=== PATIENT | female | born 1985 | race Caucasian/White ===

== ENCOUNTER 2021-06-20 06:29 | Observation (INO) ==
[2021-06-20] MEDS ORDERED: THIAMINE HCL 200 MG in SODIUM CHLORIDE 0.9% 50 ML IV STA (07:22)
[2021-06-20] MEDS ORDERED: FOLIC ACID 1 MG in SYRINGE 9.8 ML IV STA (07:22)
--- NOTE | 2021-06-20 07:28 | Emergency Department Note ---
Impression & Plan Abdominal pain, Alcohol abuse, Alcoholic hepatitis, Alcoholic pancreatitis ED Provider Note NAME: CARMEN BOUCHER AGE: 36 SEX: F : 1985 ARRIVES VIA: Walk-In INFORMANT: Patient ED PROVIDER(S): Zachary Wallace DO CHIEF COMPLAINT: coughing and diffuse body aches HPI: Patient is a 36-year-old alcoholic who presents the ER for cough and upper respiratory symptoms. She denies any shortness of breath. She notes when she coughs her whole body hurts including the sides of her chest and sides of her belly. She notes that her belly has gotten a little bit more swollen than it usually is. She denies any focal belly pain. She did have some vomiting this past Thursday and Thursday but that has resolved. No diarrhea. Normal bowel movements. No vaginal bleeding or vaginal discharge. No other exacerbating or remitting factors. ROS: See above HPI for pertinent positives & negatives. A total of 10 systems reviewed and were otherwise negative. PAST MEDICAL HISTORY:See Below PAST SURGICAL HISTORY:See Below FAMILY HISTORY:See Below SOCIAL HISTORY:See Below HOME MEDICATIONS:See Below ALLERGIES:See Below VITALS:See Below PHYSICAL EXAMINATION: GENERAL: Sitting up in bed, alert, well appearing, well nourished, no acute distress, nontoxic EYE EXAM: normal conjunctiva. PERRL and EOM's grossly intact. OROPHARYNX: no exudate, no erythema, lips, buccal mucosa, and tongue normal and mucous membranes are moist NECK: supple, no nuchal rigidity, no adenopathy, non-tender LUNGS: Clear to auscultation. Normal chest wall mechanics HEART: no murmurs, S1 normal and S2 normal ABDOMEN: abdomen soft, non-tender, normo-active bowel sounds, distended abdomen UPPER EXTREMITIES: upper extremities are grossly normal. LOWER EXTREMITIES: No pitting edema. NEURO EXAM: Normal sensorium, cranial nerves II-XII grossly intact, normal speech, no gross weakness of arms, no gross weakness of legs. MEDICAL DECISION MAKING: Patient is a 36-year-old female who presents the ER for abdominal pain. IV was established blood work was obtained. Labs show mild leukocytosis of 10,000. No significant anemia. INR was unremarkable. BMP with a hyponatremia 127 and a mild hypokalemia 2.8. LFTs were elevated at 100. Magnesium was slightly low at 1.6. Bilirubin was significantly elevated at 8. Lipase was elevated at 3000. was negative. Covid was negative. CT abdomen pelvis showed pancreatitis. Patient was given IV fluids IV morphine. She was updated bedside. Discussed with the hospitalist admitted for further work-up. Discussed with Pt concerning signs and symptoms to watch out for. Pt was instructed to follow up with their PCP and discussed with the patient their option to return to the ED at anytime for persistent or worsening symptoms. The appropriate anticipatory guidance and out-patient management, including indications for return to the emergency department, were explained at length to the patient and understood. Triage Nursing notes reviewed. Limited review of prior medical records performed Vital Signs: reviewed and remarkable for tachy Differential diagnosis: Differential diagnoses includes but is not limited to gastritis, peptic ulcer disease, GERD, gallbladder disease, pancreatitis, small bowel obstruction, acute coronary syndrome, pericarditis, ischemic bowel, irritable bowel disease, irritable bowel syndrome, appendicitis, diverticulitis, malignancy, hernia, urinary tract infection, torsion, /ectopic (if female), perforation, trauma, infectious. ER treatment provided: See below Diagnostics interpreted by me: ECG: none Cardiac Monitoring: An order was placed for continuous cardiac monitoring. The monitor shows a rate of 82 with sinus rhythm. Laboratory studies: As stated above and show below. Imaging studies: CT abdomen pelvis as discussed above Consultation(s): Discussed with the hospitalist for further evaluation Procedures: none Critical Care: None Past Med/Surg History Medical History ADD (attention deficit disorder) Alcohol abuse Anxiety Asthma Surgical History No significant past surgical history Family History Grandmother Breast cancer Grandfather Heart disease Social History (Updated 06/20/21 @ 12:20 by TIAN Branch) Smoking Status: Current some day smoker Tobacco Type: Cigarettes Hx Alcohol Use: Yes marital status: Single current occupational status: employed Feels Safe at Home: Yes Allergies Allergies Allergy/AdvReac Type Severity Reaction Status Date / Time Penicillins Allergy Unknown Unknown Verified 06/24/20 13:04 Home Meds Home Medications Medication Instructions Recorded Confirmed albuterol sulfate 90 mcg/actuation 1 inh INHALATION QID PRN 10/04/20 09/30/21 aerosol inhaler (ProAir HFA) bupropion HCl 300 mg 24 hr tablet, 300 mg PO QAM 06/24/20 06/20/21 extended release (Wellbutrin XL) buspirone 5 mg tablet 5 mg PO TID 06/24/20 06/20/21 budesonide-formoterol HFA 160 2 puff INHALATION BID 06/20/21 06/20/21 mcg-4.5 mcg/actuation aerosol inhaler (Symbicort) dextroamphetamine-amphetamine 5 mg 5 mg PO QDL 06/20/21 06/20/21 tablet (Adderall) dextroamphetamine-amphetamine 5 mg 10 mg PO DAILY 06/20/21 06/20/21 tablet (Adderall) ipratropium 0.5 mg-albuterol 3 mg 3 ml INHALATION Q4H PRN 06/20/21 06/20/21 (2.5 mg base)/3 mL nebulization soln ipratropium 20 mcg-albuterol 100 1 puff INHALATION BID 06/20/21 06/20/21 mcg/actuation mist for inhalation (Combivent Respimat) loratadine 10 mg tablet 10 mg PO DAILY 06/20/21 06/20/21 montelukast 10 mg tablet 10 mg PO HS 06/20/21 06/20/21 omeprazole 20 mg capsule,delayed 20 mg PO DAILY 06/20/21 06/20/21 release Results & Data (ED) Vital Signs Vital Signs - 24 hr 06/20/21 06:33 06/20/21 06:58 06/20/21 09:06 Temperature 37 C Temperature Source Temporal Artery Scan Pulse Rate 134 H 99 H Pulse Rate [Right Finger] Pulse Rate from SpO2 Sensor 98 H Respiratory Rate 20 20 Blood Pressure 113/82 133/89 Blood Pressure [Right Arm] Blood Pressure Mean 92 103 Blood Pressure Mean [Right Arm] Pulse Oximetry 99 99 Oxygen Delivery Method Room Air Room Air Sepsis Recent Fever Within 48 Hours No Sepsis New/Unexplained Change in Mental Status N/A Sepsis Action Taken by Nursing No Action Required 06/20/21 12:52 Temperature Temperature Source Pulse Rate Pulse Rate [Right Finger] 102 H Pulse Rate from SpO2 Sensor Respiratory Rate 20 Blood Pressure Blood Pressure [Right Arm] 132/95 Blood Pressure Mean Blood Pressure Mean [Right Arm] 107 Pulse Oximetry 99 Oxygen Delivery Method Room Air Sepsis Recent Fever Within 48 Hours Sepsis New/Unexplained Change in Mental Status Sepsis Action Taken by Nursing Laboratory Data Result diagrams: 06/20/21 07:47 06/20/21 07:47 Lab Results 06/20/21 06/20/21 06/20/21 Range/Units 07:29 07:47 07:47 WBC 10.96 H (4.8-10.8) K/uL RBC 4.30 (4.2-5.4) M/uL Hgb 15.4 (12.0-16.0) g/dL Hct 43.0 (37-47) % MCV 100.0 (80-100) fL MCH 35.8 H (25-34) pg MCHC 35.8 (32-36) g/dL RDW Std Deviation 44.5 (36.4-46.3) fL RDW Coeff of Yasmine 12.3 (11.5-14.5) % Plt Count 116 L (130-400) K/uL MPV 11.5 H (7.4-10.4) fL Immature Gran % (Auto) 0.3 % Neut % (Auto) 77.4 % Lymph % (Auto) 11.4 % [place] % (Auto) 10.2 % Eos % (Auto) 0.5 % Baso % (Auto) 0.2 % Neut # (Auto) 8.49 H (1.4-6.5) K/uL Lymph # (Auto) 1.25 (1.2-3.4) K/uL [place] # (Auto) 1.12 H (0.11-0.59) K/uL Eos # (Auto) 0.05 (0-0.5) K/uL Baso # (Auto) 0.02 (0-0.2) K/uL Immature Gran # (Auto) 0.03 H (0.00-0.02) K/uL PT (9.0-12.0) Seconds INR (0.9-1.1) APTT (21.0-31.0) Seconds PTT Ratio Sodium 127 L (136-145) mmol/L Potassium 2.8 L (3.5-5.1) mmol/L Chloride 88 L (98-107) mmol/L Carbon Dioxide 28 (21-32) mmol/L Anion Gap 12.0 H (3-11) BUN 5 L (7-18) mg/dl Creatinine 0.93 (0.6-1.2) mg/dl Est Cr Clr Drug Dosing 80.9 ml/min Est GFR ( Amer) 92.9 ml/min Est GFR (Non-Af Amer) 80.2 ml/min BUN/Creatinine Ratio 5.0 L (10-20) Glucose 180 H (70-99) mg/dl Calcium 8.7 (8.5-10.1) mg/dl Magnesium (1.8-2.4) mg/dl Total Bilirubin 8.7 H (0.2-1) mg/dl AST 194 H (15-37) U/L ALT 99 H (12-78) U/L Alkaline Phosphatase 192 H (45-117) U/L Total Protein 7.5 (6.4-8.2) gm/dl Albumin 3.0 L (3.4-5.0) gm/dl Globulin 4.5 H (2.5-4.0) gm/dl Albumin/Globulin Ratio 0.7 L (0.9-2) Lipase 3016 H (73-393) U/L Urine Color Urine Appearance (Clear) Urine pH (4.5-7.5) Ur Specific [place] (1.000-1.030) Urine Protein (Negative) Urine Glucose (UA) (Negative) Urine Ketones (Negative) Urine Blood (Negative) Urine Nitrite (Negative) Urine Bilirubin (Negative) Urine Urobilinogen (Negative) Ur Leukocyte Esterase (Negative) Urine RBC (0-4) /hpf Urine WBC (0-5) /hpf Ur Epithelial Cells (0-5) /lpf Urine Bacteria (Negative) POC Ur Test NEG (NEG) COVID-19 Eval Order SARS-CoV-2 (PCR) (Negative) 06/20/21 06/20/21 06/20/21 Range/Units 07:47 07:47 07:47 WBC (4.8-10.8) K/uL RBC (4.2-5.4) M/uL Hgb (12.0-16.0) g/dL Hct (37-47) % MCV (80-100) fL MCH (25-34) pg MCHC (32-36) g/dL RDW Std Deviation (36.4-46.3) fL RDW Coeff of Yasmine (11.5-14.5) % Plt Count (130-400) K/uL MPV (7.4-10.4) fL Immature Gran % (Auto) % Neut % (Auto) % Lymph % (Auto) % [place] % (Auto) % Eos % (Auto) % Baso % (Auto) % Neut # (Auto) (1.4-6.5) K/uL Lymph # (Auto) (1.2-3.4) K/uL [place] # (Auto) (0.11-0.59) K/uL Eos # (Auto) (0-0.5) K/uL Baso # (Auto) (0-0.2) K/uL Immature Gran # (Auto) (0.00-0.02) K/uL PT 11.6 (9.0-12.0) Seconds INR 1.2 H (0.9-1.1) APTT 25.7 (21.0-31.0) Seconds PTT Ratio 1.0 Sodium (136-145) mmol/L Potassium (3.5-5.1) mmol/L Chloride (98-107) mmol/L Carbon Dioxide (21-32) mmol/L Anion Gap (3-11) BUN (7-18) mg/dl Creatinine (0.6-1.2) mg/dl Est Cr Clr Drug Dosing ml/min Est GFR ( Amer) ml/min Est GFR (Non-Af Amer) ml/min BUN/Creatinine Ratio (10-20) Glucose (70-99) mg/dl Calcium (8.5-10.1) mg/dl Magnesium 1.6 L (1.8-2.4) mg/dl Total Bilirubin (0.2-1) mg/dl AST (15-37) U/L ALT (12-78) U/L Alkaline Phosphatase (45-117) U/L Total Protein (6.4-8.2) gm/dl Albumin (3.4-5.0) gm/dl Globulin (2.5-4.0) gm/dl Albumin/Globulin Ratio (0.9-2) Lipase (73-393) U/L Urine Color Urine Appearance (Clear) Urine pH (4.5-7.5) Ur Specific [place] (1.000-1.030) Urine Protein (Negative) Urine Glucose (UA) (Negative) Urine Ketones (Negative) Urine Blood (Negative) Urine Nitrite (Negative) Urine Bilirubin (Negative) Urine Urobilinogen (Negative) Ur Leukocyte Esterase (Negative) Urine RBC (0-4) /hpf Urine WBC (0-5) /hpf Ur Epithelial Cells (0-5) /lpf Urine Bacteria (Negative) POC Ur Test (NEG) COVID-19 Eval Order SARS-CoV-2 (PCR) (Negative) 06/20/21 06/20/21 06/20/21 Range/Units 07:48 11:14 11:14 WBC (4.8-10.8) K/uL RBC (4.2-5.4) M/uL Hgb (12.0-16.0) g/dL Hct (37-47) % MCV (80-100) fL MCH (25-34) pg MCHC (32-36) g/dL RDW Std Deviation (36.4-46.3) fL RDW Coeff of Yasmine (11.5-14.5) % Plt Count (130-400) K/uL MPV (7.4-10.4) fL Immature Gran % (Auto) % Neut % (Auto) % Lymph % (Auto) % [place] % (Auto) % Eos % (Auto) % Baso % (Auto) % Neut # (Auto) (1.4-6.5) K/uL Lymph # (Auto) (1.2-3.4) K/uL [place] # (Auto) (0.11-0.59) K/uL Eos # (Auto) (0-0.5) K/uL Baso # (Auto) (0-0.2) K/uL Immature Gran # (Auto) (0.00-0.02) K/uL PT (9.0-12.0) Seconds INR (0.9-1.1) APTT (21.0-31.0) Seconds PTT Ratio Sodium (136-145) mmol/L Potassium (3.5-5.1) mmol/L Chloride (98-107) mmol/L Carbon Dioxide (21-32) mmol/L Anion Gap (3-11) BUN (7-18) mg/dl Creatinine (0.6-1.2) mg/dl Est Cr Clr Drug Dosing ml/min Est GFR ( Amer) ml/min Est GFR (Non-Af Amer) ml/min BUN/Creatinine Ratio (10-20) Glucose (70-99) mg/dl Calcium (8.5-10.1) mg/dl Magnesium (1.8-2.4) mg/dl Total Bilirubin (0.2-1) mg/dl AST (15-37) U/L ALT (12-78) U/L Alkaline Phosphatase (45-117) U/L Total Protein (6.4-8.2) gm/dl Albumin (3.4-5.0) gm/dl Globulin (2.5-4.0) gm/dl Albumin/Globulin Ratio (0.9-2) Lipase (73-393) U/L Urine Color [place] Urine Appearance Cloudy A (Clear) Urine pH (4.5-7.5) Ur Specific [place] 1.022 (1.000-1.030) Urine Protein (Negative) Urine Glucose (UA) (Negative) Urine Ketones (Negative) Urine Blood (Negative) Urine Nitrite (Negative) Urine Bilirubin (Negative) Urine Urobilinogen (Negative) Ur Leukocyte Esterase (Negative) Urine RBC 0-4 (0-4) /hpf Urine WBC 10-30 H (0-5) /hpf Ur Epithelial Cells 5-10 H (0-5) /lpf Urine Bacteria 3+ H (Negative) POC Ur Test (NEG) COVID-19 Eval Order Covid19 at [facility] SARS-CoV-2 (PCR) NEGATIVE (Negative) Administered Medications Discontinued Medications Thiamine HCl 200 mg/ Sodium (Chloride) 52 mls @ 208 mls/hr IV NOW STA Stop: 06/20/21 07:36 Last Infusion: 06/20/21 09:20 Dose: 0 mls/hr Documented by: [id number] Admin: 06/20/21 08:51 Dose: 208 mls/hr Documented by: [id number] Folic Acid 1 mg/ Syringe 10 mls @ 5 mls/min IV NOW STA Stop: 06/20/21 07:23 Last Admin: 06/20/21 08:51 Dose: 5 mls/min Documented by: [id number] Ioversol (Optiray 320 100ml) 94 ml IV ONCE ONE Stop: 06/20/21 08:51 Last Admin: 06/20/21 08:51 Dose: 94 ml Documented by: [id number] Ketorolac Tromethamine (Ketorolac Tromethamine 15 Mg/Ml Vial) 10 mg IV NOW ONE Stop: 06/20/21 07:55 Last Admin: 06/20/21 08:52 Dose: 10 mg Documented by: [id number] Imaging Data Radiologist's Impression: Abdomen/Pelvis CT 06/20/21 07:22 CT abd pelvis IV con only CLINICAL HISTORY: abd pain COMPARISON STUDY: None. TECHNIQUE: A dose lowering technique was utilized adhering to the principles of ALARA. CT DOSE: 419.34 mGy.cm FINDINGS: Lower chest: Limited evaluation of lung bases shows no evidence of acute abnormalities.. Liver: Liver is mildly enlarged and shows diffuse decrease in attenuation of its parenchyma. No focal liver lesions or intrahepatic biliary dilatation is seen. Gallbladder: Is fluid-filled with mild diffuse mucosal enhancement. No pericholecystic edema is seen. Spleen: Normal in size and attenuation. Pancreas: Pancreatic folia are preserved however there is peripancreatic fat stranding and focal areas of decreased attenuation within pancreatic body is seen concerning for acute pancreatitis and possible development of the pancreatic necrosis. There is 3.7 x 4.7 cm area of possible fluid collection adjacent to distal aspect of the pancreatic tail and abutting nondilated loop of small bowel. There is small amount of fluid/fat stranding is seen extending from the pancreas to the right and left paracolic gutter and pelvic region. Common bile duct is normal in caliber without intraluminal calculi. Adrenal glands: Unremarkable. Kidneys: There is symmetric renal cortical enhancement. The kidneys are normal in size without hydronephrosis. Pelvic viscera: Urinary bladder is partially decompressed which limits evaluation. Uterus and adnexa shows no evidence of acute abnormalities. Small amount of fluid is seen within cul-de-sac which could be normal findings in premenopausal female however associated fat stranding surrounding urinary bladder and rectum could represent fluid extending from the upper abdomen inflammatory process. Bowel: Small fat containing hiatal hernia is seen. Bowel loops are nondilated. Appendix shows normal morphology and gas filled. Few diverticuli of sigmoid colon are seen without definite evidence of diverticulitis at this time. Small bilateral fat-containing inguinal hernias are seen. Peritoneum: There is no intraperitoneal free air or abdominal ascites. Vasculature: The abdominal aorta is normal in course and caliber. Adenopathy: None. Skeletal structures: There is mild thoracolumbar scoliosis with minimal degenerative changes of the spine. No definite aggressive osseous lesions are seen. IMPRESSION: 1. Acute pancreatitis. Peripancreatic edema and focal fluid collection. Possible development of the pancreatic necrosis. Short-term follow-up with contrast-enhanced CT of the abdomen in 5-7 days is suggested. Common bile duct is not significantly dilated. No radiodense calculi are seen within common bile duct. 2. Hepatomegaly. Hepatic steatosis. 3. Small fat containing hiatal hernia. 4. Nondilated loops of bowel. Normal appendix. 5. Mild diverticulosis of sigmoid colon without evidence of diverticulitis. 6. The rest of findings as above. ACT 112: Negative or not required by law. The above report was generated using voice recognition software. It may contain grammatical, syntax or spelling errors. Electronically signed by: Mariela Diaz DO 06/20/2021 9:35 AM Chest X-Ray 06/20/21 07:22 XR chest 1V portable HISTORY: 36 years-old Female cough acute cough COMPARISON: Chest radiograph 04/06/2006 TECHNIQUE: Portable AP view of the chest FINDINGS: Cardiomediastinal and hilar silhouettes are within normal limits. No pneumothorax, pleural effusion, airspace consolidation or overt pulmonary edema. Bones of the chest appear grossly intact. Mild levoscoliosis of the upper thoracic spine. No acute fracture. Healed chronic appearing fracture of the posterolateral left sixth rib. IMPRESSION: No acute process. ACT 112: Negative or not required by law. The above report was generated using voice recognition software. It may contain grammatical, syntax or spelling errors. Electronically signed by: Bud Madera M.D. 06/20/2021 7:43 AM Discharge Plan Visit Data Chief Complaint: Abdominal Pain Stated Complaint: STOMACH PAIN,COUGH,CONGESTION ED Provider: Zachary Wallace Discharge Problem: Abdominal pain, Alcohol abuse, Alcoholic hepatitis, Alcoholic pancreatitis Forms Stand Alone Forms: [facility] [employer] Prescriptions Prescriptions: No Action buspirone [BuSpar] 5 mg Tablet 5 mg PO TID RF: 0 bupropion HCl [Wellbutrin XL] 300 mg Tablet Extended Release 24 Hr 300 mg PO QAM RF: 0 albuterol sulfate [ProAir HFA] 90 mcg/actuation Hfa Aerosol Inhaler 1 inh INHALATION QID PRN (Reason: sob) RF: 0 omeprazole 20 mg Capsule,Delayed Release(Dr/Ec) 20 mg PO DAILY RF: 0 montelukast 10 mg Tablet 10 mg PO HS RF: 0 dextroamphetamine-amphetamine [Adderall] 5 mg Tablet 10 mg PO DAILY RF: 0 dextroamphetamine-amphetamine [Adderall] 5 mg Tablet 5 mg PO QDL RF: 0 loratadine 10 mg Tablet 10 mg PO DAILY RF: 0 budesonide-formoterol [Symbicort] 160-4.5 mcg/actuation Hfa Aerosol Inhaler 2 puff INHALATION BID RF: 0 Combivent Respimat 20-100 mcg/actuation Mist 1 puff INHALATION BID RF: 0 ipratropium-albuterol [DuoNeb] 0.5 mg-3 mg(2.5 mg base)/3 mL Solution For Nebulization 3 ml INHALATION Q4H PRN (Reason: Shortness Of Breath) RF: 0 Referrals Referrals: PCP,NO [Physician] -
--- NOTE | 2021-06-20 07:44 | XRay Report ---
XR chest 1V portable HISTORY: 36 years-old Female cough acute cough COMPARISON: Chest radiograph 04/06/2006 TECHNIQUE: Portable AP view of the chest FINDINGS: Cardiomediastinal and hilar silhouettes are within normal limits. No pneumothorax, pleural effusion, airspace consolidation or overt pulmonary edema. Bones of the chest appear grossly intact. Mild levos coliosis of the upper thoracic spine. No acute fracture. Healed chronic appearing fracture of the pos terolateral left sixth rib. IMPRESSION: No acute process. ACT 112: Negative or not required by law. The above report was generated using voice recognition software. It may contain grammatical, syntax o r spelling errors. Electronically signed by: Bud Madera M.D. 06/20/2021 7:43 AM
[2021-06-20] MEDS ORDERED: KETOROLAC TROMETHAMINE 15 MG/ML VIAL IV ONE (07:54)
[2021-06-20 08:03] LABS: Basophils # (auto) 0.02 K/uL (0-0.2); Basophils % (auto) 0.2 %; Eosinophils # (auto) 0.05 K/uL (0-0.5); Eosinophils % (auto) 0.5 %; Hemoglobin 15.4 g/dL (12.0-16.0); Immature Granulocytes # (auto) 0.03 K/uL (0.00-0.02); Immature Granulocytes % (auto) 0.3 %; Lymphocytes # (auto) 1.25 K/uL (1.2-3.4); Lymphocytes % (auto) 11.4 %; Mean Corpuscular Hemoglobin 35.8 pg (25-34); Mean Corpuscular Hgb Conc 35.8 g/dL (32-36); Mean Platelet Volume 11.5 fL (7.4-10.4); Monocytes # (auto) 1.12 K/uL (0.11-0.59); Monocytes % (auto) 10.2 %; Neutrophils # (auto) 8.49 K/uL (1.4-6.5); Neutrophils % (auto) 77.4 %; Platelet Count 116 K/uL (130-400); RDW Coefficient of Variation 12.3 % (11.5-14.5); RDW Standard Deviation 44.5 fL (36.4-46.3); White Blood Count 10.96 K/uL (4.8-10.8)
[2021-06-20 08:11] LABS: INR 1.2 (0.9-1.1); Prothrombin Time 11.6 Seconds (9.0-12.0)
[2021-06-20 08:39] LABS: Albumin Globulin Ratio 0.7 (0.9-2); Bilirubin,Total 8.7 mg/dl (0.2-1); Calcium 8.7 mg/dl (8.5-10.1); Creatinine Clr Calc Pharmacy 80.9 ml/min; Est GFR (African American) 92.9 ml/min; Est GFR (Non-African American) 80.2 ml/min; Globulin 4.5 gm/dl (2.5-4.0); Potassium 2.8 mmol/L (3.5-5.1); Total Protein 7.5 gm/dl (6.4-8.2)
[2021-06-20 08:48] LABS: Appearance Urine Cloudy (Clear); Color Urine Orange; Specific Gravity Urine 1.022 (1.000-1.030)
[2021-06-20] MEDS ORDERED: OPTIRAY 320 100ml IV ONE (08:50)
[2021-06-20 08:54] LABS: Bacteria Urine 3+ (Negative); RBC Urine 0-4 /hpf (0-4)
--- NOTE | 2021-06-20 09:36 | CT Scan Report ---
CT abd pelvis IV con only CLINICAL HISTORY: abd pain COMPARISON STUDY: None. TECHNIQUE: A dose lowering technique was utilized adhering to the principles of ALARA. CT DOSE: 419.34 mGy.cm FINDINGS: Lower chest: Limited evaluation of lung bases shows no evidence of acute abnormalities.. Liver: Liver is mildly enlarged and shows diffuse decrease in attenuation of its parenchyma. No focal liver lesions or intrahepatic biliary dilatation is seen. Gallbladder: Is fluid-filled with mild diffuse mucosal enhancement. No pericholecystic edema is seen. Spleen: Normal in size and attenuation. Pancreas: Pancreatic folia are preserved however there is peripancreatic fat stranding and focal area s of decreased attenuation within pancreatic body is seen concerning for acute pancreatitis and possi ble development of the pancreatic necrosis. There is 3.7 x 4.7 cm area of possible fluid collection adjacent to distal aspect of the pancreatic t ail and abutting nondilated loop of small bowel. There is small amount of fluid/fat stranding is seen extending from the pancreas to the right and lef t paracolic gutter and pelvic region. Common bile duct is normal in caliber without intraluminal calculi. Adrenal glands: Unremarkable. Kidneys: There is symmetric renal cortical enhancement. The kidneys are normal in size without hydron ephrosis. Pelvic viscera: Urinary bladder is partially decompressed which limits evaluation. Uterus and adnexa shows no evidence of acute abnormalities. Small amount of fluid is seen within cul-de-sac which could be normal findings in premenopausal female however associated fat stranding surrounding urinary blad edith and rectum could represent fluid extending from the upper abdomen inflammatory process. Bowel: Small fat containing hiatal hernia is seen. Bowel loops are nondilated. Appendix shows normal morphology and gas filled. Few diverticuli of sigmoid colon are seen without definite evidence of div erticulitis at this time. Small bilateral fat-containing inguinal hernias are seen. Peritoneum: There is no intraperitoneal free air or abdominal ascites. Vasculature: The abdominal aorta is normal in course and caliber. Adenopathy: None. Skeletal structures: There is mild thoracolumbar scoliosis with minimal degenerative changes of the s pine. No definite aggressive osseous lesions are seen. IMPRESSION: 1. Acute pancreatitis. Peripancreatic edema and focal fluid collection. Possible development of the pancreatic necrosis. Short-term follow-up with contrast-enhanced CT of the abdomen in 5-7 days is sug gested. Common bile duct is not significantly dilated. No radiodense calculi are seen within common b ile duct. 2. Hepatomegaly. Hepatic steatosis. 3. Small fat containing hiatal hernia. 4. Nondilated loops of bowel. Normal appendix. 5. Mild diverticulosis of sigmoid colon without evidence of diverticulitis. 6. The rest of findings as above. ACT 112: Negative or not required by law. The above report was generated using voice recognition software. It may contain grammatical, syntax o r spelling errors. Electronically signed by: Mariela Diaz DO 06/20/2021 9:35 AM
[2021-06-20] MEDS ORDERED: MoRPHine SULFATE 4 MG/ML 1 ML CARP\\VIAL IV STA (10:00)
[2021-06-20] MEDS ORDERED: POTASSIUM CHLORIDE CRTAB 20 MEQ TABCR PO STA ×2 (10:13→19:15)
[2021-06-20 10:27] LABS: Partial Thromboplastin Time 25.7 Seconds (21.0-31.0)
--- NOTE | 2021-06-20 12:06 | History & Physical Report ---
Date of Service June 20, 2021 Assessment & Plan (1) Alcoholic hepatitis: (2) Alcoholic pancreatitis: Plan: -Admit to [facility] with telemetry -Patient presenting from home with reports of abdominal pain, nausea, vomiting x 3 days -In the ED, labs show transaminitis (T bili 8.7, AST 194, ALT 89, alk phos 192), lipase 3000 -CT ABD/pelvis shows acute pancreatitis. Peripancreatic edema and focal fluid collection. Possible development of the pancreatic necrosis. Short-term follow- up with contrast-enhanced CT of the abdomen in 5-7 days is suggested. -Currently hemodynamically stable, afebrile, minimal leukocytosis WBC 10.9K -Discriminant function score <32, no indication for steroids at this time -N.p.o., LR at 200 cc/hour, pain control -GI consult, case discussed with TIAN English (3) Alcohol abuse: Plan: -Patient reports a longstanding history of alcoholism, requiring hospitalization 4 to 5 years ago in [place] for alcohol hepatitis. Patient reports going to inpatient rehab following that hospitalization and had remained sober until last year during the COVID-19 pandemic. Patient reports another inpatient rehab stay in July 2020 and had been sober since. Patient reports celebrating the [employer] football game a couple of weeks ago and has been drinking daily since. She reports drinking a half a bottle of " 99 liquor" a day. -Last drink > 72 hours ago, not exhibiting signs of significant alcohol withdrawal at this time -Thiamine and folic acid -Alcohol withdrawal protocol with as needed Ativan (4) Electrolyte abnormality: Plan: -Na+ 127, K+ 2.8; check Mg+ -Due to alcohol abuse, GI losses with vomiting -Replace, follow electrolytes (5) Abnormal urinalysis: Plan: Suggest possible UTI -Start IV ceftriaxone, follow culture (6) Asthma: Plan: -No signs of acute exacerbation, continue home inhalers (7) ADD (attention deficit disorder): (8) Anxiety: Plan: -Continue home medications including bupropion, Adderall, buspirone -Patient reports difficulty in setting up outpatient psychiatry appointment - mental health liaison consulted (9) DVT prophylaxis: Plan: -SCDs History of Present Illness Chief Complaint: Abdominal pain, nausea, vomiting Primary Care Provider: Zaina Bunch MD 36-year-old female with PMH asthma, ADD, anxiety, alcoholism, and other problems listed below who presents the ED for evaluation abdominal pain, nausea, vomiting. Patient reports a longstanding history of alcoholism, requiring hospitalization 4 to 5 years ago in [place] for alcohol hepatitis. Patient reports going to inpatient rehab following that hospitalization and had remained sober until last year during the COVID-19 pandemic. Patient reports another inpatient rehab stay in July 2020 and had been sober since. Patient reports celebrating the [employer] football game a couple of weeks ago and has been drinking daily since. She reports drinking a half a bottle of " 99 liquor" a day. 3 days ago, she reports she developed generalized abdominal pain, nausea, vomiting. She denies hematemesis and coffee-ground emesis. No diarrhea, bright red bleeding per rectum, dark tarry stools. Patient stopped drinking when she started to get sick. She reports some mild intermittent tremors. No chest pain or shortness of breath. Reports a mild cough productive for clear sputum. No fevers or chills. Denies urinary symptoms. In the ED, labs show Na+ 127, K+ 2.8, transaminitis (T bili 8.7, AST 194, ALT 99, alk phos 192). CT ABD/pelvis shows acute pancreatitis. Peripancreatic edema and focal fluid collection. Possible development of the pancreatic necrosis. UA suggest possible UTI. Patient was given IV folic acid, IV ketorolac, IV morphine, IV thiamine. Allergies Allergy/AdvReac Type Severity Reaction Status Date / Time Penicillins Allergy Unknown Unknown Verified 06/24/20 13:04 Home Medications Medication Instructions Recorded Confirmed Type albuterol sulfate 90 mcg/actuation 1 inh INHALATION QID PRN 06/24/20 06/20/21 History aerosol inhaler (ProAir HFA) bupropion HCl 300 mg 24 hr tablet, 300 mg PO QAM 06/24/20 06/20/21 History extended release (Wellbutrin XL) buspirone 5 mg tablet 5 mg PO TID 06/24/20 06/20/21 History budesonide-formoterol HFA 160 2 puff INHALATION BID 06/20/21 06/20/21 History mcg-4.5 mcg/actuation aerosol inhaler (Symbicort) dextroamphetamine-amphetamine 5 mg 5 mg PO QDL 06/20/21 06/20/21 History tablet (Adderall) dextroamphetamine-amphetamine 5 mg 10 mg PO DAILY 06/20/21 06/20/21 History tablet (Adderall) ipratropium 0.5 mg-albuterol 3 mg 3 ml INHALATION Q4H PRN 06/20/21 06/20/21 History (2.5 mg base)/3 mL nebulization soln ipratropium 20 mcg-albuterol 100 1 puff INHALATION BID 06/20/21 06/20/21 History mcg/actuation mist for inhalation (Combivent Respimat) loratadine 10 mg tablet 10 mg PO DAILY 06/20/21 06/20/21 History montelukast 10 mg tablet 10 mg PO HS 06/20/21 06/20/21 History omeprazole 20 mg capsule,delayed 20 mg PO DAILY 06/20/21 06/20/21 History release Past Med/Surg History Medical History ADD (attention deficit disorder) Alcohol abuse Anxiety Asthma Surgical History No significant past surgical history Family History Grandmother Breast cancer Grandfather Heart disease Social History (Updated 06/20/21 @ 12:20 by TIAN Branch) Smoking Status: Current some day smoker Tobacco Type: Cigarettes Second Hand Exposure: No; Do You Dip or Chew Tobacco: No; Tobacco Cessation Education Requested by Patient: No Hx Alcohol Use: Yes Alcohol type: hard liquor Hx Substance Use: No Preferred Language: Welsh 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 Ability: Effective Inlayer Required: No Beliefs That Will Affect Care: None marital status: Single Current Living Situation: Significant Other current occupational status: employed Other Information That Helps Us Care for You: No Feels Safe at Home: Yes Safety Concerns: Feels Safe At This Time Assistive Devices: Glasses Review of Systems Review of Systems: ROS per HPI, all other systems reviewed and negative Physical Exam Constitutional: WD/WN, vitals as above Eyes: + scleral abnormality (Sclera icteric) and PERRL; no conjunctival abnormality ENMT: external ear and nose normal, oropharynx normal Respiratory: normal respiratory effort, lungs clear to auscultation Cardiovascular: Rate/Rhythm: regular rhythm and + tachycardic Vessels: normal peripheral pulses Extremities: no edema Gastrointestinal (Abdomen): Inspection/Auscultation: normal bowel sounds Percussion/Palpation: + abdomen tender (Epigastric) and abdomen soft; no hepatosplenomegaly Musculoskeletal: no cyanosis or clubbing, extremities motor strength 5/5 Skin: no rashes, warm and dry Neurologic: PERRL, EOMI, accommodation nl, no face palsy, no dysarthria Psychiatric: A+Ox3, euthymic affect Results & Data Results & Data ([facility]) Vital Signs (Past 12 Hours) Vital Signs Temp Pulse Resp BP Pulse Ox 06/20/21 09:06 99 H 20 133/89 99 06/20/21 06:33 37 C 134 H 20 113/82 99 Laboratory Results Short CBC 06/20/21 06/20/21 06/20/21 Range/Units 07:47 07:47 07:47 WBC 10.96 H (4.8-10.8) K/uL Hgb 15.4 (12.0-16.0) g/dL Hct 43.0 (37-47) % Plt Count 116 L (130-400) K/uL PT 11.6 (9.0-12.0) Seconds APTT 25.7 (21.0-31.0) Seconds Urine Nitrite (Negative) 06/20/21 Range/Units 07:48 WBC (4.8-10.8) K/uL Hgb (12.0-16.0) g/dL Hct (37-47) % Plt Count (130-400) K/uL PT (9.0-12.0) Seconds APTT (21.0-31.0) Seconds Urine Nitrite (Negative) [facility] 06/20/21 07:47 Sodium 127 L Potassium 2.8 L Chloride 88 L Carbon Dioxide 28 BUN 5 L Creatinine 0.93 Glucose 180 H Calcium 8.7 Liver Function 06/20/21 Range/Units 07:47 Total Bilirubin 8.7 H (0.2-1) mg/dl AST 194 H (15-37) U/L ALT 99 H (12-78) U/L Alkaline Phosphatase 192 H (45-117) U/L Albumin 3.0 L (3.4-5.0) gm/dl Urine 06/20/21 Range/Units 07:48 Urine Color [place] Urine Appearance Cloudy A (Clear) Urine pH (4.5-7.5) Ur Specific [place] 1.022 (1.000-1.030) Urine Protein (Negative) Urine Glucose (UA) (Negative) Diagnostic Findings Abdomen/Pelvis CT 06/20/21 07:22 CT abd pelvis IV con only CLINICAL HISTORY: abd pain COMPARISON STUDY: None. TECHNIQUE: A dose lowering technique was utilized adhering to the principles of ALARA. CT DOSE: 419.34 mGy.cm FINDINGS: Lower chest: Limited evaluation of lung bases shows no evidence of acute abnormalities.. Liver: Liver is mildly enlarged and shows diffuse decrease in attenuation of its parenchyma. No focal liver lesions or intrahepatic biliary dilatation is seen. Gallbladder: Is fluid-filled with mild diffuse mucosal enhancement. No pericholecystic edema is seen. Spleen: Normal in size and attenuation. Pancreas: Pancreatic folia are preserved however there is peripancreatic fat stranding and focal areas of decreased attenuation within pancreatic body is seen concerning for acute pancreatitis and possible development of the pancreatic necrosis. There is 3.7 x 4.7 cm area of possible fluid collection adjacent to distal aspect of the pancreatic tail and abutting nondilated loop of small bowel. There is small amount of fluid/fat stranding is seen extending from the pancreas to the right and left paracolic gutter and pelvic region. Common bile duct is normal in caliber without intraluminal calculi. Adrenal glands: Unremarkable. Kidneys: There is symmetric renal cortical enhancement. The kidneys are normal in size without hydronephrosis. Pelvic viscera: Urinary bladder is partially decompressed which limits evaluation. Uterus and adnexa shows no evidence of acute abnormalities. Small amount of fluid is seen within cul-de-sac which could be normal findings in premenopausal female however associated fat stranding surrounding urinary bladder and rectum could represent fluid extending from the upper abdomen inflammatory process. Bowel: Small fat containing hiatal hernia is seen. Bowel loops are nondilated. Appendix shows normal morphology and gas filled. Few diverticuli of sigmoid colon are seen without definite evidence of diverticulitis at this time. Small bilateral fat-containing inguinal hernias are seen. Peritoneum: There is no intraperitoneal free air or abdominal ascites. Vasculature: The abdominal aorta is normal in course and caliber. Adenopathy: None. Skeletal structures: There is mild thoracolumbar scoliosis with minimal degenerative changes of the spine. No definite aggressive osseous lesions are seen. IMPRESSION: 1. Acute pancreatitis. Peripancreatic edema and focal fluid collection. Possible development of the pancreatic necrosis. Short-term follow-up with contrast-enhanced CT of the abdomen in 5-7 days is suggested. Common bile duct is not significantly dilated. No radiodense calculi are seen within common bile duct. 2. Hepatomegaly. Hepatic steatosis. 3. Small fat containing hiatal hernia. 4. Nondilated loops of bowel. Normal appendix. 5. Mild diverticulosis of sigmoid colon without evidence of diverticulitis. 6. The rest of findings as above. ACT 112: Negative or not required by law. The above report was generated using voice recognition software. It may contain grammatical, syntax or spelling errors. Electronically signed by: Mariela Diaz DO 06/20/2021 9:35 AM Chest X-Ray 06/20/21 07:22 XR chest 1V portable HISTORY: 36 years-old Female cough acute cough COMPARISON: Chest radiograph 04/06/2006 TECHNIQUE: Portable AP view of the chest FINDINGS: Cardiomediastinal and hilar silhouettes are within normal limits. No pneumothorax, pleural effusion, airspace consolidation or overt pulmonary edema. Bones of the chest appear grossly intact. Mild levoscoliosis of the upper thoracic spine. No acute fracture. Healed chronic appearing fracture of the posterolateral left sixth rib. IMPRESSION: No acute process. ACT 112: Negative or not required by law. The above report was generated using voice recognition software. It may contain grammatical, syntax or spelling errors. Electronically signed by: Bud Madera M.D. 06/20/2021 7:43 AM Code Status & VTE Plan VTE Prophylaxis Plan VTE Prophylaxis will be ordered: Yes Supervising Physician Co-Signing Physician Notes Patient seen and examined by me, care coordinated with TIAN Branch, please refer to her note above for further detail. 36 y/o female with hx of asthma, ADD, anxiety, alcoholism, who presents for evaluation of abdominal pain, nausea, vomiting. Found to have acute alcoholic pancreatitis/hepatitis. Currently laying in bed, in no acute distress. She does report abdominal pain, she is awake alert and answering questions appropriately. She is tachycardic, lungs are clear to auscultation b/l without any wheezing rhonchi or crackles. Abdomen is tender to palpation in upper quadrants bilaterally, otherwise abdomen is soft with positive bowel sounds. There is no lower extremity edema. She moves extremities spontaneously. In the ED, labs show Na+ 127, K+ 2.8, transaminitis (T bili 8.7, AST 194, ALT 99, alk phos 192). CT ABD/pelvis shows acute pancreatitis. Peripancreatic edema and focal fluid collection. Possible development of the pancreatic necrosis. UA suggest possible UTI. Patient was given IV folic acid, IV ketorolac, IV morphine, IV thiamine. Seen by GI, plan for ERCP. Cont. IV LR at 200 cc/hr., NPO for now. Pain control, antiemetics, Ativan for possible alcohol withdrawal. Rosalba Piper MD
[2021-06-20] MEDS ORDERED: POTASSIUM CHLORIDE CRTAB 20 MEQ TABCR PO SCH (13:30)
[2021-06-20] MEDS ORDERED: MoRPHine SULFATE 4 MG/ML 1 ML CARP\\VIAL IV SCH (13:30)
--- NOTE | 2021-06-20 14:32 | Gastrointestinal Consultation ---
Date of Consultation June 20, 2021 Assessment & Plan (1) Alcoholic hepatitis: No steroid tx for ETOH hepatitis as contraindicated with pancreatitis. Alcohol abstention. Watch LFTs, INR daily (2) Alcoholic pancreatitis: NPO, except sips of water/ice chips LR at 200/hr. MRCP to r/o bile duct obstruction. Complete, permanent ETOH abstention. Will continue to follow. Supervising Physician Co-Signing Physician Notes Attg add: I interviewed and examined pt, reviewed chart and labs. Pt with nausea, vomiting, abdominal pain. Labs show mild hemoconcentration, increased lipase, bili 8, AST> ALT, mild increased AP. Imaging shows fatty liver, no navid dil, diffuse peripanc edema with PPFN at tail. On exam, she is tremulous, mucous membranes mildly dry, abd tender. Alc pancreatitis/hepatitis Rec aggressive hydration, MRCP, bowel rest, repeat CT in 1 week. I suspect that she has been drinking for longer than she admits, as she appears to be going into withdrawal -- need for absolute alcohol cessation discussed. History of Present Illness Reason for Consultation: ETOH hepatitis/pancreatitis Requesting Physician: TIAN Branch; Dr. Mal Piper Attending Physician: Dr. Piper History of Present Illness Ms. Kathie Burr is a 36 yr old female pt of Dr. Zaina Bunch with a hx of increased alcohol intake who presented to the ED early today for abdominal pain, nausea, poor appetite. She had been drinking large amts of alcohol recently (most recent drink was this Thursday). On arrival, CT with acute pancreatitis, possible necrosis. Lipase is elevated >3000. Liver enzymes are significantly elevated T bili 8.7, AST 194, ALT 99, Alk Phos 192. She is awake, alert, oriented resting in bed in the ED. She has a very mild tremor of her hands, no asterix, + mild jaundice. Allergies Allergy/AdvReac Type Severity Reaction Status Date / Time Penicillins Allergy Unknown Unknown Verified 06/24/20 13:04 Home Medications Medication Instructions Recorded Confirmed Type albuterol sulfate 90 mcg/actuation 1 inh INHALATION QID PRN 06/24/20 06/20/21 History aerosol inhaler (ProAir HFA) bupropion HCl 300 mg 24 hr tablet, 300 mg PO QAM 06/24/20 06/20/21 History extended release (Wellbutrin XL) buspirone 5 mg tablet 5 mg PO TID 06/24/20 06/20/21 History budesonide-formoterol HFA 160 2 puff INHALATION BID 06/20/21 06/20/21 History mcg-4.5 mcg/actuation aerosol inhaler (Symbicort) dextroamphetamine-amphetamine 5 mg 5 mg PO QDL 06/20/21 06/20/21 History tablet (Adderall) dextroamphetamine-amphetamine 5 mg 10 mg PO DAILY 06/20/21 06/20/21 History tablet (Adderall) ipratropium 0.5 mg-albuterol 3 mg 3 ml INHALATION Q4H PRN 06/20/21 06/20/21 History (2.5 mg base)/3 mL nebulization soln ipratropium 20 mcg-albuterol 100 1 puff INHALATION BID 06/20/21 06/20/21 History mcg/actuation mist for inhalation (Combivent Respimat) loratadine 10 mg tablet 10 mg PO DAILY 06/20/21 06/20/21 History montelukast 10 mg tablet 10 mg PO HS 06/20/21 06/20/21 History omeprazole 20 mg capsule,delayed 20 mg PO DAILY 06/20/21 06/20/21 History release Patient History Medical History ADD (attention deficit disorder) Alcohol abuse Anxiety Asthma Surgical History No significant past surgical history Family History Grandmother Breast cancer Grandfather Heart disease Social History (Updated 06/20/21 @ 12:20 by TIAN Branch) Smoking Status: Current some day smoker Tobacco Type: Cigarettes Hx Alcohol Use: Yes marital status: Single current occupational status: employed Feels Safe at Home: Yes Review of Systems 2 Review of Systems: ROS: Gen: Denies weakness, fevers, weight loss Eyes: No eye redness, or pain, no recent vision changes Resp: No SOB, no cough Cardio: No palpitations/irregular beats, no chest pain GI: As per HPI, otherwise (-) : Denies pain on urination Skin: No jaundice, itching or new rashes Physical Exam Constitutional: well developed, cooperative and + overweight Eyes: PERRL, conjunctivae normal, anicteric sclerae Respiratory: normal respiratory effort, lungs clear to auscultation Cardiovascular: RRR, no murmur, no edema Gastrointestinal (Abdomen): Percussion/Palpation: + abdomen tender (Mild diffuse adbdominal tenderness. No signs of acute abdomen.) and abdomen soft hypoactive BS Skin: no rashes, warm and dry normal turgor and + pallor Neurologic: PERRL, EOMI, accommodation nl, no face palsy, no dysarthria awake; not confused mild tremor of the hands; no asterixes Psychiatric: A+Ox3, euthymic affect Orientation: alert, oriented x 3 and c ooperative Results & Data ([facility]) Vital Signs (Past 12 Hours) Vital Signs Temp Pulse Pulse Resp BP BP Pulse Ox 06/20/21 13:22 106 H 20 125/88 99 06/20/21 12:52 102 H 20 132/95 99 06/20/21 09:06 99 H 20 133/89 99 06/20/21 06:33 37 C 134 H 20 113/82 99 Laboratory Results WBC 10.9, Hb 15.4, Hct 43, Plts 116, INR 1.2, Na 127, K 2.8, BUN 5, Cr 0.93 Diagnostic Findings CTAP with IV contrast on 06/20/21: 1. Acute pancreatitis. Peripancreatic edema and focal fluid collection. Possible development of the pancreatic necrosis. Short-term follow-up with contrast-enhanced CT of the abdomen in 5-7 days is suggested. Common bile duct is not significantly dilated. No radiodense calculi are seen within common bile duct. 2. Hepatomegaly. Hepatic steatosis. 3. Small fat containing hiatal hernia. 4. Nondilated loops of bowel. Normal appendix. 5. Mild diverticulosis of sigmoid colon without evidence of diverticulitis. 6. The rest of findings as above. (1) Alcoholic hepatitis Ascites presence: unspecified Qualified Code(s): K70.10 - Alcoholic hepatitis without ascites (2) Alcoholic pancreatitis Acute pancreatitis complication: unspecified Chronicity: acute Qualified Code(s): K85.20 - Alcohol induced acute pancreatitis without necrosis or infection
[2021-06-20] MEDS ORDERED: ATIVAN IV ALCOHOL WITHDRAWL IV PRN (15:45)
[2021-06-20] MEDS ORDERED: LORazepam 3 MG/6 ML VIAL IV PRN (15:45)
[2021-06-20] MEDS: POTASSIUM CHLORIDE / WTR 10 MEQ/100 ML PLCT IV SCH ×4 (15:46→19:12)
[2021-06-20] MEDS: LACTATED RINGER'S 1,000 ML IV SCH ×3 (15:46→23:35)
[2021-06-20] MEDS ORDERED: FLUARIX QUADRIVALENT 0.5 ML SYR IM ONE (16:52)
[2021-06-20] MEDS: buPROPion XL 300 MG TABCR PO SCH (17:29)
[2021-06-20] MEDS: FOLIC ACID 1 MG TAB PO SCH (17:29)
[2021-06-20] MEDS: THIAMINE HCL 100 MG TAB PO SCH (17:29)
[2021-06-20] MEDS: busPIRone 5 MG TAB PO SCH ×2 (17:30→20:39)
[2021-06-20] MEDS: cefTRIAXone SODIUM 1,000 MG in DEXTROSE 5% 50 ML IV SCH (18:16)
[2021-06-20] MEDS: MAGNESIUM SULFATE / D5W 1 GM/100 ML BAG IV SCH ×2 (18:17→18:58)
[2021-06-20 19:13] LABS: BUN Creatinine Ratio 8.5 (10-20); Calcium 8.1 mg/dl (8.5-10.1); Creatinine Clr Calc Pharmacy 100.3 ml/min; Potassium 3.1 mmol/L (3.5-5.1)
[2021-06-20] MEDS ORDERED: SODIUM PHOSPHATE 3 MMOL/1 ML 5 ML VIAL IV ONE (20:24)
[2021-06-20] MEDS: MoRPHine SULFATE 4 MG/ML 1 ML CARP\\VIAL IV PRN (20:31)
[2021-06-20] MEDS: Albuterol HFA 8 GM Inhaler (Combivent Respimat P&T Subs) INH SCH (20:33)
[2021-06-20] MEDS: MONTELUKAST SODIUM 10 MG TABLET PO SCH (20:39)
[2021-06-20] MEDS ORDERED: SODIUM PHOSPHATE 15 MMOL in SODIUM CHLORIDE 0.9% 250 ML IV ONE (21:00)
[2021-06-20] MEDS ORDERED: IPRATROPIUM BROMIDE/ALBUTEROL respimat INH INH SCH (21:00)
--- NOTE | 2021-06-20 21:05 | Magnetic Resonance Report ---
MR MRCP CLINICAL INDICATION: MN ^npo 1500 ^elevated LFTs, r/o bile duct obstruction COMPARISON: None available at the time of this dictation. TECHNIQUE: Multiplanar multisequence images were obtained of the abdomen with and without the adminis tration of contrast. FINDINGS: Lower chest: No acute abnormality Liver: Unremarkable. No focal lesions are seen. Gallbladder and biliary tree: No calcified gallstones. Normal caliber wall. Common bile duct measures 7 mm in diameter. Pancreas: Pancreatic edema surrounding fluid is seen, compatible with findings on prior CT. Spleen: Unremarkable. Adrenals: Unremarkable. Kidneys and ureters: Unremarkable. Bowel: Unremarkable. Lymph nodes Retroperitoneal: Unremarkable. Mesenteric: Unremarkable. Peritoneum: Peripancreatic fluid collection and surrounding fat stranding is noted, similar to appear ance on prior CT. Vessels: Unremarkable. Abdominal wall: Unremarkable. Bones: Unremarkable. IMPRESSION: 1. Findings of acute pancreatitis, comparable to prior CT. 2. Dilation of the common bile duct to 7 mm without evidence of obstructing stone. ACT 112: Negative or not required by law. Electronically signed by: Carlos Sullivan M.D. 06/20/2021 9:04 PM
[2021-06-20] MEDS: Ipratropium HFA Inhaler (Combivent Respimat P&T Subs) INH SCH (21:57)
[2021-06-20] MEDS: MELATONIN 3 MG TAB PO PRN (22:35)
[2021-06-21] MEDS: MoRPHine SULFATE 4 MG/ML 1 ML CARP\\VIAL IV PRN ×2 (02:40→08:37)
[2021-06-21] MEDS: LACTATED RINGER'S 1,000 ML IV SCH ×4 (03:43→20:31)
--- NOTE | 2021-06-21 07:34 | Hospitalist Progress Note ---
Date of Service June 21, 2021 Assessment & Plan (1) Alcoholic hepatitis: (2) Alcoholic pancreatitis: Plan: -Patient presenting from home with reports of abdominal pain, nausea, vomiting x 3 days -In the ED, labs show transaminitis (T bili 8.7, AST 194, ALT 89, alk phos 192), lipase 3000 CT ABD/pelvis - shows acute pancreatitis. Peripancreatic edema and focal fluid collection. Possible development of the pancreatic necrosis. Short-term follow- up with contrast-enhanced CT of the abdomen in 5-7 days is suggested. MRCP - 1. Findings of acute pancreatitis, comparable to prior CT. 2. Dilation of the common bile duct to 7 mm without evidence of obstructing stone. - On admission, hemodynamically stable, afebrile, minimal leukocytosis WBC 10.9K -Discriminant function score <32, no indication for steroids at this time -N.p.o., LR at 200 cc/hour, will decrease to 100 cc/hr, pain control, antiemetics -GI consulted, appreciate their input (3) Alcohol abuse: Plan: Alcohol withdrawal - On admission , pt reports a longstanding history of alcoholism, requiring hospitalization 4 to 5 years ago in [place] for alcohol hepatitis. Patient reports going to inpatient rehab following that hospitalization and had remained sober until last year during the COVID-19 pandemic. Patient reports another inpatient rehab stay in July 2020 and had been sober since. Patient reports celebrating the [employer] football game a couple of weeks ago and has been drinking daily since. She reports drinking a half a bottle of " 99 liquor" a day. - On admission, not exhibiting signs of significant alcohol withdrawal - However on 06/21 patient tremulous, not answering questions appropriately, tells me that she sees her mother standing behind me, she is trying to leave the hospital, pulling her IVs out - Continue folic acid and thiamine, IV - Continue alcohol withdrawal protocol with Ativan, add Librium - One-on-one - Upgrade to PCU for close hemodynamic monitoring (4) Electrolyte abnormality: Plan: -Na+ 127, K+ 2.8; on admission -Due to alcohol abuse, GI losses with vomiting -Replace, follow electrolytes, monitor also mag and Phos (5) Abnormal urinalysis: Plan: Suggest possible UTI -Started IV ceftriaxone, follow culture (6) Asthma: Plan: -No signs of acute exacerbation, continue home inhalers (7) ADD (attention deficit disorder): (8) Anxiety: Plan: -Continue home medications including bupropion, buspirone, hold Adderall -Patient reports difficulty in setting up outpatient psychiatry appointment - mental health liaison consulted (9) DVT prophylaxis: Plan: -SCDs Admission and Anticipated Discharge Date Admission Date: June 20, 2021 Subjective Patient seen in follow-up of alcoholic pancreatitis/hepatitis, alcohol withdrawal Patient is actively withdrawing from alcohol she is tremulous, does not answer questions appropriately, says her mother is standing behind me Denies chest pain, shortness of breath Abdominal pain seems slightly improved, she was started on clear liquid diet by GI this AM Review of Systems Review of Systems: All systems reviewed & are unremarkable except as noted in Subjective Physical Exam Physical Exam: Constitutional: WD/WN, tremulous, not answering appropriately Eyes: + sclera icteric, EOMI, PERRL ENMT: external ear and nose normal, oropharynx normal Respiratory: normal respiratory effort, lungs clear to auscultation Cardiovascular: + tachycardic Extremities: no edema Gastrointestinal (Abdomen): Inspection/Auscultation: normal bowel sounds Percussion/Palpation: + abdomen tender (Epigastric), soft, + bowel sounds Musculoskeletal: extremities motor strength 5/5 Skin: no rashes, warm and dry Neurologic: PERRL, EOMI, no face palsy, no dysarthria Psychiatric: A+Ox3, euthymic affect Results & Data Results & Data ([facility]) Vital Signs (Past 12 Hours) Vital Signs Temp Pulse Pulse Resp BP Pulse Ox 06/21/21 07:26 97 H 06/21/21 07:08 37.1 C 95 H 16 100/67 94 06/21/21 03:06 37.4 C 61 16 109/72 95 06/20/21 23:56 95 H 06/20/21 23:20 37.4 C 95 H 20 107/72 98 Laboratory Results 06/21/21 06/21/21 06/21/21 Range/Units 07:46 07:46 07:46 WBC 8.64 (4.8-10.8) K/uL RBC 3.61 L (4.2-5.4) M/uL Hgb 12.6 (12.0-16.0) g/dL Hct 36.5 L (37-47) % MCV 101.1 H (80-100) fL MCH 34.9 H (25-34) pg MCHC 34.5 (32-36) g/dL RDW Std Deviation 46.2 (36.4-46.3) fL RDW Coeff of Yasmine 12.5 (11.5-14.5) % Plt Count 126 L (130-400) K/uL MPV 11.2 H (7.4-10.4) fL PT 11.1 (9.0-12.0) Seconds INR 1.1 (0.9-1.1) Sodium 133 L (136-145) mmol/L Potassium 3.9 D (3.5-5.1) mmol/L Chloride 100 (98-107) mmol/L Carbon Dioxide 25 (21-32) mmol/L Anion Gap 8.0 (3-11) BUN 4 L (7-18) mg/dl Creatinine 0.64 (0.6-1.2) mg/dl Est Cr Clr Drug Dosing 109.7 ml/min Est GFR ( Amer) 134.9 ml/min Est GFR (Non-Af Amer) 116.4 ml/min BUN/Creatinine Ratio 6.9 L (10-20) Glucose 83 (70-99) mg/dl Estimat Average Glucose mg/dl Hemoglobin A1c (4.5-5.6) % Lactate (0.4-2.0) mmol/L Calcium 8.2 L (8.5-10.1) mg/dl Phosphorus (2.5-4.9) mg/dl Magnesium 2.1 (1.8-2.4) mg/dl Total Bilirubin 5.6 H (0.2-1) mg/dl AST 92 H (15-37) U/L ALT 61 (12-78) U/L Alkaline Phosphatase 148 H (45-117) U/L Total Protein 6.3 L (6.4-8.2) gm/dl Albumin 2.4 L (3.4-5.0) gm/dl Globulin 3.9 (2.5-4.0) gm/dl Albumin/Globulin Ratio 0.6 L (0.9-2) Lipase 702 H (73-393) U/L SARS-CoV-2 (PCR) (Negative) 06/20/21 06/20/21 06/20/21 Range/Units 17:47 17:47 15:19 WBC (4.8-10.8) K/uL RBC (4.2-5.4) M/uL Hgb (12.0-16.0) g/dL Hct (37-47) % MCV (80-100) fL MCH (25-34) pg MCHC (32-36) g/dL RDW Std Deviation (36.4-46.3) fL RDW Coeff of Yasmine (11.5-14.5) % Plt Count (130-400) K/uL MPV (7.4-10.4) fL PT (9.0-12.0) Seconds INR (0.9-1.1) Sodium 130 L (136-145) mmol/L Potassium 3.1 L (3.5-5.1) mmol/L Chloride 94 L (98-107) mmol/L Carbon Dioxide 29 (21-32) mmol/L Anion Gap 8.0 (3-11) BUN 6 L (7-18) mg/dl Creatinine 0.70 (0.6-1.2) mg/dl Est Cr Clr Drug Dosing 100.3 ml/min Est GFR ( Amer) 131.0 ml/min Est GFR (Non-Af Amer) 113.0 ml/min BUN/Creatinine Ratio 8.5 L (10-20) Glucose 88 (70-99) mg/dl Estimat Average Glucose mg/dl Hemoglobin A1c (4.5-5.6) % Lactate 1.4 (0.4-2.0) mmol/L Calcium 8.1 L (8.5-10.1) mg/dl Phosphorus 1.9 L (2.5-4.9) mg/dl Magnesium (1.8-2.4) mg/dl Total Bilirubin (0.2-1) mg/dl AST (15-37) U/L ALT (12-78) U/L Alkaline Phosphatase (45-117) U/L Total Protein (6.4-8.2) gm/dl Albumin (3.4-5.0) gm/dl Globulin (2.5-4.0) gm/dl Albumin/Globulin Ratio (0.9-2) Lipase (73-393) U/L SARS-CoV-2 (PCR) (Negative) 06/20/21 06/20/21 06/20/21 Range/Units 11:14 07:47 07:47 WBC (4.8-10.8) K/uL RBC (4.2-5.4) M/uL Hgb (12.0-16.0) g/dL Hct (37-47) % MCV (80-100) fL MCH (25-34) pg MCHC (32-36) g/dL RDW Std Deviation (36.4-46.3) fL RDW Coeff of Yasmine (11.5-14.5) % Plt Count (130-400) K/uL MPV (7.4-10.4) fL PT (9.0-12.0) Seconds INR (0.9-1.1) Sodium (136-145) mmol/L Potassium (3.5-5.1) mmol/L Chloride (98-107) mmol/L Carbon Dioxide (21-32) mmol/L Anion Gap (3-11) BUN (7-18) mg/dl Creatinine (0.6-1.2) mg/dl Est Cr Clr Drug Dosing ml/min Est GFR ( Amer) ml/min Est GFR (Non-Af Amer) ml/min BUN/Creatinine Ratio (10-20) Glucose (70-99) mg/dl Estimat Average Glucose 117 mg/dl Hemoglobin A1c 5.7 H (4.5-5.6) % Lactate (0.4-2.0) mmol/L Calcium (8.5-10.1) mg/dl Phosphorus (2.5-4.9) mg/dl Magnesium 1.6 L (1.8-2.4) mg/dl Total Bilirubin (0.2-1) mg/dl AST (15-37) U/L ALT (12-78) U/L Alkaline Phosphatase (45-117) U/L Total Protein (6.4-8.2) gm/dl Albumin (3.4-5.0) gm/dl Globulin (2.5-4.0) gm/dl Albumin/Globulin Ratio (0.9-2) Lipase (73-393) U/L SARS-CoV-2 (PCR) NEGATIVE (Negative) Medications Administered Current Inpatient Medications Albuterol (Albuterol Hfa 8 Gm Inhaler (Combivent Respimat P&T Subs)) 1 puffs INH BIDR [facility] Stop: 07/20/21 18:59 Last Admin: 06/20/21 20:33 Dose: 1 puffs Documented by: Amphetamine/Dextroamphetamine (Amphetamine Asp/Sulf/Dextramph 10 Mg Tab) 10 mg PO DAILY JUAN Stop: 07/05/21 08:59 Amphetamine/Dextroamphetamine (Amphetamine Asp/Sulf/Dextramph 5 Mg Tab) 5 mg PO QDL [facility] Stop: 07/05/21 11:29 Bupropion HCl (Bupropion Xl 300 Mg Tabcr) 300 mg PO QAM [facility] Stop: 07/21/21 08:59 Last Admin: 06/20/21 17:29 Dose: 300 mg Documented by: Buspirone HCl (Buspirone 5 Mg Tab) 5 mg PO TID [facility] Stop: 07/20/21 15:44 Last Admin: 06/20/21 20:39 Dose: 5 mg Documented by: Fluticasone/Vilanterol (Fluticasone/Vilanterol 200/25mcg 14 Puffs/Inhaler) 1 puffs INH DAILY [facility] Stop: 07/21/21 08:59 Folic Acid (Folic Acid 1 Mg Tab) 1 mg PO QAM [facility] Stop: 07/20/21 15:44 Last Admin: 06/20/21 17:29 Dose: 1 mg Documented by: Lactated Ringer's (Lr) 1,000 mls @ 200 mls/hr IV .Q5H [facility] Stop: 07/20/21 11:14 Last Admin: 06/21/21 03:43 Dose: 200 mls/hr Documented by: Lorazepam (Ativan) 1 mg in 2 mls @ 2 mls/min IV UD PRN; Protocol PRN Reason: EtOH Withdrawl AWSS Score 6,7 Stop: 07/20/21 15:44 Lorazepam (Ativan) 2 mg in 4 mls @ 4 mls/min IV UD PRN; Protocol PRN Reason: EtOH Withdrawl AWSS Score 8,9 Stop: 07/20/21 15:44 Lorazepam (Ativan) 3 mg in 6 mls @ 4 mls/min IV ONCE PRN; Protocol PRN Reason: EtOH Withdrawl AWSS Score >=10 Stop: 07/20/21 15:44 Ceftriaxone Sodium 1,000 mg/ (Dextrose) 50 mls @ 100 mls/hr IV Q24H [facility]; Protocol Stop: 06/25/21 15:59 Last Infusion: 06/20/21 19:10 Dose: Infused Documented by: Ipratropium [place] (Ipratropium Hfa Inhaler (Combivent Respimat P&T Subs)) 1 puffs INH BIDR [facility] Stop: 07/20/21 18:59 Last Admin: 06/20/21 21:57 Dose: Not Given Documented by: Loratadine (Loratadine 10 Mg Tab) 10 mg PO DAILY [facility] Stop: 07/21/21 08:59 Melatonin (Melatonin 3 Mg Tab) 3 mg PO HS PRN PRN Reason: Sleep Stop: 07/20/21 22:13 Last Admin: 06/20/21 22:35 Dose: 3 mg Documented by: Montelukast Sodium (Montelukast Sodium 10 Mg Tablet) 10 mg PO HS [facility] Stop: 07/20/21 20:59 Last Admin: 06/20/21 20:39 Dose: 10 mg Documented by: Morphine Sulfate (Morphine Sulfate 4 Mg/Ml 1 Ml Carp\\Vial) 4 mg IV Q6H PRN PRN Reason: severe pain Stop: 07/04/21 19:36 Last Admin: 06/21/21 02:40 Dose: 4 mg Documented by: Pantoprazole Sodium (Pantoprazole 40 Mg Tab) 40 mg PO DAILY [facility] Stop: 07/21/21 08:59 Thiamine HCl (Thiamine Hcl 100 Mg Tab) 100 mg PO QAM [facility] Stop: 07/20/21 15:44 Last Admin: 06/20/21 17:29 Dose: 100 mg Documented by: (1) Alcoholic hepatitis Ascites presence: unspecified Qualified Code(s): K70.10 - Alcoholic hepatitis without ascites (2) Alcoholic pancreatitis Acute pancreatitis complication: unspecified Chronicity: acute Qualified Code(s): K85.20 - Alcohol induced acute pancreatitis without necrosis or infection
[2021-06-21 07:50] LABS: Estimated Average Glucose 117 mg/dl; Hemoglobin A1C 5.7 % (4.5-5.6)
[2021-06-21 08:08] LABS: Hematocrit (blood only) 36.5 % (37-47); Hemoglobin 12.6 g/dL (12.0-16.0); Mean Corpuscular Hemoglobin 34.9 pg (25-34); Mean Corpuscular Hgb Conc 34.5 g/dL (32-36); Mean Corpuscular Volume 101.1 fL (80-100); Mean Platelet Volume 11.2 fL (7.4-10.4); Platelet Count 126 K/uL (130-400); RDW Coefficient of Variation 12.5 % (11.5-14.5); RDW Standard Deviation 46.2 fL (36.4-46.3); Red Blood Count 3.61 M/uL (4.2-5.4); White Blood Count 8.64 K/uL (4.8-10.8)
[2021-06-21 08:19] LABS: INR 1.1 (0.9-1.1); Prothrombin Time 11.1 Seconds (9.0-12.0)
[2021-06-21] MEDS: LORATADINE 10 MG TAB PO SCH (08:36)
[2021-06-21] MEDS: FLUTICASONE/VILANTEROL 200/25MCG 14 PUFFS/INHALER INH SCH (08:36)
[2021-06-21] MEDS: PANTOprazole 40 MG TAB PO SCH (08:36)
[2021-06-21] MEDS: THIAMINE HCL 100 MG TAB PO SCH (08:36)
[2021-06-21] MEDS: FOLIC ACID 1 MG TAB PO SCH (08:36)
[2021-06-21] MEDS: busPIRone 5 MG TAB PO SCH ×3 (08:36→19:33)
[2021-06-21] MEDS: LORazepam 2 MG/4 ML VIAL IV PRN ×3 (08:37→20:31)
[2021-06-21 08:53] LABS: Albumin Globulin Ratio 0.6 (0.9-2); Albumin Level 2.4 gm/dl (3.4-5.0); BUN Creatinine Ratio 6.9 (10-20); Bilirubin,Total 5.6 mg/dl (0.2-1); Calcium 8.2 mg/dl (8.5-10.1); Creatinine Clr Calc Pharmacy 109.7 ml/min; Est GFR (African American) 134.9 ml/min; Est GFR (Non-African American) 116.4 ml/min; Globulin 3.9 gm/dl (2.5-4.0); Magnesium 2.1 mg/dl (1.8-2.4); Potassium 3.9 mmol/L (3.5-5.1); Total Protein 6.3 gm/dl (6.4-8.2)
[2021-06-21] MEDS ORDERED: AMPHETAMINE ASP/SULF/DEXTRAMPH 10 MG TAB PO SCH (09:00)
--- NOTE | 2021-06-21 09:19 | Gastroenterology Progress Note ---
Date of Service June 21, 2021 Assessment & Plan (1) Abdominal pain: Plan: 36 year old female admitted w/ ETOH hepatitis and ETOH induced pancreatitis. No current role for steroids Alcohol abstention. Watch LFTs, INR daily Decrease fluids to maintenance. Clears. Complete, permanent ETOH abstention. Admission and Anticipated Discharge Date Admission Date: June 20, 2021 Supervising Physician Co-Signing Physician Notes Attg add: I interviewed and examined pt, reviewed chart and labs. This am, pt denied pain, reported hunger, passing flatus. VS sig for tachy. Abd was completely non tender. Mild tremor. Labs show nl WBC, fall in hgb, Normal creat, fall in bili. MRCP shows borderline CBD, without obstruction. Alc hep Alcoholic pancreatitis with possible necrotizing pancreatitis. - Clears, maintenance fluids. No CBD obstruction noted on imaging, follow LFT's and bili -- if bili rises, consider re-image CBD. Plan repeat CT in 1 week. Subjective Pt was seen and evaluated, chart reviewed. Sitting upright, in bed. Mild upper abd pain. Denies nausea, vomiting. MRCP: Findings of acute pancreatitis, comparable to prior CT. Dilation of the common bile duct to 7 mm without evidence of obstructing stone. Review of Systems Review of Systems: All systems reviewed & are unremarkable except as noted in HPI & below Physical Exam Constitutional: WD/WN, vitals as above Neck: trachea midline, no thyromegaly Respiratory: normal respiratory effort, lungs clear to auscultation Cardiovascular: RRR, no murmur, no edema Gastrointestinal (Abdomen): normal bowel sounds, soft, nontender, no hepatosplenomegaly Skin: no rashes, warm and dry Results & Data ([facility]) Vital Signs (Past 12 Hours) Vital Signs Temp Pulse Pulse Resp BP Pulse Ox 06/21/21 07:26 97 H 06/21/21 07:08 37.1 C 95 H 16 100/67 94 06/21/21 03:06 37.4 C 61 16 109/72 95 06/20/21 23:56 95 H 06/20/21 23:20 37.4 C 95 H 20 107/72 98 Laboratory Results 06/21/21 06/21/21 06/21/21 Range/Units 07:46 07:46 07:46 WBC 8.64 (4.8-10.8) K/uL RBC 3.61 L (4.2-5.4) M/uL Hgb 12.6 (12.0-16.0) g/dL Hct 36.5 L (37-47) % MCV 101.1 H (80-100) fL MCH 34.9 H (25-34) pg MCHC 34.5 (32-36) g/dL RDW Std Deviation 46.2 (36.4-46.3) fL RDW Coeff of Yasmine 12.5 (11.5-14.5) % Plt Count 126 L (130-400) K/uL MPV 11.2 H (7.4-10.4) fL PT 11.1 (9.0-12.0) Seconds INR 1.1 (0.9-1.1) APTT (21.0-31.0) Seconds PTT Ratio Sodium 133 L (136-145) mmol/L Potassium 3.9 D (3.5-5.1) mmol/L Chloride 100 (98-107) mmol/L Carbon Dioxide 25 (21-32) mmol/L Anion Gap 8.0 (3-11) BUN 4 L (7-18) mg/dl Creatinine 0.64 (0.6-1.2) mg/dl Est Cr Clr Drug Dosing 109.7 ml/min Est GFR ( Amer) 134.9 ml/min Est GFR (Non-Af Amer) 116.4 ml/min BUN/Creatinine Ratio 6.9 L (10-20) Glucose 83 (70-99) mg/dl Estimat Average Glucose mg/dl Hemoglobin A1c (4.5-5.6) % Lactate (0.4-2.0) mmol/L Calcium 8.2 L (8.5-10.1) mg/dl Phosphorus (2.5-4.9) mg/dl Magnesium 2.1 (1.8-2.4) mg/dl Total Bilirubin 5.6 H (0.2-1) mg/dl AST 92 H (15-37) U/L ALT 61 (12-78) U/L Alkaline Phosphatase 148 H (45-117) U/L Total Protein 6.3 L (6.4-8.2) gm/dl Albumin 2.4 L (3.4-5.0) gm/dl Globulin 3.9 (2.5-4.0) gm/dl Albumin/Globulin Ratio 0.6 L (0.9-2) Lipase 702 H (73-393) U/L COVID-19 Eval Order SARS-CoV-2 (PCR) (Negative) 06/20/21 06/20/21 06/20/21 Range/Units 17:47 17:47 15:19 WBC (4.8-10.8) K/uL RBC (4.2-5.4) M/uL Hgb (12.0-16.0) g/dL Hct (37-47) % MCV (80-100) fL MCH (25-34) pg MCHC (32-36) g/dL RDW Std Deviation (36.4-46.3) fL RDW Coeff of Yasmine (11.5-14.5) % Plt Count (130-400) K/uL MPV (7.4-10.4) fL PT (9.0-12.0) Seconds INR (0.9-1.1) APTT (21.0-31.0) Seconds PTT Ratio Sodium 130 L (136-145) mmol/L Potassium 3.1 L (3.5-5.1) mmol/L Chloride 94 L (98-107) mmol/L Carbon Dioxide 29 (21-32) mmol/L Anion Gap 8.0 (3-11) BUN 6 L (7-18) mg/dl Creatinine 0.70 (0.6-1.2) mg/dl Est Cr Clr Drug Dosing 100.3 ml/min Est GFR ( Amer) 131.0 ml/min Est GFR (Non-Af Amer) 113.0 ml/min BUN/Creatinine Ratio 8.5 L (10-20) Glucose 88 (70-99) mg/dl Estimat Average Glucose mg/dl Hemoglobin A1c (4.5-5.6) % Lactate 1.4 (0.4-2.0) mmol/L Calcium 8.1 L (8.5-10.1) mg/dl Phosphorus 1.9 L (2.5-4.9) mg/dl Magnesium (1.8-2.4) mg/dl Total Bilirubin (0.2-1) mg/dl AST (15-37) U/L ALT (12-78) U/L Alkaline Phosphatase (45-117) U/L Total Protein (6.4-8.2) gm/dl Albumin (3.4-5.0) gm/dl Globulin (2.5-4.0) gm/dl Albumin/Globulin Ratio (0.9-2) Lipase (73-393) U/L COVID-19 Eval Order SARS-CoV-2 (PCR) (Negative) 06/20/21 06/20/21 06/20/21 Range/Units 11:14 11:14 07:47 WBC (4.8-10.8) K/uL RBC (4.2-5.4) M/uL Hgb (12.0-16.0) g/dL Hct (37-47) % MCV (80-100) fL MCH (25-34) pg MCHC (32-36) g/dL RDW Std Deviation (36.4-46.3) fL RDW Coeff of Yasmine (11.5-14.5) % Plt Count (130-400) K/uL MPV (7.4-10.4) fL PT (9.0-12.0) Seconds INR (0.9-1.1) APTT (21.0-31.0) Seconds PTT Ratio Sodium (136-145) mmol/L Potassium (3.5-5.1) mmol/L Chloride (98-107) mmol/L Carbon Dioxide (21-32) mmol/L Anion Gap (3-11) BUN (7-18) mg/dl Creatinine (0.6-1.2) mg/dl Est Cr Clr Drug Dosing ml/min Est GFR ( Amer) ml/min Est GFR (Non-Af Amer) ml/min BUN/Creatinine Ratio (10-20) Glucose (70-99) mg/dl Estimat Average Glucose 117 mg/dl Hemoglobin A1c 5.7 H (4.5-5.6) % Lactate (0.4-2.0) mmol/L Calcium (8.5-10.1) mg/dl Phosphorus (2.5-4.9) mg/dl Magnesium (1.8-2.4) mg/dl Total Bilirubin (0.2-1) mg/dl AST (15-37) U/L ALT (12-78) U/L Alkaline Phosphatase (45-117) U/L Total Protein (6.4-8.2) gm/dl Albumin (3.4-5.0) gm/dl Globulin (2.5-4.0) gm/dl Albumin/Globulin Ratio (0.9-2) Lipase (73-393) U/L COVID-19 Eval Order Covid19 at [facility] SARS-CoV-2 (PCR) NEGATIVE (Negative) 06/20/21 06/20/21 Range/Units 07:47 07:47 WBC (4.8-10.8) K/uL RBC (4.2-5.4) M/uL Hgb (12.0-16.0) g/dL Hct (37-47) % MCV (80-100) fL MCH (25-34) pg MCHC (32-36) g/dL RDW Std Deviation (36.4-46.3) fL RDW Coeff of Yasmine (11.5-14.5) % Plt Count (130-400) K/uL MPV (7.4-10.4) fL PT (9.0-12.0) Seconds INR (0.9-1.1) APTT 25.7 (21.0-31.0) Seconds PTT Ratio 1.0 Sodium (136-145) mmol/L Potassium (3.5-5.1) mmol/L Chloride (98-107) mmol/L Carbon Dioxide (21-32) mmol/L Anion Gap (3-11) BUN (7-18) mg/dl Creatinine (0.6-1.2) mg/dl Est Cr Clr Drug Dosing ml/min Est GFR ( Amer) ml/min Est GFR (Non-Af Amer) ml/min BUN/Creatinine Ratio (10-20) Glucose (70-99) mg/dl Estimat Average Glucose mg/dl Hemoglobin A1c (4.5-5.6) % Lactate (0.4-2.0) mmol/L Calcium (8.5-10.1) mg/dl Phosphorus (2.5-4.9) mg/dl Magnesium 1.6 L (1.8-2.4) mg/dl Total Bilirubin (0.2-1) mg/dl AST (15-37) U/L ALT (12-78) U/L Alkaline Phosphatase (45-117) U/L Total Protein (6.4-8.2) gm/dl Albumin (3.4-5.0) gm/dl Globulin (2.5-4.0) gm/dl Albumin/Globulin Ratio (0.9-2) Lipase (73-393) U/L COVID-19 Eval Order SARS-CoV-2 (PCR) (Negative) (1) Abdominal pain Abdominal location: unspecified location Qualified Code(s): R10.9 - Unspecified abdominal pain
[2021-06-21] MEDS: Albuterol HFA 8 GM Inhaler (Combivent Respimat P&T Subs) INH SCH ×2 (11:17→19:41)
[2021-06-21] MEDS: Ipratropium HFA Inhaler (Combivent Respimat P&T Subs) INH SCH ×2 (11:17→19:41)
[2021-06-21] MEDS ORDERED: AMPHETAMINE ASP/SULF/DEXTRAMPH 5 MG TAB PO SCH ×2 (11:30)
[2021-06-21] MEDS ORDERED: GABAPENTIN 600 MG TAB PO ONE (11:56)
[2021-06-21] MEDS ORDERED: LORazepam 2 MG/4 ML VIAL IV ONE (11:58)
[2021-06-21] MEDS ORDERED: chlordiazePOXIDE ALCOHOL WITHDRAWL 25MG PO STA (12:41)
[2021-06-21] MEDS: chlordiazePOXIDE HCl 25 MG CAP PO SCH ×2 (13:07→19:30)
[2021-06-21] MEDS ORDERED: LORazepam 3 MG/6 ML VIAL IV STA (14:03)
[2021-06-21] MEDS: THIAMINE HCL 100 MG in SYRINGE 9 ML IV SCH (14:42)
[2021-06-21] MEDS: FOLIC ACID 1 MG in SYRINGE 9.8 ML IV SCH (14:42)
[2021-06-21] MEDS: cefTRIAXone SODIUM 1,000 MG in DEXTROSE 5% 50 ML IV SCH (17:56)
[2021-06-21] MEDS: MONTELUKAST SODIUM 10 MG TABLET PO SCH (19:33)
[2021-06-21] MEDS ORDERED: LACTATED RINGER'S 1,000 ML IV ONE (22:07)
[2021-06-21] MEDS: MoRPHine SULFATE 2 MG/ML CARP IV PRN (22:30)
[2021-06-21] MEDS: MELATONIN 3 MG TAB PO PRN (22:30)
[2021-06-22] MEDS: LACTATED RINGER'S 1,000 ML IV SCH ×5 (00:14→21:13)
[2021-06-22] MEDS: chlordiazePOXIDE HCl 25 MG CAP PO SCH ×4 (00:18→20:02)
[2021-06-22] MEDS: LORazepam 2 MG/4 ML VIAL IV PRN ×3 (00:54→15:31)
--- NOTE | 2021-06-22 07:28 | Hospitalist Progress Note ---
Date of Service June 22, 2021 Assessment & Plan (1) Alcoholic hepatitis: (2) Alcoholic pancreatitis: Plan: -Patient presenting from home with reports of abdominal pain, nausea, vomiting x 3 days -In the ED, labs show transaminitis (T bili 8.7, AST 194, ALT 89, alk phos 192), lipase 3000 CT ABD/pelvis - shows acute pancreatitis. Peripancreatic edema and focal fluid collection. Possible development of the pancreatic necrosis. Short-term follow- up with contrast-enhanced CT of the abdomen in 5-7 days is suggested. MRCP - 1. Findings of acute pancreatitis, comparable to prior CT. 2. Dilation of the common bile duct to 7 mm without evidence of obstructing stone. - On admission, hemodynamically stable, afebrile, minimal leukocytosis WBC 10.9K -Discriminant function score <32, no indication for steroids at this time -N.p.o., LR at 200 cc/hour, will decrease to 100 cc/hr, pain control, antiemetics -GI consulted, appreciate their input (3) Alcohol abuse: Plan: Alcohol withdrawal - On admission , pt reports a longstanding history of alcoholism, requiring hospitalization 4 to 5 years ago in [place] for alcohol hepatitis. Patient reports going to inpatient rehab following that hospitalization and had remained sober until last year during the COVID-19 pandemic. Patient reports another inpatient rehab stay in July 2020 and had been sober since. Patient reports celebrating the [employer] football game a couple of weeks ago and has been drinking daily since. She reports drinking a half a bottle of " 99 liquor" a day. - On admission, not exhibiting signs of significant alcohol withdrawal - However on 06/21 patient tremulous, not answering questions appropriately, tells me that she sees her mother standing behind me, she is trying to leave the hospital, pulling her IVs out - Continue folic acid and thiamine, IV - Continue alcohol withdrawal protocol with Ativan, add Librium - One-on-one - Upgrade to PCU for close hemodynamic monitoring - canceled overnight as there were no beds in PCU, will reassess throughout the day if PCU transfer necessary again - 06/22 -patient continues to hallucinate when awake, [place] - will try add etoh (beer) to help with withdrawal symptoms Continue to closely monitor (4) Electrolyte abnormality: Plan: -Na+ 127, K+ 2.8; on admission -Due to alcohol abuse, GI losses with vomiting -Replace, follow electrolytes, monitor also Mag and Phos (5) Abnormal urinalysis: Plan: Suggest possible UTI -Started IV ceftriaxone, follow culture (6) Asthma: Plan: -No signs of acute exacerbation, continue home inhalers (7) ADD (attention deficit disorder): (8) Anxiety: Plan: -Continue home medications including bupropion, buspirone, hold Adderall -Patient reports difficulty in setting up outpatient psychiatry appointment - mental health liaison consulted (will discuss when not withdrawing from etoh) Tobacco use Nicotine patch (9) DVT prophylaxis: Plan: -SCDs Admission and Anticipated Discharge Date Admission Date: June 20, 2021 Subjective Patient seen in follow-up of alcoholic pancreatitis/hepatitis, alcohol withdrawal Patient is actively withdrawing from alcohol Yesterday she was noted to be tremulous, did not answer questions appropriately, said her mother was standing behind me Transferred to PCU was ordered however there were no beds, and overnight, PCU transfer was canceled, patient has been somnolent for the most part and responded well to benzodiazepine Currently she is resting, sleeping, in no acute distress Will re-assess throughout the day if she needs to be transferred to PCU Per nursing staff overnight, patient wakes up occasionally, hallucinating Again this AM hallucinating, thinking she is [place] the post office Review of Systems Review of Systems: All systems reviewed & are unremarkable except as noted in Subjective Physical Exam Physical Exam: Constitutional: WD/WN, young F in NAD somnolent Eyes: + sclera icteric, EOMI, PERRL ENMT: external ear and nose normal, oropharynx normal Respiratory: normal respiratory effort, lungs clear to auscultation Cardiovascular: + tachycardic Extremities: no edema Gastrointestinal (Abdomen): Inspection/Auscultation: normal bowel sounds Percussion/Palpation: + abdomen tender (Epigastric), soft, + bowel sounds Musculoskeletal: extremities motor strength 5/5 Skin: no rashes, warm and dry Neurologic: PERRL, EOMI, no face palsy, no dysarthria Psychiatric: A+Ox3, euthymic affect Results & Data Results & Data ([facility]) Vital Signs (Past 12 Hours) Vital Signs Temp Pulse Pulse Pulse Resp BP Pulse Ox 06/22/21 04:29 36.6 C 118 H 18 122/87 95 06/22/21 01:29 124 H 06/22/21 00:50 36.7 C 125 H 20 132/89 95 06/21/21 19:48 36.7 C 127 H 18 127/85 99 Laboratory Results 06/22/21 06/22/21 Range/Units 08:00 08:00 WBC 7.92 (4.8-10.8) K/uL RBC 3.52 L (4.2-5.4) M/uL Hgb 12.4 (12.0-16.0) g/dL Hct 36.8 L (37-47) % MCV 104.5 H (80-100) fL MCH 35.2 H (25-34) pg MCHC 33.7 (32-36) g/dL RDW Std Deviation 47.8 H (36.4-46.3) fL RDW Coeff of Yasmine 12.5 (11.5-14.5) % Plt Count 135 (130-400) K/uL MPV 10.7 H (7.4-10.4) fL Sodium 137 (136-145) mmol/L Potassium 3.5 (3.5-5.1) mmol/L Chloride 105 (98-107) mmol/L Carbon Dioxide 24 (21-32) mmol/L Anion Gap 9.0 (3-11) BUN 4 L (7-18) mg/dl Creatinine 0.50 L (0.6-1.2) mg/dl Est Cr Clr Drug Dosing 140.4 ml/min Est GFR ( Amer) 146.4 ml/min Est GFR (Non-Af Amer) 126.3 ml/min BUN/Creatinine Ratio 7.5 L (10-20) Glucose 65 L (70-99) mg/dl Calcium 8.1 L (8.5-10.1) mg/dl Phosphorus Pending Magnesium 2.1 (1.8-2.4) mg/dl Total Bilirubin Pending AST 83 H (15-37) U/L ALT 50 (12-78) U/L Alkaline Phosphatase Pending Total Protein Pending Albumin 2.1 L (3.4-5.0) gm/dl Globulin Pending Albumin/Globulin Ratio Pending Lipase 579 H (73-393) U/L Medications Administered Current Inpatient Medications Albuterol (Albuterol Hfa 8 Gm Inhaler (Combivent Respimat P&T Subs)) 1 puffs INH BIDR JUAN Stop: 07/20/21 18:59 Last Admin: 06/21/21 19:41 Dose: Not Given Documented by: Amphetamine/Dextroamphetamine (Amphetamine Asp/Sulf/Dextramph 10 Mg Tab) 10 mg PO DAILY JUAN Stop: 07/05/21 08:59 Last Admin: 06/21/21 08:36 Dose: 10 mg Documented by: Amphetamine/Dextroamphetamine (Amphetamine Asp/Sulf/Dextramph 5 Mg Tab) 5 mg PO QDL JUAN Stop: 07/05/21 11:29 Last Admin: 06/21/21 12:33 Dose: Not Given Documented by: Bupropion HCl (Bupropion Xl 300 Mg Tabcr) 300 mg PO QAM JUAN Stop: 07/21/21 08:59 Last Admin: 06/22/21 07:31 Dose: 300 mg Documented by: Buspirone HCl (Buspirone 5 Mg Tab) 5 mg PO TID JUAN Stop: 07/20/21 15:44 Last Admin: 06/22/21 07:31 Dose: 5 mg Documented by: Chlordiazepoxide HCl (Chlordiazepoxide Hcl 25 Mg Cap) 25 mg PO Q6H JUAN; Taper Stop: 06/23/21 12:59 Last Admin: 06/22/21 06:29 Dose: 25 mg Documented by: Chlordiazepoxide HCl (Chlordiazepoxide Hcl 10 Mg Cap) 10 mg PO Q8H JUAN Stop: 06/24/21 05:01 Chlordiazepoxide HCl (Chlordiazepoxide Hcl 5 Mg Cap) 5 mg PO Q12H JUAN Stop: 06/25/21 01:01 Fluticasone/Vilanterol (Fluticasone/Vilanterol 200/25mcg 14 Puffs/Inhaler) 1 pu ffs INH DAILY JUAN Stop: 07/21/21 08:59 Last Admin: 06/22/21 07:31 Dose: 1 puffs Documented by: Folic Acid (Folic Acid 1 Mg Tab) 1 mg PO QAM JUAN Stop: 07/20/21 15:44 Last Admin: 06/21/21 08:36 Dose: 1 mg Documented by: Lorazepam (Ativan) 1 mg in 2 mls @ 2 mls/min IV UD PRN; Protocol PRN Reason: EtOH Withdrawl AWSS Score 6,7 Stop: 07/20/21 15:44 Lorazepam (Ativan) 2 mg in 4 mls @ 4 mls/min IV UD PRN; Protocol PRN Reason: EtOH Withdrawl AWSS Score 8,9 Stop: 07/20/21 15:44 Last Admin: 06/22/21 07:25 Dose: 4 mls/min Documented by: Lorazepam (Ativan) 3 mg in 6 mls @ 4 mls/min IV ONCE PRN; Protocol PRN Reason: EtOH Withdrawl AWSS Score >=10 Stop: 07/20/21 15:44 Ceftriaxone Sodium 1,000 mg/ (Dextrose) 50 mls @ 100 mls/hr IV Q24H JUAN; Protocol Stop: 06/25/21 15:59 Last Infusion: 06/21/21 18:26 Dose: Infused Documented by: Thiamine HCl 100 mg/ Syringe 10 mls @ 2 mls/min IV QAM [facility] Stop: 07/21/21 08:59 Last Admin: 06/22/21 07:31 Dose: 2 mls/min Documented by: Folic Acid 1 mg/ Syringe 10 mls @ 5 mls/min IV QAM [facility] Stop: 07/21/21 12:29 Last Admin: 06/22/21 07:31 Dose: 5 mls/min Documented by: Lorazepam (Ativan) 2 mg in 4 mls @ 4 mls/min IV Q2H PRN PRN Reason: Agitation Stop: 07/21/21 15:34 Lactated Ringer's (Lr) 1,000 mls @ 200 mls/hr IV .Q5H [facility] Stop: 06/22/21 23:59 Last Admin: 06/22/21 06:06 Dose: 200 mls/hr Documented by: Ipratropium [place] (Ipratropium Hfa Inhaler (Combivent Respimat P&T Subs)) 1 puffs INH BIDR [facility] Stop: 07/20/21 18:59 Last Admin: 06/21/21 19:41 Dose: Not Given Documented by: Loratadine (Loratadine 10 Mg Tab) 10 mg PO DAILY [facility] Stop: 07/21/21 08:59 Last Admin: 06/22/21 07:31 Dose: 10 mg Documented by: Melatonin (Melatonin 3 Mg Tab) 3 mg PO HS PRN PRN Reason: Sleep Stop: 07/20/21 22:13 Last Admin: 06/21/21 22:30 Dose: 3 mg Documented by: Miscellaneous (Remove Nicoderm Patch) 1 ea N/A DAILY@0859 [facility] Stop: 07/22/21 08:58 Montelukast Sodium (Montelukast Sodium 10 Mg Tablet) 10 mg PO HS [facility] Stop: 07/20/21 20:59 Last Admin: 06/21/21 19:33 Dose: 10 mg Documented by: Morphine Sulfate (Morphine Sulfate 2 Mg/Ml Carp) 2 mg IV Q4H PRN PRN Reason: pain Stop: 07/04/21 19:36 Last Admin: 06/21/21 22:30 Dose: 2 mg Documented by: Nicotine (Nicotine 14 Mg/24 Hr Patch) 14 mg TD QAM [facility] Stop: 07/22/21 08:59 Pantoprazole Sodium (Pantoprazole 40 Mg Tab) 40 mg PO DAILY [facility] Stop: 07/21/21 08:59 Last Admin: 06/22/21 07:31 Dose: 40 mg Documented by: Thiamine HCl (Thiamine Hcl 100 Mg Tab) 100 mg PO QAM [facility] Stop: 07/20/21 15:44 Last Admin: 06/21/21 08:36 Dose: 100 mg Documented by: (1) Alcoholic hepatitis Ascites presence: unspecified Qualified Code(s): K70.10 - Alcoholic hepatitis without ascites (2) Alcoholic pancreatitis Acute pancreatitis complication: unspecified Chronicity: acute Qualified Code(s): K85.20 - Alcohol induced acute pancreatitis without necrosis or infection
[2021-06-22] MEDS: FLUTICASONE/VILANTEROL 200/25MCG 14 PUFFS/INHALER INH SCH (07:31)
[2021-06-22] MEDS: FOLIC ACID 1 MG in SYRINGE 9.8 ML IV SCH (07:31)
[2021-06-22] MEDS: buPROPion XL 300 MG TABCR PO SCH (07:31)
[2021-06-22] MEDS: busPIRone 5 MG TAB PO SCH ×3 (07:31→20:00)
[2021-06-22] MEDS: LORATADINE 10 MG TAB PO SCH (07:31)
[2021-06-22] MEDS: PANTOprazole 40 MG TAB PO SCH (07:31)
[2021-06-22] MEDS: THIAMINE HCL 100 MG in SYRINGE 9 ML IV SCH (07:31)
[2021-06-22] MEDS: MoRPHine SULFATE 2 MG/ML CARP IV PRN ×4 (07:41→21:25)
[2021-06-22] MEDS: Albuterol HFA 8 GM Inhaler (Combivent Respimat P&T Subs) INH SCH ×2 (07:56→20:04)
[2021-06-22] MEDS: Ipratropium HFA Inhaler (Combivent Respimat P&T Subs) INH SCH ×2 (07:56→20:04)
[2021-06-22] MEDS: NICOTINE 14 MG/24 HR PATCH TD SCH (08:15)
[2021-06-22 08:38] LABS: Hematocrit (blood only) 36.8 % (37-47); Hemoglobin 12.4 g/dL (12.0-16.0); Mean Corpuscular Hemoglobin 35.2 pg (25-34); Mean Corpuscular Hgb Conc 33.7 g/dL (32-36); Mean Corpuscular Volume 104.5 fL (80-100); Mean Platelet Volume 10.7 fL (7.4-10.4); Platelet Count 135 K/uL (130-400); RDW Coefficient of Variation 12.5 % (11.5-14.5); RDW Standard Deviation 47.8 fL (36.4-46.3); Red Blood Count 3.52 M/uL (4.2-5.4); White Blood Count 7.92 K/uL (4.8-10.8)
[2021-06-22 08:56] LABS: Albumin Level 2.1 gm/dl (3.4-5.0); BUN Creatinine Ratio 7.5 (10-20); Calcium 8.1 mg/dl (8.5-10.1); Creatinine Clr Calc Pharmacy 140.4 ml/min; Est GFR (African American) 146.4 ml/min; Est GFR (Non-African American) 126.3 ml/min; Magnesium 2.1 mg/dl (1.8-2.4); Potassium 3.5 mmol/L (3.5-5.1)
[2021-06-22] MEDS ORDERED: BEER 1 CAN PO SCH (09:00)
[2021-06-22] MEDS ORDERED: POTASSIUM CHLORIDE CRTAB 20 MEQ TABCR PO STA (09:10)
[2021-06-22 09:14] LABS: Albumin Globulin Ratio 0.5 (0.9-2); Bilirubin,Total 3.3 mg/dl (0.2-1); Globulin 3.8 gm/dl (2.5-4.0); Phosphorus 2.8 mg/dl (2.5-4.9); Total Protein 5.9 gm/dl (6.4-8.2)
[2021-06-22] MEDS ORDERED: BEER 1 CAN PO PRN (09:24)
[2021-06-22] MEDS: POTASSIUM CHLORIDE / WTR 10 MEQ/100 ML PLCT IV SCH ×2 (09:39→10:31)
[2021-06-22] MEDS: cefTRIAXone SODIUM 1,000 MG in DEXTROSE 5% 50 ML IV SCH (15:26)
[2021-06-22] MEDS: MONTELUKAST SODIUM 10 MG TABLET PO SCH (20:00)
[2021-06-23] MEDS: MoRPHine SULFATE 2 MG/ML CARP IV PRN ×4 (03:25→21:26)
[2021-06-23] MEDS: chlordiazePOXIDE HCl 25 MG CAP PO SCH (05:59)
[2021-06-23] MEDS: Albuterol HFA 8 GM Inhaler (Combivent Respimat P&T Subs) INH SCH ×2 (07:31→20:03)
[2021-06-23] MEDS: Ipratropium HFA Inhaler (Combivent Respimat P&T Subs) INH SCH ×2 (07:31→20:03)
[2021-06-23 08:52] LABS: Albumin Level 2.2 gm/dl (3.4-5.0); BUN Creatinine Ratio 4.3 (10-20); Calcium 8.5 mg/dl (8.5-10.1); Creatinine Clr Calc Pharmacy 120.7 ml/min; Est GFR (African American) 139.4 ml/min; Est GFR (Non-African American) 120.3 ml/min; Magnesium 2.4 mg/dl (1.8-2.4); Potassium 3.4 mmol/L (3.5-5.1)
[2021-06-23] MEDS: PANTOprazole 40 MG TAB PO SCH (08:52)
[2021-06-23] MEDS: LORATADINE 10 MG TAB PO SCH (08:52)
[2021-06-23] MEDS: buPROPion XL 300 MG TABCR PO SCH (08:52)
[2021-06-23] MEDS: busPIRone 5 MG TAB PO SCH ×3 (08:52→21:27)
[2021-06-23] MEDS: NICOTINE 14 MG/24 HR PATCH TD SCH (08:53)
[2021-06-23] MEDS: FOLIC ACID 1 MG in SYRINGE 9.8 ML IV SCH (08:53)
[2021-06-23 08:54] LABS: Hematocrit (blood only) 35.1 % (37-47); Hemoglobin 11.8 g/dL (12.0-16.0); Mean Corpuscular Hemoglobin 34.9 pg (25-34); Mean Corpuscular Hgb Conc 33.6 g/dL (32-36); Mean Corpuscular Volume 103.8 fL (80-100); Platelet Count 217 K/uL (130-400); RDW Coefficient of Variation 12.8 % (11.5-14.5); RDW Standard Deviation 48.3 fL (36.4-46.3); Red Blood Count 3.38 M/uL (4.2-5.4); White Blood Count 7.74 K/uL (4.8-10.8)
[2021-06-23] MEDS: FLUTICASONE/VILANTEROL 200/25MCG 14 PUFFS/INHALER INH SCH (08:54)
[2021-06-23 08:55] LABS: Platelet Estimate Normal (Normal)
[2021-06-23] MEDS: THIAMINE HCL 100 MG in SYRINGE 9 ML IV SCH (08:55)
[2021-06-23 09:15] LABS: Albumin Globulin Ratio 0.5 (0.9-2); Bilirubin,Total 2.2 mg/dl (0.2-1); Phosphorus 3.8 mg/dl (2.5-4.9); Total Protein 6.2 gm/dl (6.4-8.2)
[2021-06-23] MEDS ORDERED: LORazepam 2 MG/4 ML VIAL IV STA (09:23)
--- NOTE | 2021-06-23 09:29 | Hospitalist Progress Note ---
Date of Service June 23, 2021 Assessment & Plan (1) Alcoholic hepatitis: (2) Alcoholic pancreatitis: Plan: -Patient presenting from home with reports of abdominal pain, nausea, vomiting x 3 days -In the ED, labs show transaminitis (T bili 8.7, AST 194, ALT 89, alk phos 192), lipase 3000 CT ABD/pelvis - shows acute pancreatitis. Peripancreatic edema and focal fluid collection. Possible development of the pancreatic necrosis. Short-term follow- up with contrast-enhanced CT of the abdomen in 5-7 days is suggested. MRCP - 1. Findings of acute pancreatitis, comparable to prior CT. 2. Dilation of the common bile duct to 7 mm without evidence of obstructing stone. - On admission, hemodynamically stable, afebrile, minimal leukocytosis WBC 10.9K -Discriminant function score <32, no indication for steroids at this time - LR decrease to 100 cc/hr, pain control, antiemetics - clear liquid diet -GI consulted, appreciate their input (3) Alcohol abuse: Plan: Alcohol withdrawal - On admission , pt reports a longstanding history of alcoholism, requiring hospitalization 4 to 5 years ago in [place] for alcohol hepatitis. Patient reports going to inpatient rehab following that hospitalization and had remained sober until last year during the COVID-19 pandemic. Patient reports another inpatient rehab stay in July 2020 and had been sober since. Patient reports celebrating the [employer] football game a couple of weeks ago and has been drinking daily since. She reports drinking a half a bottle of " 99 liquor" a day. - On admission, not exhibiting signs of significant alcohol withdrawal - However on 06/21 patient tremulous, not answering questions appropriately, tells me that she sees her mother standing behind me, she is trying to leave the hospital, pulling her IVs out - Continue folic acid and thiamine, IV - Continue alcohol withdrawal protocol with Ativan, add Librium - One-on-one - Upgrade to PCU for close hemodynamic monitoring - canceled overnight as there were no beds in PCU, will reassess throughout the day if PCU transfer necessary again - 06/22 -patient continues to hallucinate when awake, [place] - will try add etoh (beer) to help with withdrawal symptoms Continue to closely monitor - 06/23 -patient is able to answer some questions appropriately, however continues to have poor insight Wants to leave the hospital, even though she continues to have abdominal pain Psychiatry liaison at the bedside (4) Electrolyte abnormality: Plan: -Na+ 127, K+ 2.8; on admission -Due to alcohol abuse, GI losses with vomiting -Replace, follow electrolytes, monitor also Mag and Phos (5) Abnormal urinalysis: Plan: Suggest possible UTI Urine culture positive for E. coli, resistant to Bactrim -Started IV ceftriaxone, will cont. (6) Asthma: Plan: -No signs of acute exacerbation, continue home inhalers (7) ADD (attention deficit disorder): (8) Anxiety: Plan: -Continue home medications including bupropion, buspirone, hold Adderall -Patient reports difficulty in setting up outpatient psychiatry appointment - mental health liaison consulted (will discuss when not withdrawing from etoh) Tobacco use Nicotine patch (9) DVT prophylaxis: Plan: -SCDs Admission and Anticipated Discharge Date Admission Date: June 20, 2021 Subjective Patient seen in follow-up of alcoholic pancreatitis/hepatitis, alcohol withdrawal Patient is actively withdrawing from alcohol She was tremulous, did not answer questions appropriately, and hallucinating Currently she is awake, she can tell that she is in the hospital, and she can say the year, she is teary and wants to leave, she wants to get to her car Tells me she talked her family, who wants her to stay in the hospital I discussed with her that she is not safe yet to leave the hospital She also tells me she continues to have abdominal pain, quite significant, however does not understand that she needs to stay in the hospital Psychiatry liaison at the bedside as well Otherwise pt denies fevers chills chest pain, shortness of breath Review of Systems Review of Systems: All systems reviewed & are unremarkable except as noted in Subjective Physical Exam Physical Exam: Constitutional: WD/WN, young F in NAD Eyes: EOMI, PERRL ENMT: external ear and nose normal, oropharynx normal Respiratory: normal respiratory effort, lungs clear to auscultation Cardiovascular: + tachycardic Extremities: no edema Gastrointestinal (Abdomen): Inspection/Auscultation: normal bowel sounds Percussion/Palpation: + abdomen tender (Epigastric), soft, + bowel sounds Musculoskeletal: extremities motor strength 5/5 Skin: no rashes, warm and dry Neurologic: PERRL, EOMI, no face palsy, no dysarthria Psychiatric: She is awake and she is better able to answer questions appropriately today however she has extremely poor insight Results & Data Results & Data ([facility]) Vital Signs (Past 12 Hours) Vital Signs Temp Pulse Pulse Resp BP BP Pulse Ox 06/23/21 07:31 110 H 14 98 06/23/21 07:00 36.5 C 107 H 18 111/79 95 06/23/21 04:00 37.0 C 108 H 18 114/80 95 06/23/21 00:09 108 H 06/22/21 23:00 36.5 C 107 H 18 113/82 99 Laboratory Results 06/23/21 06/23/21 Range/Units 07:36 07:36 WBC 7.74 (4.8-10.8) K/uL RBC 3.38 L (4.2-5.4) M/uL Hgb 11.8 L (12.0-16.0) g/dL Hct 35.1 L (37-47) % MCV 103.8 H (80-100) fL MCH 34.9 H (25-34) pg MCHC 33.6 (32-36) g/dL RDW Std Deviation 48.3 H (36.4-46.3) fL RDW Coeff of Yasmine 12.8 (11.5-14.5) % Plt Count 217 D (130-400) K/uL MPV 11.0 H (7.4-10.4) fL Platelet Estimate Normal (Normal) Sodium 137 (136-145) mmol/L Potassium 3.4 L (3.5-5.1) mmol/L Chloride 103 (98-107) mmol/L Carbon Dioxide 23 (21-32) mmol/L Anion Gap 10.0 (3-11) BUN 3 L (7-18) mg/dl Creatinine 0.58 L (0.6-1.2) mg/dl Est Cr Clr Drug Dosing 120.7 ml/min Est GFR ( Amer) 139.4 ml/min Est GFR (Non-Af Amer) 120.3 ml/min BUN/Creatinine Ratio 4.3 L (10-20) Glucose 80 (70-99) mg/dl Calcium 8.5 (8.5-10.1) mg/dl Phosphorus 3.8 D (2.5-4.9) mg/dl Magnesium 2.4 (1.8-2.4) mg/dl Total Bilirubin 2.2 H (0.2-1) mg/dl AST 70 H (15-37) U/L ALT 50 (12-78) U/L Alkaline Phosphatase 147 H (45-117) U/L Total Protein 6.2 L (6.4-8.2) gm/dl Albumin 2.2 L (3.4-5.0) gm/dl Globulin 4.0 (2.5-4.0) gm/dl Albumin/Globulin Ratio 0.5 L (0.9-2) Medications Administered Current Inpatient Medications Albuterol (Albuterol Hfa 8 Gm Inhaler (Combivent Respimat P&T Subs)) 1 puffs INH BIDR JUAN Stop: 07/20/21 18:59 Last Admin: 06/23/21 07:31 Dose: 1 puffs Documented by: Amphetamine/Dextroamphetamine (Amphetamine Asp/Sulf/Dextramph 10 Mg Tab) 10 mg PO DAILY JUAN Stop: 07/05/21 08:59 Last Admin: 06/21/21 08:36 Dose: 10 mg Documented by: Amphetamine/Dextroamphetamine (Amphetamine Asp/Sulf/Dextramph 5 Mg Tab) 5 mg PO QDL [facility] Stop: 07/05/21 11:29 Last Admin: 06/21/21 12:33 Dose: Not Given Documented by: Bupropion HCl (Bupropion Xl 300 Mg Tabcr) 300 mg PO QAM [facility] Stop: 07/21/21 08:59 Last Admin: 06/23/21 08:52 Dose: 300 mg Documented by: Buspirone HCl (Buspirone 5 Mg Tab) 5 mg PO TID [facility] Stop: 07/20/21 15:44 Last Admin: 06/23/21 08:52 Dose: 5 mg Documented by: Chlordiazepoxide HCl (Chlordiazepoxide Hcl 25 Mg Cap) 25 mg PO Q8H JUAN; Taper Stop: 06/23/21 12:59 Last Admin: 06/23/21 05:59 Dose: 25 mg Documented by: Chlordiazepoxide HCl (Chlordiazepoxide Hcl 10 Mg Cap) 10 mg PO Q8H [facility] Stop: 06/24/21 05:01 Chlordiazepoxide HCl (Chlordiazepoxide Hcl 5 Mg Cap) 5 mg PO Q12H JUAN Stop: 06/25/21 01:01 Fluticasone/Vilanterol (Fluticasone/Vilanterol 200/25mcg 14 Puffs/Inhaler) 1 puffs INH DAILY JUAN Stop: 07/21/21 08:59 Last Admin: 06/23/21 08:54 Dose: 1 puffs Documented by: Folic Acid (Folic Acid 1 Mg Tab) 1 mg PO QAM [facility]UAN Stop: 07/20/21 15:44 Last Admin: 06/21/21 08:36 Dose: 1 mg Documented by: Lorazepam (Ativan) 1 mg in 2 mls @ 2 mls/min IV UD PRN; Protocol PRN Reason: EtOH Withdrawl AWSS Score 6,7 Stop: 07/20/21 15:44 Lorazepam (Ativan) 2 mg in 4 mls @ 4 mls/min IV UD PRN; Protocol PRN Reason: EtOH Withdrawl AWSS Score 8,9 Stop: 07/20/21 15:44 Last Admin: 06/22/21 15:31 Dose: 4 mls/min Documented by: Lorazepam (Ativan) 3 mg in 6 mls @ 4 mls/min IV ONCE PRN; Protocol PRN Reason: EtOH Withdrawl AWSS Score >=10 Stop: 07/20/21 15:44 Ceftriaxone Sodium 1,000 mg/ (Dextrose) 50 mls @ 100 mls/hr IV Q24H JUAN; Protocol Stop: 06/25/21 15:59 Last Infusion: 06/22/21 16:00 Dose: Infused Documented by: Thiamine HCl 100 mg/ Syringe 10 mls @ 2 mls/min IV QAM [facility] Stop: 07/21/21 08:59 Last Admin: 06/23/21 08:55 Dose: 2 mls/min Documented by: Folic Acid 1 mg/ Syringe 10 mls @ 5 mls/min IV QAM [facility] Stop: 07/21/21 12:29 Last Admin: 06/23/21 08:53 Dose: 5 mls/min Documented by: Lorazepam (Ativan) 2 mg in 4 mls @ 4 mls/min IV Q2H PRN PRN Reason: Agitation Stop: 07/21/21 15:34 Lorazepam (Ativan) 2 mg in 4 mls @ 4 mls/min IV NOW STA Stop: 06/23/21 09:24 Ipratropium [place] (Ipratropium Hfa Inhaler (Combivent Respimat P&T Subs)) 1 puffs INH BIDR JUAN Stop: 07/20/21 18:59 Last Admin: 06/23/21 07:31 Dose: 1 puffs Documented by: Loratadine (Loratadine 10 Mg Tab) 10 mg PO DAILY JUAN Stop: 07/21/21 08:59 Last Admin: 06/23/21 08:52 Dose: 10 mg Documented by: Melatonin (Melatonin 3 Mg Tab) 3 mg PO HS PRN PRN Reason: Sleep Stop: 07/20/21 22:13 Last Admin: 06/21/21 22:30 Dose: 3 mg Documented by: Miscellaneous (Remove Nicoderm Patch) 1 ea N/A DAILY@0859 [facility] Stop: 07/22/21 08:58 Last Admin: 06/23/21 08:54 Dose: 1 ea Documented by: Montelukast Sodium (Montelukast Sodium 10 Mg Tablet) 10 mg PO HS JUAN Stop: 07/20/21 20:59 Last Admin: 06/22/21 20:00 Dose: 10 mg Documented by: Morphine Sulfate (Morphine Sulfate 2 Mg/Ml Carp) 2 mg IV Q4H PRN PRN Reason: pain Stop: 07/04/21 19:36 Last Admin: 06/23/21 07:38 Dose: 2 mg Documented by: Nicotine (Nicotine 14 Mg/24 Hr Patch) 14 mg TD QAM [facility] Stop: 07/22/21 08:59 Last Admin: 06/23/21 08:53 Dose: 14 mg Documented by: Non-Formulary Medication (Beer 1 Can) 1 can PO TID PRN PRN Reason: withdrawal, agitation Stop: 07/22/21 08:59 Pantoprazole Sodium (Pantoprazole 40 Mg Tab) 40 mg PO DAILY [facility] Stop: 07/21/21 08:59 Last Admin: 06/23/21 08:52 Dose: 40 mg Documented by: Thiamine HCl (Thiamine Hcl 100 Mg Tab) 100 mg PO QAM [facility] Stop: 07/20/21 15:44 Last Admin: 06/21/21 08:36 Dose: 100 mg Documented by: (1) Alcoholic hepatitis Ascites presence: unspecified Qualified Code(s): K70.10 - Alcoholic hepatitis without ascites (2) Alcoholic pancreatitis Acute pancreatitis complication: unspecified Chronicity: acute Qualified Code(s): K85.20 - Alcohol induced acute pancreatitis without necrosis or infection
[2021-06-23] MEDS: POTASSIUM CHLORIDE / WTR 10 MEQ/100 ML PLCT IV SCH ×2 (11:06→14:05)
[2021-06-23] MEDS ORDERED: Nursing to Pharmacy 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 SCH (12:00)
[2021-06-23] MEDS: LORazepam 1 MG/2 ML VIAL IV PRN (13:16)
[2021-06-23] MEDS: cefTRIAXone SODIUM 1,000 MG in DEXTROSE 5% 50 ML IV SCH (16:37)
[2021-06-23] MEDS: LORazepam 2 MG/4 ML VIAL IV PRN (21:26)
[2021-06-23] MEDS: MELATONIN 3 MG TAB PO PRN (21:27)
[2021-06-23] MEDS: MONTELUKAST SODIUM 10 MG TABLET PO SCH (21:27)
[2021-06-23] MEDS: POTASSIUM CHLORIDE CRTAB 20 MEQ TABCR PO SCH (21:27)
[2021-06-24] MEDS: MoRPHine SULFATE 2 MG/ML CARP IV PRN ×4 (02:43→21:10)
[2021-06-24] MEDS: LORazepam 2 MG/4 ML VIAL IV PRN ×3 (03:39→18:47)
[2021-06-24 06:49] LABS: Hematocrit (blood only) 36.2 % (37-47); Mean Corpuscular Hemoglobin 34.6 pg (25-34); Mean Corpuscular Hgb Conc 33.1 g/dL (32-36); Mean Corpuscular Volume 104.3 fL (80-100); Mean Platelet Volume 10.8 fL (7.4-10.4); Platelet Count 286 K/uL (130-400); RDW Coefficient of Variation 12.9 % (11.5-14.5); RDW Standard Deviation 48.9 fL (36.4-46.3); Red Blood Count 3.47 M/uL (4.2-5.4); White Blood Count 7.57 K/uL (4.8-10.8)
[2021-06-24 07:19] LABS: Albumin Level 2.1 gm/dl (3.4-5.0); BUN Creatinine Ratio 3.8 (10-20); Calcium 8.9 mg/dl (8.5-10.1); Est GFR (African American) 146.4 ml/min; Est GFR (Non-African American) 126.3 ml/min; Magnesium 2.2 mg/dl (1.8-2.4); Potassium 3.7 mmol/L (3.5-5.1)
[2021-06-24 07:27] LABS: Albumin Globulin Ratio 0.5 (0.9-2); Bilirubin,Total 1.6 mg/dl (0.2-1); Globulin 4.1 gm/dl (2.5-4.0); Phosphorus 4.5 mg/dl (2.5-4.9); Total Protein 6.2 gm/dl (6.4-8.2)
[2021-06-24] MEDS: Ipratropium HFA Inhaler (Combivent Respimat P&T Subs) INH SCH ×2 (08:13→19:09)
[2021-06-24] MEDS: Albuterol HFA 8 GM Inhaler (Combivent Respimat P&T Subs) INH SCH ×2 (08:14→19:09)
[2021-06-24] MEDS: LORATADINE 10 MG TAB PO SCH (11:12)
[2021-06-24] MEDS: FLUTICASONE/VILANTEROL 200/25MCG 14 PUFFS/INHALER INH SCH (11:12)
[2021-06-24] MEDS: POTASSIUM CHLORIDE CRTAB 20 MEQ TABCR PO SCH ×2 (11:13→21:11)
[2021-06-24] MEDS: buPROPion XL 300 MG TABCR PO SCH (11:13)
[2021-06-24] MEDS: busPIRone 5 MG TAB PO SCH ×3 (11:13→21:10)
[2021-06-24] MEDS: PANTOprazole 40 MG TAB PO SCH (11:14)
[2021-06-24] MEDS: FOLIC ACID 1 MG in SYRINGE 9.8 ML IV SCH (11:15)
[2021-06-24] MEDS: NICOTINE 14 MG/24 HR PATCH TD SCH (11:15)
[2021-06-24] MEDS: THIAMINE HCL 100 MG in SYRINGE 9 ML IV SCH (11:16)
--- NOTE | 2021-06-24 11:27 | Hospitalist Progress Note ---
Date of Service June 24, 2021 Assessment & Plan (1) Alcoholic hepatitis: (2) Alcoholic pancreatitis: Plan: -Patient presenting from home with reports of abdominal pain, nausea, vomiting x 3 days -In the ED, labs show transaminitis (T bili 8.7, AST 194, ALT 89, alk phos 192), lipase 3000 CT ABD/pelvis - shows acute pancreatitis. Peripancreatic edema and focal fluid collection. Possible development of the pancreatic necrosis. Short-term follow- up with contrast-enhanced CT of the abdomen in 5-7 days is suggested. MRCP - 1. Findings of acute pancreatitis, comparable to prior CT. 2. Dilation of the common bile duct to 7 mm without evidence of obstructing stone. - On admission, hemodynamically stable, afebrile, minimal leukocytosis WBC 10.9K -Discriminant function score <32, no indication for steroids at this time - LR decrease to 100 cc/hr, pain control, antiemetics - clear liquid diet -GI consulted, appreciate their input (3) Alcohol abuse: Plan: Alcohol withdrawal - On admission , pt reports a longstanding history of alcoholism, requiring hospitalization 4 to 5 years ago in [place] for alcohol hepatitis. Patient reports going to inpatient rehab following that hospitalization and had remained sober until last year during the COVID-19 pandemic. Patient reports another inpatient rehab stay in July 2020 and had been sober since. Patient reports celebrating the [employer] football game a couple of weeks ago and has been drinking daily since. She reports drinking a half a bottle of " 99 liquor" a day. - On admission, not exhibiting signs of significant alcohol withdrawal - However on 06/21 patient tremulous, not answering questions appropriately, tells me that she sees her mother standing behind me, she is trying to leave the hospital, pulling her IVs out - Continue folic acid and thiamine, IV - Continue alcohol withdrawal protocol with Ativan, add Librium - One-on-one - Upgrade to PCU for close hemodynamic monitoring - canceled overnight as there were no beds in PCU, will reassess throughout the day if PCU transfer necessary again - 06/22 -patient continues to hallucinate when awake, [place] - will try add etoh (beer) to help with withdrawal symptoms Continue to closely monitor - 06/23 -patient is able to answer some questions appropriately, however continues to have poor insight Wants to leave the hospital, even though she continues to have abdominal pain Psychiatry liaison at the bedside -06/24 -patient awake, and would like to leave the hospital Cannot appropriately assess the patient as she does not wish to talk to me today even on my second attempt Reports she continues to have abdominal pain she cannot remember talking about further evaluation such as CT scan, continues to have poor insight Patient's boyfriend updated over the phone, case discussed in detail with nursing staff and psychiatry liaison Patient is medicated in the hospital, not safe to drive by herself, not safe to leave the hospital at this time (4) Electrolyte abnormality: Plan: -Na+ 127, K+ 2.8; on admission -Due to alcohol abuse, GI losses with vomiting -Replace, follow electrolytes, monitor also Mag and Phos (5) Abnormal urinalysis: Plan: Suggest possible UTI Urine culture positive for E. coli, resistant to Bactrim -Started IV ceftriaxone, will cont. (6) Asthma: Plan: -No signs of acute exacerbation, continue home inhalers (7) ADD (attention deficit disorder): (8) Anxiety: Plan: -Continue home medications including bupropion, buspirone, hold Adderall -Patient reports difficulty in setting up outpatient psychiatry appointment - mental health liaison consulted (will discuss when not withdrawing from etoh) Tobacco use Nicotine patch (9) DVT prophylaxis: Plan: -SCDs Admission and Anticipated Discharge Date Admission Date: June 20, 2021 Subjective Patient seen in follow-up of alcoholic pancreatitis/hepatitis, alcohol withdrawal Initially admitted for pancreatitis / hepatitis, however right next day, patient was very tremulous, answering questions inappropriately and hallucinating Patient is actively withdrawing from alcohol Currently she is awake, and wants to leave go to her car She reports she still has some abdominal pain however she does not want to talk to this provider Attempted to see her again, and patient does not want to talk to this provider again Discussed in detail with nursing staff, and psychiatry liaison Tells me she talked her family, who wants her to stay in the hospital I discussed with her that she is not safe yet to leave the hospital She also tells me she continues to have abdominal pain, quite significant, however does not understand that she needs to stay in the hospital Otherwise pt denies fevers chills chest pain, shortness of breath I updated her boyfriend, Zeb, and explained the plan. He told me that she was trying to look for her car keys and go home. I explained that she is not safe to drive/leave the hospital. We are planning to repeat her CT scan for pancreatitis, possible necrosis. She continues to have abdominal pain however I cannot assess if it is much better or not as she is not willing to talk to me today very much. We will continue to closely monitor her. Zeb understands and is in agreement with the plan. Review of Systems Review of Systems: All systems reviewed & are unremarkable except as noted in Subjective Physical Exam Physical Exam: Constitutional: WD/WN, young F, anxious Eyes: EOMI, PERRL ENMT: external ear and nose normal, oropharynx normal Respiratory: normal respiratory effort, lungs clear to auscultation Cardiovascular: + tachycardic Extremities: no edema Gastrointestinal (Abdomen): Inspection/Auscultation: normal bowel sounds Percussion/Palpation: + abdomen tender (Epigastric), soft, + bowel sounds Musculoskeletal: extremities motor strength 5/5 Skin: no rashes, warm and dry Neurologic: PERRL, EOMI, no face palsy, no dysarthria Psychiatric: She is awake and can answer some questions appropriately however she has extremely poor insight, does not want to have any prolonged conversation with me today Results & Data Results & Data ([facility]) Vital Signs (Past 12 Hours) Vital Signs Temp Pulse Resp BP Pulse Ox 06/24/21 08:22 36.9 C 105 H 18 114/89 95 06/24/21 08:05 87 20 95 06/24/21 03:43 36.7 C 94 H 19 115/81 98 Laboratory Results 06/24/21 06/24/21 Range/Units 06:19 06:19 WBC 7.57 (4.8-10.8) K/uL RBC 3.47 L (4.2-5.4) M/uL Hgb 12.0 (12.0-16.0) g/dL Hct 36.2 L (37-47) % MCV 104.3 H (80-100) fL MCH 34.6 H (25-34) pg MCHC 33.1 (32-36) g/dL RDW Std Deviation 48.9 H (36.4-46.3) fL RDW Coeff of Yasmine 12.9 (11.5-14.5) % Plt Count 286 (130-400) K/uL MPV 10.8 H (7.4-10.4) fL Sodium 136 (136-145) mmol/L Potassium 3.7 (3.5-5.1) mmol/L Chloride 106 (98-107) mmol/L Carbon Dioxide 19 L (21-32) mmol/L Anion Gap 10.0 (3-11) BUN 2 L (7-18) mg/dl Creatinine 0.50 L (0.6-1.2) mg/dl Est Cr Clr Drug Dosing 140.0 ml/min Est GFR ( Amer) 146.4 ml/min Est GFR (Non-Af Amer) 126.3 ml/min BUN/Creatinine Ratio 3.8 L (10-20) Glucose 99 (70-99) mg/dl Calcium 8.9 (8.5-10.1) mg/dl Phosphorus 4.5 (2.5-4.9) mg/dl Magnesium 2.2 (1.8-2.4) mg/dl Total Bilirubin 1.6 H (0.2-1) mg/dl AST 56 H (15-37) U/L ALT 43 (12-78) U/L Alkaline Phosphatase 137 H (45-117) U/L Total Protein 6.2 L (6.4-8.2) gm/dl Albumin 2.1 L (3.4-5.0) gm/dl Globulin 4.1 H (2.5-4.0) gm/dl Albumin/Globulin Ratio 0.5 L (0.9-2) Medications Administered Current Inpatient Medications Albuterol (Albuterol Hfa 8 Gm Inhaler (Combivent Respimat P&T Subs)) 1 puffs INH BIDR JUAN Stop: 07/20/21 18:59 Last Admin: 06/24/21 08:14 Dose: 1 puffs Documented by: Amphetamine/Dextroamphetamine (Amphetamine Asp/Sulf/Dextramph 10 Mg Tab) 10 mg PO DAILY JUAN Stop: 07/05/21 08:59 Last Admin: 06/21/21 08:36 Dose: 10 mg Documented by: Amphetamine/Dextroamphetamine (Amphetamine Asp/Sulf/Dextramph 5 Mg Tab) 5 mg PO QDL JUAN Stop: 07/05/21 11:29 Last Admin: 06/21/21 12:33 Dose: Not Given Documented by: Bupropion HCl (Bupropion Xl 300 Mg Tabcr) 300 mg PO QAM [facility] Stop: 07/21/21 08:59 Last Admin: 06/24/21 11:13 Dose: 300 mg Documented by: Buspirone HCl (Buspirone 5 Mg Tab) 5 mg PO TID [facility] Stop: 07/20/21 15:44 Last Admin: 06/24/21 11:13 Dose: 5 mg Documented by: Chlordiazepoxide HCl (Chlordiazepoxide Hcl 5 Mg Cap) 5 mg PO Q12H [facility] Stop: 06/25/21 01:01 Fluticasone/Vilanterol (Fluticasone/Vilanterol 200/25mcg 14 Puffs/Inhaler) 1 puffs INH DAILY [facility] Stop: 07/21/21 08:59 Last Admin: 06/24/21 11:12 Dose: 1 puffs Documented by: Folic Acid (Folic Acid 1 Mg Tab) 1 mg PO QAM [facility] Stop: 07/20/21 15:44 Last Admin: 06/21/21 08:36 Dose: 1 mg Documented by: Lorazepam (Ativan) 1 mg in 2 mls @ 2 mls/min IV UD PRN; Protocol PRN Reason: EtOH Withdrawl AWSS Score 6,7 Stop: 07/20/21 15:44 Last Admin: 06/23/21 13:16 Dose: 2 mls/min Documented by: Lorazepam (Ativan) 2 mg in 4 mls @ 4 mls/min IV UD PRN; Protocol PRN Reason: EtOH Withdrawl AWSS Score 8,9 Stop: 07/20/21 15:44 Last Admin: 06/22/21 15:31 Dose: 4 mls/min Documented by: Lorazepam (Ativan) 3 mg in 6 mls @ 4 mls/min IV ONCE PRN; Protocol PRN Reason: EtOH Withdrawl AWSS Score >=10 Stop: 07/20/21 15:44 Ceftriaxone Sodium 1,000 mg/ (Dextrose) 50 mls @ 100 mls/hr IV Q24H [facility]; Protocol Stop: 06/25/21 15:59 Last Infusion: 06/23/21 17:25 Dose: Infused Documented by: Thiamine HCl 100 mg/ Syringe 10 mls @ 2 mls/min IV QAM [facility] Stop: 07/21/21 08:59 Last Admin: 06/24/21 11:16 Dose: 2 mls/min Documented by: Folic Acid 1 mg/ Syringe 10 mls @ 5 mls/min IV QAM [facility] Stop: 07/21/21 12:29 Last Admin: 06/24/21 11:15 Dose: 5 mls/min Documented by: Lorazepam (Ativan) 2 mg in 4 mls @ 4 mls/min IV Q2H PRN PRN Reason: Agitation Stop: 07/21/21 15:34 Last Admin: 06/24/21 03:39 Dose: 4 mls/min Documented by: Ipratropium [place] (Ipratropium Hfa Inhaler (Combivent Respimat P&T Subs)) 1 puffs INH BIDR [facility] Stop: 07/20/21 18:59 Last Admin: 06/24/21 08:13 Dose: 1 puffs Documented by: Loratadine (Loratadine 10 Mg Tab) 10 mg PO DAILY [facility] Stop: 07/21/21 08:59 Last Admin: 06/24/21 11:12 Dose: 10 mg Documented by: Melatonin (Melatonin 3 Mg Tab) 3 mg PO HS PRN PRN Reason: Sleep Stop: 07/20/21 22:13 Last Admin: 06/23/21 21:27 Dose: 3 mg Documented by: Miscellaneous (Remove Nicoderm Patch) 1 ea N/A DAILY@0859 [facility] Stop: 07/22/21 08:58 Last Admin: 06/24/21 11:14 Dose: 1 ea Documented by: Montelukast Sodium (Montelukast Sodium 10 Mg Tablet) 10 mg PO HS [facility] Stop: 07/20/21 20:59 Last Admin: 06/23/21 21:27 Dose: 10 mg Documented by: Morphine Sulfate (Morphine Sulfate 2 Mg/Ml Carp) 2 mg IV Q4H PRN PRN Reason: pain Stop: 07/04/21 19:36 Last Admin: 06/24/21 02:43 Dose: 2 mg Documented by: Nicotine (Nicotine 14 Mg/24 Hr Patch) 14 mg TD QAM [facility] Stop: 07/22/21 08:59 Last Admin: 06/24/21 11:15 Dose: 14 mg Documented by: Non-Formulary Medication (Beer 1 Can) 1 can PO TID PRN PRN Reason: withdrawal, agitation Stop: 07/22/21 08:59 Pantoprazole Sodium (Pantoprazole 40 Mg Tab) 40 mg PO DAILY [facility] Stop: 07/21/21 08:59 Last Admin: 06/24/21 11:14 Dose: 40 mg Documented by: Potassium Chloride (Potassium Chloride Crtab 20 Meq Tabcr) 20 meq PO BID [facility] Stop: 07/23/21 20:59 Last Admin: 06/24/21 11:13 Dose: 20 meq Documented by: Thiamine HCl (Thiamine Hcl 100 Mg Tab) 100 mg PO QAM [facility] Stop: 07/20/21 15:44 Last Admin: 06/21/21 08:36 Dose: 100 mg Documented by: (1) Alcoholic hepatitis Ascites presence: unspecified Qualified Code(s): K70.10 - Alcoholic hepatitis without ascites (2) Alcoholic pancreatitis Acute pancreatitis complication: unspecified Chronicity: acute Qualified Code(s): K85.20 - Alcohol induced acute pancreatitis without necrosis or infection
[2021-06-24] MEDS: LORazepam 1 MG/2 ML VIAL IV PRN ×2 (11:30→16:22)
[2021-06-24] MEDS: chlordiazePOXIDE HCl 5 MG CAP PO SCH (16:20)
[2021-06-24] MEDS: cefTRIAXone SODIUM 1,000 MG in DEXTROSE 5% 50 ML IV SCH (16:21)
[2021-06-24] MEDS: MELATONIN 3 MG TAB PO PRN (21:10)
[2021-06-24] MEDS: MONTELUKAST SODIUM 10 MG TABLET PO SCH (21:11)
[2021-06-25] MEDS: chlordiazePOXIDE HCl 5 MG CAP PO SCH (01:12)
[2021-06-25] MEDS: MoRPHine SULFATE 2 MG/ML CARP IV PRN ×2 (01:51→07:13)
[2021-06-25] MEDS: FOLIC ACID 1 MG in SYRINGE 9.8 ML IV SCH (07:14)
[2021-06-25] MEDS: THIAMINE HCL 100 MG in SYRINGE 9 ML IV SCH (07:14)
[2021-06-25] MEDS: PANTOprazole 40 MG TAB PO SCH (07:15)
[2021-06-25] MEDS: NICOTINE 14 MG/24 HR PATCH TD SCH (07:15)
[2021-06-25] MEDS: LORATADINE 10 MG TAB PO SCH (07:15)
[2021-06-25] MEDS: buPROPion XL 300 MG TABCR PO SCH (07:15)
[2021-06-25] MEDS: POTASSIUM CHLORIDE CRTAB 20 MEQ TABCR PO SCH (07:15)
[2021-06-25] MEDS: FLUTICASONE/VILANTEROL 200/25MCG 14 PUFFS/INHALER INH SCH (07:16)
[2021-06-25] MEDS: busPIRone 5 MG TAB PO SCH ×2 (07:16→14:01)
[2021-06-25] MEDS: Albuterol HFA 8 GM Inhaler (Combivent Respimat P&T Subs) INH SCH (07:51)
[2021-06-25] MEDS: Ipratropium HFA Inhaler (Combivent Respimat P&T Subs) INH SCH (07:52)
[2021-06-25] MEDS ORDERED: oxyCODONE/ACETAMINOPHEN 5mg/325mg TAB PO PRN (08:08)
[2021-06-25] MEDS: THIAMINE HCL 100 MG TAB PO SCH (08:40)
[2021-06-25] MEDS: FOLIC ACID 1 MG TAB PO SCH (08:40)
[2021-06-25 09:06] LABS: Albumin Level 2.4 gm/dl (3.4-5.0); BUN Creatinine Ratio 4.5 (10-20); Calcium 8.9 mg/dl (8.5-10.1); Creatinine Clr Calc Pharmacy 105.9 ml/min; Est GFR (African American) 134.3 ml/min; Est GFR (Non-African American) 115.8 ml/min; Magnesium 2.2 mg/dl (1.8-2.4); Potassium 4.2 mmol/L (3.5-5.1)
[2021-06-25 09:09] LABS: Albumin Globulin Ratio 0.5 (0.9-2); Bilirubin,Total 1.6 mg/dl (0.2-1); Globulin 4.5 gm/dl (2.5-4.0); Phosphorus 4.7 mg/dl (2.5-4.9); Total Protein 6.9 gm/dl (6.4-8.2)
--- NOTE | 2021-06-25 12:13 | Hospitalist Progress Note ---
Date of Service June 25, 2021 Assessment & Plan (1) Alcoholic hepatitis: (2) Alcoholic pancreatitis: Plan: -Patient presenting from home with reports of abdominal pain, nausea, vomiting x 3 days -In the ED, labs show transaminitis (T bili 8.7, AST 194, ALT 89, alk phos 192), lipase 3000 CT ABD/pelvis - shows acute pancreatitis. Peripancreatic edema and focal fluid collection. Possible development of the pancreatic necrosis. Short-term follow- up with contrast-enhanced CT of the abdomen in 5-7 days is suggested. MRCP - 1. Findings of acute pancreatitis, comparable to prior CT. 2. Dilation of the common bile duct to 7 mm without evidence of obstructing stone. Managed with n.p.o., IV fluid administration, electrolytes replacement and pain medications as needed Appreciate GI input and recommendation-does not require any intervention and does not require any steroid Has been better and tolerating advanced diet without any symptoms Lipase remains normal as of today She will be discharged home this afternoon provided she passes PT and OT evaluation (3) Alcohol abuse: Plan: Alcohol withdrawal - On admission , pt reports a longstanding history of alcoholism, requiring hospitalization 4 to 5 years ago in [place] for alcohol hepatitis. Patient reports going to inpatient rehab following that hospitalization and had remained sober until last year during the COVID-19 pandemic. Patient reports another inpatient rehab stay in July 2020 and had been sober since. Patient reports celebrating the [employer] football game a couple of weeks ago and has been drinking daily since. She reports drinking a half a bottle of " 99 liquor" a day. - On admission, not exhibiting signs of significant alcohol withdrawal - However on 06/21 patient tremulous, not answering questions appropriately, tells me that she sees her mother standing behind me, she is trying to leave the hospital, pulling her IVs out - Continue folic acid and thiamine, IV - Continue alcohol withdrawal protocol with Ativan, add Librium - One-on-one - Upgrade to PCU for close hemodynamic monitoring - canceled overnight as there were no beds in PCU, will reassess throughout the day if PCU transfer necessary again - 06/22 -patient continues to hallucinate when awake, [place] - will try add etoh (beer) to help with withdrawal symptoms Continue to closely monitor - 06/23 -patient is able to answer some questions appropriately, however continues to have poor insight Wants to leave the hospital, even though she continues to have abdominal pain Psychiatry liaison at the bedside -06/24 -patient awake, and would like to leave the hospital Cannot appropriately assess the patient as she does not wish to talk to me today even on my second attempt Reports she continues to have abdominal pain she cannot remember talking about further evaluation such as CT scan, continues to have poor insight Patient's boyfriend updated over the phone, case discussed in detail with nursing staff and psychiatry liaison Patient is medicated in the hospital, not safe to drive by herself, not safe to leave the hospital at this time 06/25/2021 Denies any symptoms today and has been tolerating advanced diet without abdominal pain, nausea and or vomiting She does not have any tremors on outstretched hands and she has not been requiring any Ativan for the last 24 hours or so She remains mentally clear Her labs did not show any acute pancreatitis She will have repeat CT of the abdomen as an outpatient as recommended by the radiologist She will get PT and OT evaluation prior to discharge She refused to go to inpatient rehab and she will go with outpatient rehab as before as per the immigration case manager (4) Electrolyte abnormality: Plan: -Na+ 127, K+ 2.8; on admission -Due to alcohol abuse, GI losses with vomiting -Replace, follow electrolytes, monitor also Mag and Phos -Electrolytes are unremarkable (5) Abnormal urinalysis: Plan: Suggest possible UTI Urine culture positive for E. coli, resistant to Bactrim -Started IV ceftriaxone, will cont. -We will give 2 more doses of oral antibiotic to finish the course (6) Asthma: Plan: -No signs of acute exacerbation, continue home inhalers (7) ADD (attention deficit disorder): Plan: Continue outpatient medications (8) Anxiety: Plan: -Continue home medications including bupropion, buspirone, hold Adderall -Patient reports difficulty in setting up outpatient psychiatry appointment - mental health liaison consulted (will discuss when not withdrawing from etoh) Tobacco use Nicotine patch (9) DVT prophylaxis: Plan: -SCDs Admission and Anticipated Discharge Date Admission Date: June 20, 2021 Subjective 06/25/2021 The patient was seen and examined in medical telemetry unit She is only 36-year-old female with history of alcohol abuse was admitted on 20 June with abdominal pain, nausea and vomiting for 3 days prior to admission Noted to have alcoholic pancreatitis with alcoholic hepatitis and alcoholism She has been free of any pain, tolerating regular diet without any nausea or vomiting and denies any tremors and no palpitation Review of Systems Review of Systems: All systems reviewed and are unremarkable except as noted below Gastrointestinal: No abdominal pain, nausea and or vomiting Musculoskeletal: No acute arthritis in any joint Neurologic: Alert, awake and oriented x3. No tremors involving the outstretched hands Physical Exam Physical Exam: Lying in bed comfortably Constitutional: well developed, well nourished and average body habitus; not ill appearing Respiratory: no respiratory distress Auscultation: lungs clear to auscultation bilaterally Cardiovascular: Rate/Rhythm: regular rate and regular rhythm; not tachycardic Heart Sounds: normal S1 and normal S2; no murmur Extremities: no edema Gastrointestinal (Abdomen): Inspection/Auscultation: abdomen not distended Percussion/Palpation: abdomen soft; abdomen nontender Musculoskeletal: No acute arthritis in any joint Neurologic: Alert, awake and oriented x3. No focal sensory or motor deficit appreciated Psychiatric: No acute psychosis Results & Data Results & Data ([facility]) Vital Signs (Past 12 Hours) Vital Signs Temp Pulse Pulse Resp BP Pulse Ox 06/25/21 11:40 36.6 C 104 H 18 102/71 97 06/25/21 11:15 36.7 C 110 H 102/71 98 06/25/21 07:52 101 H 14 94 06/25/21 03:11 37.1 C 99 H 18 93/59 L 97 06/25/21 01:09 97 H 06/25/21 01:06 96 H Laboratory Results [facility] 06/25/21 08:14 Sodium 137 Potassium 4.2 Chloride 107 Carbon Dioxide 22 BUN 3 L Creatinine 0.65 Glucose 101 H Calcium 8.9 Liver Function 06/25/21 Range/Units 08:14 Total Bilirubin 1.6 H (0.2-1) mg/dl AST 61 H (15-37) U/L ALT 45 (12-78) U/L Alkaline Phosphatase 145 H (45-117) U/L Albumin 2.4 L (3.4-5.0) gm/dl Medications Administered Current Inpatient Medications Albuterol (Albuterol Hfa 8 Gm Inhaler (Combivent Respimat P&T Subs)) 1 puffs INH BIDR [facility] Stop: 07/20/21 18:59 Last Admin: 06/25/21 07:51 Dose: 1 puffs Documented by: Amphetamine/Dextroamphetamine (Amphetamine Asp/Sulf/Dextramph 10 Mg Tab) 10 mg PO DAILY [facility] Stop: 07/05/21 08:59 Last Admin: 06/21/21 08:36 Dose: 10 mg Documented by: Amphetamine/Dextroamphetamine (Amphetamine Asp/Sulf/Dextramph 5 Mg Tab) 5 mg PO QDL [facility] Stop: 07/05/21 11:29 Last Admin: 06/21/21 12:33 Dose: Not Given Documented by: Bupropion HCl (Bupropion Xl 300 Mg Tabcr) 300 mg PO QAM [facility] Stop: 07/21/21 08:59 Last Admin: 06/25/21 07:15 Dose: 300 mg Documented by: Buspirone HCl (Buspirone 5 Mg Tab) 5 mg PO TID [facility] Stop: 07/20/21 15:44 Last Admin: 06/25/21 14:01 Dose: 5 mg Documented by: Fluticasone/Vilanterol (Fluticasone/Vilanterol 200/25mcg 14 Puffs/Inhaler) 1 puffs INH DAILY [facility] Stop: 07/21/21 08:59 Last Admin: 06/25/21 07:16 Dose: 1 puffs Documented by: Folic Acid (Folic Acid 1 Mg Tab) 1 mg PO QAM [facility] Stop: 07/20/21 15:44 Last Admin: 06/25/21 08:40 Dose: Not Given Documented by: Lorazepam (Ativan) 1 mg in 2 mls @ 2 mls/min IV UD PRN; Protocol PRN Reason: EtOH Withdrawl AWSS Score 6,7 Stop: 07/20/21 15:44 Last Admin: 06/24/21 16:22 Dose: 2 mls/min Documented by: Ceftriaxone Sodium 1,000 mg/ (Dextrose) 50 mls @ 100 mls/hr IV Q24H [facility]; Protocol Stop: 06/25/21 15:59 Last Infusion: 06/24/21 17:28 Dose: Infused Documented by: Ipratropium [employer] (Ipratropium Hfa Inhaler (Combivent Respimat P&T Subs)) 1 puffs INH BIDR [facility] Stop: 07/20/21 18:59 Last Admin: 06/25/21 07:52 Dose: 1 puffs Documented by: Loratadine (Loratadine 10 Mg Tab) 10 mg PO DAILY [facility] Stop: 07/21/21 08:59 Last Admin: 06/25/21 07:15 Dose: 10 mg Documented by: Melatonin (Melatonin 3 Mg Tab) 3 mg PO HS PRN PRN Reason: Sleep Stop: 07/20/21 22:13 Last Admin: 06/24/21 21:10 Dose: 3 mg Documented by: Miscellaneous (Remove Nicoderm Patch) 1 ea N/A DAILY@0859 [facility] Stop: 07/22/21 08:58 Last Admin: 06/25/21 07:15 Dose: 1 ea Documented by: Montelukast Sodium (Montelukast Sodium 10 Mg Tablet) 10 mg PO HS [facility] Stop: 07/20/21 20:59 Last Admin: 06/24/21 21:11 Dose: 10 mg Documented by: Morphine Sulfate (Morphine Sulfate 2 Mg/Ml Carp) 2 mg IV Q4H PRN PRN Reason: pain Stop: 07/04/21 19:36 Last Admin: 06/25/21 07:13 Dose: 2 mg Documented by: Nicotine (Nicotine 14 Mg/24 Hr Patch) 14 mg TD QAM [facility] Stop: 07/22/21 08:59 Last Admin: 06/25/21 07:15 Dose: 14 mg Documented by: Non-Formulary Medication (Beer 1 Can) 1 can PO TID PRN PRN Reason: withdrawal, agitation Stop: 07/22/21 08:59 Oxycodone/Acetaminophen (Oxycodone/Acetaminophen 5mg/325mg Tab) 1 tab PO Q6H PRN PRN Reason: Pain Stop: 07/09/21 08:07 Pantoprazole Sodium (Pantoprazole 40 Mg Tab) 40 mg PO DAILY [facility] Stop: 07/21/21 08:59 Last Admin: 06/25/21 07:15 Dose: 40 mg Documented by: Potassium Chloride (Potassium Chloride Crtab 20 Meq Tabcr) 20 meq PO BID [facility] Stop: 07/23/21 20:59 Last Admin: 06/25/21 07:15 Dose: 20 meq Documented by: Thiamine HCl (Thiamine Hcl 100 Mg Tab) 100 mg PO QAM [facility] Stop: 07/20/21 15:44 Last Admin: 06/25/21 08:40 Dose: Not Given Documented by: (1) Alcoholic hepatitis Ascites presence: unspecified Qualified Code(s): K70.10 - Alcoholic hepatitis without ascites (2) Alcoholic pancreatitis Acute pancreatitis complication: unspecified Chronicity: acute Qualified Code(s): K85.20 - Alcohol induced acute pancreatitis without necrosis or infection
[2021-06-25] MEDS ORDERED: LORazepam 0.5 MG TAB PO STA (15:19)
[2021-06-26 07:30] LABS: Methyl Alcohol Comment WHOLE BLOOD; Methyl Alcohol Level NONE DETECTED (NONE DETECTED)
--- NOTE | 2021-06-28 07:25 | Discharge Summary ---
Date of Service June 28, 2021 Admission HPI Per Admitting Provider 36-year-old female with PMH asthma, ADD, anxiety, alcoholism, and other problems listed below who presents the ED for evaluation abdominal pain, nausea, vomiting. Patient reports a longstanding history of alcoholism, requiring hospitalization 4 to 5 years ago in [place] for alcohol hepatitis. Patient reports going to inpatient rehab following that hospitalization and had remained sober until last year during the COVID-19 pandemic. Patient reports another inpatient rehab stay in July 2020 and had been sober since. Patient reports celebrating the [employer] game a couple of weeks ago and has been drinking daily since. She reports drinking a half a bottle of " 99 liquor" a day. 3 days ago, she reports she developed generalized abdominal pain, nausea, vomiting. She denies hematemesis and coffee-ground emesis. No diarrhea, bright red bleeding per rectum, dark tarry stools. Patient stopped drinking when she started to get sick. She reports some mild intermittent tremors. No chest pain or shortness of breath. Reports a mild cough productive for clear sputum. No fevers or chills. Denies urinary symptoms. In the ED, labs show Na+ 127, K+ 2.8, transaminitis (T bili 8.7, AST 194, ALT 99, alk phos 192). CT ABD/pelvis shows acute pancreatitis. Peripancreatic edema and focal fluid collection. Possible development of the pancreatic necrosis. UA suggest possible UTI. Patient was given IV folic acid, IV ketorolac, IV morphine, IV thiamine. Admission Exam Per Admitting Provider Constitutional: WD/WN, vitals as above Eyes: + scleral abnormality (Sclera icteric) and PERRL; no conjunctival abnormality ENMT: external ear and nose normal, oropharynx normal Respiratory: normal respiratory effort, lungs clear to auscultation Cardiovascular: Rate/Rhythm: regular rhythm and + tachycardic Vessels: normal peripheral pulses Extremities: no edema Gastrointestinal (Abdomen): Inspection/Auscultation: normal bowel sounds Percussion/Palpation: + abdomen tender (Epigastric) and abdomen soft; no hepatosplenomegaly Musculoskeletal: no cyanosis or clubbing, extremities motor strength 5/5 Skin: no rashes, warm and dry Neurologic: PERRL, EOMI, accommodation nl, no face palsy, no dysarthria Psychiatric: A+Ox3, euthymic affect Principal Diagnosis Alcoholic pancreatitis, alcoholic hepatitis with alcohol abuse, ADD, asthma, anxiety Discharge Exam Constitutional well developed, well nourished and average body habitus; not ill appearing Respiratory no respiratory distress Auscultation: lungs clear to auscultation bilaterally Cardiovascular Rate/Rhythm: regular rate and regular rhythm; not tachycardic Heart Sounds: normal S1 and normal S2; no murmur Extremities: no edema Gastrointestinal (Abdomen) Inspection/Auscultation: abdomen not distended Percussion/Palpation: abdomen soft; abdomen nontender Discharge Data Allergies Allergy/AdvReac Type Severity Reaction Status Date / Time banana Allergy Unknown Unknown Verified 06/25/21 16:14 Penicillins Allergy Unknown Unknown Verified 06/24/20 13:04 Consultations 06/20/21 09:40 ED Decision to Admit Stat 06/20/21 11:04 Consult Gastroenterology Routine 06/20/21 11:08 Consult Behavioral Health Liaison Routine Ordered Studies 06/20/21 07:22 CT abd pelvis IV con only Stat 06/20/21 14:20 MR MRCP Stat Hospital Course (1) Alcoholic hepatitis: (2) Alcoholic pancreatitis: -Patient presenting from home with reports of abdominal pain, nausea, vomiting x 3 days -In the ED, labs show transaminitis (T bili 8.7, AST 194, ALT 89, alk phos 192), lipase 3000 CT ABD/pelvis - shows acute pancreatitis. Peripancreatic edema and focal fluid collection. Possible development of the pancreatic necrosis. Short-term follow- up with contrast-enhanced CT of the abdomen in 5-7 days is suggested. MRCP - 1. Findings of acute pancreatitis, comparable to prior CT. 2. Dilation of the common bile duct to 7 mm without evidence of obstructing stone. Managed with n.p.o., IV fluid administration, electrolytes replacement and pain medications as needed Appreciate GI input and recommendation-does not require any intervention and does not require any steroid Has been better and tolerating advanced diet without any symptoms Lipase remains normal as of today She will be discharged home this afternoon provided she passes PT and OT evaluation (3) Alcohol abuse: Alcohol withdrawal - On admission , pt reports a longstanding history of alcoholism, requiring hospitalization 4 to 5 years ago in [place] for alcohol hepatitis. Patient reports going to inpatient rehab following that hospitalization and had remained sober until last year during the COVID-19 pandemic. Patient reports another inpatient rehab stay in July 2020 and had been sober since. Patient reports celebrating the [employer] football game a couple of weeks ago and has been drinking daily since. She reports drinking a half a bottle of " 99 liquor" a day. - On admission, not exhibiting signs of significant alcohol withdrawal - However on 06/21 patient tremulous, not answering questions appropriately, tells me that she sees her mother standing behind me, she is trying to leave the hospital, pulling her IVs out - Continue folic acid and thiamine, IV - Continue alcohol withdrawal protocol with Ativan, add Librium - One-on-one - Upgrade to PCU for close hemodynamic monitoring - canceled overnight as there were no beds in PCU, will reassess throughout the day if PCU transfer necessary again - 06/22 -patient continues to hallucinate when awake, [place] - will try add etoh (beer) to help with withdrawal symptoms Continue to closely monitor - 06/23 -patient is able to answer some questions appropriately, however continues to have poor insight Wants to leave the hospital, even though she continues to have abdominal pain Psychiatry liaison at the bedside -06/24 -patient awake, and would like to leave the hospital Cannot appropriately assess the patient as she does not wish to talk to me today even on my second attempt Reports she continues to have abdominal pain she cannot remember talking about further evaluation such as CT scan, continues to have poor insight Patient's boyfriend updated over the phone, case discussed in detail with nursing staff and psychiatry liaison Patient is medicated in the hospital, not safe to drive by herself, not safe to leave the hospital at this time 06/25/2021 Denies any symptoms today and has been tolerating advanced diet without abdominal pain, nausea and or vomiting She does not have any tremors on outstretched hands and she has not been requiring any Ativan for the last 24 hours or so She remains mentally clear Her labs did not show any acute pancreatitis She will have repeat CT of the abdomen as an outpatient as recommended by the radiologist She will get PT and OT evaluation prior to discharge She refused to go to inpatient rehab and she will go with outpatient rehab as before as per the machine adjuster leader case trim (4) Electrolyte abnormality: -Na+ 127, K+ 2.8; on admission -Due to alcohol abuse, GI losses with vomiting -Replace, follow electrolytes, monitor also Mag and Phos -Electrolytes are unremarkable (5) Abnormal urinalysis: Suggest possible UTI Urine culture positive for E. coli, resistant to Bactrim -Started IV ceftriaxone, will cont. -We will give 2 more doses of oral antibiotic to finish the course (6) Asthma: -No signs of acute exacerbation, continue home inhalers (7) ADD (attention deficit disorder): Continue outpatient medications (8) Anxiety: -Continue home medications including bupropion, buspirone, hold Adderall -Patient reports difficulty in setting up outpatient psychiatry appointment - mental health liaison consulted (will discuss when not withdrawing from etoh) Tobacco use Nicotine patch (9) DVT prophylaxis: -SCDs Total Time Total Time Spent Total Time Spent (In Minutes): 35 minutes Discharge Plan Discharge Items Patient Disposition: Home - Self-Care Reason For Visit: ETOH HEPATITIS,PANCREATITIS Discharge Diagnosis: Alcoholic pancreatitis, alcoholic hepatitis with alcohol abuse, ADD, asthma, anxiety Condition on Discharge: Good Activity: Resume your previous activity Non-emergency contact: Primary Care Provider Call non-emergency contact if: you have any medication questions and your symp toms worsen Follow-up/Referrals: Zaina Bunch MD [Primary Care Provider] - ( Date & Time 06/28/2021 11:00 AM Provider Zaina Bunch MD Department General Internal [facility] ) Diet: Regular Addtl Attending Provider Instructions: Please take precautions to avoid fall Strongly advised to quit drinking of alcohol Please have follow-up appointment with alcohol Anonymous group as an outpatient as advised by the machine adjuster leader case trim Keep appointment with your primary care provider and also her other specialist Pending Studies at Discharge: No Stand-Alone Forms: My [employer], Work/School Release, Smoking Cessation Medications and DC Order Prescriptions: New thiamine HCl (vitamin B1) [Vitamin B-1] 100 mg Tablet 100 mg PO QAM Qty: 30 RF: 0 folic acid 1 mg Tablet 1 mg PO QAM 30 Days Qty: 30 RF: 0 nicotine 14 mg/24 hr patch 24 hour 1 patch transdermal DAILY Qty: 28 RF: 0 Continued buspirone 5 mg Tablet 5 mg PO TID RF: 0 bupropion HCl [Wellbutrin XL] 300 mg Tablet Extended Release 24 Hr 300 mg PO QAM RF: 0 albuterol sulfate [ProAir HFA] 90 mcg/actuation Hfa Aerosol Inhaler 1 inh INHALATION QID PRN (Reason: sob) RF: 0 omeprazole 20 mg Capsule,Delayed Release(Dr/Ec) 20 mg PO DAILY RF: 0 montelukast 10 mg Tablet 10 mg PO HS RF: 0 dextroamphetamine-amphetamine [Adderall] 5 mg Tablet 10 mg PO DAILY RF: 0 dextroamphetamine-amphetamine [Adderall] 5 mg Tablet 5 mg PO QDL RF: 0 loratadine 10 mg Tablet 10 mg PO DAILY RF: 0 budesonide-formoterol [Symbicort] 160-4.5 mcg/actuation Hfa Aerosol Inhaler 2 puff INHALATION BID RF: 0 Combivent Respimat 20-100 mcg/actuation Mist 1 puff INHALATION BID RF: 0 ipratropium-albuterol 0.5 mg-3 mg(2.5 mg base)/3 mL Solution For Nebulization 3 ml INHALATION Q4H PRN (Reason: Shortness Of Breath) RF: 0 Discharge Orders: Discharge Order (Routine); Ordered 06/25/21 Ordered By: Hellen Mayfield Admission Data Admit Date/Time: 06/20/21 10:03 Attending Provider: Hellen Mayfield Admit Provider: Mal Piper Primary Care Provider: Zaina Bunch Other Providers: Lavon Salcido ; Mal Piper Other Interventions: Discharge Summary Assessment (RN) Last Done: 06/25/21 15:37
== END 2021-06-25 16:23 | disposition home or self-care (01) ==
LOC: ED 06:29 → 2N 10:03 → INTOOBSV 10:03 → SUATTDRO 10:03 → 2N 14:17

== ENCOUNTER 2021-10-03 06:34 | Inpatient (IN) ==
[2021-10-03] MEDS ORDERED: LORazepam 1 MG/2 ML VIAL IV STA ×3 (07:08→09:06)
[2021-10-03] MEDS ORDERED: MULTI-VITAMIN INFUSION 10 ML, THIAMINE HCL 100 MG, FOLIC ACID 1 MG in SODIUM CHLORIDE 0... IV ONE (07:08)
--- NOTE | 2021-10-03 07:32 | Emergency Department Note ---
History of Present Illness General Chief complaint: Abdominal Pain Stated complaint: YELLOW SKIN/EYES,ABD PAIN,COUGH Time Seen by Provider: 10/03/21 06:59 Source: patient Mode of arrival: ambulatory Limitations: no limitations History of Present Illness Maximum Pain Intensity: 8 This patient is a 36 old female who has history of alcoholism and pancreatitis, comes in after an abdominal pain for the last several days is in her epigastric area. She is also had a cough for few days. She had the COVID-vaccine x2 but not the booster. 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 She feels shaky and nauseated she vomited once this morning without blood or coffee grounds. She has had normal bowel movements without blood or melena. She says her abdomen does not hurt to push but just feels like it is distended like her previous pancreatitis denies . No dysuria hematuria no trauma or injury. No fever or chills no chest pain. The last time she drank was last evening. She does get shaky and nauseated when she does not get shaky and nauseated when she does not drink. Home Medications Medication Instructions Recorded Confirmed Type albuterol sulfate 90 mcg/actuation 1 inh INHALATION QID PRN 06/24/20 10/03/21 History aerosol inhaler (ProAir HFA) bupropion HCl 300 mg 24 hr tablet, 300 mg PO QAM 06/24/20 10/03/21 History extended release (Wellbutrin XL) buspirone 5 mg tablet 10 mg PO TID 06/24/20 10/03/21 History budesonide-formoterol HFA 160 2 puff INHALATION BID 06/20/21 10/03/21 History mcg-4.5 mcg/actuation aerosol inhaler (Symbicort) dextroamphetamine-amphetamine 5 mg 5 mg PO QDL 06/20/21 10/03/21 History tablet (Adderall) dextroamphetamine-amphetamine 5 mg 10 mg PO DAILY 06/20/21 10/03/21 History tablet (Adderall) ipratropium 20 mcg-albuterol 100 1 puff INHALATION BID 06/20/21 10/03/21 History mcg/actuation mist for inhalation (Combivent Respimat) loratadine 10 mg tablet 10 mg PO DAILY 06/20/21 10/03/21 History montelukast 10 mg tablet 10 mg PO HS 06/20/21 10/03/21 History omeprazole 20 mg capsule,delayed 20 mg PO DAILY 06/20/21 10/03/21 History release nicotine 14 mg/24 hr daily 1 patch TRANSDERMAL DAILY #28 ea 06/25/21 10/03/21 Rx transdermal patch azelastine 137 mcg (0.1 %) nasal 1 spray INTRANASAL BID 10/03/21 10/03/21 History spray aerosol fluticasone propionate 50 2 spray INTRANASAL DAILY 10/03/21 10/03/21 History mcg/actuation nasal spray,suspension multivitamin 1 tab PO DAILY 10/03/21 10/03/21 History Allergies Allergy/AdvReac Type Severity Reaction Status Date / Time banana Allergy Intermediate RASH, Verified 08/13/21 15:11 THROAT SLIGHTLY SWOLLEN Penicillins Allergy Unknown HAPPENED Verified 08/13/21 15:11 A CHILD Past Med/Surg History Medical History ADD (attention deficit disorder) Alcohol abuse Alcoholic hepatitis Alcoholic pancreatitis Allergic sinusitis Anxiety Asthma Depression Fatty liver Surgical History No significant past surgical history Family History Grandmother Breast cancer Grandfather Heart disease Social History Smoking Status: Current every day smoker Tobacco Type: Cigarettes Second Hand Exposure: No; Hx Alcohol Use: Yes Alcohol type: hard liquor Hx Substance Use: No Preferred Language: Citizen Of [place] 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 Ability: Effective Display Artist Required: No Beliefs That Will Affect Care: None marital status: Single Current Living Situation: Significant Other current occupational status: employed Feels Safe at Home: Yes Assistive Devices: None Review of Systems A total of 10 systems reviewed and were otherwise negative Physical Exam Vital Signs Vital Signs - 24 hr 10/03/21 06:37 10/03/21 08:35 Temperature 36.5 C Temperature Source Temporal Artery Scan Pulse Rate 129 H Pulse Rate [Apical] 112 H Pulse Rhythm [Apical] Regular Pulse Strength [Apical] Normal Respiratory Rate 20 18 Respiratory Effort / Characteristics Non-Labored Spontaneous Respiratory Depth Normal Normal Blood Pressure 118/76 Blood Pressure [Right Arm] 116/87 Blood Pressure Mean 90 Blood Pressure Mean [Right Arm] 96 Pulse Oximetry 98 95 Oxygen Delivery Method Room Air Room Air Sepsis New/Unexplained Change in Mental Status N/A Sepsis Action Taken by Nursing No Action Required General: Well developed well nourished mildly shaky young female who otherwise appears in no acute distress, breathing comfortably on room air. Normal speech HEENT: Normal cephalic atraumatic. Pupils are equal round and reactive to light. Sclera are icteric. extraocular movements are intact. Oropharynx is pink with moist mucous membranes. No swelling of the mouth lips or tongue. Neck: Supple with a midline trachea. No meningeal signs or stiffness, no JVD or bruits. No Stridor. Chest: Clear to auscultation bilaterally. No wheezes or rhonchi. No increased work of breathing. Heart: Regular rate and rhythm without murmurs or gallops. Abdomen: Soft nontender. She does appear to be distended but nontender without rebound guarding or rigidity. Extremities: No cyanosis clubbing or edema. No calf tenderness or assymetry Spine/Back. Non tender to palpation. No CVA tenderness Skin: Good turgor without rashes. Jaundiced Neurologic exam: Cranial nerves two through 12 are intact. Motor and sensation are intact and symmetrical throughout. Course Administered Medications Discontinued Medications Gabapentin (Gabapentin 1200mg Alcohol Withdrawal Load) 1 ea PO NOW STA; Protocol Stop: 10/03/21 09:57 Last Admin: 10/03/21 11:29 Dose: Not Given Documented by: [id number] Gabapentin (Gabapentin 600 Mg Tab) 1,200 mg PO NOW ONE Stop: 10/03/21 10:16 Last Admin: 10/03/21 11:29 Dose: 1,200 mg Documented by: [id number] Lorazepam (Ativan) 1 mg in 2 mls @ 2 mls/min IV NOW STA Stop: 10/03/21 07:09 Last Admin: 10/03/21 07:44 Dose: 2 mls/min Documented by: [id number] Multivitamins 10 ml/ Thiamine HCl 100 mg/ Folic Acid 1 mg/Sodium Chloride 1,011 .2 mls @ 1,011.2 mls/hr IV .Q1H ONE Stop: 10/03/21 08:07 Last Infusion: 10/03/21 08:49 Dose: 0 mls/hr Documented by: [id number] Admin: 10/03/21 07:45 Dose: 1,011.2 mls/hr Documented by: [id number] Lorazepam (Ativan) 1 mg in 2 mls @ 2 mls/min IV NOW STA Stop: 10/03/21 08:14 Last Admin: 10/03/21 08:31 Dose: 2 mls/min Documented by: [id number] Magnesium Sulfate/Dextrose (Magnesium Sulfate / D5w) 1 gm in 100 mls @ 100 mls/hr IV NOW STA Stop: 10/03/21 09:50 Last Infusion: 10/03/21 10:16 Dose: 0 mls/hr Documented by: [id number] Admin: 10/03/21 09:15 Dose: 100 mls/hr Documented by: [id number] Lorazepam (Ativan) 1 mg in 2 mls @ 2 mls/min IV NOW STA Stop: 10/03/21 09:07 Last Admin: 10/03/21 09:38 Dose: 2 mls/min Documented by: [id number] Ioversol (Optiray 320 100ml) 95 ml IV ONCE ONE Stop: 10/03/21 10:18 Last Admin: 10/03/21 10:19 Dose: 95 ml Documented by: [id number] Ondansetron HCl (Ondansetron Inj 2 Mg/Ml 2 Ml Vial) 4 mg IV NOW STA Stop: 10/03/21 08:15 Last Admin: 10/03/21 08:31 Dose: 4 mg Documented by: [id number] Critical Care Time Critical Care Time: Yes Total Critical Care Time: 30 Due to the patient's alcohol withdrawal, need for multiple IV benzodiazepines IV banana bag as well as frequent reassessment and evaluation and further evaluation in the ED with specialists, I have personally spent greater than 30 minutes of critical care time in the direct management of this patient. This includes bedside care, interpretation of diagnostic studies, and testing, discussion with consultants, patient, and family members, and other required patient management activities. This 30 minutes is in excess of all separately billable procedures. Medical Decision Making Differential Diagnosis Alcoholism, alcohol withdrawal, pancreatitis, liver disease, liver failure, electrolyte or metabolic abnormality, gallbladder disease, malignancy, COVID, pneumonia Medical Records Attestation: I reviewed the patient's medical records. Home Medications Current Medication List: was personally reviewed by me Laboratory Data Attestation: I reviewed the patient's lab results. Result diagrams: 10/03/21 07:28 10/03/21 09:08 Lab Results 10/03/21 10/03/21 10/03/21 Range/Units 07:28 07:28 07:28 WBC 11.39 H (4.8-10.8) K/uL RBC 3.26 L (4.2-5.4) M/uL Hgb 11.1 L (12.0-16.0) g/dL Hct 33.4 L (37-47) % MCV 102.5 H (80-100) fL MCH 34.0 (25-34) pg MCHC 33.2 (32-36) g/dL RDW Std Deviation 63.4 H (36.4-46.3) fL RDW Coeff of Yasmine 17.1 H (11.5-14.5) % Plt Count 174 (130-400) K/uL MPV 11.2 H (7.4-10.4) fL Immature Gran % (Auto) 0.5 % Neut % (Auto) 80.8 % Lymph % (Auto) 9.9 % [place] % (Auto) 8.2 % Eos % (Auto) 0.2 % Baso % (Auto) 0.4 % Neut # (Auto) 9.21 H (1.4-6.5) K/uL Lymph # (Auto) 1.13 L (1.2-3.4) K/uL [place] # (Auto) 0.93 H (0.11-0.59) K/uL Eos # (Auto) 0.02 (0-0.5) K/uL Baso # (Auto) 0.04 (0-0.2) K/uL Immature Gran # (Auto) 0.06 H (0.00-0.02) K/uL Sodium 133 L (136-145) mmol/L Potassium (3.5-5.1) mmol/L Chloride 96 L (98-107) mmol/L Carbon Dioxide 19 L (21-32) mmol/L Anion Gap 18 H (3-11) BUN 2 L (6-23) mg/dl Creatinine 0.56 L (0.6-1.2) mg/dl Est Cr Clr Drug Dosing 128.7 ml/min Est GFR ( Amer) 141.0 ml/min Est GFR (Non-Af Amer) 121.7 ml/min BUN/Creatinine Ratio 3.6 L (10-20) Glucose 152 H (70-99) mg/dl Calcium 7.6 L (8.5-10.1) mg/dl Magnesium 1.6 L (1.7-2.4) mg/dl Total Bilirubin 11.3 H (0.2-1.0) mg/dl Direct Bilirubin (0-0.2) mg/dl AST (13-39) U/L ALT 59 H (7-52) U/L Alkaline Phosphatase 325 H (34-104) U/L Total Protein 6.1 (6.0-8.3) gm/dl Albumin 2.9 L (3.4-5.0) gm/dl Globulin 3.2 (2.5-4.0) gm/dl Albumin/Globulin Ratio 0.9 (0.9-2) Lipase 10 L (11-82) U/L Ethyl Alcohol mg/dL < 10.0 H (0-9.9) mg/dl SARS-CoV-2 (PCR) (Negative) Influenza Type A (PCR) (Neg) Influenza Type B (PCR) (Neg) RSV (RT-PCR) (Neg) 10/03/21 10/03/21 10/03/21 Range/Units 07:35 09:08 09:08 WBC (4.8-10.8) K/uL RBC (4.2-5.4) M/uL Hgb (12.0-16.0) g/dL Hct (37-47) % MCV (80-100) fL MCH (25-34) pg MCHC (32-36) g/dL RDW Std Deviation (36.4-46.3) fL RDW Coeff of Yasmine (11.5-14.5) % Plt Count (130-400) K/uL MPV (7.4-10.4) fL Immature Gran % (Auto) % Neut % (Auto) % Lymph % (Auto) % [place] % (Auto) % Eos % (Auto) % Baso % (Auto) % Neut # (Auto) (1.4-6.5) K/uL Lymph # (Auto) (1.2-3.4) K/uL [place] # (Auto) (0.11-0.59) K/uL Eos # (Auto) (0-0.5) K/uL Baso # (Auto) (0-0.2) K/uL Immature Gran # (Auto) (0.00-0.02) K/uL Sodium (136-145) mmol/L Potassium 3.5 (3.5-5.1) mmol/L Chloride (98-107) mmol/L Carbon Dioxide (21-32) mmol/L Anion Gap (3-11) BUN (6-23) mg/dl Creatinine (0.6-1.2) mg/dl Est Cr Clr Drug Dosing ml/min Est GFR ( Amer) ml/min Est GFR (Non-Af Amer) ml/min BUN/Creatinine Ratio (10-20) Glucose (70-99) mg/dl Calcium (8.5-10.1) mg/dl Magnesium (1.7-2.4) mg/dl Total Bilirubin (0.2-1.0) mg/dl Direct Bilirubin 6.7 H (0-0.2) mg/dl AST 196 H (13-39) U/L ALT (7-52) U/L Alkaline Phosphatase (34-104) U/L Total Protein (6.0-8.3) gm/dl Albumin (3.4-5.0) gm/dl Globulin (2.5-4.0) gm/dl Albumin/Globulin Ratio (0.9-2) Lipase (11-82) U/L Ethyl Alcohol mg/dL (0-9.9) mg/dl SARS-CoV-2 (PCR) NEGATIVE (Negative) Influenza Type A (PCR) Negative (Neg) Influenza Type B (PCR) Negative (Neg) RSV (RT-PCR) Negative (Neg) Imaging Data Attestation: I personally reviewed and interpreted this imaging study as fol lows: My Impression: Chest x-rayno free air. No acute infiltrates, failure, pneumothorax Radiologist's Impression: Chest X-Ray 10/03/21 07:32 XR chest 1V portable CLINICAL HISTORY: cough. COMPARISON STUDY: 06/20/2021 TECHNIQUE: 1 view of the chest FINDINGS: Single frontal view of the chest demonstrates the cardiomediastinal silhouette to be within normal limits. The lungs are clear of alveolar opacities. There is no evidence for pleural effusion. There is no evidence for vascular congestion. There is no acute osseous pathology. IMPRESSION: No acute cardiopulmonary disease. ACT 112: Negative or not required by law. Electronically signed by: Rashel Vann M.D. 10/03/2021 7:49 AM ECG Data Attestation: I personally reviewed and interpreted this ECG as follows: Indication: + SOB/dyspnea and + toxicologic Rate (beats per minute): 110 Rhythm: + sinus tachycardia ECG Intervals/blocks: + Normal QRS, + Normal QT and + Normal [place] ECG [place]: + Normal ECG ST segments: + Normal ST segments ECG Findings: + Poor R wave progression; no PACs or no PVCs Comparison ECG Date: no prior available MDM Narrative This patient comes in as described above. She was placed on a security monitor room A10. She has a history of alcoholism started drinking again she is jaundiced and has abdominal pain she does appear slightly shaky and I think is starting to withdrawal. She was placed on a security monitor. IV access was was established and I did order Ativan 1 mg IV and a IV banana bag. Multiple blood testing was obtained she also has a Hacche cough and I have COVID tested her as well as did a chest x-ray. She was reassessed frequently. Her abdomen is distended but nontender. Her white count is mildly elevated but her liver functions are also significantly elevated with her bilirubin being 11. I think this is an alcoholic hepatitis. Her lipase was normal. COVID testing was negative. Chest x-ray was clear. EKG does not suggest ischemia or ectopy. Her QT interval is not significantly prolonged. Magnesium level was mildly low and she was repleted with magnesium IV 1 g. I have consulted the hospitalist to see her. They did see her in the ER and ordered a CT of the abdomen which the radiologist thought she had appendicitis and they did consult surgery. She will be admitted for further treatment and evaluation. She did receive additional Ativan 1 mg x 2 IV Continuous cardiac monitoring: Orders placed in EMR for continuous security monitor. Upon my evaluation she was noted to be in sinus tachycardia with a rate of 110. Impression & Plan Alcohol abuse with withdrawal, Alcoholic hepatitis, Acute appendicitis, Lab test negative for COVID-19 virus Discharge Plan Visit Data Chief Complaint: Abdominal Pain Stated Complaint: YELLOW SKIN/EYES,ABD PAIN,COUGH ED Provider: Phillip Mosquera Discharge Problem: Alcohol abuse with withdrawal, Alcoholic hepatitis, Acute appendicitis, Lab test negative for COVID-19 virus Discharge Instructions Interventions: ED Discharge Assessment Last Done: 10/03/21 13:45 Discharge Problem: Alcoholic hepatitis Qualifiers: Ascites presence: unspecified Qualified Code(s): K70.10 - Alcoholic hepatitis without ascites Acute appendicitis Qualifiers: Acute appendicitis type: unspecified acute appendicitis type Qualified Code(s): K35.80 - Unspecified acute appendicitis
[2021-10-03 07:44] LABS: Basophils # (auto) 0.04 K/uL (0-0.2); Basophils % (auto) 0.4 %; Eosinophils # (auto) 0.02 K/uL (0-0.5); Eosinophils % (auto) 0.2 %; Hematocrit (blood only) 33.4 % (37-47); Hemoglobin 11.1 g/dL (12.0-16.0); Immature Granulocytes # (auto) 0.06 K/uL (0.00-0.02); Immature Granulocytes % (auto) 0.5 %; Lymphocytes # (auto) 1.13 K/uL (1.2-3.4); Lymphocytes % (auto) 9.9 %; Mean Corpuscular Hgb Conc 33.2 g/dL (32-36); Mean Corpuscular Volume 102.5 fL (80-100); Mean Platelet Volume 11.2 fL (7.4-10.4); Monocytes # (auto) 0.93 K/uL (0.11-0.59); Monocytes % (auto) 8.2 %; Neutrophils # (auto) 9.21 K/uL (1.4-6.5); Neutrophils % (auto) 80.8 %; Platelet Count 174 K/uL (130-400); RDW Coefficient of Variation 17.1 % (11.5-14.5); RDW Standard Deviation 63.4 fL (36.4-46.3); Red Blood Count 3.26 M/uL (4.2-5.4); White Blood Count 11.39 K/uL (4.8-10.8)
--- NOTE | 2021-10-03 07:50 | XRay Report ---
XR chest 1V portable CLINICAL HISTORY: cough. COMPARISON STUDY: 06/20/2021 TECHNIQUE: 1 view of the chest FINDINGS: Single frontal view of the chest demonstrates the cardiomediastinal silhouette to be within normal li mits. The lungs are clear of alveolar opacities. There is no evidence for pleural effusion. There is no evidence for vascular congestion. There is no acute osseous pathology. IMPRESSION: No acute cardiopulmonary disease. ACT 112: Negative or not required by law. Electronically signed by: Rashel Vann M.D. 10/03/2021 7:49 AM
[2021-10-03] MEDS ORDERED: ONDANSETRON INJ 2 MG/ML 2 ML VIAL IV STA (08:14)
[2021-10-03 08:39] LABS: Influenza A virus by PCR Negative (Neg); Influenza B virus by PCR Negative (Neg); RSV by PCR Negative (Neg); SARS CoV2 RNA(COVID-19) InHosp NEGATIVE (Negative)
[2021-10-03 08:47] LABS: Albumin Globulin Ratio 0.9 (0.9-2); Albumin Level 2.9 gm/dl (3.4-5.0); BUN Creatinine Ratio 3.6 (10-20); Bilirubin,Total 11.3 mg/dl (0.2-1.0); Calcium 7.6 mg/dl (8.5-10.1); Creatinine Clr Calc Pharmacy 128.7 ml/min; Est GFR (Non-African American) 121.7 ml/min; Globulin 3.2 gm/dl (2.5-4.0); Magnesium 1.6 mg/dl (1.7-2.4); Total Protein 6.1 gm/dl (6.0-8.3)
[2021-10-03] MEDS ORDERED: MAGNESIUM SULFATE / D5W 1 GM/100 ML BAG IV STA (08:51)
--- NOTE | 2021-10-03 09:48 | History & Physical Report ---
Date of Service October 03, 2021 Assessment & Plan (1) Alcoholic hepatitis: Plan: History of EtOH hepatitis and EtOH pancreatitis previously. Currently no significant abdominal tenderness and normal lipase so pancreatitis seems less likely. - Admit to PCU - Check CT Abd/Pel to evaluate pancreas, for ascites - Daily labs - Consult GI - spoke with TIAN Wilkes about case - Added INR on to labs in ED - Continue IVF (2) Alcohol abuse: Plan: History of withdrawal symptoms previously - last drink was last night. Noticed symptoms of withdrawal this morning with nausea, shakiness. - Gabapentin alcohol withdrawal protocol - Ativan for withdrawal symptoms per protocol - Monitor on PCU - Daily thiamine and folate (3) ADD (attention deficit disorder): (4) Anxiety: (5) Asthma: Plan: Continue home medications for chronic conditions as appropriate. Pt seen and reviewed with attending physician, Dr. Rabago. Plan of care d iscussed and as outlined above. DVT Prophylaxis: SCDs for now Code Status: full code Jessie Mane PA-C Addendum: CT Abd/Pel shows findings c/w acute appendicitis. Stat Surgery Consult placed by GI. Will keep pt NPO and await their input. Jessie Mane PA-C History of Present Illness Chief Complaint: "I don't feel well" x 1 week Primary Care Provider: Zaina Bunch MD This is a 36 y/o female with a hx of EtOH abuse, pancreatitis, prior alcoholic hepatitis, asthma, depression, anxiety, ADHA and allergies who presents to the ED today with one week of flu-like symptoms that are gradually worsening. Patient reports a longstanding history of alcoholism, requiring hospitalization x 2 weeks in December 2018 in [place] for alcohol hepatitis. Patient reports going to inpatient rehab following that hospitalization and had remained sober until 2019 during the COVID-19 pandemic. Patient reports another inpatient rehab stay in July 2020, after which she was apparently sober until last fall. Most recently admitted in Jun 2021 for alcoholic hepatitis and pancreatitis. She reports abstaining from EtOH until last month when she started drinking again around the holidays. About a week ago, she developed flu-like symptoms with dry cough, mild sore throat, runny nose, abdominal discomfort, nausea with vomiting in the mornings. She denies hematemesis. She also noted yellowing of her eyes around the same time but denies dark urine. She has had chills and sweats but no documented fevers. Abdomen has been bloated with associated discomfort but describes pain in abdomen only with coughing. Denies melena, hematochezia, or diarrhea. Allergies Allergy/AdvReac Type Severity Reaction Status Date / Time banana Allergy Intermediate RASH, Verified 08/13/21 15:11 THROAT SLIGHTLY SWOLLEN Penicillins Allergy Unknown HAPPENED Verified 08/13/21 15:11 A CHILD Home Medications Medication Instructions Recorded Confirmed Type albuterol sulfate 90 mcg/actuation 1 inh INHALATION QID PRN 06/24/20 10/03/21 History aerosol inhaler (ProAir HFA) bupropion HCl 300 mg 24 hr tablet, 300 mg PO QAM 06/24/20 10/03/21 History extended release (Wellbutrin XL) buspirone 5 mg tablet 10 mg PO TID 06/24/20 10/03/21 History budesonide-formoterol HFA 160 2 puff INHALATION BID 06/20/21 10/03/21 History mcg-4.5 mcg/actuation aerosol inhaler (Symbicort) dextroamphetamine-amphetamine 5 mg 5 mg PO QDL 06/20/21 10/03/21 History tablet (Adderall) dextroamphetamine-amphetamine 5 mg 10 mg PO DAILY 06/20/21 10/03/21 History tablet (Adderall) ipratropium 20 mcg-albuterol 100 1 puff INHALATION BID 06/20/21 10/03/21 History mcg/actuation mist for inhalation (Combivent Respimat) loratadine 10 mg tablet 10 mg PO DAILY 06/20/21 10/03/21 History montelukast 10 mg tablet 10 mg PO HS 06/20/21 10/03/21 History omeprazole 20 mg capsule,delayed 20 mg PO DAILY 06/20/21 10/03/21 History release nicotine 14 mg/24 hr daily 1 patch TRANSDERMAL DAILY #28 ea 06/25/21 10/03/21 Rx transdermal patch azelastine 137 mcg (0.1 %) nasal 1 spray INTRANASAL BID 10/03/21 10/03/21 History spray aerosol fluticasone propionate 50 2 spray INTRANASAL DAILY 10/03/21 10/03/21 History mcg/actuation nasal spray,suspension multivitamin 1 tab PO DAILY 10/03/21 10/03/21 History Past Med/Surg History Medical History ADD (attention deficit disorder) Alcohol abuse Alcoholic hepatitis Alcoholic pancreatitis Allergic sinusitis Anxiety Asthma Depression Fatty liver Surgical History No significant past surgical history Family History Grandmother Breast cancer Grandfather Heart disease Social History Smoking Status: Current every day smoker Tobacco Type: Cigarettes Second Hand Exposure: No; Hx Alcohol Use: Yes Alcohol type: hard liquor Hx Substance Use: No Preferred Language: Tongan 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 Ability: Effective 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 Beliefs That Will Affect Care: None marital status: Single Current Living Situation: Significant Other current occupational status: employed Feels Safe at Home: Yes Assistive Devices: None Review of Systems Review of Systems: All systems reviewed & are unremarkable except as noted in HPI & below Constitutional: + chills, + sweats, + fatigue, + malaise and + anorexia; no fever Eyes: no diplopia Ear, Nose, Mouth, Throat: + nasal discharge and + sore throat Respiratory: + cough, + dyspnea on exertion and + pain on inspiration; no dyspnea Cardiovascular: no chest pain, no palpitations, no syncope and no edema Gastrointestinal: as per Subjective / HPI Genitourinary: no dysuria and no hematuria Musculoskeletal: + joint pain, + myalgia and + body aches Integumentary: + yellowing of the skin Neurologic: + generalized weakness and + headache(s) Psychiatric: + depression and + anxiety Physical Exam Constitutional: well developed and well nourished; no acute distress Eyes: + scleral abnormality (icteric) Neck: trachea midline Respiratory: no respiratory distress and no labored breathing Auscultation: lungs clear to auscultation bilaterally; no rales, no rhonchi and no wheezes Cardiovascular: Rate/Rhythm: regular rhythm and + tachycardic Heart Sounds: no gallop, no murmur and no cardiac rub Vessels: dorsalis pedis pulses present and radial pulses present Gastrointestinal (Abdomen): Inspection/Auscultation: + abdomen distended and normal bowel sounds Percussion/Palpation: abdomen nontender Musculoskeletal: Head/Neck/Chest: normocephalic, head atraumatic and neck supple Skin: + jaundice Neurologic: moves all extremities; no focal motor deficits and not confused Psychiatric: Orientation: alert and oriented x 3 Affect: + flat affect Results & Data Results & Data ([facility]) Vital Signs (Past 12 Hours) Vital Signs Temp Pulse Pulse Resp BP BP Pulse Ox 10/03/21 08:35 112 H 18 116/87 95 10/03/21 06:37 36.5 C 129 H 20 118/76 98 Laboratory Results Laboratory Results - last 24 hr 10/03/21 10/03/21 10/03/21 07:28 07:28 07:28 WBC 11.39 H RBC 3.26 L Hgb 11.1 L Hct 33.4 L MCV 102.5 H MCH 34.0 MCHC 33.2 RDW Std Deviation 63.4 H RDW Coeff of Yasmine 17.1 H Plt Count 174 MPV 11.2 H Immature Gran % (Auto) 0.5 Neut % (Auto) 80.8 Lymph % (Auto) 9.9 [place] % (Auto) 8.2 Eos % (Auto) 0.2 Baso % (Auto) 0.4 Neut # (Auto) 9.21 H Lymph # (Auto) 1.13 L [place] # (Auto) 0.93 H Eos # (Auto) 0.02 Baso # (Auto) 0.04 Immature Gran # (Auto) 0.06 H PT INR Sodium 133 L Potassium Chloride 96 L Carbon Dioxide 19 L Anion Gap 18 H BUN 2 L Creatinine 0.56 L Est Cr Clr Drug Dosing 128.7 Est GFR ( Amer) 141.0 Est GFR (Non-Af Amer) 121.7 BUN/Creatinine Ratio 3.6 L Glucose 152 H Calcium 7.6 L Magnesium 1.6 L Total Bilirubin 11.3 H Direct Bilirubin AST ALT 59 H Alkaline Phosphatase 325 H Total Protein 6.1 Albumin 2.9 L Globulin 3.2 Albumin/Globulin Ratio 0.9 Lipase 10 L Ethyl Alcohol mg/dL < 10.0 H SARS-CoV-2 (PCR) Influenza Type A (PCR) Influenza Type B (PCR) RSV (RT-PCR) 10/03/21 10/03/21 10/03/21 07:35 09:08 09:08 WBC RBC Hgb Hct MCV MCH MCHC RDW Std Deviation RDW Coeff of Yasmine Plt Count MPV Immature Gran % (Auto) Neut % (Auto) Lymph % (Auto) [place] % (Auto) Eos % (Auto) Baso % (Auto) Neut # (Auto) Lymph # (Auto) [place] # (Auto) Eos # (Auto) Baso # (Auto) Immature Gran # (Auto) PT INR Sodium Potassium Pending Chloride Carbon Dioxide Anion Gap BUN Creatinine Est Cr Clr Drug Dosing Est GFR ( Amer) Est GFR (Non-Af Amer) BUN/Creatinine Ratio Glucose Calcium Magnesium Total Bilirubin Direct Bilirubin Pending AST 196 H ALT Alkaline Phosphatase Total Protein Albumin Globulin Albumin/Globulin Ratio Lipase Ethyl Alcohol mg/dL SARS-CoV-2 (PCR) NEGATIVE Influenza Type A (PCR) Negative Influenza Type B (PCR) Negative RSV (RT-PCR) Negative 10/03/21 10:02 WBC RBC Hgb Hct MCV MCH MCHC RDW Std Deviation RDW Coeff of Yasmien Plt Count MPV Immature Gran % (Auto) Neut % (Auto) Lymph % (Auto) [place] % (Auto) Eos % (Auto) Baso % (Auto) Neut # (Auto) Lymph # (Auto) [place] # (Auto) Eos # (Auto) Baso # (Auto) Immature Gran # (Auto) PT Pending INR Pending Sodium Potassium Chloride Carbon Dioxide Anion Gap BUN Creatinine Est Cr Clr Drug Dosing Est GFR ( Amer) Est GFR (Non-Af Amer) BUN/Creatinine Ratio Glucose Calcium Magnesium Total Bilirubin Direct Bilirubin AST ALT Alkaline Phosphatase Total Protein Albumin Globulin Albumin/Globulin Ratio Lipase Ethyl Alcohol mg/dL SARS-CoV-2 (PCR) Influenza Type A (PCR) Influenza Type B (PCR) RSV (RT-PCR) Diagnostic Findings Chest X-ray 10/03/21 - IMPRESSION: No acute cardiopulmonary disease. Medications Administered Discontinued Medications Lorazepam (Ativan) 1 mg in 2 mls @ 2 mls/min IV NOW STA Stop: 10/03/21 07:09 Last Admin: 10/03/21 07:44 Dose: 2 mls/min Documented by: [id number] Multivitamins 10 ml/ Thiamine HCl 100 mg/ Folic Acid 1 mg/Sodium Chloride 1,011.2 mls @ 1,011.2 mls/hr IV .Q1H ONE Stop: 10/03/21 08:07 Last Infusion: 10/03/21 08:49 Dose: 0 mls/hr Documented by: [id number] Admin: 10/03/21 07:45 Dose: 1,011.2 mls/hr Documented by: [id number] Lorazepam (Ativan) 1 mg in 2 mls @ 2 mls/min IV NOW STA Stop: 10/03/21 08:14 Last Admin: 10/03/21 08:31 Dose: 2 mls/min Documented by: [id number] Magnesium Sulfate/Dextrose (Magnesium Sulfate / D5w) 1 gm in 100 mls @ 100 mls/ hr IV NOW STA Stop: 10/03/21 09:50 Last Infusion: 10/03/21 10:16 Dose: 0 mls/hr Documented by: [id number] Admin: 10/03/21 09:15 Dose: 100 mls/hr Documented by: [id number] Lorazepam (Ativan) 1 mg in 2 mls @ 2 mls/min IV NOW STA Stop: 10/03/21 09:07 Last Admin: 10/03/21 09:38 Dose: 2 mls/min Documented by: [id number] Ioversol (Optiray 320 100ml) 95 ml IV ONCE ONE Stop: 10/03/21 10:18 Last Admin: 10/03/21 10:19 Dose: 95 ml Documented by: [id number] Ondansetron HCl (Ondansetron Inj 2 Mg/Ml 2 Ml Vial) 4 mg IV NOW STA Stop: 10/03/21 08:15 Last Admin: 10/03/21 08:31 Dose: 4 mg Documented by: [id number] Supervising Physician Co-Signing Physician Notes 36 y/o female with a hx of EtOH abuse (drinks 6 small cans of 99% alcohol daily since last 10 years), pancreatitis, prior alcoholic hepatitis, asthma, depression, anxiety, ADHA and allergies presented to ED 10/03/21 with one week of flu-like symptoms that are gradually worsening associated with yellowing of her skin. Patient also reports abdominal bloating and pain. Patient has been in and out of inpatient rehab and now wants to quit drinking. She is found to have alcoholic hepatitis, and appendicitis. GI and surgery aware. Appreciate recommendations. Patient will be kept on AWSS protocol, as needed Zofran, monitor QTC, resume home meds as appropriate. Currently n.p.o. per surgery. Upon Exam : GENERAL: Alert and oriented x3. NAD, on RA. yellowing of skin all over noted. HEENT: No pallor, +++ icterus. Pupils equal, round and reactive to light. Oral mucosa moist. NECK: No JVD, no neck masses. HEART: S1 and S2 heard. Regular rate and rhythm. No murmur, no gallop. RESPIRATORY SYSTEM: Normal AP diameter. No accessory muscle use. No wheezing, no crackles. ABDOMEN: Soft, bowel sounds present, tender Rt hypochondriac and RLQ, no rebound tender, no distention. CENTRAL NERVOUS SYSTEM: No facial droop. Speech is clear. Obeys simple commands. Moves extremities. EXTREMITIES: No edema, no erythema seen. I have seen and examined the patient and have discussed the case with the provider above. I agree with the assessment and plan as stated. (1) Alcoholic hepatitis Ascites presence: unspecified Qualified Code(s): K70.10 - Alcoholic hepatitis without ascites
[2021-10-03] MEDS ORDERED: GABAPENTIN 1200MG ALCOHOL WITHDRAWAL LOAD PO STA (09:56)
[2021-10-03] MEDS ORDERED: GABAPENTIN 600 MG TAB PO ONE ×2 (10:15→13:29)
[2021-10-03] MEDS ORDERED: OPTIRAY 320 100ml IV ONE (10:17)
[2021-10-03 10:34] LABS: INR 1.4 (0.9-1.1)
--- NOTE | 2021-10-03 10:39 | CT Scan Report ---
CT abd pelvis IV con only CLINICAL HISTORY: Abd discomfort/distention, elevated bili COMPARISON STUDY: 07/13/2021 CT DOSE: 583.14 mGy.cm TECHNIQUE: Standard CT of the Abdomen and Pelvis was performed with IV contrast. A dose lowering dewey hnique was utilized adhering to the principles of ALARA. Contrast Volume: Optiray 320, 95 ml. The patient did not receive oral contrast. FINDINGS: Lung base: The lung bases are clear. Abdominal cavity: There is no evidence for abdominal mass, adenopathy or ascites. Liver: The liver is again enlarged with diffuse increased attenuation representing the presence of fa tty infiltration. There is no evidence for enhancing mass lesion. Spleen: There is homogeneous attenuation of the splenic parenchyma. There is no enhancing mass lesion . Pancreas: There is homogeneous attenuation of the pancreatic parenchyma. There is no evidence for mas s lesion or peripancreatic fluid collection. Gall Bladder: There is partial contraction of the gallbladder with thickening and enhancement of the gallbladder wall. There is also suspicion of pericholecystic edema. Gallbladder ultrasound is recomme nded for further evaluation. Adrenal glands: The adrenal glands are normal in size and attenuation. There is no evidence for enhan cing mass lesion. Kidneys: There is homogeneous attenuation of the renal parenchyma bilaterally. There is no evidence f or renal calculus or hydronephrosis. There is no evidence for enhancing mass. Bowel: There is dilatation of the proximal body of the appendix measuring 10 mm. The distal body the appendix is within normal limits. There is periappendiceal inflammatory change and fluid seen within the right paracolic gutter. The findings are characteristic of acute appendicitis. There is no eviden ce for perforation or abscess. There is no evidence for free air. The remaining bowel loops are normally placed within the abdomen and pelvis without evidence for dil atation or obstruction. There is no evidence for mass lesion. There is sigmoid diverticulosis without evidence for diverticulitis . Bladder: The bladder is within normal limits with no evidence for focal mass, calculus or diverticulu m. : There is no evidence for pelvic mass or adenopathy. There is no evidence for pelvic ascites. Vasculature: There is no evidence for aneurysmal dilatation of the abdominal aorta. Osseous structures: There is no acute osseous pathology. IMPRESSION: 1. CT findings demonstrating acute appendicitis of the proximal body of the appendix as described abo ve. No perforation or abscess. 2. Thick walled, partially contracted and enhanced gallbladder with suspicion of pericholecystic zuri a. Follow-up gallbladder ultrasound is recommended as well. 3. Hepatomegaly with diffuse fatty infiltration of the liver. ACT 112: Negative or not required by law. Electronically signed by: Rashel Vann M.D. 10/03/2021 10:37 AM
[2021-10-03 10:45] LABS: Potassium 3.5 mmol/L (3.5-5.1)
--- NOTE | 2021-10-03 11:14 | Gastrointestinal Consultation ---
Date of Consultation October 03, 2021 Assessment & Plan (1) Abnormal CT of the abdomen: CT suggests acute appendicitis. Stat consult placed for Dr. Preciado (vocational adviser for gen surgery) Keep NPO. (2) Alcoholic hepatitis: 1. Alcohol abstention 2. IV fluids 3. Will follow LFTs, INR daily . 4. Appreciate: Alcohol withdrawal protocol by primary hospitalists. Supervising Physician Co-Signing Physician Notes Attg add: I interviewed and examined pt. Pt presents with h/o alcohol abuse, jaundice, upp abd pain. CT unremarkable. Labs show worsening AP and bili. Will repeat MRCP look for stone disease; if neg, likely alc hep -- no need steroids, rec follow LFT's, INR, creat. We will f/u on MRCP; if negative, will sign off. History of Present Illness Reason for Consultation: ETOH Hepatitis Requesting Physician: Dr. Rabago Attending Physician: Dr. Rabago History of Present Illness Ms. Kathie Burr is a 36 yr old female pt of Dr. Zaina Bunch with a hx of increased ETOH intake, ETOH hepatitis and pancreatitis presented to the ED this morning for yellow skin, abd pain, nausea. She had been drinking 6 shots/day since the holidays, most recent intake last night. She "would like to get better," is welling to go to rehab, have intense counselling etc. Pain is diffuse, mostly upper abd, some periumbilical, currently rated 5 of 10 but severe when coughs. No GI bleeding. No constipation or diarrhea, most recent BM this morning was brown. One episode of nausea/vomiting this morning. Denies anxiety or tremor. She is a bit tachycardic but denies palpitations or CP. No SOB. Allergies Allergy/AdvReac Type Severity Reaction Status Date / Time banana Allergy Intermediate RASH, Verified 08/13/21 15:11 THROAT SLIGHTLY SWOLLEN Penicillins Allergy Unknown HAPPENED Verified 08/13/21 15:11 A CHILD Home Medications Medication Instructions Recorded Confirmed Type albuterol sulfate 90 mcg/actuation 1 inh INHALATION QID PRN 06/24/20 10/03/21 History aerosol inhaler (ProAir HFA) bupropion HCl 300 mg 24 hr tablet, 300 mg PO QAM 06/24/20 10/03/21 History extended release (Wellbutrin XL) buspirone 5 mg tablet 10 mg PO TID 06/24/20 10/03/21 History budesonide-formoterol HFA 160 2 puff INHALATION BID 06/20/21 10/03/21 History mcg-4.5 mcg/actuation aerosol inhaler (Symbicort) dextroamphetamine-amphetamine 5 mg 5 mg PO QDL 06/20/21 10/03/21 History tablet (Adderall) dextroamphetamine-amphetamine 5 mg 10 mg PO DAILY 06/20/21 10/03/21 History tablet (Adderall) ipratropium 20 mcg-albuterol 100 1 puff INHALATION BID 06/20/21 10/03/21 History mcg/actuation mist for inhalation (Combivent Respimat) loratadine 10 mg tablet 10 mg PO DAILY 06/20/21 10/03/21 History montelukast 10 mg tablet 10 mg PO HS 06/20/21 10/03/21 History omeprazole 20 mg capsule,delayed 20 mg PO DAILY 06/20/21 10/03/21 History release nicotine 14 mg/24 hr daily 1 patch TRANSDERMAL DAILY #28 ea 06/25/21 10/03/21 Rx transdermal patch azelastine 137 mcg (0.1 %) nasal 1 spray INTRANASAL BID 10/03/21 10/03/21 History spray aerosol fluticasone propionate 50 2 spray INTRANASAL DAILY 10/03/21 10/03/21 History mcg/actuation nasal spray,suspension multivitamin 1 tab PO DAILY 10/03/21 10/03/21 History Patient History Medical History ADD (attention deficit disorder) Alcohol abuse Alcoholic hepatitis Alcoholic pancreatitis Allergic sinusitis Anxiety Asthma Depression Fatty liver Surgical History No significant past surgical history Family History Grandmother Breast cancer Grandfather Heart disease Social History Smoking Status: Current every day smoker Tobacco Type: Cigarettes Second Hand Exposure: No; Hx Alcohol Use: Yes Alcohol type: hard liquor Hx Substance Use: No Preferred Language: Thai 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 Ability: Effective 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 Beliefs That Will Affect Care: None marital status: Single Current Living Situation: Significant Other current occupational status: employed Feels Safe at Home: Yes Assistive Devices: None Review of Systems Review of Systems: ROS: Gen: + weakness, No fevers, No weight loss Eyes: No eye redness, or pain, no recent vision changes Resp: No SOB, + cough x a few wks Cardio: No palpitations/irregular beats, no chest pain GI: As per HPI, otherwise (-) : Denies pain on urination Skin: + jaundice, No itching or new rashes Psych: denies thoughts of self harm Physical Exam Constitutional: well developed, + ill appearing, + thin and cooperative Eyes: PERRL, conjunctivae normal, anicteric sclerae Respiratory: normal respiratory effort, lungs clear to auscultation Cardiovascular: RRR, no murmur, no edema Gastrointestinal (Abdomen): Inspection/Auscultation: + abdomen distended (mild, diffuse appears gaseous vs ascites) and normal bowel sounds; no abdominal edema Percussion/Palpation: + abdomen tender (Mild diffuse adbdominal msk tenderness. No signs of acute abdomen.) and abdomen soft; no guarding and abdomen not rigid Neurologic: PERRL, EOMI, accommodation nl, no face palsy, no dysarthria awake; not confused Psychiatric: A+Ox3, euthymic affect Results & Data ([facility]) Vital Signs (Past 12 Hours) Vital Signs Temp Pulse Pulse Resp BP BP Pulse Ox 10/03/21 08:35 112 H 18 116/87 95 10/03/21 06:37 36.5 C 129 H 20 118/76 98 Laboratory Results WBC 11.3, Hb 11.1, Hct 33.4, Plts 174, Na 133, K 3.2, Cl 96, CO2 19, BUN 2, Cr 0.6, glucose 152. ETOH (-) on arrival. INR 1.4 T Bili 11.3, AST 196, ALT57, Alk Phos 325 Diagnostic Findings CTAP w IV contrast: Acute appendicitis, thick walled gallbladder, hepatomegaly. (1) Alcoholic hepatitis Ascites presence: unspecified Qualified Code(s): K70.10 - Alcoholic hepatitis without ascites
[2021-10-03 11:53] LABS: Appearance Urine Clear (Clear); Blood Urine Negative (Negative); Color Urine Dark Yellow; Glucose Urine UA Negative (Negative); Ketones Urine Negative (Negative); Leukocyte Esterase Urine Negative (Negative); Nitrite Urine Negative (Negative); Protein Urine Negative (Negative); Specific Gravity Urine > 1.045 (1.000-1.030); Urobilinogen Urine Negative (Negative)
[2021-10-03 11:58] LABS: Bilirubin Urine 3+ (Negative)
--- NOTE | 2021-10-03 12:35 | Surgery Consultation ---
Date of Consultation October 03, 2021 Assessment & Plan (1) Acute appendicitis with localized peritonitis: pt is a ETOH abuse,abnormal LFT, who presents to Er with not feels well, CT scan diagnosis- appendicitis, Plan, order gallbladder U/S study, base on abnormal LFT, no significant abdo rex pain, I recommend to do conservative treatment appendicitis, try to avoid emergent surgery, IV antibiotic, cipro + flagyl, repeat labs in morning, if pt's symptoms worse I would recommend to do laparoscopic appendectomy, possible open, D/W benefits, risks and alternatives of the surgery, the risks - infection, bleeding, abscess. bowel obstruction, possible developing perforation of appendicitis, during conservative treatment period, worse liver function, coma, , pt understood, she agrees with the treatment plan, , I answered all questions, D/W GI DR. Salcido who recommend try conservative treatment first, MRCP to R/O gallstone, or CBD stone, History of Present Illness Reason for Consultation: appendicitis, Requesting Physician: Julio C Mahajan MD History of Present Illness Chief Complaint: "I don't feel well" x 1 week Primary Care Provider: Zaina Bunch MD This is a 36 y/o female with a hx of EtOH abuse, pancreatitis, prior alcoholic hepatitis, asthma, depression, anxiety, ADHA and allergies who presents to the ED today with one week of flu-like symptoms that are gradually worsening. Patient reports a longstanding history of alcoholism, requiring hospitalization x 2 weeks in December 2018 in [place] for alcohol hepatitis. Patient reports going to inpatient rehab following that hospitalization and had remained sober until 2019 during the COVID-19 pandemic. Patient reports another inpatient rehab stay in July 2020, after which she was apparently sober until last fall. Most recently admitted in Jun 2021 for alcoholic hepatitis and pancreatitis. She reports abstaining from EtOH until last month when she started drinking again around the holidays. About a week ago, she developed flu-like symptoms with dry cough, mild sore throat, runny nose, abdominal discomfort, nausea with vomiting in the mornings. She denies hematemesis. She also noted yellowing of her eyes around the same time but denies dark urine. She has had chills and sweats but no documented fevers. Abdomen has been bloated with associated discomfort but describes pain in abdomen only with coughing. Denies melena, hematochezia, or diarrhea. I ( Tomy Preciado MD ) got a call for consult acute appendicitis, I reviewed pt's H/P, labs CT scan with pt, pt is alcohol abuse( one bottle/day) for 5 years, pt is still have abdominal distend, CT scan finding- acute appendicitis, reviewed GI consult, thanks, Allergies Allergy/AdvReac Type Severity Reaction Status Date / Time banana Allergy Intermediate RASH, Verified 08/13/21 15:11 THROAT SLIGHTLY SWOLLEN Penicillins Allergy Unknown HAPPENED Verified 08/13/21 15:11 A CHILD Home Medications Medication Instructions Recorded Confirmed Type albuterol sulfate 90 mcg/actuation 1 inh INHALATION QID PRN 06/24/20 10/03/21 History aerosol inhaler (ProAir HFA) bupropion HCl 300 mg 24 hr tablet, 300 mg PO QAM 06/24/2010/03 History extended release (Wellbutrin XL) buspirone 5 mg tablet 10 mg PO TID 06/24/20 10/03/21 History budesonide-formoterol HFA 160 2 puff INHALATION BID 06/20/21 10/03/21 History mcg-4.5 mcg/actuation aerosol inhaler (Symbicort) dextroamphetamine-amphetamine 5 mg 5 mg PO QDL 06/20/2110/03 History tablet (Adderall) dextroamphetamine-amphetamine 5 mg 10 mg PO DAILY 06/20/2110/03 History tablet (Adderall) ipratropium 20 mcg-albuterol 100 1 puff INHALATION BID 06/20/2110/03 History mcg/actuation mist for inhalation (Combivent Respimat) loratadine 10 mg tablet 10 mg PO DAILY 06/20/21 10/03/21 History montelukast 10 mg tablet 10 mg PO HS 06/20/21 10/03/21 Histor y omeprazole 20 mg capsule,delayed 20 mg PO DAILY 06/20/21 2 History release nicotine 14 mg/24 hr daily 1 patch TRANSDERMAL DAILY #28 ea 06/25/21 10/03/21 Rx transdermal patch azelastine 137 mcg (0.1 %) nasal 1 spray INTRANASAL BID 10/03/2109/21 History spray aerosol fluticasone propionate 50 2 spray INTRANASAL DAILY 10/03/21 10/03/21 History mcg/actuation nasal spray,suspension multivitamin 1 tab PO DAILY 10/03/21 10/03/21 History Past Med/Surg History Medical History ADD (attention deficit disorder) Alcohol abuse Alcoholic hepatitis Alcoholic pancreatitis Allergic sinusitis Anxiety Asthma Depression Fatty liver Surgical History No significant past surgical history Family History Grandmother Breast cancerGrandfather Heart disease Social History Smoking Status: Current every day smoker Tobacco Type: Cigarettes Second Hand Exposure: No; Hx Alcohol Use: Yes Alcohol type: hard liquor Hx Substance Use: No Preferred Language: Tamazight 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 Ability: Effective International Trade Analyst Required: No Beliefs That Will Affect Care: None marital status: Single Current Living Situation: Significant Other current occupational status: employed Feels Safe at Home: Yes Assistive Devices: None Review of Systems Review of Systems: All systems reviewed & are unremarkable except as noted in HPI & below Constitutional: + chills, + sweats, + fatigue, + malaise and + anorexia; no fever Eyes: no diplopia Ear, Nose, Mouth, Throat: + nasal discharge and + sore throat Respiratory: + cough, + dyspnea on exertion and + javad n on inspiration; no dyspnea Cardiovascular: no chest pain, no palpitations, no syncope and no edema Gastrointestinal: as per Subjective / HPI Genitourinary: no dysuria and no hematuria Musculoskeletal: + joint pain, + myalgia and + body aches Integumentary: + yellowing of the skin Neurologic: + generalized weakness and + headache(s) Psychiatric: + depression and + anxiety Allergies Allergy/AdvReac Type Severity Reaction Status Date / Time banana Allergy Intermediate RASH, Verified 08/13/21 15:11 THROAT SLIGHTLY SWOLLEN Penicillins Allergy Unknown HAPPENED Verified 08/13/21 15:11 A CHILD Home Medications Medication Instructions Recorded Confirmed Type albuterol sulfate 90 mcg/actuation 1 inh INHALATION QID PRN 06/24/20 10/03/21 History aerosol inhaler (ProAir HFA) bupropion HCl 300 mg 24 hr tablet, 300 mg PO QAM 06/24/20 10/03/21 History extended release (Wellbutrin XL) buspirone 5 mg tablet 10 mg PO TID 06/24/20 10/03/21 History budesonide-formoterol HFA 160 2 puff INHALATION BID 06/20/21 10/03/21 History mcg-4.5 mcg/actuation aerosol inhaler (Symbicort) dextroamphetamine-amphetamine 5 mg 5 mg PO QDL 06/20/21 10/03/21 History tablet (Adderall) dextroamphetamine-amphetamine 5 mg 10 mg PO DAILY 06/20/21 10/03/21 History tablet (Adderall) ipratropium 20 mcg-albuterol 100 1 puff INHALATION BID 06/20/21 10/03/21 History mcg/actuation mist for inhalation (Combivent Respimat) loratadine 10 mg tablet 10 mg PO DAILY 06/20/21 10/03/21 History montelukast 10 mg tablet 10 mg PO HS 06/20/21 10/03/21 History omeprazole 20 mg capsule,delayed 20 mg PO DAILY 06/20/21 10/03/21 History release nicotine 14 mg/24 hr daily 1 patch TRANSDERMAL DAILY #28 ea 06/25/21 10/03/21 Rx transdermal patch azelastine 137 mcg (0.1 %) nasal 1 spray INTRANASAL BID 10/03/21 10/03/21 History spray aerosol fluticasone propionate 50 2 spray INTRANASAL DAILY 10/03/21 10/03/21 History mcg/actuation nasal spray,suspension multivitamin 1 tab PO DAILY 10/03/21 10/03/21 History Patient History Medical History ADD (attention deficit disorder) Alcohol abuse Alcoholic hepatitis Alcoholic pancreatitis Allergic sinusitis Anxiety Asthma Depression Fatty liver Surgical History No significant past surgical history Family History Grandmother Breast cancer Grandfather Heart disease Social History Smoking Status: Current every day smoker Tobacco Type: Cigarettes Second Hand Exposure: No; Hx Alcohol Use: Yes Alcohol type: hard liquor Hx Substance Use: No Preferred Language: Tam[place] 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 Ability: Effective International Trade Analyst Required: No Beliefs That Will Affect Care: None marital status: Single Current Living Situation: Significant Other current occupational status: employed Feels Safe at Home: Yes Assistive Devices: None Physical Exam Constitutional: WD/WN, vitals as above Eyes: PERRL, conjunctivae normal, anicteric sclerae Neck: trachea midline, no thyromegaly Respiratory: normal respiratory effort, lungs clear to auscultation Cardiovascular: RRR, no murmur, no edema Gastrointestinal (Abdomen): soft, no tenderness at RLQ and RUQ, no distend, no rebound pain, BS + Musculoskeletal: no cyanosis or clubbing, extremities motor strength 5/5 Neurologic: patellar DTR's 2+ bilat, sensation intact Psychiatric: A+Ox3, euthymic affect Results & Data ([facility]) Vital Signs (Past 12 Hours) Vital Signs Temp Pulse Pulse Resp BP BP Pulse Ox 10/03/21 10:30 113 H 20 131/105 H 97 10/03/21 08:35 112 H 18 116/87 95 10/03/21 06:37 36.5 C 129 H 20 118/76 98 Laboratory Results Abnormal lab results 10/03/21 10/03/21 10/03/21 Range/Units 07:28 07:28 07:28 WBC 11.39 H (4.8-10.8) K/uL RBC 3.26 L (4.2-5.4) M/uL Hgb 11.1 L (12.0-16.0) g/dL Hct 33.4 L (37-47) % MCV 102.5 H (80-100) fL RDW Std Deviation 63.4 H (36.4-46.3) fL RDW Coeff of Yasmine 17.1 H (11.5-14.5) % MPV 11.2 H (7.4-10.4) fL Neut # (Auto) 9.21 H (1.4-6.5) K/uL Lymph # (Auto) 1.13 L (1.2-3.4) K/uL Bell # (Auto) 0.93 H (0.11-0.59) K/uL Immature Gran # (Auto) 0.06 H (0.00-0.02) K/uL PT (9.0-12.0) Seconds INR (0.9-1.1) Sodium 133 L (136-145) mmol/L Chloride 96 L (98-107) mmol/L Carbon Dioxide 19 L (21-32) mmol/L Anion Gap 18 H (3-11) BUN 2 L (6-23) mg/dl Creatinine 0.56 L (0.6-1.2) mg/dl BUN/Creatinine Ratio 3.6 L (10-20) Glucose 152 H (70-99) mg/dl Calcium 7.6 L (8.5-10.1) mg/dl Magnesium 1.6 L (1.7-2.4) mg/dl Total Bilirubin 11.3 H (0.2-1.0) mg/dl Direct Bilirubin (0-0.2) mg/dl AST (13-39) U/L ALT 59 H (7-52) U/L Alkaline Phosphatase 325 H (34-104) U/L Albumin 2.9 L (3.4-5.0) gm/dl Lipase 10 L (11-82) U/L Urine pH (4.5-7.5) Ur Specific [place] (1.000-1.030) Urine Bilirubin (Negative) Ethyl Alcohol mg/dL < 10.0 H (0-9.9) mg/dl 10/03/21 10/03/21 10/03/21 Range/Units 09:08 09:08 10:02 WBC (4.8-10.8) K/uL RBC (4.2-5.4) M/uL Hgb (12.0-16.0) g/dL Hct (37-47) % MCV (80-100) fL RDW Std Deviation (36.4-46.3) fL RDW Coeff of Yasmine (11.5-14.5) % MPV (7.4-10.4) fL Neut # (Auto) (1.4-6.5) K/uL Lymph # (Auto) (1.2-3.4) K/uL Bell # (Auto) (0.11-0.59) K/uL Immature Gran # (Auto) (0.00-0.02) K/uL PT 14.0 H (9.0-12.0) Seconds INR 1.4 H (0.9-1.1) Sodium (136-145) mmol/L Chloride (98-107) mmol/L Carbon Dioxide (21-32) mmol/L Anion Gap (3-11) BUN (6-23) mg/dl Creatinine (0.6-1.2) mg/dl BUN/Creatinine Ratio (10-20) Glucose (70-99) mg/dl Calcium (8.5-10.1) mg/dl Magnesium (1.7-2.4) mg/dl Total Bilirubin (0.2-1.0) mg/dl Direct Bilirubin 6.7 H (0-0.2) mg/dl AST 196 H (13-39) U/L ALT (7-52) U/L Alkaline Phosphatase (34-104) U/L Albumin (3.4-5.0) gm/dl Lipase (11-82) U/L Urine pH (4.5-7.5) Ur Specific [place] (1.000-1.030) Urine Bilirubin (Negative) Ethyl Alcohol mg/dL (0-9.9) mg/dl 10/03/21 Range/Units 11:45 WBC (4.8-10.8) K/uL RBC (4.2-5.4) M/uL Hgb (12.0-16.0) g/dL Hct (37-47) % MCV (80-100) fL RDW Std Deviation (36.4-46.3) fL RDW Coeff of Yasmine (11.5-14.5) % MPV (7.4-10.4) fL Neut # (Auto) (1.4-6.5) K/uL Lymph # (Auto) (1.2-3.4) K/uL Bell # (Auto) (0.11-0.59) K/uL Immature Gran # (Auto) (0.00-0.02) K/uL PT (9.0-12.0) Seconds INR (0.9-1.1) Sodium (136-145) mmol/L Chloride (98-107) mmol/L Carbon Dioxide (21-32) mmol/L Anion Gap (3-11) BUN (6-23) mg/dl Creatinine (0.6-1.2) mg/dl BUN/Creatinine Ratio (10-20) Glucose (70-99) mg/dl Calcium (8.5-10.1) mg/dl Magnesium (1.7-2.4) mg/dl Total Bilirubin (0.2-1.0) mg/dl Direct Bilirubin (0-0.2) mg/dl AST (13-39) U/L ALT (7-52) U/L Alkaline Phosphatase (34-104) U/L Albumin (3.4-5.0) gm/dl Lipase (11-82) U/L Urine pH 8.0 H (4.5-7.5) Ur Specific [place] > 1.045 H (1.000-1.030) Urine Bilirubin 3+ H (Negative) Ethyl Alcohol mg/dL (0-9.9) mg/dl Diagnostic Findings CT abd pelvis IV con only CLINICAL HISTORY: Abd discomfort/distention, elevated bili COMPARISON STUDY: 07/13/2021 CT DOSE: 583.14 mGy.cm TECHNIQUE: Standard CT of the Abdomen and Pelvis was performed with IV contrast. A dose lowering technique was utilized adhering to the principles of ALARA. Contrast Volume: Optiray 320, 95 ml. The patient did not receive oral contrast. FINDINGS: Lung base: The lung bases are clear. Abdominal cavity: There is no evidence for abdominal mass, adenopathy or ascites. Liver: The liver is again enlarged with diffuse increased attenuation representing the presence of fatty infiltration. There is no evidence for enhancing mass lesion. Spleen: There is homogeneous attenuation of the splenic parenchyma. There is no enhancing mass lesion. Pancreas: There is homogeneous attenuation of the pancreatic parenchyma. There is no evidence for mass lesion or peripancreatic fluid collection. Gall Bladder: There is partial contraction of the gallbladder with thickening and enhancement of the gallbladder wall. There is also suspicion of pericholecystic edema. Gallbladder ultrasound is recommended for further evaluation. Adrenal glands: The adrenal glands are normal in size and attenuation. There is no evidence for enhancing mass lesion. Kidneys: There is homogeneous attenuation of the renal parenchyma bilaterally. There is no evidence for renal calculus or hydronephrosis. There is no evidence for enhancing mass. Bowel: There is dilatation of the proximal body of the appendix measuring 10 mm. The distal body the appendix is within normal limits. There is periappendiceal inflammatory change and fluid seen within the right paracolic gutter. The findings are characteristic of acute appendicitis. There is no evidence for perforation or abscess. There is no evidence for free air. The remaining bowel loops are normally placed within the abdomen and pelvis without evidence for dilatation or obstruction. There is no evidence for mass lesion. There is sigmoid diverticulosis without evidence for diverticulitis . Bladder: The bladder is within normal limits with no evidence for focal mass, calculus or diverticulum. : There is no evidence for pelvic mass or adenopathy. There is no evidence for pelvic ascites. Vasculature: There is no evidence for aneurysmal dilatation of the abdominal aorta. Osseous structures: There is no acute osseous pathology. IMPRESSION: 1. CT findings demonstrating acute appendicitis of the proximal body of the appendix as described above. No perforation or abscess. 2. Thick walled, partially contracted and enhanced gallbladder with suspicion of pericholecystic edema. Follow-up gallbladder ultrasound is recommended as well. 3. Hepatomegaly with diffuse fatty infiltration of the liver.
--- NOTE | 2021-10-03 13:26 | Ultrasound Report ---
US liver CLINICAL HISTORY: elevated bilirubin, r/o cholecystitis, choledocholithiasis COMPARISON STUDY: MRCP June 20, 2021. CT of the abdomen and pelvis October 03, 2021. FINDINGS: The liver is echogenic and enlarged. Liver measures 23 cm in maximal sagittal dimension. Th ere is also heterogeneity of the liver parenchyma. No hepatic lesions are present. There is no biliar y ductal dilatation. The common bile duct measures 3 mm in caliber. The gallbladder is contracted. Th is likely accounts for gallbladder wall thickening. No sonographic Owens sign was elicited. Pancreat ic body is normal. Head and tail are obscured. There is no right hydronephrosis. IMPRESSION: 1. Contracted gallbladder. This likely accounts for gallbladder wall thickening. No evidence for acut e cholecystitis. 2. No biliary ductal dilatation. 3. Hepatic steatosis and hepatomegaly. ACT 112: Negative or not required by law. Electronically signed by: Luis Zarate M.D. 10/03/2021 1:25 PM
[2021-10-03] MEDS ORDERED: ALBUTEROL HFA 8 GM INHALER INH PRN (13:41)
[2021-10-03] MEDS ORDERED: AMPHETAMINE ASP/SULF/DEXTRAMPH 5 MG TAB PO SCH (14:00)
--- NOTE | 2021-10-03 14:21 | Magnetic Resonance Report ---
MR MRCP CLINICAL HISTORY: elevated LFTs, prior pancreatitis, evaluate for biliary obstruction TECHNIQUE: Multiplanar multisequence MR images were obtained of the abdomen, followed by reconstruct ion of MRCP imaging. COMPARISON: MRCP from 06/20/2021, right upper quadrant ultrasound from 10/03/[address] of the abdomen and pelvis from 10/03/2021 FINDINGS: Liver: The liver is again enlarged with diffuse fatty infiltration. No mass lesions are seen. There i s no evidence for intrahepatic or duct dilatation. Gallbladder: The gallbladder is contracted with diffuse wall thickening as seen on CT and ultrasound . There is no pericholecystic edema seen. Spleen: There is homogeneous signal throughout the splenic parenchyma. No mass lesions are seen. Pancreas: The pancreas is homogeneous in signal There is no evidence for a mass lesion. Kidneys: There is homogeneous signal throughout the renal parenchyma bilaterally. Adrenal glands: There is homogeneous signal demonstrated with no gross mass seen. Abdominal cavity: There is no gross bowel dilatation. There is no evidence for ascites or adenopathy. The aorta is normal in caliber. The visualized osseous structures, demonstrate no evidence of abnormal signal intensity. MRCP: The common bile duct is normal in course and caliber. It measures 5 mm on MRCP. There is no kendall dence for dilatation. There is no intraluminal filling defects or evidence for choledocholithiasis. There is no intrahepatic or duct dilatation. The pancreatic duct is normal in course and caliber. IMPRESSION: 1. No evidence of biliary obstruction. 2. Contracted gallbladder with thickening of the gallbladder wall. 3. No acute abnormality identified. ACT 112: Negative or not required by law. Electronically signed by: Rashel Vann M.D. 10/03/2021 2:20 PM
[2021-10-03] MEDS: CIPROFLOXACIN / D5W 400 MG/200 ML BAG IV SCH (15:10)
[2021-10-03] MEDS: busPIRone 5 MG TAB PO SCH ×2 (15:10→20:29)
[2021-10-03] MEDS: buPROPion XL 300 MG TABCR PO SCH (15:10)
[2021-10-03] MEDS: THIAMINE HCL 100 MG TAB PO SCH (15:11)
[2021-10-03] MEDS: FOLIC ACID 1 MG TAB PO SCH (15:11)
[2021-10-03] MEDS: AMPHETAMINE ASP/SULF/DEXTRAMPH 5 MG TAB PO SCH (15:25)
[2021-10-03] MEDS: GABAPENTIN 600 MG TAB PO SCH ×2 (17:36→23:25)
[2021-10-03] MEDS ORDERED: ondansetron HCL 6 MG in DEXTROSE 5% 50 ML IV PRN (17:56)
--- NOTE | 2021-10-03 18:30 | Electrocardiogram Report ---
Test Reason : Blood Pressure : / mmHG Vent. Rate : 110 BPM Atrial Rate : 110 BPM P-R Int : 154 ms QRS Dur : 062 ms QT Int : 354 ms P-R-T Axes : 027 -19 034 degrees QTc Int : 479 ms Sinus tachycardia Low voltage QRS Cannot rule out Old Anteroseptal infarct Abnormal ECG No previous ECGs available Confirmed by Pavel Archibald ([id number]) on 10/03/2021 6:30:19 PM Referred By: REFERRED SELF Confirmed By:Pavel Archibald
[2021-10-03] MEDS: LORazepam 1 MG TAB PO PRN ×2 (19:00→23:24)
[2021-10-03] MEDS ORDERED: GABAPENTIN 600 MG TAB PO SCH (20:00)
[2021-10-03] MEDS: AZELASTINE HCL 0.1% NASAL 200 SPRAYS/27,400 MCG BTL SCH (20:28)
[2021-10-03] MEDS: MONTELUKAST SODIUM 10 MG TABLET PO SCH (20:28)
[2021-10-03] MEDS ORDERED: ACETAMINOPHEN 325 MG TAB PO PRN (23:48)
[2021-10-03] MEDS ORDERED: KETOROLAC TROMETHAMINE 15 MG/ML VIAL IV ONE (23:48)
[2021-10-03] MEDS ORDERED: SODIUM CHLORIDE 0.9% 500 ML IV ONE (23:49)
[2021-10-03] MEDS ORDERED: POTASSIUM CHLORIDE CRTAB 20 MEQ TABCR PO STA (23:50)
[2021-10-04] MEDS ORDERED: MAGNESIUM SULFATE / D5W 1 GM/100 ML BAG IV ONE
[2021-10-04] MEDS: CIPROFLOXACIN / D5W 400 MG/200 ML BAG IV SCH (02:28)
[2021-10-04] MEDS ORDERED: Nursing to Pharmacy 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 SCH (06:45)
--- NOTE | 2021-10-04 06:50 | Surgery Progress Note ---
Date of Service October 04, 2021 Assessment & Plan (1) Acute appendicitis with localized peritonitis: Plan: pt is a ETOH abuse,abnormal LFT, who presents to Er with not feels well, CT scan diagnosis- ADDENDUM Addendum: Upon further review, the caliber of the appendix is within normal limits and there is no periappendiceal infiltration. There is no evidence for acute appendicitis. Discussed with Dr. Salcido at time of addendum. Plan, order gallbladder U/S study, base on abnormal LFT, no significant abdominal pain, I recommend to do conservative treatment appendicitis, try to avoid emergent surgery, IV antibiotic, cipro + flagyl, repeat labs in morning, if pt's symptoms worse I would recommend to do laparoscopic appendectomy, possible open, D/W benefits, risks and alternatives of the surgery, the risks - infection, bleeding, abscess. bowel obstruction, possible developing perforation of appendicitis, during conservative treatment period, worse liver function, coma, , pt understood, she agrees with the treatment plan, , I answered all questions, D/W GI DR. Salcido who recommend try conservative treatment first, MRCP to R/O gallstone, or CBD stone, 10/04/2021 6:55AM MRCP- no gallstone or CBD stone, base on clinic exam and CT scan ADDENDUM Addendum: Upon further review, the caliber of the appendix is within normal limits and there is no periappendiceal infiltration. There is no evidence for acute appendicitis. Discussed with Dr. Salcido at time of addendum. no surgery indication for appendix and gallbladder, continue conservative treatment abnormal LFT, stop cipro, regular diet, [employer] ax consultant surgeon will cover this weekend, thanks, Admission and Anticipated Discharge Date Admission Date: October 03, 2021 Supervising Physician Co-Signing Physician Notes 36 y/o female with a hx of EtOH abuse (drinks 6 small cans of 99% alcohol daily since last 10 years), pancreatitis, prior alcoholic hepatitis, asthma, depression, anxiety, ADHA and allergies presented to ED 10/03/21 with one week of flu-like symptoms that are gradually worsening associated with yellowing of her skin. Patient also reports abdominal bloating and pain. Patient has been in and out of inpatient rehab and now wants to quit drinking. She is found to have alcoholic hepatitis, and appendicitis. GI and surgery aware. Appreciate recommendations. Patient will be kept on AWSS protocol, as needed Zofran, monitor QTC, resume home meds as appropriate. Currently n.p.o. per surgery. Upon Exam : GENERAL: Alert and oriented x3. NAD, on RA. yellowing of skin all over noted. HEENT: No pallor, +++ icterus. Pupils equal, round and reactive to light. Oral mucosa moist. NECK: No JVD, no neck masses. HEART: S1 and S2 heard. Regular rate and rhythm. No murmur, no gallop. RESPIRATORY SYSTEM: Normal AP diameter. No accessory muscle use. No wheezing, no crackles. ABDOMEN: Soft, bowel sounds present, tender Rt hypochondriac and RLQ, no rebound tender, no distention. CENTRAL NERVOUS SYSTEM: No facial droop. Speech is clear. Obeys simple commands. Moves extremities. EXTREMITIES: No edema, no erythema seen. I have seen and examined the patient and have discussed the case with the provider above. I agree with the assessment and plan as stated. Subjective F/U possible appendicitis, pt feels some abdominal pain on epigastric area, no pain at RLQ, no nausea, no vomiting, no fever, pt tolerated diet last night, reviewed radiology- ADDENDUM, CT scan Addendum: Upon further review, the caliber of the appendix is within normal limits and there is no periappendiceal infiltration. There is no evidence for acute appendicitis. Discussed with Dr. Salcido at time of addendum. Physical Exam Constitutional: WD/WN, vitals as above Eyes: PERRL, conjunctivae normal, anicteric sclerae jaundice Neck: trachea midline, no thyromegaly Respiratory: normal respiratory effort, lungs clear to auscultation Cardiovascular: RRR, no murmur, no edema Gastrointestinal (Abdomen): soft, mild tenderness at epigastric area, no tenderness at RLQ, no rebound pain, no distend, BS + Musculoskeletal: no cyanosis or clubbing, extremities motor strength 5/5 Neurologic: patellar DTR's 2+ bilat, sensation intact Psychiatric: A+Ox3, euthymic affect Results & Data ([facility]) Vital Signs (Past 12 Hours) Vital Signs Temp Pulse Pulse Resp BP BP Pulse Ox 10/04/21 04:46 36.8 C 94 H 18 95/66 L 96 10/03/21 22:56 36.8 C 112 H 20 107/65 95 10/03/21 22:00 105 H 29 H 116/78 10/03/21 21:00 111 H 29 H 101/61 10/03/21 20:00 121 H 31 H 104/62 95 10/03/21 19:57 37.6 C H 94 H 20 104/62 95 10/03/21 19:00 114 H 22 127/99
[2021-10-04 08:01] LABS: Basophils # (auto) 0.03 K/uL (0-0.2); Basophils % (auto) 0.3 %; Eosinophils # (auto) 0.13 K/uL (0-0.5); Eosinophils % (auto) 1.3 %; Hematocrit (blood only) 31.7 % (37-47); Immature Granulocytes # (auto) 0.06 K/uL (0.00-0.02); Immature Granulocytes % (auto) 0.6 %; Lymphocytes # (auto) 1.52 K/uL (1.2-3.4); Lymphocytes % (auto) 15.5 %; Mean Corpuscular Hemoglobin 33.8 pg (25-34); Mean Corpuscular Hgb Conc 31.5 g/dL (32-36); Mean Corpuscular Volume 107.1 fL (80-100); Mean Platelet Volume 11.2 fL (7.4-10.4); Monocytes # (auto) 0.88 K/uL (0.11-0.59); Neutrophils # (auto) 7.17 K/uL (1.4-6.5); Neutrophils % (auto) 73.3 %; Nucleated RBC # (auto) 0.04 K/uL (0-0); Nucleated RBC % (auto) 0.4 %; Platelet Count 132 K/uL (130-400); RDW Coefficient of Variation 17.4 % (11.5-14.5); RDW Standard Deviation 68.3 fL (36.4-46.3); Red Blood Count 2.96 M/uL (4.2-5.4); White Blood Count 9.79 K/uL (4.8-10.8)
[2021-10-04 08:07] LABS: INR 1.2 (0.9-1.1); Prothrombin Time 11.8 Seconds (9.0-12.0)
[2021-10-04] MEDS: THIAMINE HCL 100 MG TAB PO SCH (08:10)
[2021-10-04] MEDS: buPROPion XL 300 MG TABCR PO SCH (08:10)
[2021-10-04] MEDS: FOLIC ACID 1 MG TAB PO SCH (08:10)
[2021-10-04] MEDS: LORATADINE 10 MG TAB PO SCH (08:10)
[2021-10-04] MEDS: busPIRone 5 MG TAB PO SCH ×3 (08:10→20:16)
[2021-10-04] MEDS: GABAPENTIN 600 MG TAB PO SCH ×2 (08:10→16:31)
[2021-10-04] MEDS: FLUTICASONE/VILANTEROL 200/25MCG 14 PUFFS/INHALER INH SCH (08:11)
[2021-10-04] MEDS: AZELASTINE HCL 0.1% NASAL 200 SPRAYS/27,400 MCG BTL SCH ×2 (08:11→20:16)
[2021-10-04] MEDS: FLUTICASONE PROPIONATE NA SPR 16 GM BTL SCH (08:11)
[2021-10-04] MEDS: oxyCODONE HCL IR 5 MG TAB (IMMEDIATE RELEASE) PO PRN ×3 (08:15→20:15)
[2021-10-04] MEDS: AMPHETAMINE ASP/SULF/DEXTRAMPH 5 MG TAB PO SCH ×2 (08:16→11:50)
[2021-10-04] MEDS ORDERED: AMPHETAMINE ASP/SULF/DEXTRAMPH 10 MG TAB PO SCH (09:00)
[2021-10-04] MEDS ORDERED: PANTOprazole 40 MG TAB PO SCH (09:00)
[2021-10-04 11:10] LABS: Alanine Aminotransferase 40 U/L (7-52); Albumin Level 2.6 gm/dl (3.4-5.0); Alkaline Phosphatase 264 U/L (34-104); Aspartate Aminotransferase 150 U/L (13-39); Bilirubin,Total 15.3 mg/dl (0.2-1.0); Blood Urea Nitrogen < 2 mg/dl (6-23); Calcium 7.3 mg/dl (8.5-10.1); Chloride 100 mmol/L (98-107); Glucose 74 mg/dl (70-99); Potassium 3.4 mmol/L (3.5-5.1); Sodium 133 mmol/L (136-145); Total Protein 5.1 gm/dl (6.0-8.3)
[2021-10-04 11:11] LABS: Creatinine Clr Calc Pharmacy 116.7 ml/min; Est GFR (African American) 135.6 ml/min
[2021-10-04 11:12] LABS: Anion Gap 8.5 (3-11)
[2021-10-04 11:15] LABS: Bilirubin Direct 11.6 mg/dl (0-0.2); Carbon Dioxide 25 mmol/L (21-32)
[2021-10-04] MEDS ORDERED: CALCIUM CARBONATE 500 MG CHEWABLE TAB PO PRN (11:25)
--- NOTE | 2021-10-04 11:51 | Gastroenterology Progress Note ---
Date of Service October 04, 2021 Assessment & Plan (1) Alcoholic hepatitis: Plan: Low DF at 14, no indication for steroids or Trental. There is no evidence for ascites on imaging, thus suspicion for SBP and no indication for paracentesis. No CBD dilation, no indication for EUS or ERCP at this time. Renal function is normal. 1. Alcohol abstention 2. IV fluids 3. Will follow LFTs, INR daily . 4. 2 g sodium diet 5. Appreciate: Alcohol withdrawal protocol by primary hospitalists. 6. Would expect mild discomfort with alcoholic hepatitis, though no clear etiology of patient's complaints of diffuse moderate abdominal pain, thus would minimize/avoid narcotics as much as possible. 7. GI watch peripherally. Admission and Anticipated Discharge Date Admission Date: October 03, 2021 Supervising Physician Co-Signing Physician Notes Attg add: I interviewed and examined pt, reviewed chart and labs. Pt with normal MRCP, uls. Presentation c/w alc hep. No indication for trental or steroids. Please call us if questions. Subjective 36-year-old female presented yesterday to the ED for abdominal pain, jaundice, and asking for help with alcohol cessation. History of prior alcoholic pancreatitis in June 2021.. Had abstained but relapsed over the holidays. Has jaundice, moderate ascites. On ultrasound CT and MRCP there is fatty liver but no evidence of cirrhosis. DF today equals 14 ( T Bili 11 yesterday ->15 today; PT 11.8). Transaminases are elevated but improving today: AST 196->150, ALT 59->40. Initially CT scan read as appendicitis. Surgery involved evaluated and after radiology 2nd opinion being without appendicitis - no plans for sugery. Patient continues with diffuse abdominal pain, was able to eat small amount of regular consistency food this morning. No confusion. No tremor or asterixis today. Review of Systems Review of Systems: ROS: Gen: + weakness, No fevers, No weight loss Eyes: No eye redness, or pain, no recent vision changes Resp: No SOB, + cough x a few wks Cardio: No palpitations/irregular beats, no chest pain GI: As per HPI, otherwise (-) : Denies pain on urination Skin: + jaundice, No itching or new rashes Psych: denies thoughts of self harm Physical Exam Constitutional: well developed, + ill appearing and cooperative fatigued, very restful, sleeping but easily arroused. Eyes: PERRL, conjunctivae normal, anicteric sclerae Respiratory: normal respiratory effort, lungs clear to auscultation Cardiovascular: Rate/Rhythm: regular rate (mildly tachy in 100 - 110s) and regular rhythm Heart Sounds: no murmur Gastrointestinal (Abdomen): Inspection/Auscultation: + abdomen distended (mild, diffuse) and normal bowel sounds; no abdominal edema Percussion/Palpation: + abdomen tender (Mild diffuse adbdominal msk tenderness. No signs of acute abdomen.) and abdomen soft; no guarding and abdomen not rigid Skin: + jaundice (++); no lesions and no ulcers Neurologic: PERRL, EOMI, accommodation nl, no face palsy, no dysarthria awake; not confused Psychiatric: A+Ox3, euthymic affect Lymphatic: no cervical or axillary lymphadenopathy Results & Data ([facility]) Vital Signs (Past 12 Hours) Vital Signs Temp Pulse Pulse Resp BP Pulse Ox 10/04/21 11:05 36.8 C 104 H 20 96/65 L 93 10/04/21 07:36 97 H 10/04/21 07:33 37.0 C 106 H 22 86/48 L 97 10/04/21 04:46 36.8 C 94 H 18 95/66 L 96 Laboratory Results WBC 9.7, Hb 10, Hct 31, Plts 132, Na 133, K3.4, CL 100, CO2 28, BUN 2, creatinine 0.6, glucose 79, PT 11.8, INR 1.2, T bili 15, AST 150, ALT 40, alk phos 264 Diagnostic Findings Liver US 10/03/2021: 1. Contracted gallbladder. This likely accounts for gallbladder wall thickening. No evidence for acute cholecystitis. 2. No biliary ductal dilatation. 3. Hepatic steatosis and hepatomegaly. CTAP with IV 10/03/2021: Addendum: Upon further review, the caliber of the appendix is within normal limits and there is no periappendiceal infiltration. There is no evidence for acute appendicitis. Discussed with Dr. Salcido at time of addendum. 1. CT findings demonstrating acute appendicitis of the proximal body of the appendix as described above. No perforation or abscess. 2. Thick walled, partially contracted and enhanced gallbladder with suspicion of pericholecystic edema. Follow-up gallbladder ultrasound is recommended as well. 3. Hepatomegaly with diffuse fatty infiltration of the liver. MRCP 10/03/2021: 1. No evidence of biliary obstruction. 2. Contracted gallbladder with thickening of the gallbladder wall. 3. No acute abnormality identified. (1) Alcoholic hepatitis Ascites presence: unspecified Qualified Code(s): K70.10 - Alcoholic hepatitis without ascites
[2021-10-04] MEDS: LORazepam 1 MG TAB PO PRN (11:54)
[2021-10-04] MEDS ORDERED: GABAPENTIN 600 MG TAB PO SCH (14:00)
--- NOTE | 2021-10-04 14:56 | Hospitalist Progress Note ---
Date of Service October 04, 2021 Assessment & Plan (1) Alcohol abuse with withdrawal: (2) Alcoholic hepatitis: Plan: 36 y/o female with a hx of EtOH abuse (drinks 6 small cans of 99% alcohol daily x last 2 years; drinking since last 10 years), pancreatitis, prior alcoholic hepatitis, asthma, depression, anxiety, ADHA and allergies presented to ED 10/03/21 with one week of flu-like symptoms that gradually worsened associated with yellowing of her skin. Patient also reports abdominal bloating and pain. Patient has been in and out of inpatient rehab and now wants to quit drinking. Pt denies setting up with AA. She is being managed for the following: #. Alcohol abuse #. Impending alcohol withdrawal Patient reports drinking since last 10 years, in and out of rehab with multiple relapses, has been drinking 6 small cans of 99% alcohol daily since last 2 years History of withdrawal symptoms previously - last drink was the night prior to arrival.Her last drink was 1 can of liquor as opposed to usual 6 cans. Noticed symptoms of withdrawal on the morning of arrival with nausea, shakiness. Patient advised on complete abstinence, is willing to quit alcohol Continue with folic acid and thiamine, continue with FRANCI protocol #. Alcoholic hepatitis Alcohol abuse as above Admitting imaging: ~ CXR: No acute findings ~ CTAP:No concerns for acute appendicitis upon second review, concerning for thick walled/partially contracted and enhanced gallbladder with suspicion of pericholecystic edema. Hepatomegaly with diffuse fatty infiltration. ~ Liver ultrasound:No evidence of acute cholecystitis but gallbladder wall thickening appreciated. Hepatic steatosis and hepatomegaly. ~ MRCP: No evidence of biliary obstruction. Contracted GB with GB wall thickening. No other acute findings. INR 1.4 at presentation with albumin 2.9 and elevation of ALT and AST and ALP and direct bilirubin of 6.7 DF score 14, Daily labs including INR, no ascites in imaging Alcohol abstinence, counselled multiple times. GI evaluated: low sod diet (2g), expect mild discomfort with alcoholic hepatitis. #. Likely APD #. Low Hb Patient complaining of bloating/pain sensation Admitting lipase normal, neg for appendicitis. Patient started on pantoprazole, added Tums today Could be contributed by ongoing alcoholic hepatitis versus APD on the background of chronic alcohol abuse Continue to monitor Patient's hemoglobin baseline around 12, hemoglobin dropped to 10 today, will send FOBT, not sure if the current drop is actual drop or due to hemodilution. Continue to monitor. #. Other Chronic medical conditions: ADD, anxiety, asthma Continue home medications for chronic conditions as appropriate. DVT Prophylaxis: SCDs for now, trend INR, consider heparin when able. Code Status: full code Admission and Anticipated Discharge Date Admission Date: October 03, 2021 Subjective Patient was lying in bed, on room air, NAD, reports being bothered by belly pain overnight. Patient has been asking pain medication frequently. Upon examination, I could not elicit any focal tenderness or diffuse tenderness. Patient reports bloated sensation. Will order Tums, patient is already on pantoprazole, continue to monitor, possibly rescan daily if worsening. Due to bloating, patient reports not able to sleep. Patient reports eating a little bit in the morning. Patient denies headache/dizziness/chest p ain/palpitation/other review of symptoms. Physical Exam Physical Exam: GENERAL: Alert and oriented x3. NAD, on RA. yellowing of skin all over noted. HEENT: No pallor, +++ icterus. Pupils equal, round and reactive to light. Oral mucosa moist. NECK: No JVD, no neck masses. HEART: S1 and S2 heard. Regular rate and rhythm. No murmur, no gallop. RESPIRATORY SYSTEM: Normal AP diameter. No accessory muscle use. No wheezing, no crackles. ABDOMEN: Soft, bowel sounds present, no rebound tender, distension +; no tenderness could be elicited (pt reports pain/bloating) CENTRAL NERVOUS SYSTEM: No facial droop. Speech is clear. Obeys simple commands. Moves extremities. EXTREMITIES: No edema, no erythema seen. Results & Data Results & Data ([facility]) Vital Signs (Past 12 Hours) Vital Signs Temp Pulse Pulse Resp BP Pulse Ox 10/04/21 11:05 36.8 C 104 H 20 96/65 L 93 10/04/21 07:36 97 H 10/04/21 07:33 37.0 C 106 H 22 86/48 L 97 10/04/21 04:46 36.8 C 94 H 18 95/66 L 96 (1) Alcoholic hepatitis Ascites presence: unspecified Qualified Code(s): K70.10 - Alcoholic hepatitis without ascites
--- NOTE | 2021-10-04 19:15 | Electrocardiogram Report ---
Test Reason : Blood Pressure : / mmHG Vent. Rate : 102 BPM Atrial Rate : 102 BPM P-R Int : 154 ms QRS Dur : 064 ms QT Int : 382 ms P-R-T Axes : 036 -05 025 degrees QTc Int : 497 ms Sinus tachycardia Low voltage QRS Borderline ECG When compared with ECG of 03-OCT-2021 07:28, Minimal criteria for Anteroseptal infarct are no longer Present Confirmed by Ba Kumar ([id number] on 10/04/2021 7:15:11 PM Referred By: REFERRED SELF Confirmed By:Ba Kumar
[2021-10-04] MEDS: PANTOprazole 40 MG TAB PO SCH (20:16)
[2021-10-04] MEDS: MONTELUKAST SODIUM 10 MG TABLET PO SCH (20:16)
[2021-10-05] MEDS: GABAPENTIN 600 MG TAB PO SCH ×3 (00:28→22:57)
[2021-10-05] MEDS: oxyCODONE HCL IR 5 MG TAB (IMMEDIATE RELEASE) PO PRN ×3 (01:30→19:47)
--- NOTE | 2021-10-05 05:21 | Surgery Progress Note ---
Date of Service October 05, 2021 Assessment & Plan (1) Abdominal pain: Plan: Patient has been admitted on the hospitalist service. Initial concern was that patient may have had cholecystitis or acute appendicitis Imaging has been reviewed and there is no evidence of cholecystitis on biliary ultrasound and there is no evidence of appendicitis on CT scan of the abdomen Patient has been evaluated by GI and is felt that her symptoms may be related to alcoholic hepatitis No need for surgical intervention at this time Admission and Anticipated Discharge Date Admission Date: October 03, 2021 Supervising Physician Co-Signing Physician Notes Dr. Hanks-patient says she feels somewhat better than yesterday No plan at the present time for surgical intervention Subjective Patient is resting comfortably in bed.She notes that she ate solid food for dinner last evening and did not note any worsening abdominal pain. She also denies any nausea vomiting with consuming solid food. She denies any fevers, shakes, chills. Physical Exam Gastrointestinal (Abdomen): Abdomen is soft and minimally distended. Bowel sounds are present but hypoactive. Patient has some slight tenderness with palpation in a generalized fashion but does not have any rebound tenderness or guarding. There is no pinpoint pain in the right lower quadrant over McBurney's point. Results & Data ([facility]) Vital Signs (Past 12 Hours) Vital Signs Temp Pulse Resp BP Pulse Ox 10/05/21 04:10 37 C 116 H 20 111/71 93 10/05/21 00:05 37.9 C H 119 H 20 99/67 L 96 10/04/21 19:30 37.3 C 114 H 20 109/69 94 PG Care Time/CCT Total # of Minutes Spent Total Time Spent with Patient: Total time spent is greater than 50% in coordination of care (as documented) at patient's floor/unit and/or counseling patient: Coding Level of Care Code 93021 Subseq Hosp Care Lvl 1 Diagnoses Abdominal pain R10.9
[2021-10-05] MEDS: PANTOprazole 40 MG TAB PO SCH ×2 (07:25→19:44)
[2021-10-05] MEDS: LORATADINE 10 MG TAB PO SCH (07:26)
[2021-10-05] MEDS: FOLIC ACID 1 MG TAB PO SCH (07:27)
[2021-10-05] MEDS: THIAMINE HCL 100 MG TAB PO SCH (07:27)
[2021-10-05] MEDS: buPROPion XL 300 MG TABCR PO SCH (07:27)
[2021-10-05] MEDS: busPIRone 5 MG TAB PO SCH ×3 (07:28→19:43)
[2021-10-05] MEDS: AZELASTINE HCL 0.1% NASAL 200 SPRAYS/27,400 MCG BTL SCH ×2 (07:29→19:42)
[2021-10-05] MEDS: FLUTICASONE/VILANTEROL 200/25MCG 14 PUFFS/INHALER INH SCH (07:30)
[2021-10-05] MEDS: FLUTICASONE PROPIONATE NA SPR 16 GM BTL SCH (07:30)
[2021-10-05] MEDS: AMPHETAMINE ASP/SULF/DEXTRAMPH 5 MG TAB PO SCH ×2 (07:34→12:22)
[2021-10-05] MEDS ORDERED: POTASSIUM CHLORIDE CRTAB 20 MEQ TABCR PO STA (08:45)
[2021-10-05 08:52] LABS: Basophils # (auto) 0.05 K/uL (0-0.2); Basophils % (auto) 0.3 %; Eosinophils # (auto) 0.11 K/uL (0-0.5); Eosinophils % (auto) 0.7 %; Hematocrit (blood only) 33.9 % (37-47); Hemoglobin 10.9 g/dL (12.0-16.0); Immature Granulocytes # (auto) 0.18 K/uL (0.00-0.02); Immature Granulocytes % (auto) 1.1 %; Lymphocytes # (auto) 2.41 K/uL (1.2-3.4); Lymphocytes % (auto) 14.3 %; Mean Corpuscular Hemoglobin 34.7 pg (25-34); Mean Corpuscular Hgb Conc 32.2 g/dL (32-36); Mean Platelet Volume 10.9 fL (7.4-10.4); Monocytes % (auto) 8.9 %; Neutrophils # (auto) 12.62 K/uL (1.4-6.5); Neutrophils % (auto) 74.7 %; Nucleated RBC # (auto) 0.08 K/uL (0-0); Nucleated RBC % (auto) 0.5 %; Platelet Count 164 K/uL (130-400); RDW Coefficient of Variation 17.5 % (11.5-14.5); RDW Standard Deviation 67.8 fL (36.4-46.3); Red Blood Count 3.14 M/uL (4.2-5.4); White Blood Count 16.87 K/uL (4.8-10.8)
[2021-10-05 09:06] LABS: INR 1.3 (0.9-1.1); Prothrombin Time 12.7 Seconds (9.0-12.0)
[2021-10-05 09:20] LABS: Albumin Level 2.9 gm/dl (3.4-5.0); Bilirubin,Total 20.9 mg/dl (0.2-1.0); Total Protein 5.8 gm/dl (6.0-8.3)
[2021-10-05 10:00] LABS: Bilirubin Direct 15.4 mg/dl (0-0.2)
--- NOTE | 2021-10-05 16:33 | Hospitalist Progress Note ---
Date of Service October 05, 2021 Assessment & Plan (1) Alcohol abuse with withdrawal: (2) Alcoholic hepatitis: Plan: 36 y/o female with a hx of EtOH abuse (drinks 6 small cans of 99% alcohol daily x last 2 years; drinking since last 10 years), pancreatitis, prior alcoholic hepatitis, asthma, depression, anxiety, ADHA and allergies presented to ED 10/03/21 with one week of flu-like symptoms that gradually worsened associated with yellowing of her skin. Patient also reports abdominal bloating and pain. Patient has been in and out of inpatient rehab and now wants to quit drinking. Pt denies setting up with AA. She is being managed for the following: #. Alcohol abuse #. Impending alcohol withdrawal Patient reports drinking since last 10 years, in and out of rehab with multiple relapses, has been drinking 6 small cans of 99% alcohol daily since last 2 years History of withdrawal symptoms previously - last drink was the night prior to arrival.Her last drink was 1 can of liquor as opposed to usual 6 cans. Noticed symptoms of withdrawal on the morning of arrival with nausea, shakiness. Patient advised on complete abstinence, is willing to quit alcohol. CM consulted. Continue with folic acid and thiamine, continue with FRANCI protocol #. Alcoholic hepatitis Alcohol abuse as above Admitting imaging: ~ CXR: No acute findings ~ CTAP:No concerns for acute appendicitis upon second review, concerning for thick walled/partially contracted and enhanced gallbladder with suspicion of pericholecystic edema. Hepatomegaly with diffuse fatty infiltration. ~ Liver ultrasound:No evidence of acute cholecystitis but gallbladder wall thickening appreciated. Hepatic steatosis and hepatomegaly. ~ MRCP: No evidence of biliary obstruction. Contracted GB with GB wall thickening. No other acute findings. INR 1.4 at presentation with albumin 2.9 and elevation of ALT and AST and ALP and direct bilirubin of 6.7 DF score 14, Daily labs including INR, no ascites in imaging Alcohol abstinence, counselled multiple times. GI evaluated: low sod diet (2g), expect mild discomfort with alcoholic hepatitis. Liver enzymes incl. bilirubin uptrending, c/t monitor, will d/w GI if continues to uptrend tomorrow. #. Likely APD #. Low Hb Patient complaining of bloating/pain sensation Admitting lipase normal, neg for appendicitis. Patient started on pantoprazole, Tums prn Could be contributed by ongoing alcoholic hepatitis versus APD on the background of chronic alcohol abuse Continue to monitor Patient's hemoglobin baseline around 12, hemoglobin dropped to 10, FOBT sent, not sure if the current drop is actual drop or due to hemodilution. Hemoglobin is stable around 10. Continue to monitor. #. Other Chronic medical conditions: ADD, anxiety, asthma Continue home medications for chronic conditions as appropriate. DVT Prophylaxis: SCDs for now, trend INR, consider heparin when able. Code Status: full code 10/04: Had conversation with patient's mother at bedside, updated about patient's current status and the risks of her going into withdrawal or possibly withdrawal seizure between day 2 and 4 of her last drink of alcohol. Reiterated that she needs to completely quit drinking going forward. Patient's mother asked if there is any services/support system for helping her quitting drinking she would like to explore with telephonic case manager. Admission and Anticipated Discharge Date Admission Date: October 03, 2021 Subjective Patient lying in bed, on room air, NAD, no new acute events overnight. Patient reports bloated belly, but she has been able to tolerate food well and has been eating and moving bowels okay. Patient denies any fever/chills/chest pain/palpitations/other review of symptoms. Physical Exam Physical Exam: GENERAL: Alert and oriented x3. NAD, on RA. yellowing of skin all over noted. HEENT: No pallor, +++ icterus. Pupils equal, round and reactive to light. Oral mucosa moist. NECK: No JVD, no neck masses. HEART: S1 and S2 heard. Regular rate and rhythm. No murmur, no gallop. RESPIRATORY SYSTEM: Normal AP diameter. No accessory muscle use. No wheezing, no crackles. ABDOMEN: Soft, bowel sounds present, no rebound tender, distension +; no tenderness could be elicited (pt reports pain/bloating) CENTRAL NERVOUS SYSTEM: No facial droop. Speech is clear. Obeys simple commands. Moves extremities. EXTREMITIES: No edema, no erythema seen. Results & Data Results & Data ([facility]) Vital Signs (Past 12 Hours) Vital Signs Temp Pulse Pulse Resp BP Pulse Ox Pulse Ox 10/05/21 15:18 36.6 C 106 H 113/75 90 10/05/21 11:04 36.8 C 110 H 20 99/65 L 95 10/05/21 09:30 113 H 10/05/21 09:29 94 10/05/21 07:13 37.0 C 121 H 20 101/67 94 (1) Alcoholic hepatitis Ascites presence: unspecified Qualified Code(s): K70.10 - Alcoholic hepatitis without ascites
[2021-10-05] MEDS ORDERED: GABAPENTIN 600 MG TAB PO SCH (18:00)
[2021-10-05] MEDS: MONTELUKAST SODIUM 10 MG TABLET PO SCH (19:45)
--- NOTE | 2021-10-06 05:35 | Surgery Progress Note ---
Date of Service October 06, 2021 Assessment & Plan (1) Abdominal pain: Plan: Patient has been admitted on the hospitalist service. Surgery was consulted secondary to abdominal pain and concern for cholecystitis or acute appendicitis Imaging that has been performed showed no evidence of cholecystitis on biliary ultrasound and there is no evidence of appendicitis on CT scan of the abdomen No need for surgical intervention Admission and Anticipated Discharge Date Admission Date: October 03, 2021 Subjective Patient is resting comfortably in bed. She is notes that she continues to tolerate diet without any nausea vomiting. She does note some minor abdominal pain but is overall improved since admission. Physical Exam Gastrointestinal (Abdomen): Abdomen noted to have slight distention but bowel sounds are present. There is no rebound tenderness or guarding. Minimal pain noted with palpation this morning. Results & Data ([facility]) Vital Signs (Past 12 Hours) Vital Signs Temp Pulse Resp BP Pulse Ox 10/06/21 03:00 37.1 C 103 H 18 102/62 95 10/05/21 22:57 37.3 C 106 H 18 97/65 L 94 10/05/21 19:18 36.8 C 107 H 18 108/72 95 PG Care Time/CCT Total # of Minutes Spent Total Time Spent with Patient: Total time spent is greater than 50% in coordination of care (as documented) at patient's floor/unit and/or counseling patient: Coding Level of Care Code 81944 Subseq Hosp Care Lvl 1 Diagnoses Abdominal pain R10.9
[2021-10-06 06:53] LABS: Basophils # (auto) 0.06 K/uL (0-0.2); Basophils % (auto) 0.4 %; Eosinophils # (auto) 0.07 K/uL (0-0.5); Eosinophils % (auto) 0.5 %; Hematocrit (blood only) 32.8 % (37-47); Hemoglobin 10.3 g/dL (12.0-16.0); Immature Granulocytes # (auto) 0.18 K/uL (0.00-0.02); Immature Granulocytes % (auto) 1.3 %; Lymphocytes # (auto) 1.68 K/uL (1.2-3.4); Lymphocytes % (auto) 12.1 %; Mean Corpuscular Hemoglobin 34.9 pg (25-34); Mean Corpuscular Hgb Conc 31.4 g/dL (32-36); Mean Corpuscular Volume 111.2 fL (80-100); Monocytes # (auto) 1.73 K/uL (0.11-0.59); Monocytes % (auto) 12.4 %; Neutrophils % (auto) 73.3 %; Nucleated RBC # (auto) 0.05 K/uL (0-0); Nucleated RBC % (auto) 0.4 %; Platelet Count 152 K/uL (130-400); RDW Coefficient of Variation 18.1 % (11.5-14.5); RDW Standard Deviation 71.4 fL (36.4-46.3); Red Blood Count 2.95 M/uL (4.2-5.4); White Blood Count 13.92 K/uL (4.8-10.8)
[2021-10-06 07:08] LABS: INR 1.3 (0.9-1.1)
[2021-10-06 07:16] LABS: Macrocytosis Present; Polychromasia 1+
[2021-10-06 08:07] LABS: iSTAT Carbon Dioxide 23 mmol/L (24-31); iSTAT Chloride 103 mmol/L (101-112); iSTAT Ionized Calcium 1.07 mmol/l (1.12-1.32); iSTAT Potassium 4.4 mmol/L (3.3-5.0); iSTAT Sodium 136 mmol/L (135-144)
[2021-10-06 08:08] LABS: iSTAT Blood Urea Nitrogen < 3 mg/dl (7-18); iSTAT Creatinine 0.6 mg/dl (0.6-1.3); iSTAT Hematocrit 36 % (37-47); iSTAT Hemoglobin 12.2 g/dl (12.0-16.0)
[2021-10-06 08:12] LABS: iSTAT Glucose 66 mg/dl (70-99)
[2021-10-06] MEDS: busPIRone 5 MG TAB PO SCH ×2 (08:14→14:00)
[2021-10-06] MEDS: PANTOprazole 40 MG TAB PO SCH ×2 (08:14→20:33)
[2021-10-06] MEDS: FOLIC ACID 1 MG TAB PO SCH (08:14)
[2021-10-06] MEDS: LORATADINE 10 MG TAB PO SCH (08:14)
[2021-10-06] MEDS: THIAMINE HCL 100 MG TAB PO SCH (08:14)
[2021-10-06] MEDS: FLUTICASONE PROPIONATE NA SPR 16 GM BTL SCH (08:14)
[2021-10-06] MEDS: AZELASTINE HCL 0.1% NASAL 200 SPRAYS/27,400 MCG BTL SCH ×2 (08:15→20:32)
[2021-10-06] MEDS: FLUTICASONE/VILANTEROL 200/25MCG 14 PUFFS/INHALER INH SCH (08:15)
[2021-10-06 08:17] LABS: Albumin Level 2.7 gm/dl (3.4-5.0); Bilirubin,Total 21.8 mg/dl (0.2-1.0); Total Protein 5.4 gm/dl (6.0-8.3)
[2021-10-06] MEDS: AMPHETAMINE ASP/SULF/DEXTRAMPH 5 MG TAB PO SCH ×2 (08:18→11:51)
[2021-10-06] MEDS: oxyCODONE HCL IR 5 MG TAB (IMMEDIATE RELEASE) PO PRN ×3 (08:20→23:54)
[2021-10-06] MEDS: buPROPion XL 300 MG TABCR PO SCH (08:39)
[2021-10-06 09:53] LABS: Bilirubin Direct 14.2 mg/dl (0-0.2)
[2021-10-06] MEDS ORDERED: CALCIUM CARBONATE 500 MG CHEWABLE TAB PO PRN (14:28)
--- NOTE | 2021-10-06 14:28 | Hospitalist Progress Note ---
Date of Service October 06, 2021 Assessment & Plan (1) Alcohol abuse with withdrawal: (2) Alcoholic hepatitis: Plan: 36 y/o female with a hx of EtOH abuse (drinks 6 small cans of 99% alcohol daily x last 2 years; drinking since last 10 years), pancreatitis, prior alcoholic hepatitis, asthma, depression, anxiety, ADHA and allergies presented to ED 10/03/21 with one week of flu-like symptoms that gradually worsened associated with yellowing of her skin. Patient also reports abdominal bloating and pain. Patient has been in and out of inpatient rehab and now wants to quit drinking. Pt denies setting up with AA. She is being managed for the following: #. Alcohol abuse #. Impending alcohol withdrawal Patient reports drinking since last 10 years, in and out of rehab with multiple relapses, has been drinking 6 small cans of 99% alcohol daily since last 2 years History of withdrawal symptoms previously - last drink was the night prior to arrival.Her last drink was 1 can of liquor as opposed to usual 6 cans. Noticed symptoms of withdrawal on the morning of arrival with nausea, shakiness. Patient advised on complete abstinence, is willing to quit alcohol. CM consulted. Patient is interested in [facility], CM working with it. Continue with folic acid and thiamine, continue with AWSS protocol. Decreasing prn ativan requirement. 10/06 d/w with psychiatry, no formal consult placed---> [facility] would be better given she is on Adderall, recommends follow-up with her outpatient prescriber, patient is to be opiate free for 7 to 10 days to restart naltrexone. It can be started as an outpatient at [facility] as Patient is getting opiate while in the hospital #. Alcoholic hepatitis Alcohol abuse as above Admitting imaging: ~ CXR: No acute findings ~ CTAP:No concerns for acute appendicitis upon second review, concerning for thick walled/partially contracted and enhanced gallbladder with suspicion of pericholecystic edema. Hepatomegaly with diffuse fatty infiltration. ~ Liver ultrasound:No evidence of acute cholecystitis but gallbladder wall thickening appreciated. Hepatic steatosis and hepatomegaly. ~ MRCP: No evidence of biliary obstruction. Contracted GB with GB wall thickening. No other acute findings. INR 1.4 at presentation with albumin 2.9 and elevation of ALT and AST and ALP and direct bilirubin of 6.7 DF score 14, Daily labs including INR, no ascites in imaging Alcohol abstinence, counselled multiple times. GI evaluated: low sod diet (2g), expect mild discomfort with alcoholic hepatitis. Bilirubin has peaked and is stable today, hopefully it goes down, other liver enzymes trending down. Continue to follow labs daily. #. Likely APD #. Low Hb Patient complaining of bloating/pain sensation Admitting lipase normal, neg for appendicitis. Patient started on pantoprazole, Tums scheduled for 3 days and then twice a day and then evaluate. Pt is being given oxycodone when she states tums helps her with her belly pain. Decreased freq on oxycodone, advise to use it sparingly. Could be contributed by ongoing alcoholic hepatitis versus APD on the background of chronic alcohol abuse Continue to monitor Patient's hemoglobin baseline around 12, hemoglobin dropped to 10, FOBT sent --> not collected yet, patient reports moving bowels though. Not sure if the current drop is actual drop or due to hemodilution. Hemoglobin is stable around 10. Continue to monitor. #. Other Chronic medical conditions: ADD, anxiety, asthma Continue home medications for chronic conditions as appropriate. DVT Prophylaxis: SCDs for now, trend INR, Heparin s.q., monitor Hb daily. Code Status: full code 10/04: Had conversation with patient's mother at bedside, updated about patient's current status and the risks of her going into withdrawal or possibly withdrawal seizure between day 2 and 4 of her last drink of alcohol. Reiterated that she needs to completely quit drinking going forward. Patient's mother asked if there is any services/support system for helping her quitting drinking she would like to explore with casey saw operator. 10/05: Patient's mother Sayra was called and given an update over the phone. She had questions about her bilirubin level and her rehab and her abstinence from alcohol. I explained a little bit on pathophysiology of bilirubin as she asked about it. We discussed about options on alc rehab and f/u with [facility], Sayra would like pt to go to rehab but Pt is refusing rehab. She is really worried about her going back to drinking which I agree as she has h/o of relapsing in the past. All of her questions were answered, Sayra voiced understanding and was agreeable to the plan of care. Admission and Anticipated Discharge Date Admission Date: October 03, 2021 Subjective Patient lying in bed, on room air, NAD, no new acute events overnight. Patient reports eating and moving bowels okay. Patient reports ongoing bloating sensation in her belly not actually relieved with oxycodone but she has been taking oxycodone more frequently than expected, discussed with the patient that the dose will be decreased from today. We will increase her frequency of Tums. Patient states relief of bloating sensation with Tums. Patient denies fever/chills/chest pain/palpitations/increased belly pain/other review of symptoms. Physical Exam Physical Exam: GENERAL: Alert and oriented x3. NAD, on RA. yellowing of skin all over noted. HEENT: No pallor, +++ icterus. Pupils equal, round and reactive to light. Oral mucosa moist. NECK: No JVD, no neck masses. HEART: S1 and S2 heard. Regular rate and rhythm. No murmur, no gallop. RESPIRATORY SYSTEM: Normal AP diameter. No accessory muscle use. No wheezing, no crackles. ABDOMEN: Soft, bowel sounds present, no rebound tender, distension +; no tenderness could be elicited (pt reports pain/bloating) CENTRAL NERVOUS SYSTEM: No facial droop. Speech is clear. Obeys simple commands. Moves extremities. EXTREMITIES: No edema, no erythema seen. Results & Data Results & Data ([facility]) Vital Signs (Past 12 Hours) Vital Signs Temp Pulse Pulse Resp BP Pulse Ox Pulse Ox 10/06/21 11:25 36.4 C L 97 H 18 112/73 97 10/06/21 09:00 94 10/06/21 07:49 108 H 15 97 10/06/21 07:48 102 H 10/06/21 07:16 36.7 C 99 H 19 97/64 L 94 10/06/21 03:00 37.1 C 103 H 18 102/62 95 (1) Alcoholic hepatitis Ascites presence: unspecified Qualified Code(s): K70.10 - Alcoholic hepatitis without ascites
[2021-10-06] MEDS: CALCIUM CARBONATE 500 MG CHEWABLE TAB PO SCH ×2 (16:03→20:35)
[2021-10-06] MEDS: LORazepam 1 MG TAB PO PRN ×2 (17:01→23:54)
[2021-10-06] MEDS: HEPARIN SOD 5,000 UNIT/0.5 ML VIAL SQ SCH (20:32)
[2021-10-06] MEDS: busPIRone 15 MG TAB PO SCH (20:33)
[2021-10-06] MEDS: MONTELUKAST SODIUM 10 MG TABLET PO SCH (20:34)
[2021-10-06] MEDS ORDERED: busPIRone 5 MG TAB PO SCH (21:00)
[2021-10-07] MEDS: CALCIUM CARBONATE 500 MG CHEWABLE TAB PO SCH ×3 (05:59→21:14)
[2021-10-07] MEDS ORDERED: GABAPENTIN 600 MG TAB PO SCH ×2 (06:00)
[2021-10-07] MEDS: LORazepam 1 MG TAB PO PRN ×4 (06:06→18:21)
[2021-10-07] MEDS ORDERED: LORazepam 2 MG/4 ML VIAL ONE (07:53)
--- NOTE | 2021-10-07 08:19 | 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 Note ---
Date of Service: October 07, 2021 Pt was trying to leave AMA in the morning and I was paged by the RN Xin. Upon Exam pt seemed anxious, wanted to smoke cigarettes, and her hands were s haking/tremors present. Other exams were WNL at the bedside exam. She was already dressed. Counselled that she needs further evaluation and it is crtical time for withdrawing, patient agreed at the moment. Given a po dose of ativan. Pt requested that her mother not be given any updates going forward. RN also aware of it.
[2021-10-07] MEDS: buPROPion XL 300 MG TABCR PO SCH (08:32)
[2021-10-07] MEDS: AZELASTINE HCL 0.1% NASAL 200 SPRAYS/27,400 MCG BTL SCH ×2 (08:33→21:08)
[2021-10-07] MEDS: FOLIC ACID 1 MG TAB PO SCH (08:33)
[2021-10-07] MEDS: PANTOprazole 40 MG TAB PO SCH ×2 (08:33→21:10)
[2021-10-07] MEDS: HEPARIN SOD 5,000 UNIT/0.5 ML VIAL SQ SCH ×2 (08:33→21:09)
[2021-10-07] MEDS: LORATADINE 10 MG TAB PO SCH (08:33)
[2021-10-07] MEDS: busPIRone 15 MG TAB PO SCH ×3 (08:33→21:08)
[2021-10-07] MEDS: FLUTICASONE PROPIONATE NA SPR 16 GM BTL SCH (08:33)
[2021-10-07] MEDS: THIAMINE HCL 100 MG TAB PO SCH (08:33)
[2021-10-07] MEDS: FLUTICASONE/VILANTEROL 200/25MCG 14 PUFFS/INHALER INH SCH (08:34)
[2021-10-07] MEDS: AMPHETAMINE ASP/SULF/DEXTRAMPH 5 MG TAB PO SCH ×2 (08:37→11:48)
[2021-10-07 09:02] LABS: Hematocrit (blood only) 32.5 % (37-47); Hemoglobin 10.3 g/dL (12.0-16.0); Mean Corpuscular Hemoglobin 35.6 pg (25-34); Mean Corpuscular Hgb Conc 31.7 g/dL (32-36); Mean Corpuscular Volume 112.5 fL (80-100); Mean Platelet Volume 10.4 fL (7.4-10.4); Nucleated RBC # (auto) 0.05 K/uL (0-0); Nucleated RBC % (auto) 0.4 %; Platelet Count 164 K/uL (130-400); RDW Coefficient of Variation 19.3 % (11.5-14.5); RDW Standard Deviation 74.9 fL (36.4-46.3); Red Blood Count 2.89 M/uL (4.2-5.4); White Blood Count 13.69 K/uL (4.8-10.8)
[2021-10-07 09:10] LABS: INR 1.4 (0.9-1.1); Prothrombin Time 13.6 Seconds (9.0-12.0)
[2021-10-07 09:54] LABS: Alanine Aminotransferase 28 U/L (7-52); Albumin Globulin Ratio 1.1 (0.9-2); Albumin Level 2.8 gm/dl (3.4-5.0); Alkaline Phosphatase 198 U/L (34-104); Aspartate Aminotransferase 111 U/L (13-39); Bilirubin,Total 25.8 mg/dl (0.2-1.0); Globulin 2.6 gm/dl (2.5-4.0); Total Protein 5.4 gm/dl (6.0-8.3)
[2021-10-07 10:24] LABS: iSTAT Blood Urea Nitrogen < 3 mg/dl (7-18); iSTAT Chloride 103 mmol/L (101-112); iSTAT Glucose 83 mg/dl (70-99); iSTAT Potassium 3.6 mmol/L (3.3-5.0); iSTAT Sodium 135 mmol/L (135-144)
[2021-10-07 10:25] LABS: iSTAT Carbon Dioxide 22 mmol/L (24-31); iSTAT Creatinine 0.6 mg/dl (0.6-1.3); iSTAT Ionized Calcium 1.04 mmol/l (1.12-1.32)
[2021-10-07 10:26] LABS: iSTAT Hematocrit 37 % (37-47); iSTAT Hemoglobin 12.6 g/dl (12.0-16.0)
[2021-10-07] MEDS: oxyCODONE HCL IR 5 MG TAB (IMMEDIATE RELEASE) PO PRN (11:50)
[2021-10-07 14:49] LABS: Amphetamines+Metham, Urine Neg (Neg); Barbiturates, Urine Neg (Neg); Benzodiazepine, Urine Neg (Neg); Cocaine, Urine Neg (Neg); MDMA (Ecstacy), Urine Pos (Neg); Methadone, Urine Neg (Neg); Opiate, Urine Neg (Neg); Phencyclidine, Urine Neg (Neg)
--- NOTE | 2021-10-07 16:46 | Hospitalist Progress Note ---
Date of Service October 07, 2021 Assessment & Plan (1) Alcohol abuse with withdrawal: (2) Alcoholic hepatitis: Plan: 36 y/o female with a hx of EtOH abuse (drinks 6 small cans of 99% alcohol daily x last 2 years; drinking since last 10 years), pancreatitis, prior alcoholic hepatitis, asthma, depression, anxiety, ADHA and allergies presented to ED 10/03/21 with one week of flu-like symptoms that gradually worsened associated with yellowing of her skin. Patient also reports abdominal bloating and pain. Patient has been in and out of inpatient rehab and now wants to quit drinking. Pt denies setting up with AA. She is being managed for the following: #. Alcohol abuse #. Impending alcohol withdrawal Patient reports drinking since last 10 years, in and out of rehab with multiple relapses, has been drinking 6 small cans of 99% alcohol daily since last 2 years History of withdrawal symptoms previously - last drink was the night prior to arrival.Her last drink was 1 can of liquor as opposed to usual 6 cans. Noticed symptoms of withdrawal on the morning of arrival with nausea, shakiness. Patient advised on complete abstinence, is willing to quit alcohol. CM consulted. Patient is interested in [facility], CM working with it. Continue with folic acid and thiamine, continue with AWSS protocol. 10/06 d/w with psychiatry, no formal consult placed---> [facility] given she is on Adderall, recommends follow-up with her outpatient prescriber, patient is to be opiate free for 7 to 10 days to restart naltrexone. It can be started as an outpatient at [facility] as Patient is getting opiate while in the hospital Clinically patient developing fine tremors of both hands (new), likely impending withdrawal, patient tried to go AMA and upon counseling agreed to stay 1 more day. #. Alcoholic hepatitis Alcohol abuse as above Admitting imaging: ~ CXR: No acute findings ~ CTAP:No concerns for acute appendicitis upon second review, concerning for thick walled/partially contracted and enhanced gallbladder with suspicion of pericholecystic edema. Hepatomegaly with diffuse fatty infiltration. ~ Liver ultrasound:No evidence of acute cholecystitis but gallbladder wall thickening appreciated. Hepatic steatosis and hepatomegaly. ~ MRCP: No evidence of biliary obstruction. Contracted GB with GB wall thickening. No other acute findings. INR 1.4 at presentation with albumin 2.9 and elevation of ALT and AST and ALP and direct bilirubin of 6.7 Daily labs including INR, no ascites in imaging Alcohol abstinence, counselled multiple times. GI evaluated: low sod diet (2g), expect mild discomfort with alcoholic hepatitis. Follow-up with GI as an outpatient. Okay to discharge from GI POV. Bilirubin is uptrending, other liver enzymes trending down. Continue to follow labs daily. #. Likely APD #. Low Hb Patient complaining of bloating/pain sensation Admitting lipase normal, neg for appendicitis. Patient started on pantoprazole, Tums scheduled for 3 days and then twice a day and then evaluate. Pt is being given oxycodone when she states tums helps her with her belly pain. Decreased freq on oxycodone, advise to use it sparingly. Could be contributed by ongoing alcoholic hepatitis versus APD on the background of chronic alcohol abuse Continue to monitor Patient's hemoglobin baseline around 12, hemoglobin dropped to 10, FOBT sent --> not collected yet, patient reports moving bowels though. Not sure if the current drop is actual drop or due to hemodilution. Hemoglobin is stable around 10. Continue to monitor. #. Other Chronic medical conditions: ADD, anxiety, asthma Continue home medications for chronic conditions as appropriate. DVT Prophylaxis: SCDs for now, trend INR, Heparin s.q., monitor Hb daily or as needed. Code Status: full code 10/04: Had conversation with patient's mother at bedside, updated about patient's current status and the risks of her going into withdrawal or possibly withdrawal seizure between day 2 and 4 of her last drink of alcohol. Reiterated that she needs to completely quit drinking going forward. Patient's mother asked if there is any services/support system for helping her quitting drinking she would like to explore with director of casework. 10/05: Patient's mother Sayra was called and given an update over the phone. She had questions about her bilirubin level and her rehab and her abstinence from alcohol. I explained a little bit on pathophysiology of bilirubin as she asked about it. We discussed about options on alc rehab and f/u with [facility], Sayra would like pt to go to rehab but Pt is refusing rehab. She is really worried about her going back to drinking which I agree as she has h/o of relapsing in the past. All of her questions were answered, Sayra voiced understanding and was agreeable to the plan of care. 10/06 --> Pt asked not to update her mother, MARYANNE Lauren also aware. Disposition: Patient denying inpatient rehab, I strongly believe that she will benefit from inpatient EtOH rehab. Patient agreed to call and set up with [facility] as an outpatient. CM assisting with DC planning. DC uncertain at this point. Admission and Anticipated Discharge Date Admission Date: October 03, 2021 Subjective Patient was dressed up ready to go [facility], RN paged me and I saw the patient at bedside, patient having fine tremors of the hands, likely developing withdrawal, it is day 4 of her last drink. Patient stated that she wants to go, counseled her that she might develop and go into withdrawal and might be back into the emergency, she initially agreed to stay and then again snuck out 2 times per RN without letting anybody know. Patient agreed to stay finally today and stated that she will go tomorrow anyhow. Patient reports improvement in her belly pain, denies any fever/chills/chest pain/palpitations/other review of symptoms. Her bilirubin seems to be trending up. Patient was made aware that she cannot use naltrexone without consulting [facility] as she was using opiates while in the hospital. Physical Exam Physical Exam: GENERAL: Alert and oriented x3. NAD, on RA. yellowing of skin all over noted. HEENT: No pallor, +++ icterus. Pupils equal, round and reactive to light. Or al mucosa moist. NECK: No JVD, no neck masses. HEART: S1 and S2 heard. Regular rate and rhythm. No murmur, no gallop. RESPIRATORY SYSTEM: Normal AP diameter. No accessory muscle use. No wheezing, no crackles. ABDOMEN: Soft, bowel sounds present, no rebound tender, distension -; no tenderness could be elicited CENTRAL NERVOUS SYSTEM: No facial droop. Speech is clear. Obeys simple comman ds. Moves extremities. EXTREMITIES: No edema, no erythema seen. Fine tremors of the hand noted. Results & Data Results & Data ([facility]) Vital Signs (Past 12 Hours) Vital Signs Temp Pulse Pulse Resp BP Pulse Ox 10/07/21 15:54 36.6 C 101 H 20 129/72 95 10/07/21 12:07 37.1 C 102 H 20 113/69 89 L 10/07/21 08:00 37 C 115 H 20 124/82 94 10/07/21 07:15 104 H 10/07/21 05:57 36.8 C 102 H 18 97/66 L 95 (1) Alcoholic hepatitis Ascites presence: unspecified Qualified Code(s): K70.10 - Alcoholic hepatitis without ascites
[2021-10-07] MEDS ORDERED: LORazepam 2 MG/4 ML VIAL IV PRN (20:01)
[2021-10-07] MEDS ORDERED: LORazepam 3 MG/6 ML VIAL IV PRN (20:01)
[2021-10-07] MEDS ORDERED: ATIVAN IV ALCOHOL WITHDRAWL IV PRN (20:01)
[2021-10-07] MEDS ORDERED: ACETAMINOPHEN 10MG/ML PEDIATRIC DOSING IV STA (20:08)
[2021-10-07] MEDS ORDERED: ACETAMINOPHEN 65 ML IV ONE (20:45)
[2021-10-07] MEDS: LORazepam 1 MG/2 ML VIAL IV PRN (21:07)
[2021-10-07] MEDS: MONTELUKAST SODIUM 10 MG TABLET PO SCH (21:09)
[2021-10-08] MEDS: LORazepam 1 MG/2 ML VIAL IV PRN ×5 (01:00→15:40)
[2021-10-08] MEDS ORDERED: MULTI-VITAMIN INFUSION 10 ML, THIAMINE HCL 100 MG, FOLIC ACID 1 MG in SODIUM CHLORIDE 0... IV ONE (04:00)
[2021-10-08] MEDS: CALCIUM CARBONATE 500 MG CHEWABLE TAB PO SCH ×3 (06:40→21:28)
[2021-10-08 07:46] LABS: INR 1.3 (0.9-1.1); Prothrombin Time 13.2 Seconds (9.0-12.0)
[2021-10-08 08:16] LABS: Alanine Aminotransferase 25 U/L (7-52); Albumin Level 2.6 gm/dl (3.4-5.0); Alkaline Phosphatase 180 U/L (34-104); Aspartate Aminotransferase 107 U/L (13-39); Bilirubin,Total 25.2 mg/dl (0.2-1.0); Blood Urea Nitrogen 4 mg/dl (6-23); Calcium 7.7 mg/dl (8.5-10.1); Chloride 104 mmol/L (98-107); Globulin 2.5 gm/dl (2.5-4.0); Glucose 68 mg/dl (70-99(Fasting)); Potassium 3.5 mmol/L (3.5-5.1); Sodium 133 mmol/L (136-145); Total Protein 5.1 gm/dl (6.0-8.3)
[2021-10-08] MEDS: AZELASTINE HCL 0.1% NASAL 200 SPRAYS/27,400 MCG BTL SCH ×2 (08:43→21:29)
[2021-10-08] MEDS: buPROPion XL 300 MG TABCR PO SCH (08:43)
[2021-10-08] MEDS: THIAMINE HCL 100 MG TAB PO SCH (08:43)
[2021-10-08] MEDS: busPIRone 15 MG TAB PO SCH ×2 (08:43→14:38)
[2021-10-08] MEDS: FLUTICASONE PROPIONATE NA SPR 16 GM BTL SCH (08:43)
[2021-10-08] MEDS: PANTOprazole 40 MG TAB PO SCH ×2 (08:43→21:28)
[2021-10-08] MEDS: LORATADINE 10 MG TAB PO SCH (08:43)
[2021-10-08] MEDS: FOLIC ACID 1 MG TAB PO SCH (08:43)
[2021-10-08] MEDS: FLUTICASONE/VILANTEROL 200/25MCG 14 PUFFS/INHALER INH SCH (08:44)
[2021-10-08] MEDS: HEPARIN SOD 5,000 UNIT/0.5 ML VIAL SQ SCH ×2 (08:44→21:28)
[2021-10-08] MEDS: AMPHETAMINE ASP/SULF/DEXTRAMPH 5 MG TAB PO SCH ×2 (08:46→11:21)
[2021-10-08 09:02] LABS: Allen Test Pos (Pos); Base Excess ABG -2.7 mEq/L (-9-1.8); HCO3 ABG 20 mmol/L (19-24); PCO2 ABG 27 mmHg (35-46); PO2 ABG 80 mmHg (80-95); pH ABG 7.49 (7.35-7.45)
[2021-10-08 10:07] LABS: iSTAT Blood Urea Nitrogen < 3 mg/dl (7-18); iSTAT Carbon Dioxide 23 mmol/L (24-31); iSTAT Chloride 102 mmol/L (101-112); iSTAT Creatinine 0.5 mg/dl (0.6-1.3); iSTAT Glucose 77 mg/dl (70-99); iSTAT Hematocrit 29 % (37-47); iSTAT Hemoglobin 9.9 g/dl (12.0-16.0); iSTAT Ionized Calcium 1.06 mmol/l (1.12-1.32); iSTAT Potassium 3.2 mmol/L (3.3-5.0); iSTAT Sodium 138 mmol/L (135-144)
[2021-10-08] MEDS ORDERED: POTASSIUM CHLORIDE CRTAB 20 MEQ TABCR PO STA (11:41)
[2021-10-08] MEDS: oxyCODONE HCL IR 5 MG TAB (IMMEDIATE RELEASE) PO PRN (12:13)
--- NOTE | 2021-10-08 17:08 | Hospitalist Progress Note ---
Date of Service October 08, 2021 Assessment & Plan (1) Alcohol abuse with withdrawal: (2) Alcoholic hepatitis: Plan: 36 y/o female with a hx of EtOH abuse (drinks 6 small cans of 99% alcohol daily x last 2 years; drinking since last 10 years), pancreatitis, prior alcoholic hepatitis, asthma, depression, anxiety, ADHA and allergies presented to ED 10/03/21 with one week of flu-like symptoms that gradually worsened associated with yellowing of her skin. Patient also reports abdominal bloating and pain. Patient has been in and out of inpatient rehab and now wants to quit drinking. Pt denies setting up with AA. She is being managed for the following: #. Alcohol abuse #. Impending alcohol withdrawal Patient reports drinking since last 10 years, in and out of rehab with multiple relapses, has been drinking 6 small cans of 99% alcohol daily since last 2 years History of withdrawal symptoms previously - last drink was the night prior to arrival.Her last drink was 1 can of liquor as opposed to usual 6 cans. Noticed symptoms of withdrawal on the morning of arrival with nausea, shakiness. Patient advised on complete abstinence, is willing to quit alcohol. CM consulted. Patient is interested in [facility], CM working with it. Continue with folic acid and thiamine, continue with AWSS protocol. 10/06 d/w with psychiatry, no formal consult placed---> [facility] would be better given she is on Adderall, recommends follow-up with her outpatient prescriber, patient is to be opiate free for 7 to 10 days to restart naltrexone. It can be started as an outpatient at [facility] as Patient is getting opiate while in the hospital Clinically patient has fine tremors of both hands, needing IV Ativan, hemodynamically stable, no SI/HI ideation, patient counseled multiple times during multiple visits today about the plan of care and has not expressed the intent of leaving AMA today to me. I #. Alcoholic hepatitis Alcohol abuse as above Admitting imaging: ~ CXR: No acute findings ~ CTAP:No concerns for acute appendicitis upon second review, concerning for thick walled/partially contracted and enhanced gallbladder with suspicion of pericholecystic edema. Hepatomegaly with diffuse fatty infiltration. ~ Liver ultrasound:No evidence of acute cholecystitis but gallbladder wall thickening appreciated. Hepatic steatosis and hepatomegaly. ~ MRCP: No evidence of biliary obstruction. Contracted GB with GB wall thickening. No other acute findings. INR 1.4 at presentation with albumin 2.9 and elevation of ALT and AST and ALP and direct bilirubin of 6.7 Daily labs including INR, no ascites in imaging Alcohol abstinence, counselled multiple times. GI evaluated: low sod diet (2g), expect mild discomfort with alcoholic hepatitis. Follow-up with GI as an outpatient. Okay to discharge from GI POV. Bilirubin is stable around 25, other liver enzymes trending down. Continue to follow labs daily. #. Likely APD #. Low Hb Patient complaining of bloating/pain sensation Admitting lipase normal, neg for appendicitis. Patient started on pantoprazole, Tums scheduled for 3 days and then twice a day and then evaluate. Decreased freq on oxycodone, advise to use it sparingly. Could be contributed by ongoing alcoholic hepatitis versus APD on the background of chronic alcohol abuse Continue to monitor Patient's hemoglobin baseline around 12, hemoglobin dropped to 10, FOBT sent --> not collected yet, patient reports moving bowels though. Not sure if the current drop is actual drop or due to hemodilution. Hemoglobin is stable around 10. Continue to monitor. #. Other Chronic medical conditions: ADD, anxiety, asthma Continue home medications for chronic conditions as appropriate. DVT Prophylaxis: SCDs for now, trend INR, Heparin s.q., monitor Hb daily or as needed. Code Status: full code 10/04: Had conversation with patient's mother at bedside, updated about patient's current status and the risks of her going into withdrawal or possibly withdrawal seizure between day 2 and 4 of her last drink of alcohol. Reiterated that she needs to completely quit drinking going forward. Patient's mother asked if there is any services/support system for helping her quitting drinking she would like to explore with pillowcase maker. 10/05: Patient's mother Sayra was called and given an update over the phone. She had questions about her bilirubin level and her rehab and her abstinence from alcohol. I explained a little bit on pathophysiology of bilirubin as she asked about it. We discussed about options on alc rehab and f/u with [facility], Sayra would like pt to go to rehab but Pt is refusing rehab. She is really worried about her going back to drinking which I agree as she has h/o of relapsing in the past. All of her questions were answered, Sayra voiced understanding and was agreeable to the plan of care. 10/06 --> Pt asked not to update her mother, MARYANNE Lauren also aware. Disposition: Patient denying inpatient rehab, I strongly believe that she will benefit from inpatient EtOH rehab. Patient agreed to call and set up with [facility] as an outpatient. CM assisting with DC planning. DC uncertain at this point. Admission and Anticipated Discharge Date Admission Date: October 03, 2021 Subjective Patient was lying in bed, on room air, NAD, looking more lethargic today. Patient is still AOx3 and is not SI/HI. Patient denies any acute events overnight. Patient reports ongoing right side of the belly pain which has improved quite a bit by now. Patient denies any discomfort or pain elsewhere/fever chills/chest pain or palpitations/nausea or vomiting. Physical Exam Physical Exam: GENERAL: Alert and oriented x3. Looks lethargic, NAD, on RA. yellowing of skin all over noted. HEENT: No pallor, +++ icterus. Pupils equal, round and reactive to light. Oral mucosa moist. NECK: No JVD, no neck masses. HEART: S1 and S2 heard. Regular rate and rhythm. No murmur, no gallop. RESPIRATORY SYSTEM: Normal AP diameter. No accessory muscle use. No wheezing, no crackles. ABDOMEN: Soft, bowel sounds present, no rebound tender, distension -; no tenderness could be elicited CENTRAL NERVOUS SYSTEM: No facial droop. Speech is clear. Obeys simple commands. Moves extremities. EXTREMITIES: No edema, no erythema seen. Fine tremors of the hand noted. Results & Data Results & Data ([facility]) Vital Signs (Past 12 Hours) Vital Signs Temp Pulse Resp BP Pulse Ox 10/08/21 15:00 37.0 C 100 H 20 110/76 92 10/08/21 11:13 37.0 C 99 H 16 98/63 L 92 10/08/21 07:43 36.8 C 98 H 48 H 103/68 98 10/08/21 06:35 36.6 C 97 H 17 102/67 93 (1) Alcoholic hepatitis Ascites presence: unspecified Qualified Code(s): K70.10 - Alcoholic hepatitis without ascites
[2021-10-08] MEDS ORDERED: oxyCODONE HCL IR 5 MG TAB (IMMEDIATE RELEASE) PO STA (17:33)
[2021-10-08] MEDS: busPIRone 5 MG TAB PO SCH (21:28)
[2021-10-08] MEDS: MONTELUKAST SODIUM 10 MG TABLET PO SCH (21:28)
[2021-10-09] MEDS: CALCIUM CARBONATE 500 MG CHEWABLE TAB PO SCH ×2 (05:53→16:00)
[2021-10-09 07:17] LABS: Mean Corpuscular Hemoglobin 35.7 pg (25-34); Mean Corpuscular Hgb Conc 31.3 g/dL (32-36); Mean Corpuscular Volume 114.3 fL (80-100); Nucleated RBC # (auto) 0.07 K/uL (0-0); Nucleated RBC % (auto) 0.5 %; Platelet Count 212 K/uL (130-400); RDW Coefficient of Variation 20.7 % (11.5-14.5); RDW Standard Deviation 84.4 fL (36.4-46.3); White Blood Count 13.71 K/uL (4.8-10.8)
[2021-10-09 07:28] LABS: INR 1.3 (0.9-1.1); Prothrombin Time 12.7 Seconds (9.0-12.0)
[2021-10-09 07:43] LABS: Alanine Aminotransferase 28 U/L (7-52); Albumin Level 2.6 gm/dl (3.4-5.0); Alkaline Phosphatase 171 U/L (34-104); Aspartate Aminotransferase 114 U/L (13-39); Bilirubin,Total 27.6 mg/dl (0.2-1.0); Globulin 2.5 gm/dl (2.5-4.0); Magnesium 2.2 mg/dl (1.7-2.4); Total Protein 5.1 gm/dl (6.0-8.3)
[2021-10-09] MEDS: FLUTICASONE PROPIONATE NA SPR 16 GM BTL SCH (08:00)
[2021-10-09] MEDS: AZELASTINE HCL 0.1% NASAL 200 SPRAYS/27,400 MCG BTL SCH (08:00)
[2021-10-09] MEDS: busPIRone 5 MG TAB PO SCH ×2 (08:01→16:00)
[2021-10-09] MEDS: PANTOprazole 40 MG TAB PO SCH (08:02)
[2021-10-09] MEDS: FLUTICASONE/VILANTEROL 200/25MCG 14 PUFFS/INHALER INH SCH (08:02)
[2021-10-09] MEDS: THIAMINE HCL 100 MG TAB PO SCH (08:04)
[2021-10-09] MEDS: FOLIC ACID 1 MG TAB PO SCH (08:04)
[2021-10-09] MEDS: HEPARIN SOD 5,000 UNIT/0.5 ML VIAL SQ SCH (08:04)
[2021-10-09] MEDS: buPROPion XL 300 MG TABCR PO SCH (08:05)
[2021-10-09] MEDS: LORATADINE 10 MG TAB PO SCH (08:06)
[2021-10-09] MEDS: AMPHETAMINE ASP/SULF/DEXTRAMPH 5 MG TAB PO SCH ×2 (08:11→12:12)
[2021-10-09] MEDS: oxyCODONE HCL IR 5 MG TAB (IMMEDIATE RELEASE) PO PRN (08:22)
[2021-10-09] MEDS ORDERED: oxyCODONE HCL IR 5 MG TAB (IMMEDIATE RELEASE) PO PRN (10:23)
--- NOTE | 2021-10-09 12:25 | Discharge Summary ---
Date of Service October 09, 2021 Admission HPI Per Admitting Provider This is a 36 y/o female with a hx of EtOH abuse, pancreatitis, prior alcoholic hepatitis, asthma, depression, anxiety, ADHA and allergies who presents to the ED today with one week of flu-like symptoms that are gradually worsening. Patient reports a longstanding history of alcoholism, requiring hospitalization x 2 weeks in December 2018 in [place] for alcohol hepatitis. Patient reports going to inpatient rehab following that hospitalization and had remained sober until 2019 during the COVID-19 pandemic. Patient reports another inpatient rehab stay in July 2020, after which she was apparently sober until last fall. Most recently admitted in Jun 2021 for alcoholic hepatitis and pancreatitis. She reports abstaining from EtOH until last month when she started drinking again around the holidays. About a week ago, she developed flu-like symptoms with dry cough, mild sore throat, runny nose, abdominal discomfort, nausea with vomiting in the mornings. She denies hematemesis. She also noted yellowing of her eyes around the same time but denies dark urine. She has had chills and sweats but no documented fevers. Abdomen has been bloated with associated discomfort but describes pain in abdomen only with coughing. Denies melena, hematochezia, or diarrhea. Admission Exam Per Admitting Provider Constitutional: well developed and well nourished; no acute distress Eyes: + scleral abnormality (icteric) Neck: trachea midline Respiratory: no respiratory distress and no labored breathing Auscultation: lungs clear to auscultation bilaterally; no rales, no rhonchi and no wheezes Cardiovascular: Rate/Rhythm: regular rhythm and + tachycardic Heart Sounds: no gallop, no murmur and no cardiac rub Vessels: dorsalis pedis pulses present and radial pulses present Gastrointestinal (Abdomen): Inspection/Auscultation: + abdomen distended and normal bowel sounds Percussion/Palpation: abdomen nontender Musculoskeletal: Head/Neck/Chest: normocephalic, head atraumatic and neck supple Skin: + jaundice Neurologic: moves all extremities; no focal motor deficits and not confused Psychiatric: Orientation: alert and oriented x 3 Affect: + flat affect Principal Diagnosis Alcohol abuse Alcoholic hepatitis Alcohol withdrawal Discharge Exam Constitutional + well hydrated and + obese; no acute distress Icteric Eyes sclerae not anicteric ENMT external ear and nose normal, oropharynx normal Respiratory normal respiratory effort, lungs clear to auscultation Cardiovascular RRR S1 S2 Gastrointestinal (Abdomen) normal bowel sounds, soft, nontender, no hepatosplenomegaly Musculoskeletal no cyanosis or clubbing, extremities motor strength 5/5 Neurologic PERRL, EOMI, accommodation nl, no face palsy, no dysarthria Psychiatric A+Ox3, euthymic affect Discharge Data Allergies Allergy/AdvReac Type Severity Reaction Status Date / Time banana Allergy Intermediate RASH, Verified 08/13/21 15:11 THROAT SLIGHTLY SWOLLEN Penicillins Allergy Unknown HAPPENED Verified 08/13/21 15:11 A CHILD Consultations 10/03/21 09:06 ED Decision to Admit Stat 10/03/21 09:58 Consult Gastroenterology Routine 10/03/21 11:17 Consult General Surgery Stat Ordered Studies 10/03/21 09:56 CT abd pelvis IV con only Stat 10/03/21 11:51 US liver Stat 10/03/21 12:49 MR MRCP Stat Hospital Course (1) Alcohol abuse with withdrawal: (2) Alcoholic hepatitis: 36 y/o female with a hx of EtOH abuse (drinks 6 small cans of 99% alcohol daily x last 2 years; drinking since last 10 years), pancreatitis, prior alcoholic hepatitis, asthma, depression, anxiety, ADHA and allergies presented to ED 10/03/21 with one week of flu-like symptoms that gradually worsened associated with yellowing of her skin. Patient also reports abdominal bloating and pain. Patient has been in and out of inpatient rehab and now wants to quit drinking. Pt denies setting up with AA. She is being managed for the following: #. Alcohol abuse #. Impending alcohol withdrawal Patient reports drinking since last 10 years, in and out of rehab with multiple relapses, has been drinking 6 small cans of 99% alcohol daily since last 2 years History of withdrawal symptoms previously - last drink was the night prior to arrival.Her last drink was 1 can of liquor as opposed to usual 6 cans. Noticed symptoms of withdrawal on the morning of arrival with nausea, lucio iness. Patient advised on complete abstinence, is willing to quit alcohol. CM consulted. Patient is interested in [facility], CM working with it. Continue with folic acid and thiamine, continue with AWSS protocol. Dr Rabago had discussed with psychiatry---> [facility] would be better given she is on Adderall, recommends follow-up with her outpatient prescriber, patient is to be opiate free for 7 to 10 days to restart naltrexone. It can be started as an outpatient at [facility] as Patient is getting opiate while in the hospital Counselled patient extensively about inpatient rehab She is not interested in inpatient rehab at this time had provided resources for outpatient rehab Patient needs to follow up with psychiatry outpatient #. Alcoholic hepatitis # Hyperbilirubinemia Alcohol abuse as above Admitting imaging: ~ CXR: No acute findings ~ CTAP:No concerns for acute appendicitis upon second review, concerning for thick walled/partially contracted and enhanced gallbladder with suspicion of pericholecystic edema. Hepatomegaly with diffuse fatty infiltration. ~ Liver ultrasound:No evidence of acute cholecystitis but gallbladder wall thickening appreciated. Hepatic steatosis and hepatomegaly. ~ MRCP: No evidence of biliary obstruction. Contracted GB with GB wall thickening. No other acute findings. INR 1.4 at presentation with albumin 2.9 and elevation of ALT and AST and ALP and direct bilirubin of 6.7 GI evaluated: low sod diet (2g), expect mild discomfort with alcoholic hepatitis. Follow-up with GI as an outpatient. Did not require steroid therapy #. Likely Acid Peptic disease #. Acute on chronic anemia Patient complains of bloating/pain sensation. Was started on pantoprazole and tums. Symptoms improved. Continue home omeprazole Admitting lipase normal, neg for appendicitis. Could be contributed by ongoing alcoholic hepatitis versus APD on the background of chronic alcohol abuse Patient's hemoglobin baseline around 12, hemoglobin dropped to 10, ?Dilutional Anemia is macrocytic, hence likely due to alcohol abuse #. Other Chronic medical conditions: ADD, anxiety, asthma Continue home medications for chronic conditions as appropriate. Patient's mother called and was concerned about discharge and wanted patient to go to inpatient rehab. I explained that patient currently declined inpatient rehab. She has capacity and understands risks of further alcohol use and liver dysfunction. Total Time Total Time Spent Total Time Spent (In Minutes): 50 Total Time Includes: Examination of the Patient, Discharge Planning, Medication Reconciliation and Other Discharge Plan Discharge Items Patient Disposition: Home - Self-Care Reason For Visit: ETOH WITHDRAWAL, ALCOHOLIC HEPATITIS Discharge Diagnosis: Alcohol abuse Alcoholic hepatitis Alcohol withdrawal Activity: Resume your previous activity Non-emergency contact: Primary Care Provider, Crew Supervisor and Psychiatrist Call non-emergency contact if: you have any medication questions and your symptoms worsen Follow-up/Referrals: Deanne Vazquez CRNP [Nurse Practitioner] - 10/29/21 10:00 am (Date & Time 10/29/2021 10:00 AM Provider TIAN Jarrett Department Gastroenterology, [facility] ) Zaina Bunch MD [Primary Care Provider] - 10/14/21 11:00 am (Date & Time 10/14/2021 11:00 AM Provider Zaina Bunch MD Department General Internal Medicine [facility] ) Diet: Heart Healthy and Low Sodium (2gm) Addtl Attending Provider Instructions: Ms Burr You came to the hospital complaining of not feeling well. You were evaluated and found to have alcoholic hepatitis. You were managed for alcohol abuse and alcohol withdrawal. You also had jaundice. You were evaluated by public health doctor and manage medically. You were offered inpatient rehab but you preferred outpatient rehab. Resources were provided. You are being discharged home. Please ensure follow-up with your primary care doctor and the public health doctor. It is very important that you follow-up with rehab resources provided Please do not start naltrexone until 7 days as discussed. You can use tylenol as needed for pain but do not use more than 2g or 2000mg in 24hours It was a pleasure taking care of you. Pending Studies at Discharge: No Stand-Alone Forms: My [facility], Smoking Cessation Medications and DC Order Prescriptions: New thiamine HCl (vitamin B1) 100 mg Tablet 100 mg PO QAM Qty: 30 RF: 0 folic acid 1 mg Tablet 1 mg PO QAM Qty: 30 RF: 0 Continued buspirone 5 mg Tablet 10 mg PO TID RF: 0 bupropion HCl [Wellbutrin XL] 300 mg Tablet Extended Release 24 Hr 300 mg PO QAM RF: 0 albuterol sulfate [ProAir HFA] 90 mcg/actuation Hfa Aerosol Inhaler 1 inh INHALATION QID PRN (Reason: Shortness Of Breath) RF: 0 omeprazole 20 mg Capsule,Delayed Release(Dr/Ec) 20 mg PO DAILY RF: 0 montelukast 10 mg Tablet 10 mg PO HS RF: 0 dextroamphetamine-amphetamine [Adderall] 5 mg Tablet 10 mg PO DAILY RF: 0 dextroamphetamine-amphetamine [Adderall] 5 mg Tablet 5 mg PO QDL RF: 0 loratadine 10 mg Tablet 10 mg PO DAILY RF: 0 budesonide-formoterol [Symbicort] 160-4.5 mcg/actuation Hfa Aerosol Inhaler 2 puff INHALATION BID RF: 0 Combivent Respimat 20-100 mcg/actuation Mist 1 puff INHALATION BID RF: 0 nicotine 14 mg/24 hr patch 24 hour 1 patch transdermal DAILY Qty: 28 RF: 0 multivitamin Tablet 1 tab PO DAILY RF: 0 azelastine 137 mcg (0.1 %) Aerosol,Doran 1 spray INTRANASAL BID RF: 0 fluticasone propionate 50 mcg/actuation Doran,Suspension 2 spray INTRANASAL DAILY RF: 0 Discharge Orders: Discharge Order (Routine); Ordered 10/09/21 Ordered By: Yin Palumbo Admission Data Admit Date/Time: 10/03/21 09:50 Attending Provider: Yin Palumbo I. Admit Provider: Barry Rabago Primary Care Provider: Zaina Bunch Other Providers: Lavon Salcido ; Barry Rabago ; Tomy Preciado Other Interventions: Discharge Summary Assessment (RN) Last Done: 10/09/21 14:27
[2021-10-11 06:25] LABS: MDA negative; MDEA negative; MDMA (Ecstasy) Urine, Confirm negative
== END 2021-10-09 16:14 | disposition home or self-care (01) | DRG 433 ==
LOC: ED 06:34 → SUATTDRO 09:50 → EDINP 09:50 → 2S 13:45

== ENCOUNTER 2021-10-10 07:52 | Inpatient (IN) ==
[2021-10-10] MEDS ORDERED: MULTI-VITAMIN INFUSION 10 ML, THIAMINE HCL 100 MG, FOLIC ACID 1 MG in SODIUM CHLORIDE 0... IV ONE (08:13)
--- NOTE | 2021-10-10 08:36 | XRay Report ---
XR chest 1V portable CLINICAL HISTORY: cough. COMPARISON STUDY: 10/03/2021 TECHNIQUE: 1 view of the chest FINDINGS: Single frontal view of the chest demonstrates the cardiomediastinal silhouette to be within normal li mits. There is a decreased inspiratory effort with elevation of the hemidiaphragms and crowding of th e bronchovascular markings at the lung bases and centrally. The lungs are clear of alveolar opacities . There is no evidence for pleural effusion. There is no evidence for vascular congestion. There is n o acute osseous pathology. IMPRESSION: Compared to the previous study, there is now a decreased inspiratory effort with otherwis e no acute chest disease. ACT 112: Negative or not required by law. Electronically signed by: Rashel Vann M.D. 10/10/2021 8:35 AM
--- NOTE | 2021-10-10 09:04 | Emergency Department Note ---
History of Present Illness General Chief complaint: Rectal Bleed Stated complaint: returning, stomach pain & rectal bleeding Time Seen by Provider: 10/10/21 08:00 Source: patient Mode of arrival: ambulatory Limitations: no limitations History of Present Illness Maximum Pain Intensity: 9 This patient is a 36-year-old female who presents to the emergency department accompanied by her mother for evaluation of rectal bleeding. Patient reports that she was admitted here in the past few days due to alcoholic hepatitis. She was discharged last night and states that today, she noticed some bright red blood on the toilet paper when she wiped after having a bowel movement. She has had some generalized abdominal pain which has been ongoing. She does report a cough which started after she was hospitalized. She states that she is not feeling any better. She denies drinking any alcohol since being discharged. S he rates her overall discomfort a 10. Home Medications Medication Instructions Recorded Confirmed Type albuterol sulfate 90 mcg/actuation 1 inh INHALATION QID PRN 06/24/20 10/10/21 History aerosol inhaler (ProAir HFA) bupropion HCl 300 mg 24 hr tablet, 300 mg PO QAM 06/24/20 10/10/21 History extended release (Wellbutrin XL) buspirone 5 mg tablet 10 mg PO TID 06/24/20 10/10/21 History budesonide-formoterol HFA 160 2 puff INHALATION BID 06/20/21 10/10/21 History mcg-4.5 mcg/actuation aerosol inhaler (Symbicort) dextroamphetamine-amphetamine 5 mg 5 mg PO QDL 06/20/21 10/10/21 History tablet (Adderall) dextroamphetamine-amphetamine 5 mg 10 mg PO DAILY 06/20/21 10/10/21 History tablet (Adderall) ipratropium 20 mcg-albuterol 100 1 puff INHALATION BID 06/20/21 10/10/21 History mcg/actuation mist for inhalation (Combivent Respimat) loratadine 10 mg tablet 10 mg PO DAILY 06/20/21 10/10/21 History montelukast 10 mg tablet 10 mg PO HS 06/20/21 10/10/21 History omeprazole 20 mg capsule,delayed 20 mg PO DAILY 06/20/21 10/10/21 History release nicotine 14 mg/24 hr daily 1 patch TRANSDERMAL DAILY #28 ea 06/25/21 10/10/21 Rx transdermal patch azelastine 137 mcg (0.1 %) nasal 1 spray INTRANASAL BID 10/03/21 10/10/21 History spray aerosol fluticasone propionate 50 2 spray INTRANASAL DAILY 10/03/21 10/10/21 History mcg/actuation nasal spray,suspension multivitamin 1 tab PO DAILY 10/03/21 10/10/21 History folic acid 1 mg tablet 1 mg PO QAM #30 tab 10/09/21 10/10/21 Rx thiamine HCl (vitamin B1) 100 mg 100 mg PO QAM #30 tab 10/09/21 10/10/21 Rx tablet Allergies Allergy/AdvReac Type Severity Reaction Status Date / Time banana Allergy Intermediate RASH, Verified 08/13/21 15:11 THROAT SLIGHTLY SWOLLEN Penicillins Allergy Unknown HAPPENED Verified 08/13/21 15:11 A CHILD Past Med/Surg History Medical History ADD (attention deficit disorder) Alcohol abuse Alcoholic hepatitis Alcoholic pancreatitis Allergic sinusitis Anxiety Asthma Depression Fatty liver Surgical History No significant past surgical history Family History Grandmother Breast cancer Grandfather Heart disease Social History Smoking Status: Current every day smoker Tobacco Type: Cigarettes Cigarettes Per Day: 4; Second Hand Exposure: Yes; Hx Alcohol Use: Yes Alcohol type: hard liquor Hx Substance Use: No Preferred Language: Angolan 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 Ability: Effective Band Splitter Required: No Beliefs That Will Affect Care: None marital status: Single Current Living Situation: Significant Other Current Living Situation Comment: Apartment current occupational status: employed How many Children do You have: 0 Feels Safe at Home: Yes Assistive Devices: None Review of Systems A total of 10 systems reviewed and were otherwise negative Physical Exam Vital Signs Vital Signs - 24 hr 10/10/21 07:57 Temperature 37 C Temperature Source Oral Pulse Rate 104 H Respiratory Rate 18 Blood Pressure 98/61 L Blood Pressure Mean 73 Pulse Oximetry 97 Oxygen Delivery Method Room Air Sepsis Recent Fever Within 48 Hours No Sepsis New/Unexplained Change in Mental Status No Sepsis Action Taken by Nursing No Action Required VITALS: Vitals are noted on the nurse's note and reviewed by myself. GENERAL: This is a 36-year-old female, in no acute distress, sitting in bed with mother at bedside. SKIN: Jaundice noted. HEAD: Normocephalic atraumatic. EARS: External auditory canals clear, tympanic membranes pearly lobo without erythema or effusion bilaterally. EYES: Pupils equal round and reactive to light and accommodation. Scleral icterus noted. MOUTH: Mucous membranes somewhat dry. NECK: Supple without nuchal rigidity. No lymphadenopathy. HEART: Regular rate and rhythm without murmurs gallops or rubs. LUNGS: Clear to auscultation bilaterally without wheezes, rales or rhonchi. ABDOMEN: Positive bowel sounds x 4. Soft, mild periumbilical tenderness to palpation. RECTAL: No external hemorrhoids noted. Hemoccult negative. NEURO: Patient was alert and oriented to person place and time. Course Administered Medications Acetaminophen (Acetaminophen 325 Mg Tab) 650 mg PO TID PRN PRN Reason: Pain Stop: 11/13/21 15:29 Last Admin: 10/14/21 15:58 Dose: 650 mg Documented by: [id number] Albuterol (Albuterol Hfa 8 Gm Inhaler) 2 puffs INH Q6H PRN PRN Reason: shortness of breath Stop: 11/11/21 12:59 Last Admin: 10/14/21 11:09 Dose: 2 puffs Documented by: [id number] Admin: 10/13/21 17:50 Dose: 2 puffs Documented by: [id number] Admin: 10/13/21 10:45 Dose: 2 puffs Documented by: [id number] Admin: 10/12/21 19:59 Dose: 2 puffs Documented by: [id number] Admin: 10/12/21 13:30 Dose: 2 puffs Documented by: [id number] Amphetamine/Dextroamphetamine (Amphetamine Asp/Sulf/Dextramph 5 Mg Tab) 5 mg PO QDL JUAN Stop: 10/25/21 11:29 Last Admin: 10/16/21 12:40 Dose: 5 mg Documented by: [id number] Admin: 10/15/21 12:48 Dose: 5 mg Documented by: [id number] Admin: 10/14/21 12:03 Dose: 5 mg Documented by: [id number] Admin: 10/13/21 12:33 Dose: 5 mg Documented by: [id number] Admin: 10/12/21 11:42 Dose: 5 mg Documented by: [id number] Admin: 10/11/21 13:00 Dose: 5 mg Documented by: [id number] Amphetamine/Dextroamphetamine (Amphetamine Asp/Sulf/Dextramph 5 Mg Tab) 10 mg PO Q24H JUAN Stop: 10/29/21 07:29 Last Admin: 10/16/21 08:36 Dose: 10 mg Documented by: [id number] Admin: 10/15/21 08:24 Dose: 10 mg Documented by: [id number] Azelastine HCl (Azelastine Hcl 0.1% Nasal 200 Sprays/27,400 Mcg Btl) 1 sprays NA BID JUAN Stop: 11/09/21 20:59 Last Admin: 10/16/21 08:38 Dose: 1 sprays Documented by: [id number] Admin: 10/15/21 20:11 Dose: 1 sprays Documented by: [id number] Admin: 10/15/21 08:15 Dose: 1 sprays Documented by: [id number] Admin: 10/14/21 20:05 Dose: 1 sprays Documented by: [id number] Admin: 10/14/21 08:58 Dose: 1 sprays Documented by: [id number] Admin: 10/13/21 20:38 Dose: 1 sprays Documented by: [id number] Admin: 10/13/21 08:07 Dose: Not Given Documented by: [id number] Admin: 10/12/21 20:14 Dose: 1 sprays Documented by: [id number] Admin: 10/12/21 08:37 Dose: Not Given Documented by: [id number] Admin: 10/11/21 20:49 Dose: Not Given Documented by: [id number] Admin: 10/11/21 09:26 Dose: 1 sprays Documented by: [id number] Admin: 10/10/21 20:15 Dose: 1 sprays Documented by: [id number] Dextromethorphan Polymer Complex (Dextromethorphan Polymr Complx 30 Mg/5 Ml Udp) 30 mg PO Q6H PRN PRN Reason: Cough Stop: 11/09/21 15:17 Last Admin: 10/16/21 08:40 Dose: 30 mg Documented by: [id number] Admin: 10/14/21 20:06 Dose: 30 mg Documented by: [id number] Admin: 10/13/21 23:06 Dose: 30 mg Documented by: [id number] Admin: 10/12/21 21:53 Dose: 30 mg Documented by: [id number] Admin: 10/12/21 01:21 Dose: 30 mg Documented by: [id number] Admin: 10/11/21 19:41 Dose: 30 mg Documented by: [id number] Admin: 10/11/21 16:32 Dose: 30 mg Documented by: [id number] Admin: 10/11/21 04:38 Dose: 30 mg Documented by: [id number] Fluticasone Propionate (Fluticasone Propionate Na Spr 16 Gm Btl) 2 sprays NA DAILY JUAN Stop: 11/10/21 08:59 Last Admin: 10/16/21 08:38 Dose: 2 sprays Documented by: [id number] Admin: 10/15/21 08:15 Dose: 2 sprays Documented by: [id number] Admin: 10/14/21 08:58 Dose: 2 sprays Documented by: [id number] Admin: 10/13/21 08:06 Dose: Not Given Documented by: [id number] Admin: 10/12/21 07:55 Dose: 2 sprays Documented by: [id number] Admin: 10/11/21 09:27 Dose: 2 sprays Documented by: [id number] Fluticasone/Vilanterol (Fluticasone/Vilanterol 200/25mcg 14 Puffs/Inhaler) 1 puffs INH HS JUAN Stop: 11/09/21 20:59 Last Admin: 10/15/21 20:11 Dose: 1 puffs Documented by: [id number] Admin: 10/14/21 20:06 Dose: 1 puffs Documented by: [id number] Admin: 10/13/21 20:38 Dose: 1 puffs Documented by: [id number] Admin: 10/12/21 19:24 Dose: 1 puffs Documented by: [id number] Admin: 10/11/21 19:50 Dose: 1 puffs Documented by: [id number] Admin: 10/10/21 20:14 Dose: 1 puffs Documented by: [id number] Guaifenesin (Guaifenesin 600 Mg Tabcr) 1,200 mg PO BID JUAN Stop: 11/12/21 10:59 Last Admin: 10/16/21 08:37 Dose: 1,200 mg Documented by: [id number] Admin: 10/15/21 20:11 Dose: 1,200 mg Documented by: [id number] Admin: 10/15/21 08:16 Dose: 1,200 mg Documented by: [id number] Admin: 10/14/21 20:06 Dose: 1,200 mg Documented by: [id number] Admin: 10/14/21 08:59 Dose: 1,200 mg Documented by: [id number] Admin: 10/13/21 20:40 Dose: 1,200 mg Documented by: [id number] Admin: 10/13/21 12:32 Dose: 1,200 mg Documented by: [id number] Thiamine HCl 100 mg/ Syringe 10 mls @ 2 mls/min IV QAM JUAN Stop: 11/09/21 15:17 Last Admin: 10/16/21 08:37 Dose: 2 mls/min Documented by: [id number] Admin: 10/15/21 08:18 Dose: 2 mls/min Documented by: [id number] Admin: 10/14/21 08:58 Dose: 2 mls/min Documented by: [id number] Admin: 10/13/21 08:03 Dose: 2 mls/min Documented by: [id number] Admin: 10/12/21 07:56 Dose: 2 mls/min Documented by: [id number] Admin: 10/11/21 08:55 Dose: 2 mls/min Documented by: [id number] Admin: 10/10/21 17:38 Dose: 2 mls/min Documented by: [id number] Folic Acid 1 mg/ Syringe 10 mls @ 5 mls/min IV QAM JUAN Stop: 11/09/21 15:17 Last Admin: 10/16/21 08:37 Dose: 5 mls/min Documented by: [id number] Admin: 10/15/21 08:16 Dose: 5 mls/min Documented by: [id number] Admin: 10/14/21 08:59 Dose: 5 mls/min Documented by: [id number] Admin: 10/13/21 08:03 Dose: 5 mls/min Documented by: [id number] Admin: 10/12/21 07:54 Dose: 5 mls/min Documented by: [id number] Admin: 10/11/21 08:55 Dose: 5 mls/min Documented by: [id number] Admin: 10/10/21 17:38 Dose: 5 mls/min Documented by: [id number] Pantoprazole Sodium 40 mg/ (Syringe) 10 mls @ 5 mls/min IV BID JUAN Stop: 11/09/21 20:59 Last Admin: 10/16/21 08:37 Dose: 5 mls/min Documented by: [id number] Admin: 10/15/21 20:12 Dose: 5 mls/min Documented by: [id number] Admin: 10/15/21 08:18 Dose: 5 mls/min Documented by: [id number] Admin: 10/14/21 20:06 Dose: 5 mls/min Documented by: [id number] Admin: 10/14/21 08:58 Dose: 5 mls/min Documented by: [id number] Admin: 10/13/21 20:40 Dose: 5 mls/min Documented by: [id number] Admin: 10/13/21 08:02 Dose: 5 mls/min Documented by: [id number] Admin: 10/12/21 19:23 Dose: 5 mls/min Documented by: [id number] Admin: 10/12/21 07:54 Dose: 5 mls/min Documented by: [id number] Admin: 10/11/21 19:51 Dose: 5 mls/min Documented by: [id number] Admin: 10/11/21 08:55 Dose: 5 mls/min Documented by: [id number] Admin: 10/10/21 20:28 Dose: 5 mls/min Documented by: [id number] Lidocaine (Lidocaine 5% 1 Patch) 1 patch TD QAM [facility] Stop: 11/13/21 10:44 Last Admin: 10/16/21 08:39 Dose: 1 patch Documented by: [id number] Admin: 10/15/21 08:17 Dose: 1 patch Documented by: [id number] Admin: 10/14/21 11:58 Dose: 1 patch Documented by: [id number] Loperamide HCl (Loperamide Hcl 2 Mg Cap) 2 mg PO TID PRN PRN Reason: Diarrhea Stop: 11/12/21 17:04 Last Admin: 10/14/21 20:06 Dose: 2 mg Documented by: [id number] Admin: 10/14/21 10:26 Dose: 2 mg Documented by: [id number] Admin: 10/13/21 21:37 Dose: 2 mg Documented by: [id number] Admin: 10/13/21 17:20 Dose: 2 mg Documented by: [id number] Loratadine (Loratadine 10 Mg Tab) 10 mg PO DAILY [facility] Stop: 11/10/21 08:59 Last Admin: 10/16/21 08:39 Dose: 10 mg Documented by: [id number] Admin: 10/15/21 08:17 Dose: 10 mg Documented by: [id number] Admin: 10/14/21 08:59 Dose: 10 mg Documented by: [id number] Admin: 10/13/21 08:04 Dose: 10 mg Documented by: [id number] Admin: 10/12/21 07:53 Dose: 10 mg Documented by: [id number] Admin: 10/11/21 09:26 Dose: 10 mg Documented by: [id number] Melatonin (Melatonin 3 Mg Tab) 3 mg PO HS PRN PRN Reason: Sleep Stop: 11/11/21 19:48 Last Admin: 10/15/21 20:31 Dose: 3 mg Documented by: [id number] Admin: 10/14/21 20:06 Dose: 3 mg Documented by: [id number] Admin: 10/13/21 20:40 Dose: 3 mg Documented by: [id number] Admin: 10/12/21 20:14 Dose: 3 mg Documented by: [id number] Menthol (Cough Drop (Sugar Free) Barbara 24 Barbara/1 Box) 1 barbara BUCCAL NOW PRN PRN Reason: Cough Stop: 11/11/21 08:05 Last Admin: 10/13/21 04:24 Dose: 1 barbara Documented by: [id number] Admin: 10/12/21 08:26 Dose: 1 barbara Documented by: [id number] Miscellaneous (Remove Lidoderm Patch) 1 ea N/A DAILY@2100 [facility] Stop: 11/13/21 20:59 Last Admin: 10/15/21 20:12 Dose: 1 ea Documented by: [id number] Admin: 10/14/21 20:07 Dose: 1 ea Documented by: [id number] Montelukast Sodium (Montelukast Sodium 10 Mg Tablet) 10 mg PO HS [facility] Stop: 11/09/21 20:59 Last Admin: 10/15/21 20:12 Dose: 10 mg Documented by: [id number] Admin: 10/14/21 20:06 Dose: 10 mg Documented by: [id number] Admin: 10/13/21 20:40 Dose: 10 mg Documented by: [id number] Admin: 10/12/21 19:24 Dose: 10 mg Documented by: [id number] Admin: 10/11/21 19:53 Dose: 10 mg Documented by: [id number] Admin: 10/10/21 20:31 Dose: 10 mg Documented by: [id number] Nicotine (Nicotine 14 Mg/24 Hr Patch) 14 mg TD DAILY [facility] Stop: 11/10/21 08:59 Last Admin: 10/16/21 08:39 Dose: 14 mg Documented by: [id number] Admin: 10/15/21 08:18 Dose: 14 mg Documented by: [id number] Admin: 10/14/21 08:59 Dose: 14 mg Documented by: [id number] Admin: 10/13/21 08:05 Dose: 14 mg Documented by: [id number] Admin: 10/12/21 07:54 Dose: 14 mg Documented by: [id number] Admin: 10/11/21 09:27 Dose: 14 mg Documented by: [id number] Simethicone (Simethicone 80 Mg Chew) 40 mg PO QID PRN PRN Reason: Bloating/Gas retention Stop: 11/12/21 14:35 Last Admin: 10/16/21 14:43 Dose: 40 mg Documented by: [id number] Discontinued Medications Amphetamine/Dextroamphetamine (Amphetamine Asp/Sulf/Dextramph 10 Mg Tab) 10 mg PO DAILY [facility] Stop: 10/25/21 08:59 Last Admin: 10/14/21 09:13 Dose: 10 mg Documented by: [id number] Admin: 10/13/21 10:20 Dose: 10 mg Documented by: [id number] Admin: 10/12/21 08:37 Dose: 10 mg Documented by: [id number] Admin: 10/11/21 10:00 Dose: 10 mg Documented by: [id number] Bupropion HCl (Bupropion Xl 300 Mg Tabcr) 300 mg PO QAM [facility] Stop: 11/10/21 08:59 Last Admin: 10/11/21 09:25 Dose: 300 mg Documented by: [id number] Bupropion HCl (Bupropion Xl 150 Mg Tabcr) 150 mg PO QAM [facility] Stop: 10/14/21 09:01 Last Admin: 10/14/21 08:59 Dose: 150 mg Documented by: [id number] Admin: 10/13/21 08:04 Dose: 150 mg Documented by: [id number] Admin: 10/12/21 07:53 Dose: 150 mg Documented by: [id number] Buspirone HCl (Buspirone 5 Mg Tab) 10 mg PO TID [facility] Stop: 11/09/21 15:17 Last Admin: 10/11/21 09:24 Dose: 10 mg Documented by: [id number] Admin: 10/10/21 20:15 Dose: 10 mg Documented by: [id number] Admin: 10/10/21 17:24 Dose: 10 mg Documented by: [id number] Buspirone HCl (Buspirone 5 Mg Tab) 5 mg PO TID [facility] Stop: 10/12/21 21:01 Last Admin: 10/12/21 19:23 Dose: 5 mg Documented by: [id number] Admin: 10/12/21 15:04 Dose: 5 mg Documented by: [id number] Admin: 10/12/21 07:52 Dose: 5 mg Documented by: [id number] Admin: 10/11/21 19:51 Dose: 5 mg Documented by: [id number] Admin: 10/11/21 15:18 Dose: 5 mg Documented by: [id number] Gabapentin (Gabapentin 1200mg Loading Dose) 1,200 mg PO TODAY@1315 ONE Stop: 10/10/21 13:16 Last Admin: 10/10/21 13:24 Dose: 1,200 mg Documented by: [id number] Gabapentin (Gabapentin 600mg Q6h Dose) 600 mg PO Q6H [facility] Stop: 10/11/21 01:01 Last Admin: 10/11/21 00:32 Dose: 600 mg Documented by: [id number] Admin: 10/10/21 20:15 Dose: 600 mg Documented by: [id number] Gabapentin (Gabapentin 600mg Q8h Dose) 600 mg PO Q8H [facility] Stop: 10/12/21 01:01 Last Admin: 10/11/21 09:24 Dose: 600 mg Documented by: [id number] Gabapentin (Gabapentin 600 Mg Tab) 600 mg PO TODAY@0600,2200 [facility] Stop: 10/11/21 06:01 Last Admin: 10/11/21 05:14 Dose: 600 mg Documented by: [id number] Admin: 10/10/21 22:35 Dose: 600 mg Documented by: [id number] Gabapentin (Gabapentin 600 Mg Tab) 600 mg PO Q8H [facility] Stop: 10/12/21 06:01 Last Admin: 10/12/21 05:41 Dose: 600 mg Documented by: [id number] Admin: 10/11/21 19:53 Dose: 600 mg Documented by: [id number] Admin: 10/11/21 15:18 Dose: 600 mg Documented by: [id number] Gabapentin (Gabapentin 600 Mg Tab) 600 mg PO Q12H JUAN Stop: 10/13/21 06:01 Last Admin: 10/13/21 06:22 Dose: 600 mg Documented by: [id number] Admin: 10/12/21 18:25 Dose: 600 mg Documented by: [id number] Gabapentin (Gabapentin 600 Mg Tab) 600 mg PO Q24H JUAN Stop: 10/14/21 06:01 Last Admin: 10/14/21 05:55 Dose: 600 mg Documented by: [id number] Guaifenesin (Guaifenesin Sugar Free 100 Mg/5 Ml Udc) 100 mg PO Q6H PRN PRN Reason: Cough Stop: 11/11/21 07:53 Last Admin: 10/13/21 04:25 Dose: 100 mg Documented by: [id number] Admin: 10/12/21 15:04 Dose: 100 mg Documented by: [id number] Admin: 10/12/21 08:26 Dose: 100 mg Documented by: [id number] Hydromorphone HCl (Hydromorphone Inj 0.5 Mg/0.5 Ml Syr) 0.5 mg IV NOW STA Stop: 10/10/21 20:37 Last Admin: 10/10/21 21:50 Dose: 0.5 mg Documented by: [id number] Multivitamins 10 ml/ Thiamine HCl 100 mg/ Folic Acid 1 mg/Sodium Chloride 1,011.2 mls @ 1,011.2 mls/hr IV .Q1H ONE Stop: 10/10/21 09:12 Last Infusion: 10/10/21 10:28 Dose: 0 mls/hr Documented by: [id number] Admin: 10/10/21 08:51 Dose: 1,011.2 mls/hr Documented by: [id number] Lorazepam (Ativan) 1 mg in 2 mls @ 2 mls/min IV NOW STA Stop: 10/10/21 09:55 Last Admin: 10/10/21 10:30 Dose: 2 mls/min Documented by: [id number] Dextrose/Sodium Chloride (D5w And Nss) 1,000 mls @ 125 mls/hr IV .Q8H JUAN Stop: 11/09/21 10:44 Last Infusion: 10/12/21 11:42 Dose: 0 mls/hr Documented by: [id number] Admin: 10/12/21 03:51 Dose: 125 mls/hr Documented by: [id number] Infusion: 10/12/21 03:40 Dose: 125 mls/hr Documented by: [id number] Admin: 10/11/21 19:49 Dose: Not Given Documented by: [id number] Admin: 10/11/21 19:40 Dose: 125 mls/hr Documented by: [id number] Infusion: 10/11/21 16:57 Dose: 0 mls/hr Documented by: [id number] Admin: 10/11/21 08:54 Dose: 125 mls/hr Documented by: [id number] Infusion: 10/11/21 08:53 Dose: 0 mls/hr Documented by: [id number] Admin: 10/10/21 21:50 Dose: 125 mls/hr Documented by: [id number] Infusion: 10/10/21 20:29 Dose: 0 mls/hr Documented by: [id number] Admin: 10/10/21 11:34 Dose: 125 mls/hr Documented by: [id number] Thiamine HCl 200 mg/ Sodium (Chloride) 52 mls @ 208 mls/hr IV NOW STA Stop: 10/10/21 10:45 Last Infusion: 10/10/21 12:15 Dose: 0 mls/hr Documented by: [id number] Admin: 10/10/21 11:33 Dose: 208 mls/hr Documented by: [id number] Lorazepam (Ativan) 1 mg in 2 mls @ 2 mls/min IV UD PRN; Protocol PRN Reason: EtOH Withdrawl AWSS Score 6,7 Stop: 11/09/21 15:17 Last Admin: 10/11/21 10:48 Dose: 2 mls/min Documented by: [id number] Admin: 10/10/21 20:13 Dose: 2 mls/min Documented by: [id number] Ceftriaxone Sodium 1,000 mg/ (Dextrose) 50 mls @ 100 mls/hr IV DAILY@1600 JUAN; Protocol Stop: 10/12/21 15:17 Last Infusion: 10/10/21 19:59 Dose: 0 mls/hr Documented by: [id number] Admin: 10/10/21 17:40 Dose: 100 mls/hr Documented by: [id number] Potassium Phosphate 21 mmol/ (Sodium Chloride) 507 mls @ 145 mls/hr IV ONE ONE Stop: 10/12/21 11:59 Last Infusion: 10/12/21 13:17 Dose: 0 mls/hr Documented by: [id number] Admin: 10/12/21 08:37 Dose: 145 mls/hr Documented by: [id number] Calcium Gluconate 1,000 mg/ (Dextrose) 60 mls @ 240 mls/hr IV NOW ONE Stop: 10/13/21 09:29 Last Infusion: 10/13/21 20:20 Dose: 0 mls/hr Documented by: [id number] Admin: 10/13/21 10:20 Dose: 240 mls/hr Documented by: [id number] Potassium Chloride (Potassium Chloride Crtab 20 Meq Tabcr) 40 meq PO TODAY@1032 JUAN Stop: 10/11/21 14:00 Last Admin: 10/11/21 13:00 Dose: 40 meq Documented by: [id number] Potassium Chloride (Potassium Chloride Crtab 20 Meq Tabcr) 40 meq PO NOW STA Stop: 10/12/21 07:55 Last Admin: 10/12/21 08:26 Dose: 40 meq Documented by: [id number] Potassium Chloride (Potassium Chloride Crtab 20 Meq Tabcr) 40 meq PO NOW STA Stop: 10/14/21 14:43 Last Admin: 10/14/21 15:18 Dose: 40 meq Documented by: [id number] Potassium Chloride (Potassium Chloride Crtab 20 Meq Tabcr) 60 meq PO NOW STA Stop: 10/15/21 11:13 Last Admin: 10/15/21 12:48 Dose: 60 meq Documented by: [id number] Potassium Chloride (Potassium Chloride Crtab 20 Meq Tabcr) 40 meq PO NOW ONE Stop: 10/16/21 12:18 Last Admin: 10/16/21 12:41 Dose: 40 meq Documented by: [id number] Potassium Phosphate (Pot Phosphate Monobasic W/ Sod Tab) 2 tab PO QID JUAN Stop: 10/11/21 21:01 Last Admin: 10/11/21 20:50 Dose: 2 tab Documented by: [id number] Admin: 10/11/21 16:33 Dose: 2 tab Documented by: [id number] Simethicone (Simethicone 80 Mg Chew) 40 mg PO TID PRN PRN Reason: Bloating/Gas retention Stop: 11/12/21 14:35 Last Admin: 10/16/21 08:37 Dose: 40 mg Documented by: [id number] Admin: 10/15/21 17:00 Dose: 40 mg Documented by: [id number] Admin: 10/15/21 08:27 Dose: 40 mg Documented by: [id number] Admin: 10/14/21 10:22 Dose: 40 mg Documented by: [id number] Admin: 10/13/21 23:07 Dose: 40 mg Documented by: [id number] Admin: 10/13/21 15:00 Dose: 40 mg Documented by: [id number] Medical Decision Making Differential Diagnosis Diverticulosis, AVM, coagulopathy, colitis, inflammatory bowel disease, malignancy, Ligia-Sandra tear, esophagitis, peptic ulcer disease, variceal bleed, gastritis, epistaxis, fissure, hemorrhoids, as well as other pathologies. Home Medications Current Medication List: was personally reviewed by me Laboratory Data Attestation: I reviewed the patient's lab results. Result diagrams: 10/16/21 09:41 10/16/21 09:41 Lab Results 10/10/21 10/10/21 10/10/21 Range/Units 08:50 08:50 08:50 WBC 14.92 H (4.8-10.8) K/uL RBC 2.94 L (4.2-5.4) M/uL Hgb 10.7 L (12.0-16.0) g/dL POC Hgb Hct 33.5 L (37-47) % POC Hct MCV 113.9 H (80-100) fL MCH 36.4 H (25-34) pg MCHC 31.9 L (32-36) g/dL RDW Std Deviation 85.9 H (36.4-46.3) fL RDW Coeff of Yasmine 20.6 H (11.5-14.5) % Plt Count 254 (130-400) K/uL MPV 11.0 H (7.4-10.4) fL Immature Gran % (Auto) 1.5 % Neut % (Auto) 75.9 % Lymph % (Auto) 10.9 % Hart[place] % (Auto) 10.9 % Eos % (Auto) 0.5 % Baso % (Auto) 0.3 % Neut # (Auto) 11.32 H (1.4-6.5) K/uL Lymph # (Auto) 1.62 (1.2-3.4) K/uL Hartley # (Auto) 1.63 H (0.11-0.59) K/uL Eos # (Auto) 0.07 (0-0.5) K/uL Baso # (Auto) 0.05 (0-0.2) K/uL Immature Gran # (Auto) 0.23 H (0.00-0.02) K/uL Absolute Nucleated RBC 0.03 H (0-0) K/uL Nucleated RBC % (auto) 0.2 % Polychromasia 1+ Anisocytosis Present [place] Bodies Occasional PT 12.7 H (9.0-12.0) Seconds INR 1.3 H (0.9-1.1) APTT 26.8 (21.0-31.0) Seconds PTT Ratio 1.0 POC Sodium (135-144) mmol/L Sodium Cancelled POC Potassium (3.3-5.0) mmol/L Potassium Cancelled POC Chloride (101-112) mmol/L Chloride Cancelled Carbon Dioxide Cancelled POC Total CO2 (24-31) mmol/L Anion Gap Cancelled POC Anion Gap (16-25) mmol/L POC BUN (7-18) mg/dl BUN Cancelled Creatinine Cancelled POC Creatinine (0.6-1.3) mg/dl Est Cr Clr Drug Dosing Cancelled Est GFR ( Amer) Cancelled Est GFR (Non-Af Amer) Cancelled BUN/Creatinine Ratio Cancelled Glucose Cancelled POC Glucose (other) (70-99) mg/dl Calcium Cancelled POC Ioniz Calcium Liz (1.12-1.32) mmol/l Total Bilirubin 35.7 H (0.2-1.0) mg/dl Direct Bilirubin Cancelled AST Cancelled ALT Cancelled Alkaline Phosphatase Cancelled Total Protein Cancelled Albumin Cancelled Lipase Cancelled Urine Color Urine Appearance (Clear) Urine pH (4.5-7.5) Ur Specific Richardson (1.000-1.030) Urine Protein (Negative) Urine Glucose (UA) (Negative) Urine Ketones (Negative) Urine Blood (Negative) Urine Nitrite (Negative) Urine Bilirubin (Negative) Urine Urobilinogen (Negative) Ur Leukocyte Esterase (Negative) Urine RBC (0-4) /hpf Urine WBC (0-5) /hpf Ur Epithelial Cells (0-5) /lpf Urine Bacteria (Negative) Ethyl Alcohol mg/dL (<10.0) mg/dl SARS-CoV-2, RNA, NAAT (NEGATIVE) 10/10/21 10/10/21 10/10/21 Range/Units 08:50 09:11 10:45 WBC (4.8-10.8) K/uL RBC (4.2-5.4) M/uL Hgb (12.0-16.0) g/dL POC Hgb TNP Hct (37-47) % POC Hct TNP MCV (80-100) fL MCH (25-34) pg MCHC (32-36) g/dL RDW Std Deviation (36.4-46.3) fL RDW Coeff of Yasmine (11.5-14.5) % Plt Count (130-400) K/uL MPV (7.4-10.4) fL Immature Gran % (Auto) % Neut % (Auto) % Lymph % (Auto) % [place] % (Auto) % Eos % (Auto) % Baso % (Auto) % Neut # (Auto) (1.4-6.5) K/uL Lymph # (Auto) (1.2-3.4) K/uL Hartley # (Auto) (0.11-0.59) K/uL Eos # (Auto) (0-0.5) K/uL Baso # (Auto) (0-0.2) K/uL Immature Gran # (Auto) (0.00-0.02) K/uL Absolute Nucleated RBC (0-0) K/uL Nucleated RBC % (auto) % Polychromasia Anisocytosis [place] Bodies PT (9.0-12.0) Seconds INR (0.9-1.1) APTT (21.0-31.0) Seconds PTT Ratio POC Sodium 137 (135-144) mmol/L Sodium POC Potassium 4.1 (3.3-5.0) mmol/L Potassium POC Chloride 107 (101-112) mmol/L Chloride Carbon Dioxide POC Total CO2 21 L (24-31) mmol/L Anion Gap POC Anion Gap 14.0 L (16-25) mmol/L POC BUN < 3 L (7-18) mg/dl BUN Creatinine POC Creatinine 0.6 (0.6-1.3) mg/dl Est Cr Clr Drug Dosing Est GFR ( Amer) Est GFR (Non-Af Amer) BUN/Creatinine Ratio Glucose POC Glucose (other) 58 L* (70-99) mg/dl Calcium POC Ioniz Calcium Liz 1.02 L (1.12-1.32) mmol/l Total Bilirubin (0.2-1.0) mg/dl Direct Bilirubin AST ALT Alkaline Phosphatase Total Protein Albumin Lipase Urine Color [place] Urine Appearance Clear (Clear) Urine pH (4.5-7.5) Ur Specific [place] 1.007 (1.000-1.030) Urine Protein (Negative) Urine Glucose (UA) (Negative) Urine Ketones (Negative) Urine Blood (Negative) Urine Nitrite (Negative) Urine Bilirubin (Negative) Urine Urobilinogen (Negative) Ur Leukocyte Esterase (Negative) Urine RBC 5-10 H (0-4) /hpf Urine WBC 0-5 (0-5) /hpf Ur Epithelial Cells >30 H (0-5) /lpf Urine Bacteria 1+ H (Negative) Ethyl Alcohol mg/dL (<10.0) mg/dl SARS-CoV-2, RNA, NAAT NEGATIVE (NEGATIVE) 10/10/21 Range/Units 12:22 WBC (4.8-10.8) K/uL RBC (4.2-5.4) M/uL Hgb (12.0-16.0) g/dL POC Hgb Hct (37-47) % POC Hct MCV (80-100) fL MCH (25-34) pg MCHC (32-36) g/dL RDW Std Deviation (36.4-46.3) fL RDW Coeff of Yasmine (11.5-14.5) % Plt Count (130-400) K/uL MPV (7.4-10.4) fL Immature Gran % (Auto) % Neut % (Auto) % Lymph % (Auto) % [place] % (Auto) % Eos % (Auto) % Baso % (Auto) % Neut # (Auto) (1.4-6.5) K/uL Lymph # (Auto) (1.2-3.4) K/uL [place] # (Auto) (0.11-0.59) K/uL Eos # (Auto) (0-0.5) K/uL Baso # (Auto) (0-0.2) K/uL Immature Gran # (Auto) (0.00-0.02) K/uL Absolute Nucleated RBC (0-0) K/uL Nucleated RBC % (auto) % Polychromasia Anisocytosis [place] Bodies PT (9.0-12.0) Seconds INR (0.9-1.1) APTT (21.0-31.0) Seconds PTT Ratio POC Sodium (135-144) mmol/L Sodium POC Potassium (3.3-5.0) mmol/L Potassium POC Chloride (101-112) mmol/L Chloride Carbon Dioxide POC Total CO2 (24-31) mmol/L Anion Gap POC Anion Gap (16-25) mmol/L POC BUN (7-18) mg/dl BUN Creatinine POC Creatinine (0.6-1.3) mg/dl Est Cr Clr Drug Dosing Est GFR ( Amer) Est GFR (Non-Af Amer) BUN/Creatinine Ratio Glucose POC Glucose (other) (70-99) mg/dl Calcium POC Ioniz Calcium Liz (1.12-1.32) mmol/l Total Bilirubin (0.2-1.0) mg/dl Direct Bilirubin AST ALT Alkaline Phosphatase Total Protein Albumin Lipase Urine Color Urine Appearance (Clear) Urine pH (4.5-7.5) Ur Specific [place] (1.000-1.030) Urine Protein (Negative) Urine Glucose (UA) (Negative) Urine Ketones (Negative) Urine Blood (Negative) Urine Nitrite (Negative) Urine Bilirubin (Negative) Urine Urobilinogen (Negative) Ur Leukocyte Esterase (Negative) Urine RBC (0-4) /hpf Urine WBC (0-5) /hpf Ur Epithelial Cells (0-5) /lpf Urine Bacteria (Negative) Ethyl Alcohol mg/dL < 10.0 (<10.0) mg/dl SARS-CoV-2, RNA, NAAT (NEGATIVE) Imaging Data Attestation: I personally reviewed and interpreted this imaging study as foll ows: Radiologist's Impression: Chest X-Ray 10/10/21 08:13 XR chest 1V portable CLINICAL HISTORY: cough. COMPARISON STUDY: 10/03/2021 TECHNIQUE: 1 view of the chest FINDINGS: Single frontal view of the chest demonstrates the cardiomediastinal silhouette to be within normal limits. There is a decreased inspiratory effort with elevation of the hemidiaphragms and crowding of the bronchovascular markings at the lung bases and centrally. The lungs are clear of alveolar opacities. There is no evidence for pleural effusion. There is no evidence for vascular congestion. There is no acute osseous pathology. IMPRESSION: Compared to the previous study, there is now a decreased inspiratory effort with otherwise no acute chest disease. ACT 112: Negative or not required by law. Electronically signed by: Rashel Vann M.D. 10/10/2021 8:35 AM MDM Narrative Continuous fbi field agent: Order was placed for continuous fbi field agent. Patient was placed on the fbi field agent. Patient was noted to be in sinus tachycardia at an initial rate of 100 bpm. The patient is a 36-year-old female who presents today complaining of rectal bleeding. No significant bleeding noted on exam, hemoglobin is stable and wi thin normal limits. Patient's bilirubin has increased from 27 on her most recent hospitalization to 35 today. I discussed with the patient and she is open to considering inpatient rehabilitation. I do feel patient would benefit from a further stay in the hospital. [facility] the patient for further care. Impression & Plan Alcoholic hepatitis, Hyperbilirubinemia Discharge Plan Visit Data Chief Complaint: Rectal Bleed Stated Complaint: returning, stomach pain & rectal bleeding ED Provider: Nii Ariza ED Midlevel Provider: Ananya Springer Discharge Problem: Alcoholic hepatitis, Hyperbilirubinemia Patient Disposition: Admitted As Inpatient Discharge Instructions Interventions: ED Discharge Assessment Last Done: 10/10/21 19:00
[2021-10-10 09:10] LABS: Basophils # (auto) 0.05 K/uL (0-0.2); Basophils % (auto) 0.3 %; Eosinophils # (auto) 0.07 K/uL (0-0.5); Eosinophils % (auto) 0.5 %; Hematocrit (blood only) 33.5 % (37-47); Hemoglobin 10.7 g/dL (12.0-16.0); Immature Granulocytes # (auto) 0.23 K/uL (0.00-0.02); Immature Granulocytes % (auto) 1.5 %; Lymphocytes # (auto) 1.62 K/uL (1.2-3.4); Lymphocytes % (auto) 10.9 %; Mean Corpuscular Hemoglobin 36.4 pg (25-34); Mean Corpuscular Hgb Conc 31.9 g/dL (32-36); Mean Corpuscular Volume 113.9 fL (80-100); Monocytes # (auto) 1.63 K/uL (0.11-0.59); Monocytes % (auto) 10.9 %; Neutrophils # (auto) 11.32 K/uL (1.4-6.5); Neutrophils % (auto) 75.9 %; Nucleated RBC # (auto) 0.03 K/uL (0-0); Nucleated RBC % (auto) 0.2 %; Platelet Count 254 K/uL (130-400); RDW Coefficient of Variation 20.6 % (11.5-14.5); RDW Standard Deviation 85.9 fL (36.4-46.3); Red Blood Count 2.94 M/uL (4.2-5.4); White Blood Count 14.92 K/uL (4.8-10.8)
[2021-10-10 09:25] LABS: INR 1.3 (0.9-1.1); Partial Thromboplastin Time 26.8 Seconds (21.0-31.0); Prothrombin Time 12.7 Seconds (9.0-12.0)
[2021-10-10 09:36] LABS: Anisocytosis Present; Howell-Jolly Bodies Occasional; Polychromasia 1+
[2021-10-10] MEDS ORDERED: LORazepam 1 MG/2 ML VIAL IV STA (09:54)
[2021-10-10 10:29] LABS: iSTAT Chloride 107 mmol/L (101-112); iSTAT Potassium 4.1 mmol/L (3.3-5.0); iSTAT Sodium 137 mmol/L (135-144)
[2021-10-10 10:30] LABS: iSTAT Blood Urea Nitrogen < 3 mg/dl (7-18); iSTAT Carbon Dioxide 21 mmol/L (24-31); iSTAT Creatinine 0.6 mg/dl (0.6-1.3); iSTAT Ionized Calcium 1.02 mmol/l (1.12-1.32)
[2021-10-10 10:32] LABS: iSTAT Glucose 58 mg/dl (70-99)
[2021-10-10] MEDS ORDERED: THIAMINE HCL 200 MG in SODIUM CHLORIDE 0.9% 50 ML IV STA (10:44)
[2021-10-10 11:31] LABS: Appearance Urine Clear (Clear); Color Urine Orange; Specific Gravity Urine 1.007 (1.000-1.030)
[2021-10-10 11:33] LABS: Bacteria Urine 1+ (Negative); Epithelial Cell Urine >30 /lpf (0-5); WBC Urine 0-5 /hpf (0-5)
[2021-10-10] MEDS: D5W AND NSS 1,000 ML IV SCH ×2 (11:34→21:50)
--- NOTE | 2021-10-10 12:17 | History & Physical Report ---
Date of Service October 10, 2021 Assessment & Plan (1) Rectal bleeding: Plan: Admit to PCU - H&H Q8H x 3 - IV PPI BID - Consult GI - spoke with [employer], will make pt NPO after midnight (2) Alcoholic hepatitis: Plan: Increasing bilirubin and worsening DF today - Consult GI for additional recommendations - initially not a candidate for steroids/Trental since DF <30 but now worsening. However, some concern for active GI bleed so will defer to specialist. - Starting empiric ceftriaxone due to recent fevers - await cultures (3) Alcohol abuse with withdrawal: Plan: - Daily labs - Consult GI as above - Gabapentin/Ativan withdrawal protocol - Continue IVF - Thiamine/Folic Acid daily (4) Asthma: (5) Anxiety: (6) ADD (attention deficit disorder): Plan: Continue home medications for chronic conditions as appropriate. Pt seen and reviewed with collaborating physician, Dr. Beaulieu. Plan of care discussed and as outlined above. DVT Prophylaxis: SCDs for now Code Status: full code Jessie Mane PA-C History of Present Illness Chief Complaint: Rectal Bleeding Primary Care Provider: Zaina Bunch MD This is a 36 y/o female with a hx of EtOH abuse, pancreatitis, prior alcoholic hepatitis, asthma, depression, anxiety, ADHD and allergies who presents to the ED today with small amount of rectal bleeding noted earlier today. Pt was admitted to this facility 10/03-10/09/21 with alcoholic hepatitis. Seen by GI but DF at the time <30 so not a candidate for steroids or Trental. Also seen by general surgery due to CT concerning for appendicitis with associated abdominal pain. However, pain improved and surgery reviewed CT and did not think findings were consistent with appendicitis so no surgical intervention required. Patient has a longstanding history of alcoholism, requiring hospitalization x 2 weeks in December 2018 in [place] for alcohol hepatitis. Patient reports going to inpatient rehab following that hospitalization and had remained sober until 2019 during the COVID-19 pandemic. Patient reports another inpatient rehab stay in July 2020, after which she was apparently sober until last fall. Most recently admitted in Jun 2021 for alcoholic hepatitis and pancreatitis. She reports abstaining from EtOH until last month when she started drinking again around the holidays. She stopped drinking the night prior to her hospitalization last week, and she denies drinking since she was discharged. She did have evidence of withdrawal during her recent admission. Inpatient rehab was discussed but pt declined. Pt was discharged yesterday but reports she has not felt well at home since discharge. Last night and this morning, she had a formed BM with bright red blood afterwards. Unable to quantify amount. No bleeding noted between bowel movements. Reports ongoing diffuse abdominal pain but worse on the right side. No significant nausea or vomiting. Noted a fever two days ago with associated chills. Cough x 2 days that is non-productive but comes in fits. Abdominal muscles also sore related to cough. She remains shaky and tremulous related to alcohol withdrawal. Allergies Allergy/AdvReac Type Severity Reaction Status Date / Time banana Allergy Intermediate RASH, Verified 08/13/21 15:11 THROAT SLIGHTLY SWOLLEN Penicillins Allergy Unknown HAPPENED Verified 08/13/21 15:11 A CHILD Home Medications Medication Instructions Recorded Confirmed Type albuterol sulfate 90 mcg/actuation 1 inh INHALATION QID PRN 06/24/20 10/10/21 History aerosol inhaler (ProAir HFA) bupropion HCl 300 mg 24 hr tablet, 300 mg PO QAM 06/24/20 10/10/21 History extended release (Wellbutrin XL) buspirone 5 mg tablet 10 mg PO TID 06/24/20 10/10/21 History budesonide-formoterol HFA 160 2 puff INHALATION BID 06/20/21 10/10/21 History mcg-4.5 mcg/actuation aerosol inhaler (Symbicort) dextroamphetamine-amphetamine 5 mg 5 mg PO QDL 06/20/21 10/10/21 History tablet (Adderall) dextroamphetamine-amphetamine 5 mg 10 mg PO DAILY 06/20/21 10/10/21 History tablet (Adderall) ipratropium 20 mcg-albuterol 100 1 puff INHALATION BID 06/20/21 10/10/21 History mcg/actuation mist for inhalation (Combivent Respimat) loratadine 10 mg tablet 10 mg PO DAILY 06/20/21 10/10/21 History montelukast 10 mg tablet 10 mg PO HS 06/20/21 10/10/21 History omeprazole 20 mg capsule,delayed 20 mg PO DAILY 06/20/21 10/10/21 History release nicotine 14 mg/24 hr daily 1 patch TRANSDERMAL DAILY #28 ea 06/25/21 10/10/21 Rx transdermal patch azelastine 137 mcg (0.1 %) nasal 1 spray INTRANASAL BID 10/03/21 10/10/21 History spray aerosol fluticasone propionate 50 2 spray INTRANASAL DAILY 10/03/21 10/10/21 History mcg/actuation nasal spray,suspension multivitamin 1 tab PO DAILY 10/03/21 10/10/21 History folic acid 1 mg tablet 1 mg PO QAM #30 tab 10/09/21 10/10/21 Rx thiamine HCl (vitamin B1) 100 mg 100 mg PO QAM #30 tab 10/09/21 10/10/21 Rx tablet Past Med/Surg History Medical History ADD (attention deficit disorder) Alcohol abuse Alcoholic hepatitis Alcoholic pancreatitis Allergic sinusitis Anxiety Asthma Depression Fatty liver Surgical History No significant past surgical history Family History Grandmother Breast cancer Grandfather Heart disease Social History Smoking Status: Current every day smoker Tobacco Type: Cigarettes Cigarettes Per Day: 4; Second Hand Exposure: Yes; Hx Alcohol Use: Yes Alcohol type: hard liquor Hx Substance Use: Yes Preferred Language: [place]serratian 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 Ability: Effective Skip Tender Required: No Beliefs That Will Affect Care: None marital status: Single Current Living Situation: Significant Other Current Living Situation Comment: Apartment current occupational status: employed How many Children do You have: 0 Feels Safe at Home: Yes Assistive Devices: None Review of Systems Review of Systems: All systems reviewed & are unremarkable except as noted in HPI & below Constitutional: + fever (last two days ago), + chills, + fatigue and + anorexia Ear, Nose, Mouth, Throat: + sore throat (related to coughin); no nasal discharge and no nasal obstruction Respiratory: + cough (non-produtive); no dyspnea, no hemoptysis and no wheezing Cardiovascular: no chest pain, no palpitations, no syncope and no edema Gastrointestinal: + abdominal pain, + bloating and + blood in stools; no nausea, no vomiting and no diarrhea/loose stools Genitourinary: + problem reported (dark urine); no dysuria, no urinary freque ncy and no hematuria Musculoskeletal: Muscle soreness related to coughing Integumentary: + yellowing of the skin Neurologic: + tremor(s) and + headache(s) Psychiatric: + anxiety Physical Exam Constitutional: well developed and well nourished; no acute distress Eyes: PERRL and EOM intact bilaterally scleral icterus Neck: trachea midline Respiratory: no respiratory distress and no labored breathing Auscultation: lungs clear to auscultation bilaterally; no rales, no rhonchi and no wheezes Cardiovascular: Rate/Rhythm: regular rhythm and + tachycardic Heart Sounds: no gallop, no murmur and no cardiac rub Vessels: dorsalis pedis pulses present and radial pulses present Extremities: no pedal edema Gastrointestinal (Abdomen): Inspection/Auscultation: + abdomen distended and normal bowel sounds Percussion/Palpation: + abdomen tender (diffuse), abdomen soft and + tympanic to percussion; no guarding Musculoskeletal: Head/Neck/Chest: normocephalic, head atraumatic and neck supple Skin: + jaundice Neurologic: moves all extremities; no focal motor deficits Motor/Sensory: + tremor (in bilateral hands) Psychiatric: A+Ox3, euthymic affect Results & Data Results & Data ([facility]) Vital Signs (Past 12 Hours) Vital Signs Temp Pulse Pulse Resp BP BP Pulse Ox 10/10/21 10:54 100 H 18 107/68 94 10/10/21 08:53 95 H 16 117/71 98 10/10/21 07:57 37 C 104 H 18 98/61 L 97 Laboratory Results Laboratory Results - last 24 hr 10/10/21 10/10/21 10/10/21 08:50 08:50 08:50 WBC 14.92 H RBC 2.94 L Hgb 10.7 L POC Hgb Hct 33.5 L POC Hct MCV 113.9 H MCH 36.4 H MCHC 31.9 L RDW Std Deviation 85.9 H RDW Coeff of Yasmine 20.6 H Plt Count 254 MPV 11.0 H Immature Gran % (Auto) 1.5 Neut % (Auto) 75.9 Lymph % (Auto) 10.9 [place] % (Auto) 10.9 Eos % (Auto) 0.5 Baso % (Auto) 0.3 Neut # (Auto) 11.32 H Lymph # (Auto) 1.62 [place] # (Auto) 1.63 H Eos # (Auto) 0.07 Baso # (Auto) 0.05 Immature Gran # (Auto) 0.23 H Absolute Nucleated RBC 0.03 H Nucleated RBC % (auto) 0.2 Polychromasia 1+ Anisocytosis Present [place] Bodies Occasional PT 12.7 H INR 1.3 H APTT 26.8 PTT Ratio 1.0 POC Sodium Sodium Cancelled POC Potassium Potassium Cancelled POC Chloride Chloride Cancelled Carbon Dioxide Cancelled POC Total CO2 Anion Gap Cancelled POC Anion Gap POC BUN BUN Cancelled Creatinine Cancelled POC Creatinine Est Cr Clr Drug Dosing Cancelled Est GFR ( Amer) Cancelled Est GFR (Non-Af Amer) Cancelled BUN/Creatinine Ratio Cancelled Glucose Cancelled POC Glucose (other) Calcium Cancelled POC Ioniz Calcium Liz Total Bilirubin 35.7 H Direct Bilirubin Cancelled AST Cancelled ALT Cancelled Alkaline Phosphatase Cancelled Total Protein Cancelled Albumin Cancelled Lipase Cancelled Urine Color Urine Appearance Urine pH Ur Specific [place] Urine Protein Urine Glucose (UA) Urine Ketones Urine Blood Urine Nitrite Urine Bilirubin Urine Urobilinogen Ur Leukocyte Esterase Urine RBC Urine WBC Ur Epithelial Cells Urine Bacteria SARS-CoV-2, RNA, NAAT 10/10/21 10/10/21 10/10/21 08:50 09:11 10:45 WBC RBC Hgb POC Hgb TNP Hct POC Hct TNP MCV MCH MCHC RDW Std Deviation RDW Coeff of Yasmine Plt Count MPV Immature Gran % (Auto) Neut % (Auto) Lymph % (Auto) [place] % (Auto) Eos % (Auto) Baso % (Auto) Neut # (Auto) Lymph # (Auto) [place] # (Auto) Eos # (Auto) Baso # (Auto) Immature Gran # (Auto) Absolute Nucleated RBC Nucleated RBC % (auto) Polychromasia Anisocytosis [place] Bodies PT INR APTT PTT Ratio POC Sodium 137 Sodium POC Potassium 4.1 Potassium POC Chloride 107 Chloride Carbon Dioxide POC Total CO2 21 L Anion Gap POC Anion Gap 14.0 L POC BUN < 3 L BUN Creatinine POC Creatinine 0.6 Est Cr Clr Drug Dosing Est GFR ( Amer) Est GFR (Non-Af Amer) BUN/Creatinine Ratio Glucose POC Glucose (other) 58 L* Calcium POC Ioniz Calcium Liz 1.02 L Total Bilirubin Direct Bilirubin AST ALT Alkaline Phosphatase Total Protein Albumin Lipase Urine Color [place] Urine Appearance Clear Urine pH Ur Specific [place] 1.007 Urine Protein Urine Glucose (UA) Urine Ketones Urine Blood Urine Nitrite Urine Bilirubin Urine Urobilinogen Ur Leukocyte Esterase Urine RBC 5-10 H Urine WBC 0-5 Ur Epithelial Cells >30 H Urine Bacteria 1+ H SARS-CoV-2, RNA, NAAT NEGATIVE Diagnostic Findings Chest X-ray 10/10/21 - IMPRESSION: Compared to the previous study, there is now a decreased inspiratory effort with otherwise no acute chest disease. Medications Administered Dextrose/Sodium Chloride (D5w And Nss) 1,000 mls @ 125 mls/hr IV .Q8H JUAN Stop: 11/09/21 10:44 Last Admin: 10/10/21 11:34 Dose: 125 mls/hr Documented by: [id number] Discontinued Medications Multivitamins 10 ml/ Thiamine HCl 100 mg/ Folic Acid 1 mg/Sodium Chloride 1,011.2 mls @ 1,011.2 mls/hr IV .Q1H ONE Stop: 10/10/21 09:12 Last Infusion: 10/10/21 10:28 Dose: 0 mls/hr Documented by: [id number] Admin: 10/10/21 08:51 Dose: 1,011.2 mls/hr Documented by: [id number] Lorazepam (Ativan) 1 mg in 2 mls @ 2 mls/min IV NOW STA Stop: 10/10/21 09:55 Last Admin: 10/10/21 10:30 Dose: 2 mls/min Documented by: [id number] Thiamine HCl 200 mg/ Sodium (Chloride) 52 mls @ 208 mls/hr IV NOW STA Stop: 10/10/21 10:45 Last Admin: 10/10/21 11:33 Dose: 208 mls/hr Documented by: [id number] Supervising Physician Co-Signing Physician Notes Patient is a 36-year-old female with history of alcohol use disorder, alcoholic hepatitis, pancreatitis, asthma and other medical problems presents with history of rectal bleed since 1 day duration. Patient was discharged from [facility] yesterday after being treated for alcoholic hepatitis. Patient denies any aspirin, NSAIDs use. She states having generalized abdominal discomfort, predominantly on right side denies any nausea, vomiting, diarrhea. She also states having nonproductive cough since 2 days duration and noted to have fever about 100.8 yesterday. She denies any chest pain, shortness of breath, dizziness, dysuria, hematuria. Patient states her last alcohol drink was about 1 week ago. Please review HPI for complete details of presentation. Blood work suggestive of leukocytosis 14.9 2K, hemoglobin 10.7 at baseline, INR elevated at 1.3, hyperglycemia 58, mild anion gap metabolic acidosis with bicarbonate 21. Elevated LFTs with total bilirubin 35.7, AST 114, ALT 28, alkaline phosphatase 171. Urine analysis suggestive of possible urinary tract infection. Chest x- ray showed no acute process. Patient is well-built and nourished, no apparent distress, normocephalic atraumatic, + EOMI, icteric, normal breath sounds, clear to auscultation, S1-S2, no murmur, no pedal edema, abdomen soft,+ mild generalized tenderness, normal bowel sounds, alert, awake, oriented, grossly no focal deficits,+ tremor,+ jaundice. Patient is admitted for management of alcoholic hepatitis, rectal bleeding, anion gap acidosis, hyperglycemia, possible urinary tract infection. We will avoid steroids for alcoholic hepatitis given rectal bleeding. May need pentoxifylline if okay with GI. Started on gabapentin protocol, thiamine, folic acid. Consulted GI. Started on PPI, IV fluids clear liquid diet, n.p.o. after midnight. Monitor H&H transfuse PRBCs as needed. Start on hypoglycemia protocol. Monitor LFTs, INR. Agree with starting Rocephin for possible UTI. Follow-up cultures. I personally reviewed the record. Patient is interviewed and examined at bedside. Patient's care is coordinated with Rena Mane PA-C. Please refer to the documentation above for details of patient's presentation and for discussion of other issues. (1) Alcoholic hepatitis Ascites presence: unspecified Qualified Code(s): K70.10 - Alcoholic hepatitis without ascites
[2021-10-10] MEDS ORDERED: GABAPENTIN 1200MG ALCOHOL WITHDRAWAL LOAD PO STA (12:49)
[2021-10-10] MEDS ORDERED: GABAPENTIN 1200MG LOADING DOSE PO ONE (13:15)
[2021-10-10] MEDS ORDERED: GABAPENTIN 600 MG TAB PO ONE (15:18)
[2021-10-10] MEDS ORDERED: GLUCOSE 40% GEL 15 GM TUBE PO PRN (15:18)
[2021-10-10] MEDS ORDERED: GLUCOSE 10 TABS/TUBE PO PRN (15:18)
[2021-10-10] MEDS ORDERED: LORazepam 2 MG/4 ML VIAL IV PRN (15:18)
[2021-10-10] MEDS ORDERED: ATIVAN IV ALCOHOL WITHDRAWL IV PRN (15:18)
[2021-10-10] MEDS ORDERED: cefTRIAXone SODIUM 1,000 MG in DEXTROSE 5% 50 ML IV SCH (15:18)
[2021-10-10] MEDS ORDERED: DEXTROSE 50% 50 ML SYRINGE IV PRN (15:18)
[2021-10-10] MEDS ORDERED: LORazepam 3 MG/6 ML VIAL IV PRN (15:18)
[2021-10-10] MEDS ORDERED: GLUCAGON FOR INJ 1 MG VIAL SQ PRN (15:18)
[2021-10-10] MEDS ORDERED: CARBOHYDRATES FOR HYPOGLYCEMIA PO PRN (15:18)
[2021-10-10 16:37] LABS: Influenza A virus by PCR Negative (Neg); Influenza B virus by PCR Negative (Neg); RSV by PCR Negative (Neg); SARS CoV2 RNA(COVID-19) InHosp NEGATIVE (Negative)
[2021-10-10] MEDS: busPIRone 5 MG TAB PO SCH ×2 (17:24→20:15)
[2021-10-10] MEDS: FOLIC ACID 1 MG in SYRINGE 9.8 ML IV SCH (17:38)
[2021-10-10] MEDS: THIAMINE HCL 100 MG in SYRINGE 9 ML IV SCH (17:38)
[2021-10-10 18:46] LABS: Hematocrit (blood only) 29.4 % (37-47); Hemoglobin 9.3 g/dL (12.0-16.0)
[2021-10-10] MEDS: LORazepam 1 MG/2 ML VIAL IV PRN (20:13)
[2021-10-10] MEDS: FLUTICASONE/VILANTEROL 200/25MCG 14 PUFFS/INHALER INH SCH (20:14)
[2021-10-10] MEDS: AZELASTINE HCL 0.1% NASAL 200 SPRAYS/27,400 MCG BTL SCH (20:15)
[2021-10-10] MEDS: GABAPENTIN 600MG Q6H DOSE PO SCH (20:15)
[2021-10-10] MEDS: PANTOprazole 40 MG in SYRINGE 0 ML IV SCH (20:28)
[2021-10-10] MEDS: MONTELUKAST SODIUM 10 MG TABLET PO SCH (20:31)
[2021-10-10] MEDS ORDERED: HYDROmorphone INJ 0.5 MG/0.5 ML SYR IV STA (20:36)
[2021-10-10] MEDS: GABAPENTIN 600 MG TAB PO SCH (22:35)
[2021-10-11] MEDS: GABAPENTIN 600MG Q6H DOSE PO SCH (00:32)
[2021-10-11 03:00] LABS: Hematocrit (blood only) 29.7 % (37-47); Hemoglobin 9.5 g/dL (12.0-16.0); Mean Corpuscular Hemoglobin 36.3 pg (25-34); Mean Corpuscular Volume 113.4 fL (80-100); Mean Platelet Volume 10.4 fL (7.4-10.4); Nucleated RBC # (auto) 0.02 K/uL (0-0); Nucleated RBC % (auto) 0.2 %; Platelet Count 233 K/uL (130-400); RDW Coefficient of Variation 20.5 % (11.5-14.5); RDW Standard Deviation 83.8 fL (36.4-46.3); Red Blood Count 2.62 M/uL (4.2-5.4); White Blood Count 12.93 K/uL (4.8-10.8)
[2021-10-11 03:16] LABS: INR 1.3 (0.9-1.1)
[2021-10-11 03:22] LABS: Anisocytosis Present; Basophils # (auto) 0.06 K/uL (0-0.2); Basophils % (auto) 0.5 %; Eosinophils # (auto) 0.07 K/uL (0-0.5); Eosinophils % (auto) 0.5 %; Immature Granulocytes # (auto) 0.25 K/uL (0.00-0.02); Immature Granulocytes % (auto) 1.9 %; Lymphocytes # (auto) 1.54 K/uL (1.2-3.4); Lymphocytes % (auto) 11.9 %; Macrocytosis Present; Monocytes # (auto) 1.33 K/uL (0.11-0.59); Monocytes % (auto) 10.3 %; Neutrophils # (auto) 9.68 K/uL (1.4-6.5); Neutrophils % (auto) 74.9 %; Polychromasia 1+
[2021-10-11 03:45] LABS: Alanine Aminotransferase 29 U/L (7-52); Albumin Level 2.4 gm/dl (3.4-5.0); Alkaline Phosphatase 144 U/L (34-104); Aspartate Aminotransferase 106 U/L (13-39); Bilirubin,Total 28.5 mg/dl (0.2-1.0); Blood Urea Nitrogen 3 mg/dl (6-23); Calcium 7.1 mg/dl (8.5-10.1); Chloride 110 mmol/L (98-107); Glucose 103 mg/dl (70-99(Fasting)); Magnesium 2.2 mg/dl (1.7-2.4); Potassium 2.8 mmol/L (3.5-5.1); Sodium 136 mmol/L (136-145); Total Protein 4.8 gm/dl (6.0-8.3)
[2021-10-11 03:46] LABS: Bilirubin Direct 18.3 mg/dl (0-0.2)
[2021-10-11] MEDS: DEXTROMETHORPHAN POLYMR COMPLX 30 MG/5 ML UDP PO PRN ×3 (04:38→19:41)
[2021-10-11] MEDS: GABAPENTIN 600 MG TAB PO SCH ×3 (05:14→19:53)
[2021-10-11] MEDS: D5W AND NSS 1,000 ML IV SCH ×3 (08:54→19:49)
[2021-10-11] MEDS: FOLIC ACID 1 MG in SYRINGE 9.8 ML IV SCH (08:55)
[2021-10-11] MEDS: PANTOprazole 40 MG in SYRINGE 0 ML IV SCH ×2 (08:55→19:51)
[2021-10-11] MEDS: THIAMINE HCL 100 MG in SYRINGE 9 ML IV SCH (08:55)
--- NOTE | 2021-10-11 08:59 | Gastrointestinal Consultation ---
Date of Consultation October 11, 2021 Assessment & Plan (1) Rectal bleedin36 year old female with ETOH hepatitis, admitted w/ hematochezia, small volume pink blood yesterday on toilet tissue, which appears to have resolved w/ normal BMs this AM. No acute indication for endoscopic evaluation Can have liquids and advance as tolerated today Trend H&H Monitor and document output Not a candidate for steroids at this time due to low DF after repeat calcuation with updated labs today and recent history of rectal bleeding PO PPI BID Recall GI as needed. Thank you for allowing us to participate in the care of this patient. Please call with any acute changes, questions or concerns. Please see addendum below with additional recommendation from my supervising physician. Supervising Physician Co-Signing Physician Notes I performed a history and physical examination of the patient today, including specifically on physical exam - soft abdomen. I have discussed the patient's management with the advanced practitioner. Please refer to the nurse practitioner's note for the documented findings and plan of care. BRBPR likely hemorrhoidal, plan for EGD/colonoscopy as OP. Alcohol cessation. Recall GI if needed. History of Present Illness Reason for Consultation: rectal bleeding Requesting Physician: Dave Attending Physician: Yin Palumbo MD History of Present Illness 36 year old female with history ofEtOH abuse, pancreatitis, prior alcoholic hepatitis, asthma, depression, anxiety, ADHD and allergies who presents to the ED w/ rectal bleeding. Recent admission for ETOH hep, not treated w/ steroids due to low DF. Was at home, and noted hematocheza. occured 2/3 episodes. Was passing formed stools with light pink/bright red blood to follow on toilet tissue on in bowl. Denies black stools. Denies nausea/vomiting or hematemesis/coffee ground emesis. Did not have lightheadedness, dizziness or SOB. In the ED, vitals stable, BUN nonelevated, persistent high TBili and elevated INR. Her HGB was stable, actually improved from labs at time of discharge. She remained stable overnight, HGB 9.5 this AM without BUN elevation. She moved her bowels this normal and reports brown stool only, no further episodes of bleeding. Has never had EGD/Colon Allergies Allergy/AdvReac Type Severity Reaction Status Date / Time banana Allergy Intermediate RASH, Verified 08/13/21 15:11 THROAT SLIGHTLY SWOLLEN Penicillins Allergy Unknown HAPPENED Verified 08/13/21 15:11 A CHILD Home Medications Medication Instructions Recorded Confirmed Type albuterol sulfate 90 mcg/actuation 1 inh INHALATION QID PRN 06/24/20 10/10/21 History aerosol inhaler (ProAir HFA) bupropion HCl 300 mg 24 hr tablet, 300 mg PO QAM 06/24/20 10/10/21 History extended release (Wellbutrin XL) buspirone 5 mg tablet 10 mg PO TID 06/24/20 10/10/21 History budesonide-formoterol HFA 160 2 puff INHALATION BID 06/20/21 10/10/21 History mcg-4.5 mcg/actuation aerosol inhaler (Symbicort) dextroamphetamine-amphetamine 5 mg 5 mg PO QDL 06/20/21 10/10/21 History tablet (Adderall) dextroamphetamine-amphetamine 5 mg 10 mg PO DAILY 06/20/21 10/10/21 History tablet (Adderall) ipratropium 20 mcg-albuterol 100 1 puff INHALATION BID 06/20/21 10/10/21 History mcg/actuation mist for inhalation (Combivent Respimat) loratadine 10 mg tablet 10 mg PO DAILY 06/20/21 10/10/21 History montelukast 10 mg tablet 10 mg PO HS 06/20/21 10/10/21 History omeprazole 20 mg capsule,delayed 20 mg PO DAILY 06/20/21 10/10/21 History release nicotine 14 mg/24 hr daily 1 patch TRANSDERMAL DAILY #28 ea 06/25/21 10/10/21 Rx transdermal patch azelastine 137 mcg (0.1 %) nasal 1 spray INTRANASAL BID 10/03/21 10/10/21 History spray aerosol fluticasone propionate 50 2 spray INTRANASAL DAILY 10/03/21 10/10/21 History mcg/actuation nasal spray,suspension multivitamin 1 tab PO DAILY 10/03/21 10/10/21 History folic acid 1 mg tablet 1 mg PO QAM #30 tab 10/09/21 10/10/21 Rx thiamine HCl (vitamin B1) 100 mg 100 mg PO QAM #30 tab 10/09/21 10/10/21 Rx tablet Patient History Medical History ADD (attention deficit disorder) Alcohol abuse Alcoholic hepatitis Alcoholic pancreatitis Allergic sinusitis Anxiety Asthma Depression Fatty liver Surgical History No significant past surgical history Family History Grandmother Breast cancer Grandfather Heart disease Social History Smoking Status: Current every day smoker Tobacco Type: Cigarettes Cigarettes Per Day: 4; Second Hand Exposure: Yes; Hx Alcohol Use: Yes Alcohol type: hard liquor Hx Substance Use: No Preferred Language: Scottish 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 Ability: Effective 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 Beliefs That Will Affect Care: None marital status: Single Current Living Situation: Significant Other Current Living Situation Comment: Apartment current occupational status: employed How many Children do You have: 0 Other Information That Helps Us Care for You: No Feels Safe at Home: Yes Assistive Devices: None Review of Systems Review of Systems: All systems reviewed & are unremarkable except as noted in HPI & below Physical Exam Constitutional: WD/WN, vitals as above Neck: trachea midline, no thyromegaly Respiratory: normal respiratory effort, lungs clear to auscultation Gastrointestinal (Abdomen): normal bowel sounds, soft, nontender, no hepatosplenomegaly Skin: no rashes, warm and dry Results & Data ([facility]) Vital Signs (Past 12 Hours) Vital Signs Temp Pulse Resp BP Pulse Ox 10/11/21 05:17 36.9 C 98 H 17 104/59 L 94 10/11/21 02:54 99 H 16 100/59 L 94 10/11/21 00:34 37.4 C 97 H 20 92/61 L 96 10/10/21 22:24 101 H 16 92/65 L 95 Laboratory Results 10/11/21 10/11/21 10/11/21 Range/Units 02:41 02:41 02:41 WBC 12.93 H (4.8-10.8) K/uL RBC 2.62 L (4.2-5.4) M/uL Hgb 9.5 L (12.0-16.0) g/dL POC Hgb Hct 29.7 L (37-47) % POC Hct MCV 113.4 H (80-100) fL MCH 36.3 H (25-34) pg MCHC 32.0 (32-36) g/dL RDW Std Deviation 83.8 H (36.4-46.3) fL RDW Coeff of Yasmine 20.5 H (11.5-14.5) % Plt Count 233 (130-400) K/uL MPV 10.4 (7.4-10.4) fL Immature Gran % (Auto) 1.9 % Neut % (Auto) 74.9 % Lymph % (Auto) 11.9 % [place] % (Auto) 10.3 % Eos % (Auto) 0.5 % Baso % (Auto) 0.5 % Neut # (Auto) 9.68 H (1.4-6.5) K/uL Lymph # (Auto) 1.54 (1.2-3.4) K/uL [place] # (Auto) 1.33 H (0.11-0.59) K/uL Eos # (Auto) 0.07 (0-0.5) K/uL Baso # (Auto) 0.06 (0-0.2) K/uL Immature Gran # (Auto) 0.25 H (0.00-0.02) K/uL Absolute Nucleated RBC 0.02 H (0-0) K/uL Nucleated RBC % (auto) 0.2 % Polychromasia 1+ Anisocytosis Present Macrocytosis Present [place] Bodies PT 13.0 H (9.0-12.0) Seconds INR 1.3 H (0.9-1.1) APTT (21.0-31.0) Seconds PTT Ratio POC Sodium (135-144) mmol/L Sodium 136 POC Potassium (3.3-5.0) mmol/L Potassium 2.8 L POC Chloride (101-112) mmol/L Chloride 110 H Carbon Dioxide POC Total CO2 (24-31) mmol/L Anion Gap TNP POC Anion Gap (16-25) mmol/L POC BUN (7-18) mg/dl BUN 3 L Creatinine POC Creatinine (0.6-1.3) mg/dl Est Cr Clr Drug Dosing TNP Est GFR ( Amer) TNP Est GFR (Non-Af Amer) TNP BUN/Creatinine Ratio TNP Glucose 103 H POC Glucose (70-99) mg/dl POC Glucose (other) (70-99) mg/dl Calcium 7.1 L POC Ioniz Calcium Liz (1.12-1.32) mmol/l Magnesium 2.2 (1.7-2.4) mg/dl Total Bilirubin 28.5 H (0.2-1.0) mg/dl Direct Bilirubin 18.3 H AST 106 H ALT 29 Alkaline Phosphatase 144 H Total Protein 4.8 L Albumin 2.4 L Lipase Urine Color Urine Appearance (Clear) Urine pH (4.5-7.5) Ur Specific [place] (1.000-1.030) Urine Protein (Negative) Urine Glucose (UA) (Negative) Urine Ketones (Negative) Urine Blood (Negative) Urine Nitrite (Negative) Urine Bilirubin (Negative) Urine Urobilinogen (Negative) Ur Leukocyte Esterase (Negative) Urine RBC (0-4) /hpf Urine WBC (0-5) /hpf Ur Epithelial Cells (0-5) /lpf Urine Bacteria (Negative) Ethyl Alcohol mg/dL (<10.0) mg/dl SARS-CoV-2 (PCR) (Negative) Influenza Type A (PCR) (Neg) Influenza Type B (PCR) (Neg) RSV (RT-PCR) (Neg) SARS-CoV-2, RNA, NAAT (NEGATIVE) 10/10/21 10/10/21 10/10/21 Range/Units 20:20 18:40 15:50 WBC (4.8-10.8) K/uL RBC (4.2-5.4) M/uL Hgb 9.3 L (12.0-16.0) g/dL POC Hgb Hct 29.4 L (37-47) % POC Hct MCV (80-100) fL MCH (25-34) pg MCHC (32-36) g/dL RDW Std Deviation (36.4-46.3) fL RDW Coeff of Yasmine (11.5-14.5) % Plt Count (130-400) K/uL MPV (7.4-10.4) fL Immature Gran % (Auto) % Neut % (Auto) % Lymph % (Auto) % [place] % (Auto) % Eos % (Auto) % Baso % (Auto) % Neut # (Auto) (1.4-6.5) K/uL Lymph # (Auto) (1.2-3.4) K/uL [place] # (Auto) (0.11-0.59) K/uL Eos # (Auto) (0-0.5) K/uL Baso # (Auto) (0-0.2) K/uL Immature Gran # (Auto) (0.00-0.02) K/uL Absolute Nucleated RBC (0-0) K/uL Nucleated RBC % (auto) % Polychromasia Anisocytosis Macrocytosis [place] Bodies PT (9.0-12.0) Seconds INR (0.9-1.1) APTT (21.0-31.0) Seconds PTT Ratio POC Sodium (135-144) mmol/L Sodium POC Potassium (3.3-5.0) mmol/L Potassium POC Chloride (101-112) mmol/L Chloride Carbon Dioxide POC Total CO2 (24-31) mmol/L Anion Gap POC Anion Gap (16-25) mmol/L POC BUN (7-18) mg/dl BUN Creatinine POC Creatinine (0.6-1.3) mg/dl Est Cr Clr Drug Dosing Est GFR ( Amer) Est GFR (Non-Af Amer) BUN/Creatinine Ratio Glucose POC Glucose 121 H (70-99) mg/dl POC Glucose (other) (70-99) mg/dl Calcium POC Ioniz Calcium Liz (1.12-1.32) mmol/l Magnesium (1.7-2.4) mg/dl Total Bilirubin (0.2-1.0) mg/dl Direct Bilirubin AST ALT Alkaline Phosphatase Total Protein Albumin Lipase Urine Color Urine Appearance (Clear) Urine pH (4.5-7.5) Ur Specific [place] (1.000-1.030) Urine Protein (Negative) Urine Glucose (UA) (Negative) Urine Ketones (Negative) Urine Blood (Negative) Urine Nitrite (Negative) Urine Bilirubin (Negative) Urine Urobilinogen (Negative) Ur Leukocyte Esterase (Negative) Urine RBC (0-4) /hpf Urine WBC (0-5) /hpf Ur Epithelial Cells (0-5) /lpf Urine Bacteria (Negative) Ethyl Alcohol mg/dL (<10.0) mg/dl SARS-CoV-2 (PCR) NEGATIVE (Negative) Influenza Type A (PCR) Negative (Neg) Influenza Type B (PCR) Negative (Neg) RSV (RT-PCR) Negative (Neg) SARS-CoV-2, RNA, NAAT (NEGATIVE) 10/10/21 10/10/21 10/10/21 Range/Units 12:22 10:45 09:11 WBC (4.8-10.8) K/uL RBC (4.2-5.4) M/uL Hgb (12.0-16.0) g/dL POC Hgb Hct (37-47) % POC Hct MCV (80-100) fL MCH (25-34) pg MCHC (32-36) g/dL RDW Std Deviation (36.4-46.3) fL RDW Coeff of Yasmine (11.5-14.5) % Plt Count (130-400) K/uL MPV (7.4-10.4) fL Immature Gran % (Auto) % Neut % (Auto) % Lymph % (Auto) % [place] % (Auto) % Eos % (Auto) % Baso % (Auto) % Neut # (Auto) (1.4-6.5) K/uL Lymph # (Auto) (1.2-3.4) K/uL [place] # (Auto) (0.11-0.59) K/uL Eos # (Auto) (0-0.5) K/uL Baso # (Auto) (0-0.2) K/uL Immature Gran # (Auto) (0.00-0.02) K/uL Absolute Nucleated RBC (0-0) K/uL Nucleated RBC % (auto) % Polychromasia Anisocytosis Macrocytosis [place] Bodies PT (9.0-12.0) Seconds INR (0.9-1.1) APTT (21.0-31.0) Seconds PTT Ratio POC Sodium (135-144) mmol/L Sodium POC Potassium (3.3-5.0) mmol/L Potassium POC Chloride (101-112) mmol/L Chloride Carbon Dioxide POC Total CO2 (24-31) mmol/L Anion Gap POC Anion Gap (16-25) mmol/L POC BUN (7-18) mg/dl BUN Creatinine POC Creatinine (0.6-1.3) mg/dl Est Cr Clr Drug Dosing Est GFR ( Amer) Est GFR (Non-Af Amer) BUN/Creatinine Ratio Glucose POC Glucose (70-99) mg/dl POC Glucose (other) (70-99) mg/dl Calcium POC Ioniz Calcium Liz (1.12-1.32) mmol/l Magnesium (1.7-2.4) mg/dl Total Bilirubin (0.2-1.0) mg/dl Direct Bilirubin AST ALT Alkaline Phosphatase Total Protein Albumin Lipase Urine Color [place] Urine Appearance Clear (Clear) Urine pH (4.5-7.5) Ur Specific [place] 1.007 (1.000-1.030) Urine Protein (Negative) Urine Glucose (UA) (Negative) Urine Ketones (Negative) Urine Blood (Negative) Urine Nitrite (Negative) Urine Bilirubin (Negative) Urine Urobilinogen (Negative) Ur Leukocyte Esterase (Negative) Urine RBC 5-10 H (0-4) /hpf Urine WBC 0-5 (0-5) /hpf Ur Epithelial Cells >30 H (0-5) /lpf Urine Bacteria 1+ H (Negative) Ethyl Alcohol mg/dL < 10.0 (<10.0) mg/dl SARS-CoV-2 (PCR) (Negative) Influenza Type A (PCR) (Neg) Influenza Type B (PCR) (Neg) RSV (RT-PCR) (Neg) SARS-CoV-2, RNA, NAAT NEGATIVE (NEGATIVE) 10/10/21 10/10/21 10/10/21 Range/Units 08:50 08:50 08:50 WBC (4.8-10.8) K/uL RBC (4.2-5.4) M/uL Hgb (12.0-16.0) g/dL POC Hgb TNP Hct (37-47) % POC Hct TNP MCV (80-100) fL MCH (25-34) pg MCHC (32-36) g/dL RDW Std Deviation (36.4-46.3) fL RDW Coeff of Yasmine (11.5-14.5) % Plt Count (130-400) K/uL MPV (7.4-10.4) fL Immature Gran % (Auto) % Neut % (Auto) % Lymph % (Auto) % [place] % (Auto) % Eos % (Auto) % Baso % (Auto) % Neut # (Auto) (1.4-6.5) K/uL Lymph # (Auto) (1.2-3.4) K/uL [place] # (Auto) (0.11-0.59) K/uL Eos # (Auto) (0-0.5) K/uL Baso # (Auto) (0-0.2) K/uL Immature Gran # (Auto) (0.00-0.02) K/uL Absolute Nucleated RBC (0-0) K/uL Nucleated RBC % (auto) % Polychromasia Anisocytosis Macrocytosis [place] Bodies PT 12.7 H (9.0-12.0) Seconds INR 1.3 H (0.9-1.1) APTT 26.8 (21.0-31.0) Seconds PTT Ratio 1.0 POC Sodium 137 (135-144) mmol/L Sodium Cancelled POC Potassium 4.1 (3.3-5.0) mmol/L Potassium Cancelled POC Chloride 107 (101-112) mmol/L Chloride Cancelled Carbon Dioxide Cancelled POC Total CO2 21 L (24-31) mmol/L Anion Gap Cancelled POC Anion Gap 14.0 L (16-25) mmol/L POC BUN < 3 L (7-18) mg/dl BUN Cancelled Creatinine Cancelled POC Creatinine 0.6 (0.6-1.3) mg/dl Est Cr Clr Drug Dosing Cancelled Est GFR ( Amer) Cancelled Est GFR (Non-Af Amer) Cancelled BUN/Creatinine Ratio Cancelled Glucose Cancelled POC Glucose (70-99) mg/dl POC Glucose (other) 58 L* (70-99) mg/dl Calcium Cancelled POC Ioniz Calcium Liz 1.02 L (1.12-1.32) mmol/l Magnesium (1.7-2.4) mg/dl Total Bilirubin 35.7 H (0.2-1.0) mg/dl Direct Bilirubin Cancelled AST Cancelled ALT Cancelled Alkaline Phosphatase Cancelled Total Protein Cancelled Albumin Cancelled Lipase Cancelled Urine Color Urine Appearance (Clear) Urine pH (4.5-7.5) Ur Specific [place] (1.000-1.030) Urine Protein (Negative) Urine Glucose (UA) (Negative) Urine Ketones (Negative) Urine Blood (Negative) Urine Nitrite (Negative) Urine Bilirubin (Negative) Urine Urobilinogen (Negative) Ur Leukocyte Esterase (Negative) Urine RBC (0-4) /hpf Urine WBC (0-5) /hpf Ur Epithelial Cells (0-5) /lpf Urine Bacteria (Negative) Ethyl Alcohol mg/dL (<10.0) mg/dl SARS-CoV-2 (PCR) (Negative) Influenza Type A (PCR) (Neg) Influenza Type B (PCR) (Neg) RSV (RT-PCR) (Neg) SARS-CoV-2, RNA, NAAT (NEGATIVE) 10/10/21 Range/Units 08:50 WBC 14.92 H (4.8-10.8) K/uL RBC 2.94 L (4.2-5.4) M/uL Hgb 10.7 L (12.0-16.0) g/dL POC Hgb Hct 33.5 L (37-47) % POC Hct MCV 113.9 H (80-100) fL MCH 36.4 H (25-34) pg MCHC 31.9 L (32-36) g/dL RDW Std Deviation 85.9 H (36.4-46.3) fL RDW Coeff of Yasmine 20.6 H (11.5-14.5) % Plt Count 254 (130-400) K/uL MPV 11.0 H (7.4-10.4) fL Immature Gran % (Auto) 1.5 % Neut % (Auto) 75.9 % Lymph % (Auto) 10.9 % [place] % (Auto) 10.9 % Eos % (Auto) 0.5 % Baso % (Auto) 0.3 % Neut # (Auto) 11.32 H (1.4-6.5) K/uL Lymph # (Auto) 1.62 (1.2-3.4) K/uL [place] # (Auto) 1.63 H (0.11-0.59) K/uL Eos # (Auto) 0.07 (0-0.5) K/uL Baso # (Auto) 0.05 (0-0.2) K/uL Immature Gran # (Auto) 0.23 H (0.00-0.02) K/uL Absolute Nucleated RBC 0.03 H (0-0) K/uL Nucleated RBC % (auto) 0.2 % Polychromasia 1+ Anisocytosis Present Macrocytosis [place] Bodies Occasional PT (9.0-12.0) Seconds INR (0.9-1.1) APTT (21.0-31.0) Seconds PTT Ratio POC Sodium (135-144) mmol/L Sodium POC Potassium (3.3-5.0) mmol/L Potassium POC Chloride (101-112) mmol/L Chloride Carbon Dioxide POC Total CO2 (24-31) mmol/L Anion Gap POC Anion Gap (16-25) mmol/L POC BUN (7-18) mg/dl BUN Creatinine POC Creatinine (0.6-1.3) mg/dl Est Cr Clr Drug Dosing Est GFR ( Amer) Est GFR (Non-Af Amer) BUN/Creatinine Ratio Glucose POC Glucose (70-99) mg/dl POC Glucose (other) (70-99) mg/dl Calcium POC Ioniz Calcium Liz (1.12-1.32) mmol/l Magnesium (1.7-2.4) mg/dl Total Bilirubin (0.2-1.0) mg/dl Direct Bilirubin AST ALT Alkaline Phosphatase Total Protein Albumin Lipase Urine Color Urine Appearance (Clear) Urine pH (4.5-7.5) Ur Specific [place] (1.000-1.030) Urine Protein (Negative) Urine Glucose (UA) (Negative) Urine Ketones (Negative) Urine Blood (Negative) Urine Nitrite (Negative) Urine Bilirubin (Negative) Urine Urobilinogen (Negative) Ur Leukocyte Esterase (Negative) Urine RBC (0-4) /hpf Urine WBC (0-5) /hpf Ur Epithelial Cells (0-5) /lpf Urine Bacteria (Negative) Ethyl Alcohol mg/dL (<10.0) mg/dl SARS-CoV-2 (PCR) (Negative) Influenza Type A (PCR) (Neg) Influenza Type B (PCR) (Neg) RSV (RT-PCR) (Neg) SARS-CoV-2, RNA, NAAT (NEGATIVE)
[2021-10-11] MEDS ORDERED: buPROPion XL 300 MG TABCR PO SCH (09:00)
[2021-10-11] MEDS ORDERED: GABAPENTIN 600MG Q8H DOSE PO SCH (09:00)
[2021-10-11] MEDS: busPIRone 5 MG TAB PO SCH ×3 (09:24→19:51)
[2021-10-11] MEDS: AZELASTINE HCL 0.1% NASAL 200 SPRAYS/27,400 MCG BTL SCH ×2 (09:26→20:49)
[2021-10-11] MEDS: LORATADINE 10 MG TAB PO SCH (09:26)
[2021-10-11] MEDS: FLUTICASONE PROPIONATE NA SPR 16 GM BTL SCH (09:27)
[2021-10-11] MEDS: NICOTINE 14 MG/24 HR PATCH TD SCH (09:27)
[2021-10-11] MEDS: AMPHETAMINE ASP/SULF/DEXTRAMPH 10 MG TAB PO SCH (10:00)
[2021-10-11] MEDS ORDERED: POTASSIUM CHLORIDE CRTAB 20 MEQ TABCR PO SCH (10:32)
[2021-10-11] MEDS ORDERED: POTASSIUM CHLORIDE CRTAB 20 MEQ TABCR PO STA (10:32)
[2021-10-11] MEDS: LORazepam 1 MG/2 ML VIAL IV PRN (10:48)
[2021-10-11] MEDS ORDERED: AMPHETAMINE ASP/SULF/DEXTRAMPH 5 MG TAB PO SCH (11:30)
--- NOTE | 2021-10-11 12:00 | Hospitalist Progress Note ---
Date of Service October 11, 2021 Assessment & Plan (1) Rectal bleeding: Plan: Hb is stable GI evaluation noted. Endoscopy not recommended Follow up GI outpatient Advance diet (2) Alcoholic hepatitis: Plan: GI evaluation noted Patient counselled again regarding alcohol use No indication for steroid therapy at this time Avoid opioid use as much as possible (3) Alcohol abuse with withdrawal: Plan: Patient not actively withdrawing at this time Thiamine/Folic Acid daily (4) Asthma: (5) Anxiety: (6) ADD (attention deficit disorder): Plan: Continue home med Psych c/s per pt's request Plan: On ceftriaxone for possible UTI per Admitting D/roseanna antibiotics. UCx- mixed skin lizz and patient denies urinary symptoms Patient reports she is considering inpt rehab but has not decided Possible DC tomorrow if patient does not want inpatient rehab Admission and Anticipated Discharge Date Admission Date: October 10, 2021 Subjective Patient seen and examined Reports abd discomfort especially on right side Reported some fever at home Denied any dizziness, chest pain, shortness of breath Reports no BM today Last BM at home and yesterday were brown followed by BRBPR Denied dysuria, freq, urgency Still has yellow skin Denied drinking when he was at home briefly after recent discharge She acknowledged depression and will like to talk to a psychiatrist. Denied suicidal/homicidal ideation Physical Exam Constitutional: + obese; no acute distress Eyes: sclerae not anicteric ENMT: external ear and nose normal, oropharynx normal Respiratory: normal respiratory effort, lungs clear to auscultation Cardiovascular: Rate/Rhythm: regular rate and regular rhythm S1 S2 Gastrointestinal (Abdomen): normal bowel sounds, soft, nontender, no hepatosplenomegaly Musculoskeletal: no cyanosis or clubbing, extremities motor strength 5/5 Skin: Generalized jaundice Neurologic: PERRL, EOMI, accommodation nl, no face palsy, no dysarthria No tremors Psychiatric: Aox3, flat affect Results & Data Results & Data ([facility]) Vital Signs (Past 12 Hours) Vital Signs Temp Pulse Resp BP Pulse Ox Pulse Ox 10/11/21 11:11 97 H 20 102/65 96 10/11/21 11:08 94 10/11/21 05:17 36.9 C 98 H 17 104/59 L 94 10/11/21 02:54 99 H 16 100/59 L 94 10/11/21 00:34 37.4 C 97 H 20 92/61 L 96 Laboratory Results Abnormal lab results 10/10/21 10/10/21 10/11/21 Range/Units 18:40 20:20 02:41 WBC 12.93 H (4.8-10.8) K/uL RBC 2.62 L (4.2-5.4) M/uL Hgb 9.3 L 9.5 L (12.0-16.0) g/dL Hct 29.4 L 29.7 L (37-47) % MCV 113.4 H (80-100) fL MCH 36.3 H (25-34) pg RDW Std Deviation 83.8 H (36.4-46.3) fL RDW Coeff of Yasmine 20.5 H (11.5-14.5) % Neut # (Auto) 9.68 H (1.4-6.5) K/uL [place] # (Auto) 1.33 H (0.11-0.59) K/uL Immature Gran # (Auto) 0.25 H (0.00-0.02) K/uL Absolute Nucleated RBC 0.02 H (0-0) K/uL PT (9.0-12.0) Seconds INR (0.9-1.1) Potassium (3.5-5.1) mmol/L Chloride (98-107) mmol/L BUN (6-23) mg/dl Glucose (70-99(Fasting)) mg/dl POC Glucose 121 H (70-99) mg/dl Calcium (8.5-10.1) mg/dl Phosphorus (2.5-4.9) mg/dl Total Bilirubin (0.2-1.0) mg/dl Direct Bilirubin (0-0.2) mg/dl AST (13-39) U/L Alkaline Phosphatase (34-104) U/L Total Protein (6.0-8.3) gm/dl Albumin (3.4-5.0) gm/dl 10/11/21 10/11/21 10/11/21 Range/Units 02:41 02:41 02:41 WBC (4.8-10.8) K/uL RBC (4.2-5.4) M/uL Hgb (12.0-16.0) g/dL Hct (37-47) % MCV (80-100) fL MCH (25-34) pg RDW Std Deviation (36.4-46.3) fL RDW Coeff of Yasmine (11.5-14.5) % Neut # (Auto) (1.4-6.5) K/uL [place] # (Auto) (0.11-0.59) K/uL Immature Gran # (Auto) (0.00-0.02) K/uL Absolute Nucleated RBC (0-0) K/uL PT 13.0 H (9.0-12.0) Seconds INR 1.3 H (0.9-1.1) Potassium 2.8 L (3.5-5.1) mmol/L Chloride 110 H (98-107) mmol/L BUN 3 L (6-23) mg/dl Glucose 103 H (70-99(Fasting)) mg/dl POC Glucose (70-99) mg/dl Calcium 7.1 L (8.5-10.1) mg/dl Phosphorus 2.1 L (2.5-4.9) mg/dl Total Bilirubin 28.5 H (0.2-1.0) mg/dl Direct Bilirubin 18.3 H (0-0.2) mg/dl AST 106 H (13-39) U/L Alkaline Phosphatase 144 H (34-104) U/L Total Protein 4.8 L (6.0-8.3) gm/dl Albumin 2.4 L (3.4-5.0) gm/dl 10/11/21 Range/Units 13:24 WBC (4.8-10.8) K/uL RBC (4.2-5.4) M/uL Hgb (12.0-16.0) g/dL Hct (37-47) % MCV (80-100) fL MCH (25-34) pg RDW Std Deviation (36.4-46.3) fL RDW Coeff of Yasmine (11.5-14.5) % Neut # (Auto) (1.4-6.5) K/uL [place] # (Auto) (0.11-0.59) K/uL Immature Gran # (Auto) (0.00-0.02) K/uL Absolute Nucleated RBC (0-0) K/uL PT (9.0-12.0) Seconds INR (0.9-1.1) Potassium (3.5-5.1) mmol/L Chloride (98-107) mmol/L BUN (6-23) mg/dl Glucose (70-99(Fasting)) mg/dl POC Glucose 129 H (70-99) mg/dl Calcium (8.5-10.1) mg/dl Phosphorus (2.5-4.9) mg/dl Total Bilirubin (0.2-1.0) mg/dl Direct Bilirubin (0-0.2) mg/dl AST (13-39) U/L Alkaline Phosphatase (34-104) U/L Total Protein (6.0-8.3) gm/dl Albumin (3.4-5.0) gm/dl (1) Alcoholic hepatitis Ascites presence: unspecified Qualified Code(s): K70.10 - Alcoholic hepatitis without ascites
[2021-10-11] MEDS: AMPHETAMINE ASP/SULF/DEXTRAMPH 5 MG TAB PO SCH (13:00)
--- NOTE | 2021-10-11 13:11 | Psychiatric Consultation ---
Date of Consultation October 11, 2021 Impression / Recommendations Impression 36 yo female with generalized anxiety and self-medication with ETOH, anxiety likely primary with subsequent decline in mood due to medical complications of ETOH use. She remains resistant to rehab despite discussion. Reports hx of ADHD by testing on Adderall (unable to confirm dx in the setting of acute illness). (1) Generalized anxiety disorder: (2) Alcohol use disorder: there is no indication for inpatient psychiatric hospitalization she is aware that inpatient rehab is recommended and declines, there is no evidence of delirium or intoxication interfering with her medical decision making Naltrexone was discussed with her hospitalist last admission and couldn't restart at that point as had received opiates for pancreatic pain. Could restart naltrexone 50 mg daily to decrease ETOH cravings if 7-10 days out from opiates at discretion of hospitalist/GI. particularly since she is agreeable to IOP referral to [facility] and they could manage and/or convert to monthly IM Vivitrol. with regards to her current medication, I would start tapering Wellbutrin as could be activating, and buspar as reportedly ineffective. Anxiety will be covered by the Neurontin protocol while hospitalized. would not start SSRI in context of possible bleeding. Wellbutrin XL 150 mg for 3 days then d/c. Buspar 5 mg TID through tomorrow then d/c. liaison to have patient sign [facility] for [facility] and call for intake appt. Risk Factors Assessment Do You Have Access To A Gun?: No Psych History Identifying Data Kathie is a 36 yo female with a history of ETOH use disorder who was recently admitted medically for ETOH induced pancreatitis. Consult is by hospitalist service for depression and anxiety. Chief Complaint "They want me to go to rehab but I'm not.". History of Present Illness Kathie states she last went to rehab in 2019 and had a few months sobriety before starting to drinking again due to isolation of COVID. Her use pattern is well documented on the chart. Increasing amount was not the only concern, she started drinking at work ([employer]) and co-workers commented on smell or slurring words. She reports drinking due to generalized anxiety about mother's health, something bad happening to her boyfriend, "you name it". She has taken naltrexone in the past with some benefit. She endorses "I've probably been depressed for a long time.", unclear how much change in energy, appetite, and sleep is truly depression vs. substance induced. She denies ever having suicidal thoughts. She doesn't feel that Wellbutrin or Buspar are effective for her symptoms. She does not feel her anxiety coincides with dosing of Adderall as she has taken it for 5 years. She states that she was diagnosed with ADHD at that time by testing, though doesn't specifically recall what was involved. Past Psychiatric History Outpatient Services: meds per PCP Previous Psych Admissions: none Do You Have Access To A Gun?: No History of Previous Suicide Attempt: No Past Medication Trials: current meds + Rev[facility] Allergies Allergy/AdvReac Type Severity Reaction Status Date / Time banana Allergy Intermediate RASH, Verified 08/13/21 15:11 THROAT SLIGHTLY SWOLLEN Penicillins Allergy Unknown HAPPENED Verified 08/13/21 15:11 A CHILD Home Medications Medication Instructions Recorded Confirmed Type albuterol sulfate 90 mcg/actuation 1 inh INHALATION QID PRN 06/24/20 10/10/21 History aerosol inhaler (ProAir HFA) bupropion HCl 300 mg 24 hr tablet, 300 mg PO QAM 06/24/20 10/10/21 History extended release (Wellbutrin XL) buspirone 5 mg tablet 10 mg PO TID 06/24/20 10/10/21 History budesonide-formoterol HFA 160 2 puff INHALATION BID 06/20/21 10/10/21 History mcg-4.5 mcg/actuation aerosol inhaler (Symbicort) dextroamphetamine-amphetamine 5 mg 5 mg PO QDL 06/20/21 10/10/21 History tablet (Adderall) dextroamphetamine-amphetamine 5 mg 10 mg PO DAILY 06/20/21 10/10/21 History tablet (Adderall) ipratropium 20 mcg-albuterol 100 1 puff INHALATION BID 06/20/21 10/10/21 History mcg/actuation mist for inhalation (Combivent Respimat) loratadine 10 mg tablet 10 mg PO DAILY 06/20/21 10/10/21 History montelukast 10 mg tablet 10 mg PO HS 06/20/21 10/10/21 History omeprazole 20 mg capsule,delayed 20 mg PO DAILY 06/20/21 10/10/21 History release nicotine 14 mg/24 hr daily 1 patch TRANSDERMAL DAILY #28 ea 06/25/21 10/10/21 Rx transdermal patch azelastine 137 mcg (0.1 %) nasal 1 spray INTRANASAL BID 10/03/21 10/10/21 History spray aerosol fluticasone propionate 50 2 spray INTRANASAL DAILY 10/03/21 10/10/21 History mcg/actuation nasal spray,suspension multivitamin 1 tab PO DAILY 10/03/21 10/10/21 History folic acid 1 mg tablet 1 mg PO QAM #30 tab 10/09/21 10/10/21 Rx thiamine HCl (vitamin B1) 100 mg 100 mg PO QAM #30 tab 10/09/21 10/10/21 Rx tablet Family History non specific, 1 brother with similar issues Substance Abuse History denies substance other than ETOH, denies use since prior to last hospitalization Personal History Living Arrangements: Home (with boyfriend in [place]) Childhood: 4 sibs (3 brothers) 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 Other Number Of Children: 0 Beliefs That Will Affect Care: None History of Legal Problems: denies current legal problems Patient History Medical History ADD (attention deficit disorder) Alcohol abuse Alcoholic hepatitis Alcoholic pancreatitis Allergic sinusitis Anxiety Asthma Depression Fatty liver Surgical History No significant past surgical history Family History Grandmother Breast cancer Grandfather Heart disease Social History Smoking Status: Current every day smoker Tobacco Type: Cigarettes Cigarettes Per Day: 4; Second Hand Exposure: Yes; Hx Alcohol Use: Yes Alcohol type: hard liquor Hx Substance Use: No Preferred Language: Telugu 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 Ability: Effective Entry Level Manager Required: No Beliefs That Will Affect Care: None marital status: Single Current Living Situation: Significant Other Current Living Situation Comment: Apartment current occupational status: employed How many Children do You have: 0 Other Information That Helps Us Care for You: No Feels Safe at Home: Yes Assistive Devices: None Physical Exam Psychiatric: Orientation: alert and oriented x 3 Apperance: appropriately dressed and + disheveled Eye Contact: good eye contact Motor Behavior: no abnormal motor movements Speech: normal rate/rhythm/volume of speech Affect: + depressed affect Mood: + anxious mood Thought Process: goal directed thought process Thought Content: reality based without delusions Suicidal Thoughts: denies suicidal thoughts Homicidal Thoughts: denies homicidal thoughts Hallucinations: no auditory hallucinations and no visual hallucinations Cognition: attention grossly intact and language grossly intact Estimated Intelligence: consistent with education level Vital Signs (Past 24 Hours): Last Vital Signs Temp 36.9 C 10/11/21 05:17 Pulse 97 H 10/11/21 11:11 Resp 20 10/11/21 11:11 BP 102/65 10/11/21 11:11 Pulse Ox 96 10/11/21 11:11 Review of Systems All systems reviewed & are unremarkable except as noted in HPI & below Results & Data ([facility]) Laboratory Results 10/11/21 10/11/21 10/11/21 Range/Units 02:41 02:41 02:41 WBC (4.8-10.8) K/uL RBC (4.2-5.4) M/uL Hgb (12.0-16.0) g/dL Hct (37-47) % MCV (80-100) fL MCH (25-34) pg MCHC (32-36) g/dL RDW Std Deviation (36.4-46.3) fL RDW Coeff of Yasmine (11.5-14.5) % Plt Count (130-400) K/uL MPV (7.4-10.4) fL Immature Gran % (Auto) % Neut % (Auto) % Lymph % (Auto) % [place] % (Auto) % Eos % (Auto) % Baso % (Auto) % Neut # (Auto) (1.4-6.5) K/uL Lymph # (Auto) (1.2-3.4) K/uL [place] # (Auto) (0.11-0.59) K/uL Eos # (Auto) (0-0.5) K/uL Baso # (Auto) (0-0.2) K/uL Immature Gran # (Auto) (0.00-0.02) K/uL Absolute Nucleated RBC (0-0) K/uL Nucleated RBC % (auto) % Polychromasia Anisocytosis Macrocytosis PT 13.0 H (9.0-12.0) Seconds INR 1.3 H (0.9-1.1) Sodium 136 (136-145) mmol/L Potassium 2.8 L (3.5-5.1) mmol/L Chloride 110 H (98-107) mmol/L Carbon Dioxide (21-32) mmol/L Anion Gap TNP BUN 3 L (6-23) mg/dl Creatinine (0.6-1.2) mg/dl Est Cr Clr Drug Dosing TNP Est GFR ( Amer) TNP Est GFR (Non-Af Amer) TNP BUN/Creatinine Ratio TNP Glucose 103 H (70-99(Fasting)) mg/dl POC Glucose (70-99) mg/dl Calcium 7.1 L (8.5-10.1) mg/dl Phosphorus 2.1 L (2.5-4.9) mg/dl Magnesium 2.2 (1.7-2.4) mg/dl Total Bilirubin 28.5 H (0.2-1.0) mg/dl Direct Bilirubin 18.3 H (0-0.2) mg/dl AST 106 H (13-39) U/L ALT 29 (7-52) U/L Alkaline Phosphatase 144 H (34-104) U/L Total Protein 4.8 L (6.0-8.3) gm/dl Albumin 2.4 L (3.4-5.0) gm/dl Ethyl Alcohol mg/dL (<10.0) mg/dl SARS-CoV-2 (PCR) (Negative) Influenza Type A (PCR) (Neg) Influenza Type B (PCR) (Neg) RSV (RT-PCR) (Neg) 10/11/21 10/10/21 10/10/21 Range/Units 02:41 20:20 18:40 WBC 12.93 H (4.8-10.8) K/uL RBC 2.62 L (4.2-5.4) M/uL Hgb 9.5 L 9.3 L (12.0-16.0) g/dL Hct 29.7 L 29.4 L (37-47) % MCV 113.4 H (80-100) fL MCH 36.3 H (25-34) pg MCHC 32.0 (32-36) g/dL RDW Std Deviation 83.8 H (36.4-46.3) fL RDW Coeff of Yasmine 20.5 H (11.5-14.5) % Plt Count 233 (130-400) K/uL MPV 10.4 (7.4-10.4) fL Immature Gran % (Auto) 1.9 % Neut % (Auto) 74.9 % Lymph % (Auto) 11.9 % [place] % (Auto) 10.3 % Eos % (Auto) 0.5 % Baso % (Auto) 0.5 % Neut # (Auto) 9.68 H (1.4-6.5) K/uL Lymph # (Auto) 1.54 (1.2-3.4) K/uL [place] # (Auto) 1.33 H (0.11-0.59) K/uL Eos # (Auto) 0.07 (0-0.5) K/uL Baso # (Auto) 0.06 (0-0.2) K/uL Immature Gran # (Auto) 0.25 H (0.00-0.02) K/uL Absolute Nucleated RBC 0.02 H (0-0) K/uL Nucleated RBC % (auto) 0.2 % Polychromasia 1+ Anisocytosis Present Macrocytosis Present PT (9.0-12.0) Seconds INR (0.9-1.1) Sodium (136-145) mmol/L Potassium (3.5-5.1) mmol/L Chloride (98-107) mmol/L Carbon Dioxide (21-32) mmol/L Anion Gap BUN (6-23) mg/dl Creatinine (0.6-1.2) mg/dl Est Cr Clr Drug Dosing Est GFR ( Amer) Est GFR (Non-Af Amer) BUN/Creatinine Ratio Glucose (70-99(Fasting)) mg/dl POC Glucose 121 H (70-99) mg/dl Calcium (8.5-10.1) mg/dl Phosphorus (2.5-4.9) mg/dl Magnesium (1.7-2.4) mg/dl Total Bilirubin (0.2-1.0) mg/dl Direct Bilirubin (0-0.2) mg/dl AST (13-39) U/L ALT (7-52) U/L Alkaline Phosphatase (34-104) U/L Total Protein (6.0-8.3) gm/dl Albumin (3.4-5.0) gm/dl Ethyl Alcohol mg/dL (<10.0) mg/dl SARS-CoV-2 (PCR) (Negative) Influenza Type A (PCR) (Neg) Influenza Type B (PCR) (Neg) RSV (RT-PCR) (Neg) 10/10/21 10/10/21 Range/Units 15:50 12:22 WBC (4.8-10.8) K/uL RBC (4.2-5.4) M/uL Hgb (12.0-16.0) g/dL Hct (37-47) % MCV (80-100) fL MCH (25-34) pg MCHC (32-36) g/dL RDW Std Deviation (36.4-46.3) fL RDW Coeff of Yasmine (11.5-14.5) % Plt Count (130-400) K/uL MPV (7.4-10.4) fL Immature Gran % (Auto) % Neut % (Auto) % Lymph % (Auto) % [place] % (Auto) % Eos % (Auto) % Baso % (Auto) % Neut # (Auto) (1.4-6.5) K/uL Lymph # (Auto) (1.2-3.4) K/uL [place] # (Auto) (0.11-0.59) K/uL Eos # (Auto) (0-0.5) K/uL Baso # (Auto) (0-0.2) K/uL Immature Gran # (Auto) (0.00-0.02) K/uL Absolute Nucleated RBC (0-0) K/uL Nucleated RBC % (auto) % Polychromasia Anisocytosis Macrocytosis PT (9.0-12.0) Seconds INR (0.9-1.1) Sodium (136-145) mmol/L Potassium (3.5-5.1) mmol/L Chloride (98-107) mmol/L Carbon Dioxide (21-32) mmol/L Anion Gap BUN (6-23) mg/dl Creatinine (0.6-1.2) mg/dl Est Cr Clr Drug Dosing Est GFR ( Amer) Est GFR (Non-Af Amer) BUN/Creatinine Ratio Glucose (70-99(Fasting)) mg/dl POC Glucose (70-99) mg/dl Calcium (8.5-10.1) mg/dl Phosphorus (2.5-4.9) mg/dl Magnesium (1.7-2.4) mg/dl Total Bilirubin (0.2-1.0) mg/dl Direct Bilirubin (0-0.2) mg/dl AST (13-39) U/L ALT (7-52) U/L Alkaline Phosphatase (34-104) U/L Total Protein (6.0-8.3) gm/dl Albumin (3.4-5.0) gm/dl Ethyl Alcohol mg/dL < 10.0 (<10.0) mg/dl SARS-CoV-2 (PCR) NEGATIVE (Negative) Influenza Type A (PCR) Negative (Neg) Influenza Type B (PCR) Negative (Neg) RSV (RT-PCR) Negative (Neg) Medications Administered Amphetamine/Dextroamphetamine (Amphetamine Asp/Sulf/Dextramph 10 Mg Tab) 10 mg PO DAILY [facility] Stop: 10/25/21 08:59 Last Admin: 10/11/21 10:00 Dose: 10 mg Documented by: [id number] Amphetamine/Dextroamphetamine (Amphetamine Asp/Sulf/Dextramph 5 Mg Tab) 5 mg PO QDL [facility] Stop: 10/25/21 11:29 Last Admin: 10/11/21 13:00 Dose: 5 mg Documented by: [id number] Azelastine HCl (Azelastine Hcl 0.1% Nasal 200 Sprays/27,400 Mcg Btl) 1 sprays NA BID [facility] Stop: 11/09/21 20:59 Last Admin: 10/11/21 09:26 Dose: 1 sprays Documented by: [id number] Admin: 10/10/21 20:15 Dose: 1 sprays Documented by: [id number] Bupropion HCl (Bupropion Xl 300 Mg Tabcr) 300 mg PO QAM [facility] Stop: 11/10/21 08:59 Last Admin: 10/11/21 09:25 Dose: 300 mg Documented by: [id number] Buspirone HCl (Buspirone 5 Mg Tab) 10 mg PO TID [facility] Stop: 11/09/21 15:17 Last Admin: 10/11/21 09:24 Dose: 10 mg Documented by: [id number] Admin: 10/10/21 20:15 Dose: 10 mg Documented by: [id number] Admin: 10/10/21 17:24 Dose: 10 mg Documented by: [id number] Dextromethorphan Polymer Complex (Dextromethorphan Polymr Complx 30 Mg/5 Ml Udp) 30 mg PO Q6H PRN PRN Reason: Cough Stop: 11/09/21 15:17 Last Admin: 10/11/21 04:38 Dose: 30 mg Documented by: [id number] Fluticasone Propionate (Fluticasone Propionate Na Spr 16 Gm Btl) 2 sprays NA DAILY [facility] Stop: 11/10/21 08:59 Last Admin: 10/11/21 09:27 Dose: 2 sprays Documented by: [id number] Fluticasone/Vilanterol (Fluticasone/Vilanterol 200/25mcg 14 Puffs/Inhaler) 1 puffs INH HS [facility] Stop: 11/09/21 20:59 Last Admin: 10/10/21 20:14 Dose: 1 puffs Documented by: [id number] Gabapentin (Gabapentin 600mg Q8h Dose) 600 mg PO Q8H [facility] Stop: 10/12/21 01:01 Last Admin: 10/11/21 09:24 Dose: 600 mg Documented by: [id number] Dextrose/Sodium Chloride (D5w And Nss) 1,000 mls @ 125 mls/hr IV .Q8H [facility] Stop: 11/09/21 10:44 Last Admin: 10/11/21 08:54 Dose: 125 mls/hr Documented by: [id number] Infusion: 10/11/21 08:53 Dose: 0 mls/hr Documented by: [id number] Admin: 10/10/21 21:50 Dose: 125 mls/hr Documented by: [id number] Infusion: 10/10/21 20:29 Dose: 0 mls/hr Documented by: [id number] Admin: 10/10/21 11:34 Dose: 125 mls/hr Documented by: [id number] Thiamine HCl 100 mg/ Syringe 10 mls @ 2 mls/min IV QAM [facility] Stop: 11/09/21 15:17 Last Admin: 10/11/21 08:55 Dose: 2 mls/min Documented by: [id number] Admin: 10/10/21 17:38 Dose: 2 mls/min Documented by: [id number] Folic Acid 1 mg/ Syringe 10 mls @ 5 mls/min IV QAM [facility] Stop: 11/09/21 15:17 Last Admin: 10/11/21 08:55 Dose: 5 mls/min Documented by: [id number] Admin: 10/10/21 17:38 Dose: 5 mls/min Documented by: [id number] Lorazepam (Ativan) 1 mg in 2 mls @ 2 mls/min IV UD PRN; Protocol PRN Reason: EtOH Withdrawl AWSS Score 6,7 Stop: 11/09/21 15:17 Last Admin: 10/11/21 10:48 Dose: 2 mls/min Documented by: [id number] Admin: 10/10/21 20:13 Dose: 2 mls/min Documented by: [id number] Ceftriaxone Sodium 1,000 mg/ (Dextrose) 50 mls @ 100 mls/hr IV DAILY@1600 [facility]; Protocol Stop: 10/12/21 15:17 Last Infusion: 10/10/21 19:59 Dose: 0 mls/hr Documented by: [id number] Admin: 10/10/21 17:40 Dose: 100 mls/hr Documented by: [id number] Pantoprazole Sodium 40 mg/ (Syringe) 10 mls @ 5 mls/min IV BID [facility] Stop: 11/09/21 20:59 Last Admin: 10/11/21 08:55 Dose: 5 mls/min Documented by: [id number] Admin: 10/10/21 20:28 Dose: 5 mls/min Documented by: [id number] Loratadine (Loratadine 10 Mg Tab) 10 mg PO DAILY [facility] Stop: 11/10/21 08:59 Last Admin: 10/11/21 09:26 Dose: 10 mg Documented by: [id number] Montelukast Sodium (Montelukast Sodium 10 Mg Tablet) 10 mg PO HS [facility] Stop: 11/09/21 20:59 Last Admin: 10/10/21 20:31 Dose: 10 mg Documented by: [id number] Nicotine (Nicotine 14 Mg/24 Hr Patch) 14 mg TD DAILY [facility] Stop: 11/10/21 08:59 Last Admin: 10/11/21 09:27 Dose: 14 mg Documented by: [id number] Potassium Chloride (Potassium Chloride Crtab 20 Meq Tabcr) 40 meq PO TODAY@1032 [facility] Stop: 10/11/21 14:00 Last Admin: 10/11/21 13:00 Dose: 40 meq Documented by: [id number] Coding Level of Care Code 48563 Inpt Consult Level 3 Diagnoses Generalized anxiety disorder F41.1 Alcohol use disorder
[2021-10-11] MEDS ORDERED: traMADol HCL 50 MG TABLET PO PRN (15:00)
[2021-10-11] MEDS: POT PHOSPHATE MONOBASIC W/ SOD TAB PO SCH ×2 (16:33→20:50)
[2021-10-11] MEDS: FLUTICASONE/VILANTEROL 200/25MCG 14 PUFFS/INHALER INH SCH (19:50)
[2021-10-11] MEDS: MONTELUKAST SODIUM 10 MG TABLET PO SCH (19:53)
[2021-10-12] MEDS: DEXTROMETHORPHAN POLYMR COMPLX 30 MG/5 ML UDP PO PRN ×2 (01:21→21:53)
[2021-10-12] MEDS: D5W AND NSS 1,000 ML IV SCH (03:51)
[2021-10-12] MEDS: GABAPENTIN 600 MG TAB PO SCH ×2 (05:41→18:25)
[2021-10-12 06:24] LABS: Hematocrit (blood only) 30.5 % (37-47); Hemoglobin 9.7 g/dL (12.0-16.0); Mean Corpuscular Hemoglobin 35.9 pg (25-34); Mean Corpuscular Hgb Conc 31.8 g/dL (32-36); Mean Platelet Volume 10.2 fL (7.4-10.4); Nucleated RBC # (auto) 0.04 K/uL (0-0); Nucleated RBC % (auto) 0.3 %; Platelet Count 238 K/uL (130-400); RDW Coefficient of Variation 19.8 % (11.5-14.5); RDW Standard Deviation 81.3 fL (36.4-46.3); White Blood Count 13.49 K/uL (4.8-10.8)
[2021-10-12 07:08] LABS: Alanine Aminotransferase 25 U/L (7-52); Albumin Level 2.3 gm/dl (3.4-5.0); Alkaline Phosphatase 134 U/L (34-104); Aspartate Aminotransferase 86 U/L (13-39); Bilirubin,Total 27.7 mg/dl (0.2-1.0); Blood Urea Nitrogen 2 mg/dl (6-23); Calcium 6.8 mg/dl (8.5-10.1); Chloride 110 mmol/L (98-107); Glucose 104 mg/dl (70-99(Fasting)); Potassium 2.7 mmol/L (3.5-5.1); Sodium 136 mmol/L (136-145); Total Protein 4.7 gm/dl (6.0-8.3)
[2021-10-12 07:12] LABS: Bilirubin Direct 17.5 mg/dl (0-0.2)
[2021-10-12] MEDS: busPIRone 5 MG TAB PO SCH ×3 (07:52→19:23)
[2021-10-12] MEDS: buPROPion XL 150 MG TABCR PO SCH (07:53)
[2021-10-12] MEDS: LORATADINE 10 MG TAB PO SCH (07:53)
[2021-10-12] MEDS ORDERED: POTASSIUM CHLORIDE CRTAB 20 MEQ TABCR PO STA (07:54)
[2021-10-12] MEDS: PANTOprazole 40 MG in SYRINGE 0 ML IV SCH ×2 (07:54→19:23)
[2021-10-12] MEDS ORDERED: POTASSIUM PHOS 3 MMOL/1 ML INFUSION IV STA (07:54)
[2021-10-12] MEDS: NICOTINE 14 MG/24 HR PATCH TD SCH (07:54)
[2021-10-12] MEDS: FOLIC ACID 1 MG in SYRINGE 9.8 ML IV SCH (07:54)
[2021-10-12] MEDS: FLUTICASONE PROPIONATE NA SPR 16 GM BTL SCH (07:55)
[2021-10-12] MEDS: THIAMINE HCL 100 MG in SYRINGE 9 ML IV SCH (07:56)
[2021-10-12] MEDS: COUGH DROP (SUGAR FREE) LOZ 24 LOZ/1 BOX BUCCAL PRN (08:26)
[2021-10-12] MEDS: guaiFENesin SUGAR FREE 100 MG/5 ML UDC PO PRN ×2 (08:26→15:04)
[2021-10-12] MEDS ORDERED: POTASSIUM PHOSPHATE 21 MMOL in SODIUM CHLORIDE 0.9% 500 ML IV ONE (08:30)
[2021-10-12] MEDS: AMPHETAMINE ASP/SULF/DEXTRAMPH 10 MG TAB PO SCH (08:37)
[2021-10-12] MEDS: AZELASTINE HCL 0.1% NASAL 200 SPRAYS/27,400 MCG BTL SCH ×2 (08:37→20:14)
[2021-10-12 09:12] LABS: Phosphorus 1.6 mg/dl (2.5-4.9)
--- NOTE | 2021-10-12 10:46 | Hospitalist Progress Note ---
Date of Service October 12, 2021 Assessment & Plan (1) Rectal bleeding: Plan: Hb is stable GI evaluation noted. Endoscopy not recommended Follow up GI outpatient (2) Alcoholic hepatitis: Plan: GI evaluation noted Patient counselled again regarding alcohol use No indication for steroid therapy at this time Avoid opioid use as much as possible (3) Alcohol abuse with withdrawal: Plan: Patient not actively withdrawing at this time Thiamine/Folic Acid daily (4) Asthma: Plan: Stable Continue inhaler Albuterol prn XR on admission did not show acute process. (5) Anxiety: (6) ADD (attention deficit disorder): Plan: Continue home med Psych recs appreciated Needs to be atleast 7days since last opioid to resume naltrexone. Got opioid on admission On welbutrin taper per psych (7) Electrolyte abnormality: Plan: Hypokalemia Hypophosphatemia Due to alcohol use Replete and monitor Admission and Anticipated Discharge Date Admission Date: October 10, 2021 Subjective Patient seen and examined Reports some dry cough Denied any dizziness, chest pain, shortness of breath Reported normal brown BM today. No BRBPR. Stated slight blood on wiping only Denied dysuria, freq, urgency Still has yellow skin Patient stated she will like to go to inpatient rehab on discharge Physical Exam Constitutional: + obese; no acute distress Eyes: sclerae not anicteric ENMT: external ear and nose normal, oropharynx normal Respiratory: normal respiratory effort, lungs clear to auscultation Cardiovascular: Rate/Rhythm: regular rate and regular rhythm S1 S2 Gastrointestinal (Abdomen): normal bowel sounds, soft, nontender, no hepatosplenomegaly Musculoskeletal: no cyanosis or clubbing, extremities motor strength 5/5 Neurologic: PERRL, EOMI, accommodation nl, no face palsy, no dysarthria Results & Data Results & Data ([facility]) Vital Signs (Past 12 Hours) Vital Signs Temp Pulse Pulse Resp BP Pulse Ox 10/12/21 07:42 36.9 C 103 H 18 113/69 94 10/12/21 07:26 100 H 10/12/21 03:04 37.1 C 88 17 115/74 92 10/12/21 00:51 101 H 10/11/21 23:09 37.5 C 98 H 20 104/69 96 Laboratory Results Abnormal lab results 01/22/22 01/22/22 01/22/22 Range/Units 05:59 05:59 05:59 WBC 13.49 H (4.8-10.8) K/uL RBC 2.70 L (4.2-5.4) M/uL Hgb 9.7 L (12.0-16.0) g/dL Hct 30.5 L (37-47) % MCV 113.0 H (80-100) fL MCH 35.9 H (25-34) pg MCHC 31.8 L (32-36) g/dL RDW Std Deviation 81.3 H (36.4-46.3) fL RDW Coeff of Yasmine 19.8 H (11.5-14.5) % Absolute Nucleated RBC 0.04 H (0-0) K/uL Potassium 2.7 L (3.5-5.1) mmol/L Chloride 110 H (98-107) mmol/L BUN 2 L (6-23) mg/dl Glucose 104 H (70-99(Fasting)) mg/dl Calcium 6.8 L (8.5-10.1) mg/dl Phosphorus 1.6 L (2.5-4.9) mg/dl Total Bilirubin 27.7 H (0.2-1.0) mg/dl Direct Bilirubin 17.5 H (0-0.2) mg/dl AST 86 H (13-39) U/L Alkaline Phosphatase 134 H (34-104) U/L Total Protein 4.7 L (6.0-8.3) gm/dl Albumin 2.3 L (3.4-5.0) gm/dl (1) Alcoholic hepatitis Ascites presence: unspecified Qualified Code(s): K70.10 - Alcoholic hepatitis without ascites
[2021-10-12] MEDS: AMPHETAMINE ASP/SULF/DEXTRAMPH 5 MG TAB PO SCH (11:42)
[2021-10-12] MEDS ORDERED: GABAPENTIN 600MG Q12H DOSE PO SCH (13:00)
[2021-10-12] MEDS: ALBUTEROL HFA 8 GM INHALER INH PRN ×2 (13:30→19:59)
[2021-10-12] MEDS ORDERED: SIMETHICONE 40 MG/0.6 ML 30ML PO PRN (15:15)
[2021-10-12 16:50] LABS: iSTAT Blood Urea Nitrogen < 3 mg/dl (7-18); iSTAT Carbon Dioxide 21 mmol/L (24-31); iSTAT Chloride 111 mmol/L (101-112); iSTAT Creatinine 0.4 mg/dl (0.6-1.3); iSTAT Glucose 93 mg/dl (70-99); iSTAT Ionized Calcium 0.99 mmol/l (1.12-1.32); iSTAT Potassium 3.2 mmol/L (3.3-5.0); iSTAT Sodium 141 mmol/L (135-144)
[2021-10-12] MEDS: FLUTICASONE/VILANTEROL 200/25MCG 14 PUFFS/INHALER INH SCH (19:24)
[2021-10-12] MEDS: MONTELUKAST SODIUM 10 MG TABLET PO SCH (19:24)
[2021-10-12] MEDS: MELATONIN 3 MG TAB PO PRN (20:14)
[2021-10-13] MEDS: COUGH DROP (SUGAR FREE) LOZ 24 LOZ/1 BOX BUCCAL PRN (04:24)
[2021-10-13] MEDS: guaiFENesin SUGAR FREE 100 MG/5 ML UDC PO PRN (04:25)
[2021-10-13 06:12] LABS: Hematocrit (blood only) 31.2 % (37-47); Hemoglobin 9.7 g/dL (12.0-16.0); Mean Corpuscular Hemoglobin 36.1 pg (25-34); Mean Corpuscular Hgb Conc 31.1 g/dL (32-36); Mean Platelet Volume 10.4 fL (7.4-10.4); Nucleated RBC # (auto) 0.06 K/uL (0-0); Nucleated RBC % (auto) 0.4 %; Platelet Count 259 K/uL (130-400); RDW Coefficient of Variation 19.6 % (11.5-14.5); RDW Standard Deviation 83.2 fL (36.4-46.3); Red Blood Count 2.69 M/uL (4.2-5.4); White Blood Count 14.51 K/uL (4.8-10.8)
[2021-10-13] MEDS: GABAPENTIN 600 MG TAB PO SCH (06:22)
[2021-10-13 07:12] LABS: Bilirubin,Total 27.9 mg/dl (0.2-1.0)
[2021-10-13 07:13] LABS: Bilirubin Direct 18.8 mg/dl (0-0.2)
[2021-10-13 07:23] LABS: iSTAT Chloride 110 mmol/L (101-112); iSTAT Potassium 3.9 mmol/L (3.3-5.0); iSTAT Sodium 137 mmol/L (135-144)
[2021-10-13 07:24] LABS: iSTAT Blood Urea Nitrogen < 3 mg/dl (7-18); iSTAT Carbon Dioxide 17 mmol/L (24-31); iSTAT Creatinine 0.5 mg/dl (0.6-1.3); iSTAT Ionized Calcium 1.01 mmol/l (1.12-1.32)
[2021-10-13 07:25] LABS: iSTAT Hematocrit 29 % (37-47); iSTAT Hemoglobin 9.9 g/dl (12.0-16.0)
[2021-10-13 07:27] LABS: iSTAT Glucose 67 mg/dl (70-99)
[2021-10-13] MEDS: PANTOprazole 40 MG in SYRINGE 0 ML IV SCH ×2 (08:02→20:40)
[2021-10-13] MEDS: THIAMINE HCL 100 MG in SYRINGE 9 ML IV SCH (08:03)
[2021-10-13] MEDS: FOLIC ACID 1 MG in SYRINGE 9.8 ML IV SCH (08:03)
[2021-10-13] MEDS: buPROPion XL 150 MG TABCR PO SCH (08:04)
[2021-10-13] MEDS: LORATADINE 10 MG TAB PO SCH (08:04)
[2021-10-13] MEDS: NICOTINE 14 MG/24 HR PATCH TD SCH (08:05)
[2021-10-13] MEDS: FLUTICASONE PROPIONATE NA SPR 16 GM BTL SCH (08:06)
[2021-10-13] MEDS: AZELASTINE HCL 0.1% NASAL 200 SPRAYS/27,400 MCG BTL SCH ×2 (08:07→20:38)
[2021-10-13] MEDS ORDERED: STAT IV STA (08:53)
[2021-10-13] MEDS ORDERED: CALCIUM GLUCONATE 10% 1,000 MG in DEXTROSE 5% 50 ML IV ONE (09:15)
[2021-10-13] MEDS: AMPHETAMINE ASP/SULF/DEXTRAMPH 10 MG TAB PO SCH (10:20)
[2021-10-13] MEDS: ALBUTEROL HFA 8 GM INHALER INH PRN ×2 (10:45→17:50)
--- NOTE | 2021-10-13 10:55 | XRay Report ---
XR chest 1V portable CLINICAL HISTORY: Cough. Reassess TECHNIQUE: Single frontal radiograph of the chest was obtained. Comparison: Comparison is made to chest one view 10/10/2021 FINDINGS: No lines and tubes are seen. The cardiomediastinal silhouette is normal. Lungs are underinflated but clear. No evidence of pleural effusion or pneumothorax. IMPRESSION: No acute chest disease. ACT 112: Negative or not required by law. Electronically signed by: Carlos Sullivan M.D. 10/13/2021 10:54 AM
--- NOTE | 2021-10-13 11:23 | Hospitalist Progress Note ---
Date of Service October 13, 2021 Assessment & Plan (1) Rectal bleeding: Plan: Hb is stable GI evaluation noted. Endoscopy not recommended Rectal bleeding resolved Watery diarrhea. 2 episodes per RN. If has another, get C diff (2) Alcoholic hepatitis: Plan: GI evaluation noted Patient counselled again regarding alcohol use No indication for steroid therapy at this time Avoid opioid use as much as possible (3) Alcohol abuse with withdrawal: Plan: Patient not in withdrawal Thiamine/Folic Acid daily Patient wants to go to inpatient alcohol rehab. CM notified (4) Asthma: Plan: Stable Continue inhaler Albuterol prn XR on admission did not show acute process. Repeat XR today did not show acute process. Dry cough, chronic, worsened inpatient likely due to smoking vs URI Provided smoking cessation counselling (5) Anxiety: (6) ADD (attention deficit disorder): Plan: Continue home med Psych recs appreciated Needs to be atleast 7days since last opioid to resume naltrexone. Got opioid on admission On wellbutrin taper per psych (7) Electrolyte abnormality: Plan: Hypokalemia Hypophosphatemia Due to alcohol use Hypokalemia resolved Hypocalcemia. Replete Monitor Admission and Anticipated Discharge Date Admission Date: October 10, 2021 Subjective Patient seen and examined Reports persistent dry cough Denied any dizziness, chest pain, shortness of breath Denied dysuria, freq, urgency Reports abd discomfort mostly with dry cough Still has yellow skin Reports diarrhea overnight, watery, nonbloody Physical Exam Constitutional: + obese; no acute distress Eyes: sclerae not anicteric ENMT: external ear and nose normal, oropharynx normal Respiratory: normal respiratory effort, lungs clear to auscultation Cardiovascular: Rate/Rhythm: regular rate and regular rhythm S1 S2 Gastrointestinal (Abdomen): normal bowel sounds, soft, nontender, no hepatosplenomegaly Musculoskeletal: no cyanosis or clubbing, extremities motor strength 5/5 Pedal edema Neurologic: PERRL, EOMI, accommodation nl, no face palsy, no dysarthria Results & Data Results & Data ([facility]) Vital Signs (Past 12 Hours) Vital Signs Temp Pulse Pulse Pulse Resp BP Pulse Ox 10/13/21 10:46 100 H 18 95 10/13/21 08:00 107 H 10/13/21 07:44 37.1 C 104 H 24 115/73 94 10/13/21 03:45 37.3 C 18 101/64 94 10/12/21 23:26 102 H Pulse Ox 10/13/21 10:46 10/13/21 08:00 94 10/13/21 07:44 10/13/21 03:45 10/12/21 23:26 (1) Alcoholic hepatitis Ascites presence: unspecified Qualified Code(s): K70.10 - Alcoholic hepatitis without ascites
[2021-10-13] MEDS: guaiFENesin 600 MG TABCR PO SCH ×2 (12:32→20:40)
[2021-10-13] MEDS: AMPHETAMINE ASP/SULF/DEXTRAMPH 5 MG TAB PO SCH (12:33)
[2021-10-13] MEDS: SIMETHICONE 80 MG CHEW PO PRN ×2 (15:00→23:07)
[2021-10-13] MEDS: LOPERAMIDE HCL 2 MG CAP PO PRN ×2 (17:20→21:37)
[2021-10-13] MEDS: FLUTICASONE/VILANTEROL 200/25MCG 14 PUFFS/INHALER INH SCH (20:38)
[2021-10-13] MEDS: MELATONIN 3 MG TAB PO PRN (20:40)
[2021-10-13] MEDS: MONTELUKAST SODIUM 10 MG TABLET PO SCH (20:40)
[2021-10-13] MEDS: DEXTROMETHORPHAN POLYMR COMPLX 30 MG/5 ML UDP PO PRN (23:06)
[2021-10-14] MEDS ORDERED: GABAPENTIN 600MG X1 DOSE PO SCH (01:00)
[2021-10-14] MEDS ORDERED: GABAPENTIN 600 MG TAB PO SCH (06:00)
[2021-10-14 06:45] LABS: Alanine Aminotransferase 27 U/L (7-52); Albumin Level 2.4 gm/dl (3.4-5.0); Alkaline Phosphatase 143 U/L (34-104); Aspartate Aminotransferase 84 U/L (13-39); Bilirubin,Total 28.6 mg/dl (0.2-1.0); Blood Urea Nitrogen 3 mg/dl (6-23); Calcium 7.6 mg/dl (8.5-10.1); Chloride 107 mmol/L (98-107); Globulin 2.5 gm/dl (2.5-4.0); Glucose 77 mg/dl (70-99(Fasting)); Magnesium 2.1 mg/dl (1.7-2.4); Phosphorus 2.9 mg/dl (2.5-4.9); Potassium 2.9 mmol/L (3.5-5.1); Sodium 134 mmol/L (136-145); Total Protein 4.9 gm/dl (6.0-8.3)
[2021-10-14 06:58] LABS: INR 1.5 (0.9-1.1); Prothrombin Time 14.4 Seconds (9.0-12.0)
[2021-10-14 07:01] LABS: iSTAT Blood Urea Nitrogen < 3 mg/dl (7-18); iSTAT Chloride 108 mmol/L (101-112); iSTAT Glucose 72 mg/dl (70-99); iSTAT Sodium 135 mmol/L (135-144)
[2021-10-14 07:02] LABS: iSTAT Carbon Dioxide 19 mmol/L (24-31); iSTAT Creatinine 0.5 mg/dl (0.6-1.3); iSTAT Hematocrit 32 % (37-47); iSTAT Hemoglobin 10.9 g/dl (12.0-16.0); iSTAT Ionized Calcium 1.04 mmol/l (1.12-1.32)
[2021-10-14] MEDS: AZELASTINE HCL 0.1% NASAL 200 SPRAYS/27,400 MCG BTL SCH ×2 (08:58→20:05)
[2021-10-14] MEDS: FLUTICASONE PROPIONATE NA SPR 16 GM BTL SCH (08:58)
[2021-10-14] MEDS: THIAMINE HCL 100 MG in SYRINGE 9 ML IV SCH (08:58)
[2021-10-14] MEDS: PANTOprazole 40 MG in SYRINGE 0 ML IV SCH ×2 (08:58→20:06)
[2021-10-14] MEDS: guaiFENesin 600 MG TABCR PO SCH ×2 (08:59→20:06)
[2021-10-14] MEDS: LORATADINE 10 MG TAB PO SCH (08:59)
[2021-10-14] MEDS: NICOTINE 14 MG/24 HR PATCH TD SCH (08:59)
[2021-10-14] MEDS: FOLIC ACID 1 MG in SYRINGE 9.8 ML IV SCH (08:59)
[2021-10-14] MEDS: buPROPion XL 150 MG TABCR PO SCH (08:59)
[2021-10-14] MEDS: AMPHETAMINE ASP/SULF/DEXTRAMPH 10 MG TAB PO SCH (09:13)
[2021-10-14] MEDS: SIMETHICONE 80 MG CHEW PO PRN (10:22)
[2021-10-14] MEDS: LOPERAMIDE HCL 2 MG CAP PO PRN ×2 (10:26→20:06)
--- NOTE | 2021-10-14 10:49 | Hospitalist Progress Note ---
Date of Service October 14, 2021 Assessment & Plan (1) Rectal bleeding: Plan: Hb is stable GI evaluation noted. Endoscopy not recommended Rectal bleeding resolved Watery diarrhea. 2 episodes per RN. If has another, get C diff (2) Alcoholic hepatitis: Plan: GI evaluation noted No indication for steroid therapy at this time Avoid opioid use as much as possible AST improving over time Hyperbilirubinemia. Bilirubin still elevated. Has been in high 20s (3) Alcohol abuse with withdrawal: Plan: Patient not in withdrawal Thiamine/Folic Acid daily Patient wants to go to inpatient alcohol rehab. CM working on placement (4) Asthma: Plan: Stable Continue inhaler Albuterol prn XR on admission did not show acute process. Repeat XR did not show acute process. Dry cough, chronic, worsened inpatient likely due to smoking vs URI Provided smoking cessation counselling Continue supportive care (5) Anxiety: (6) ADD (attention deficit disorder): Plan: Continue home med Psych recs appreciated Needs to be atleast 7days since last opioid to resume naltrexone. Got opioid on admission On wellbutrin taper per psych (7) Electrolyte abnormality: Plan: Hypokalemia Hypophosphatemia Due to alcohol use Hypokalemia Replete and monitor C diff is negative. Loperamide prn diarrhea Admission and Anticipated Discharge Date Admission Date: October 10, 2021 Subjective Patient seen and examined Reports dry cough Denied any dizziness, chest pain, shortness of breath Denied dysuria, freq, urgency Reports abd discomfort associated with dry cough Still has yellow skin Reports loose stools Physical Exam Constitutional: + obese; no acute distress Eyes: sclerae not anicteric ENMT: external ear and nose normal, oropharynx normal Respiratory: normal respiratory effort, lungs clear to auscultation Cardiovascular: Rate/Rhythm: regular rate and regular rhythm S1 S2 Gastrointestinal (Abdomen): normal bowel sounds, soft, nontender, no hepatosplenomegaly Musculoskeletal: no cyanosis or clubbing, extremities motor strength 5/5 Trace pedal edema Neurologic: PERRL, EOMI, accommodation nl, no face palsy, no dysarthria Results & Data Results & Data ([facility]) Vital Signs (Past 12 Hours) Vital Signs Temp Pulse Pulse Resp BP Pulse Ox 10/14/21 08:00 97 H 10/14/21 07:02 36.9 C 94 H 16 105/69 96 10/14/21 03:13 37.4 C 101 H 15 96/60 L 97 10/14/21 01:01 103 H 10/13/21 23:55 37.4 C 102 H 15 115/70 97 Laboratory Results Abnormal lab results 10/14/21 10/14/21 10/14/21 Range/Units 05:51 05:51 05:51 POC Hgb 10.9 L (12.0-16.0) g/dl POC Hct 32 L (37-47) % PT 14.4 H (9.0-12.0) Seconds INR 1.5 H (0.9-1.1) Sodium 134 L (136-145) mmol/L POC Potassium (3.3-5.0) mmol/L Potassium 2.9 L (3.5-5.1) mmol/L POC Total CO2 19 L (24-31) mmol/L POC Anion Gap 14.0 L (16-25) mmol/L POC BUN < 3 L (7-18) mg/dl BUN 3 L (6-23) mg/dl POC Creatinine 0.5 L (0.6-1.3) mg/dl Calcium 7.6 L (8.5-10.1) mg/dl POC Ioniz Calcium Liz 1.04 L (1.12-1.32) mmol/l Total Bilirubin 28.6 H (0.2-1.0) mg/dl AST 84 H (13-39) U/L Alkaline Phosphatase 143 H (34-104) U/L Total Protein 4.9 L (6.0-8.3) gm/dl Albumin 2.4 L (3.4-5.0) gm/dl 10/14/21 Range/Units 11:20 POC Hgb 10.9 L (12.0-16.0) g/dl POC Hct 32 L (37-47) % PT (9.0-12.0) Seconds INR (0.9-1.1) Sodium (136-145) mmol/L POC Potassium 3.0 L (3.3-5.0) mmol/L Potassium (3.5-5.1) mmol/L POC Total CO2 20 L (24-31) mmol/L POC Anion Gap (16-25) mmol/L POC BUN < 3 L (7-18) mg/dl BUN (6-23) mg/dl POC Creatinine 0.5 L (0.6-1.3) mg/dl Calcium (8.5-10.1) mg/dl POC Ioniz Calcium Liz 1.10 L (1.12-1.32) mmol/l Total Bilirubin (0.2-1.0) mg/dl AST (13-39) U/L Alkaline Phosphatase (34-104) U/L Total Protein (6.0-8.3) gm/dl Albumin (3.4-5.0) gm/dl (1) Alcoholic hepatitis Ascites presence: unspecified Qualified Code(s): K70.10 - Alcoholic hepatitis without ascites
[2021-10-14] MEDS: ALBUTEROL HFA 8 GM INHALER INH PRN (11:09)
[2021-10-14 11:34] LABS: iSTAT Chloride 105 mmol/L (101-112); iSTAT Glucose 89 mg/dl (70-99); iSTAT Sodium 136 mmol/L (135-144)
[2021-10-14 11:35] LABS: iSTAT Blood Urea Nitrogen < 3 mg/dl (7-18); iSTAT Carbon Dioxide 20 mmol/L (24-31); iSTAT Creatinine 0.5 mg/dl (0.6-1.3); iSTAT Hematocrit 32 % (37-47); iSTAT Hemoglobin 10.9 g/dl (12.0-16.0)
[2021-10-14] MEDS: LIDOCAINE 5% 1 PATCH TD SCH (11:58)
[2021-10-14] MEDS: AMPHETAMINE ASP/SULF/DEXTRAMPH 5 MG TAB PO SCH (12:03)
[2021-10-14] MEDS ORDERED: POTASSIUM CHLORIDE CRTAB 20 MEQ TABCR PO STA (14:42)
[2021-10-14] MEDS: ACETAMINOPHEN 325 MG TAB PO PRN (15:58)
[2021-10-14] MEDS: FLUTICASONE/VILANTEROL 200/25MCG 14 PUFFS/INHALER INH SCH (20:06)
[2021-10-14] MEDS: MONTELUKAST SODIUM 10 MG TABLET PO SCH (20:06)
[2021-10-14] MEDS: MELATONIN 3 MG TAB PO PRN (20:06)
[2021-10-14] MEDS: DEXTROMETHORPHAN POLYMR COMPLX 30 MG/5 ML UDP PO PRN (20:06)
--- NOTE | 2021-10-14 20:36 | XRay Report ---
XR KUB/Abdomen 1 view CLINICAL HISTORY: Assess abd pain TECHNIQUE: 1 view of the abdomen was obtained. Comparison: None available at the time of this dictation. FINDINGS: Lung bases are unremarkable. The osseous structures are grossly unremarkable. The bowel gas pattern i s nonobstructive. Small stool burden is seen. IMPRESSION: Nonobstructive bowel gas pattern. ACT 112: Negative or not required by law. Electronically signed by: Carlos Sullivan M.D. 10/14/2021 8:35 PM
[2021-10-15 06:50] LABS: Hematocrit (blood only) 31.8 % (37-47); Hemoglobin 10.3 g/dL (12.0-16.0); Mean Corpuscular Hemoglobin 36.7 pg (25-34); Mean Corpuscular Hgb Conc 32.4 g/dL (32-36); Mean Corpuscular Volume 113.2 fL (80-100); Platelet Count 261 K/uL (130-400); RDW Coefficient of Variation 18.5 % (11.5-14.5); RDW Standard Deviation 76.1 fL (36.4-46.3); Red Blood Count 2.81 M/uL (4.2-5.4); White Blood Count 18.18 K/uL (4.8-10.8)
[2021-10-15 06:59] LABS: INR 1.5 (0.9-1.1); Prothrombin Time 14.8 Seconds (9.0-12.0)
[2021-10-15 07:20] LABS: Alanine Aminotransferase 26 U/L (7-52); Albumin Level 2.4 gm/dl (3.4-5.0); Alkaline Phosphatase 143 U/L (34-104); Aspartate Aminotransferase 89 U/L (13-39); Bilirubin,Total 27.9 mg/dl (0.2-1.0); Globulin 2.3 gm/dl (2.5-4.0); Magnesium 2.2 mg/dl (1.7-2.4); Total Protein 4.7 gm/dl (6.0-8.3)
[2021-10-15] MEDS: FLUTICASONE PROPIONATE NA SPR 16 GM BTL SCH (08:15)
[2021-10-15] MEDS: AZELASTINE HCL 0.1% NASAL 200 SPRAYS/27,400 MCG BTL SCH ×2 (08:15→20:11)
[2021-10-15] MEDS: FOLIC ACID 1 MG in SYRINGE 9.8 ML IV SCH (08:16)
[2021-10-15] MEDS: guaiFENesin 600 MG TABCR PO SCH ×2 (08:16→20:11)
[2021-10-15] MEDS: LORATADINE 10 MG TAB PO SCH (08:17)
[2021-10-15] MEDS: LIDOCAINE 5% 1 PATCH TD SCH (08:17)
[2021-10-15] MEDS: THIAMINE HCL 100 MG in SYRINGE 9 ML IV SCH (08:18)
[2021-10-15] MEDS: NICOTINE 14 MG/24 HR PATCH TD SCH (08:18)
[2021-10-15] MEDS: PANTOprazole 40 MG in SYRINGE 0 ML IV SCH ×2 (08:18→20:12)
[2021-10-15] MEDS: AMPHETAMINE ASP/SULF/DEXTRAMPH 5 MG TAB PO SCH ×2 (08:24→12:48)
[2021-10-15] MEDS: SIMETHICONE 80 MG CHEW PO PRN ×2 (08:27→17:00)
--- NOTE | 2021-10-15 09:56 | Ultrasound Report ---
BILATERAL LOWER EXTREMITY VENOUS DOPPLER CLINICAL HISTORY: Leg swelling. Rule out DVT COMPARISON STUDY: No previous studies for comparison. TECHNIQUE: Sonography of the deep venous system of the bilateral lower extremities was performed. Co mpression and augmentation were evaluated. FINDINGS: The bilateral common femoral, superficial femoral and popliteal veins were compressible. A ugmentation was normal. Flow was shown within the deep calf vessels. IMPRESSION: No evidence of deep venous thrombus within the bilateral lower extremities. ACT 112: Negative or not required by law. Electronically signed by: Luis Zarate M.D. 10/15/2021 9:55 AM
[2021-10-15 10:29] LABS: iSTAT Blood Urea Nitrogen < 3 mg/dl (7-18); iSTAT Carbon Dioxide 21 mmol/L (24-31); iSTAT Chloride 103 mmol/L (101-112); iSTAT Creatinine 0.6 mg/dl (0.6-1.3); iSTAT Glucose 100 mg/dl (70-99); iSTAT Potassium 3.1 mmol/L (3.3-5.0); iSTAT Sodium 136 mmol/L (135-144)
[2021-10-15 10:30] LABS: iSTAT Hematocrit 33 % (37-47); iSTAT Hemoglobin 11.2 g/dl (12.0-16.0); iSTAT Ionized Calcium 1.11 mmol/l (1.12-1.32)
[2021-10-15] MEDS ORDERED: POTASSIUM CHLORIDE CRTAB 20 MEQ TABCR PO STA (11:12)
--- NOTE | 2021-10-15 11:12 | Hospitalist Progress Note ---
Date of Service October 15, 2021 Assessment & Plan (1) Rectal bleeding: Plan: Hb is stable GI evaluation noted. Endoscopy not recommended Rectal bleeding resolved Diarrhea now resolved. C diff negative (2) Alcoholic hepatitis: Plan: GI evaluation noted No indication for steroid therapy at this time Avoid opioid use as much as possible AST improved over time Hyperbilirubinemia. Bilirubin still elevated. Has been in high 20s (3) Alcohol abuse with withdrawal: Plan: Patient not in withdrawal Thiamine/Folic Acid daily Patient wants to go to inpatient alcohol rehab. CM working on placement (4) Asthma: Plan: Stable Continue inhaler Albuterol prn XR on admission did not show acute process. Repeat XR did not show acute process. Dry cough improved Provided smoking cessation counselling Continue supportive care (5) Anxiety: (6) ADD (attention deficit disorder): Plan: Continue home med Psych recs appreciated Needs to be atleast 7days since last opioid to resume naltrexone. Got opioid on admission Tapered off welbutrin and buspirone per psych (7) Electrolyte abnormality: Plan: Hypokalemia Due to alcohol use / diarrhea Hypokalemia Replete and monitor May need po potassium replacement on dc May need some low dose diuretic over time. Holding off for now due to hypokalemia Leukocytosis - unclear etiology at this time. Could be reactive DVT - SCD/ambulate Dispo - Alcohol rehab once available. CM working on this. Has outpt appt with [facility] Admission and Anticipated Discharge Date Admission Date: October 10, 2021 Subjective Patient reports cough and abd discomfort significantly improved today Has not had any more diarrhea since overnight No chest pain Still has jaundice Denies dysuria, frequency, urgency Has leg edema Physical Exam Constitutional: + obese; no acute distress Eyes: sclerae not anicteric ENMT: external ear and nose normal, oropharynx normal Respiratory: normal respiratory effort, lungs clear to auscultation Cardiovascular: Rate/Rhythm: regular rate and regular rhythm S1 S2 Gastrointestinal (Abdomen): normal bowel sounds, soft, nontender, no hepatosplenomegaly Musculoskeletal: no cyanosis or clubbing, extremities motor strength 5/5 Leg edema Neurologic: PERRL, EOMI, accommodation nl, no face palsy, no dysarthria Results & Data Results & Data ([facility]) Vital Signs (Past 12 Hours) Vital Signs Temp Pulse Pulse Resp BP Pulse Ox 10/15/21 03:22 37.1 C 96 H 15 110/70 95 10/14/21 23:16 97 H Laboratory Results Abnormal lab results 10/15/21 10/15/21 10/15/21 Range/Units 06:34 06:34 06:34 WBC 18.18 H (4.8-10.8) K/uL RBC 2.81 L (4.2-5.4) M/uL Hgb 10.3 L (12.0-16.0) g/dL POC Hgb (12.0-16.0) g/dl Hct 31.8 L (37-47) % POC Hct (37-47) % MCV 113.2 H (80-100) fL MCH 36.7 H (25-34) pg RDW Std Deviation 76.1 H (36.4-46.3) fL RDW Coeff of Yasmine 18.5 H (11.5-14.5) % PT 14.8 H (9.0-12.0) Seconds INR 1.5 H (0.9-1.1) POC Potassium (3.3-5.0) mmol/L POC Total CO2 (24-31) mmol/L POC BUN (7-18) mg/dl POC Glucose (other) (70-99) mg/dl POC Ioniz Calcium Liz (1.12-1.32) mmol/l Total Bilirubin 27.9 H (0.2-1.0) mg/dl AST 89 H (13-39) U/L Alkaline Phosphatase 143 H (34-104) U/L Total Protein 4.7 L (6.0-8.3) gm/dl Albumin 2.4 L (3.4-5.0) gm/dl Globulin 2.3 L (2.5-4.0) gm/dl 10/15/21 Range/Units 10:03 WBC (4.8-10.8) K/uL RBC (4.2-5.4) M/uL Hgb (12.0-16.0) g/dL POC Hgb 11.2 L (12.0-16.0) g/dl Hct (37-47) % POC Hct 33 L (37-47) % MCV (80-100) fL MCH (25-34) pg RDW Std Deviation (36.4-46.3) fL RDW Coeff of Yasmine (11.5-14.5) % PT (9.0-12.0) Seconds INR (0.9-1.1) POC Potassium 3.1 L (3.3-5.0) mmol/L POC Total CO2 21 L (24-31) mmol/L POC BUN < 3 L (7-18) mg/dl POC Glucose (other) 100 H (70-99) mg/dl POC Ioniz Calcium Liz 1.11 L (1.12-1.32) mmol/l Total Bilirubin (0.2-1.0) mg/dl AST (13-39) U/L Alkaline Phosphatase (34-104) U/L Total Protein (6.0-8.3) gm/dl Albumin (3.4-5.0) gm/dl Globulin (2.5-4.0) gm/dl (1) Alcoholic hepatitis Ascites presence: unspecified Qualified Code(s): K70.10 - Alcoholic hepatitis without ascites
[2021-10-15] MEDS: FLUTICASONE/VILANTEROL 200/25MCG 14 PUFFS/INHALER INH SCH (20:11)
[2021-10-15] MEDS: MONTELUKAST SODIUM 10 MG TABLET PO SCH (20:12)
[2021-10-15] MEDS: MELATONIN 3 MG TAB PO PRN (20:31)
[2021-10-16] MEDS: AMPHETAMINE ASP/SULF/DEXTRAMPH 5 MG TAB PO SCH ×2 (08:36→12:40)
[2021-10-16] MEDS: THIAMINE HCL 100 MG in SYRINGE 9 ML IV SCH (08:37)
[2021-10-16] MEDS: PANTOprazole 40 MG in SYRINGE 0 ML IV SCH ×2 (08:37→20:39)
[2021-10-16] MEDS: SIMETHICONE 80 MG CHEW PO PRN ×2 (08:37→14:43)
[2021-10-16] MEDS: FOLIC ACID 1 MG in SYRINGE 9.8 ML IV SCH (08:37)
[2021-10-16] MEDS: guaiFENesin 600 MG TABCR PO SCH ×2 (08:37→20:39)
[2021-10-16] MEDS: AZELASTINE HCL 0.1% NASAL 200 SPRAYS/27,400 MCG BTL SCH ×2 (08:38→20:41)
[2021-10-16] MEDS: FLUTICASONE PROPIONATE NA SPR 16 GM BTL SCH (08:38)
[2021-10-16] MEDS: LIDOCAINE 5% 1 PATCH TD SCH (08:39)
[2021-10-16] MEDS: NICOTINE 14 MG/24 HR PATCH TD SCH (08:39)
[2021-10-16] MEDS: LORATADINE 10 MG TAB PO SCH (08:39)
[2021-10-16] MEDS: DEXTROMETHORPHAN POLYMR COMPLX 30 MG/5 ML UDP PO PRN (08:40)
[2021-10-16 10:05] LABS: iSTAT Chloride 104 mmol/L (101-112); iSTAT Potassium 3.2 mmol/L (3.3-5.0); iSTAT Sodium 136 mmol/L (135-144)
[2021-10-16 10:06] LABS: Hematocrit (blood only) 32.3 % (37-47); Hemoglobin 10.4 g/dL (12.0-16.0); Mean Corpuscular Hemoglobin 36.9 pg (25-34); Mean Corpuscular Hgb Conc 32.2 g/dL (32-36); Mean Corpuscular Volume 114.5 fL (80-100); Mean Platelet Volume 9.9 fL (7.4-10.4); Nucleated RBC # (auto) 0.03 K/uL (0-0); Nucleated RBC % (auto) 0.1 %; Platelet Count 258 K/uL (130-400); RDW Coefficient of Variation 18.1 % (11.5-14.5); RDW Standard Deviation 75.8 fL (36.4-46.3); Red Blood Count 2.82 M/uL (4.2-5.4); White Blood Count 21.32 K/uL (4.8-10.8)
[2021-10-16 10:06] LABS: iSTAT Blood Urea Nitrogen < 3 mg/dl (7-18); iSTAT Carbon Dioxide 20 mmol/L (24-31); iSTAT Creatinine 0.6 mg/dl (0.6-1.3); iSTAT Glucose 101 mg/dl (70-99); iSTAT Hematocrit 34 % (37-47); iSTAT Hemoglobin 11.6 g/dl (12.0-16.0)
[2021-10-16 10:47] LABS: Alanine Aminotransferase 28 U/L (7-52); Albumin Globulin Ratio 1.2 (0.9-2); Albumin Level 2.4 gm/dl (3.4-5.0); Aspartate Aminotransferase 99 U/L (13-39); Bilirubin,Total 28.9 mg/dl (0.2-1.0); Phosphorus 2.8 mg/dl (2.5-4.9); Total Protein 4.4 gm/dl (6.0-8.3)
[2021-10-16] MEDS ORDERED: POTASSIUM CHLORIDE CRTAB 20 MEQ TABCR PO ONE (12:17)
--- NOTE | 2021-10-16 13:46 | XRay Report ---
XR chest 2V PA/lateral CLINICAL HISTORY: Cough COMPARISON STUDY: Chest radiograph October 13, 2021. FINDINGS: Lung volumes are diminished, unchanged. Lungs are clear. There is no pneumothorax or pleura l effusion. Cardiac size is normal. Mediastinal contours are normal. There is no evidence for pulmona ry edema. Old left sixth rib fracture is incidentally noted. IMPRESSION: No acute cardiopulmonary findings. ACT 112: Negative or not required by law. Electronically signed by: Luis Zarate M.D. 10/16/2021 1:44 PM
--- NOTE | 2021-10-16 15:48 | CT Scan Report ---
CT OF THE ABDOMEN AND PELVIS WITHOUT CONTRAST CLINICAL HISTORY: Abdominal pain. COMPARISON STUDY: CT of the abdomen and pelvis and MRCP October 03, 2021. KUB October 14, 2021. TECHNIQUE: Axial images of the abdomen and pelvis were obtained without IV contrast. Images were revi ewed in the axial, sagittal, and coronal planes. Automated exposure control was utilized for the loan dy. A dose lowering technique was utilized adhering to the principles of ALARA. FINDINGS: Subpleural opacities within the lower lungs represent atelectasis. No pneumatosis, free air or portal venous gas is present. Evaluation of the abdomen and pelvis is suboptimal on this unenhanced exam. Body wall edema has devel oped. Hepatomegaly is noted. Liver measures 25 cm in craniocaudal dimension. There is hepatic steatos is. Slight nodularity of the liver surface is present. Mild splenomegaly is noted. Gallbladder wall t hickening is a nonspecific finding. Gallbladder is contracted. There is no evidence for acute cholecy stitis. Prominent upper abdominal lymph nodes are present. There is no hydronephrosis. No peripancrea tic fluid collections are present. Unenhanced images of the adrenal glands, kidneys and pancreas are normal with the exception of a calcification within the pancreatic head. There are no urinary calculi . The appendix is normal. There is no evidence for a bowel obstruction. Mild rectal wall thickening i s present. Sigmoid diverticulosis is noted without evidence for acute diverticulitis. There is no flu id collection to suggest an abscess. No retroperitoneal hematoma is present. No acute fracture or adrian picious osseous lesion is identified within visualized skeletal structures. A small amount of abdomin al ascites is noted. There is moderate pelvic ascites. IMPRESSION: 1. Hepatic steatosis and hepatomegaly. Slight nodularity of the liver surface may reflect developing cirrhosis. Splenomegaly. 2. Small abdominal and moderate pelvic ascites. 3. Nonspecific mild rectal wall thickening. No bowel obstruction. 4. Body wall edema which has developed since prior exam. ACT 112: Negative or not required by law. Electronically signed by: Luis Zarate M.D. 10/16/2021 3:47 PM
--- NOTE | 2021-10-16 16:18 | Hospitalist Progress Note ---
Date of Service October 16, 2021 Assessment & Plan (1) Rectal bleeding: Plan: Likely secondary to hemorrhoids Appreciate GI input Recommended EGD, colonoscopy as outpatient Stool for C. difficile negative Hb Stable Resolved currently (2) Alcoholic hepatitis: Plan: No indication for steroid therapy currently as per GI Avoid opioid use as much as possible Hyperbilirubinemia. Bilirubin remains elevated Monitor LFTs Appreciate GI Input Alcohol cessation recommended Pelvic Ascites -CT ABD:Small abdominal and moderate pelvic ascites. Nonspecific mild rectal wall thickening. No bowel obstruction. Body wall edema which has developed since prior exam Requested GI to re eval Monitor Volume status Will give a dose of lasix today (3) Alcohol abuse with withdrawal: Plan: Patient not in withdrawal Thiamine/Folic Acid daily Patient refused inpatient alcohol rehab but prefers outpatient rehab (4) Asthma: Plan: Stable Continue inhaler Albuterol prn CXR Showed no acute process Provided smoking cessation counselling Continue supportive care (5) Anxiety: (6) ADD (attention deficit disorder): Plan: Continue home meds Psych recs appreciated Needs to be atleast 7 days since last opioid to resume naltrexone. Got opioid on admission Tapered off welbutrin and buspirone per psych (7) Electrolyte abnormality: Plan: Hypokalemia Replace electrolytes as needed May need potassium supplement on discharge Leukocytosis unclear etiology Monitor DVT Px: SCD/ambulate Admission and Anticipated Discharge Date Admission Date: October 10, 2021 Subjective Patient is seen and examined at bedside States having mild cough Reported abdominal discomfort as well Denies any shortness of breath, dizziness, nausea Eager to get discharged Offers no other complaints Review of Systems Review of Systems: All systems reviewed & are unremarkable except as noted in Subjective Physical Exam Physical Exam: Physical Exam: Vitals signs as noted above General Appearance:Obese, apparent distress Head: normocephalic, Atraumatic Eyes: normal inspection, EOMI, +Icteric Neck: supple, Trachea midline Respiratory/Chest: Normal breath sounds, CTA Cardiovascular: S1, S2, No murmur Abdomen/GI:Soft, Non tender, Bowel sounds present Extremities/Musculoskeletal:normal inspection, LE edema Neurologic/Psych:AAOX3, grossly no focal neurological deficits Skin: normal color, warm Results & Data Results & Data ([facility]) Vital Signs (Past 12 Hours) Vital Signs Temp Pulse Pulse Resp BP Pulse Ox 10/16/21 15:34 36.8 C 101 H 18 110/71 98 10/16/21 10:53 36.9 C 95 H 17 104/67 95 10/16/21 08:00 96 H 10/16/21 07:27 36.9 C 96 H 17 111/70 95 Laboratory Results Short CBC 10/16/21 Range/Units 09:41 WBC 21.32 H (4.8-10.8) K/uL Hgb 10.4 L (12.0-16.0) g/dL Hct 32.3 L (37-47) % Plt Count 258 (130-400) K/uL BMP 10/16/21 09:41 Sodium Not Reportable Potassium Not Reportable Chloride Not Reportable Carbon Dioxide Not Reportable BUN Not Reportable Creatinine Not Reportable Glucose Not Reportable Calcium Not Reportable Liver Function 10/16/21 Range/Units 09:41 Total Bilirubin 28.9 H (0.2-1.0) mg/dl AST 99 H (13-39) U/L ALT 28 (7-52) U/L Alkaline Phosphatase (34-104) U/L Albumin 2.4 L (3.4-5.0) gm/dl (1) Alcoholic hepatitis Ascites presence: unspecified Qualified Code(s): K70.10 - Alcoholic hepatitis without ascites
[2021-10-16] MEDS ORDERED: KETOROLAC TROMETHAMINE 15 MG/ML VIAL IV ONE (16:29)
[2021-10-16] MEDS ORDERED: FUROSEMIDE INJ 20 MG/2 ML VIAL IV ONE (16:46)
[2021-10-16] MEDS: MELATONIN 3 MG TAB PO PRN (20:38)
[2021-10-16] MEDS: COUGH DROP (SUGAR FREE) LOZ 24 LOZ/1 BOX BUCCAL PRN (20:38)
[2021-10-16] MEDS: ACETAMINOPHEN 325 MG TAB PO PRN (20:38)
[2021-10-16] MEDS: MONTELUKAST SODIUM 10 MG TABLET PO SCH (20:39)
[2021-10-16] MEDS: FLUTICASONE/VILANTEROL 200/25MCG 14 PUFFS/INHALER INH SCH (20:40)
[2021-10-16] MEDS: oxyCODONE HCL IR 5 MG TAB (IMMEDIATE RELEASE) PO PRN (23:28)
[2021-10-17] MEDS: oxyCODONE HCL IR 5 MG TAB (IMMEDIATE RELEASE) PO PRN ×4 (04:28→21:09)
[2021-10-17 06:33] LABS: Basophils # (auto) 0.08 K/uL (0-0.2); Basophils % (auto) 0.4 %; Eosinophils # (auto) 0.24 K/uL (0-0.5); Eosinophils % (auto) 1.1 %; Hematocrit (blood only) 32.9 % (37-47); Hemoglobin 10.5 g/dL (12.0-16.0); Immature Granulocytes # (auto) 0.39 K/uL (0.00-0.02); Immature Granulocytes % (auto) 1.7 %; Lymphocytes # (auto) 1.69 K/uL (1.2-3.4); Lymphocytes % (auto) 7.5 %; Mean Corpuscular Hemoglobin 36.7 pg (25-34); Mean Corpuscular Hgb Conc 31.9 g/dL (32-36); Monocytes # (auto) 1.64 K/uL (0.11-0.59); Monocytes % (auto) 7.3 %; Neutrophils # (auto) 18.52 K/uL (1.4-6.5); Nucleated RBC # (auto) 0.03 K/uL (0-0); Nucleated RBC % (auto) 0.1 %; Platelet Count 250 K/uL (130-400); RDW Coefficient of Variation 17.9 % (11.5-14.5); RDW Standard Deviation 74.9 fL (36.4-46.3); Red Blood Count 2.86 M/uL (4.2-5.4); White Blood Count 22.56 K/uL (4.8-10.8)
[2021-10-17 06:58] LABS: Alanine Aminotransferase 30 U/L (7-52); Albumin Level 2.4 gm/dl (3.4-5.0); Aspartate Aminotransferase 106 U/L (13-39); Bilirubin,Total 27.1 mg/dl (0.2-1.0); Globulin 2.5 gm/dl (2.5-4.0); Total Protein 4.9 gm/dl (6.0-8.3)
[2021-10-17 07:00] LABS: Macrocytosis Present; Polychromasia 1+
[2021-10-17] MEDS: SIMETHICONE 80 MG CHEW PO PRN ×2 (08:30→17:03)
[2021-10-17] MEDS: FOLIC ACID 1 MG in SYRINGE 9.8 ML IV SCH (08:31)
[2021-10-17] MEDS: PANTOprazole 40 MG in SYRINGE 0 ML IV SCH ×2 (08:31→21:10)
[2021-10-17] MEDS: NICOTINE 14 MG/24 HR PATCH TD SCH (08:31)
[2021-10-17] MEDS: guaiFENesin 600 MG TABCR PO SCH ×2 (08:31→21:09)
[2021-10-17] MEDS: THIAMINE HCL 100 MG in SYRINGE 9 ML IV SCH (08:31)
[2021-10-17] MEDS: LORATADINE 10 MG TAB PO SCH (08:31)
[2021-10-17] MEDS: FLUTICASONE PROPIONATE NA SPR 16 GM BTL SCH (08:32)
[2021-10-17] MEDS: LIDOCAINE 5% 1 PATCH TD SCH (08:32)
[2021-10-17] MEDS: AZELASTINE HCL 0.1% NASAL 200 SPRAYS/27,400 MCG BTL SCH ×2 (08:32→21:11)
[2021-10-17] MEDS: AMPHETAMINE ASP/SULF/DEXTRAMPH 5 MG TAB PO SCH ×2 (08:36→12:02)
[2021-10-17] MEDS ORDERED: POTASSIUM CHLORIDE CRTAB 20 MEQ TABCR PO ONE ×2 (09:16→16:00)
[2021-10-17 10:16] LABS: iSTAT Potassium 3.2 mmol/L (3.3-5.0)
[2021-10-17 10:17] LABS: iSTAT Creatinine 0.8 mg/dl (0.6-1.3); iSTAT Hemoglobin 10.5 g/dl (12.0-16.0); iSTAT Ionized Calcium 1.07 mmol/l (1.12-1.32)
[2021-10-17] MEDS: DOXYCYCLINE HYCLATE 100 MG CAP PO SCH ×2 (10:27→21:09)
--- NOTE | 2021-10-17 10:27 | Gastroenterology Progress Note ---
Date of Service October 17, 2021 Assessment & Plan (1) Alcoholic hepatitis: (2) Abdominal pain: Plan: Pt is a 36 yo female admitted with ETOH hepatitis, re-evaluated for c/o abd pain. Noted development of body wall edema and small amt of ascites on CT abd/pelvis. She felt better w administration of Lasix yesterday. No signs of bowel obstruction. No longer having diarrhea per pt's report. - Rising WBC ? inflammatory vs infectious: would recommend repeating cultures (blood, urine) - Will repeat INR today. When [place]'s Discriminant Function score was recalculated using INR from 10/15 (1.5), the score was 40. Thus would give her a trial of Pentoxyfylline 400mg TID. Avoid using steroids given possible infectious processes since she's having leukocytosis - Monitor renal function, mental status daily - May repeat diuretics to help w body wall edema - Strict ETOh abstinence. She is open to inpt vs outpt rehab - Outpt GI f/u on 10/29 as scheduled Admission and Anticipated Discharge Date Admission Date: October 10, 2021 Supervising Physician Co-Signing Physician Notes Abd soft to palpation - slightly jaundiced appearing. Agree with pentoxyfylline tid for alcoholic hepatitis. Repeat blood cultures and agree with further plan of care as per Janki's assessment and plan. Subjective GI asked to re-evaluated pt for diffuse abd pain symptoms. Recall that she is a 36 yo female admitted with ETOH hepatitis. Initial evaluation by our GI team was done on 10/10/2021. At that time [place]'s Discriminant function score was <32 thus no indication to start glucocorticoids or pentoxyfylline. She is c/o increased abd pressure and discomfort. No n/v. She is tolerating solid meals. Was having loose stools previously but none now. No signs of any GI bleeding Noted WBC is increasing. Tbili peaked at 35 few days ago not trending back down. CT abd/pelvis showed developed of body wall edema and small amt of ascites on abdomen and pelvis areas. No bowel obstruction noted. She was given a dose of Lasix and states it helps w the abd pressure Review of Systems Review of Systems: All systems reviewed & are unremarkable except as noted in HPI & below Physical Exam Constitutional: WD/WN, vitals as above well groomed, cooperative and comfortable Eyes: PERRLA, EOMs intact, icteric sclera noted ENMT: external ear and nose normal, oropharynx normal Respiratory: normal respiratory effort, lungs clear to auscultation Cardiovascular: RRR, no murmur, no edema Gastrointestinal (Abdomen): Distended, BS present, mildly tender on palpation Skin: no rashes, warm and dry + jaundice Neurologic: Motor/Sensory: no asterixis Psychiatric: A+Ox3, euthymic affect Lymphatic: no lymphedema Results & Data ([facility]) Vital Signs (Past 12 Hours) Vital Signs Temp Pulse Pulse Resp BP BP Pulse Ox 10/17/21 08:19 83 10/17/21 07:40 37.0 C 94 H 16 110/69 95 10/17/21 04:06 37.0 C 93 H 18 102/67 96 10/17/21 00:26 96 H 10/16/21 22:48 36.8 C 71 17 99/59 L 95
[2021-10-17] MEDS: cefTRIAXone SODIUM 1,000 MG in DEXTROSE 5% 50 ML IV SCH (10:28)
[2021-10-17] MEDS ORDERED: FUROSEMIDE INJ 20 MG/2 ML VIAL IV ONE (11:38)
[2021-10-17 11:42] LABS: INR 1.6 (0.9-1.1); Prothrombin Time 15.9 Seconds (9.0-12.0)
[2021-10-17] MEDS: PENTOXIFYLLINE 400MG EXT REL TAB PO SCH ×2 (12:02→17:04)
[2021-10-17] MEDS: ALBUTEROL HFA 8 GM INHALER INH PRN (12:32)
[2021-10-17 12:40] LABS: Appearance Urine Cloudy (Clear); Bacteria Urine Automated Negative (Negative); Blood Urine Negative (Negative); Color Urine Dark Yellow; Epithelial Cell Urine Auto >30 /lpf (0-5); Glucose Urine UA Negative (Negative); Ketones Urine Negative (Negative); Leukocyte Esterase Urine Trace (Negative); Nitrite Urine Positive (Negative); Protein Urine Trace (Negative); Urobilinogen Urine Negative (Negative); WBC Urine Automated 0 /hpf (0-5); pH Urine 5.5 (4.5-7.5)
[2021-10-17 12:49] LABS: Bilirubin Urine 3+ (Negative)
[2021-10-17 13:09] LABS: Mucus Urine Present (None Prsent)
--- NOTE | 2021-10-17 17:51 | Hospitalist Progress Note ---
Date of Service October 17, 2021 Assessment & Plan (1) Rectal bleeding: Plan: Likely secondary to hemorrhoids Appreciate GI input Recommended EGD, colonoscopy as outpatient Stool for C. difficile negative Hb Stable Resolved currently (2) Alcoholic hepatitis: Plan: Avoid opioid use as much as possible Hyperbilirubinemia. Bilirubin remains elevated Monitor LFTs Appreciate GI Input Alcohol cessation recommended Started on pentoxifylline Avoid steroids given leukocytosis, possible infectious source. Needs follow-up with GI upon discharge Pelvic Ascites -CT ABD:Small abdominal and moderate pelvic ascites. Nonspecific mild rectal wall thickening. No bowel obstruction. Body wall edema which has developed since prior exam Requested GI to re eval Monitor Volume status Given Lasix X 2 Leukocytosis Unclear source Possible Bronchitis Repeat blood, urine culture Empirically started on Rocephin, doxycycline Monitor (3) Alcohol abuse with withdrawal: Plan: Patient not in withdrawal Thiamine/Folic Acid daily Patient refused inpatient alcohol rehab but prefers outpatient rehab (4) Asthma: Plan: Stable Continue inhaler Albuterol prn CXR Showed no acute process Provided smoking cessation counselling Continue supportive care (5) Anxiety: (6) ADD (attention deficit disorder): Plan: Continue home meds Psych recs appreciated Needs to be atleast 7 days since last opioid to resume naltrexone. Got opioid on admission Tapered off welbutrin and buspirone per psych (7) Electrolyte abnormality: Plan: Hypokalemia Replace electrolytes as needed May need potassium supplement on discharge DVT Px: SCD/ambulate Admission and Anticipated Discharge Date Admission Date: October 10, 2021 Subjective Patient is seen and examined at bedside Reports having transient nausea earlier today Decreased abdominal pain today Still has cough Discussed with GI today Denies any shortness of breath, dizziness Review of Systems Review of Systems: All systems reviewed & are unremarkable except as noted in Subjective Physical Exam Physical Exam: Physical Exam: Vitals signs as noted above General Appearance:Obese, apparent distress Head: normocephalic, Atraumatic Eyes: normal inspection, EOMI, +Icteric Neck: supple, Trachea midline Respiratory/Chest: Normal breath sounds, CTA Cardiovascular: S1, S2, No murmur Abdomen/GI:Soft, Non tender, Bowel sounds present Extremities/Musculoskeletal:normal inspection, LE edema Neurologic/Psych:AAOX3, grossly no focal neurological deficits Skin: normal color, warm Results & Data Results & Data ([facility]) Vital Signs (Past 12 Hours) Vital Signs Temp Pulse Pulse Resp BP BP Pulse Ox 10/17/21 15:40 37.1 C 100 H 17 99/65 L 99 10/17/21 14:50 100 H 10/17/21 12:32 104 H 19 99 10/17/21 12:11 36.7 C 96 H 18 116/76 98 10/17/21 08:19 83 10/17/21 07:40 37.0 C 94 H 16 110/69 95 Laboratory Results Short CBC 10/17/21 Range/Units 05:32 WBC 22.56 H (4.8-10.8) K/uL Hgb 10.5 L (12.0-16.0) g/dL Hct 32.9 L (37-47) % Plt Count 250 (130-400) K/uL BMP 10/17/21 05:32 Sodium Not Reportable Potassium Not Reportable Chloride Not Reportable Carbon Dioxide Not Reportable BUN Not Reportable Creatinine Not Reportable Glucose Not Reportable Calcium Not Reportable Liver Function 10/17/21 Range/Units 05:32 Total Bilirubin 27.1 H (0.2-1.0) mg/dl AST 106 H (13-39) U/L ALT 30 (7-52) U/L Alkaline Phosphatase (34-104) U/L Albumin 2.4 L (3.4-5.0) gm/dl Urine 10/17/21 Range/Units 12:00 Urine Color Dark Yellow Urine Appearance Cloudy A (Clear) Urine pH 5.5 (4.5-7.5) Ur Specific [place] 1.020 (1.000-1.030) Urine Protein Trace H (Negative) Urine Glucose (UA) Negative (Negative)
[2021-10-17] MEDS: MELATONIN 3 MG TAB PO PRN (21:10)
[2021-10-17] MEDS: MONTELUKAST SODIUM 10 MG TABLET PO SCH (21:10)
[2021-10-17] MEDS: FLUTICASONE/VILANTEROL 200/25MCG 14 PUFFS/INHALER INH SCH (21:10)
[2021-10-17] MEDS: ONDANSETRON INJ 2 MG/ML 2 ML VIAL IV PRN (22:06)
[2021-10-18] MEDS: oxyCODONE HCL IR 5 MG TAB (IMMEDIATE RELEASE) PO PRN ×5 (02:14→21:07)
[2021-10-18] MEDS: ONDANSETRON INJ 2 MG/ML 2 ML VIAL IV PRN ×4 (02:14→21:06)
[2021-10-18] MEDS: PANTOprazole 40 MG in SYRINGE 0 ML IV SCH ×2 (07:58→21:06)
[2021-10-18] MEDS: LORATADINE 10 MG TAB PO SCH (07:59)
[2021-10-18] MEDS: PENTOXIFYLLINE 400MG EXT REL TAB PO SCH ×3 (07:59→16:43)
[2021-10-18] MEDS: guaiFENesin 600 MG TABCR PO SCH ×2 (07:59→21:08)
[2021-10-18] MEDS: THIAMINE HCL 100 MG in SYRINGE 9 ML IV SCH (07:59)
[2021-10-18] MEDS: AZELASTINE HCL 0.1% NASAL 200 SPRAYS/27,400 MCG BTL SCH ×2 (08:00→21:08)
[2021-10-18] MEDS: SIMETHICONE 80 MG CHEW PO PRN ×3 (08:00→17:11)
[2021-10-18] MEDS: FLUTICASONE PROPIONATE NA SPR 16 GM BTL SCH (08:00)
[2021-10-18] MEDS: NICOTINE 14 MG/24 HR PATCH TD SCH (08:01)
[2021-10-18] MEDS: FOLIC ACID 1 MG in SYRINGE 9.8 ML IV SCH (08:01)
[2021-10-18] MEDS: LIDOCAINE 5% 1 PATCH TD SCH (08:01)
[2021-10-18] MEDS: AMPHETAMINE ASP/SULF/DEXTRAMPH 5 MG TAB PO SCH ×2 (08:12→12:14)
[2021-10-18] MEDS: DOXYCYCLINE HYCLATE 100 MG CAP PO SCH ×2 (08:28→21:07)
[2021-10-18] MEDS: cefTRIAXone SODIUM 1,000 MG in DEXTROSE 5% 50 ML IV SCH (08:28)
--- NOTE | 2021-10-18 09:31 | Gastroenterology Progress Note ---
Date of Service October 18, 2021 Assessment & Plan (1) Alcoholic hepatitis: (2) Abdominal pain: Plan: Pt is a 36 yo female admitted with ETOH hepatitis, re-evaluated for c/o abd pain. Noted development of body wall edema and small amt of ascites on CT abd/pelvis. She felt better w administration of Lasix yesterday. No signs of bowel obstruction. No longer having diarrhea per pt's report. Abd distension and discomfort improved per pt. She continues to tolerate solid meals. Had BM today - Rising WBC ? inflammatory vs infectious: F/U infectious workup - Re-calculated Maddrey Discriminant Function score is >32. Continue Pentoxyfylline 400mg TID. Avoid using steroids given possible infectious processes since she's having leukocytosis. - Monitor renal function, mental status daily - May repeat diuretics to help w body wall edema - Strict ETOh abstinence. She is open to inpt vs outpt rehab - Outpt GI f/u on 10/29 as scheduled - AM labs not available during rounds. Will follow up on this. If no acute changes, no infections, and no worsening of LFTs, then no new plans from GI today. Pls recall prn Admission and Anticipated Discharge Date Admission Date: October 10, 2021 Supervising Physician Co-Signing Physician Notes I saw and evaluated the patient. Patient does have a history of alcohol abuse and has been in the hospital for approximately 1 week. Pentoxifylline was started recently given her underlying alcoholic liver disease and suspicion for alcoholic hepatitis. The patient can likely be discharged from our perspective if the cultures are clear. The patient will follow up with one of our nurse practitioners in the office in 2 to 4 weeks as an outpatient. She will need to continue the pentoxifylline for a total of 4 to 6 weeks. The patient should be counseled to abstain from all alcohol consumption as this could result in an untimely in her case. The patient should be encouraged to attend some sort of rehabilitative program such as AA or inpatient treatment. Please call with any questions or concerns. Subjective Pt had BM this AM. Abd distension and discomfort is improved per her report. She managed to eat solid breakfast as well w/o n/v. Review of Systems 2 Review of Systems: All systems reviewed & are unremarkable except as noted in HPI & below Physical Exam Constitutional: WD/WN, vitals as above well groomed, cooperative and comfortable Eyes: PERRLA, EOMs intact, icteric sclera ENMT: external ear and nose normal, oropharynx normal Respiratory: normal respiratory effort, lungs clear to auscultation Cardiovascular: RRR, no murmur, no edema Gastrointestinal (Abdomen): Mild distension, hypoactive bowel sounds, non tender on palpation Skin: no rashes, warm and dry + jaundice Psychiatric: A+Ox3, euthymic affect Lymphatic: no lymphedema Results & Data ([facility]) Vital Signs (Past 12 Hours) Vital Signs Temp Pulse Pulse Resp BP Pulse Ox 10/18/21 08:28 36.6 C 93 H 18 110/74 97 10/18/21 07:19 91 H 10/18/21 03:18 36.7 C 95 H 20 109/68 97 10/17/21 23:01 99 H 10/17/21 22:46 36.8 C 101 H 17 117/72 95
[2021-10-18 09:49] LABS: Hematocrit (blood only) 32.6 % (37-47); Hemoglobin 10.6 g/dL (12.0-16.0); Mean Corpuscular Hemoglobin 36.9 pg (25-34); Mean Corpuscular Hgb Conc 32.5 g/dL (32-36); Mean Corpuscular Volume 113.6 fL (80-100); Mean Platelet Volume 9.9 fL (7.4-10.4); Platelet Count 236 K/uL (130-400); RDW Coefficient of Variation 17.7 % (11.5-14.5); Red Blood Count 2.87 M/uL (4.2-5.4); White Blood Count 25.79 K/uL (4.8-10.8)
[2021-10-18 10:08] LABS: iSTAT Creatinine 0.7 mg/dl (0.6-1.3); iSTAT Potassium 3.2 mmol/L (3.3-5.0)
[2021-10-18 10:09] LABS: iSTAT Hemoglobin 11.2 g/dl (12.0-16.0); iSTAT Ionized Calcium 1.02 mmol/l (1.12-1.32)
[2021-10-18 10:21] LABS: Alanine Aminotransferase 34 U/L (7-52); Albumin Level 2.4 gm/dl (3.4-5.0); Aspartate Aminotransferase 103 U/L (13-39); Globulin 2.4 gm/dl (2.5-4.0); Total Protein 4.8 gm/dl (6.0-8.3)
[2021-10-18] MEDS ORDERED: POTASSIUM CHLORIDE CRTAB 20 MEQ TABCR PO ONE (10:31)
[2021-10-18] MEDS ORDERED: FUROSEMIDE INJ 20 MG/2 ML VIAL IV ONE (12:50)
--- NOTE | 2021-10-18 17:04 | Hospitalist Progress Note ---
Date of Service October 18, 2021 Assessment & Plan (1) Rectal bleeding: Plan: Likely secondary to hemorrhoids Appreciate GI input Recommended EGD, colonoscopy as outpatient Stool for C. difficile negative Hb Stable Resolved currently (2) Alcoholic hepatitis: Plan: Avoid opioid use as much as possible Hyperbilirubinemia. Bilirubin remains elevated Monitor LFTs Appreciate GI Input Alcohol cessation recommended Avoid steroids given leukocytosis, possible infectious source. Needs follow-up with GI upon discharge Continue Pentoxifylline Pelvic Ascites -CT ABD:Small abdominal and moderate pelvic ascites. Nonspecific mild rectal wall thickening. No bowel obstruction. Body wall edema which has developed since prior exam Requested GI to re eval Monitor Volume status Lasix as needed Leukocytosis Unclear source of infection Likely Inflammation Acute Bronchitis Repeat blood Cx: No growth to date urine culture Negative Continue empiric Rocephin, doxycycline for now Monitor (3) Alcohol abuse with withdrawal: Plan: Patient not in withdrawal Thiamine/Folic Acid daily Patient refused inpatient alcohol rehab but prefers outpatient rehab (4) Asthma: Plan: Stable Continue inhaler Albuterol prn CXR Showed no acute process Provided smoking cessation counselling Continue supportive care (5) Anxiety: (6) ADD (attention deficit disorder): Plan: Continue home meds Psych recs appreciated Needs to be atleast 7 days since last opioid to resume naltrexone. Got opioid on admission Tapered off welbutrin and buspirone per psych (7) Electrolyte abnormality: Plan: Hypokalemia Replace electrolytes as needed May need potassium supplement on discharge DVT Px: SCD/ambulate Admission and Anticipated Discharge Date Admission Date: October 10, 2021 Subjective Patient is seen and examined at bedside States feeling better today Less abdominal discomfort, leg edema, abdominal distention today Minimal cough but improving Offers no other complaints Discussed with GI today Review of Systems Review of Systems: All systems reviewed & are unremarkable except as noted in Subjective Physical Exam Physical Exam: Physical Exam: Vitals signs as noted above General Appearance:Obese, apparent distress Head: normocephalic, Atraumatic Eyes: normal inspection, EOMI, +Icteric Neck: supple, Trachea midline Respiratory/Chest: Normal breath sounds, CTA Cardiovascular: S1, S2, No murmur Abdomen/GI:Soft, Non tender, Bowel sounds present Extremities/Musculoskeletal:normal inspection, LE edema Neurologic/Psych:AAOX3, grossly no focal neurological deficits Skin: normal color, warm Results & Data Results & Data ([facility]) Vital Signs (Past 12 Hours) Vital Signs Temp Pulse Pulse Resp BP Pulse Ox 10/18/21 15:58 36.3 C L 100 H 16 110/70 97 10/18/21 15:09 97 H 10/18/21 12:00 36.2 C L 96 H 16 116/78 97 10/18/21 08:28 36.6 C 93 H 18 110/74 97 10/18/21 07:19 91 H Laboratory Results Short CBC 10/18/21 Range/Units 09:30 WBC 25.79 H (4.8-10.8) K/uL Hgb 10.6 L (12.0-16.0) g/dL Hct 32.6 L (37-47) % Plt Count 236 (130-400) K/uL BMP 10/18/21 09:30 Sodium Not Reportable Potassium Not Reportable Chloride Not Reportable Carbon Dioxide Not Reportable BUN Not Reportable Creatinine Not Reportable Glucose Not Reportable Calcium Not Reportable Liver Function 10/18/21 Range/Units 09:30 Total Bilirubin 25.0 H (0.2-1.0) mg/dl AST 103 H (13-39) U/L ALT 34 (7-52) U/L Alkaline Phosphatase (34-104) U/L Albumin 2.4 L (3.4-5.0) gm/dl
[2021-10-18] MEDS: MONTELUKAST SODIUM 10 MG TABLET PO SCH (21:06)
[2021-10-18] MEDS: MELATONIN 3 MG TAB PO PRN (21:07)
[2021-10-18] MEDS: FLUTICASONE/VILANTEROL 200/25MCG 14 PUFFS/INHALER INH SCH (21:08)
[2021-10-19] MEDS: ONDANSETRON INJ 2 MG/ML 2 ML VIAL IV PRN ×4 (03:28→21:05)
[2021-10-19] MEDS: oxyCODONE HCL IR 5 MG TAB (IMMEDIATE RELEASE) PO PRN ×4 (03:28→21:05)
[2021-10-19 07:39] LABS: Hematocrit (blood only) 32.5 % (37-47); Hemoglobin 10.6 g/dL (12.0-16.0); Mean Corpuscular Hemoglobin 36.6 pg (25-34); Mean Corpuscular Hgb Conc 32.6 g/dL (32-36); Mean Corpuscular Volume 112.1 fL (80-100); Mean Platelet Volume 9.8 fL (7.4-10.4); Nucleated RBC # (auto) 0.03 K/uL (0-0); Nucleated RBC % (auto) 0.1 %; Platelet Count 237 K/uL (130-400); RDW Coefficient of Variation 17.2 % (11.5-14.5); RDW Standard Deviation 70.4 fL (36.4-46.3); White Blood Count 31.79 K/uL (4.8-10.8)
[2021-10-19 07:44] LABS: iSTAT Potassium 3.3 mmol/L (3.3-5.0)
[2021-10-19 07:45] LABS: iSTAT Creatinine 0.5 mg/dl (0.6-1.3); iSTAT Hemoglobin 11.2 g/dl (12.0-16.0); iSTAT Ionized Calcium 1.04 mmol/l (1.12-1.32)
[2021-10-19] MEDS ORDERED: CONSULT PHARMACY STA (07:46)
[2021-10-19 07:47] LABS: INR 1.6 (0.9-1.1); Prothrombin Time 16.1 Seconds (9.0-12.0)
[2021-10-19] MEDS ORDERED: PIPERACILL/TAZOBAC CONSULT ACTIVE PRN ×2 (07:53→08:17)
[2021-10-19 08:12] LABS: Alanine Aminotransferase 37 U/L (7-52); Albumin Level 2.4 gm/dl (3.4-5.0); Aspartate Aminotransferase 103 U/L (13-39); Bilirubin,Total 24.7 mg/dl (0.2-1.0); Globulin 2.5 gm/dl (2.5-4.0); Total Protein 4.9 gm/dl (6.0-8.3)
[2021-10-19] MEDS ORDERED: PIPERACILLIN/TAZOBACTAM 3.375 GM in DEXTROSE 5% 100 ML IV ONE (08:15)
[2021-10-19] MEDS: THIAMINE HCL 100 MG in SYRINGE 9 ML IV SCH (08:46)
[2021-10-19] MEDS: PANTOprazole 40 MG in SYRINGE 0 ML IV SCH ×2 (08:47→21:07)
[2021-10-19] MEDS: guaiFENesin 600 MG TABCR PO SCH ×2 (08:48→21:05)
[2021-10-19] MEDS: POTASSIUM CHLORIDE CRTAB 20 MEQ TABCR PO SCH (08:51)
[2021-10-19] MEDS: LORATADINE 10 MG TAB PO SCH (08:52)
[2021-10-19] MEDS: DOXYCYCLINE HYCLATE 100 MG CAP PO SCH ×2 (08:53→21:05)
[2021-10-19] MEDS: NICOTINE 14 MG/24 HR PATCH TD SCH (08:54)
[2021-10-19] MEDS: AMPHETAMINE ASP/SULF/DEXTRAMPH 5 MG TAB PO SCH ×2 (08:55→12:02)
[2021-10-19] MEDS: PENTOXIFYLLINE 400MG EXT REL TAB PO SCH ×4 (08:56→17:40)
[2021-10-19] MEDS: FLUTICASONE PROPIONATE NA SPR 16 GM BTL SCH (08:58)
[2021-10-19] MEDS: AZELASTINE HCL 0.1% NASAL 200 SPRAYS/27,400 MCG BTL SCH ×2 (08:58→21:08)
[2021-10-19] MEDS: FOLIC ACID 1 MG in SYRINGE 9.8 ML IV SCH (09:00)
[2021-10-19] MEDS: LIDOCAINE 5% 1 PATCH TD SCH (09:02)
--- NOTE | 2021-10-19 09:58 | XRay Report ---
XR chest 2V PA/lateral HISTORY: 36 years-old Female cough acute cough and patient with history of smoking COMPARISON: Chest radiograph 10/16/2021 TECHNIQUE: PA and lateral views of the chest FINDINGS: The cardiomediastinal and hilar silhouettes are within normal limits. No pneumothorax, pleural effusi on or overt pulmonary edema. Mild subsegmental bibasilar atelectasis. Bones of the chest appear gross ly intact. Healed chronic left-sided rib fractures. IMPRESSION: No acute process. ACT 112: Negative or not required by law. The above report was generated using voice recognition software. It may contain grammatical, syntax o r spelling errors. Electronically signed by: Bud Madera M.D. 10/19/2021 9:56 AM
[2021-10-19] MEDS: PIPERACILLIN/TAZOBACTAM 3.375 GM in DEXTROSE 5% 100 ML IV SCH ×2 (14:34→21:06)
--- NOTE | 2021-10-19 16:00 | Hospitalist Progress Note ---
Date of Service October 19, 2021 Assessment & Plan (1) Rectal bleeding: Plan: Likely secondary to hemorrhoids Appreciate GI input Recommended EGD, colonoscopy as outpatient Stool for C. difficile negative Hb Stable Resolved currently (2) Alcoholic hepatitis: Plan: Avoid opioid use as much as possible Hyperbilirubinemia. Bilirubin remains elevated Monitor LFTs Appreciate GI Input Alcohol cessation recommended Avoid steroids given leukocytosis, possible infectious source. Needs follow-up with GI upon discharge Continue Pentoxifylline Pelvic Ascites -CT ABD:Small abdominal and moderate pelvic ascites. Nonspecific mild rectal wall thickening. No bowel obstruction. Body wall edema which has developed since prior exam Requested GI to re eval Monitor Volume status Lasix as needed Leukocytosis Unclear source of infection Likely Inflammation Acute Bronchitis Repeat blood Cx: No growth to date urine culture Lactobacillus Continue Rocephin, doxycycline>>>Zosyn, Doxy CXR showed no acute process Check Peripheral smear Consider repeat Abd USD Consulted ID (3) Alcohol abuse with withdrawal: Plan: Patient not in withdrawal Thiamine/Folic Acid daily Patient refused inpatient alcohol rehab but prefers outpatient rehab (4) Asthma: Plan: Stable Continue inhaler Albuterol prn CXR Showed no acute process Provided smoking cessation counselling Continue supportive care (5) Anxiety: (6) ADD (attention deficit disorder): Plan: Continue home meds Psych recs appreciated Needs to be atleast 7 days since last opioid to resume naltrexone. Got opioid on admission Tapered off welbutrin and buspirone per psych (7) Electrolyte abnormality: Plan: Hypokalemia Replace electrolytes as needed May need potassium supplement on discharge DVT Px: SCD/ambulate Admission and Anticipated Discharge Date Admission Date: October 10, 2021 Subjective Patient is seen and examined at bedside States feeling abdomen is tight Less cough today Denies chest pain, dyspnea, dizziness Reports nausea but no vomiting Offers no other complaints Review of Systems Review of Systems: All systems reviewed & are unremarkable except as noted in Subjective Physical Exam Physical Exam: Physical Exam: Vitals signs as noted above General Appearance:Obese, apparent distress Head: normocephalic, Atraumatic Eyes: normal inspection, EOMI, +Icteric Neck: supple, Trachea midline Respiratory/Chest: Normal breath sounds, CTA Cardiovascular: S1, S2, No murmur Abdomen/GI:Soft, Non tender, distended, Bowel sounds present Extremities/Musculoskeletal:normal inspection, LE edema Neurologic/Psych:AAOX3, grossly no focal neurological deficits Skin: normal color, warm Results & Data Results & Data ([facility]) Vital Signs (Past 12 Hours) Vital Signs Temp Pulse Pulse Resp BP Pulse Ox Pulse Ox 10/19/21 15:19 36.8 C 100 H 17 118/74 99 10/19/21 15:17 102 H 10/19/21 12:35 95 H 10/19/21 11:15 37.2 C 96 H 18 103/67 97 10/19/21 08:00 94 10/19/21 07:34 37.0 C 97 H 18 119/79 94 Laboratory Results Short CBC 10/19/21 Range/Units 07:18 WBC 31.79 H* (4.8-10.8) K/uL Hgb 10.6 L (12.0-16.0) g/dL Hct 32.5 L (37-47) % Plt Count 237 (130-400) K/uL BMP 10/19/21 07:18 Sodium Not Reportable Potassium Not Reportable Chloride Not Reportable Carbon Dioxide Not Reportable BUN Not Reportable Creatinine Not Reportable Glucose Not Reportable Calcium Not Reportable Liver Function 10/19/21 Range/Units 07:18 Total Bilirubin 24.7 H (0.2-1.0) mg/dl AST 103 H (13-39) U/L ALT 37 (7-52) U/L Alkaline Phosphatase (34-104) U/L Albumin 2.4 L (3.4-5.0) gm/dl
[2021-10-19] MEDS: MELATONIN 3 MG TAB PO PRN (21:05)
[2021-10-19] MEDS: MONTELUKAST SODIUM 10 MG TABLET PO SCH (21:05)
[2021-10-19] MEDS: FLUTICASONE/VILANTEROL 200/25MCG 14 PUFFS/INHALER INH SCH (21:08)
[2021-10-20] MEDS: ONDANSETRON INJ 2 MG/ML 2 ML VIAL IV PRN ×4 (01:20→22:13)
[2021-10-20] MEDS: oxyCODONE HCL IR 5 MG TAB (IMMEDIATE RELEASE) PO PRN ×4 (01:20→20:51)
[2021-10-20] MEDS: PIPERACILLIN/TAZOBACTAM 3.375 GM in DEXTROSE 5% 100 ML IV SCH ×3 (05:45→22:13)
[2021-10-20 07:37] LABS: Hematocrit (blood only) 30.6 % (37-47); Hemoglobin 9.8 g/dL (12.0-16.0); Mean Corpuscular Hemoglobin 35.9 pg (25-34); Mean Corpuscular Volume 112.1 fL (80-100); Mean Platelet Volume 9.9 fL (7.4-10.4); Platelet Count 236 K/uL (130-400); RDW Coefficient of Variation 17.1 % (11.5-14.5); RDW Standard Deviation 69.4 fL (36.4-46.3); Red Blood Count 2.73 M/uL (4.2-5.4); White Blood Count 34.03 K/uL (4.8-10.8)
[2021-10-20 07:44] LABS: Albumin Level 2.3 gm/dl (3.4-5.0); BUN Creatinine Ratio 8.4 (10-20); Bilirubin,Total 22.4 mg/dl (0.2-1.0); Calcium 7.1 mg/dl (8.5-10.1); Creatinine Clr Calc Pharmacy 91.2 ml/min; Est GFR (African American) 106.6 ml/min; Globulin 2.2 gm/dl (2.5-4.0); Potassium 3.2 mmol/L (3.5-5.1); Total Protein 4.5 gm/dl (6.0-8.3)
[2021-10-20 07:46] LABS: Basophils # (auto) 0.05 K/uL (0-0.2); Basophils % (auto) 0.1 %; Eosinophils # (auto) 0.31 K/uL (0-0.5); Eosinophils % (auto) 0.9 %; Immature Granulocytes # (auto) 0.75 K/uL (0.00-0.02); Immature Granulocytes % (auto) 2.2 %; Lymphocytes # (auto) 2.08 K/uL (1.2-3.4); Lymphocytes % (auto) 6.1 %; Macrocytosis Present; Monocytes # (auto) 1.57 K/uL (0.11-0.59); Monocytes % (auto) 4.6 %; Neutrophils # (auto) 29.27 K/uL (1.4-6.5); Neutrophils % (auto) 86.1 %; Polychromasia 1+
[2021-10-20] MEDS: AMPHETAMINE ASP/SULF/DEXTRAMPH 5 MG TAB PO SCH ×2 (07:47→12:09)
[2021-10-20] MEDS: PANTOprazole 40 MG in SYRINGE 0 ML IV SCH ×2 (07:48→20:51)
[2021-10-20] MEDS: THIAMINE HCL 100 MG in SYRINGE 9 ML IV SCH (07:48)
[2021-10-20] MEDS: FOLIC ACID 1 MG in SYRINGE 9.8 ML IV SCH (07:49)
[2021-10-20] MEDS: POTASSIUM CHLORIDE CRTAB 20 MEQ TABCR PO SCH (07:50)
[2021-10-20] MEDS: LORATADINE 10 MG TAB PO SCH (07:50)
[2021-10-20] MEDS: PENTOXIFYLLINE 400MG EXT REL TAB PO SCH ×3 (07:51→16:55)
[2021-10-20] MEDS: DOXYCYCLINE HYCLATE 100 MG CAP PO SCH ×2 (07:52→22:13)
[2021-10-20] MEDS: NICOTINE 14 MG/24 HR PATCH TD SCH (07:53)
[2021-10-20] MEDS: guaiFENesin 600 MG TABCR PO SCH ×2 (07:53→20:51)
[2021-10-20] MEDS: LIDOCAINE 5% 1 PATCH TD SCH (07:55)
[2021-10-20] MEDS: AZELASTINE HCL 0.1% NASAL 200 SPRAYS/27,400 MCG BTL SCH ×2 (07:56→20:50)
[2021-10-20] MEDS: FLUTICASONE PROPIONATE NA SPR 16 GM BTL SCH (07:57)
[2021-10-20] MEDS ORDERED: POTASSIUM CHLORIDE CRTAB 20 MEQ TABCR PO ONE (09:06)
[2021-10-20 11:37] LABS: Influenza A virus by PCR Negative (Neg); Influenza B virus by PCR Negative (Neg); RSV by PCR Negative (Neg); SARS CoV2 RNA(COVID-19) InHosp NEGATIVE (Negative)
[2021-10-20] MEDS: ALBUTEROL HFA 8 GM INHALER INH PRN ×2 (12:27→19:29)
--- NOTE | 2021-10-20 15:01 | Ultrasound Report ---
US liver CLINICAL HISTORY: Abdominal pain. COMPARISON STUDY: Right upper quadrant ultrasound and MRCP October 03, 2021. CT of the abdomen and p dede October 16, 2021. FINDINGS: Hepatic echogenicity is increased. The liver is enlarged, measuring 24 cm in craniocaudal d imension. The main portal vein is patent. A small amount of abdominal ascites is present. There is no biliary ductal dilatation. Common bile duct measures 6 mm in caliber. The gallbladder is contracted. No gallstones are identified. Mild gallbladder wall thickening is present, accentuated by contractio n. There is no right hydronephrosis. Pancreas is largely obscured. IMPRESSION: 1. Hepatic steatosis and hepatomegaly. 2. Small amount of perihepatic ascites. 3. No gallstones or biliary ductal dilatation. Contracted gallbladder. ACT 112: Negative or not required by law. Electronically signed by: Luis Zarate M.D. 10/20/2021 2:59 PM
--- NOTE | 2021-10-20 16:52 | Hospitalist Progress Note ---
Date of Service October 20, 2021 Assessment & Plan (1) Rectal bleeding: Plan: Likely secondary to hemorrhoids Appreciate GI input Recommended EGD, colonoscopy as outpatient Stool for C. difficile negative Hb Stable Resolved currently (2) Alcoholic hepatitis: Plan: Avoid opioid use as much as possible Hyperbilirubinemia. Bilirubin remains elevated Monitor LFTs Appreciate GI Input Alcohol cessation recommended Avoid steroids given leukocytosis, possible infectious source. Needs follow-up with GI upon discharge Continue Pentoxifylline Liver USD:Hepatic steatosis and hepatomegaly. Small amount of perihepatic ascites. No gallstones or biliary ductal dilatation. Contracted gallbladder. Consider changing pentoxifylline to Prednisolone tomorrow if GI agrees Pelvic Ascites -CT ABD:Small abdominal and moderate pelvic ascites. Nonspecific mild rectal wall thickening. No bowel obstruction. Body wall edema which has developed since prior exam Requested GI to re eval Monitor Volume status Lasix as needed Leukocytosis Unclear source of infection Likely Inflammation Acute Bronchitis Repeat blood Cx: No growth to date urine culture Lactobacillus Continue Rocephin, doxycycline>>>Zosyn, Doxy CXR showed no acute process Peripheral smear--pending Consulted ID-pending Input (3) Alcohol abuse with withdrawal: Plan: Patient not in withdrawal Thiamine/Folic Acid daily Patient refused inpatient alcohol rehab but prefers outpatient rehab (4) Asthma: Plan: Stable Continue inhaler Albuterol prn CXR Showed no acute process Provided smoking cessation counselling Continue supportive care (5) Anxiety: (6) ADD (attention deficit disorder): Plan: Continue home meds Psych recs appreciated Needs to be atleast 7 days since last opioid to resume naltrexone. Got opioid on admission Tapered off welbutrin and buspirone per psych (7) Electrolyte abnormality: Plan: Hypokalemia Replace electrolytes as needed May need potassium supplement on discharge DVT Px: SCD/ambulate Admission and Anticipated Discharge Date Admission Date: October 10, 2021 Subjective Patient is seen and examined at bedside Cough about the same as yesterday Also states having generalized abdominal discomfort Discussed with GI today Denies chest pain, dyspnea, dizziness Leukocytosis trending up Review of Systems Review of Systems: All systems reviewed & are unremarkable except as noted in Subjective Physical Exam Physical Exam: Physical Exam: Vitals signs as noted above General Appearance:Obese, apparent distress Head: normocephalic, Atraumatic Eyes: normal inspection, EOMI, +Icteric Neck: supple, Trachea midline Respiratory/Chest: Normal breath sounds, CTA Cardiovascular: S1, S2, No murmur Abdomen/GI:Soft, Non tender, distended, Bowel sounds present Extremities/Musculoskeletal:normal inspection, LE edema Neurologic/Psych:AAOX3, grossly no focal neurological deficits Skin: normal color, warm Results & Data Results & Data ([facility]) Vital Signs (Past 12 Hours) Vital Signs Temp Pulse Pulse Resp BP Pulse Ox 10/20/21 15:54 99 H 10/20/21 15:42 36.5 C 102 H 18 111/73 97 10/20/21 12:28 96 H 18 96 10/20/21 11:23 36.8 C 97 H 17 116/75 96 10/20/21 09:18 90 10/20/21 08:25 37.4 C 89 20 105/67 98 Laboratory Results Short CBC 10/20/21 Range/Units 07:04 WBC 34.03 H* (4.8-10.8) K/uL Hgb 9.8 L (12.0-16.0) g/dL Hct 30.6 L (37-47) % Plt Count 236 (130-400) K/uL BMP 10/20/21 07:04 Sodium 131 L Potassium 3.2 L Chloride 102 Carbon Dioxide 21 BUN 7 Creatinine 0.83 Glucose 91 Calcium 7.1 L Liver Function 10/20/21 Range/Units 07:04 Total Bilirubin 22.4 H (0.2-1.0) mg/dl AST 94 H (13-39) U/L ALT 36 (7-52) U/L Alkaline Phosphatase 177 H (34-104) U/L Albumin 2.3 L (3.4-5.0) gm/dl
[2021-10-20] MEDS: SIMETHICONE 80 MG CHEW PO PRN (17:16)
[2021-10-20] MEDS: DEXTROMETHORPHAN POLYMR COMPLX 30 MG/5 ML UDP PO PRN (19:36)
[2021-10-20] MEDS: FLUTICASONE/VILANTEROL 200/25MCG 14 PUFFS/INHALER INH SCH (20:51)
[2021-10-20] MEDS: MONTELUKAST SODIUM 10 MG TABLET PO SCH (20:51)
[2021-10-21] MEDS: oxyCODONE HCL IR 5 MG TAB (IMMEDIATE RELEASE) PO PRN ×5 (01:23→21:03)
[2021-10-21] MEDS: PIPERACILLIN/TAZOBACTAM 3.375 GM in DEXTROSE 5% 100 ML IV SCH ×3 (05:19→21:04)
[2021-10-21] MEDS: guaiFENesin 600 MG TABCR PO SCH ×2 (08:22→21:03)
[2021-10-21] MEDS: DOXYCYCLINE HYCLATE 100 MG CAP PO SCH ×2 (08:22→21:03)
[2021-10-21] MEDS: NICOTINE 14 MG/24 HR PATCH TD SCH (08:23)
[2021-10-21] MEDS: PENTOXIFYLLINE 400MG EXT REL TAB PO SCH (08:23)
[2021-10-21] MEDS: LORATADINE 10 MG TAB PO SCH (08:23)
[2021-10-21] MEDS: POTASSIUM CHLORIDE CRTAB 20 MEQ TABCR PO SCH (08:23)
[2021-10-21] MEDS: DEXTROMETHORPHAN POLYMR COMPLX 30 MG/5 ML UDP PO PRN (08:23)
[2021-10-21] MEDS: SIMETHICONE 80 MG CHEW PO PRN ×2 (08:29→12:16)
[2021-10-21] MEDS: PANTOprazole 40 MG in SYRINGE 0 ML IV SCH ×2 (08:29→21:04)
[2021-10-21] MEDS: AMPHETAMINE ASP/SULF/DEXTRAMPH 5 MG TAB PO SCH ×2 (08:29→12:14)
[2021-10-21] MEDS: FOLIC ACID 1 MG in SYRINGE 9.8 ML IV SCH (08:30)
[2021-10-21] MEDS: THIAMINE HCL 100 MG in SYRINGE 9 ML IV SCH (08:30)
[2021-10-21] MEDS: ONDANSETRON INJ 2 MG/ML 2 ML VIAL IV PRN ×3 (08:33→21:04)
[2021-10-21] MEDS: FLUTICASONE PROPIONATE NA SPR 16 GM BTL SCH (09:27)
[2021-10-21] MEDS: AZELASTINE HCL 0.1% NASAL 200 SPRAYS/27,400 MCG BTL SCH ×2 (09:27→21:06)
[2021-10-21] MEDS: LIDOCAINE 5% 1 PATCH TD SCH (09:28)
[2021-10-21 09:44] LABS: Hemoglobin 9.7 g/dL (12.0-16.0); Mean Corpuscular Hemoglobin 36.3 pg (25-34); Mean Corpuscular Hgb Conc 32.3 g/dL (32-36); Mean Corpuscular Volume 112.4 fL (80-100); Mean Platelet Volume 9.9 fL (7.4-10.4); Nucleated RBC # (auto) 0.02 K/uL (0-0); Nucleated RBC % (auto) 0.1 %; Platelet Count 227 K/uL (130-400); RDW Coefficient of Variation 16.9 % (11.5-14.5); Red Blood Count 2.67 M/uL (4.2-5.4); White Blood Count 36.76 K/uL (4.8-10.8)
[2021-10-21 09:46] LABS: INR 1.7 (0.9-1.1); Prothrombin Time 16.7 Seconds (9.0-12.0)
[2021-10-21 10:17] LABS: iSTAT Creatinine 0.7 mg/dl (0.6-1.3); iSTAT Potassium 3.6 mmol/L (3.3-5.0)
[2021-10-21 10:18] LABS: iSTAT Hemoglobin 11.2 g/dl (12.0-16.0); iSTAT Ionized Calcium 1.01 mmol/l (1.12-1.32)
[2021-10-21 10:24] LABS: Basophils # (auto) 0.05 K/uL (0-0.2); Basophils % (auto) 0.1 %; Eosinophils # (auto) 0.28 K/uL (0-0.5); Eosinophils % (auto) 0.8 %; Immature Granulocytes # (auto) 1.14 K/uL (0.00-0.02); Immature Granulocytes % (auto) 3.1 %; Lymphocytes # (auto) 1.71 K/uL (1.2-3.4); Lymphocytes % (auto) 4.7 %; Monocytes # (auto) 1.82 K/uL (0.11-0.59); Neutrophils # (auto) 31.76 K/uL (1.4-6.5); Neutrophils % (auto) 86.3 %; Polychromasia 1+; Toxic Vacuolation 1+
[2021-10-21 10:48] LABS: Albumin Level 2.3 gm/dl (3.4-5.0); Bilirubin,Total 21.7 mg/dl (0.2-1.0); Calcium 7.1 mg/dl (8.5-10.1); Creatinine Clr Calc Pharmacy 87.5 ml/min; Est GFR (African American) 100.7 ml/min; Est GFR (Non-African American) 86.9 ml/min; Globulin 2.3 gm/dl (2.5-4.0); Total Protein 4.6 gm/dl (6.0-8.3)
[2021-10-21] MEDS: prednisoLONE sod phosphate 15 MG/5 ML PO SCH (13:16)
--- NOTE | 2021-10-21 13:58 | Ultrasound Report ---
US abdomen ltd ascites CLINICAL HISTORY: Abdominal distention. Evaluate ascites. COMPARISON STUDY: Abdominal ultrasound 10/20/2021. FINDINGS: Real-time sonographic imaging of the abdomen was performed with senior sales representative images submi tted. There is a small amount of scattered ascites seen within all 4 quadrants of the abdomen/pelvis. IMPRESSION: Small amount of scattered ascites. ACT 112: Negative or not required by law. Electronically signed by: Weston Cisneros M.D. 10/21/2021 1:57 PM
[2021-10-21] MEDS ORDERED: FUROSEMIDE INJ 20 MG/2 ML VIAL IV ONE (14:54)
--- NOTE | 2021-10-21 17:49 | Hospitalist Progress Note ---
Date of Service October 21, 2021 Assessment & Plan (1) Rectal bleeding: Plan: Likely secondary to hemorrhoids Appreciate GI input Recommended EGD, colonoscopy as outpatient Stool for C. difficile negative Hb Stable Has intermittent bleeding (2) Alcoholic hepatitis: Plan: Avoid opioid use as much as possible Hyperbilirubinemia. Bilirubin remains elevated Appreciate GI Input Alcohol cessation recommended Avoid steroids given leukocytosis, possible infectious source. Needs follow-up with GI upon discharge Continue Pentoxifylline Liver USD:Hepatic steatosis and hepatomegaly. Small amount of perihepatic ascites. No gallstones or biliary ductal dilatation. Contracted gallbladder. Pentoxifylline changed to Prednisolone as recommended by GI Monitor LFTs Pelvic Ascites -CT ABD:Small abdominal and moderate pelvic ascites. Nonspecific mild rectal wall thickening. No bowel obstruction. Body wall edema which has developed since prior exam Requested GI to re eval Monitor Volume status Lasix as needed Leukocytosis Unclear source of infection Likely Inflammation Acute Bronchitis Repeat blood Cx: No growth to date urine culture Lactobacillus Continue Rocephin, doxycycline>>>Zosyn, Doxy CXR showed no acute process Peripheral smear--Non specific leukocytosis Appreciate ID Input (3) Alcohol abuse with withdrawal: Plan: Patient not in withdrawal Thiamine/Folic Acid daily Patient refused inpatient alcohol rehab but prefers outpatient rehab (4) Asthma: Plan: Stable Continue inhaler Albuterol prn CXR Showed no acute process Provided smoking cessation counselling Continue supportive care (5) Anxiety: (6) ADD (attention deficit disorder): Plan: Continue home meds Psych recs appreciated Needs to be atleast 7 days since last opioid to resume naltrexone. Got opioid on admission Tapered off welbutrin and buspirone per psych (7) Electrolyte abnormality: Plan: Hypokalemia Replace electrolytes as needed May need potassium supplement on discharge DVT Px: SCD/ambulate Admission and Anticipated Discharge Date Admission Date: October 10, 2021 Subjective Patient is seen and examined at bedside States having abdominal pain Less cough today Discussed with GI today Denies chest pain, dyspnea, dizziness Leukocytosis continues to trend up Review of Systems Review of Systems: All systems reviewed & are unremarkable except as noted in Subjective Physical Exam Physical Exam: Physical Exam: Vitals signs as noted above General Appearance:Obese, apparent distress Head: normocephalic, Atraumatic Eyes: normal inspection, EOMI, +Icteric Neck: supple, Trachea midline Respiratory/Chest: Normal breath sounds, CTA Cardiovascular: S1, S2, No murmur Abdomen/GI:Soft, mild tender, distended, Bowel sounds present Extremities/Musculoskeletal:normal inspection, LE edema Neurologic/Psych:AAOX3, grossly no focal neurological deficits Skin: normal color, warm Results & Data Results & Data ([facility]) Vital Signs (Past 12 Hours) Vital Signs Temp Pulse Pulse Pulse Resp BP Pulse Ox 10/21/21 15:30 36.9 C 93 H 16 124/84 97 10/21/21 14:48 100 H 10/21/21 08:00 101 H 10/21/21 07:58 36.8 C 101 H 16 104/62 97 Laboratory Results Short CBC 10/21/21 Range/Units 09:20 WBC 36.76 H* (4.8-10.8) K/uL Hgb 9.7 L (12.0-16.0) g/dL Hct 30.0 L (37-47) % Plt Count 227 (130-400) K/uL BMP 10/21/21 09:20 Sodium 128 L Potassium Chloride 101 Carbon Dioxide 19 L BUN 7 Creatinine 0.87 Glucose 101 H Calcium 7.1 L Liver Function 10/21/21 Range/Units 09:20 Total Bilirubin 21.7 H (0.2-1.0) mg/dl AST (13-39) U/L ALT (7-52) U/L Alkaline Phosphatase 197 H (34-104) U/L Albumin 2.3 L (3.4-5.0) gm/dl
[2021-10-21] MEDS: MELATONIN 3 MG TAB PO PRN (21:03)
[2021-10-21] MEDS: FLUTICASONE/VILANTEROL 200/25MCG 14 PUFFS/INHALER INH SCH (21:04)
[2021-10-21] MEDS: MONTELUKAST SODIUM 10 MG TABLET PO SCH (21:06)
[2021-10-22] MEDS: oxyCODONE HCL IR 5 MG TAB (IMMEDIATE RELEASE) PO PRN ×6 (01:17→23:45)
[2021-10-22] MEDS: PIPERACILLIN/TAZOBACTAM 3.375 GM in DEXTROSE 5% 100 ML IV SCH ×3 (05:48→21:06)
[2021-10-22] MEDS: ONDANSETRON INJ 2 MG/ML 2 ML VIAL IV PRN ×3 (05:53→21:07)
[2021-10-22] MEDS: AMPHETAMINE ASP/SULF/DEXTRAMPH 5 MG TAB PO SCH ×2 (07:45→12:43)
[2021-10-22] MEDS: POTASSIUM CHLORIDE CRTAB 20 MEQ TABCR PO SCH (07:46)
[2021-10-22] MEDS: THIAMINE HCL 100 MG in SYRINGE 9 ML IV SCH (07:46)
[2021-10-22] MEDS: FOLIC ACID 1 MG in SYRINGE 9.8 ML IV SCH (07:46)
[2021-10-22] MEDS: PANTOprazole 40 MG in SYRINGE 0 ML IV SCH ×2 (07:46→21:07)
[2021-10-22] MEDS: LORATADINE 10 MG TAB PO SCH (07:47)
[2021-10-22] MEDS: guaiFENesin 600 MG TABCR PO SCH ×2 (07:47→21:07)
[2021-10-22] MEDS: NICOTINE 14 MG/24 HR PATCH TD SCH (07:48)
[2021-10-22] MEDS: DOXYCYCLINE HYCLATE 100 MG CAP PO SCH (07:48)
[2021-10-22] MEDS: LIDOCAINE 5% 1 PATCH TD SCH (07:48)
[2021-10-22] MEDS: FLUTICASONE PROPIONATE NA SPR 16 GM BTL SCH (07:51)
[2021-10-22] MEDS: AZELASTINE HCL 0.1% NASAL 200 SPRAYS/27,400 MCG BTL SCH ×2 (07:51→21:08)
[2021-10-22] MEDS: SIMETHICONE 80 MG CHEW PO PRN ×2 (07:57→18:21)
[2021-10-22 09:45] LABS: iSTAT Creatinine 0.7 mg/dl (0.6-1.3); iSTAT Hemoglobin 10.5 g/dl (12.0-16.0); iSTAT Potassium 3.3 mmol/L (3.3-5.0)
[2021-10-22 09:58] LABS: Hematocrit (blood only) 30.5 % (37-47); Hemoglobin 9.8 g/dL (12.0-16.0); Mean Corpuscular Hgb Conc 32.1 g/dL (32-36); Mean Corpuscular Volume 112.1 fL (80-100); Platelet Count 247 K/uL (130-400); RDW Coefficient of Variation 16.5 % (11.5-14.5); RDW Standard Deviation 67.3 fL (36.4-46.3); Red Blood Count 2.72 M/uL (4.2-5.4); White Blood Count 41.82 K/uL (4.8-10.8)
[2021-10-22 10:00] LABS: Basophils # (auto) 0.04 K/uL (0-0.2); Basophils % (auto) 0.1 %; Eosinophils # (auto) 0.15 K/uL (0-0.5); Eosinophils % (auto) 0.4 %; Immature Granulocytes # (auto) 1.07 K/uL (0.00-0.02); Immature Granulocytes % (auto) 2.6 %; Lymphocytes % (auto) 4.8 %; Macrocytosis Present; Monocytes # (auto) 1.71 K/uL (0.11-0.59); Monocytes % (auto) 4.1 %; Neutrophils # (auto) 36.85 K/uL (1.4-6.5); Polychromasia 1+; Toxic Vacuolation 1+
--- NOTE | 2021-10-22 10:05 | Gastroenterology Progress Note ---
Date of Service October 22, 2021 Assessment & Plan (1) Alcoholic hepatitis: (2) Abdominal distention: Plan: Continue prednisolone 40mg daily. Continue <2Gm Na diet. Continue to watch for s/s of infection. Will get Abd x-rays. Increase ambulation, decrease use of narcotics. Recheck CBC, LFTs, PT/INR tomorrow. Admission and Anticipated Discharge Date Admission Date: October 10, 2021 Supervising Physician Co-Signing Physician Notes I saw and evaluated the patient. She has a history of alcoholic hepatitis and her bilirubin does seem to be improving as it is now 21. We had started the patient on pentoxifylline last week however she seems to have problems with nausea as a result. Thus we are transitioning the patient to prednisolone. Please continue to monitor the patient's labs and advance her diet as tolerated. Would recommend low-sodium diet. She does have abdominal discomfort and we would suggest further evaluation with an abdominal x-ray to screen for evidence of an ileus as her ultrasound showed no evidence of large volume ascites. Subjective 36 yr female ETOH hepatitis. Most recent ETOH intake about a month ago. Eating/drinking OK. Awake, alert. walking about 2x/day. On [place] 10/17->10/21. Changed to Prednisolone yesterday (had improved on [place]; pt c/o nausea on [place]al). bili 21. WBC 36. Urine culture with only lactobacillus and Blood Cx and CXR normal. Abdominal distention past few days, though is passing BMs a few times/day. Not on lactulose. US w/o significant amt of ascites. Hypoactive BS on exam. Review of Systems Review of Systems: ROS: Gen: + some generalized weakness but is improving; no fevers, weight loss Eyes: No eye redness, or pain, no recent vision changes Resp: No SOB, no cough Cardio: No palpitations/irregular beats, no chest pain GI: per HPI, otherwise (-) : Denies pain on urination Skin: + jaundice Physical Exam Constitutional: well developed, + ill appearing and cooperative Eyes: PERRL icteric ENMT: external ear and nose normal, oropharynx normal Respiratory: normal respiratory effort, lungs clear to auscultation Cardiovascular: RRR, no murmur, no edema Gastrointestinal (Abdomen): Inspection/Auscultation: + abdomen distended and + hypoactive bowel sounds Percussion/Palpation: + abdomen tender (diffusely); no guarding, abdomen not rigid and no ascites Skin: + jaundice; no rashes, no ulcers and no pallor Neurologic: PERRL, EOMI, accommodation nl, no face palsy, no dysarthria awake; not confused Psychiatric: A+Ox3, euthymic affect Results & Data ([facility]) Vital Signs (Past 12 Hours) Vital Signs Temp Pulse Pulse Resp BP BP Pulse Ox 10/22/21 07:40 37 C 87 18 103/62 96 10/22/21 04:07 37.0 C 91 H 16 113/73 95 10/21/21 23:34 97 H 10/21/21 23:30 36.5 C 93 H 20 119/70 97 Laboratory Results WBC 36, Hb 11.2, Hct 30, Plts 227, PT16, INR 1.7, Na 131, K 128, Cl 101, CO2 19 BUN 7, Cr 0.87, glucose 101. Diagnostic Findings Ab US 10/21/21: US abdomen ltd ascites RUQ US 10/20/21: . Hepatic steatosis and hepatomegaly. 2. Small amount of perihepatic ascites. 3. No gallstones or biliary ductal dilatation. Contracted gallbladder.
[2021-10-22] MEDS: prednisoLONE sod phosphate 15 MG/5 ML PO SCH (10:07)
[2021-10-22 11:19] LABS: Alanine Aminotransferase 39 U/L (7-52); Albumin Level 2.3 gm/dl (3.4-5.0); Alkaline Phosphatase 192 U/L (34-104); Anion Gap 9 (3-11); BUN Creatinine Ratio 10.5 (10-20); Bilirubin,Total 20.3 mg/dl (0.2-1.0); Blood Urea Nitrogen 9 mg/dl (6-23); Calcium 7.1 mg/dl (8.5-10.1); Carbon Dioxide 20 mmol/L (21-32); Chloride 100 mmol/L (98-107); Creatinine Clr Calc Pharmacy 87.8 ml/min; Est GFR (African American) 102.2 ml/min; Est GFR (Non-African American) 88.1 ml/min; Globulin 2.4 gm/dl (2.5-4.0); Glucose 131 mg/dl (70-99(Fasting)); Sodium 129 mmol/L (136-145); Total Protein 4.7 gm/dl (6.0-8.3)
--- NOTE | 2021-10-22 11:50 | XRay Report ---
XR abdomen 2V w PA chest CLINICAL HISTORY: abdominal distention. COMPARISON STUDY: Chest radiograph from 10/19/2021 TECHNIQUE: Single view of the chest. Supine and upright views of the abdomen. FINDINGS: Single frontal view of the chest demonstrates the cardiomediastinal silhouette to be within normal li mits. The lungs are clear of acute alveolar opacities. There is no evidence for pleural effusion. The re is no evidence for vascular congestion. There is no acute osseous pathology. Abdomen: There is no free air or significant air-fluid levels present. There is diffuse haziness of t he abdomen suspicious for ascites. The bowel loops are centrally placed which would correlate with th e presence of ascites. There is no evidence for bowel loop dilatation or obstruction. There is no kendall dence for organomegaly or gross intra-abdominal mass. No abnormal calcifications are seen along the c ourse of the urinary tracts bilaterally. No acute osseous pathology. IMPRESSION: 1. No acute chest disease. 2. Diffuse haziness of the abdomen with centrally placed bowel loops suspicious for the presence of a scites. ACT 112: Negative or not required by law. Electronically signed by: Rashel Vann M.D. 10/22/2021 11:49 AM
--- NOTE | 2021-10-22 16:07 | CT Scan Report ---
CT SCAN OF THE ABDOMEN AND PELVIS WITHOUT IV CONTRAST CLINICAL HISTORY: Generalized abdominal pain. Distention. COMPARISON STUDY: Abdominal CT dated 10/16/2021. TECHNIQUE: CT scan of the abdomen and pelvis is performed from the lung bases to the proximal femora. Images are reviewed in the axial, sagittal, and coronal planes. IV contrast was not administered for this examination as per the referring clinician. Note that the examination was performed in suboptim al fashion without oral and IV contrast. A dose lowering technique was utilized adhering to the [facility] [place]. CT DOSE: 661.01 mGy.cm FINDINGS: Lung bases: The heart is normal in size and without pericardial effusion. There are trace pleural eff usions with bibasilar atelectasis. Liver: The unenhanced liver is enlarged, measuring 24 cm in length. The liver demonstrates heterogene ously diminished attenuation consistent with steatosis. Nodularity of the surface contour indicates m orphologic change of cirrhosis. There is no intrahepatic biliary ductal dilatation. Gallbladder: Gallbladder is contracted. Mild wall thickening is nonspecific and likely related to cir rhosis and ascites. Spleen: The spleen is enlarged measuring 15 cm in length.. Pancreas: The unenhanced pancreas is mildly atrophic and grossly unremarkable. Adrenal glands: Unremarkable. Kidneys: The unenhanced kidneys are normal in size and without hydronephrosis. There are no renal juani culi identified. There is no evidence of contour deforming renal mass lesion. Abdominal vasculature: The abdominal aorta is normal in course and caliber. Bowel: There is mild colonic diverticulosis without CT evidence of acute diverticulitis. No bowel obs truction is identified. Submucosal fat deposition throughout the colon is nonspecific but has been de scribed in the setting of chronic inflammation. The appendix is well-visualized and normal. Peritoneum: There is a small volume of abdominopelvic ascites. This has increased from 10/16/2021. No intraperitoneal free air is identified. There is a fat-containing umbilical hernia. Lymphadenopathy: Mildly enlarged upper abdominal lymph nodes are likely related to chronic liver dise ase. Pelvic viscera: The bladder, uterus, and adnexa are normal as visualized. There are small fat-contain ing inguinal hernias, right larger than left. Skeletal structures: No lytic or blastic lesions are seen. There is a right-sided pars defect at L5. An osteochondroma arises from the right posterior 11th rib. Soft tissues: There is mild body wall edema. IMPRESSION: 1. The liver is enlarged, steatotic, and cirrhotic in morphology. 2. Splenomegaly. 3. There is a small volume of abdominopelvic ascites, which has modestly increased from 10/16/2021. 4. Colonic diverticulosis without CT evidence of acute diverticulitis. 5. Additional findings as above. ACT 112: Negative or not required by law. Electronically signed by: Brodie Gillis M.D. 10/22/2021 4:05 PM
--- NOTE | 2021-10-22 17:30 | Hospitalist Progress Note ---
Date of Service October 22, 2021 Assessment & Plan (1) Rectal bleeding: Plan: Likely secondary to hemorrhoids Appreciate GI input Recommended EGD, colonoscopy as outpatient Stool for C. difficile negative Hb Stable Has intermittent bleeding Monitor CBC (2) Alcoholic hepatitis: Plan: Avoid opioid use as much as possible Hyperbilirubinemia. Bilirubin remains elevated Appreciate GI Input Alcohol cessation recommended Avoid steroids given leukocytosis, possible infectious source. Needs follow-up with GI upon discharge Continue Pentoxifylline Liver USD:Hepatic steatosis and hepatomegaly. Small amount of perihepatic ascites. No gallstones or biliary ductal dilatation. Contracted gallbladder. Pentoxifylline changed to Prednisolone as recommended by GI due to Intolerance to pentoxifylline Monitor LFTs Repeat CT showed enlarged liver,, sclerotic, cirrhotic morphology. Also noted splenomegaly and small volume abdominal ascites. Total bilirubin decreased to 20.3 today Pelvic Ascites -CT ABD:Small abdominal and moderate pelvic ascites. Nonspecific mild rectal wall thickening. No bowel obstruction. Body wall edema which has developed since prior exam Requested GI to re eval Monitor Volume status Lasix as needed Leukocytosis Unclear source of infection Likely Inflammation Acute Bronchitis Repeat blood Cx: No growth to date urine culture Lactobacillus Completed doxycycline course Continue Rocephin>>>Zosyn CXR showed no acute process Peripheral smear--Non specific leukocytosis Appreciate ID Input (3) Alcohol abuse with withdrawal: Plan: Patient not in withdrawal Thiamine/Folic Acid daily Patient refused inpatient alcohol rehab but prefers outpatient rehab (4) Asthma: Plan: Stable Continue inhaler Albuterol prn CXR Showed no acute process Provided smoking cessation counselling Continue supportive care (5) Anxiety: (6) ADD (attention deficit disorder): Plan: Continue home meds Psych recs appreciated Needs to be atleast 7 days since last opioid to resume naltrexone. Got opioid on admission Tapered off welbutrin and buspirone per psych (7) Electrolyte abnormality: Plan: Hypokalemia Replace electrolytes as needed May need potassium supplement on discharge DVT Px: SCD/ambulate Admission and Anticipated Discharge Date Admission Date: October 10, 2021 Subjective Patient is seen and examined at bedside Updated patient's family at bedside Discussed with GI today Patient continues to have abdominal discomfort Cough slowly improving No other complaints Review of Systems Review of Systems: All systems reviewed & are unremarkable except as noted in Subjective Physical Exam Physical Exam: Physical Exam: Vitals signs as noted above General Appearance:Obese, apparent distress Head: normocephalic, Atraumatic Eyes: normal inspection, EOMI, +Icteric Neck: supple, Trachea midline Respiratory/Chest: Normal breath sounds, CTA Cardiovascular: S1, S2, No murmur Abdomen/GI:Soft, mild tender, distended, Bowel sounds present Extremities/Musculoskeletal:normal inspection, LE edema Neurologic/Psych:AAOX3, grossly no focal neurological deficits Skin: normal color, warm Results & Data Results & Data ([facility]) Vital Signs (Past 12 Hours) Vital Signs Temp Pulse Pulse Resp BP BP Pulse Ox 10/22/21 15:23 36.9 C 90 19 128/78 97 10/22/21 15:00 104 H 10/22/21 10:47 36.8 C 69 16 153/68 H 96 10/22/21 07:40 37 C 87 18 103/62 96 10/22/21 06:30 91 H Laboratory Results Short CBC 10/22/21 Range/Units 09:12 WBC 41.82 H* (4.8-10.8) K/uL Hgb 9.8 L (12.0-16.0) g/dL Hct 30.5 L (37-47) % Plt Count 247 (130-400) K/uL BMP 10/22/21 09:12 Sodium 129 L Potassium TNP Chloride 100 Carbon Dioxide 20 L BUN 9 Creatinine 0.86 Glucose 131 H Calcium 7.1 L Liver Function 10/22/21 Range/Units 09:12 Total Bilirubin 20.3 H (0.2-1.0) mg/dl AST TNP ALT 39 (7-52) U/L Alkaline Phosphatase 192 H (34-104) U/L Albumin 2.3 L (3.4-5.0) gm/dl
[2021-10-22] MEDS: MELATONIN 3 MG TAB PO PRN (21:07)
[2021-10-22] MEDS: FLUTICASONE/VILANTEROL 200/25MCG 14 PUFFS/INHALER INH SCH (21:07)
[2021-10-22] MEDS: MONTELUKAST SODIUM 10 MG TABLET PO SCH (21:07)
[2021-10-23] MEDS: ONDANSETRON INJ 2 MG/ML 2 ML VIAL IV PRN ×2 (05:44→21:56)
[2021-10-23] MEDS: oxyCODONE HCL IR 5 MG TAB (IMMEDIATE RELEASE) PO PRN ×4 (05:44→21:57)
[2021-10-23] MEDS: PIPERACILLIN/TAZOBACTAM 3.375 GM in DEXTROSE 5% 100 ML IV SCH ×3 (06:02→21:56)
[2021-10-23] MEDS: AMPHETAMINE ASP/SULF/DEXTRAMPH 5 MG TAB PO SCH ×2 (08:23→12:02)
[2021-10-23] MEDS: prednisoLONE sod phosphate 15 MG/5 ML PO SCH (08:26)
[2021-10-23] MEDS: LORATADINE 10 MG TAB PO SCH (08:26)
[2021-10-23] MEDS: NICOTINE 14 MG/24 HR PATCH TD SCH (08:26)
[2021-10-23] MEDS: POTASSIUM CHLORIDE CRTAB 20 MEQ TABCR PO SCH (08:27)
[2021-10-23] MEDS: FOLIC ACID 1 MG in SYRINGE 9.8 ML IV SCH (08:27)
[2021-10-23] MEDS: THIAMINE HCL 100 MG in SYRINGE 9 ML IV SCH (08:28)
[2021-10-23] MEDS: guaiFENesin 600 MG TABCR PO SCH ×2 (08:28→21:58)
[2021-10-23] MEDS: LIDOCAINE 5% 1 PATCH TD SCH (08:28)
[2021-10-23] MEDS: PANTOprazole 40 MG in SYRINGE 0 ML IV SCH ×2 (08:28→21:59)
[2021-10-23] MEDS: FLUTICASONE PROPIONATE NA SPR 16 GM BTL SCH (08:29)
[2021-10-23] MEDS: AZELASTINE HCL 0.1% NASAL 200 SPRAYS/27,400 MCG BTL SCH ×2 (08:29→21:52)
[2021-10-23 09:45] LABS: Hematocrit (blood only) 30.4 % (37-47); Hemoglobin 9.9 g/dL (12.0-16.0); Mean Corpuscular Hemoglobin 36.7 pg (25-34); Mean Corpuscular Hgb Conc 32.6 g/dL (32-36); Mean Corpuscular Volume 112.6 fL (80-100); Mean Platelet Volume 9.8 fL (7.4-10.4); Platelet Count 241 K/uL (130-400); RDW Coefficient of Variation 16.5 % (11.5-14.5)
[2021-10-23 09:46] LABS: INR 1.5 (0.9-1.1); Prothrombin Time 15.2 Seconds (9.0-12.0)
[2021-10-23 10:05] LABS: Albumin Level 2.2 gm/dl (3.4-5.0); Bilirubin,Total 18.1 mg/dl (0.2-1.0); Globulin 2.3 gm/dl (2.5-4.0); Total Protein 4.5 gm/dl (6.0-8.3)
[2021-10-23 10:06] LABS: BUN Creatinine Ratio 12.1 (10-20); Creatinine Clr Calc Pharmacy 83.5 ml/min; Est GFR (African American) 95.4 ml/min; Est GFR (Non-African American) 82.3 ml/min
[2021-10-23 10:07] LABS: Potassium 3.2 mmol/L (3.5-5.1)
--- NOTE | 2021-10-23 10:16 | Gastroenterology Progress Note ---
Date of Service October 23, 2021 Assessment & Plan (1) Alcoholic hepatitis: (2) Abdominal distention: Plan: Continue prednisolone 40mg daily. Continue <2Gm Na diet. Continue to watch for s/s of infection. Will order US for paracentesis but doubt that there is a large enough fluid pocket. Will order cell count, cx. Consider repeating blood/urine cx and CXR. Increase ambulation, decrease use of narcotics. Recheck CBC, LFTs, PT/INR tomorrow. Admission and Anticipated Discharge Date Admission Date: October 10, 2021 Supervising Physician Co-Signing Physician Notes I saw and evaluated the patient. She has a history of alcoholic hepatitis and is now having a slow but steady improvement of her bilirubin. We would recommend continued use of the prednisolone as this does seem to be really valuable in her case. The patient did have a noncontrast CT of the abdomen performed yesterday which showed minimal ascites and evidence of colonic wall thickening or perhaps stranding. We will make arrangements for an outpatient colonoscopy once the patient's alcoholic hepatitis has improved. Subjective 36 yr female ETOH hepatitis, most recent alcohol about a month ago. Eating/drinking OK. Awake, alert. walking about 2x/day. On [place] 10/17->10/21. Changed to Prednisolone Thursday (had improved on ; pt c/o nausea on ). bili slowly improving, today 18.1, but WBC decreasing, 41 now 34. Seen by ID: recommend paracentesis if possible. Urine culture with only lactobacillus and Blood Cx and CXR normal. Abdominal distention past few days, though is passing BMs a few times/day. Not on lactulose. US w/o significant amt of ascites. Hypoactive BS on exam. Pt frustrated by edema, abdominal distention. Asks questions such as: was the "liver function study checked?" Requests IP colonoscopy stating that ID told her that her elevated WBC is from a bowel problem. Asks for a paracentesis. Pt is cooperative and interactive, but verbalizes frustration. Review of Systems 2 Review of Systems: ROS: Gen: + some generalized weakness but is improving; no fevers, weight loss Eyes: No eye redness, or pain, no recent vision changes Resp: No SOB, no cough Cardio: No palpitations/irregular beats, no chest pain; + edema GI: per HPI, otherwise (-) : Denies pain on urination Skin: + jaundice Physical Exam Constitutional: well developed, + ill appearing and cooperative Eyes: PERRL ENMT: external ear and nose normal, oropharynx normal Respiratory: normal respiratory effort, lungs clear to auscultation Cardiovascular: RRR, no murmur, no edema Gastrointestinal (Abdomen): Inspection/Auscultation: + abdomen distended and + hypoactive bowel sounds Percussion/Palpation: + abdomen tender (diffusely); no guarding, abdomen not rigid and no ascites Skin: + jaundice; no rashes, no ulcers and no pallor Neurologic: PERRL, EOMI, accommodation nl, no face palsy, no dysarthria awake; not confused Psychiatric: A+Ox3, euthymic affect Lymphatic: no cervical or axillary lymphadenopathy Results & [facility] ([facility]) Vital Signs (Past 12 Hours) Vital Signs Temp Pulse Pulse Resp BP BP Pulse Ox 10/23/21 06:25 36.8 C 94 H 18 114/76 97 10/23/21 03:46 36.9 C 86 17 111/73 94 10/22/21 23:09 94 H 10/22/21 22:47 36.8 C 94 H 19 106/70 94 Laboratory Results WBC 41, Hb 10, Hct 30, Plts 47, T Bili 20.3, AP 192 PT 15 INR 1.5 Na 131, K 3.2, Cl 101, CO2 18, BUN 11, Cr 0.91, glucose 131. Diagnostic Findings CTAP non contrast 10/22/21: 1. The liver is enlarged, steatotic, and cirrhotic in morphology. 2. Splenomegaly. 3. There is a small volume of abdominopelvic ascites, which has modestly increased from 10/16/2021. 4. Colonic diverticulosis without CT evidence of acute diverticulitis.
[2021-10-23 10:31] LABS: iSTAT Ionized Calcium 1.04 mmol/l (1.12-1.32); iSTAT Potassium 3.2 mmol/L (3.3-5.0)
[2021-10-23 10:32] LABS: iSTAT Creatinine 0.8 mg/dl (0.6-1.3); iSTAT Hemoglobin 10.9 g/dl (12.0-16.0)
[2021-10-23 10:59] LABS: Basophils # (auto) 0.03 K/uL (0-0.2); Basophils % (auto) 0.1 %; Eosinophils # (auto) 0.24 K/uL (0-0.5); Eosinophils % (auto) 0.7 %; Lymphocytes # (auto) 1.89 K/uL (1.2-3.4); Lymphocytes % (auto) 5.5 %; Monocytes # (auto) 1.34 K/uL (0.11-0.59); Monocytes % (auto) 3.9 %; Neutrophils % (auto) 87.8 %
[2021-10-23 11:00] LABS: Macrocytosis Present; Polychromasia 1+
--- NOTE | 2021-10-23 13:56 | Ultrasound Report ---
ULTRASOUND-GUIDED DIAGNOSTIC AND THERAPEUTIC PARACENTESIS: HISTORY: Ascites. Procedure: The procedure and its risks, benefits and alternatives were discussed with the patient and written informed consent was obtained. Preliminary ultrasound of the abdomen was performed to determ ine a safe needle entry site. The left lower quadrant was prepped and draped in the usual sterile fashion. 1% Lidocaine was used fo r local anesthesia. A paracentesis needle-sheath was inserted into the peritoneal space using ultraso und guidance. The needle was removed and the sheath was connected to tubing and a vacuum suction ed ce. A total of 1.5 liters of yellow/brown ascites was aspirated. The sheath was removed and a sterile dressing applied. The patient tolerated the procedure well and there were no immediate complications. IMPRESSION: Ultrasound-guided therapeutic paracentesis with aspiration of 1.5 liters of ascites. 1 L was sent to the laboratory for further analysis at the request of the referring physician. ACT 112: Negative or not required by law. Electronically signed by: Weston Cisneros M.D. 10/23/2021 1:54 PM
[2021-10-23 14:39] LABS: Appearance Peritoneal Fluid CLEAR; Color Peritoneal Fluid YELLOW; RBC Peritoneal Fluid (A) < 3000 /uL; WBC Peritoneal Fluid (A) 98 /ul (0-300)
[2021-10-23 14:40] LABS: Lymphocytes, Fluid 6 %; Neutrophils, Fluid 50 %
[2021-10-23 14:41] LABS: Basophils, Fluid 0 %; Eosinophils, Fluid 1 %; Mono,Macrophage,Mesothelial 43 %
[2021-10-23 14:45] LABS: Albumin Peritoneal Fluid < 0.6 g/dl; Total Protein Peritoneal Fluid 1.5 g/dl
--- NOTE | 2021-10-23 15:19 | Hospitalist Progress Note ---
Date of Service October 23, 2021 Assessment & Plan (1) Rectal bleeding: Plan: Likely secondary to hemorrhoids Appreciate GI input Recommended EGD, colonoscopy as outpatient Stool for C. difficile negative Hb Stable Has intermittent bleeding Monitor CBC-hemoglobin remains stable (2) Alcoholic hepatitis: Plan: Avoid opioid use as much as possible Hyperbilirubinemia. Bilirubin remains elevated Appreciate GI Input and recommendation Alcohol cessation recommended Started on pentoxifylline and later on discontinued Liver USD:Hepatic steatosis and hepatomegaly. Small amount of perihepatic ascites. No gallstones or biliary ductal dilatation. Contracted gallbladder. Pentoxifylline changed to Prednisolone as recommended by GI due to Intolerance to pentoxifylline Monitor LFTs-minimal improvement especially with bilirubin Repeat CT showed enlarged liver,, sclerotic, cirrhotic morphology. Also noted splenomegaly and small volume abdominal ascites. Bilirubin level has decreased to 18.1 as of 10/23/21 Pelvic Ascites -CT ABD:Small abdominal and moderate pelvic ascites. Nonspecific mild rectal wall thickening. No bowel obstruction. Body wall edema which has developed since prior exam Requested GI to re eval Monitor Volume status Lasix as needed Will have paracentesis and study of the fluid to rule out any infection Leukocytosis Unclear source of infection and likely contributed by use of prednisone Likely Inflammation Acute Bronchitis Repeat blood Cx: No growth to date urine culture Lactobacillus Completed doxycycline course Continue Rocephin>>>Zosyn CXR showed no acute process Peripheral smear--Non specific leukocytosis Appreciate ID Input and recommendation White cell count has been improving (3) Alcohol abuse with withdrawal: Plan: Patient not in withdrawal Thiamine/Folic Acid daily Patient refused inpatient alcohol rehab but prefers outpatient rehab (4) Asthma: Plan: Stable Continue inhaler Albuterol prn CXR Showed no acute process Provided smoking cessation counselling Continue supportive care (5) Anxiety: (6) ADD (attention deficit disorder): Plan: Continue home meds Psych recs appreciated Needs to be atleast 7 days since last opioid to resume naltrexone. Got opioid on admission Tapered off welbutrin and buspirone per psych (7) Electrolyte abnormality: Plan: Hypokalemia Replace electrolytes as needed May need potassium supplement on discharge DVT Px: SCD/ambulate Admission and Anticipated Discharge Date Admission Date: October 10, 2021 Subjective 10/23/2021 The patient was seen and examined in telemetry unit She complains to abdominal distention and discomfort and feels bloated Denies any fever and/or chills, no nausea and or vomiting Denies any problem with urine and or bowel habit Review of Systems Review of Systems: All systems reviewed and are unremarkable except as noted below Gastrointestinal: Abdominal distention with bloating Physical Exam Physical Exam: Lying in bed with discomfort secondary to abdominal distention and discomfort Constitutional: well developed, well nourished, + ill appearing and + obese Eyes: Severe jaundiced ENMT: external ear and nose normal, oropharynx normal Neck: trachea midline, no thyromegaly Respiratory: no respiratory distress Auscultation: lungs clear to auscultation bilaterally Cardiovascular: Rate/Rhythm: regular rate, regular rhythm and + tachycardic Heart Sounds: normal S1 and normal S2; no murmur Extremities: + edema (1+ edema bilaterally. More confined to ankles) Gastrointestinal (Abdomen): Inspection/Auscultation: + abdomen distended, + abdominal edema and + hypoactive bowel sounds Percussion/Palpation: + abdomen tender and + ascites (Moderate to severe ascites) Musculoskeletal: No acute arthritis in any joint Neurologic: Alert, awake and oriented x3 Results & Data Results & Data ([facility]) Vital Signs (Past 12 Hours) Vital Signs Temp Pulse Pulse Resp BP BP Pulse Ox 10/23/21 10:31 37.1 C 104 H 16 113/78 96 10/23/21 07:00 92 H 10/23/21 06:25 36.8 C 94 H 18 114/76 97 10/23/21 03:46 36.9 C 86 17 111/73 94 Laboratory Results Short CBC 10/23/21 Range/Units 09:03 WBC 34.20 H* (4.8-10.8) K/uL Hgb 9.9 L (12.0-16.0) g/dL Hct 30.4 L (37-47) % Plt Count 241 (130-400) K/uL BMP 10/23/21 09:03 Sodium 128 L Potassium 3.2 L Chloride 101 Carbon Dioxide 19 L BUN 11 Creatinine 0.91 Glucose 146 H Calcium 7.0 L Liver Function 10/23/21 Range/Units 09:03 Total Bilirubin 18.1 H (0.2-1.0) mg/dl AST 100 H (13-39) U/L ALT 45 (7-52) U/L Alkaline Phosphatase 237 H (34-104) U/L Albumin 2.2 L (3.4-5.0) gm/dl Medications Administered Current Inpatient Medications Acetaminophen (Acetaminophen 325 Mg Tab) 650 mg PO TID PRN PRN Reason: Pain Stop: 11/13/21 15:29 Last Admin: 10/16/21 20:38 Dose: 650 mg Documented by: Albuterol (Albuterol Hfa 8 Gm Inhaler) 2 puffs INH Q6H PRN PRN Reason: shortness of breath Stop: 11/11/21 12:59 Last Admin: 10/20/21 19:29 Dose: 2 puffs Documented by: Amphetamine/Dextroamphetamine (Amphetamine Asp/Sulf/Dextramph 5 Mg Tab) 5 mg PO QDL JUAN Stop: 10/25/21 11:29 Last Admin: 10/23/21 12:02 Dose: 5 mg Documented by: Amphetamine/Dextroamphetamine (Amphetamine Asp/Sulf/Dextramph 5 Mg Tab) 10 mg PO Q24H JUAN Stop: 10/29/21 07:29 Last Admin: 10/23/21 08:23 Dose: 10 mg Documented by: Azelastine HCl (Azelastine Hcl 0.1% Nasal 200 Sprays/27,400 Mcg Btl) 1 sprays NA BID JUAN Stop: 11/09/21 20:59 Last Admin: 10/23/21 08:29 Dose: 1 sprays Documented by: Dextromethorphan Polymer Complex (Dextromethorphan Polymr Complx 30 Mg/5 Ml Udp) 30 mg PO Q6H PRN PRN Reason: Cough Stop: 11/09/21 15:17 Last Admin: 10/21/21 08:23 Dose: 30 mg Documented by: Dextrose (Dextrose 50% 50 Ml Syringe) 25 - 50 ml IV UD PRN; Protocol PRN Reason: Hypoglycemia Protocol Stop: 11/09/21 15:17 Fluticasone Propionate (Fluticasone Propionate Na Spr 16 Gm Btl) 2 sprays NA DAILY JUAN Stop: 11/10/21 08:59 Last Admin: 10/23/21 08:29 Dose: 2 sprays Documented by: Fluticasone/Vilanterol (Fluticasone/Vilanterol 200/25mcg 14 Puffs/Inhaler) 1 puffs INH HS JUAN Stop: 11/09/21 20:59 Last Admin: 10/22/21 21:07 Dose: 1 puffs Documented by: Glucagon (Glucagon For Inj 1 Mg Vial) 1 mg SQ UD PRN; Protocol PRN Reason: Hypoglycemia Protocol Stop: 11/09/21 15:17 Glucose (Glucose 10 Tabs/Tube) 4 - 8 tabs PO UD PRN; Protocol PRN Reason: Hypoglycemia Protocol Stop: 11/09/21 15:17 Glucose (Glucose 40% Gel 15 Gm Tube) 15 - 30 gm PO UD PRN; Protocol PRN Reason: Hypoglycemia Protocol Stop: 11/09/21 15:17 Guaifenesin (Guaifenesin 600 Mg Tabcr) 1,200 mg PO BID [facility] Stop: 11/12/21 10:59 Last Admin: 10/23/21 08:28 Dose: 1,200 mg Documented by: Thiamine HCl 100 mg/ Syringe 10 mls @ 2 mls/min IV QAM [facility] Stop: 11/09/21 15:17 Last Admin: 10/23/21 08:28 Dose: 2 mls/min Documented by: Folic Acid 1 mg/ Syringe 10 mls @ 5 mls/min IV QAM [facility] Stop: 11/09/21 15:17 Last Admin: 10/23/21 08:27 Dose: 5 mls/min Documented by: Pantoprazole Sodium 40 mg/ (Syringe) 10 mls @ 5 mls/min IV BID [facility] Stop: 11/09/21 20:59 Last Admin: 10/23/21 08:28 Dose: 5 mls/min Documented by: Piperacillin Sod/Tazobactam (Sod 3.375 gm/ Dextrose) 115 mls @ 28.75 mls/hr IV Q8H [facility]; Protocol Stop: 10/29/21 13:59 Last Admin: 10/23/21 14:59 Dose: 28.8 mls/hr Documented by: Lidocaine (Lidocaine 5% 1 Patch) 1 patch TD QAM [facility] Stop: 11/13/21 10:44 Last Admin: 10/23/21 08:28 Dose: Not Given Documented by: Loperamide HCl (Loperamide Hcl 2 Mg Cap) 2 mg PO TID PRN PRN Reason: Diarrhea Stop: 11/12/21 17:04 Last Admin: 10/14/21 20:06 Dose: 2 mg Documented by: Loratadine (Loratadine 10 Mg Tab) 10 mg PO DAILY [facility] Stop: 11/10/21 08:59 Last Admin: 10/23/21 08:26 Dose: 10 mg Documented by: Melatonin (Melatonin 3 Mg Tab) 3 mg PO HS PRN PRN Reason: Sleep Stop: 11/11/21 19:48 Last Admin: 10/22/21 21:07 Dose: 3 mg Documented by: Menthol (Cough Drop (Sugar Free) Barbara 24 Barbara/1 Box) 1 barbara BUCCAL NOW PRN PRN Reason: Cough Stop: 11/11/21 08:05 Last Admin: 10/16/21 20:38 Dose: 1 barbara Documented by: Miscellaneous (Carbohydrates For Hypoglycemia ) 15 - 30 gm PO UD PRN PRN Reason: Hypoglycemia Protocol Stop: 11/09/21 15:17 Miscellaneous (Remove Lidoderm Patch) 1 ea N/A DAILY@2100 [facility] Stop: 11/13/21 20:59 Last Admin: 10/22/21 21:08 Dose: Not Given Documented by: Miscellaneous Information (Piperacill/Tazobac Consult Active) 1 ea N/A UD PRN PRN Reason: Consult Stop: 11/18/21 08:16 Montelukast Sodium (Montelukast Sodium 10 Mg Tablet) 10 mg PO HS [facility] Stop: 11/09/21 20:59 Last Admin: 10/22/21 21:07 Dose: 10 mg Documented by: Nicotine (Nicotine 14 Mg/24 Hr Patch) 14 mg TD DAILY [facility] Stop: 11/10/21 08:59 Last Admin: 10/23/21 08:26 Dose: 14 mg Documented by: Ondansetron HCl (Ondansetron Inj 2 Mg/Ml 2 Ml Vial) 4 mg IV Q6H PRN PRN Reason: NAUSEA/VOMITING Stop: 11/16/21 21:29 Last Admin: 10/23/21 05:44 Dose: 4 mg Documented by: Oxycodone HCl (Oxycodone Hcl Ir 5 Mg Tab (Immediate Release)) 5 mg PO Q4H PRN PRN Reason: Pain Stop: 10/30/21 20:29 Last Admin: 10/23/21 10:37 Dose: 5 mg Documented by: Potassium Chloride (Potassium Chloride Crtab 20 Meq Tabcr) 20 meq PO QAM [facility] Stop: 11/18/21 08:59 Last Admin: 10/23/21 08:27 Dose: 20 meq Documented by: Prednisolone Sodium Phosphate (Prednisolone Sod Phosphate 15 Mg/5 Ml) 40 mg PO DAILY JUAN Stop: 11/20/21 12:29 Last Admin: 10/23/21 08:26 Dose: 40 mg Documented by: Simethicone (Simethicone 80 Mg Chew) 40 mg PO QID PRN PRN Reason: Bloating/Gas retention Stop: 11/12/21 14:35 Last Admin: 10/22/21 18:21 Dose: 40 mg Documented by:
[2021-10-23] MEDS: FLUTICASONE/VILANTEROL 200/25MCG 14 PUFFS/INHALER INH SCH (21:56)
[2021-10-23] MEDS: MELATONIN 3 MG TAB PO PRN (21:57)
[2021-10-23] MEDS: MONTELUKAST SODIUM 10 MG TABLET PO SCH (22:00)
[2021-10-24] MEDS: oxyCODONE HCL IR 5 MG TAB (IMMEDIATE RELEASE) PO PRN ×5 (03:32→22:17)
[2021-10-24] MEDS: PIPERACILLIN/TAZOBACTAM 3.375 GM in DEXTROSE 5% 100 ML IV SCH ×3 (05:31→22:18)
[2021-10-24] MEDS: AMPHETAMINE ASP/SULF/DEXTRAMPH 5 MG TAB PO SCH ×2 (08:04→12:29)
[2021-10-24] MEDS: FOLIC ACID 1 MG in SYRINGE 9.8 ML IV SCH (08:08)
[2021-10-24] MEDS: guaiFENesin 600 MG TABCR PO SCH ×2 (08:08→20:03)
[2021-10-24] MEDS: LIDOCAINE 5% 1 PATCH TD SCH (08:09)
[2021-10-24] MEDS: LORATADINE 10 MG TAB PO SCH (08:11)
[2021-10-24] MEDS: NICOTINE 14 MG/24 HR PATCH TD SCH (08:11)
[2021-10-24] MEDS: PANTOprazole 40 MG in SYRINGE 0 ML IV SCH ×2 (08:12→20:03)
[2021-10-24] MEDS: AZELASTINE HCL 0.1% NASAL 200 SPRAYS/27,400 MCG BTL SCH ×2 (08:13→20:02)
[2021-10-24] MEDS: FLUTICASONE PROPIONATE NA SPR 16 GM BTL SCH (08:13)
[2021-10-24] MEDS: prednisoLONE sod phosphate 15 MG/5 ML PO SCH (08:14)
[2021-10-24] MEDS: POTASSIUM CHLORIDE CRTAB 20 MEQ TABCR PO SCH (08:14)
[2021-10-24] MEDS: THIAMINE HCL 100 MG in SYRINGE 9 ML IV SCH (08:15)
[2021-10-24] MEDS: ONDANSETRON INJ 2 MG/ML 2 ML VIAL IV PRN (08:22)
--- NOTE | 2021-10-24 10:38 | Gastroenterology Progress Note ---
Date of Service October 24, 2021 Assessment & Plan (1) Abdominal distention: (2) Alcoholic hepatitis: Plan: Ordered repeat US paracentesis per pt request (pt states that radiologist told her yesterday that other pockets could be drained). Low salt diet. No alcohol - complete, permanent abstention. Reviewed with patient. Encouraged structured counseling/rehab. Encouraged to ambulate. Planning for OP EGD, Colonoscopy next week as previously arranged. Would recheck labs tomorrow and if WBC and bili still decreasing (or not significantly increased) then would suggest that pt has likely reached maximum hospital benefit and could be discharged to self care. Admission and Anticipated Discharge Date Admission Date: October 10, 2021 Supervising Physician Co-Signing Physician Notes I saw and evaluated the patient. She does appear to be slightly improved today although we have no labs for comparison. Would recommend continued monitoring and perhaps discharge tomorrow if the patient's bilirubin continues to fall. Her abdominal discomfort could be related to the fact that she is not moving much and perhaps the patient would benefit from a physical therapy evaluation. Subjective 36 yr old female with ETOH hepatitis. Tx with prednisolone. Paracentesis yesterday with removal of 1.7L. No evidence of SBP (90 WBCs, 50% neutrophils, cx pending) Labs not drawn this morning, but yesterday both WBC and T Bili were elevated but were both improving. CT on 10/22 w/o significant abnormalities. Pt is very uncomfortable - avoids moving around in bed, prefers to roll vs sit up (when provider listens to lungs). ON exam, abd is distended but not rigid and pt is diffusely uncomfortable. Review of Systems Review of Systems: ROS: Gen: + weakness, fevers, weight loss Eyes: No eye redness, or pain, no recent vision changes Resp: No SOB, no cough Cardio: No palpitations/irregular beats, no chest pain GI: As per HPI, otherwise (-). : Denies pain on urination Skin: + jaundice. No itching or new rashes Physical Exam Constitutional: well developed, + ill appearing and cooperative Eyes: PERRL, conjunctivae normal, anicteric sclerae Neck: trachea midline, no thyromegaly Respiratory: normal respiratory effort, lungs clear to auscultation Cardiovascular: Rate/Rhythm: regular rate and regular rhythm Heart Sounds: no murmur Extremities: + edema (1+ bilat lower leg edema) Gastrointestinal (Abdomen): Percussion/Palpation: + abdomen tender (Mild diffuse adbdominal msk tenderness. No signs of acute abdomen.) and abdomen soft; no guarding and abdomen not rigid Neurologic: PERRL, EOMI, accommodation nl, no face palsy, no dysarthria awake; not confused Psychiatric: A+Ox3, euthymic affect Orientation: alert, oriented x 3 and cooperative Lymphatic: no cervical or axillary lymphadenopathy Results & Data ([facility]) Vital Signs (Past 12 Hours) Vital Signs Temp Pulse Pulse Resp BP BP Pulse Ox 10/24/21 09:56 96 H 10/24/21 07:59 36.9 C 80 18 121/73 95 10/24/21 03:51 36.6 C 101 H 18 122/73 95 10/24/21 00:00 98 H 10/23/21 22:49 36.5 C 98 H 16 101/68 95 Diagnostic Findings Liver US w paracentesis 10/23/21: Ultrasound-guided therapeutic paracentesis with aspiration of 1.5 liters of ascites. Non contrast CTAP 10/22/21: 1. The liver is enlarged, steatotic, and cirrhotic in morphology. 2. Splenomegaly. 3. There is a small volume of abdominopelvic ascites, which has modestly increased from 10/16/2021. 4. Colonic diverticulosis without CT evidence of acute diverticulitis. 5. Additional findings as above.
[2021-10-24 10:48] LABS: INR 1.5 (0.9-1.1); Prothrombin Time 14.4 Seconds (9.0-12.0)
[2021-10-24 10:56] LABS: Basophils # (auto) 0.02 K/uL (0-0.2); Basophils % (auto) 0.1 %; Eosinophils # (auto) 0.23 K/uL (0-0.5); Eosinophils % (auto) 0.7 %; Hematocrit (blood only) 30.5 % (37-47); Hemoglobin 9.8 g/dL (12.0-16.0); Immature Granulocytes % (auto) 1.2 %; Lymphocytes # (auto) 1.84 K/uL (1.2-3.4); Lymphocytes % (auto) 5.4 %; Macrocytosis Present; Mean Corpuscular Hemoglobin 36.3 pg (25-34); Mean Corpuscular Hgb Conc 32.1 g/dL (32-36); Mean Platelet Volume 9.8 fL (7.4-10.4); Monocytes # (auto) 1.53 K/uL (0.11-0.59); Monocytes % (auto) 4.5 %; Neutrophils # (auto) 30.07 K/uL (1.4-6.5); Neutrophils % (auto) 88.1 %; Platelet Count 216 K/uL (130-400); RDW Coefficient of Variation 16.6 % (11.5-14.5); RDW Standard Deviation 68.2 fL (36.4-46.3); White Blood Count 34.09 K/uL (4.8-10.8)
[2021-10-24 11:01] LABS: Albumin Level 2.3 gm/dl (3.4-5.0); BUN Creatinine Ratio 12.2 (10-20); Bilirubin,Total 16.3 mg/dl (0.2-1.0); Calcium 7.2 mg/dl (8.5-10.1); Creatinine Clr Calc Pharmacy 92.7 ml/min; Est GFR (African American) 108.2 ml/min; Est GFR (Non-African American) 93.4 ml/min; Globulin 2.3 gm/dl (2.5-4.0); Potassium 3.3 mmol/L (3.5-5.1); Total Protein 4.6 gm/dl (6.0-8.3)
[2021-10-24] MEDS ORDERED: POTASSIUM PHOS 3 MMOL/1 ML INFUSION IV STA (11:04)
[2021-10-24] MEDS ORDERED: POTASSIUM PHOSPHATE 24 MMOL in DEXTROSE 5% 500 ML IV ONE (11:30)
[2021-10-24] MEDS: ALBUTEROL HFA 8 GM INHALER INH PRN (11:57)
[2021-10-24] MEDS: SIMETHICONE 80 MG CHEW PO PRN ×2 (12:29→18:19)
--- NOTE | 2021-10-24 15:19 | Hospitalist Progress Note ---
Date of Service October 24, 2021 Assessment & Plan (1) Rectal bleeding: Plan: Likely secondary to hemorrhoids Appreciate GI input Recommended EGD, colonoscopy as outpatient Stool for C. difficile negative Hb Stable Has intermittent bleeding Monitor CBC-hemoglobin remains stable Will have outpatient colonoscopy as advised before (2) Alcoholic hepatitis: Plan: Avoid opioid use as much as possible Hyperbilirubinemia. Bilirubin remains elevated Appreciate GI Input and recommendation Alcohol cessation recommended Started on pentoxifylline and later on discontinued Liver USD:Hepatic steatosis and hepatomegaly. Small amount of perihepatic ascites. No gallstones or biliary ductal dilatation. Contracted gallbladder. Pentoxifylline changed to Prednisolone as recommended by GI due to Intolerance to pentoxifylline Monitor LFTs-minimal improvement especially with bilirubin Repeat CT showed enlarged liver,, sclerotic, cirrhotic morphology. Also noted splenomegaly and small volume abdominal ascites. Bilirubin level has decreased to 16.3 as of 10/24/2021 Pelvic Ascites -CT ABD:Small abdominal and moderate pelvic ascites. Nonspecific mild rectal wall thickening. No bowel obstruction. Body wall edema which has developed since prior exam Requested GI to re eval Monitor Volume status Lasix as needed Will have paracentesis and study of the fluid to rule out any infection Ascites fluid was negative for any Gram stain and/or culture No indication of doing any more paracentesis as per radiologist Leukocytosis Unclear source of infection and likely contributed by use of prednisone Likely Inflammation Acute Bronchitis Repeat blood Cx: No growth to date urine culture Lactobacillus Completed doxycycline course Continue Rocephin>>>Zosyn CXR showed no acute process Peripheral smear--Non specific leukocytosis Appreciate ID Input and recommendation White cell count has been improving -stable and is contributed by use of prednisone (3) Alcohol abuse with withdrawal: Plan: Patient not in withdrawal Thiamine/Folic Acid daily Patient refused inpatient alcohol rehab but prefers outpatient rehab (4) Asthma: Plan: Stable Continue inhaler Albuterol prn CXR Showed no acute process Provided smoking cessation counselling Continue supportive care (5) Anxiety: (6) ADD (attention deficit disorder): Plan: Continue home meds Psych recs appreciated Needs to be atleast 7 days since last opioid to resume naltrexone. Got opioid on admission Tapered off welbutrin and buspirone per psych (7) Electrolyte abnormality: Plan: Hypokalemia Replace electrolytes as needed May need potassium supplement on discharge DVT Px: SCD/ambulate We will get PT and OT evaluation and possible discharge tomorrow Admission and Anticipated Discharge Date Admission Date: October 10, 2021 Subjective 10/23/2021 The patient was seen and examined in telemetry unit She complains to abdominal distention and discomfort and feels bloated Denies any fever and/or chills, no nausea and or vomiting Denies any problem with urine and or bowel habit 10/24/2021 The patient was seen and examined in telemetry unit She still has abdominal distention and discomfort and was hoping to have another paracentesis today Denies any significant pain Remains generally weak Review of Systems Review of Systems: All systems reviewed and are unremarkable except as noted below Physical Exam Physical Exam: Lying in bed with discomfort secondary to abdominal distention and discomfort Constitutional: well developed, well nourished, + ill appearing and + obese Eyes: Yellowish discoloration of the sclera ENMT: external ear and nose normal, oropharynx normal Neck: trachea midline, no thyromegaly Respiratory: no respiratory distress Auscultation: lungs clear to auscultation bilaterally Cardiovascular: Rate/Rhythm: regular rate, regular rhythm and + tachycardic Heart Sounds: normal S1 and normal S2; no murmur Extremities: + edema (1+ edema bilaterally. More confined to ankles) Gastrointestinal (Abdomen): Inspection/Auscultation: + abdomen distended, + abdominal edema and + hypoactive bowel sounds Percussion/Palpation: + abdomen tender and + ascites (Moderate to severe ascites) Musculoskeletal: No acute arthritis in any joint Neurologic: Alert, awake and oriented x3 Results & Data Results & Data ([facility]) Vital Signs (Past 12 Hours) Vital Signs Temp Pulse Pulse Resp BP BP Pulse Ox 10/24/21 12:14 36.8 C 104 H 20 105/67 93 10/24/21 11:58 112 H 19 95 10/24/21 09:56 96 H 10/24/21 07:59 36.9 C 80 18 121/73 95 10/24/21 03:51 36.6 C 101 H 18 122/73 95 Laboratory Results Short CBC 10/24/21 Range/Units 09:14 WBC 34.09 H* (4.8-10.8) K/uL Hgb 9.8 L (12.0-16.0) g/dL Hct 30.5 L (37-47) % Plt Count 216 (130-400) K/uL BMP 10/24/21 09:14 Sodium 131 L Potassium 3.3 L Chloride 101 Carbon Dioxide 20 L BUN 10 Creatinine 0.82 Glucose 115 H Calcium 7.2 L Liver Function 10/24/21 Range/Units 09:14 Total Bilirubin 16.3 H (0.2-1.0) mg/dl AST 105 H (13-39) U/L ALT 52 (7-52) U/L Alkaline Phosphatase 246 H (34-104) U/L Albumin 2.3 L (3.4-5.0) gm/dl Medications Administered Current Inpatient Medications Acetaminophen (Acetaminophen 325 Mg Tab) 650 mg PO TID PRN PRN Reason: Pain Stop: 11/13/21 15:29 Last Admin: 10/16/21 20:38 Dose: 650 mg Documented by: Albuterol (Albuterol Hfa 8 Gm Inhaler) 2 puffs INH Q6H PRN PRN Reason: shortness of breath Stop: 11/11/21 12:59 Last Admin: 10/24/21 11:57 Dose: 2 puffs Documented by: Amphetamine/Dextroamphetamine (Amphetamine Asp/Sulf/Dextramph 5 Mg Tab) 5 mg PO QDL [facility] Stop: 10/25/21 11:29 Last Admin: 10/24/21 12:29 Dose: 5 mg Documented by: Amphetamine/Dextroamphetamine (Amphetamine Asp/Sulf/Dextramph 5 Mg Tab) 10 mg PO Q24H [facility] Stop: 10/29/21 07:29 Last Admin: 10/24/21 08:04 Dose: 10 mg Documented by: Azelastine HCl (Azelastine Hcl 0.1% Nasal 200 Sprays/27,400 Mcg Btl) 1 sprays NA BID [facility] Stop: 11/09/21 20:59 Last Admin: 10/24/21 08:13 Dose: Not Given Documented by: Dextromethorphan Polymer Complex (Dextromethorphan Polymr Complx 30 Mg/5 Ml Udp) 30 mg PO Q6H PRN PRN Reason: Cough Stop: 11/09/21 15:17 Last Admin: 10/21/21 08:23 Dose: 30 mg Documented by: Dextrose (Dextrose 50% 50 Ml Syringe) 25 - 50 ml IV UD PRN; Protocol PRN Reason: Hypoglycemia Protocol Stop: 11/09/21 15:17 Fluticasone Propionate (Fluticasone Propionate Na Spr 16 Gm Btl) 2 sprays NA DAILY [facility] Stop: 11/10/21 08:59 Last Admin: 10/24/21 08:13 Dose: Not Given Documented by: Fluticasone/Vilanterol (Fluticasone/Vilanterol 200/25mcg 14 Puffs/Inhaler) 1 puffs INH HS [facility] Stop: 11/09/21 20:59 Last Admin: 10/23/21 21:56 Dose: 1 puffs Documented by: Glucagon (Glucagon For Inj 1 Mg Vial) 1 mg SQ UD PRN; Protocol PRN Reason: Hypoglycemia Protocol Stop: 11/09/21 15:17 Glucose (Glucose 10 Tabs/Tube) 4 - 8 tabs PO UD PRN; Protocol PRN Reason: Hypoglycemia Protocol Stop: 11/09/21 15:17 Glucose (Glucose 40% Gel 15 Gm Tube) 15 - 30 gm PO UD PRN; Protocol PRN Reason: Hypoglycemia Protocol Stop: 11/09/21 15:17 Guaifenesin (Guaifenesin 600 Mg Tabcr) 1,200 mg PO BID [facility] Stop: 11/12/21 10:59 Last Admin: 10/24/21 08:08 Dose: 1,200 mg Documented by: Thiamine HCl 100 mg/ Syringe 10 mls @ 2 mls/min IV QAM [facility] Stop: 11/09/21 15:17 Last Admin: 10/24/21 08:15 Dose: 2 mls/min Documented by: Folic Acid 1 mg/ Syringe 10 mls @ 5 mls/min IV QAM [facility] Stop: 11/09/21 15:17 Last Admin: 10/24/21 08:08 Dose: 5 mls/min Documented by: Pantoprazole Sodium 40 mg/ (Syringe) 10 mls @ 5 mls/min IV BID [facility] Stop: 11/09/21 20:59 Last Admin: 10/24/21 08:12 Dose: 5 mls/min Documented by: Piperacillin Sod/Tazobactam (Sod 3.375 gm/ Dextrose) 115 mls @ 28.75 mls/hr IV Q8H [facility]; Protocol Stop: 10/29/21 13:59 Last Admin: 10/24/21 13:47 Dose: 28.8 mls/hr Documented by: Potassium Phosphate 24 mmol/ (Dextrose) 508 mls @ 88 mls/hr IV ONE ONE Stop: 10/24/21 17:16 Last Admin: 10/24/21 13:48 Dose: 88 mls/hr Documented by: Lidocaine (Lidocaine 5% 1 Patch) 1 patch TD QAM [facility] Stop: 11/13/21 10:44 Last Admin: 10/24/21 08:09 Dose: 1 patch Documented by: Loperamide HCl (Loperamide Hcl 2 Mg Cap) 2 mg PO TID PRN PRN Reason: Diarrhea Stop: 11/12/21 17:04 Last Admin: 10/14/21 20:06 Dose: 2 mg Documented by: Loratadine (Loratadine 10 Mg Tab) 10 mg PO DAILY [facility] Stop: 11/10/21 08:59 Last Admin: 10/24/21 08:11 Dose: 10 mg Documented by: Melatonin (Melatonin 3 Mg Tab) 3 mg PO HS PRN PRN Reason: Sleep Stop: 11/11/21 19:48 Last Admin: 10/23/21 21:57 Dose: 3 mg Documented by: Menthol (Cough Drop (Sugar Free) Barbara 24 Barbara/1 Box) 1 barbara BUCCAL NOW PRN PRN Reason: Cough Stop: 11/11/21 08:05 Last Admin: 10/16/21 20:38 Dose: 1 barbara Documented by: Miscellaneous (Carbohydrates For Hypoglycemia ) 15 - 30 gm PO UD PRN PRN Reason: Hypoglycemia Protocol Stop: 11/09/21 15:17 Miscellaneous (Remove Lidoderm Patch) 1 ea N/A DAILY@2100 [facility] Stop: 11/13/21 20:59 Last Admin: 10/23/21 21:56 Dose: 1 ea Documented by: Miscellaneous Information (Piperacill/Tazobac Consult Active) 1 ea N/A UD PRN PRN Reason: Consult Stop: 11/18/21 08:16 Montelukast Sodium (Montelukast Sodium 10 Mg Tablet) 10 mg PO HS [facility] Stop: 11/09/21 20:59 Last Admin: 10/23/21 22:00 Dose: 10 mg Documented by: Nicotine (Nicotine 14 Mg/24 Hr Patch) 14 mg TD DAILY [facility] Stop: 11/10/21 08:59 Last Admin: 10/24/21 08:11 Dose: 14 mg Documented by: Ondansetron HCl (Ondansetron Inj 2 Mg/Ml 2 Ml Vial) 4 mg IV Q6H PRN PRN Reason: NAUSEA/VOMITING Stop: 11/16/21 21:29 Last Admin: 10/24/21 08:22 Dose: 4 mg Documented by: Oxycodone HCl (Oxycodone Hcl Ir 5 Mg Tab (Immediate Release)) 5 mg PO Q4H PRN PRN Reason: Pain Stop: 10/30/21 20:29 Last Admin: 10/24/21 13:08 Dose: 5 mg Documented by: Potassium Chloride (Potassium Chloride Crtab 20 Meq Tabcr) 20 meq PO QAM [facility] Stop: 11/18/21 08:59 Last Admin: 10/24/21 08:14 Dose: 20 meq Documented by: Prednisolone Sodium Phosphate (Prednisolone Sod Phosphate 15 Mg/5 Ml) 40 mg PO DAILY [facility] Stop: 11/20/21 12:29 Last Admin: 10/24/21 08:14 Dose: 40 mg Documented by: Simethicone (Simethicone 80 Mg Chew) 40 mg PO QID PRN PRN Reason: Bloating/Gas retention Stop: 11/12/21 14:35 Last Admin: 10/24/21 12:29 Dose: 40 mg Documented by:
[2021-10-24] MEDS: FLUTICASONE/VILANTEROL 200/25MCG 14 PUFFS/INHALER INH SCH (20:02)
[2021-10-24] MEDS: MONTELUKAST SODIUM 10 MG TABLET PO SCH (20:02)
[2021-10-24] MEDS ORDERED: MELATONIN 3 MG TAB PO PRN (22:18)
[2021-10-25] MEDS: oxyCODONE HCL IR 5 MG TAB (IMMEDIATE RELEASE) PO PRN ×4 (02:20→14:32)
[2021-10-25] MEDS: PIPERACILLIN/TAZOBACTAM 3.375 GM in DEXTROSE 5% 100 ML IV SCH (05:49)
[2021-10-25] MEDS: SIMETHICONE 80 MG CHEW PO PRN (08:28)
[2021-10-25] MEDS: POTASSIUM CHLORIDE CRTAB 20 MEQ TABCR PO SCH (08:28)
[2021-10-25] MEDS: ONDANSETRON INJ 2 MG/ML 2 ML VIAL IV PRN (08:28)
[2021-10-25] MEDS: guaiFENesin 600 MG TABCR PO SCH (08:29)
[2021-10-25] MEDS: LORATADINE 10 MG TAB PO SCH (08:29)
[2021-10-25] MEDS: FLUTICASONE PROPIONATE NA SPR 16 GM BTL SCH (08:30)
[2021-10-25] MEDS: prednisoLONE sod phosphate 15 MG/5 ML PO SCH (08:31)
[2021-10-25] MEDS: PANTOprazole 40 MG in SYRINGE 0 ML IV SCH (08:31)
[2021-10-25] MEDS: LIDOCAINE 5% 1 PATCH TD SCH (08:32)
[2021-10-25] MEDS: NICOTINE 14 MG/24 HR PATCH TD SCH (08:32)
[2021-10-25] MEDS: THIAMINE HCL 100 MG in SYRINGE 9 ML IV SCH (08:33)
[2021-10-25] MEDS: FOLIC ACID 1 MG in SYRINGE 9.8 ML IV SCH (08:33)
[2021-10-25] MEDS: AZELASTINE HCL 0.1% NASAL 200 SPRAYS/27,400 MCG BTL SCH (08:34)
[2021-10-25] MEDS: AMPHETAMINE ASP/SULF/DEXTRAMPH 5 MG TAB PO SCH (08:35)
[2021-10-25 09:29] LABS: Hematocrit (blood only) 29.9 % (37-47); Hemoglobin 9.7 g/dL (12.0-16.0); Mean Corpuscular Hemoglobin 36.2 pg (25-34); Mean Corpuscular Hgb Conc 32.4 g/dL (32-36); Mean Corpuscular Volume 111.6 fL (80-100); Mean Platelet Volume 9.6 fL (7.4-10.4); Platelet Count 207 K/uL (130-400); RDW Coefficient of Variation 16.4 % (11.5-14.5); RDW Standard Deviation 66.1 fL (36.4-46.3); Red Blood Count 2.68 M/uL (4.2-5.4); White Blood Count 36.54 K/uL (4.8-10.8)
[2021-10-25 09:50] LABS: Basophils # (auto) 0.02 K/uL (0-0.2); Basophils % (auto) 0.1 %; Eosinophils # (auto) 0.25 K/uL (0-0.5); Eosinophils % (auto) 0.7 %; Immature Granulocytes # (auto) 0.99 K/uL (0.00-0.02); Immature Granulocytes % (auto) 2.7 %; Lymphocytes # (auto) 1.89 K/uL (1.2-3.4); Lymphocytes % (auto) 5.2 %; Macrocytosis Present; Monocytes # (auto) 1.48 K/uL (0.11-0.59); Monocytes % (auto) 4.1 %; Neutrophils # (auto) 31.91 K/uL (1.4-6.5); Neutrophils % (auto) 87.2 %; Polychromasia 1+
[2021-10-25 11:47] LABS: Albumin Level 2.3 gm/dl (3.4-5.0); BUN Creatinine Ratio 11.4 (10-20); Bilirubin,Total 14.4 mg/dl (0.2-1.0); Calcium 7.2 mg/dl (8.5-10.1); Creatinine Clr Calc Pharmacy 95.6 ml/min; Est GFR (African American) 113.2 ml/min; Est GFR (Non-African American) 97.7 ml/min; Globulin 2.4 gm/dl (2.5-4.0); Potassium 3.9 mmol/L (3.5-5.1); Total Protein 4.7 gm/dl (6.0-8.3)
[2021-10-25] MEDS ORDERED: traMADol HCL 50 MG TABLET PO PRN (12:12)
[2021-10-25] MEDS ORDERED: POTASSIUM CHLORIDE CRTAB 20 MEQ TABCR PO SCH (12:30)
[2021-10-25] MEDS ORDERED: FUROSEMIDE 20 MG TAB PO SCH (12:30)
--- NOTE | 2021-10-25 13:51 | Hospitalist Progress Note ---
Date of Service October 25, 2021 Assessment & Plan (1) Rectal bleeding: Plan: Likely secondary to hemorrhoids Appreciate GI input Recommended EGD, colonoscopy as outpatient Stool for C. difficile negative Hb Stable Has intermittent bleeding Monitor CBC-hemoglobin remains stable Will have outpatient colonoscopy as advised before (2) Alcoholic hepatitis: Plan: Avoid opioid use as much as possible Hyperbilirubinemia. Bilirubin remains elevated Appreciate GI Input and recommendation Alcohol cessation recommended Started on pentoxifylline and later on discontinued Liver USD:Hepatic steatosis and hepatomegaly. Small amount of perihepatic ascites. No gallstones or biliary ductal dilatation. Contracted gallbladder. Pentoxifylline changed to Prednisolone as recommended by GI due to Intolerance to pentoxifylline Monitor LFTs-minimal improvement especially with bilirubin Repeat CT showed enlarged liver,, sclerotic, cirrhotic morphology. Also noted splenomegaly and small volume abdominal ascites. Bilirubin level has decreased to 14 as of 10/25/2021 LFTs otherwise elevated and stable We will continue prednisolone 40 mg a day as per GI instruction Will have EGD as an outpatient as a scheduled Pelvic Ascites -CT ABD:Small abdominal and moderate pelvic ascites. Nonspecific mild rectal wall thickening. No bowel obstruction. Body wall edema which has developed since prior exam Requested GI to re eval Monitor Volume status Lasix as needed Will have paracentesis and study of the fluid to rule out any infection Ascites fluid was negative for any Gram stain and/or culture No indication of doing any more paracentesis as per radiologist Clinically no increasing ascites Leukocytosis Unclear source of infection and likely contributed by use of prednisone Likely Inflammation Acute Bronchitis Repeat blood Cx: No growth to date urine culture Lactobacillus Completed doxycycline course Continue Rocephin>>>Zosyn CXR showed no acute process Peripheral smear--Non specific leukocytosis Appreciate ID Input and recommendation White cell count has been improving -stable and is contributed by use of prednisone Discussed in detail with ID specialist in [place]-no clear source of any infection and the white count was elevated at presentation which could be due to hepatitis itself and complicated by use of prednisolone (3) Alcohol abuse with withdrawal: Plan: Patient not in withdrawal Thiamine/Folic Acid daily Patient refused inpatient alcohol rehab but prefers outpatient rehab Strongly advised to quit drinking altogether and have follow-up with outpatient rehab (4) Asthma: Plan: Stable Continue inhaler Albuterol prn CXR Showed no acute process Provided smoking cessation counselling Continue supportive care (5) Anxiety: (6) ADD (attention deficit disorder): Plan: Continue home meds Psych recs appreciated Needs to be atleast 7 days since last opioid to resume naltrexone. Got opioid on admission Tapered off welbutrin and buspirone per psych Will continue with Adderall (7) Electrolyte abnormality: Plan: Hypokalemia Replace electrolytes as needed May need potassium supplement on discharge Advised to have PRP checked at doctor's office to make sure sodium is not going down DVT Px: SCD/ambulate We will get PT and OT evaluation and possible discharge tomorrow Will be discharged home this afternoon Discussed with the sister in detail and answered all of her questions Admission and Anticipated Discharge Date Admission Date: October 10, 2021 Subjective 10/23/2021 The patient was seen and examined in telemetry unit She complains to abdominal distention and discomfort and feels bloated Denies any fever and/or chills, no nausea and or vomiting Denies any problem with urine and or bowel habit 10/24/2021 The patient was seen and examined in telemetry unit She still has abdominal distention and discomfort and was hoping to have another paracentesis today Denies any significant pain Remains generally weak 10/25/2021 The patient was seen and examined in telemetry unit She has been feeling much better with minimal discomfort in the abdomen She has had physical therapy and recommended home Denies any fever and/or chills, any nausea and or vomiting and no more bleeding per rectum Review of Systems Review of Systems: All systems reviewed and are unremarkable except as noted below Gastrointestinal: Abdominal distention and discomfort Neurologic: Alert, awake and oriented x3. Generally weak but no focal sensory and motor deficit appreciated Physical Exam Physical Exam: Lying in bed with discomfort secondary to abdominal distention and discomfort Constitutional: well developed, well nourished, + ill appearing and + obese ENMT: external ear and nose normal, oropharynx normal Neck: trachea midline, no thyromegaly Respiratory: no respiratory distress Auscultation: lungs clear to auscultation bilaterally Cardiovascular: Rate/Rhythm: regular rate, regular rhythm and + tachycardic Heart Sounds: normal S1 and normal S2; no murmur Extremities: + edema (1+ edema bilaterally. More confined to ankles) Gastrointestinal (Abdomen): Inspection/Auscultation: + abdomen distended, + abdominal edema and + hypoactive bowel sounds Percussion/Palpation: + abdomen tender and + ascites (Moderate to severe ascites) Musculoskeletal: No acute arthritis in any joint Neurologic: Speech / Cognition: + abnormal speech Motor/Sensory: no tremor No focal sensory or no motor deficit appreciated but remains generally weak Results & Data Results & Data ([facility]) Vital Signs (Past 12 Hours) Vital Signs Temp Pulse Pulse Resp BP Pulse Ox Pulse Ox 10/25/21 12:00 36.5 C 93 H 20 93/57 L 98 10/25/21 08:00 92 H 95 10/25/21 07:44 36.8 C 107 H 18 119/74 95 10/25/21 04:06 36.9 C 95 H 18 115/72 96 Laboratory Results Short CBC 10/25/21 Range/Units 09:06 WBC 36.54 H* (4.8-10.8) K/uL Hgb 9.7 L (12.0-16.0) g/dL Hct 29.9 L (37-47) % Plt Count 207 (130-400) K/uL BMP 10/25/21 11:13 Sodium 129 L Potassium 3.9 Chloride 100 Carbon Dioxide 21 BUN 9 Creatinine 0.79 Glucose 151 H Calcium 7.2 L Liver Function 10/25/21 Range/Units 11:13 Total Bilirubin 14.4 H (0.2-1.0) mg/dl AST 102 H (13-39) U/L ALT 60 H (7-52) U/L Alkaline Phosphatase 278 H (34-104) U/L Albumin 2.3 L (3.4-5.0) gm/dl Medications Administered Current Inpatient Medications Acetaminophen (Acetaminophen 325 Mg Tab) 650 mg PO TID PRN PRN Reason: Pain Stop: 11/13/21 15:29 Last Admin: 10/16/21 20:38 Dose: 650 mg Documented by: Albuterol (Albuterol Hfa 8 Gm Inhaler) 2 puffs INH Q6H PRN PRN Reason: shortness of breath Stop: 11/11/21 12:59 Last Admin: 10/24/21 11:57 Dose: 2 puffs Documented by: Amphetamine/Dextroamphetamine (Amphetamine Asp/Sulf/Dextramph 5 Mg Tab) 10 mg PO Q24H JUAN Stop: 10/29/21 07:29 Last Admin: 10/25/21 08:35 Dose: 10 mg Documented by: Azelastine HCl (Azelastine Hcl 0.1% Nasal 200 Sprays/27,400 Mcg Btl) 1 sprays NA BID JUAN Stop: 11/09/21 20:59 Last Admin: 10/25/21 08:34 Dose: Not Given Documented by: Dextromethorphan Polymer Complex (Dextromethorphan Polymr Complx 30 Mg/5 Ml Udp) 30 mg PO Q6H PRN PRN Reason: Cough Stop: 11/09/21 15:17 Last Admin: 10/21/21 08:23 Dose: 30 mg Documented by: Dextrose (Dextrose 50% 50 Ml Syringe) 25 - 50 ml IV UD PRN; Protocol PRN Reason: Hypoglycemia Protocol Stop: 11/09/21 15:17 Fluticasone Propionate (Fluticasone Propionate Na Spr 16 Gm Btl) 2 sprays NA DAILY [facility] Stop: 11/10/21 08:59 Last Admin: 10/25/21 08:30 Dose: 2 sprays Documented by: Fluticasone/Vilanterol (Fluticasone/Vilanterol 200/25mcg 14 Puffs/Inhaler) 1 puffs INH HS JUAN Stop: 11/09/21 20:59 Last Admin: 10/24/21 20:02 Dose: 1 puffs Documented by: Furosemide (Furosemide 20 Mg Tab) 20 mg PO QAM [facility] Stop: 11/24/21 12:29 Last Admin: 10/25/21 12:39 Dose: 20 mg Documented by: Glucagon (Glucagon For Inj 1 Mg Vial) 1 mg SQ UD PRN; Protocol PRN Reason: Hypoglycemia Protocol Stop: 11/09/21 15:17 Glucose (Glucose 10 Tabs/Tube) 4 - 8 tabs PO UD PRN; Protocol PRN Reason: Hypoglycemia Protocol Stop: 11/09/21 15:17 Glucose (Glucose 40% Gel 15 Gm Tube) 15 - 30 gm PO UD PRN; Protocol PRN Reason: Hypoglycemia Protocol Stop: 11/09/21 15:17 Guaifenesin (Guaifenesin 600 Mg Tabcr) 1,200 mg PO BID [facility] Stop: 11/12/21 10:59 Last Admin: 10/25/21 08:29 Dose: 1,200 mg Documented by: Thiamine HCl 100 mg/ Syringe 10 mls @ 2 mls/min IV QAM JUAN Stop: 11/09/21 15:17 Last Admin: 10/25/21 08:33 Dose: 2 mls/min Documented by: Folic Acid 1 mg/ Syringe 10 mls @ 5 mls/min IV QAM [facility] Stop: 11/09/21 15:17 Last Admin: 10/25/21 08:33 Dose: 5 mls/min Documented by: Pantoprazole Sodium 40 mg/ (Syringe) 10 mls @ 5 mls/min IV BID [facility] Stop: 11/09/21 20:59 Last Admin: 10/25/21 08:31 Dose: 5 mls/min Documented by: Piperacillin Sod/Tazobactam (Sod 3.375 gm/ Dextrose) 115 mls @ 28.75 mls/hr IV Q8H [facility]; Protocol Stop: 10/29/21 13:59 Last Infusion: 10/25/21 10:08 Dose: Infused Documented by: Lidocaine (Lidocaine 5% 1 Patch) 1 patch TD QAM [facility] Stop: 11/13/21 10:44 Last Admin: 10/25/21 08:32 Dose: 1 patch Documented by: Loperamide HCl (Loperamide Hcl 2 Mg Cap) 2 mg PO TID PRN PRN Reason: Diarrhea Stop: 11/12/21 17:04 Last Admin: 10/14/21 20:06 Dose: 2 mg Documented by: Loratadine (Loratadine 10 Mg Tab) 10 mg PO DAILY [facility] Stop: 11/10/21 08:59 Last Admin: 10/25/21 08:29 Dose: 10 mg Documented by: Melatonin (Melatonin 3 Mg Tab) 6 mg PO HS PRN PRN Reason: Sleep Stop: 11/11/21 19:48 Last Admin: 10/24/21 22:29 Dose: 6 mg Documented by: Menthol (Cough Drop (Sugar Free) Barbara 24 Barbara/1 Box) 1 barbara BUCCAL NOW PRN PRN Reason: Cough Stop: 11/11/21 08:05 Last Admin: 10/16/21 20:38 Dose: 1 barbara Documented by: Miscellaneous (Carbohydrates For Hypoglycemia ) 15 - 30 gm PO UD PRN PRN Reason: Hypoglycemia Protocol Stop: 11/09/21 15:17 Miscellaneous (Remove Lidoderm Patch) 1 ea N/A DAILY@2100 [facility] Stop: 11/13/21 20:59 Last Admin: 10/24/21 20:05 Dose: 1 ea Documented by: Miscellaneous Information (Piperacill/Tazobac Consult Active) 1 ea N/A UD PRN PRN Reason: Consult Stop: 11/18/21 08:16 Montelukast Sodium (Montelukast Sodium 10 Mg Tablet) 10 mg PO HS [facility] Stop: 11/09/21 20:59 Last Admin: 10/24/21 20:02 Dose: 10 mg Documented by: Nicotine (Nicotine 14 Mg/24 Hr Patch) 14 mg TD DAILY JUAN Stop: 11/10/21 08:59 Last Admin: 10/25/21 08:32 Dose: 14 mg Documented by: Ondansetron HCl (Ondansetron Inj 2 Mg/Ml 2 Ml Vial) 4 mg IV Q6H PRN PRN Reason: NAUSEA/VOMITING Stop: 11/16/21 21:29 Last Admin: 10/25/21 08:28 Dose: 4 mg Documented by: Oxycodone HCl (Oxycodone Hcl Ir 5 Mg Tab (Immediate Release)) 5 mg PO Q4H PRN PRN Reason: Pain Stop: 10/30/21 20:29 Last Admin: 10/25/21 10:31 Dose: 5 mg Documented by: Potassium Chloride (Potassium Chloride Crtab 20 Meq Tabcr) 20 meq PO QAM [facility] Stop: 11/24/21 12:29 Last Admin: 10/25/21 12:40 Dose: 20 meq Documented by: Prednisolone Sodium Phosphate (Prednisolone Sod Phosphate 15 Mg/5 Ml) 40 mg PO DAILY [facility] Stop: 11/20/21 12:29 Last Admin: 10/25/21 08:31 Dose: 40 mg Documented by: Simethicone (Simethicone 80 Mg Chew) 40 mg PO QID PRN PRN Reason: Bloating/Gas retention Stop: 11/12/21 14:35 Last Admin: 10/25/21 08:28 Dose: 40 mg Documented by: Tramadol HCl (Tramadol Hcl 50 Mg Tablet) 25 mg PO BID PRN PRN Reason: Pain Stop: 11/24/21 12:11 Last Admin: 10/25/21 12:35 Dose: 25 mg Documented by:
--- NOTE | 2021-10-26 08:19 | Discharge Summary ---
Date of Service October 26, 2021 Admission HPI Per Admitting Provider This is a 36 y/o female with a hx of EtOH abuse, pancreatitis, prior alcoholic hepatitis, asthma, depression, anxiety, ADHD and allergies who presents to the ED today with small amount of rectal bleeding noted earlier today. Pt was admitted to this facility 10/03-10/09/21 with alcoholic hepatitis. Seen by GI but DF at the time <30 so not a candidate for steroids or [place]al. Also seen by general surgery due to CT concerning for appendicitis with associated abdominal pain. However, pain improved and surgery reviewed CT and did not think findings were consistent with appendicitis so no surgical intervention required. Patient has a longstanding history of alcoholism, requiring hospitalization x 2 weeks in December 2018 in [place] for alcohol hepatitis. Patient reports going to inpatient rehab following that hospitalization and had remained sober until 2019 during the COVID-19 pandemic. Patient reports another inpatient rehab stay in July 2020, after which she was apparently sober until last fall. Most recently admitted in Jun 2021 for alcoholic hepatitis and pancreatitis. She reports abstaining from EtOH until last month when she started drinking again around the holidays. She stopped drinking the night prior to her hospitalization last week, and she denies drinking since she was discharged. She did have evidence of withdrawal during her recent admission. Inpatient rehab was discussed but pt declined. Pt was discharged yesterday but reports she has not felt well at home since discharge. Last night and this morning, she had a formed BM with bright red blood afterwards. Unable to quantify amount. No bleeding noted between bowel movements. Reports ongoing diffuse abdominal pain but worse on the right side. No significant nausea or vomiting. Noted a fever two days ago with asso ciated chills. Cough x 2 days that is non-productive but comes in fits. Abdominal muscles also sore related to cough. She remains shaky and tremulous related to alcohol withdrawal. Admission Exam Per Admitting Provider Constitutional: well developed and well nourished; no acute distress Eyes: PERRL and EOM intact bilaterally scleral icterus Neck: trachea midline Respiratory: no respiratory distress and no labored breathing Auscultation: lungs clear to auscultation bilaterally; no rales, no rhonchi and no wheezes Cardiovascular: Rate/Rhythm: regular rhythm and + tachycardic Heart Sounds: no gallop, no murmur and no cardiac rub Vessels: dorsalis pedis pulses present and radial pulses present Extremities: no pedal edema Gastrointestinal (Abdomen): Inspection/Auscultation: + abdomen distended and normal bowel sounds Percussion/Palpation: + abdomen tender (diffuse), abdomen soft and + tympanic to percussion; no guarding Musculoskeletal: Head/Neck/Chest: normocephalic, head atraumatic and neck supple Skin: + jaundice Neurologic: moves all extremities; no focal motor deficits Motor/Sensory: + tremor (in bilateral hands) Psychiatric: A+Ox3, euthymic affect Principal Diagnosis Alcoholic hepatitis, ascites likely secondary to possible cirrhosis, rectal bleeding, leukocytosis without any obvious infection, electrolyte abnormality, anxiety/ADD Discharge Exam Lying in bed with discomfort secondary to abdominal distention and discomfort Constitutional well developed, well nourished, + ill appearing and + obese ENMT external ear and nose normal, oropharynx normal Neck trachea midline, no thyromegaly Respiratory no respiratory distress Auscultation: lungs clear to auscultation bilaterally Cardiovascular Rate/Rhythm: regular rate, regular rhythm and + tachycardic Heart Sounds: normal S1 and normal S2; no murmur Extremities: + edema (1+ edema bilaterally. More confined to ankles) Gastrointestinal (Abdomen) Inspection/Auscultation: + abdomen distended, + abdominal edema and + hypoactive bowel sounds Percussion/Palpation: + abdomen tender and + ascites (Moderate to severe ascites) Neurologic Speech / Cognition: + abnormal speech Motor/Sensory: no tremor Discharge Data Allergies Allergy/AdvReac Type Severity Reaction Status Date / Time banana Allergy Intermediate RASH, Verified 08/13/21 15:11 THROAT SLIGHTLY SWOLLEN Penicillins Allergy Unknown HAPPENED Verified 08/13/21 15:11 A CHILD Consultations 10/10/21 12:08 ED Decision to Admit Stat 10/10/21 15:18 Consult Gastroenterology Routine 10/11/21 12:00 Consult Psychiatry Routine 10/19/21 07:43 Consult Infectious Diseases Routine Ordered Studies 10/15/21 08:41 US venous doppler LE BI Urgent 10/16/21 14:31 CT abd pelvis wo con Urgent 10/20/21 09:06 US liver Routine 10/21/21 11:58 US abdomen ltd ascites Routine 10/22/21 12:43 CT abd pelvis wo con Routine 10/23/21 10:25 US paracentesis abd w/image Routine Hospital Course (1) Rectal bleeding: Likely secondary to hemorrhoids Appreciate GI input Recommended EGD, colonoscopy as outpatient Stool for C. difficile negative Hb Stable Has intermittent bleeding Monitor CBC-hemoglobin remains stable Will have outpatient colonoscopy as advised before (2) Alcoholic hepatitis: Avoid opioid use as much as possible Hyperbilirubinemia. Bilirubin remains elevated Appreciate GI Input and recommendation Alcohol cessation recommended Started on pentoxifylline and later on discontinued Liver USD:Hepatic steatosis and hepatomegaly. Small amount of perihepatic ascites. No gallstones or biliary ductal dilatation. Contracted gallbladder. Pentoxifylline changed to Prednisolone as recommended by GI due to Intolerance to pentoxifylline Monitor LFTs-minimal improvement especially with bilirubin Repeat CT showed enlarged liver,, sclerotic, cirrhotic morphology. Also noted splenomegaly and small volume abdominal ascites. Bilirubin level has decreased to 14 as of 10/25/2021 LFTs otherwise elevated and stable We will continue prednisolone 40 mg a day as per GI instruction Will have EGD as an outpatient as a scheduled Pelvic Ascites -CT ABD:Small abdominal and moderate pelvic ascites. Nonspecific mild rectal wall thickening. No bowel obstruction. Body wall edema which has developed since prior exam Requested GI to re eval Monitor Volume status Lasix as needed Will have paracentesis and study of the fluid to rule out any infection Ascites fluid was negative for any Gram stain and/or culture No indication of doing any more paracentesis as per radiologist Clinically no increasing ascites Leukocytosis Unclear source of infection and likely contributed by use of prednisone Likely Inflammation Acute Bronchitis Repeat blood Cx: No growth to date urine culture Lactobacillus Completed doxycycline course Continue Rocephin>>>Zosyn CXR showed no acute process Peripheral smear--Non specific leukocytosis Appreciate ID Input and recommendation White cell count has been improving -stable and is contributed by use of prednisone Discussed in detail with ID specialist in [place]-no clear source of any infection and the white count was elevated at presentation which could be due to hepatitis itself and complicated by use of prednisolone (3) Alcohol abuse with withdrawal: Patient not in withdrawal Thiamine/Folic Acid daily Patient refused inpatient alcohol rehab but prefers outpatient rehab Strongly advised to quit drinking altogether and have follow-up with outpatient rehab (4) Asthma: Stable Continue inhaler Albuterol prn CXR Showed no acute process Provided smoking cessation counselling Continue supportive care (5) Anxiety: (6) ADD (attention deficit disorder): Continue home meds Psych recs appreciated Needs to be atleast 7 days since last opioid to resume naltrexone. Got opioid on admission Tapered off welbutrin and buspirone per psych Will continue with Adderall (7) Electrolyte abnormality: Hypokalemia Replace electrolytes as needed May need potassium supplement on discharge Advised to have PRP checked at doctor's office to make sure sodium is not going down DVT Px: SCD/ambulate We will get PT and OT evaluation and possible discharge tomorrow Will be discharged home this afternoon Discussed with the sister in detail and answered all of her questions Total Time Total Time Spent Total Time Spent (In Minutes): 45 minutes Discharge Plan Discharge Items Patient Disposition: Home - Self-Care Reason For Visit: RECTAL BLEEDING, ALCOHOLIC HEPATITIS Discharge Diagnosis: Alcoholic hepatitis, ascites likely secondary to possible cirrhosis, rectal bleeding, leukocytosis without any obvious infection, electrolyte abnormality, anxiety/ADD Condition on Discharge: Fair Activity: As commented below Activity Comment: Take it easy for the next few days Non-emergency contact: Primary Care Provider Call non-emergency contact if: you have any medication questions and your symptoms worsen Follow-up/Referrals: Deanne Vazquez CRNP [Nurse Practitioner] - (Date & Time 10/29/2021 10:00 AM Provider TIAN Jarrett Department Gastroenterology, [facility] ) Zaina Bunch MD [Primary Care Provider] - (Date & Time 10/30/2021 10:00 AM Provider Zaina Bunch MD Department General Internal Medicine [facility] ) Diet: Regular Fluids: 1800ml (7 cups) Addtl Attending Provider Instructions: Please take precautions to avoid falls Strongly advised to quit drinking of alcohol altogether Have follow-up with outpatient alcohol Anonymous group 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 Have your kidney function and electrolytes checked during your visit to PCP Pending Studies at Discharge: No Stand-Alone Forms: [employer], Work/School Release, Smoking Cessation Medications and DC Order Prescriptions: New tramadol 50 mg Tablet 25 mg PO BID PRN (Reason: pain) 5 Days Qty: 5 RF: 0 potassium chloride 20 mEq Tablet,Er Particles/Crystals 20 meq PO QAM 30 Days Qty: 30 RF: 0 furosemide 20 mg Tablet 20 mg PO QAM 30 Days Qty: 30 RF: 0 prednisone 20 mg tablet 40 mg PO DAILY Qty: 60 RF: 0 Continued albuterol sulfate [ProAir HFA] 90 mcg/actuation Hfa Aerosol Inhaler 1 inh INHALATION QID PRN (Reason: Shortness Of Breath) RF: 0 omeprazole 20 mg Capsule,Delayed Release(Dr/Ec) 20 mg PO DAILY RF: 0 montelukast 10 mg Tablet 10 mg PO HS RF: 0 dextroamphetamine-amphetamine [Adderall] 5 mg Tablet 10 mg PO DAILY RF: 0 dextroamphetamine-amphetamine [Adderall] 5 mg Tablet 5 mg PO QDL RF: 0 loratadine 10 mg Tablet 10 mg PO DAILY RF: 0 budesonide-formoterol [Symbicort] 160-4.5 mcg/actuation Hfa Aerosol Inhaler 2 puff INHALATION BID RF: 0 Combivent Respimat 20-100 mcg/actuation Mist 1 puff INHALATION BID RF: 0 nicotine 14 mg/24 hr patch 24 hour 1 patch transdermal DAILY Qty: 28 RF: 0 multivitamin Tablet 1 tab PO DAILY RF: 0 azelastine 137 mcg (0.1 %) Aerosol,[place] 1 spray INTRANASAL BID RF: 0 fluticasone propionate 50 mcg/actuation [place],Suspension 2 spray INTRANASAL DAILY RF: 0 thiamine HCl (vitamin B1) 100 mg Tablet 100 mg PO QAM Qty: 30 RF: 0 folic acid 1 mg Tablet 1 mg PO QAM Qty: 30 RF: 0 Discontinued buspirone 5 mg Tablet 10 mg PO TID RF: 0 bupropion HCl [Wellbutrin XL] 300 mg Tablet Extended Release 24 Hr 300 mg PO QAM RF: 0 Discharge Orders: Discharge Order (Routine); Ordered 10/25/21 Ordered By: Hellen Mayfield Admission Data Admit Date/Time: 10/10/21 12:47 Attending Provider: Hellen Mayfield Admit Provider: Sheldon Beaulieu Primary Care Provider: Zaina Bunch Other Providers: Mari Sharpe ; Sheldon Beaulieu ; Briseida Brody ; Ольга Granado ; Meghan Cannon ; Armando Chase ; Rolo Lopez ; Melo Mena ; Aniket Mercado I. ; Manjit Cooper II ; Della Reagan ; Chaitanya Crockett ; Chintan Wilcox Other Interventions: Discharge Summary Assessment (RN) Last Done: 10/25/21 14:38
== END 2021-10-25 16:02 | disposition home or self-care (01) | DRG 433 ==
LOC: ED 07:52 → SUATTDRO 12:47 → EDINP 12:47 → 2S 19:00

== ENCOUNTER 2022-01-31 13:13 | Observation (INO) ==
[2022-01-31] MEDS ORDERED: MULTI-VITAMIN INFUSION 10 ML, THIAMINE HCL 100 MG, FOLIC ACID 1 MG in SODIUM CHLORIDE 0... IV ONE (14:11)
[2022-01-31 14:42] LABS: Hematocrit (blood only) 33.7 % (37-47); Hemoglobin 11.4 g/dL (12.0-16.0); Mean Corpuscular Hemoglobin 31.3 pg (25-34); Mean Corpuscular Hgb Conc 33.8 g/dL (32-36); Mean Corpuscular Volume 92.6 fL (80-100); RDW Standard Deviation 53.6 fL (36.4-46.3); Red Blood Count 3.64 M/uL (4.2-5.4); White Blood Count 8.63 K/uL (4.8-10.8)
[2022-01-31 15:13] LABS: Alanine Aminotransferase 23 U/L (7-52); Albumin Globulin Ratio 1.1 (0.9-2); Albumin Level 3.6 gm/dl (3.4-5.0); Alkaline Phosphatase 366 U/L (34-104); Anion Gap 17 (3-11); Bilirubin,Total 20.4 mg/dl (0.2-1.0); Blood Urea Nitrogen 3 mg/dl (6-23); Calcium 7.7 mg/dl (8.5-10.1); Carbon Dioxide 24 mmol/L (21-32); Chloride 83 mmol/L (98-107); Creatinine Clr Calc Pharmacy 69.5 ml/min; Est GFR (African American) 85.1 ml/min; Est GFR (Non-African American) 73.5 ml/min; Globulin 3.4 gm/dl (2.5-4.0); Glucose 148 mg/dl (70-99(Fasting)); Sodium 124 mmol/L (136-145)
[2022-01-31 15:23] LABS: Basophils # (auto) 0.01 K/uL (0-0.2); Basophils % (auto) 0.1 %; Eosinophils # (auto) 0.03 K/uL (0-0.5); Eosinophils % (auto) 0.3 %; Immature Granulocytes # (auto) 0.03 K/uL (0.00-0.02); Immature Granulocytes % (auto) 0.3 %; Lymphocytes % (auto) 9.3 %; Mean Platelet Volume 11.8 fL (7.4-10.4); Monocytes # (auto) 0.73 K/uL (0.11-0.59); Monocytes % (auto) 8.5 %; Neutrophils # (auto) 7.03 K/uL (1.4-6.5); Neutrophils % (auto) 81.5 %; Platelet Count 75 K/uL (130-400); Platelet Estimate Decreased (Normal); Toxic Vacuolation 1+
[2022-01-31 15:50] LABS: Potassium 2.7 mmol/L (3.5-5.1)
[2022-01-31 16:17] LABS: Bilirubin Direct 13.5 mg/dl (0-0.2)
[2022-01-31] MEDS ORDERED: OPTIRAY 320 100ml IV ONE (16:25)
--- NOTE | 2022-01-31 16:36 | CT Scan Report ---
ABDOMEN AND PELVIS CT WITH IV CONTRAST CT DOSE: 498.42 mGy.cm HISTORY: jaundice, etoh cirrhosis TECHNIQUE: Multiaxial CT images of the abdomen and pelvis were performed following the use of intrave nous contrast. A dose lowering technique was utilized adhering to the principles of ALARA. COMPARISON STUDY: Abdomen and pelvis CT 10/22/2021. FINDINGS: Mild dependent changes noted at the lung bases. No pneumoperitoneum. No pneumatosis. No acu te fractures within the visualized osseous structures. Small fat-containing right inguinal hernia. Th is remains unchanged. Nodular contour to the liver consistent with cirrhosis. The liver remains mildl y enlarged. There is heterogeneous enhancement within the liver with evidence for steatosis. This rem ains unchanged. The spleen remains enlarged measuring 16 cm in length. The adrenal glands, pancreas, and kidneys are unremarkable. No hydronephrosis. Normal bladder. The uterus and ovaries are unremarka ble. Trace pelvic free fluid. There is also trace perihepatic ascites. This has significantly improve d in the interval. The main portal vein is patent. Diffuse gallbladder wall thickening/edema remains unchanged. This is likely due to the patient's cirrhosis. No retroperitoneal lymphadenopathy. Normal caliber abdominal aorta. No bowel wall thickening or obstruction. Mild thickening at the sigmoid colo n is likely due to underdistention and muscular hypertrophy from the diverticulosis. No evidence for acute diverticulitis. Normal appendix. IMPRESSION: 1. No bowel wall thickening or obstruction. 2. Normal appendix. 3. Colonic diverticulosis. No evidence for acute diverticulitis. 4. Cirrhotic liver with splenomegaly, unchanged. 5. Diffuse gallbladder wall thickening/edema. This is also unchanged and is likely due to the patient 's cirrhosis. 6. Trace ascites. This has significantly improved in the interval. ACT 112: Negative or not required by law. Electronically signed by: Weston Cisneros M.D. 01/31/2022 4:34 PM
--- NOTE | 2022-01-31 17:31 | History & Physical Report ---
Date of Service January 31, 2022 Assessment & Plan (1) Alcoholic hepatitis: (2) Hyperbilirubinemia: Plan: Patient is 36y/o F with PMH EtOH abuse, pancreatitis, prior alcoholic hepatitis, cirrhosis, ascites, asthma, depression, anxiety, ADHD presented to the ER with complaint of yellow coloration of skin. Started drinking alcohol again 2 weeks ago. Reports was drinking 6 airplane bottles of 99 proof alcohol daily. Reports last drink was 4 days ago. 4 days ago had upper abdominal discomfort which has since resolved In ER afebrile, Vitals stable. No leukocytosis, Hgb: 11, Plt: 75, T bili: 20, direct bili: 13.5, AST: 90, ALT: 23, alk phos: 366, INR: 1.9. Lipase: 10 CT ABD/PELVIS: No bowel wall thickening or obstruction. 2. Normal appendix. 3. Colonic diverticulosis. No evidence for acute diverticulitis. 4. Cirrhotic liver with splenomegaly, unchanged. 5. Diffuse gallbladder wall thickening/edema. This is also unchanged and is likely due to the patient's cirrhosis. 6. Trace ascites. This has significantly improved in the interval. Patient alert and oriented x3 with no change in mentation No current abdominal pain. Trace ascites noted on CT abdomen pelvis. No leukocytosis, no fever, chills. SBP less likely at this time Maddrey score >32. Will start prednisone 40mg daily Patient needs to avoid alcohol Continue Lasix, spironolactone GI consult CBC, CMP in a.m. (3) Alcohol abuse: Plan: Currently following outpatient alcohol rehab Started drinking again 2 weeks ago. Last drink reported 4 days ago. Alcohol level undetectable Was given banana bag in ER Abstain from alcohol Folic acid, thiamine, multivitamin daily (4) Hypokalemia: (5) Hypomagnesemia: (6) Hyponatremia: Plan: K: 2.7. Magnesium: 1.3. Na:125 corrected Given 2K riders in ER Replace potassium, magnesium Monitor electrolytes (7) Asthma: Plan: Signs of exacerbation Continue home inhalers (8) ADD (attention deficit disorder): (9) Anxiety: Plan: Continue Adderall, hydroxyzine as needed (10) Tobacco use: Plan: Smoking cessation encouraged Nicotine patch DVT Prophylaxis SCDs Full Code as per discussion with pt Follows with Dr Bunch for routine care Pt was seen and care coordinated with Dr Crawford. See addendum History of Present Illness Primary Care Provider: Zaina Bunch MD Patient is 36y/o F with PMH EtOH abuse, pancreatitis, prior alcoholic hepatitis, asthma, depression, anxiety, ADHD presented to the ER with complaint of yellow coloration of skin. Patient reports started drinking alcohol again 2 weeks ago. Reports was drinking 6 airplane bottles of 99 proof alcohol daily. Reports last drink was 4 days ago. Patient states had 1 episode of vomiting and sweats. Denies other withdrawal symptoms. Patient states 1 week ago noticed that her skin and eyes were appearing yellow and her urine was dark color. She reports 4 days ago had bilateral upper abdominal discomfort. Patient states no further abdominal discomfort and currently denies any abdominal pain. She denies noting any increased abdominal distention. Patient reports is following with outpatient alcoholic rehab. Denies fever, chills, melena, hematochezia, hematemesis, diarrhea, constipation, LLOYD, dizziness, syncope, vision changes, neck pain, CP, SOB, orthopnea, palpitations, cough, sore throat, choking, otalgia, rhinorrhea, paresthesias, weakness, extremity weakness, extremity edema, rashes, urinary symptoms. Allergies Allergy/AdvReac Type Severity Reaction Status Date / Time banana Allergy Intermediate RASH, Verified 01/31/22 16:21 THROAT SLIGHTLY SWOLLEN Penicillins Allergy Unknown HAPPENED Verified 01/31/22 16:21 A CHILD Home Medications Medication Instructions Recorded Confirmed Type albuterol sulfate 90 mcg/actuation 1 inh INHALATION QID PRN 06/24/20 01/31/22 History aerosol inhaler (ProAir HFA) budesonide-formoterol HFA 160 2 puff INHALATION BID 06/20/21 01/31/22 History mcg-4.5 mcg/actuation aerosol inhaler (Symbicort) dextroamphetamine-amphetamine 5 mg 5 mg PO BID 06/20/21 01/31/22 History tablet (Adderall) ipratropium 20 mcg-albuterol 100 1 puff INHALATION BID 06/20/21 01/31/22 History mcg/actuation mist for inhalation (Combivent Respimat) loratadine 10 mg tablet 10 mg PO QAM 06/20/21 01/31/22 History montelukast 10 mg tablet 10 mg PO HS 06/20/21 01/31/22 History omeprazole 20 mg capsule,delayed 20 mg PO QAM 06/20/21 01/31/22 History release azelastine 137 mcg (0.1 %) nasal 1 spray INTRANASAL BID 10/03/21 01/31/22 History spray aerosol fluticasone propionate 50 2 spray INTRANASAL DAILY 10/03/21 01/31/22 History mcg/actuation nasal spray,suspension multivitamin 1 tab PO QAM 10/03/21 01/31/22 History thiamine HCl (vitamin B1) 100 mg 100 mg PO QAM #30 tab 10/09/21 01/31/22 Rx tablet ondansetron HCl 4 mg tablet 4 mg PO Q8H PRN 10/31/21 01/31/22 History tramadol 50 mg tablet 50 mg PO Q6H PRN 10/31/21 01/31/22 History furosemide 20 mg tablet 20 mg PO PM 11/20/21 01/31/22 History furosemide 40 mg tablet (Lasix) 40 mg PO QAM 11/20/21 01/31/22 History spironolactone 50 mg tablet 50 mg PO PM 11/20/21 01/31/22 History ascorbic acid (vitamin C) 500 mg 500 mg PO QAM 01/31/22 01/31/22 History tablet (Vitamin C) cholecalciferol (vitamin D3) 50 2,000 mcg PO QAM 01/31/22 01/31/22 History mcg (2,000 unit) capsule (Vitamin D3) hydroxyzine HCl 25 mg tablet 1 mg PO TID PRN 01/31/22 01/31/22 History milk thistle 500 mg capsule 0 mg PO QAM 01/31/22 01/31/22 History spironolactone 100 mg tablet 100 mg PO DAILY 01/31/22 01/31/22 History tiotropium bromide 2.5 2 puff INHALATION DAILY 01/31/22 01/31/22 History mcg/actuation mist for inhalation (Spiriva Respimat) prbtmpo-fuat-rihsa-oreg-capryl 0 mg PO QAM 01/31/22 01/31/22 History Past Med/Surg History Medical History ADD (attention deficit disorder) Alcohol abuse Alcoholic hepatitis Alcoholic pancreatitis Allergic sinusitis Anxiety Asthma Depression Fatty liver History of abdominal paracentesis Tobacco use Surgical History History of esophagogastroduodenoscopy (EGD) Family History Grandmother Breast cancer Grandfather Heart disease Social History Smoking Status: Current every day smoker Tobacco Type: Cigarettes Cigarettes Per Day: 4; Second Hand Exposure: Yes; Hx Alcohol Use: Yes Alcohol type: hard liquor Hx Substance Use: No Preferred Language: Tunisian 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 Ability: Effective Project Admin Required: No Beliefs That Will Affect Care: None marital status: Single Current Living Situation: Significant Other Current Living Situation Comment: Apartment current occupational status: employed How many Children do You have: 0 Feels Safe at Home: Yes Assistive Devices: None Review of Systems Review of Systems: All systems reviewed & are unremarkable except as noted in HPI & below Physical Exam Physical Exam: General: no distress, WDWN Head: normocephalic, atraumatic Eyes: PERRL, EOM's intact, conjunctiva non-injected, +icteric ENT: normal inspection external ears, nose, mucous membranes moist Neck: supple, trachea midline, non-tender Lungs: clear, no respiratory distress, no wheezing/rhonchi/rales CV: RRR, no murmur, no JVD, no pretibial edema Abd: normal BS, soft, non-tender to palpation Ext: no cyanosis, no calf tenderness Neuro: A&O x 3, no focal deficits noted, normal affect Skin: +jaundice, warm, dry Results & Data Results & Data ([facility]) Vital Signs (Past 12 Hours) Vital Signs Temp Pulse Pulse Resp BP BP Pulse Ox 01/31/22 16:50 94 H 20 119/72 98 01/31/22 15:00 72 20 132/76 98 01/31/22 13:29 36.7 C 120 H 18 109/75 99 Laboratory Results Short CBC 01/31/22 Range/Units 14:21 WBC 8.63 (4.8-10.8) K/uL Hgb 11.4 L (12.0-16.0) g/dL Hct 33.7 L (37-47) % Plt Count 75 L (130-400) K/uL BMP 01/31/22 01/31/22 14:21 14:21 Sodium 124 L Potassium TNP 2.7 L Chloride 83 L Carbon Dioxide 24 BUN 3 L Creatinine 1.00 Glucose 148 H Calcium 7.7 L Liver Function 01/31/22 01/31/22 01/31/22 Range/Units 14:21 14:21 14:21 Total Bilirubin 20.4 H (0.2-1.0) mg/dl Direct Bilirubin TNP Cancelled 13.5 H AST TNP 90 H ALT 23 (7-52) U/L Alkaline Phosphatase 366 H (34-104) U/L Albumin 3.6 (3.4-5.0) gm/dl Urine 01/31/22 Range/Units 14:22 Urine Color Yellow Urine Appearance Clear (Clear) Urine pH 8.0 H (4.5-7.5) Ur Specific [place] 1.012 (1.000-1.030) Urine Protein Negative (Negative) Urine Glucose (UA) Negative (Negative) Diagnostic Findings Abdomen/Pelvis CT 01/31/22 15:[address] WITH IV CONTRAST CT DOSE: 498.42 mGy.cm HISTORY: jaundice, etoh cirrhosis TECHNIQUE: Multiaxial CT images of the abdomen and pelvis were performed following the use of intravenous contrast. A dose lowering technique was utilized adhering to the principles of ALARA. COMPARISON STUDY: Abdomen and pelvis CT 10/22/2021. FINDINGS: Mild dependent changes noted at the lung bases. No pneumoperitoneum. No pneumatosis. No acute fractures within the visualized osseous structures. Small fat-containing right inguinal hernia. This remains unchanged. Nodular contour to the liver consistent with cirrhosis. The liver remains mildly enlarged. There is heterogeneous enhancement within the liver with evidence for steatosis. This remains unchanged. The spleen remains enlarged measuring 16 cm in length. The adrenal glands, pancreas, and kidneys are unremarkable. No hydronephrosis. Normal bladder. The uterus and ovaries are unremarkable. Trace pelvic free fluid. There is also trace perihepatic ascites. This has significantly improved in the interval. The main portal vein is patent. Diffuse gallbladder wall thickening/edema remains unchanged. This is likely due to the patient's cirrhosis. No retroperitoneal lymphadenopathy. Normal caliber abdominal aorta. No bowel wall thickening or obstruction. Mild thickening at the sigmoid colon is likely due to underdistention and muscular hypertrophy from the diverticulosis. No evidence for acute diverticulitis. Normal appendix. IMPRESSION: 1. No bowel wall thickening or obstruction. 2. Normal appendix. 3. Colonic diverticulosis. No evidence for acute diverticulitis. 4. Cirrhotic liver with splenomegaly, unchanged. 5. Diffuse gallbladder wall thickening/edema. This is also unchanged and is likely due to the patient's cirrhosis. 6. Trace ascites. This has significantly improved in the interval. ACT 112: Negative or not required by law. Electronically signed by: Weston Cisneros M.D. 01/31/2022 4:34 PM Supervising Physician Co-Signing Physician Notes Patient was seen and examined at bedside independently. Reviewed chart, discussed case with Sonya MEYERS and agree with her documentation. In summary, this is a 36 year old female with alcohol abuse, alcoholic hepatitis, cirrhosis, ascites with presented to the ED for evaluation for jaundice. She was admitted 09/23-10/09 for alcoholic hepatitis but did not require pharmacologic therapy as DG <32. She was again admitted 10/10- 10/26 for rectal bleeding and during this admission treated with pentoxyfylline for alcoholic hepatitis, also had paracentesis negative for SBP. She had abstained alcohol since that time until 2 weeks ago when she relapsed and was drinking 6 airplane bottles of 99 proof alcohol daily. However over the weekend, she noticed jaundice and stopped drinking 4 days back. Also had RUQ abdominal pain. She called her GI doctor 2 days back for her jaundice and pain and was instructed to come to ED for evaluation but did not come until today. She currently feels good. No more pain. no fever, chills, cough, cold, dysuria, diarrhea, abd pain or any other infective source. She is severely icteric, but AAO, hemodynamically stable, afebrile. Chest clear, heart sounds normal, abdomen benign, no edema. Reviewed labs and imaging. Her DF score is >32 (54), hence will start on prednisolone 40 mg daily and will repeat labs for responsiveness to steroids, no infection concern at this point. Consult GI. Also has hyponatremia, hypokalemia, hypomagnesemia which will be repleted and recheck in am. Low concern for withdrawal as she is four days since last drinking and feels fine. Recommended strongly to abstain alcohol completely from this point forward. Rest as per note above.
[2022-01-31] MEDS: POTASSIUM CHLORIDE / WTR 10 MEQ/100 ML PLCT IV SCH ×2 (17:40→19:26)
[2022-01-31 18:25] LABS: Appearance Urine Clear (Clear); Bilirubin Urine Negative (Negative); Blood Urine Negative (Negative); Color Urine Yellow; Glucose Urine UA Negative (Negative); Ketones Urine Negative (Negative); Leukocyte Esterase Urine Negative (Negative); Nitrite Urine Negative (Negative); Protein Urine Negative (Negative); Specific Gravity Urine 1.012 (1.000-1.030); Urobilinogen Urine Negative (Negative)
[2022-01-31 18:40] LABS: INR 1.9 (0.9-1.1); Prothrombin Time 19.3 Seconds (9.0-12.0)
[2022-01-31] MEDS ORDERED: POTASSIUM CHLORIDE CRTAB 20 MEQ TABCR PO STA (18:47)
[2022-01-31] MEDS ORDERED: POTASSIUM CHLORIDE CRTAB 20 MEQ TABCR PO ONE (20:00)
[2022-01-31] MEDS ORDERED: POLYETHYLENE (MIRALAX) 17 GM PACK PO PRN (20:44)
[2022-01-31] MEDS ORDERED: hydrOXYzine HCl 25 MG TAB PO PRN (20:44)
[2022-01-31] MEDS ORDERED: ACETAMINOPHEN 325 MG TAB PO PRN (20:44)
[2022-01-31] MEDS ORDERED: ONDANSETRON INJ 2 MG/ML 2 ML VIAL IV PRN (20:44)
[2022-01-31] MEDS ORDERED: IPRATROPIUM BROMIDE/ALBUTEROL respimat INH INH SCH (21:00)
[2022-01-31] MEDS ORDERED: ALBUTEROL HFA 8 GM INHALER INH PRN (21:18)
[2022-01-31] MEDS: MAGNESIUM SULFATE / D5W 1 GM/100 ML BAG IV SCH (22:26)
[2022-01-31] MEDS: FUROSEMIDE 20 MG TAB PO SCH (22:27)
[2022-01-31] MEDS: NICOTINE 14 MG/24 HR PATCH TD SCH (22:27)
[2022-01-31] MEDS: AMPHETAMINE ASP/SULF/DEXTRAMPH 5 MG TAB PO SCH (22:27)
[2022-01-31] MEDS: predniSONE 20 MG TAB PO SCH (22:28)
[2022-01-31] MEDS: SPIRONOLACTONE 25 MG TAB PO SCH (22:28)
[2022-01-31] MEDS: MONTELUKAST SODIUM 10 MG TABLET PO SCH (22:28)
[2022-01-31] MEDS: AZELASTINE HCL 0.1% NASAL 200 SPRAYS/27,400 MCG BTL NAE SCH (22:28)
[2022-01-31] MEDS: MELATONIN 3 MG TAB PO PRN (22:58)
--- NOTE | 2022-01-31 23:11 | Emergency Department Note ---
Impression & Plan Alcoholic hepatitis, Alcohol abuse, Hyperbilirubinemia, Hypomagnesemia, Acute hyponatremia, Hypokalemia ED Provider Note NAME: CARMEN BOUCHER AGE: 36 SEX: F ARRIVES VIA: Walk-In INFORMANT: Patient ED PROVIDER(S): Nii Ariza MD CHIEF COMPLAINT: Cirrhosis PLAN: Disposition: Admit MEDICAL DECISION MAKING: The patient is a pleasant 36-year-old woman with a past medical history of alcohol abuse and alcoholic cirrhosis who presents to the emergency department with worsening jaundice over the past week in the setting of her report of recently relapsing and drinking alcohol several weeks ago for a couple of weeks before stopping. She denies abdominal pain but admits she has become more edematous. She denies any fevers, chills, cough, congestion, vomiting or diarrhea. She was referred to the emergency department by her [facility] GI office. On arrival, the patient is chronically ill-appearing but no distress, afebrile with heart in the 120s and vital signs otherwise stable. She has overt jaundice and scleral icterus. She has 1+ edema of her bilateral lower extremities. WBC normal limits.H11.4/33.7 similar to prior range values. Platelets 75K decreased from prior in the setting of the patient cirrhosis. INR 1.9 which is similar to prior values in September but worsened from recent in the setting of a relapse. Chemistry without metabolic acidosis. Magnesium 1.3, phosphorus 2.4. LFTs with worsening compared to recent total bilirubin 20.4 with direct bilirubin 13.5, AST 90 and alk phos 366. Lipase is not elevated. UA without evidence of infection. Medical alcohol was undetectable. Covid-19 RNA, NAAT negative. CT of the abdomen pelvis was performed and demonstrates patient's known liver cirrhosis with unchanged splenomegaly. Diffuse gallbladder wall thickening edema are seen however unchanged and patient has no abdominal tenderness. Trace ascites is seen and this is improved from previous. Given the patient's decompensated cirrhosis reasonable to admit the patient for further management. MELD 31. Case was discussed with Beatrice Suazo, [facility] PAC, with Dr. Crawford, [facility] hospitalist who will evaluate the patient for admission. Triage Nursing notes reviewed and agree them. Prior medical records reviewed Vital Signs: reviewed and remarkable for no significant abnormalities Differential diagnosis: Appendicitis, ovarian cyst, ovarian torsion, ectopic , TOA, PID, infections, diverticulitis, UTI, obstruction, mesenteric ischemia, aortic pathology, inflammatory bowel disease, renal colic, PUD, pancreatitis, biliary pathology, hernia, volvulus, constipation, as well as other pathologies. ER treatment provided: See below. Diagnostics interpreted by me: Cardiac Monitoring: An order for continuous cardiac monitoring was placed and demonstrated Sinus tachycardia, 120 bpm, no ectopy. Laboratory studies: See below Imaging studies: See below Consultation(s): Case was discussed with Beatrice Suazo, [facility] PAC, with Dr. Crawford, [facility] hospitalist who will evaluate the patient for admission. HPI: The patient is a pleasant 36-year-old woman with a past medical history of alcohol abuse and alcoholic cirrhosis who presents to the emergency department with worsening jaundice over the past week in the setting of her report of recently relapsing and drinking alcohol several weeks ago for a couple of weeks before stopping. She denies abdominal pain but admits she has become more edematous. She denies any fevers, chills, cough, congestion, vomiting or diarrhea. She was referred to the emergency department by her [facility] GI office. ROS: See above HPI for pertinent positives & negatives. A total of 10 systems reviewed and were otherwise negative. VITALS:See Below PHYSICAL EXAMINATION: GENERAL: Awake, alert, chronically ill-appearing, in no distress HENT: Normocephalic, atraumatic. Oropharynx unremarkable. EYES: Normal conjunctiva. Sclera icteric. NECK: Supple. No nuchal rigidity. FROM. No JVD. RESPIRATORY: Clear to auscultation. CARDIAC: Tachycardic rate, normal rhythm. Extremities warm and well perfused. Pulses equal. ABDOMEN: Soft, non-distended. No tenderness to palpation. No rebound or guarding. No masses. RECTAL: Deferred. MUSCULOSKELETAL: Chest examination reveals no tenderness. The back is symmetrical on inspection without obvious abnormality. There is no CVA tenderness to palpation. No joint edema. LOWER EXTREMITIES: Calves are equal size bilaterally and non-tender. No edema. No discoloration. NEURO: Normal sensorium. No sensory or motor deficits noted. SKIN: No rash. Severe jaundice noted. Nii Ariza MD Past Med/Surg History Medical History ADD (attention deficit disorder) Alcohol abuse Alcoholic hepatitis Alcoholic pancreatitis Allergic sinusitis Anxiety Asthma Depression Fatty liver History of abdominal paracentesis Tobacco use Surgical History History of esophagogastroduodenoscopy (EGD) Family History Grandmother Breast cancer Grandfather Heart disease Social History Smoking Status: Former smoker Tobacco Type: Cigarettes Cigarettes Per Day: 4; Second Hand Exposure: No; Do You Dip or Chew Tobacco: No; Hx Alcohol Use: Yes Alcohol type: hard liquor Hx Substance Use: No Preferred Language: [place] 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 Ability: Effective 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 Required: No Beliefs That Will Affect Care: None marital status: Single Current Living Situation: Spouse Current Living Situation Comment: Apartment current occupational status: employed How many Children do You have: 0 Other Information That Helps Us Care for You: No Feels Safe at Home: Yes Safety Concerns: Feels Safe At This Time Assistive Devices: Glasses Allergies Allergies Allergy/AdvReac Type Severity Reaction Status Date / Time banana Allergy Intermediate RASH, Verified 01/31/22 16:21 THROAT SLIGHTLY SWOLLEN Penicillins Allergy Unknown HAPPENED Verified 01/31/22 16:21 A CHILD Home Meds Home Medications Medication Instructions Recorded Confirmed albuterol sulfate 90 mcg/actuation 1 inh INHALATION QID PRN 06/24/20 01/31/22 aerosol inhaler (ProAir HFA) budesonide-formoterol HFA 160 2 puff INHALATION BID 06/20/21 01/31/22 mcg-4.5 mcg/actuation aerosol inhaler (Symbicort) dextroamphetamine-amphetamine 5 mg 5 mg PO BID 06/20/21 01/31/22 tablet (Adderall) ipratropium 20 mcg-albuterol 100 1 puff INHALATION BID 06/20/21 01/31/22 mcg/actuation mist for inhalation (Combivent Respimat) loratadine 10 mg tablet 10 mg PO QAM 06/20/21 01/31/22 montelukast 10 mg tablet 10 mg PO HS 06/20/21 01/31/22 omeprazole 20 mg capsule,delayed 20 mg PO QAM 06/20/21 01/31/22 release azelastine 137 mcg (0.1 %) nasal 1 spray INTRANASAL BID 10/03/21 01/31/22 spray aerosol fluticasone propionate 50 2 spray INTRANASAL DAILY 10/03/21 01/31/22 mcg/actuation nasal spray,suspension multivitamin 1 tab PO QAM 10/03/21 01/31/22 ondansetron HCl 4 mg tablet 4 mg PO Q8H PRN 10/31/21 01/31/22 tramadol 50 mg tablet 50 mg PO Q6H PRN 10/31/21 01/31/22 furosemide 20 mg tablet 20 mg PO PM 11/20/21 01/31/22 furosemide 40 mg tablet (Lasix) 40 mg PO QAM 11/20/21 01/31/22 spironolactone 50 mg tablet 50 mg PO PM 11/20/21 01/31/22 ascorbic acid (vitamin C) 500 mg 500 mg PO QAM 01/31/22 01/31/22 tablet (Vitamin C) cholecalciferol (vitamin D3) 50 2,000 mcg PO QAM 01/31/22 01/31/22 mcg (2,000 unit) capsule (Vitamin D3) hydroxyzine HCl 25 mg tablet 1 mg PO TID PRN 01/31/22 01/31/22 milk thistle 500 mg capsule 0 mg PO QAM 01/31/22 01/31/22 spironolactone 100 mg tablet 100 mg PO DAILY 01/31/22 01/31/22 tiotropium bromide 2.5 2 puff INHALATION DAILY 01/31/22 01/31/22 mcg/actuation mist for inhalation (Spiriva Respimat) [id number]-capryl 0 mg PO QAM 01/31/22 01/31/22 Previous Rx's Medication Instructions Recorded thiamine HCl (vitamin B1) 100 mg 100 mg PO QAM #30 tab 10/09/21 tablet Results & Data (ED) Vital Signs Vital Signs - 24 hr 01/31/22 13:29 01/31/22 14:28 01/31/22 14:30 Temperature 36.7 C Temperature Source Temporal Artery Scan Pulse Rate 120 H 104 H 100 H Pulse Rate [Left Finger] Pulse Rhythm [Left Finger] Pulse Strength [Left Finger] Respiratory Rate 18 26 H 23 Respiratory Effort / Characteristics Respiratory Depth Respiratory Pattern Blood Pressure 109/75 Blood Pressure [Left Arm] Blood Pressure Mean 86 Blood Pressure Mean [Left Arm] Blood Pressure Position [Left Arm] Pulse Oximetry 99 Oxygen Delivery Method Room Air Sepsis Recent Fever Within 48 Hours No Sepsis New/Unexplained Change in Mental Status No Sepsis Action Taken by Nursing No Action Required 01/31/22 14:40 01/31/22 14:50 01/31/22 15:00 Temperature Temperature Source Pulse Rate 95 H 103 H 99 H Pulse Rate [Left Finger] 72 Pulse Rhythm [Left Finger] Pulse Strength [Left Finger] Respiratory Rate 19 20 27 H Respiratory Effort / Characteristics Respiratory Depth Respiratory Pattern Blood Pressure Blood Pressure [Left Arm] 132/76 Blood Pressure Mean Blood Pressure Mean [Left Arm] 94 Blood Pressure Position [Left Arm] Sitting Pulse Oximetry 98 Oxygen Delivery Method Sepsis Recent Fever Within 48 Hours Sepsis New/Unexplained Change in Mental Status Sepsis Action Taken by Nursing 01/31/22 15:10 01/31/22 16:50 01/31/22 17:08 Temperature Temperature Source Pulse Rate 100 H 94 H Pulse Rate [Left Finger] 94 H Pulse Rhythm [Left Finger] Regular Pulse Strength [Left Finger] Normal Respiratory Rate 24 20 20 Respiratory Effort / Characteristics Non-Labored Spontaneous Respiratory Depth Normal Respiratory Pattern Regular Blood Pressure 119/72 Blood Pressure [Left Arm] 119/72 Blood Pressure Mean 87 Blood Pressure Mean [Left Arm] 87 Blood Pressure Position [Left Arm] Sitting Pulse Oximetry 98 98 Oxygen Delivery Method Room Air Sepsis Recent Fever Within 48 Hours Sepsis New/Unexplained Change in Mental Status Sepsis Action Taken by Nursing 01/31/22 17:10 01/31/22 17:20 01/31/22 17:30 Temperature Temperature Source Pulse Rate 98 H 93 H 99 H Pulse Rate [Left Finger] Pulse Rhythm [Left Finger] Pulse Strength [Left Finger] Respiratory Rate 24 13 15 Respiratory Effort / Characteristics Respiratory Depth Respiratory Pattern Blood Pressure Blood Pressure [Left Arm] Blood Pressure Mean Blood Pressure Mean [Left Arm] Blood Pressure Position [Left Arm] Pulse Oximetry 97 98 Oxygen Delivery Method Sepsis Recent Fever Within 48 Hours Sepsis New/Unexplained Change in Mental Status Sepsis Action Taken by Nursing 01/31/22 17:40 01/31/22 17:50 01/31/22 18:00 Temperature Temperature Source Pulse Rate 105 H 104 H 100 H Pulse Rate [Left Finger] Pulse Rhythm [Left Finger] Pulse Strength [Left Finger] Respiratory Rate 31 H 21 21 Respiratory Effort / Characteristics Respiratory Depth Respiratory Pattern Blood Pressure Blood Pressure [Left Arm] Blood Pressure Mean Blood Pressure Mean [Left Arm] Blood Pressure Position [Left Arm] Pulse Oximetry Oxygen Delivery Method Sepsis Recent Fever Within 48 Hours Sepsis New/Unexplained Change in Mental Status Sepsis Action Taken by Nursing 01/31/22 18:10 Temperature Temperature Source Pulse Rate 96 H Pulse Rate [Left Finger] Pulse Rhythm [Left Finger] Pulse Strength [Left Finger] Respiratory Rate 19 Respiratory Effort / Characteristics Respiratory Depth Respiratory Pattern Blood Pressure Blood Pressure [Left Arm] Blood Pressure Mean Blood Pressure Mean [Left Arm] Blood Pressure Position [Left Arm] Pulse Oximetry Oxygen Delivery Method Sepsis Recent Fever Within 48 Hours Sepsis New/Unexplained Change in Mental Status Sepsis Action Taken by Nursing Laboratory Data Result diagrams: 01/31/22 14:21 01/31/22 14:21 Lab Results 01/31/22 01/31/22 01/31/22 Range/Units 14:21 14:21 14:21 WBC 8.63 (4.8-10.8) K/uL RBC 3.64 L (4.2-5.4) M/uL Hgb 11.4 L (12.0-16.0) g/dL Hct 33.7 L (37-47) % MCV 92.6 (80-100) fL MCH 31.3 (25-34) pg MCHC 33.8 (32-36) g/dL RDW Std Deviation 53.6 H (36.4-46.3) fL RDW Coeff of Yasmine 16.0 H (11.5-14.5) % Plt Count 75 L (130-400) K/uL MPV 11.8 H (7.4-10.4) fL Immature Gran % (Auto) 0.3 % Neut % (Auto) 81.5 % Lymph % (Auto) 9.3 % [place] % (Auto) 8.5 % Eos % (Auto) 0.3 % Baso % (Auto) 0.1 % Neut # (Auto) 7.03 H (1.4-6.5) K/uL Lymph # (Auto) 0.80 L (1.2-3.4) K/uL [place] # (Auto) 0.73 H (0.11-0.59) K/uL Eos # (Auto) 0.03 (0-0.5) K/uL Baso # (Auto) 0.01 (0-0.2) K/uL Immature Gran # (Auto) 0.03 H (0.00-0.02) K/uL Toxic Vacuolation 1+ Platelet Estimate Decreased L (Normal) PT (9.0-12.0) Seconds INR (0.9-1.1) Sodium 124 L (136-145) mmol/L Potassium TNP Chloride 83 L (98-107) mmol/L Carbon Dioxide 24 (21-32) mmol/L Anion Gap 17 H (3-11) BUN 3 L (6-23) mg/dl Creatinine 1.00 (0.6-1.2) mg/dl Est Cr Clr Drug Dosing 69.5 ml/min Est GFR ( Amer) 85.1 ml/min Est GFR (Non-Af Amer) 73.5 ml/min BUN/Creatinine Ratio 3.0 L (10-20) Glucose 148 H (70-99(Fasting)) mg/dl Calcium 7.7 L (8.5-10.1) mg/dl Phosphorus (2.5-4.9) mg/dl Magnesium (1.7-2.4) mg/dl Total Bilirubin 20.4 H (0.2-1.0) mg/dl Direct Bilirubin TNP Cancelled AST TNP ALT 23 (7-52) U/L Alkaline Phosphatase 366 H (34-104) U/L Total Protein 7.0 (6.0-8.3) gm/dl Albumin 3.6 (3.4-5.0) gm/dl Globulin 3.4 (2.5-4.0) gm/dl Albumin/Globulin Ratio 1.1 (0.9-2) Lipase TNP Urine Color Urine Appearance (Clear) Urine pH (4.5-7.5) Ur Specific Crawford (1.000-1.030) Urine Protein (Negative) Urine Glucose (UA) (Negative) Urine Ketones (Negative) Urine Blood (Negative) Urine Nitrite (Negative) Urine Bilirubin (Negative) Urine Urobilinogen (Negative) Ur Leukocyte Esterase (Negative) POC Ur Test (NEG) Ethyl Alcohol mg/dL (<10.0) mg/dl SARS-CoV-2, RNA, NAAT (NEGATIVE) 01/31/22 01/31/22 01/31/22 Range/Units 14:21 14:21 14:21 WBC (4.8-10.8) K/uL RBC (4.2-5.4) M/uL Hgb (12.0-16.0) g/dL Hct (37-47) % MCV (80-100) fL MCH (25-34) pg MCHC (32-36) g/dL RDW Std Deviation (36.4-46.3) fL RDW Coeff of Yasmine (11.5-14.5) % Plt Count (130-400) K/uL MPV (7.4-10.4) fL Immature Gran % (Auto) % Neut % (Auto) % Lymph % (Auto) % [place] % (Auto) % Eos % (Auto) % Baso % (Auto) % Neut # (Auto) (1.4-6.5) K/uL Lymph # (Auto) (1.2-3.4) K/uL [place] # (Auto) (0.11-0.59) K/uL Eos # (Auto) (0-0.5) K/uL Baso # (Auto) (0-0.2) K/uL Immature Gran # (Auto) (0.00-0.02) K/uL Toxic Vacuolation Platelet Estimate (Normal) PT (9.0-12.0) Seconds INR (0.9-1.1) Sodium (136-145) mmol/L Potassium 2.7 L Chloride (98-107) mmol/L Carbon Dioxide (21-32) mmol/L Anion Gap (3-11) BUN (6-23) mg/dl Creatinine (0.6-1.2) mg/dl Est Cr Clr Drug Dosing ml/min Est GFR ( Amer) ml/min Est GFR (Non-Af Amer) ml/min BUN/Creatinine Ratio (10-20) Glucose (70-99(Fasting)) mg/dl Calcium (8.5-10.1) mg/dl Phosphorus (2.5-4.9) mg/dl Magnesium 1.3 L (1.7-2.4) mg/dl Total Bilirubin (0.2-1.0) mg/dl Direct Bilirubin 13.5 H AST 90 H ALT (7-52) U/L Alkaline Phosphatase (34-104) U/L Total Protein (6.0-8.3) gm/dl Albumin (3.4-5.0) gm/dl Globulin (2.5-4.0) gm/dl Albumin/Globulin Ratio (0.9-2) Lipase 10 L Urine Color Urine Appearance (Clear) Urine pH (4.5-7.5) Ur Specific Crawford (1.000-1.030) Urine Protein (Negative) Urine Glucose (UA) (Negative) Urine Ketones (Negative) Urine Blood (Negative) Urine Nitrite (Negative) Urine Bilirubin (Negative) Urine Urobilinogen (Negative) Ur Leukocyte Esterase (Negative) POC Ur Test (NEG) Ethyl Alcohol mg/dL < 10.0 (<10.0) mg/dl SARS-CoV-2, RNA, NAAT (NEGATIVE) 01/31/22 01/31/22 01/31/22 Range/Units 14:22 14:22 14:22 WBC (4.8-10.8) K/uL RBC (4.2-5.4) M/uL Hgb (12.0-16.0) g/dL Hct (37-47) % MCV (80-100) fL MCH (25-34) pg MCHC (32-36) g/dL RDW Std Deviation (36.4-46.3) fL RDW Coeff of Yasmine (11.5-14.5) % Plt Count (130-400) K/uL MPV (7.4-10.4) fL Immature Gran % (Auto) % Neut % (Auto) % Lymph % (Auto) % [place] % (Auto) % Eos % (Auto) % Baso % (Auto) % Neut # (Auto) (1.4-6.5) K/uL Lymph # (Auto) (1.2-3.4) K/uL [place] # (Auto) (0.11-0.59) K/uL Eos # (Auto) (0-0.5) K/uL Baso # (Auto) (0-0.2) K/uL Immature Gran # (Auto) (0.00-0.02) K/uL Toxic Vacuolation Platelet Estimate (Normal) PT (9.0-12.0) Seconds INR (0.9-1.1) Sodium (136-145) mmol/L Potassium Chloride (98-107) mmol/L Carbon Dioxide (21-32) mmol/L Anion Gap (3-11) BUN (6-23) mg/dl Creatinine (0.6-1.2) mg/dl Est Cr Clr Drug Dosing ml/min Est GFR ( Amer) ml/min Est GFR (Non-Af Amer) ml/min BUN/Creatinine Ratio (10-20) Glucose (70-99(Fasting)) mg/dl Calcium (8.5-10.1) mg/dl Phosphorus (2.5-4.9) mg/dl Magnesium (1.7-2.4) mg/dl Total Bilirubin (0.2-1.0) mg/dl Direct Bilirubin AST ALT (7-52) U/L Alkaline Phosphatase (34-104) U/L Total Protein (6.0-8.3) gm/dl Albumin (3.4-5.0) gm/dl Globulin (2.5-4.0) gm/dl Albumin/Globulin Ratio (0.9-2) Lipase Urine Color Yellow Urine Appearance Clear (Clear) Urine pH 8.0 H (4.5-7.5) Ur Specific Crawford 1.012 (1.000-1.030) Urine Protein Negative (Negative) Urine Glucose (UA) Negative (Negative) Urine Ketones Negative (Negative) Urine Blood Negative (Negative) Urine Nitrite Negative (Negative) Urine Bilirubin Negative (Negative) Urine Urobilinogen Negative (Negative) Ur Leukocyte Esterase Negative (Negative) POC Ur Test NEG (NEG) Ethyl Alcohol mg/dL (<10.0) mg/dl SARS-CoV-2, RNA, NAAT NEGATIVE (NEGATIVE) 01/31/22 01/31/22 Range/Units 18:11 18:11 WBC (4.8-10.8) K/uL RBC (4.2-5.4) M/uL Hgb (12.0-16.0) g/dL Hct (37-47) % MCV (80-100) fL MCH (25-34) pg MCHC (32-36) g/dL RDW Std Deviation (36.4-46.3) fL RDW Coeff of Yasmine (11.5-14.5) % Plt Count (130-400) K/uL MPV (7.4-10.4) fL Immature Gran % (Auto) % Neut % (Auto) % Lymph % (Auto) % [place] % (Auto) % Eos % (Auto) % Baso % (Auto) % Neut # (Auto) (1.4-6.5) K/uL Lymph # (Auto) (1.2-3.4) K/uL [place] # (Auto) (0.11-0.59) K/uL Eos # (Auto) (0-0.5) K/uL Baso # (Auto) (0-0.2) K/uL Immature Gran # (Auto) (0.00-0.02) K/uL Toxic Vacuolation Platelet Estimate (Normal) PT 19.3 H (9.0-12.0) Seconds INR 1.9 H (0.9-1.1) Sodium (136-145) mmol/L Potassium Chloride (98-107) mmol/L Carbon Dioxide (21-32) mmol/L Anion Gap (3-11) BUN (6-23) mg/dl Creatinine (0.6-1.2) mg/dl Est Cr Clr Drug Dosing ml/min Est GFR ( Amer) ml/min Est GFR (Non-Af Amer) ml/min BUN/Creatinine Ratio (10-20) Glucose (70-99(Fasting)) mg/dl Calcium (8.5-10.1) mg/dl Phosphorus 2.4 L (2.5-4.9) mg/dl Magnesium (1.7-2.4) mg/dl Total Bilirubin (0.2-1.0) mg/dl Direct Bilirubin AST ALT (7-52) U/L Alkaline Phosphatase (34-104) U/L Total Protein (6.0-8.3) gm/dl Albumin (3.4-5.0) gm/dl Globulin (2.5-4.0) gm/dl Albumin/Globulin Ratio (0.9-2) Lipase Urine Color Urine Appearance (Clear) Urine pH (4.5-7.5) Ur Specific [place] (1.000-1.030) Urine Protein (Negative) Urine Glucose (UA) (Negative) Urine Ketones (Negative) Urine Blood (Negative) Urine Nitrite (Negative) Urine Bilirubin (Negative) Urine Urobilinogen (Negative) Ur Leukocyte Esterase (Negative) POC Ur Test (NEG) Ethyl Alcohol mg/dL (<10.0) mg/dl SARS-CoV-2, RNA, NAAT (NEGATIVE) Administered Medications Amphetamine/Dextroamphetamine (Amphetamine Asp/Sulf/Dextramph 5 Mg Tab) 5 mg PO BID JUAN Stop: 03/02/22 20:59 Last Admin: 01/31/22 22:27 Dose: 5 mg Documented by: [id number] Azelastine HCl (Azelastine Hcl 0.1% Nasal 200 Sprays/27,400 Mcg Btl) 1 sprays LINETTE BID JUAN Stop: 03/02/22 20:59 Last Admin: 01/31/22 22:28 Dose: 1 sprays Documented by: [id number] Furosemide (Furosemide 20 Mg Tab) 20 mg PO PM JUAN Stop: 03/02/22 20:59 Last Admin: 01/31/22 22:27 Dose: 20 mg Documented by: [id number] Magnesium Sulfate/Dextrose (Magnesium Sulfate / D5w) 1 gm in 100 mls @ 50 mls/hr IV Q2H JUAN Stop: 02/01/22 00:43 Last Admin: 01/31/22 22:26 Dose: 50 mls/hr Documented by: [id number] Montelukast Sodium (Montelukast Sodium 10 Mg Tablet) 10 mg PO HS JUAN Stop: 03/02/22 20:59 Last Admin: 01/31/22 22:28 Dose: 10 mg Documented by: [id number] Nicotine (Nicotine 14 Mg/24 Hr Patch) 14 mg TD QAM JUAN Stop: 03/02/22 20:43 Last Admin: 01/31/22 22:27 Dose: 14 mg Documented by: [id number] Prednisone (Prednisone 20 Mg Tab) 40 mg PO DAILY JUAN Stop: 03/02/22 21:04 Last Admin: 01/31/22 22:28 Dose: 40 mg Documented by: [id number] Spironolactone (Spironolactone 25 Mg Tab) 50 mg PO PM JUAN Stop: 03/02/22 20:59 Last Admin: 01/31/22 22:28 Dose: 50 mg Documented by: [id number] Discontinued Medications Multivitamins 10 ml/ Thiamine HCl 100 mg/ Folic Acid 1 mg/Sodium Chloride 1,011.2 mls @ 1,011.2 mls/hr IV .Q1H ONE Stop: 01/31/22 15:10 Last Infusion: 01/31/22 15:41 Dose: 0 mls/hr Documented by: [id number] Admin: 01/31/22 14:41 Dose: 1,011.2 mls/hr Documented by: [id number] Potassium Chloride (K Rivera / Wtr) 10 meq in 100 mls @ 100 mls/hr IV Q1H JUAN; Protocol Stop: 01/31/22 19:29 Last Infusion: 01/31/22 20:40 Dose: 0 mls/hr Documented by: [id number] Admin: 01/31/22 19:26 Dose: 100 mls/hr Documented by: [id number] Infusion: 01/31/22 19:25 Dose: 0 mls/hr Documented by: [id number] Admin: 01/31/22 17:40 Dose: 100 mls/hr Documented by: [id number] Ioversol (Optiray 320 100ml) 94 ml IV ONCE ONE Stop: 01/31/22 16:26 Last Admin: 01/31/22 16:25 Dose: 94 ml Documented by: [id number] Potassium Chloride (Potassium Chloride Crtab 20 Meq Tabcr) 20 meq PO ONE ONE Stop: 01/31/22 20:01 Last Admin: 01/31/22 20:02 Dose: 20 meq Documented by: [id number] Potassium Chloride (Potassium Chloride Crtab 20 Meq Tabcr) 40 meq PO NOW STA Stop: 01/31/22 18:48 Last Admin: 01/31/22 19:00 Dose: 40 meq Documented by: [id number] Imaging Data Radiologist's Impression: Abdomen/Pelvis CT 01/31/22 15:[address] WITH IV CONTRAST CT DOSE: 498.42 mGy.cm HISTORY: jaundice, etoh cirrhosis TECHNIQUE: Multiaxial CT images of the abdomen and pelvis were performed following the use of intravenous contrast. A dose lowering technique was utilized adhering to the principles of ALARA. COMPARISON STUDY: Abdomen and pelvis CT 10/22/2021. FINDINGS: Mild dependent changes noted at the lung bases. No pneumoperitoneum. No pneumatosis. No acute fractures within the visualized osseous structures. Small fat-containing right inguinal hernia. This remains unchanged. Nodular contour to the liver consistent with cirrhosis. The liver remains mildly enlarged. There is heterogeneous enhancement within the liver with evidence for steatosis. This remains unchanged. The spleen remains enlarged measuring 16 cm in length. The adrenal glands, pancreas, and kidneys are unremarkable. No hydronephrosis. Normal bladder. The uterus and ovaries are unremarkable. Trace pelvic free fluid. There is also trace perihepatic ascites. This has significantly improved in the interval. The main portal vein is patent. Diffuse gallbladder wall thickening/edema remains unchanged. This is likely due to the patient's cirrhosis. No retroperitoneal lymphadenopathy. Normal caliber abdominal aorta. No bowel wall thickening or obstruction. Mild thickening at the sigmoid colon is likely due to underdistention and muscular hypertrophy from the diverticulosis. No evidence for acute diverticulitis. Normal appendix. IMPRESSION: 1. No bowel wall thickening or obstruction. 2. Normal appendix. 3. Colonic diverticulosis. No evidence for acute diverticulitis. 4. Cirrhotic liver with splenomegaly, unchanged. 5. Diffuse gallbladder wall thickening/edema. This is also unchanged and is likely due to the patient's cirrhosis. 6. Trace ascites. This has significantly improved in the interval. ACT 112: Negative or not required by law. Electronically signed by: Weston Cisneros M.D. 01/31/2022 4:34 PM Discharge Plan Visit Data Chief Complaint: GI Assessment Stated Complaint: REFERRED BY . ABNORMAL LABS ED Provider: Nii Ariza Discharge Problem: Alcoholic hepatitis, Alcohol abuse, Hyperbilirubinemia, Hypomagnesemia, Acute hyponatremia, Hypokalemia Patient Disposition: Admitted As Inpatient Discharge Instructions Interventions: ED Discharge Assessment Last Done: 01/31/22 20:07 Discharge Problem: Alcoholic hepatitis Qualifiers: Ascites presence: with ascites Qualified Code(s): K70.11 - Alcoholic hepatitis with ascites
[2022-02-01] MEDS: MAGNESIUM SULFATE / D5W 1 GM/100 ML BAG IV SCH (00:27)
[2022-02-01 06:42] LABS: Hematocrit (blood only) 32.4 % (37-47); Hemoglobin 11.2 g/dL (12.0-16.0); Mean Corpuscular Hemoglobin 32.3 pg (25-34); Mean Corpuscular Hgb Conc 34.6 g/dL (32-36); Mean Corpuscular Volume 93.4 fL (80-100); RDW Coefficient of Variation 16.8 % (11.5-14.5); RDW Standard Deviation 56.2 fL (36.4-46.3); Red Blood Count 3.47 M/uL (4.2-5.4); White Blood Count 5.74 K/uL (4.8-10.8)
[2022-02-01 07:35] LABS: Mean Platelet Volume 11.4 fL (7.4-10.4); Platelet Count 67 K/uL (130-400)
[2022-02-01 07:38] LABS: Albumin Level 3.2 gm/dl (3.4-5.0); BUN Creatinine Ratio 3.8 (10-20); Bilirubin,Total 17.6 mg/dl (0.2-1.0); Calcium 7.4 mg/dl (8.5-10.1); Creatinine Clr Calc Pharmacy 88.1 ml/min; Est GFR (African American) 113.2 ml/min; Est GFR (Non-African American) 97.7 ml/min; Globulin 3.1 gm/dl (2.5-4.0); Magnesium 2.1 mg/dl (1.7-2.4); Phosphorus 1.2 mg/dl (2.5-4.9); Potassium 3.2 mmol/L (3.5-5.1); Total Protein 6.3 gm/dl (6.0-8.3)
[2022-02-01 07:43] LABS: Bilirubin Direct 11.8 mg/dl (0-0.2)
[2022-02-01 08:01] LABS: INR 1.6 (0.9-1.1); Prothrombin Time 16.3 Seconds (9.0-12.0)
[2022-02-01] MEDS ORDERED: POTASSIUM CHLORIDE CRTAB 20 MEQ TABCR PO STA (08:03)
[2022-02-01] MEDS: MULTIVITAMIN TAB PO SCH (08:10)
[2022-02-01] MEDS: predniSONE 20 MG TAB PO SCH (08:10)
[2022-02-01] MEDS: PANTOprazole 40 MG TAB PO SCH (08:10)
[2022-02-01] MEDS: LORATADINE 10 MG TAB PO SCH (08:10)
[2022-02-01] MEDS: SPIRONOLACTONE 100 MG TAB PO SCH (08:10)
[2022-02-01] MEDS: NICOTINE 14 MG/24 HR PATCH TD SCH (08:11)
[2022-02-01] MEDS: THIAMINE HCL 100 MG TAB PO SCH (08:11)
[2022-02-01] MEDS: FLUTICASONE/VILANTEROL 200/25MCG 14 PUFFS/INHALER INH SCH (08:11)
[2022-02-01] MEDS: FLUTICASONE PROPIONATE NA SPR 16 GM BTL NAE SCH (08:11)
[2022-02-01] MEDS: FOLIC ACID 1 MG TAB PO SCH (08:11)
[2022-02-01] MEDS: FUROSEMIDE 40 MG TAB PO SCH (08:11)
[2022-02-01] MEDS: AZELASTINE HCL 0.1% NASAL 200 SPRAYS/27,400 MCG BTL NAE SCH ×2 (08:11→20:56)
[2022-02-01] MEDS: UMECLIDINIUM/VILANTEROL 62.5/25MCG 7 PUFFS/INHALER INH SCH (08:12)
[2022-02-01] MEDS: AMPHETAMINE ASP/SULF/DEXTRAMPH 5 MG TAB PO SCH ×2 (10:49→16:42)
[2022-02-01] MEDS: Albuterol HFA 8 GM Inhaler (Combivent Respimat P&T Subs) INH SCH ×2 (10:57→19:39)
[2022-02-01] MEDS: Ipratropium HFA Inhaler (Combivent Respimat P&T Subs) INH SCH ×2 (10:57→19:40)
[2022-02-01] MEDS: POT PHOSPHATE MONOBASIC W/ SOD TAB PO SCH ×6 (11:54→20:57)
--- NOTE | 2022-02-01 13:10 | Gastrointestinal Consultation ---
Date of Consultation February 01, 2022 Assessment & Plan (1) Alcoholic hepatitis: (2) Alcohol abuse: ETOH abuse leading to alcoholic hepatitis, DF > 32, on steroids currently. feels well and is tolerating it, no obvious signs of withdrawal at this time. recs: change prednisone to prednisolone 40 mg daily start protonix 40 mg daily for GI ppx while on steroids supportive care, IVFs, diet as tolerated monitor for signs of withdrawal strict alcohol cessation/alcohol rehab is needed check Lille score on day 7 of steroids to ensure they are effective, and if they are then continue steroids for total of 28 days. Thank you for allowing me to participate in the care of this patient. History of Present Illness Attending Physician: Tyrel Chahal MD History of Present Illness 36y/o female with hx ETOH abuse, pancreatitis, ETOH hepatitis, asthma, anxiety, depressions here with alcoholic hepatitis. She relapsed and started drinking alcohol again 2 weeks ago, reportedly was drinking 6 airplane bottles of 99 proof alcohol daily. Says she has not had a drink in 1 week now. Currently on steroids for alcoholic hepatitis as DF was >32. Has had ascites in the past, denies any abdominal swelling at this time, denies hematochezia, confusion, hematemesis. She follows with varsha krishnna as an outpatient. labs reviewed. Allergies Allergy/AdvReac Type Severity Reaction Status Date / Time banana Allergy Intermediate RASH, Verified 01/31/22 16:21 THROAT SLIGHTLY SWOLLEN Penicillins Allergy Unknown HAPPENED Verified 01/31/22 16:21 A CHILD Home Medications Medication Instructions Recorded Confirmed Type albuterol sulfate 90 mcg/actuation 1 inh INHALATION QID PRN 06/24/20 01/31/22 History aerosol inhaler (ProAir HFA) budesonide-formoterol HFA 160 2 puff INHALATION BID 06/20/21 01/31/22 History mcg-4.5 mcg/actuation aerosol inhaler (Symbicort) dextroamphetamine-amphetamine 5 mg 5 mg PO BID 06/20/21 01/31/22 History tablet (Adderall) ipratropium 20 mcg-albuterol 100 1 puff INHALATION BID 06/20/21 01/31/22 History mcg/actuation mist for inhalation (Combivent Respimat) loratadine 10 mg tablet 10 mg PO QAM 06/20/21 01/31/22 History montelukast 10 mg tablet 10 mg PO HS 06/20/21 01/31/22 History omeprazole 20 mg capsule,delayed 20 mg PO QAM 06/20/21 01/31/22 History release azelastine 137 mcg (0.1 %) nasal 1 spray INTRANASAL BID 10/03/21 01/31/22 History spray aerosol fluticasone propionate 50 2 spray INTRANASAL DAILY 10/03/21 01/31/22 History mcg/actuation nasal spray,suspension multivitamin 1 tab PO QAM 10/03/21 01/31/22 History thiamine HCl (vitamin B1) 100 mg 100 mg PO QAM #30 tab 10/09/21 01/31/22 Rx tablet ondansetron HCl 4 mg tablet 4 mg PO Q8H PRN 10/31/21 01/31/22 History tramadol 50 mg tablet 50 mg PO Q6H PRN 10/31/21 01/31/22 History furosemide 20 mg tablet 20 mg PO PM 11/20/21 01/31/22 History furosemide 40 mg tablet (Lasix) 40 mg PO QAM 11/20/21 01/31/22 History spironolactone 50 mg tablet 50 mg PO PM 11/20/21 01/31/22 History ascorbic acid (vitamin C) 500 mg 500 mg PO QAM 01/31/22 01/31/22 History tablet (Vitamin C) cholecalciferol (vitamin D3) 50 2,000 mcg PO QAM 01/31/22 01/31/22 History mcg (2,000 unit) capsule (Vitamin D3) hydroxyzine HCl 25 mg tablet 1 mg PO TID PRN 01/31/22 01/31/22 History milk thistle 500 mg capsule 0 mg PO QAM 01/31/22 01/31/22 History spironolactone 100 mg tablet 100 mg PO DAILY 01/31/22 01/31/22 History tiotropium bromide 2.5 2 puff INHALATION DAILY 01/31/22 01/31/22 History mcg/actuation mist for inhalation (Spiriva Respimat) hciblfm-tqgu-mwtbc-oreg-capryl 0 mg PO QAM 01/31/22 01/31/22 History Patient History Medical History ADD (attention deficit disorder) Alcohol abuse Alcoholic hepatitis Alcoholic pancreatitis Allergic sinusitis Anxiety Asthma Depression Fatty liver History of abdominal paracentesis Tobacco use Surgical History History of esophagogastroduodenoscopy (EGD) Family History Grandmother Breast cancer Grandfather Heart disease Social History Smoking Status: Former smoker Tobacco Type: Cigarettes Cigarettes Per Day: 4; Second Hand Exposure: No; Do You Dip or Chew Tobacco: No; Hx Alcohol Use: Yes Alcohol type: hard liquor Hx Substance Use: No Preferred Language: Somali 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 Ability: Effective Binder Operator Required: No Beliefs That Will Affect Care: None marital status: Single Current Living Situation: Spouse Current Living Situation Comment: Apartment current occupational status: employed How many Children do You have: 0 Other Information That Helps Us Care for You: No Feels Safe at Home: Yes Safety Concerns: Feels Safe At This Time Assistive Devices: Glasses Review of Systems Constitutional: no fever, no chills and no weight loss Eyes: as per Subjective / HPI Ear, Nose, Mouth, Throat: as per Subjective / HPI Respiratory: no dyspnea and no dyspnea on exertion Cardiovascular: no chest pain and no palpitations Gastrointestinal: as per Subjective / HPI Musculoskeletal: no joint pain and no swelling Integumentary: no rash and no lesions Neurologic: no numbness and no paresthesia Psychiatric: no depression and no anxiety Endocrine: no fatigue Hematologic / Lymphatic: no easy bleeding and no easy bruising Physical Exam Constitutional: WD/WN, vitals as above Eyes: EOM intact bilaterally Neck: normal visual inspection Respiratory: normal respiratory effort, lungs clear to auscultation Cardiovascular: RRR, no murmur, no edema Gastrointestinal (Abdomen): Inspection/Auscultation: abdomen normal to inspection; abdomen not distended Percussion/Palpation: abdomen soft; abdomen nontender and no hepatosplenomegaly Musculoskeletal: Extremities: no cyanosis Gait: normal gait Skin: no rashes, warm and dry Neurologic: moves all extremities Psychiatric: A+Ox3, euthymic affect Results & Data ([facility]) Vital Signs (Past 12 Hours) Vital Signs Temp Pulse Pulse Resp BP Pulse Ox 02/01/22 11:31 36.7 C 94 H 18 104/68 97 05/14/22 11:01 101 H 17 97 02/01/22 09:47 91 H 02/01/22 07:24 36.8 C 91 H 18 102/67 98 02/01/22 04:21 36.9 C 91 H 20 97/62 L 97 02/01/22 01:27 99 H PG Care Time/CCT Total # of Minutes Spent Total Time Spent with Patient: Total time spent is greater than 50% in coordination of care (as documented) at patient's floor/unit and/or counseling patient: Coding Level of Care Code 53136 Inpt Consult Level 4 Diagnoses Alcoholic hepatitis K70.11 Ascites presence: with ascites Alcohol abuse F10.10 (1) Alcoholic hepatitis Ascites presence: with ascites Qualified Code(s): K70.11 - Alcoholic hepatitis with ascites
[2022-02-01 15:42] LABS: Magnesium 1.9 mg/dl (1.7-2.4); Phosphorus < 1.0 mg/dl (2.5-4.9)
[2022-02-01] MEDS ORDERED: POTASSIUM PHOS 3 MMOL/1 ML INFUSION IV STA (15:46)
[2022-02-01] MEDS ORDERED: POTASSIUM PHOSPHATE 30 MMOL in SODIUM CHLORIDE 0.9% 500 ML IV STA (15:52)
--- NOTE | 2022-02-01 16:26 | Hospitalist Progress Note ---
Date of Service February 01, 2022 Assessment & Plan (1) Alcoholic hepatitis: (2) Hyperbilirubinemia: Plan: Per admitting service notes with addendum Patient is 36y/o F with PMH EtOH abuse, pancreatitis, prior alcoholic hepatitis, cirrhosis, ascites, asthma, depression, anxiety, ADHD presented to the ER with complaint of yellow coloration of skin. Started drinking alcohol again 2 weeks ago. Reports was drinking 6 airplane bottles of 99 proof alcohol daily. Reports last drink was 4 days ago. 4 days ago had upper abdominal discomfort which has since resolved In ER afebrile, Vitals stable. No leukocytosis, Hgb: 11, Plt: 75, T bili: 20, direct bili: 13.5, AST: 90, ALT: 23, alk phos: 366, INR: 1.9. Lipase: 10 CT ABD/PELVIS: No bowel wall thickening or obstruction. 2. Normal appendix. 3. Colonic diverticulosis. No evidence for acute diverticulitis. 4. Cirrhotic liver with splenomegaly, unchanged. 5. Diffuse gallbladder wall thickening/edema. This is also unchanged and is likely due to the patient's cirrhosis. 6. Trace ascites. This has significantly improved in the interval. Patient alert and oriented x3 with no change in mentation No current abdominal pain. Trace ascites noted on CT abdomen pelvis. No leukocytosis, no fever, chills. SBP less likely at this time Maddrey score >32. Will start prednisone 40mg daily Patient needs to avoid alcohol Continue Lasix, spironolactone GI consult CBC, CMP in a.m. 02/01 Denies GI symptoms today Bilirubin slightly improving as well as LFTs GI recommendations reviewed Change prednisone to prednisolone 40 mg daily x30 days then taper Repeat Lille score in 7 days after starting prednisolone to check for response Hypophosphatemia, severe IV potassium ordered, repeat at 10 PM Will consult nephrology Monitor in telemetry unit Hypomagnesemia Improved with oral magnesium (3) Alcohol abuse: Plan: Currently following outpatient alcohol rehab Started drinking again 2 weeks ago. Last drink reported 4 days ago. Alcohol level undetectable Was given banana bag in ER Abstain from alcohol Folic acid, thiamine, multivitamin daily 02/01 no signs of acute alcohol withdrawal at this time (4) Hypokalemia: (5) Hypomagnesemia: (6) Hyponatremia: Plan: K: 2.7. Magnesium: 1.3. Na:125 corrected Given 2K riders in ER Replace potassium, magnesium Monitor electrolytes Sodium improved to 131 Potassium improved to 3.2, continue repletion Check PRP at 10 PM (7) Asthma: Plan: no Signs of exacerbation Continue home inhalers (8) ADD (attention deficit disorder): (9) Anxiety: Plan: Continue Adderall, hydroxyzine as needed (10) Tobacco use: Plan: Smoking cessation encouraged Nicotine patch DVT Prophylaxis SCDs Full Code as per discussion with pt Follows with Dr Bunch for routine care plan of care discussed with patient in detail and at length all questions answered she is understanding, agreeable, comfortable with the plan of care Admission and Anticipated Discharge Date Admission Date: January 31, 2022 Subjective Follow-up for alcoholic hepatitis, etc. Seen resting in bed, comfortable, not in distress States she feels improved today compared to yesterday No abdominal pain, nausea or vomiting, fevers or chills no chest pain, dyspnea, palpitations, dizziness No weakness or numbness no chest pain, dyspnea, palpitations, dizziness Review of Systems Review of Systems: all noted and negative except for above Physical Exam Physical Exam: General- oriented x 3, not in distress, speaks in sentences with no effort or accessory muscle use Head- atraumatic Eyes- PERRL, EOMI, positive mild icterus ENT- oropharynx clear Neck- supple, no JVD, no adenopathy, no thyromegaly; carotids +2/2, no bruits appreciated Lungs- clear to auscultation bilaterally, no rales/wheezes Heart- normal rate, regular rhythm; no murmur, no gallop, no rub appreciated Abdomen- normal bowel sounds, nondistended, soft, nontender, no masses or hepatosplenomegaly Extremities- no pretibial edema, no calf tenderness; peripheral pulses intact Neuro- alert, oriented x 3; CN 2-12 grossly intact; motor 5/5 bilaterally;sensation 100% on all extremities; no other gross focal neurologic deficits Skin-positive jaundice, warm & dry Results & Data Results & Data ([facility]) Vital Signs (Past 12 Hours) Vital Signs Temp Pulse Pulse Resp BP Pulse Ox 02/01/22 15:15 103 H 02/01/22 15:06 36.7 C 96 H 18 100/69 98 02/01/22 11:31 36.7 C 94 H 18 104/68 97 02/01/22 11:01 101 H 17 97 02/01/22 09:47 91 H 02/01/22 07:24 36.8 C 91 H 18 102/67 98 all noted and reviewed including below (1) Alcoholic hepatitis Ascites presence: with ascites Qualified Code(s): K70.11 - Alcoholic hepatitis with ascites
[2022-02-01] MEDS: SPIRONOLACTONE 25 MG TAB PO SCH (16:43)
[2022-02-01] MEDS: FUROSEMIDE 20 MG TAB PO SCH (16:43)
[2022-02-01] MEDS: MAGNESIUM OXIDE 400 MG TAB PO SCH (20:56)
[2022-02-01] MEDS: MELATONIN 3 MG TAB PO PRN (20:56)
[2022-02-01] MEDS: MONTELUKAST SODIUM 10 MG TABLET PO SCH (20:57)
[2022-02-01 23:08] LABS: BUN Creatinine Ratio 5.9 (10-20); Calcium 7.4 mg/dl (8.5-10.1); Creatinine Clr Calc Pharmacy 81.9 ml/min; Est GFR (African American) 103.6 ml/min; Est GFR (Non-African American) 89.4 ml/min; Magnesium 1.8 mg/dl (1.7-2.4); Phosphorus 3.3 mg/dl (2.5-4.9); Potassium 2.9 mmol/L (3.5-5.1)
[2022-02-02 04:44] LABS: Hematocrit (blood only) 30.9 % (37-47); Hemoglobin 10.9 g/dL (12.0-16.0); Immature Granulocytes # (auto) 0.01 K/uL (0.00-0.02); Immature Granulocytes % (auto) 0.1 %; Lymphocytes % (auto) 7.9 %; Mean Corpuscular Hgb Conc 35.3 g/dL (32-36); Mean Corpuscular Volume 93.6 fL (80-100); Mean Platelet Volume 11.1 fL (7.4-10.4); Monocytes # (auto) 1.05 K/uL (0.11-0.59); Monocytes % (auto) 13.8 %; Neutrophils # (auto) 5.94 K/uL (1.4-6.5); Neutrophils % (auto) 78.2 %; Platelet Count 111 K/uL (130-400); RDW Coefficient of Variation 17.3 % (11.5-14.5); RDW Standard Deviation 58.3 fL (36.4-46.3)
[2022-02-02 04:58] LABS: Albumin Level 3.1 gm/dl (3.4-5.0); BUN Creatinine Ratio 6.1 (10-20); Bilirubin Direct 8.5 mg/dl (0-0.2); Bilirubin,Total 15.1 mg/dl (0.2-1.0); Calcium 7.8 mg/dl (8.5-10.1); Creatinine Clr Calc Pharmacy 84.8 ml/min; Est GFR (African American) 108.2 ml/min; Est GFR (Non-African American) 93.4 ml/min; Magnesium 1.9 mg/dl (1.7-2.4); Phosphorus 3.6 mg/dl (2.5-4.9); Potassium 3.2 mmol/L (3.5-5.1); Total Protein 6.1 gm/dl (6.0-8.3)
[2022-02-02] MEDS: Ipratropium HFA Inhaler (Combivent Respimat P&T Subs) INH SCH (07:21)
[2022-02-02] MEDS: Albuterol HFA 8 GM Inhaler (Combivent Respimat P&T Subs) INH SCH (07:21)
[2022-02-02] MEDS: AMPHETAMINE ASP/SULF/DEXTRAMPH 5 MG TAB PO SCH (08:44)
[2022-02-02] MEDS: POT PHOSPHATE MONOBASIC W/ SOD TAB PO SCH ×2 (08:45→12:12)
[2022-02-02] MEDS: MAGNESIUM OXIDE 400 MG TAB PO SCH (08:45)
[2022-02-02] MEDS: PANTOprazole 40 MG TAB PO SCH (08:46)
[2022-02-02] MEDS: FLUTICASONE/VILANTEROL 200/25MCG 14 PUFFS/INHALER INH SCH (08:46)
[2022-02-02] MEDS: FOLIC ACID 1 MG TAB PO SCH (08:46)
[2022-02-02] MEDS: MULTIVITAMIN TAB PO SCH (08:46)
[2022-02-02] MEDS: SPIRONOLACTONE 100 MG TAB PO SCH (08:46)
[2022-02-02] MEDS: FUROSEMIDE 40 MG TAB PO SCH (08:46)
[2022-02-02] MEDS: THIAMINE HCL 100 MG TAB PO SCH (08:46)
[2022-02-02] MEDS: AZELASTINE HCL 0.1% NASAL 200 SPRAYS/27,400 MCG BTL NAE SCH (08:47)
[2022-02-02] MEDS: FLUTICASONE PROPIONATE NA SPR 16 GM BTL NAE SCH (08:47)
[2022-02-02] MEDS: UMECLIDINIUM/VILANTEROL 62.5/25MCG 7 PUFFS/INHALER INH SCH (08:47)
[2022-02-02] MEDS: LORATADINE 10 MG TAB PO SCH (08:50)
[2022-02-02] MEDS ORDERED: prednisoLONE sod phosphate 15 MG/5 ML PO SCH (09:00)
[2022-02-02] MEDS ORDERED: POTASSIUM CHLORIDE CRTAB 20 MEQ TABCR PO SCH (09:00)
[2022-02-02 09:34] LABS: INR 1.4 (0.9-1.1); Prothrombin Time 15.1 Seconds (9.0-12.0)
[2022-02-02] MEDS: NICOTINE 14 MG/24 HR PATCH TD SCH (09:40)
[2022-02-02 10:18] LABS: Anion Gap 13 (3-11); Blood Urea Nitrogen 6 mg/dl (6-23); Calcium 7.8 mg/dl (8.5-10.1); Carbon Dioxide 23 mmol/L (21-32); Chloride 99 mmol/L (98-107); Creatinine Clr Calc Pharmacy 82.7 ml/min; Est GFR (African American) 102.2 ml/min; Est GFR (Non-African American) 88.1 ml/min; Glucose 157 mg/dl (70-99(Fasting)); Magnesium 1.8 mg/dl (1.7-2.4); Phosphorus 3.4 mg/dl (2.5-4.9); Sodium 135 mmol/L (136-145)
--- NOTE | 2022-02-02 11:41 | Nephrology Consultation ---
Date of Consultation February 02, 2022 Assessment & Plan (1) Electrolyte abnormality: Multiple electrolyte problem 2/ alcoholic problems and poor oral intake - Unlikley tubular defect causing multiple problems, more so the levels have remained steady after supplementation. - At the moment, would not investigate this further with fractional excretion of electrolytes. - Continue to replete until the levels in normal range, She will nned to be d/c on potassium , magnesium and phosphate supplement with f/u within1 week of discharge. - Electric Power Line Repairer consult while inpatient. History of Present Illness Reason for Consultation: Multiple electrolyte abnormality Attending Physician: Tyrel Chahal MD History of Present Illness Patient is 36y/o F with PMH EtOH abuse, pancreatitis, prior alcoholic hepatitis, cirrhosis, ascites, asthma, depression, anxiety, ADHD who presented to the ER with complaint of yellow coloration of skin. Started drinking alcohol again 2 weeks ago. Reports last drink was 4 days ago.In ER afebrile, Vitals were stable.Multiple electrolyte abnormality , Crtitical hypophosphatemia, hypomagne semia,hypokalemia and hyponatremia with hypocalcemia. Nephrology consulted for further management. Alert , oriented on exam,Abdomen distended but not tender, Passing urine, Admitted to poor oral intake for several days.NO dysuric symptoms. Allergies Allergy/AdvReac Type Severity Reaction Status Date / Time banana Allergy Intermediate RASH, Verified 01/31/22 16:21 THROAT SLIGHTLY SWOLLEN Penicillins Allergy Unknown HAPPENED Verified 01/31/22 16:21 A CHILD Home Medications Medication Instructions Recorded Confirmed Type albuterol sulfate 90 mcg/actuation 1 inh INHALATION QID PRN 06/24/20 01/31/22 History aerosol inhaler (ProAir HFA) budesonide-formoterol HFA 160 2 puff INHALATION BID 06/20/21 01/31/22 History mcg-4.5 mcg/actuation aerosol inhaler (Symbicort) dextroamphetamine-amphetamine 5 mg 5 mg PO BID 06/20/21 01/31/22 History tablet (Adderall) ipratropium 20 mcg-albuterol 100 1 puff INHALATION BID 06/20/21 01/31/22 History mcg/actuation mist for inhalation (Combivent Respimat) loratadine 10 mg tablet 10 mg PO QAM 06/20/21 01/31/22 History montelukast 10 mg tablet 10 mg PO HS 06/20/21 01/31/22 History omeprazole 20 mg capsule,delayed 20 mg PO QAM 06/20/21 01/31/22 History release azelastine 137 mcg (0.1 %) nasal 1 spray INTRANASAL BID 10/03/21 01/31/22 History spray aerosol fluticasone propionate 50 2 spray INTRANASAL DAILY 10/03/21 01/31/22 History mcg/actuation nasal spray,suspension multivitamin 1 tab PO QAM 10/03/21 01/31/22 History thiamine HCl (vitamin B1) 100 mg 100 mg PO QAM #30 tab 10/09/21 01/31/22 Rx tablet ondansetron HCl 4 mg tablet 4 mg PO Q8H PRN 10/31/21 01/31/22 History tramadol 50 mg tablet 50 mg PO Q6H PRN 10/31/21 01/31/22 History furosemide 20 mg tablet 20 mg PO PM 11/20/21 01/31/22 History furosemide 40 mg tablet (Lasix) 40 mg PO QAM 11/20/21 01/31/22 History spironolactone 50 mg tablet 50 mg PO PM 11/20/21 01/31/22 History ascorbic acid (vitamin C) 500 mg 500 mg PO QAM 01/31/22 01/31/22 History tablet (Vitamin C) cholecalciferol (vitamin D3) 50 2,000 mcg PO QAM 01/31/22 01/31/22 History mcg (2,000 unit) capsule (Vitamin D3) hydroxyzine HCl 25 mg tablet 1 mg PO TID PRN 01/31/22 01/31/22 History milk thistle 500 mg capsule 0 mg PO QAM 01/31/22 01/31/22 History spironolactone 100 mg tablet 100 mg PO DAILY 01/31/22 01/31/22 History tiotropium bromide 2.5 2 puff INHALATION DAILY 01/31/22 01/31/22 History mcg/actuation mist for inhalation (Spiriva Respimat) ealtccv-dtmt-qmfwa-oreg-capryl 0 mg PO QAM 01/31/22 01/31/22 History Patient History Medical History ADD (attention deficit disorder) Alcohol abuse Alcoholic hepatitis Alcoholic pancreatitis Allergic sinusitis Anxiety Asthma Depression Fatty liver History of abdominal paracentesis Tobacco use Surgical History History of esophagogastroduodenoscopy (EGD) Family History Grandmother Breast cancer Grandfather Heart disease Social History Smoking Status: Former smoker Tobacco Type: Cigarettes Cigarettes Per Day: 4; Second Hand Exposure: No; Do You Dip or Chew Tobacco: No; Hx Alcohol Use: Yes Alcohol type: hard liquor Hx Substance Use: No Preferred Language: Spanish 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 Ability: Effective Admissions Rn Required: No Beliefs That Will Affect Care: None marital status: Single Current Living Situation: Spouse Current Living Situation Comment: Apartment current occupational status: employed How many Children do You have: 0 Other Information That Helps Us Care for You: No Feels Safe at Home: Yes Safety Concerns: Feels Safe At This Time Assistive Devices: Glasses Review of Systems Review of Systems: All systems reviewed & are unremarkable except as noted in Subjective Physical Exam Physical Exam: General: awake, alert, no apparent distress Head: Normocephalic, atraumatic ENT: PERRL, EOMI, no pharyngeal exudate, mucous membranes moist Chest: on room air, normal breath sounds Cardiac: no murmur, no JVD, normal peripheral pulses, good capillary refill Abdominal: NABS x 4 quadrants, soft, distended, nontender to palpation, no rebound or guarding Extremities:No peripheral edema Psych: Normal mood and affect Neuro: AAO x 3, strength intact bilaterally and rated 5/5, no motor deficits, speech is clear, no peripheral sensory deficits Results & Data ([facility]) Vital Signs (Past 12 Hours) Vital Signs Temp Pulse Resp BP Pulse Ox 02/02/22 11:05 36.9 C 87 18 106/71 96 02/02/22 07:22 105 H 16 98 02/02/22 07:08 36.9 C 89 20 113/77 98 02/02/22 03:24 36.8 C 90 20 97/62 L 96 02/01/22 23:54 36.9 C 92 H 20 98/61 L 95 Laboratory Results 02/02/22 04:15 02/02/22 10:29
[2022-02-02] MEDS ORDERED: POTASSIUM CHLORIDE CRTAB 20 MEQ TABCR PO STA (11:44)
[2022-02-02] MEDS: POTASSIUM CHLORIDE / WTR 10 MEQ/100 ML PLCT IV SCH ×2 (12:12→14:43)
--- NOTE | 2022-02-02 14:42 | Hospitalist Progress Note ---
Date of Service February 02, 2022 Assessment & Plan (1) Alcoholic hepatitis: (2) Hyperbilirubinemia: Plan: Per admitting service notes with addendum Patient is 36y/o F with PMH EtOH abuse, pancreatitis, prior alcoholic hepatitis, cirrhosis, ascites, asthma, depression, anxiety, ADHD presented to the ER with complaint of yellow coloration of skin. Started drinking alcohol again 2 weeks ago. Reports was drinking 6 airplane bottles of 99 proof alcohol daily. Reports last drink was 4 days ago. 4 days ago had upper abdominal discomfort which has since resolved In ER afebrile, Vitals stable. No leukocytosis, Hgb: 11, Plt: 75, T bili: 20, direct bili: 13.5, AST: 90, ALT: 23, alk phos: 366, INR: 1.9. Lipase: 10 CT ABD/PELVIS: No bowel wall thickening or obstruction. 2. Normal appendix. 3. Colonic diverticulosis. No evidence for acute diverticulitis. 4. Cirrhotic liver with splenomegaly, unchanged. 5. Diffuse gallbladder wall thickening/edema. This is also unchanged and is likely due to the patient's cirrhosis. 6. Trace ascites. This has significantly improved in the interval. Patient alert and oriented x3 with no change in mentation No current abdominal pain. Trace ascites noted on CT abdomen pelvis. No leukocytosis, no fever, chills. SBP less likely at this time Maddrey score >32. Will start prednisone 40mg daily Patient needs to avoid alcohol Continue Lasix, spironolactone GI consult CBC, CMP in a.m. 5/15 Denies GI symptoms today Bilirubin and LFTs improving GI recommendations reviewed prednisolone 40 mg daily x30 days then taper Repeat Lille score in 7 days after starting prednisolone to check for response (will arrange ff up with GI this week) Low Ph, Mh, K, Ns likely from Diuretics, Alcoholism, Poor oral intake Hypophosphatemia < 1.0 IV and PO Ph, Mg, K given; NSS given Ph normalized consulted nephrology Dr. Rojas- - Unlikley tubular defect causing multiple problems, more so the levels have remained steady after supplementation. - At the moment, would not investigate this further with fractional excretion of electrolytes. discharge on: K 40meqs daily Neutro phos 2 tabs TID Mg oxide 400mg BID repeat labs on Thu02/05/22 PCP ff up on 02/06/22 Improved with oral magnesium (3) Alcohol abuse: Plan: Currently following outpatient alcohol rehab Started drinking again 2 weeks ago. Last drink reported 4 days ago. Alcohol level undetectable Was given banana bag in ER Abstain from alcohol Folic acid, thiamine, multivitamin daily 02/02 no signs of acute alcohol withdrawal at this time Strongly advised to abstain from alcohol (4) Hypokalemia: (5) Hypomagnesemia: (6) Hyponatremia: Plan: Management per above (7) Asthma: Plan: no Signs of exacerbation Continue home inhalers (8) ADD (attention deficit disorder): (9) Anxiety: Plan: Continue Adderall, hydroxyzine as needed (10) Tobacco use: Plan: Smoking cessation encouraged Nicotine patch DVT Prophylaxis SCDs Follow-up with PCP this coming Thursday GI clinic follow-up scheduled for Thursday plan of care discussed with patient in detail and at length all questions answered she is understanding, agreeable, comfortable with the plan of care Admission and Anticipated Discharge Date Admission Date: January 31, 2022 Subjective ff up for alcoholic hepatitis, etc seen resting in bed, sitting up comfortable states she feels better overall no abdominal pain ,nausea/vomiting, fever/chills no chest pain, dyspnea, palpitations, dizziness no weakness, or numbness no other symptoms states she is ready and states she really would like to be discharged today Review of Systems Review of Systems: all noted and negative except for above Physical Exam Physical Exam: General- oriented x 3, not in distress, speaks in sentences with no effort or accessory muscle use Eyes- mild icterus Neck- no JVD Lungs- clear BS bilaterally, no rales/wheezes Heart- normal rate, regular rhythm; no murmurs Abdomen- normal bowel sounds, nondistended, soft, nontender Extremities- no pretibial edema, no calf tenderness Neuro- alert, oriented x 3; no gross focal neurologic deficits Skin- warm & dry Results & Data Results & Data ([facility]) Vital Signs (Past 12 Hours) Vital Signs Temp Pulse Resp BP Pulse Ox 02/02/22 11:05 36.9 C 87 18 106/71 96 02/02/22 07:22 105 H 16 98 02/02/22 07:08 36.9 C 89 20 113/77 98 02/02/22 03:24 36.8 C 90 20 97/62 L 96 all noted and reviewed including below (1) Alcoholic hepatitis Ascites presence: with ascites Qualified Code(s): K70.11 - Alcoholic hepatitis with ascites
--- NOTE | 2022-02-02 14:45 | Discharge Summary ---
Date of Service February 02, 2022 Admission HPI Per Admitting Provider Patient is 36y/o F with PMH EtOH abuse, pancreatitis, prior alcoholic hepatitis, asthma, depression, anxiety, ADHD presented to the ER with complaint of yellow coloration of skin. Patient reports started drinking alcohol again 2 weeks ago. Reports was drinking 6 airplane bottles of 99 proof alcohol daily. Reports last drink was 4 days ago. Patient states had 1 episode of vomiting and sweats. Denies other withdrawal symptoms. Patient states 1 week ago noticed that her skin and eyes were appearing yellow and her urine was dark color. She reports 4 days ago had bilateral upper abdominal discomfort. Patient states no further abdominal discomfort and currently denies any abdominal pain. She denies noting any increased abdominal distention. Patient reports is following with outpatient alcoholic rehab. Denies fever, chills, melena, hematochezia, hematemesis, diarrhea, constipation, LLOYD, dizziness, syncope, vision changes, neck pain, CP, SOB, orthopnea, palpitations, cough, sore throat, choking, otalgia, rhinorrhea, paresthesias, weakness, extremity weakness, extremity edema, rashes, urinary symptoms. Admission Exam Per Admitting Provider General: no distress, WDWN Head: normocephalic, atraumatic Eyes: PERRL, EOM's intact, conjunctiva non-injected, +icteric ENT: normal inspection external ears, nose, mucous membranes moist Neck: supple, trachea midline, non-tender Lungs: clear, no respiratory distress, no wheezing/rhonchi/rales CV: RRR, no murmur, no JVD, no pretibial edema Abd: normal BS, soft, non-tender to palpation Ext: no cyanosis, no calf tenderness Neuro: A&O x 3, no focal deficits noted, normal affect Skin: +jaundice, warm, dry Principal Diagnosis Alcoholic hepatitis Low phosphorus, potassium, magnesium Discharge Exam General- oriented x 3, not in distress, speaks in sentences with no effort or accessory muscle use Eyes- mild icterus Neck- no JVD Lungs- clear BS bilaterally, no rales/wheezes Heart- normal rate, regular rhythm; no murmurs Abdomen- normal bowel sounds, nondistended, soft, nontender Extremities- no pretibial edema, no calf tenderness Neuro- alert, oriented x 3; no gross focal neurologic deficits Skin- warm & dry Discharge Data Allergies Allergy/AdvReac Type Severity Reaction Status Date / Time banana Allergy Intermediate RASH, Verified 01/31/22 16:21 THROAT SLIGHTLY SWOLLEN Penicillins Allergy Unknown HAPPENED Verified 01/31/22 16:21 A CHILD Consultations 01/31/22 17:22 ED Decision to Admit Stat 02/01/22 07:00 Consult Gastroenterology Routine 02/02/22 07:47 Consult Nephrology Routine Ordered Studies 01/31/22 15:39 CT abd pelvis IV con only Stat FINDINGS: Mild dependent changes noted at the lung bases. No pneumoperitoneum. No pneumatosis. No acute fractures within the visualized osseous structures. Small fat-containing right inguinal hernia. This remains unchanged. Nodular contour to the liver consistent with cirrhosis. The liver remains mildly enlarged. There is heterogeneous enhancement within the liver with evidence for steatosis. This remains unchanged. The spleen remains enlarged measuring 16 cm in length. The adrenal glands, pancreas, and kidneys are unremarkable. No hydronephrosis. Normal bladder. The uterus and ovaries are unremarkable. Trace pelvic free fluid. There is also trace perihepatic ascites. This has significantly improved in the interval. The main portal vein is patent. Diffuse gallbladder wall thickening/edema remains unchanged. This is likely due to the patient's cirrhosis. No retroperitoneal lymphadenopathy. Normal caliber abdominal aorta. No bowel wall thickening or obstruction. Mild thickening at the sigmoid colon is likely due to underdistention and muscular hypertrophy from the diverticulosis. No evidence for acute diverticulitis. Normal appendix. IMPRESSION: 1. No bowel wall thickening or obstruction. 2. Normal appendix. 3. Colonic diverticulosis. No evidence for acute diverticulitis. 4. Cirrhotic liver with splenomegaly, unchanged. 5. Diffuse gallbladder wall thickening/edema. This is also unchanged and is likely due to the patient's cirrhosis. 6. Trace ascites. This has significantly improved in the interval. Hospital Course (1) Alcoholic hepatitis: (2) Hyperbilirubinemia: Per admitting service notes with addendum Patient is 36y/o F with PMH EtOH abuse, pancreatitis, prior alcoholic hepatitis, cirrhosis, ascites, asthma, depression, anxiety, ADHD presented to the ER with complaint of yellow coloration of skin. Started drinking alcohol again 2 weeks ago. Reports was drinking 6 airplane bottles of 99 proof alcohol daily. Reports last drink was 4 days ago. 4 days ago had upper abdominal discomfort which has since resolved In ER afebrile, Vitals stable. No leukocytosis, Hgb: 11, Plt: 75, T bili: 20, direct bili: 13.5, AST: 90, ALT: 23, alk phos: 366, INR: 1.9. Lipase: 10 CT ABD/PELVIS: No bowel wall thickening or obstruction. 2. Normal appendix. 3. Colonic diverticulosis. No evidence for acute diverticulitis. 4. Cirrhotic liver with splenomegaly, unchanged. 5. Diffuse gallbladder wall thickening/edema. This is also unchanged and is likely due to the patient's cirrhosis. 6. Trace ascites. This has significantly improved in the interval. Patient alert and oriented x3 with no change in mentation No current abdominal pain. Trace ascites noted on CT abdomen pelvis. No leukocytosis, no fever, chills. SBP less likely at this time Maddrey score >32. Will start prednisone 40mg daily Patient needs to avoid alcohol Continue Lasix, spironolactone GI consult CBC, CMP in a.m. 02/02 Evaluated by GI service Given prednisolone 40 mg daily x30 days then taper Denies GI symptoms today Bilirubin and LFTs trending down Repeat Lille score in 7 days after starting prednisolone to check for response (will arrange ff up with GI this week) Low Ph, Mh, K, Ns likely from Diuretics, Alcoholism, Poor oral intake Hypophosphatemia < 1.0 IV and PO Ph, Mg, K given; NSS given Ph normalized consulted nephrology Dr. Rojas- - Unlikley tubular defect causing multiple problems, more so the levels have remained steady after supplementation. - At the moment, would not investigate this further with fractional excretion of electrolytes. discharge on: K 40meqs daily Neutro phos 2 tabs TID Mg oxide 400mg BID repeat labs on Thu02/05/22 PCP ff up on 02/06/22 Improved with oral magnesium (3) Alcohol abuse: Currently following outpatient alcohol rehab Started drinking again 2 weeks ago. Last drink reported 4 days ago. Alcohol level undetectable Was given banana bag in ER Abstain from alcohol Folic acid, thiamine, multivitamin daily 02/02 no signs of acute alcohol withdrawal at this time Strongly advised to abstain from alcohol (4) Hypokalemia: (5) Hypomagnesemia: (6) Hyponatremia: Management per above (7) Asthma: no Signs of exacerbation Continue home inhalers (8) ADD (attention deficit disorder): (9) Anxiety: Continue Adderall, hydroxyzine as needed (10) Tobacco use: Smoking cessation encouraged Nicotine patch DVT Prophylaxis SCDs Follow-up with PCP this coming Thursday GI clinic follow-up scheduled for Thursday plan of care discussed with patient in detail and at length all questions answered she is understanding, agreeable, comfortable with the plan of care Total Time Total Time Spent Total Time Spent (In Minutes): >30 minutes Discharge Plan Discharge Items Patient Disposition: Home - Self-Care Reason For Visit: REFERRED BY . ABNORMAL LABS Discharge Diagnosis: Alcoholic hepatitis Low magnesium, phosphorus, potassium levels Activity: Resume your previous activity Activity Comment: Increase activity gradually as tolerated, no heavy exertion Lifting: Wait until after follow-up appointment Exercise/Sports: Wait until after follow-up appointment Driving/Machine Use: No driving until reevaluated and allowed by med peds Non-emergency contact: Primary Care Provider Call non-emergency contact if: you have any medication questions, your symptoms worsen, your pain is not controlled, your pain is worsening, your pain is unusual for you, your pain is concerning for you and you have a fever Follow-up/Referrals: Zaina Bunch MD [Primary Care Provider] - Diet: Heart Healthy and Low Sodium (2gm) Addtl Attending Provider Instructions: PLEASE REFER TO YOUR NEW MEDICATION LIST AND FOLLOW INSTRUCTIONS CAREFULLY. YOUR NEW MEDICATIONS INCLUDE: Prednisolone-steroid for treatment of alcoholic hepatitis Do not stop abruptly. This medication needs to be tapered off as directed by her physician before stopping. Potassium supplement Nlljun-Tcwy-iswctzkikb supplement Magnesium supplement NO ALCOHOL. PLEASE CALL YOUR PRIMARY CARE PHYSICIAN OR RETURN TO THE ER IF WITH WORSENING OF SYMPTOMS, INCLUDING Abdominal pain, nausea or vomiting, fevers or chills, confusion, worsening of yellowing of the skin or eyes FOLLOW UP WITH PRIMARY CARE PHYSICIAN this week as scheduled. 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 Pending Studies at Discharge: Yes Studies:: Repeat blood work on Thursday including basic metabolic profile, phosphorus, magnesium level. Repeat blood work care of gastroenterology clinic this week. Stand-Alone Forms: [facility], Smoking Cessation Medications and DC Order Prescriptions: New prednisolone sodium phosphate 15 mg/5 mL (3 mg/mL) Solution 40 mg PO DAILY 30 Days Qty: 399.999 RF: 0 potassium chloride 20 mEq Tablet,Er Particles/Crystals 40 meq PO DAILY 14 Days Qty: 28 RF: 0 magnesium oxide 400 mg (241.3 mg magnesium) Tablet 400 mg PO BID 14 Days Qty: 28 RF: 0 Phospha 250 Neutral 250 mg Tablet 2 tab PO TID 14 Days Qty: 84 RF: 0 thiamine HCl (vitamin B1) 100 mg Tablet 100 mg PO QAM 7 Days Qty: 7 RF: 0 folic acid 1 mg Tablet 1 mg PO QAM 7 Days Qty: 7 RF: 0 Continued albuterol sulfate [ProAir HFA] 90 mcg/actuation Hfa Aerosol Inhaler 1 inh INHALATION QID PRN (Reason: Shortness Of Breath) RF: 0 omeprazole 20 mg Capsule,Delayed Release(Dr/Ec) 20 mg PO QAM RF: 0 montelukast 10 mg Tablet 10 mg PO HS RF: 0 dextroamphetamine-amphetamine [Adderall] 5 mg Tablet 5 mg PO BID RF: 0 loratadine 10 mg Tablet 10 mg PO QAM RF: 0 budesonide-formoterol [Symbicort] 160-4.5 mcg/actuation Hfa Aerosol Inhaler 2 puff INHALATION BID RF: 0 Combivent Respimat 20-100 mcg/actuation Mist 1 puff INHALATION BID RF: 0 multivitamin Tablet 1 tab PO QAM RF: 0 azelastine 137 mcg (0.1 %) Aerosol,Jay 1 spray INTRANASAL BID RF: 0 fluticasone propionate 50 mcg/actuation Jay,Suspension 2 spray INTRANASAL DAILY RF: 0 thiamine HCl (vitamin B1) 100 mg Tablet 100 mg PO QAM Qty: 30 RF: 0 milk thistle 500 mg Capsule 0 mg PO QAM RF: 0 ascorbic acid (vitamin C) [Vitamin C] 500 mg Tablet 500 mg PO QAM RF: 0 cholecalciferol (vitamin D3) [Vitamin D3] 50 mcg (2,000 unit) Capsule 2,000 mcg PO QAM RF: 0 dyyqzfw-qztu-qiton-oreg-capryl 0 MG 0 mg PO QAM RF: 0 spironolactone 100 mg tablet 100 mg PO DAILY RF: 0 hydroxyzine HCl 25 mg tablet 1 mg PO TID PRN (Reason: Anxiety) RF: 0 Spiriva Respimat 2.5 mcg/actuation mist 2 puff INHALATION DAILY RF: 0 ondansetron HCl 4 mg Tablet 4 mg PO Q8H PRN (Reason: Nausea) RF: 0 tramadol 50 mg Tablet 50 mg PO Q6H PRN (Reason: Pain) RF: 0 furosemide [Lasix] 40 mg Tablet 40 mg PO QAM RF: 0 spironolactone 50 mg Tablet 50 mg PO PM RF: 0 furosemide 20 mg tablet 20 mg PO PM RF: 0 Discharge Orders: Discharge Order (Routine); Ordered 02/02/22 Ordered By: Tyrel Chahal Admission Data Admit Date/Time: 01/31/22 18:16 Attending Provider: Tyrel Chahal Admit Provider: Aditya Crawford Primary Care Provider: Zaina Bunch Other Providers: Aditya Crawford ; Huber Zamorano ; Leslie Rojas
[2022-02-03 07:35] LABS: Estimated Average Glucose 126 mg/dl
== END 2022-02-02 15:08 | disposition home or self-care (01) | DRG 433 ==
LOC: ED 13:13 → SUATTDRO 18:16 → 2N 18:16 → INTOOBSV 18:16 → 2N 20:07

== ENCOUNTER 2022-03-12 00:16 | Inpatient (IN) ==
[2022-03-12] MEDS ORDERED: LORazepam 1 MG in SYRINGE 0.5 ML IV STA (00:53)
[2022-03-12 00:59] LABS: Hematocrit (blood only) 30.7 % (37-47); Hemoglobin 10.9 g/dL (12.0-16.0); Mean Corpuscular Hemoglobin 34.8 pg (25-34); Mean Corpuscular Hgb Conc 35.5 g/dL (32-36); Mean Corpuscular Volume 98.1 fL (80-100); RDW Coefficient of Variation 16.6 % (11.5-14.5); RDW Standard Deviation 59.2 fL (36.4-46.3); Red Blood Count 3.13 M/uL (4.2-5.4); White Blood Count 18.95 K/uL (4.8-10.8)
[2022-03-12 01:17] LABS: Mean Platelet Volume 10.5 fL (7.4-10.4); Platelet Count 52 K/uL (130-400)
[2022-03-12 01:18] LABS: Alanine Aminotransferase 29 U/L (7-52); Albumin Globulin Ratio 0.8 (0.9-2); Albumin Level 3.2 gm/dl (3.4-5.0); Alkaline Phosphatase 490 U/L (34-104); Anion Gap 14 (3-11); Aspartate Aminotransferase 94 U/L (13-39); BUN Creatinine Ratio 4.3 (10-20); Basophils # (auto) 0.02 K/uL (0-0.2); Basophils % (auto) 0.1 %; Bilirubin,Total 21.2 mg/dl (0.2-1.0); Blood Urea Nitrogen 3 mg/dl (6-23); Calcium 7.6 mg/dl (8.5-10.1); Carbon Dioxide 29 mmol/L (21-32); Chloride 81 mmol/L (98-107); Creatinine Clr Calc Pharmacy 102.9 ml/min; Eosinophils # (auto) 0.09 K/uL (0-0.5); Eosinophils % (auto) 0.5 %; Est GFR (African American) 130.1 ml/min; Est GFR (Non-African American) 112.3 ml/min; Globulin 3.8 gm/dl (2.5-4.0); Glucose 135 mg/dl (70-99(Fasting)); Immature Granulocytes # (auto) 0.08 K/uL (0.00-0.02); Immature Granulocytes % (auto) 0.4 %; Lymphocytes # (auto) 0.95 K/uL (1.2-3.4); Magnesium 2.1 mg/dl (1.7-2.4); Monocytes % (auto) 5.8 %; Neutrophils # (auto) 16.71 K/uL (1.4-6.5); Neutrophils % (auto) 88.2 %; Platelet Estimate Decreased (Normal); Potassium 2.9 mmol/L (3.5-5.1); Sodium 124 mmol/L (136-145)
[2022-03-12 01:28] LABS: Pregnancy Test, Serum Negative (Negative)
[2022-03-12 01:30] LABS: INR 1.3 (0.9-1.1); Partial Thromboplastin Ratio 1.2; Partial Thromboplastin Time 34.2 Seconds (21.0-31.0); Prothrombin Time 14.1 Seconds (9.0-12.0)
[2022-03-12 01:36] LABS: Phosphorus 3.1 mg/dl (2.5-4.9)
[2022-03-12] MEDS ORDERED: LORazepam 2 MG/1 ML VIAL ONE (02:15)
[2022-03-12] MEDS ORDERED: THIAMINE HCL 100 MG in SYRINGE 9 ML IV STA (02:56)
[2022-03-12] MEDS ORDERED: SODIUM CHLORIDE 0.9% 500 ML IV ONE (02:58)
[2022-03-12] MEDS ORDERED: POTASSIUM CHLORIDE CRTAB 20 MEQ TABCR PO STA (02:58)
[2022-03-12 03:29] LABS: Troponin I High Sensitivity 12.7 pg/ml (0-14)
[2022-03-12] MEDS ORDERED: ALBUMIN 25% 100 mL 25 GM/100 ML VIAL IV ONE (03:49)
[2022-03-12] MEDS ORDERED: cefTRIAXone SODIUM 1,000 MG/50 ML BAG IV STA (03:49)
--- NOTE | 2022-03-12 04:13 | History & Physical Report ---
Date of Service March 12, 2022 Assessment & Plan (1) Decompensated hepatic cirrhosis: Plan: History of alcoholic cirrhosis Sepsis secondary to possible SBP Alcoholic hepatitis, cirrhosis with Madrey's DF score of 37.8 Hyponatremia secondary to illness ADD, at baseline chronic anemia, hemoglobin at baseline Hypokalemia secondary to emesis, diuretic Rx Hyperglycemia likely prediabetes hemoglobin A1c of 6 from January 2022 past tobacco abuse Medical telemetry CS, ceftriaxone, albumin for possible SBP Diagnostic/therapeutic paracentesis in a.m. GI consult Re: Decompensated cirrhosis, alcoholic hepatitis Careful correction of sodium, may need nephrology consultation Replace potassium DVT prophylaxis. SCDs Re: Thrombocytopenia Full code Text document was generated using [employer] voice recognition software. It may contain grammatical or spelling errors. Kindly contact undersigned for clarification of any documentation item in question. History of Present Illness Chief Complaint: Abdominal pain/distention Primary Care Provider: Zaina Bunch MD History obtained from patient and records. Medical history significant for alcoholic cirrhosis, portal hypertension, ADD, asthma, chronic anemia (baseline hemoglobin of 12 ), past tobacco abuse. Last confinement January 2022 for alcoholic hepatitis. Patient discharged on prednisone course. 2 weeks ago, patient noted achy epigastric pain with worsening abdominal distention followed by nausea, emesis. Patient denies black or bloody stools. No fever, no chills. No chest pain, no SOB. Patient consulted ER for worsening symptoms along with jaundice. Medical History as above Surgical History : none Family History : Lung cancer, breast cancer, melanoma, lung cancer, heart disease Personal/Social history : Non-smoker, alcohol abuse, [employer] employee Allergies Allergy/AdvReac Type Severity Reaction Status Date / Time banana Allergy Intermediate RASH, Verified 03/12/22 01:11 THROAT SLIGHTLY SWOLLEN Penicillins Allergy Unknown HAPPENED Verified 03/12/22 01:11 A CHILD Home Medications Medication Instructions Recorded Confirmed Type albuterol sulfate 90 mcg/actuation 1 inh INHALATION QID PRN 06/24/20 03/12/22 History aerosol inhaler (ProAir HFA) budesonide-formoterol HFA 160 2 puff INHALATION BID 06/20/21 03/12/22 History mcg-4.5 mcg/actuation aerosol inhaler (Symbicort) dextroamphetamine-amphetamine 5 mg 5 mg PO BID 06/20/21 03/12/22 History tablet (Adderall) ipratropium 20 mcg-albuterol 100 1 puff INHALATION BID 06/20/21 03/12/22 History mcg/actuation mist for inhalation (Combivent Respimat) loratadine 10 mg tablet 10 mg PO QAM 06/20/21 03/12/22 History montelukast 10 mg tablet 10 mg PO HS 06/20/21 03/12/22 History omeprazole 20 mg capsule,delayed 20 mg PO QAM 06/20/21 03/12/22 History release azelastine 137 mcg (0.1 %) nasal 1 spray INTRANASAL BID 10/03/21 03/12/22 Hist ory spray aerosol fluticasone propionate 50 2 spray INTRANASAL DAILY 10/03/21 03/12/22 History mcg/actuation nasal spray,suspension multivitamin 1 tab PO QAM 10/03/21 03/12/22 History thiamine HCl (vitamin B1) 100 mg 100 mg PO QAM #30 tab 10/09/21 03/12/22 Rx tablet ondansetron HCl 4 mg tablet 4 mg PO Q8H PRN 10/31/21 03/12/22 History tramadol 50 mg tablet 50 mg PO Q6H PRN 10/31/21 03/12/22 History furosemide 20 mg tablet 20 mg PO PM 11/20/21 03/12/22 History furosemide 40 mg tablet (Lasix) 40 mg PO QAM 11/20/21 03/12/22 History spironolactone 50 mg tablet 50 mg PO PM 11/20/21 03/12/22 History ascorbic acid (vitamin C) 500 mg 500 mg PO QAM 01/31/22 03/12/22 History tablet (Vitamin C) cholecalciferol (vitamin D3) 50 2,000 mcg PO QAM 01/31/22 03/12/22 History mcg (2,000 unit) capsule (Vitamin D3) hydroxyzine HCl 25 mg tablet 1 mg PO TID PRN 01/31/22 03/12/22 History milk thistle 500 mg capsule 0 mg PO QAM 01/31/22 03/12/22 History spironolactone 100 mg tablet 100 mg PO DAILY 01/31/22 03/12/22 History tiotropium bromide 2.5 2 puff INHALATION DAILY 01/31/22 03/12/22 History mcg/actuation mist for inhalation (Spiriva Respimat) gvpgfwq-lxjn-dqqbq-oreg-capryl 0 mg PO QAM 01/31/22 03/12/22 History Past Med/Surg History Medical History ADD (attention deficit disorder) Alcohol abuse Alcoholic hepatitis Alcoholic pancreatitis Allergic sinusitis Anxiety Asthma Depression Fatty liver History of abdominal paracentesis Tobacco use Surgical History History of esophagogastroduodenoscopy (EGD) Family History Grandmother Breast cancer Grandfather Heart disease Social History Smoking Status: Former smoker Tobacco Type: Cigarettes Cigarettes Per Day: 1-2 cigarettes/day; Smoking End Date: 03/08/2022; Second Hand Exposure: No; Do You Dip or Chew Tobacco: No; Tobacco Cessation Education Requested by Patient: No Hx Alcohol Use: Yes Alcohol type: beer Hx Substance Use: No Preferred Language: Serbian 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 Ability: Effective 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 Machine 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 Required: No Beliefs That Will Affect Care: None marital status: Single Current Living Situation: Significant Other Current Living Situation Comment: Apartment current occupational status: employed How many Children do You have: 0 Other Information That Helps Us Care for You: No Feels Safe at Home: Yes Safety Concerns: Feels Safe At This Time Assistive Devices: None Review of Systems Review of Systems: As per HPI, all other systems reviewed and negative Physical Exam Physical Exam: GENERAL: intoxicated, no respiratory distress SKIN: Jaundiced, warm HEENT:pale palpebral conjunctivae, icteric sclerae, no ptosis, dry buccal mucosa NECK : Supple, short neck, no tenderness CHEST : CTA, no tenderness HEART : Tachycardic, no obvious murmurs ABDOMEN: distention, minimal epigastric tenderness EXTREMITIES : No LE swelling/tenderness, no other conspicuous deformities noted NEUROLOGIC : Coherent, no facial asymmetry, no other gross focality Results & Data Results & Data ([facility]) Vital Signs (Past 12 Hours) Vital Signs Temp Pulse Pulse Resp BP BP Pulse Ox 03/12/22 03:48 124 H 18 94 03/12/22 03:38 127 H 18 103/82 98 03/12/22 02:07 115 H 18 136/80 93 03/12/22 00:42 116 H 18 123/62 97 03/12/22 00:20 36.6 C 125 H 18 123/74 98 Laboratory Results Laboratory Results WBC 18.95 K/uL (4.8-10.8) H 03/12/22 00:44 RBC 3.13 M/uL (4.2-5.4) L 03/12/22 00:44 Hgb 10.9 g/dL (12.0-16.0) L 03/12/22 00:44 Hct 30.7 % (37-47) L 03/12/22 00:44 MCV 98.1 fL (80-100) 03/12/22 00:44 MCH 34.8 pg (25-34) H 03/12/22 00:44 MCHC 35.5 g/dL (32-36) 03/12/22 00:44 RDW Std Deviation 59.2 fL (36.4-46.3) H 03/12/22 00:44 RDW Coeff of Yasmine 16.6 % (11.5-14.5) H 03/12/22 00:44 Plt Count 52 K/uL (130-400) L 03/12/22 00:44 MPV 10.5 fL (7.4-10.4) H 03/12/22 00:44 Immature Gran % (Auto) 0.4 % 03/12/22 00:44 Neut % (Auto) 88.2 % 03/12/22 00:44 Lymph % (Auto) 5.0 % 03/12/22 00:44 [place] % (Auto) 5.8 % 03/12/22 00:44 Eos % (Auto) 0.5 % 03/12/22 00:44 Baso % (Auto) 0.1 % 03/12/22 00:44 Neut # (Auto) 16.71 K/uL (1.4-6.5) H 03/12/22 00:44 Lymph # (Auto) 0.95 K/uL (1.2-3.4) L 03/12/22 00:44 Pinal # (Auto) 1.10 K/uL (0.11-0.59) H 03/12/22 00:44 Eos # (Auto) 0.09 K/uL (0-0.5) 03/12/22 00:44 Baso # (Auto) 0.02 K/uL (0-0.2) 03/12/22 00:44 Immature Gran # (Auto) 0.08 K/uL (0.00-0.02) H 03/12/22 00:44 Platelet Estimate Decreased (Normal) L 03/12/22 00:44 PT 14.1 Seconds (9.0-12.0) H 03/12/22 00:44 INR 1.3 (0.9-1.1) H 03/12/22 00:44 APTT 34.2 Seconds (21.0-31.0) H 03/12/22 00:44 PTT Ratio 1.2 03/12/22 00:44 Sodium 124 mmol/L (136-145) L 03/12/22 00:44 Potassium 2.9 mmol/L (3.5-5.1) L 03/12/22 00:44 Chloride 81 mmol/L (98-107) L 03/12/22 00:44 Carbon Dioxide 29 mmol/L (21-32) 03/12/22 00:44 Anion Gap 14 (3-11) H 03/12/22 00:44 BUN 3 mg/dl (6-23) L 03/12/22 00:44 Creatinine 0.70 mg/dl (0.6-1.2) 03/12/22 00:44 Est Cr Clr Drug Dosing 102.9 ml/min 03/12/22 00:44 Est GFR ( Amer) 130.1 ml/min 03/12/22 00:44 Est GFR (Non-Af Amer) 112.3 ml/min 03/12/22 00:44 BUN/Creatinine Ratio 4.3 (10-20) L 03/12/22 00:44 Glucose 135 mg/dl (70-99(Fasting)) H 03/12/22 00:44 Osmolality 362 mOsm/kg (280-300) H* 03/12/22 00:44 Calcium 7.6 mg/dl (8.5-10.1) L 03/12/22 00:44 Phosphorus 3.1 mg/dl (2.5-4.9) 03/12/22 00:44 Magnesium 2.1 mg/dl (1.7-2.4) 03/12/22 00:44 Total Bilirubin 21.2 mg/dl (0.2-1.0) H 03/12/22 00:44 AST 94 U/L (13-39) H 03/12/22 00:44 ALT 29 U/L (7-52) 03/12/22 00:44 Alkaline Phosphatase 490 U/L (34-104) H 03/12/22 00:44 Ammonia TNP 03/12/22 02:10 Troponin I High Sens 12.7 pg/ml (0-14) 03/12/22 00:44 Total Protein 7.0 gm/dl (6.0-8.3) 03/12/22 00:44 Albumin 3.2 gm/dl (3.4-5.0) L 03/12/22 00:44 Globulin 3.8 gm/dl (2.5-4.0) 03/12/22 00:44 Albumin/Globulin Ratio 0.8 (0.9-2) L 03/12/22 00:44 Amylase TNP 03/12/22 00:44 Lipase TNP 03/12/22 00:44 Procalcitonin 0.40 ng/ml (0-0.5) 03/12/22 00:44 TSH 4.070 uIu/ml (0.300-4.500) 03/12/22 00:44 HCG, Qual Negative (Negative) 03/12/22 00:44 Ethyl Alcohol mg/dL 411.7 mg/dl (<10.0) H 03/12/22 02:10 SARS-CoV-2, RNA, NAAT NEGATIVE (NEGATIVE) 03/12/22 00:57 Diagnostic Findings Chest x-ray as per my interpretation atelectasis, possible right effusion right EKG as per my interpretation : Rate 120, sinus tachycardia, normal axis, T wave abnormality septal leads, septal infarct, low voltage
[2022-03-12] MEDS ORDERED: PROMETHAZINE HCL 12.5 MG in SODIUM CHLORIDE 0.9% 50 ML IV STA (04:29)
[2022-03-12] MEDS ORDERED: LORazepam 3 MG in SYRINGE 1.5 ML IV PRN (06:39)
[2022-03-12] MEDS ORDERED: PROMETHAZINE HCL 12.5 MG in SODIUM CHLORIDE 0.9% 50 ML IV PRN (06:39)
[2022-03-12] MEDS ORDERED: ATIVAN IV ALCOHOL WITHDRAWL IV PRN (06:39)
[2022-03-12] MEDS ORDERED: POTASSIUM CHLORIDE CRTAB 20 MEQ TABCR PO ONE (06:39)
[2022-03-12] MEDS ORDERED: METOCLOPRAMIDE HCL INJ 5 MG/ML 2 ML VIAL IV ONE (06:52)
--- NOTE | 2022-03-12 07:11 | XRay Report ---
XR chest 1V portable HISTORY: 37 years-old Female hyponatremia COMPARISON: CT abdomen and pelvis 01/31/2022, chest radiograph 10/22/2021 TECHNIQUE: Portable AP view of the chest FINDINGS: The cardiomediastinal and hilar silhouettes are within normal limits. Mild blunting of the lateral ri ght costophrenic angle with minimal right basilar densities. No pneumothorax or overt pulmonary edema . Healed chronic left-sided rib fractures. IMPRESSION: Questioned trace right pleural effusion with right basilar atelectasis. ACT 112: Negative or not required by law. The above report was generated using voice recognition software. It may contain grammatical, syntax o r spelling errors. Electronically signed by: Bud Madera M.D. 03/12/2022 7:09 AM
[2022-03-12] MEDS ORDERED: OPTIRAY 320 100ml IV ONE (08:24)
[2022-03-12 08:39] LABS: Hematocrit (blood only) 23.9 % (37-47); Hemoglobin 8.5 g/dL (12.0-16.0); Mean Corpuscular Hemoglobin 35.4 pg (25-34); Mean Corpuscular Volume 99.6 fL (80-100); RDW Coefficient of Variation 16.7 % (11.5-14.5); RDW Standard Deviation 60.2 fL (36.4-46.3); White Blood Count 13.51 K/uL (4.8-10.8)
[2022-03-12 08:40] LABS: Mean Corpuscular Hgb Conc 35.6 g/dL (32-36); Mean Platelet Volume 11.1 fL (7.4-10.4); Platelet Count 41 K/uL (130-400)
[2022-03-12] MEDS ORDERED: POTASSIUM CHLORIDE 10 MEQ TABCR PO ONE (08:56)
[2022-03-12] MEDS: FLUTICASONE/VILANTEROL 200/25MCG 14 PUFFS/INHALER INH SCH (08:59)
[2022-03-12] MEDS: FLUTICASONE PROPIONATE NA SPR 16 GM BTL SCH (09:00)
[2022-03-12] MEDS: UMECLIDINIUM BROMIDE 62.5MCG/BLISTER 7 PUFFS/INHALER INH SCH (09:00)
[2022-03-12] MEDS ORDERED: IPRATROPIUM BROMIDE/ALBUTEROL respimat INH INH SCH (09:00)
[2022-03-12] MEDS: AZELASTINE HCL 0.1% NASAL 200 SPRAYS/27,400 MCG BTL SCH ×2 (09:01→20:46)
[2022-03-12 09:07] LABS: Basophils # (auto) 0.01 K/uL (0-0.2); Basophils % (auto) 0.1 %; Eosinophils # (auto) 0.02 K/uL (0-0.5); Eosinophils % (auto) 0.1 %; Immature Granulocytes # (auto) 0.06 K/uL (0.00-0.02); Immature Granulocytes % (auto) 0.4 %; Lymphocytes # (auto) 1.07 K/uL (1.2-3.4); Lymphocytes % (auto) 7.9 %; Monocytes % (auto) 1.5 %; Neutrophils # (auto) 12.15 K/uL (1.4-6.5); Target Cells 1+
[2022-03-12 09:08] LABS: BUN Creatinine Ratio 5.8 (10-20); Calcium 6.7 mg/dl (8.5-10.1); Creatinine Clr Calc Pharmacy 104.3 ml/min; Est GFR (African American) 130.7 ml/min; Est GFR (Non-African American) 112.8 ml/min; Magnesium 1.7 mg/dl (1.7-2.4); Phosphorus 2.5 mg/dl (2.5-4.9); Potassium 3.2 mmol/L (3.5-5.1)
--- NOTE | 2022-03-12 09:11 | CT Scan Report ---
ABDOMEN AND PELVIS CT WITH IV CONTRAST CT DOSE: 619.05 mGy.cm HISTORY: Acute generalized abdominal pain with nausea and vomiting abd pain nv TECHNIQUE: Multiaxial CT images of the abdomen and pelvis were performed following the IV administrat ion of 95 cc of Optiray, A dose lowering technique was utilized adhering to the principles of ALARA. COMPARISON STUDY: 01/31/2022 FINDINGS: Cardiomegaly. Study is limited secondary to respiratory motion artifact. Bibasilar opacitie s are suggestive of atelectasis. There is no pneumatosis or pneumoperitoneum. The spleen is moderatel y enlarged, 16.6 cm. Unremarkable pancreas and adrenal glands. Decompressed gallbladder with wall thi ckening is similar to the prior study. Hepatic steatosis with hepatomegaly and cirrhosis redemonstrat ed. Patent portal vein. No hepatic mass identified. Recanalization of the umbilical vein. Increased a mount of small to moderate abdominal pelvic ascites. Periesophageal varicosities. Unremarkable kidneys. There is no hydronephrosis. Urinary bladder wall thickening with partial disten tion. Unremarkable uterus and adnexa. Small fat filled right inguinal hernia. The aorta and IVC are u nremarkable. There is no lymphadenopathy identified. Diffuse gastric wall thickening may be secondary to partial distention. There is no bowel obstruction . Colonic diverticulosis. Multifocal wall thickening is noted throughout the large bowel. Normal appe ndix. Unremarkable soft tissues. Mild thoracolumbar scoliosis. No acute fracture. IMPRESSION: 1. Hepatic steatosis with hepatomegaly, cirrhosis and stigmata of portal venous hypertension includin g splenomegaly with progressive abdominal pelvic ascites. 2. Wall thickening of the colon may be secondary to portal colopathy versus a nonspecific colitis. 3. No bowel obstruction. 4. Normal appendix. 5. Additional findings as above. ACT 112: Negative or not required by law. The above report was generated using voice recognition software. It may contain grammatical, syntax o r spelling errors. Electronically signed by: Bud Madera M.D. 03/12/2022 9:09 AM
[2022-03-12] MEDS: Albuterol HFA 8 GM Inhaler (Combivent Respimat P&T Subs) INH SCH ×2 (09:21→19:25)
[2022-03-12] MEDS: Ipratropium HFA Inhaler (Combivent Respimat P&T Subs) INH SCH ×2 (09:21→20:41)
[2022-03-12] MEDS: FOLIC ACID 1 MG TAB PO SCH (11:19)
[2022-03-12] MEDS: AMPHETAMINE ASP/SULF/DEXTRAMPH 5 MG TAB PO SCH ×2 (11:19→20:46)
[2022-03-12] MEDS: LORATADINE 10 MG TAB PO SCH (11:19)
[2022-03-12] MEDS: MULTIVITAMIN TAB PO SCH (11:20)
[2022-03-12] MEDS: PANTOprazole 40 MG TAB PO SCH (11:20)
[2022-03-12] MEDS: ALBUMIN 25% 100 mL 25 GM/100 ML VIAL IV SCH ×2 (11:45→17:39)
--- NOTE | 2022-03-12 11:56 | Nephrology Consultation ---
Date of Consultation March 12, 2022 Assessment & Plan (1) Acute hyponatremia: Patient with acute hyponatremia in setting of alcohol intoxication. She had high alcohol levels of 411 mg/dL. Sodium was 124 on admission but now down to 122. Serum osmolality 362. No need for IV fluids. We will continue to monitor with sodium check twice daily. I expect sodium to improve with the reduction in alcohol levels (2) Hypokalemia: Patient with hyponatremia and hypokalemia due to alcohol abuse. Potassium was improved to 3.2. We will give an additional 40 mEq of KCl IV. Patient is having trouble taking p.o. potassium (3) Decompensated hepatic cirrhosis: Patient with decompensated cirrhosis and ascites on physical exam. She will likely need paracentesis in the next few days. Continue to hold diuretics in setting of multiple electrolyte problems History of Present Illness Reason for Consultation: Hyponatremia Requesting Physician: Tyrel Chahal MD Attending Physician: Tyrel Chahal MD History of Present Illness This is a 37-year-old female with a history of Decompensated alcoholic cirrhosis, portal hypertension, ADD, asthma, chronic anemia (baseline hemoglobin of 12 ), past tobacco abuse. She gets frequent paracentesis. She was recently hospitalized in January 2022 for alcoholic hepatitis and discharged on prednisone. She has however continued to drink heavily. She reports not feeling well since discharge and has been having intermittent abdominal pain. Today she developed vomiting which prompted ER visit. She was found to have hyponatremia with sodiu m of 124. Serum osmolality 362. She also had Ethyl alcohol level 411. She received some IV potassium. Mother was at the bedside and provided some additional history. She lives in [place] and works at a [employer]. Lives with boyfriend Allergies Allergy/AdvReac Type Severity Reaction Status Date / Time banana Allergy Intermediate RASH, Verified 03/12/22 01:11 THROAT SLIGHTLY SWOLLEN Penicillins Allergy Unknown HAPPENED Verified 03/12/22 01:11 A CHILD Home Medications Medication Instructions Recorded Confirmed Type albuterol sulfate 90 mcg/actuation 1 inh INHALATION QID PRN 06/24/20 03/12/22 History aerosol inhaler (ProAir HFA) budesonide-formoterol HFA 160 2 puff INHALATION BID 06/20/21 03/12/22 History mcg-4.5 mcg/actuation aerosol inhaler (Symbicort) dextroamphetamine-amphetamine 5 mg 5 mg PO BID 06/20/21 03/12/22 History tablet (Adderall) ipratropium 20 mcg-albuterol 100 1 puff INHALATION BID 06/20/21 03/12/22 History mcg/actuation mist for inhalation (Combivent Respimat) loratadine 10 mg tablet 10 mg PO QAM 06/20/21 03/12/22 History montelukast 10 mg tablet 10 mg PO HS 06/20/21 03/12/22 History omeprazole 20 mg capsule,delayed 20 mg PO QAM 06/20/21 03/12/22 History release azelastine 137 mcg (0.1 %) nasal 1 spray INTRANASAL BID 10/03/21 03/12/22 History spray aerosol fluticasone propionate 50 2 spray INTRANASAL DAILY 10/03/21 03/12/22 History mcg/actuation nasal spray,suspension multivitamin 1 tab PO QAM 10/03/21 03/12/22 History thiamine HCl (vitamin B1) 100 mg 100 mg PO QAM #30 tab 10/09/21 03/12/22 Rx tablet ondansetron HCl 4 mg tablet 4 mg PO Q8H PRN 10/31/21 03/12/22 History tramadol 50 mg tablet 50 mg PO Q6H PRN 10/31/21 03/12/22 History furosemide 20 mg tablet 20 mg PO PM 11/20/21 03/12/22 History furosemide 40 mg tablet (Lasix) 40 mg PO QAM 11/20/21 03/12/22 History spironolactone 50 mg tablet 50 mg PO PM 11/20/21 03/12/22 History ascorbic acid (vitamin C) 500 mg 500 mg PO QAM 01/31/22 03/12/22 History tablet (Vitamin C) cholecalciferol (vitamin D3) 50 2,000 mcg PO QAM 01/31/22 03/12/22 History mcg (2,000 unit) capsule (Vitamin D3) hydroxyzine HCl 25 mg tablet 1 mg PO TID PRN 01/31/22 03/12/22 History milk thistle 500 mg capsule 0 mg PO QAM 01/31/22 03/12/22 History spironolactone 100 mg tablet 100 mg PO DAILY 01/31/22 03/12/22 History tiotropium bromide 2.5 2 puff INHALATION DAILY 01/31/22 03/12/22 History mcg/actuation mist for inhalation (Spiriva Respimat) votmtfo-ydux-alkam-oreg-capryl 0 mg PO QAM 01/31/22 03/12/22 History Patient History Medical History ADD (attention deficit disorder) Alcohol abuse Alcoholic hepatitis Alcoholic pancreatitis Allergic sinusitis Anxiety Asthma Depression Fatty liver History of abdominal paracentesis Tobacco use Surgical History History of esophagogastroduodenoscopy (EGD) Family History Grandmother Breast cancer Grandfather Heart disease Social History Smoking Status: Former smoker Tobacco Type: Cigarettes Cigarettes Per Day: 4; Second Hand Exposure: No; Hx Alcohol Use: Yes Alcohol type: hard liquor Hx Substance Use: No Preferred Language: Setswana 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 Ability: Effective Hand Candle Dipper Required: No Beliefs That Will Affect Care: None marital status: Single Current Living Situation: Spouse Current Living Situation Comment: Apartment current occupational status: employed How many Children do You have: 0 Feels Safe at Home: Yes Assistive Devices: Glasses Review of Systems Review of Systems: All other systems were reviewed and negative except as noted in HPI Physical Exam Physical Exam: General exam: Appears comfortable, no acute distress HEENT: Pupils are equal and reactive to light Neck: No JVD, neck is supple trachea is midline Respiratory system: Clear breath sounds bilaterally. Gastrointestinal: Abdomen is soft, mod distended, non tender, bowel sounds are present CVS: Regular rate and rhythm. No murmurs, rubs or gallops Musculoskeletal: No joint or muscle tenderness Extremities: Non tender, no edema, peripheral pulses are present Neuro: Oriented, no tremors, no focal neurological deficits Skin: No rashes Results & Data ([facility]) Vital Signs (Past 12 Hours) Vital Signs Temp Pulse Pulse Resp BP BP Pulse Ox 03/12/22 10:52 126 H 22 110/83 98 03/12/22 09:30 127 H 22 03/12/22 09:03 127 H 22 110/66 95 03/12/22 09:00 130 H 23 86/73 L 97 03/12/22 08:30 120 H 20 116/78 97 03/12/22 08:00 121 H 22 123/72 03/12/22 07:30 132 H 12 115/69 100 03/12/22 07:00 127 H 20 106/76 97 03/12/22 06:43 03/12/22 06:41 130 H 20 116/77 98 03/12/22 06:00 124 H 16 113/74 90 03/12/22 05:32 124 H 18 128/81 94 03/12/22 03:48 124 H 18 94 03/12/22 03:38 127 H 18 103/82 98 03/12/22 02:07 115 H 18 136/80 93 03/12/22 02:05 115 H 20 94 03/12/22 00:42 116 H 18 123/62 97 03/12/22 00:20 36.6 C 125 H 18 123/74 98 Pulse Ox 03/12/22 10:52 03/12/22 09:30 03/12/22 09:03 03/12/22 09:00 03/12/22 08:30 03/12/22 08:00 03/12/22 07:30 03/12/22 07:00 03/12/22 06:43 98 03/12/22 06:41 03/12/22 06:00 03/12/22 05:32 03/12/22 03:48 03/12/22 03:38 03/12/22 02:07 03/12/22 02:05 03/12/22 00:42 03/12/22 00:20 Laboratory Results 03/12/22 08:23 03/12/22 03/12/22 03/12/22 00:44 00:44 08:23 WBC 18.95 H 13.51 H RBC 3.13 L 2.40 L MCV 98.1 99.6 MCH 34.8 H 35.4 H MCHC 35.5 35.6 RDW Std Deviation 59.2 H 60.2 H RDW Coeff of Yasmine 16.6 H 16.7 H Plt Count 52 L 41 L MPV 10.5 H 11.1 H Phosphorus 3.1 Albumin 3.2 L 03/12/22 08:23 WBC RBC MCV MCH MCHC RDW Std Deviation RDW Coeff of Yasmine Plt Count MPV Phosphorus 2.5 Albumin
--- NOTE | 2022-03-12 12:05 | Electrocardiogram Report ---
Test Reason : Blood Pressure : / mmHG Vent. Rate : 120 BPM Atrial Rate : 120 BPM P-R Int : 166 ms QRS Dur : 068 ms QT Int : 314 ms P-R-T Axes : 059 -14 061 degrees QTc Int : 443 ms Sinus tachycardia Low voltage QRS Anteroseptal infarct , age undetermined Abnormal ECG When compared with ECG of 04-OCT-2021 05:45, Anteroseptal infarct is now Present Confirmed by Trevor Prasad ([id number]) on 03/12/2022 12:05:39 PM Referred By: REFERRED SELF Confirmed By:Trevor Prasad
[2022-03-12 12:27] LABS: Appearance Peritoneal Fluid CLOUDY; Color Peritoneal Fluid RED; RBC Peritoneal Fluid (A) 103000 /uL; WBC Peritoneal Fluid (A) 381 /ul (0-300)
[2022-03-12] MEDS: POTASSIUM CHLORIDE / WTR 10 MEQ/100 ML PLCT IV SCH ×4 (12:42→18:15)
--- NOTE | 2022-03-12 12:59 | Ultrasound Report ---
PROCEDURE: Ultrasound-Guided Diagnostic/Therapeutic Paracentesis CLINICAL HISTORY: abd pain/ascites MEDICATIONS: Subcutaneous Lidocaine 2%. PROCEDURE: The procedure itself was explained to the patient carefully. The patient was brought into the IR suite and a time-out was performed. The patient was positioned supine on the table. Preliminar y ultrasound of the abdomen was performed to determine a safe needle entry site. The most appropriat e approach for safe needle entry site was planned and the site for puncture was marked. The right low er quadrant was prepped and draped in the usual sterile fashion. Subcutaneous 2% lidocaine was used f or local anesthesia along the expected needle tract. Under ultrasound-guidance, an 5 Malay Yueh needle-sheath was inserted carefully into the peritoneal space towards the abdominal ascites fluid collection. The needle was removed and the sheath was conn ected to tubing and a vacuum suction device. A total of 2200 cc of serous ascites was aspirated. The sheath was removed and a sterile dressing applied. The patient tolerated the procedure well without i mmediate complications. Sample of ascites was sent for analysis. IMPRESSION: Ultrasound-guided diagnostic/therapeutic paracentesis. Electronically signed by: Carlos Sullivan M.D. 03/12/2022 12:57 PM
[2022-03-12] MEDS ORDERED: GABAPENTIN 600 MG TAB PO ONE (13:30)
[2022-03-12] MEDS ORDERED: GABAPENTIN 1200MG ALCOHOL WITHDRAWAL LOAD PO STA (13:30)
--- NOTE | 2022-03-12 13:37 | Gastrointestinal Consultation ---
Date of Consultation March 12, 2022 Assessment & Plan (1) Alcohol abuse: (2) Decompensated hepatic cirrhosis: (3) Alcoholic hepatitis: Needs permanent alcohol cessation. Appreciate primary hospitalists service managing electrolyte derangement and ETOH withdrawal. Cover with antibiotics for SBP (currently on ceftriaxone which will cover; Cipro 50mg BID is suffient) Will watch for fluid analysis from today's paracentesis. Albumin 25gm TID NAC. Would hold steroids as does not seem to be effective as was on as an OP. Would consider starting Trental after infection is ruled out. Would hold furosemide/spironolactone until infection ruled out. Urine/blood cx and CXR. Liver US. Supervising Physician Co-Signing Physician Notes 37 yo fm with chronic alcoholic hepatitis superimposed on cirrhosis, admitted now with ascites and concerns for persistent alcoholic hepatitis. She has continued to drink despite multiple admission since 10/12 for alcoholic hepatitis treated with steroids. Her bilirubin remains elevated. She is alert and oriented to person/place/time, abd significant for mild ascites. S/p diagnostic paracentesis this am - results pending. Started on albumin and ceftriaxone. Overall she seems to have insight into the importance of not drinking- her na is low this admission in addition to an ast>alt ratio of 2/1 and a high bilirubin. Agree with further plan of care as written. History of Present Illness Reason for Consultation: decompensated cirrhosis Requesting Physician: Dr. Russo Attending Physician: Tyrel Chahal MD History of Present Illness Ms. Kathie Burr Is a 37-year-old female patient of Dr. Edna rivera hx of ETOH pancreatitis, ETOH hepatitis and cirrhosis, asthma, anxiety, depression. She was initially diagnosed with alcoholic hepatitis and cirrhosis in September 2021 and has been on prednisolone nearly continuously since that time. Unfortunately, she had only brief periods of abstention and has been drinking again up to about 6 or 7 90% proof beers per day for the past month. In the meanwhile, she is also been on furosemide 40 2 AM, 20 every afternoon and spironolactone 100 every morning, 50 every evening. A few days ago, she began to feel poorly, weak, dizzy with some mild abdominal pain and some worsening ascites and decided that she needed help with her alcohol problem. For that reason she presented to the emergency department with the intention of asking for inpatient rehab.Today she has had nausea and vomiting. She denies any blood in her stools, black tarry bowel movements, hematemesis and no confusion. Her mother is at the bedside and is very supportive. On arrival,T bili 21. Leukocytosis of 13.5.A paracentesis was completed draining 2.2 L of fluid. Portal vein is patent. Liver with cirrhosis no focal l esions. She is awake alert and oriented w/o tremor or asterix. Most recent EGD was in November 2021, portal hypertensive gastropathy, no varices. Has not undergone colonoscopy. Has liver transplant appt pending (was made this spring when she was in a 2m period of sobriety). Allergies Allergy/AdvReac Type Severity Reaction Status Date / Time banana Allergy Intermediate RASH, Verified 03/12/22 01:11 THROAT SLIGHTLY SWOLLEN Penicillins Allergy Unknown HAPPENED Verified 03/12/22 01:11 A CHILD Home Medications Medication Instructions Recorded Confirmed Type albuterol sulfate 90 mcg/actuation 1 inh INHALATION QID PRN 06/24/20 03/12/22 History aerosol inhaler (ProAir HFA) budesonide-formoterol HFA 160 2 puff INHALATION BID 06/20/21 03/12/22 History mcg-4.5 mcg/actuation aerosol inhaler (Symbicort) dextroamphetamine-amphetamine 5 mg 5 mg PO BID 06/20/21 03/12/22 History tablet (Adderall) ipratropium 20 mcg-albuterol 100 1 puff INHALATION BID 06/20/21 03/12/22 History mcg/actuation mist for inhalation (Combivent Respimat) loratadine 10 mg tablet 10 mg PO QAM 06/20/21 03/12/22 History montelukast 10 mg tablet 10 mg PO HS 06/20/21 03/12/22 History omeprazole 20 mg capsule,delayed 20 mg PO QAM 06/20/21 03/12/22 History release azelastine 137 mcg (0.1 %) nasal 1 spray INTRANASAL BID 10/03/21 03/12/22 History spray aerosol fluticasone propionate 50 2 spray INTRANASAL DAILY 10/03/21 03/12/22 History mcg/actuation nasal spray,suspension multivitamin 1 tab PO QAM 10/03/21 03/12/22 History thiamine HCl (vitamin B1) 100 mg 100 mg PO QAM #30 tab 10/09/21 03/12/22 Rx tablet ondansetron HCl 4 mg tablet 4 mg PO Q8H PRN 10/31/21 03/12/22 History tramadol 50 mg tablet 50 mg PO Q6H PRN 10/31/21 03/12/22 History furosemide 20 mg tablet 20 mg PO PM 11/20/21 03/12/22 History furosemide 40 mg tablet (Lasix) 40 mg PO QAM 11/20/21 03/12/22 History spironolactone 50 mg tablet 50 mg PO PM 11/20/21 03/12/22 History ascorbic acid (vitamin C) 500 mg 500 mg PO QAM 01/31/22 03/12/22 History tablet (Vitamin C) cholecalciferol (vitamin D3) 50 2,000 mcg PO QAM 01/31/22 03/12/22 History mcg (2,000 unit) capsule (Vitamin D3) hydroxyzine HCl 25 mg tablet 1 mg PO TID PRN 01/31/22 03/12/22 History milk thistle 500 mg capsule 0 mg PO QAM 01/31/22 03/12/22 History spironolactone 100 mg tablet 100 mg PO DAILY 01/31/22 03/12/22 History tiotropium bromide 2.5 2 puff INHALATION DAILY 01/31/22 03/12/22 History mcg/actuation mist for inhalation (Spiriva Respimat) hpwqidc-citw-nfrct-oreg-capryl 0 mg PO QAM 01/31/22 03/12/22 History Patient History Medical History ADD (attention deficit disorder) Alcohol abuse Alcoholic hepatitis Alcoholic pancreatitis Allergic sinusitis Anxiety Asthma Depression Fatty liver History of abdominal paracentesis Tobacco use Surgical History History of esophagogastroduodenoscopy (EGD) Family History Grandmother Breast cancer Grandfather Heart disease Social History Smoking Status: Former smoker Tobacco Type: Cigarettes Cigarettes Per Day: 1-2 cigarettes/day; Smoking End Date: 03/08/2022; Second Hand Exposure: No; Do You Dip or Chew Tobacco: No; Tobacco Cessation Education Requested by Patient: No Hx Alcohol Use: Yes Alcohol type: beer Hx Substance Use: No Preferred Language: Scottish 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 Ability: Effective Education Program Manager Required: No Beliefs That Will Affect Care: None marital status: Single Current Living Situation: Significant Other Current Living Situation Comment: Apartment current occupational status: employed How many Children do You have: 0 Other Information That Helps Us Care for You: No Feels Safe at Home: Yes Safety Concerns: Feels Safe At This Time Assistive Devices: None Review of Systems Review of Systems: ROS: Gen: +weakness, No fevers, No weight loss Eyes: + icterus No eye redness, or pain, no recent vision changes Resp: No SOB, no cough Cardio: No palpitations/irregular beats, no chest pain GI: Per HPI otherwise negative : + dark urine, no dysuria Skin: + jaundice Physical Exam Constitutional: well developed, + ill appearing and cooperative Eyes: ++icterus PEARLA, EOMs intact ENMT: external ear and nose normal, oropharynx normal Neck: trachea midline, no thyromegaly Respiratory: normal respiratory effort, lungs clear to auscultation Cardiovascular: RRR, no murmur, no edema Gastrointestinal (Abdomen): Inspection/Auscultation: + abdomen distended and + hypoactive bowel sounds Percussion/Palpation: + ascites (not taunt); abdomen nontender and no guarding Skin: ++ Jaundice Neurologic: PERRL, EOMI, accommodation nl, no face palsy, no dysarthria awake; not confused Psychiatric: A+Ox3, euthymic affect Lymphatic: no cervical or axillary lymphadenopathy Results & Data ([facility]) Vital Signs (Past 12 Hours) Vital Signs Temp Pulse Pulse Resp BP BP Pulse Ox 03/12/22 11:00 37.3 C 128 H 18 109/67 97 03/12/22 10:52 126 H 22 110/83 98 03/12/22 09:30 127 H 22 03/12/22 09:03 127 H 22 110/66 95 03/12/22 09:00 130 H 23 86/73 L 97 03/12/22 08:30 120 H 20 116/78 97 03/12/22 08:00 121 H 22 123/72 03/12/22 07:30 132 H 12 115/69 100 03/12/22 07:00 127 H 20 106/76 97 03/12/22 06:43 03/12/22 06:41 130 H 20 116/77 98 03/12/22 06:00 124 H 16 113/74 90 03/12/22 05:32 124 H 18 128/81 94 03/12/22 03:48 124 H 18 94 03/12/22 03:38 127 H 18 103/82 98 03/12/22 02:07 115 H 18 136/80 93 03/12/22 02:05 115 H 20 94 Pulse Ox 03/12/22 11:00 03/12/22 10:52 03/12/22 09:30 03/12/22 09:03 03/12/22 09:00 03/12/22 08:30 03/12/22 08:00 03/12/22 07:30 03/12/22 07:00 03/12/22 06:43 98 03/12/22 06:41 03/12/22 06:00 03/12/22 05:32 03/12/22 03:48 03/12/22 03:38 03/12/22 02:07 03/12/22 02:05 Laboratory Results WBC 13.5, Hb 8.5, HCT 23.9, platelets 41, sodium was 122 on arrival now 125, K3.2, CL 27, CO2 11, BUN 4, CR 0.69, glucose 116. Diagnostic Findings CTAP 03/12/22: 1. Hepatic steatosis with hepatomegaly, cirrhosis and stigmata of portal venous hypertension including splenomegaly with progressive abdominal pelvic ascites. 2. Wall thickening of the colon may be secondary to portal colopathy versus a nonspecific colitis. 3. No bowel obstruction. 4. Normal appendix. 5. Additional findings as above. Paracentesis 03/12/22: Ultrasound-guided diagnostic/therapeutic paracentesis. (1) Alcoholic hepatitis Ascites presence: with ascites Qualified Code(s): K70.11 - Alcoholic hepatitis with ascites
[2022-03-12 13:57] LABS: Basophils, Fluid 0 %; Eosinophils, Fluid 0 %; Lymphocytes, Fluid 7 %; Mono,Macrophage,Mesothelial 0 %; Neutrophils, Fluid 69 %
[2022-03-12] MEDS ORDERED: DEXTROSE 5% IV ONE ×3 (14:15→22:30)
[2022-03-12] MEDS ORDERED: ACETYLCYSTEINE IV ONE ×3 (14:15→22:30)
--- NOTE | 2022-03-12 14:41 | XRay Report ---
XR chest 1V portable CLINICAL HISTORY: cirrhosis decompensation; r/o pulmonary infection COMPARISON STUDY: Chest radiograph performed earlier today. FINDINGS: No pneumothorax or pleural effusion is noted. Lung volumes are mildly diminished. This is u nchanged. Slight interstitial prominence is unchanged. There is no consolidation to suggest pneumonia . Several old left rib fractures are incidentally noted. Cardiomediastinal silhouette is stable. IMPRESSION: No consolidation to suggest pneumonia. ACT 112: Negative or not required by law. Electronically signed by: Luis Zarate M.D. 03/12/2022 2:40 PM
--- NOTE | 2022-03-12 15:31 | Hospitalist Progress Note ---
Date of Service March 12, 2022 Assessment & Plan (1) Decompensated hepatic cirrhosis: Plan: per Dr. 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 SCDs Re: Thrombocytopenia Full code plan of care discussed with patient in detail and at length all questions answered she is understanding, agreeable, comfortable with the plan of care Admission and Anticipated Discharge Date Admission Date: March 12, 2022 Subjective ff up for alcoholic cirrhosis, hyponatremia, etc seen resting in bed, comfortable sleeping but easily awakened s/p paracentesis states abdominal pain is improving no nausea/vomiting, fever/chills requesting for food no chest pain, dyspnea, palpitations, dizziness no other symptoms Review of Systems Review of Systems: all noted and negative except for above Physical Exam Physical Exam: General- oriented x 3, not in distress, speaks in sentences with no effort or accessory muscle use Head- atraumatic Eyes- PERRL, EOMI, (+) icterus ENT- oropharynx clear Neck- supple, no JVD, no adenopathy, no thyromegaly; carotids +2/2, no bruits appreciated Lungs- clear to auscultation bilaterally, no rales/wheezes Heart- normal rate, regular rhythm; no murmur, no gallop, no rub appreciated Abdomen- normal bowel sounds,mildly distended, soft, mild tenderness, no masses or hepatosplenomegaly Extremities- no pretibial edema, no calf tenderness; peripheral pulses intact Neuro- alert, oriented x 3; CN 2-12 grossly intact; motor 5/5 bilaterally;sensation 100% on all extremities; no other gross focal neurologic deficits Skin- warm & dry Results & Data Results & Data ([facility]) Vital Signs (Past 12 Hours) Vital Signs Temp Pulse Pulse Resp BP BP Pulse Ox 03/12/22 11:15 127 H 03/12/22 11:00 37.3 C 128 H 18 109/67 97 03/12/22 10:52 126 H 22 110/83 98 03/12/22 09:30 127 H 22 03/12/22 09:03 127 H 22 110/66 95 03/12/22 09:00 130 H 23 86/73 L 97 03/12/22 08:30 120 H 20 116/78 97 03/12/22 08:00 121 H 22 123/72 03/12/22 07:30 132 H 12 115/69 100 03/12/22 07:00 127 H 20 106/76 97 03/12/22 06:43 03/12/22 06:41 130 H 20 116/77 98 03/12/22 06:00 124 H 16 113/74 90 03/12/22 05:32 124 H 18 128/81 94 03/12/22 03:48 124 H 18 94 03/12/22 03:38 127 H 18 103/82 98 Pulse Ox 03/12/22 11:15 03/12/22 11:00 03/12/22 10:52 03/12/22 09:30 03/12/22 09:03 03/12/22 09:00 03/12/22 08:30 03/12/22 08:00 03/12/22 07:30 03/12/22 07:00 03/12/22 06:43 98 03/12/22 06:41 03/12/22 06:00 03/12/22 05:32 03/12/22 03:48 03/12/22 03:38 Laboratory Results all noted and reviewed including below
[2022-03-12] MEDS: ondansetron HCL 6 MG in DEXTROSE 5% 50 ML IV PRN (16:11)
[2022-03-12] MEDS: LORazepam 1 MG in SYRINGE 0.5 ML IV PRN (20:45)
[2022-03-12] MEDS: MONTELUKAST SODIUM 10 MG TABLET PO SCH (20:45)
[2022-03-12] MEDS: GABAPENTIN 600 MG TAB PO SCH (20:46)
[2022-03-12] MEDS: guaiFENesin SUGAR FREE 200 MG/10 ML UDC PO PRN (21:27)
[2022-03-12] MEDS: MAGNESIUM SULFATE / D5W 1 GM/100 ML BAG IV SCH ×2 (21:55→23:51)
--- NOTE | 2022-03-12 23:26 | Emergency Department Note ---
History of Present Illness General Chief complaint: Illness Stated complaint: DON'T FEEL WELL,LIVER PROBLEMS Time Seen by Provider: 03/12/22 00:44 History of Present Illness This is a 37-year-old female presenting to the emergency department reporting "I don't feel well". Patient is an alcoholic who drinks heavily on a regular basis. She states that she is worried about her health and would like to talk about rehab services. She states that her last drink was earlier today where she states that she had 3 beers that were 9% alcohol each. The patient is significantly jaundiced on arrival and also complains of abdominal bloating, which has happened in the past. She does not report distinct fever or chills. She has decreased appetite but is drinking alcohol without difficulty. She denies chance of . Home Medications Medication Instructions Recorded Confirmed Type albuterol sulfate 90 mcg/actuation 1 inh INHALATION QID PRN 06/24/20 03/12/22 History aerosol inhaler (ProAir HFA) budesonide-formoterol HFA 160 2 puff INHALATION BID 06/20/21 03/12/22 History mcg-4.5 mcg/actuation aerosol inhaler (Symbicort) dextroamphetamine-amphetamine 5 mg 5 mg PO BID 06/20/21 03/12/22 History tablet (Adderall) ipratropium 20 mcg-albuterol 100 1 puff INHALATION BID 06/20/21 03/12/22 History mcg/actuation mist for inhalation (Combivent Respimat) loratadine 10 mg tablet 10 mg PO QAM 06/20/21 03/12/22 History montelukast 10 mg tablet 10 mg PO HS 06/20/21 03/12/22 History omeprazole 20 mg capsule,delayed 20 mg PO QAM 06/20/21 03/12/22 History release azelastine 137 mcg (0.1 %) nasal 1 spray INTRANASAL BID 10/03/21 03/12/22 History spray aerosol fluticasone propionate 50 2 spray INTRANASAL DAILY 10/03/21 03/12/22 History mcg/actuation nasal spray,suspension multivitamin 1 tab PO QAM 10/03/21 03/12/22 History thiamine HCl (vitamin B1) 100 mg 100 mg PO QAM #30 tab 10/09/21 03/12/22 Rx tablet ondansetron HCl 4 mg tablet 4 mg PO Q8H PRN 10/31/21 03/12/22 History tramadol 50 mg tablet 50 mg PO Q6H PRN 10/31/21 03/12/22 History furosemide 20 mg tablet 20 mg PO PM 11/20/21 03/12/22 History furosemide 40 mg tablet (Lasix) 40 mg PO QAM 11/20/21 03/12/22 History spironolactone 50 mg tablet 50 mg PO PM 11/20/21 03/12/22 History ascorbic acid (vitamin C) 500 mg 500 mg PO QAM 01/31/22 03/12/22 History tablet (Vitamin C) cholecalciferol (vitamin D3) 50 2,000 mcg PO QAM 01/31/22 03/12/22 History mcg (2,000 unit) capsule (Vitamin D3) hydroxyzine HCl 25 mg tablet 1 mg PO TID PRN 01/31/22 03/12/22 History milk thistle 500 mg capsule 0 mg PO QAM 01/31/22 03/12/22 History spironolactone 100 mg tablet 100 mg PO DAILY 01/31/22 03/12/22 History tiotropium bromide 2.5 2 puff INHALATION DAILY 01/31/22 03/12/22 History mcg/actuation mist for inhalation (Spiriva Respimat) fahpuze-bcax-kgiwf-oreg-capryl 0 mg PO QAM 01/31/22 03/12/22 History Allergies Allergy/AdvReac Type Severity Reaction Status Date / Time banana Allergy Intermediate RASH, Verified 03/12/22 01:11 THROAT SLIGHTLY SWOLLEN Penicillins Allergy Unknown HAPPENED Verified 03/12/22 01:11 A CHILD Past Med/Surg History Medical History ADD (attention deficit disorder) Alcohol abuse Alcoholic hepatitis Alcoholic pancreatitis Allergic sinusitis Anxiety Asthma Depression Fatty liver History of abdominal paracentesis Tobacco use Surgical History History of esophagogastroduodenoscopy (EGD) Family History Grandmother Breast cancer Grandfather Heart disease Social History Smoking Status: Former smoker Tobacco Type: Cigarettes Cigarettes Per Day: 1-2 cigarettes/day; Smoking End Date: 03/08/2022; Second Hand Exposure: No; Do You Dip or Chew Tobacco: No; Tobacco Cessation Education Requested by Patient: No Hx Alcohol Use: Yes Alcohol type: beer Hx Substance Use: No Preferred Language: Iranian 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 Ability: Effective 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 Beliefs That Will Affect Care: None marital status: Single Current Living Situation: Significant Other Current Living Situation Comment: Apartment current occupational status: employed How many Children do You have: 0 Other Information That Helps Us Care for You: No Feels Safe at Home: Yes Safety Concerns: Feels Safe At This Time Assistive Devices: None Review of Systems A total of 10 systems reviewed and were otherwise negative Physical Exam Vital Signs Vital Signs - 24 hr 03/12/22 00:20 03/12/22 00:42 03/12/22 02:05 Temperature 36.6 C Temperature Source Temporal Artery Scan Pulse Rate 125 H 115 H Pulse Rate [Finger] 116 H Pulse Rate from SpO2 Sensor 112 H Respiratory Rate 18 18 20 Respiratory Effort / Characteristics Respiratory Depth Normal Respiratory Pattern Blood Pressure 123/74 Blood Pressure [Left Arm] 123/62 Blood Pressure Mean 90 Blood Pressure Mean [Left Arm] 82 Blood Pressure Position [Left Arm] Lying Pulse Oximetry 98 97 94 Oxygen Delivery Method Room Air Room Air Sepsis Recent Fever Within 48 Hours No Sepsis New/Unexplained Change in Mental Status N/A Sepsis Action Taken by Nursing No Action Required 03/12/22 02:07 03/12/22 03:38 03/12/22 03:48 Temperature Temperature Source Pulse Rate 124 H Pulse Rate [Finger] 115 H 127 H Pulse Rate from SpO2 Sensor Respiratory Rate 18 18 18 Respiratory Effort / Characteristics Non-Labored Spontaneous Respiratory Depth Normal Respiratory Pattern Regular Blood Pressure Blood Pressure [Left Arm] 136/80 103/82 Blood Pressure Mean Blood Pressure Mean [Left Arm] 98 89 Blood Pressure Position [Left Arm] Pulse Oximetry 93 98 94 Oxygen Delivery Method Room Air Room Air Room Air Sepsis Recent Fever Within 48 Hours Sepsis New/Unexplained Change in Mental Status Sepsis Action Taken by Nursing VITALS: Vitals are noted on the nurse's note and reviewed by myself. Vital signs with tachycardia GENERAL: Jaundiced appearing white female who is intoxicated and ill-appearing HEAD: Normocephalic atraumatic. EYES: Pupils equal round and reactive to light and accommodation. Conjunctivae with notable icterus NOSE: Patent, turbinates without inflammation or discharge. MOUTH: Mucous membranes moist. Tonsils are not enlarged. Pharynx without erythema, blood, or exudate. Uvula midline. Airway patent. NECK: Supple without nuchal rigidity. No lymphadenopathy. No thyromegaly. Cervical spine is nontender. HEART: Regular rate and rhythm without murmurs gallops or rubs. LUNGS: Clear to auscultation bilaterally without wheezes, rales or rhonchi. No retractions or accessory muscle use. ABDOMEN: Positive normal bowel sounds x 4. Soft with significant distention c onsistent with ascitic swelling MUSCULOSKELETAL: No muscle atrophy, erythema, or edema noted. Full range of motion in all extremities. NEURO: Patient was alert and oriented to person place and time. CN II through XII grossly intact. Course Administered Medications Amphetamine/Dextroamphetamine (Amphetamine Asp/Sulf/Dextramph 5 Mg Tab) 5 mg PO BID JUAN Stop: 03/26/22 08:59 Last Admin: 03/12/22 20:46 Dose: Not Given Documented by: [id number] Admin: 03/12/22 11:19 Dose: Not Given Documented by: [id number] Azelastine HCl (Azelastine Hcl 0.1% Nasal 200 Sprays/27,400 Mcg Btl) 1 sprays NA BID JUAN Stop: 04/11/22 08:59 Last Admin: 03/12/22 20:46 Dose: 1 sprays Documented by: [id number] Admin: 03/12/22 09:01 Dose: 1 sprays Documented by: [id number] Fluticasone Propionate (Fluticasone Propionate Na Spr 16 Gm Btl) 2 sprays NA DAILY JUAN Stop: 04/11/22 08:59 Last Admin: 03/12/22 09:00 Dose: 2 sprays Documented by: [id number] Fluticasone/Vilanterol (Fluticasone/Vilanterol 200/25mcg 14 Puffs/Inhaler) 1 puffs INH DAILY JUAN; Protocol Stop: 04/11/22 08:59 Last Admin: 03/12/22 08:59 Dose: 1 puffs Documented by: [id number] Folic Acid (Folic Acid 1 Mg Tab) 1 mg PO QAM JUAN Stop: 04/11/22 08:59 Last Admin: 03/12/22 11:19 Dose: Not Given Documented by: [id number] Gabapentin (Gabapentin 600 Mg Tab) 600 mg PO Q6H JUAN Stop: 03/13/22 02:01 Last Admin: 03/12/22 20:46 Dose: 600 mg Documented by: [id number] Guaifenesin (Guaifenesin Sugar Free 200 Mg/10 Ml Udc) 200 mg PO Q6H PRN PRN Reason: Cough Stop: 04/11/22 20:07 Last Admin: 03/12/22 21:27 Dose: 200 mg Documented by: [id number] Albumin Human (Albumin 25% 100 Ml) 25 gm in 100 mls @ 50 mls/hr IV Q8H [facility] Stop: 03/15/22 09:59 Last Infusion: 03/12/22 19:32 Dose: 0 mls/hr Documented by: [id number] Admin: 03/12/22 17:39 Dose: 50 mls/hr Documented by: [id number] Infusion: 03/12/22 13:45 Dose: 0 mls/hr Documented by: [id number] Admin: 03/12/22 11:45 Dose: 50 mls/hr Documented by: [id number] Lorazepam 1 mg/ Syringe 1 mls @ 2 mls/min IV UD PRN; Protocol PRN Reason: EtOH Withdrawal AWSS Score 6,7 Stop: 04/11/22 06:38 Last Admin: 03/12/22 20:45 Dose: 2 mls/min Documented by: [id number] Lorazepam 3 mg/ Syringe 3 mls @ 2 mls/min IV ONCE PRN; Protocol PRN Reason: EtOH Withdrawal AWSS Score >=1 Stop: 04/11/22 06:38 Last Admin: 03/12/22 23:12 Dose: 2 mls/min Documented by: [id number] Ondansetron HCl 6 mg/ Dextrose 53 mls @ 212 mls/hr IV Q6H PRN PRN Reason: Nausea And Vomiting Stop: 04/11/22 15:32 Last Infusion: 03/12/22 16:26 Dose: 0 mls/hr Documented by: [id number] Admin: 03/12/22 16:11 Dose: 212 mls/hr Documented by: [id number] Magnesium Sulfate/Dextrose (Magnesium Sulfate / D5w) 1 gm in 100 mls @ 50 mls/hr IV Q2H JUAN Stop: 03/13/22 00:59 Last Admin: 03/12/22 21:55 Dose: 50 mls/hr Documented by: [id number] Ipratropium [place] (Ipratropium Hfa Inhaler (Combivent Respimat P&T Subs)) 1 puffs INH BIDR [facility] Stop: 04/11/22 07:04 Last Admin: 03/12/22 20:41 Dose: 1 puffs Documented by: [id number] Admin: 03/12/22 09:21 Dose: Not Given Documented by: [id number] Loratadine (Loratadine 10 Mg Tab) 10 mg PO QAM [facility] Stop: 04/11/22 08:59 Last Admin: 03/12/22 11:19 Dose: Not Given Documented by: [id number] Montelukast Sodium (Montelukast Sodium 10 Mg Tablet) 10 mg PO [facility] Stop: 04/11/22 20:59 Last Admin: 03/12/22 20:45 Dose: 10 mg Documented by: [id number] Multivitamins (Multivitamin Tab) 1 tab PO [facility] Stop: 04/11/22 08:59 Last Admin: 03/12/22 11:20 Dose: Not Given Documented by: [id number] Pantoprazole Sodium (Pantoprazole 40 Mg Tab) 40 mg PO [facility]; Protocol Stop: 04/11/22 08:59 Last Admin: 03/12/22 11:20 Dose: Not Given Documented by: [id number] Umeclidinium [place] (Umeclidinium [place] 62.5mcg/Blister 7 Puffs/Inhaler) 1 puffs INH DAILY [facility]; Protocol Stop: 04/11/22 08:59 Last Admin: 03/12/22 09:00 Dose: 1 puffs Documented by: [id number] Discontinued Medications Albuterol (Albuterol Hfa 8 Gm Inhaler (Combivent Respimat P&T Subs)) 1 puffs INH BIDR [facility] Stop: 04/11/22 07:04 Last Admin: 03/12/22 19:25 Dose: Not Given Documented by: [id number] Admin: 03/12/22 09:21 Dose: Not Given Documented by: [id number] Gabapentin (Gabapentin 600 Mg Tab) 1,200 mg PO NOW ONE Stop: 03/12/22 13:31 Last Admin: 03/12/22 14:20 Dose: 1,200 mg Documented by: [id number] Lorazepam 1 mg/ Syringe 1 mls @ 2 mls/min IV NOW STA Stop: 03/12/22 00:54 Last Admin: 03/12/22 02:16 Dose: 2 mls/min Documented by: [id number] Thiamine HCl 100 mg/ Syringe 10 mls @ 2 mls/min IV NOW STA Stop: 03/12/22 03:00 Last Admin: 03/12/22 03:27 Dose: 2 mls/min Documented by: [id number] Sodium Chloride (Nss) 500 mls @ 250 mls/hr IV .Q2H ONE Stop: 03/12/22 04:57 Last Infusion: 03/12/22 05:37 Dose: 0 mls/hr Documented by: [id number] Admin: 03/12/22 03:27 Dose: 250 mls/hr Documented by: [id number] Albumin Human (Albumin 25% 100 Ml) 25 gm in 100 mls @ 50 mls/hr IV ONE ONE Stop: 03/12/22 05:48 Last Infusion: 03/12/22 07:32 Dose: 0 mls/hr Documented by: [id number] Admin: 03/12/22 05:34 Dose: 50 mls/hr Documented by: [id number] Ceftriaxone Sodium (Rocephin) 1,000 mg in 50 mls @ 100 mls/hr IV NOW STA Stop: 03/12/22 04:18 Last Infusion: 03/12/22 06:26 Dose: 0 mls/hr Documented by: [id number] Admin: 03/12/22 05:49 Dose: 100 mls/hr Documented by: [id number] Promethazine HCl 12.5 mg/ (Sodium Chloride) 50.5 mls @ 202 mls/hr IV NOW STA Stop: 03/12/22 04:43 Last Infusion: 03/12/22 04:58 Dose: 0 mls/hr Documented by: [id number] Admin: 03/12/22 04:42 Dose: 202 mls/hr Documented by: [id number] Potassium Chloride ([place] / Wtr) 10 meq in 100 mls @ 100 mls/hr IV Q1H JUAN; Protocol Stop: 03/12/22 15:59 Last Infusion: 03/12/22 20:21 Dose: 0 mls/hr Documented by: [id number] Admin: 03/12/22 18:15 Dose: 50 mls/hr Documented by: [id number] Infusion: 03/12/22 18:12 Dose: 50 mls/hr Documented by: [id number] Admin: 03/12/22 16:12 Dose: 50 mls/hr Documented by: [id number] Infusion: 03/12/22 16:12 Dose: 50 mls/hr Documented by: [id number] Admin: 03/12/22 14:18 Dose: 50 mls/hr Documented by: [id number] Infusion: 03/12/22 14:09 Dose: 50 mls/hr Documented by: [id number] Infusion: 03/12/22 13:15 Dose: 50 mls/hr Documented by: [id number] Admin: 03/12/22 12:42 Dose: 100 mls/hr Documented by: [id number] Acetylcysteine 10,470 mg/ (Dextrose) 252.35 mls @ 252.35 mls/hr IV NOW ONE; Protocol Stop: 03/12/22 15:14 Last Infusion: 03/12/22 16:14 Dose: 0 mls/hr Documented by: [id number] Admin: 03/12/22 15:13 Dose: 252 mls/hr Documented by: [id number] Acetylcysteine 3,490 mg/ (Dextrose) 517.45 mls @ 129.363 mls/hr IV ONE ONE; Protocol Stop: 03/12/22 22:29 Last Admin: 03/12/22 19:25 Dose: 129.4 mls/hr Documented by: [id number] Ioversol (Optiray 320 100ml) 95 ml IV ONCE ONE Stop: 03/12/22 08:25 Last Admin: 03/12/22 08:17 Dose: 95 ml Documented by: [id number] Lorazepam (Lorazepam 2 Mg/1 Ml Vial) Confirm Administered Dose 1 mg .ROUTE .STK- MED ONE Stop: 03/12/22 02:16 Last Admin: 03/12/22 02:17 Dose: Not Given Documented by: [id number] Metoclopramide HCl (Metoclopramide Hcl Inj 5 Mg/Ml 2 Ml Vial) 5 mg IV ONE ONE Stop: 03/12/22 06:53 Last Admin: 03/12/22 07:34 Dose: 5 mg Documented by: [id number] Potassium Chloride (Potassium Chloride Crtab 20 Meq Tabcr) 40 meq PO NOW STA Stop: 03/12/22 02:59 Last Admin: 03/12/22 03:27 Dose: 40 meq Documented by: [id number] Potassium Chloride (Potassium Chloride Crtab 20 Meq Tabcr) 40 meq PO ONE ONE Stop: 03/12/22 06:40 Last Admin: 03/12/22 09:03 Dose: Not Given Documented by: [id number] Potassium Chloride (Potassium Chloride 10 Meq Tabcr) Confirm Administered Dose 40 meq PO .STK-MED ONE Stop: 03/12/22 08:57 Last Admin: 03/12/22 11:19 Dose: Not Given Documented by: [id number] Medical Decision Making Differential Diagnosis Differential diagnosis: Etiologies such as acute on chronic liver failure, alcohol abuse,sepsis, UTI, pneumonia, bacteremia, metabolic process, electrolyte abnormalities, cardiac sources, intracerebral event, intra-abdominal process, toxicological process, neurologic process, as well as others were entertained. Laboratory Data Result diagrams: 03/12/22 08:23 03/12/22 18:04 Lab Results 03/12/22 03/12/22 03/12/22 Range/Units 00:44 00:44 00:44 WBC 18.95 H (4.8-10.8) K/uL RBC 3.13 L (4.2-5.4) M/uL Hgb 10.9 L (12.0-16.0) g/dL Hct 30.7 L (37-47) % MCV 98.1 (80-100) fL MCH 34.8 H (25-34) pg MCHC 35.5 (32-36) g/dL RDW Std Deviation 59.2 H (36.4-46.3) fL RDW Coeff of Yasmine 16.6 H (11.5-14.5) % Plt Count 52 L (130-400) K/uL MPV 10.5 H (7.4-10.4) fL Immature Gran % (Auto) 0.4 % Neut % (Auto) 88.2 % Lymph % (Auto) 5.0 % [place] % (Auto) 5.8 % Eos % (Auto) 0.5 % Baso % (Auto) 0.1 % Neut # (Auto) 16.71 H (1.4-6.5) K/uL Lymph # (Auto) 0.95 L (1.2-3.4) K/uL [place] # (Auto) 1.10 H (0.11-0.59) K/uL Eos # (Auto) 0.09 (0-0.5) K/uL Baso # (Auto) 0.02 (0-0.2) K/uL Immature Gran # (Auto) 0.08 H (0.00-0.02) K/uL Platelet Estimate Decreased L (Normal) PT (9.0-12.0) Seconds INR (0.9-1.1) APTT (21.0-31.0) Seconds PTT Ratio Sodium 124 L (136-145) mmol/L Potassium 2.9 L (3.5-5.1) mmol/L Chloride 81 L (98-107) mmol/L Carbon Dioxide 29 (21-32) mmol/L Anion Gap 14 H (3-11) BUN 3 L (6-23) mg/dl Creatinine 0.70 (0.6-1.2) mg/dl Est Cr Clr Drug Dosing 102.9 ml/min Est GFR ( Amer) 130.1 ml/min Est GFR (Non-Af Amer) 112.3 ml/min BUN/Creatinine Ratio 4.3 L (10-20) Glucose 135 H (70-99(Fasting)) mg/dl Osmolality (280-300) mOsm/kg Calcium 7.6 L (8.5-10.1) mg/dl Phosphorus 3.1 (2.5-4.9) mg/dl Magnesium 2.1 (1.7-2.4) mg/dl Total Bilirubin 21.2 H (0.2-1.0) mg/dl AST 94 H (13-39) U/L ALT 29 (7-52) U/L Alkaline Phosphatase 490 H (34-104) U/L Ammonia Troponin I High Sens 12.7 (0-14) pg/ml Total Protein 7.0 (6.0-8.3) gm/dl Albumin 3.2 L (3.4-5.0) gm/dl Globulin 3.8 (2.5-4.0) gm/dl Albumin/Globulin Ratio 0.8 L (0.9-2) Amylase TNP Lipase TNP Procalcitonin (0-0.5) ng/ml TSH 4.070 (0.300-4.500) uIu/ml HCG, Qual (Negative) Ethyl Alcohol mg/dL (<10.0) mg/dl SARS-CoV-2, RNA, NAAT (NEGATIVE) 03/12/22 03/12/22 03/12/22 Range/Units 00:44 00:44 00:44 WBC (4.8-10.8) K/uL RBC (4.2-5.4) M/uL Hgb (12.0-16.0) g/dL Hct (37-47) % MCV (80-100) fL MCH (25-34) pg MCHC (32-36) g/dL RDW Std Deviation (36.4-46.3) fL RDW Coeff of Yasmine (11.5-14.5) % Plt Count (130-400) K/uL MPV (7.4-10.4) fL Immature Gran % (Auto) % Neut % (Auto) % Lymph % (Auto) % [place] % (Auto) % Eos % (Auto) % Baso % (Auto) % Neut # (Auto) (1.4-6.5) K/uL Lymph # (Auto) (1.2-3.4) K/uL [place] # (Auto) (0.11-0.59) K/uL Eos # (Auto) (0-0.5) K/uL Baso # (Auto) (0-0.2) K/uL Immature Gran # (Auto) (0.00-0.02) K/uL Platelet Estimate (Normal) PT 14.1 H (9.0-12.0) Seconds INR 1.3 H (0.9-1.1) APTT 34.2 H (21.0-31.0) Seconds PTT Ratio 1.2 Sodium (136-145) mmol/L Potassium (3.5-5.1) mmol/L Chloride (98-107) mmol/L Carbon Dioxide (21-32) mmol/L Anion Gap (3-11) BUN (6-23) mg/dl Creatinine (0.6-1.2) mg/dl Est Cr Clr Drug Dosing ml/min Est GFR ( Amer) ml/min Est GFR (Non-Af Amer) ml/min BUN/Creatinine Ratio (10-20) Glucose (70-99(Fasting)) mg/dl Osmolality (280-300) mOsm/kg Calcium (8.5-10.1) mg/dl Phosphorus (2.5-4.9) mg/dl Magnesium (1.7-2.4) mg/dl Total Bilirubin (0.2-1.0) mg/dl AST (13-39) U/L ALT (7-52) U/L Alkaline Phosphatase (34-104) U/L Ammonia Troponin I High Sens (0-14) pg/ml Total Protein (6.0-8.3) gm/dl Albumin (3.4-5.0) gm/dl Globulin (2.5-4.0) gm/dl Albumin/Globulin Ratio (0.9-2) Amylase Lipase Procalcitonin 0.40 (0-0.5) ng/ml TSH (0.300-4.500) uIu/ml HCG, Qual Negative (Negative) Ethyl Alcohol mg/dL (<10.0) mg/dl SARS-CoV-2, RNA, NAAT (NEGATIVE) 03/12/22 03/12/22 03/12/22 Range/Units 00:44 00:57 02:10 WBC (4.8-10.8) K/uL RBC (4.2-5.4) M/uL Hgb (12.0-16.0) g/dL Hct (37-47) % MCV (80-100) fL MCH (25-34) pg MCHC (32-36) g/dL RDW Std Deviation (36.4-46.3) fL RDW Coeff of Yasmine (11.5-14.5) % Plt Count (130-400) K/uL MPV (7.4-10.4) fL Immature Gran % (Auto) % Neut % (Auto) % Lymph % (Auto) % [place] % (Auto) % Eos % (Auto) % Baso % (Auto) % Neut # (Auto) (1.4-6.5) K/uL Lymph # (Auto) (1.2-3.4) K/uL [place] # (Auto) (0.11-0.59) K/uL Eos # (Auto) (0-0.5) K/uL Baso # (Auto) (0-0.2) K/uL Immature Gran # (Auto) (0.00-0.02) K/uL Platelet Estimate (Normal) PT (9.0-12.0) Seconds INR (0.9-1.1) APTT (21.0-31.0) Seconds PTT Ratio Sodium (136-145) mmol/L Potassium (3.5-5.1) mmol/L Chloride (98-107) mmol/L Carbon Dioxide (21-32) mmol/L Anion Gap (3-11) BUN (6-23) mg/dl Creatinine (0.6-1.2) mg/dl Est Cr Clr Drug Dosing ml/min Est GFR ( Amer) ml/min Est GFR (Non-Af Amer) ml/min BUN/Creatinine Ratio (10-20) Glucose (70-99(Fasting)) mg/dl Osmolality 362 H* (280-300) mOsm/kg Calcium (8.5-10.1) mg/dl Phosphorus (2.5-4.9) mg/dl Magnesium (1.7-2.4) mg/dl Total Bilirubin (0.2-1.0) mg/dl AST (13-39) U/L ALT (7-52) U/L Alkaline Phosphatase (34-104) U/L Ammonia TNP Troponin I High Sens (0-14) pg/ml Total Protein (6.0-8.3) gm/dl Albumin (3.4-5.0) gm/dl Globulin (2.5-4.0) gm/dl Albumin/Globulin Ratio (0.9-2) Amylase Lipase Procalcitonin (0-0.5) ng/ml TSH (0.300-4.500) uIu/ml HCG, Qual (Negative) Ethyl Alcohol mg/dL (<10.0) mg/dl SARS-CoV-2, RNA, NAAT NEGATIVE (NEGATIVE) 03/12/22 Range/Units 02:10 WBC (4.8-10.8) K/uL RBC (4.2-5.4) M/uL Hgb (12.0-16.0) g/dL Hct (37-47) % MCV (80-100) fL MCH (25-34) pg MCHC (32-36) g/dL RDW Std Deviation (36.4-46.3) fL RDW Coeff of Yasmine (11.5-14.5) % Plt Count (130-400) K/uL MPV (7.4-10.4) fL Immature Gran % (Auto) % Neut % (Auto) % Lymph % (Auto) % [place] % (Auto) % Eos % (Auto) % Baso % (Auto) % Neut # (Auto) (1.4-6.5) K/uL Lymph # (Auto) (1.2-3.4) K/uL [place] # (Auto) (0.11-0.59) K/uL Eos # (Auto) (0-0.5) K/uL Baso # (Auto) (0-0.2) K/uL Immature Gran # (Auto) (0.00-0.02) K/uL Platelet Estimate (Normal) PT (9.0-12.0) Seconds INR (0.9-1.1) APTT (21.0-31.0) Seconds PTT Ratio Sodium (136-145) mmol/L Potassium (3.5-5.1) mmol/L Chloride (98-107) mmol/L Carbon Dioxide (21-32) mmol/L Anion Gap (3-11) BUN (6-23) mg/dl Creatinine (0.6-1.2) mg/dl Est Cr Clr Drug Dosing ml/min Est GFR ( Amer) ml/min Est GFR (Non-Af Amer) ml/min BUN/Creatinine Ratio (10-20) Glucose (70-99(Fasting)) mg/dl Osmolality (280-300) mOsm/kg Calcium (8.5-10.1) mg/dl Phosphorus (2.5-4.9) mg/dl Magnesium (1.7-2.4) mg/dl Total Bilirubin (0.2-1.0) mg/dl AST (13-39) U/L ALT (7-52) U/L Alkaline Phosphatase (34-104) U/L Ammonia Troponin I High Sens (0-14) pg/ml Total Protein (6.0-8.3) gm/dl Albumin (3.4-5.0) gm/dl Globulin (2.5-4.0) gm/dl Albumin/Globulin Ratio (0.9-2) Amylase Lipase Procalcitonin (0-0.5) ng/ml TSH (0.300-4.500) uIu/ml HCG, Qual (Negative) Ethyl Alcohol mg/dL 411.7 H (<10.0) mg/dl SARS-CoV-2, RNA, NAAT (NEGATIVE) MDM Narrative Physical exam and history were performed. Nursing notes, EMR, and Medication List were personally reviewed. Patient appears to have significant medical issues related to her liver. I did review her medical chart at length, and her status has worsened significantly over the past 18 months. She is very jaundiced on exam, tachycardic, and ap pears intoxicated. IV access was established and labs were obtained. She was given a banana bag and Ativan. Her abdomen is consistent with ascites. The patient's blood work is as above and was reviewed. She does have a slightly elevated white count of 13,000. Hemoglobin is 10.9. She is BUN and creatinine are preserved. INR is 1.3. AST is 94, ALT normal at 29, alk phos is 490. Troponin x1 is negative. Because of her bilirubin of 21, several labs are not being able to be resulted including ammonia, lipase, and amylase. She is not . Alcohol is over 400. Overall the patient does not appear well for discharge home. She appears quite ill. Her calculated meld score is 29 which places her at nearly a 20% 3-month mortality. I did reach out to the [employer] [facility] team who agreed to evaluate the patient here in the ER. Please see their dictation for further patient course, plan, disposition. The chart was completed utilizing [employer] Voice Recognition Software. Grammatical errors, random word insertions, pronoun errors, and incomplete sentences are an occasional consequence of this system due to software limitations, ambient noise, and hardware issues. Any formal questions or concerns about the content, text, or information contained within the body of this dictation should be directly addressed to the provider for clarification. . Impression & Plan Acute on chronic alcoholic liver disease, Alcoholic hepatitis, Jaundice, Abnormal blood electrolyte level, Alcohol intoxication Discharge Plan Visit Data Chief Complaint: Illness Stated Complaint: DON'T FEEL WELL,LIVER PROBLEMS ED Provider: Alf Tovar ED Midlevel Provider: Leonel Swanson Discharge Problem: Acute on chronic alcoholic liver disease, Alcoholic hepatitis, Jaundice, Abnormal blood electrolyte level, Alcohol intoxication Patient Disposition: Admitted As Inpatient Discharge Instructions Interventions: ED Discharge Assessment Last Done: 03/12/22 12:21
[2022-03-13] MEDS ORDERED: ACETAMINOPHEN 65 ML IV SCH
[2022-03-13] MEDS: ALBUMIN 25% 100 mL 25 GM/100 ML VIAL IV SCH ×5 (00:32→23:25)
[2022-03-13 02:02] LABS: Alanine Aminotransferase 20 U/L (7-52); Albumin Globulin Ratio 1.4 (0.9-2); Albumin Level 3.3 gm/dl (3.4-5.0); Anion Gap 13 (3-11); Aspartate Aminotransferase 76 U/L (13-39); Bilirubin,Total 23.7 mg/dl (0.2-1.0); Calcium 6.8 mg/dl (8.5-10.1); Carbon Dioxide 24 mmol/L (21-32); Chloride 84 mmol/L (98-107); Globulin 2.4 gm/dl (2.5-4.0); Glucose 200 mg/dl (70-99(Fasting)); Potassium 2.7 mmol/L (3.5-5.1); Sodium 121 mmol/L (136-145); Total Protein 5.7 gm/dl (6.0-8.3)
[2022-03-13] MEDS: GABAPENTIN 600 MG TAB PO SCH ×2 (02:24→05:03)
[2022-03-13] MEDS: LORazepam 2 MG in SYRINGE 1 ML IV PRN ×3 (05:01→19:22)
[2022-03-13] MEDS: cefTRIAXone SODIUM 1,000 MG in DEXTROSE 5% 50 ML IV SCH (05:04)
[2022-03-13 05:49] LABS: Appearance Urine Clear (Clear); Blood Urine Negative (Negative); Color Urine Dark Yellow; Epithelial Cell Urine Auto >30 /lpf (0-5); Glucose Urine UA Negative (Negative); Ketones Urine Trace (Negative); Leukocyte Esterase Urine Trace (Negative); Nitrite Urine Positive (Negative); Protein Urine Negative (Negative); Specific Gravity Urine 1.018 (1.000-1.030); Urobilinogen Urine Negative (Negative)
[2022-03-13 06:10] LABS: Amphetamines+Metham, Urine Neg (Neg); Barbiturates, Urine Neg (Neg); Cocaine, Urine Neg (Neg); MDMA (Ecstacy), Urine Neg (Neg); Methadone, Urine Neg (Neg); Opiate, Urine Neg (Neg); Phencyclidine, Urine Neg (Neg)
[2022-03-13 06:28] LABS: Bilirubin Urine 3+ (Negative)
[2022-03-13 06:29] LABS: RBC Urine Automated 0-4 /hpf (0-4)
[2022-03-13 06:30] LABS: Bacteria Urine Automated 1+ (Negative); Mucus Urine Present (None Prsent)
[2022-03-13 06:31] LABS: Benzodiazepine, Urine Neg (Neg)
[2022-03-13] MEDS: LORazepam 1 MG in SYRINGE 0.5 ML IV PRN ×2 (06:50→16:32)
[2022-03-13] MEDS: Ipratropium HFA Inhaler (Combivent Respimat P&T Subs) INH SCH ×2 (06:57→19:22)
[2022-03-13] MEDS: LEVALBUTEROL TARTRATE 15 GM HFA.AER.AD INH SCH ×2 (07:00→19:21)
[2022-03-13 07:16] LABS: Hematocrit (blood only) 22.8 % (37-47); Mean Corpuscular Hemoglobin 35.6 pg (25-34); Mean Corpuscular Hgb Conc 35.1 g/dL (32-36); Mean Corpuscular Volume 101.3 fL (80-100); RDW Coefficient of Variation 16.8 % (11.5-14.5); RDW Standard Deviation 61.8 fL (36.4-46.3); Red Blood Count 2.25 M/uL (4.2-5.4); White Blood Count 12.73 K/uL (4.8-10.8)
[2022-03-13 07:26] LABS: Basophils # (auto) 0.01 K/uL (0-0.2); Basophils % (auto) 0.1 %; Eosinophils # (auto) 0.08 K/uL (0-0.5); Eosinophils % (auto) 0.6 %; Immature Granulocytes % (auto) 0.8 %; Lymphocytes % (auto) 5.5 %; Mean Platelet Volume 10.9 fL (7.4-10.4); Monocytes % (auto) 7.1 %; Neutrophils # (auto) 10.94 K/uL (1.4-6.5); Neutrophils % (auto) 85.9 %; Platelet Count 31 K/uL (130-400)
[2022-03-13 08:29] LABS: Alanine Aminotransferase 17 U/L (7-52); Albumin Globulin Ratio 1.5 (0.9-2); Albumin Level 3.5 gm/dl (3.4-5.0); Anion Gap 12 (3-11); Aspartate Aminotransferase 63 U/L (13-39); Bilirubin,Total 24.4 mg/dl (0.2-1.0); Calcium 6.9 mg/dl (8.5-10.1); Carbon Dioxide 27 mmol/L (21-32); Chloride 85 mmol/L (98-107); Globulin 2.3 gm/dl (2.5-4.0); Glucose 192 mg/dl (70-99(Fasting)); Potassium 2.3 mmol/L (3.5-5.1); Sodium 124 mmol/L (136-145); Total Protein 5.8 gm/dl (6.0-8.3)
[2022-03-13] MEDS ORDERED: POTASSIUM CHLORIDE CRTAB 20 MEQ TABCR PO STA ×3 (08:34→18:34)
[2022-03-13] MEDS ORDERED: CALCIUM GLUCONATE 10% 2,000 MG in DEXTROSE 5% 50 ML IV ONE (08:54)
[2022-03-13] MEDS ORDERED: STAT IV STA (08:54)
[2022-03-13] MEDS: POTASSIUM CHLORIDE / WTR 10 MEQ/100 ML PLCT IV SCH ×8 (08:57→20:56)
[2022-03-13] MEDS: PANTOprazole 40 MG TAB PO SCH (08:58)
[2022-03-13] MEDS: THIAMINE HCL 100 MG TAB PO SCH (08:58)
[2022-03-13] MEDS: FOLIC ACID 1 MG TAB PO SCH (08:58)
[2022-03-13] MEDS: LORATADINE 10 MG TAB PO SCH (08:58)
[2022-03-13] MEDS: AMPHETAMINE ASP/SULF/DEXTRAMPH 5 MG TAB PO SCH ×2 (08:58→20:54)
[2022-03-13] MEDS: MULTIVITAMIN TAB PO SCH (08:58)
[2022-03-13] MEDS: AZELASTINE HCL 0.1% NASAL 200 SPRAYS/27,400 MCG BTL SCH ×2 (09:00→20:53)
[2022-03-13] MEDS: FLUTICASONE PROPIONATE NA SPR 16 GM BTL SCH (09:00)
[2022-03-13] MEDS: FLUTICASONE/VILANTEROL 200/25MCG 14 PUFFS/INHALER INH SCH (09:13)
[2022-03-13] MEDS: UMECLIDINIUM BROMIDE 62.5MCG/BLISTER 7 PUFFS/INHALER INH SCH (09:13)
[2022-03-13 10:10] LABS: Prothrombin Time 20.8 Seconds (9.0-12.0)
--- NOTE | 2022-03-13 10:46 | Nephrology Progress Note ---
Date of Service March 13, 2022 Assessment & Plan (1) Acute hyponatremia: Plan: Patient with acute hyponatremia in setting of alcohol intoxication. She had high alcohol levels of 411 mg/dL on admission. Sodium was 124 on admission and remains stable. Serum osmolality 362. We will continue to monitor with sodium check twice daily. I expect sodium to improve with the reduction in alcohol levels (2) Hypokalemia: Plan: Patient with hyponatremia and hypokalemia due to alcohol abuse. Potassium was 2.3 today. Patient is receiving 60 mEq of KCl IV. She will need 40 mEq twice daily standing. Patient unable to take oral potassium this morning due to altered mental status. (3) Decompensated hepatic cirrhosis: Plan: Patient with decompensated cirrhosis and ascites on physical exam. She he is status post diagnostic paracentesis and albumin. Continue to hold diuretics in setting of multiple electrolyte problems Admission and Anticipated Discharge Date Admission Date: March 12, 2022 Subjective Seen for hyponatremia and hypokalemia. She feels fine but sleepy after receiving Ativan this morning Review of Systems Review of Systems: All other systems were reviewed and negative except as noted in HPI Physical Exam Physical Exam: General exam: Appears comfortable, no acute distress HEENT: Pupils are equal and reactive to light Neck: No JVD, neck is supple trachea is midline Respiratory system: Clear breath sounds bilaterally. Gastrointestinal: Abdomen is soft, mod distended, non tender, bowel sounds are present CVS: Regular rate and rhythm. No murmurs, rubs or gallops Musculoskeletal: No joint or muscle tenderness Extremities: Non tender, no edema, peripheral pulses are present Neuro: Oriented, no tremors, no focal neurological deficits Skin: No rashes Results & Data ([facility]) Vital Signs (Past 12 Hours) Vital Signs Temp Pulse Pulse Resp BP Pulse Ox 03/13/22 10:00 37.3 C 126 H 36 H 110/70 95 03/13/22 07:22 37.1 C 151 H 20 108/70 98 03/13/22 07:01 114 H 18 93 03/13/22 07:00 118 H 03/13/22 03:27 37.1 C 125 H 26 H 99/68 L 94 03/13/22 02:02 37 C 123 H 26 H 03/13/22 00:40 38.5 C H 138 H 34 H 103/70 93 03/12/22 23:30 38.9 C H 145 H 41 H 109/68 99 03/12/22 23:00 149 H 03/12/22 22:50 39.0 C H 147 H 24 108/70 94 Laboratory Results 03/13/22 06:52 03/13/22 03/13/22 03/13/22 00:59 04:44 06:52 WBC Cancelled RBC Cancelled MCV Cancelled MCH Cancelled MCHC Cancelled RDW Std Deviation Cancelled RDW Coeff of Yasmine Cancelled Plt Count Cancelled MPV Cancelled Nucleated RBC % Cancelled Albumin 3.3 L 3.5 03/13/22 06:52 WBC 12.73 H RBC 2.25 L MCV 101.3 H MCH 35.6 H MCHC 35.1 RDW Std Deviation 61.8 H RDW Coeff of Yasmine 16.8 H Plt Count 31 L MPV 10.9 H Nucleated RBC % Albumin
--- NOTE | 2022-03-13 10:54 | Gastroenterology Progress Note ---
Date of Service March 13, 2022 Assessment & Plan (1) Alcohol abuse: (2) Decompensated hepatic cirrhosis: (3) Alcoholic hepatitis: Plan: Needs permanent alcohol cessation. Appreciate primary hospitalists service managing electrolyte derangement and ETOH withdrawal. Regarding possible SBP, adjusted cell count from fluid = 238, so would cover with antibiotics for SBP until fluid culture is back (currently on ceftriaxone which will cover; Cipro 50mg BID is sufficient) Albumin 25gm QID. NAC x 24 more hrs. Would hold steroids as does not seem to be effective as was on as an OP, but plan to eventually start Trental after infection is ruled out. Would hold furosemide/spironolactone until infection ruled out and electrolytes corrected. Case management to assist w rehab as pt is interested in IP rehab. May have regular consistency diet, 2gm sodium, but aspiration precautions. Will continue to follow. Admission and Anticipated Discharge Date Admission Date: March 12, 2022 Supervising Physician Co-Signing Physician Notes Sleepy but arousable, oriented to person, no asterixis, mild ascites on exam with jaundiced appearing skin Etoh cirrhosis d/w ascites and with recurent bouts of alcoholic hepatitis since 10/12, now with concerns for sbp. overall she is sick at the current time with hyponatremia, hypokalemia, rising inr, no signs of active gi bleeding. It is in her best interest to go to an inpatient rehab if she recovers during this hospitalization given her recurrent episodes of alcoholic hepatitis and continued behavior of drinking. Agree with NAC for 24 more hours given rising INR along with albumin and abx for sbp. Agree with further plan of care, monitor for signs of acute liver failure superimposed on cirrhosis such as altered mental status. Consider keeping INR less than 2.5-3 to prevent spontaneous bleeding. Subjective 37 yr old female admitted 03/12 for alcohol detox, hyponatremia, electrolyte derangement and pt request for IP rehab. Hx of ETOH cirrhosis w ascites and Alc hep since Sep 2021. With some sobriety initially but relapsed within 2 m and drinking heavily in the past month. Bili increasing, currently 24. DF today 32. WBC decreasing w stopping the OP steroids: 12 today. Is very somulent but is oriented when wakened and denies any pain, N or V. Taking small amts of clear liquids po. Bile ducts clear and no focal liver lesions on CT. Yesterday's kidney function normal today's pending) Paracentesis fluid cx, urine and blood cx pending. Afebrile. Ascitic fluid w 385 Neut, after adjustment for 10k WBCs and .69% neutrophils, Cell count = 238. Review of Systems Review of Systems: ROS: Gen: +weakness, No fevers, No weight loss Eyes: + icterus No eye redness, or pain, no recent vision changes Resp: No SOB, no cough Cardio: No palpitations/irregular beats, no chest pain GI: Per HPI otherwise negative : + dark urine, no dysuria Skin: + jaundice Physical Exam Constitutional: well developed, + ill appearing and cooperative Eyes: PEARLA, ++ icterus ENMT: external ear and nose normal, oropharynx normal Neck: trachea midline, no thyromegaly Respiratory: normal respiratory effort, lungs clear to auscultation Cardiovascular: RRR, no murmur, no edema Gastrointestinal (Abdomen): Inspection/Auscultation: + abdomen distended and + hypoactive bowel sounds Percussion/Palpation: + ascites (not taunt); abdomen nontender and no guarding Skin: ++jaundice Neurologic: PERRL, EOMI, accommodation nl, no face palsy, no dysarthria awake; not confused Psychiatric: A+Ox3, euthymic affect Lymphatic: no cervical or axillary lymphadenopathy Results & Data ([facility]) Vital Signs (Past 12 Hours) Vital Signs Temp Pulse Pulse Resp BP Pulse Ox 03/13/22 10:00 37.3 C 126 H 36 H 110/70 95 03/13/22 07:22 37.1 C 151 H 20 108/70 98 03/13/22 07:01 114 H 18 93 03/13/22 07:00 118 H 03/13/22 03:27 37.1 C 125 H 26 H 99/68 L 94 03/13/22 02:02 37 C 123 H 26 H 03/13/22 00:40 38.5 C H 138 H 34 H 103/70 93 03/12/22 23:30 38.9 C H 145 H 41 H 109/68 99 03/12/22 23:00 149 H 03/12/22 22:50 39.0 C H 147 H 24 108/70 94 Laboratory Results WBC 12, Hb 8, Hct 22.8, Plts 31, PT 14, INR 1.3, Na 124, K 2.3, Cl 85, OC2 27, BUN/Cr were sent to [email or web address] - unable to run here due to icterus. Diagnostic Findings CTAP 03/12/22: 1. Hepatic steatosis with hepatomegaly, cirrhosis and stigmata of portal venous hypertension including splenomegaly with progressive abdominal pelvic ascites. 2. Wall thickening of the colon may be secondary to portal colopathy versus a nonspecific colitis. 3. No bowel obstruction. 4. Normal appendix. 5. Additional findings as above.
[2022-03-13] MEDS ORDERED: GABAPENTIN 600 MG TAB PO SCH (14:00)
[2022-03-13] MEDS ORDERED: chlordiazePOXIDE ALCOHOL WITHDRAWL 25MG PO STA (14:30)
[2022-03-13] MEDS: chlordiazePOXIDE HCl 25 MG CAP PO SCH ×2 (15:29→21:00)
[2022-03-13 15:40] LABS: Anion Gap 11 (3-11); Calcium 7.6 mg/dl (8.5-10.1); Carbon Dioxide 25 mmol/L (21-32); Chloride 86 mmol/L (98-107); Glucose 215 mg/dl (70-99(Fasting)); Potassium 3.1 mmol/L (3.5-5.1); Sodium 122 mmol/L (136-145)
[2022-03-13] MEDS: guaiFENesin SUGAR FREE 200 MG/10 ML UDC PO PRN (15:50)
--- NOTE | 2022-03-13 18:15 | Hospitalist Progress Note ---
Date of Service March 13, 2022 Assessment & Plan (1) Decompensated hepatic cirrhosis: Plan: per Dr. Gomez's notes with addendum: History of alcoholic cirrhosis Sepsis secondary to possible SBP -- s/p Paracentesis 2 L (03/12/2022) Paracentesis fluid culture: Pending on Ceftriaxone Day 2 GI consulted -- Acetylcysteine continued Bilirubin trending up, platelets trending down INR going up to 2.0 Discussed with GI service monitor LFTs, INR closely Alcoholic hepatitis, cirrhosis with Madrey's DF score of 37.8 -- Management per above Hyponatremia secondary to illness --Likely secondary to alcoholism Sodium level improving from 122, now 124 --[employer] Business Representative consulted Discussed with Dr. Benton Hypokalemia --IV and p.o. replacement ADD, at baseline --Continue Adderall chronic anemia, hemoglobin at baseline Hypokalemia secondary to emesis, diuretic Rx --Monitor and replace Hyperglycemia likely prediabetes hemoglobin A1c of 6 from January 2022 past tobacco abuse DVT prophylaxis. SCDs Re: Thrombocytopenia Full code plan of care discussed with patient in detail and at length all questions answered she is understanding, agreeable, comfortable with the plan of care Admission and Anticipated Discharge Date Admission Date: March 12, 2022 Subjective ff up for alcoholic hepatitis, hyponatremia, etc Seen resting in bed, sleeping but easily awakened Not in distress Appears somewhat weak States she feels better today compared to yesterday Minimal abdominal discomfort Minimal hand tremors, anxiety, no confusion, hallucinations No headache, chest pain, shortness of breath, palpitations, dizziness No other symptoms Requesting to advance diet Review of Systems Review of Systems: all noted and negative except for above Physical Exam Physical Exam: General- oriented x 3, not in distress, speaks in sentences with no effort or accessory muscle use Eyes-positive icterus Neck- no JVD Lungs- clear breath sounds bilaterally, no rales/wheezes Heart- normal rate, regular rhythm; no murmurs Abdomen- normal bowel sounds, mildly distended, soft, nontender Extremities- no pretibial edema, no calf tenderness Neuro- alert, oriented x 3; no gross focal neurologic deficits Mild hand tremors Skin- warm & dry Results & Data Results & Data ([facility]) Vital Signs (Past 12 Hours) Vital Signs Temp Pulse Pulse Resp BP Pulse Ox 03/13/22 17:00 37.8 C H 128 H 44 H 100/65 91 03/13/22 15:53 36.7 C 129 H 36 H 101/68 92 03/13/22 14:55 37.8 C H 130 H 42 H 96/58 L 92 03/13/22 14:18 129 H 03/13/22 14:16 37.8 C H 130 H 52 H 98/61 L 92 03/13/22 13:00 38.1 C H 126 H 18 101/55 L 94 03/13/22 12:08 37.6 C H 127 H 18 94/62 L 93 03/13/22 10:00 37.3 C 126 H 36 H 110/70 95 03/13/22 07:22 37.1 C 151 H 20 108/70 98 03/13/22 07:01 114 H 18 93 03/13/22 07:00 118 H all noted and reviewed including below
[2022-03-13] MEDS: ACETAMINOPHEN 325 MG TAB PO PRN (18:25)
[2022-03-13] MEDS: oxyCODONE HCL IR 5 MG TAB (IMMEDIATE RELEASE) PO PRN (19:30)
[2022-03-13] MEDS: MONTELUKAST SODIUM 10 MG TABLET PO SCH (20:53)
[2022-03-14] MEDS: guaiFENesin SUGAR FREE 200 MG/10 ML UDC PO PRN ×2 (01:01→10:52)
[2022-03-14] MEDS: ACETAMINOPHEN 325 MG TAB PO PRN ×2 (01:05→17:31)
[2022-03-14] MEDS: LORazepam 2 MG in SYRINGE 1 ML IV PRN ×4 (02:06→12:02)
[2022-03-14] MEDS: chlordiazePOXIDE HCl 25 MG CAP PO SCH ×3 (04:36→16:47)
[2022-03-14] MEDS: cefTRIAXone SODIUM 1,000 MG in DEXTROSE 5% 50 ML IV SCH (05:03)
[2022-03-14] MEDS: ALBUMIN 25% 100 mL 25 GM/100 ML VIAL IV SCH ×4 (05:03→23:50)
[2022-03-14] MEDS: Ipratropium HFA Inhaler (Combivent Respimat P&T Subs) INH SCH ×2 (07:05→18:11)
[2022-03-14] MEDS: LEVALBUTEROL TARTRATE 15 GM HFA.AER.AD INH SCH ×2 (07:05→21:00)
[2022-03-14 07:24] LABS: Hematocrit (blood only) 20.8 % (37-47); Hemoglobin 7.2 g/dL (12.0-16.0); Mean Corpuscular Hemoglobin 36.2 pg (25-34); Mean Corpuscular Hgb Conc 34.6 g/dL (32-36); Mean Corpuscular Volume 104.5 fL (80-100); Mean Platelet Volume 11.6 fL (7.4-10.4); Nucleated RBC # (auto) 0.04 K/uL (0-0); Nucleated RBC % (auto) 0.3 %; Platelet Count 31 K/uL (130-400); RDW Coefficient of Variation 17.3 % (11.5-14.5); RDW Standard Deviation 65.7 fL (36.4-46.3); Red Blood Count 1.99 M/uL (4.2-5.4); White Blood Count 11.99 K/uL (4.8-10.8)
[2022-03-14 07:47] LABS: INR 2.2 (0.9-1.1); Prothrombin Time 22.2 Seconds (9.0-12.0)
[2022-03-14 07:52] LABS: Alanine Aminotransferase 14 U/L (7-52); Albumin Level 4.2 gm/dl (3.4-5.0); Anion Gap 10 (3-11); Aspartate Aminotransferase 48 U/L (13-39); Bilirubin,Total 27.8 mg/dl (0.2-1.0); Calcium 7.8 mg/dl (8.5-10.1); Carbon Dioxide 25 mmol/L (21-32); Chloride 91 mmol/L (98-107); Glucose 127 mg/dl (70-99(Fasting)); Potassium 3.9 mmol/L (3.5-5.1); Sodium 126 mmol/L (136-145); Total Protein 6.2 gm/dl (6.0-8.3)
[2022-03-14 07:53] LABS: Blood Urea Nitrogen 6 mg/dl (6-23)
[2022-03-14 07:54] LABS: Alkaline Phosphatase 211 U/L (34-104); Magnesium 2.1 mg/dl (1.7-2.4)
[2022-03-14 08:08] LABS: Basophils # (auto) 0.02 K/uL (0-0.2); Basophils % (auto) 0.2 %; Eosinophils # (auto) 0.17 K/uL (0-0.5); Eosinophils % (auto) 1.4 %; Hypochromasia Present; Immature Granulocytes # (auto) 0.07 K/uL (0.00-0.02); Immature Granulocytes % (auto) 0.6 %; Lymphocytes # (auto) 0.79 K/uL (1.2-3.4); Lymphocytes % (auto) 6.6 %; Monocytes # (auto) 0.72 K/uL (0.11-0.59); Neutrophils # (auto) 10.22 K/uL (1.4-6.5); Neutrophils % (auto) 85.2 %; Stomatocytes 1+
[2022-03-14] MEDS: AMPHETAMINE ASP/SULF/DEXTRAMPH 5 MG TAB PO SCH (08:46)
[2022-03-14] MEDS: FLUTICASONE PROPIONATE NA SPR 16 GM BTL SCH (08:47)
[2022-03-14] MEDS: FLUTICASONE/VILANTEROL 200/25MCG 14 PUFFS/INHALER INH SCH (08:47)
[2022-03-14] MEDS: AZELASTINE HCL 0.1% NASAL 200 SPRAYS/27,400 MCG BTL SCH ×2 (08:47→23:51)
[2022-03-14] MEDS: UMECLIDINIUM BROMIDE 62.5MCG/BLISTER 7 PUFFS/INHALER INH SCH (08:48)
[2022-03-14] MEDS: LORATADINE 10 MG TAB PO SCH (08:48)
[2022-03-14] MEDS: FOLIC ACID 1 MG TAB PO SCH (08:48)
[2022-03-14] MEDS: MULTIVITAMIN TAB PO SCH (08:49)
[2022-03-14] MEDS: THIAMINE HCL 100 MG TAB PO SCH (08:49)
[2022-03-14] MEDS: PANTOprazole 40 MG TAB PO SCH (08:50)
[2022-03-14 10:44] LABS: Bilirubin Direct 18.5 mg/dl (0-0.2)
[2022-03-14] MEDS: oxyCODONE HCL IR 5 MG TAB (IMMEDIATE RELEASE) PO PRN (10:52)
--- NOTE | 2022-03-14 11:08 | 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 Note ---
Date of Service: March 14, 2022 37 yr old w ETOH hepatitis and cirrhosis. Labs reviewed, anemia likely multifactorial including bone marrow suppression from the alcohol and effect of cirrhosis as well as IV hydrational dilution. No gross GI bleeding and no hx of EV. Meds: - NAC Dc'ed - Would continue SBP coverage until paracentesis fluid cx complete. If negative, would DC. - Would continue to hold diuretics until bili stabilizes and manage ascites w periodic paracentesis until DC. When ready for DC would restart. - Would not restart steroids (has been on for months and not recently effective). - If blood/urine/fluid cultures all (-) then would start Trental. At this time, no indication for endoscopy. Needs complete, permanent ETOH cessation. IP rehab would be ideal. Continue OP GI f/u. GI w sign off. Please notify us if new/worsening GI issues but expect Bili to rise a bit further prior to starting to decrease.
[2022-03-14] MEDS ORDERED: SODIUM CHLORIDE 0.9% 1000ML 500 ML IV ONE (12:18)
[2022-03-14] MEDS: LORazepam 3 MG in SYRINGE 1.5 ML IV PRN ×2 (12:59→13:41)
--- NOTE | 2022-03-14 12:59 | XRay Report ---
XR chest 1V portable CLINICAL HISTORY: cough, r/o pneumonia COMPARISON STUDY: Chest radiograph March 12, 2022. FINDINGS: Mild enlargement of the cardiac silhouette is unchanged. No pneumothorax is present. No ple ural effusion is identified. Bilateral lower lung opacities have developed. There is pulmonary vascul ar congestion. Old left sixth rib fracture is noted. IMPRESSION: 1. Interval development of bilateral lower lung airspace opacities which could reflect pneumonia or a spiration pneumonitis. Atelectasis could appear similar on this hypoventilatory study. 2. Mild enlargement of the cardiac silhouette. Pulmonary vascular congestion. ACT 112: Negative or not required by law. Electronically signed by: Luis Zarate M.D. 03/14/2022 12:57 PM
--- NOTE | 2022-03-14 13:02 | Nephrology Progress Note ---
Date of Service March 14, 2022 Assessment & Plan (1) Acute hyponatremia: Plan: Patient with acute hyponatremia in setting of alcohol intoxication. She had high alcohol levels of 411 mg/dL on admission. Sodium was 124 on admission and up to 126 today. Serum osmolality 362. We will continue to monitor with sodium check daily. (2) Hypokalemia: Plan: Patient with hyponatremia and hypokalemia due to alcohol abuse. Potassium was 3.9today. She will need 40 mEq twice daily standing. (3) Decompensated hepatic cirrhosis: Plan: Patient with decompensated cirrhosis and ascites on physical exam. Patient with abdominal distention and tachypnea. Chest x-ray showing cardiomegaly and pulmonary vascular congestion. We will try Lasix 20 mg IV one-time. If patient responds, we might be able to give additional Lasix. continue to hold diuretics in setting of multiple electrolyte problems Admission and Anticipated Discharge Date Admission Date: March 12, 2022 Subjective Seen for hyponatremia. She complains of not feeling well. She has abdominal pain. Blood pressure remains low and tachycardia Review of Systems Review of Systems: All other systems were reviewed and negative except as noted in HPI Physical Exam Physical Exam: General exam: Appears comfortable, no acute distress HEENT: Pupils are equal and reactive to light Neck: No JVD, neck is supple trachea is midline Respiratory system: Clear breath sounds bilaterally. Gastrointestinal: Abdomen is soft, mod distended, non tender, bowel sounds are present CVS: tachycardia. No murmurs, rubs or gallops Musculoskeletal: No joint or muscle tenderness Extremities: Non tender, no edema, peripheral pulses are present Neuro: Oriented, no tremors, no focal neurological deficits Skin: No rashes Results & Data ([facility]) Vital Signs (Past 12 Hours) Vital Signs Temp Pulse Pulse Resp BP BP Pulse Ox 03/14/22 12:38 37.3 C 234 H 30 H 92/59 L 90 03/14/22 10:55 37.4 C 121 H 24 82/46 L 91 03/14/22 08:35 37.1 C 125 H 20 84/48 L 91 03/14/22 08:00 124 H 03/14/22 07:05 123 H 14 95 03/14/22 07:01 37.2 C 122 H 22 98/62 L 95 03/14/22 03:12 37.0 C 133 H 30 H 104/56 L 93 Laboratory Results 03/14/22 06:32 03/14/22 03/14/22 06:32 06:32 WBC 11.99 H RBC 1.99 L MCV 104.5 H MCH 36.2 H MCHC 34.6 RDW Std Deviation 65.7 H RDW Coeff of Yasmine 17.3 H Plt Count 31 L MPV 11.6 H Albumin 4.2
[2022-03-14] MEDS ORDERED: FUROSEMIDE INJ 20 MG/2 ML VIAL IV ONE (13:04)
[2022-03-14] MEDS: SODIUM CHLORIDE 0.9% 1000ML 1,000 ML IV SCH (13:46)
[2022-03-14] MEDS ORDERED: GABAPENTIN 600 MG TAB PO SCH (14:00)
[2022-03-14 14:39] LABS: Hematocrit (blood only) 19.3 % (37-47); Hemoglobin 6.6 g/dL (12.0-16.0)
[2022-03-14] MEDS ORDERED: STAT IV STA (15:02)
[2022-03-14] MEDS ORDERED: SODIUM CHLORIDE 0.9% 250 ML IV PRN ×3 (15:02→23:02)
[2022-03-14] MEDS ORDERED: PANTOPRAZOLE BOLUS/DRIP 1 EA IV STA (15:02)
[2022-03-14] MEDS ORDERED: OCTREOTIDE ACETATE 100 MCG in SYRINGE 9 ML IV ONE (15:30)
[2022-03-14] MEDS ORDERED: PANTOprazole 80 MG in DEXTROSE 5% 100 ML IV ONE (15:30)
--- NOTE | 2022-03-14 15:34 | Gastroenterology Progress Note ---
Date of Service March 14, 2022 Assessment & Plan (1) Decompensated hepatic cirrhosis: (2) Alcoholic hepatitis: Plan: 1. PPI drip 2. Octreotide drip 3. Cont Cefriaxone 4. Cont albumin infusions. 5. Discussed w Dr. Taylor who is consumer loan officer. If further drop in Hb/Hct or melena then EGD this weekend. Admission and Anticipated Discharge Date Admission Date: March 12, 2022 Supervising Physician Co-Signing Physician Notes I performed a history and physical examination of the patient today, including specifically on physical exam - soft abdomen. I have discussed the patient's management with the advanced practitioner. Please refer to the nurse practitioner's note for the documented findings and plan of care. Slight drop in H/H, no melena, monitor H/H and transfuse one PRBC. If evidence of overt bleeding then plan for EGD tomorrow, will inform who is oncall. Subjective Called by primary hospitalist. Pt had vomiting 3tsp of bloody liquid mid day. Hb now 6.6, (10.9 on arrival, 8 yesterday). Reviewed labs, VS, visited patient in room. Pt had just ambulated back from and dizzy/weak. Physical Exam Constitutional: + ill appearing, cooperative, + lethargic (but oriented when awake) and + overweight Eyes: ++ icterus Neck: trachea midline, no thyromegaly Cardiovascular: Rate/Rhythm: + tachycardic Gastrointestinal (Abdomen): diffusely tender Skin: ++ jaundice Results & Data ([facility]) Vital Signs (Past 12 Hours) Vital Signs Temp Pulse Pulse Resp BP BP Pulse Ox 03/14/22 15:16 37 C 120 H 24 86/52 L 95 03/14/22 13:55 37 C 115 H 30 H 87/49 L 96 03/14/22 12:38 37.3 C 234 H 30 H 92/59 L 90 03/14/22 10:55 37.4 C 121 H 24 82/46 L 91 03/14/22 08:35 37.1 C 125 H 20 84/48 L 91 03/14/22 08:00 124 H 03/14/22 07:05 123 H 14 95 03/14/22 07:01 37.2 C 122 H 22 98/62 L 95 Laboratory Results WBC 11, Hb 6.6, Hct 19.3, Plts 31. Na 126, K 3.6, BUN 6, Cr not measurable due to icterus. Diagnostic Findings CXR 03/14/22 12: 1. Interval development of bilateral lower lung airspace opacities which could reflect pneumonia or aspiration pneumonitis. Atelectasis could appear similar on this hypoventilatory study. 2. Mild enlargement of the cardiac silhouette. Pulmonary vascular congestion.
[2022-03-14] MEDS: OCTREOTIDE ACETATE 500 MCG in DEXTROSE 5% 100 ML IV SCH ×2 (15:55→23:51)
[2022-03-14] MEDS: PANTOprazole 40 MG in DEXTROSE 5% 100 ML IV SCH ×2 (16:46→21:17)
--- NOTE | 2022-03-14 17:28 | Hospitalist Progress Note ---
Date of Service March 14, 2022 Assessment & Plan (1) Decompensated hepatic cirrhosis: Plan: per Dr. Gomez's notes with addendum: Decompensated liver cirrhosis History of alcoholic cirrhosis -- s/p Paracentesis 2 L (03/12/2022) Paracentesis fluid culture: Negative so far on Ceftriaxone, changed to cefepime plus clindamycin in light of pneumonia GI consulted, does not recommend repeat paracentesis today -- Acetylcysteine given x2 days Bilirubin trending up, platelets still 30 1K, INR going up to 2.2 Discussed with GI service monitor LFTs, INR closely Alcoholic hepatitis, cirrhosis with Madrey's DF score of 37.8 -- Management per above Bibasilar pneumonia, possible aspiration -- Change ceftriaxone to cefepime plus clindamycin Nebs every 6 hours Anemia, likely secondary to acute blood loss, possible upper GI bleed, secondary to gastritis/peptic ulcer disease/variceal bleeding -- Hemoglobin 6.6 1 unit packed RBC ordered -- Platelet 31 K 1 unit of platelet pheresis ordered -- INR 2.2, likely coagulopathy secondary to liver cirrhosis Vitamin K 10 mg IV ordered --Repeat H&H 8 PM -- Protonix drip, octreotide, cefepime -- Discussed with GI today -- N.p.o. for now Hyponatremia secondary to illness --Likely secondary to alcoholism Sodium level improving from 122, now 126 --Retail Wireless Associate consulted Discussed with Dr. Benton Hypokalemia -- Resolved ADD, at baseline --Continue Adderall Hyperglycemia likely prediabetes hemoglobin A1c of 6 from January 2022 past tobacco abuse DVT prophylaxis. SCDs Re: Thrombocytopenia Full code plan of care discussed with patient in detail and at length all questions answered she is understanding, agreeable, comfortable with the plan of care Admission and Anticipated Discharge Date Admission Date: March 12, 2022 Subjective Follow-up for alcoholic hepatitis, decompensated liver cirrhosis, alcohol withdrawal, etc. Seen with patient's mother Sayra at bedside and nurse throughout all encounter Patient is drowsy, weak but able to answer some questions States her abdominal pain is better today, no nausea or vomiting Reports mild cough, but no shortness of breath Denies chest pain, palpitations, dizziness Reports some mild tremors but no anxiety, hallucinations No other symptoms Review of Systems Review of Systems: all noted and negative except for above Physical Exam Physical Exam: General- oriented x 3, not in distress, speaks in sentences with no effort or accessory muscle use Weak, drowsy Eyes-anicteric Neck- no JVD Lungs-mild rhonchi in the bases, no wheezing Good air entry bilaterally Heart-tachycardic, regular rhythm; no murmurs Abdomen- normal bowel sounds, mildly distended but, soft, nontender Extremities- no pretibial edema, no calf tenderness Neuro- alert, oriented x 3; no gross focal neurologic deficits Skin- warm & dry Results & Data Results & Data ([facility]) Vital Signs (Past 12 Hours) Vital Signs Temp Pulse Pulse Resp BP BP BP 03/14/22 17:12 38 C H 113 H 18 87/53 L 03/14/22 15:16 37 C 120 H 24 86/52 L 03/14/22 13:55 37 C 115 H 30 H 87/49 L 03/14/22 12:38 37.3 C 234 H 30 H 92/59 L 03/14/22 10:55 37.4 C 121 H 24 82/46 L 03/14/22 08:35 37.1 C 125 H 20 84/48 L 03/14/22 08:00 124 H 03/14/22 07:05 123 H 14 03/14/22 07:01 37.2 C 122 H 22 98/62 L Pulse Ox 03/14/22 17:12 92 03/14/22 15:16 95 03/14/22 13:55 96 03/14/22 12:38 90 03/14/22 10:55 91 03/14/22 08:35 91 03/14/22 08:00 03/14/22 07:05 95 03/14/22 07:01 95 all noted and reviewed including below
[2022-03-14] MEDS ORDERED: PHYTONADIONE 10 MG in DEXTROSE 5% 50 ML IV STA (17:39)
[2022-03-14] MEDS ORDERED: LEVALBUTEROL HCL 1.25 MG/3 ML NEB ONE (18:08)
[2022-03-14] MEDS: IPRATROPIUM BROMIDE NEB SOLN 0.02% 2.5 ML VIAL INH SCH (18:11)
[2022-03-14] MEDS: LEVALBUTEROL 1.25MG/0.5ML NEB INH SCH (18:12)
[2022-03-14] MEDS: CEFEPIME 2,000 MG in SYRINGE 0 ML IV SCH (18:33)
[2022-03-14] MEDS: CLINDAMYCIN/D5W 600 MG/50 ML BAG IV SCH (18:36)
[2022-03-14] MEDS ORDERED: MIDODRINE HCL 2.5 MG TAB PO SCH (18:40)
[2022-03-14] MEDS ORDERED: XOPENEX/ATROVENT 1.25mg/0.5MG NEB COMBO NEB SCH (19:00)
[2022-03-14] MEDS ORDERED: ICU PROTOCOL FOR HYPERGLYCEMIA PRN (20:52)
--- NOTE | 2022-03-14 20:54 | Critical Care Consultation ---
Date of Consultation March 14, 2022 Assessment & Plan (1) Admitted to intensive care unit: Reason Critically Ill: 37-year-old female with acute decompensated alcoholic cirrhosis with new upper GI bleeding and concerns for sepsis. NEURO - * CAM ICU: NEGATIVE * Somnolent: * Likely related to acuity of illness. Question of hyperammonemia, however, unable to assess this secondary to patient's blood being too icteric. * Alert and oriented otherwise. CARDIAC/VASCULAR - * Soft blood pressures: * Likely patient's baseline in the setting of liver disease. * Receiving PRBCs and Platelets now as well as ongoing albumin. * Will hold her PO Midodrine 2/2 UGIB. * Pressors if needed. Consider vasopressin early. * Monitor on telemetry. RESPIRATORY - * Hypoxia: * Concerns for developing pneumonia. * Currently covered w/ Cefepime and Clindamycin. * Patient takes shallow breaths and is likely causing atelectasis as well. * Will attempt to encourage better pulmonary toilet. * Will had HFNC to help provide some degree of inspiratory pressure. * NIPPV --> intubation if needed. GI/NUTRITION - * Acute on Chronic Decompensated Hepatic Cirrhosis: * Concerning in the patient who has continued to actively drink. * Did not do well w/ outpatient steroid treatment. Would avoid steroids currently as she is fevering. * SBP coverage w/ Cefepime - Paracentesis w/o overt infectious findings, however. * Albumin scheduled dosing. * Despite aggressive treatment, patient's MELD has actually worsened during s shannan. 29 --> 32. * Concerned for patient's progression. She had previously been evaluated at [facility], but had not abstained long enough to be formally placed on transplant list. * Continue treatment per GI's ongoing guidance. * UGIB: * Patient w/ small amount of hematemesis and drop in H&H. * Currently receiving PRBCs. * Octreotide/Protonix gtts. * Previous scopes had not indicated varices. * Patient will likely benefit from UGI series at some point during stay. * Will continue to resuscitate. RENAL/LYTES - * Hyponatremia/Hypokalemia: * In the setting of liver failure. * Appreciate nephro's input. - * Talbot in place - Strict I&Os. ENDO - * No h/o DM or Thyroid Dz * BSGs per unit protocol. ISS --> gtt per unit policy. HEME - * Acute blood loss anemia: * Likely 2/2 UGIB. * Concerning in the patient w/ elevated INR from hepatic failure. * Received 10 mg vitamin K * Receiving 1 U PRBCs now. * To receive platelets as well. * Thrombocytopenia: * Likely 2/2 EtOH. * Platelet transfusion in the setting of UGIB. ID - * Sepsis: * Concerns for possible urinary/pulmonary/GI sources. * Receiving Cefepime with Clindamycin for aspiration coverage as well. * Lactate will likely be of little help in the liver failure patient. * Check AM PCT. LINES/IV ACCESS - * PIVs x3 * LUE Endurance Catheter * Talbot DVT PROPHYLAXIS - * Hold on chemoprophylaxis in the setting of UGIB w/ thrombocytopenia and an e levated INR. * SCDs I have personally spent 65 minutes of critical care time in the direct management of this patient. This is a life/limb threatening event. This includes time spent evaluating patient, direct bedside care, chart review, placing orders, interpretation of diagnostic studies, discussion with consultants, patient, and family members, as well as other required patient management activ ities. This time is exclusive of all separately billable procedures, and teaching time and separate from and in addition to any other critical care service time. Thank you for allowing us to participate in the care of this patient. Please refer to my attending physician's documentation for any further recommendations. (2) Acute on chronic alcoholic liver disease: (3) Jaundice: (4) Decompensated hepatic cirrhosis: (5) Alcohol abuse: (6) Hyperbilirubinemia: (7) Hypomagnesemia: History of Present Illness Attending Physician: Tyrel Chahal MD History of Present Illness Patient is a 37-year-old female with a significant past medical history of alcoholic cirrhosis, ADD, and anxiety who was initially admitted to this institution on 03/12 with request for rehabilitation as well as generalized feelings of malaise. Apparently, over the last 2 weeks, the patient has had increasing jaundice. The patient had initially been admitted for acute alcoholic hepatitis approximately 4 to 5 years ago when she was living in [place]. Since that time, she has moved home to the [facility] and is followed with Marly VILLAFUERTE. She was actually scheduled to see the transplant team at [place] next month, however it was unknown that she had continued to drink. Unfortunately, during this hospitalization ago the patient is began to spike fevers. Additionally, she is thrombocytopenic. Over the last 24 hours, her condition has declined and she had some hematemesis. She has been started on octreotide and Protonix drips. She has been covered broadly with antibiotics with concern for aspiration pneumonitis. She is currently receiving cefepime and clindamycin. Upon evaluation in the ICU, the patient is awake, alert, and oriented. She is somewhat somnolent, but does answer questions appropriately. Patient is jaundiced and ill-appearing. Majority of history obtained from patient's mother who is present at bedside. Allergies Allergy/AdvReac Type Severity Reaction Status Date / Time banana Allergy Intermediate RASH, Verified 03/12/22 01:11 THROAT SLIGHTLY SWOLLEN Penicillins Allergy Unknown HAPPENED Verified 03/12/22 01:11 A CHILD Home Medications Medication Instructions Recorded Confirmed Type albuterol sulfate 90 mcg/actuation 1 inh INHALATION QID PRN 06/24/20 03/12/22 History aerosol inhaler (ProAir HFA) budesonide-formoterol HFA 160 2 puff INHALATION BID 06/20/21 03/12/22 History mcg-4.5 mcg/actuation aerosol inhaler (Symbicort) dextroamphetamine-amphetamine 5 mg 5 mg PO BID 06/20/21 03/12/22 History tablet (Adderall) ipratropium 20 mcg-albuterol 100 1 puff INHALATION BID 06/20/21 03/12/22 History mcg/actuation mist for inhalation (Combivent Respimat) loratadine 10 mg tablet 10 mg PO QAM 06/20/21 03/12/22 History montelukast 10 mg tablet 10 mg PO HS 06/20/21 03/12/22 History omeprazole 20 mg capsule,delayed 20 mg PO QAM 06/20/21 03/12/22 History release azelastine 137 mcg (0.1 %) nasal 1 spray INTRANASAL BID 10/03/21 03/12/22 History spray aerosol fluticasone propionate 50 2 spray INTRANASAL DAILY 10/03/21 03/12/22 History mcg/actuation nasal spray,suspension multivitamin 1 tab PO QAM 10/03/21 03/12/22 History thiamine HCl (vitamin B1) 100 mg 100 mg PO QAM #30 tab 10/09/21 03/12/22 Rx tablet ondansetron HCl 4 mg tablet 4 mg PO Q8H PRN 10/31/21 03/12/22 History tramadol 50 mg tablet 50 mg PO Q6H PRN 10/31/21 03/12/22 History furosemide 20 mg tablet 20 mg PO PM 11/20/21 03/12/22 History furosemide 40 mg tablet (Lasix) 40 mg PO QAM 11/20/21 03/12/22 History spironolactone 50 mg tablet 50 mg PO PM 11/20/21 03/12/22 History ascorbic acid (vitamin C) 500 mg 500 mg PO QAM 01/31/22 03/12/22 History tablet (Vitamin C) cholecalciferol (vitamin D3) 50 2,000 mcg PO QAM 01/31/22 03/12/22 History mcg (2,000 unit) capsule (Vitamin D3) hydroxyzine HCl 25 mg tablet 1 mg PO TID PRN 01/31/22 03/12/22 History milk thistle 500 mg capsule 0 mg PO QAM 01/31/22 03/12/22 History spironolactone 100 mg tablet 100 mg PO DAILY 01/31/22 03/12/22 History tiotropium bromide 2.5 2 puff INHALATION DAILY 01/31/22 03/12/22 History mcg/actuation mist for inhalation (Spiriva Respimat) hahkrco-psyq-pjixp-oreg-capryl 0 mg PO QAM 01/31/22 03/12/22 History Patient History Medical History ADD (attention deficit disorder) Alcohol abuse Alcoholic hepatitis Alcoholic pancreatitis Allergic sinusitis Anxiety Asthma Depression Fatty liver History of abdominal paracentesis Tobacco use Surgical History History of esophagogastroduodenoscopy (EGD) Family History Grandmother Breast cancer Grandfather Heart disease Social History Smoking Status: Former smoker Tobacco Type: Cigarettes Cigarettes Per Day: 1-2 cigarettes/day; Smoking End Date: 03/08/2022; Second Hand Exposure: No; Do You Dip or Chew Tobacco: No; Tobacco Cessation Education Requested by Patient: No Hx Alcohol Use: Yes Alcohol type: beer Hx Substance Use: No Preferred Language: Taiwanese 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 Ability: Effective Supervisor [employer] Required: No Beliefs That Will Affect Care: None marital status: Single Current Living Situation: Significant Other Current Living Situation Comment: Apartment current occupational status: employed How many Children do You have: 0 Other Information That Helps Us Care for You: No Feels Safe at Home: Yes Safety Concerns: Feels Safe At This Time Assistive Devices: None Review of Systems Review of Systems: A complete 10 point review of systems was reviewed with the patient with pertinent positives and negatives as per history of present illness. All else were negative. Physical Exam Physical Exam: VITAL SIGNS - Vital signs and nursing notes were reviewed. GENERAL - 37-year-old female appearing her stated age who is in mild distress. Communicates well with provider and answers questions appropriately. SKIN - Profoundly jaundiced. HEAD - NC/AT. EYES - PERRL with EOMI bilaterally. Sclera icterus noted. EARS - No deformities of external structures noted on gross examination bilaterally. NOSE - Midline and without cyanosis. No epistaxis or purulent drainage noted. MOUTH/OROPHARYNX - Without perioral cyanosis. NECK - Neck with FROM. Supple to palpation. No nuchal rigidity. LUNGS -Slightly tachypneic. Chest wall symmetric without accessory muscle use, intercostals retractions, or central cyanosis. Normal vesicular breath sounds CTA B/L. No wheezes, rales, or rhonchi appreciated. CARDIAC - RRR with S1/S2. No murmur, rubs, or gallops appreciated. ABDOMEN - Abdominal contour protuberant. without pulsations or visible masses. BS normoactive all four quadrants. Mild subjective TTP. Ascites noted. EXTREMITIES - No clubbing or peripheral cyanosis. Anasarca. +3/5 radial and dorsalis pedis pulses palpated throughout. +4/5 strength noted in UE/LE bilaterally. NEUROLOGIC - Cranial nerves II through XII grossly intact. Sensory intact to light touch throughout. PSYCH - A&Ox3 and cooperates fully with examiner. Somnolent, but does answer questions appropriately. Results & Data Results & Data ([facility]) Vital Signs (Past 12 Hours) Vital Signs Temp Pulse Pulse Resp BP BP BP 03/14/22 20:15 38.1 C H 106 H 46 H 98/64 L 03/14/22 19:15 36.4 C L 107 H 24 104/69 03/14/22 19:00 38.2 C H 108 H 48 H 102/60 03/14/22 18:15 37.1 C 112 H 24 80/43 L 03/14/22 18:13 109 H 18 03/14/22 17:45 37.1 C 110 H 20 102/59 L 03/14/22 17:30 37.1 C 122 H 22 91/56 L 03/14/22 17:12 38 C H 113 H 18 87/53 L 03/14/22 15:16 37 C 120 H 24 86/52 L 03/14/22 13:55 37 C 115 H 30 H 87/49 L 03/14/22 12:38 37.3 C 234 H 30 H 92/59 L 03/14/22 10:55 37.4 C 121 H 24 82/46 L Pulse Ox 03/14/22 20:15 96 03/14/22 19:15 95 03/14/22 19:00 95 03/14/22 18:15 95 03/14/22 18:13 93 03/14/22 17:45 93 03/14/22 17:30 94 03/14/22 17:12 92 03/14/22 15:16 95 03/14/22 13:55 96 03/14/22 12:38 90 03/14/22 10:55 91 Coding Level of Care Code Critical Care 1st 30-74 mins Diagnoses Admitted to intensive care unit Z78.9 Acute on chronic alcoholic liver disease K70.9 Jaundice R17 Decompensated hepatic cirrhosis K72.90; K74.60 Alcohol abuse F10.10 Hyperbilirubinemia E80.6 Hypomagnesemia E83.42 Time Spent (min) 65
--- NOTE | 2022-03-14 21:34 | XRay Report ---
XR chest 1V portable CLINICAL HISTORY: r/o pleural effusion, pulmonary edema TECHNIQUE: Single frontal radiograph of the chest was obtained. Comparison: Comparison is made to chest radiograph 03/14/2022 FINDINGS: No lines and tubes are seen. The cardiomediastinal silhouette is stable. Lungs are underinflated but clear. Mild prominence of the pulmonary vasculature is seen. Airspace opacity is seen in the right lo wer lobe. No evidence of pleural effusion or pneumothorax. IMPRESSION: Mild pulmonary edema. Right lower lobe airspace opacity which may represent atelectasis, pneumonia, a nd/or aspiration. Stable cardiomegaly. ACT 112: Negative or not required by law. Electronically signed by: Carlos Sullivan M.D. 03/14/2022 9:32 PM
--- NOTE | 2022-03-14 22:04 | Procedure Note ---
Procedure Note Date of Service March 14, 2022 Note Procedure: Ice Cream Scooper Indwelling Peripherally Inserted IV Catheter Placement Attending: Dr. Osorio APC: Hao Hartman PA-C Indication: Need for IV Access, Poor Vascular Access Anesthesia: None Verbal consent was obtained from patient prior to performing the procedure. A time-out was completed verifying correct patient, procedure, site, positioning, and implant(s) or special equipment if applicable. Utilizing bedside ultrasound, vascularity of the LEFT upper extremity was assessed. Vessel size was noted for appropriate catheter selection and skin was marked with gentle pressure. Patients LEFT upper extremity was prepped and draped in the usual sterile fashion utilizing chlorhexidine. Ultrasound guidance was used to aid needle placement. A 20 g Endurance Catheter was introduced into the cephalic vein under direct ultrasound guidance. Guide wire was easily deployed without resistance. Catheter was threaded over the guide wire without resistance and the entire apparatus was removed intact. Good venous blood return was noted in the catheter. The IV catheter was easily flushed with sterile saline flush. Sterile clave was attached to the end of the catheter and good blood return was again noted. Tourniquet was released. StatLock device and sterile dressing were applied. The patient tolerated the procedure well. Blood Loss: Minimal Complications: None Procedural Ultrasound Guidance: Procedure Date: 03/14/2022 Indication: Poor Vascular Access Attending: Dr. Osorio APC: Hao Hartman PA-C Artery/Veins Identified: YES Access confirmed in Vein with ultrasound: YES Complications: NONE Patient tolerated procedure: WELL Coding CPT Codes Tubes, Drains, and Vasc Access - Tubes, Drains, and Vasc Access: [id number] Venipuncture, Age 5/>Req phys skill, (sep proc), Dx/Tx (not rtn) ([id number]) [facility] Procedure Codes (Charges) Tubes, Drains, and Vasc Access Procedure 1: Tubes, Drains, and Vasc Access: [id number] Venipuncture, Age 5/>Req phys skill, (sep proc), Dx/Tx (not rtn)
[2022-03-14 22:58] LABS: Hematocrit (blood only) 22.8 % (37-47); Hemoglobin 7.9 g/dL (12.0-16.0)
[2022-03-15] MEDS: IPRATROPIUM BROMIDE NEB SOLN 0.02% 2.5 ML VIAL INH SCH ×4 (00:02→19:39)
[2022-03-15] MEDS: LEVALBUTEROL 1.25MG/0.5ML NEB INH SCH ×4 (00:02→19:39)
[2022-03-15] MEDS ORDERED: FUROSEMIDE INJ 20 MG/2 ML VIAL IV ONE (00:17)
[2022-03-15] MEDS: SODIUM CHLORIDE 0.9% 1000ML 1,000 ML IV SCH ×2 (00:39→13:03)
[2022-03-15] MEDS: PANTOprazole 40 MG in DEXTROSE 5% 100 ML IV SCH ×5 (01:55→22:45)
[2022-03-15] MEDS: CLINDAMYCIN/D5W 600 MG/50 ML BAG IV SCH (01:59)
[2022-03-15] MEDS: CEFEPIME 2,000 MG in SYRINGE 0 ML IV SCH ×3 (01:59→18:02)
[2022-03-15] MEDS ORDERED: LORazepam 0.5 mg IV INJ IV ONE ×2 (02:40→02:45)
[2022-03-15] MEDS ORDERED: Nursing to Pharmacy 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 SCH (02:45)
[2022-03-15 05:54] LABS: Nucleated RBC # (auto) 0.04 K/uL (0-0); Nucleated RBC % (auto) 0.4 %
[2022-03-15] MEDS: ALBUMIN 25% 100 mL 25 GM/100 ML VIAL IV SCH ×3 (06:00→18:02)
[2022-03-15 06:23] LABS: INR 1.8 (0.9-1.1); Prothrombin Time 18.5 Seconds (9.0-12.0)
[2022-03-15 06:24] LABS: Anisocytosis Present; Basophils # (auto) 0.02 K/uL (0-0.2); Basophils % (auto) 0.2 %; Eosinophils # (auto) 0.17 K/uL (0-0.5); Eosinophils % (auto) 1.6 %; Hematocrit (blood only) 26.6 % (37-47); Hemoglobin 9.2 g/dL (12.0-16.0); Immature Granulocytes # (auto) 0.07 K/uL (0.00-0.02); Immature Granulocytes % (auto) 0.6 %; Lymphocytes # (auto) 0.54 K/uL (1.2-3.4); Mean Corpuscular Hgb Conc 34.6 g/dL (32-36); Mean Corpuscular Volume 101.1 fL (80-100); Mean Platelet Volume 11.4 fL (7.4-10.4); Monocytes # (auto) 0.61 K/uL (0.11-0.59); Monocytes % (auto) 5.7 %; Neutrophils # (auto) 9.38 K/uL (1.4-6.5); Neutrophils % (auto) 86.9 %; Platelet Count 52 K/uL (130-400); Platelet Estimate Decreased (Normal); Polychromasia 1+; RDW Standard Deviation 73.3 fL (36.4-46.3); Red Blood Count 2.63 M/uL (4.2-5.4); White Blood Count 10.79 K/uL (4.8-10.8)
[2022-03-15 06:39] LABS: Alanine Aminotransferase 12 U/L (7-52); Albumin Level 4.2 gm/dl (3.4-5.0); Anion Gap 11 (3-11); Aspartate Aminotransferase 45 U/L (13-39); Bilirubin,Total 35.5 mg/dl (0.2-1.0); Calcium 7.6 mg/dl (8.5-10.1); Carbon Dioxide 22 mmol/L (21-32); Chloride 99 mmol/L (98-107); Glucose 156 mg/dl (70-99(Fasting)); Sodium 132 mmol/L (136-145)
[2022-03-15 06:48] LABS: Blood Urea Nitrogen 7 mg/dl (6-23); Magnesium 1.9 mg/dl (1.7-2.4)
--- NOTE | 2022-03-15 06:48 | XRay Report ---
XR chest 1V portable HISTORY: 37 years-old Female sob acute shortness of breath COMPARISON: Chest radiograph 03/14/2022 TECHNIQUE: Portable AP view of the chest FINDINGS: The cardiac silhouette is enlarged. Mild right hemidiaphragmatic elevation. Lungs are hypoinflated. P ulmonary vascular congestion with interstitial coarsening and bilateral airspace opacities, stable fr om prior. No pneumothorax. Probable small pleural effusions. Bones appear grossly intact. Mild levosc oliosis of the upper thoracic spine. IMPRESSION: 1. Pulmonary vascular congestion with mixed interstitial and alveolar opacities redemonstrated sugges tive of multifocal pneumonia. 2. Hypoinflation. 3. Possible small pleural effusions. ACT 112: Negative or not required by law. The above report was generated using voice recognition software. It may contain grammatical, syntax o r spelling errors. Electronically signed by: Bud Madera M.D. 03/15/2022 6:47 AM
[2022-03-15 06:51] LABS: Bilirubin Direct 22.1 mg/dl (0-0.2)
[2022-03-15] MEDS ORDERED: POTASSIUM PHOS 3 MMOL/1 ML INFUSION IV STA ×2 (07:59→17:49)
[2022-03-15] MEDS ORDERED: POTASSIUM CHLORIDE CRTAB 20 MEQ TABCR PO STA (08:11)
[2022-03-15] MEDS ORDERED: POTASSIUM PHOSPHATE 21 MMOL in SODIUM CHLORIDE 0.9% 500 ML IV ONE (08:15)
[2022-03-15] MEDS: OCTREOTIDE ACETATE 500 MCG in DEXTROSE 5% 100 ML IV SCH ×2 (08:42→19:20)
[2022-03-15] MEDS: THIAMINE HCL 100 MG in SYRINGE 9 ML IV SCH (08:42)
[2022-03-15] MEDS: FOLIC ACID 1 MG in SYRINGE 9.8 ML IV SCH (08:42)
[2022-03-15] MEDS: UMECLIDINIUM BROMIDE 62.5MCG/BLISTER 7 PUFFS/INHALER INH SCH (08:43)
[2022-03-15] MEDS: FLUTICASONE/VILANTEROL 200/25MCG 14 PUFFS/INHALER INH SCH (08:43)
[2022-03-15] MEDS: AZELASTINE HCL 0.1% NASAL 200 SPRAYS/27,400 MCG BTL SCH ×2 (08:43→20:57)
[2022-03-15] MEDS: FLUTICASONE PROPIONATE NA SPR 16 GM BTL SCH ×2 (08:44→12:16)
[2022-03-15] MEDS ORDERED: SODIUM PHOSPHATE 3 MMOL/1 ML 5 ML VIAL IV SCH (09:00)
--- NOTE | 2022-03-15 09:13 | Critical Care Progress Note ---
Date of Service March 15, 2022 Assessment & Plan (1) Admitted to intensive care unit: Plan: Reason Critically Ill: 37-year-old female with acute decompensated alcoholic cirrhosis with new upper GI bleeding and concerns for sepsis. NEURO - * CAM ICU: NEGATIVE * Somnolent: * Likely related to acuity of illness. Question of hyperammonemia, however, unable to assess this secondary to patient's blood being too icteric. * Alert and oriented otherwise. CARDIAC/VASCULAR - * Hypotension * Likely patient's baseline in the setting of liver disease. * Status post packed RBCs and platelets. Hemoglobin improved. * Pressors if needed. * Monitor on telemetry. RESPIRATORY - * Hypoxia: * Concerns for developing pneumonia. * Currently covered w/ Cefepime * Patient takes shallow breaths and is likely causing atelectasis as well. * Will attempt to encourage better pulmonary toilet. * Will had HFNC to help provide some degree of inspiratory pressure. GI/NUTRITION - * Acute on Chronic Decompensated Hepatic Cirrhosis: * Concerning in the patient who has continued to actively drink. * Did not do well w/ outpatient steroid treatment. Would avoid steroids currently as she is fevering. * SBP coverage w/ Cefepime - Paracentesis w/o overt infectious findings, however. * Albumin scheduled dosing. * Despite aggressive treatment, patient's MELD has actually worsened during stay. 29 --> 32. * Concerned for patient's progression. She had previously been evaluated at [facility], but had not abstained long enough to be formally placed on transplant list. * Continue treatment per GI's ongoing guidance. * UGIB: * Patient w/ small amount of hematemesis and drop in H&H. * Currently receiving PRBCs. * Octreotide/Protonix gtts. * Previous scopes had not indicated varices. * Patient will likely benefit from UGI series at some point during stay. * Will continue to resuscitate. RENAL/LYTES - * Hyponatremia/Hypokalemia: * In the setting of liver failure. Replace per protocol. * Appreciate nephro's input. - * Talbot in place - Strict I&Os. ENDO - * No h/o DM or Thyroid Dz * BSGs per unit protocol. ISS --> gtt per unit policy. HEME - * Acute blood loss anemia: * Likely 2/2 UGIB. * Concerning in the patient w/ elevated INR from hepatic failure. * Received 10 mg vitamin K * Thrombocytopenia: * Likely 2/2 EtOH. * Platelet transfusion in the setting of UGIB. ID - * Sepsis: * Concerns for possible urinary/pulmonary/GI sources. * Receiving Cefepime. Clindamycin discontinued. * Lactate will likely be of little help in the liver failure patient. * Check AM PCT. * Blood cultures pending. LINES/IV ACCESS - * PIVs x3 * LUE Endurance Catheter * Talbot DVT PROPHYLAXIS - * Hold on chemoprophylaxis in the setting of UGIB w/ thrombocytopenia and an elevated INR. * SCDs I have personally spent 54 minutes of critical care time in the direct management of this patient. This is a life/limb threatening event. This includes time spent evaluating patient, direct bedside care, chart review, placing orders, interpretation of diagnostic studies, discussion with consultants, patient, and family members, as well as other required patient management activities. This time is exclusive of all separately billable procedures, and teaching time and separate from and in addition to any other critical care service time. (2) Acute on chronic alcoholic liver disease: (3) Jaundice: (4) Decompensated hepatic cirrhosis: (5) Alcohol abuse: (6) Hyperbilirubinemia: (7) Hypomagnesemia: Admission and Anticipated Discharge Date Admission Date: March 12, 2022 Subjective Patient seen and examined. She is arousable to commands and responds appropriately. Hemodynamically stable at this time. Heart rate elevated to 115. Temperature elevated 38.2 C. Review of Systems Review of Systems: All systems reviewed & are unremarkable except as noted in HPI & below Physical Exam Physical Exam: VITAL SIGNS - Vital signs and nursing notes were reviewed. GENERAL - 37-year-old female appearing her stated age who is in mild distress. Communicates well with provider and answers questions appropriately. SKIN - Profoundly jaundiced. HEAD - NC/AT. EYES - PERRL with EOMI bilaterally. Sclera icterus noted. EARS - No deformities of external structures noted on gross examination bilaterally. NOSE - Midline and without cyanosis. No epistaxis or purulent drainage noted. MOUTH/OROPHARYNX - Without perioral cyanosis. NECK - Neck with FROM. Supple to palpation. No nuchal rigidity. LUNGS -Slightly tachypneic. Chest wall symmetric without accessory muscle use, intercostals retractions, or central cyanosis. Normal vesicular breath sounds CTA B/L. No wheezes, rales, or rhonchi appreciated. CARDIAC - RRR with S1/S2. No murmur, rubs, or gallops appreciated. ABDOMEN - Abdominal contour protuberant. without pulsations or visible masses. BS normoactive all four quadrants. Mild subjective TTP. Ascites noted. EXTREMITIES - No clubbing or peripheral cyanosis. Anasarca. +3/5 radial and dorsalis pedis pulses palpated throughout. +4/5 strength noted in UE/LE bilaterally. NEUROLOGIC - Cranial nerves II through XII grossly intact. Sensory intact to light touch throughout. PSYCH - A&Ox3 and cooperates fully with examiner. Somnolent, but does answer questions appropriately. Results & Data Results & Data ([facility]) Vital Signs (Past 12 Hours) Vital Signs Temp Pulse Pulse Resp BP BP Pulse Ox 03/15/22 07:27 113 H 28 H 95 03/15/22 06:00 38.2 C H 112 H 30 H 97/70 L 93 03/15/22 05:00 38.6 C H 110 H 40 H 118/63 95 03/15/22 04:00 39.1 C H 111 H 110 H 53 H 128/59 L 128/59 L 95 03/15/22 03:50 113 H 35 H 94 03/15/22 03:00 39 C H 112 H 42 H 127/77 94 03/15/22 02:27 38.9 C H 113 H 36 H 134/72 96 03/15/22 01:27 38.7 C H 109 H 50 H 126/67 97 03/15/22 00:57 38.4 C H 109 H 50 H 124/68 93 03/15/22 00:42 38.3 C H 106 H 46 H 107/64 99 03/15/22 00:21 38.2 C H 105 H 44 H 104/58 L 96 03/15/22 00:04 105 H 34 H 96 03/14/22 23:23 38.2 C H 106 H 40 H 100/58 L 94 03/14/22 22:35 38.1 C H 105 H 36 H 105/48 L 93 03/14/22 22:07 38.1 C H 105 H 40 H 102/53 L 93 03/14/22 22:05 38.1 C H 105 H 40 H 102/53 L 94 03/14/22 21:50 38.1 C H 107 H 40 H 98/54 L 95 03/14/22 21:33 38.1 C H 106 H 17 98/60 L 95 03/14/22 21:07 38.2 C H 106 H 37 H 98/60 L 94 Pulse Ox 03/15/22 07:27 03/15/22 06:00 96 03/15/22 05:00 03/15/22 04:00 03/15/22 03:50 03/15/22 03:00 03/15/22 02:27 03/15/22 01:27 03/15/22 00:57 03/15/22 00:42 03/15/22 00:21 03/15/22 00:04 03/14/22 23:23 03/14/22 22:35 03/14/22 22:07 03/14/22 22:05 03/14/22 21:50 03/14/22 21:33 03/14/22 21:07 Coding Level of Care Code Critical Care 1st 30-74 mins Diagnoses Admitted to intensive care unit Z78.9 Acute on chronic alcoholic liver disease K70.9 Jaundice R17 Decompensated hepatic cirrhosis K72.90; K74.60 Alcohol abuse F10.10 Hyperbilirubinemia E80.6 Hypomagnesemia E83.42 Time Spent (min) 54
[2022-03-15] MEDS: POTASSIUM CHLORIDE / WTR 10 MEQ/100 ML PLCT IV SCH ×2 (09:59→10:00)
--- NOTE | 2022-03-15 11:24 | Gastroenterology Progress Note ---
Date of Service March 15, 2022 Assessment & Plan (1) Acute on chronic alcoholic liver disease: (2) Jaundice: (3) Alcohol abuse: Plan: Patient being treated for Pneumonia at present with IV abx, though she remains febrile No overt GI bleeding Good response to Transfusion of PRBC Continue Protonix and Octreotide gtts at present No plans for invasive testing at this time Obviously long-term she will need to abstain from all alcohol as it is a known liver toxin, and will preclude her from being placed on Liver Transplant list Would avoid steroids at this time due to active infection Will follow clinical course and make further recommendations as needed. Admission and Anticipated Discharge Date Admission Date: March 12, 2022 Subjective Cross Coverage for [facility] GI: No overnight overt GI bleeding noted. Patient has had a persistent fever overnight. She did have a witnessed light brown soft stool this AM, without any evidence of fresh or old blood. She denies any abdominal pain, nausea, vomiting, or diarrhea at this time. Nursing reports no other issues from GI standpoint. Physical Exam Constitutional: + ill appearing; no acute distress Respiratory: no respiratory distress and no labored breathing Auscultation: + diminished lung sounds (bilateral bases) Cardiovascular: Rate/Rhythm: + tachycardic Gastrointestinal (Abdomen): Percussion/Palpation: abdomen soft and + hepatomegaly; abdomen nontender, no guarding and abdomen not rigid Skin: + jaundice Results & Data Results & Data ([facility]) Vital Signs (Past 12 Hours) Vital Signs Temp Pulse Pulse Resp BP BP Pulse Ox 03/15/22 07:27 113 H 28 H 95 03/15/22 06:00 38.2 C H 112 H 30 H 97/70 L 93 03/15/22 05:00 38.6 C H 110 H 40 H 118/63 95 03/15/22 04:00 39.1 C H 111 H 110 H 53 H 128/59 L 128/59 L 95 03/15/22 03:50 113 H 35 H 94 03/15/22 03:00 39 C H 112 H 42 H 127/77 94 03/15/22 02:27 38.9 C H 113 H 36 H 134/72 96 03/15/22 01:27 38.7 C H 109 H 50 H 126/67 97 03/15/22 00:57 38.4 C H 109 H 50 H 124/68 93 03/15/22 00:42 38.3 C H 106 H 46 H 107/64 99 03/15/22 00:21 38.2 C H 105 H 44 H 104/58 L 96 03/15/22 00:04 105 H 34 H 96 03/14/22 23:23 38.2 C H 106 H 40 H 100/58 L 94 Pulse Ox 03/15/22 07:27 03/15/22 06:00 96 03/15/22 05:00 03/15/22 04:00 03/15/22 03:50 03/15/22 03:00 03/15/22 02:27 03/15/22 01:27 03/15/22 00:57 03/15/22 00:42 03/15/22 00:21 03/15/22 00:04 03/14/22 23:23 PG Care Time/CCT Total # of Minutes Spent Total Time Spent with Patient: Total time spent is greater than 50% in coordination of care (as documented) at patient's floor/unit and/or counseling patient: Coding Level of Care Code 25242 Subseq Hosp Care Lvl 3 Diagnoses Acute on chronic alcoholic liver disease K70.9 Jaundice R17 Alcohol abuse F10.10
[2022-03-15] MEDS ORDERED: POTASSIUM CHLORIDE / WTR 10 MEQ/100 ML PLCT IV SCH (12:00)
[2022-03-15] MEDS ORDERED: LEVALBUTEROL HCL 1.25 MG/3 ML NEB ONE (12:03)
[2022-03-15] MEDS: oxyCODONE HCL IR 5 MG TAB (IMMEDIATE RELEASE) PO PRN ×2 (14:36→22:44)
--- NOTE | 2022-03-15 15:40 | Nephrology Progress Note ---
Date of Service March 15, 2022 Assessment & Plan (1) Acute hyponatremia: Plan: Patient with acute hyponatremia in setting of alcohol intoxication. She had high alcohol levels of 411 mg/dL on admission. Sodium was 124 on admission and up to 132 today. Serum osmolality was 362. We will continue to monitor with sodium check daily. (2) Hypokalemia: Plan: Patient with hypophosphatemia and hypokalemia due to alcohol abuse. Potassium was 3 and phos of 1 today. She is getting kcl and phos supplements. Repeat phos this afternoon (3) Decompensated hepatic cirrhosis: Plan: Patient with decompensated cirrhosis and ascites on physical exam. Patient with abdominal distention and tachypnea. Chest x-ray showing cardiomegaly and pulmonary vascular congestion. Unable to optimize volume status due to hypotension and electrolyte issues Admission and Anticipated Discharge Date Admission Date: March 12, 2022 Subjective Seen for hyponatremia. She was hypotensive and now in ICU. She has SOB on high flow oxygen. Mother at bedside in AM Review of Systems Review of Systems: All other systems were reviewed and negative except as noted in HPI Physical Exam Physical Exam: General exam: Appears comfortable, no acute distress HEENT: Pupils are equal and reactive to light Neck: No JVD, neck is supple trachea is midline Respiratory system: Clear breath sounds bilaterally. Gastrointestinal: Abdomen is soft, mod distended, non tender, bowel sounds are present CVS: tachycardia. No murmurs, rubs or gallops Musculoskeletal: No joint or muscle tenderness Extremities: Non tender, no edema, peripheral pulses are present Neuro: Oriented, no tremors, no focal neurological deficits Skin: No rashes Results & Data ([facility]) Vital Signs (Past 12 Hours) Vital Signs Temp Pulse Pulse Resp BP BP Pulse Ox 03/15/22 14:00 36.8 C 03/15/22 13:00 112 H 28 H 135/77 98 03/15/22 12:49 113 H 24 141/70 H 03/15/22 12:11 113 H 24 97 03/15/22 12:00 38.3 C H 115 H 11 L 162/89 H 99 03/15/22 11:30 38.2 C H 112 H 21 153/94 H 97 03/15/22 11:00 38.2 C H 114 H 34 H 141/75 H 97 03/15/22 10:31 38.2 C H 114 H 38 H 136/83 93 03/15/22 10:00 38.0 C H 112 H 50 H 114/63 96 03/15/22 09:30 38.1 C H 114 H 27 H 143/70 H 93 03/15/22 09:00 38.2 C H 117 H 21 130/74 91 03/15/22 08:30 38.1 C H 113 H 137/66 89 L 03/15/22 08:00 38.1 C H 112 H 45 H 131/71 89 L 03/15/22 07:59 38.1 C H 112 H 45 H 129/69 91 03/15/22 07:27 113 H 28 H 95 03/15/22 07:01 38.3 C H 116 H 13 97/70 L 84 L 03/15/22 07:00 38.3 C H 110 H 14 90 03/15/22 06:01 38.4 C H 106 H 16 132/67 99 03/15/22 06:00 38.4 C H 106 H 112 H 26 H 97/70 L 99 03/15/22 05:00 38.6 C H 110 H 110 H 20 118/63 118/63 95 03/15/22 04:00 39.1 C H 111 H 110 H 53 H 128/59 L 128/59 L 95 03/15/22 03:50 113 H 35 H 94 Pulse Ox 03/15/22 14:00 03/15/22 13:00 03/15/22 12:49 03/15/22 12:11 03/15/22 12:00 03/15/22 11:30 03/15/22 11:00 03/15/22 10:31 03/15/22 10:00 03/15/22 09:30 03/15/22 09:00 03/15/22 08:30 03/15/22 08:00 03/15/22 07:59 03/15/22 07:27 03/15/22 07:01 03/15/22 07:00 03/15/22 06:01 03/15/22 06:00 96 03/15/22 05:00 03/15/22 04:00 03/15/22 03:50 Laboratory Results 03/15/22 05:23 03/15/22 03/15/22 05:23 05:23 WBC 10.79 RBC 2.63 L MCV 101.1 H MCH 35.0 H MCHC 34.6 RDW Std Deviation 73.3 H RDW Coeff of Yasmine 20.0 H Plt Count 52 L D MPV 11.4 H Phosphorus 1.0 L* Albumin 4.2
[2022-03-15 17:18] LABS: Hematocrit (blood only) 25.5 % (37-47); Hemoglobin 8.8 g/dL (12.0-16.0); Mean Corpuscular Hemoglobin 35.2 pg (25-34); Mean Corpuscular Hgb Conc 34.5 g/dL (32-36); Nucleated RBC # (auto) 0.02 K/uL (0-0); Nucleated RBC % (auto) 0.2 %; RDW Coefficient of Variation 21.1 % (11.5-14.5); RDW Standard Deviation 77.1 fL (36.4-46.3)
[2022-03-15 17:25] LABS: Mean Platelet Volume 10.5 fL (7.4-10.4); Platelet Count 52 K/uL (130-400)
[2022-03-15 17:35] LABS: Anisocytosis Present; Basophils # (auto) 0.02 K/uL (0-0.2); Basophils % (auto) 0.2 %; Eosinophils # (auto) 0.14 K/uL (0-0.5); Eosinophils % (auto) 1.5 %; Immature Granulocytes # (auto) 0.07 K/uL (0.00-0.02); Immature Granulocytes % (auto) 0.7 %; Lymphocytes # (auto) 0.68 K/uL (1.2-3.4); Lymphocytes % (auto) 7.1 %; Monocytes # (auto) 0.61 K/uL (0.11-0.59); Monocytes % (auto) 6.4 %; Neutrophils # (auto) 8.08 K/uL (1.4-6.5); Neutrophils % (auto) 84.1 %
[2022-03-15 17:44] LABS: Anion Gap 9 (3-11); Calcium 7.5 mg/dl (8.5-10.1); Carbon Dioxide 22 mmol/L (21-32); Chloride 106 mmol/L (98-107); Glucose 147 mg/dl (70-99(Fasting)); Potassium 3.5 mmol/L (3.5-5.1); Sodium 137 mmol/L (136-145)
[2022-03-15] MEDS ORDERED: STAT IV STA (17:50)
[2022-03-15] MEDS ORDERED: CALCIUM GLUCONATE 10% 1,000 MG in DEXTROSE 5% 50 ML IV ONE (17:50)
[2022-03-15] MEDS ORDERED: POTASSIUM PHOSPHATE 30 MMOL in DEXTROSE 5% 500 ML IV ONE (18:00)
--- NOTE | 2022-03-15 19:34 | Hospitalist Progress Note ---
Date of Service March 15, 2022 Assessment & Plan (1) Decompensated hepatic cirrhosis: Plan: per Dr. Gomez's notes with addendum: Decompensated liver cirrhosis History of alcoholic cirrhosis -- s/p Paracentesis 2 L (03/12/2022) Paracentesis fluid culture: Negative on Ceftriaxone, changed to cefepime day #2 in light of pneumonia GI consulted, does not recommend repeat paracentesis -- Acetylcysteine given x2 days Bilirubin trending up, platelet improving to 50 2K, INR 1.8 after vitamin K given yesterday Discussed with GI service monitor LFTs, INR closely Alcoholic hepatitis, cirrhosis with Madrey's DF score of 37.8 -- Management per above Bibasilar pneumonia, possible aspiration -- Changed ceftriaxone to cefepime day #2 Nebs every 6 hours -- Still having some febrile episodes Monitor closely Anemia, likely secondary to acute blood loss, possible upper GI bleed, secondary to gastritis/peptic ulcer disease/variceal bleeding -- Hemoglobin 6.6 2 units packed RBC ordered Hemoglobin improved to 8 -- Platelet 31 K 1 unit of platelet pheresis ordered Platelet improved to 52 -- INR 2.2, likely coagulopathy secondary to liver cirrhosis Vitamin K 10 mg IV ordered INR improved to 1.8 --GI bleed seems to have resolved Patient requesting diet today Discussed with GI, okay for clear liquids -- Protonix drip, octreotide, cefepime -- Discussed with GI today Hyponatremia secondary to illness --Likely secondary to alcoholism Sodium level improving from 122, 137 --[employer] consulted Discussed with Dr. Benton Hypokalemia, hypophosphatemia -- Replacement ongoing ADD, at baseline --Continue Adderall Hyperglycemia likely prediabetes hemoglobin A1c of 6 from January 2022 past tobacco abuse DVT prophylaxis. SCDs Re: Thrombocytopenia Full code plan of care discussed with patient and her mother Sayra at bedside in detail and at length all questions answered They are understanding, agreeable, comfortable with the plan of care Admission and Anticipated Discharge Date Admission Date: March 12, 2022 Subjective Follow-up for decompensated liver cirrhosis, alcoholic hepatitis, alcohol withdrawal, possible GI bleed, etc. Seen resting in bed with patient's mother Sayra at the bedside visiting Patient alert, conversant, occasionally confused but answers most questions appropriate States she feels okay, minimal generalized abdominal discomfort, but no nausea or vomiting States cough is better, denies shortness of breath, chest pain, palpitations, dizziness No other symptoms Review of Systems Review of Systems: all noted and negative except for above Physical Exam Physical Exam: General- oriented x 2, not in distress, speaks in sentences with no effort or accessory muscle use Appears drowsy, weak Eyes-positive icterus Neck- no JVD Lungs-mild rhonchi bilateral bases, good air entry bilaterally Heart- normal rate, regular rhythm; no murmurs Abdomen- normal bowel sounds, minimally distended, soft, nontender Extremities- no pretibial edema, no calf tenderness Neuro- alert, oriented x 2; no gross focal neurologic deficits Skin- warm & dry Results & Data Results & Data ([facility]) Vital Signs (Past 12 Hours) Vital Signs Temp Pulse Pulse Resp BP Pulse Ox 03/15/22 18:00 37.4 C 115 H 51 H 116/63 94 03/15/22 17:30 112 H 30 H 116/64 91 03/15/22 17:00 141/71 H 03/15/22 16:30 114 H 30 H 117/56 L 91 03/15/22 16:00 116 H 30 H 133/67 89 L 03/15/22 15:30 116 H 30 H 143/67 H 95 03/15/22 15:00 114 H 32 H 148/76 H 95 03/15/22 14:40 110 H 35 H 144/78 H 03/15/22 14:30 113 H 34 H 03/15/22 14:00 36.8 C 113 H 30 H 140/78 93 03/15/22 13:53 112 H 32 H 128/74 03/15/22 13:30 112 H 30 H 97 03/15/22 13:00 112 H 28 H 135/77 98 03/15/22 12:49 113 H 24 141/70 H 03/15/22 12:11 113 H 24 97 03/15/22 12:00 38.3 C H 115 H 11 L 162/89 H 99 03/15/22 11:30 38.2 C H 112 H 21 153/94 H 97 03/15/22 11:00 38.2 C H 114 H 34 H 141/75 H 97 03/15/22 10:31 38.2 C H 114 H 38 H 136/83 93 03/15/22 10:00 38.0 C H 112 H 50 H 114/63 96 03/15/22 09:30 38.1 C H 114 H 27 H 143/70 H 93 03/15/22 09:00 38.2 C H 117 H 21 130/74 91 03/15/22 08:30 38.1 C H 113 H 137/66 89 L 03/15/22 08:00 38.1 C H 109 H 45 H 131/71 89 L 03/15/22 07:59 38.1 C H 112 H 45 H 129/69 91 all noted and reviewed including below
[2022-03-15] MEDS: LORazepam 1 MG in SYRINGE 0.5 ML IV PRN (20:56)
[2022-03-16] MEDS: ALBUMIN 25% 100 mL 25 GM/100 ML VIAL IV SCH (00:18)
[2022-03-16] MEDS: SODIUM CHLORIDE 0.9% 1000ML 1,000 ML IV SCH (00:18)
[2022-03-16] MEDS: IPRATROPIUM BROMIDE NEB SOLN 0.02% 2.5 ML VIAL INH SCH ×4 (00:56→19:25)
[2022-03-16] MEDS: LEVALBUTEROL 1.25MG/0.5ML NEB INH SCH ×4 (00:56→19:25)
[2022-03-16] MEDS: CEFEPIME 2,000 MG in SYRINGE 0 ML IV SCH ×3 (02:11→18:37)
[2022-03-16] MEDS: guaiFENesin SUGAR FREE 200 MG/10 ML UDC PO PRN ×3 (03:02→20:19)
[2022-03-16] MEDS: LORazepam 1 MG in SYRINGE 0.5 ML IV PRN ×2 (03:35→11:25)
[2022-03-16] MEDS: PANTOprazole 40 MG in DEXTROSE 5% 100 ML IV SCH ×5 (03:45→23:04)
[2022-03-16] MEDS: OCTREOTIDE ACETATE 500 MCG in DEXTROSE 5% 100 ML IV SCH ×2 (05:14→15:13)
[2022-03-16] MEDS ORDERED: GABAPENTIN 600 MG TAB PO SCH (06:00)
[2022-03-16] MEDS: oxyCODONE HCL IR 5 MG TAB (IMMEDIATE RELEASE) PO PRN ×3 (07:07→20:48)
[2022-03-16 07:59] LABS: Hematocrit (blood only) 24.3 % (37-47); Hemoglobin 8.2 g/dL (12.0-16.0); Mean Corpuscular Hemoglobin 34.9 pg (25-34); Mean Corpuscular Hgb Conc 33.7 g/dL (32-36); Mean Corpuscular Volume 103.4 fL (80-100); RDW Coefficient of Variation 21.6 % (11.5-14.5); RDW Standard Deviation 79.5 fL (36.4-46.3); Red Blood Count 2.35 M/uL (4.2-5.4)
[2022-03-16 08:03] LABS: Mean Platelet Volume 10.7 fL (7.4-10.4); Platelet Count 49 K/uL (130-400)
[2022-03-16 08:14] LABS: INR 1.7 (0.9-1.1); Prothrombin Time 17.8 Seconds (9.0-12.0)
[2022-03-16 08:26] LABS: Anisocytosis Present; Basophils # (auto) 0.03 K/uL (0-0.2); Basophils % (auto) 0.4 %; Eosinophils # (auto) 0.16 K/uL (0-0.5); Eosinophils % (auto) 1.9 %; Immature Granulocytes # (auto) 0.05 K/uL (0.00-0.02); Immature Granulocytes % (auto) 0.6 %; Lymphocytes # (auto) 0.69 K/uL (1.2-3.4); Lymphocytes % (auto) 8.3 %; Monocytes # (auto) 0.94 K/uL (0.11-0.59); Monocytes % (auto) 11.3 %; Neutrophils # (auto) 6.43 K/uL (1.4-6.5); Neutrophils % (auto) 77.5 %; Polychromasia 1+
[2022-03-16] MEDS: FLUTICASONE/VILANTEROL 200/25MCG 14 PUFFS/INHALER INH SCH (08:59)
[2022-03-16] MEDS: UMECLIDINIUM BROMIDE 62.5MCG/BLISTER 7 PUFFS/INHALER INH SCH (08:59)
[2022-03-16] MEDS: AZELASTINE HCL 0.1% NASAL 200 SPRAYS/27,400 MCG BTL SCH ×3 (08:59→20:20)
[2022-03-16] MEDS: FLUTICASONE PROPIONATE NA SPR 16 GM BTL SCH (08:59)
[2022-03-16] MEDS: FOLIC ACID 1 MG in SYRINGE 9.8 ML IV SCH (09:01)
[2022-03-16] MEDS: THIAMINE HCL 100 MG in SYRINGE 9 ML IV SCH (09:02)
[2022-03-16 09:17] LABS: Blood Urea Nitrogen 6 mg/dl (6-23); Magnesium 1.6 mg/dl (1.7-2.4)
[2022-03-16 09:18] LABS: Alanine Aminotransferase 8 U/L (7-52); Albumin Level 3.9 gm/dl (3.4-5.0); Anion Gap 9 (3-11); Aspartate Aminotransferase 29 U/L (13-39); Calcium 7.7 mg/dl (8.5-10.1); Carbon Dioxide 19 mmol/L (21-32); Chloride 107 mmol/L (98-107); Glucose 147 mg/dl (70-99(Fasting)); Potassium 3.5 mmol/L (3.5-5.1); Sodium 135 mmol/L (136-145); Total Protein 5.4 gm/dl (6.0-8.3)
[2022-03-16] MEDS ORDERED: POTASSIUM PHOS 3 MMOL/1 ML INFUSION IV STA (10:14)
[2022-03-16] MEDS: POT PHOSPHATE MONOBASIC W/ SOD TAB PO SCH ×4 (10:48→20:19)
[2022-03-16] MEDS: MAGNESIUM SULFATE / D5W 1 GM/100 ML BAG IV SCH ×2 (10:51→12:37)
[2022-03-16] MEDS ORDERED: POTASSIUM PHOSPHATE 30 MMOL in SODIUM CHLORIDE 0.9% 500 ML IV ONE (11:00)
[2022-03-16] MEDS ORDERED: XOPENEX/ATROVENT 1.25mg/0.5MG NEB COMBO NEB STA (11:06)
[2022-03-16] MEDS ORDERED: FUROSEMIDE INJ 20 MG/2 ML VIAL IV STA (11:06)
[2022-03-16] MEDS ORDERED: IPRATROPIUM BROMIDE NEB SOLN 0.02% 2.5 ML VIAL INH ONE (11:15)
[2022-03-16] MEDS ORDERED: LEVALBUTEROL 1.25MG/0.5ML NEB INH ONE (11:15)
[2022-03-16] MEDS ORDERED: methylPREDNISolone 60 MG in SYRINGE 0 ML IV ONE (11:15)
--- NOTE | 2022-03-16 11:42 | XRay Report ---
XR chest 1V portable CLINICAL HISTORY: ff up pneumonia, r/o pleural effusion TECHNIQUE: Single frontal radiograph of the chest was obtained. Comparison: Comparison is made to chest radiograph 03/15/2022 FINDINGS: No lines and tubes are seen. The cardiomediastinal silhouette is normal. Lungs are underinflated. Pre viously noted small airspace opacities are again seen. No evidence of pleural effusion or pneumothora x. Old healed rib fractures are seen on the left. IMPRESSION: Lungs are underinflated. Redemonstration of multifocal airspace opacities which may represent pneumon ia. ACT 112: Negative or not required by law. Electronically signed by: Carlos Sullivan M.D. 03/16/2022 11:40 AM
--- NOTE | 2022-03-16 11:42 | Nephrology Progress Note ---
Date of Service March 16, 2022 Assessment & Plan (1) Acute hyponatremia: Plan: Patient with acute hyponatremia in setting of alcohol intoxication. She had high alcohol levels of 411 mg/dL on admission. Sodium was 124 on admission and up to 135 today. Serum osmolality was 362. We will continue to monitor with sodium check daily. -Stop normal saline infusion and recommend getting a chest x-ray. If patient has significant pulmonary congestion, we can again try Lasix 20 mg IV one-time (2) Hypokalemia: Plan: Patient with hypophosphatemia and hypokalemia due to alcohol abuse. Potassium was 3.5 and phos of 1 today. She is getting kcl and phos supplements. Repeat phos this afternoon at 2 PM. If phosphorus is less than to give another 30 mmol of K-Phos (3) Decompensated hepatic cirrhosis: Plan: Patient with decompensated cirrhosis and ascites on physical exam. Patient with abdominal distention and tachypnea. Chest x-ray showing cardiomegaly and pulmonary vascular congestion. Unable to optimize volume status due to hypotension and electrolyte issues Admission and Anticipated Discharge Date Admission Date: March 12, 2022 Subjective Seen for electrolyte problems. He is complaining of shortness of breath and is visibly in respiratory distress. Phosphorus is very low Review of Systems Review of Systems: All other systems were reviewed and negative except as noted in HPI Physical Exam Physical Exam: General exam: Appears comfortable, no acute distress HEENT: Pupils are equal and reactive to light Neck: No JVD, neck is supple trachea is midline Respiratory system: Crackles bilaterally. Gastrointestinal: Abdomen is soft, mod distended, non tender, bowel sounds are present CVS: tachycardia. No murmurs, rubs or gallops Musculoskeletal: No joint or muscle tenderness Extremities: Non tender, no edema, peripheral pulses are present Neuro: Oriented, no tremors, no focal neurological deficits Skin: No rashes Results & Data ([facility]) Vital Signs (Past 12 Hours) Vital Signs Temp Pulse Pulse Pulse Resp BP BP 03/16/22 11:15 112 H 22 03/16/22 10:43 109 H 105/65 03/16/22 08:00 37.6 C H 113 H 24 103/69 03/16/22 07:41 123 H 03/16/22 07:27 118 H 22 03/16/22 03:07 38.1 C H 125 H 18 145/83 H 06/26/22 00:43 115 H Pulse Ox 03/16/22 11:15 95 03/16/22 10:43 97 03/16/22 08:00 95 03/16/22 07:41 03/16/22 07:27 93 03/16/22 03:07 94 03/16/22 00:43 Laboratory Results 03/16/22 07:04 03/15/22 03/15/22 03/16/22 16:25 17:00 07:04 WBC 9.60 8.30 RBC 2.50 L 2.35 L MCV 102.0 H 103.4 H MCH 35.2 H 34.9 H MCHC 34.5 33.7 RDW Std Deviation 77.1 H 79.5 H RDW Coeff of Yasmine 21.1 H 21.6 H Plt Count 52 L 49 L MPV 10.5 H 10.7 H Phosphorus 1.4 L* Albumin 03/16/22 03/16/22 07:04 07:04 WBC RBC MCV MCH MCHC RDW Std Deviation RDW Coeff of Yasmine Plt Count MPV Phosphorus < 1.0 L* Albumin 3.9
[2022-03-16] MEDS ORDERED: LEVALBUTEROL HCL 1.25 MG/3 ML NEB ONE (13:09)
[2022-03-16] MEDS: PENTOXIFYLLINE 400MG EXT REL TAB PO SCH ×2 (14:24→20:19)
[2022-03-16 14:39] LABS: Bilirubin Direct 23.2 mg/dl (0-0.2)
--- NOTE | 2022-03-16 18:56 | Hospitalist Progress Note ---
Date of Service March 16, 2022 Assessment & Plan (1) Decompensated hepatic cirrhosis: Plan: per Dr. Gomez's notes with addendum: Decompensated liver cirrhosis History of alcoholic cirrhosis -- s/p Paracentesis 2 L (03/12/2022) Paracentesis fluid culture: Negative on Ceftriaxone, changed to cefepime day #3 in light of pneumonia GI consulted, does not recommend repeat paracentesis -- Acetylcysteine given x2 days Bilirubin trending up, platelet improving to 50s, INR 1.7 after vitamin K given 2 days ago Discussed with GI service Will start Trental 400 mg 3 times daily monitor LFTs, INR closely Alcoholic hepatitis, cirrhosis with Madrey's DF score of 37.8 -- Management per above Bibasilar pneumonia, possible aspiration -- Changed ceftriaxone to cefepime day #3 Nebs every 6 hours -- Remains on 2 L of oxygen Possible acute exacerbation of asthma secondary to pneumonia Start Solu-Medrol 40 mg every 8 hours Nebs every 6 hours Continue cefepime Anemia, likely secondary to acute blood loss, possible upper GI bleed, secondary to gastritis/peptic ulcer disease/variceal bleeding -- Hemoglobin 6.6 2 units packed RBC ordered Hemoglobin improved to 8 -- Platelet 31 K 1 unit of platelet pheresis ordered Platelet improved to 52 -- INR 2.2, likely coagulopathy secondary to liver cirrhosis Vitamin K 10 mg IV ordered INR improved to 1.7 --GI bleed seems to have resolved Continue clear liquids for now -- Protonix drip, octreotide, cefepime -- Discussed with GI today Hyponatremia secondary to illness --Likely secondary to alcoholism Sodium level improving from 122, 135 --Environmental Scientists consulted Discussed with Dr. Benton Hypokalemia, hypophosphatemia -- Replacement ongoing ADD, at baseline --Continue Adderall Hyperglycemia likely prediabetes hemoglobin A1c of 6 from January 2022 past tobacco abuse DVT prophylaxis. SCDs Re: Thrombocytopenia Full code plan of care discussed with patient and her significant other at bedside in detail and at length all questions answered They are understanding, agreeable, comfortable with the plan of care Admission and Anticipated Discharge Date Admission Date: March 12, 2022 Subjective Follow-up for decompensated liver cirrhosis, alcoholic hepatitis, pneumonia with hypoxia, possible GI bleed, etc. Seen resting in bed, reports some shortness of breath but not in distress Still has some dry cough No abdominal pain, nausea vomiting, fevers or chills No chest pain No other symptoms Review of Systems Review of Systems: all noted and negative except for above Physical Exam Physical Exam: General- oriented x 3, not in distress, speaks in sentences with no effort or accessory muscle use Eyes- icteric Neck- no JVD Lungs-positive wheezing bilaterally Heart- normal rate, regular rhythm; no murmurs Abdomen- normal bowel sounds, nondistended, soft, nontender Extremities- no pretibial edema, no calf tenderness Neuro- alert, oriented x 3; no gross focal neurologic deficits Skin- warm & dry Results & Data Results & Data ([facility]) Vital Signs (Past 12 Hours) Vital Signs Temp Pulse Pulse Pulse Resp BP Pulse Ox 03/16/22 15:49 36.7 C 108 H 24 114/72 93 03/16/22 14:03 108 H 03/16/22 13:25 108 H 24 88 L 03/16/22 11:15 112 H 22 95 03/16/22 10:43 109 H 105/65 97 03/16/22 08:00 37.6 C H 113 H 24 103/69 95 03/16/22 07:41 123 H 03/16/22 07:27 118 H 22 93 all noted and reviewed including below
[2022-03-16] MEDS: methylPREDNISolone 40 MG in SYRINGE 0 ML IV SCH (20:49)
[2022-03-16] MEDS: hydrOXYzine HCl 10 MG TAB PO PRN (23:04)
[2022-03-17] MEDS ORDERED: chlordiazePOXIDE HCl 5 MG CAP PO SCH
[2022-03-17] MEDS: IPRATROPIUM BROMIDE NEB SOLN 0.02% 2.5 ML VIAL INH SCH ×4 (00:21→19:14)
[2022-03-17] MEDS: LEVALBUTEROL 1.25MG/0.5ML NEB INH SCH ×4 (00:21→19:14)
[2022-03-17] MEDS: CEFEPIME 2,000 MG in SYRINGE 0 ML IV SCH ×3 (01:22→17:21)
[2022-03-17] MEDS: OCTREOTIDE ACETATE 500 MCG in DEXTROSE 5% 100 ML IV SCH ×3 (02:09→21:06)
[2022-03-17] MEDS: PANTOprazole 40 MG in DEXTROSE 5% 100 ML IV SCH ×4 (03:55→21:06)
[2022-03-17] MEDS: methylPREDNISolone 40 MG in SYRINGE 0 ML IV SCH ×3 (03:56→18:21)
[2022-03-17 06:58] LABS: INR 1.8 (0.9-1.1); Prothrombin Time 18.8 Seconds (9.0-12.0)
[2022-03-17 07:02] LABS: Hematocrit (blood only) 26.2 % (37-47); Hemoglobin 8.9 g/dL (12.0-16.0); Mean Corpuscular Hemoglobin 34.8 pg (25-34); Mean Corpuscular Volume 102.3 fL (80-100); RDW Coefficient of Variation 20.9 % (11.5-14.5); RDW Standard Deviation 74.8 fL (36.4-46.3); Red Blood Count 2.56 M/uL (4.2-5.4); White Blood Count 7.42 K/uL (4.8-10.8)
[2022-03-17 07:19] LABS: Basophils # (auto) 0.02 K/uL (0-0.2); Basophils % (auto) 0.3 %; Eosinophils # (auto) 0.01 K/uL (0-0.5); Eosinophils % (auto) 0.1 %; Immature Granulocytes # (auto) 0.05 K/uL (0.00-0.02); Immature Granulocytes % (auto) 0.7 %; Lymphocytes # (auto) 0.72 K/uL (1.2-3.4); Lymphocytes % (auto) 9.7 %; Mean Platelet Volume 10.7 fL (7.4-10.4); Monocytes # (auto) 0.35 K/uL (0.11-0.59); Monocytes % (auto) 4.7 %; Neutrophils # (auto) 6.27 K/uL (1.4-6.5); Neutrophils % (auto) 84.5 %; Platelet Count 52 K/uL (130-400)
[2022-03-17 07:34] LABS: Anisocytosis Present; Echinocytes 1+; Polychromasia 1+; Spherocytes Occasional
[2022-03-17 07:57] LABS: Alanine Aminotransferase 10 U/L (7-52); Albumin Level 3.9 gm/dl (3.4-5.0); Anion Gap 11 (3-11); Aspartate Aminotransferase 24 U/L (13-39); Bilirubin,Total 41.3 mg/dl (0.2-1.0); Carbon Dioxide 19 mmol/L (21-32); Chloride 106 mmol/L (98-107); Glucose 217 mg/dl (70-99(Fasting)); Phosphorus 1.6 mg/dl (2.5-4.9); Potassium 3.3 mmol/L (3.5-5.1); Sodium 136 mmol/L (136-145); Total Protein 5.5 gm/dl (6.0-8.3)
[2022-03-17] MEDS ORDERED: POTASSIUM CHLORIDE CRTAB 20 MEQ TABCR PO STA (08:10)
[2022-03-17] MEDS ORDERED: POTASSIUM PHOS 3 MMOL/1 ML INFUSION IV STA (08:10)
[2022-03-17] MEDS: THIAMINE HCL 100 MG in SYRINGE 9 ML IV SCH (08:15)
[2022-03-17] MEDS: FLUTICASONE/VILANTEROL 200/25MCG 14 PUFFS/INHALER INH SCH (08:15)
[2022-03-17] MEDS: FOLIC ACID 1 MG in SYRINGE 9.8 ML IV SCH (08:15)
[2022-03-17] MEDS: UMECLIDINIUM BROMIDE 62.5MCG/BLISTER 7 PUFFS/INHALER INH SCH (08:21)
[2022-03-17] MEDS: AZELASTINE HCL 0.1% NASAL 200 SPRAYS/27,400 MCG BTL SCH ×2 (08:22→20:11)
[2022-03-17] MEDS: FLUTICASONE PROPIONATE NA SPR 16 GM BTL SCH (08:23)
[2022-03-17] MEDS: PENTOXIFYLLINE 400MG EXT REL TAB PO SCH ×3 (08:24→20:13)
[2022-03-17] MEDS: POT PHOSPHATE MONOBASIC W/ SOD TAB PO SCH ×4 (08:24→20:14)
[2022-03-17] MEDS: hydrOXYzine HCl 10 MG TAB PO PRN ×3 (08:28→22:40)
[2022-03-17 08:38] LABS: Bilirubin Direct 24.1 mg/dl (0-0.2)
[2022-03-17] MEDS ORDERED: POTASSIUM PHOSPHATE 30 MMOL in SODIUM CHLORIDE 0.9% 500 ML IV ONE (09:00)
--- NOTE | 2022-03-17 10:19 | Nephrology Progress Note ---
Date of Service March 17, 2022 Assessment & Plan (1) Acute hyponatremia: Plan: Patient with acute hyponatremia in setting of alcohol intoxication. She had high alcohol levels of 411 mg/dL on admission. Sodium was 124 on admission and up to 136 today. Serum osmolality was 362. We will continue to monitor with sodium check daily. Renal will sign off. Please call if additional questions or concerns. (2) Hypokalemia: Plan: Patient with hypophosphatemia and hypokalemia due to alcohol abuse. Potassium was 3.3 and phos of 1.6 today. She is getting kcl and phos supplements. (3) Decompensated hepatic cirrhosis: Plan: Patient with decompensated cirrhosis and ascites on physical exam. Patient with abdominal distention and tachypnea. Chest x-ray showing cardiomegaly and pulmonary vascular congestion. Unable to optimize volume status due to hypotension and electrolyte issues Admission and Anticipated Discharge Date Admission Date: March 12, 2022 Subjective Seen for electrolyte imbalance. She complains of weakness. No shortness of breath Review of Systems Review of Systems: All other systems were reviewed and negative except as noted in HPI Physical Exam Physical Exam: General exam: Appears comfortable, no acute distress HEENT: Pupils are equal and reactive to light Neck: No JVD, neck is supple trachea is midline Respiratory system: Crackles bilaterally. Gastrointestinal: Abdomen is soft, mod distended, non tender, bowel sounds are present CVS: tachycardia. No murmurs, rubs or gallops Musculoskeletal: No joint or muscle tenderness Extremities: Non tender, no edema, peripheral pulses are present Neuro: Oriented, no tremors, no focal neurological deficits Skin: No rashes, deep jaundice Results & Data ([facility]) Vital Signs (Past 12 Hours) Vital Signs Temp Pulse Pulse Resp BP BP Pulse Ox 03/17/22 07:10 92 H 20 95 03/17/22 07:00 37.0 C 93 H 30 H 114/73 91 03/17/22 04:16 36.8 C 98 H 18 105/66 94 03/17/22 00:39 103 H 03/17/22 00:21 82 20 98 03/16/22 22:18 36.7 C 102 H 20 127/76 97 Laboratory Results 03/17/22 06:18 03/16/22 03/17/22 03/17/22 14:00 06:18 06:18 WBC 7.42 RBC 2.56 L MCV 102.3 H MCH 34.8 H MCHC 34.0 RDW Std Deviation 74.8 H RDW Coeff of Yasmine 20.9 H Plt Count 52 L MPV 10.7 H Phosphorus 2.4 L D 1.6 L Albumin 3.9
[2022-03-17] MEDS: oxyCODONE HCL IR 5 MG TAB (IMMEDIATE RELEASE) PO PRN (11:24)
--- NOTE | 2022-03-17 13:43 | XRay Report ---
XR KUB/Abdomen 1 view CLINICAL HISTORY: Abdominal pain TECHNIQUE: 1 view of the abdomen was obtained. Comparison: Comparison is made to chest and abdomen radiographs 03/17/2022 FINDINGS: Lung bases are unremarkable. The osseous structures are grossly unremarkable. Multiple gas-distended loops of small bowel are seen in the abdomen up to 36 mm. Small stool burden is seen. IMPRESSION: Multiple gas-distended loops of small bowel compatible with small bowel obstruction or ileus. ACT 112: Negative or not required by law. Electronically signed by: Carlos Sullivan M.D. 03/17/2022 1:42 PM
[2022-03-17] MEDS ORDERED: ALBUMIN 25% 100 mL 25 GM/100 ML VIAL IV PRN (15:00)
--- NOTE | 2022-03-17 16:21 | Gastroenterology Progress Note ---
Date of Service March 17, 2022 Assessment & Plan (1) Decompensated hepatic cirrhosis: (2) Alcohol abuse: Plan: 37 y/o female with decompensated ETOH cirrhosis, alc hep. HGB remained stable over the weekend, elevated bilirubin and jaundice persists. She is not encep halopathic today; INR improved slightly with Vit K. Seems to have re- accumulated to some ascites today. KUB suggests ileus. - Tap today - Albumin 25 gm after tap if 5 L removed - Continue PPI - can switch to PO BID - Can stop octreotide - CTAP w/ PO contrast to evaluate ileus - Consider stopping narcs - Monitor and document GI output - Continue ABX - Shes on Trental per PCP for alc hep; had completed NAC - She's on Steroids for asthma exac as well - Trend daily MELD labs, CBC, INR - BUN/cr when able Thank you for allowing us to participate in the care of this patient. Please call with any acute changes, questions or concerns. Please see addendum below with additional recommendation from my supervising physician. Admission and Anticipated Discharge Date Admission Date: March 12, 2022 Supervising Physician Co-Signing Physician Notes I performed a history and physical examination of the patient today, including specifically on physical exam - soft abdomen. I have discussed the patient's management with the advanced practitioner. Please refer to the nurse practitioner's note for the documented findings and plan of care. Feeling fine, reports abdominal pain and constipation. KUB with possible ileus. Obtain CT scan abdomen. Subjective Patient seen and examined, chart reviewed. Pt resting in bed - complaining of some abd discomfort and swelling; feels she needs another tap. Last BM was several days ago. Is tolerating a clear liquid diet. No n/v, hematemesis, melena, hematochezia. Over the weekend had no GIB; HGB stable at 8.9. BUn/Cr not able to be done d/t icterus. Review of Systems Review of Systems: All systems reviewed & are unremarkable except as noted in HPI & below Physical Exam Constitutional: ill appearing, jaundiced, icterus, in no acute distress ENMT: external ear and nose normal, oropharynx normal Respiratory: normal respiratory effort, lungs clear to auscultation Cardiovascular: +tachycardic Gastrointestinal (Abdomen): moderate ascites, + BS, diffusely tender, soft, mildly distended Neurologic: mild tremor, no significant asterixis Psychiatric: A+Ox3, euthymic affect Results & Data ([facility]) Vital Signs (Past 12 Hours) Vital Signs Temp Pulse Pulse Resp BP BP Pulse Ox 03/17/22 12:35 95 H 19 94 03/17/22 11:12 36.9 C 94 H 21 156/76 H 94 03/17/22 08:00 98 H 03/17/22 07:10 92 H 20 95 03/17/22 07:00 37.0 C 93 H 30 H 114/73 91 Laboratory Results 03/17/22 03/17/22 03/17/22 Range/Units 06:22 06:18 06:18 WBC 7.42 (4.8-10.8) K/uL RBC 2.56 L (4.2-5.4) M/uL Hgb 8.9 L (12.0-16.0) g/dL Hct 26.2 L (37-47) % MCV 102.3 H (80-100) fL MCH 34.8 H (25-34) pg MCHC 34.0 (32-36) g/dL RDW Std Deviation 74.8 H (36.4-46.3) fL RDW Coeff of Yasmine 20.9 H (11.5-14.5) % Plt Count 52 L (130-400) K/uL MPV 10.7 H (7.4-10.4) fL Immature Gran % (Auto) 0.7 % Neut % (Auto) 84.5 % Lymph % (Auto) 9.7 % [place] % (Auto) 4.7 % Eos % (Auto) 0.1 % Baso % (Auto) 0.3 % Neut # (Auto) 6.27 (1.4-6.5) K/uL Lymph # (Auto) 0.72 L (1.2-3.4) K/uL [place] # (Auto) 0.35 (0.11-0.59) K/uL Eos # (Auto) 0.01 (0-0.5) K/uL Baso # (Auto) 0.02 (0-0.2) K/uL Immature Gran # (Auto) 0.05 H (0.00-0.02) K/uL Polychromasia 1+ Anisocytosis Present Spherocytes Occasional Echinocytes 1+ PT (9.0-12.0) Seconds INR (0.9-1.1) Sodium 136 (136-145) mmol/L Potassium 3.3 L (3.5-5.1) mmol/L Chloride 106 (98-107) mmol/L Carbon Dioxide 19 L (21-32) mmol/L Anion Gap 11 (3-11) BUN TNP Creatinine TNP Est Cr Clr Drug Dosing TNP Est GFR ( Amer) TNP Est GFR (Non-Af Amer) TNP BUN/Creatinine Ratio TNP Glucose 217 H (70-99(Fasting)) mg/dl Calcium 8.0 L (8.5-10.1) mg/dl Phosphorus 1.6 L (2.5-4.9) mg/dl Magnesium TNP Total Bilirubin 41.3 H (0.2-1.0) mg/dl Direct Bilirubin 24.1 H (0-0.2) mg/dl AST 24 (13-39) U/L ALT 10 (7-52) U/L Alkaline Phosphatase TNP Total Protein 5.5 L (6.0-8.3) gm/dl Albumin 3.9 (3.4-5.0) gm/dl Miscellaneous Test Pending Miscellaneous Test 2 Pending Miscellaneous Test 3 Pending Crossmatch 03/17/22 03/14/22 Range/Units 06:18 15:17 WBC (4.8-10.8) K/uL RBC (4.2-5.4) M/uL Hgb (12.0-16.0) g/dL Hct (37-47) % MCV (80-100) fL MCH (25-34) pg MCHC (32-36) g/dL RDW Std Deviation (36.4-46.3) fL RDW Coeff of Yasmine (11.5-14.5) % Plt Count (130-400) K/uL MPV (7.4-10.4) fL Immature Gran % (Auto) % Neut % (Auto) % Lymph % (Auto) % [place] % (Auto) % Eos % (Auto) % Baso % (Auto) % Neut # (Auto) (1.4-6.5) K/uL Lymph # (Auto) (1.2-3.4) K/uL [place] # (Auto) (0.11-0.59) K/uL Eos # (Auto) (0-0.5) K/uL Baso # (Auto) (0-0.2) K/uL Immature Gran # (Auto) (0.00-0.02) K/uL Polychromasia Anisocytosis Spherocytes Echinocytes PT 18.8 H (9.0-12.0) Seconds INR 1.8 H (0.9-1.1) Sodium (136-145) mmol/L Potassium (3.5-5.1) mmol/L Chloride (98-107) mmol/L Carbon Dioxide (21-32) mmol/L Anion Gap (3-11) BUN Creatinine Est Cr Clr Drug Dosing Est GFR ( Amer) Est GFR (Non-Af Amer) BUN/Creatinine Ratio Glucose (70-99(Fasting)) mg/dl Calcium (8.5-10.1) mg/dl Phosphorus (2.5-4.9) mg/dl Magnesium Total Bilirubin (0.2-1.0) mg/dl Direct Bilirubin (0-0.2) mg/dl AST (13-39) U/L ALT (7-52) U/L Alkaline Phosphatase Total Protein (6.0-8.3) gm/dl Albumin (3.4-5.0) gm/dl Miscellaneous Test Miscellaneous Test 2 Miscellaneous Test 3 Crossmatch See Detail Diagnostic Findings KUB: Multiple gas-distended loops of small bowel compatible with small bowel obstruction or ileus.
--- NOTE | 2022-03-17 16:27 | Ultrasound Report ---
PROCEDURE: Ultrasound-Guided Diagnostic/Therapeutic Paracentesis CLINICAL HISTORY: ascites MEDICATIONS: Subcutaneous Lidocaine 2%. PROCEDURE: The procedure itself was explained to the patient carefully. The patient was brought into the IR suite and a time-out was performed. The patient was positioned supine on the table. Preliminar y ultrasound of the abdomen was performed to determine a safe needle entry site. The most appropriat e approach for safe needle entry site was planned and the site for puncture was marked. The right low er quadrant was prepped and draped in the usual sterile fashion. Subcutaneous 2% lidocaine was used f or local anesthesia along the expected needle tract. Under ultrasound-guidance, an 5 [place] Yueh needle-sheath was inserted carefully into the peritoneal space towards the abdominal ascites fluid collection. The needle was removed and the sheath was conn ected to tubing and a vacuum suction device. A total of 2400 cc of serous ascites was aspirated. The sheath was removed and a sterile dressing applied. The patient tolerated the procedure well without i mmediate complications. Sample of ascites was sent for analysis. IMPRESSION: Ultrasound-guided diagnostic/therapeutic paracentesis. Electronically signed by: Carlos Sullivan M.D. 03/17/2022 4:26 PM
--- NOTE | 2022-03-17 18:09 | Hospitalist Progress Note ---
Date of Service March 17, 2022 Assessment & Plan (1) Decompensated hepatic cirrhosis: Plan: per Dr. Gomez's notes with addendum: Decompensated liver cirrhosis History of alcoholic cirrhosis -- s/p Paracentesis 2 L (03/12/2022) Paracentesis fluid culture: Negative on Ceftriaxone, changed to cefepime day #4 in light of pneumonia GI consulted s/p Paracentesis 2 L (03/17/22) -- Acetylcysteine given x2 days Bilirubin trending up, platelet improving to 50s, INR 1.7 after vitamin K given 2 days ago Discussed with GI service started Trental 400 mg 3 times daily (03/16) also on Solumedrol for Asthma exacerbation (03/16) monitor LFTs, INR closely Alcoholic hepatitis, cirrhosis with Madrey's DF score of 37.8 -- Management per above Ileus -- based on KUB -- CT abdomen ordered -- NPO for now minimize Oxy Bibasilar pneumonia, possible aspiration -- Changed ceftriaxone to cefepime day #4 Nebs every 6 hours -- Remains on 2 L of oxygen Possible acute exacerbation of asthma secondary to pneumonia - wheezing improving continue Solu-Medrol 40 mg every 8 hours Nebs every 6 hours Continue cefepime Anemia, likely secondary to acute blood loss, possible upper GI bleed, secondary to gastritis/peptic ulcer disease/variceal bleeding -- Hemoglobin 6.6 2 units packed RBC ordered Hemoglobin improved to 8 -- Platelet 31 K 1 unit of platelet pheresis ordered Platelet improved to 52 -- INR 2.2, likely coagulopathy secondary to liver cirrhosis Vitamin K 10 mg IV ordered INR improved to 1.7 --GI bleed seems to have resolved -- Protonix drip, octreotide, cefepime -- Discussed with GI today Hyponatremia secondary to illness --Likely secondary to alcoholism Sodium level improving from 122, 135 --Plastic Mixer consulted Discussed with Dr. Benton Hypokalemia, hypophosphatemia -- Replacement ongoing ADD, at baseline --Continue Adderall Hyperglycemia likely prediabetes hemoglobin A1c of 6 from January 2022 past tobacco abuse DVT prophylaxis. SCDs Re: Thrombocytopenia Full code plan of care discussed with patient and her significant other at bedside in detail and at length all questions answered They are understanding, agreeable, comfortable with the plan of care Admission and Anticipated Discharge Date Admission Date: March 12, 2022 Subjective ff up for alcoholic hepatitis, etc seen resting in bed, eyes mostly closed but answering questions appropriately states breathing has improved less cough states abdominal pain is also improving no nausea no other symptoms Review of Systems Review of Systems: all noted and negative except for above Physical Exam Physical Exam: General- oriented x 3, not in distress, speaks in sentences with no effort or accessory muscle use Eyes- no icterus Neck- no JVD Lungs- mild rales at the bases no wheezing Heart- normal rate, regular rhythm; no murmurs Abdomen- normal bowel sounds, mildly distended, soft, nontender Extremities- no pretibial edema, no calf tenderness Neuro- alert, oriented x 3; no gross focal neurologic deficits Skin- warm & dry Results & Data Results & Data ([facility]) Vital Signs (Past 12 Hours) Vital Signs Temp Pulse Pulse Resp BP BP Pulse Ox 03/17/22 16:00 101 H 03/17/22 12:35 95 H 19 94 03/17/22 11:12 36.9 C 94 H 21 156/76 H 94 03/17/22 08:00 98 H 03/17/22 07:10 92 H 20 95 03/17/22 07:00 37.0 C 93 H 30 H 114/73 91 all noted and reviewed including below
--- NOTE | 2022-03-17 19:06 | CT Scan Report ---
CT SCAN OF THE ABDOMEN AND PELVIS WITHOUT IV CONTRAST CLINICAL HISTORY: Generalized abdominal pain. Nausea. Bloating. COMPARISON STUDY: Abdominal CT dated 03/12/2022. TECHNIQUE: CT scan of the abdomen and pelvis is performed from the lung bases to the proximal femora. Images are reviewed in the axial, sagittal, and coronal planes. IV contrast was not administered for this examination. Note that the examination is suboptimal without IV contrast. Oral contrast was uti lized. A dose lowering technique was utilized adhering to the principles of ALARA. CT DOSE: 661.98 mGy.cm FINDINGS: Lung bases: The heart is top normal in size noting trace pericardial effusion. There are small pleura l effusions with dependent consolidation. Liver: The unenhanced liver is enlarged, measuring 25.1 cm in length. The liver demonstrates diffusel y diminished attenuation indicating steatosis. There is no intrahepatic biliary ductal dilatation. Gallbladder: The gallbladder is contracted. Gallbladder wall thickening is nonspecific and likely rel ated to adjacent hepatocellular disease. Spleen: The spleen is enlarged measuring 18.1 cm in length. Pancreas: Unremarkable. Adrenal glands: Unremarkable. Kidneys: The unenhanced kidneys are normal in size and without hydronephrosis. There are no renal juani culi identified. There is no evidence of contour deforming renal mass lesion. Abdominal vasculature: The abdominal aorta is normal in course and caliber. Bowel: There is no bowel obstruction. Enteric contrast reaches the distal small bowel. There is mild colonic diverticulosis without CT evidence of acute diverticulitis. The appendix is normal as visual ized. Peritoneum: There is a small volume of abdominopelvic ascites. No intraperitoneal free air is identif ied. There is a fat-containing umbilical hernia. Lymphadenopathy: None. Pelvic viscera: The bladder is decompressed and a Talbot catheter and not well evaluated. The uterus a nd adnexa are normal as visualized. Skeletal structures: No lytic or blastic lesions are seen. IMPRESSION: 1. Hepatomegaly and hepatic steatosis. 2. Splenomegaly and abdominopelvic ascites indicate portal hypertension. 3. Small pleural effusions with dependent consolidation. This could represent atelectasis versus an i nfectious/inflammatory pneumonitis and clinical correlation will be required. 4. No bowel obstruction. 5. Additional findings as above. ACT 112: Negative or not required by law. Electronically signed by: Brodie Gillis M.D. 03/17/2022 7:04 PM
[2022-03-18] MEDS: IPRATROPIUM BROMIDE NEB SOLN 0.02% 2.5 ML VIAL INH SCH ×4 (00:48→19:37)
[2022-03-18] MEDS: LEVALBUTEROL 1.25MG/0.5ML NEB INH SCH ×4 (00:48→19:37)
[2022-03-18] MEDS: CEFEPIME 2,000 MG in SYRINGE 0 ML IV SCH ×3 (01:42→16:37)
[2022-03-18] MEDS: MELATONIN 3 MG TAB PO PRN ×2 (02:03→20:22)
[2022-03-18] MEDS: oxyCODONE HCL IR 5 MG TAB (IMMEDIATE RELEASE) PO PRN ×3 (02:03→21:16)
[2022-03-18] MEDS: PANTOprazole 40 MG in DEXTROSE 5% 100 ML IV SCH ×4 (02:49→15:53)
[2022-03-18] MEDS: methylPREDNISolone 40 MG in SYRINGE 0 ML IV SCH ×3 (03:26→21:15)
[2022-03-18] MEDS: OCTREOTIDE ACETATE 500 MCG in DEXTROSE 5% 100 ML IV SCH (06:31)
[2022-03-18 07:11] LABS: Hematocrit (blood only) 28.1 % (37-47); Hemoglobin 9.5 g/dL (12.0-16.0); Mean Corpuscular Hemoglobin 35.1 pg (25-34); Mean Corpuscular Hgb Conc 33.8 g/dL (32-36); Mean Corpuscular Volume 103.7 fL (80-100); Nucleated RBC # (auto) 0.02 K/uL (0-0); Nucleated RBC % (auto) 0.3 %; RDW Standard Deviation 77.6 fL (36.4-46.3); Red Blood Count 2.71 M/uL (4.2-5.4); White Blood Count 7.02 K/uL (4.8-10.8)
[2022-03-18 07:22] LABS: Mean Platelet Volume 11.1 fL (7.4-10.4); Platelet Count 62 K/uL (130-400)
[2022-03-18 07:30] LABS: INR 1.6 (0.9-1.1); Prothrombin Time 16.4 Seconds (9.0-12.0)
[2022-03-18 08:01] LABS: Alanine Aminotransferase 15 U/L (7-52); Albumin Level 3.9 gm/dl (3.4-5.0); Anion Gap 12 (3-11); Aspartate Aminotransferase 37 U/L (13-39); Bilirubin,Total 41.9 mg/dl (0.2-1.0); Calcium 8.4 mg/dl (8.5-10.1); Carbon Dioxide 20 mmol/L (21-32); Chloride 105 mmol/L (98-107); Glucose 203 mg/dl (70-99(Fasting)); Phosphorus 2.6 mg/dl (2.5-4.9); Potassium 3.4 mmol/L (3.5-5.1); Sodium 137 mmol/L (136-145); Total Protein 5.5 gm/dl (6.0-8.3)
[2022-03-18] MEDS: THIAMINE HCL 100 MG in SYRINGE 9 ML IV SCH (08:02)
[2022-03-18] MEDS: FOLIC ACID 1 MG in SYRINGE 9.8 ML IV SCH (08:02)
[2022-03-18] MEDS: UMECLIDINIUM BROMIDE 62.5MCG/BLISTER 7 PUFFS/INHALER INH SCH (08:02)
[2022-03-18] MEDS: FLUTICASONE/VILANTEROL 200/25MCG 14 PUFFS/INHALER INH SCH (08:03)
[2022-03-18] MEDS: FLUTICASONE PROPIONATE NA SPR 16 GM BTL SCH (08:03)
[2022-03-18] MEDS: POT PHOSPHATE MONOBASIC W/ SOD TAB PO SCH ×4 (08:04→20:22)
[2022-03-18] MEDS: PENTOXIFYLLINE 400MG EXT REL TAB PO SCH ×3 (08:04→20:21)
[2022-03-18] MEDS: AZELASTINE HCL 0.1% NASAL 200 SPRAYS/27,400 MCG BTL SCH ×2 (08:04→20:02)
[2022-03-18] MEDS: hydrOXYzine HCl 10 MG TAB PO PRN ×2 (08:05→20:22)
[2022-03-18 08:35] LABS: Anisocytosis Present; Basophils # (auto) 0.01 K/uL (0-0.2); Basophils % (auto) 0.1 %; Immature Granulocytes # (auto) 0.09 K/uL (0.00-0.02); Immature Granulocytes % (auto) 1.3 %; Lymphocytes # (auto) 0.61 K/uL (1.2-3.4); Lymphocytes % (auto) 8.7 %; Monocytes # (auto) 0.56 K/uL (0.11-0.59); Neutrophils # (auto) 5.75 K/uL (1.4-6.5); Neutrophils % (auto) 81.9 %; Polychromasia 1+
[2022-03-18 09:13] LABS: Bilirubin Direct 23.6 mg/dl (0-0.2)
[2022-03-18] MEDS ORDERED: POTASSIUM CHLORIDE CRTAB 20 MEQ TABCR PO STA (09:22)
--- NOTE | 2022-03-18 14:53 | Gastroenterology Progress Note ---
Date of Service March 18, 2022 Assessment & Plan (1) Decompensated hepatic cirrhosis: (2) Alcohol abuse: Plan: 37 y/o female with decompensated ETOH cirrhosis, alc hep. HGB remained stable over the weekend, elevated bilirubin and jaundice persists. She is not encep halopathic today; INR continues to improve. KUB suggested ileus but CTAP w/ no obstruction. Pt had good BM; feeling better today. 2 L tap yesterday. HGB improved; no s/s GIB. Bili seems to have plateaued. Abd soft. - Continue PPI - can switch to PO BID - Can stop octreotide - Consider avoiding narcs - Monitor and document GI output - Continue ABX - Shes on Trental per PCP for alc hep; had completed NAC - She's on Steroids for asthma exac as well - Trend daily MELD labs, CBC, INR - BUN/cr when able - Paracentesis PRN - Low Na diet < 2 gm daily - Avoid Tylenol > 2 gm daily if using - Strict ETOH avoidance, consider formal help with rehab - Should have OP GI f/u after discharge - GI will sign off, please call with questions Thank you for allowing us to participate in the care of this patient. Please call with any acute changes, questions or concerns. Please see addendum below with additional recommendation from my supervising physician. Admission and Anticipated Discharge Date Admission Date: March 12, 2022 Supervising Physician Co-Signing Physician Notes I performed a history and physical examination of the patient today, including specifically on physical exam - soft abdomen. I have discussed the patient's management with the advanced practitioner. Please refer to the nurse practitioner's note for the documented findings and plan of care. Subjective No acute events overnight. Pt seen resting in bed, eating ice chips. States abd pain is improved; had BM today. She had a 2 L tap yesterday. No melena, hematochezia, hematemesis, CP, SOB. Though Xray suggested ileus, CT w/ no obstruction. Review of Systems Review of Systems: All systems reviewed & are unremarkable except as noted in HPI & below Physical Exam Constitutional: WD/WN, vitals as above chronically ill, jaundice Respiratory: normal respiratory effort, lungs clear to auscultation Cardiovascular: RRR, no murmur, no edema Gastrointestinal (Abdomen): + mildly distended, soft, + BS, nontender Psychiatric: A+Ox3, euthymic affect Results & Data ([facility]) Vital Signs (Past 12 Hours) Vital Signs Temp Pulse Pulse Resp BP BP Pulse Ox 03/18/22 12:29 79 19 96 03/18/22 12:10 36.6 C 89 18 128/84 96 03/18/22 08:00 90 03/18/22 02:55 36.6 C 101 H 16 106/66 93 Laboratory Results 03/18/22 03/18/22 03/18/22 Range/Units 06:15 06:15 06:15 WBC 7.02 (4.8-10.8) K/uL RBC 2.71 L (4.2-5.4) M/uL Hgb 9.5 L (12.0-16.0) g/dL Hct 28.1 L (37-47) % MCV 103.7 H (80-100) fL MCH 35.1 H (25-34) pg MCHC 33.8 (32-36) g/dL RDW Std Deviation 77.6 H (36.4-46.3) fL RDW Coeff of Yasmine 22.0 H (11.5-14.5) % Plt Count 62 L (130-400) K/uL MPV 11.1 H (7.4-10.4) fL Immature Gran % (Auto) 1.3 % Neut % (Auto) 81.9 % Lymph % (Auto) 8.7 % [place] % (Auto) 8.0 % Eos % (Auto) 0.0 % Baso % (Auto) 0.1 % Neut # (Auto) 5.75 (1.4-6.5) K/uL Lymph # (Auto) 0.61 L (1.2-3.4) K/uL [place] # (Auto) 0.56 (0.11-0.59) K/uL Eos # (Auto) 0.00 (0-0.5) K/uL Baso # (Auto) 0.01 (0-0.2) K/uL Immature Gran # (Auto) 0.09 H (0.00-0.02) K/uL Absolute Nucleated RBC 0.02 H (0-0) K/uL Nucleated RBC % (auto) 0.3 % Polychromasia 1+ Anisocytosis Present PT (9.0-12.0) Seconds INR (0.9-1.1) Sodium 137 (136-145) mmol/L Potassium 3.4 L (3.5-5.1) mmol/L Chloride 105 (98-107) mmol/L Carbon Dioxide 20 L (21-32) mmol/L Anion Gap 12 H (3-11) BUN TNP Creatinine TNP Est Cr Clr Drug Dosing TNP Est GFR ( Amer) TNP Est GFR (Non-Af Amer) TNP BUN/Creatinine Ratio TNP Glucose 203 H (70-99(Fasting)) mg/dl Calcium 8.4 L (8.5-10.1) mg/dl Phosphorus 2.6 D (2.5-4.9) mg/dl Magnesium TNP Total Bilirubin 41.9 H (0.2-1.0) mg/dl Direct Bilirubin 23.6 H (0-0.2) mg/dl AST 37 (13-39) U/L ALT 15 (7-52) U/L Alkaline Phosphatase TNP Total Protein 5.5 L (6.0-8.3) gm/dl Albumin 3.9 (3.4-5.0) gm/dl Miscellaneous Test Pending Miscellaneous Test 2 Pending Miscellaneous Test 3 Pending 03/18/22 03/17/22 Range/Units 06:15 06:22 WBC (4.8-10.8) K/uL RBC (4.2-5.4) M/uL Hgb (12.0-16.0) g/dL Hct (37-47) % MCV (80-100) fL MCH (25-34) pg MCHC (32-36) g/dL RDW Std Deviation (36.4-46.3) fL RDW Coeff of Yasmine (11.5-14.5) % Plt Count (130-400) K/uL MPV (7.4-10.4) fL Immature Gran % (Auto) % Neut % (Auto) % Lymph % (Auto) % [place] % (Auto) % Eos % (Auto) % Baso % (Auto) % Neut # (Auto) (1.4-6.5) K/uL Lymph # (Auto) (1.2-3.4) K/uL [place] # (Auto) (0.11-0.59) K/uL Eos # (Auto) (0-0.5) K/uL Baso # (Auto) (0-0.2) K/uL Immature Gran # (Auto) (0.00-0.02) K/uL Absolute Nucleated RBC (0-0) K/uL Nucleated RBC % (auto) % Polychromasia Anisocytosis PT 16.4 H (9.0-12.0) Seconds INR 1.6 H (0.9-1.1) Sodium (136-145) mmol/L Potassium (3.5-5.1) mmol/L Chloride (98-107) mmol/L Carbon Dioxide (21-32) mmol/L Anion Gap (3-11) BUN Creatinine Est Cr Clr Drug Dosing Est GFR ( Amer) Est GFR (Non-Af Amer) BUN/Creatinine Ratio Glucose (70-99(Fasting)) mg/dl Calcium (8.5-10.1) mg/dl Phosphorus (2.5-4.9) mg/dl Magnesium Total Bilirubin (0.2-1.0) mg/dl Direct Bilirubin (0-0.2) mg/dl AST (13-39) U/L ALT (7-52) U/L Alkaline Phosphatase Total Protein (6.0-8.3) gm/dl Albumin (3.4-5.0) gm/dl Miscellaneous Test REPORT Miscellaneous Test 2 REPORT Miscellaneous Test 3 REPORT Diagnostic Findings CTAP: FINDINGS: Lung bases: The heart is top normal in size noting trace pericardial effusion. There are small pleural effusions with dependent consolidation. Liver: The unenhanced liver is enlarged, measuring 25.1 cm in length. The liver demonstrates diffusely diminished attenuation indicating steatosis. There is no intrahepatic biliary ductal dilatation. Gallbladder: The gallbladder is contracted. Gallbladder wall thickening is non specific and likely related to adjacent hepatocellular disease. Spleen: The spleen is enlarged measuring 18.1 cm in length. Pancreas: Unremarkable. Adrenal glands: Unremarkable. Kidneys: The unenhanced kidneys are normal in size and without hydronephrosis. There are no renal calculi identified. There is no evidence of contour deforming renal mass lesion. Abdominal vasculature: The abdominal aorta is normal in course and caliber. Bowel: There is no bowel obstruction. Enteric contrast reaches the distal small bowel. There is mild colonic diverticulosis without CT evidence of acute diverticulitis. The appendix is normal as visualized. Peritoneum: There is a small volume of abdominopelvic ascites. No intraperitoneal free air is identified. There is a fat-containing umbilical hernia. Lymphadenopathy: None. Pelvic viscera: The bladder is decompressed and a Talbot catheter and not well evaluated. The uterus and adnexa are normal as visualized. Skeletal structures: No lytic or blastic lesions are seen. IMPRESSION: 1. Hepatomegaly and hepatic steatosis. 2. Splenomegaly and abdominopelvic ascites indicate portal hypertension. 3. Small pleural effusions with dependent consolidation. This could represent atelectasis versus an infectious/inflammatory pneumonitis and clinical correlation will be required. 4. No bowel obstruction.
--- NOTE | 2022-03-18 15:37 | Hospitalist Progress Note ---
Date of Service March 18, 2022 Assessment & Plan (1) Decompensated hepatic cirrhosis: Plan: per Dr. Gomez's notes with addendum: Decompensated liver cirrhosis History of alcoholic cirrhosis -- s/p Paracentesis 2 L (03/12/2022) Paracentesis fluid culture: Negative on Ceftriaxone, changed to cefepime day #5 in light of pneumonia GI consulted s/p Paracentesis 2 L (03/17/22) -- Acetylcysteine given x2 days Bilirubin trending up--> now staying at 40s, platelet improving to 60s, INR 1.6 Discussed with GI service started Trental 400 mg 3 times daily (03/16) also on Solumedrol for Asthma exacerbation (03/16) -- clinically seems to be improving today monitor LFTs, INR closely Alcoholic hepatitis, cirrhosis -- Management per above Ileus ruled out -- based on KUB -- CT abdomen : no obsrtuction, ileus -- soft diet minimize Oxy Bibasilar pneumonia, possible aspiration -- Changed ceftriaxone to cefepime day #5 Nebs every 6 hours -- Remains on 2 L of oxygen Possible acute exacerbation of asthma secondary to pneumonia - wheezing resolved overall improving taper Solu-Medrol 40 mg to q12h Nebs every 6 hours Continue cefepime Anemia, likely secondary to acute blood loss, possible upper GI bleed, secondary to gastritis/peptic ulcer disease/variceal bleeding -- Hemoglobin 6.6 2 units packed RBC ordered Hemoglobin improved to 9.5 -- Platelet 31 K 1 unit of platelet pheresis ordered Platelet improved to 60k -- INR 2.2, likely coagulopathy secondary to liver cirrhosis Vitamin K 10 mg IV ordered INR improved to 1.6 --GI bleed resolved -- Protonix drip, octreotide--> change to Protonix IV BID continue cefepime -- Discussed with GI today Hyponatremia secondary to illness --Likely secondary to alcoholism Sodium level improving from 122, 135 --Trim Die Maker consulted Discussed with Dr. Benton Hypokalemia, hypophosphatemia -- Replacement ongoing ADD, at baseline --Continue Adderall Hyperglycemia likely prediabetes hemoglobin A1c of 6 from January 2022 past tobacco abuse DVT prophylaxis. SCDs Re: Thrombocytopenia Full code plan of care discussed with patient and her mother Sayra at bedside in detail and at length all questions answered They are understanding, agreeable, comfortable with the plan of care Admission and Anticipated Discharge Date Admission Date: March 12, 2022 Subjective ff up for alcoholic hepatitis, decompensated liver cirrhosis, pneumonia, GI bleed, etc seen resting in bed, comfortable more awake, alert, answers questions appropriately states she feels improved today tolerating soft diet no abdominal pain, nausea, fever no cough, dyspnea no other symptoms Review of Systems Review of Systems: all noted and negative except for above Physical Exam Physical Exam: General- oriented x 3, not in distress, speaks in sentences with no effort or accessory muscle use Eyes- (+) icteric Neck- no JVD Lungs- mild rales at the bases Heart- normal rate, regular rhythm; no murmurs Abdomen- normal bowel sounds, nondistended, soft, no tenderness Extremities- no pretibial edema, no calf tenderness Neuro- alert, oriented x 3; no gross focal neurologic deficits Skin- warm & dry Results & Data Results & Data ([facility]) Vital Signs (Past 12 Hours) Vital Signs Temp Pulse Pulse Resp BP Pulse Ox 03/18/22 12:29 79 19 96 03/18/22 12:10 36.6 C 89 18 128/84 96 03/18/22 08:00 90 all noted and reviewed including below
[2022-03-18] MEDS: PANTOprazole 40 MG in SYRINGE 0 ML IV SCH (20:21)
[2022-03-19] MEDS: IPRATROPIUM BROMIDE NEB SOLN 0.02% 2.5 ML VIAL INH SCH ×4 (00:17→19:29)
[2022-03-19] MEDS: LEVALBUTEROL 1.25MG/0.5ML NEB INH SCH ×4 (00:17→19:29)
[2022-03-19] MEDS: CEFEPIME 2,000 MG in SYRINGE 0 ML IV SCH ×3 (02:52→17:40)
[2022-03-19 06:46] LABS: Anion Gap 8 (3-11); Calcium 8.2 mg/dl (8.5-10.1); Carbon Dioxide 22 mmol/L (21-32); Chloride 107 mmol/L (98-107); Glucose 205 mg/dl (70-99(Fasting)); Phosphorus 2.9 mg/dl (2.5-4.9); Potassium 3.6 mmol/L (3.5-5.1); Sodium 137 mmol/L (136-145)
[2022-03-19] MEDS: oxyCODONE HCL IR 5 MG TAB (IMMEDIATE RELEASE) PO PRN (09:06)
[2022-03-19] MEDS: THIAMINE HCL 100 MG in SYRINGE 9 ML IV SCH (09:07)
[2022-03-19] MEDS: PANTOprazole 40 MG in SYRINGE 0 ML IV SCH (09:07)
[2022-03-19] MEDS: FOLIC ACID 1 MG in SYRINGE 9.8 ML IV SCH (09:07)
[2022-03-19] MEDS: PENTOXIFYLLINE 400MG EXT REL TAB PO SCH ×3 (09:08→20:49)
[2022-03-19] MEDS: UMECLIDINIUM BROMIDE 62.5MCG/BLISTER 7 PUFFS/INHALER INH SCH (09:09)
[2022-03-19] MEDS: POT PHOSPHATE MONOBASIC W/ SOD TAB PO SCH ×4 (09:09→20:48)
[2022-03-19] MEDS: methylPREDNISolone 40 MG in SYRINGE 0 ML IV SCH ×2 (09:09→21:10)
[2022-03-19] MEDS: FLUTICASONE/VILANTEROL 200/25MCG 14 PUFFS/INHALER INH SCH (09:10)
[2022-03-19] MEDS: FLUTICASONE PROPIONATE NA SPR 16 GM BTL SCH (09:11)
[2022-03-19] MEDS: AZELASTINE HCL 0.1% NASAL 200 SPRAYS/27,400 MCG BTL SCH ×2 (09:11→20:17)
[2022-03-19] MEDS ORDERED: ONDANSETRON INJ 2 MG/ML 2 ML VIAL ONE (18:27)
[2022-03-19] MEDS: LORazepam 0.5 MG TAB PO PRN (18:29)
[2022-03-19] MEDS: PANTOprazole 40 MG TAB PO SCH (20:45)
[2022-03-19] MEDS: MELATONIN 3 MG TAB PO PRN (20:47)
[2022-03-19] MEDS: hydrOXYzine HCl 10 MG TAB PO PRN (20:50)
--- NOTE | 2022-03-19 22:51 | Hospitalist Progress Note ---
Date of Service March 19, 2022 Assessment & Plan (1) Decompensated hepatic cirrhosis: Plan: Decompensated liver cirrhosis History of alcoholic cirrhosis -- s/p Paracentesis 2 L (03/12/2022) Paracentesis fluid culture: Negative on Ceftriaxone, changed to cefepime day #5 in light of pneumonia GI consulted s/p Paracentesis 2 L (03/17/22) -- Acetylcysteine given x2 days Bilirubin trending up--> now staying at 40s, platelet improving to 60s, INR 1.6 Discussed with GI service started Trental 400 mg 3 times daily (03/16) also on Solumedrol for Asthma exacerbation (03/16) -- Will consider for therapeutic paracentesis possible in am Alcoholic hepatitis, cirrhosis -- Management per above Ileus ruled out -- based on KUB -- CT abdomen : no obsrtuction, ileus -- soft diet minimize Oxy Bibasilar pneumonia, possible aspiration -- Changed ceftriaxone to cefepime day #5 Nebs every 6 hours -- Remains on 2 L of oxygen Possible acute exacerbation of asthma secondary to pneumonia - wheezing resolved overall improving Currently on IV Solu-Medrol 40 mg to q12h, will transition to PO prednisone Nebs every 6 hours Continue cefepime Anemia, likely secondary to acute blood loss, possible upper GI bleed, secondary to gastritis/peptic ulcer disease/variceal bleeding -- Hemoglobin 6.6 Received 2 units packed RBC given Hemoglobin improved to 9.5 -- Platelet 31 K received 1 unit of platelet pheresis given Platelet improved to 62k -- INR 2.2, likely coagulopathy secondary to liver cirrhosis Vitamin K 10 mg IV ordered INR improved to 1.6 --GI bleed resolved -- Protonix drip, octreotide--> change to Protonix IV BID continue cefepime -- Discussed with GI today Hyponatremia secondary to illness --Likely secondary to alcoholism Sodium level improving from 122, 135 --Visor Installer consulted Discussed with Dr. Benton Hypokalemia, hypophosphatemia -- Replacement ongoing ADD, at baseline --Continue Adderall Hyperglycemia likely prediabetes hemoglobin A1c of 6 from January 2022 past tobacco abuse DVT prophylaxis. SCDs Re: Thrombocytopenia Full code Admission and Anticipated Discharge Date Admission Date: March 12, 2022 Subjective Pt was seen and examined for follow up of alcoholic hepatitis, decompensated liver cirrhosis, pneumonia, GI bleed Lying in bed with no acute distress Pt said that she feels her abdomen started to full again Denies any chest pain, palpitation, dizziness and SOB Review of Systems Review of Systems: All systems reviewed & are unremarkable except as noted in Subjective Physical Exam Physical Exam: General- +icteric Head- atraumatic Eyes- PERRL, EOMI, ENT- oropharynx clear Neck- supple, no JVD Lungs- clear to auscultation Heart- regular rhythm; no murmur Abdomen- normal bowel sounds, soft, +ascetis Extremities- no calf tenderness Neuro- alert, oriented x 3; PERRL, EOMI; no facial palsy; no dysarthria Skin- warm & dry Results & Data Results & [facility] ([facility]) Vital Signs (Past 12 Hours) Vital Signs Temp Pulse Resp BP Pulse Ox 03/19/22 19:30 94 H 18 92 03/19/22 19:19 36.9 C 89 18 109/71 91 03/19/22 13:41 97 H 20 94 03/19/22 11:04 37.1 C 88 17 118/75 94
[2022-03-20] MEDS: LEVALBUTEROL 1.25MG/0.5ML NEB INH SCH ×4 (00:14→19:33)
[2022-03-20] MEDS: IPRATROPIUM BROMIDE NEB SOLN 0.02% 2.5 ML VIAL INH SCH ×4 (00:14→19:33)
[2022-03-20] MEDS: oxyCODONE HCL IR 5 MG TAB (IMMEDIATE RELEASE) PO PRN ×3 (01:15→21:38)
[2022-03-20] MEDS: CEFEPIME 2,000 MG in SYRINGE 0 ML IV SCH ×3 (01:15→17:32)
[2022-03-20] MEDS: LORazepam 0.5 MG TAB PO PRN ×3 (03:28→20:07)
[2022-03-20] MEDS: PENTOXIFYLLINE 400MG EXT REL TAB PO SCH ×3 (08:06→20:08)
[2022-03-20] MEDS: PANTOprazole 40 MG TAB PO SCH ×2 (08:06→20:08)
[2022-03-20] MEDS: POT PHOSPHATE MONOBASIC W/ SOD TAB PO SCH ×4 (08:06→20:08)
[2022-03-20] MEDS: FOLIC ACID 1 MG in SYRINGE 9.8 ML IV SCH (08:07)
[2022-03-20] MEDS: THIAMINE HCL 100 MG in SYRINGE 9 ML IV SCH (08:07)
[2022-03-20] MEDS: FLUTICASONE/VILANTEROL 200/25MCG 14 PUFFS/INHALER INH SCH (08:07)
[2022-03-20] MEDS: FLUTICASONE PROPIONATE NA SPR 16 GM BTL SCH (08:21)
[2022-03-20] MEDS: AZELASTINE HCL 0.1% NASAL 200 SPRAYS/27,400 MCG BTL SCH ×2 (08:21→20:09)
[2022-03-20] MEDS: UMECLIDINIUM BROMIDE 62.5MCG/BLISTER 7 PUFFS/INHALER INH SCH (10:21)
[2022-03-20] MEDS: predniSONE 20 MG TAB PO SCH (10:22)
[2022-03-20 11:09] LABS: Alanine Aminotransferase 26 U/L (7-52); Albumin Globulin Ratio 2.3 (0.9-2); Albumin Level 3.4 gm/dl (3.4-5.0); Aspartate Aminotransferase 41 U/L (13-39); Bilirubin,Total 32.1 mg/dl (0.2-1.0); Calcium 8.5 mg/dl (8.5-10.1); Carbon Dioxide 20 mmol/L (21-32); Chloride 108 mmol/L (98-107); Globulin 1.5 gm/dl (2.5-4.0); Glucose 183 mg/dl (70-99(Fasting)); Sodium 138 mmol/L (136-145); Total Protein 4.9 gm/dl (6.0-8.3)
[2022-03-20 11:13] LABS: Anion Gap 10 (3-11)
--- NOTE | 2022-03-20 12:19 | Ultrasound Report ---
PARACENTESIS UNDER ULTRASOUND GUIDANCE CLINICAL HISTORY: Cirrhosis and ascites. COMPARISON STUDY: Abdominal CT dated 03/17/2022. PROCEDURE: The risks, benefits, and alternatives to the procedure were discussed with the patient who voiced understanding. Written informed consent was obtained. Following real-time ultrasound localiza tion of a suitable pocket of fluid in the left lower quadrant, the abdomen was prepped and draped in the usual sterile fashion. The skin and soft tissues were anesthetized with 1% lidocaine. The sheathe d paracentesis needle was inserted and approximately 2.7 liters of dark ascitic fluid was removed by vacuum suction. The procedure was well tolerated and without immediate complication. The patient left the department in satisfactory condition. IMPRESSION: Successful ultrasound-guided paracentesis with removal of approximately 2.7 liters of asc itic fluid. ACT 112: Negative or not required by law. Electronically signed by: Brodie Gillis M.D. 03/20/2022 12:18 PM
[2022-03-20] MEDS ORDERED: ALBUMIN 25% 100 mL 25 GM/100 ML VIAL IV ONE (12:30)
[2022-03-20] MEDS: hydrOXYzine HCl 10 MG TAB PO PRN (17:32)
--- NOTE | 2022-03-20 19:23 | Hospitalist Progress Note ---
Date of Service March 20, 2022 Assessment & Plan (1) Decompensated hepatic cirrhosis: Plan: Decompensated liver cirrhosis History of alcoholic Hepatitis/ cirrhosis S/P Paracentesis 2 L (03/12/2022), 2 L (03/17/22)and 2.5 on( 03/20/22) ascites fluid removed Albumin administered Paracentesis fluid culture: Negative She was on Ceftriaxone, changed to cefepime in light of pneumonia GI consulted Acetylcysteine given x2 days Bilirubin trending down from 41.9 to 32.1 Continue Trental 400 mg 3 times daily (03/16) Counseling on alcohol cessation Discussed about inpatient alcohol rehab, but pt wants to go home first then she would arrange for alcohol rehab Advised pt that it is easy to transition to alcohol rehab after discharge from the hospital, but pt is not interested about the transition Ileus ruled out -- based on KUB -- CT abdomen : no obsrtuction, ileus -- soft diet minimize Oxy Bibasilar pneumonia, possible aspiration -- Changed ceftriaxone to cefepime, will complete Nebs every 6 hours -- Remains on 2 L of oxygen Possible acute exacerbation of asthma secondary to pneumonia - wheezing resolved overall improving Currently on IV Solu-Medrol 40 mg to q12h, will transition to PO prednisone Nebs every 6 hours Continue cefepime Anemia, likely secondary to acute blood loss, possible upper GI bleed, secondary to gastritis/peptic ulcer disease/variceal bleeding -- Hemoglobin 6.6 Received 2 units packed RBC given Hemoglobin improved to 9.5 -- Platelet 31 K received 1 unit of platelet pheresis given Platelet improved to 62k -- INR 2.2, likely coagulopathy secondary to liver cirrhosis Vitamin K 10 mg IV ordered INR improved to 1.6 --GI bleed resolved -- Protonix drip, octreotide--> change to Protonix IV BID continue cefepime -- Discussed with GI today Hyponatremia secondary to illness --Likely secondary to alcoholism Sodium level improving from 122, 135 --Plant Equipment Engineer consulted Discussed with Dr. Benton Hypokalemia, hypophosphatemia -- Replacement ongoing ADD, at baseline --Continue Adderall Hyperglycemia likely prediabetes hemoglobin A1c of 6 from January 2022 past tobacco abuse DVT prophylaxis. SCDs Re: Thrombocytopenia Full code Admission and Anticipated Discharge Date Admission Date: March 12, 2022 Subjective Pt was seen and examined for follow up of alcoholic hepatitis, decompensated liver cirrhosis, pneumonia, GI bleed Lying in bed with no acute distress complaint on abdominal pain s/p paracentesis this morning where 2.5L ascites fluid removed She said that her abdomen feels less distended after the paracentesis She does not want to go straight to rehab upon discharge from the hospital. She wants to go home first Denies any chest pain, palpitation, dizziness and SOB Review of Systems Review of Systems: All systems reviewed & are unremarkable except as noted in Subjective Physical Exam Physical Exam: General- +icteric Head- atraumatic Eyes- PERRL, EOMI, ENT- oropharynx clear Neck- supple, no JVD Lungs- clear to auscultation Heart- regular rhythm; no murmur Abdomen- normal bowel sounds, soft, +ascites Extremities- no calf tenderness Neuro- alert, oriented x 3; PERRL, EOMI; no facial palsy; no dysarthria Skin- warm & dry, jaundice Results & Data Results & Data ([facility]) Vital Signs (Past 12 Hours) Vital Signs Temp Pulse Pulse Resp BP Pulse Ox 03/20/22 15:55 37.0 C 100 H 19 95/59 L 91 03/20/22 14:53 102 H 03/20/22 13:39 105 H 108/65 03/20/22 13:13 95/63 L 03/20/22 12:55 36.7 C 101 H 18 83/55 L 93 03/20/22 12:32 89 19 98 03/20/22 08:13 36.8 C 98 H 19 112/75 94
[2022-03-20] MEDS: MELATONIN 3 MG TAB PO PRN (21:38)
[2022-03-21] MEDS: IPRATROPIUM BROMIDE NEB SOLN 0.02% 2.5 ML VIAL INH SCH (00:48)
[2022-03-21] MEDS: LEVALBUTEROL 1.25MG/0.5ML NEB INH SCH (00:48)
[2022-03-21] MEDS: CEFEPIME 2,000 MG in SYRINGE 0 ML IV SCH ×2 (02:44→09:04)
[2022-03-21] MEDS ORDERED: XOPENEX/ATROVENT 1.25mg/0.5MG NEB COMBO NEB PRN (04:43)
[2022-03-21] MEDS ORDERED: LEVALBUTEROL 1.25MG/0.5ML NEB INH PRN (04:45)
[2022-03-21] MEDS ORDERED: IPRATROPIUM BROMIDE NEB SOLN 0.02% 2.5 ML VIAL INH PRN (04:45)
[2022-03-21] MEDS: LORazepam 0.5 MG TAB PO PRN ×3 (04:53→21:09)
[2022-03-21 06:54] LABS: Hematocrit (blood only) 26.8 % (37-47); Hemoglobin 9.2 g/dL (12.0-16.0); Mean Corpuscular Hemoglobin 35.7 pg (25-34); Mean Corpuscular Hgb Conc 34.3 g/dL (32-36); Mean Corpuscular Volume 103.9 fL (80-100); Nucleated RBC # (auto) 0.04 K/uL (0-0); Nucleated RBC % (auto) 0.4 %; RDW Coefficient of Variation 22.9 % (11.5-14.5); RDW Standard Deviation 86.1 fL (36.4-46.3); Red Blood Count 2.58 M/uL (4.2-5.4); White Blood Count 10.63 K/uL (4.8-10.8)
[2022-03-21 07:20] LABS: Platelet Count 61 K/uL (130-400)
[2022-03-21 07:36] LABS: Alkaline Phosphatase 124 U/L (34-104); Aspartate Aminotransferase 42 U/L (13-39); Blood Urea Nitrogen 9 mg/dl (6-23); Potassium 2.8 mmol/L (3.5-5.1)
[2022-03-21 07:37] LABS: Creatinine Clr Calc Pharmacy 93.1 ml/min; Est GFR (African American) 114.2 ml/min; Est GFR (Non-African American) 98.5 ml/min
[2022-03-21 07:38] LABS: Alanine Aminotransferase 26 U/L (7-52); Albumin Globulin Ratio 2.1 (0.9-2); Albumin Level 3.3 gm/dl (3.4-5.0); Anion Gap 11 (3-11); Bilirubin,Total 26.5 mg/dl (0.2-1.0); Calcium 7.8 mg/dl (8.5-10.1); Carbon Dioxide 19 mmol/L (21-32); Chloride 106 mmol/L (98-107); Globulin 1.6 gm/dl (2.5-4.0); Glucose 123 mg/dl (70-99(Fasting)); Sodium 136 mmol/L (136-145); Total Protein 4.9 gm/dl (6.0-8.3)
[2022-03-21] MEDS: oxyCODONE HCL IR 5 MG TAB (IMMEDIATE RELEASE) PO PRN ×3 (07:38→22:01)
[2022-03-21] MEDS: FLUTICASONE PROPIONATE NA SPR 16 GM BTL SCH (08:03)
[2022-03-21] MEDS: AZELASTINE HCL 0.1% NASAL 200 SPRAYS/27,400 MCG BTL SCH ×2 (08:03→21:06)
[2022-03-21] MEDS: UMECLIDINIUM BROMIDE 62.5MCG/BLISTER 7 PUFFS/INHALER INH SCH (08:04)
[2022-03-21] MEDS: PANTOprazole 40 MG TAB PO SCH ×2 (08:04→21:07)
[2022-03-21] MEDS: THIAMINE HCL 100 MG in SYRINGE 9 ML IV SCH (08:04)
[2022-03-21] MEDS: FLUTICASONE/VILANTEROL 200/25MCG 14 PUFFS/INHALER INH SCH (08:04)
[2022-03-21] MEDS: PENTOXIFYLLINE 400MG EXT REL TAB PO SCH ×3 (08:05→21:08)
[2022-03-21] MEDS: POT PHOSPHATE MONOBASIC W/ SOD TAB PO SCH ×4 (08:05→21:08)
[2022-03-21] MEDS: predniSONE 20 MG TAB PO SCH (08:06)
[2022-03-21] MEDS: ondansetron HCL 6 MG in DEXTROSE 5% 50 ML IV PRN ×2 (08:08→18:47)
[2022-03-21] MEDS: hydrOXYzine HCl 10 MG TAB PO PRN (08:33)
[2022-03-21] MEDS ORDERED: POTASSIUM CHLORIDE CRTAB 20 MEQ TABCR PO STA (08:42)
[2022-03-21] MEDS: FOLIC ACID 1 MG in SYRINGE 9.8 ML IV SCH (09:05)
[2022-03-21] MEDS: POTASSIUM CHLORIDE / WTR 10 MEQ/100 ML PLCT IV SCH ×3 (09:05→12:10)
[2022-03-21] MEDS: MELATONIN 3 MG TAB PO PRN (21:07)
[2022-03-21 21:55] LABS: Hematocrit (blood only) 26.7 % (37-47); Hemoglobin 9.2 g/dL (12.0-16.0); Mean Corpuscular Hemoglobin 35.8 pg (25-34); Mean Corpuscular Hgb Conc 34.5 g/dL (32-36); Mean Corpuscular Volume 103.9 fL (80-100); RDW Coefficient of Variation 23.4 % (11.5-14.5); Red Blood Count 2.57 M/uL (4.2-5.4); White Blood Count 14.88 K/uL (4.8-10.8)
[2022-03-21 22:27] LABS: Anisocytosis Present; Basophils # (auto) 0.01 K/uL (0-0.2); Basophils % (auto) 0.1 %; Eosinophils # (auto) 0.02 K/uL (0-0.5); Eosinophils % (auto) 0.1 %; Immature Granulocytes # (auto) 0.11 K/uL (0.00-0.02); Immature Granulocytes % (auto) 0.7 %; Lymphocytes # (auto) 0.47 K/uL (1.2-3.4); Lymphocytes % (auto) 3.2 %; Mean Platelet Volume 11.3 fL (7.4-10.4); Monocytes # (auto) 0.57 K/uL (0.11-0.59); Monocytes % (auto) 3.8 %; Neutrophils % (auto) 92.1 %; Platelet Count 62 K/uL (130-400); Platelet Estimate Decreased (Normal); Polychromasia 1+
--- NOTE | 2022-03-21 22:50 | Hospitalist Progress Note ---
Date of Service March 21, 2022 Assessment & Plan (1) Decompensated hepatic cirrhosis: Plan: Decompensated liver cirrhosis History of alcoholic Hepatitis/ cirrhosis S/P Paracentesis 2 L (03/12/2022), 2 L (03/17/22)and 2.5 on( 03/20/22) ascites fluid removed Albumin administered Paracentesis fluid culture: Negative She was on Ceftriaxone, changed to cefepime in light of pneumonia GI consulted Acetylcysteine given x2 days Bilirubin trending down from 41.9 to 32.1 Continue Trental 400 mg 3 times daily (03/16) Counseling on alcohol cessation Discussed about inpatient alcohol rehab, but pt wants to go home first then she would arrange for alcohol rehab Advised pt that it is easy to transition to alcohol rehab after discharge from the hospital, but pt is not interested about the transition Ileus ruled out -- based on KUB -- CT abdomen : no obsrtuction, ileus -- soft diet minimize Oxy Bibasilar pneumonia, possible aspiration -- Changed ceftriaxone to cefepime, will complete Nebs every 6 hours -- Remains on 2 L of oxygen Possible acute exacerbation of asthma secondary to pneumonia - wheezing resolved overall improving Currently on IV Solu-Medrol 40 mg to q12h, will transition to PO prednisone Nebs every 6 hours Continue cefepime Anemia, likely secondary to acute blood loss, possible upper GI bleed, secondary to gastritis/peptic ulcer disease/variceal bleeding -- Hemoglobin 6.6 Received 2 units packed RBC given Hemoglobin improved to 9.5 -- Platelet 31 K received 1 unit of platelet pheresis given Platelet improved to 62k -- INR 2.2, likely coagulopathy secondary to liver cirrhosis Vitamin K 10 mg IV ordered INR improved to 1.6 --GI bleed resolved -- Protonix drip, octreotide--> change to Protonix IV BID continue cefepime -- Discussed with GI today Hyponatremia secondary to illness --Likely secondary to alcoholism Sodium level improving from 122, 135 --Blasting Machine Operator consulted Discussed with Dr. Benton Hypokalemia Hypophosphatemia K 2.8 today K replaced ADD, at baseline --Continue Adderall Hyperglycemia likely prediabetes hemoglobin A1c of 6 from January 2022 past tobacco abuse DVT prophylaxis. SCDs Re: Thrombocytopenia Full code Admission and Anticipated Discharge Date Admission Date: March 12, 2022 Subjective Pt was seen and examined for follow up of alcoholic hepatitis, decompensated liver cirrhosis, pneumonia, GI bleed Lying in bed with no acute distress with partner at bedside She said that her abdomen feels less distended after the paracentesis she is more awake today Denies any chest pain, palpitation, dizziness and SOB Review of Systems Review of Systems: All systems reviewed & are unremarkable except as noted in Subjective Physical Exam Physical Exam: General- +icteric Head- atraumatic Eyes- PERRL, EOMI, ENT- oropharynx clear Neck- supple, no JVD Lungs- clear to auscultation Heart- regular rhythm; no murmur Abdomen- normal bowel sounds, soft, +ascites Extremities- no calf tenderness Neuro- alert, oriented x 3; PERRL, EOMI; no facial palsy; no dysarthria Skin- warm & dry, jaundice Results & Data Results & Data ([facility]) Vital Signs (Past 12 Hours) Vital Signs Temp Pulse Pulse Resp BP BP Pulse Ox 03/21/22 19:30 36.8 C 88 18 104/68 94 03/21/22 15:38 36.7 C 93 H 18 97/57 L 95 03/21/22 11:22 37.1 C 102 H 20 98/62 L 93 03/21/22 11:13 96 H
[2022-03-22] MEDS: hydrOXYzine HCl 10 MG TAB PO PRN ×3 (02:56→22:19)
[2022-03-22 07:49] LABS: Hematocrit (blood only) 26.4 % (37-47); Mean Corpuscular Hemoglobin 35.7 pg (25-34); Mean Corpuscular Hgb Conc 34.1 g/dL (32-36); Mean Corpuscular Volume 104.8 fL (80-100); Nucleated RBC # (auto) 0.02 K/uL (0-0); Nucleated RBC % (auto) 0.1 %; RDW Coefficient of Variation 23.4 % (11.5-14.5); RDW Standard Deviation 88.7 fL (36.4-46.3); Red Blood Count 2.52 M/uL (4.2-5.4); White Blood Count 13.45 K/uL (4.8-10.8)
[2022-03-22 08:00] LABS: Platelet Count 68 K/uL (130-400)
[2022-03-22 08:12] LABS: Alanine Aminotransferase 25 U/L (7-52); Albumin Globulin Ratio 1.9 (0.9-2); Albumin Level 3.1 gm/dl (3.4-5.0); Anion Gap 9 (3-11); Aspartate Aminotransferase 37 U/L (13-39); Bilirubin,Total 27.1 mg/dl (0.2-1.0); Calcium 7.7 mg/dl (8.5-10.1); Carbon Dioxide 21 mmol/L (21-32); Chloride 107 mmol/L (98-107); Globulin 1.6 gm/dl (2.5-4.0); Glucose 79 mg/dl (70-99(Fasting)); Phosphorus 2.4 mg/dl (2.5-4.9); Potassium 2.7 mmol/L (3.5-5.1); Sodium 137 mmol/L (136-145); Total Protein 4.7 gm/dl (6.0-8.3)
[2022-03-22] MEDS: ondansetron HCL 6 MG in DEXTROSE 5% 50 ML IV PRN (08:20)
[2022-03-22] MEDS: AZELASTINE HCL 0.1% NASAL 200 SPRAYS/27,400 MCG BTL SCH ×2 (08:54→22:21)
[2022-03-22] MEDS: FLUTICASONE/VILANTEROL 200/25MCG 14 PUFFS/INHALER INH SCH (08:54)
[2022-03-22] MEDS: FLUTICASONE PROPIONATE NA SPR 16 GM BTL SCH (08:54)
[2022-03-22] MEDS: FOLIC ACID 1 MG in SYRINGE 9.8 ML IV SCH (08:54)
[2022-03-22] MEDS: LORazepam 0.5 MG TAB PO PRN ×2 (08:54→17:38)
[2022-03-22] MEDS: THIAMINE HCL 100 MG in SYRINGE 9 ML IV SCH (08:55)
[2022-03-22] MEDS: PENTOXIFYLLINE 400MG EXT REL TAB PO SCH ×3 (08:55→22:20)
[2022-03-22] MEDS: predniSONE 20 MG TAB PO SCH (08:55)
[2022-03-22] MEDS: POT PHOSPHATE MONOBASIC W/ SOD TAB PO SCH ×4 (08:55→22:19)
[2022-03-22] MEDS: PANTOprazole 40 MG TAB PO SCH ×2 (08:56→22:20)
[2022-03-22] MEDS: UMECLIDINIUM BROMIDE 62.5MCG/BLISTER 7 PUFFS/INHALER INH SCH (08:56)
[2022-03-22] MEDS: oxyCODONE HCL IR 5 MG TAB (IMMEDIATE RELEASE) PO PRN ×2 (10:35→19:24)
[2022-03-22] MEDS ORDERED: POTASSIUM CHLORIDE CRTAB 20 MEQ TABCR PO STA (11:39)
[2022-03-22] MEDS: POTASSIUM CHLORIDE / WTR 10 MEQ/100 ML PLCT IV SCH ×4 (11:59→15:38)
[2022-03-22 20:34] LABS: Phosphorus 1.6 mg/dl (2.5-4.9); Potassium 3.7 mmol/L (3.5-5.1)
[2022-03-22] MEDS ORDERED: POTASSIUM PHOS 3 MMOL/1 ML INFUSION IV STA (21:07)
[2022-03-22] MEDS ORDERED: POTASSIUM PHOSPHATE 21 MMOL in SODIUM CHLORIDE 0.9% 500 ML IV ONE (21:45)
[2022-03-22] MEDS: MELATONIN 3 MG TAB PO PRN (22:19)
--- NOTE | 2022-03-22 23:54 | Hospitalist Progress Note ---
Date of Service March 22, 2022 Assessment & Plan (1) Decompensated hepatic cirrhosis: Plan: Decompensated liver cirrhosis History of alcoholic Hepatitis/ cirrhosis S/P Paracentesis 2 L (03/12/2022), 2 L (03/17/22)and 2.5 on( 03/20/22) ascites fluid removed Albumin administered Paracentesis fluid culture: Negative She was on Ceftriaxone, changed to cefepime in light of pneumonia GI consulted Acetylcysteine given x2 days Bilirubin trending down from 41.9 to 32.1 Continue Trental 400 mg 3 times daily (03/16) Counseling on alcohol cessation Discussed about inpatient alcohol rehab, but pt wants to go home first then she would arrange for alcohol rehab Advised pt that it is easy to transition to alcohol rehab after discharge from the hospital, but pt is not interested about the transition Might consider to get a paracentesis done tomorrow if possible before discharge home Ileus ruled out -- based on KUB -- CT abdomen : no obsrtuction, ileus -- soft diet minimize Oxy Bibasilar pneumonia, possible aspiration -- Changed ceftriaxone to cefepime, will complete Nebs every 6 hours -- Remains on 2 L of oxygen Possible acute exacerbation of asthma secondary to pneumonia - wheezing resolved overall improving Currently on IV Solu-Medrol 40 mg to q12h, will transition to PO prednisone Nebs every 6 hours Continue cefepime Anemia, likely secondary to acute blood loss, possible upper GI bleed, secondary to gastritis/peptic ulcer disease/variceal bleeding -- Hemoglobin 6.6 Received 2 units packed RBC given Hemoglobin improved to 9.5 -- Platelet 31 K received 1 unit of platelet pheresis given Platelet improved to 62k -- INR 2.2, likely coagulopathy secondary to liver cirrhosis Vitamin K 10 mg IV ordered INR improved to 1.6 --GI bleed resolved -- Protonix drip, octreotide--> change to Protonix IV BID continue cefepime -- Discussed with GI today Hyponatremia secondary to illness --Likely secondary to alcoholism Sodium level improving from 122, 135 --Staff Submarine Warfare Officer consulted Discussed with Dr. Benton Electrolyte abnormality Potassium 2.7 and phosphate 2.4 Potassium and phosphate replaced We will check later Continue potassium supplement ADD, at baseline --Continue Adderall Hyperglycemia likely prediabetes hemoglobin A1c of 6 from January 2022 past tobacco abuse DVT prophylaxis. SCDs Re: Thrombocytopenia Full code Admission and Anticipated Discharge Date Admission Date: March 12, 2022 Subjective Pt was seen and examined for follow up of alcoholic hepatitis, decompensated liver cirrhosis, pneumonia, GI bleed Lying in bed with no acute distress Patient would like to go home today but her mother called would like her to go to alcohol inpatient rehab She said that she plans to go to alcohol rehab, but would like to go home first than to rehab She removed her mother from her HiPAA and she does not want us to give her mother any info about her care She feels her abdomen start to feel full again with fluid She would like to get another paracentesis done tomorrow before discharge home Denies any chest pain, palpitation, dizziness and SOB Review of Systems Review of Systems: All systems reviewed & are unremarkable except as noted in Subjective Physical Exam Physical Exam: General- +icteric Head- atraumatic Eyes- PERRL, EOMI, ENT- oropharynx clear Neck- supple, no JVD Lungs- clear to auscultation Heart- regular rhythm; no murmur Abdomen- normal bowel sounds, soft, +ascites Extremities- no calf tenderness Neuro- alert, oriented x 3; PERRL, EOMI; no facial palsy; no dysarthria Skin- warm & dry, jaundice Results & Data Results & Data ([facility]) Vital Signs (Past 12 Hours) Vital Signs Temp Pulse Pulse Pulse Resp BP BP 03/22/22 22:38 37.2 C 90 20 107/67 03/22/22 19:12 36.9 C 94 H 18 105/63 03/22/22 16:18 37.0 C 94 H 18 102/65 03/22/22 15:42 93 H 03/22/22 12:12 37.6 C H 106 H 19 109/68 Pulse Ox 03/22/22 22:38 95 03/22/22 19:12 94 03/22/22 16:18 94 03/22/22 15:42 03/22/22 12:12 95
[2022-03-23] MEDS: LORazepam 0.5 MG TAB PO PRN ×3 (02:28→17:01)
[2022-03-23 07:20] LABS: Hematocrit (blood only) 25.5 % (37-47); Hemoglobin 8.9 g/dL (12.0-16.0); Mean Corpuscular Hemoglobin 36.6 pg (25-34); Mean Corpuscular Hgb Conc 34.9 g/dL (32-36); Mean Corpuscular Volume 104.9 fL (80-100); RDW Coefficient of Variation 23.2 % (11.5-14.5); RDW Standard Deviation 87.7 fL (36.4-46.3); Red Blood Count 2.43 M/uL (4.2-5.4); White Blood Count 16.85 K/uL (4.8-10.8)
[2022-03-23 07:27] LABS: Alkaline Phosphatase 135 U/L (34-104); Blood Urea Nitrogen 7 mg/dl (6-23)
[2022-03-23 07:28] LABS: Alanine Aminotransferase 25 U/L (7-52); Albumin Globulin Ratio 1.8 (0.9-2); Anion Gap 9 (3-11); Aspartate Aminotransferase 31 U/L (13-39); Bilirubin,Total 26.5 mg/dl (0.2-1.0); Calcium 7.8 mg/dl (8.5-10.1); Carbon Dioxide 18 mmol/L (21-32); Chloride 112 mmol/L (98-107); Globulin 1.7 gm/dl (2.5-4.0); Glucose 91 mg/dl (70-99(Fasting)); Potassium 3.1 mmol/L (3.5-5.1); Sodium 139 mmol/L (136-145); Total Protein 4.7 gm/dl (6.0-8.3)
[2022-03-23 07:35] LABS: Mean Platelet Volume 10.9 fL (7.4-10.4); Platelet Count 77 K/uL (130-400)
[2022-03-23] MEDS: ondansetron HCL 6 MG in DEXTROSE 5% 50 ML IV PRN (07:46)
[2022-03-23] MEDS: FOLIC ACID 1 MG in SYRINGE 9.8 ML IV SCH (08:10)
[2022-03-23] MEDS: FLUTICASONE PROPIONATE NA SPR 16 GM BTL SCH (08:10)
[2022-03-23] MEDS: THIAMINE HCL 100 MG in SYRINGE 9 ML IV SCH (08:10)
[2022-03-23] MEDS: AZELASTINE HCL 0.1% NASAL 200 SPRAYS/27,400 MCG BTL SCH (08:10)
[2022-03-23] MEDS: FLUTICASONE/VILANTEROL 200/25MCG 14 PUFFS/INHALER INH SCH (08:10)
[2022-03-23] MEDS: UMECLIDINIUM BROMIDE 62.5MCG/BLISTER 7 PUFFS/INHALER INH SCH (08:11)
[2022-03-23] MEDS: PANTOprazole 40 MG TAB PO SCH (08:11)
[2022-03-23] MEDS: POT PHOSPHATE MONOBASIC W/ SOD TAB PO SCH ×3 (08:12→16:52)
[2022-03-23] MEDS: PENTOXIFYLLINE 400MG EXT REL TAB PO SCH ×2 (08:12→13:54)
[2022-03-23] MEDS ORDERED: predniSONE 20 MG TAB PO SCH (09:00)
[2022-03-23] MEDS: oxyCODONE HCL IR 5 MG TAB (IMMEDIATE RELEASE) PO PRN ×2 (09:20→15:24)
[2022-03-23] MEDS ORDERED: POTASSIUM CHLORIDE CRTAB 20 MEQ TABCR PO STA (12:09)
[2022-03-23] MEDS ORDERED: POTASSIUM PHOS 3 MMOL/1 ML INFUSION IV STA (12:09)
[2022-03-23] MEDS ORDERED: POTASSIUM PHOSPHATE 15 MMOL in DEXTROSE 5% 250 ML IV ONE (13:00)
[2022-03-23] MEDS: hydrOXYzine HCl 10 MG TAB PO PRN (15:24)
[2022-03-23 18:18] LABS: Phosphorus 2.9 mg/dl (2.5-4.9); Potassium 3.7 mmol/L (3.5-5.1)
--- NOTE | 2022-03-23 19:18 | Discharge Summary ---
Date of Service March 23, 2022 Admission HPI Per Admitting Provider History obtained from patient and records. Medical history significant for alcoholic cirrhosis, portal hypertension, ADD, asthma, chronic anemia (baseline hemoglobin of 12 ), past tobacco abuse. Last confinement January 2022 for alcoholic hepatitis. Patient discharged on prednisone course. 2 weeks ago, patient noted achy epigastric pain with worsening abdominal distention followed by nausea, emesis. Patient denies black or bloody stools. No fever, no chills. No chest pain, no SOB. Patient consulted ER for worsening symptoms along with jaundice. Medical History as above Surgical History : none Family History : Lung cancer, breast cancer, melanoma, lung cancer, heart disease Personal/Social history : Non-smoker, alcohol abuse, [employer] employee Admission Exam Per Admitting Provider GENERAL: intoxicated, no respiratory distress SKIN: Jaundiced, warm HEENT:pale palpebral conjunctivae, icteric sclerae, no ptosis, dry buccal mucosa NECK : Supple, short neck, no tenderness CHEST : CTA, no tenderness HEART : Tachycardic, no obvious murmurs ABDOMEN: distention, minimal epigastric tenderness EXTREMITIES : No LE swelling/tenderness, no other conspicuous deformities noted NEUROLOGIC : Coherent, no facial asymmetry, no other gross focality Principal Diagnosis Decompensated liver cirrhosis History of alcoholic Hepatitis/ cirrhosis Bibasilar pneumonia, possible aspiration Anemia Hyponatremia Hypokalemia Hypophosphatemia Discharge Exam General- +icteric Head- atraumatic Eyes- PERRL, EOMI, ENT- oropharynx clear Neck- supple, no JVD Lungs- clear to auscultation Heart- regular rhythm; no murmur Abdomen- normal bowel sounds, soft, +ascites Extremities- no calf tenderness Neuro- alert, oriented x 3; PERRL, EOMI; no facial palsy; no dysarthria Skin- warm & dry, jaundice Discharge Data Allergies Allergy/AdvReac Type Severity Reaction Status Date / Time banana Allergy Intermediate RASH, Verified 03/12/22 01:11 THROAT SLIGHTLY SWOLLEN Penicillins Allergy Unknown HAPPENED Verified 03/12/22 01:11 A CHILD Consultations 03/12/22 02:50 ED Decision to Admit Stat 03/12/22 04:20 Consult Gastroenterology Routine 03/12/22 08:35 Consult Nephrology Routine 03/14/22 20:29 Consult Telephone Lineworker Routine PARACENTESIS UNDER ULTRASOUND GUIDANCE CLINICAL HISTORY: Cirrhosis and ascites. COMPARISON STUDY: Abdominal CT dated 03/17/2022. PROCEDURE: The risks, benefits, and alternatives to the procedure were discussed with the patient who voiced understanding. Written informed consent was obtained. Following real-time ultrasound localization of a suitable pocket of fluid in the left lower quadrant, the abdomen was prepped and draped in the usual sterile fashion. The skin and soft tissues were anesthetized with 1% lidocaine. The sheathed paracentesis needle was inserted and approximately 2.7 liters of dark ascitic fluid was removed by vacuum suction. The procedure was well tolerated and without immediate complication. The patient left the department in satisfactory condition. IMPRESSION: Successful ultrasound-guided paracentesis with removal of approximately 2.7 liters of ascitic fluid. ACT 112: Negative or not required by law. Electronically signed by: Brodie Gillis M.D. 03/20/2022 12:18 PM Dictated:03/20/22 1216 Transcribed: 03/20/[address] SCAN OF THE ABDOMEN AND PELVIS WITHOUT IV CONTRAST CLINICAL HISTORY: Generalized abdominal pain. Nausea. Bloating. COMPARISON STUDY: Abdominal CT dated 03/12/2022. TECHNIQUE: CT scan of the abdomen and pelvis is performed from the lung bases to the proximal femora. Images are reviewed in the axial, sagittal, and coronal planes. IV contrast was not administered for this examination. Note that the examination is suboptimal without IV contrast. Oral contrast was utilized. A dose lowering technique was utilized adhering to the principles of ALARA. CT DOSE: 661.98 mGy.cm FINDINGS: Lung bases: The heart is top normal in size noting trace pericardial effusion. There are small pleural effusions with dependent consolidation. Liver: The unenhanced liver is enlarged, measuring 25.1 cm in length. The liver demonstrates diffusely diminished attenuation indicating steatosis. There is no intrahepatic biliary ductal dilatation. Gallbladder: The gallbladder is contracted. Gallbladder wall thickening is nonspecific and likely related to adjacent hepatocellular disease. Spleen: The spleen is enlarged measuring 18.1 cm in length. Pancreas: Unremarkable. Adrenal glands: Unremarkable. Kidneys: The unenhanced kidneys are normal in size and without hydronephrosis. There are no renal calculi identified. There is no evidence of contour deforming renal mass lesion. Abdominal vasculature: The abdominal aorta is normal in course and caliber. Bowel: There is no bowel obstruction. Enteric contrast reaches the distal small bowel. There is mild colonic diverticulosis without CT evidence of acute diverticulitis. The appendix is normal as visualized. Peritoneum: There is a small volume of abdominopelvic ascites. No intraperitoneal free air is identified. There is a fat-containing umbilical hernia. Lymphadenopathy: None. Pelvic viscera: The bladder is decompressed and a Talbot catheter and not well evaluated. The uterus and adnexa are normal as visualized. Skeletal structures: No lytic or blastic lesions are seen. IMPRESSION: 1. Hepatomegaly and hepatic steatosis. 2. Splenomegaly and abdominopelvic ascites indicate portal hypertension. 3. Small pleural effusions with dependent consolidation. This could represent atelectasis versus an infectious/inflammatory pneumonitis and clinical correlation will be required. 4. No bowel obstruction. 5. Additional findings as above. ACT 112: Negative or not required by law. Electronically signed by: Brodie Gillis M.D. 03/17/2022 7:04 PM Dictated:03/17/221856 Transcribed: 03/17/221856 XR KUB/Abdomen 1 view CLINICAL HISTORY: Abdominal pain TECHNIQUE: 1 view of the abdomen was obtained. Comparison: Comparison is made to chest and abdomen radiographs 03/17/2022 FINDINGS: Lung bases are unremarkable. The osseous structures are grossly unremarkable. Multiple gas-distended loops of small bowel are seen in the abdomen up to 36 mm. Small stool burden is seen. IMPRESSION: Multiple gas-distended loops of small bowel compatible with small bowel obstruction or ileus. ACT 112: Negative or not required by law. Electronically signed by: Carlos Sullivan M.D. 03/17/2022 1:42 PM Dictated:03/17/22 1341 Transcribed: 03/17/22 1341 PROCEDURE: Ultrasound-Guided Diagnostic/Therapeutic Paracentesis CLINICAL HISTORY: ascites MEDICATIONS: Subcutaneous Lidocaine 2%. PROCEDURE: The procedure itself was explained to the patient carefully. The patient was brought into the IR suite and a time-out was performed. The patient was positioned supine on the table. Preliminary ultrasound of the abdomen was performed to determine a safe needle entry site. The most appropriate approach for safe needle entry site was planned and the site for puncture was marked. The right lower quadrant was prepped and draped in the usual sterile fashion. Subcutaneous 2% lidocaine was used for local anesthesia along the expected needle tract. Under ultrasound-guidance, an 5 [place] Yueh needle-sheath was inserted carefully into the peritoneal space towards the abdominal ascites fluid collection. The needle was removed and the sheath was connected to tubing and a vacuum suction d evice. A total of 2400 cc of serous ascites was aspirated. The sheath was removed and a sterile dressing applied. The patient tolerated the procedure well without immediate complications. Sample of ascites was sent for analysis. IMPRESSION: Ultrasound-guided diagnostic/therapeutic paracentesis. Electronically signed by: Carlos Sullivan M.D. 03/17/2022 4:26 PM Dictated:03/17/22 1625 Transcribed: 03/17/22 1625 XR chest 1V portable CLINICAL HISTORY: ff up pneumonia, r/o pleural effusion TECHNIQUE: Single frontal radiograph of the chest was obtained. Comparison: Comparison is made to chest radiograph 03/15/2022 FINDINGS: No lines and tubes are seen. The cardiomediastinal silhouette is normal. Lungs are underinflated. Previously noted small airspace opacities are again seen. No evidence of pleural effusion or pneumothorax. Old healed rib fractures are seen on the left. IMPRESSION: Lungs are underinflated. Redemonstration of multifocal airspace opacities which may represent pneumonia. ACT 112: Negative or not required by law. Electronically signed by: Carlos Sullivan M.D. 03/16/2022 11:40 AM Dictated:03/16/22 1134 Transcribed: 03/16/22 1134 XR chest 1V portable HISTORY: 37 years-old Female sob acute shortness of breath COMPARISON: Chest radiograph 03/14/2022 TECHNIQUE: Portable AP view of the chest FINDINGS: The cardiac silhouette is enlarged. Mild right hemidiaphragmatic elevation. Lungs are hypoinflated. Pulmonary vascular congestion with interstitial coarsening and bilateral airspace opacities, stable from prior. No pneumothorax. Probable small pleural effusions. Bones appear grossly intact. Mild levoscoliosis of the upper thoracic spine. IMPRESSION: 1. Pulmonary vascular congestion with mixed interstitial and alveolar opacities redemonstrated suggestive of multifocal pneumonia. 2. Hypoinflation. 3. Possible small pleural effusions. ACT 112: Negative or not required by law. The above report was generated using voice recognition software. It may contain grammatical, syntax or spelling errors. Electronically signed by: Bud Madera M.D. 03/15/2022 6:47 AM Dictated:03/15/2245 Transcribed: 03/15/[address] WITH IV CONTRAST CT DOSE: 619.05 mGy.cm HISTORY: Acute generalized abdominal pain with nausea and vomiting abd pain nv TECHNIQUE: Multiaxial CT images of the abdomen and pelvis were performed following the IV administration of 95 cc of Optiray, A dose lowering technique was utilized adhering to the principles of ALARA. COMPARISON STUDY: 01/31/2022 FINDINGS: Cardiomegaly. Study is limited secondary to respiratory motion artifact. Bibasilar opacities are suggestive of atelectasis. There is no pneumatosis or pneumoperitoneum. The spleen is moderately enlarged, 16.6 cm. Unremarkable pancreas and adrenal glands. Decompressed gallbladder with wall thickening is similar to the prior study. Hepatic steatosis with hepatomegaly and cirrhosis redemonstrated. Patent portal vein. No hepatic mass identified. Recanalization of the umbilical vein. Increased amount of small to moderate abdominal pelvic ascites. Periesophageal varicosities. Unremarkable kidneys. There is no hydronephrosis. Urinary bladder wall thickeni ng with partial distention. Unremarkable uterus and adnexa. Small fat filled right inguinal hernia. The aorta and IVC are unremarkable. There is no lymphadenopathy identified. Diffuse gastric wall thickening may be secondary to partial distention. There is no bowel obstruction. Colonic diverticulosis. Multifocal wall thickening is noted throughout the large bowel. Normal appendix. Unremarkable soft tissues. Mild thoracolumbar scoliosis. No acute fracture. IMPRESSION: 1. Hepatic steatosis with hepatomegaly, cirrhosis and stigmata of portal venous hypertension including splenomegaly with progressive abdominal pelvic ascites. 2. Wall thickening of the colon may be secondary to portal colopathy versus a nonspecific colitis. 3. No bowel obstruction. 4. Normal appendix. 5. Additional findings as above. ACT 112: Negative or not required by law. The above report was generated using voice recognition software. It may contain grammatical, syntax or spelling errors. Electronically signed by: Bud Madera M.D. 03/12/2022 9:09 AM Dictated:03/12/2259 Transcribed: 03/12/2259 Ordered Studies 03/12/22 06:51 CT abd pelvis IV con only Urgent 03/12/22 08:00 US paracentesis abd w/image Routine 03/17/22 12:39 US paracentesis abd w/image Routine 03/17/22 14:47 CT abd pelvis oral con only Routine 03/20/22 09:33 US paracentesis abd w/image Routine Hospital Course (1) Decompensated hepatic cirrhosis: Decompensated liver cirrhosis History of alcoholic Hepatitis/ cirrhosis S/P Paracentesis 2 L (03/12/2022), 2 L (03/17/22)and 2.5 on( 03/20/22) ascites fluid removed Albumin administered Paracentesis fluid culture: Negative She was on Ceftriaxone, changed to cefepime in light of pneumonia GI consulted Acetylcysteine given x2 days Bilirubin trending down from 41.9 to 32.1 Continue Trental 400 mg 3 times daily (03/16) Counseling on alcohol cessation Discussed about inpatient alcohol rehab, but pt wants to go home first then she would arrange for alcohol rehab Advised pt that it is easy to transition to alcohol rehab after discharge from the hospital, but pt is not interested about the transition Might consider to get a paracentesis done tomorrow if possible before discharge home Pt does not want to stay in the hospital for another day advised her to stay that we can do a paracentesis done on Thursday, she refused to stay She said that if she has to come back that she will come back but she is not staying She understands that she will be readmitting in the next day and she is ok with that by asking to be discharged today She will need to follow closely with GI to arrange for outpatient paracentesis Ileus ruled out -- based on KUB -- CT abdomen : no obsrtuction, ileus -- soft diet minimize Oxy Bibasilar pneumonia, possible aspiration -- Changed ceftriaxone to cefepime, will complete Nebs every 6 hours -- Remains on 2 L of oxygen Possible acute exacerbation of asthma secondary to pneumonia - wheezing resolved overall improving Currently on IV Solu-Medrol 40 mg to q12h, will transition to PO prednisone Nebs every 6 hours Continue cefepime Anemia, likely secondary to acute blood loss, possible upper GI bleed, secondary to gastritis/peptic ulcer disease/variceal bleeding -- Hemoglobin 6.6 Received 2 units packed RBC given Hemoglobin improved to 9.5 -- Platelet 31 K received 1 unit of platelet pheresis given Platelet improved to 62k -- INR 2.2, likely coagulopathy secondary to liver cirrhosis Vitamin K 10 mg IV ordered INR improved to 1.6 --GI bleed resolved -- Protonix drip, octreotide--> change to Protonix IV BID continue cefepime -- Discussed with GI today Hyponatremia secondary to illness --Likely secondary to alcoholism Sodium level improving from 122, 135 --Store Stocker consulted Discussed with Dr. Benton Electrolyte abnormality Potassium 2.7 and phosphate 2.4 Potassium and phosphate replaced Repeat K later stable Continue potassium supplement on discharge ADD, at baseline --Continue Adderall Hyperglycemia likely prediabetes hemoglobin A1c of 6 from January 2022 past tobacco abuse DVT prophylaxis. SCDs Re: Thrombocytopenia Full code Disposition Refused to stay for Thursday to get paracentesis done Pt understands the risk by asking to be discharge today such as readmission, worsening pain, sob and even Total Time Total Time Spent Total Time Spent (In Minutes): 45 minutes Discharge Plan Discharge Items Patient Disposition: Home - Self-Care Reason For Visit: HYPONAT, SEPSIS Discharge Diagnosis: Decompensated liver cirrhosis History of alcoholic Hepatitis/ cirrhosis Bibasilar pneumonia, possible aspiration Anemia Hyponatremia Hypokalemia Hypophosphatemia Activity: Resume your previous activity Non-emergency contact: Primary Care Provider and Viscose Cellar Charge Hand Call non-emergency contact if: you have any medication questions, your symptoms worsen and your temperature is above 101 Follow-up/Referrals: Zaina Bunch MD [Primary Care Provider] - Diet: Low Sodium (2gm) Addtl Attending Provider Instructions: Follow up with your primary care provider within 7 days Follow up with your gastroenterology as soon as possible to arrange for outpatient paracentesis Advised to say in the hospital to arrange for paracentesis on Thursday, unfortunately you want to go home Check Phosphorus and BMP 3 to 5 days to monitor your electrolytes ( your provider will have to order it with your) Counseling on alcohol cessation Advised to discharge to inpatient alcohol rehab (Unfortunately you prefer to go home then transition to alcohol rehab from home) Fall precaution Follow a low salt diet and limited fluid intake to 1.8 Liter daily. Continue monitor your blood pressure. ( Will hold the night dose spironolactone and Lasix for the next days until blood pressure improves) Please hold tramadol for drowsiness and lethargy Do not drive or operate any machine after taking tramadol Seek urgent medical attention if you develop any shortness of breath or sign of volume overload Pending Studies at Discharge: No Stand-Alone Forms: My [facility] [place], Smoking Cessation Medications and DC Order Prescriptions: New pentoxifylline 400 mg Tablet Extended Release 400 mg PO TID 30 Days Qty: 90 RF: 0 Phospha 250 Neutral 250 mg Tablet 2 tab PO QID 30 Days Qty: 240 RF: 0 Continued albuterol sulfate [ProAir HFA] 90 mcg/actuation Hfa Aerosol Inhaler 1 inh INHALATION QID PRN (Reason: Shortness Of Breath) RF: 0 omeprazole 20 mg Capsule,Delayed Release(Dr/Ec) 20 mg PO QAM RF: 0 montelukast 10 mg Tablet 10 mg PO HS RF: 0 dextroamphetamine-amphetamine [Adderall] 5 mg Tablet 5 mg PO BID RF: 0 loratadine 10 mg Tablet 10 mg PO QAM RF: 0 budesonide-formoterol [Symbicort] 160-4.5 mcg/actuation Hfa Aerosol Inhaler 2 puff INHALATION BID RF: 0 Combivent Respimat 20-100 mcg/actuation Mist 1 puff INHALATION BID RF: 0 multivitamin Tablet 1 tab PO QAM RF: 0 azelastine 137 mcg (0.1 %) Aerosol,[place] 1 spray INTRANASAL BID RF: 0 fluticasone propionate 50 mcg/actuation [place],Suspension 2 spray INTRANASAL DAILY RF: 0 milk thistle 500 mg Capsule 0 mg PO QAM RF: 0 ascorbic acid (vitamin C) [Vitamin C] 500 mg Tablet 500 mg PO QAM RF: 0 cholecalciferol (vitamin D3) [Vitamin D3] 50 mcg (2,000 unit) Capsule 2,000 mcg PO QAM RF: 0 aspksvd-fuqt-ttcxj-oreg-capryl 0 MG 0 mg PO QAM RF: 0 spironolactone 100 mg tablet 100 mg PO DAILY RF: 0 hydroxyzine HCl 25 mg tablet 1 mg PO TID PRN (Reason: Anxiety) RF: 0 Spiriva Respimat 2.5 mcg/actuation mist 2 puff INHALATION DAILY RF: 0 ondansetron HCl 4 mg Tablet 4 mg PO Q8H PRN (Reason: Nausea) RF: 0 furosemide [Lasix] 40 mg Tablet 40 mg PO QAM RF: 0 spironolactone 50 mg Tablet 50 mg PO PM RF: 0 furosemide 20 mg tablet 20 mg PO PM RF: 0 thiamine HCl (vitamin B1) 100 mg Tablet 100 mg PO QAM Qty: 30 RF: 0 Changed tramadol 50 mg Tablet 50 mg PO Q12H PRN (Reason: Pain) Qty: 10 RF: 0 Discharge Orders: Discharge Order (Routine); Ordered 03/23/22 Ordered By: Rodriguez Madera/Other Patient Handouts: Treating Cirrhosis, Low Salt Diet Dc Admission Data Admit Date/Time: 03/12/22 04:16 Attending Provider: Rodriguez Hinton Admit Provider: Gerald Gomez Primary Care Provider: Zaina Bunch Other Providers: Gerald Gomez ; Deanne Vazquez ; Isabelle Riddle ; Sukumar Ac ; Anyi Hutchins ; Junior Holder ; Sharon Hamilton ; Lavon Guo ; Arik Byrne ; Rajni Navarro ; Mari Sharpe ; Janki Tomlinson ; Anabela Galarza ; wSeetie Acosta ; Antoine Osorio ; Tyrel Chahal Other Interventions: Discharge Summary Assessment (RN) Last Done: 03/23/22 19:05
== END 2022-03-23 19:15 | disposition home or self-care (01) | DRG 432 ==
LOC: ED 00:16 → SUATTDRO 04:16 → EDINP 04:16 → 2S 10:32 → 1E 03-14 19:39 → 2S 03-15 22:10

== ENCOUNTER 2022-03-25 08:57 | Observation (INO) ==
--- NOTE | 2022-03-25 09:08 | Emergency Department Note ---
Impression & Plan Cirrhosis, Hyperbilirubinemia, Hypomagnesemia, Hypocalcemia ED Provider Note NAME: CARMEN BOUCHER AGE: 37 SEX: F : 1985 ARRIVES VIA: Walk-In INFORMANT: Patient, ED PROVIDER(S): Jacob Johnson MD Chief Complaint: Abdominal and back pain HPI: Patient presents due to concern for abdominal discomfort and back pain. Patient denies any fevers chills. Patient states that she has had vomiting and worsening abdominal discomfort with difficulty with breathing as the patient has become more full of fluid in the abdomen. The patient was supposed to have a paracentesis completed today but was referred here as they could not get her scheduled. The patient does admit to drinking quite heavily in the past last drink was a week ago. Patient states that she had been drinking 10 or so airplane bottles of 99 proof alcohol. She had done this for many years. Patient does complain of midline lumbar and paraspinal discomfort no recent falls or trauma. The patient does feel more swollen. Patient most recently was admitted and did have 3 paracenteses completed last week. Patient did have a CT completed on March 12 which showed hepatic steatosis with hepatomegaly cirrhosis and stigmata of portal venous hypertension including splenomegaly and progressive abdominal pelvic ascites. The patient did have paracentesis completed on the and 20 March. Patient was also concerned that she did have some leakage from her prior paracentesis site. ROS: See HPI for pertinent positives and negatives. A total of 10 systems were reviewed and otherwise negative. Past medical history: See below Surgical history: See below Social history: See below Physical Exam: GENERAL: Mildly ill in appearance,NAD, wearing a mask, non-toxic. EYE EXAM: Scleral icterus bilaterally PERRL, no anisocoria and EOM's grossly intact w/o pain. OROPHARYNX: Moist mucus membranes. Grossly normal dentition. NECK: Supple, no nuchal rigidity, no adenopathy, non-tender. No signs of meningismus. LUNGS: Clear to auscultation. Normal chest wall mechanics. HEART: NSR, no MRG. ABDOMEN: Abdomen soft, 2 bandages left abdomen, scant bruising but no obvious erythema fluctuance or drainage. Positive fluid wave, normo-active bowel sounds, no masses, no rebound or guarding. BACK: No CVA TTP. SKIN: Jaundiced. UPPER EXTREMITIES: Upper extremities are grossly normal. LOWER EXTREMITIES: Grossly normal, no edema. NEURO EXAM: A&O x3, cranial nerves II-XII grossly intact, normal speech, moves all 4 extremities on command w/o issue. Differential diagnoses: Appendicitis, ovarian cyst, ovarian torsion, ectopic , TOA, PID, infections, diverticulitis, UTI, obstruction, mesenteric ischemia, aortic pathology, inflammatory bowel disease, renal colic, PUD, pancreatitis, biliary pathology, hernia, volvulus, constipation, as well as other pathologies. Course: Patient was seen and evaluated the bedside. Full history physical exam was performed. Imaging Studies: See Below Cardiac monitoring: An order was placed for continuous cardiac monitoring. The monitor shows a rate of 98 with sinus rhythm. Procedures: Limited Point of Care Abdominal US performed by Dr. Johnson Indication: Ascites Findings: Limited ylivc-ss-ymon abdominal ultrasound did show a pocket of fluid in the left abdomen, no large pocket in the right abdomen or midline, depth of abdominal wall was approximate 4 cm with only about 2 cm of fluid. Impression: Likely ascites MDM: Patient presented due to concern for worsening abdominal discomfort. Blood work is obtained. Patient was also ordered a CT abdomen pelvis. The patient is a white count of 17. The patient did finish steroids on Thursday. The patient has some chronic but stable anemia. Platelet count is improved compared to prior 110. Patient's kidney function is did require a point of care creatinine. The patient did get a CAT scan. Patient does have stigmata consistent with her history of cirrhosis and portal hypertension. I did perform a bedside ultrasound of the abdomen which did show a pocket of fluid but I was concerned the patient may have adhesions in the midline and did not have a very deep pocket where I felt it was safe at this time to perform a paracentesis. I did speak the on-call hospitalist: MIRA Yung and the patient was admitted by Dr. Diaz. Past Med/Surg History Medical History ADD (attention deficit disorder) Alcohol abuse Alcoholic hepatitis Alcoholic pancreatitis Allergic sinusitis Anxiety Asthma Depression Fatty liver History of abdominal paracentesis Tobacco use Surgical History History of esophagogastroduodenoscopy (EGD) Family History Grandmother Breast cancer Grandfather Heart disease Social History Smoking Status: Former smoker Tobacco Type: Cigarettes Cigarettes Per Day: 1-2; Second Hand Exposure: No; Do You Dip or Chew Tobacco: No; Tobacco Cessation Education Requested by Patient: No Hx Alcohol Use: Yes Alcohol type: beer Hx Substance Use: No Preferred Language: Singaporean 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 Ability: Effective Retail Assistant Required: No Beliefs That Will Affect Care: None marital status: Single Current Living Situation: Significant Other Current Living Situation Comment: Apartment current occupational status: employed How many Children do You have: 0 Other Information That Helps Us Care for You: No Feels Safe at Home: Yes Safety Concerns: Feels Safe At This Time Assistive Devices: None Allergies Allergies Allergy/AdvReac Type Severity Reaction Status Date / Time banana Allergy Intermediate RASH, Verified 03/12/22 01:11 THROAT SLIGHTLY SWOLLEN Penicillins Allergy Unknown HAPPENED Verified 03/12/22 01:11 A CHILD Home Meds Home Medications Medication Instructions Recorded Confirmed albuterol sulfate 90 mcg/actuation 2 inh INHALATION BID PRN 06/24/20 03/25/22 aerosol inhaler (ProAir HFA) budesonide-formoterol HFA 160 2 puff INHALATION BID 06/20/21 03/25/22 mcg-4.5 mcg/actuation aerosol inhaler (Symbicort) dextroamphetamine-amphetamine 5 mg 5 mg PO BID 06/20/21 03/25/22 tablet (Adderall) ipratropium 20 mcg-albuterol 100 1 puff INHALATION BID 06/20/21 03/25/22 mcg/actuation mist for inhalation (Combivent Respimat) loratadine 10 mg tablet 10 mg PO QAM 06/20/21 03/25/22 montelukast 10 mg tablet 10 mg PO HS 06/20/21 03/25/22 omeprazole 20 mg capsule,delayed 20 mg PO QAM 06/20/21 03/25/22 release azelastine 137 mcg (0.1 %) nasal 1 spray INTRANASAL BID 10/03/21 03/25/22 spray aerosol fluticasone propionate 50 2 spray INTRANASAL DAILY 10/03/21 03/25/22 mcg/actuation nasal spray,suspension multivitamin 1 tab PO QAM 10/03/21 03/25/22 ondansetron HCl 4 mg tablet 4 mg PO Q8H PRN 10/31/21 03/25/22 furosemide 20 mg tablet 20 mg PO PM 11/20/21 03/25/22 furosemide 40 mg tablet (Lasix) 40 mg PO QAM 11/20/21 03/25/22 spironolactone 50 mg tablet 50 mg PO PM 11/20/21 03/25/22 ascorbic acid (vitamin C) 500 mg 500 mg PO QAM 01/31/22 03/25/22 tablet (Vitamin C) cholecalciferol (vitamin D3) 50 2,000 mcg PO QAM 01/31/22 03/25/22 mcg (2,000 unit) capsule (Vitamin D3) hydroxyzine HCl 25 mg tablet 1 mg PO TID PRN 01/31/22 03/25/22 milk thistle 500 mg capsule 0 mg PO QAM 01/31/22 03/25/22 spironolactone 100 mg tablet 100 mg PO DAILY 01/31/22 03/25/22 tiotropium bromide 2.5 2 puff INHALATION DAILY 01/31/22 03/25/22 mcg/actuation mist for inhalation (Spiriva Respimat) spwegxu-dutd-fjpbq-oreg-capryl 0 mg PO QAM 01/31/22 03/25/22 magnesium oxide 400 mg (241.3 mg 400 mg PO DAILY 03/25/22 03/25/22 magnesium) tablet potassium chloride 20 mEq 20 meq PO DAILY 03/25/22 03/25/22 tablet,extended release sodium di- and 2 tab PO TID 03/25/22 03/25/22 monophosphate-potassium phos monobasic 250 mg tablet (Phospha 250 Neutral) Previous Rx's Medication Instructions Recorded pentoxifylline 400 mg 400 mg PO TID 30 Days #90 tab 03/23/22 tablet,extended release thiamine HCl (vitamin B1) 100 mg 100 mg PO QAM #30 tab 03/23/22 tablet tramadol 50 mg tablet 50 mg PO Q12H PRN #10 tab 03/23/22 Results & Data (ED) Vital Signs Vital Signs - 24 hr 03/25/22 09:01 03/25/22 10:27 03/25/22 12:00 Temperature 36.5 C Temperature Source Temporal Artery Scan Pulse Rate 118 H Pulse Rate [Apical] 108 H 105 H Pulse Rhythm [Apical] Regular Respiratory Rate 20 19 20 Respiratory Effort / Characteristics Non-Labored Non-Labored Spontaneous Respiratory Depth Normal Normal Blood Pressure 116/64 Blood Pressure [Left Arm] 126/70 125/72 Blood Pressure Mean 81 Blood Pressure Mean [Left Arm] 88 89 Blood Pressure Position Sitting Blood Pressure Position [Left Arm] Sitting Sitting Pulse Oximetry 95 95 Oxygen Delivery Method Room Air Room Air Sepsis Recent Fever Within 48 Hours No Sepsis New/Unexplained Change in Mental Status No Sepsis Action Taken by Nursing No Action Required Home Medications Current Medication List: was personally reviewed by me Laboratory Data Attestation: I reviewed the patient's lab results. Result diagrams: 03/25/22 10:09 03/25/22 10:09 Lab Results 03/25/22 03/25/22 03/25/22 Range/Units 09:54 10:09 10:09 WBC 17.48 H (4.8-10.8) K/uL RBC 2.37 L (4.2-5.4) M/uL Hgb 8.4 L (12.0-16.0) g/dL Hct 24.6 L (37-47) % MCV 103.8 H (80-100) fL MCH 35.4 H (25-34) pg MCHC 34.1 (32-36) g/dL RDW Std Deviation 90.2 H (36.4-46.3) fL RDW Coeff of Yasmine 23.8 H (11.5-14.5) % Plt Count 110 L (130-400) K/uL MPV 11.2 H (7.4-10.4) fL Immature Gran % (Auto) 1.2 % Neut % (Auto) 86.1 % Lymph % (Auto) 5.4 % Meagher % (Auto) 6.3 % Eos % (Auto) 0.9 % Baso % (Auto) 0.1 % Neut # (Auto) 15.06 H (1.4-6.5) K/uL Lymph # (Auto) 0.95 L (1.2-3.4) K/uL Meagher # (Auto) 1.10 H (0.11-0.59) K/uL Eos # (Auto) 0.15 (0-0.5) K/uL Baso # (Auto) 0.01 (0-0.2) K/uL Immature Gran # (Auto) 0.21 H (0.00-0.02) K/uL Anisocytosis Present Echinocytes 1+ PT (9.0-12.0) Seconds INR (0.9-1.1) APTT (21.0-31.0) Seconds PTT Ratio Sodium 136 (136-145) mmol/L Potassium 3.6 (3.5-5.1) mmol/L Chloride 109 H (98-107) mmol/L Carbon Dioxide 18 L (21-32) mmol/L Anion Gap 9 (3-11) BUN 4 L (6-23) mg/dl Creatinine TNP Est Cr Clr Drug Dosing TNP Est GFR ( Amer) TNP Est GFR (Non-Af Amer) TNP BUN/Creatinine Ratio TNP Glucose 122 H (70-99(Fasting)) mg/dl Calcium 7.9 L (8.5-10.1) mg/dl Magnesium 1.1 L (1.7-2.4) mg/dl Total Bilirubin 33.4 H (0.2-1.0) mg/dl AST 65 H (13-39) U/L ALT 32 (7-52) U/L Alkaline Phosphatase TNP Ammonia (18-72) umol/L Total Protein 4.9 L (6.0-8.3) gm/dl Albumin 3.1 L (3.4-5.0) gm/dl Globulin 1.8 L (2.5-4.0) gm/dl Albumin/Globulin Ratio 1.7 (0.9-2) Lipase TNP SARS-CoV-2, RNA, NAAT NEGATIVE (NEGATIVE) 03/25/22 03/25/22 Range/Units 10:09 10:09 WBC (4.8-10.8) K/uL RBC (4.2-5.4) M/uL Hgb (12.0-16.0) g/dL Hct (37-47) % MCV (80-100) fL MCH (25-34) pg MCHC (32-36) g/dL RDW Std Deviation (36.4-46.3) fL RDW Coeff of Yasmine (11.5-14.5) % Plt Count (130-400) K/uL MPV (7.4-10.4) fL Immature Gran % (Auto) % Neut % (Auto) % Lymph % (Auto) % Meagher % (Auto) % Eos % (Auto) % Baso % (Auto) % Neut # (Auto) (1.4-6.5) K/uL Lymph # (Auto) (1.2-3.4) K/uL Meagher # (Auto) (0.11-0.59) K/uL Eos # (Auto) (0-0.5) K/uL Baso # (Auto) (0-0.2) K/uL Immature Gran # (Auto) (0.00-0.02) K/uL Anisocytosis Echinocytes PT 19.6 H (9.0-12.0) Seconds INR 1.9 H (0.9-1.1) APTT 34.1 H (21.0-31.0) Seconds PTT Ratio 1.2 Sodium (136-145) mmol/L Potassium (3.5-5.1) mmol/L Chloride (98-107) mmol/L Carbon Dioxide (21-32) mmol/L Anion Gap (3-11) BUN (6-23) mg/dl Creatinine Est Cr Clr Drug Dosing Est GFR ( Amer) Est GFR (Non-Af Amer) BUN/Creatinine Ratio Glucose (70-99(Fasting)) mg/dl Calcium (8.5-10.1) mg/dl Magnesium (1.7-2.4) mg/dl Total Bilirubin (0.2-1.0) mg/dl AST (13-39) U/L ALT (7-52) U/L Alkaline Phosphatase Ammonia (18-72) umol/L Total Protein (6.0-8.3) gm/dl Albumin (3.4-5.0) gm/dl Globulin (2.5-4.0) gm/dl Albumin/Globulin Ratio (0.9-2) Lipase SARS-CoV-2, RNA, NAAT (NEGATIVE) Administered Medications Discontinued Medications Cefepime HCl (Maxipime) 2,000 mg in 20 mls @ 5 mls/min IV NOW STA; Protocol Stop: 03/25/22 12:23 Last Admin: 03/25/22 12:48 Dose: 5 mls/min Documented by: [id number] Magnesium Sulfate/Dextrose (Magnesium Sulfate / D5w) 1 gm in 100 mls @ 100 ml s/hr IV NOW STA Stop: 03/25/22 13:28 Last Infusion: 03/25/22 14:27 Dose: 0 mls/hr Documented by: [id number] Admin: 03/25/22 12:49 Dose: 100 mls/hr Documented by: [id number] Calcium Gluconate () 1,000 mg in 60 mls @ 240 mls/hr IV NOW STA Stop: 03/25/22 12:42 Last Infusion: 03/25/22 13:20 Dose: 0 mls/hr Documented by: [id number] Admin: 03/25/22 12:49 Dose: 240 mls/hr Documented by: [id number] Ioversol (Optiray 320 100ml) 95 ml IV ONCE ONE Stop: 03/25/22 12:00 Last Admin: 03/25/22 11:50 Dose: 95 ml Documented by: [id number] Morphine Sulfate (Morphine Sulfate 2 Mg/Ml Carp) 2 mg IV NOW STA Stop: 03/25/22 09:35 Last Admin: 03/25/22 10:18 Dose: 2 mg Documented by: [id number] Morphine Sulfate (Morphine Sulfate 2 Mg/Ml Carp) 2 mg IV NOW STA Stop: 03/25/22 12:54 Last Admin: 03/25/22 13:04 Dose: 2 mg Documented by: [id number] Ondansetron HCl (Ondansetron Inj 2 Mg/Ml 2 Ml Vial) 4 mg IV NOW STA Stop: 03/25/22 09:30 Last Admin: 03/25/22 10:19 Dose: 4 mg Documented by: [id number] Imaging Data Radiologist's Impression: Abdomen/Pelvis CT 03/25/22 09:29 CT SCAN OF THE ABDOMEN AND PELVIS WITH IV CONTRAST CLINICAL HISTORY: Generalized abdominal pain. Ascites. COMPARISON STUDY: Recent prior abdominal CT scans, most recently dated 03/17/2022. TECHNIQUE: Following the IV administration of 95 cc of Optiray 320, CT scan of the abdomen and pelvis is performed from the lung bases to the proximal femora. Images are reviewed in the axial, sagittal, and coronal planes. IV contrast was administered without complication. A dose lowering technique was utilized adhering to the principles of ALARA. CT DOSE: 747.71 mGy.cm FINDINGS: Lung bases: The heart is top normal in size noting trace pericardial effusion. There are trace pleural effusions and dependent atelectasis. There is a small hiatal hernia. Esophageal varices are noted. Liver: The contrast-enhanced liver is enlarged, measuring 25.4 cm in length. The liver demonstrates diffusely diminished attenuation indicating steatosis as well as nodularity of the surface contour. There is no intrahepatic biliary ductal dilatation. Hepatic veins and portal veins are patent. There is recanalization of the periumbilical vein. Gallbladder: The gallbladder is contracted and appears thick walled. This is likely related to adjacent hepatocellular disease. Spleen: The spleen is enlarged measuring 19.1 cm in length. Pancreas: Unremarkable. Adrenal glands: Unremarkable. Kidneys: The contrast-enhanced kidneys are normal in size and without hydronephrosis. The kidneys enhance symmetrically. Abdominal vasculature: The abdominal aorta is normal in course and caliber. Bowel: There is diffuse thickening and hyperemia of the gastric mucosa suggesting gastritis. There is wall thickening and edema of the right colon, possibly representing portal colopathy. No bowel obstruction is identified. There is mild colonic diverticulosis without CT evidence of acute diverticulitis. The appendix is normal as visualized. Peritoneum: There is a small volume of abdominopelvic ascites. No intraperitoneal free air is seen. There is a fat and fluid containing umbilical hernia. Lymphadenopathy: None. Pelvic viscera: The bladder, uterus, and adnexa are normal as visualized. There are fat-containing groin hernia is seen bilaterally. Skeletal structures: No lytic or blastic lesions are seen. Soft tissues: There is body wall edema. IMPRESSION: 1. The liver is enlarged, steatotic, and with morphological changes of cirrhosis. 2. There is nonspecific wall thickening and edema of the right colon, likely representing portal colopathy. Clinical correlation will be required. 3. Findings suggest gastritis. Clinical correlation will be required. 4. Splenomegaly, esophageal varices, and abdominopelvic ascites indicate portal hypertension. 5. There are trace pleural effusions with dependent atelectasis. These have decreased from previous. 6.Additional findings as above. ACT 112: Negative or not required by law. Electronically signed by: Brodie Gillis M.D. 03/25/2022 12:05 PM Discharge Plan Visit Data Chief Complaint: Abdominal Pain Stated Complaint: BACK PAIN ED Provider: Jacob Johnson Discharge Problem: Cirrhosis, Hyperbilirubinemia, Hypomagnesemia, Hypocalcemia Patient Disposition: Admitted As Inpatient Discharge Instructions Interventions: ED Discharge Assessment Last Done: 03/25/22 15:29
[2022-03-25] MEDS ORDERED: ONDANSETRON INJ 2 MG/ML 2 ML VIAL IV STA (09:29)
[2022-03-25] MEDS ORDERED: MoRPHine SULFATE 4 MG/ML 1 ML CARP\\VIAL IV STA (09:29)
[2022-03-25] MEDS ORDERED: MoRPHine SULFATE 2 MG/ML CARP IV STA ×2 (09:34→12:53)
[2022-03-25 10:22] LABS: Basophils # (auto) 0.01 K/uL (0-0.2); Basophils % (auto) 0.1 %; Eosinophils # (auto) 0.15 K/uL (0-0.5); Eosinophils % (auto) 0.9 %; Hematocrit (blood only) 24.6 % (37-47); Hemoglobin 8.4 g/dL (12.0-16.0); Immature Granulocytes # (auto) 0.21 K/uL (0.00-0.02); Immature Granulocytes % (auto) 1.2 %; Lymphocytes # (auto) 0.95 K/uL (1.2-3.4); Lymphocytes % (auto) 5.4 %; Mean Corpuscular Hemoglobin 35.4 pg (25-34); Mean Corpuscular Hgb Conc 34.1 g/dL (32-36); Mean Corpuscular Volume 103.8 fL (80-100); Mean Platelet Volume 11.2 fL (7.4-10.4); Monocytes % (auto) 6.3 %; Neutrophils # (auto) 15.06 K/uL (1.4-6.5); Neutrophils % (auto) 86.1 %; Platelet Count 110 K/uL (130-400); RDW Coefficient of Variation 23.8 % (11.5-14.5); RDW Standard Deviation 90.2 fL (36.4-46.3); Red Blood Count 2.37 M/uL (4.2-5.4); White Blood Count 17.48 K/uL (4.8-10.8)
[2022-03-25 10:40] LABS: INR 1.9 (0.9-1.1); Partial Thromboplastin Ratio 1.2; Partial Thromboplastin Time 34.1 Seconds (21.0-31.0); Prothrombin Time 19.6 Seconds (9.0-12.0)
[2022-03-25 10:58] LABS: Anisocytosis Present; Echinocytes 1+
[2022-03-25 11:10] LABS: Bilirubin,Total 33.4 mg/dl (0.2-1.0)
[2022-03-25 11:15] LABS: Alanine Aminotransferase 32 U/L (7-52); Albumin Globulin Ratio 1.7 (0.9-2); Albumin Level 3.1 gm/dl (3.4-5.0); Anion Gap 9 (3-11); Calcium 7.9 mg/dl (8.5-10.1); Carbon Dioxide 18 mmol/L (21-32); Chloride 109 mmol/L (98-107); Globulin 1.8 gm/dl (2.5-4.0); Glucose 122 mg/dl (70-99(Fasting)); Sodium 136 mmol/L (136-145); Total Protein 4.9 gm/dl (6.0-8.3)
[2022-03-25 11:16] LABS: Aspartate Aminotransferase 65 U/L (13-39); Blood Urea Nitrogen 4 mg/dl (6-23); Magnesium 1.1 mg/dl (1.7-2.4); Potassium 3.6 mmol/L (3.5-5.1)
[2022-03-25] MEDS ORDERED: OPTIRAY 320 100ml IV ONE (11:59)
--- NOTE | 2022-03-25 12:06 | CT Scan Report ---
CT SCAN OF THE ABDOMEN AND PELVIS WITH IV CONTRAST CLINICAL HISTORY: Generalized abdominal pain. Ascites. COMPARISON STUDY: Recent prior abdominal CT scans, most recently dated 03/17/2022. TECHNIQUE: Following the IV administration of 95 cc of Optiray 320, CT scan of the abdomen and pelvis is performed from the lung bases to the proximal femora. Images are reviewed in the axial, sagittal, and coronal planes. IV contrast was administered without complication. A dose lowering technique was utilized adhering to the principles of ALARA. CT DOSE: 747.71 mGy.cm FINDINGS: Lung bases: The heart is top normal in size noting trace pericardial effusion. There are trace pleura l effusions and dependent atelectasis. There is a small hiatal hernia. Esophageal varices are noted. Liver: The contrast-enhanced liver is enlarged, measuring 25.4 cm in length. The liver demonstrates d iffusely diminished attenuation indicating steatosis as well as nodularity of the surface contour. Th ere is no intrahepatic biliary ductal dilatation. Hepatic veins and portal veins are patent. There is recanalization of the periumbilical vein. Gallbladder: The gallbladder is contracted and appears thick walled. This is likely related to adjace nt hepatocellular disease. Spleen: The spleen is enlarged measuring 19.1 cm in length. Pancreas: Unremarkable. Adrenal glands: Unremarkable. Kidneys: The contrast-enhanced kidneys are normal in size and without hydronephrosis. The kidneys enh ance symmetrically. Abdominal vasculature: The abdominal aorta is normal in course and caliber. Bowel: There is diffuse thickening and hyperemia of the gastric mucosa suggesting gastritis. There is wall thickening and edema of the right colon, possibly representing portal colopathy. No bowel obstr uction is identified. There is mild colonic diverticulosis without CT evidence of acute diverticuliti s. The appendix is normal as visualized. Peritoneum: There is a small volume of abdominopelvic ascites. No intraperitoneal free air is seen. T here is a fat and fluid containing umbilical hernia. Lymphadenopathy: None. Pelvic viscera: The bladder, uterus, and adnexa are normal as visualized. There are fat-containing gr oin hernia is seen bilaterally. Skeletal structures: No lytic or blastic lesions are seen. Soft tissues: There is body wall edema. IMPRESSION: 1. The liver is enlarged, steatotic, and with morphological changes of cirrhosis. 2. There is nonspecific wall thickening and edema of the right colon, likely representing portal colo flaquito. Clinical correlation will be required. 3. Findings suggest gastritis. Clinical correlation will be required. 4. Splenomegaly, esophageal varices, and abdominopelvic ascites indicate portal hypertension. 5. There are trace pleural effusions with dependent atelectasis. These have decreased from previous. 6.Additional findings as above. ACT 112: Negative or not required by law. Electronically signed by: Brodie Gillis M.D. 03/25/2022 12:05 PM
[2022-03-25] MEDS ORDERED: CEFEPIME 2,000 MG/20 ML VIAL IV STA (12:20)
[2022-03-25] MEDS ORDERED: CALCIUM GLUCONATE 1,000 MG/60 ML BAG IV STA (12:28)
[2022-03-25] MEDS ORDERED: MAGNESIUM SULFATE / D5W 1 GM/100 ML BAG IV STA (12:29)
--- NOTE | 2022-03-25 13:03 | History & Physical Report ---
Date of Service March 25, 2022 Assessment & Plan (1) Decompensated hepatic cirrhosis: (2) Jaundice: (3) Acute on chronic alcoholic liver disease: (4) Hyperbilirubinemia: Plan: - Admit to med surg for readmission - Previously pt refused to stay yesterday for paracentesis on 03/23, unable to be done as outpatient on the 24 of March, and was supposed to try and get one outpatient on 03/25 but was unable to be done. - Paracentesis being done in the ER - Bili is elevated today at 34 where previously was around 26-27 at its best, was as high as 41.9. - MELD score today is 27 based on last normal creatinine. Her labs are icteric today and therefore some labs were unable to be run here, requiring send out to lab facility. 19.6 % Estimated 3 month mortality. - Consulted GI - during last admission recieved NAC protocol, Trental 400 mg TID, within past week and now returns with similar presentation - their team recommending possible transfer for hepatology consult due to severity of her disease, persistent elevated bilirubin, and repeat paracentesis. She was unable to get paracentesis due scheduling and the holiday weekend. - Consider checking AFP for hepatocellular carcinoma with elevated MELD - Last drink was 1 week ago - cessation strongly encouraged as she must stop drinking to be eligible for a liver transplant - Trend labs including cbc, cmp, lfts, mag and phos daily - Most recent admission she was also treated for pneumonia with cefepime and p rednisone, was off those antibiotics and had completed the prednisone taper. (5) Hypomagnesemia: Plan: - Mag 1.1 on admission, being replaced with IV - Hx of hypokalemia but currently K is 3.6, will replace with IV DVT ppx: teds, scds, trend inr daily CODE: FULL Disposition: From home, readmitted, will discharge pending recommendations of GI and transfer to tertiary care pending bed availability/acceptance. UPDATE: 14:44: called and spoke with Dr. Marquez with [facility] [place] transfer center who has accepted the patient - pt has been placed on transfer list however due to bed availability will take 24-48 hours. History of Present Illness Chief Complaint: Abdominal Pain Primary Care Provider: Zaina Bunch MD This is a 37 yo F with PMHx of alcoholic liver cirrhosis, portal HTN, jaundice, ADD, asthma, Chronic anemia who was just recently admitted here for decompensated liver cirrhosis where she underwent three paracentesis procedures for removal of ascitic fluid measuring at least 2 Liters each time. She admits to having worsening abdominal pain, nausea, and back pain. She has been taking lasix and spironolactone as directed with full doses in the morning and smaller doses in the afternoon. She reports low potassium routinely. Pt is not on lactulose. She reports having routinely 3-4 BM daily. Pt report having pus come out of the paracentesis insertion sites starting last night. Denies, fever, chills or sweats. Bili is elevated today at 34 where previously was around 26-27. MELD score today is 27 based on last normal creatinine. Her labs are icteric today and therefore some labs were unable to be run here, requiring send out to lab facility. Allergies Allergy/AdvReac Type Severity Reaction Status Date / Time banana Allergy Intermediate RASH, Verified 03/12/22 01:11 THROAT SLIGHTLY SWOLLEN Penicillins Allergy Unknown HAPPENED Verified 03/12/22 01:11 A CHILD Home Medications Medication Instructions Recorded Confirmed Type albuterol sulfate 90 mcg/actuation 2 inh INHALATION BID PRN 06/24/20 03/25/22 History aerosol inhaler (ProAir HFA) budesonide-formoterol HFA 160 2 puff INHALATION BID 06/20/21 03/25/22 History mcg-4.5 mcg/actuation aerosol inhaler (Symbicort) dextroamphetamine-amphetamine 5 mg 5 mg PO BID 06/20/21 03/25/22 History tablet (Adderall) ipratropium 20 mcg-albuterol 100 1 puff INHALATION BID 06/20/21 03/25/22 History mcg/actuation mist for inhalation (Combivent Respimat) loratadine 10 mg tablet 10 mg PO QAM 06/20/21 03/25/22 History montelukast 10 mg tablet 10 mg PO HS 06/20/21 03/25/22 History omeprazole 20 mg capsule,delayed 20 mg PO QAM 06/20/21 03/25/22 History release azelastine 137 mcg (0.1 %) nasal 1 spray INTRANASAL BID 10/03/21 03/25/22 History spray aerosol fluticasone propionate 50 2 spray INTRANASAL DAILY 10/03/21 03/25/22 History mcg/actuation nasal spray,suspension multivitamin 1 tab PO QAM 10/03/21 03/25/22 History ondansetron HCl 4 mg tablet 4 mg PO Q8H PRN 10/31/21 03/25/22 History furosemide 20 mg tablet 20 mg PO PM 11/20/21 03/25/22 History furosemide 40 mg tablet (Lasix) 40 mg PO QAM 11/20/21 03/25/22 History spironolactone 50 mg tablet 50 mg PO PM 11/20/21 03/25/22 History ascorbic acid (vitamin C) 500 mg 500 mg PO QAM 01/31/22 03/25/22 History tablet (Vitamin C) cholecalciferol (vitamin D3) 50 2,000 mcg PO QAM 01/31/22 03/25/22 History mcg (2,000 unit) capsule (Vitamin D3) hydroxyzine HCl 25 mg tablet 25 mg PO TID PRN 01/31/22 03/25/22 History milk thistle 500 mg capsule 0 mg PO QAM 01/31/22 03/25/22 History spironolactone 100 mg tablet 100 mg PO DAILY 01/31/22 03/25/22 History tiotropium bromide 2.5 2 puff INHALATION DAILY 01/31/22 03/25/22 History mcg/actuation mist for inhalation (Spiriva Respimat) zguqtja-uaqt-usfpj-oreg-capryl 0 mg PO QAM 01/31/22 03/25/22 History pentoxifylline 400 mg 400 mg PO TID 30 Days #90 tab 03/23/22 03/25/22 Rx tablet,extended release thiamine HCl (vitamin B1) 100 mg 100 mg PO QAM #30 tab 03/23/22 03/25/22 Rx tablet tramadol 50 mg tablet 50 mg PO Q12H PRN #10 tab 03/23/22 03/25/22 Rx magnesium oxide 400 mg (241.3 mg 400 mg PO DAILY 03/25/22 03/25/22 History magnesium) tablet potassium chloride 20 mEq 20 meq PO DAILY 03/25/22 03/25/22 History tablet,extended release sodium di- and 2 tab PO TID 03/25/22 03/25/22 History monophosphate-potassium phos monobasic 250 mg tablet (Phospha 250 Neutral) Past Med/Surg History Medical History ADD (attention deficit disorder) Alcohol abuse Alcoholic hepatitis Alcoholic pancreatitis Allergic sinusitis Anxiety Asthma Depression Fatty liver History of abdominal paracentesis Tobacco use Surgical History History of esophagogastroduodenoscopy (EGD) Family History Grandmother Breast cancer Grandfather Heart disease Social History Smoking Status: Former smoker Tobacco Type: Cigarettes Cigarettes Per Day: 1-2; Second Hand Exposure: No; Do You Dip or Chew Tobacco: No; Tobacco Cessation Education Requested by Patient: No Hx Alcohol Use: Yes Alcohol type: beer Hx Substance Use: No Preferred Language: Bhutanese 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 Ability: Effective Novelty Candy Maker Required: No Beliefs That Will Affect Care: None marital status: Single Current Living Situation: Significant Other Current Living Situation Comment: Apartment current occupational status: employed How many Children do You have: 0 Other Information That Helps Us Care for You: No Feels Safe at Home: Yes Safety Concerns: Feels Safe At This Time Assistive Devices: None Review of Systems Review of Systems: Constitutional: No fever, sweats or chills Eyes: No diplopia, no worsening or blurred vision ENT: normal hearing, no trouble swallowing Respiratory: No cough, sputum, dyspnea at rest or on exertion Cardiovascular: No chest pain, tightness or palpitations Abdomen: + pain, no nausea, vomiting, diarrhea or constipation. last bm this morning Musculoskeletal: No joint pain, calf pain, swelling Neurologic: No weakness, numbness/tingling, or balance problems Psychiatric: No anxiety or depression Skin: No rash or itch Physical Exam Physical Exam: General: awake, alert, no apparent distress, + jaundice, + obese BMI 32 Head: Normocephalic, atraumatic ENT: PERRL, EOMI, + icteric sclera, no pharyngeal exudate, mucous membranes moist Chest: Clear to auscultation, on room air, no adventitious breath sounds Cardiac: Regular rate and rhythm, no murmur, no JVD, normal peripheral pulses, good capillary refill Abdominal: NABS x 4 quadrants, +distended, + enlarged liver to palpation, , previous LLQ paracentesis sites are clear, no surrounding erythema or edema, no purulent drainage from sites, nontender to palpation, no rebound or guarding Extremities: Normal inspection, no peripheral edema or erythema, calfs nontender to palpation, Psych: Normal mood and affect Skin: very jaundiced, few areas of bruising on the R ankles Neuro: AAO x 3, strength intact bilaterally and rated 5/5, no motor deficits, no asterixis, speech is clear, no peripheral sensory deficits Results & Data Results & Data ([facility]) Vital Signs (Past 12 Hours) Vital Signs Temp Pulse Pulse Resp BP BP Pulse Ox 03/25/22 12:00 105 H 20 125/72 95 03/25/22 10:27 108 H 19 126/70 95 03/25/22 09:01 36.5 C 118 H 20 116/64 Laboratory Results 03/25/22 12:49 Aerobic Blood Culture - Pending Blood Anaerobic Blood Culture - Pending 03/25/22 12:51 Aerobic Blood Culture - Pending Blood Anaerobic Blood Culture - Pending 03/25/22 03/25/22 03/25/22 10:09 10:09 10:09 WBC RBC Hgb Hct MCV MCH MCHC RDW Std Deviation RDW Coeff of Yasmine Plt Count MPV Immature Gran % (Auto) Neut % (Auto) Lymph % (Auto) [place] % (Auto) Eos % (Auto) Baso % (Auto) Neut # (Auto) Lymph # (Auto) [place] # (Auto) Eos # (Auto) Baso # (Auto) Immature Gran # (Auto) Anisocytosis Echinocytes PT 19.6 H INR 1.9 H APTT 34.1 H PTT Ratio 1.2 Sodium 136 Potassium 3.6 Chloride 109 H Carbon Dioxide 18 L Anion Gap 9 BUN 4 L Creatinine TNP Est Cr Clr Drug Dosing TNP Est GFR ( Amer) TNP Est GFR (Non-Af Amer) TNP BUN/Creatinine Ratio TNP Glucose 122 H Calcium 7.9 L Magnesium 1.1 L Total Bilirubin 33.4 H AST 65 H ALT 32 Alkaline Phosphatase TNP Ammonia Total Protein 4.9 L Albumin 3.1 L Globulin 1.8 L Albumin/Globulin Ratio 1.7 Lipase TNP SARS-CoV-2, RNA, NAAT 03/25/22 03/25/22 10:09 09:54 WBC 17.48 H RBC 2.37 L Hgb 8.4 L Hct 24.6 L MCV 103.8 H MCH 35.4 H MCHC 34.1 RDW Std Deviation 90.2 H RDW Coeff of Yasmine 23.8 H Plt Count 110 L MPV 11.2 H Immature Gran % (Auto) 1.2 Neut % (Auto) 86.1 Lymph % (Auto) 5.4 [place] % (Auto) 6.3 Eos % (Auto) 0.9 Baso % (Auto) 0.1 Neut # (Auto) 15.06 H Lymph # (Auto) 0.95 L [place] # (Auto) 1.10 H Eos # (Auto) 0.15 Baso # (Auto) 0.01 Immature Gran # (Auto) 0.21 H Anisocytosis Present Echinocytes 1+ PT INR APTT PTT Ratio Sodium Potassium Chloride Carbon Dioxide Anion Gap BUN Creatinine Est Cr Clr Drug Dosing Est GFR ( Amer) Est GFR (Non-Af Amer) BUN/Creatinine Ratio Glucose Calcium Magnesium Total Bilirubin AST ALT Alkaline Phosphatase Ammonia Total Protein Albumin Globulin Albumin/Globulin Ratio Lipase SARS-CoV-2, RNA, NAAT NEGATIVE Diagnostic Findings Abdomen/Pelvis CT 03/25/22 09:29 CT SCAN OF THE ABDOMEN AND PELVIS WITH IV CONTRAST CLINICAL HISTORY: Generalized abdominal pain. Ascites. COMPARISON STUDY: Recent prior abdominal CT scans, most recently dated 03/17/2022. TECHNIQUE: Following the IV administration of 95 cc of Optiray 320, CT scan of the abdomen and pelvis is performed from the lung bases to the proximal femora. Images are reviewed in the axial, sagittal, and coronal planes. IV contrast was administered without complication. A dose lowering technique was utilized adhering to the principles of ALARA. CT DOSE: 747.71 mGy.cm FINDINGS: Lung bases: The heart is top normal in size noting trace pericardial effusion. There are trace pleural effusions and dependent atelectasis. There is a small hiatal hernia. Esophageal varices are noted. Liver: The contrast-enhanced liver is enlarged, measuring 25.4 cm in length. The liver demonstrates diffusely diminished attenuation indicating steatosis as well as nodularity of the surface contour. There is no intrahepatic biliary ductal dilatation. Hepatic veins and portal veins are patent. There is recanalization of the periumbilical vein. Gallbladder: The gallbladder is contracted and appears thick walled. This is likely related to adjacent hepatocellular disease. Spleen: The spleen is enlarged measuring 19.1 cm in length. Pancreas: Unremarkable. Adrenal glands: Unremarkable. Kidneys: The contrast-enhanced kidneys are normal in size and without hydronephrosis. The kidneys enhance symmetrically. Abdominal vasculature: The abdominal aorta is normal in course and caliber. Bowel: There is diffuse thickening and hyperemia of the gastric mucosa suggesting gastritis. There is wall thickening and edema of the right colon, possibly representing portal colopathy. No bowel obstruction is identified. There is mild colonic diverticulosis without CT evidence of acute diverticulitis. The appendix is normal as visualized. Peritoneum: There is a small volume of abdominopelvic ascites. No intraperitoneal free air is seen. There is a fat and fluid containing umbilical hernia. Lymphadenopathy: None. Pelvic viscera: The bladder, uterus, and adnexa are normal as visualized. There are fat-containing groin hernia is seen bilaterally. Skeletal structures: No lytic or blastic lesions are seen. Soft tissues: There is body wall edema. IMPRESSION: 1. The liver is enlarged, steatotic, and with morphological changes of cirrhosis. 2. There is nonspecific wall thickening and edema of the right colon, likely representing portal colopathy. Clinical correlation will be required. 3. Findings suggest gastritis. Clinical correlation will be required. 4. Splenomegaly, esophageal varices, and abdominopelvic ascites indicate portal hypertension. 5. There are trace pleural effusions with dependent atelectasis. These have decreased from previous. 6.Additional findings as above. ACT 112: Negative or not required by law. Electronically signed by: Brodie Gillis M.D. 03/25/2022 12:05 PM Code Status & VTE Plan Code Status Full code - discussed with patient at bedside Supervising Physician Co-Signing Physician Notes Pt is a 37 y/o F with hx of alcoholic cirrhosis with ascites and portal HTN, ETOH hepatitis, GERSON, asthma, depression admitted for worsening abd distention and nausea. Pt was recently admitted to the hospital for decompensated hepatic cirrhosis and Pneumonia with acute anemia. Needed 2 units of PRBC for anemia Was on Cefepime for pneumonia Needed Paracentesis multiple time: 2 L (03/12/2022), 2 L (03/17/22)and 2.5 on( 03/20/22) ---Cultures have been neg Did receive NAC x2 PE: NAD, jaundice Card: Normal S1/S2, no murmur Lungs: CTA, no crackles Abd: distended, + fluid wave, mild diffuse TTP MSK: b/l mild LE pitting edema Psych: AAOx3, normal affect A/P: Decompensated hepatic cirrhosis: -elevated INR with T bili of 33.4 --- pending Cr -VSS and pt is afebrile and AAOX3 -will continue home Lasix and aldactone dose - GI consulted: recommended transfer for hepatology eval -MELD score of 27 -will continue Cefepime -last ETOH intake was 1 week ago ---- no need for ETOH withdrawal protocol -will continue to trend CBC, CMP and INR - pt is accepted by [facility] [place] ---- if pt remains here tomorrow then repeat Abd US to monitor the ascites Other Chronic conditions: Plan as above Agree with A/P by Kathy Yung PA-C
[2022-03-25] MEDS ORDERED: hydrOXYzine HCl 25 MG TAB PO PRN (16:12)
[2022-03-25] MEDS ORDERED: ACETAMINOPHEN 325 MG TAB PO PRN (16:12)
[2022-03-25] MEDS ORDERED: ONDANSETRON 4 MG OD TAB PO PRN (16:22)
[2022-03-25] MEDS: PENTOXIFYLLINE 400MG EXT REL TAB PO SCH ×2 (16:46→20:46)
[2022-03-25] MEDS: traMADol HCL 50 MG TABLET PO PRN (16:46)
[2022-03-25] MEDS: hydrOXYzine HCl 25 MG TAB PO PRN (17:43)
[2022-03-25] MEDS: POT PHOSPHATE MONOBASIC W/ SOD TAB PO SCH ×2 (17:44→20:46)
[2022-03-25] MEDS ORDERED: Albuterol HFA 8 GM Inhaler (Combivent Respimat P&T Subs) INH SCH (19:00)
[2022-03-25] MEDS ORDERED: Ipratropium HFA Inhaler (Combivent Respimat P&T Subs) INH SCH (19:00)
[2022-03-25] MEDS: oxyCODONE HCL IR 5 MG TAB (IMMEDIATE RELEASE) PO PRN (20:42)
[2022-03-25] MEDS: FUROSEMIDE 20 MG TAB PO SCH (20:44)
[2022-03-25] MEDS: AZELASTINE HCL 0.1% NASAL 200 SPRAYS/27,400 MCG BTL SCH (20:44)
[2022-03-25] MEDS: MONTELUKAST SODIUM 10 MG TABLET PO SCH (20:45)
[2022-03-25] MEDS: SPIRONOLACTONE 25 MG TAB PO SCH (20:47)
[2022-03-25] MEDS ORDERED: IPRATROPIUM BROMIDE/ALBUTEROL respimat INH INH SCH (21:00)
[2022-03-25] MEDS ORDERED: AMPHETAMINE ASP/SULF/DEXTRAMPH 5 MG TAB PO SCH (21:00)
[2022-03-25] MEDS ORDERED: ALBUTEROL HFA 8 GM INHALER INH PRN (21:40)
[2022-03-26 00:02] LABS: Color Urine Orange
[2022-03-26 00:03] LABS: Appearance Urine Slightly Cloudy (Clear)
[2022-03-26 00:22] LABS: Specific Gravity Urine > 1.060 (1.000-1.030)
[2022-03-26 00:25] LABS: Epithelial Cell Urine >30 /lpf (0-5); RBC Urine 0-4 /hpf (0-4)
[2022-03-26 00:26] LABS: Bacteria Urine 1+ (Negative); Mucus Urine Present (None Prsent)
[2022-03-26] MEDS ORDERED: MELATONIN 3 MG TAB PO PRN (01:12)
[2022-03-26] MEDS: ALBUTEROL HFA 8 GM INHALER INH PRN (01:24)
[2022-03-26] MEDS ORDERED: MELATONIN 3 MG TAB PO ONE (01:35)
[2022-03-26] MEDS: oxyCODONE HCL IR 5 MG TAB (IMMEDIATE RELEASE) PO PRN ×2 (04:50→12:56)
[2022-03-26 06:22] LABS: Hematocrit (blood only) 26.1 % (37-47); Hemoglobin 8.9 g/dL (12.0-16.0); Mean Corpuscular Hemoglobin 35.7 pg (25-34); Mean Corpuscular Hgb Conc 34.1 g/dL (32-36); Mean Corpuscular Volume 104.8 fL (80-100); Mean Platelet Volume 10.8 fL (7.4-10.4); Platelet Count 101 K/uL (130-400); RDW Coefficient of Variation 23.3 % (11.5-14.5); Red Blood Count 2.49 M/uL (4.2-5.4)
[2022-03-26] MEDS: hydrOXYzine HCl 25 MG TAB PO PRN ×2 (07:59→16:09)
[2022-03-26] MEDS: ONDANSETRON INJ 2 MG/ML 2 ML VIAL IV PRN ×3 (08:02→22:13)
[2022-03-26 08:06] LABS: Magnesium 1.9 mg/dl (1.7-2.4)
[2022-03-26] MEDS: AMPHETAMINE ASP/SULF/DEXTRAMPH 5 MG TAB PO SCH ×2 (08:07→16:09)
[2022-03-26 08:09] LABS: Alanine Aminotransferase 27 U/L (7-52); Albumin Globulin Ratio 2.1 (0.9-2); Albumin Level 2.9 gm/dl (3.4-5.0); Anion Gap 11 (3-11); Aspartate Aminotransferase 34 U/L (13-39); Bilirubin,Total 34.2 mg/dl (0.2-1.0); Calcium 7.5 mg/dl (8.5-10.1); Carbon Dioxide 19 mmol/L (21-32); Chloride 106 mmol/L (98-107); Globulin 1.4 gm/dl (2.5-4.0); Glucose 94 mg/dl (70-99(Fasting)); Phosphorus 3.2 mg/dl (2.5-4.9); Sodium 136 mmol/L (136-145); Total Protein 4.3 gm/dl (6.0-8.3)
[2022-03-26] MEDS: AZELASTINE HCL 0.1% NASAL 200 SPRAYS/27,400 MCG BTL SCH ×2 (08:09→22:16)
[2022-03-26] MEDS: FLUTICASONE PROPIONATE NA SPR 16 GM BTL SCH (08:09)
[2022-03-26 08:10] LABS: Bilirubin Direct 18.7 mg/dl (0-0.2)
[2022-03-26] MEDS: FLUTICASONE/VILANTEROL 200/25MCG 14 PUFFS/INHALER INH SCH (08:11)
[2022-03-26] MEDS: PENTOXIFYLLINE 400MG EXT REL TAB PO SCH ×3 (08:11→22:16)
[2022-03-26] MEDS: UMECLIDINIUM BROMIDE 62.5MCG/BLISTER 7 PUFFS/INHALER INH SCH (08:11)
[2022-03-26] MEDS ORDERED: THIAMINE HCL 100 MG TAB PO SCH (09:00)
[2022-03-26] MEDS ORDERED: POTASSIUM CHLORIDE CRTAB 20 MEQ TABCR PO SCH (09:00)
[2022-03-26] MEDS ORDERED: MULTIVITAMIN TAB PO SCH (09:00)
[2022-03-26] MEDS ORDERED: PANTOprazole 40 MG TAB PO SCH (09:00)
[2022-03-26] MEDS ORDERED: CHOLECALCIFEROL 1,000 UNITS 25 MCG TAB PO SCH (09:00)
[2022-03-26] MEDS ORDERED: FUROSEMIDE 40 MG TAB PO SCH (09:00)
[2022-03-26] MEDS ORDERED: SPIRONOLACTONE 100 MG TAB PO SCH (09:00)
[2022-03-26] MEDS ORDERED: LORATADINE 10 MG TAB PO SCH (09:00)
[2022-03-26] MEDS ORDERED: MAGNESIUM OXIDE 400 MG TAB PO SCH (09:00)
[2022-03-26] MEDS ORDERED: ASCORBIC ACID 500 MG TAB PO SCH (09:00)
[2022-03-26] MEDS ORDERED: AMPHETAMINE ASP/SULF/DEXTRAMPH 5 MG TAB PO SCH (09:00)
[2022-03-26] MEDS: POT PHOSPHATE MONOBASIC W/ SOD TAB PO SCH ×3 (09:25→22:15)
--- NOTE | 2022-03-26 11:09 | Gastrointestinal Consultation ---
Date of Consultation March 26, 2022 Assessment & Plan (1) Cirrhosis: (2) Hyperbilirubinemia: (3) Hypomagnesemia: (4) Acute on chronic alcoholic liver disease: (5) Jaundice: (6) Alcohol abuse: 37 y/o female with decompensated ETOH cirrhosis, alc hep with recent admission for the same, also had PNA, now re-admitted w/ nausea, abd distention. Elevated bilirubin and jaundice persists. She is not encephalopathic today. CTAP w/ small ascites. Pt eating and having regular BMs. No obvious GIB, HE today. Given her complexity, persistently abnormal labs, elevated MELD, lack of significant improvement despite our efforts here, along with her increased short-term risk for mortality, we are recommending she be evaluated at a tertiary facility with transplant capabilities to decide whether she is a transplant candidate, and if not, for further recommendations/opinion. This was discussed with her hospital team, her and her mother. It was also strongly encouraged for her to avoid ETOH completely. It appears she has been accepted for transfer but is awaiting a bed. - Continue daily PPI - Continue ABX as per primary team - Monitor and document GI output - Continue Trental - Trend daily MELD labs, CBC, INR - Monitor mental status closely - Paracentesis PRN - Low Na diet < 2 gm daily - Avoid Tylenol > 2 gm daily if using - GI will sign off, please call with questions Thank you for allowing us to participate in the care of this patient. Please call with any acute changes, questions or concerns. Please see addendum below with additional recommendation from my supervising physician. Supervising Physician Co-Signing Physician Notes I saw and evaluated the patient. The patient has a history of alcohol abuse and is presently still drinking alcohol. She was recently admitted to the hospital and started on pentoxifylline for suspected alcoholic hepatitis. The patient presented to the hospital with recurrent discomfort thought to be related to intra-abdominal ascites. Physical examination Scleral icterus noted Asterixis noted Meld score 27 Impression: Patient with a history of alcoholic liver disease on therapy for suspected acute alcoholic hepatitis with pentoxifylline. Her present meld score is 27 which translates to a 19.6% 3-month mortality. Given this and her lack of improvement with pentoxifylline I would recommend referral to a tertiary care center with transplantation capabilities to determine if this patient is a liver transplant candidate. This was explained to both the patient and her mother at great length today. Would recommend that the patient continue with port of care, paracentesis as needed for comfort, and toxic filing. The patient should be transferred to a tertiary care center with transplant capabilities at next available. Please call with any additional questions or concerns, GI to sign off History of Present Illness Attending Physician: Yin Palumbo MD History of Present Illness This is a 37 y/o F with hx of alcoholic cirrhosis with ascites and portal HTN, pancreatitis, ETOH hepatitis, GERSON, asthma, depression. She was very recently admitted to the hospital for decompensated hepatic cirrhosis and Pneumonia with acute anemia; had small volume paracentesis multiple time: 2 L (03/12/2022), 2 L (03/17/22)and 2.5 on( 03/20/22). Was tx w/ NAC for concern for alc hep, and also placed on Trental. Now re-admitted for worsening abd distention and nausea. On arrival CT w/ small ascites, labs w/ hypomagnesemia, elevated bili (34, previously was 26-27), INR 1.9, plt 101, HGB 8.9, WBC 17, creatinine unable to be calculated d/t icterus, has elevated MELD of 27 based on last creatinine, with an estimated 20% 3-month mortality.. Bowels move 3-4 x a day. No BM today. She is taking her diuretic and Trental as directed as OP. No melena, hematochezia, ever, chills, hematemesis. She's on ABX for previous PNA. No ETOH since before last admission. Today she had some yogurt and berries for breakfast. Mom at bedside. Most recent EGD was in November 2021, portal hypertensive gastropathy, no varices. Has not undergone colonoscopy. Allergies Allergy/AdvReac Type Severity Reaction Status Date / Time banana Allergy Intermediate RASH, Verified 03/12/22 01:11 THROAT SLIGHTLY SWOLLEN Penicillins Allergy Unknown HAPPENED Verified 03/12/22 01:11 A CHILD Home Medications Medication Instructions Recorded Confirmed Type albuterol sulfate 90 mcg/actuation 2 inh INHALATION BID PRN 06/24/20 03/25/22 History aerosol inhaler (ProAir HFA) budesonide-formoterol HFA 160 2 puff INHALATION BID 06/20/21 03/25/22 History mcg-4.5 mcg/actuation aerosol inhaler (Symbicort) dextroamphetamine-amphetamine 5 mg 5 mg PO BID 06/20/21 03/25/22 History tablet (Adderall) ipratropium 20 mcg-albuterol 100 1 puff INHALATION BID 06/20/21 03/25/22 History mcg/actuation mist for inhalation (Combivent Respimat) loratadine 10 mg tablet 10 mg PO QAM 06/20/21 03/25/22 History montelukast 10 mg tablet 10 mg PO HS 06/20/21 03/25/22 History omeprazole 20 mg capsule,delayed 20 mg PO QAM 06/20/21 03/25/22 History release azelastine 137 mcg (0.1 %) nasal 1 spray INTRANASAL BID 10/03/21 03/25/22 History spray aerosol fluticasone propionate 50 2 spray INTRANASAL DAILY 10/03/21 03/25/22 History mcg/actuation nasal spray,suspension multivitamin 1 tab PO QAM 10/03/21 03/25/22 History ondansetron HCl 4 mg tablet 4 mg PO Q8H PRN 10/31/21 03/25/22 History furosemide 20 mg tablet 20 mg PO PM 11/20/21 03/25/22 History furosemide 40 mg tablet (Lasix) 40 mg PO QAM 11/20/21 03/25/22 History spironolactone 50 mg tablet 50 mg PO PM 11/20/21 03/25/22 History ascorbic acid (vitamin C) 500 mg 500 mg PO QAM 01/31/22 03/25/22 History tablet (Vitamin C) cholecalciferol (vitamin D3) 50 2,000 mcg PO QAM 01/31/22 03/25/22 History mcg (2,000 unit) capsule (Vitamin D3) hydroxyzine HCl 25 mg tablet 25 mg PO TID PRN 01/31/22 03/25/22 History milk thistle 500 mg capsule 0 mg PO QAM 01/31/22 03/25/22 History spironolactone 100 mg tablet 100 mg PO DAILY 01/31/22 03/25/22 History tiotropium bromide 2.5 2 puff INHALATION DAILY 01/31/22 03/25/22 History mcg/actuation mist for inhalation (Spiriva Respimat) iwmvbix-ztnd-vaalp-oreg-capryl 0 mg PO QAM 01/31/22 03/25/22 History pentoxifylline 400 mg 400 mg PO TID 30 Days #90 tab 03/23/22 03/25/22 Rx tablet,extended release thiamine HCl (vitamin B1) 100 mg 100 mg PO QAM #30 tab 03/23/22 03/25/22 Rx tablet tramadol 50 mg tablet 50 mg PO Q12H PRN #10 tab 03/23/22 03/25/22 Rx magnesium oxide 400 mg (241.3 mg 400 mg PO DAILY 03/25/22 03/25/22 History magnesium) tablet potassium chloride 20 mEq 20 meq PO DAILY 03/25/22 03/25/22 History tablet,extended release sodium di- and 2 tab PO TID 03/25/22 03/25/22 History monophosphate-potassium phos monobasic 250 mg tablet (Phospha 250 Neutral) Patient History Medical History ADD (attention deficit disorder) Alcohol abuse Alcoholic hepatitis Alcoholic pancreatitis Allergic sinusitis Anxiety Asthma Depression Fatty liver History of abdominal paracentesis Tobacco use Surgical History History of esophagogastroduodenoscopy (EGD) Family History Grandmother Breast cancer Grandfather Heart disease Social History Smoking Status: Former smoker Tobacco Type: Cigarettes Cigarettes Per Day: 1-2; Smoking End Date: October 2021; Second Hand Exposure: No; Do You Dip or Chew Tobacco: No; Tobacco Cessation Education Requested by Patient: No Hx Alcohol Use: Yes Alcohol type: beer Hx Substance Use: No Preferred Language: Micronesian 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 Ability: Effective Fish Peddler Required: No Beliefs That Will Affect Care: None marital status: Single Current Living Situation: Significant Other Current Living Situation Comment: Apartment current occupational status: employed How many Children do You have: 0 Other Information That Helps Us Care for You: No Feels Safe at Home: Yes Safety Concerns: Feels Safe At This Time Assistive Devices: None Review of Systems Review of Systems: All systems reviewed & are unremarkable except as noted in HPI & below Physical Exam Constitutional: NAD, chronically ill Eyes: + icterus Neck: trachea midline, no thyromegaly Respiratory: normal respiratory effort, lungs clear to auscultation Cardiovascular: RRR, no murmur, no edema Gastrointestinal (Abdomen): BS x 4 quadrants, + distended, nontender Skin: jaundice Psychiatric: A+Ox3, euthymic affect no asterixis Results & Data ([facility]) Vital Signs (Past 12 Hours) Vital Signs Temp Pulse Resp BP Pulse Ox Pulse Ox 03/26/22 09:24 106/65 03/26/22 08:00 96 03/26/22 06:27 36.7 C 96 H 16 97/61 L 95 03/26/22 01:24 101 H 18 97 03/25/22 23:34 37.1 C 101 H 18 118/70 97 Laboratory Results 03/26/22 03/26/22 03/26/22 Range/Units 05:49 05:49 05:49 WBC 17.70 H (4.8-10.8) K/uL RBC 2.49 L (4.2-5.4) M/uL Hgb 8.9 L (12.0-16.0) g/dL Hct 26.1 L (37-47) % MCV 104.8 H (80-100) fL MCH 35.7 H (25-34) pg MCHC 34.1 (32-36) g/dL RDW Std Deviation 89.0 H (36.4-46.3) fL RDW Coeff of Yasmine 23.3 H (11.5-14.5) % Plt Count 101 L (130-400) K/uL MPV 10.8 H (7.4-10.4) fL Anisocytosis Echinocytes Sodium 136 (136-145) mmol/L Potassium 3.0 L (3.5-5.1) mmol/L Chloride 106 (98-107) mmol/L Carbon Dioxide 19 L (21-32) mmol/L Anion Gap 11 (3-11) BUN TNP (6-23) mg/dl Creatinine TNP Est Cr Clr Drug Dosing TNP Est GFR ( Amer) TNP Est GFR (Non-Af Amer) TNP BUN/Creatinine Ratio TNP Glucose 94 (70-99(Fasting)) mg/dl Calcium 7.5 L (8.5-10.1) mg/dl Phosphorus 3.2 (2.5-4.9) mg/dl Magnesium 1.9 (1.7-2.4) mg/dl Total Bilirubin 34.2 H (0.2-1.0) mg/dl Direct Bilirubin 18.7 H (0-0.2) mg/dl AST 34 (13-39) U/L ALT 27 (7-52) U/L Alkaline Phosphatase TNP Ammonia (18-72) umol/L Total Protein 4.3 L (6.0-8.3) gm/dl Albumin 2.9 L (3.4-5.0) gm/dl Globulin 1.4 L (2.5-4.0) gm/dl Albumin/Globulin Ratio 2.1 H (0.9-2) Lipase Urine Color Urine Appearance (Clear) Urine pH (4.5-7.5) Ur Specific [place] (1.000-1.030) Urine Protein (Negative) Urine Glucose (UA) (Negative) Urine Ketones (Negative) Urine Blood (Negative) Urine Nitrite (Negative) Urine Bilirubin (Negative) Urine Urobilinogen (Negative) Ur Leukocyte Esterase (Negative) Urine RBC (0-4) /hpf Urine WBC (0-5) /hpf Ur Epithelial Cells (0-5) /lpf Urine Bacteria (Negative) Urine Mucus (None Prsent) Urine Yeast (None Prsent) Miscellaneous Test Pending Miscellaneous Test 2 Pending Miscellaneous Test 3 Miscellaneous Test 4 03/25/22 03/25/22 03/25/22 Range/Units 23:36 14:03 10:11 WBC (4.8-10.8) K/uL RBC (4.2-5.4) M/uL Hgb (12.0-16.0) g/dL Hct (37-47) % MCV (80-100) fL MCH (25-34) pg MCHC (32-36) g/dL RDW Std Deviation (36.4-46.3) fL RDW Coeff of Yasmine (11.5-14.5) % Plt Count (130-400) K/uL MPV (7.4-10.4) fL Anisocytosis Echinocytes Sodium (136-145) mmol/L Potassium (3.5-5.1) mmol/L Chloride (98-107) mmol/L Carbon Dioxide (21-32) mmol/L Anion Gap (3-11) BUN (6-23) mg/dl Creatinine Est Cr Clr Drug Dosing Est GFR ( Amer) Est GFR (Non-Af Amer) BUN/Creatinine Ratio Glucose (70-99(Fasting)) mg/dl Calcium (8.5-10.1) mg/dl Phosphorus (2.5-4.9) mg/dl Magnesium (1.7-2.4) mg/dl Total Bilirubin (0.2-1.0) mg/dl Direct Bilirubin (0-0.2) mg/dl AST (13-39) U/L ALT (7-52) U/L Alkaline Phosphatase Ammonia (18-72) umol/L Total Protein (6.0-8.3) gm/dl Albumin (3.4-5.0) gm/dl Globulin (2.5-4.0) gm/dl Albumin/Globulin Ratio (0.9-2) Lipase Urine Color [place] Urine Appearance Slightly Cloudy (Clear) Urine pH (4.5-7.5) Ur Specific [place] > 1.060 H (1.000-1.030) Urine Protein (Negative) Urine Glucose (UA) (Negative) Urine Ketones (Negative) Urine Blood (Negative) Urine Nitrite (Negative) Urine Bilirubin (Negative) Urine Urobilinogen (Negative) Ur Leukocyte Esterase (Negative) Urine RBC 0-4 (0-4) /hpf Urine WBC 5-10 H (0-5) /hpf Ur Epithelial Cells >30 H (0-5) /lpf Urine Bacteria 1+ H (Negative) Urine Mucus Present A (None Prsent) Urine Yeast Budding A (None Prsent) Miscellaneous Test Pending Miscellaneous Test 2 REPORT Miscellaneous Test 3 REPORT Miscellaneous Test 4 REPORT 03/25/22 03/25/22 03/25/22 Range/Units 10:09 10:09 10:09 WBC (4.8-10.8) K/uL RBC (4.2-5.4) M/uL Hgb (12.0-16.0) g/dL Hct (37-47) % MCV (80-100) fL MCH (25-34) pg MCHC (32-36) g/dL RDW Std Deviation (36.4-46.3) fL RDW Coeff of Yasmine (11.5-14.5) % Plt Count (130-400) K/uL MPV (7.4-10.4) fL Anisocytosis Present Echinocytes 1+ Sodium 136 (136-145) mmol/L Potassium 3.6 (3.5-5.1) mmol/L Chloride 109 H (98-107) mmol/L Carbon Dioxide 18 L (21-32) mmol/L Anion Gap 9 (3-11) BUN 4 L (6-23) mg/dl Creatinine TNP Est Cr Clr Drug Dosing TNP Est GFR ( Amer) TNP Est GFR (Non-Af Amer) TNP BUN/Creatinine Ratio TNP Glucose 122 H (70-99(Fasting)) mg/dl Calcium 7.9 L (8.5-10.1) mg/dl Phosphorus (2.5-4.9) mg/dl Magnesium 1.1 L (1.7-2.4) mg/dl Total Bilirubin 33.4 H (0.2-1.0) mg/dl Direct Bilirubin (0-0.2) mg/dl AST 65 H (13-39) U/L ALT 32 (7-52) U/L Alkaline Phosphatase TNP Ammonia (18-72) umol/L Total Protein 4.9 L (6.0-8.3) gm/dl Albumin 3.1 L (3.4-5.0) gm/dl Globulin 1.8 L (2.5-4.0) gm/dl Albumin/Globulin Ratio 1.7 (0.9-2) Lipase TNP Urine Color Urine Appearance (Clear) Urine pH (4.5-7.5) Ur Specific [place] (1.000-1.030) Urine Protein (Negative) Urine Glucose (UA) (Negative) Urine Ketones (Negative) Urine Blood (Negative) Urine Nitrite (Negative) Urine Bilirubin (Negative) Urine Urobilinogen (Negative) Ur Leukocyte Esterase (Negative) Urine RBC (0-4) /hpf Urine WBC (0-5) /hpf Ur Epithelial Cells (0-5) /lpf Urine Bacteria (Negative) Urine Mucus (None Prsent) Urine Yeast (None Prsent) Miscellaneous Test Miscellaneous Test 2 Miscellaneous Test 3 Miscellaneous Test 4 Diagnostic Findings CTAP Lung bases: The heart is top normal in size noting trace pericardial effusion. There are trace pleural effusions and dependent atelectasis. There is a small hiatal hernia. Esophageal varices are noted. Liver: The contrast-enhanced liver is enlarged, measuring 25.4 cm in length. The liver demonstrates diffusely diminished attenuation indicating steatosis as well as nodularity of the surface contour. There is no intrahepatic biliary ductal dilatation. Hepatic veins and portal veins are patent. There is recanalization of the periumbilical vein. Gallbladder: The gallbladder is contracted and appears thick walled. This is likely related to adjacent hepatocellular disease. Spleen: The spleen is enlarged measuring 19.1 cm in length. Pancreas: Unremarkable. Adrenal glands: Unremarkable. Kidneys: The contrast-enhanced kidneys are normal in size and without hydronep hrosis. The kidneys enhance symmetrically. Abdominal vasculature: The abdominal aorta is normal in course and caliber. Bowel: There is diffuse thickening and hyperemia of the gastric mucosa suggesti ng gastritis. There is wall thickening and edema of the right colon, possibly representing portal colopathy. No bowel obstruction is identified. There is mild colonic diverticulosis without CT evidence of acute diverticulitis. The appendix is normal as visualized. Peritoneum: There is a small volume of abdominopelvic ascites. No intraperitoneal free air is seen. There is a fat and fluid containing umbilical hernia. Lymphadenopathy: None. Pelvic viscera: The bladder, uterus, and adnexa are normal as visualized. There are fat-containing groin hernia is seen bilaterally. Skeletal structures: No lytic or blastic lesions are seen. Soft tissues: There is body wall edema. IMPRESSION: 1. The liver is enlarged, steatotic, and with morphological changes of cirrhosis. 2. There is nonspecific wall thickening and edema of the right colon, likely representing portal colopathy. Clinical correlation will be required. 3. Findings suggest gastritis. Clinical correlation will be required. 4. Splenomegaly, esophageal varices, and abdominopelvic ascites indicate portal hypertension. 5. There are trace pleural effusions with dependent atelectasis. These have decreased from previous. 6.Additional findings as above. (1) Cirrhosis Ascites presence: with ascites Hepatic cirrhosis type: alcoholic cirrhosis Qualified Code(s): K70.31 - Alcoholic cirrhosis of liver with ascites
[2022-03-26] MEDS: traMADol HCL 50 MG TABLET PO PRN ×2 (11:10→22:19)
--- NOTE | 2022-03-26 14:33 | Hospitalist Progress Note ---
Date of Service March 26, 2022 Assessment & Plan (1) Decompensated hepatic cirrhosis: (2) Jaundice: (3) Acute on chronic alcoholic liver disease: (4) Hyperbilirubinemia: Plan: Previously pt refused to stay yesterday for paracentesis on 03/23, unable to be done as outpatient on the 24 of March, and was supposed to try and get one outpatient on 03/25 but was unable to be done. Bili is elevated on presentation at 34 where previously was around 26-27 at its best, was as high as 41.9. MELD score of 27 based on last normal creatinine. Icteric labs. GI consulted. Recommend transfer to tertiary center for continued eval and management. Needs liver transplant workup Last drink was 1 week ago Counseled extensively on need for alcohol cessation Trend labs including cbc, cmp, lfts, mag and phos daily Most recent admission she was also treated for pneumonia with cefepime and prednisone, was off those antibiotics and had completed the prednisone taper. Leukocytosis. May be related to recent steroid. Monitor off antibiotics for now USS paracentesis ordered [place] [facility] [place] and they confirmed patient is accepted to Dr Simpson and hopeful bed availability within 24h (5) Hypomagnesemia: Plan: - Mag 1.1 on admission Repleted Mag is 1.9 today Hypokalemia today at 3 Continue po potassium chloride and potassium phosp Monitor electrolytes DVT ppx: teds, scds, trend inr daily CODE: FULL Disposition:Awaiting transfer Admission and Anticipated Discharge Date Admission Date: March 25, 2022 Subjective 37 yo F with PMHx of alcoholic liver cirrhosis, portal HTN, jaundice, ADD, asthma, Chronic anemia who was just recently admitted here for decompensated liver cirrhosis where she underwent three paracentesis procedures for removal of ascitic fluid who presented with worsening abd distention/pain and back pain. Patient seen and examined Reports abd distention and pain. States that pain is due to distention Reports dry cough. Denied chest pain Reports shortness of breath occasionally with activity Denied fever, nausea, vomiting today Denied constipation Denied dysuria, freq, urgency Has jaundice Review of Systems Review of Systems: All systems reviewed & are unremarkable except as noted in Subjective Physical Exam Constitutional: + well hydrated and + obese; no acute distress Eyes: PERRL and EOM intact bilaterally +icterus ENMT: external ear and nose normal, oropharynx normal Respiratory: normal respiratory effort, lungs clear to auscultation Cardiovascular: Rate/Rhythm: regular rate and regular rhythm S1 S2 Gastrointestinal (Abdomen): Abdomen is distended, soft, no tenderness or guarding, normal bowel sounds Musculoskeletal: No pedal edema Skin: +jaundiced skin Neurologic: PERRL, EOMI, accommodation nl, no face palsy, no dysarthria Psychiatric: A+Ox3, euthymic affect Results & Data Results & Data ([facility]) Vital Signs (Past 12 Hours) Vital Signs Temp Pulse Resp BP Pulse Ox Pulse Ox 03/26/22 09:24 106/65 03/26/22 08:00 96 03/26/22 06:27 36.7 C 96 H 16 97/61 L 95 Laboratory Results Abnormal lab results 03/25/22 03/26/22 03/26/22 Range/Units 23:36 05:49 05:49 WBC 17.70 H (4.8-10.8) K/uL RBC 2.49 L (4.2-5.4) M/uL Hgb 8.9 L (12.0-16.0) g/dL Hct 26.1 L (37-47) % MCV 104.8 H (80-100) fL MCH 35.7 H (25-34) pg RDW Std Deviation 89.0 H (36.4-46.3) fL RDW Coeff of Yasmine 23.3 H (11.5-14.5) % Plt Count 101 L (130-400) K/uL MPV 10.8 H (7.4-10.4) fL Potassium 3.0 L (3.5-5.1) mmol/L Carbon Dioxide 19 L (21-32) mmol/L Calcium 7.5 L (8.5-10.1) mg/dl Total Bilirubin 34.2 H (0.2-1.0) mg/dl Direct Bilirubin 18.7 H (0-0.2) mg/dl Total Protein 4.3 L (6.0-8.3) gm/dl Albumin 2.9 L (3.4-5.0) gm/dl Globulin 1.4 L (2.5-4.0) gm/dl Albumin/Globulin Ratio 2.1 H (0.9-2) Ur Specific [place] > 1.060 H (1.000-1.030) Urine WBC 5-10 H (0-5) /hpf Ur Epithelial Cells >30 H (0-5) /lpf Urine Bacteria 1+ H (Negative) Urine Mucus Present A (None Prsent) Urine Yeast Budding A (None Prsent)
--- NOTE | 2022-03-26 15:25 | Ultrasound Report ---
ULTRASOUND GUIDED DIAGNOSTIC PARACENTESIS CLINICAL HISTORY: Decompensated cirrhosis with ascites. COMPARISON STUDY: CT of the abdomen and pelvis March 25, 2022. PROCEDURE: Sonography of the abdomen and pelvis demonstrate a small amount of ascites insufficient fo r therapeutic paracentesis. However, sufficient fluid was noted for diagnostic paracentesis. The risk s, benefits, and alternatives to the procedure were discussed with the patient including the risk of bleeding, infection and injury to adjacent structures. The patient agreed to the procedure and [facility] written consent was obtained. Following real-time ultrasound localization, the skin of the left l ower quadrant was prepped and draped. Following local anesthesia with Xylocaine, the sheath paracente sis needle was inserted and 50 cc of straw-colored fluid was removed by vacuum suction. The patient tolerated the procedure well and no immediate complications were evident. IMPRESSION: Ultrasound-guided paracentesis with removal of 50 cc of ascites which was sent to the [facility] for analysis as ordered. ACT 112: Negative or not required by law. Electronically signed by: Luis Zarate M.D. 03/26/2022 3:23 PM
[2022-03-26 16:35] LABS: Albumin Peritoneal Fluid < 1.5 gm/dl; Glucose Peritoneal Fluid 122 mg/dl; LDH Peritoneal Fluid 38 U/L; Total Protein Peritoneal Fluid < 3.0 gm/dl
[2022-03-26] MEDS: IPRATROPIUM BROMIDE HFA INHALER INH PRN (17:34)
--- NOTE | 2022-03-26 19:00 | Discharge Summary ---
Date of Service March 27, 2022 Admission HPI Per Admitting Provider This is a 37 yo F with PMHx of alcoholic liver cirrhosis, portal HTN, jaundice, ADD, asthma, Chronic anemia who was just recently admitted here for decompensated liver cirrhosis where she underwent three paracentesis procedures for removal of ascitic fluid measuring at least 2 Liters each time. She admits to having worsening abdominal pain, nausea, and back pain. She has been taking lasix and spironolactone as directed with full doses in the morning and smaller doses in the afternoon. She reports low potassium routinely. Pt is not on lactulose. She reports having routinely 3-4 BM daily. Pt report having pus come out of the paracentesis insertion sites starting last night. Denies, fever, chills or sweats. Bili is elevated today at 34 where previously was around 26-27. MELD score today is 27 based on last normal creatinine. Her labs are icteric today and therefore some labs were unable to be run here, requiring send out to lab facility. Admission Exam Per Admitting Provider General: awake, alert, no apparent distress, + jaundice, + obese BMI 32 Head: Normocephalic, atraumatic ENT: PERRL, EOMI, + icteric sclera, no pharyngeal exudate, mucous membranes moist Chest: Clear to auscultation, on room air, no adventitious breath sounds Cardiac: Regular rate and rhythm, no murmur, no JVD, normal peripheral pulses, good capillary refill Abdominal: NABS x 4 quadrants, +distended, + enlarged liver to palpation, , previous LLQ paracentesis sites are clear, no surrounding erythema or edema, no purulent drainage from sites, nontender to palpation, no rebound or guarding Extremities: Normal inspection, no peripheral edema or erythema, calfs nontender to palpation, Psych: Normal mood and affect Skin: very jaundiced, few areas of bruising on the R ankles Neuro: AAO x 3, strength intact bilaterally and rated 5/5, no motor deficits, no asterixis, speech is clear, no peripheral sensory deficits Principal Diagnosis Decompensated liver cirrhosis Hyperbilirubinemia Discharge Data Allergies Allergy/AdvReac Type Severity Reaction Status Date / Time banana Allergy Intermediate RASH, Verified 03/12/22 01:11 THROAT SLIGHTLY SWOLLEN Penicillins Allergy Unknown HAPPENED Verified 03/12/22 01:11 A CHILD Consultations 03/25/22 12:52 ED Decision to Admit Stat 03/25/22 13:22 Consult Gastroenterology Routine Ordered Studies 03/25/22 09:29 CT abd pelvis IV con only Stat Lung bases: The heart is top normal in size noting trace pericardial effusion. There are trace pleural effusions and dependent atelectasis. There is a small hiatal hernia. Esophageal varices are noted. Liver: The contrast-enhanced liver is enlarged, measuring 25.4 cm in length. The liver demonstrates diffusely diminished attenuation indicating steatosis as well as nodularity of the surface contour. There is no intrahepatic biliary ductal dilatation. Hepatic veins and portal veins are patent. There is recanalization of the periumbilical vein. Gallbladder: The gallbladder is contracted and appears thick walled. This is likely related to adjacent hepatocellular disease. Spleen: The spleen is enlarged measuring 19.1 cm in length. Pancreas: Unremarkable. Adrenal glands: Unremarkable. Kidneys: The contrast-enhanced kidneys are normal in size and without hydronephrosis. The kidneys enhance symmetrically. Abdominal vasculature: The abdominal aorta is normal in course and caliber. Bowel: There is diffuse thickening and hyperemia of the gastric mucosa suggesting gastritis. There is wall thickening and edema of the right colon, possibly representing portal colopathy. No bowel obstruction is identified. There is mild colonic diverticulosis without CT evidence of acute diverticulitis. The appendix is normal as visualized. Peritoneum: There is a small volume of abdominopelvic ascites. No intraperitoneal free air is seen. There is a fat and fluid containing umbilical hernia. Lymphadenopathy: None. Pelvic viscera: The bladder, uterus, and adnexa are normal as visualized. There are fat-containing groin hernia is seen bilaterally. Skeletal structures: No lytic or blastic lesions are seen. Soft tissues: There is body wall edema. IMPRESSION: 1. The liver is enlarged, steatotic, and with morphological changes of cirrhosis. 2. There is nonspecific wall thickening and edema of the right colon, likely representing portal colopathy. Clinical correlation will be required. 3. Findings suggest gastritis. Clinical correlation will be required. 4. Splenomegaly, esophageal varices, and abdominopelvic ascites indicate portal hypertension. 5. There are trace pleural effusions with dependent atelectasis. These have decreased from previous. 6.Additional findings as above. 03/25/22 13:06 US point of care ultrasound Urgent 03/26/22 13:41 US paracentesis abd w/image Urgent Hospital Course (1) Decompensated hepatic cirrhosis: (2) Jaundice: (3) Acute on chronic alcoholic liver disease: (4) Hyperbilirubinemia: Previously pt refused to stay yesterday for paracentesis on 03/23, unable to be done as outpatient on the 24 of March, and was supposed to try and get one outpatient on 03/25 but was unable to be done. Bili is elevated on presentation at 34 where previously was around 26-27 at its best, was as high as 41.9. MELD score of 27 based on last normal creatinine. Icteric labs. GI consulted. Recommend transfer to tertiary center for continued eval and management. Needs liver transplant workup Last drink was 1 week ago Counseled extensively on need for alcohol cessation Most recent admission she was also treated for pneumonia with cefepime and prednisone, was off those antibiotics and had completed the prednisone taper. Leukocytosis. May be related to recent steroid. Monitor off antibiotics for now Follow up peritoneal fluid analysis from paracentesis today. Patient is accepted to Dr Simpson at [facility] (5) Hypomagnesemia: Hypokalemia Mag 1.1 on admission Got IV mag yesterday Hypokalemia Got po repletion Continue po potassium chloride and potassium phosp Monitor electrolytes at [facility] and replete as needed Total Time Total Time Spent Total Time Spent (In Minutes): 25 Total Time Includes: Examination of the Patient, Discharge Planning, Medication Reconciliation and 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 With Other Providers Discharge Plan Discharge Items Patient Disposition: Transfer Acute Care Hospital Reason For Visit: DECOMPENSATED LIVER FAILURE, HYPERBILIRUBINEMIA Discharge Diagnosis: Decompensated cirrhosis Hyperbilirubinemia Activity: Resume your previous activity Non-emergency contact: Primary Care Provider and Mailroom Supervisor Call non-emergency contact if: you have any medication questions Follow-up/Referrals: Zaina Bunch MD [Primary Care Provider] - Diet: Low Sodium (2gm) Fluids: 1800ml (7 cups) Addtl Attending Provider Instructions: You are being transferred to [facility] for further evaluation and management Pending Studies at Discharge: No Stand-Alone Forms: My [facility] Skilled Items Patient informed of condition?: Yes DNR: No Discharge Level of Care: Other Communicable Disease: No Discharge Prognosis: Stable Lines: Peripheral IV Urinary Catheter: No Medications and DC Order Prescriptions: Continued albuterol sulfate [ProAir HFA] 90 mcg/actuation Hfa Aerosol Inhaler 2 inh INHALATION BID PRN (Reason: Shortness Of Breath) RF: 0 omeprazole 20 mg Capsule,Delayed Release(Dr/Ec) 20 mg PO QAM RF: 0 montelukast 10 mg Tablet 10 mg PO HS RF: 0 dextroamphetamine-amphetamine [Adderall] 5 mg Tablet 5 mg PO BID RF: 0 loratadine 10 mg Tablet 10 mg PO QAM RF: 0 budesonide-formoterol [Symbicort] 160-4.5 mcg/actuation Hfa Aerosol Inhaler 2 puff INHALATION BID RF: 0 Combivent Respimat 20-100 mcg/actuation Mist 1 puff INHALATION BID RF: 0 multivitamin Tablet 1 tab PO QAM RF: 0 azelastine 137 mcg (0.1 %) Aerosol,Clarita 1 spray INTRANASAL BID RF: 0 fluticasone propionate 50 mcg/actuation Clarita,Suspension 2 spray INTRANASAL DAILY RF: 0 milk thistle 500 mg Capsule 0 mg PO QAM RF: 0 ascorbic acid (vitamin C) [Vitamin C] 500 mg Tablet 500 mg PO QAM RF: 0 cholecalciferol (vitamin D3) [Vitamin D3] 50 mcg (2,000 unit) Capsule 2,000 mcg PO QAM RF: 0 zfqweqf-nbsr-abvjy-oreg-capryl 0 MG 0 mg PO QAM RF: 0 spironolactone 100 mg tablet 100 mg PO DAILY RF: 0 hydroxyzine HCl 25 mg tablet 25 mg PO TID PRN (Reason: Anxiety) RF: 0 Spiriva Respimat 2.5 mcg/actuation mist 2 puff INHALATION DAILY RF: 0 magnesium oxide 400 mg (241.3 mg magnesium) tablet 400 mg PO DAILY RF: 0 potassium chloride 20 mEq tablet extended release 20 meq PO DAILY RF: 0 Phospha 250 Neutral 250 mg tablet 2 tab PO TID RF: 0 ondansetron HCl 4 mg Tablet 4 mg PO Q8H PRN (Reason: Nausea) RF: 0 furosemide [Lasix] 40 mg Tablet 40 mg PO QAM RF: 0 spironolactone 50 mg Tablet 50 mg PO PM RF: 0 furosemide 20 mg tablet 20 mg PO PM RF: 0 pentoxifylline 400 mg Tablet Extended Release 400 mg PO TID 30 Days Qty: 90 RF: 0 thiamine HCl (vitamin B1) 100 mg Tablet 100 mg PO QAM Qty: 30 RF: 0 tramadol 50 mg Tablet 50 mg PO Q12H PRN (Reason: Pain) Qty: 10 RF: 0 Discharge Orders: Discharge Order (Routine); Ordered 03/26/22 Ordered By: Yin Palumbo Admission Data Admit Date/Time: 03/25/22 13:22 Attending Provider: Yin Palumbo I. Admit Provider: Gayatri Tsang Primary Care Provider: Zaina Bunch Other Providers: Gayatri Tsang ; Sharon Hamilton Other Interventions: Discharge Summary Assessment (RN) Last Done: 03/27/22 00:53
[2022-03-26] MEDS ORDERED: oxyCODONE HCL IR 5 MG TAB (IMMEDIATE RELEASE) PO STA (19:30)
[2022-03-26 19:49] LABS: Appearance Peritoneal Fluid Clear; Color Peritoneal Fluid Yellow; Lymphocytes, Fluid 24 %; Mono,Macrophage,Mesothelial 3 %; Neutrophils, Fluid 73 %; RBC Peritoneal Fluid (A) 2000 /uL; WBC Peritoneal Fluid (A) 46 /ul (0-300)
[2022-03-26] MEDS ORDERED: hydrOXYzine HCl 10 MG TAB PO STA (21:01)
[2022-03-26] MEDS: SPIRONOLACTONE 25 MG TAB PO SCH (22:15)
[2022-03-26] MEDS: MONTELUKAST SODIUM 10 MG TABLET PO SCH (22:15)
[2022-03-26] MEDS: FUROSEMIDE 20 MG TAB PO SCH (22:16)
[2022-03-27] MEDS: oxyCODONE HCL IR 5 MG TAB (IMMEDIATE RELEASE) PO PRN ×2 (00:42→05:29)
[2022-03-27] MEDS: hydrOXYzine HCl 25 MG TAB PO PRN ×2 (00:44→07:36)
[2022-03-27] MEDS: IPRATROPIUM BROMIDE HFA INHALER INH PRN ×2 (00:51→07:49)
[2022-03-27] MEDS: ALBUTEROL HFA 8 GM INHALER INH PRN ×2 (00:51→07:49)
[2022-03-27] MEDS: ONDANSETRON INJ 2 MG/ML 2 ML VIAL IV PRN ×2 (02:10→07:36)
[2022-03-27] MEDS: FLUTICASONE PROPIONATE NA SPR 16 GM BTL SCH (07:14)
[2022-03-27] MEDS: AZELASTINE HCL 0.1% NASAL 200 SPRAYS/27,400 MCG BTL SCH (07:14)
[2022-03-27 07:33] LABS: INR 1.9 (0.9-1.1); Prothrombin Time 19.7 Seconds (9.0-12.0)
[2022-03-27] MEDS: FLUTICASONE/VILANTEROL 200/25MCG 14 PUFFS/INHALER INH SCH (07:40)
[2022-03-27] MEDS: UMECLIDINIUM BROMIDE 62.5MCG/BLISTER 7 PUFFS/INHALER INH SCH (07:40)
[2022-03-27] MEDS: AMPHETAMINE ASP/SULF/DEXTRAMPH 5 MG TAB PO SCH (07:43)
[2022-03-27 07:45] LABS: Bilirubin,Total 35.9 mg/dl (0.2-1.0); Blood Urea Nitrogen 5 mg/dl (6-23); Magnesium 1.3 mg/dl (1.7-2.4)
[2022-03-27 07:46] LABS: Calcium 7.5 mg/dl (8.5-10.1); Carbon Dioxide 22 mmol/L (21-32); Chloride 103 mmol/L (98-107); Glucose 84 mg/dl (70-99(Fasting)); Potassium 2.7 mmol/L (3.5-5.1); Sodium 134 mmol/L (136-145)
[2022-03-27 07:47] LABS: Alanine Aminotransferase 24 U/L (7-52); Albumin Globulin Ratio 1.8 (0.9-2); Anion Gap 9 (3-11); Aspartate Aminotransferase 35 U/L (13-39); Bilirubin Direct 18.3 mg/dl (0-0.2); Globulin 1.7 gm/dl (2.5-4.0); Hematocrit (blood only) 24.4 % (34.1-44.9); Hemoglobin 8.5 g/dl (12.0-16.0); Mean Corpuscular Hemoglobin 35.7 pg (25.0-34.0); Mean Corpuscular Hgb Conc 34.8 g/dL (32.0-36.0); Mean Corpuscular Volume 102.5 fL (80.0-100.0); Mean Platelet Volume 11.7 fL (9.4-12.3); Nucleated RBC # (auto) 0.03 K/uL (0-0); Nucleated RBC % (auto) 0.2 %; Phosphorus 3.1 mg/dl (2.5-4.9); Platelet Count 93 K/uL (130-400); Platelet Estimate Decreased (Normal); RDW Coefficient of Variation 24.1 % (11.5-14.5); Red Blood Count 2.38 M/uL (3.93-5.22); Total Protein 4.7 gm/dl (6.0-8.3); White Blood Count 15.28 K/ul (4.8-10.8)
[2022-03-27] MEDS ORDERED: POTASSIUM CHLORIDE CRTAB 20 MEQ TABCR PO STA (07:48)
[2022-03-27] MEDS: traMADol HCL 50 MG TABLET PO PRN (07:52)
== END 2022-03-27 08:26 | disposition short-term general hospital (02) ==
LOC: ED 08:57 → INTOOBSV 13:22 → SUATTDRO 13:22 → 3E 13:22

== ENCOUNTER 2022-06-30 11:53 | Inpatient (IN) ==
[2022-06-30 12:41] LABS: Basophils # (auto) 0.07 K/uL (0-0.2); Basophils % (auto) 0.8 %; Eosinophils % (auto) 1.1 %; Hematocrit (blood only) 32.5 % (34.1-44.9); Hemoglobin 11.6 g/dl (12.0-16.0); Immature Granulocytes # (auto) 0.02 K/uL (0.00-0.02); Immature Granulocytes % (auto) 0.2 %; Lymphocytes # (auto) 1.97 K/uL (1.2-3.4); Lymphocytes % (auto) 21.8 %; Mean Corpuscular Hemoglobin 29.4 pg (25.0-34.0); Mean Corpuscular Hgb Conc 35.7 g/dL (32.0-36.0); Mean Corpuscular Volume 82.5 fL (80.0-100.0); Mean Platelet Volume 10.2 fL (9.4-12.3); Monocytes # (auto) 0.65 K/uL (0.24-0.82); Monocytes % (auto) 7.2 %; Neutrophils # (auto) 6.24 K/uL (1.4-6.5); Neutrophils % (auto) 68.9 %; Platelet Count 187 K/uL (130-400); RDW Coefficient of Variation 13.1 % (11.5-14.5); RDW Standard Deviation 39.1 fL (36.4-46.3); Red Blood Count 3.94 M/uL (3.93-5.22); White Blood Count 9.05 K/ul (4.8-10.8)
[2022-06-30 12:55] LABS: INR 1.2 (0.9-1.1); Partial Thromboplastin Ratio 1.2; Prothrombin Time 12.5 Seconds (9.0-12.0)
[2022-06-30 13:01] LABS: Albumin Globulin Ratio 1.3 (0.9-2); Albumin Level 4.5 gm/dl (3.4-5.0); BUN Creatinine Ratio 5.8 (10-20); Bilirubin,Total 2.3 mg/dl (0.2-1.0); Calcium 9.5 mg/dl (8.5-10.1); Creatinine Clr Calc Pharmacy 23.1 ml/min; Est GFR (Non-African American) 23.3 ml/min; Globulin 3.4 gm/dl (2.5-4.0); Potassium 3.9 mmol/L (3.5-5.1); Total Protein 7.9 gm/dl (6.0-8.3)
--- NOTE | 2022-06-30 13:01 | CT Scan Report ---
HEAD CT NONCONTRAST CT DOSE: 537.48 mGy.cm HISTORY: Fall: Head Injury TECHNIQUE: Multiaxial CT images of the head were performed without the use of intravenous contrast. A utomated exposure control was utilized for this study. A dose lowering technique was utilized adheri ng to the principles of ALARA. Comparison: Head CT 07/22/2021. Findings: The paranasal sinuses and mastoid air cells are clear. The calvarium and skull base are int act. The ventricles and sulci are within normal limits. There is no mass, hematoma, midline shift, or acute infarct. Impression: No acute intracranial abnormality. ACT 112: Negative or not required by law. Electronically signed by: Weston Cisneros M.D. 06/30/2022 1:00 PM
--- NOTE | 2022-06-30 13:27 | Emergency Department Note ---
Impression & Plan VAN (acute kidney injury), Alcohol abuse, Fall, Closed rib fracture, Alcohol intoxication ED Provider Note NAME: CARMEN BOUCHER AGE: 37 SEX: F : 1985 ARRIVES VIA: Walk-In INFORMANT: Patient ED PROVIDER(S): Zachary Wallace DO CHIEF COMPLAINT: back pain HPI: Patient is a 37-year-old female with a past medical history of alcohol withdrawal, anxiety disorder, cirrhosis, has been in ADD that presents the ER who was recently discharged from treatment facility 2 days ago. She notes that she started drinking this morning around 9:00. She had 2 beers which were 9%. When she was in the bathtub she slipped and lost her balance and hit the back of her head. She believes that she passed out after doing this. She has a headache and frontal head pain. The majority of her pain is in the mid thoracic spine which wraps around onto the right chest. That is an 8 out of 10. Worse with breathing twisting turning or bending. Denies any weakness or numbness. No dysuria urgency or frequency. No other exacerbating or remitting factors. ROS: See above HPI for pertinent positives & negatives. A total of 10 systems reviewed and were otherwise negative. PAST MEDICAL HISTORY:See Below PAST SURGICAL HISTORY:See Below FAMILY HISTORY:See Below SOCIAL HISTORY:See Below HOME MEDICATIONS:See Below ALLERGIES:See Below VITALS:See Below PHYSICAL EXAMINATION: GENERAL: alert, chronically ill-appearing, disheveled HEAD: normal cephalic, atraumatic EYE EXAM: Conjunctive injected OROPHARYNX: mucous membranes are dry CHEST: Tenderness over the right mid axillary ribs tracking anteriorly LUNGS: clear to auscultation. Normal chest wall mechanics HEART: no murmurs, S1 normal and S2 normal ABDOMEN: abdomen soft, non-tender, normo-active bowel sounds, no masses, no rebound or guarding. PELVIS: stable to compression anteriorly and posteriorly BACK: Back is symmetrical on inspection and there is no deformity, midline tenderness in the midthoracic region UPPER EXTREMITIES: full active and passive range of motion of all joints without tenderness to palpation LOWER EXTREMITIES: full active and passive range of motion of all joints without tenderness to palpation NEURO EXAM: Normal sensorium, cranial nerves II-XII grossly intact, normal speech, no gross weakness of arms, no gross weakness of legs. GCS: 15. MEDICAL DECISION MAKING: Patient is a 37-year-old female who presents ER for the above-stated complaint. IV was established blood work was obtained. Labs showed no significant leukocytosis and mild anemia at 11.6 Which is significant improved from previous. BMP with mild hyponatremia 132. Creatinine significantly elevated at 2.5 up from baseline 5.8. T bili up to 2.3 consistent with previous. Alcohol elevated to 60. COVID-negative. CT of the head, cervical spine chest abdomen pelvis shows 2 rib fractures. Patient was given IV morphine but very judiciously his alcohol was elevated. Significant other was present at bedside. They were updated. Discussed with the hospitalist and patient was seen and evaluated admitted to the [facility] service. Patient was given 2 L of IV fluids while in the ER. Triage Nursing notes reviewed. Limited review of prior medical records performed Vital Signs: reviewed and remarkable for tachy Differential diagnosis: Differential diagnoses include major intracranial, cervical, spinal, thoracic, abdominal, pelvic and neurologic injury. Fracture, contusion, sprain, strain, laceration, abrasions included as well. ER treatment provided: See below Diagnostics interpreted by me: ECG: Sinus rhythm rate 88 Normal axis No PVCs T wave inversion in the septal leads Cardiac Monitoring: An order was placed for continuous cardiac monitoring. The monitor shows a rate of 90 with sinus rhythm. Laboratory studies: As stated above and show below. Imaging studies: CT mullen scan as described above. Performed without IV contrast due to elevated creatinine. Did show 2 rib fractures. Consultation(s): Discussed with [facility] for further evaluation Procedures: none Critical Care: None Past Med/Surg History Medical History (Updated 06/30/22 @ 16:36 by Zachary Wallace DO) Acute hyponatremia Acute on chronic alcoholic liver disease ADD (attention deficit disorder) Alcohol abuse Alcohol abuse Alcohol intoxication Alcoholic cirrhosis with abn coags Alcoholic hepatitis Anemia pre-op H&H 04/15/22: 05/15 Anxiety Asthma well controlled with inhalers Decompensated hepatic cirrhosis Depression Fatty liver GERD (gastroesophageal reflux disease) History of abdominal paracentesis History of pancreatitis alcoholic 05/2021 per records Hyperbilirubinemia Hypokalemia Hypomagnesemia Jaundice Pneumonia February 2022 treated at [facility]. denies sob currently Portal hypertension Thrombocytopenia Surgical History H/O wisdom tooth extraction History of esophagogastroduodenoscopy (EGD) Family History Grandmother Breast cancer Grandfather Heart disease Other No family history of adverse response to anesthesia Social History Smoking Status: Former smoker Tobacco Type: Cigarettes Cigarettes Per Day: 1-2; Second Hand Exposure: Yes; Hx Alcohol Use: Yes Alcohol type: beer Hx Substance Use: No Preferred Language: Japanese 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 Ability: Effective Phy Therapist Required: No Beliefs That Will Affect Care: None marital status: Single Current Living Situation: Spouse and Significant Other Current Living Situation Comment: Apartment current occupational status: employed How many Children do You have: 0 Feels Safe at Home: Yes Assistive Devices: None Allergies Allergies Allergy/AdvReac Type Severity Reaction Status Date / Time banana Allergy Intermediate RASH, Verified 04/22/22 07:49 THROAT SLIGHTLY SWOLLEN Penicillins Allergy Unknown HAPPENED Verified 04/22/22 07:49 A CHILD Home Meds Home Medications Medication Instructions Recorded Confirmed albuterol sulfate 90 mcg/actuation 2 inh inhalation BID PRN Shortness 06/24/20 06/30/22 aerosol inhaler (ProAir HFA) Of Breath budesonide-formoterol HFA 160 2 puff inhalation BID 06/20/21 06/30/22 mcg-4.5 mcg/actuation aerosol inhaler (Symbicort) dextroamphetamine-amphetamine 5 mg 5 mg PO BID 06/20/21 06/30/22 tablet (Adderall) ipratropium 20 mcg-albuterol 100 1 puff inhalation BID 06/20/21 06/30/22 mcg/actuation mist for inhalation (Combivent Respimat) loratadine 10 mg tablet 10 mg PO QAM 06/20/21 06/30/22 montelukast 10 mg tablet 10 mg PO HS 06/20/21 06/30/22 omeprazole 20 mg capsule,delayed 20 mg PO QAM 06/20/21 06/30/22 release azelastine 137 mcg (0.1 %) nasal 1 spray intranasal BID 10/03/21 06/30/22 spray aerosol fluticasone propionate 50 2 spray intranasal BID 10/03/21 06/30/22 mcg/actuation nasal spray,suspension multivitamin 1 tab PO QAM 10/03/21 06/30/22 ondansetron HCl 4 mg tablet 4 mg PO Q8H PRN Nausea 10/31/21 06/30/22 furosemide 40 mg tablet (Lasix) 80 mg PO QAM 11/20/21 06/30/22 ascorbic acid (vitamin C) 500 mg 500 mg PO QAM 01/31/22 06/30/22 tablet (Vitamin C) cholecalciferol (vitamin D3) 50 2,000 mcg PO QAM 01/31/22 06/30/22 mcg (2,000 unit) capsule (Vitamin D3) hydroxyzine HCl 25 mg tablet 25 mg PO TID PRN Anxiety 01/31/22 06/30/22 spironolactone 100 mg tablet 200 mg PO QAM 01/31/22 06/30/22 tiotropium bromide 2.5 2 puff inhalation BID 01/31/22 06/30/22 mcg/actuation mist for inhalation (Spiriva Respimat) magnesium oxide 400 mg (241.3 mg 400 mg PO BID 03/25/22 06/30/22 magnesium) tablet potassium chloride 20 mEq 20 meq PO QAM 03/25/22 06/30/22 tablet,extended release sodium di- and 2 tab PO QID 03/25/22 06/30/22 monophosphate-potassium phos monobasic 250 mg tablet (Phospha 250 Neutral) lactulose 10 gram/15 mL oral 30 ml PO QAM 04/17/22 06/30/22 solution nicotine 14 mg/24 hr daily 1 patch transdermal DAILY 04/17/22 06/30/22 transdermal patch Previous Rx's Medication Instructions Recorded thiamine HCl (vitamin B1) 100 mg 100 mg PO QAM #30 tabs 03/23/22 tablet tramadol 50 mg tablet 50 mg PO Q12H PRN Pain #10 tabs 03/23/22 oxycodone 5 mg tablet 5 mg PO Q6 PRN pain #7 tabs 04/15/22 oxycodone-acetaminophen 5 mg-325 1 tab PO Q6H PRN pain #8 tabs 04/22/22 mg tablet (Percocet) Results & Data (ED) Vital Signs Vital Signs - 24 hr 06/30/22 12:11 06/30/22 14:23 Temperature 36.3 C L Temperature Source Temporal Artery Scan Pulse Rate 102 H Pulse Rate [Finger] 90 Pulse Rhythm Regular Pulse Rhythm [Finger] Regular Pulse Strength Normal Pulse Strength [Finger] Normal Respiratory Rate 20 16 Respiratory Effort / Characteristics Non-Labored Spontaneous Non-Labored Spontaneous Respiratory Depth Normal Normal Respiratory Pattern Regular Regular Blood Pressure 109/73 Blood Pressure [Left Arm] 119/73 Blood Pressure Mean 85 Blood Pressure Mean [Left Arm] 88 Blood Pressure Position Sitting Blood Pressure Position [Left Arm] Lying Pulse Oximetry 97 97 Oxygen Delivery Method Room Air Room Air Sepsis Recent Fever Within 48 Hours No Sepsis New/Unexplained Change in Mental Status No Sepsis Action Taken by Nursing No Action Required Laboratory Data Result diagrams: 06/30/22 12:06/30/22 12: Lab Results 06/30/22 06/30/22 06/30/22 Range/Units 12:26 12: 12: WBC 9.05 (4.8-10.8) K/ul RBC 3.94 (3.93-5.22) M/uL Hgb 11.6 L (12.0-16.0) g/dl Hct 32.5 L (34.1-44.9) % MCV 82.5 (80.0-100.0) fL MCH 29.4 (25.0-34.0) pg MCHC 35.7 (32.0-36.0) g/dL RDW Std Deviation 39.1 (36.4-46.3) fL RDW Coeff of Yasmine 13.1 (11.5-14.5) % Plt Count 187 (130-400) K/uL MPV 10.2 (9.4-12.3) fL Immature Gran % (Auto) 0.2 % Neut % (Auto) 68.9 % Lymph % (Auto) 21.8 % Miner % (Auto) 7.2 % Eos % (Auto) 1.1 % Baso % (Auto) 0.8 % Neut # (Auto) 6.24 (1.4-6.5) K/uL Lymph # (Auto) 1.97 (1.2-3.4) K/uL Miner # (Auto) 0.65 (0.24-0.82) K/uL Eos # (Auto) 0.10 (0-0.50) K/uL Baso # (Auto) 0.07 (0-0.2) K/uL Immature Gran # (Auto) 0.02 (0.00-0.02) K/uL PT 12.5 H (9.0-12.0) Seconds INR 1.2 H (0.9-1.1) APTT 32.0 H (21.0-31.0) Seconds PTT Ratio 1.2 Sodium 132 L (136-145) mmol/L Potassium 3.9 (3.5-5.1) mmol/L Chloride 96 L (98-107) mmol/L Carbon Dioxide 23 (21-32) mmol/L Anion Gap 13 H (3-11) BUN 15 (6-23) mg/dl Creatinine 2.57 H (0.6-1.2) mg/dl Est Cr Clr Drug Dosing 23.1 ml/min Est GFR ( Amer) 27.0 ml/min Est GFR (Non-Af Amer) 23.3 ml/min BUN/Creatinine Ratio 5.8 L (10-20) Glucose 111 H (70-99(Fasting)) mg/dl Calcium 9.5 (8.5-10.1) mg/dl Total Bilirubin 2.3 H (0.2-1.0) mg/dl AST 62 H (13-39) U/L ALT 32 (7-52) U/L Alkaline Phosphatase 119 H (34-104) U/L Ammonia (18-72) umol/L Troponin I High Sens (0-14) pg/ml Total Protein 7.9 (6.0-8.3) gm/dl Albumin 4.5 (3.4-5.0) gm/dl Globulin 3.4 (2.5-4.0) gm/dl Albumin/Globulin Ratio 1.3 (0.9-2) Lipase 16 (11-82) U/L Ethyl Alcohol mg/dL (<10.0) mg/dl SARS-CoV-2, RNA, NAAT (NEGATIVE) 06/30/22 06/30/22 06/30/22 Range/Units 12:26 12:26 14:43 WBC (4.8-10.8) K/ul RBC (3.93-5.22) M/uL Hgb (12.0-16.0) g/dl Hct (34.1-44.9) % MCV (80.0-100.0) fL MCH (25.0-34.0) pg MCHC (32.0-36.0) g/dL RDW Std Deviation (36.4-46.3) fL RDW Coeff of Yasmine (11.5-14.5) % Plt Count (130-400) K/uL MPV (9.4-12.3) fL Immature Gran % (Auto) % Neut % (Auto) % Lymph % (Auto) % Miner % (Auto) % Eos % (Auto) % Baso % (Auto) % Neut # (Auto) (1.4-6.5) K/uL Lymph # (Auto) (1.2-3.4) K/uL Miner # (Auto) (0.24-0.82) K/uL Eos # (Auto) (0-0.50) K/uL Baso # (Auto) (0-0.2) K/uL Immature Gran # (Auto) (0.00-0.02) K/uL PT (9.0-12.0) Seconds INR (0.9-1.1) APTT (21.0-31.0) Seconds PTT Ratio Sodium (136-145) mmol/L Potassium (3.5-5.1) mmol/L Chloride (98-107) mmol/L Carbon Dioxide (21-32) mmol/L Anion Gap (3-11) BUN (6-23) mg/dl Creatinine (0.6-1.2) mg/dl Est Cr Clr Drug Dosing ml/min Est GFR ( Amer) ml/min Est GFR (Non-Af Amer) ml/min BUN/Creatinine Ratio (10-20) Glucose (70-99(Fasting)) mg/dl Calcium (8.5-10.1) mg/dl Total Bilirubin (0.2-1.0) mg/dl AST (13-39) U/L ALT (7-52) U/L Alkaline Phosphatase (34-104) U/L Ammonia 39.0 (18-72) umol/L Troponin I High Sens 5.1 D (0-14) pg/ml Total Protein (6.0-8.3) gm/dl Albumin (3.4-5.0) gm/dl Globulin (2.5-4.0) gm/dl Albumin/Globulin Ratio (0.9-2) Lipase (11-82) U/L Ethyl Alcohol mg/dL 252.9 H (<10.0) mg/dl SARS-CoV-2, RNA, NAAT (NEGATIVE) 06/30/22 Range/Units 15:30 WBC (4.8-10.8) K/ul RBC (3.93-5.22) M/uL Hgb (12.0-16.0) g/dl Hct (34.1-44.9) % MCV (80.0-100.0) fL MCH (25.0-34.0) pg MCHC (32.0-36.0) g/dL RDW Std Deviation (36.4-46.3) fL RDW Coeff of Yasmine (11.5-14.5) % Plt Count (130-400) K/uL MPV (9.4-12.3) fL Immature Gran % (Auto) % Neut % (Auto) % Lymph % (Auto) % Miner % (Auto) % Eos % (Auto) % Baso % (Auto) % Neut # (Auto) (1.4-6.5) K/uL Lymph # (Auto) (1.2-3.4) K/uL Miner # (Auto) (0.24-0.82) K/uL Eos # (Auto) (0-0.50) K/uL Baso # (Auto) (0-0.2) K/uL Immature Gran # (Auto) (0.00-0.02) K/uL PT (9.0-12.0) Seconds INR (0.9-1.1) APTT (21.0-31.0) Seconds PTT Ratio Sodium (136-145) mmol/L Potassium (3.5-5.1) mmol/L Chloride (98-107) mmol/L Carbon Dioxide (21-32) mmol/L Anion Gap (3-11) BUN (6-23) mg/dl Creatinine (0.6-1.2) mg/dl Est Cr Clr Drug Dosing ml/min Est GFR ( Amer) ml/min Est GFR (Non-Af Amer) ml/min BUN/Creatinine Ratio (10-20) Glucose (70-99(Fasting)) mg/dl Calcium (8.5-10.1) mg/dl Total Bilirubin (0.2-1.0) mg/dl AST (13-39) U/L ALT (7-52) U/L Alkaline Phosphatase (34-104) U/L Ammonia (18-72) umol/L Troponin I High Sens (0-14) pg/ml Total Protein (6.0-8.3) gm/dl Albumin (3.4-5.0) gm/dl Globulin (2.5-4.0) gm/dl Albumin/Globulin Ratio (0.9-2) Lipase (11-82) U/L Ethyl Alcohol mg/dL (<10.0) mg/dl SARS-CoV-2, RNA, NAAT NEGATIVE (NEGATIVE) Administered Medications Sodium Chloride (Nss 1000ml) 2,000 mls @ 999 mls/hr IV .Q2H1M ONE Stop: 06/30/22 17:13 Last Admin: 06/30/22 15:39 Dose: 999 mls/hr Documented By: NMS Discontinued Medications Ketorolac Tromethamine (Ketorolac Tromethamine 15 Mg/Ml Vial) 15 mg IV NOW ONE Stop: 06/30/22 15:14 Last Admin: 06/30/22 15:39 Dose: 15 mg Documented By: VIVIAN Morphine Sulfate (Morphine Sulfate 4 Mg/Ml 1 Ml Carp\Vial) 4 mg IV NOW STA Stop: 06/30/22 14:14 Last Admin: 06/30/22 14:21 Dose: 4 mg Documented By: [facility] Imaging Data Radiologist's Impression: Head CT 06/30/22 12:[address] DOSE: 537.48 mGy.cm HISTORY: Fall: Head Injury TECHNIQUE: Multiaxial CT images of the head were performed without the use of intravenous contrast. Automated exposure control was utilized for this study. A dose lowering technique was utilized adhering to the principles of ALARA. Comparison: Head CT 07/22/2021. Findings: The paranasal sinuses and mastoid air cells are clear. The calvarium and skull base are intact. The ventricles and sulci are within normal limits. There is no mass, hematoma, midline shift, or acute infarct. Impression: No acute intracranial abnormality. ACT 112: Negative or not required by law. Electronically signed by: Weston Cisneros M.D. 06/30/2022 1:00 PM Ribs w/Chest X-Ray 06/30/22 12:18 XR ribs RT min 2V w [id number] HISTORY: 37 years-old Female Fall: right rib injury acute right-sided chest pain status post fall COMPARISON: Chest radiograph 04/22/2022 TECHNIQUE: AP view of the chest with 4 views of the right ribs FINDINGS: Cardiomediastinal and hilar silhouettes are within normal limits. Right IJ Xxjhxh-e-Tjjc catheter distal tip is noted with expected location of the upper SVC. No pneumothorax, pleural effusion, airspace consolidation or overt pulmonary edema. Healed chronic fracture of the posterolateral left sixth rib. No acute rib fracture identified. IMPRESSION: 1. No acute process of the chest. 2. No acute rib fracture or pneumothorax. ACT 112: Negative or not required by law. The above report was generated using voice recognition software. It may contain grammatical, syntax or spelling errors. Electronically signed by: Bud Madera M.D. 06/30/2022 2:01 PM Abdomen/Pelvis CT 06/30/22 13:14 CT chest diagnostic wo con, CT thoracic spine wo con, CT lumbar spine wo con, CT abd pelvis wo con CLINICAL HISTORY: 37 years-old Female with trauma. Acute chest and abdominal trauma status post fall TECHNIQUE: Multiaxial CT images of the chest, abdomen and pelvis, CT and thoracic spine were performed without contrast. A dose lowering technique was utilized adhering to the principles of ALARA. COMPARISON: Chest CT 07/13/21, CT abdomen 04/15/22. FINDINGS: CT CHEST: The lungs are clear. The mediastinal vascular structures are within normal limits. Right IJ Efjuev-d-Wjnc catheter distal tip terminates within the mid SVC. No mediastinal or hilar lymphadenopathy. No pleural effusion or pneumothorax. Mild sigmoidal scoliosis of the thoracic spine. No acute fracture identified. CT ABDOMEN/PELVIS: No pneumatosis or pneumoperitoneum. Spleen is enlarged measuring 13.4 cm in length. Unremarkable pancreas with a few punctate calcifications noted within the uncinate process. The adrenal glands are within normal limits. Punctate calcification within the jessica hepatis may represent an adherent gallstone. Mild marginal nodularity of the liver suggestive of cirrhosis. No hepatic mass identified. Unremarkable kidneys, urinary bladder, uterus and adnexa. Aorta and IVC are unremarkable. Abdominal varicosities. There is no lymphadenopathy identified. No bowel obstruction or bowel wall thickening. Moderate fecal retention. Noninflamed appendix. No ascites or mesenteric inflammation. Tiny fat filled umbilical hernia. No acute fracture identified. CT THORACIC SPINE: Upper thoracic levoscoliosis. Mild multilevel spondylitic spurring and facet arthrosis. The intervertebral disc spaces are generally well maintained. Equivocal acute nondisplaced fracture involves the posterior medial aspect of the right ninth and 10th ribs. (Please see image 186 of series 10 and image 21 of the sagittal series. No acute vertebral body fracture identified. CT LUMBAR SPINE: Mild lumbar levoscoliosis. Mild to moderate multilevel facet arthrosis. No acute fracture, subluxation or endplate erosion. The imaged sacrum and iliac bones appear intact. Healed chronic fracture of the right inferior L5 articular facet. IMPRESSION: 1. Suggestion of subtle acute nondisplaced fractures involving the posterior medial aspects of the right ninth and 10th ribs. Correlate with point tenderness. 2. No pneumothorax. 3. No acute posttraumatic intrathoracic, intra-abdominal or intrapelvic abnormality 4. Cirrhosis with splenomegaly and abdominal varicosities compatible with portal venous hypertension. ACT 112: Negative or not required by law. Electronically signed by: Bud Madera M.D. 06/30/2022 3:[address] 06/30/22 13:14 CT chest diagnostic wo con, CT thoracic spine wo con, CT lumbar spine wo con, CT abd pelvis wo con CLINICAL HISTORY: 37 years-old Female with trauma. Acute chest and abdominal trauma status post fall TECHNIQUE: Multiaxial CT images of the chest, abdomen and pelvis, CT and th oracic spine were performed without contrast. A dose lowering technique was utilized adhering to the principles of ALARA. COMPARISON: Chest CT 07/13/21, CT abdomen 04/15/22. FINDINGS: CT CHEST: The lungs are clear. The mediastinal vascular structures are within normal limits. Right IJ Lxrkpz-r-Bihi catheter distal tip terminates within the mid SVC. No mediastinal or hilar lymphadenopathy. No pleural effusion or pneumoth orax. Mild sigmoidal scoliosis of the thoracic spine. No acute fracture identified. CT ABDOMEN/PELVIS: No pneumatosis or pneumoperitoneum. Spleen is enlarged measuring 13.4 cm in length. Unremarkable pancreas with a few punctate calcifications noted within the uncinate process. The adrenal glands are within normal limits. Punctate calcification within the jessica hepatis may represent an adherent gallstone. Mild marginal nodularity of the liver suggestive of cirrhosis. No hepatic mass identified. Unremarkable kidneys, urinary bladder, uterus and adnexa. Aorta and IVC are unremarkable. Abdominal varicosities. There is no lymphadenopathy identified. No bowel obstruction or bowel wall thickening. Moderate fecal retention. Noninflam ed appendix. No ascites or mesenteric inflammation. Tiny fat filled umbilical hernia. No acute fracture identified. CT THORACIC SPINE: Upper thoracic levoscoliosis. Mild multilevel spondylitic spurring and facet arthrosis. The intervertebral disc spaces are generally well maintained. Equivocal acute nondisplaced fracture involves the posterior medial aspect of the right ninth and 10th ribs. (Please see image 186 of series 10 and image 21 of the sagittal series. No acute vertebral body fracture identified. CT LUMBAR SPINE: Mild lumbar levoscoliosis. Mild to moderate multilevel facet arthrosis. No acute fracture, subluxation or endplate erosion. The imaged sacrum and iliac bones appear intact. Healed chronic fracture of the right inferior L5 articular facet. IMPRESSION: 1. Suggestion of subtle acute nondisplaced fractures involving the posterior medial aspects of the right ninth and 10th ribs. Correlate with point tenderness. 2. No pneumothorax. 3. No acute posttraumatic intrathoracic, intra-abdominal or intrapelvic abnormality 4. Cirrhosis with splenomegaly and abdominal varicosities compatible with portal venous hypertension. ACT 112: Negative or not required by law. Electronically signed by: Bud Madera M.D. 06/30/2022 3:[address] 06/30/22 13:22 CT chest diagnostic wo con, CT thoracic spine wo con, CT lumbar spine wo con, CT abd pelvis wo con CLINICAL HISTORY: 37 years-old Female with trauma. Acute chest and abdominal trauma status post fall TECHNIQUE: Multiaxial CT images of the chest, abdomen and pelvis, CT and thoracic spine were performed without contrast. A dose lowering technique was utilized adhering to the principles of ALARA. COMPARISON: Chest CT 07/13/21, CT abdomen 04/15/22. FINDINGS: CT CHEST: The lungs are clear. The mediastinal vascular structures are within normal limits. Right IJ Nclsjv-n-Ttlw catheter distal tip terminates within the mid SVC. No mediastinal or hilar lymphadenopathy. No pleural effusion or pneumothorax. Mild sigmoidal scoliosis of the thoracic spine. No acute fracture identified. CT ABDOMEN/PELVIS: No pneumatosis or pneumoperitoneum. Spleen is enlarged measuring 13.4 cm in length. Unremarkable pancreas with a few punctate calcifications noted within the uncinate process. The adrenal glands are within normal limits. Punctate calcification within the jessica hepatis may represent an adherent gallstone. Mild marginal nodularity of the liver suggestive of cirrhosis. No hepatic mass identified. Unremarkable kidneys, urinary bladder, uterus and adnexa. Aorta and IVC are unremarkable. Abdominal varicosities. There is no lymphadenopathy identified. No bowel obstruction or bowel wall thickening. Moderate fecal retention. Noninflamed appendix. No ascites or mesenteric inflammation. Tiny fat filled umbilical hernia. No acute fracture identified. CT THORACIC SPINE: Upper thoracic levoscoliosis. Mild multilevel spondylitic spurring and facet arthrosis. The intervertebral disc spaces are generally well maintained. Equivocal acute nondisplaced fracture involves the posterior medial aspect of the right ninth and 10th ribs. (Please see image 186 of series 10 and image 21 of the sagittal series. No acute vertebral body fracture identified. CT LUMBAR SPINE: Mild lumbar levoscoliosis. Mild to moderate multilevel facet arthrosis. No acute fracture, subluxation or endplate erosion. The imaged sacrum and iliac bones appear intact. Healed chronic fracture of the right inferior L5 articular facet. IMPRESSION: 1. Suggestion of subtle acute nondisplaced fractures involving the posterior medial aspects of the right ninth and 10th ribs. Correlate with point tenderness. 2. No pneumothorax. 3. No acute posttraumatic intrathoracic, intra-abdominal or intrapelvic abnorm ality 4. Cirrhosis with splenomegaly and abdominal varicosities compatible with portal venous hypertension. ACT 112: Negative or not required by law. Electronically signed by: Bud Madera M.D. 06/30/2022 3:[address] 06/30/22 13:22 CT chest diagnostic wo con, CT thoracic spine wo con, CT lumbar spine wo con, CT abd pelvis wo con CLINICAL HISTORY: 37 years-old Female with trauma. Acute chest and abdominal trauma status post fall TECHNIQUE: Multiaxial CT images of the chest, abdomen and pelvis, CT and thoracic spine were performed without contrast. A dose lowering technique was utilized adhering to the principles of ALARA. COMPARISON: Chest CT 07/13/21, CT abdomen 04/15/22. FINDINGS: CT CHEST: The lungs are clear. The mediastinal vascular structures are within normal limits. Right IJ Ohmwmi-e-Ncoc catheter distal tip terminates within the mid SVC. No mediastinal or hilar lymphadenopathy. No pleural effusion or pneumothorax. Mild sigmoidal scoliosis of the thoracic spine. No acute fracture identified. CT ABDOMEN/PELVIS: No pneumatosis or pneumoperitoneum. Spleen is enlarged measuring 13.4 cm in length. Unremarkable pancreas with a few punctate calcifications noted within the uncinate process. The adrenal glands are within normal limits. Punctate calcification within the jessica hepatis may represent an adherent gallstone. Mild marginal nodularity of the liver suggestive of cirrhosis. No hepatic mass identi fied. Unremarkable kidneys, urinary bladder, uterus and adnexa. Aorta and IVC are unremarkable. Abdominal varicosities. There is no lymphadenopathy identified. No bowel obstruction or bowel wall thickening. Moderate fecal retention. Noninflamed appendix. No ascites or mesenteric inflammation. Tiny fat filled umbilical hernia. No acute fracture identified. CT THORACIC SPINE: Upper thoracic levoscoliosis. Mild multilevel spondylitic spurring and facet arthrosis. The intervertebral disc spaces are generally well maintained. Equivocal acute nondisplaced fracture involves the posterior medial aspect of the right ninth and 10th ribs. (Please see image 186 of series 10 and image 21 of the sagittal series. No acute vertebral body fracture identified. CT LUMBAR SPINE: Mild lumbar levoscoliosis. Mild to moderate multilevel facet arthrosis. No acute fracture, subluxation or endplate erosion. The imaged sacrum and iliac bones appear intact. Healed chronic fracture of the right inferior L5 articular facet. IMPRESSION: 1. Suggestion of subtle acute nondisplaced fractures involving the posterior medial aspects of the right ninth and 10th ribs. Correlate with point tenderness. 2. No pneumothorax. 3. No acute posttraumatic intrathoracic, intra-abdominal or intrapelvic abnormality 4. Cirrhosis with splenomegaly and abdominal varicosities compatible with portal venous hypertension. ACT 112: Negative or not required by law. Electronically signed by: Bud Madera M.D. 06/30/2022 3:[address] 06/30/22 13:[address] DOSE: 959.53 mGy.cm HISTORY: fall TECHNIQUE: Multiaxial CT images of the cervical spine were performed and reformatted in the sagittal and coronal plane without the use of contrast. A dose lowering technique was utilized adhering to the principles of ALARA. COMPARISON: Cervical spine CT 07/22/2021. FINDINGS: No fractures. No subluxation. Prevertebral soft tissues and the C1-C2 interval are intact. No pneumothorax. There is a partially visualized right jugular central venous catheter. IMPRESSION: No fractures within the cervical spine. ACT 112: Negative or not required by law. Electronically signed by: Weston Cisneros M.D. 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 omeprazole 20 mg Capsule,Delayed Release(Dr/Ec) 20 mg PO QAM montelukast 10 mg Tablet 10 mg PO HS dextroamphetamine-amphetamine [Adderall] 5 mg Tablet 5 mg PO BID loratadine 10 mg Tablet 10 mg PO QAM budesonide-formoterol [Symbicort] 160-4.5 mcg/actuation Hfa Aerosol Inhaler 2 puff INHALATION BID Combivent Respimat 20-100 mcg/actuation Mist 1 puff INHALATION BID multivitamin Tablet 1 tab PO QAM azelastine 137 mcg (0.1 %) Aerosol,[place] 1 spray INTRANASAL BID fluticasone propionate 50 mcg/actuation [place],Suspension 2 spray INTRANASAL BID ascorbic acid (vitamin C) [Vitamin C] 500 mg Tablet 500 mg PO QAM cholecalciferol (vitamin D3) [Vitamin D3] 50 mcg (2,000 unit) Capsule 2,000 mcg PO QAM spironolactone 100 mg tablet 200 mg PO QAM hydroxyzine HCl 25 mg tablet 25 mg PO TID PRN (Reason: Anxiety) Spiriva Respimat 2.5 mcg/actuation mist 2 puff INHALATION BID magnesium oxide 400 mg (241.3 mg magnesium) tablet 400 mg PO BID Rx Instructions: take 2 hours before or after Phospha 250 neutral. potassium chloride 20 mEq tablet extended release 20 meq PO QAM Phospha 250 Neutral 250 mg tablet 2 tab PO QID oxycodone 5 mg tablet 5 mg PO Q6 PRN (Reason: pain) Qty: 7 0RF ondansetron HCl 4 mg Tablet 4 mg PO Q8H PRN (Reason: Nausea) furosemide [Lasix] 40 mg Tablet 80 mg PO QAM thiamine HCl (vitamin B1) 100 mg Tablet 100 mg PO QAM Qty: 30 0RF tramadol 50 mg Tablet 50 mg PO Q12H PRN (Reason: Pain) Qty: 10 0RF Rx Instructions: please hold for drowsiness and lethargy lactulose 10 gram/15 mL Solution 30 ml PO QAM nicotine 14 mg/24 hr Patch 24 Hour 1 patch TRANSDERMAL DAILY oxycodone-acetaminophen [Percocet] 5-325 mg tablet 1 tab PO Q6H PRN (Reason: pain) Qty: 8 0RF Referrals Referrals: Zaina Bunch MD [Primary Care Provider] -
--- NOTE | 2022-06-30 14:02 | XRay Report ---
XR ribs RT min 2V w CXR1V HISTORY: 37 years-old Female Fall: right rib injury acute right-sided chest pain status post fall COMPARISON: Chest radiograph 04/22/2022 TECHNIQUE: AP view of the chest with 4 views of the right ribs FINDINGS: Cardiomediastinal and hilar silhouettes are within normal limits. Right IJ Lsvhpm-u-Xmkv catheter dis octaviano tip is noted with expected location of the upper SVC. No pneumothorax, pleural effusion, airspace consolidation or overt pulmonary edema. Healed chronic fracture of the posterolateral left sixth rib . No acute rib fracture identified. IMPRESSION: 1. No acute process of the chest. 2. No acute rib fracture or pneumothorax. ACT 112: Negative or not required by law. The above report was generated using voice recognition software. It may contain grammatical, syntax o r spelling errors. Electronically signed by: Bud Madera M.D. 06/30/2022 2:01 PM
[2022-06-30] MEDS ORDERED: MoRPHine SULFATE 4 MG/ML 1 ML CARP\\VIAL IV STA (14:13)
--- NOTE | 2022-06-30 14:35 | CT Scan Report ---
CERVICAL SPINE CT CT DOSE: 959.53 mGy.cm HISTORY: fall TECHNIQUE: Multiaxial CT images of the cervical spine were performed and reformatted in the sagittal and coronal plane without the use of contrast. A dose lowering technique was utilized adhering to th e principles of ALARA. COMPARISON: Cervical spine CT 07/22/2021. FINDINGS: No fractures. No subluxation. Prevertebral soft tissues and the C1-C2 interval are intact. No pneumothorax. There is a partially visualized right jugular central venous catheter. IMPRESSION: No fractures within the cervical spine. ACT 112: Negative or not required by law. Electronically signed by: Weston Cisneros M.D. 06/30/2022 2:33 PM
--- NOTE | 2022-06-30 15:06 | CT Scan Report ---
CT chest diagnostic wo con, CT thoracic spine wo con, CT lumbar spine wo con, CT abd pelvis wo con CLINICAL HISTORY: 37 years-old Female with trauma. Acute chest and abdominal trauma status post fall TECHNIQUE: Multiaxial CT images of the chest, abdomen and pelvis, CT and thoracic spine were performe d without contrast. A dose lowering technique was utilized adhering to the principles of ALARA. COMPARISON: Chest CT 07/13/21, CT abdomen 04/15/22. FINDINGS: CT CHEST: The lungs are clear. The mediastinal vascular structures are within normal limits. Right IJ Infuse-a- Port catheter distal tip terminates within the mid SVC. No mediastinal or hilar lymphadenopathy. No p leural effusion or pneumothorax. Mild sigmoidal scoliosis of the thoracic spine. No acute fracture id entified. CT ABDOMEN/PELVIS: No pneumatosis or pneumoperitoneum. Spleen is enlarged measuring 13.4 cm in length. Unremarkable panc reas with a few punctate calcifications noted within the uncinate process. The adrenal glands are wit hin normal limits. Punctate calcification within the jessica hepatis may represent an adherent gallston e. Mild marginal nodularity of the liver suggestive of cirrhosis. No hepatic mass identified. Unremarkable kidneys, urinary bladder, uterus and adnexa. Aorta and IVC are unremarkable. Abdominal v aricosities. There is no lymphadenopathy identified. No bowel obstruction or bowel wall thickening. M oderate fecal retention. Noninflamed appendix. No ascites or mesenteric inflammation. Tiny fat filled umbilical hernia. No acute fracture identified. CT THORACIC SPINE: Upper thoracic levoscoliosis. Mild multilevel spondylitic spurring and facet arthrosis. The intervert ebral disc spaces are generally well maintained. Equivocal acute nondisplaced fracture involves the p osterior medial aspect of the right ninth and 10th ribs. (Please see image 186 of series 10 and image 21 of the sagittal series. No acute vertebral body fracture identified. CT LUMBAR SPINE: Mild lumbar levoscoliosis. Mild to moderate multilevel facet arthrosis. No acute fracture, subluxatio n or endplate erosion. The imaged sacrum and iliac bones appear intact. Healed chronic fracture of th e right inferior L5 articular facet. IMPRESSION: 1. Suggestion of subtle acute nondisplaced fractures involving the posterior medial aspects of the ri ght ninth and 10th ribs. Correlate with point tenderness. 2. No pneumothorax. 3. No acute posttraumatic intrathoracic, intra-abdominal or intrapelvic abnormality 4. Cirrhosis with splenomegaly and abdominal varicosities compatible with portal venous hypertension. ACT 112: Negative or not required by law. Electronically signed by: Bud Madera M.D. 06/30/2022 3:05 PM
[2022-06-30] MEDS ORDERED: SODIUM CHLORIDE 0.9% 1000ML 2,000 ML IV ONE (15:13)
[2022-06-30] MEDS ORDERED: KETOROLAC TROMETHAMINE 15 MG/ML VIAL IV ONE (15:13)
--- NOTE | 2022-06-30 15:23 | History & Physical Report ---
Date of Service June 30, 2022 Assessment & Plan (1) Fall: (2) Closed rib fracture: (3) VAN (acute kidney injury): (4) Alcohol intoxication: (5) Alcohol use disorder: (6) Generalized anxiety disorder: (7) Cirrhosis: (8) Depression: (9) ADD (attention deficit disorder): (10) Asthma: Plan This is a 37yo F with a PMH of alcoholic cirrhosis with ascites, continued severe alcohol dependence, ADD, depression, anxiety and other medical problems listed below who presents after fall at home this morning. Fall Rib fractures Head CT, cervical spine, thoracic, lumbar, abd/pelvis, chest CTs performed - evidence of acute nondisplaced fractures involving the posterior medial aspects of the right ninth and 10th ribs. Otherwise no traumatic injuries noted Lidocaine patch, ice, Tylenol for rib fractures Acute renal failure Creatinine elevated at 2.57 (baseline ~0.8) Poor oral intake given prolonged N/V and still taking Lasix and spironolactone for cirrhosis Holding diuretics for now, IV fluids Repeat BMP in AM Avoid nephrotoxic agents Alcoholic cirrhosis Intractable nausea/vomiting Patient with history of cirrhosis, following with [facility] Left 2-month inpatient alcohol treatment facility 4 days ago and resumed drinking yesterday Worsened nausea and vomiting with poor appetite while at treatment center, reports some hematemesis but none for the past week Consult GI for recommendations, n.p.o. for possible EGD Continued severe alcoholic dependence Endorsing last drinks this morning before 0900. Ethyl alcohol level 253. Placed on alcohol withdrawal protoco l ADD Continue Adderall History of tobacco use Continue nicotine patch Asthma Stable; continue home inhalers DVT Ppx: SCDs Code status: FULL PCP: Ritu Dispo: Admitted to PCU Patient seen in collaboration with Dr. Magdaleno. Please see addendum. History of Present Illness Chief Complaint: fall Primary Care Provider: Zaina Bunch MD This is a 37yo F with a PMH of alcoholic cirrhosis with ascites, continued severe alcohol dependence, ADD, depression, anxiety and other medical problems listed below who presents after fall at home this morning. Patient recently completed 2 months in an inpatient rehab facility and returned home 4 days ago. Began drinking again yesterday and is endorsing two to 16 oz 9% ABV beers this morning before attempting to shower. Patient fell onto right side and hit left frontal and back aspects of head trying to stand back up. eports that she was unconscious for unclear duration but was unwitnessed. Boyfriend came home from work and took to PCP, who sent to ED for further evaluation. Has had worsened nausea and recurrent emesis since admission to alcohol rehab that has persisted. Limited PO intake despite using zofran. Has been taking lasix and spironolactone. Endorsing 2 episodes of vomiting this morning [employer] but no hematemesis. No fever, chills, lightheadedness, CP, SOB, abdominal pain, dysuria or constipation. Follows with [facility] for cirrhosis. During last admission in March 2022, patient was transferred to tertiary care center for liver transplant workup. Allergies Allergy/AdvReac Type Severity Reaction Status Date / Time banana Allergy Intermediate RASH, Verified 04/22/22 07:49 THROAT SLIGHTLY SWOLLEN Penicillins Allergy Unknown HAPPENED Verified 04/22/22 07:49 A CHILD Home Medications Medication Instructions Recorded Confirmed Type albuterol sulfate 90 mcg/actuation 2 inh inhalation BID PRN Shortness 06/24/20 06/30/22 History aerosol inhaler (ProAir HFA) Of Breath budesonide-formoterol HFA 160 2 puff inhalation BID 06/20/21 06/30/22 History mcg-4.5 mcg/actuation aerosol inhaler (Symbicort) dextroamphetamine-amphetamine 5 mg 5 mg PO BID 06/20/21 06/30/22 History tablet (Adderall) ipratropium 20 mcg-albuterol 100 1 puff inhalation BID 06/20/21 06/30/22 History mcg/actuation mist for inhalation (Combivent Respimat) loratadine 10 mg tablet 10 mg PO QAM 06/20/21 06/30/22 History montelukast 10 mg tablet 10 mg PO HS 06/20/21 06/30/22 History omeprazole 20 mg capsule,delayed 20 mg PO QAM 06/20/21 06/30/22 History release azelastine 137 mcg (0.1 %) nasal 1 spray intranasal BID 10/03/21 06/30/22 History spray aerosol fluticasone propionate 50 2 spray intranasal BID 10/03/21 06/30/22 History mcg/actuation nasal spray,suspension multivitamin 1 tab PO QAM 10/03/21 06/30/22 History ondansetron HCl 4 mg tablet 4 mg PO Q8H PRN Nausea 10/31/21 06/30/22 History furosemide 40 mg tablet (Lasix) 80 mg PO QAM 11/20/21 06/30/22 History ascorbic acid (vitamin C) 500 mg 500 mg PO QAM 01/31/22 06/30/22 History tablet (Vitamin C) cholecalciferol (vitamin D3) 50 2,000 mcg PO QAM 01/31/22 06/30/22 History mcg (2,000 unit) capsule (Vitamin D3) hydroxyzine HCl 25 mg tablet 25 mg PO TID PRN Anxiety 01/31/22 06/30/22 History spironolactone 100 mg tablet 200 mg PO QAM 01/31/22 06/30/22 History tiotropium bromide 2.5 2 puff inhalation BID 01/31/22 06/30/22 History mcg/actuation mist for inhalation (Spiriva Respimat) thiamine HCl (vitamin B1) 100 mg 100 mg PO QAM #30 tabs 03/23/22 06/30/22 Rx tablet magnesium oxide 400 mg (241.3 mg 400 mg PO BID 03/25/22 06/30/22 History magnesium) tablet potassium chloride 20 mEq 20 meq PO QAM 03/25/22 06/30/22 History tablet,extended release sodium di- and 2 tab PO QID 03/25/22 06/30/22 History monophosphate-potassium phos monobasic 250 mg tablet (Phospha 250 Neutral) lactulose 10 gram/15 mL oral 30 ml PO QAM 04/17/22 06/30/22 History solution nicotine 14 mg/24 hr daily 1 patch transdermal DAILY 04/17/22 06/30/22 History transdermal patch Past Med/Surg History Medical History Acute hyponatremia Acute on chronic alcoholic liver disease ADD (attention deficit disorder) Alcohol abuse Alcohol abuse Alcohol intoxication Alcoholic cirrhosis with abn coags Alcoholic hepatitis Anemia pre-op H&H 04/15/22: 05/15 Anxiety Asthma well controlled with inhalers Decompensated hepatic cirrhosis Depression Fatty liver GERD (gastroesophageal reflux disease) History of abdominal paracentesis History of pancreatitis alcoholic 05/2021 per records Hyperbilirubinemia Hypokalemia Hypomagnesemia Jaundice Pneumonia February [address] [facility]. denies sob currently Portal hypertension Thrombocytopenia Surgical History H/O wisdom tooth extraction History of esophagogastroduodenoscopy (EGD) Family History Grandmother Breast cancer Grandfather Heart disease Other No family history of adverse response to anesthesia Social History Smoking Status: Never smoker Tobacco Type: Cigarettes Cigarettes Per Day: 1-2; Second Hand Exposure: Yes; Hx Alcohol Use: Yes Alcohol type: beer Hx Substance Use: No Preferred Language: Latvian 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 Ability: Effective Cst Required: No Beliefs That Will Affect Care: None marital status: Single Current Living Situation: Family Current Living Situation Comment: Apartment current occupational status: employed How many Children do You have: 0 Other Information That Helps Us Care for You: No Feels Safe at Home: Yes Safety Concerns: Feels Safe At This Time Assistive Devices: None Review of Systems Review of Systems: At least ten systems reviewed and negative except as noted in the HPI. Physical Exam Physical Exam: Please see Dr. Magdaleno's addendum for physical exam. Results & Data Results & Data ([facility]) Vital Signs (Past 12 Hours) Vital Signs Temp Pulse Pulse Resp BP BP Pulse Ox 06/30/22 14:23 90 16 119/73 97 06/30/22 12:11 36.3 C L 102 H 20 109/73 97 O2 Del Method 06/30/22 14:23 Room Air 06/30/22 12:11 Room Air Laboratory Results Short CBC 06/30/22 Range/Units 12:26 WBC 9.05 (4.8-10.8) K/ul Hgb 11.6 L (12.0-16.0) g/dl Hct 32.5 L (34.1-44.9) % Plt Count 187 (130-400) K/uL BMP 06/30/22 12:26 Sodium 132 L Potassium 3.9 Chloride 96 L Carbon Dioxide 23 BUN 15 Creatinine 2.57 H Glucose 111 H Calcium 9.5 Liver Function 06/30/22 Range/Units 12:26 Total Bilirubin 2.3 H (0.2-1.0) mg/dl AST 62 H (13-39) U/L ALT 32 (7-52) U/L Alkaline Phosphatase 119 H (34-104) U/L Albumin 4.5 (3.4-5.0) gm/dl Diagnostic Findings Head CT 06/30/22 12:[address] DOSE: 537.48 mGy.cm HISTORY: Fall: Head Injury TECHNIQUE: Multiaxial CT images of the head were performed without the use of intravenous contrast. Automated exposure control was utilized for this study. A dose lowering technique was utilized adhering to the principles of ALARA. Comparison: Head CT 07/22/2021. Findings: The paranasal sinuses and mastoid air cells are clear. The calvarium and skull base are intact. The ventricles and sulci are within normal limits. There is no mass, hematoma, midline shift, or acute infarct. Impression: No acute intracranial abnormality. ACT 112: Negative or not required by law. Electronically signed by: Weston Cisneros M.D. 06/30/2022 1:00 PM Ribs w/Chest X-Ray 06/30/22 12:18 XR ribs RT min 2V w [id number] HISTORY: 37 years-old Female Fall: right rib injury acute right-sided chest pain status post fall COMPARISON: Chest radiograph 04/22/2022 TECHNIQUE: AP view of the chest with 4 views of the right ribs FINDINGS: Cardiomediastinal and hilar silhouettes are within normal limits. Right IJ Sfzien-e-Fsfc catheter distal tip is noted with expected location of the upper SVC. No pneumothorax, pleural effusion, airspace consolidation or overt pulmonary edema. Healed chronic fracture of the posterolateral left sixth rib. No acute rib fracture identified. IMPRESSION: 1. No acute process of the chest. 2. No acute rib fracture or pneumothorax. ACT 112: Negative or not required by law. The above report was generated using voice recognition software. It may contain grammatical, syntax or spelling errors. Electronically signed by: Bud Madera M.D. 06/30/2022 2:01 PM Abdomen/Pelvis CT 06/30/22 13:14 CT chest diagnostic wo con, CT thoracic spine wo con, CT lumbar spine wo con, CT abd pelvis wo con CLINICAL HISTORY: 37 years-old Female with trauma. Acute chest and abdominal trauma status post fall TECHNIQUE: Multiaxial CT images of the chest, abdomen and pelvis, CT and thoracic spine were performed without contrast. A dose lowering technique was utilized adhering to the principles of ALARA. COMPARISON: Chest CT 07/13/21, CT abdomen 04/15/22. FINDINGS: CT CHEST: The lungs are clear. The mediastinal vascular structures are within normal limits. Right IJ Jiwaeu-b-Xgzh catheter distal tip terminates within the mid SVC. No mediastinal or hilar lymphadenopathy. No pleural effusion or pneumothorax. Mild sigmoidal scoliosis of the thoracic spine. No acute fracture identified. CT ABDOMEN/PELVIS: No pneumatosis or pneumoperitoneum. Spleen is enlarged measuring 13.4 cm in length. Unremarkable pancreas with a few punctate calcifications noted within the uncinate process. The adrenal glands are within normal limits. Punctate calcification within the jessica hepatis may represent an adherent gallstone. Mild marginal nodularity of the liver suggestive of cirrhosis. No hepatic mass identified. Unremarkable kidneys, urinary bladder, uterus and adnexa. Aorta and IVC are unremarkable. Abdominal varicosities. There is no lymphadenopathy identified. No bowel obstruction or bowel wall thickening. Moderate fecal retention. Noninflamed appendix. No ascites or mesenteric inflammation. Tiny fat filled umbilical hernia. No acute fracture identified. CT THORACIC SPINE: Upper thoracic levoscoliosis. Mild multilevel spondylitic spurring and facet arthrosis. The intervertebral disc spaces are generally well maintained. Equivocal acute nondisplaced fracture involves the posterior medial aspect of the right ninth and 10th ribs. (Please see image 186 of series 10 and image 21 of the sagittal series. No acute vertebral body fracture identified. CT LUMBAR SPINE: Mild lumbar levoscoliosis. Mild to moderate multilevel facet arthrosis. No acute fracture, subluxation or endplate erosion. The imaged sacrum and iliac bones appear intact. Healed chronic fracture of the right inferior L5 articular facet. IMPRESSION: 1. Suggestion of subtle acute nondisplaced fractures involving the posterior medial aspects of the right ninth and 10th ribs. Correlate with point tenderness. 2. No pneumothorax. 3. No acute posttraumatic intrathoracic, intra-abdominal or intrapelvic abnormality 4. Cirrhosis with splenomegaly and abdominal varicosities compatible with portal venous hypertension. ACT 112: Negative or not required by law. Electronically signed by: Bud Madera M.D. 06/30/2022 3:[address] 06/30/22 13:14 CT chest diagnostic wo con, CT thoracic spine wo con, CT lumbar spine wo con, CT abd pelvis wo con CLINICAL HISTORY: 37 years-old Female with trauma. Acute chest and abdominal trauma status post fall TECHNIQUE: Multiaxial CT images of the chest, abdomen and pelvis, CT and thoracic spine were performed without contrast. A dose lowering technique was utilized adhering to the principles of ALARA. COMPARISON: Chest CT 07/13/21, CT abdomen 04/15/22. FINDINGS: CT CHEST: The lungs are clear. The mediastinal vascular structures are within normal limits. Right IJ Gnbjqd-g-Nnps catheter distal tip terminates within the mid SVC. No mediastinal or hilar lymphadenopathy. No pleural effusion or pneumothorax. Mild sigmoidal scoliosis of the thoracic spine. No acute fracture identified. CT ABDOMEN/PELVIS: No pneumatosis or pneumoperitoneum. Spleen is enlarged measuring 13.4 cm in le ngth. Unremarkable pancreas with a few punctate calcifications noted within the uncinate process. The adrenal glands are within normal limits. Punctate calcification within the jessica hepatis may represent an adherent gallstone. Mild marginal nodularity of the liver suggestive of cirrhosis. No hepatic mass identified. Unremarkable kidneys, urinary bladder, uterus and adnexa. Aorta and IVC are unr emarkable. Abdominal varicosities. There is no lymphadenopathy identified. No bowel obstruction or bowel wall thickening. Moderate fecal retention. Noninflamed appendix. No ascites or mesenteric inflammation. Tiny fat filled umbilical hernia. No acute fracture identified. CT THORACIC SPINE: Upper thoracic levoscoliosis. Mild multilevel spondylitic spurring and facet arthrosis. The intervertebral disc spaces are generally well maintained. Equivocal acute nondisplaced fracture involves the posterior medial aspect of the right ninth and 10th ribs. (Please see image 186 of series 10 and image 21 of the sagittal series. No acute vertebral body fracture identified. CT LUMBAR SPINE: Mild lumbar levoscoliosis. Mild to moderate multilevel facet arthrosis. No acute fracture, subluxation or endplate erosion. The imaged sacrum and iliac bones appear intact. Healed chronic fracture of the right inferior L5 articular facet. IMPRESSION: 1. Suggestion of subtle acute nondisplaced fractures involving the posterior medial aspects of the right ninth and 10th ribs. Correlate with point tenderness. 2. No pneumothorax. 3. No acute posttraumatic intrathoracic, intra-abdominal or intrapelvic abnormality 4. Cirrhosis with splenomegaly and abdominal varicosities compatible with portal venous hypertension. ACT 112: Negative or not required by law. Electronically signed by: Bud Madera M.D. 06/30/2022 3:[address] 06/30/22 13:22 CT chest diagnostic wo con, CT thoracic spine wo con, CT lumbar spine wo con, CT abd pelvis wo con CLINICAL HISTORY: 37 years-old Female with trauma. Acute chest and abdominal trauma status post fall TECHNIQUE: Multiaxial CT images of the chest, abdomen and pelvis, CT and thoracic spine were performed without contrast. A dose lowering technique was utilized adhering to the principles of ALARA. COMPARISON: Chest CT 07/13/21, CT abdomen 04/15/22. FINDINGS: CT CHEST: The lungs are clear. The mediastinal vascular structures are within normal limits. Right IJ Sofujj-c-Wgvr catheter distal tip terminates within the mid SVC. No mediastinal or hilar lymphadenopathy. No pleural effusion or pneumothorax. Mild sigmoidal scoliosis of the thoracic spine. No acute fracture identified. CT ABDOMEN/PELVIS: No pneumatosis or pneumoperitoneum. Spleen is enlarged measuring 13.4 cm in length. Unremarkable pancreas with a few punctate calcifications noted within the uncinate process. The adrenal glands are within normal limits. Punctate calcification within the jessica hepatis may represent an adherent gallstone. Mild marginal nodularity of the liver suggestive of cirrhosis. No hepatic mass identified. Unremarkable kidneys, urinary bladder, uterus and adnexa. Aorta and IVC are unremarkable. Abdominal varicosities. There is no lymphadenopathy identified. No bowel obstruction or bowel wall thickening. Moderate fecal retention. Noninflamed appendix. No ascites or mesenteric inflammation. Tiny fat filled umbilical hernia. No acute fracture identified. CT THORACIC SPINE: Upper thoracic levoscoliosis. Mild multilevel spondylitic spurring and facet arthrosis. The intervertebral disc spaces are generally well maintained. Equivocal acute nondisplaced fracture involves the posterior medial aspect of the right ninth and 10th ribs. (Please see image 186 of series 10 and image 21 of the sagittal series. No acute vertebral body fracture identified. CT LUMBAR SPINE: Mild lumbar levoscoliosis. Mild to moderate multilevel facet arthrosis. No acute fracture, subluxation or endplate erosion. The imaged sacrum and iliac bones appear intact. Healed chronic fracture of the right inferior L5 articular facet. IMPRESSION: 1. Suggestion of subtle acute nondisplaced fractures involving the posterior medial aspects of the right ninth and 10th ribs. Correlate with point tenderness. 2. No pneumothorax. 3. No acute posttraumatic intrathoracic, intra-abdominal or intrapelvic abnormal ity 4. Cirrhosis with splenomegaly and abdominal varicosities compatible with portal venous hypertension. ACT 112: Negative or not required by law. Electronically signed by: Bud Madera M.D. 06/30/2022 3:[address] 06/30/22 13:22 CT chest diagnostic wo con, CT thoracic spine wo con, CT lumbar spine wo con, CT abd pelvis wo con CLINICAL HISTORY: 37 years-old Female with trauma. Acute chest and abdominal trauma status post fall TECHNIQUE: Multiaxial CT images of the chest, abdomen and pelvis, CT and thoracic spine were performed without contrast. A dose lowering technique was utilized adhering to the principles of ALARA. COMPARISON: Chest CT 07/13/21, CT abdomen 04/15/22. FINDINGS: CT CHEST: The lungs are clear. The mediastinal vascular structures are within normal limits. Right IJ Vhtcsb-p-Cuij catheter distal tip terminates within the mid SVC. No mediastinal or hilar lymphadenopathy. No pleural effusion or pneum othorax. Mild sigmoidal scoliosis of the thoracic spine. No acute fracture identified. CT ABDOMEN/PELVIS: No pneumatosis or pneumoperitoneum. Spleen is enlarged measuring 13.4 cm in length. Unremarkable pancreas with a few punctate calcifications noted within the uncinate process. The adrenal glands are within normal limits. Punctate calcification within the jessica hepatis may represent an adherent gallstone. Mild marginal nodularity of the liver suggestive of cirrhosis. No hepatic mass identified. Unremarkable kidneys, urinary bladder, uterus and adnexa. Aorta and IVC are unremarkable. Abdominal varicosities. There is no lymphadenopathy identified. No bowel obstruction or bowel wall thickening. Moderate fecal retention. Noninflamed appendix. No ascites or mesenteric inflammation. Tiny fat filled umbilical hernia. No acute fracture identified. CT THORACIC SPINE: Upper thoracic levoscoliosis. Mild multilevel spondylitic spurring and facet arthrosis. The intervertebral disc spaces are generally well maintained. Equivocal acute nondisplaced fracture involves the posterior medial aspect of the right ninth and 10th ribs. (Please see image 186 of series 10 and image 21 of the sagittal series. No acute vertebral body fracture identified. CT LUMBAR SPINE: Mild lumbar levoscoliosis. Mild to moderate multilevel facet arthrosis. No acute fracture, subluxation or endplate erosion. The imaged sacrum and iliac bones appear intact. Healed chronic fracture of the right inferior L5 articular facet. IMPRESSION: 1. Suggestion of subtle acute nondisplaced fractures involving the posterior medial aspects of the right ninth and 10th ribs. Correlate with point tenderness. 2. No pneumothorax. 3. No acute posttraumatic intrathoracic, intra-abdominal or intrapelvic abnormality 4. Cirrhosis with splenomegaly and abdominal varicosities compatible with portal venous hypertension. ACT 112: Negative or not required by law. Electronically signed by: Bud Madera M.D. 06/30/2022 3:[address] 06/30/22 13:[address] DOSE: 959.53 mGy.cm HISTORY: fall TECHNIQUE: Multiaxial CT images of the cervical spine were performed and reformatted in the sagittal and coronal plane without the use of contrast. A dose lowering technique was utilized adhering to the principles of ALARA. COMPARISON: Cervical spine CT 07/22/2021. FINDINGS: No fractures. No subluxation. Prevertebral soft tissues and the C1-C2 interval are intact. No pneumothorax. There is a partially visualized right jugular central venous catheter. IMPRESSION: No fractures within the cervical spine. ACT 112: Negative or not required by law. Electronically signed by: Weston Cisneros M.D. 06/30/2022 2:33 PM Supervising Physician Co-Signing Physician Notes Patient is a 37-year-old female with past medical history of alcoholic cirrhosis, chronic alcohol dependency, GERD, portal hypertension with varices who was just discharged from alcohol rehab few days ago presented to the hospital today with a fall in the shower. According to the patient and her boyfriend, she started back drinking and had too strong beer today. She had some nausea and vomiting today. During the fall, she hit her head and the forehead and the back and right side of her body. Her mother brought her to the hospital. She was found to have elevated alcohol level, elevated creatinine of 2.57, and right ninth and 10th rib nondisplaced fracture. On examination, patient is agitated and anxious. Complains of headache and right-sided rib cage pain Lungs are clear to auscultation bilaterally, normal cardiac exam with tachycardia Right rib cage is tender, right upper quadrant tenderness, minimal distention of the abdomen which could be due to ascites. Extremity and skin examination is normal Neurological examination is unremarkable Admit to telemetry for monitoring Start CIWA protocol Hold diuretics including Lasix and Aldactone. Start IV fluid and check kidney function and electrolytes closely Consult gastroenterology service for possible need for evaluation including EGD for persistent nausea and vomiting Counseled the patient regarding alcohol cessation (1) Cirrhosis Ascites presence: with ascites Hepatic cirrhosis type: alcoholic cirrhosis Qualified Code(s): K70.31 - Alcoholic cirrhosis of liver with ascites
--- NOTE | 2022-06-30 15:56 | Electrocardiogram Report ---
Test Reason : Blood Pressure : / mmHG Vent. Rate : 091 BPM Atrial Rate : 091 BPM P-R Int : 166 ms QRS Dur : 088 ms QT Int : 390 ms P-R-T Axes : 048 -21 027 degrees QTc Int : 479 ms Poor data quality, interpretation may be adversely affected Normal sinus rhythm RSR' or QR pattern in V1 suggests right ventricular conduction delay Poor R wave progression, consider anterior OR vs. lead placement vs. LVH Abnormal ECG When compared with ECG of 12-MAR-2022 02:24, Questionable change in initial forces of Septal leads Confirmed by Trevor Prasad ([id number]) on 06/30/2022 3:56:20 PM Referred By: ED Confirmed By:Trevor Prasad
--- NOTE | 2022-06-30 16:03 | Electrocardiogram Report ---
Test Reason : Blood Pressure : / mmHG Vent. Rate : 088 BPM Atrial Rate : 088 BPM P-R Int : 168 ms QRS Dur : 090 ms QT Int : 416 ms P-R-T Axes : 053 -21 037 degrees QTc Int : 503 ms Normal sinus rhythm Poor R wave progression, consider anterior MT vs. lead placement vs. LVH Prolonged QT Abnormal ECG When compared with ECG of 30-JUN-2022 12:18, (unconfirmed) Questionable change in initial forces of Anterior leads Confirmed by Trevor Prasad ([id number]) on 06/30/2022 4:03:00 PM Referred By: Confirmed By:Trevor Prasad
[2022-06-30] MEDS ORDERED: LORazepam 1 MG TAB PO PRN ×3 (16:55)
[2022-06-30] MEDS ORDERED: Ativan PO Alcohol Withdrawal--Active Protocol PO PRN (16:55)
[2022-06-30] MEDS ORDERED: FLUARIX QUADRIVALENT 0.5 ML SYR IM ONE (17:13)
[2022-06-30] MEDS ORDERED: PNEUMOCOCCAL POLYSACCHARIDES 25 MCG/0.5 ML VIAL/SYR IM ONE (17:13)
[2022-06-30 17:43] LABS: Appearance Urine Clear (Clear); Bilirubin Urine Negative (Negative); Blood Urine Negative (Negative); Color Urine Yellow; Glucose Urine UA Negative (Negative); Ketones Urine Negative (Negative); Leukocyte Esterase Urine Negative (Negative); Nitrite Urine Negative (Negative); Protein Urine Negative (Negative); Urobilinogen Urine Negative (Negative)
[2022-06-30 18:30] LABS: Amphetamines+Metham, Urine Neg (Neg); Barbiturates, Urine Neg (Neg); Benzodiazepine, Urine Neg (Neg); Cocaine, Urine Neg (Neg); MDMA (Ecstacy), Urine Pos (Neg); Methadone, Urine Neg (Neg); Opiate, Urine Pos (Neg); Phencyclidine, Urine Neg (Neg)
[2022-06-30] MEDS ORDERED: GABAPENTIN 600MG ALCOHOL WITHDRAWAL LOAD PO STA (18:37)
[2022-06-30] MEDS ORDERED: GABAPENTIN 600 MG TAB PO ONE (18:37)
[2022-06-30] MEDS: LIDOCAINE 5% 1 PATCH TD SCH (18:50)
[2022-06-30] MEDS: hydrOXYzine HCl 25 MG TAB PO PRN (18:52)
[2022-06-30] MEDS ORDERED: ACETAMINOPHEN 325 MG TAB PO PRN (19:52)
[2022-06-30] MEDS ORDERED: POLYETHYLENE (MIRALAX) 17 GM PACK PO PRN (19:52)
[2022-06-30] MEDS ORDERED: SODIUM CHLORIDE 0.9% 500 ML IV SCH (20:00)
[2022-06-30] MEDS: Ipratropium HFA Inhaler (Combivent Respimat P&T Subs) INH SCH (20:09)
[2022-06-30] MEDS: Albuterol HFA 8 GM Inhaler (Combivent Respimat P&T Subs) INH SCH (20:09)
[2022-06-30] MEDS: FLUTICASONE PROPIONATE NA SPR 16 GM BTL NAE SCH (20:15)
[2022-06-30] MEDS: POT PHOSPHATE MONOBASIC W/ SOD TAB PO SCH (20:16)
[2022-06-30] MEDS: MONTELUKAST SODIUM 10 MG TABLET PO SCH (20:17)
[2022-06-30] MEDS: MAGNESIUM OXIDE 400 MG TAB PO SCH (20:17)
[2022-06-30] MEDS: AMPHETAMINE ASP/SULF/DEXTRAMPH 5 MG TAB PO SCH (20:37)
[2022-06-30] MEDS ORDERED: IPRATROPIUM BROMIDE/ALBUTEROL respimat INH INH SCH (21:00)
[2022-06-30] MEDS: HYDROmorphone INJ 0.5 MG/0.5 ML SYR IV PRN (21:04)
[2022-07-01] MEDS: GABAPENTIN 100 MG CAP PO SCH ×3 (03:23→06:28)
[2022-07-01] MEDS: HYDROmorphone INJ 0.5 MG/0.5 ML SYR IV PRN ×3 (05:07→21:28)
[2022-07-01 06:03] LABS: Hematocrit (blood only) 26.6 % (34.1-44.9); Hemoglobin 9.2 g/dl (12.0-16.0); Mean Corpuscular Hemoglobin 29.4 pg (25.0-34.0); Mean Corpuscular Hgb Conc 34.6 g/dL (32.0-36.0); Mean Platelet Volume 9.7 fL (9.4-12.3); Platelet Count 97 K/uL (130-400); RDW Coefficient of Variation 13.1 % (11.5-14.5); RDW Standard Deviation 40.1 fL (36.4-46.3); Red Blood Count 3.13 M/uL (3.93-5.22); White Blood Count 5.63 K/ul (4.8-10.8)
[2022-07-01 06:27] LABS: Albumin Globulin Ratio 1.3 (0.9-2); Albumin Level 3.4 gm/dl (3.4-5.0); BUN Creatinine Ratio 6.3 (10-20); Bilirubin,Total 2.5 mg/dl (0.2-1.0); Calcium 8.1 mg/dl (8.5-10.1); Creatinine Clr Calc Pharmacy 34.8 ml/min; Est GFR (African American) 38.4 ml/min; Est GFR (Non-African American) 33.1 ml/min; Globulin 2.6 gm/dl (2.5-4.0); Potassium 3.3 mmol/L (3.5-5.1)
[2022-07-01] MEDS: Albuterol HFA 8 GM Inhaler (Combivent Respimat P&T Subs) INH SCH ×2 (07:00→19:28)
[2022-07-01] MEDS: Ipratropium HFA Inhaler (Combivent Respimat P&T Subs) INH SCH ×2 (07:00→19:29)
[2022-07-01] MEDS ORDERED: NON-FORMULARY MEDICATION (Nicotine 14 mg/24 hr Patch 24 Hour) TD SCH (09:00)
[2022-07-01] MEDS ORDERED: PANTOprazole 40 MG TAB PO SCH (09:00)
[2022-07-01] MEDS: LIDOCAINE 5% 1 PATCH TD SCH (09:24)
[2022-07-01] MEDS: POTASSIUM CHLORIDE / WTR 10 MEQ/100 ML PLCT IV SCH ×3 (09:26→12:03)
[2022-07-01] MEDS: THIAMINE HCL 100 MG TAB PO SCH (09:27)
[2022-07-01] MEDS: LORATADINE 10 MG TAB PO SCH (09:28)
[2022-07-01] MEDS: POT PHOSPHATE MONOBASIC W/ SOD TAB PO SCH ×4 (09:28→21:27)
[2022-07-01] MEDS: MULTIVITAMIN TAB PO SCH (09:28)
[2022-07-01] MEDS: ASCORBIC ACID 500 MG TAB PO SCH (09:28)
[2022-07-01] MEDS: CHOLECALCIFEROL 1,000 UNITS 25 MCG TAB PO SCH (09:28)
[2022-07-01] MEDS: MAGNESIUM OXIDE 400 MG TAB PO SCH ×2 (09:29→21:26)
[2022-07-01] MEDS: LACTULOSE SYRUP 20 GM/30 ML UDC PO SCH (09:29)
[2022-07-01] MEDS: NICOTINE 14 MG/24 HR PATCH TD SCH (09:29)
[2022-07-01] MEDS: oxyCODONE HCL IR 5 MG TAB (IMMEDIATE RELEASE) PO PRN ×3 (09:37→23:07)
[2022-07-01] MEDS: AMPHETAMINE ASP/SULF/DEXTRAMPH 5 MG TAB PO SCH ×2 (09:38→21:25)
[2022-07-01] MEDS: FLUTICASONE PROPIONATE NA SPR 16 GM BTL NAE SCH ×2 (09:39→21:25)
[2022-07-01] MEDS: FLUTICASONE/VILANTEROL 200/25MCG 14 PUFFS/INHALER INH SCH (09:39)
[2022-07-01] MEDS: UMECLIDINIUM BROMIDE 62.5MCG/BLISTER 7 PUFFS/INHALER INH SCH (09:40)
--- NOTE | 2022-07-01 09:51 | Gastrointestinal Consultation ---
Date of Consultation July 01, 2022 Assessment & Plan (1) Alcohol abuse with withdrawal: (2) Cirrhosis: (3) Nausea & vomiting: Plan Appreciate primary hospitalists management of ETOH withdrawal. No significant alcoholic hepatitis (DF is very low at 2.8), thus no need for steroids or Trental. No significant current GI bleeding. No plans to repeat EGD at this time. Not currently vomiting. Will advance diet to low Na regular consistency. Continue antiemetics prn. Most important for this pt's health going forward is complete abstention from ETOH and drugs of abuse. Supervising Physician Co-Signing Physician Notes I performed a history and physical examination of the patient today, including specifically on physical exam - soft abdomen. I have discussed the patient's management with the advanced practitioner. Please refer to the nurse practitioner's note for the documented findings and plan of care. No overt GI bleeding, H/H stable. Recent EGD with no varices. Treat with PPI. Alcohol cessation. Recall GI if needed. History of Present Illness Reason for Consultation: etoh cirrhosis, intractable N/V Requesting Physician: Evelyn Mercado PA-C Attending Physician: Barry Rabago MD History of Present Illness Ms. Kathie Burr a 37-year-old female with a history of alcoholic hepatitis and cirrhosis. She completed a 53-day inpatient rehab 5 days ago, then yesterday presented to the emergency department for fall. Tox screen on arrival was positive for alcohol ecstasy and opiates. She tells me that she has had problems with nausea and vomiting for several mo nths. She believes she was using ondansetron and Zofran at rehab but still continued to have a lot of vomiting. Regarding the mention of hematemesis on her admission paperwork, the patient reports that about 2 weeks ago at rehab, she woke up tasting and feeling something in her mouth. She coughed out a blood clot. She was taken to the hospital where an NG tube was inserted and she tells me that the fluid that was brought up through the NG was blood-tinged. It does not sound like it was a significant bleeding episode. She has not had any gross GI bleeding since that time. Is most recent bowel movement was yesterday, brown and formed. On arrival, hemoglobin 9.2, her baseline is approximately 10. Her platelets are 97 white count is 5.6 INR is 1.2 BUN is 12 and creatinine 1.92 sodium is 135. Total bilirubin is 2.5 AST 51 ALT 27 and alk phos 92. She is resting quietly in bed when awakened, she complained of right rib pain and reporting having had a lot of nausea and vomiting. She is currently NPO. Most recent EGD was in March 2022 with jose, no esophageal varices. No PHG was noted, though PHG was noted on EGD in November 2021. Allergies Allergy/AdvReac Type Severity Reaction Status Date / Time banana Allergy Intermediate RASH, Verified 04/22/22 07:49 THROAT SLIGHTLY SWOLLEN Penicillins Allergy Unknown HAPPENED Verified 04/22/22 07:49 A CHILD Home Medications Medication Instructions Recorded Confirmed Type albuterol sulfate 90 mcg/actuation 2 inh inhalation BID PRN Shortness 06/24/20 06/30/22 History aerosol inhaler (ProAir HFA) Of Breath budesonide-formoterol HFA 160 2 puff inhalation BID 06/20/21 06/30/22 History mcg-4.5 mcg/actuation aerosol inhaler (Symbicort) dextroamphetamine-amphetamine 5 mg 5 mg PO BID 06/20/21 06/30/22 History tablet (Adderall) ipratropium 20 mcg-albuterol 100 1 puff inhalation BID 06/20/21 06/30/22 History mcg/actuation mist for inhalation (Combivent Respimat) loratadine 10 mg tablet 10 mg PO QAM 06/20/21 06/30/22 History montelukast 10 mg tablet 10 mg PO HS 06/20/21 06/30/22 History omeprazole 20 mg capsule,delayed 20 mg PO QAM 06/20/21 06/30/22 History release azelastine 137 mcg (0.1 %) nasal 1 spray intranasal BID 10/03/21 06/30/22 History spray aerosol fluticasone propionate 50 2 spray intranasal BID 10/03/21 06/30/22 History mcg/actuation nasal spray,suspension multivitamin 1 tab PO QAM 10/03/21 06/30/22 History ondansetron HCl 4 mg tablet 4 mg PO Q8H PRN Nausea 10/31/21 06/30/22 History furosemide 40 mg tablet (Lasix) 80 mg PO QAM 11/20/21 06/30/22 History ascorbic acid (vitamin C) 500 mg 500 mg PO QAM 01/31/22 06/30/22 History tablet (Vitamin C) cholecalciferol (vitamin D3) 50 2,000 mcg PO QAM 01/31/22 06/30/22 History mcg (2,000 unit) capsule (Vitamin D3) hydroxyzine HCl 25 mg tablet 25 mg PO TID PRN Anxiety 01/31/22 06/30/22 History spironolactone 100 mg tablet 200 mg PO QAM 01/31/22 06/30/22 History tiotropium bromide 2.5 2 puff inhalation BID 01/31/22 06/30/22 History mcg/actuation mist for inhalation (Spiriva Respimat) thiamine HCl (vitamin B1) 100 mg 100 mg PO QAM #30 tabs 03/23/22 06/30/22 Rx tablet magnesium oxide 400 mg (241.3 mg 400 mg PO BID 03/25/22 06/30/22 History magnesium) tablet potassium chloride 20 mEq 20 meq PO QAM 03/25/22 06/30/22 History tablet,extended release sodium di- and 2 tab PO QID 03/25/22 06/30/22 History monophosphate-potassium phos monobasic 250 mg tablet (Phospha 250 Neutral) lactulose 10 gram/15 mL oral 30 ml PO QAM 04/17/22 06/30/22 History solution nicotine 14 mg/24 hr daily 1 patch transdermal DAILY 04/17/22 06/30/22 History transdermal patch Patient History Medical History Acute hyponatremia Acute on chronic alcoholic liver disease ADD (attention deficit disorder) Alcohol abuse Alcohol abuse Alcohol intoxication Alcoholic cirrhosis with abn coags Alcoholic hepatitis Anemia pre-op H&H 04/15/22: 05/15 Anxiety Asthma well controlled with inhalers Decompensated hepatic cirrhosis Depression Fatty liver GERD (gastroesophageal reflux disease) History of abdominal paracentesis History of pancreatitis alcoholic 05/2021 per records Hyperbilirubinemia Hypokalemia Hypomagnesemia Jaundice Pneumonia February 2022 treated at [facility]. 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 No SOB, no cough Cardio: No palpitations/irregular beats, no chest pain GI: Ad per HPI, otherwise (-) : Denies pain on urination Skin: No jaundice, itching or new rashes Physical Exam Constitutional: well developed, well nourished and cooperative; no acute distress Eyes: PERRL, conjunctivae normal, anicteric sclerae ENMT: external ear and nose normal, oropharynx normal Neck: trachea midline, no thyromegaly Respiratory: normal respiratory effort, lungs clear to auscultation Cardiovascular: RRR, no murmur, no edema Gastrointestinal (Abdomen): normal bowel sounds, soft, nontender, no hepatosplenomegaly Musculoskeletal: Tenderness on the right lower ribs anteriorly, no red/swollen joints Skin: no rashes, warm and dry NO jaundice Neurologic: PERRL, EOMI, accommodation nl, no face palsy, no dysarthria Psychiatric: A+Ox3, euthymic affect Lymphatic: no cervical or axillary lymphadenopathy Results & Data ([facility]) Vital Signs (Past 12 Hours) Vital Signs Temp Pulse Pulse Resp BP Pulse Ox O2 Del Method 07/01/22 07:29 36.7 C 94 H 18 112/74 97 Room Air 07/01/22 07:00 91 H 16 97 Room Air 06/30/22 22:09 104 H 07/01/22 03:45 36.8 C 94 H 14 120/76 95 Room Air 06/30/22 23:15 36.9 C 101 H 16 111/71 94 Room Air Laboratory Results See HPI. Also, INR 1.2 DF score = 2.[address] chest/abd/pelvis/spine 06/30/22: CT CHEST: The lungs are clear. The mediastinal vascular structures are within normal limits. Right IJ Orwhay-a-Amet catheter distal tip terminates within the mid SVC. No mediastinal or hilar lymphadenopathy. No pleural effusion or pneumothorax. Mild sigmoidal scoliosis of the thoracic spine. No acute fracture identified. CT ABDOMEN/PELVIS: No pneumatosis or pneumoperitoneum. Spleen is enlarged measuring 13.4 cm in length. Unremarkable pancreas with a few punctate calcifications noted within the uncinate process. The adrenal glands are within normal limits. Punctate calcification within the jessica hepatis may represent an adherent gallstone. Mild marginal nodularity of the liver suggestive of cirrhosis. No hepatic mass identified. Unremarkable kidneys, urinary bladder, uterus and adnexa. Aorta and IVC are unremarkable. Abdominal varicosities. There is no lymphadenopathy identified. No bowel obstruction or bowel wall thickening. Moderate fecal retention. Noninflamed appendix. No ascites or mesenteric inflammation. Tiny fat filled umbilical hernia. No acute fracture identified. CT THORACIC SPINE: Upper thoracic levoscoliosis. Mild multilevel spondylitic spurring and facet arthrosis. The intervertebral disc spaces are generally well maintained. Equivocal acute nondisplaced fracture involves the posterior medial aspect of the right ninth and 10th ribs. (Please see image 186 of series 10 and image 21 of the sagittal series. No acute vertebral body fracture identified. CT LUMBAR SPINE: Mild lumbar levoscoliosis. Mild to moderate multilevel facet arthrosis. No acute fracture, subluxation or endplate erosion. The imaged sacrum and iliac bones appear intact. Healed chronic fracture of the right inferior L5 articular facet. IMPRESSION: 1. Suggestion of subtle acute nondisplaced fractures involving the posterior medial aspects of the right ninth and 10th ribs. Correlate with point tenderness. 2. No pneumothorax. 3. No acute posttraumatic intrathoracic, intra-abdominal or intrapelvic abnormality 4. Cirrhosis with splenomegaly and abdominal varicosities compatible with portal venous hypertension. (1) Cirrhosis Ascites presence: with ascites Hepatic cirrhosis type: alcoholic cirrhosis Qualified Code(s): K70.31 - Alcoholic cirrhosis of liver with ascites
[2022-07-01] MEDS: ONDANSETRON INJ 2 MG/ML 2 ML VIAL IV PRN ×2 (13:04→18:53)
--- NOTE | 2022-07-01 14:15 | Hospitalist Progress Note ---
Date of Service July 01, 2022 Assessment & Plan (1) Fall: (2) Closed rib fracture: (3) VAN (acute kidney injury): (4) Alcohol intoxication: (5) Alcohol use disorder: (6) Generalized anxiety disorder: (7) Cirrhosis: (8) Depression: (9) ADD (attention deficit disorder): (10) Asthma: Plan 37yo F with a PMH of alcoholic cirrhosis with ascites, continued severe alcohol dependence, ADD, depression, anxiety and other medical problems listed below who presents after fall at home on the morning of the day of arrival. She is being managed for the following: Fall Rib fractures Patient came in with complaint of fall in the shower, patient relapsed on drinking, patient hit her head/forehead/back/right side of her body. Head CT, cervical spine, thoracic, lumbar, abd/pelvis, chest CTs performed - evidence of acute nondisplaced fractures involving the posterior medial aspects of the right ninth and 10th ribs. Otherwise no traumatic injuries noted Lidocaine patch, ice, Tylenol for rib fractures. Can use Voltaren gel. Acute renal failure Creatinine elevated at 2.57 (baseline ~0.8) Poor oral intake given prolonged N/V and still taking Lasix and spironolactone for cirrhosis Holding diuretics for now, IV fluids, creatinine trending down. Repeat BMP in AM Avoid nephrotoxic agents, lasix and aldactone held. Alcoholic cirrhosis Intractable nausea/vomiting Patient with history of cirrhosis, following with [facility] Left 2-month inpatient alcohol treatment facility 4 days ago [employer] and resumed drinking the day before arrival Worsened nausea and vomiting with poor appetite while at treatment center, reports some hematemesis but none for the past week GI evaluated, no indication for scope for now, advance diet as tolerated. Patient reports improving nausea and vomiting, and is tolerating diet. Continue with PPI, antiemetics as needed Continued severe alcoholic dependence Endorsing last drinks on the morning of arrival before 0900. Ethyl alcohol level 253 at admission. Placed on alcohol withdrawal protocol. Patient advised against any use of alcoholic drinks in future. CM to assist w/ outpatient resources regarding alcoholic cessation help. ADD Continue Adderall History of tobacco use Continue nicotine patch Asthma Stable; continue home inhalers DVT Ppx: SCDs Code status: FULL PCP: Ritu Dispo: Admitted to PCU Admission and Anticipated Discharge Date Admission Date: June 30, 2022 Subjective Patient seen and examined at bedside as a follow-up of intractable nausea/vomiting, fall, rib fracture, acute renal failure, alcohol dependence. Patient was lying in bed, on room air, NAD, reports right lower chest/back pain ongoing, not controlled despite lidocaine patch and oxycodone, does not appear in any acute distress, denied any new acute event overnight, patient has been evaluated by GI, patient's nausea and vomiting improved and has been advanced on diet, tolerating diet, patient reports moving bowels okay, patient denies any headache or dizziness or sore throat or cough emergency room palpitation or chest pain or other review of symptoms. Physical Exam Physical Exam: GENERAL: Alert and oriented x3. NAD, on RA. HEENT: No pallor, no icterus. Pupils equal, round and reactive to light. Oral mucosa moist. NECK: No JVD, no neck masses. HEART: S1 and S2 heard. Regular rate and rhythm. No murmur, no gallop. Rt lower rib cage tenderness, no erythema or open wound RESPIRATORY SYSTEM: Normal AP diameter. No accessory muscle use. No wheezing, no crackles. ABDOMEN: Soft, bowel sounds present, nontender, no distention. CENTRAL NERVOUS SYSTEM: No facial droop. Speech is clear. Obeys simple commands. Moves extremities. EXTREMITIES: No edema, no erythema seen. Results & Data Results & Data ([facility]) Vital Signs (Past 12 Hours) Vital Signs Temp Pulse Resp BP Pulse Ox O2 Del Method 07/01/22 11:41 36.8 C 89 18 111/76 96 Room Air 07/01/22 07:29 36.7 C 94 H 18 112/74 97 Room Air 07/01/22 07:00 91 H 16 97 Room Air 07/01/22 03:45 36.8 C 94 H 14 120/76 95 Room Air (1) Cirrhosis Ascites presence: with ascites Hepatic cirrhosis type: alcoholic cirrhosis Qualified Code(s): K70.31 - Alcoholic cirrhosis of liver with ascites
[2022-07-01] MEDS: SODIUM CHLORIDE 0.9% 1000ML 1,000 ML IV SCH (14:49)
[2022-07-01] MEDS ORDERED: GABAPENTIN 600 MG TAB PO SCH (18:45)
[2022-07-01] MEDS ORDERED: HYDROmorphone INJ 0.5 MG/0.5 ML SYR IV STA (19:41)
[2022-07-01] MEDS: DICLOFENAC SOD 1% GEL 100 GM TUBE EXT SCH (21:25)
[2022-07-01] MEDS: MONTELUKAST SODIUM 10 MG TABLET PO SCH (21:26)
[2022-07-01] MEDS: PANTOprazole 40 MG TAB PO SCH (21:28)
[2022-07-01] MEDS: hydrOXYzine HCl 25 MG TAB PO PRN (23:32)
[2022-07-01] MEDS: MELATONIN 3 MG TAB PO PRN (23:32)
[2022-07-02] MEDS ORDERED: oxyCODONE HCL IR 5 MG TAB (IMMEDIATE RELEASE) PO STA (02:09)
[2022-07-02] MEDS: SODIUM CHLORIDE 0.9% 1000ML 1,000 ML IV SCH (02:24)
[2022-07-02] MEDS: oxyCODONE HCL IR 5 MG TAB (IMMEDIATE RELEASE) PO PRN ×4 (05:54→22:04)
[2022-07-02 05:58] LABS: Hematocrit (blood only) 25.3 % (34.1-44.9); Hemoglobin 8.7 g/dl (12.0-16.0); Mean Platelet Volume 10.5 fL (9.4-12.3); Platelet Count 84 K/uL (130-400); White Blood Count 4.62 K/ul (4.8-10.8)
[2022-07-02 06:22] LABS: BUN Creatinine Ratio 6.4 (10-20); Creatinine Clr Calc Pharmacy 39.5 ml/min; Est GFR (African American) 43.6 ml/min; Est GFR (Non-African American) 37.6 ml/min; Magnesium 1.8 mg/dl (1.7-2.4); Phosphorus 3.5 mg/dl (2.5-4.9); Potassium 3.3 mmol/L (3.5-5.1)
[2022-07-02 06:26] LABS: Mean Corpuscular Hemoglobin 29.3 pg (25.0-34.0); Mean Corpuscular Hgb Conc 34.4 g/dL (32.0-36.0); Mean Corpuscular Volume 85.2 fL (80.0-100.0); RDW Standard Deviation 40.1 fL (36.4-46.3); Red Blood Count 2.97 M/uL (3.93-5.22)
[2022-07-02] MEDS: Albuterol HFA 8 GM Inhaler (Combivent Respimat P&T Subs) INH SCH ×2 (07:02→19:08)
[2022-07-02] MEDS: Ipratropium HFA Inhaler (Combivent Respimat P&T Subs) INH SCH ×2 (07:02→19:09)
[2022-07-02] MEDS: THIAMINE HCL 100 MG TAB PO SCH (09:04)
[2022-07-02] MEDS: ONDANSETRON INJ 2 MG/ML 2 ML VIAL IV PRN (09:10)
[2022-07-02] MEDS: PANTOprazole 40 MG TAB PO SCH ×2 (09:10→20:21)
[2022-07-02] MEDS: LORATADINE 10 MG TAB PO SCH (09:10)
[2022-07-02] MEDS: UMECLIDINIUM BROMIDE 62.5MCG/BLISTER 7 PUFFS/INHALER INH SCH (09:11)
[2022-07-02] MEDS: MAGNESIUM OXIDE 400 MG TAB PO SCH ×2 (09:11→20:21)
[2022-07-02] MEDS: CHOLECALCIFEROL 1,000 UNITS 25 MCG TAB PO SCH (09:11)
[2022-07-02] MEDS: NICOTINE 14 MG/24 HR PATCH TD SCH (09:11)
[2022-07-02] MEDS: FLUTICASONE PROPIONATE NA SPR 16 GM BTL NAE SCH ×2 (09:12→20:22)
[2022-07-02] MEDS: DICLOFENAC SOD 1% GEL 100 GM TUBE EXT SCH ×3 (09:12→20:19)
[2022-07-02] MEDS: ASCORBIC ACID 500 MG TAB PO SCH (09:12)
[2022-07-02] MEDS: LACTULOSE SYRUP 20 GM/30 ML UDC PO SCH (09:13)
[2022-07-02] MEDS: FLUTICASONE/VILANTEROL 200/25MCG 14 PUFFS/INHALER INH SCH (09:13)
[2022-07-02] MEDS: LIDOCAINE 5% 1 PATCH TD SCH (09:13)
[2022-07-02] MEDS: POT PHOSPHATE MONOBASIC W/ SOD TAB PO SCH ×4 (09:14→20:21)
[2022-07-02] MEDS: MULTIVITAMIN TAB PO SCH (09:14)
[2022-07-02] MEDS: AMPHETAMINE ASP/SULF/DEXTRAMPH 5 MG TAB PO SCH ×2 (09:15→16:40)
[2022-07-02] MEDS: HYDROmorphone INJ 0.5 MG/0.5 ML SYR IV PRN ×3 (11:49→20:16)
[2022-07-02] MEDS ORDERED: POTASSIUM CHLORIDE CRTAB 20 MEQ TABCR PO STA (12:12)
--- NOTE | 2022-07-02 15:48 | Hospitalist Progress Note ---
Date of Service July 02, 2022 Assessment & Plan (1) Fall: (2) Closed rib fracture: (3) VAN (acute kidney injury): (4) Alcohol intoxication: (5) Alcohol use disorder: (6) Generalized anxiety disorder: (7) Cirrhosis: (8) Depression: (9) ADD (attention deficit disorder): (10) Asthma: Plan 37yo F with a PMH of alcoholic cirrhosis with ascites, continued severe alcohol dependence, ADD, depression, anxiety and other medical problems listed below who presents after fall at home on the morning of the day of arrival. She is being managed for the following: Fall Rib fractures-posterior right ninth and 10th ribs without any pneumothorax and or hematoma Patient came in with complaint of fall in the shower, patient relapsed on drinking, patient hit her head/forehead/back/right side of her body. Head CT, cervical spine, thoracic, lumbar, abd/pelvis, chest CTs performed - evidence of acute nondisplaced fractures involving the posterior medial aspects of the right ninth and 10th ribs. Otherwise no traumatic injuries noted Lidocaine patch, ice, Tylenol for rib fractures. Can use Voltaren gel. Has been getting intravenous Dilaudid and also oral oxycodone on top of above medications Pain is not yet reasonably controlled-Dilaudid frequency has been increased Acute renal failure Creatinine elevated at 2.57 (baseline ~0.8) Poor oral intake given prolonged N/V and still taking Lasix and spironolactone for cirrhosis Holding diuretics for now, IV fluids, creatinine trending down. Avoid nephrotoxic agents, lasix and aldactone held. Creatinine has been improving and as of this morning is 1.73 Alcoholic cirrhosis Intractable nausea/vomiting Patient with history of cirrhosis, following with Marly VILLAFUERTE Left 2-month inpatient alcohol treatment facility 4 days ago [employer] and resumed dri nking the day before arrival Worsened nausea and vomiting with poor appetite while at treatment center, reports some hematemesis but none for the past week GI evaluated, no indication for scope for now, advance diet as tolerated. Patient reports improving nausea and vomiting, and is tolerating diet. Continue with PPI, antiemetics as needed Still has nausea likely secondary to gastritis Continued severe alcoholic dependence Endorsing last drinks on the morning of arrival before 0900. Ethyl alcohol level 253 at admission. Placed on alcohol withdrawal protocol. Patient advised against any use of alcoholic drinks in future. CM to assist w/ outpatient resources regarding alcoholic cessation help. ADD Continue Adderall History of tobacco use Continue nicotine patch Asthma Stable; continue home inhalers DVT Ppx: SCDs Low platelet with risk of bleeding Increase ambulation Code status: FULL PCP: Ritu Dispo: Admitted to PCU Admission and Anticipated Discharge Date Admission Date: June 30, 2022 Subjective 07/02/2022 The patient was seen and examined in telemetry unit She has been complaining of chest pain with inspiration and nausea Denies any other symptoms of palpitation, shortness of breath, vomiting and or diarrhea She does not have any tremors Review of Systems Review of Systems: All systems reviewed and are unremarkable except as noted below Physical Exam Physical Exam: Lying in bed comfortably Constitutional: well developed, well nourished and + ill appearing Eyes: PERRL, conjunctivae normal, anicteric sclerae ENMT: external ear and nose normal, oropharynx normal Neck: trachea midline, no thyromegaly Respiratory: no respiratory distress Auscultation: lungs clear to auscultation bilaterally Cardiovascular: Rate/Rhythm: regular rate and regular rhythm; not tachycardic Heart Sounds: normal S1 and normal S2; no murmur Extremities: no edema Gastrointestinal (Abdomen): Inspection/Auscultation: abdomen normal to inspection and normal bowel sounds Percussion/Palpation: + abdomen tender (Mildly tender in the epigastrium) and abdomen soft Musculoskeletal: No acute arthritis involving any joint. Pain in the chest wall/ribs with respiration Neurologic: Alert, awake and oriented x3. Generally anxious Results & Data Results & Data ([facility]) Vital Signs (Past 12 Hours) Vital Signs Temp Pulse Pulse Resp BP Pulse Ox O2 Del Method 07/02/22 15:31 36.7 C 89 18 123/77 96 Room Air 07/02/22 11:52 36.8 C 76 18 110/71 98 Room Air 07/02/22 08:09 36.4 C L 88 20 106/68 97 Room Air 07/02/22 07:48 87 07/02/22 07:02 89 16 98 Room Air 07/02/22 04:49 37.1 C 94 H 15 114/74 96 Room Air Laboratory Results Short CBC 07/02/22 Range/Units 05:48 WBC 4.62 L (4.8-10.8) K/ul Hgb 8.7 L (12.0-16.0) g/dl Hct 25.3 L (34.1-44.9) % Plt Count 84 L (130-400) K/uL BMP 07/02/22 05:48 Sodium 135 L Potassium 3.3 L Chloride 107 Carbon Dioxide 20 L BUN 11 Creatinine 1.73 H Glucose 112 H Calcium 8.0 L Medications Administered Current Inpatient Medications Acetaminophen (Acetaminophen 500 Mg Tab) 500 mg PO Q6H PRN PRN Reason: pain/fever Stop: 07/31/22 19:39 Albuterol (Albuterol Hfa 8 Gm Inhaler) 2 puffs INH BID PRN PRN Reason: Shortness Of Breath Stop: 07/30/22 17:53 Albuterol (Albuterol Hfa 8 Gm Inhaler (Combivent Respimat P&T Subs)) 1 puffs INH BIDR [facility] Stop: 07/30/22 18:59 Last Admin: 07/02/22 07:02 Dose: 1 puffs Amphetamine/Dextroamphetamine (Amphetamine Asp/Sulf/Dextramph 5 Mg Tab) 5 mg PO BID [facility] Stop: 07/14/22 20:59 Last Admin: 07/02/22 09:15 Dose: 5 mg Ascorbic Acid (Ascorbic Acid 500 Mg Tab) 500 mg PO QAM [facility] Stop: 07/31/22 08:59 Last Admin: 07/02/22 09:12 Dose: 500 mg Diclofenac Sodium (Diclofenac Sod 1% Gel 100 Gm Tube) 4 gm EXT TID [facility]; Protocol Stop: 07/31/22 20:59 Last Admin: 07/02/22 14:05 Dose: 4 gm Fluticasone Propionate (Fluticasone Propionate Na Spr 16 Gm Btl) 2 sprays LINETTE BID [facility] Stop: 07/30/22 20:59 Last Admin: 07/02/22 09:12 Dose: Not Given Fluticasone/Vilanterol (Fluticasone/Vilanterol 200/25mcg 14 Puffs/Inhaler) 1 puffs INH DAILY [facility] Stop: 07/31/22 08:59 Last Admin: 07/02/22 09:13 Dose: 1 puffs Gabapentin (Gabapentin 400 Mg Cap) 400 mg PO Q24H [facility] Stop: 07/02/22 18:46 Gabapentin (Gabapentin 100 Mg Cap) 200 mg PO Q24H [facility] Stop: 07/03/22 18:46 Heparin Sodium (Porcine) (Heparin 100 Unit/Ml 5ml Flush) 5 ml FLUSH PRN PRN PRN Reason: Flush Stop: 08/01/22 00:52 Hydromorphone HCl (Hydromorphone Inj 0.5 Mg/0.5 Ml Syr) 0.25 mg IV Q4H PRN PRN Reason: Pain not relieved by oral meds Stop: 07/15/22 21:09 Last Admin: 07/02/22 15:16 Dose: 0.25 mg Hydroxyzine HCl (Hydroxyzine Hcl 25 Mg Tab) 25 mg PO TID PRN PRN Reason: Anxiety Stop: 07/30/22 17:53 Last Admin: 07/01/22 23:32 Dose: 25 mg Ipratropium [place] (Ipratropium Hfa Inhaler (Combivent Respimat P&T Subs)) 1 puffs INH BIDR [facility] Stop: 07/30/22 18:59 Last Admin: 07/02/22 07:02 Dose: 1 puffs Lactulose (Lactulose Syrup 20 Gm/30 Ml Udc) 20 gm PO QAM [facility] Stop: 07/31/22 08:59 Last Admin: 07/02/22 09:13 Dose: 20 gm Lidocaine (Lidocaine 5% 1 Patch) 1 patch [facility] [place] [place] Stop: 07/30/22 16:29 Last Admin: 07/02/22 09:13 Dose: 1 patch Loratadine (Loratadine 10 Mg Tab) 10 mg PO QAM [facility] Stop: 07/31/22 08:59 Last Admin: 07/02/22 09:10 Dose: 10 mg Lorazepam (Lorazepam 1 Mg Tab) 1 mg PO UD PRN; Protocol PRN Reason: EtOH Withdrawal AWSS Score 6,7 Stop: 07/30/22 16:54 Lorazepam (Lorazepam 1 Mg Tab) 2 mg PO UD PRN; Protocol PRN Reason: EtOH Withdrawal AWSS Score 8,9 Stop: 07/30/22 16:54 Magnesium Oxide (Magnesium Oxide 400 Mg Tab) 400 mg PO BID [facility] Stop: 07/30/22 20:59 Last Admin: 07/02/22 09:11 Dose: 400 mg Melatonin (Melatonin 3 Mg Tab) 3 mg PO HS PRN PRN Reason: Sleep Stop: 07/31/22 23:04 Last Admin: 07/01/22 23:32 Dose: 3 mg Miscellaneous (Remove Lidoderm Patch) 1 each N/A DAILY@2100 [facility] Stop: 07/30/22 20:59 Last Admin: 07/01/22 21:27 Dose: Not Given Miscellaneous (Remove Nicoderm Patch) 1 each N/A QAM [facility] Stop: 07/31/22 08:59 Last Admin: 07/02/22 09:14 Dose: 1 each Montelukast Sodium (Montelukast Sodium 10 Mg Tablet) 10 mg PO HS [facility] Stop: 07/30/22 20:59 Last Admin: 07/01/22 21:26 Dose: 10 mg Multivitamins (Multivitamin Tab) 1 tab PO QAM [facility] Stop: 07/31/22 08:59 Last Admin: 07/02/22 09:14 Dose: 1 tab Nicotine (Nicotine 14 Mg/24 Hr Patch) 14 mg TD [facility] [place] [place] Stop: 07/31/22 08:59 Last Admin: 07/02/22 09:11 Dose: 14 mg Ondansetron HCl (Ondansetron Inj 2 Mg/Ml 2 Ml Vial) 4 mg IV Q6H PRN PRN Reason: Nausea Stop: 07/30/22 19:51 Last Admin: 07/02/22 09:10 Dose: 4 mg Oxycodone HCl (Oxycodone Hcl Ir 5 Mg Tab (Immediate Release)) 5 mg PO QID PRN PRN Reason: Pain Stop: 07/14/22 20:41 Last Admin: 07/02/22 09:10 Dose: 5 mg Pantoprazole Sodium (Pantoprazole 40 Mg Tab) 40 mg PO BID [facility] Stop: 07/31/22 20:59 Last Admin: 07/02/22 09:10 Dose: 40 mg Polyethylene Glycol (Polyethylene (Miralax) 17 Gm Pack) 17 gm PO DAILY PRN PRN Reason: Constipation Stop: 07/30/22 19:51 Potassium Phosphate (Pot Phosphate Monobasic W/ Sod Tab) 2 tab PO QID [facility] Stop: 07/30/22 20:59 Last Admin: 07/02/22 11:50 Dose: 2 tab Thiamine HCl (Thiamine Hcl 100 Mg Tab) 100 mg PO QAM [facility] Stop: 07/31/22 08:59 Last Admin: 07/02/22 09:04 Dose: 100 mg Umeclidinium [place] (Umeclidinium [place] 62.5mcg/Blister 7 Puffs/Inhaler) 1 puffs INH QAM [facility] Stop: 07/31/22 08:59 Last Admin: 07/02/22 09:11 Dose: 1 puffs Vitamin D (Cholecalciferol 1,000 Units 25 Mcg Tab) 2,000 units PO QAM [facility] Stop: 07/31/22 08:59 Last Admin: 07/02/22 09:11 Dose: 2,000 units (1) Cirrhosis Ascites presence: with ascites Hepatic cirrhosis type: alcoholic cirrhosis Qualified Code(s): K70.31 - Alcoholic cirrhosis of liver with ascites
[2022-07-02] MEDS ORDERED: GABAPENTIN 400 MG CAP PO SCH (18:45)
[2022-07-02] MEDS: MONTELUKAST SODIUM 10 MG TABLET PO SCH (20:21)
[2022-07-03] MEDS: HYDROmorphone INJ 0.5 MG/0.5 ML SYR IV PRN ×5 (00:21→23:06)
[2022-07-03] MEDS ORDERED: HYDROmorphone INJ 0.5 MG/0.5 ML SYR IV STA ×2 (00:40→20:09)
[2022-07-03] MEDS: hydrOXYzine HCl 25 MG TAB PO PRN ×3 (03:59→23:10)
[2022-07-03] MEDS: oxyCODONE HCL IR 5 MG TAB (IMMEDIATE RELEASE) PO PRN ×4 (03:59→21:03)
[2022-07-03] MEDS: MELATONIN 3 MG TAB PO PRN ×2 (03:59→20:43)
[2022-07-03 06:01] LABS: Basophils # (auto) 0.02 K/uL (0-0.2); Basophils % (auto) 0.5 %; Eosinophils # (auto) 0.11 K/uL (0-0.50); Eosinophils % (auto) 2.7 %; Hematocrit (blood only) 24.7 % (34.1-44.9); Hemoglobin 8.4 g/dl (12.0-16.0); Immature Granulocytes # (auto) 0.02 K/uL (0.00-0.02); Immature Granulocytes % (auto) 0.5 %; Lymphocytes # (auto) 1.01 K/uL (1.2-3.4); Lymphocytes % (auto) 25.1 %; Mean Platelet Volume 11.2 fL (9.4-12.3); Monocytes # (auto) 0.42 K/uL (0.24-0.82); Monocytes % (auto) 10.4 %; Neutrophils # (auto) 2.45 K/uL (1.4-6.5); Neutrophils % (auto) 60.8 %; Platelet Count 86 K/uL (130-400); White Blood Count 4.03 K/ul (4.8-10.8)
[2022-07-03 06:40] LABS: Mean Corpuscular Hemoglobin 28.7 pg (25.0-34.0); Mean Corpuscular Volume 84.3 fL (80.0-100.0); RDW Coefficient of Variation 13.5 % (11.5-14.5); RDW Standard Deviation 41.8 fL (36.4-46.3); Red Blood Count 2.93 M/uL (3.93-5.22)
[2022-07-03] MEDS: Ipratropium HFA Inhaler (Combivent Respimat P&T Subs) INH SCH ×2 (07:18→20:17)
[2022-07-03] MEDS: Albuterol HFA 8 GM Inhaler (Combivent Respimat P&T Subs) INH SCH ×2 (07:19→20:17)
[2022-07-03 07:34] LABS: BUN Creatinine Ratio 5.8 (10-20); Calcium 8.4 mg/dl (8.5-10.1); Creatinine Clr Calc Pharmacy 43.6 ml/min; Est GFR (African American) 49.8 ml/min; Est GFR (Non-African American) 42.9 ml/min; Potassium 3.8 mmol/L (3.5-5.1)
[2022-07-03 07:42] LABS: Phosphorus 4.4 mg/dl (2.5-4.9)
[2022-07-03] MEDS: POT PHOSPHATE MONOBASIC W/ SOD TAB PO SCH ×4 (08:55→20:40)
[2022-07-03] MEDS: LACTULOSE SYRUP 20 GM/30 ML UDC PO SCH (08:55)
[2022-07-03] MEDS: DICLOFENAC SOD 1% GEL 100 GM TUBE EXT SCH ×3 (08:55→20:39)
[2022-07-03] MEDS: FLUTICASONE PROPIONATE NA SPR 16 GM BTL NAE SCH ×2 (08:55→20:41)
[2022-07-03] MEDS: ASCORBIC ACID 500 MG TAB PO SCH (08:56)
[2022-07-03] MEDS: CHOLECALCIFEROL 1,000 UNITS 25 MCG TAB PO SCH (08:56)
[2022-07-03] MEDS: MAGNESIUM OXIDE 400 MG TAB PO SCH ×2 (08:56→20:40)
[2022-07-03] MEDS: THIAMINE HCL 100 MG TAB PO SCH (08:56)
[2022-07-03] MEDS: PANTOprazole 40 MG TAB PO SCH ×2 (08:56→20:39)
[2022-07-03] MEDS: LORATADINE 10 MG TAB PO SCH (08:56)
[2022-07-03] MEDS: MULTIVITAMIN TAB PO SCH (08:56)
[2022-07-03] MEDS: UMECLIDINIUM BROMIDE 62.5MCG/BLISTER 7 PUFFS/INHALER INH SCH (08:57)
[2022-07-03] MEDS: LIDOCAINE 5% 1 PATCH TD SCH (08:58)
[2022-07-03] MEDS: NICOTINE 14 MG/24 HR PATCH TD SCH (08:58)
[2022-07-03] MEDS: FLUTICASONE/VILANTEROL 200/25MCG 14 PUFFS/INHALER INH SCH (08:58)
[2022-07-03 09:00] LABS: Magnesium 1.8 mg/dl (1.7-2.4)
[2022-07-03] MEDS: AMPHETAMINE ASP/SULF/DEXTRAMPH 5 MG TAB PO SCH ×2 (09:11→16:54)
[2022-07-03] MEDS ORDERED: IOVERSOL 350 MG 100mL Prefilled Syringe IV ONE (15:22)
--- NOTE | 2022-07-03 16:13 | CT Scan Report ---
ABDOMEN AND PELVIS CT WITH IV CONTRAST CT DOSE: 345.53 mGy.cm HISTORY: Acute right lower quadrant abdominal pain R/O Appendicitis TECHNIQUE: Multiaxial CT images of the abdomen and pelvis were performed following the IV administrat ion of 93 cc of Optiray, A dose lowering technique was utilized adhering to the principles of ALARA. COMPARISON STUDY: CT abdomen and pelvis 06/30/2022 FINDINGS: Trace pleural effusions with dependent bibasilar atelectasis. No pneumatosis or pneumoperitoneum. Spleen is enlarged measuring 13.4 cm in length. Unremarkable panc reas with a few punctate calcifications noted within the uncinate process. The adrenal glands are wit hin normal limits. Contracted gallbladder. Mild marginal nodularity of the liver suggestive of cirrho sis. . Liver is diffusely heterogeneous. No hepatic mass identified. Unremarkable kidneys, uterus and adnexa. Mild nonspecific urinary bladder wall thickening. Aorta and IVC are unremarkable. Abdominal varicosities. There is no lymphadenopathy identified. Distended debri s-filled stomach suggestive of recent meal. Small volume of abdominal pelvic ascites with diffuse mes enteric edema is new from prior. Moderate to extensive colonic fecal retention as progressed. Noninfl nory appendix. Mild colonic diverticulosis. Mild wall thickening of the cecum and ascending colon is new from the prior study. Tiny fat filled umbilical hernia. The previously questioned subtle fracture s of the posterior right ninth and 10th ribs are not appreciated. IMPRESSION: 1. Cirrhosis with splenomegaly and abdominal varicosities compatible with portal venous hypertension redemonstrated. There is new small volume of abdominal pelvic ascites with mesenteric edema. 2. Noninflamed appendix. 3. Wall thickening of the cecum and proximal ascending colon is new from the prior exam and may be se condary to portal colopathy. An infectious or inflammatory colitis could appear similarly. 4. Moderate to extensive fecal retention. 5. Trace pleural effusions. ACT 112: Negative or not required by law. The above report was generated using voice recognition software. It may contain grammatical, syntax o r spelling errors. Electronically signed by: Bud Madera M.D. 07/03/2022 4:12 PM
--- NOTE | 2022-07-03 16:17 | Hospitalist Progress Note ---
Date of Service July 03, 2022 Assessment & Plan (1) Fall: (2) Closed rib fracture: (3) VAN (acute kidney injury): (4) Alcohol intoxication: (5) Alcohol use disorder: (6) Generalized anxiety disorder: (7) Cirrhosis: (8) Depression: (9) ADD (attention deficit disorder): (10) Asthma: Plan 37yo F with a PMH of alcoholic cirrhosis with ascites, continued severe alcohol dependence, ADD, depression, anxiety and other medical problems listed below who presents after fall at home on the morning of the day of arrival. She is being managed for the following: Fall Rib fractures-posterior right ninth and 10th ribs without any pneumothorax and or hematoma Patient came in with complaint of fall in the shower, patient relapsed on drinking, patient hit her head/forehead/back/right side of her body. Head CT, cervical spine, thoracic, lumbar, abd/pelvis, chest CTs performed - evidence of acute nondisplaced fractures involving the posterior medial aspects of the right ninth and 10th ribs. Otherwise no traumatic injuries noted Lidocaine patch, ice, Tylenol for rib fractures. Can use Voltaren gel. Has been getting intravenous Dilaudid and also oral oxycodone on top of above medications Pain is not yet reasonably controlled-Dilaudid frequency has been increased Pain seems to be reasonably controlled with current medication regimen Right lower quadrant pain Associated nausea and feverish Locally tender Will have CT of the abdomen with contrast to rule out appendicitis-Ruled out Acute renal failure Creatinine elevated at 2.57 (baseline ~0.8) Poor oral intake given prolonged N/V and still taking Lasix and spironolactone for cirrhosis Holding diuretics for now, IV fluids, creatinine trending down. Avoid nephrotoxic agents, lasix and aldactone held. Creatinine has been improving and as of this morning is 1.73 Kidney function is improved further We will need to have cautious amount of intravenous fluid due to use of contrast media Alcoholic cirrhosis Intractable nausea/vomiting Patient with history of cirrhosis, following with aMrly VILLAFUERTE Left 2-month inpatient alcohol treatment facility 4 days ago [employer] and resumed drinking the day before arrival Worsened nausea and vomiting with poor appetite while at treatment center, reports some hematemesis but none for the past week GI evaluated, no indication for scope for now, advance diet as tolerated. Patient reports improving nausea and vomiting, and is tolerating diet. Continue with PPI, antiemetics as needed Still has nausea likely secondary to gastritis Continued severe alcoholic dependence Endorsing last drinks on the morning of arrival before 0900. Ethyl alcohol level 253 at admission. Placed on alcohol withdrawal protocol. Patient advised against any use of alcoholic drinks in future. CM to assist w/ outpatient resources regarding alcoholic cessation help. ADD Continue Adderall History of tobacco use Continue nicotine patch Asthma Stable; continue home inhalers DVT Ppx: SCDs Low platelet with risk of bleeding Increase ambulation Code status: FULL PCP: Ritu Dispo: Admitted to PCU Admission and Anticipated Discharge Date Admission Date: June 30, 2022 Subjective 07/02/2022 The patient was seen and examined in telemetry unit She has been complaining of chest pain with inspiration and nausea Denies any other symptoms of palpitation, shortness of breath, vomiting and or diarrhea She does not have any tremors 07/03/2022 The patient was seen and examined in telemetry unit She has been complaining of abdominal pain right lower quadrant with feverish since last night with nausea but no vomiting Remains generally weak but does not have any palpitation or tremors Rib pain seems to be controlled Review of Systems Review of Systems: All systems reviewed and are unremarkable except as noted below Physical Exam Physical Exam: Lying in bed with moderate distress due to right lower quadrant pain Constitutional: well developed, well nourished and + ill appearing Eyes: PERRL, conjunctivae normal, anicteric sclerae ENMT: external ear and nose normal, oropharynx normal Neck: trachea midline, no thyromegaly Respiratory: no respiratory distress Auscultation: lungs clear to auscultation bilaterally Cardiovascular: Rate/Rhythm: regular rate and regular rhythm; not tachycardic Heart Sounds: normal S1 and normal S2; no murmur Extremities: no edema Gastrointestinal (Abdomen): Inspection/Auscultation: abdomen normal to inspection and normal bowel sounds Percussion/Palpation: + abdomen tender (Right lower quadrant) and abdomen soft; no guarding Results & Data Results & Data ([facility]) Vital Signs (Past 12 Hours) Vital Signs Temp Pulse Resp BP Pulse Ox O2 Del Method 07/03/22 11:50 36.8 C 89 20 106/74 96 Room Air 07/03/22 08:08 36.6 C 95 H 20 115/75 95 Room Air 07/03/22 07:19 88 14 96 Room Air Laboratory Results Short CBC 07/03/22 Range/Units 05:14 WBC 4.03 L (4.8-10.8) K/ul Hgb 8.4 L (12.0-16.0) g/dl Hct 24.7 L (34.1-44.9) % Plt Count 86 L (130-400) K/uL BMP 07/03/22 05:14 Sodium 137 Potassium 3.8 Chloride 110 H Carbon Dioxide 20 L BUN 9 Creatinine 1.55 H Glucose 125 H Calcium 8.4 L Medications Administered Current Inpatient Medications Acetaminophen (Acetaminophen 500 Mg Tab) 500 mg PO Q6H PRN PRN Reason: pain/fever Stop: 07/31/22 19:39 Albuterol (Albuterol Hfa 8 Gm Inhaler) 2 puffs INH BID PRN PRN Reason: Shortness Of Breath Stop: 07/30/22 17:53 Albuterol (Albuterol Hfa 8 Gm Inhaler (Combivent Respimat P&T Subs)) 1 puffs INH BIDR [facility] Stop: 07/30/22 18:59 Last Admin: 07/03/22 07:19 Dose: 1 puffs Amphetamine/Dextroamphetamine (Amphetamine Asp/Sulf/Dextramph 5 Mg Tab) 5 mg PO BID [facility] Stop: 07/14/22 20:59 Last Admin: 07/03/22 09:11 Dose: 5 mg Ascorbic Acid (Ascorbic Acid 500 Mg Tab) 500 mg PO QAM [facility] Stop: 07/31/22 08:59 Last Admin: 07/03/22 08:56 Dose: 500 mg Diclofenac Sodium (Diclofenac Sod 1% Gel 100 Gm Tube) 4 gm EXT TID [facility]; Protocol Stop: 07/31/22 20:59 Last Admin: 07/03/22 14:04 Dose: 4 gm Fluticasone Propionate (Fluticasone Propionate Na Spr 16 Gm Btl) 2 sprays LINETTE BID [facility] Stop: 07/30/22 20:59 Last Admin: 07/03/22 08:55 Dose: Not Given Fluticasone/Vilanterol (Fluticasone/Vilanterol 200/25mcg 14 Puffs/Inhaler) 1 puffs INH DAILY [facility] Stop: 07/31/22 08:59 Last Admin: 07/03/22 08:58 Dose: 1 puffs Gabapentin (Gabapentin 100 Mg Cap) 200 mg PO Q24H [facility] Stop: 07/03/22 18:46 Heparin Sodium (Porcine) (Heparin 100 Unit/Ml 5ml Flush) 5 ml FLUSH PRN PRN PRN Reason: Flush Stop: 08/01/22 00:52 Hydromorphone HCl (Hydromorphone Inj 0.5 Mg/0.5 Ml Syr) 0.25 mg IV Q4H PRN PRN Reason: Pain not relieved by oral meds Stop: 07/15/22 21:09 Last Admin: 07/03/22 13:04 Dose: 0.25 mg Hydroxyzine HCl (Hydroxyzine Hcl 25 Mg Tab) 25 mg PO TID PRN PRN Reason: Anxiety Stop: 07/30/22 17:53 Last Admin: 07/03/22 14:37 Dose: 25 mg Ipratropium [place] (Ipratropium Hfa Inhaler (Combivent Respimat P&T Subs)) 1 puffs INH BIDR [facility] Stop: 07/30/22 18:59 Last Admin: 07/03/22 07:18 Dose: 1 puffs Lactulose (Lactulose Syrup 20 Gm/30 Ml Udc) 20 gm PO QAM [facility] Stop: 07/31/22 08:59 Last Admin: 07/03/22 08:55 Dose: 20 gm Lidocaine (Lidocaine 5% 1 Patch) 1 patch TD QAM [facility] Stop: 07/30/22 16:29 Last Admin: 07/03/22 08:58 Dose: 1 patch Loratadine (Loratadine 10 Mg Tab) 10 mg PO QAM [facility] Stop: 07/31/22 08:59 Last Admin: 07/03/22 08:56 Dose: 10 mg Lorazepam (Lorazepam 1 Mg Tab) 1 mg PO UD PRN; Protocol PRN Reason: EtOH Withdrawal AWSS Score 6,7 Stop: 07/30/22 16:54 Lorazepam (Lorazepam 1 Mg Tab) 2 mg PO UD PRN; Protocol PRN Reason: EtOH Withdrawal AWSS Score 8,9 Stop: 07/30/22 16:54 Magnesium Oxide (Magnesium Oxide 400 Mg Tab) 400 mg PO BID [facility] Stop: 07/30/22 20:59 Last Admin: 07/03/22 08:56 Dose: 400 mg Melatonin (Melatonin 3 Mg Tab) 3 mg PO HS PRN PRN Reason: Sleep Stop: 07/31/22 23:04 Last Admin: 07/03/22 03:59 Dose: 3 mg Miscellaneous (Remove Lidoderm Patch) 1 each N/A DAILY@2100 [facility] Stop: 07/30/22 20:59 Last Admin: 07/02/22 20:22 Dose: 1 each Miscellaneous (Remove Nicoderm Patch) 1 each N/A QAM [facility] Stop: 07/31/22 08:59 Last Admin: 07/03/22 09:04 Dose: 1 each Montelukast Sodium (Montelukast Sodium 10 Mg Tablet) 10 mg PO HS [facility] Stop: 07/30/22 20:59 Last Admin: 07/02/22 20:21 Dose: 10 mg Multivitamins (Multivitamin Tab) 1 tab PO QAM [facility] Stop: 07/31/22 08:59 Last Admin: 07/03/22 08:56 Dose: 1 tab Nicotine (Nicotine 14 Mg/24 Hr Patch) 14 mg TD QAM [facility] Stop: 07/31/22 08:59 Last Admin: 07/03/22 08:58 Dose: 14 mg Ondansetron HCl (Ondansetron Inj 2 Mg/Ml 2 Ml Vial) 4 mg IV Q6H PRN PRN Reason: Nausea Stop: 07/30/22 19:51 Last Admin: 07/02/22 09:10 Dose: 4 mg Oxycodone HCl (Oxycodone Hcl Ir 5 Mg Tab (Immediate Release)) 5 mg PO QID PRN PRN Reason: Pain Stop: 07/14/22 20:41 Last Admin: 07/03/22 14:37 Dose: 5 mg Pantoprazole Sodium (Pantoprazole 40 Mg Tab) 40 mg PO BID [facility] Stop: 07/31/22 20:59 Last Admin: 07/03/22 08:56 Dose: 40 mg Polyethylene Glycol (Polyethylene (Miralax) 17 Gm Pack) 17 gm PO DAILY PRN PRN Reason: Constipation Stop: 07/30/22 19:51 Potassium Phosphate (Pot Phosphate Monobasic W/ Sod Tab) 2 tab PO QID [facility] Stop: 07/30/22 20:59 Last Admin: 07/03/22 13:05 Dose: 2 tab Thiamine HCl (Thiamine Hcl 100 Mg Tab) 100 mg PO QAM [facility] Stop: 07/31/22 08:59 Last Admin: 07/03/22 08:56 Dose: 100 mg Umeclidinium [place] (Umeclidinium [place] 62.5mcg/Blister 7 Puffs/Inhaler) 1 puffs INH QAM [facility] Stop: 07/31/22 08:59 Last Admin: 07/03/22 08:57 Dose: 1 puffs Vitamin D (Cholecalciferol 1,000 Units 25 Mcg Tab) 2,000 units PO QAM [facility] Stop: 07/31/22 08:59 Last Admin: 07/03/22 08:56 Dose: 2,000 units (1) Cirrhosis Ascites presence: with ascites Hepatic cirrhosis type: alcoholic cirrhosis Qualified Code(s): K70.31 - Alcoholic cirrhosis of liver with ascites
[2022-07-03] MEDS ORDERED: NSS + 20MEQ KCL 20 MEQ/1,000 ML BAG IV SCH (17:00)
[2022-07-03] MEDS ORDERED: GABAPENTIN 100 MG CAP PO SCH (18:45)
[2022-07-03 18:58] LABS: Hematocrit (blood only) 24.1 % (34.1-44.9); Hemoglobin 8.3 g/dl (12.0-16.0)
[2022-07-03] MEDS: MONTELUKAST SODIUM 10 MG TABLET PO SCH (20:39)
[2022-07-04 01:00] LABS: Hematocrit (blood only) 23.7 % (34.1-44.9); Hemoglobin 8.1 g/dl (12.0-16.0)
[2022-07-04] MEDS ORDERED: HYDROmorphone INJ 0.5 MG/0.5 ML SYR IV STA (01:15)
[2022-07-04] MEDS: oxyCODONE HCL IR 5 MG TAB (IMMEDIATE RELEASE) PO PRN ×4 (03:05→23:09)
[2022-07-04] MEDS: HYDROmorphone INJ 0.5 MG/0.5 ML SYR IV PRN ×5 (03:42→19:55)
[2022-07-04 06:17] LABS: Basophils # (auto) 0.02 K/uL (0-0.2); Basophils % (auto) 0.5 %; Eosinophils # (auto) 0.12 K/uL (0-0.50); Eosinophils % (auto) 3.2 %; Hematocrit (blood only) 23.4 % (34.1-44.9); Immature Granulocytes # (auto) 0.01 K/uL (0.00-0.02); Immature Granulocytes % (auto) 0.3 %; Lymphocytes # (auto) 0.86 K/uL (1.2-3.4); Mean Platelet Volume 10.3 fL (9.4-12.3); Monocytes # (auto) 0.36 K/uL (0.24-0.82); Monocytes % (auto) 9.6 %; Neutrophils # (auto) 2.37 K/uL (1.4-6.5); Neutrophils % (auto) 63.4 %; Platelet Count 82 K/uL (130-400); White Blood Count 3.74 K/ul (4.8-10.8)
[2022-07-04 06:42] LABS: Mean Corpuscular Hemoglobin 29.4 pg (25.0-34.0); Mean Corpuscular Hgb Conc 34.2 g/dL (32.0-36.0); RDW Coefficient of Variation 13.4 % (11.5-14.5); Red Blood Count 2.72 M/uL (3.93-5.22)
[2022-07-04 06:50] LABS: BUN Creatinine Ratio 5.3 (10-20); Calcium 8.2 mg/dl (8.5-10.1); Creatinine Clr Calc Pharmacy 51.9 ml/min; Est GFR (Non-African American) 52.6 ml/min; Magnesium 1.5 mg/dl (1.7-2.4); Phosphorus 4.2 mg/dl (2.5-4.9); Potassium 4.2 mmol/L (3.5-5.1)
[2022-07-04] MEDS: hydrOXYzine HCl 25 MG TAB PO PRN ×3 (07:09→23:09)
[2022-07-04] MEDS: Ipratropium HFA Inhaler (Combivent Respimat P&T Subs) INH SCH ×2 (07:24→19:41)
[2022-07-04] MEDS: Albuterol HFA 8 GM Inhaler (Combivent Respimat P&T Subs) INH SCH ×2 (07:24→19:42)
[2022-07-04] MEDS: PANTOprazole 40 MG TAB PO SCH ×2 (08:09→19:53)
[2022-07-04] MEDS: LACTULOSE SYRUP 20 GM/30 ML UDC PO SCH (08:17)
[2022-07-04] MEDS: NICOTINE 14 MG/24 HR PATCH TD SCH (08:17)
[2022-07-04] MEDS: POT PHOSPHATE MONOBASIC W/ SOD TAB PO SCH ×4 (08:17→19:53)
[2022-07-04] MEDS: FLUTICASONE PROPIONATE NA SPR 16 GM BTL NAE SCH ×2 (08:17→19:52)
[2022-07-04] MEDS: ASCORBIC ACID 500 MG TAB PO SCH (08:17)
[2022-07-04] MEDS: MAGNESIUM OXIDE 400 MG TAB PO SCH ×2 (08:17→19:52)
[2022-07-04] MEDS: THIAMINE HCL 100 MG TAB PO SCH (08:17)
[2022-07-04] MEDS: LORATADINE 10 MG TAB PO SCH (08:17)
[2022-07-04] MEDS: MULTIVITAMIN TAB PO SCH (08:17)
[2022-07-04] MEDS: CHOLECALCIFEROL 1,000 UNITS 25 MCG TAB PO SCH (08:17)
[2022-07-04] MEDS: DICLOFENAC SOD 1% GEL 100 GM TUBE EXT SCH ×3 (08:18→19:52)
[2022-07-04] MEDS: LIDOCAINE 5% 1 PATCH TD SCH (08:19)
[2022-07-04] MEDS: AMPHETAMINE ASP/SULF/DEXTRAMPH 5 MG TAB PO SCH ×2 (08:22→19:52)
[2022-07-04] MEDS: FLUTICASONE/VILANTEROL 200/25MCG 14 PUFFS/INHALER INH SCH (08:24)
[2022-07-04] MEDS: UMECLIDINIUM BROMIDE 62.5MCG/BLISTER 7 PUFFS/INHALER INH SCH (08:25)
[2022-07-04] MEDS: ONDANSETRON INJ 2 MG/ML 2 ML VIAL IV PRN (13:43)
--- NOTE | 2022-07-04 15:27 | Hospitalist Progress Note ---
Date of Service July 04, 2022 Assessment & Plan (1) Fall: (2) Closed rib fracture: (3) VAN (acute kidney injury): (4) Alcohol intoxication: (5) Alcohol use disorder: (6) Generalized anxiety disorder: (7) Cirrhosis: (8) Depression: (9) ADD (attention deficit disorder): (10) Asthma: Plan 37yo F with a PMH of alcoholic cirrhosis with ascites, continued severe alcohol dependence, ADD, depression, anxiety and other medical problems listed below who presents after fall at home on the morning of the day of arrival. She is being managed for the following: Fall Rib fractures-posterior right ninth and 10th ribs without any pneumothorax and or hematoma Patient came in with complaint of fall in the shower, patient relapsed on drinking, patient hit her head/forehead/back/right side of her body. Head CT, cervical spine, thoracic, lumbar, abd/pelvis, chest CTs performed - evidence of acute nondisplaced fractures involving the posterior medial aspects of the right ninth and 10th ribs. Otherwise no traumatic injuries noted Lidocaine patch, ice, Tylenol for rib fractures. Can use Voltaren gel. Has been getting intravenous Dilaudid and also oral oxycodone on top of above medications Pain is not yet reasonably controlled-Dilaudid frequency has been increased Pain is worse and Dilaudid doses have been increased We will get PT and OT evaluation Right lower quadrant pain Associated nausea and feverish Locally tender Will have CT of the abdomen with contrast to rule out appendicitis-Ruled out Minimal abdominal pain and no more hematochezia Acute renal failure Creatinine elevated at 2.57 (baseline ~0.8) Poor oral intake given prolonged N/V and still taking Lasix and spironolactone for cirrhosis Holding diuretics for now, IV fluids, creatinine trending down. Avoid nephrotoxic agents, lasix and aldactone held. Creatinine has been improving and as of this morning is 1.73 Kidney function is improved further We will need to have cautious amount of intravenous fluid due to use of contrast media Kidney function is improved Alcoholic cirrhosis Intractable nausea/vomiting Patient with history of cirrhosis, following with [facility] Left 2-month inpatient alcohol treatment facility 4 days ago [employer] and resumed drinking the day before arrival Worsened nausea and vomiting with poor appetite while at treatment center, reports some hematemesis but none for the past week GI evaluated, no indication for scope for now, advance diet as tolerated. Patient reports improving nausea and vomiting, and is tolerating diet. Continue with PPI, antiemetics as needed Still has nausea likely secondary to gastritis Continued severe alcoholic dependence Endorsing last drinks on the morning of arrival before 0900. Ethyl alcohol level 253 at admission. Placed on alcohol withdrawal protocol. Patient advised against any use of alcoholic drinks in future. CM to assist w/ outpatient resources regarding alcoholic cessation help. ADD Continue Adderall History of tobacco use Continue nicotine patch Asthma Stable; continue home inhalers DVT Ppx: SCDs Low platelet with risk of bleeding Increase ambulation Code status: FULL PCP: Riut Dispo: Admitted to PCU Admission and Anticipated Discharge Date Admission Date: June 30, 2022 Subjective 07/02/2022 The patient was seen and examined in telemetry unit She has been complaining of chest pain with inspiration and nausea Denies any other symptoms of palpitation, shortness of breath, vomiting and or diarrhea She does not have any tremors 07/03/2022 The patient was seen and examined in telemetry unit She has been complaining of abdominal pain right lower quadrant with feverish since last night with nausea but no vomiting Remains generally weak but does not have any palpitation or tremors Rib pain seems to be controlled 07/04/2022 The patient was seen and examined in telemetry unit She complains to have more pain in the ribs No more blood in the stool Advised to have more physical therapy Review of Systems Review of Systems: All systems reviewed and are unremarkable except as noted below Physical Exam Physical Exam: Lying in bed with moderate distress due to right lower quadrant pain Constitutional: well developed, well nourished and + ill appearing Eyes: PERRL, conjunctivae normal, anicteric sclerae ENMT: external ear and nose normal, oropharynx normal Neck: trachea midline, no thyromegaly Respiratory: no respiratory distress Auscultation: lungs clear to auscultation bilaterally Cardiovascular: Rate/Rhythm: regular rate and regular rhythm; not tachycardic Heart Sounds: normal S1 and normal S2; no murmur Extremities: no edema Gastrointestinal (Abdomen): Inspection/Auscultation: abdomen normal to inspection and normal bowel sounds Percussion/Palpation: + abdomen tender (Right lower quadrant) and abdomen soft; no guarding Musculoskeletal: No acute arthritis in any joint Neurologic: Alert, awake and oriented x3. No focal sensory or no motor deficit appreciated Results & Data Results & Data ([facility]) Vital Signs (Past 12 Hours) Vital Signs Temp Pulse Pulse Resp BP Pulse Ox O2 Del Method 07/04/22 12:05 36.9 C 85 16 109/71 95 Room Air 07/04/22 08:00 90 07/04/22 07:36 36.8 C 83 16 120/75 96 Room Air 07/04/22 07:24 86 16 97 Room Air Laboratory Results Short CBC 07/03/22 07/04/22 07/04/22 Range/Units 18:50 00:28 05:33 WBC 3.74 L (4.8-10.8) K/ul Hgb 8.3 L 8.1 L 8.0 L (12.0-16.0) g/dl Hct 24.1 L 23.7 L 23.4 L (34.1-44.9) % Plt Count 82 L (130-400) K/uL BMP 07/04/22 05:33 Sodium 137 Potassium 4.2 Chloride 111 H Carbon Dioxide 20 L BUN 7 Creatinine 1.31 H Glucose 73 Calcium 8.2 L Medications Administered Current Inpatient Medications Acetaminophen (Acetaminophen 500 Mg Tab) 500 mg PO Q6H PRN PRN Reason: pain/fever Stop: 07/31/22 19:39 Albuterol (Albuterol Hfa 8 Gm Inhaler) 2 puffs INH BID PRN PRN Reason: Shortness Of Breath Stop: 07/30/22 17:53 Albuterol (Albuterol Hfa 8 Gm Inhaler (Combivent Respimat P&T Subs)) 1 puffs INH BIDR [facility] Stop: 07/30/22 18:59 Last Admin: 07/04/22 07:24 Dose: 1 puffs Amphetamine/Dextroamphetamine (Amphetamine Asp/Sulf/Dextramph 5 Mg Tab) 5 mg PO BID [facility] Stop: 07/14/22 20:59 Last Admin: 07/04/22 08:22 Dose: 5 mg Ascorbic Acid (Ascorbic Acid 500 Mg Tab) 500 mg PO QAM [facility] Stop: 07/31/22 08:59 Last Admin: 07/04/22 08:17 Dose: 500 mg Diclofenac Sodium (Diclofenac Sod 1% Gel 100 Gm Tube) 4 gm EXT TID [facility]; Protocol Stop: 07/31/22 20:59 Last Admin: 07/04/22 08:18 Dose: 4 gm Fluticasone Propionate (Fluticasone Propionate Na Spr 16 Gm Btl) 2 sprays LINETTE BID [facility] Stop: 07/30/22 20:59 Last Admin: 07/04/22 08:17 Dose: 2 sprays Fluticasone/Vilanterol (Fluticasone/Vilanterol 200/25mcg 14 Puffs/Inhaler) 1 pu ffs INH DAILY [facility] Stop: 07/31/22 08:59 Last Admin: 07/04/22 08:24 Dose: 1 puffs Heparin Sodium (Porcine) (Heparin 100 Unit/Ml 5ml Flush) 5 ml FLUSH PRN PRN PRN Reason: Flush Stop: 08/01/22 00:52 Hydromorphone HCl (Hydromorphone Inj 0.5 Mg/0.5 Ml Syr) 0.5 mg IV Q4H PRN PRN Reason: Pain not relieved by oral meds Stop: 07/15/22 21:09 Last Admin: 07/04/22 12:03 Dose: 0.5 mg Hydroxyzine HCl (Hydroxyzine Hcl 25 Mg Tab) 25 mg PO TID PRN PRN Reason: Anxiety Stop: 07/30/22 17:53 Last Admin: 07/04/22 13:19 Dose: 25 mg Ipratropium [place] (Ipratropium Hfa Inhaler (Combivent Respimat P&T Subs)) 1 puffs INH BIDR [facility] Stop: 07/30/22 18:59 Last Admin: 07/04/22 07:24 Dose: 1 puffs Lactulose (Lactulose Syrup 20 Gm/30 Ml Udc) 20 gm PO QAM [facility] Stop: 07/31/22 08:59 Last Admin: 07/04/22 08:17 Dose: 20 gm Lidocaine (Lidocaine 5% 1 Patch) 1 patch TD QAM [facility] Stop: 07/30/22 16:29 Last Admin: 07/04/22 08:19 Dose: 1 patch Loratadine (Loratadine 10 Mg Tab) 10 mg PO QAM [facility] Stop: 07/31/22 08:59 Last Admin: 07/04/22 08:17 Dose: 10 mg Lorazepam (Lorazepam 1 Mg Tab) 1 mg PO UD PRN; Protocol PRN Reason: EtOH Withdrawal AWSS Score 6,7 Stop: 07/30/22 16:54 Lorazepam (Lorazepam 1 Mg Tab) 2 mg PO UD PRN; Protocol PRN Reason: EtOH Withdrawal AWSS Score 8,9 Stop: 07/30/22 16:54 Magnesium Oxide (Magnesium Oxide 400 Mg Tab) 400 mg PO BID [facility] Stop: 07/30/22 20:59 Last Admin: 07/04/22 08:17 Dose: 400 mg Melatonin (Melatonin 3 Mg Tab) 3 mg PO HS PRN PRN Reason: Sleep Stop: 07/31/22 23:04 Last Admin: 07/03/22 20:43 Dose: 3 mg Miscellaneous (Remove Lidoderm Patch) 1 each N/A DAILY@2100 [facility] Stop: 07/30/22 20:59 Last Admin: 07/03/22 20:41 Dose: 1 each Miscellaneous (Remove Nicoderm Patch) 1 each N/A QAM [facility] Stop: 07/31/22 08:59 Last Admin: 07/04/22 10:23 Dose: 1 each Montelukast Sodium (Montelukast Sodium 10 Mg Tablet) 10 mg PO HS [facility] Stop: 07/30/22 20:59 Last Admin: 07/03/22 20:39 Dose: 10 mg Multivitamins (Multivitamin Tab) 1 tab PO QAM [facility] Stop: 07/31/22 08:59 Last Admin: 07/04/22 08:17 Dose: 1 tab Nicotine (Nicotine 14 Mg/24 Hr Patch) 14 mg TD QAM [facility] Stop: 07/31/22 08:59 Last Admin: 07/04/22 08:17 Dose: 14 mg Ondansetron HCl (Ondansetron Inj 2 Mg/Ml 2 Ml Vial) 4 mg IV Q6H PRN PRN Reason: Nausea Stop: 07/30/22 19:51 Last Admin: 07/04/22 13:43 Dose: 4 mg Oxycodone HCl (Oxycodone Hcl Ir 5 Mg Tab (Immediate Release)) 5 mg PO QID PRN PRN Reason: Pain Stop: 07/14/22 20:41 Last Admin: 07/04/22 11:13 Dose: 5 mg Pantoprazole Sodium (Pantoprazole 40 Mg Tab) 40 mg PO BID [facility] Stop: 07/31/22 20:59 Last Admin: 07/04/22 08:09 Dose: 40 mg Polyethylene Glycol (Polyethylene (Miralax) 17 Gm Pack) 17 gm PO DAILY PRN PRN Reason: Constipation Stop: 07/30/22 19:51 Potassium Phosphate (Pot Phosphate Monobasic W/ Sod Tab) 2 tab PO QID [facility] Stop: 07/30/22 20:59 Last Admin: 07/04/22 12:04 Dose: 2 tab Thiamine HCl (Thiamine Hcl 100 Mg Tab) 100 mg PO QAM [facility] Stop: 07/31/22 08:59 Last Admin: 07/04/22 08:17 Dose: 100 mg Umeclidinium [place] (Umeclidinium [place] 62.5mcg/Blister 7 Puffs/Inhaler) 1 puffs [facility]H [facility] [place] Stop: 07/31/22 08:59 Last Admin: 07/04/22 08:25 Dose: 1 puffs Vitamin D (Cholecalciferol 1,000 Units 25 Mcg Tab) 2,000 units PO QAM [facility] Stop: 07/31/22 08:59 Last Admin: 07/04/22 08:17 Dose: 2,000 units (1) Cirrhosis Ascites presence: with ascites Hepatic cirrhosis type: alcoholic cirrhosis Qualified Code(s): K70.31 - Alcoholic cirrhosis of liver with ascites
[2022-07-04] MEDS: MONTELUKAST SODIUM 10 MG TABLET PO SCH (19:53)
[2022-07-04] MEDS ORDERED: LORazepam 0.5 MG TAB PO STA (20:59)
[2022-07-04] MEDS: MELATONIN 3 MG TAB PO PRN (23:09)
[2022-07-05] MEDS: HYDROmorphone INJ 0.5 MG/0.5 ML SYR IV PRN ×6 (00:48→22:05)
[2022-07-05] MEDS: oxyCODONE HCL IR 5 MG TAB (IMMEDIATE RELEASE) PO PRN ×3 (05:12→21:09)
[2022-07-05] MEDS: Ipratropium HFA Inhaler (Combivent Respimat P&T Subs) INH SCH ×2 (07:47→19:42)
[2022-07-05] MEDS: Albuterol HFA 8 GM Inhaler (Combivent Respimat P&T Subs) INH SCH ×2 (07:48→19:42)
[2022-07-05] MEDS: hydrOXYzine HCl 25 MG TAB PO PRN ×2 (08:01→21:09)
[2022-07-05] MEDS: LORATADINE 10 MG TAB PO SCH (09:05)
[2022-07-05] MEDS: POT PHOSPHATE MONOBASIC W/ SOD TAB PO SCH ×4 (09:05→20:15)
[2022-07-05] MEDS: NICOTINE 14 MG/24 HR PATCH TD SCH (09:05)
[2022-07-05] MEDS: MAGNESIUM OXIDE 400 MG TAB PO SCH ×2 (09:05→20:16)
[2022-07-05] MEDS: ASCORBIC ACID 500 MG TAB PO SCH (09:05)
[2022-07-05] MEDS: LIDOCAINE 5% 1 PATCH TD SCH (09:05)
[2022-07-05] MEDS: CHOLECALCIFEROL 1,000 UNITS 25 MCG TAB PO SCH (09:05)
[2022-07-05] MEDS: PANTOprazole 40 MG TAB PO SCH ×2 (09:05→20:17)
[2022-07-05] MEDS: MULTIVITAMIN TAB PO SCH (09:05)
[2022-07-05] MEDS: THIAMINE HCL 100 MG TAB PO SCH (09:05)
[2022-07-05] MEDS: LACTULOSE SYRUP 20 GM/30 ML UDC PO SCH (09:06)
[2022-07-05] MEDS: FLUTICASONE/VILANTEROL 200/25MCG 14 PUFFS/INHALER INH SCH (09:06)
[2022-07-05] MEDS: FLUTICASONE PROPIONATE NA SPR 16 GM BTL NAE SCH ×2 (09:06→20:15)
[2022-07-05] MEDS: UMECLIDINIUM BROMIDE 62.5MCG/BLISTER 7 PUFFS/INHALER INH SCH (09:06)
[2022-07-05] MEDS: DICLOFENAC SOD 1% GEL 100 GM TUBE EXT SCH ×3 (09:07→20:15)
[2022-07-05] MEDS: AMPHETAMINE ASP/SULF/DEXTRAMPH 5 MG TAB PO SCH ×2 (09:08→20:15)
--- NOTE | 2022-07-05 13:32 | Hospitalist Progress Note ---
Date of Service July 05, 2022 Assessment & Plan (1) Fall: (2) Closed rib fracture: (3) VAN (acute kidney injury): (4) Alcohol intoxication: (5) Alcohol use disorder: (6) Generalized anxiety disorder: (7) Cirrhosis: (8) Depression: (9) ADD (attention deficit disorder): (10) Asthma: Plan 37yo F with a PMH of alcoholic cirrhosis with ascites, continued severe alcohol dependence, ADD, depression, anxiety and other medical problems listed below who presents after fall at home on the morning of the day of arrival. She is being managed for the following: Fall Rib fractures-posterior right ninth and 10th ribs without any pneumothorax and or hematoma Patient came in with complaint of fall in the shower, patient relapsed on drinking, patient hit her head/forehead/back/right side of her body. Head CT, cervical spine, thoracic, lumbar, abd/pelvis, chest CTs performed - evidence of acute nondisplaced fractures involving the posterior medial aspects of the right ninth and 10th ribs. Otherwise no traumatic injuries noted Lidocaine patch, ice, Tylenol for rib fractures. Can use Voltaren gel. Has been getting intravenous Dilaudid and also oral oxycodone on top of above medications Pain is not yet reasonably controlled-Dilaudid frequency has been increased Pain is worse and Dilaudid doses have been increased We will get PT and OT evaluation Rib pain seems to be controlled Right lower quadrant pain Associated nausea and feverish Locally tender Will have CT of the abdomen with contrast to rule out appendicitis-Ruled out Minimal abdominal pain and no more hematochezia Still has right-sided abdominal pain Will get ultrasound of the abdomen on Thursday Acute renal failure Creatinine elevated at 2.57 (baseline ~0.8) Poor oral intake given prolonged N/V and still taking Lasix and spironolactone for cirrhosis Holding diuretics for now, IV fluids, creatinine trending down. Avoid nephrotoxic agents, lasix and aldactone held. Creatinine has been improving and as of this morning is 1.73 Kidney function is improved further We will need to have cautious amount of intravenous fluid due to use of contrast media Kidney function is improved Alcoholic cirrhosis Intractable nausea/vomiting Patient with history of cirrhosis, [facility] 2-[facility] inpatient alcohol treatment facility 4 days ago [employer] and resumed drinking the day before arrival Worsened nausea and vomiting with poor appetite while at treatment center, reports some hematemesis but none for the past week GI evaluated, no indication for scope for now, advance diet as tolerated. Patient reports improving nausea and vomiting, and is tolerating diet. Continue with PPI, antiemetics as needed Still has nausea likely secondary to gastritis Has has had hematochezia-stopped No coffee-ground vomiting Will monitor CBC Continued severe alcoholic dependence Endorsing last drinks on the morning of arrival before 0900. Ethyl alcohol level 253 at admission. Placed on alcohol withdrawal protocol. Patient advised against any use of alcoholic drinks in future. CM to assist w/ outpatient resources regarding alcoholic cessation help. ADD Continue Adderall History of tobacco use Continue nicotine patch Asthma Stable; continue home inhalers DVT Ppx: SCDs Low platelet with risk of bleeding Increase ambulation Code status: FULL PCP: Ritu Dispo: Admitted to PCU Admission and Anticipated Discharge Date Admission Date: June 30, 2022 Subjective 07/02/2022 The patient was seen and examined in telemetry unit She has been complaining of chest pain with inspiration and nausea Denies any other symptoms of palpitation, shortness of breath, vomiting and or diarrhea She does not have any tremors 07/03/2022 The patient was seen and examined in telemetry unit She has been complaining of abdominal pain right lower quadrant with feverish since last night with nausea but no vomiting Remains generally weak but does not have any palpitation or tremors Rib pain seems to be controlled 07/04/2022 The patient was seen and examined in telemetry unit She complains to have more pain in the ribs No more blood in the stool Advised to have more physical therapy 07/05/2022 The patient was seen and examined in telemetry unit Her pain seems to be controlled but he still has right-sided abdominal pain Minimal nausea but no vomiting No more blood in the stool Review of Systems Review of Systems: All systems reviewed and are unremarkable except as noted below Physical Exam Physical Exam: Lying in bed with moderate distress due to right lower quadrant pain Constitutional: well developed, well nourished and + ill appearing Eyes: PERRL, conjunctivae normal, anicteric sclerae ENMT: external ear and nose normal, oropharynx normal Neck: trachea midline, no thyromegaly Respiratory: no respiratory distress Auscultation: lungs clear to auscultation bilaterally Cardiovascular: Rate/Rhythm: regular rate and regular rhythm; not tachycardic Heart Sounds: normal S1 and normal S2; no murmur Extremities: no edema Gastrointestinal (Abdomen): Inspection/Auscultation: abdomen normal to inspection and normal bowel sounds Percussion/Palpation: + abdomen tender (Right lower quadrant) and abdomen soft; no guarding Musculoskeletal: No acute arthritis in any of the joints Neurologic: normal touch/pain/proprioception and moves all extremities; no focal motor deficits and not confused Lymphatic: no cervical or axillary lymphadenopathy Results & Data Results & Data ([facility]) Vital Signs (Past 12 Hours) Vital Signs Temp Pulse Pulse Resp BP Pulse Ox O2 Del Method 07/05/22 11:52 36.7 C 89 18 121/77 98 Room Air 07/05/22 08:00 88 07/05/22 08:00 Room Air 07/05/22 07:48 96 H 18 96 Room Air 07/05/22 04:00 37.3 C 85 18 114/73 96 Room Air Medications Administered Current Inpatient Medications Acetaminophen (Acetaminophen 500 Mg Tab) 500 mg PO Q6H PRN PRN Reason: pain/fever Stop: 07/31/22 19:39 Albuterol (Albuterol Hfa 8 Gm Inhaler) 2 puffs INH BID PRN PRN Reason: Shortness Of Breath Stop: 07/30/22 17:53 Albuterol (Albuterol Hfa 8 Gm Inhaler (Combivent Respimat P&T Subs)) 1 puffs INH BIDR [facility] Stop: 07/30/22 18:59 Last Admin: 07/05/22 07:48 Dose: 1 puffs Amphetamine/Dextroamphetamine (Amphetamine Asp/Sulf/Dextramph 5 Mg Tab) 5 mg PO BID [facility] Stop: 07/14/22 20:59 Last Admin: 07/05/22 09:08 Dose: 5 mg Ascorbic Acid (Ascorbic Acid 500 Mg Tab) 500 mg PO QAM [facility] Stop: 07/31/22 08:59 Last Admin: 07/05/22 09:05 Dose: 500 mg Diclofenac Sodium (Diclofenac Sod 1% Gel 100 Gm Tube) 4 gm EXT TID [facility]; Protocol Stop: 07/31/22 20:59 Last Admin: 07/05/22 09:07 Dose: 4 gm Fluticasone Propionate (Fluticasone Propionate Na Spr 16 Gm Btl) 2 sprays LINETTE BID [facility] Stop: 07/30/22 20:59 Last Admin: 07/05/22 09:06 Dose: 2 sprays Fluticasone/Vilanterol (Fluticasone/Vilanterol 200/25mcg 14 Puffs/Inhaler) 1 puffs INH DAILY [facility] Stop: 07/31/22 08:59 Last Admin: 07/05/22 09:06 Dose: 1 puffs Heparin Sodium (Porcine) (Heparin 100 Unit/Ml 5ml Flush) 5 ml FLUSH PRN PRN PRN Reason: Flush Stop: 08/01/22 00:52 Hydromorphone HCl (Hydromorphone Inj 0.5 Mg/0.5 Ml Syr) 0.5 mg IV Q4H PRN PRN Reason: Pain not relieved by oral meds Stop: 07/15/22 21:09 Last Admin: 07/05/22 10:14 Dose: 0.5 mg Hydroxyzine HCl (Hydroxyzine Hcl 25 Mg Tab) 25 mg PO TID PRN PRN Reason: Anxiety Stop: 07/30/22 17:53 Last Admin: 07/05/22 08:01 Dose: 25 mg Ipratropium [place] (Ipratropium Hfa Inhaler (Combivent Respimat P&T Subs)) 1 puffs INH BIDR [facility] Stop: 07/30/22 18:59 Last Admin: 07/05/22 07:47 Dose: 1 puffs Lactulose (Lactulose Syrup 20 Gm/30 Ml Udc) 20 gm PO QAM [facility] Stop: 07/31/22 08:59 Last Admin: 07/05/22 09:06 Dose: 20 gm Lidocaine (Lidocaine 5% 1 Patch) [facility] Stop: 07/30/22 16:29 Last Admin: 07/05/22 09:05 Dose: 1 patch Loratadine (Loratadine 10 Mg Tab) 10 mg PO QAM [facility] Stop: 07/31/22 08:59 Last Admin: 07/05/22 09:05 Dose: 10 mg Lorazepam (Lorazepam 1 Mg Tab) 1 mg PO UD PRN; Protocol PRN Reason: EtOH Withdrawal AWSS Score 6,7 Stop: 07/30/22 16:54 Lorazepam (Lorazepam 1 Mg Tab) 2 mg PO UD PRN; Protocol PRN Reason: EtOH Withdrawal AWSS Score 8,9 Stop: 07/30/22 16:54 Magnesium Oxide (Magnesium Oxide 400 Mg Tab) 400 mg PO BID [facility] Stop: 07/30/22 20:59 Last Admin: 07/05/22 09:05 Dose: 400 mg Melatonin (Melatonin 3 Mg Tab) 3 mg PO HS PRN PRN Reason: Sleep Stop: 07/31/22 23:04 Last Admin: 07/04/22 23:09 Dose: 3 mg Miscellaneous (Remove Lidoderm Patch) 1 each N/A DAILY@2100 [facility] Stop: 07/30/22 20:59 Last Admin: 07/04/22 19:53 Dose: 1 each Miscellaneous (Remove Nicoderm Patch) 1 each N/A QAM [facility] Stop: 07/31/22 08:59 Last Admin: 07/05/22 09:06 Dose: 1 each Montelukast Sodium (Montelukast Sodium 10 Mg Tablet) 10 mg PO HS [facility] Stop: 07/30/22 20:59 Last Admin: 07/04/22 19:53 Dose: 10 mg Multivitamins (Multivitamin Tab) 1 tab PO QAM [facility] Stop: 07/31/22 08:59 Last Admin: 07/05/22 09:05 Dose: 1 tab Nicotine (Nicotine 14 Mg/24 Hr Patch) 14 mg TD QAM [facility] Stop: 07/31/22 08:59 Last Admin: 07/05/22 09:05 Dose: 14 mg Ondansetron HCl (Ondansetron Inj 2 Mg/Ml 2 Ml Vial) 4 mg IV Q6H PRN PRN Reason: Nausea Stop: 07/30/22 19:51 Last Admin: 07/04/22 13:43 Dose: 4 mg Oxycodone HCl (Oxycodone Hcl Ir 5 Mg Tab (Immediate Release)) 5 mg PO QID PRN PRN Reason: Pain Stop: 07/14/22 20:41 Last Admin: 07/05/22 05:12 Dose: 5 mg Pantoprazole Sodium (Pantoprazole 40 Mg Tab) 40 mg PO BID [facility] Stop: 07/31/22 20:59 Last Admin: 07/05/22 09:05 Dose: 40 mg Polyethylene Glycol (Polyethylene (Miralax) 17 Gm Pack) 17 gm PO DAILY PRN PRN Reason: Constipation Stop: 07/30/22 19:51 Potassium Phosphate (Pot Phosphate Monobasic W/ Sod Tab) 2 tab PO QID [facility] Stop: 07/30/22 20:59 Last Admin: 07/05/22 09:05 Dose: 2 tab Thiamine HCl (Thiamine Hcl 100 Mg Tab) 100 mg PO QAM [facility] Stop: 07/31/22 08:59 Last Admin: 07/05/22 09:05 Dose: 100 mg Umeclidinium [place] (Umeclidinium [place] 62.5mcg/Blister 7 Puffs/Inhaler) 1 puffs INH [facility] Stop: 07/31/22 08:59 Last Admin: 07/05/22 09:06 Dose: 1 puffs Vitamin D (Cholecalciferol 1,000 Units 25 Mcg Tab) 2,000 units PO [facility] Stop: 07/31/22 08:59 Last Admin: 07/05/22 09:05 Dose: 2,000 units (1) Cirrhosis Ascites presence: with ascites Hepatic cirrhosis type: alcoholic cirrhosis Qualified Code(s): K70.31 - Alcoholic cirrhosis of liver with ascites
[2022-07-05] MEDS: HEPARIN 100 UNIT/ML 5ML FLUSH FLUSH PRN (14:14)
[2022-07-05] MEDS: ONDANSETRON INJ 2 MG/ML 2 ML VIAL IV PRN ×2 (15:16→21:09)
[2022-07-05] MEDS ORDERED: LORazepam 0.5 MG TAB PO STA (19:42)
[2022-07-05] MEDS: MONTELUKAST SODIUM 10 MG TABLET PO SCH (20:16)
[2022-07-05] MEDS: MELATONIN 3 MG TAB PO PRN (22:05)
[2022-07-06] MEDS: HYDROmorphone INJ 0.5 MG/0.5 ML SYR IV PRN ×5 (02:05→20:33)
[2022-07-06] MEDS: oxyCODONE HCL IR 5 MG TAB (IMMEDIATE RELEASE) PO PRN ×4 (04:04→23:18)
[2022-07-06 05:27] LABS: Basophils # (auto) 0.02 K/uL (0-0.2); Basophils % (auto) 0.6 %; Eosinophils # (auto) 0.08 K/uL (0-0.50); Eosinophils % (auto) 2.4 %; Hematocrit (blood only) 23.3 % (34.1-44.9); Hemoglobin 7.8 g/dl (12.0-16.0); Immature Granulocytes # (auto) 0.01 K/uL (0.00-0.02); Immature Granulocytes % (auto) 0.3 %; Lymphocytes % (auto) 21.1 %; Mean Platelet Volume 9.6 fL (9.4-12.3); Monocytes # (auto) 0.31 K/uL (0.24-0.82); Monocytes % (auto) 9.4 %; Neutrophils # (auto) 2.19 K/uL (1.4-6.5); Neutrophils % (auto) 66.2 %; Platelet Count 84 K/uL (130-400); White Blood Count 3.31 K/ul (4.8-10.8)
[2022-07-06 05:58] LABS: Albumin Globulin Ratio 1.2 (0.9-2); Albumin Level 2.9 gm/dl (3.4-5.0); BUN Creatinine Ratio 4.3 (10-20); Bilirubin,Total 2.3 mg/dl (0.2-1.0); Calcium 8.6 mg/dl (8.5-10.1); Creatinine Clr Calc Pharmacy 59.7 ml/min; Est GFR (African American) 69.9 ml/min; Est GFR (Non-African American) 60.3 ml/min; Globulin 2.4 gm/dl (2.5-4.0); Magnesium 1.5 mg/dl (1.7-2.4); Phosphorus 3.7 mg/dl (2.5-4.9); Potassium 3.9 mmol/L (3.5-5.1); Total Protein 5.3 gm/dl (6.0-8.3)
[2022-07-06 06:02] LABS: Mean Corpuscular Hemoglobin 28.9 pg (25.0-34.0); Mean Corpuscular Hgb Conc 33.5 g/dL (32.0-36.0); Mean Corpuscular Volume 86.3 fL (80.0-100.0); RBC Morphology Unremarkable; RDW Coefficient of Variation 13.6 % (11.5-14.5); RDW Standard Deviation 42.4 fL (36.4-46.3)
[2022-07-06] MEDS: Albuterol HFA 8 GM Inhaler (Combivent Respimat P&T Subs) INH SCH ×2 (07:14→19:38)
[2022-07-06] MEDS: Ipratropium HFA Inhaler (Combivent Respimat P&T Subs) INH SCH ×2 (07:15→19:38)
[2022-07-06] MEDS: ASCORBIC ACID 500 MG TAB PO SCH (08:32)
[2022-07-06] MEDS: PANTOprazole 40 MG TAB PO SCH ×2 (08:32→20:36)
[2022-07-06] MEDS: MULTIVITAMIN TAB PO SCH (08:32)
[2022-07-06] MEDS: FLUTICASONE/VILANTEROL 200/25MCG 14 PUFFS/INHALER INH SCH (08:32)
[2022-07-06] MEDS: LACTULOSE SYRUP 20 GM/30 ML UDC PO SCH (08:32)
[2022-07-06] MEDS: MAGNESIUM OXIDE 400 MG TAB PO SCH ×2 (08:32→20:35)
[2022-07-06] MEDS: LIDOCAINE 5% 1 PATCH TD SCH (08:32)
[2022-07-06] MEDS: POT PHOSPHATE MONOBASIC W/ SOD TAB PO SCH ×4 (08:32→20:35)
[2022-07-06] MEDS: CHOLECALCIFEROL 1,000 UNITS 25 MCG TAB PO SCH (08:32)
[2022-07-06] MEDS: THIAMINE HCL 100 MG TAB PO SCH (08:32)
[2022-07-06] MEDS: LORATADINE 10 MG TAB PO SCH (08:32)
[2022-07-06] MEDS: NICOTINE 14 MG/24 HR PATCH TD SCH (08:32)
[2022-07-06] MEDS: UMECLIDINIUM BROMIDE 62.5MCG/BLISTER 7 PUFFS/INHALER INH SCH (08:33)
[2022-07-06] MEDS: FLUTICASONE PROPIONATE NA SPR 16 GM BTL NAE SCH ×2 (08:33→20:34)
[2022-07-06] MEDS: DICLOFENAC SOD 1% GEL 100 GM TUBE EXT SCH ×3 (08:33→20:34)
[2022-07-06] MEDS: AMPHETAMINE ASP/SULF/DEXTRAMPH 5 MG TAB PO SCH ×2 (08:35→20:34)
[2022-07-06 11:49] LABS: Codeine Urine NEGATIVE ng/mL (<50); Hydrocodone Urine NEGATIVE ng/mL (<50); Hydromor Urine NEGATIVE ng/mL (<50); MDA negative; MDEA negative; MDMA (Ecstasy) Urine, Confirm negative; Morphine Urine 465 ng/mL (<50); Norhydrocodone Conf Ur NEGATIVE ng/mL (<50); Noroxycodone Urine NEGATIVE ng/mL (<50); Oxycodone Urine NEGATIVE ng/mL (<50); Oxymorph Urine NEGATIVE ng/mL (<50)
[2022-07-06] MEDS: hydrOXYzine HCl 25 MG TAB PO PRN ×2 (12:19→20:33)
[2022-07-06] MEDS: ONDANSETRON INJ 2 MG/ML 2 ML VIAL IV PRN ×2 (12:19→20:33)
--- NOTE | 2022-07-06 13:41 | Hospitalist Progress Note ---
Date of Service July 06, 2022 Assessment & Plan (1) Fall: (2) Closed rib fracture: (3) VAN (acute kidney injury): (4) Alcohol intoxication: (5) Alcohol use disorder: (6) Generalized anxiety disorder: (7) Cirrhosis: (8) Depression: (9) ADD (attention deficit disorder): (10) Asthma: Plan 37yo F with a PMH of alcoholic cirrhosis with ascites, continued severe alcohol dependence, ADD, depression, anxiety and other medical problems listed below who presents after fall at home on the morning of the day of arrival. She is being managed for the following: Fall Rib fractures-posterior right ninth and 10th ribs without any pneumothorax and or hematoma Patient came in with complaint of fall in the shower, patient relapsed on drinking, patient hit her head/forehead/back/right side of her body. Head CT, cervical spine, thoracic, lumbar, abd/pelvis, chest CTs performed - evidence of acute nondisplaced fractures involving the posterior medial aspects of the right ninth and 10th ribs. Otherwise no traumatic injuries noted Lidocaine patch, ice, Tylenol for rib fractures. Can use Voltaren gel. Has been getting intravenous Dilaudid and also oral oxycodone on top of above medications Pain is not yet reasonably controlled-Dilaudid frequency has been increased Pain is worse and Dilaudid doses have been increased We will get PT and OT evaluation Rib pain seems to be controlled Right lower quadrant pain Associated nausea and feverish Locally tender Will have CT of the abdomen with contrast to rule out appendicitis-Ruled out Minimal abdominal pain and no more hematochezia Still has right-sided abdominal pain Will get ultrasound of the abdomen on Thursday Ultrasound of the abdomen in the morning to rule out any significant ascites Acute renal failure Creatinine elevated at 2.57 (baseline ~0.8) Poor oral intake given prolonged N/V and still taking Lasix and spironolactone for cirrhosis Holding diuretics for now, IV fluids, creatinine trending down. Avoid nephrotoxic agents, lasix and aldactone held. Creatinine has been improving and as of this morning is 1.73 Kidney function is improved further We will need to have cautious amount of intravenous fluid due to use of contrast media Kidney function is improved-renal function has been normalized Alcoholic cirrhosis Intractable nausea/vomiting Patient with history of cirrhosis, following with [facility] Left 2-month inpatient alcohol treatment facility 4 days ago [employer] and resumed drinking the day before arrival Worsened nausea and vomiting with poor appetite while at treatment center, reports some hematemesis but none for the past week GI evaluated, no indication for scope for now, advance diet as tolerated. Patient reports improving nausea and vomiting, and is tolerating diet. Continue with PPI, antiemetics as needed Still has nausea likely secondary to gastritis Has has had hematochezia-stopped No coffee-ground vomiting Will monitor CBC-hemoglobin is dropped to 7.8 We will recheck tomorrow will restart Lasix and Spironolactone Continued severe alcoholic dependence Endorsing last drinks on the morning of arrival before 0900. Ethyl alcohol level 253 at admission. Placed on alcohol withdrawal protocol. Patient advised against any use of alcoholic drinks in future. CM to assist w/ outpatient resources regarding alcoholic cessation help. ADD Continue Adderall History of tobacco use Continue nicotine patch Asthma Stable; continue home inhalers DVT Ppx: SCDs Low platelet with risk of bleeding Increase ambulation Code status: FULL PCP: Ritu Dispo: Admitted to PCU Admission and Anticipated Discharge Date Admission Date: June 30, 2022 Subjective 07/02/2022 The patient was seen and examined in telemetry unit She has been complaining of chest pain with inspiration and nausea Denies any other symptoms of palpitation, shortness of breath, vomiting and or diarrhea She does not have any tremors 07/03/2022 The patient was seen and examined in telemetry unit She has been complaining of abdominal pain right lower quadrant with feverish since last night with nausea but no vomiting Remains generally weak but does not have any palpitation or tremors Rib pain seems to be controlled 07/04/2022 The patient was seen and examined in telemetry unit She complains to have more pain in the ribs No more blood in the stool Advised to have more physical therapy 07/05/2022 The patient was seen and examined in telemetry unit Her pain seems to be controlled but he still has right-sided abdominal pain Minimal nausea but no vomiting No more blood in the stool 07/06/2022 Patient was seen and examined in telemetry unit She still complains abdominal distention and pain involving the right-sided abdomen Has had nausea but no vomiting Her bowel is moving Rib pain is much better Review of Systems Review of Systems: All systems reviewed and are unremarkable except as noted below Physical Exam Physical Exam: Lying in bed with moderate distress due to right lower quadrant pain Constitutional: well developed, well nourished and + ill appearing Eyes: PERRL, conjunctivae normal, anicteric sclerae ENMT: external ear and nose normal, oropharynx normal Neck: trachea midline, no thyromegaly Respiratory: no respiratory distress Auscultation: lungs clear to auscultation bilaterally Cardiovascular: Rate/Rhythm: regular rate and regular rhythm; not tachycardic Heart Sounds: normal S1 and normal S2; no murmur Extremities: no edema Gastrointestinal (Abdomen): Inspection/Auscultation: abdomen normal to inspection and normal bowel sounds Percussion/Palpation: + abdomen tender (Right lower quadrant) and abdomen soft; no guarding Neurologic: normal touch/pain/proprioception and moves all extremities; no focal motor deficits and not confused Lymphatic: no cervical or axillary lymphadenopathy Results & Data Results & Data ([facility]) Vital Signs (Past 12 Hours) Vital Signs Temp Pulse Pulse Resp BP Pulse Ox O2 Del Method 07/06/22 12:21 36.7 C 84 16 117/74 97 Room Air 07/06/22 08:00 85 07/06/22 08:00 Room Air 07/06/22 07:16 80 16 95 Room Air 07/06/22 07:13 36.8 C 76 18 110/75 95 Room Air 07/06/22 04:04 36.9 C 89 18 115/76 95 Room Air Laboratory Results Short CBC 07/06/22 Range/Units 04:46 WBC 3.31 L (4.8-10.8) K/ul Hgb 7.8 L (12.0-16.0) g/dl Hct 23.3 L (34.1-44.9) % Plt Count 84 L (130-400) K/uL BMP 07/06/22 04:46 Sodium 137 Potassium 3.9 Chloride 110 H Carbon Dioxide 20 L BUN 5 L Creatinine 1.17 Glucose 77 Calcium 8.6 Liver Function 07/06/22 Range/Units 04:46 Total Bilirubin 2.3 H (0.2-1.0) mg/dl AST 26 (13-39) U/L ALT 19 (7-52) U/L Alkaline Phosphatase 107 H (34-104) U/L Albumin 2.9 L (3.4-5.0) gm/dl Medications Administered Current Inpatient Medications Acetaminophen (Acetaminophen 500 Mg Tab) 500 mg PO Q6H PRN PRN Reason: pain/fever Stop: 07/31/22 19:39 Albuterol (Albuterol Hfa 8 Gm Inhaler) 2 puffs INH BID PRN PRN Reason: Shortness Of Breath Stop: 07/30/22 17:53 Albuterol (Albuterol Hfa 8 Gm Inhaler (Combivent Respimat P&T Subs)) 1 puffs INH BIDR JUAN Stop: 07/30/22 18:59 Last Admin: 07/06/22 07:14 Dose: 1 puffs Amphetamine/Dextroamphetamine (Amphetamine Asp/Sulf/Dextramph 5 Mg Tab) 5 mg PO BID [facility] Stop: 07/14/22 20:59 Last Admin: 07/06/22 08:35 Dose: 5 mg Ascorbic Acid (Ascorbic Acid 500 Mg Tab) 500 mg PO QAM [facility] Stop: 07/31/22 08:59 Last Admin: 07/06/22 08:32 Dose: 500 mg Diclofenac Sodium (Diclofenac Sod 1% Gel 100 Gm Tube) 4 gm EXT TID [facility]; Protocol Stop: 07/31/22 20:59 Last Admin: 07/06/22 12:19 Dose: 4 gm Fluticasone Propionate (Fluticasone Propionate Na Spr 16 Gm Btl) 2 sprays LINETTE BID [facility] Stop: 07/30/22 20:59 Last Admin: 07/06/22 08:33 Dose: 2 sprays Fluticasone/Vilanterol (Fluticasone/Vilanterol 200/25mcg 14 Puffs/Inhaler) 1 puffs INH DAILY [facility] Stop: 07/31/22 08:59 Last Admin: 07/06/22 08:32 Dose: 1 puffs Heparin Sodium (Porcine) (Heparin 100 Unit/Ml 5ml Flush) 5 ml FLUSH PRN PRN PRN Reason: Flush Stop: 08/01/22 00:52 Last Admin: 07/05/22 14:14 Dose: 5 ml Hydromorphone HCl (Hydromorphone Inj 0.5 Mg/0.5 Ml Syr) 0.5 mg IV Q4H PRN PRN Reason: Pain not relieved by oral meds Stop: 07/15/22 21:09 Last Admin: 07/06/22 12:16 Dose: 0.5 mg Hydroxyzine HCl (Hydroxyzine Hcl 25 Mg Tab) 25 mg PO TID PRN PRN Reason: Anxiety Stop: 07/30/22 17:53 Last Admin: 07/06/22 12:19 Dose: 25 mg Ipratropium Nebo (Ipratropium Hfa Inhaler (Combivent Respimat P&T Subs)) 1 puffs INH BIDR [facility] Stop: 07/30/22 18:59 Last Admin: 07/06/22 07:15 Dose: 1 puffs Lactulose (Lactulose Syrup 20 Gm/30 Ml Udc) 20 gm PO QAM [facility] Stop: 07/31/22 08:59 Last Admin: 07/06/22 08:32 Dose: 20 gm Lidocaine (Lidocaine 5% 1 Patch) 1 patch TD [facility] Stop: 07/30/22 16:29 Last Admin: 07/06/22 08:32 Dose: 1 patch [facility]atadine ([facility] 10 Mg Tab) [facility] Stop: 07/31/22 08:59 Last Admin: 07/06/22 08:32 Dose: 10 mg Lorazepam (Lorazepam 1 Mg Tab) 1 mg PO UD PRN; Protocol PRN Reason: EtOH Withdrawal AWSS Score 6,7 Stop: 07/30/22 16:54 Lorazepam (Lorazepam 1 Mg Tab) 2 mg PO UD PRN; Protocol PRN Reason: EtOH Withdrawal AWSS Score 8,9 Stop: 07/30/22 16:54 Magnesium Oxide (Magnesium Oxide 400 Mg Tab) 400 mg PO BID [facility] Stop: 07/30/22 20:59 Last Admin: 07/06/22 08:32 Dose: 400 mg Melatonin (Melatonin 3 Mg Tab) 3 mg PO HS PRN PRN Reason: Sleep Stop: 07/31/22 23:04 Last Admin: 07/05/22 22:05 Dose: 3 mg Miscellaneous (Remove Lidoderm Patch) 1 each N/A DAILY@2100 [facility] Stop: 07/30/22 20:59 Last Admin: 07/05/22 20:32 Dose: 1 each Miscellaneous (Remove Nicoderm Patch) 1 each N/A QAM [facility] Stop: 07/31/22 08:59 Last Admin: 07/06/22 08:36 Dose: 1 each Montelukast Sodium (Montelukast Sodium 10 Mg Tablet) 10 mg PO HS [facility] Stop: 07/30/22 20:59 Last Admin: 07/05/22 20:16 Dose: 10 mg Multivitamins (Multivitamin Tab) 1 tab PO QAM [facility] Stop: 07/31/22 08:59 Last Admin: 07/06/22 08:32 Dose: 1 tab Nicotine (Nicotine 14 Mg/24 Hr Patch) 14 [facility] Stop: 07/31/22 08:59 Last Admin: 07/06/22 08:32 Dose: 14 mg Ondansetron HCl (Ondansetron Inj 2 Mg/Ml 2 Ml Vial) 4 mg IV Q6H PRN PRN Reason: Nausea Stop: 07/30/22 19:51 Last Admin: 07/06/22 12:19 Dose: 4 mg Oxycodone HCl (Oxycodone Hcl Ir 5 Mg Tab (Immediate Release)) 5 mg PO QID PRN PRN Reason: Pain Stop: 07/14/22 20:41 Last Admin: 07/06/22 10:24 Dose: 5 mg Pantoprazole Sodium (Pantoprazole 40 Mg Tab) 40 mg PO BID [facility] Stop: 07/31/22 20:59 Last Admin: 07/06/22 08:32 Dose: 40 mg Polyethylene Glycol (Polyethylene (Miralax) 17 Gm Pack) 17 gm PO DAILY PRN PRN Reason: Constipation Stop: 07/30/22 19:51 Potassium Phosphate (Pot Phosphate Monobasic W/ Sod Tab) 2 tab PO QID [facility] Stop: 07/30/22 20:59 Last Admin: 07/06/22 12:19 Dose: 2 tab Thiamine HCl (Thiamine Hcl 100 Mg Tab) [facility] Stop: 07/31/22 08:59 Last Admin: 07/06/22 08:32 Dose: 100 mg Umeclidinium Nebo (Umeclidinium Nebo 62.5mcg/Blister 7 Puffs/Inhaler) 1 puffs INH [facility] Stop: 07/31/22 08:59 Last Admin: 07/06/22 08:33 Dose: 1 puffs Vitamin D (Cholecalciferol 1,000 Units 25 Mcg Tab) 2,000 units PO QAM [facility] Stop: 07/31/22 08:59 Last Admin: 07/06/22 08:32 Dose: 2,000 units (1) Cirrhosis Ascites presence: with ascites Hepatic cirrhosis type: alcoholic cirrhosis Qualified Code(s): K70.31 - Alcoholic cirrhosis of liver with ascites
[2022-07-06] MEDS ORDERED: SPIRONOLACTONE 100 MG TAB PO STA (13:48)
[2022-07-06] MEDS ORDERED: FUROSEMIDE 40 MG TAB PO ONE (14:00)
[2022-07-06] MEDS: MONTELUKAST SODIUM 10 MG TABLET PO SCH (20:36)
[2022-07-06] MEDS: MELATONIN 3 MG TAB PO PRN (23:18)
[2022-07-07] MEDS: HYDROmorphone INJ 0.5 MG/0.5 ML SYR IV PRN ×6 (00:35→21:17)
[2022-07-07] MEDS: oxyCODONE HCL IR 5 MG TAB (IMMEDIATE RELEASE) PO PRN ×3 (06:32→20:05)
[2022-07-07] MEDS: hydrOXYzine HCl 25 MG TAB PO PRN ×3 (06:43→23:26)
[2022-07-07 06:53] LABS: Basophils # (auto) 0.02 K/uL (0-0.2); Basophils % (auto) 0.6 %; Eosinophils # (auto) 0.07 K/uL (0-0.50); Eosinophils % (auto) 1.9 %; Hematocrit (blood only) 23.2 % (34.1-44.9); Hemoglobin 7.9 g/dl (12.0-16.0); Immature Granulocytes # (auto) 0.02 K/uL (0.00-0.02); Immature Granulocytes % (auto) 0.6 %; Lymphocytes # (auto) 0.81 K/uL (1.2-3.4); Lymphocytes % (auto) 22.6 %; Mean Platelet Volume 9.5 fL (9.4-12.3); Monocytes # (auto) 0.42 K/uL (0.24-0.82); Monocytes % (auto) 11.7 %; Neutrophils # (auto) 2.25 K/uL (1.4-6.5); Neutrophils % (auto) 62.6 %; Platelet Count 89 K/uL (130-400); White Blood Count 3.59 K/ul (4.8-10.8)
[2022-07-07] MEDS: Albuterol HFA 8 GM Inhaler (Combivent Respimat P&T Subs) INH SCH ×2 (07:11→20:02)
[2022-07-07] MEDS: Ipratropium HFA Inhaler (Combivent Respimat P&T Subs) INH SCH ×2 (07:11→20:02)
[2022-07-07 07:17] LABS: Mean Corpuscular Hemoglobin 29.4 pg (25.0-34.0); Mean Corpuscular Hgb Conc 34.1 g/dL (32.0-36.0); Mean Corpuscular Volume 86.2 fL (80.0-100.0); Polychromasia 1+; RDW Coefficient of Variation 13.8 % (11.5-14.5); RDW Standard Deviation 42.5 fL (36.4-46.3); Red Blood Count 2.69 M/uL (3.93-5.22); Target Cells 1+
[2022-07-07 07:25] LABS: BUN Creatinine Ratio 4.9 (10-20); Calcium 8.8 mg/dl (8.5-10.1); Creatinine Clr Calc Pharmacy 54.8 ml/min; Est GFR (African American) 66.5 ml/min; Est GFR (Non-African American) 57.3 ml/min; Magnesium 1.5 mg/dl (1.7-2.4); Phosphorus 4.2 mg/dl (2.5-4.9); Potassium 3.5 mmol/L (3.5-5.1)
[2022-07-07] MEDS: HEPARIN 100 UNIT/ML 5ML FLUSH FLUSH PRN (08:27)
[2022-07-07] MEDS: FUROSEMIDE 80 MG TAB PO SCH (08:57)
[2022-07-07] MEDS: SPIRONOLACTONE 100 MG TAB PO SCH (08:57)
[2022-07-07] MEDS: LIDOCAINE 5% 1 PATCH TD SCH (08:57)
[2022-07-07] MEDS: NICOTINE 14 MG/24 HR PATCH TD SCH (08:57)
[2022-07-07] MEDS: PANTOprazole 40 MG TAB PO SCH ×2 (08:57→20:05)
[2022-07-07] MEDS: POT PHOSPHATE MONOBASIC W/ SOD TAB PO SCH ×4 (08:58→20:06)
[2022-07-07] MEDS: FLUTICASONE/VILANTEROL 200/25MCG 14 PUFFS/INHALER INH SCH (08:58)
[2022-07-07] MEDS: LACTULOSE SYRUP 20 GM/30 ML UDC PO SCH (08:58)
[2022-07-07] MEDS: CHOLECALCIFEROL 1,000 UNITS 25 MCG TAB PO SCH (08:58)
[2022-07-07] MEDS: POTASSIUM CHLORIDE CRTAB 20 MEQ TABCR PO SCH (08:58)
[2022-07-07] MEDS: ASCORBIC ACID 500 MG TAB PO SCH (08:58)
[2022-07-07] MEDS: DICLOFENAC SOD 1% GEL 100 GM TUBE EXT SCH ×3 (08:58→20:06)
[2022-07-07] MEDS: MAGNESIUM OXIDE 400 MG TAB PO SCH ×2 (08:58→20:05)
[2022-07-07] MEDS: LORATADINE 10 MG TAB PO SCH (08:58)
[2022-07-07] MEDS: AMPHETAMINE ASP/SULF/DEXTRAMPH 5 MG TAB PO SCH ×2 (08:58→14:23)
[2022-07-07] MEDS: MULTIVITAMIN TAB PO SCH (08:58)
[2022-07-07] MEDS: THIAMINE HCL 100 MG TAB PO SCH (08:58)
[2022-07-07] MEDS: UMECLIDINIUM BROMIDE 62.5MCG/BLISTER 7 PUFFS/INHALER INH SCH (08:58)
[2022-07-07] MEDS: FLUTICASONE PROPIONATE NA SPR 16 GM BTL NAE SCH ×2 (08:58→20:06)
--- NOTE | 2022-07-07 09:42 | Ultrasound Report ---
US abdomen ltd ascites HISTORY: 37 years-old Female Evaluate ascietes follow-up study in a patient with history of abdomina l ascites COMPARISON: CT 07/03/2022 TECHNIQUE: Multiple real-time sonographic images of the abdomen were obtained assessing grayscale ephraim earance FINDINGS: Small abdominopelvic ascites redemonstrated. Cirrhotic morphology of the liver. The spleen is enlarge d, 16.8 cm. IMPRESSION: Small volume ascites. ACT 112: Negative or not required by law. The above report was generated using voice recognition software. It may contain grammatical, syntax o r spelling errors. Electronically signed by: Bud Madera M.D. 07/07/2022 9:41 AM
[2022-07-07] MEDS: CYCLOBENZAPRINE HCL 5 MG TAB PO PRN ×2 (12:34→21:17)
--- NOTE | 2022-07-07 17:24 | Hospitalist Progress Note ---
Date of Service July 07, 2022 Assessment & Plan (1) Fall: (2) Closed rib fracture: (3) VAN (acute kidney injury): (4) Alcohol intoxication: (5) Alcohol use disorder: (6) Generalized anxiety disorder: (7) Cirrhosis: (8) Depression: (9) ADD (attention deficit disorder): (10) Asthma: Plan 37yo F with a PMH of alcoholic cirrhosis with ascites, continued severe alcohol dependence, ADD, depression, anxiety and other medical problems listed below who presents after fall at home on the morning of the day of arrival. She is being managed for the following: Fall Rib fractures-posterior right ninth and 10th ribs without any pneumothorax and or hematoma Patient came in with complaint of fall in the shower, patient relapsed on drinking, patient hit her head/forehead/back/right side of her body. Head CT, cervical spine, thoracic, lumbar, abd/pelvis, chest CTs performed - evidence of acute nondisplaced fractures involving the posterior medial aspects of the right ninth and 10th ribs. Otherwise no traumatic injuries noted Lidocaine patch, ice, Tylenol for rib fractures. Can use Voltaren gel. Has been getting intravenous Dilaudid and also oral oxycodone on top of above medications Pain is not yet reasonably controlled-Dilaudid frequency has been increased Pain is worse and Dilaudid doses have been increased We will get PT and OT evaluation Rib pain seems to be controlled Pain is reasonably controlled We will get PT and OT evaluation prior to discharge tomorrow Right lower quadrant pain Associated nausea and feverish Locally tender Will have CT of the abdomen with contrast to rule out appendicitis-Ruled out Minimal abdominal pain and no more hematochezia Still has right-sided abdominal pain Will get ultrasound of the abdomen on Thursday Ultrasound of the abdomen in the morning to rule out any significant ascites Ultrasound did not show enough fluid in the abdomen to be drained Acute renal failure Creatinine elevated at 2.57 (baseline ~0.8) Poor oral intake given prolonged N/V and still taking Lasix and spironolactone for cirrhosis Holding diuretics for now, IV fluids, creatinine trending down. Avoid nephrotoxic agents, lasix and aldactone held. Creatinine has been improving and as of this morning is 1.73 Kidney function is improved further We will need to have cautious amount of intravenous fluid due to use of contrast media Kidney function is improved-renal function has been normalized We will check PRP tomorrow and electrolytes Alcoholic cirrhosis Intractable nausea/vomiting Patient with history of cirrhosis, following with [facility] Left 2-month inpatient alcohol treatment facility 4 days ago [employer] and resumed drinking the day before arrival Worsened nausea and vomiting with poor appetite while at treatment center, reports some hematemesis but none for the past week GI evaluated, no indication for scope for now, advance diet as tolerated. Patient reports improving nausea and vomiting, and is tolerating diet. Continue with PPI, antiemetics as needed Still has nausea likely secondary to gastritis Has has had hematochezia-stopped No coffee-ground vomiting Will monitor CBC-hemoglobin is dropped to 7.8 We will recheck tomorrow will restart Lasix and Spironolactone Continue with current medications Continued severe alcoholic dependence Endorsing last drinks on the morning of arrival before 0900. Ethyl alcohol level 253 at admission. Placed on alcohol withdrawal protocol. Patient advised against any use of alcoholic drinks in future. CM to assist w/ outpatient resources regarding alcoholic cessation help. ADD Continue Adderall History of tobacco use Continue nicotine patch Asthma Stable; continue home inhalers DVT Ppx: SCDs Low platelet with risk of bleeding Increase ambulation Code status: FULL PCP: Ritu Dispo: Admitted to PCU Admission and Anticipated Discharge Date Admission Date: June 30, 2022 Subjective 07/02/2022 The patient was seen and examined in telemetry unit She has been complaining of chest pain with inspiration and nausea Denies any other symptoms of palpitation, shortness of breath, vomiting and or diarrhea She does not have any tremors 07/03/2022 The patient was seen and examined in telemetry unit She has been complaining of abdominal pain right lower quadrant with feverish since last night with nausea but no vomiting Remains generally weak but does not have any palpitation or tremors Rib pain seems to be controlled 07/04/2022 The patient was seen and examined in telemetry unit She complains to have more pain in the ribs No more blood in the stool Advised to have more physical therapy 07/05/2022 The patient was seen and examined in telemetry unit Her pain seems to be controlled but he still has right-sided abdominal pain Minimal nausea but no vomiting No more blood in the stool 07/06/2022 Patient was seen and examined in telemetry unit She still complains abdominal distention and pain involving the right-sided abdomen Has had nausea but no vomiting Her bowel is moving Rib pain is much better 07/07/2022 The patient was seen and examined in telemetry unit She has been feeling better but he still complains to have pain Ultrasound of the abdomen did not show much fluid in the abdomen She has been started with diuretics and making out enough urine We will get PT and OT evaluation prior to discharge tomorrow Review of Systems Review of Systems: All systems reviewed and are unremarkable except as noted below Physical Exam Physical Exam: Lying in bed with moderate distress due to right lower quadrant pain Constitutional: well developed, well nourished and + ill appearing Eyes: PERRL, conjunctivae normal, anicteric sclerae ENMT: external ear and nose normal, oropharynx normal Neck: trachea midline, no thyromegaly Respiratory: no respiratory distress Auscultation: lungs clear to auscultation bilaterally Cardiovascular: Rate/Rhythm: regular rate and regular rhythm; not tachycardic Heart Sounds: normal S1 and normal S2; no murmur Extremities: no edema Gastrointestinal (Abdomen): Inspection/Auscultation: abdomen normal to inspection and normal bowel sounds Percussion/Palpation: + abdomen tender (Right lower quadrant) and abdomen soft; no guarding Musculoskeletal: No acute arthritis involving any joint Neurologic: normal touch/pain/proprioception and moves all extremities; no focal motor deficits and not confused Lymphatic: no cervical or axillary lymphadenopathy Results & Data Results & Data ([facility]) Vital Signs (Past 12 Hours) Vital Signs Temp Pulse Pulse Resp BP Pulse Ox O2 Del Method 07/07/22 15:43 37.1 C 78 16 104/63 93 Room Air 07/07/22 11:53 37.3 C 77 16 108/67 94 Room Air 07/07/22 08:00 83 07/07/22 07:34 37.1 C 82 16 124/80 94 Room Air 07/07/22 07:12 85 18 96 Room Air Laboratory Results Short CBC 07/07/22 Range/Units 06:34 WBC 3.59 L (4.8-10.8) K/ul Hgb 7.9 L (12.0-16.0) g/dl Hct 23.2 L (34.1-44.9) % Plt Count 89 L (130-400) K/uL BMP 07/07/22 06:34 Sodium 138 Potassium 3.5 Chloride 108 H Carbon Dioxide 23 BUN 6 Creatinine 1.22 H Glucose 86 Calcium 8.8 Medications Administered Current Inpatient Medications Acetaminophen (Acetaminophen 500 Mg Tab) 500 mg PO Q6H PRN PRN Reason: pain/fever Stop: 07/31/22 19:39 Albuterol (Albuterol Hfa 8 Gm Inhaler) 2 puffs INH BID PRN PRN Reason: Shortness Of Breath Stop: 07/30/22 17:53 Albuterol (Albuterol Hfa 8 Gm Inhaler (Combivent Respimat P&T Subs)) 1 puffs INH BIDR [facility] Stop: 07/30/22 18:59 Last Admin: 07/07/22 07:11 Dose: 1 puffs Amphetamine/Dextroamphetamine (Amphetamine Asp/Sulf/Dextramph 5 Mg Tab) 5 mg PO BID [facility] Stop: 07/14/22 20:59 Last Admin: 07/07/22 14:23 Dose: 5 mg Ascorbic Acid (Ascorbic Acid 500 Mg Tab) 500 mg PO QAM [facility] Stop: 07/31/22 08:59 Last Admin: 07/07/22 08:58 Dose: 500 mg Cyclobenzaprine HCl (Cyclobenzaprine Hcl 5 Mg Tab) 5 mg PO BID PRN PRN Reason: Muscle Spasm Stop: 08/06/22 20:59 Last Admin: 07/07/22 12:34 Dose: 5 mg Diclofenac Sodium (Diclofenac Sod 1% Gel 100 Gm Tube) 4 gm EXT TID [facility]; Protocol Stop: 07/31/22 20:59 Last Admin: 07/07/22 13:53 Dose: 4 gm Fluticasone Propionate (Fluticasone Propionate Na Spr 16 Gm Btl) 2 sprays [place]ETTE BID [facility] Stop: 07/30/22 20:59 Last Admin: 07/07/22 08:58 Dose: 2 sprays Fluticasone/Vilanterol (Fluticasone/Vilanterol 200/25mcg 14 Puffs/Inhaler) 1 puffs INH DAILY [facility] Stop: 07/31/22 08:59 Last Admin: 07/07/22 08:58 Dose: 1 puffs Furosemide (Furosemide 80 Mg Tab) 80 mg PO QAM [facility] Stop: 08/06/22 08:59 Last Admin: 07/07/22 08:57 Dose: 80 mg Heparin Sodium (Porcine) (Heparin 100 Unit/Ml 5ml Flush) 5 ml FLUSH PRN PRN PRN Reason: Flush Stop: 08/01/22 00:52 Last Admin: 07/07/22 08:27 Dose: 5 ml Hydromorphone HCl (Hydromorphone Inj 0.5 Mg/0.5 Ml Syr) 0.5 mg IV Q4H PRN PRN Reason: Pain not relieved by oral meds Stop: 07/15/22 21:09 Last Admin: 07/07/22 17:09 Dose: 0.5 mg Hydroxyzine HCl (Hydroxyzine Hcl 25 Mg Tab) 25 mg PO TID PRN PRN Reason: Anxiety Stop: 07/30/22 17:53 Last Admin: 07/07/22 14:23 Dose: 25 mg Ipratropium [place] (Ipratropium Hfa Inhaler (Combivent Respimat P&T Subs)) 1 puffs INH BIDR [facility] Stop: 07/30/22 18:59 Last Admin: 07/07/22 07:11 Dose: 1 puffs Lactulose (Lactulose Syrup 20 Gm/30 Ml Udc) 20 gm PO QAM [facility] Stop: 07/31/22 08:59 Last Admin: 07/07/22 08:58 Dose: 20 gm Lidocaine (Lidocaine 5% 1 Patch) 1 patch TD QAM [facility] Stop: 07/30/22 16:29 Last Admin: 07/07/22 08:57 Dose: 1 patch Loratadine (Loratadine 10 Mg Tab) 10 mg PO QAM [facility] Stop: 07/31/22 08:59 Last Admin: 07/07/22 08:58 Dose: 10 mg Lorazepam (Lorazepam 1 Mg Tab) 1 mg PO UD PRN; Protocol PRN Reason: EtOH Withdrawal AWSS Score 6,7 Stop: 07/30/22 16:54 Lorazepam (Lorazepam 1 Mg Tab) 2 mg PO UD PRN; Protocol PRN Reason: EtOH Withdrawal AWSS Score 8,9 Stop: 07/30/22 16:54 Magnesium Oxide (Magnesium Oxide 400 Mg Tab) 400 mg PO BID [facility] Stop: 07/30/22 20:59 Last Admin: 07/07/22 08:58 Dose: 400 mg Melatonin (Melatonin 3 Mg Tab) 3 mg PO HS PRN PRN Reason: Sleep Stop: 07/31/22 23:04 Last Admin: 07/06/22 23:18 Dose: 3 mg Miscellaneous (Remove Lidoderm Patch) 1 each N/A DAILY@2100 [facility] Stop: 07/30/22 20:59 Last Admin: 07/06/22 20:36 Dose: 1 each Miscellaneous (Remove Nicoderm Patch) 1 each N/A QAM [facility] Stop: 07/31/22 08:59 Last Admin: 07/07/22 09:45 Dose: 1 each Montelukast Sodium (Montelukast Sodium 10 Mg Tablet) 10 mg PO HS [facility] Stop: 07/30/22 20:59 Last Admin: 07/06/22 20:36 Dose: 10 mg Multivitamins (Multivitamin Tab) 1 tab PO QAM [facility] Stop: 07/31/22 08:59 Last Admin: 07/07/22 08:58 Dose: 1 tab Nicotine (Nicotine 14 Mg/24 Hr Patch) 14 mg TD QAM [facility] Stop: 07/31/22 08:59 Last Admin: 07/07/22 08:57 Dose: 14 mg Ondansetron HCl (Ondansetron Inj 2 Mg/Ml 2 Ml Vial) 4 mg IV Q6H PRN PRN Reason: Nausea Stop: 07/30/22 19:51 Last Admin: 07/06/22 20:33 Dose: 4 mg Oxycodone HCl (Oxycodone Hcl Ir 5 Mg Tab (Immediate Release)) 5 mg PO QID PRN PRN Reason: Pain Stop: 07/14/22 20:41 Last Admin: 07/07/22 14:20 Dose: 5 mg Pantoprazole Sodium (Pantoprazole 40 Mg Tab) 40 mg PO BID [facility] Stop: 07/31/22 20:59 Last Admin: 07/07/22 08:57 Dose: 40 mg Polyethylene Glycol (Polyethylene (Miralax) 17 Gm Pack) 17 gm PO DAILY PRN PRN Reason: Constipation Stop: 07/30/22 19:51 Potassium Chloride (Potassium Chloride Crtab 20 Meq Tabcr) 20 meq PO QAM [facility] Stop: 08/06/22 08:59 Last Admin: 07/07/22 08:58 Dose: 20 meq Potassium Phosphate (Pot Phosphate Monobasic W/ Sod Tab) 2 tab PO QID [facility] Stop: 07/30/22 20:59 Last Admin: 07/07/22 17:09 Dose: 2 tab Spironolactone (Spironolactone 100 Mg Tab) 200 mg PO [facility] Stop: 08/06/22 08:59 Last Admin: 07/07/22 08:57 Dose: 200 mg Thiamine HCl (Thiamine Hcl 100 Mg Tab) 100 mg PO [facility] Stop: 07/31/22 08:59 Last Admin: 07/07/22 08:58 Dose: 100 mg Umeclidinium [place] (Umeclidinium [place] 62.5mcg/Blister 7 Puffs/Inhaler) 1 puffs INH [facility] Stop: 07/31/22 08:59 Last Admin: 07/07/22 08:58 Dose: 1 puffs Vitamin D (Cholecalciferol 1,000 Units 25 Mcg Tab) 2,000 units PO [facility] Stop: 07/31/22 08:59 Last Admin: 07/07/22 08:58 Dose: 2,000 units (1) Cirrhosis Ascites presence: with ascites Hepatic cirrhosis type: alcoholic cirrhosis Qualified Code(s): K70.31 - Alcoholic cirrhosis of liver with ascites
[2022-07-07] MEDS: MONTELUKAST SODIUM 10 MG TABLET PO SCH (20:05)
[2022-07-08] MEDS: MELATONIN 3 MG TAB PO PRN ×2 (00:25→20:29)
[2022-07-08] MEDS: HYDROmorphone INJ 0.5 MG/0.5 ML SYR IV PRN ×6 (01:35→21:50)
[2022-07-08] MEDS ORDERED: FAMOTIDINE 20 MG in SYRINGE 3 ML IV ONE (01:45)
[2022-07-08] MEDS: oxyCODONE HCL IR 5 MG TAB (IMMEDIATE RELEASE) PO PRN ×4 (04:07→20:28)
[2022-07-08 06:46] LABS: BUN Creatinine Ratio 4.6 (10-20); Calcium 8.9 mg/dl (8.5-10.1); Creatinine Clr Calc Pharmacy 52.1 ml/min; Est GFR (Non-African American) 52.6 ml/min; Magnesium 1.3 mg/dl (1.7-2.4); Phosphorus 5.1 mg/dl (2.5-4.9); Potassium 3.5 mmol/L (3.5-5.1)
[2022-07-08] MEDS: Albuterol HFA 8 GM Inhaler (Combivent Respimat P&T Subs) INH SCH ×2 (07:40→20:01)
[2022-07-08] MEDS: Ipratropium HFA Inhaler (Combivent Respimat P&T Subs) INH SCH ×2 (07:40→20:00)
[2022-07-08] MEDS: POT PHOSPHATE MONOBASIC W/ SOD TAB PO SCH ×4 (08:51→21:52)
[2022-07-08] MEDS: MAGNESIUM OXIDE 400 MG TAB PO SCH ×2 (08:52→21:51)
[2022-07-08] MEDS: POTASSIUM CHLORIDE CRTAB 20 MEQ TABCR PO SCH (08:52)
[2022-07-08] MEDS: LACTULOSE SYRUP 20 GM/30 ML UDC PO SCH (08:53)
[2022-07-08] MEDS: SPIRONOLACTONE 100 MG TAB PO SCH (08:54)
[2022-07-08] MEDS: ASCORBIC ACID 500 MG TAB PO SCH (08:54)
[2022-07-08] MEDS: CHOLECALCIFEROL 1,000 UNITS 25 MCG TAB PO SCH (08:54)
[2022-07-08] MEDS: PANTOprazole 40 MG TAB PO SCH ×2 (08:54→21:52)
[2022-07-08] MEDS: LORATADINE 10 MG TAB PO SCH (08:56)
[2022-07-08] MEDS: LIDOCAINE 5% 1 PATCH TD SCH (08:56)
[2022-07-08] MEDS: FUROSEMIDE 80 MG TAB PO SCH (08:57)
[2022-07-08] MEDS: MULTIVITAMIN TAB PO SCH (08:57)
[2022-07-08] MEDS: FLUTICASONE/VILANTEROL 200/25MCG 14 PUFFS/INHALER INH SCH (08:57)
[2022-07-08] MEDS: THIAMINE HCL 100 MG TAB PO SCH (08:58)
[2022-07-08] MEDS: NICOTINE 14 MG/24 HR PATCH TD SCH (08:58)
[2022-07-08] MEDS: DICLOFENAC SOD 1% GEL 100 GM TUBE EXT SCH ×3 (08:59→20:29)
[2022-07-08] MEDS: FLUTICASONE PROPIONATE NA SPR 16 GM BTL NAE SCH ×2 (09:00→20:27)
[2022-07-08] MEDS: AMPHETAMINE ASP/SULF/DEXTRAMPH 5 MG TAB PO SCH ×2 (09:05→18:04)
[2022-07-08] MEDS: MAGNESIUM SULFATE / D5W 1 GM/100 ML BAG IV SCH ×2 (09:09→12:14)
[2022-07-08] MEDS: hydrOXYzine HCl 25 MG TAB PO PRN ×2 (10:14→20:29)
[2022-07-08] MEDS: UMECLIDINIUM BROMIDE 62.5MCG/BLISTER 7 PUFFS/INHALER INH SCH (12:14)
--- NOTE | 2022-07-08 16:41 | Hospitalist Progress Note ---
Date of Service July 08, 2022 Assessment & Plan (1) Fall: (2) Closed rib fracture: (3) VAN (acute kidney injury): (4) Alcohol intoxication: (5) Alcohol use disorder: (6) Generalized anxiety disorder: (7) Cirrhosis: (8) Depression: (9) ADD (attention deficit disorder): (10) Asthma: Plan 37yo F with a PMH of alcoholic cirrhosis with ascites, continued severe alcohol dependence, ADD, depression, anxiety and other medical problems listed below who presents after fall at home on the morning of the day of arrival. She is being managed for the following: Fall Rib fractures-posterior right ninth and 10th ribs without any pneumothorax and or hematoma Patient came in with complaint of fall in the shower, patient relapsed on drinking, patient hit her head/forehead/back/right side of her body. Head CT, cervical spine, thoracic, lumbar, abd/pelvis, chest CTs performed - evidence of acute nondisplaced fractures involving the posterior medial aspects of the right ninth and 10th ribs. Otherwise no traumatic injuries noted Lidocaine patch, ice, Tylenol for rib fractures. Can use Voltaren gel. Has been getting intravenous Dilaudid and also oral oxycodone on top of above medications Pain is not yet reasonably controlled-Dilaudid frequency has been increased Pain is worse and Dilaudid doses have been increased We will get PT and OT evaluation Rib pain seems to be controlled Pain is reasonably controlled Not yet ready to be discharged Continue with PT and likely discharge tomorrow Family advised that she will not be given any extra pain medications on discharge besides the oral narcotics that she is getting Right lower quadrant pain Associated nausea and feverish Locally tender Will have CT of the abdomen with contrast to rule out appendicitis-Ruled out Minimal abdominal pain and no more hematochezia Still has right-sided abdominal pain Will get ultrasound of the abdomen on Thursday Ultrasound of the abdomen in the morning to rule out any significant ascites Ultrasound did not show enough fluid in the abdomen to be drained Abdomen remains soft and tenderness is improved Acute renal failure Creatinine elevated at 2.57 (baseline ~0.8) Poor oral intake given prolonged N/V and still taking Lasix and spironolactone for cirrhosis Holding diuretics for now, IV fluids, creatinine trending down. Avoid nephrotoxic agents, lasix and aldactone held. Creatinine has been improving and as of this morning is 1.73 Kidney function is improved further We will need to have cautious amount of intravenous fluid due to use of contrast media Kidney function is improved-renal function has been normalized We will check PRP tomorrow and electrolytes Alcoholic cirrhosis Intractable nausea/vomiting Patient with history of cirrhosis, following with Marly VILLAFUERTE Left 2-month inpatient alcohol treatment facility 4 days ago [employer] and resumed drinking the day before arrival Worsened nausea and vomiting with poor appetite while at treatment center, reports some hematemesis but none for the past week GI evaluated, no indication for scope for now, advance diet as tolerated. Patient reports improving nausea and vomiting, and is tolerating diet. Continue with PPI, antiemetics as needed Still has nausea likely secondary to gastritis Has has had hematochezia-stopped No coffee-ground vomiting Will monitor CBC-hemoglobin is dropped to 7.8 We will recheck tomorrow will restart Lasix and Spironolactone Continue with current medications Strongly advised to quit alcohol Continued severe alcoholic dependence Endorsing last drinks on the morning of arrival before 0900. Ethyl alcohol level 253 at admission. Placed on alcohol withdrawal protocol. Patient advised against any use of alcoholic drinks in future. CM to assist w/ outpatient resources regarding alcoholic cessation help. ADD Continue Adderall History of tobacco use Continue nicotine patch Asthma Stable; continue home inhalers DVT Ppx: SCDs Low platelet with risk of bleeding Increase ambulation Code status: FULL PCP: Ritu Dispo: Admitted to PCU Admission and Anticipated Discharge Date Admission Date: June 30, 2022 Subjective 07/02/2022 The patient was seen and examined in telemetry unit She has been complaining of chest pain with inspiration and nausea Denies any other symptoms of palpitation, shortness of breath, vomiting and or diarrhea She does not have any tremors 07/03/2022 The patient was seen and examined in telemetry unit She has been complaining of abdominal pain right lower quadrant with feverish since last night with nausea but no vomiting Remains generally weak but does not have any palpitation or tremors Rib pain seems to be controlled 07/04/2022 The patient was seen and examined in telemetry unit She complains to have more pain in the ribs No more blood in the stool Advised to have more physical therapy 07/05/2022 The patient was seen and examined in telemetry unit Her pain seems to be controlled but he still has right-sided abdominal pain Minimal nausea but no vomiting No more blood in the stool 07/06/2022 Patient was seen and examined in telemetry unit She still complains abdominal distention and pain involving the right-sided abdomen Has had nausea but no vomiting Her bowel is moving Rib pain is much better 07/07/2022 The patient was seen and examined in telemetry unit She has been feeling better but he still complains to have pain Ultrasound of the abdomen did not show much fluid in the abdomen She has been started with diuretics and making out enough urine We will get PT and OT evaluation prior to discharge tomorrow 07/08/2022 The patient was seen and examined in telemetry unit She remains weak and still in pain Has had physical therapy yesterday and recommended home Would like to have more physical therapy today and possible discharge tomorrow Review of Systems Review of Systems: All systems reviewed and are unremarkable except as noted below Physical Exam Physical Exam: Lying in bed with moderate distress due to right lower quadrant pain Constitutional: well developed, well nourished and + ill appearing Eyes: PERRL, conjunctivae normal, anicteric sclerae ENMT: external ear and nose normal, oropharynx normal Neck: trachea midline, no thyromegaly Respiratory: no respiratory distress Auscultation: lungs clear to auscultation bilaterally Cardiovascular: Rate/Rhythm: regular rate and regular rhythm; not tachycardic Heart Sounds: normal S1 and normal S2; no murmur Extremities: no edema Gastrointestinal (Abdomen): Inspection/Auscultation: abdomen normal to inspection and normal bowel sounds Percussion/Palpation: + abdomen tender (Right lower quadrant) and abdomen soft; no guarding Musculoskeletal: No acute arthritis in any joint Neurologic: normal touch/pain/proprioception and moves all extremities; no focal motor deficits and not confused Lymphatic: no cervical or axillary lymphadenopathy Results & Data Results & Data ([facility]) Vital Signs (Past 12 Hours) Vital Signs Temp Pulse Resp BP Pulse Ox O2 Del Method 07/08/22 11:40 37.0 C 82 18 116/71 96 Room Air 07/08/22 08:33 37.0 C 82 20 109/69 95 Room Air 07/08/22 07:41 84 16 94 Room Air Laboratory Results [facility] 07/08/22 05:53 Sodium 138 Potassium 3.5 Chloride 102 Carbon Dioxide 27 BUN 6 Creatinine 1.31 H Glucose 88 Calcium 8.9 Medications Administered Current Inpatient Medications Acetaminophen (Acetaminophen 500 Mg Tab) 500 mg PO Q6H PRN PRN Reason: pain/fever Stop: 07/31/22 19:39 Albuterol (Albuterol Hfa 8 Gm Inhaler) 2 puffs INH BID PRN PRN Reason: Shortness Of Breath Stop: 07/30/22 17:53 Albuterol (Albuterol Hfa 8 Gm Inhaler (Combivent Respimat P&T Subs)) 1 puffs INH BIDR JUAN Stop: 07/30/22 18:59 Last Admin: 07/08/22 07:40 Dose: 1 puffs Amphetamine/Dextroamphetamine (Amphetamine Asp/Sulf/Dextramph 5 Mg Tab) 5 mg PO BID JUAN Stop: 07/14/22 20:59 Last Admin: 07/08/22 09:05 Dose: 5 mg Ascorbic Acid (Ascorbic Acid 500 Mg Tab) 500 mg PO QAM JUAN Stop: 07/31/22 08:59 Last Admin: 07/08/22 08:54 Dose: 500 mg Cyclobenzaprine HCl (Cyclobenzaprine Hcl 5 Mg Tab) 5 mg PO BID PRN PRN Reason: Muscle Spasm Stop: 08/06/22 20:59 Last Admin: 07/07/22 21:17 Dose: 5 mg Diclofenac Sodium (Diclofenac Sod 1% Gel 100 Gm Tube) 4 gm EXT TID [facility]; Protocol Stop: 07/31/22 20:59 Last Admin: 07/08/22 14:16 Dose: 4 gm Fluticasone Propionate (Fluticasone Propionate Na Spr 16 Gm Btl) 2 sprays LINETTE BID JUAN Stop: 07/30/22 20:59 Last Admin: 07/08/22 09:00 Dose: Not Given Fluticasone/Vilanterol (Fluticasone/Vilanterol 200/25mcg 14 Puffs/Inhaler) 1 puffs INH DAILY JUAN Stop: 07/31/22 08:59 Last Admin: 07/08/22 08:57 Dose: 1 puffs Furosemide (Furosemide 80 Mg Tab) 80 mg PO QAM JUAN Stop: 08/06/22 08:59 Last Admin: 07/08/22 08:57 Dose: 80 mg Heparin Sodium (Porcine) (Heparin 100 Unit/Ml 5ml Flush) 5 ml FLUSH PRN PRN PRN Reason: Flush Stop: 08/01/22 00:52 Last Admin: 07/07/22 08:27 Dose: 5 ml Hydromorphone HCl (Hydromorphone Inj 0.5 Mg/0.5 Ml Syr) 0.5 mg IV Q4H PRN PRN Reason: Pain not relieved by oral meds Stop: 07/15/22 21:09 Last Admin: 07/08/22 14:19 Dose: 0.5 mg Hydroxyzine HCl (Hydroxyzine Hcl 25 Mg Tab) 25 mg PO TID PRN PRN Reason: Anxiety Stop: 07/30/22 17:53 Last Admin: 07/08/22 10:14 Dose: 25 mg Ipratropium Langtry (Ipratropium Hfa Inhaler (Combivent Respimat P&T Subs)) 1 puffs INH BIDR [facility] Stop: 07/30/22 18:59 Last Admin: 07/08/22 07:40 Dose: 1 puffs Lactulose (Lactulose Syrup 20 Gm/30 Ml Udc) 20 gm PO QAM [facility] Stop: 07/31/22 08:59 Last Admin: 07/08/22 08:53 Dose: 20 gm Lidocaine (Lidocaine 5% 1 Patch) 1 patch TD QAM [facility] Stop: 07/30/22 16:29 Last Admin: 07/08/22 08:56 Dose: 1 patch Loratadine (Loratadine 10 Mg Tab) 10 mg PO QAM [facility] Stop: 07/31/22 08:59 Last Admin: 07/08/22 08:56 Dose: 10 mg Lorazepam (Lorazepam 1 Mg Tab) 1 mg PO UD PRN; Protocol PRN Reason: EtOH Withdrawal AWSS Score 6,7 Stop: 07/30/22 16:54 Lorazepam (Lorazepam 1 Mg Tab) 2 mg PO UD PRN; Protocol PRN Reason: EtOH Withdrawal AWSS Score 8,9 Stop: 07/30/22 16:54 Magnesium Oxide (Magnesium Oxide 400 Mg Tab) 400 mg PO BID [facility] Stop: 07/30/22 20:59 Last Admin: 07/08/22 08:52 Dose: 400 mg Melatonin (Melatonin 3 Mg Tab) 3 mg PO HS PRN PRN Reason: Sleep Stop: 07/31/22 23:04 Last Admin: 07/08/22 00:25 Dose: 3 mg Miscellaneous (Remove Lidoderm Patch) 1 each N/A DAILY@2100 [facility] Stop: 07/30/22 20:59 Last Admin: 07/07/22 20:06 Dose: 1 each Miscellaneous (Remove Nicoderm Patch) 1 each N/A QAM [facility] Stop: 07/31/22 08:59 Last Admin: 07/08/22 08:59 Dose: 1 each Montelukast Sodium (Montelukast Sodium 10 Mg Tablet) 10 mg PO HS [facility] Stop: 07/30/22 20:59 Last Admin: 07/07/22 20:05 Dose: 10 mg Multivitamins (Multivitamin Tab) 1 tab PO QAM [facility] Stop: 07/31/22 08:59 Last Admin: 07/08/22 08:57 Dose: 1 tab Nicotine (Nicotine 14 Mg/24 Hr Patch) [facility] [place] Stop: 07/31/22 08:59 Last Admin: 07/08/22 08:58 Dose: 14 mg Ondansetron HCl (Ondansetron Inj 2 Mg/Ml 2 Ml Vial) 4 mg IV Q6H PRN PRN Reason: Nausea Stop: 07/30/22 19:51 Last Admin: 07/06/22 20:33 Dose: 4 mg Oxycodone HCl (Oxycodone Hcl Ir 5 Mg Tab (Immediate Release)) 5 mg PO QID PRN PRN Reason: Pain Stop: 07/14/22 20:41 Last Admin: 07/08/22 11:04 Dose: 5 mg Pantoprazole Sodium (Pantoprazole 40 Mg Tab) 40 mg PO BID [facility] Stop: 07/31/22 20:59 Last Admin: 07/08/22 08:54 Dose: 40 mg Polyethylene Glycol (Polyethylene (Miralax) 17 Gm Pack) 17 gm PO DAILY PRN PRN Reason: Constipation Stop: 07/30/22 19:51 Potassium Chloride (Potassium Chloride Crtab 20 Meq Tabcr) 20 [facility]q [facility] [place] Stop: 08/06/22 08:59 Last Admin: 07/08/22 08:52 Dose: 20 meq Potassium Phosphate (Pot Phosphate Monobasic W/ Sod Tab) 2 tab PO QID [facility] Stop: 07/30/22 20:59 Last Admin: 07/08/22 12:15 Dose: 2 tab Spironolactone (Spironolactone 100 Mg Tab) 200 mg PO QAM [facility] Stop: 08/06/22 08:59 Last Admin: 07/08/22 08:54 Dose: 200 mg Thiamine HCl (Thiamine Hcl 100 Mg Tab) 100 mg PO QAM [facility] Stop: 07/31/22 08:59 Last Admin: 07/08/22 08:58 Dose: 100 mg Umeclidinium Langtry (Umeclidinium Langtry 62.5mcg/Blister 7 Puffs/Inhaler) [facility] [place] Stop: 07/31/22 08:59 Last Admin: 07/08/22 12:14 Dose: 1 puffs Vitamin D (Cholecalciferol 1,000 Units 25 Mcg Tab) 2,000 units PO QAM [facility] Stop: 07/31/22 08:59 Last Admin: 07/08/22 08:54 Dose: 2,000 units (1) Cirrhosis Ascites presence: with ascites Hepatic cirrhosis type: alcoholic cirrhosis Qualified Code(s): K70.31 - Alcoholic cirrhosis of liver with ascites
[2022-07-08] MEDS: CYCLOBENZAPRINE HCL 5 MG TAB PO PRN (16:54)
[2022-07-08] MEDS: MONTELUKAST SODIUM 10 MG TABLET PO SCH (21:51)
[2022-07-09] MEDS: HYDROmorphone INJ 0.5 MG/0.5 ML SYR IV PRN ×4 (02:00→16:27)
[2022-07-09] MEDS: oxyCODONE HCL IR 5 MG TAB (IMMEDIATE RELEASE) PO PRN ×5 (03:07→23:51)
[2022-07-09] MEDS: hydrOXYzine HCl 25 MG TAB PO PRN ×3 (03:08→19:55)
[2022-07-09 07:07] LABS: Basophils # (auto) 0.02 K/uL (0-0.2); Basophils % (auto) 0.5 %; Eosinophils # (auto) 0.08 K/uL (0-0.50); Eosinophils % (auto) 2.2 %; Hematocrit (blood only) 23.2 % (34.1-44.9); Immature Granulocytes # (auto) 0.01 K/uL (0.00-0.02); Immature Granulocytes % (auto) 0.3 %; Lymphocytes # (auto) 0.88 K/uL (1.2-3.4); Lymphocytes % (auto) 23.8 %; Mean Platelet Volume 10.4 fL (9.4-12.3); Monocytes # (auto) 0.45 K/uL (0.24-0.82); Monocytes % (auto) 12.2 %; Neutrophils # (auto) 2.25 K/uL (1.4-6.5); Platelet Count 109 K/uL (130-400); White Blood Count 3.69 K/ul (4.8-10.8)
[2022-07-09 07:35] LABS: BUN Creatinine Ratio 5.8 (10-20); Calcium 8.9 mg/dl (8.5-10.1); Creatinine Clr Calc Pharmacy 48.5 ml/min; Est GFR (African American) 56.8 ml/min; Magnesium 1.7 mg/dl (1.7-2.4); Phosphorus 4.9 mg/dl (2.5-4.9); Potassium 3.2 mmol/L (3.5-5.1)
[2022-07-09] MEDS: Albuterol HFA 8 GM Inhaler (Combivent Respimat P&T Subs) INH SCH ×2 (07:38→19:42)
[2022-07-09] MEDS: Ipratropium HFA Inhaler (Combivent Respimat P&T Subs) INH SCH ×2 (07:39→19:42)
[2022-07-09] MEDS: AMPHETAMINE ASP/SULF/DEXTRAMPH 5 MG TAB PO SCH ×2 (07:50→21:01)
[2022-07-09] MEDS: UMECLIDINIUM BROMIDE 62.5MCG/BLISTER 7 PUFFS/INHALER INH SCH (07:51)
[2022-07-09] MEDS: FLUTICASONE/VILANTEROL 200/25MCG 14 PUFFS/INHALER INH SCH (07:51)
[2022-07-09] MEDS: FLUTICASONE PROPIONATE NA SPR 16 GM BTL NAE SCH ×2 (07:51→19:56)
[2022-07-09] MEDS: POT PHOSPHATE MONOBASIC W/ SOD TAB PO SCH ×4 (07:52→19:57)
[2022-07-09] MEDS: POTASSIUM CHLORIDE CRTAB 20 MEQ TABCR PO SCH (07:52)
[2022-07-09] MEDS: MAGNESIUM OXIDE 400 MG TAB PO SCH ×2 (07:53→19:57)
[2022-07-09] MEDS: FUROSEMIDE 80 MG TAB PO SCH (07:53)
[2022-07-09] MEDS: THIAMINE HCL 100 MG TAB PO SCH (07:53)
[2022-07-09] MEDS: LORATADINE 10 MG TAB PO SCH (07:54)
[2022-07-09] MEDS: SPIRONOLACTONE 100 MG TAB PO SCH (07:54)
[2022-07-09] MEDS: CHOLECALCIFEROL 1,000 UNITS 25 MCG TAB PO SCH (07:54)
[2022-07-09] MEDS: MULTIVITAMIN TAB PO SCH (07:54)
[2022-07-09] MEDS: PANTOprazole 40 MG TAB PO SCH ×2 (07:54→19:57)
[2022-07-09 07:55] LABS: Mean Corpuscular Hemoglobin 29.2 pg (25.0-34.0); Mean Corpuscular Hgb Conc 34.5 g/dL (32.0-36.0); Mean Corpuscular Volume 84.7 fL (80.0-100.0); RDW Coefficient of Variation 14.6 % (11.5-14.5); RDW Standard Deviation 43.9 fL (36.4-46.3); Red Blood Count 2.74 M/uL (3.93-5.22); Target Cells 1+
[2022-07-09] MEDS: NICOTINE 14 MG/24 HR PATCH TD SCH (07:55)
[2022-07-09] MEDS: LACTULOSE SYRUP 20 GM/30 ML UDC PO SCH (07:55)
[2022-07-09] MEDS: ASCORBIC ACID 500 MG TAB PO SCH (07:55)
[2022-07-09] MEDS: LIDOCAINE 5% 1 PATCH TD SCH (07:55)
[2022-07-09] MEDS: DICLOFENAC SOD 1% GEL 100 GM TUBE EXT SCH ×3 (08:02→19:55)
[2022-07-09] MEDS: CYCLOBENZAPRINE HCL 5 MG TAB PO PRN ×2 (09:26→17:25)
[2022-07-09] MEDS ORDERED: POTASSIUM CHLORIDE CRTAB 20 MEQ TABCR PO STA (10:05)
--- NOTE | 2022-07-09 10:10 | CT Scan Report ---
HEAD CT NONCONTRAST CT DOSE: 638.56 mGycm HISTORY: s/p fall, head trauma TECHNIQUE: Multiaxial CT images of the head were performed without the use of intravenous contrast. A utomated exposure control was utilized for this study. A dose lowering technique was utilized adheri ng to the principles of ALARA. Comparison: Head CT 06/30/2022. Findings: The paranasal sinuses and mastoid air cells are clear. The calvarium and skull base are int act. The ventricles and sulci are within normal limits. There is no mass, hematoma, midline shift, or acute infarct. Impression: No acute intracranial abnormality. ACT 112: Negative or not required by law. Electronically signed by: Weston Cisneros M.D. 07/09/2022 10:09 AM
[2022-07-09] MEDS: ONDANSETRON INJ 2 MG/ML 2 ML VIAL IV PRN (13:16)
--- NOTE | 2022-07-09 15:57 | Hospitalist Progress Note ---
Date of Service July 09, 2022 Assessment & Plan (1) Fall: (2) Closed rib fracture: (3) VAN (acute kidney injury): (4) Alcohol intoxication: (5) Alcohol use disorder: (6) Generalized anxiety disorder: (7) Cirrhosis: (8) Depression: (9) ADD (attention deficit disorder): (10) Asthma: Plan Per Dr. Mayfield's notes with addendum: 37yo F with a PMH of alcoholic cirrhosis with ascites, continued severe alcohol dependence, ADD, depression, anxiety and other medical problems listed below who presents after fall at home on the morning of the day of arrival. She is being managed for the following: Fall Rib fractures-posterior right ninth and 10th ribs without any pneumothorax and or hematoma Patient came in with complaint of fall in the shower, patient relapsed on drinking, patient hit her head/forehead/back/right side of her body. Head CT, cervical spine, thoracic, lumbar, abd/pelvis, chest CTs performed - evidence of acute nondisplaced fractures involving the posterior medial aspects of the right ninth and 10th ribs. Otherwise no traumatic injuries noted Lidocaine patch, ice, Tylenol for rib fractures. Can use Voltaren gel. Has been getting intravenous Dilaudid and also oral oxycodone on top of above medications Pain is not yet reasonably controlled-Dilaudid frequency has been increased Pain is worse and Dilaudid doses have been increased We will get PT and OT evaluation Rib pain seems to be controlled Pain is reasonably controlled Not yet ready to be discharged Continue with PT and likely discharge tomorrow Family advised that she will not be given any extra pain medications on discharge besides the oral narcotics that she is getting 07/09 Discussed pain management with patient Encouraged to wean off from IV Dilaudid to avoid side effects, dependence Patient agreeable, we will change IV Dilaudid from every 4, now every 6 hours as needed Continue as needed oxycodone Patient declining Tylenol, avoiding NSAIDs secondary to history of liver cirrhosis Continue Lidoderm patch Will consult pain management Repeat CT head this morning: No acute finding Right lower quadrant pain Associated nausea and feverish Locally tender Will have CT of the abdomen with contrast to rule out appendicitis-Ruled out Minimal abdominal pain and no more hematochezia Still has right-sided abdominal pain Will get ultrasound of the abdomen on Thursday Ultrasound of the abdomen in the morning to rule out any significant ascites Ultrasound did not show enough fluid in the abdomen to be drained Abdomen remains soft and tenderness is improved 07/09 Resolved Acute renal failure Creatinine elevated at 2.57 (baseline ~0.8) Poor oral intake given prolonged N/V and still taking Lasix and spironolactone for cirrhosis Holding diuretics for now, IV fluids, creatinine trending down. Avoid nephrotoxic agents, lasix and aldactone held. Creatinine has been improving and as of this morning is 1.73 Kidney function is improved further We will need to have cautious amount of intravenous fluid due to use of contrast media Kidney function is improved-renal function has been normalized creatinine stable at 1.3 Potassium 3.2, replaced Alcoholic cirrhosis Intractable nausea/vomiting Patient with history of cirrhosis, following with Marly VILLAFUERTE Left 2-month inpatient alcohol treatment facility 4 days ago [employer]ACH[employer] REPA[employer] and resumed drinking the day before arrival Worsened nausea and vomiting with poor appetite while at treatment center, reports some hematemesis but none for the past week GI evaluated, no indication for scope for now, advance diet as tolerated. Patient reports improving nausea and vomiting, and is tolerating diet. Continue with PPI, antiemetics as needed Still has nausea likely secondary to gastritis Has has had hematochezia-stopped No coffee-ground vomiting Will monitor CBC-hemoglobin is dropped to 7.8 We will recheck tomorrow will restart Lasix and Spironolactone Continue with current medications Strongly advised to quit alcohol 07/09 Had some nausea and an episode of vomiting this afternoon Resolved Informed patient this may be related to IV Dilaudid, encouraged to be weaned off Patient agreeable Continued severe alcoholic dependence Endorsing last drinks on the morning of arrival before 0900. Ethyl alcohol level 253 at admission. Placed on alcohol withdrawal protocol. Patient advised against any use of alcoholic drinks in future. CM to assist w/ outpatient resources regarding alcoholic cessation help. ADD Continue Adderall History of tobacco use Continue nicotine patch Asthma Stable; continue home inhalers DVT Ppx: SCDs Low platelet with risk of bleeding Increase ambulation Code status: FULL PCP: Ritu Dispo: Anticipate discharge to home when medically stable, pain controlled and off IV Dilaudid Admission and Anticipated Discharge Date Admission Date: June 30, 2022 Subjective Follow-up for rib fractures, etc. Seen with RN currently at the bedside throughout whole encounter Seen resting in bed, not in distress States she is still having significant right rib pain No shortness of breath, cough or fevers or chills This morning, her foot got caught, and subsequently fell, hit her forehead Denies dizziness, loss of consciousness No other pain No other symptoms Review of Systems Review of Systems: all noted and negative except for above Physical Exam Physical Exam: General- oriented x 3, not in distress, speaks in sentences with no effort or accessory muscle use Eyes- anicteric Neck- no JVD Lungs- clear breath sounds bilaterally, no crackles or wheezing Positive tenderness right lower rib area Heart- normal rate, regular rhythm; no murmurs Abdomen- normal bowel sounds, nondistended, soft, nontender Extremities- no pretibial edema, no calf tenderness Neuro- alert, oriented x 3; no gross focal neurologic deficits Skin- warm & dry Results & Data Results & Data ([facility]) Vital Signs (Past 12 Hours) Vital Signs Temp Pulse Pulse Resp BP Pulse Ox O2 Del Method 07/09/22 15:44 88 07/09/22 11:34 36.7 C 78 18 110/71 94 Room Air 07/09/22 08:00 75 07/09/22 08:52 36.9 C 80 18 108/69 93 Room Air 07/09/22 07:39 76 16 94 Room Air 07/09/22 07:21 36.7 C 76 17 107/69 94 Room Air all noted and reviewed including below (1) Cirrhosis Ascites presence: with ascites Hepatic cirrhosis type: alcoholic cirrhosis Qualified Code(s): K70.31 - Alcoholic cirrhosis of liver with ascites
[2022-07-09] MEDS: MONTELUKAST SODIUM 10 MG TABLET PO SCH (19:56)
[2022-07-10] MEDS: HYDROmorphone INJ 0.5 MG/0.5 ML SYR IV PRN ×2 (01:05→08:45)
[2022-07-10] MEDS: Albuterol HFA 8 GM Inhaler (Combivent Respimat P&T Subs) INH SCH ×2 (07:48→18:15)
[2022-07-10] MEDS: Ipratropium HFA Inhaler (Combivent Respimat P&T Subs) INH SCH ×2 (07:48→18:15)
[2022-07-10] MEDS: AMPHETAMINE ASP/SULF/DEXTRAMPH 5 MG TAB PO SCH ×2 (08:46→19:53)
[2022-07-10] MEDS: hydrOXYzine HCl 25 MG TAB PO PRN ×2 (08:46→13:29)
[2022-07-10] MEDS: POTASSIUM CHLORIDE CRTAB 20 MEQ TABCR PO SCH (08:51)
[2022-07-10] MEDS: PANTOprazole 40 MG TAB PO SCH ×2 (08:51→19:55)
[2022-07-10] MEDS: FLUTICASONE PROPIONATE NA SPR 16 GM BTL NAE SCH ×2 (08:52→19:57)
[2022-07-10] MEDS: FLUTICASONE/VILANTEROL 200/25MCG 14 PUFFS/INHALER INH SCH (08:52)
[2022-07-10] MEDS: UMECLIDINIUM BROMIDE 62.5MCG/BLISTER 7 PUFFS/INHALER INH SCH (08:52)
--- NOTE | 2022-07-10 09:11 | Pain Management Consultation ---
Date of Consultation July 10, 2022 Assessment & Plan (1) Closed rib fracture: (2) Acute chest wall pain: (3) VAN (acute kidney injury): (4) Alcohol use disorder: Plan 1. Will discontinue IV hydromorphone after discussion with the patient and she was agreeable 2. Patient may continue with Oxy IR 5 mg 4 times daily as needed for breakthrough pain. Would limit utilization of opiate therapy upon discharge due to her history of comorbid alcohol abuse 3. Will initiate gabapentin 300 mg twice daily side effects versus benefits reviewed with patient and she verbalized understanding. 4. Will discontinue cyclobenzaprine and initiate baclofen 10 mg twice daily 5. Continue with Lidoderm patch 6. Patient is not currently a candidate for intercostal nerve block which was briefly discussed at today's visit. Should she have persisting chronic difficulties with chest wall pain associated with rib fracture intercostal nerve block/RFA could be considered in the outpatient setting. Pain service will sign off on patient at this time. Please contact us for reevaluation as needed. History of Present Illness Reason for Consultation: Chest wall pain with history of rib fracture x2 Requesting Physician: Tyrel Chahal MD Attending Physician: Tyrel Chahal MD History of Present Illness Mrs. Burr is a 37-year-old white female admitted on 06/30/2022 with VAN, alcohol intoxication and a fall with closed rib fractures. Patient has a past medical history significant for alcohol withdrawal, alcohol abuse, anxiety, asthma, cirrhosis and ADD. She was recently in inpatient alcohol rehab x2 months and discharge approximately 3 to 4 days prior to her admission. She resumed drinking and reportedly had a fall in the home striking her chest wall and head. She was complaining of pain in the mid thoracic spine wrapping around the right chest wall and was found to have evidence of nondisplaced rib fracture of the mid right ninth and 10th rib. She is continue to complain of pain in the right posterior lateral chest wall with some radiation towards the right gluteal region which she describes as sharp in characteristic. She reports her pain is fairly constant but aggravated with movement, deep breathing or coughing. She reports her asthma is well controlled and denies any recent difficulties with cough or shortness of breath. She has been relying on IV hydromorphone upon this admission between 3-3.5 mg in 24 hours. She reports it is effective at controlling her pain lasting approximately 3 hours only. Patient rates the pain a 6-10/10. Ethyl alcohol level was 253 upon admission. She is unable to definitively recall use of gabapentin, but did report she was previously prescribed a medication but it was stopped for unknown reasons. She denies benefit from Flexeril. She denies pain radiating into the lower extremities and no lumbar radicular pattern pain complaint. She denies bowel or bladder incontinence or saddle anesthesia. Patient has no further constitutional complaints. Plan of care discussed with Dr. Rose Marie Power. Pain Assessment Full Body Front + Back: 1. Right posterior lateral lower chest wall/flank 2. Right lateral and anterior chest wall Pain scale - at its best (0-10): 6 Pain scale - at its worst (0-10): 9 Allergies Allergy/AdvReac Type Severity Reaction Status Date / Time banana Allergy Intermediate RASH, Verified 04/22/22 07:49 THROAT SLIGHTLY SWOLLEN Penicillins Allergy Unknown HAPPENED Verified 04/22/22 07:49 A CHILD Home Medications Medication Instructions Recorded Confirmed Type albuterol sulfate 90 mcg/actuation 2 inh inhalation BID PRN Shortness 06/24/20 06/30/22 History aerosol inhaler (ProAir HFA) Of Breath budesonide-formoterol HFA 160 2 puff inhalation BID 06/20/21 06/30/22 History mcg-4.5 mcg/actuation aerosol inhaler (Symbicort) dextroamphetamine-amphetamine 5 mg 5 mg PO BID 06/20/21 06/30/22 History tablet (Adderall) ipratropium 20 mcg-albuterol 100 1 puff inhalation BID 06/20/21 06/30/22 History mcg/actuation mist for inhalation (Combivent Respimat) loratadine 10 mg tablet 10 mg PO QAM 06/20/21 06/30/22 History montelukast 10 mg tablet 10 mg PO HS 06/20/21 06/30/22 History omeprazole 20 mg capsule,delayed 20 mg PO QAM 06/20/21 06/30/22 History release azelastine 137 mcg (0.1 %) nasal 1 spray intranasal BID 10/03/21 06/30/22 Histor y spray aerosol fluticasone propionate 50 2 spray intranasal BID 10/03/21 06/30/22 History mcg/actuation nasal spray,suspension multivitamin 1 tab PO QAM 10/03/21 06/30/22 History ondansetron HCl 4 mg tablet 4 mg PO Q8H PRN Nausea 10/31/21 06/30/22 History furosemide 40 mg tablet (Lasix) 80 mg PO QAM 11/20/21 06/30/22 History ascorbic acid (vitamin C) 500 mg 500 mg PO QAM 01/31/22 06/30/22 History tablet (Vitamin C) cholecalciferol (vitamin D3) 50 2,000 mcg PO QAM 01/31/22 06/30/22 History mcg (2,000 unit) capsule (Vitamin D3) hydroxyzine HCl 25 mg tablet 25 mg PO TID PRN Anxiety 01/31/22 06/30/22 History spironolactone 100 mg tablet 200 mg PO QAM 01/31/22 06/30/22 History tiotropium bromide 2.5 2 puff inhalation BID 01/31/22 06/30/22 History mcg/actuation mist for inhalation (Spiriva Respimat) thiamine HCl (vitamin B1) 100 mg 100 mg PO QAM #30 tabs 03/23/22 06/30/22 Rx tablet magnesium oxide 400 mg (241.3 mg 400 mg PO BID 03/25/22 06/30/22 History magnesium) tablet potassium chloride 20 mEq 20 meq PO QAM 03/25/22 06/30/22 History tablet,extended release sodium di- and 2 tab PO QID 03/25/22 06/30/22 History monophosphate-potassium phos monobasic 250 mg tablet (Phospha 250 Neutral) lactulose 10 gram/15 mL oral 30 ml PO QAM 04/17/22 06/30/22 History solution nicotine 14 mg/24 hr daily 1 patch transdermal DAILY 04/17/22 06/30/22 History transdermal patch Pain History Pain Intensity Pain scale - at its best (0-10): 6 Pain scale - at its worst (0-10): 9 Patient History Medical History (Updated 07/10/22 @ 09:27 by Anderw Meza PA-C) Acute chest wall pain Acute hyponatremia Acute on chronic alcoholic liver disease ADD (attention deficit disorder) Alcohol abuse Alcohol abuse Alcohol intoxication Alcoholic cirrhosis with abn coags Alcoholic hepatitis Anemia pre-op H&H 04/15/22: 05/15 Anxiety Asthma well controlled with inhalers Decompensated hepatic cirrhosis Depression Fatty liver GERD (gastroesophageal reflux disease) History of abdominal paracentesis History of pancreatitis alcoholic 05/2021 per records Hyperbilirubinemia Hypokalemia Hypomagnesemia Jaundice Pneumonia February 2022 treated at [facility]. denies sob currently Portal hypertension Thrombocytopenia Surgical History H/O wisdom tooth extraction History of esophagogastroduodenoscopy (EGD) Family History Grandmother Breast cancer Grandfather Heart disease Other No family history of adverse response to anesthesia Social History Smoking Status: Never smoker Tobacco Type: Cigarettes Cigarettes Per Day: 1-2; Second Hand Exposure: Yes; Hx Alcohol Use: Yes Alcohol type: beer Hx Substance Use: No Preferred Language: Slovenian 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 Ability: Effective Director Of Donor Relations Required: No Beliefs That Will Affect Care: None marital status: Single Current Living Situation: Family Current Living Situation Comment: Apartment current occupational status: employed How many Children do You have: 0 Other Information That Helps Us Care for You: No Feels Safe at Home: Yes Safety Concerns: Feels Safe At This Time Assistive Devices: None Physical Exam Physical Exam: General: Patient lying quietly in exam room in no acute distress. Speech and thought process appropriate. Mood and affect appropriate. Cognition intact. Head: Normocephalic and atraumatic. ENT: No evidence of nasal or oral mucosal lesions. Mucous membranes are moist. Eyes: Pupils equal round reactive to light. Neck: Supple without adenopathy and full range of motion. Chest: Nontender to palpation of the costosternal junction. Patient is tender to direct palpation over the right posterior lateral lower chest wall. Patient has areas of ecchymosis in the right posterior lower chest wall extending into the flank. Patient tender with AP and lateral compression of the lower chest wall. Right IJ Vipeyf-d-Upyl catheter present. Thoracic spine: Nontender over the midline. Patient able to logroll towards her left without limitation and no obvious discomfort. Patient is nontender over the thoracic paravertebral or quadratus lumborum musculature. Lungs: Clear to auscultation no wheeze or rhonchi. Abdomen: Soft and nondistended. No organomegaly. Bowel sounds active. Back/spine: Nontender over the midline. No focal facet or SI joint tenderness. Lower extremities: SLR negative bilaterally. Strength testing 5/5 and equal. Sensation intact without deficit. Neurologic: Cranial nerves grossly intact. Ambulatory function not witnessed.
[2022-07-10 10:09] LABS: Calcium 9.2 mg/dl (8.5-10.1); Creatinine Clr Calc Pharmacy 44.6 ml/min; Est GFR (African American) 51.4 ml/min; Est GFR (Non-African American) 44.3 ml/min; Magnesium 1.7 mg/dl (1.7-2.4); Phosphorus 4.5 mg/dl (2.5-4.9); Potassium 3.4 mmol/L (3.5-5.1)
[2022-07-10] MEDS: ONDANSETRON INJ 2 MG/ML 2 ML VIAL IV PRN (10:17)
[2022-07-10] MEDS: HEPARIN 100 UNIT/ML 5ML FLUSH FLUSH PRN ×2 (10:22→14:53)
[2022-07-10] MEDS: oxyCODONE HCL IR 5 MG TAB (IMMEDIATE RELEASE) PO PRN ×3 (10:26→18:26)
[2022-07-10] MEDS: POT PHOSPHATE MONOBASIC W/ SOD TAB PO SCH ×4 (10:26→19:56)
[2022-07-10] MEDS: MAGNESIUM OXIDE 400 MG TAB PO SCH ×2 (10:27→19:55)
[2022-07-10] MEDS: ASCORBIC ACID 500 MG TAB PO SCH (10:27)
[2022-07-10] MEDS: CHOLECALCIFEROL 1,000 UNITS 25 MCG TAB PO SCH (10:27)
[2022-07-10] MEDS: MULTIVITAMIN TAB PO SCH (10:27)
[2022-07-10] MEDS: FUROSEMIDE 80 MG TAB PO SCH (10:27)
[2022-07-10] MEDS: LORATADINE 10 MG TAB PO SCH (10:27)
[2022-07-10] MEDS: THIAMINE HCL 100 MG TAB PO SCH (10:27)
[2022-07-10] MEDS: SPIRONOLACTONE 100 MG TAB PO SCH (10:27)
[2022-07-10] MEDS: NICOTINE 14 MG/24 HR PATCH TD SCH (10:28)
[2022-07-10] MEDS: LIDOCAINE 5% 1 PATCH TD SCH (10:28)
[2022-07-10] MEDS: LACTULOSE SYRUP 20 GM/30 ML UDC PO SCH (10:28)
[2022-07-10] MEDS ORDERED: GABAPENTIN 300 MG CAP PO STA (10:48)
[2022-07-10] MEDS ORDERED: BACLOFEN 10 MG TAB PO ONE (10:49)
[2022-07-10] MEDS: DICLOFENAC SOD 1% GEL 100 GM TUBE EXT SCH ×3 (13:29→19:57)
[2022-07-10] MEDS ORDERED: HYDROmorphone INJ 0.5 MG/0.5 ML SYR IV STA (14:31)
--- NOTE | 2022-07-10 17:26 | Hospitalist Progress Note ---
Date of Service July 10, 2022 Assessment & Plan (1) Fall: (2) Closed rib fracture: (3) VAN (acute kidney injury): (4) Alcohol intoxication: (5) Alcohol use disorder: (6) Generalized anxiety disorder: (7) Cirrhosis: (8) Depression: (9) ADD (attention deficit disorder): (10) Asthma: Plan Per Dr. Mayfield's notes with addendum: 37yo F with a PMH of alcoholic cirrhosis with ascites, continued severe alcohol dependence, ADD, depression, anxiety and other medical problems listed below who presents after fall at home on the morning of the day of arrival. She is being managed for the following: Fall Rib fractures-posterior right ninth and 10th ribs without any pneumothorax and or hematoma Patient came in with complaint of fall in the shower, patient relapsed on drinking, patient hit her head/forehead/back/right side of her body. Head CT, cervical spine, thoracic, lumbar, abd/pelvis, chest CTs performed - evidence of acute nondisplaced fractures involving the posterior medial aspects of the right ninth and 10th ribs. Otherwise no traumatic injuries noted Lidocaine patch, ice, Tylenol for rib fractures. Can use Voltaren gel. Has been getting intravenous Dilaudid and also oral oxycodone on top of above medications Pain is not yet reasonably controlled-Dilaudid frequency has been increased Pain is worse and Dilaudid doses have been increased We will get PT and OT evaluation Rib pain seems to be controlled Pain is reasonably controlled Not yet ready to be discharged Continue with PT and likely discharge tomorrow Family advised that she will not be given any extra pain medications on discharge besides the oral narcotics that she is getting 07/09 Discussed pain management with patient Encouraged to wean off from IV Dilaudid to avoid side effects, dependence Patient agreeable, we will change IV Dilaudid from every 4, now every 6 hours as needed Continue as needed oxycodone Patient declining Tylenol, avoiding NSAIDs secondary to history of liver cirrhosis Continue Lidoderm patch Will consult pain management Repeat CT head this morning: No acute finding 07/10 Pain management consulted Recommend to DC IV Dilaudid, Flexeril Recommending gabapentin twice daily, baclofen twice daily 1 dose IV Dilaudid 0.5 mg given for severe pain Continue to monitor Right lower quadrant pain Associated nausea and feverish Locally tender Will have CT of the abdomen with contrast to rule out appendicitis-Ruled out Minimal abdominal pain and no more hematochezia Still has right-sided abdominal pain Will get ultrasound of the abdomen on Thursday Ultrasound of the abdomen in the morning to rule out any significant ascites Ultrasound did not show enough fluid in the abdomen to be drained Abdomen remains soft and tenderness is improved 07/10 Resolved Acute renal failure Creatinine elevated at 2.57 (baseline ~0.8) Poor oral intake given prolonged N/V and still taking Lasix and spironolactone for cirrhosis Holding diuretics for now, IV fluids, creatinine trending down. Avoid nephrotoxic agents, lasix and aldactone held. Creatinine has been improving and as of this morning is 1.73 Kidney function is improved further We will need to have cautious amount of intravenous fluid due to use of contrast media Kidney function is improved-renal function has been normalized 07/10 Creatinine 1.5 Potassium 3.4 Alcoholic cirrhosis Intractable nausea/vomiting Patient with history of cirrhosis, following with [facility] Left 2-month inpatient alcohol treatment facility 4 days ago [employer] and resumed drinking the day before arrival Worsened nausea and vomiting with poor appetite while at treatment center, reports some hematemesis but none for the past week GI evaluated, no indication for scope for now, advance diet as tolerated. Patient reports improving nausea and vomiting, and is tolerating diet. Continue with PPI, antiemetics as needed Still has nausea likely secondary to gastritis Has has had hematochezia-stopped No coffee-ground vomiting Will monitor CBC-hemoglobin is dropped to 7.8 We will recheck tomorrow will restart Lasix and Spironolactone Continue with current medications Strongly advised to quit alcohol 07/10 Had some nausea and an episode of vomiting this afternoon Resolved Informed patient this may be related to IV Dilaudid, encouraged to be weaned off Patient agreeable Continued severe alcoholic dependence Endorsing last drinks on the morning of arrival before 0900. Ethyl alcohol level 253 at admission. Placed on alcohol withdrawal protocol. Patient advised against any use of alcoholic drinks in future. CM to assist w/ outpatient resources regarding alcoholic cessation help. ADD Continue Adderall History of tobacco use Continue nicotine patch Asthma Stable; continue home inhalers DVT Ppx: SCDs Low platelet with risk of bleeding Increase ambulation Code status: FULL PCP: Ritu Dispo: Anticipate discharge to home when medically stable, pain controlled and off IV Dilaudid Admission and Anticipated Discharge Date Admission Date: June 30, 2022 Subjective Follow-up for rib fracture, status post fall, etc. Seen resting in bed, not in distress States she still having significant pain today on her rib fracture area Requesting for stronger pain medications Denies shortness of breath, palpitations, dizziness No other new symptom Review of Systems Review of Systems: all noted and negative except for above Physical Exam Physical Exam: General- oriented x 3, not in distress, speaks in sentences with no effort or accessory muscle use Eyes- anicteric Neck- no JVD Lungs- clear breath sounds bilaterally, no rales/wheezes Heart- normal rate, regular rhythm; no murmurs Abdomen- normal bowel sounds, nondistended, soft, nontender Extremities- no pretibial edema, no calf tenderness Neuro- alert, oriented x 3; no gross focal neurologic deficits Skin- warm & dry Results & Data Results & Data ([facility]) Vital Signs (Past 12 Hours) Vital Signs Temp Pulse Resp BP Pulse Ox O2 Del Method FiO2 07/10/22 14:48 37 C 85 16 103/70 96 Room Air 07/10/22 08:28 36.9 C 77 18 103/67 96 Room Air 07/10/22 07:48 74 12 95 Room Air 21 all noted and reviewed including below (1) Cirrhosis Ascites presence: with ascites Hepatic cirrhosis type: alcoholic cirrhosis Qualified Code(s): K70.31 - Alcoholic cirrhosis of liver with ascites
[2022-07-10] MEDS: BACLOFEN 10 MG TAB PO SCH (19:54)
[2022-07-10] MEDS: MONTELUKAST SODIUM 10 MG TABLET PO SCH (19:54)
[2022-07-10] MEDS: GABAPENTIN 300 MG CAP PO SCH (19:55)
[2022-07-11] MEDS: hydrOXYzine HCl 25 MG TAB PO PRN ×3 (00:33→15:01)
[2022-07-11] MEDS: oxyCODONE HCL IR 5 MG TAB (IMMEDIATE RELEASE) PO PRN ×4 (00:33→22:29)
[2022-07-11] MEDS: Ipratropium HFA Inhaler (Combivent Respimat P&T Subs) INH SCH ×2 (07:01→20:46)
[2022-07-11] MEDS: Albuterol HFA 8 GM Inhaler (Combivent Respimat P&T Subs) INH SCH ×2 (07:01→20:46)
[2022-07-11] MEDS: LIDOCAINE 5% 1 PATCH TD SCH (08:11)
[2022-07-11] MEDS: DICLOFENAC SOD 1% GEL 100 GM TUBE EXT SCH ×3 (08:11→22:34)
[2022-07-11] MEDS ORDERED: HYDROmorphone INJ 0.5 MG/0.5 ML SYR IV STA ×2 (08:49→17:38)
[2022-07-11] MEDS: FUROSEMIDE 80 MG TAB PO SCH (08:55)
[2022-07-11] MEDS: PANTOprazole 40 MG TAB PO SCH ×2 (08:55→22:32)
[2022-07-11] MEDS: ASCORBIC ACID 500 MG TAB PO SCH (08:56)
[2022-07-11] MEDS: CHOLECALCIFEROL 1,000 UNITS 25 MCG TAB PO SCH (08:56)
[2022-07-11] MEDS: FLUTICASONE PROPIONATE NA SPR 16 GM BTL NAE SCH ×2 (08:56→22:34)
[2022-07-11] MEDS: BACLOFEN 10 MG TAB PO SCH ×2 (08:56→22:33)
[2022-07-11] MEDS: LACTULOSE SYRUP 20 GM/30 ML UDC PO SCH (08:57)
[2022-07-11] MEDS: FLUTICASONE/VILANTEROL 200/25MCG 14 PUFFS/INHALER INH SCH (08:57)
[2022-07-11] MEDS: LORATADINE 10 MG TAB PO SCH (08:57)
[2022-07-11] MEDS: GABAPENTIN 300 MG CAP PO SCH ×2 (08:57→22:34)
[2022-07-11] MEDS: POT PHOSPHATE MONOBASIC W/ SOD TAB PO SCH ×4 (08:58→22:32)
[2022-07-11] MEDS: MAGNESIUM OXIDE 400 MG TAB PO SCH ×2 (08:58→22:33)
[2022-07-11] MEDS: MULTIVITAMIN TAB PO SCH (08:58)
[2022-07-11] MEDS: NICOTINE 14 MG/24 HR PATCH TD SCH (08:58)
[2022-07-11] MEDS: SPIRONOLACTONE 100 MG TAB PO SCH (08:59)
[2022-07-11] MEDS: UMECLIDINIUM BROMIDE 62.5MCG/BLISTER 7 PUFFS/INHALER INH SCH (08:59)
[2022-07-11] MEDS: THIAMINE HCL 100 MG TAB PO SCH (08:59)
[2022-07-11] MEDS: AMPHETAMINE ASP/SULF/DEXTRAMPH 5 MG TAB PO SCH ×2 (09:07→22:29)
[2022-07-11] MEDS: POTASSIUM CHLORIDE CRTAB 20 MEQ TABCR PO SCH (09:07)
[2022-07-11] MEDS: HEPARIN 100 UNIT/ML 5ML FLUSH FLUSH PRN (09:08)
[2022-07-11 10:23] LABS: BUN Creatinine Ratio 7.1 (10-20); Calcium 9.4 mg/dl (8.5-10.1); Est GFR (Non-African American) 35.4 ml/min; Magnesium 1.9 mg/dl (1.7-2.4); Phosphorus 4.9 mg/dl (2.5-4.9); Potassium 3.9 mmol/L (3.5-5.1)
--- NOTE | 2022-07-11 16:51 | XRay Report ---
PA CHEST WITH RIGHT-SIDED RIB SERIES CLINICAL HISTORY: Follow-up rib fractures. FINDINGS: A PA chest radiograph with 4 additional views from a right sided rib series is compared to radiographs and chest CT dated 06/30/2022. A right internal jugular central medicine infusion port is unchanged in position. The cardiomediastinal silhouette is unremarkable. The lungs and pleural space s are clear noting bibasilar atelectasis. No pneumothorax is seen. There is no radiographic evidence of acute/displaced right-sided rib fracture on the rib series. There are chronic/healed left-sided ri b fractures. There is thoracolumbar scoliosis. IMPRESSION: 1 No active disease in the chest. 2. There is no radiographic evidence of acute/displaced right-sided rib fracture in the rib series. S ubtle fractures questioned by CT are not apparent on x-ray. ACT 112: Negative or not required by law. Electronically signed by: Brodie Gillis M.D. 07/11/2022 4:49 PM
--- NOTE | 2022-07-11 17:19 | Hospitalist Progress Note ---
Date of Service July 11, 2022 Assessment & Plan (1) Fall: (2) Closed rib fracture: (3) VAN (acute kidney injury): (4) Alcohol intoxication: (5) Alcohol use disorder: (6) Generalized anxiety disorder: (7) Cirrhosis: (8) Depression: (9) ADD (attention deficit disorder): (10) Asthma: Plan Per Dr. Mayfield's notes with addendum: 37yo F with a PMH of alcoholic cirrhosis with ascites, continued severe alcohol dependence, ADD, depression, anxiety and other medical problems listed below who presents after fall at home on the morning of the day of arrival. She is being managed for the following: Fall Rib fractures-posterior right ninth and 10th ribs without any pneumothorax and or hematoma Patient came in with complaint of fall in the shower, patient relapsed on drinking, patient hit her head/forehead/back/right side of her body. Head CT, cervical spine, thoracic, lumbar, abd/pelvis, chest CTs performed - evidence of acute nondisplaced fractures involving the posterior medial aspects of the right ninth and 10th ribs. Otherwise no traumatic injuries noted Lidocaine patch, ice, Tylenol for rib fractures. Can use Voltaren gel. Has been getting intravenous Dilaudid and also oral oxycodone on top of above medications Pain is not yet reasonably controlled-Dilaudid frequency has been increased Pain is worse and Dilaudid doses have been increased We will get PT and OT evaluation Rib pain seems to be controlled Pain is reasonably controlled Not yet ready to be discharged Continue with PT and likely discharge tomorrow Family advised that she will not be given any extra pain medications on discharge besides the oral narcotics that she is getting 07/09 Discussed pain management with patient Encouraged to wean off from IV Dilaudid to avoid side effects, dependence Patient agreeable, we will change IV Dilaudid from every 4, now every 6 hours as needed Continue as needed oxycodone Patient declining Tylenol, avoiding NSAIDs secondary to history of liver cirrhosis Continue Lidoderm patch Will consult pain management Repeat CT head this morning: No acute finding 07/10 Pain management consulted Recommend to DC IV Dilaudid, Flexeril Recommending gabapentin twice daily, baclofen twice daily 1 dose IV Dilaudid 0.5 mg given for severe pain Continue to monitor 07/11 Continue with as needed oxycodone Continue with gabapentin twice daily, baclofen twice daily Rib x-ray: Rib fractures not seen Right lower quadrant pain Associated nausea and feverish Locally tender Will have CT of the abdomen with contrast to rule out appendicitis-Ruled out Minimal abdominal pain and no more hematochezia Still has right-sided abdominal pain Will get ultrasound of the abdomen on Thursday Ultrasound of the abdomen in the morning to rule out any significant ascites Ultrasound did not show enough fluid in the abdomen to be drained Abdomen remains soft and tenderness is improved 07/11 Resolved Acute renal failure Creatinine elevated at 2.57 (baseline ~0.8) Poor oral intake given prolonged N/V and still taking Lasix and spironolactone for cirrhosis Holding diuretics for now, IV fluids, creatinine trending down. Avoid nephrotoxic agents, lasix and aldactone held. Creatinine has been improving and as of this morning is 1.73 Kidney function is improved further We will need to have cautious amount of intravenous fluid due to use of contrast media Kidney function is improved-renal function has been normalized 07/11 Creatinine increasing now at 1.8 Hold diuretics Start IV NSS at 80 cc/h Potassium 3.9 Alcoholic cirrhosis Intractable nausea/vomiting Patient with history of cirrhosis, following with [facility] Left 2-month inpatient alcohol treatment facility 4 days ago [employer] and resumed drinking the day before arrival Worsened nausea and vomiting with poor appetite while at treatment center, reports some hematemesis but none for the past week GI evaluated, no indication for scope for now, advance diet as tolerated. Patient reports improving nausea and vomiting, and is tolerating diet. Continue with PPI, antiemetics as needed Still has nausea likely secondary to gastritis Has has had hematochezia-stopped No coffee-ground vomiting Will monitor CBC-hemoglobin is dropped to 7.8 We will recheck tomorrow will restart Lasix and Spironolactone Continue with current medications Strongly advised to quit alcohol 07/09 Had some nausea and an episode of vomiting this afternoon Resolved Informed patient this may be related to IV Dilaudid, encouraged to be weaned off Patient agreeable 07/11 Nausea vomiting resolved Continued severe alcoholic dependence Endorsing last drinks on the morning of arrival before 0900. Ethyl alcohol level 253 at admission. Placed on alcohol withdrawal protocol. Patient advised against any use of alcoholic drinks in future. CM to assist w/ outpatient resources regarding alcoholic cessation help. ADD Continue Adderall History of tobacco use Continue nicotine patch Asthma Stable; continue home inhalers DVT Ppx: SCDs Low platelet with risk of bleeding Increase ambulation Code status: FULL PCP: Ritu Dispo: Anticipate discharge to home when medically stable, pain controlled and off IV Dilaudid Admission and Anticipated Discharge Date Admission Date: June 30, 2022 Subjective Follow-up for right rib fracture with persistent pain, etc. Seen resting in bed, not in distress, appears comfortable States she continues to have right-sided back pain About the same as yesterday No shortness of breath Also has spasms of the right abdominal area No other symptoms States she is ambulating well to the bathroom Review of Systems Review of Systems: all noted and negative except for above Physical Exam Physical Exam: General- oriented x 3, not in distress, speaks in sentences with no effort or accessory muscle use Eyes- anicteric Neck- no JVD Lungs- clear breath sounds bilaterally, no crackles Mild tenderness of the right 8-9 ribs area Heart- normal rate, regular rhythm; no murmurs Abdomen- normal bowel sounds, nondistended, soft, nontender Extremities- no pretibial edema, no calf tenderness Neuro- alert, oriented x 3; no gross focal neurologic deficits Skin- warm & dry Results & Data Results & Data ([facility]) Vital Signs (Past 12 Hours) Vital Signs Temp Pulse Resp BP Pulse Ox O2 Del Method 07/11/22 15:27 36.9 C 76 18 110/71 95 Room Air 07/11/22 07:52 36.9 C 88 16 105/68 98 Room Air 07/11/22 07:01 80 17 98 Room Air all noted and reviewed including below (1) Cirrhosis Ascites presence: with ascites Hepatic cirrhosis type: alcoholic cirrhosis Qualified Code(s): K70.31 - Alcoholic cirrhosis of liver with ascites
[2022-07-11] MEDS: SODIUM CHLORIDE 0.9% 1000ML 1,000 ML IV SCH (17:31)
[2022-07-11] MEDS: ONDANSETRON INJ 2 MG/ML 2 ML VIAL IV PRN (18:30)
[2022-07-11] MEDS: MONTELUKAST SODIUM 10 MG TABLET PO SCH (22:33)
[2022-07-12] MEDS: SODIUM CHLORIDE 0.9% 1000ML 1,000 ML IV SCH ×2 (05:47→17:59)
[2022-07-12] MEDS: Ipratropium HFA Inhaler (Combivent Respimat P&T Subs) INH SCH ×2 (07:14→19:26)
[2022-07-12] MEDS: Albuterol HFA 8 GM Inhaler (Combivent Respimat P&T Subs) INH SCH ×2 (07:14→19:26)
[2022-07-12] MEDS: oxyCODONE HCL IR 5 MG TAB (IMMEDIATE RELEASE) PO PRN ×3 (08:25→20:25)
[2022-07-12] MEDS: PANTOprazole 40 MG TAB PO SCH ×2 (08:26→20:26)
[2022-07-12] MEDS: ASCORBIC ACID 500 MG TAB PO SCH (08:26)
[2022-07-12] MEDS: GABAPENTIN 300 MG CAP PO SCH ×2 (08:26→20:34)
[2022-07-12] MEDS: LORATADINE 10 MG TAB PO SCH (08:26)
[2022-07-12] MEDS: LACTULOSE SYRUP 20 GM/30 ML UDC PO SCH (08:26)
[2022-07-12] MEDS: MAGNESIUM OXIDE 400 MG TAB PO SCH ×2 (08:26→20:35)
[2022-07-12] MEDS: POT PHOSPHATE MONOBASIC W/ SOD TAB PO SCH ×4 (08:26→20:26)
[2022-07-12] MEDS: AMPHETAMINE ASP/SULF/DEXTRAMPH 5 MG TAB PO SCH ×2 (08:26→20:27)
[2022-07-12] MEDS: CHOLECALCIFEROL 1,000 UNITS 25 MCG TAB PO SCH (08:26)
[2022-07-12] MEDS: MULTIVITAMIN TAB PO SCH (08:26)
[2022-07-12] MEDS: LIDOCAINE 5% 1 PATCH TD SCH (08:26)
[2022-07-12] MEDS: BACLOFEN 10 MG TAB PO SCH ×2 (08:26→20:27)
[2022-07-12] MEDS: THIAMINE HCL 100 MG TAB PO SCH (08:26)
[2022-07-12] MEDS: NICOTINE 14 MG/24 HR PATCH TD SCH (08:27)
[2022-07-12] MEDS: FLUTICASONE/VILANTEROL 200/25MCG 14 PUFFS/INHALER INH SCH (08:27)
[2022-07-12] MEDS: DICLOFENAC SOD 1% GEL 100 GM TUBE EXT SCH ×3 (08:28→20:27)
[2022-07-12] MEDS: FLUTICASONE PROPIONATE NA SPR 16 GM BTL NAE SCH ×2 (08:28→20:28)
[2022-07-12] MEDS: UMECLIDINIUM BROMIDE 62.5MCG/BLISTER 7 PUFFS/INHALER INH SCH (08:28)
[2022-07-12 10:08] LABS: Basophils # (auto) 0.03 K/uL (0-0.2); Basophils % (auto) 0.7 %; Eosinophils # (auto) 0.07 K/uL (0-0.50); Eosinophils % (auto) 1.7 %; Hematocrit (blood only) 25.5 % (34.1-44.9); Hemoglobin 8.7 g/dl (12.0-16.0); Immature Granulocytes # (auto) 0.01 K/uL (0.00-0.02); Immature Granulocytes % (auto) 0.2 %; Lymphocytes # (auto) 0.81 K/uL (1.2-3.4); Lymphocytes % (auto) 19.3 %; Mean Corpuscular Hemoglobin 29.4 pg (25.0-34.0); Mean Corpuscular Hgb Conc 34.1 g/dL (32.0-36.0); Mean Corpuscular Volume 86.1 fL (80.0-100.0); Mean Platelet Volume 10.3 fL (9.4-12.3); Monocytes # (auto) 0.52 K/uL (0.24-0.82); Monocytes % (auto) 12.4 %; Neutrophils # (auto) 2.75 K/uL (1.4-6.5); Neutrophils % (auto) 65.7 %; Platelet Count 132 K/uL (130-400); RDW Coefficient of Variation 16.8 % (11.5-14.5); RDW Standard Deviation 49.9 fL (36.4-46.3); Red Blood Count 2.96 M/uL (3.93-5.22); White Blood Count 4.19 K/ul (4.8-10.8)
[2022-07-12 10:49] LABS: Calcium 9.2 mg/dl (8.5-10.1); Creatinine Clr Calc Pharmacy 40.3 ml/min; Est GFR (African American) 45.5 ml/min; Est GFR (Non-African American) 39.2 ml/min
[2022-07-12] MEDS: hydrOXYzine HCl 25 MG TAB PO PRN ×2 (12:33→20:26)
[2022-07-12] MEDS: ONDANSETRON INJ 2 MG/ML 2 ML VIAL IV PRN (15:35)
--- NOTE | 2022-07-12 16:17 | Hospitalist Progress Note ---
Date of Service July 12, 2022 Assessment & Plan (1) Fall: (2) Closed rib fracture: (3) VAN (acute kidney injury): (4) Alcohol intoxication: (5) Alcohol use disorder: (6) Generalized anxiety disorder: (7) Cirrhosis: (8) Depression: (9) ADD (attention deficit disorder): (10) Asthma: Plan Per Dr. Mayfield's notes with addendum: 37yo F with a PMH of alcoholic cirrhosis with ascites, continued severe alcohol dependence, ADD, depression, anxiety and other medical problems listed below who presents after fall at home on the morning of the day of arrival. She is being managed for the following: Fall Rib fractures-posterior right ninth and 10th ribs without any pneumothorax and or hematoma Patient came in with complaint of fall in the shower, patient relapsed on drinking, patient hit her head/forehead/back/right side of her body. Head CT, cervical spine, thoracic, lumbar, abd/pelvis, chest CTs performed - evidence of acute nondisplaced fractures involving the posterior medial aspects of the right ninth and 10th ribs. Otherwise no traumatic injuries noted Lidocaine patch, ice, Tylenol for rib fractures. Can use Voltaren gel. Has been getting intravenous Dilaudid and also oral oxycodone on top of above medications Pain is not yet reasonably controlled-Dilaudid frequency has been increased Pain is worse and Dilaudid doses have been increased We will get PT and OT evaluation Rib pain seems to be controlled Pain is reasonably controlled Not yet ready to be discharged Continue with PT and likely discharge tomorrow Family advised that she will not be given any extra pain medications on discharge besides the oral narcotics that she is getting 07/09 Discussed pain management with patient Encouraged to wean off from IV Dilaudid to avoid side effects, dependence Patient agreeable, we will change IV Dilaudid from every 4, now every 6 hours as needed Continue as needed oxycodone Patient declining Tylenol, avoiding NSAIDs secondary to history of liver cirrhosis Continue Lidoderm patch Will consult pain management Repeat CT head this morning: No acute finding 07/10 Pain management consulted Recommend to DC IV Dilaudid, Flexeril Recommending gabapentin twice daily, baclofen twice daily 1 dose IV Dilaudid 0.5 mg given for severe pain Continue to monitor 07/11 Continue with as needed oxycodone Continue with gabapentin twice daily, baclofen twice daily Rib x-ray: Rib fractures not seen 07/12 Continue as needed oxycodone, gabapentin, baclofen Discussed with patient that we should avoid IV Dilaudid Patient and her mother agreeable Right lower quadrant pain Associated nausea and feverish Locally tender Will have CT of the abdomen with contrast to rule out appendicitis-Ruled out Minimal abdominal pain and no more hematochezia Still has right-sided abdominal pain Will get ultrasound of the abdomen on Thursday Ultrasound of the abdomen in the morning to rule out any significant ascites Ultrasound did not show enough fluid in the abdomen to be drained Abdomen remains soft and tenderness is improved 07/12 Resolved Acute renal failure Creatinine elevated at 2.57 (baseline ~0.8) Poor oral intake given prolonged N/V and still taking Lasix and spironolactone for cirrhosis Holding diuretics for now, IV fluids, creatinine trending down. Avoid nephrotoxic agents, lasix and aldactone held. Creatinine has been improving and as of this morning is 1.73 Kidney function is improved further We will need to have cautious amount of intravenous fluid due to use of contrast media Kidney function is improved-renal function has been normalized 07/11 Creatinine increasing now at 1.8 Hold diuretics Start IV NSS at 80 cc/h Potassium 3.9 07/12 Creatinine improving to 1.6 Continue to hold diuretics Continue IV NSS Alcoholic cirrhosis Intractable nausea/vomiting Patient with history of cirrhosis, following with [facility] Left 2-month inpatient alcohol treatment facility 4 days ago [employer] and resumed drinking the day before arrival Worsened nausea and vomiting with poor appetite while at treatment center, reports some hematemesis but none for the past week GI evaluated, no indication for scope for now, advance diet as tolerated. Patient reports improving nausea and vomiting, and is tolerating diet. Continue with PPI, antiemetics as needed Still has nausea likely secondary to gastritis Has has had hematochezia-stopped No coffee-ground vomiting Will monitor CBC-hemoglobin is dropped to 7.8 We will recheck tomorrow will restart Lasix and Spironolactone Continue with current medications Strongly advised to quit alcohol 07/09 Had some nausea and an episode of vomiting this afternoon Resolved Informed patient this may be related to IV Dilaudid, encouraged to be weaned off Patient agreeable 07/12 Nausea and vomiting resolved today Continued severe alcoholic dependence Endorsing last drinks on the morning of arrival before 0900. Ethyl alcohol level 253 at admission. Placed on alcohol withdrawal protocol. Patient advised against any use of alcoholic drinks in future. CM to assist w/ outpatient resources regarding alcoholic cessation help. ADD Continue Adderall History of tobacco use Continue nicotine patch Asthma Stable; continue home inhalers DVT Ppx: SCDs Low platelet with risk of bleeding Encouraged to ambulate frequently, patient verbalized understanding Code status: FULL PCP: Ritu Dispo: Anticipate discharge to home when medically stable, pain controlled Admission and Anticipated Discharge Date Admission Date: June 30, 2022 Subjective Follow-up for right rib fracture pain, etc. Seen resting in bed, comfortable, not in distress Patient's mother at the bedside visiting Patient states she still has significant right rib pain No shortness of breath Had nausea yesterday, had 4 episodes of vomiting Resolved today No problems with urination No other symptoms Review of Systems Review of Systems: all noted and negative except for above Physical Exam Physical Exam: General- oriented x 3, not in distress, speaks in sentences with no effort or accessory muscle use Eyes- anicteric Neck- no JVD Lungs- clear breath sounds bilaterally, no crackles or wheezing Heart- normal rate, regular rhythm; no murmurs Abdomen- normal bowel sounds, nondistended, soft, no tenderness Extremities- no pretibial edema, no calf tenderness Neuro- alert, oriented x 3; no gross focal neurologic deficits Skin- warm & dry Results & Data Results & Data ([facility]) Vital Signs (Past 12 Hours) Vital Signs Temp Pulse Resp BP BP Pulse Ox O2 Del Method 07/12/22 15:41 36.7 C 92 H 18 127/77 96 Room Air 07/12/22 08:04 36.9 C 87 18 110/71 96 Room Air 07/12/22 07:15 80 18 97 Room Air all noted and reviewed including below (1) Cirrhosis Ascites presence: with ascites Hepatic cirrhosis type: alcoholic cirrhosis Qualified Code(s): K70.31 - Alcoholic cirrhosis of liver with ascites
[2022-07-12] MEDS: MONTELUKAST SODIUM 10 MG TABLET PO SCH (20:26)
[2022-07-13] MEDS: hydrOXYzine HCl 25 MG TAB PO PRN ×3 (04:01→18:10)
[2022-07-13] MEDS: oxyCODONE HCL IR 5 MG TAB (IMMEDIATE RELEASE) PO PRN ×3 (04:01→18:04)
[2022-07-13] MEDS: MELATONIN 3 MG TAB PO PRN (04:45)
[2022-07-13] MEDS: BACLOFEN 10 MG TAB PO SCH ×2 (04:45→21:31)
[2022-07-13] MEDS: SODIUM CHLORIDE 0.9% 1000ML 1,000 ML IV SCH (04:47)
[2022-07-13] MEDS: Albuterol HFA 8 GM Inhaler (Combivent Respimat P&T Subs) INH SCH ×2 (07:03→19:29)
[2022-07-13] MEDS: Ipratropium HFA Inhaler (Combivent Respimat P&T Subs) INH SCH ×2 (07:03→19:29)
[2022-07-13 07:29] LABS: BUN Creatinine Ratio 9.8 (10-20); Calcium 8.8 mg/dl (8.5-10.1); Creatinine Clr Calc Pharmacy 55.2 ml/min; Est GFR (African American) 66.5 ml/min; Est GFR (Non-African American) 57.3 ml/min
[2022-07-13] MEDS: AMPHETAMINE ASP/SULF/DEXTRAMPH 5 MG TAB PO SCH ×2 (08:31→13:24)
[2022-07-13] MEDS: ASCORBIC ACID 500 MG TAB PO SCH (08:31)
[2022-07-13] MEDS: DICLOFENAC SOD 1% GEL 100 GM TUBE EXT SCH ×3 (08:32→21:33)
[2022-07-13] MEDS: CHOLECALCIFEROL 1,000 UNITS 25 MCG TAB PO SCH (08:32)
[2022-07-13] MEDS: FLUTICASONE PROPIONATE NA SPR 16 GM BTL NAE SCH ×2 (08:32→21:33)
[2022-07-13] MEDS: LACTULOSE SYRUP 20 GM/30 ML UDC PO SCH (08:33)
[2022-07-13] MEDS: GABAPENTIN 300 MG CAP PO SCH ×2 (08:33→21:32)
[2022-07-13] MEDS: FLUTICASONE/VILANTEROL 200/25MCG 14 PUFFS/INHALER INH SCH (08:33)
[2022-07-13] MEDS: LIDOCAINE 5% 1 PATCH TD SCH (08:34)
[2022-07-13] MEDS: LORATADINE 10 MG TAB PO SCH (08:34)
[2022-07-13] MEDS: NICOTINE 14 MG/24 HR PATCH TD SCH (08:35)
[2022-07-13] MEDS: POT PHOSPHATE MONOBASIC W/ SOD TAB PO SCH ×5 (08:35→21:33)
[2022-07-13] MEDS: MULTIVITAMIN TAB PO SCH (08:35)
[2022-07-13] MEDS: PANTOprazole 40 MG TAB PO SCH ×2 (08:35→21:31)
[2022-07-13] MEDS: UMECLIDINIUM BROMIDE 62.5MCG/BLISTER 7 PUFFS/INHALER INH SCH (08:36)
[2022-07-13] MEDS: THIAMINE HCL 100 MG TAB PO SCH (08:36)
[2022-07-13] MEDS: ONDANSETRON INJ 2 MG/ML 2 ML VIAL IV PRN (09:54)
[2022-07-13] MEDS: MAGNESIUM OXIDE 400 MG TAB PO SCH ×2 (13:24→21:32)
--- NOTE | 2022-07-13 16:49 | Hospitalist Progress Note ---
Date of Service July 13, 2022 Assessment & Plan (1) Fall: (2) Closed rib fracture: (3) VAN (acute kidney injury): (4) Alcohol intoxication: (5) Alcohol use disorder: (6) Generalized anxiety disorder: (7) Cirrhosis: (8) Depression: (9) ADD (attention deficit disorder): (10) Asthma: Plan Per Dr. Mayfield's notes with addendum: 37yo F with a PMH of alcoholic cirrhosis with ascites, continued severe alcohol dependence, ADD, depression, anxiety and other medical problems listed below who presents after fall at home on the morning of the day of arrival. She is being managed for the following: Fall Rib fractures-posterior right ninth and 10th ribs without any pneumothorax and or hematoma Patient came in with complaint of fall in the shower, patient relapsed on drinking, patient hit her head/forehead/back/right side of her body. Head CT, cervical spine, thoracic, lumbar, abd/pelvis, chest CTs performed - evidence of acute nondisplaced fractures involving the posterior medial aspects of the right ninth and 10th ribs. Otherwise no traumatic injuries noted Lidocaine patch, ice, Tylenol for rib fractures. Can use Voltaren gel. Has been getting intravenous Dilaudid and also oral oxycodone on top of above medications Pain is not yet reasonably controlled-Dilaudid frequency has been increased Pain is worse and Dilaudid doses have been increased We will get PT and OT evaluation Rib pain seems to be controlled Pain is reasonably controlled Not yet ready to be discharged Continue with PT and likely discharge tomorrow Family advised that she will not be given any extra pain medications on discharge besides the oral narcotics that she is getting 07/09 Discussed pain management with patient Encouraged to wean off from IV Dilaudid to avoid side effects, dependence Patient agreeable, we will change IV Dilaudid from every 4, now every 6 hours as needed Continue as needed oxycodone Patient declining Tylenol, avoiding NSAIDs secondary to history of liver cirrhosis Continue Lidoderm patch Will consult pain management Repeat CT head this morning: No acute finding 07/10 Pain management consulted Recommend to DC IV Dilaudid, Flexeril Recommending gabapentin twice daily, baclofen twice daily 1 dose IV Dilaudid 0.5 mg given for severe pain Continue to monitor 07/11 Continue with as needed oxycodone Continue with gabapentin twice daily, baclofen twice daily Rib x-ray: Rib fractures not seen 07/12 Continue as needed oxycodone, gabapentin, baclofen Discussed with patient that we should avoid IV Dilaudid Patient and her mother agreeable 07/13 Patient requesting to increase dose of oxycodone for better pain control Will increase oxycodone 5 to 7.5 mg p.o. 4 times daily 5 for moderate pain, 7.5 for severe pain Discussed with patient, encouraged to avoid oxycodone as much as possible Not required IV Dilaudid since yesterday Continue baclofen, gabapentin Continue to monitor Right lower quadrant pain Associated nausea and feverish Locally tender Will have CT of the abdomen with contrast to rule out appendicitis-Ruled out Minimal abdominal pain and no more hematochezia Still has right-sided abdominal pain Will get ultrasound of the abdomen on Thursday Ultrasound of the abdomen in the morning to rule out any significant ascites Ultrasound did not show enough fluid in the abdomen to be drained Abdomen remains soft and tenderness is improved Resolved Acute renal failure Creatinine elevated at 2.57 (baseline ~0.8) Poor oral intake given prolonged N/V and still taking Lasix and spironolactone for cirrhosis Holding diuretics for now, IV fluids, creatinine trending down. Avoid nephrotoxic agents, lasix and aldactone held. Creatinine has been improving and as of this morning is 1.73 Kidney function is improved further We will need to have cautious amount of intravenous fluid due to use of contrast media Kidney function is improved-renal function has been normalized 07/11 Creatinine increasing now at 1.8 Hold diuretics Start IV NSS at 80 cc/h Potassium 3.9 07/12 Creatinine improving to 1.6 Continue to hold diuretics Continue IV NSS 07/13 Creatinine back to 1.2 Hold Lasix and Aldactone for now DC IV fluids Alcoholic cirrhosis Intractable nausea/vomiting Patient with history of cirrhosis, following with [facility] Left 2-month inpatient alcohol treatment facility 4 days ago [employer] and resumed drinking the day before arrival Worsened nausea and vomiting with poor appetite while at treatment center, reports some hematemesis but none for the past week GI evaluated, no indication for scope for now, advance diet as tolerated. Patient reports improving nausea and vomiting, and is tolerating diet. Continue with PPI, antiemetics as needed Still has nausea likely secondary to gastritis Has has had hematochezia-stopped No coffee-ground vomiting Will monitor CBC-hemoglobin is dropped to 7.8 We will recheck tomorrow will restart Lasix and Spironolactone Continue with current medications Strongly advised to quit alcohol 07/09 Had some nausea and an episode of vomiting this afternoon Resolved Informed patient this may be related to IV Dilaudid, encouraged to be weaned off Patient agreeable 07/12 Nausea and vomiting resolved today 07/13 Will monitor abdominal distention May need ultrasound to assess volume of ascites, possible paracentesis Monitor closely Continued severe alcoholic dependence Endorsing last drinks on the morning of arrival before 0900. Ethyl alcohol level 253 at admission. Placed on alcohol withdrawal protocol. Patient advised against any use of alcoholic drinks in future. CM to assist w/ outpatient resources regarding alcoholic cessation help. ADD Continue Adderall History of tobacco use Continue nicotine patch Asthma Stable; continue home inhalers DVT Ppx: SCDs Low platelet with risk of bleeding Encouraged to ambulate frequently, patient verbalized understanding Code status: FULL PCP: Ritu Dispo: Anticipate discharge to home when medically stable, pain controlled Admission and Anticipated Discharge Date Admission Date: June 30, 2022 Subjective Follow-up for rib fracture pain, liver cirrhosis, etc. Seen resting in bed, awake and alert, in good spirits States she still having significant right rib fracture Requesting to increase frequency or increased dosage of oxycodone for better pain control No shortness of breath Having some occasional nausea, mild abdominal distention Positive BMs No other symptom Review of Systems Review of Systems: all noted and negative except for above Physical Exam Physical Exam: General- oriented x 3, not in distress, speaks in sentences with no effort or accessory muscle use Eyes- anicteric Neck- no JVD Lungs- clear BS BL, no crackles Heart- normal rate, regular rhythm; no murmurs Abdomen- normal bowel sounds, very mild distention noted, soft, nontender Extremities- no pretibial edema, no calf tenderness Neuro- alert, oriented x 3; no gross focal neurologic deficits Skin- warm & dry Results & Data Results & Data ([facility]) Vital Signs (Past 12 Hours) Vital Signs Temp Pulse Pulse Resp BP Pulse Ox O2 Del Method 07/13/22 14:29 37.0 C 97 H 14 116/71 95 Room Air 07/13/22 07:19 36.9 C 94 H 16 117/72 95 Room Air 07/13/22 07:03 95 H 18 97 Room Air all noted and reviewed including below (1) Cirrhosis Ascites presence: with ascites Hepatic cirrhosis type: alcoholic cirrhosis Qualified Code(s): K70.31 - Alcoholic cirrhosis of liver with ascites
[2022-07-13] MEDS: MONTELUKAST SODIUM 10 MG TABLET PO SCH (21:32)
[2022-07-14] MEDS: oxyCODONE HCL IR 5 MG TAB (IMMEDIATE RELEASE) PO PRN ×4 (00:04→20:40)
[2022-07-14] MEDS: hydrOXYzine HCl 25 MG TAB PO PRN ×2 (00:04→08:20)
[2022-07-14] MEDS: MELATONIN 3 MG TAB PO PRN (00:04)
[2022-07-14] MEDS: AMPHETAMINE ASP/SULF/DEXTRAMPH 5 MG TAB PO SCH ×2 (06:27→14:22)
[2022-07-14] MEDS: Ipratropium HFA Inhaler (Combivent Respimat P&T Subs) INH SCH ×2 (07:53→19:08)
[2022-07-14] MEDS: Albuterol HFA 8 GM Inhaler (Combivent Respimat P&T Subs) INH SCH ×2 (07:53→19:09)
[2022-07-14] MEDS: FLUTICASONE PROPIONATE NA SPR 16 GM BTL NAE SCH ×2 (08:11→20:45)
[2022-07-14] MEDS: POT PHOSPHATE MONOBASIC W/ SOD TAB PO SCH ×4 (08:12→20:44)
[2022-07-14] MEDS: MAGNESIUM OXIDE 400 MG TAB PO SCH ×2 (08:12→20:44)
[2022-07-14] MEDS: BACLOFEN 10 MG TAB PO SCH ×2 (08:12→20:43)
[2022-07-14] MEDS: GABAPENTIN 300 MG CAP PO SCH ×2 (08:12→20:44)
[2022-07-14] MEDS: PANTOprazole 40 MG TAB PO SCH ×2 (08:12→20:44)
[2022-07-14] MEDS: THIAMINE HCL 100 MG TAB PO SCH (08:14)
[2022-07-14] MEDS: LORATADINE 10 MG TAB PO SCH (08:14)
[2022-07-14] MEDS: MULTIVITAMIN TAB PO SCH (08:14)
[2022-07-14] MEDS: LIDOCAINE 5% 1 PATCH TD SCH (08:14)
[2022-07-14] MEDS: CHOLECALCIFEROL 1,000 UNITS 25 MCG TAB PO SCH (08:14)
[2022-07-14] MEDS: DICLOFENAC SOD 1% GEL 100 GM TUBE EXT SCH ×3 (08:14→20:45)
[2022-07-14] MEDS: NICOTINE 14 MG/24 HR PATCH TD SCH (08:14)
[2022-07-14] MEDS: ASCORBIC ACID 500 MG TAB PO SCH (08:14)
[2022-07-14] MEDS: LACTULOSE SYRUP 20 GM/30 ML UDC PO SCH (08:15)
[2022-07-14] MEDS: FLUTICASONE/VILANTEROL 200/25MCG 14 PUFFS/INHALER INH SCH (08:15)
[2022-07-14] MEDS: UMECLIDINIUM BROMIDE 62.5MCG/BLISTER 7 PUFFS/INHALER INH SCH (08:16)
[2022-07-14 09:59] LABS: BUN Creatinine Ratio 9.6 (10-20); Calcium 9.1 mg/dl (8.5-10.1); Creatinine Clr Calc Pharmacy 64.8 ml/min; Est GFR (African American) 80.6 ml/min; Est GFR (Non-African American) 69.6 ml/min
--- NOTE | 2022-07-14 12:04 | Ultrasound Report ---
ULTRASOUND ASCITES CHECK CLINICAL HISTORY: Ascites. COMPARISON STUDY: Ultrasound ascites check dated 07/07/2022. FINDINGS: Real-time grayscale sonography of all 4 quadrants of the abdomen is performed to assess for abdominal ascites. No abdominal ascites is identified. The liver is cirrhotic in morphology and appe ars steatotic. The spleen is enlarged measuring 17.7 cm in length. IMPRESSION: No abdominal ascites is identified. Electronically signed by: Brodie Gillis M.D. 07/14/2022 12:02 PM
[2022-07-14] MEDS: ONDANSETRON INJ 2 MG/ML 2 ML VIAL IV PRN (13:40)
[2022-07-14 14:56] LABS: Albumin Level 3.4 gm/dl (3.4-5.0); Bilirubin Direct 0.7 mg/dl (0-0.2); Bilirubin,Total 1.7 mg/dl (0.2-1.0)
[2022-07-14] MEDS: SERTRALINE HCL 50 MG TABLET PO SCH (16:07)
[2022-07-14] MEDS: buPROPion SR 150 MG TABCR PO SCH (16:07)
--- NOTE | 2022-07-14 17:12 | Hospitalist Progress Note ---
Date of Service July 14, 2022 Assessment & Plan (1) Fall: (2) Closed rib fracture: (3) VAN (acute kidney injury): (4) Alcohol intoxication: (5) Alcohol use disorder: (6) Generalized anxiety disorder: (7) Cirrhosis: (8) Depression: (9) ADD (attention deficit disorder): (10) Asthma: Plan Per Dr. Mayfield's notes with addendum: 37yo F with a PMH of alcoholic cirrhosis with ascites, continued severe alcohol dependence, ADD, depression, anxiety and other medical problems listed below who presents after fall at home on the morning of the day of arrival. She is being managed for the following: Fall Rib fractures-posterior right ninth and 10th ribs without any pneumothorax and or hematoma Patient came in with complaint of fall in the shower, patient relapsed on drinking, patient hit her head/forehead/back/right side of her body. Head CT, cervical spine, thoracic, lumbar, abd/pelvis, chest CTs performed - evidence of acute nondisplaced fractures involving the posterior medial aspects of the right ninth and 10th ribs. Otherwise no traumatic injuries noted Lidocaine patch, ice, Tylenol for rib fractures. Can use Voltaren gel. Has been getting intravenous Dilaudid and also oral oxycodone on top of above medications Pain is not yet reasonably controlled-Dilaudid frequency has been increased Pain is worse and Dilaudid doses have been increased We will get PT and OT evaluation Rib pain seems to be controlled Pain is reasonably controlled Not yet ready to be discharged Continue with PT and likely discharge tomorrow Family advised that she will not be given any extra pain medications on discharge besides the oral narcotics that she is getting 07/09 Discussed pain management with patient Encouraged to wean off from IV Dilaudid to avoid side effects, dependence Patient agreeable, we will change IV Dilaudid from every 4, now every 6 hours as needed Continue as needed oxycodone Patient declining Tylenol, avoiding NSAIDs secondary to history of liver cirrhosis Continue Lidoderm patch Will consult pain management Repeat CT head this morning: No acute finding 07/10 Pain management consulted Recommend to DC IV Dilaudid, Flexeril Recommending gabapentin twice daily, baclofen twice daily 1 dose IV Dilaudid 0.5 mg given for severe pain Continue to monitor 07/11 Continue with as needed oxycodone Continue with gabapentin twice daily, baclofen twice daily Rib x-ray: Rib fractures not seen 07/12 Continue as needed oxycodone, gabapentin, baclofen Discussed with patient that we should avoid IV Dilaudid Patient and her mother agreeable 07/13 Patient requesting to increase dose of oxycodone for better pain control Will increase oxycodone 5 to 7.5 mg p.o. 4 times daily 5 for moderate pain, 7.5 for severe pain Discussed with patient, encouraged to avoid oxycodone as much as possible Not required IV Dilaudid since yesterday Continue baclofen, gabapentin Continue to monitor 07/14 Pain seems to be under control now Has not used IV Dilaudid for 2 days now Continue oxycodone as needed Continue baclofen and gabapentin Right lower quadrant pain Associated nausea and feverish Locally tender Will have CT of the abdomen with contrast to rule out appendicitis-Ruled out Minimal abdominal pain and no more hematochezia Still has right-sided abdominal pain Will get ultrasound of the abdomen on Thursday Ultrasound of the abdomen in the morning to rule out any significant ascites Ultrasound did not show enough fluid in the abdomen to be drained Abdomen remains soft and tenderness is improved Resolved Acute renal failure Creatinine elevated at 2.57 (baseline ~0.8) Poor oral intake given prolonged N/V and still taking Lasix and spironolactone for cirrhosis Holding diuretics for now, IV fluids, creatinine trending down. Avoid nephrotoxic agents, lasix and aldactone held. Creatinine has been improving and as of this morning is 1.73 Kidney function is improved further We will need to have cautious amount of intravenous fluid due to use of contrast media Kidney function is improved-renal function has been normalized 07/11 Creatinine increasing now at 1.8 Hold diuretics Start IV NSS at 80 cc/h Potassium 3.9 07/12 Creatinine improving to 1.6 Continue to hold diuretics Continue IV NSS 07/13 Creatinine back to 1.2 Hold Lasix and Aldactone for now DC IV fluids 07/14 Creatinine back to baseline Resume Lasix and Aldactone Alcoholic cirrhosis Intractable nausea/vomiting Patient with history of cirrhosis, following with [facility] Left 2-month inpatient alcohol treatment facility 4 days ago [employer] and resumed drinking the day before arrival Worsened nausea and vomiting with poor appetite while at treatment center, reports some hematemesis but none for the past week GI evaluated, no indication for scope for now, advance diet as tolerated. Patient reports improving nausea and vomiting, and is tolerating diet. Continue with PPI, antiemetics as needed Still has nausea likely secondary to gastritis Has has had hematochezia-stopped No coffee-ground vomiting Will monitor CBC-hemoglobin is dropped to 7.8 We will recheck tomorrow will restart Lasix and Spironolactone Continue with current medications Strongly advised to quit alcohol 07/09 Had some nausea and an episode of vomiting this afternoon Resolved Informed patient this may be related to IV Dilaudid, encouraged to be weaned off Patient agreeable 07/12 Nausea and vomiting resolved today 07/13 Will monitor abdominal distention May need ultrasound to assess volume of ascites, possible paracentesis Monitor closely 07/14 Abdominal ultrasound: No ascites Continued severe alcoholic dependence Endorsing last drinks on the morning of arrival before 0900. Ethyl alcohol level 253 at admission. Placed on alcohol withdrawal protocol. Patient advised against any use of alcoholic drinks in future. CM to assist w/ outpatient resources regarding alcoholic cessation help. 07/14 Patient reports that she has been taking Zoloft and Wellbutrin prior to admission EKG today: QT interval less than 500 Monitor QT intervals ADD Continue Adderall History of tobacco use Continue nicotine patch Asthma Stable; continue home inhalers DVT Ppx: SCDs Low platelet with risk of bleeding Encouraged to ambulate frequently, patient verbalized understanding Code status: FULL PCP: Ritu Dispo: Anticipate discharge to home when medically stable, pain controlled Admission and Anticipated Discharge Date Admission Date: June 30, 2022 Subjective Follow-up for rib fracture pain, etc. Seen sitting up in bed, comfortable, not distressed States pain is under control now with oxycodone No shortness of breath No abdominal pain, reports mild distention but no nausea Tolerating diet No other symptoms Review of Systems Review of Systems: all noted and negative except for above Physical Exam Physical Exam: General- oriented x 3, not in distress, speaks in sentences with no effort or accessory muscle use Eyes- anicteric Neck- no JVD Lungs- clear BS BL Heart- normal rate, regular rhythm; no murmurs Abdomen- normal bowel sounds, very mildly distended, soft, no tenderness Extremities- no pretibial edema, no calf tenderness Neuro- alert, oriented x 3; no gross focal neurologic deficits Skin- warm & dry Results & Data Results & Data ([facility]) Vital Signs (Past 12 Hours) Vital Signs Temp Pulse Pulse Resp BP Pulse Ox O2 Del Method 07/14/22 15:24 37.2 C 98 H 14 112/70 94 Room Air 07/14/22 07:54 81 16 95 Room Air 07/14/22 07:30 36.8 C 71 16 108/67 95 Room Air all noted and reviewed including below (1) Cirrhosis Ascites presence: with ascites Hepatic cirrhosis type: alcoholic cirrhosis Qualified Code(s): K70.31 - Alcoholic cirrhosis of liver with ascites
[2022-07-14] MEDS: MONTELUKAST SODIUM 10 MG TABLET PO SCH (20:44)
[2022-07-14 23:03] LABS: Basophils # (auto) 0.02 K/uL (0-0.2); Basophils % (auto) 0.5 %; Eosinophils # (auto) 0.08 K/uL (0-0.50); Eosinophils % (auto) 1.9 %; Hemoglobin 7.7 g/dl (12.0-16.0); Immature Granulocytes # (auto) 0.01 K/uL (0.00-0.02); Immature Granulocytes % (auto) 0.2 %; Lymphocytes # (auto) 0.64 K/uL (1.2-3.4); Lymphocytes % (auto) 15.6 %; Mean Platelet Volume 10.1 fL (9.4-12.3); Monocytes # (auto) 0.42 K/uL (0.24-0.82); Monocytes % (auto) 10.2 %; Neutrophils # (auto) 2.94 K/uL (1.4-6.5); Neutrophils % (auto) 71.6 %; Platelet Count 103 K/uL (130-400); White Blood Count 4.11 K/ul (4.8-10.8)
[2022-07-15 00:32] LABS: Mean Corpuscular Hemoglobin 29.5 pg (25.0-34.0); Mean Corpuscular Hgb Conc 33.5 g/dL (32.0-36.0); Mean Corpuscular Volume 88.1 fL (80.0-100.0); RBC Morphology Unremarkable; RDW Coefficient of Variation 17.4 % (11.5-14.5); RDW Standard Deviation 54.8 fL (36.4-46.3); Red Blood Count 2.61 M/uL (3.93-5.22)
--- NOTE | 2022-07-15 00:50 | 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 Note ---
Date of Service: July 15, 2022 Patient with painless hematochezia as per RN. Hemoglobin 7.7 (Patient baseline 7-8) Trend H&H
[2022-07-15] MEDS: hydrOXYzine HCl 25 MG TAB PO PRN ×3 (02:39→22:01)
[2022-07-15] MEDS: MELATONIN 3 MG TAB PO PRN ×2 (02:39→22:01)
[2022-07-15] MEDS: oxyCODONE HCL IR 5 MG TAB (IMMEDIATE RELEASE) PO PRN ×4 (02:39→22:01)
--- NOTE | 2022-07-15 05:51 | Electrocardiogram Report ---
Test Reason : Blood Pressure : / mmHG Vent. Rate : 091 BPM Atrial Rate : 091 BPM P-R Int : 158 ms QRS Dur : 082 ms QT Int : 404 ms P-R-T Axes : 140 -30 -33 degrees QTc Int : 496 ms Unusual P axis, possible ectopic atrial rhythm Left axis deviation Inferior infarct (cited on or before 14-JUL-2022) Anterior infarct (cited on or before 14-JUL-2022) Prolonged QT Abnormal ECG When compared with ECG of 30-JUN-2022 13:33, Possible Ectopic atrial rhythm has replaced Sinus rhythm Nonspecific T wave abnormality, worse in Inferior leads Confirmed by Elliot Knight ([id number] on 07/15/2022 5:51:18 AM Referred By: Provider Outside Confirmed By:Elliot Knight
[2022-07-15] MEDS: Albuterol HFA 8 GM Inhaler (Combivent Respimat P&T Subs) INH SCH ×2 (06:11→18:00)
[2022-07-15] MEDS: Ipratropium HFA Inhaler (Combivent Respimat P&T Subs) INH SCH ×2 (06:12→17:59)
[2022-07-15] MEDS: AMPHETAMINE ASP/SULF/DEXTRAMPH 5 MG TAB PO SCH ×2 (06:32→14:24)
[2022-07-15] MEDS: HEPARIN 100 UNIT/ML 5ML FLUSH FLUSH PRN (06:36)
[2022-07-15 07:17] LABS: Basophils # (auto) 0.02 K/uL (0-0.2); Basophils % (auto) 0.5 %; Eosinophils # (auto) 0.08 K/uL (0-0.50); Eosinophils % (auto) 1.9 %; Hematocrit (blood only) 22.7 % (34.1-44.9); Hemoglobin 7.6 g/dl (12.0-16.0); Immature Granulocytes # (auto) 0.01 K/uL (0.00-0.02); Immature Granulocytes % (auto) 0.2 %; Lymphocytes # (auto) 0.81 K/uL (1.2-3.4); Lymphocytes % (auto) 19.3 %; Mean Platelet Volume 10.7 fL (9.4-12.3); Monocytes # (auto) 0.34 K/uL (0.24-0.82); Monocytes % (auto) 8.1 %; Neutrophils # (auto) 2.93 K/uL (1.4-6.5); Platelet Count 110 K/uL (130-400); White Blood Count 4.19 K/ul (4.8-10.8)
[2022-07-15 07:40] LABS: Mean Corpuscular Hemoglobin 29.8 pg (25.0-34.0); Mean Corpuscular Hgb Conc 33.5 g/dL (32.0-36.0); RBC Morphology Unremarkable; RDW Coefficient of Variation 17.4 % (11.5-14.5); RDW Standard Deviation 55.9 fL (36.4-46.3); Red Blood Count 2.55 M/uL (3.93-5.22)
[2022-07-15 07:42] LABS: BUN Creatinine Ratio 10.4 (10-20); Calcium 8.8 mg/dl (8.5-10.1); Creatinine Clr Calc Pharmacy 58.6 ml/min; Est GFR (African American) 71.4 ml/min; Est GFR (Non-African American) 61.6 ml/min; Potassium 3.8 mmol/L (3.5-5.1)
[2022-07-15] MEDS: BACLOFEN 10 MG TAB PO SCH ×2 (08:08→22:03)
[2022-07-15] MEDS: MAGNESIUM OXIDE 400 MG TAB PO SCH ×2 (08:08→22:04)
[2022-07-15] MEDS: PANTOprazole 40 MG TAB PO SCH ×2 (08:08→22:03)
[2022-07-15] MEDS: DICLOFENAC SOD 1% GEL 100 GM TUBE EXT SCH ×3 (08:08→21:57)
[2022-07-15] MEDS: POT PHOSPHATE MONOBASIC W/ SOD TAB PO SCH ×4 (08:08→22:00)
[2022-07-15] MEDS: MULTIVITAMIN TAB PO SCH (08:09)
[2022-07-15] MEDS: GABAPENTIN 300 MG CAP PO SCH ×2 (08:09→22:02)
[2022-07-15] MEDS: FLUTICASONE/VILANTEROL 200/25MCG 14 PUFFS/INHALER INH SCH (08:09)
[2022-07-15] MEDS: ASCORBIC ACID 500 MG TAB PO SCH (08:13)
[2022-07-15] MEDS: LIDOCAINE 5% 1 PATCH TD SCH (08:13)
[2022-07-15] MEDS: THIAMINE HCL 100 MG TAB PO SCH (08:14)
[2022-07-15] MEDS: NICOTINE 14 MG/24 HR PATCH TD SCH (08:14)
[2022-07-15] MEDS: CHOLECALCIFEROL 1,000 UNITS 25 MCG TAB PO SCH (08:14)
[2022-07-15] MEDS: LACTULOSE SYRUP 20 GM/30 ML UDC PO SCH (08:15)
[2022-07-15] MEDS: LORATADINE 10 MG TAB PO SCH (08:15)
[2022-07-15] MEDS: FLUTICASONE PROPIONATE NA SPR 16 GM BTL NAE SCH ×2 (08:15→21:59)
[2022-07-15] MEDS: SERTRALINE HCL 50 MG TABLET PO SCH (08:15)
[2022-07-15] MEDS: buPROPion SR 150 MG TABCR PO SCH (08:15)
[2022-07-15] MEDS: FUROSEMIDE 80 MG TAB PO SCH (08:16)
[2022-07-15] MEDS: SPIRONOLACTONE 100 MG TAB PO SCH (08:16)
--- NOTE | 2022-07-15 09:54 | Gastroenterology Progress Note ---
Date of Service July 15, 2022 Assessment & Plan (1) Rectal bleeding: Plan: 37 year old female with history of alcoholic hepatitis and cirrhosis w/ report of BRBPR, suspect lower GI bleeding given stable HGB and normal BUN Clear today Golytely 4L NPO midnight EGD/Colon Thursday Trend H&H Transfuse PRN primary service Call with any questions or concerns Admission and Anticipated Discharge Date Admission Date: June 30, 2022 Supervising Physician Co-Signing Physician Notes Reports of painless rectal bleeding. Denies being on her period, ? reports of intermittent hematemesis. With ascites on exam, alert and oriented to person/place/time, agree with pe as documented by TECHNICAL SUPPORT CONSULTANT. Labs/imaging reviewed. Last egd in summer without varices. Prep today, npo after midnite, hold any blood thinners. Egd/colon tomorrow. Subjective GI asked to re-eval for rectal bleeding Started last name Painless, BRB Noted she has had 3 episodes Denies black stools No vomiting Review of Systems Review of Systems: All systems reviewed & are unremarkable except as noted in HPI & below Physical Exam Constitutional: WD/WN, vitals as above Respiratory: normal respiratory effort, lungs clear to auscultation Cardiovascular: Rate/Rhythm: regular rate and regular rhythm Gastrointestinal (Abdomen): normal bowel sounds, soft, nontender, no hepatosplenomegaly Skin: no rashes, warm and dry Results & Data ([facility]) Vital Signs (Past 12 Hours) Vital Signs Temp Pulse Resp BP Pulse Ox O2 Del Method 07/15/22 07:37 36.9 C 81 16 107/67 96 Room Air 07/15/22 06:12 16 96 Room Air Laboratory Results 07/15/22 07/15/22 07/14/22 Range/Units 06:34 06:34 22:43 WBC 4.19 L 4.11 L (4.8-10.8) K/ul RBC 2.55 L 2.61 L (3.93-5.22) M/uL Hgb 7.6 L 7.7 L (12.0-16.0) g/dl Hct 22.7 L 23.0 L (34.1-44.9) % MCV 89.0 88.1 (80.0-100.0) fL MCH 29.8 29.5 (25.0-34.0) pg MCHC 33.5 33.5 (32.0-36.0) g/dL RDW Std Deviation 55.9 H 54.8 H (36.4-46.3) fL RDW Coeff of Yasmine 17.4 H 17.4 H (11.5-14.5) % Plt Count 110 L 103 L (130-400) K/uL MPV 10.7 10.1 (9.4-12.3) fL Immature Gran % (Auto) 0.2 0.2 % Neut % (Auto) 70.0 71.6 % Lymph % (Auto) 19.3 15.6 % Deuel % (Auto) 8.1 10.2 % Eos % (Auto) 1.9 1.9 % Baso % (Auto) 0.5 0.5 % Neut # (Auto) 2.93 2.94 (1.4-6.5) K/uL Lymph # (Auto) 0.81 L 0.64 L (1.2-3.4) K/uL Deuel # (Auto) 0.34 0.42 (0.24-0.82) K/uL Eos # (Auto) 0.08 0.08 (0-0.50) K/uL Baso # (Auto) 0.02 0.02 (0-0.2) K/uL Immature Gran # (Auto) 0.01 0.01 (0.00-0.02) K/uL RBC Morphology Unremarkable Unremarkable Sodium 136 (136-145) mmol/L Potassium 3.8 (3.5-5.1) mmol/L Chloride 107 (98-107) mmol/L Carbon Dioxide 22 (21-32) mmol/L Anion Gap 7 (3-11) BUN 12 (6-23) mg/dl Creatinine 1.15 (0.6-1.2) mg/dl Est Cr Clr Drug Dosing 58.6 ml/min Est GFR ( Amer) 71.4 ml/min Est GFR (Non-Af Amer) 61.6 ml/min BUN/Creatinine Ratio 10.4 (10-20) Glucose 125 H (70-99(Fasting)) mg/dl Calcium 8.8 (8.5-10.1) mg/dl Total Bilirubin (0.2-1.0) mg/dl Direct Bilirubin (0-0.2) mg/dl AST (13-39) U/L ALT (7-52) U/L Alkaline Phosphatase (34-104) U/L Total Protein (6.0-8.3) gm/dl Albumin (3.4-5.0) gm/dl Blood Type Antibody Screen 07/14/22 07/14/22 07/14/22 Range/Units 22:43 10:54 08:26 WBC (4.8-10.8) K/ul RBC (3.93-5.22) M/uL Hgb (12.0-16.0) g/dl Hct (34.1-44.9) % MCV (80.0-100.0) fL MCH (25.0-34.0) pg MCHC (32.0-36.0) g/dL RDW Std Deviation (36.4-46.3) fL RDW Coeff of Yasmine (11.5-14.5) % Plt Count (130-400) K/uL MPV (9.4-12.3) fL Immature Gran % (Auto) % Neut % (Auto) % Lymph % (Auto) % Deuel % (Auto) % Eos % (Auto) % Baso % (Auto) % Neut # (Auto) (1.4-6.5) K/uL Lymph # (Auto) (1.2-3.4) K/uL Deuel # (Auto) (0.24-0.82) K/uL Eos # (Auto) (0-0.50) K/uL Baso # (Auto) (0-0.2) K/uL Immature Gran # (Auto) (0.00-0.02) K/uL RBC Morphology Sodium 137 (136-145) mmol/L Potassium 4.0 (3.5-5.1) mmol/L Chloride 109 H (98-107) mmol/L Carbon Dioxide 21 (21-32) mmol/L Anion Gap 7 (3-11) BUN 10 (6-23) mg/dl Creatinine 1.04 (0.6-1.2) mg/dl Est Cr Clr Drug Dosing 64.8 ml/min Est GFR ( Amer) 80.6 ml/min Est GFR (Non-Af Amer) 69.6 ml/min BUN/Creatinine Ratio 9.6 L (10-20) Glucose 91 (70-99(Fasting)) mg/dl Calcium 9.1 (8.5-10.1) mg/dl Total Bilirubin 1.7 H (0.2-1.0) mg/dl Direct Bilirubin 0.7 H (0-0.2) mg/dl AST 37 (13-39) U/L ALT 20 (7-52) U/L Alkaline Phosphatase 114 H (34-104) U/L Total Protein 6.0 (6.0-8.3) gm/dl Albumin 3.4 (3.4-5.0) gm/dl Blood Type O Positive Antibody Screen NEGATIVE
[2022-07-15] MEDS: UMECLIDINIUM BROMIDE 62.5MCG/BLISTER 7 PUFFS/INHALER INH SCH (10:05)
[2022-07-15] MEDS: ACETAMINOPHEN 500 MG TAB PO PRN (13:52)
[2022-07-15] MEDS ORDERED: LAVAGE SOLUTION 4000ML PO SCH (15:00)
[2022-07-15] MEDS: ONDANSETRON INJ 2 MG/ML 2 ML VIAL IV PRN (16:28)
--- NOTE | 2022-07-15 16:34 | Hospitalist Progress Note ---
Date of Service July 15, 2022 Assessment & Plan (1) Fall: (2) Closed rib fracture: (3) VAN (acute kidney injury): (4) Alcohol intoxication: (5) Alcohol use disorder: (6) Generalized anxiety disorder: (7) Cirrhosis: (8) Depression: (9) ADD (attention deficit disorder): (10) Asthma: Plan Per Dr. Mayfield's notes with addendum: 37yo F with a PMH of alcoholic cirrhosis with ascites, continued severe alcohol dependence, ADD, depression, anxiety and other medical problems listed below who presents after fall at home on the morning of the day of arrival. She is being managed for the following: Fall Rib fractures-posterior right ninth and 10th ribs without any pneumothorax and or hematoma Patient came in with complaint of fall in the shower, patient relapsed on drinking, patient hit her head/forehead/back/right side of her body. Head CT, cervical spine, thoracic, lumbar, abd/pelvis, chest CTs performed - evidence of acute nondisplaced fractures involving the posterior medial aspects of the right ninth and 10th ribs. Otherwise no traumatic injuries noted 07/15 Pain seems to be under control now with as needed oxycodone Has not used IV Dilaudid for the past 3 days now Pain management consulted: Recommended gabapentin and baclofen We will taper gabapentin now to daily x2 days then stop Continue baclofen as this is helping as per patient Hematochezia Liver cirrhosis, alcoholism Hemoglobin dropped from 8.7-->7.6 Repeat hemoglobin pending GI service reconsulted For EGD and colonoscopy tomorrow Acute renal failure Creatinine elevated at 2.57 (baseline ~0.8) Poor oral intake given prolonged N/V and still taking Lasix and spironolactone for cirrhosis Kidney function is improved-renal function has been normalized 07/11 Creatinine increased again to 1.8 Diuretics held, given IV fluids Creatinine back to baseline Resume Lasix and Aldactone Alcoholic cirrhosis Intractable nausea/vomiting Patient with history of cirrhosis, following with [facility] Left 2-month inpatient alcohol treatment facility 4 days ago [employer] and resumed drinking the day before arrival Worsened nausea and vomiting with poor appetite while at treatment center, reports some hematemesis but none for the past week 07/14 Abdominal ultrasound: No ascites 07/15 Lasix and Aldactone resumed Hematochezia overnight, for EGD colonoscopy tomorrow Continued severe alcoholic dependence Endorsing last drinks on the morning of arrival before 0900. Ethyl alcohol level 253 at admission. Placed on alcohol withdrawal protocol. Patient advised against any use of alcoholic drinks in future. CM to assist w/ outpatient resources regarding alcoholic cessation help. Patient reports that she has been taking Zoloft and Wellbutrin prior to admission Zoloft and Wellbutrin restarted 07/14 EKG today: QT interval less than 500 Monitor QT interval ADD Continue Adderall History of tobacco use Continue nicotine patch Asthma Stable; continue home inhalers DVT Ppx: SCDs Encouraged to ambulate frequently, patient verbalized understanding Code status: FULL PCP: Ritu Dispo: Anticipate discharge to home when medically stable, pain controlled Admission and Anticipated Discharge Date Admission Date: June 30, 2022 Subjective Follow-up for rib fracture pain, status post fall, history of liver cirrhosis, alcoholism, etc. Overnight developed 1 episode of hematochezia Hemoglobin dropped to 7.7 Seen resting in bed, comfortable, not in distress States she feels okay overall No recurrence of hematochezia Had mild abdominal discomfort overnight Rib fracture pain well controlled No other symptoms Review of Systems Review of Systems: all noted and negative except for above Physical Exam Physical Exam: General- oriented x 3, not in distress, speaks in sentences with no effort or accessory muscle use Eyes- anicteric Neck- no JVD Lungs- clear breath sounds bilaterally, no crackles Heart- normal rate, regular rhythm; no murmurs Abdomen- normal bowel sounds, mildly distended, soft, no tenderness Extremities- no pretibial edema, no calf tenderness Neuro- alert, oriented x 3; no gross focal neurologic deficits Skin- warm & dry Results & Data Results & Data ([facility]) Vital Signs (Past 12 Hours) Vital Signs Temp Pulse Resp BP Pulse Ox O2 Del Method 07/15/22 15:32 36.7 C 86 16 104/67 97 Room Air 07/15/22 07:37 36.9 C 81 16 107/67 96 Room Air 07/15/22 06:12 16 96 Room Air all noted and reviewed including below (1) Cirrhosis Ascites presence: with ascites Hepatic cirrhosis type: alcoholic cirrhosis Qualified Code(s): K70.31 - Alcoholic cirrhosis of liver with ascites
[2022-07-15 16:38] LABS: Hematocrit (blood only) 22.2 % (34.1-44.9); Hemoglobin 7.6 g/dl (12.0-16.0)
[2022-07-15] MEDS: MONTELUKAST SODIUM 10 MG TABLET PO SCH (22:04)
[2022-07-16] MEDS: oxyCODONE HCL IR 5 MG TAB (IMMEDIATE RELEASE) PO PRN ×3 (04:52→20:17)
[2022-07-16] MEDS: Ipratropium HFA Inhaler (Combivent Respimat P&T Subs) INH SCH ×2 (05:30→19:38)
[2022-07-16] MEDS: Albuterol HFA 8 GM Inhaler (Combivent Respimat P&T Subs) INH SCH ×2 (05:31→19:38)
[2022-07-16] MEDS: ACETAMINOPHEN 500 MG TAB PO PRN (06:27)
[2022-07-16] MEDS: AMPHETAMINE ASP/SULF/DEXTRAMPH 5 MG TAB PO SCH ×2 (06:28→14:00)
[2022-07-16] MEDS: ONDANSETRON INJ 2 MG/ML 2 ML VIAL IV PRN (08:08)
[2022-07-16] MEDS: DICLOFENAC SOD 1% GEL 100 GM TUBE EXT SCH ×3 (08:09→20:08)
[2022-07-16] MEDS: FLUTICASONE PROPIONATE NA SPR 16 GM BTL NAE SCH ×2 (08:09→20:17)
[2022-07-16] MEDS: FLUTICASONE/VILANTEROL 200/25MCG 14 PUFFS/INHALER INH SCH (08:09)
[2022-07-16] MEDS: UMECLIDINIUM BROMIDE 62.5MCG/BLISTER 7 PUFFS/INHALER INH SCH (08:10)
[2022-07-16] MEDS: LIDOCAINE 5% 1 PATCH TD SCH (08:11)
[2022-07-16] MEDS: NICOTINE 14 MG/24 HR PATCH TD SCH (08:11)
[2022-07-16 08:50] LABS: Calcium 8.4 mg/dl (8.5-10.1); Creatinine Clr Calc Pharmacy 60.2 ml/min; Est GFR (African American) 73.7 ml/min; Est GFR (Non-African American) 63.6 ml/min; Potassium 3.3 mmol/L (3.5-5.1)
--- NOTE | 2022-07-16 09:11 | Anesthesiology Consultation ---
Date of Service July 16, 2022 Assessment & Plan Chart Review Chart Review: Acceptable Risk for Surgery, Patient NOT seen in Pre Admission Testing and data entry processor initiated Consults Requested none History Surgery Operation Date: 07/16/22 16:30 Proposed Procedures p Colonoscopy EGD Dr. Michell Galarza MD Height/Weight Height: 5 ft 1 in Weight: 64.2 kg Allergies Allergy/AdvReac Type Severity Reaction Status Date / Time banana Allergy Intermediate RASH, Verified 04/22/22 07:49 THROAT SLIGHTLY SWOLLEN Penicillins Allergy Unknown HAPPENED Verified 04/22/22 07:49 A CHILD Medications Home Medications Medication Instructions Recorded Confirmed Last Taken albuterol sulfate 90 mcg/actuation 2 inh inhalation BID PRN Shortness 06/24/20 06/30/22 04/21/22 18:30 aerosol inhaler (ProAir HFA) Of Breath budesonide-formoterol HFA 160 2 puff inhalation BID 06/20/21 06/30/22 04/21/22 18:30 mcg-4.5 mcg/actuation aerosol inhaler (Symbicort) dextroamphetamine-amphetamine 5 mg 5 mg PO BID 06/20/21 06/30/22 04/21/22 15:30 tablet (Adderall) ipratropium 20 mcg-albuterol 100 1 puff inhalation BID 06/20/21 06/30/22 04/21/22 18:30 mcg/actuation mist for inhalation (Combivent Respimat) loratadine 10 mg tablet 10 mg PO QAM 06/20/21 06/30/22 04/21/22 08:00 montelukast 10 mg tablet 10 mg PO HS 06/20/21 06/30/22 04/20/22 21:00 omeprazole 20 mg capsule,delayed 20 mg PO QAM 06/20/21 06/30/22 04/21/22 08:30 release azelastine 137 mcg (0.1 %) nasal 1 spray intranasal BID 10/03/21 06/30/22 04/21/22 16:00 spray aerosol fluticasone propionate 50 2 spray intranasal BID 10/03/21 06/30/22 04/21/22 16:00 mcg/actuation nasal spray,suspension multivitamin 1 tab PO QAM 10/03/21 06/30/22 04/21/22 08:00 ondansetron HCl 4 mg tablet 4 mg PO Q8H PRN Nausea 10/31/21 06/30/22 04/20/22 10:00 furosemide 40 mg tablet (Lasix) 80 mg PO QAM 11/20/21 06/30/22 04/21/22 08:30 ascorbic acid (vitamin C) 500 mg 500 mg PO QAM 01/31/22 06/30/22 03/11/22 tablet (Vitamin C) cholecalciferol (vitamin D3) 50 2,000 mcg PO QAM 01/31/22 06/30/22 04/21/22 08:30 mcg (2,000 unit) capsule (Vitamin D3) hydroxyzine HCl 25 mg tablet 25 mg PO TID PRN Anxiety 01/31/22 06/30/22 04/20/22 22:30 spironolactone 100 mg tablet 200 mg PO QAM 01/31/22 06/30/22 04/21/22 09:00 tiotropium bromide 2.5 2 puff inhalation BID 01/31/22 06/30/22 04/21/22 20:05 mcg/actuation mist for inhalation (Spiriva Respimat) thiamine HCl (vitamin B1) 100 mg 100 mg PO QAM #30 tabs 03/23/22 06/30/22 04/21/22 08:30 tablet magnesium oxide 400 mg (241.3 mg 400 mg PO BID 03/25/22 06/30/22 04/21/22 15:00 magnesium) tablet potassium chloride 20 mEq 20 meq PO QAM 03/25/22 06/30/22 04/21/22 08:30 tablet,extended release sodium di- and 2 tab PO QID 03/25/22 06/30/22 04/21/22 16:00 monophosphate-potassium phos monobasic 250 mg tablet (Phospha 250 Neutral) lactulose 10 gram/15 mL oral 30 ml PO QAM 04/17/22 06/30/22 04/21/22 08:00 solution nicotine 14 mg/24 hr daily 1 patch transdermal DAILY 04/17/22 06/30/22 04/20/22 09:00 transdermal patch Active Medications Generic Name Dose Route Start Last Admin Trade Name Freq PRN Reason Stop Dose Admin Acetaminophen 500 mg 07/01/22 19:40 07/16/22 06:27 Acetaminophen 500 Mg Tab PO 07/31/22 19:39 500 mg Q6H PRN Administration pain/fever Albuterol 1 puffs 06/30/22 19:00 07/16/22 05:31 Albuterol Hfa 8 Gm Inhaler (Combivent Respimat P&T Subs) INH 07/30/22 18:59 1 puffs BIDR JUAN Administration Amphetamine/Dextroamphetamine 5 mg 07/13/22 14:00 07/16/22 06:28 Amphetamine Asp/Sulf/Dextramph 5 Mg Tab PO 07/27/22 13:59 5 mg [id number] JUAN Administration Ascorbic Acid 500 mg 07/01/22 09:00 07/15/22 08:13 Ascorbic Acid 500 Mg Tab PO 07/31/22 08:59 500 mg QAM JUAN Administration Baclofen 10 mg 07/13/22 04:25 07/15/22 22:03 Baclofen 10 Mg Tab PO 08/12/22 04:24 10 mg BID JUAN Administration Bupropion HCl 150 mg 07/14/22 14:30 07/15/22 08:15 Bupropion Sr 150 Mg Tabcr PO 08/13/22 14:29 150 mg DAILY JUAN Administration Diclofenac Sodium 4 gm 07/01/22 21:00 07/16/22 08:09 Diclofenac Sod 1% Gel 100 Gm Tube EXT 07/31/22 20:59 4 gm TID JUAN Administration Protocol Fluticasone Propionate 2 sprays 06/30/22 21:00 07/16/22 08:09 Fluticasone Propionate Na Spr 16 Gm Btl LINETTE 07/30/22 20:59 2 sprays BID JUAN Administration Fluticasone/Vilanterol 1 puffs 07/01/22 09:00 07/16/22 08:09 Fluticasone/Vilanterol 200/25mcg 14 Puffs/Inhaler INH 07/31/22 08:59 1 puffs DAILY JUAN Administration Furosemide 80 mg 07/07/22 09:00 07/15/22 08:16 Furosemide 80 Mg Tab PO 08/06/22 08:59 80 mg QAM JUAN Administration Gabapentin 300 mg 07/10/22 21:00 07/15/22 22:02 Gabapentin 300 Mg Cap PO 08/09/22 20:59 300 mg BID JUAN Administration Heparin Sodium (Porcine) 5 ml 07/02/22 00:53 10/25/22 06:36 Heparin 100 Unit/Ml 5ml Flush FLUSH 08/01/22 00:52 5 ml PRN PRN Administration Flush Hydroxyzine HCl 25 mg 06/30/22 17:54 07/15/22 22:01 Hydroxyzine Hcl 25 Mg Tab PO 07/30/22 17:53 25 mg TID PRN Administration Anxiety Ipratropium [place] 1 puffs 06/30/22 19:00 07/16/22 05:30 Ipratropium Hfa Inhaler (Combivent Respimat P&T Subs) INH 07/30/22 18:59 1 puffs BIDR JUAN Administration Lactulose 20 gm 07/01/22 09:00 07/15/22 08:15 Lactulose Syrup 20 Gm/30 Ml Udc PO 07/31/22 08:59 20 gm QAM JUAN Administration Lidocaine 1 patch 06/30/22 16:30 07/16/22 08:11 Lidocaine 5% 1 Patch TD 07/30/22 16:29 1 patch QAM JUAN Administration Loratadine 10 mg 07/01/22 09:00 07/15/22 08:15 Loratadine 10 Mg Tab PO 07/31/22 08:59 10 mg QAM JUAN Administration Magnesium Oxide 400 mg 06/30/22 21:00 07/15/22 22:04 Magnesium Oxide 400 Mg Tab PO 07/30/22 20:59 400 mg BID JUAN Administration Melatonin 3 mg 07/01/22 23:05 07/15/22 22:01 Melatonin 3 Mg Tab PO 07/31/22 23:04 3 mg HS PRN Administration Sleep Miscellaneous 1 each 06/30/22 21:00 07/15/22 21:49 Remove Lidoderm Patch N/A 07/30/22 20:59 1 each DAILY@2100 JUAN Administration Miscellaneous 1 each 07/01/22 09:00 07/16/22 08:10 Remove Nicoderm Patch N/A 07/31/22 08:59 1 each QAM JUAN Administration Montelukast Sodium 10 mg 06/30/22 21:00 07/15/22 22:04 Montelukast Sodium 10 Mg Tablet PO 07/30/22 20:59 10 mg HS JUAN Administration Multivitamins 1 tab 07/01/22 09:00 07/15/22 08:09 Multivitamin Tab PO 07/31/22 08:59 1 tab QAM JUAN Administration Nicotine 14 mg 07/01/22 09:00 07/16/22 08:11 Nicotine 14 Mg/24 Hr Patch TD 07/31/22 08:59 14 mg QAM JUAN Administration Ondansetron HCl 4 mg 06/30/22 19:52 07/16/22 08:08 Ondansetron Inj 2 Mg/Ml 2 Ml Vial IV 07/30/22 19:51 4 mg Q6H PRN Administration Nausea Oxycodone HCl 7.5 mg 07/14/22 22:07 07/16/22 04:52 Oxycodone Hcl Ir 5 Mg Tab (Immediate Release) PO 07/28/22 22:06 7.5 mg QID PRN Administration Pain Pantoprazole Sodium 40 mg 07/01/22 21:00 07/15/22 22:03 Pantoprazole 40 Mg Tab PO 07/31/22 20:59 40 mg BID JUAN Administration Polyethylene Glycol/Electrolytes 16 dose 07/15/22 15:00 07/15/22 15:22 Lavage Solution 4000ml PO 08/14/22 14:59 16 dose TODAY@1500 JUAN Administration Potassium Phosphate 2 tab 06/30/22 21:00 07/15/22 22:00 Pot Phosphate Monobasic W/ Sod Tab PO 07/30/22 20:59 2 tab QID JUAN Administration Sertraline HCl 50 mg 07/14/22 14:30 07/15/22 08:15 Sertraline Hcl 50 Mg Tablet PO 08/13/22 14:29 50 mg QAM JUAN Administration Spironolactone 200 mg 07/07/22 09:00 07/15/22 08:16 Spironolactone 100 Mg Tab PO 08/06/22 08:59 200 mg QAM JUAN Administration Thiamine HCl 100 mg 07/01/22 09:00 07/15/22 08:14 Thiamine Hcl 100 Mg Tab PO 07/31/22 08:59 100 mg QAM JUAN Administration Umeclidinium [place] 1 puffs 07/01/22 09:00 07/16/22 08:10 Umeclidinium [place] 62.5mcg/Blister 7 Puffs/Inhaler INH 07/31/22 08:59 1 puffs QAM JUAN Administration Vitamin D 2,000 units 07/01/22 09:00 07/15/22 08:14 Cholecalciferol 1,000 Units 25 Mcg Tab PO 07/31/22 08:59 2,000 units QAM JUAN Administration Past Medical History Medical History Acute chest wall pain Acute hyponatremia Acute on chronic alcoholic liver disease ADD (attention deficit disorder) Alcohol abuse Alcohol abuse Alcohol intoxication Alcoholic cirrhosis with abn coags Alcoholic hepatitis Anemia pre-op H&H 04/15/22: 05/15 Anxiety Asthma well controlled with inhalers Decompensated hepatic cirrhosis Depression Fatty liver GERD (gastroesophageal reflux disease) History of abdominal paracentesis History of pancreatitis alcoholic 05/2021 per records Hyperbilirubinemia Hypokalemia Hypomagnesemia Jaundice Pneumonia February 2022 treated at [facility]. denies sob currently Portal hypertension Thrombocytopenia Past Family History Family History Grandmother Breast cancer Grandfather Heart disease Other No family history of adverse response to anesthesia Past Surgical History Surgical History H/O wisdom tooth extraction History of esophagogastroduodenoscopy (EGD) Social History Smoking Status: Never smoker tobacco type: cigarettes Smoking cigarettes per day: 1-2 Hx Alcohol Use: Yes Alcohol type: beer alcohol intake frequency: 3 or more drinks per day Alcohol Intake Frequency Comment: pt just got out of rehab, was sober 2 months and says she drank 3 9% beers Hx Substance Use: No substance use type: does not use Physical Exam Vital Signs Last Vital Signs Temp 36.6 C 07/16/22 07:48 Pulse 84 07/16/22 07:48 Resp 16 07/16/22 07:48 BP 106/67 07/16/22 07:48 Pulse Ox 96 07/16/22 07:48 O2 Del Method 07/16/22 07:48 O2 Flow Rate 2 07/13/22 19:45 FiO2 21 07/10/22 07:48 Testing Laboratory Results 07/15/22 16:25 07/16/22 07:26 PT 12.5 Seconds (9.0-12.0) H 06/30/22 12:26 INR 1.2 (0.9-1.1) H 06/30/22 12: APTT 32.0 Seconds (21.0-31.0) H 06/30/22 12:26 Urine Color Yellow 06/30/22 17:00 Urine Appearance Clear (Clear) 06/30/22 17:00 Urine pH 7.0 (4.5-7.5) 06/30/22 17:00 Ur Specific [place] 1.010 (1.000-1.030) 06/30/22 17:00 Urine Protein Negative (Negative) 06/30/22 17:00 Urine Glucose (UA) Negative (Negative) 06/30/22 17:00 Urine Ketones Negative (Negative) 06/30/22 17:00 Urine Nitrite Negative (Negative) 06/30/22 17:00 Ur Leukocyte Esterase Negative (Negative) 06/30/22 17:00 Blood Type O Positive 07/14/22 22:43 Antibody Screen NEGATIVE 07/14/22 22:43 Electrocardiogram Date: 07/15/2215-Jul-2022 07:52:33 [facility]-3 DE ROUTINE RETRIEVAL Normal sinus rhythm Left axis deviation Inferior infarct (cited on or before 14-JUL-2022) Anterior infarct (cited on or before 14-JUL-2022) Abnormal ECG When compared with ECG of 14-JUL-2022 12:07, Sinus rhythm has replaced Ectopic atrial rhythm Chest X-Ray Date: 04/22/22 XR chest 1V portable HISTORY: 37 years-old Female S/P insertion port status post placement of a right IJ [id number]-[id number] catheter COMPARISON: 04/15/2022 TECHNIQUE: AP view of the chest FINDINGS: Cardiomediastinal and hilar silhouettes are within normal limits. 2 cm nodular focus of the left midlung is likely secondary to summation density. Mild pulmonary vascular congestion suggested. Status post placement of a right IJ Lvnljc-t-Sswd catheter distal tip in the expected location of the mid SVC. No pneumothorax, large pleural effusion or lobar airspace consolidation. Levoscoliosis of the upper thoracic spine. Healed chronic left-sided rib fractures. IMPRESSION: Status post placement of a right IJ Abmylu-v-Tbbd catheter. No postprocedural pneumothorax. Echocardiogram Date: 03/28/22 EF: 50-54% LV Function: normal RWMA: + none Small pericardial effusion.
--- NOTE | 2022-07-16 09:41 | Gastroenterology Progress Note ---
Date of Service July 16, 2022 Assessment & Plan (1) Rectal bleeding: Plan: 37 year old female with history of alcoholic hepatitis and cirrhosis w/ report of BRBPR, suspect lower GI bleeding given stable HGB and normal BUN. She notes BRBPR with the first half of her bowel prep, which has since resolved. NPO for EGD/Colon today for evaluation of hematochezia NPO EGD/Colon Trend H&H Transfuse PRN primary service Call with any questions or concerns Thank you for allowing us to participate in the care of this patient. Please call with any acute changes, questions or concerns. Please see addendum below with additional recommendation from my supervising physician. Admission and Anticipated Discharge Date Admission Date: June 30, 2022 Supervising Physician Co-Signing Physician Notes EGD and colon for evaluation of painless hematochezia. Subjective Pt was seen and evaluated, chart reviewed. Notes she had BRBPR with the first half of her bowel prep. This resolved, now notes green/yellow stools No abd pain, nausea, vomiting this AM. Review of Systems Review of Systems: All systems reviewed & are unremarkable except as noted in HPI & below Physical Exam Constitutional: WD/WN, vitals as above Respiratory: normal respiratory effort, lungs clear to auscultation Cardiovascular: Rate/Rhythm: regular rate and regular rhythm Gastrointestinal (Abdomen): normal bowel sounds, soft, nontender, no hepatosplenomegaly Skin: no rashes, warm and dry Results & Data ([facility]) Vital Signs (Past 12 Hours) Vital Signs Temp Pulse Resp BP Pulse Ox O2 Del Method 07/16/22 07:48 36.6 C 84 16 106/67 96 Room Air 07/16/22 05:30 85 16 96 Room Air Laboratory Results 07/16/22 07/15/22 Range/Units 07:26 16:25 Hgb 7.6 L (12.0-16.0) g/dl Hct 22.2 L (34.1-44.9) % Sodium 143 (136-145) mmol/L Potassium 3.3 L (3.5-5.1) mmol/L Chloride 110 H (98-107) mmol/L Carbon Dioxide 24 (21-32) mmol/L Anion Gap 9 (3-11) BUN 9 (6-23) mg/dl Creatinine 1.12 (0.6-1.2) mg/dl Est Cr Clr Drug Dosing 60.2 ml/min Est GFR ( Amer) 73.7 ml/min Est GFR (Non-Af Amer) 63.6 ml/min BUN/Creatinine Ratio 8.0 L (10-20) Glucose 78 (70-99(Fasting)) mg/dl Calcium 8.4 L (8.5-10.1) mg/dl
[2022-07-16] MEDS ORDERED: LIDOCAINE 2% MPF LOCAL 5 ML VIAL INFIL ONE (10:21)
[2022-07-16] MEDS ORDERED: PROPOFOL IV EMULSION 10 MG/ML 20 ML VIAL IV ONE ×2 (10:21→11:05)
--- NOTE | 2022-07-16 10:32 | History & Physical Bridge Note ---
Date of Service July 16, 2022 History & Physical Bridge Note I have examined the patient, reviewed the History & Physical and in the interval since the performance of the History & Physical I have noted the following changes of clinical significance: no changes noted Supervising Physician Co-Signing Physician Notes Patient seen in the pre-op area. Egd/colon for evaluation fo painless hematochezia.
--- NOTE | 2022-07-16 10:35 | History & Physical Bridge Note ---
Date of Service July 16, 2022 History & Physical Bridge Note I have examined the patient, reviewed the History & Physical and in the interval since the performance of the History & Physical I have noted the following changes of clinical significance: no changes noted Supervising Physician Co-Signing Physician Notes Patient seen in the prep area Egd/colon for evaluation of painless rectal bleeding platelets 110 INR 1.2
--- NOTE | 2022-07-16 11:10 | GI REPORT ---
Patient Name: Kathie Burr Procedure Date: 07/16/2022 10:25 AM Date of : 1985 Admit Type: Inpatient Age: 37 Gender: Female Attending MD: Anabela Galarza M.d. Procedure: Upper GI endoscopy Providers: Anabela Galarza M.d. Referring MD: Shola Waddell Md Indications: Hematochezia Medicines: See anesthesia record Complications: No immediate complications. Estimated Blood Loss: Estimated blood loss: none. Procedure: Pre-Anesthesia Assessment: - Patient identification and proposed procedure were verified prior to the procedure by the physician, the nurse and the anesthesiologist. The procedure was verified in the pre-procedure area. - Prior to the procedure, a History and Physical was performed, and patient medications, allergies and sensitivities were reviewed. The patient's tolerance of previous anesthesia was reviewed. - The risks and benefits of the procedure and the sedation options and risks were discussed with the patient. All questions were answered and informed consent was obtained. After obtaining informed consent, the endoscope was passed under direct vision. Throughout the procedure, the patient's blood pressure, pulse, and oxygen saturations were monitored continuously. The Endoscope was introduced through the mouth, and advanced to the second part of duodenum. The upper GI endoscopy was accomplished without difficulty. The patient tolerated the procedure well. Findings: The examined esophagus appeared normal. The Z-line appeared regular. Mild portal hypertensive gastropathy was found in the stomach. The examined stomach appeared normal. The duodenal bulb and second portion of the duodenum appeared normal. Impression: - Normal esophagus. - Z-line regular. - Mild portal hypertensive gastropathy. - Normal stomach. - Normal duodenal bulb and second portion of the duodenum. Recommendation: - No active bleeding noted on today's examination. - Proceed to colonoscopy. Pratibha Wilkinson M.d. 07/16/2022 11:10:03 AM This report has been signed electronically. Note Initiated On: 07/16/2022 10:25 AM Number of Addenda: 0 I attest to the content of the Intraoperative Record and orders documented therein, exceptions below {[id number]}
--- NOTE | 2022-07-16 11:13 | GI REPORT ---
Patient Name: Kathie Burr Procedure Date: 07/16/2022 10:25 AM Date of : 1985 Admit Type: Inpatient Age: 37 Gender: Female Attending MD: Anabela Galarza M.d. Procedure: Colonoscopy Providers: Anabela Galarza M.d. Referring MD: Shola Waddell Md Indications: Hematochezia Medicines: See anesthesia record Complications: No immediate complications. Estimated Blood Loss: Estimated blood loss: none. Procedure: Pre-Anesthesia Assessment: - Patient identification and proposed procedure were verified prior to the procedure by the physician, the nurse and the anesthesiologist. The procedure was verified in the pre-procedure area. - Prior to the procedure, a History and Physical was performed, and patient medications, allergies and sensitivities were reviewed. The patient's tolerance of previous anesthesia was reviewed. - The risks and benefits of the procedure and the sedation options and risks were discussed with the patient. All questions were answered and informed consent was obtained. After I obtained informed consent, the scope was passed under direct vision. Throughout the procedure, the patient's blood pressure, pulse, and oxygen saturations were monitored continuously. The Colonoscope was introduced through the anus and advanced to the cecum, identified by appendiceal orifice and ileocecal valve. The colonoscopy was performed without difficulty. The patient tolerated the procedure well. The quality of the bowel preparation was fair. Findings: The examined colon appeared normal. A 4 mm polyp was found in the transverse colon. The polyp was sessile and was removed with a cold snare. Resection and retrieval were complete. The pathology specimen was placed into Bottle A. Verification of patient identification for the specimen was done by the physician and nurse using the patient's name and medical record number. Non-bleeding internal hemorrhoids were found during retroflexion. Impression: - Preparation of the colon was fair. - The examined colon appeared normal. - One 4 mm polyp in the transverse colon, removed with a cold snare. Resected and retrieved. - Non-bleeding internal hemorrhoids. Recommendation: - Suspect her bleeding may be from hemorrhoids and or mild oozing phg. - Her platelets are 110 and her current INR is less than 1.5 - Would continue with etoh avoidance. Pratibha Wilkinson M.d. 07/16/2022 11:12:45 AM This report has been signed electronically. Note Initiated On: 07/16/2022 10:25 AM Number of Addenda: 0 I attest to the content of the Intraoperative Record and orders documented therein, exceptions below {[id number]}
--- NOTE | 2022-07-16 11:18 | 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 Note ---
Date of Service: July 16, 2022 S/P EGD/Colonoscopy for evaluation of painless hematochezia. EGD with portal hypertensive gastropathy. Colonoscopy with evidence of hemorrhoids and polyp. Suspected hemorrhoidal bleeding vs less likely phg oozzing. Would continue conservative management. PO PPI. Please see endoscopy report and progress notes for further recommendations. Will sign off. Thank you for allowing us to participate in the care of this patient. Please call with any acute changes, questions or concerns. Please see addendum below with additional recommendation from my supervising physician.
[2022-07-16] MEDS: HEPARIN 100 UNIT/ML 5ML FLUSH FLUSH PRN (11:21)
[2022-07-16] MEDS: BACLOFEN 10 MG TAB PO SCH ×2 (12:08→20:14)
[2022-07-16] MEDS: hydrOXYzine HCl 25 MG TAB PO PRN ×2 (12:08→20:17)
[2022-07-16] MEDS: SERTRALINE HCL 50 MG TABLET PO SCH (12:08)
[2022-07-16] MEDS: THIAMINE HCL 100 MG TAB PO SCH (12:09)
[2022-07-16] MEDS: GABAPENTIN 300 MG CAP PO SCH (12:09)
[2022-07-16] MEDS: PANTOprazole 40 MG TAB PO SCH ×2 (12:09→20:15)
[2022-07-16] MEDS: LACTULOSE SYRUP 20 GM/30 ML UDC PO SCH (12:09)
[2022-07-16] MEDS: ASCORBIC ACID 500 MG TAB PO SCH (12:09)
[2022-07-16] MEDS: CHOLECALCIFEROL 1,000 UNITS 25 MCG TAB PO SCH (12:09)
[2022-07-16] MEDS: MULTIVITAMIN TAB PO SCH (12:09)
[2022-07-16] MEDS: LORATADINE 10 MG TAB PO SCH (12:09)
[2022-07-16] MEDS: FUROSEMIDE 80 MG TAB PO SCH (12:09)
[2022-07-16] MEDS: POT PHOSPHATE MONOBASIC W/ SOD TAB PO SCH ×4 (12:09→20:16)
[2022-07-16] MEDS: SPIRONOLACTONE 100 MG TAB PO SCH (12:09)
[2022-07-16] MEDS: MAGNESIUM OXIDE 400 MG TAB PO SCH ×2 (12:09→20:14)
[2022-07-16] MEDS: buPROPion SR 150 MG TABCR PO SCH (12:09)
[2022-07-16] MEDS ORDERED: POTASSIUM CHLORIDE CRTAB 20 MEQ TABCR PO STA (12:21)
--- NOTE | 2022-07-16 14:31 | Anesthesiology Progress Note ---
Date of Service July 16, 2022 Anesthesia Post Procedure Vital Signs Vital Signs: Temp Pulse Pulse Resp BP BP Pulse Ox 07/16/22 11:58 36.5 C 81 16 116/75 99 07/16/22 11:37 72 18 100/52 L 96 07/16/22 11:22 74 16 93/56 L 97 07/16/22 11:08 76 16 99/49 L 96 07/16/22 10:03 36.8 C 78 16 116/75 97 07/16/22 07:48 36.6 C 84 16 106/67 96 07/16/22 05:30 85 16 96 07/15/22 21:22 36.7 C 82 18 115/72 97 07/15/22 18:01 81 18 98 07/15/22 15:32 36.7 C 86 16 104/67 97 O2 Del Method 07/16/22 11:58 Room Air 07/16/22 11:37 Room Air 07/16/22 11:22 Room Air 07/16/22 11:08 Room Air 07/16/22 10:03 Room Air 07/16/22 07:48 Room Air 07/16/22 05:30 Room Air 07/15/22 21:22 Room Air 07/15/22 18:01 Room Air 07/15/22 15:32 Room Air Pain Intensity Ribs: Pain Intensity: 9 Right Ribs: Pain Intensity: 8 Transfer of Care Handoff Completed per policy Notes Mental Status: alert / awake / arousable and participated in evaluation Patient Amnestic to Procedure: Yes Nausea / Vomiting: adequately controlled Pain: adequately controlled Airway Patency, RR, SpO2: stable & adequate BP & HR: stable & adequate Hydration State: stable & adequate Anesthetic Complications: no major complications apparent and Pt Satisfied with anesthetic care
[2022-07-16] MEDS ORDERED: ANUSOL SUPP 1 EA PR PRN (15:41)
--- NOTE | 2022-07-16 15:41 | Hospitalist Progress Note ---
Date of Service July 16, 2022 Assessment & Plan (1) Fall: Plan: - s/p fall in shower in setting of possible ETOH intoxication - Head CT, cervical spine, thoracic, lumbar, abd/pelvis, chest CTs performed - evidence of acute nondisplaced fractures involving the posterior medial aspects of the right ninth and 10th ribs. Otherwise no traumatic injuries noted - Has not used IV Dilaudid for the past 3 days now - Pain management consulted: Recommended gabapentin and baclofen - Pain seems to be under control now with as needed oxycodone - will start to wean - We will taper gabapentin now to daily x2 days then stop - Continue baclofen as this is helping as per patient (2) Closed rib fracture: Plan: - noted - continue IS (3) Alcohol use disorder: Plan: - patient recently relapsed - stressed importance of abstinence - would like to follow up outpatient rehab programs (4) Generalized anxiety disorder: Plan: - co (5) Cirrhosis: Plan: - Patient with history of cirrhosis, following with [facility] - Left 2-month inpatient alcohol treatment facility 4 days [facility] and resumed drinking the day before arrival - 07/14/2022 - Abdominal ultrasound: No ascites - restarted lasix and aldactone now that VAN resolved - Hematochezia reported overnight, 07/15/2022 - s/p for EGD, colonoscopy 07/16/2022 with possible source of bleeding found to have hemorrhoid - hgb stable - Bowel regimen for hemorrhoid (6) Depression: Plan: - Patient reports that she has been taking Zoloft and Wellbutrin prior to admission - Zoloft and Wellbutrin restarted 07/14 - monitor qtc on ECG (7) Asthma: Plan: - continue inhalers Plan DVT Ppx: SCDs - Encouraged to ambulate frequently, patient verbalized understanding Code status: FULL PCP: Ritu Dispo: telemetry Shola Friend MD Hospital Medicine Admission and Anticipated Discharge Date Admission Date: June 30, 2022 Subjective Patient with ETOH cirrhosis with ascites, alcohol use disorder, depression, anxiety who presented after fall in shower with possible ETOH intoxication at that time. Being managed for pain control, weaned off opioids, started on gabapentin and baclofen per pain management. Course complicated by VAN, improved with IVF. Had episode of hematochezia, now s/p EGD and colonoscopy with mild portal hypertensive gastropathy and no source of bleeding on EGD, and polyp and hemorrhoid on colonoscopy. Tolerating regular diet. Patient complains of abdominal pain. Denies n/v/. Denies chest pain, shortness of breath, diarrhea, dysuria. Review of Systems Review of Systems: All systems reviewed & are unremarkable except as noted in Subjective Physical Exam Physical Exam: General- oriented x 3, not in distress, speaks in sentences with no effort or accessory muscle use Eyes- anicteric Neck- no JVD Lungs- clear breath sounds bilaterally, no crackles Heart- normal rate, regular rhythm; no murmurs Abdomen- normal bowel sounds, not distended, soft, no tenderness Extremities- no pretibial edema, no calf tenderness Neuro- alert, oriented x 3; no gross focal neurologic deficits Skin- warm & dry Results & Data Results & Data ([facility]) Vital Signs (Past 12 Hours) Vital Signs Temp Pulse Pulse Resp BP BP Pulse Ox 07/16/22 11:58 36.5 C 81 16 116/75 99 07/16/22 11:37 72 18 100/52 L 96 07/16/22 11:22 74 16 93/56 L 97 07/16/22 11:08 76 16 99/49 L 96 07/16/22 10:03 36.8 C 78 16 116/75 97 07/16/22 07:48 36.6 C 84 16 106/67 96 07/16/22 05:30 85 16 96 O2 Del Method 07/16/22 11:58 Room Air 07/16/22 11:37 Room Air 07/16/22 11:22 Room Air 07/16/22 11:08 Room Air 07/16/22 10:03 Room Air 07/16/22 07:48 Room Air 07/16/22 05:30 Room Air Diagnostic Findings Laboratory Results WBC 4.19 K/ul (4.8-10.8) L 07/15/22 06:34 RBC 2.55 M/uL (3.93-5.22) L 07/15/22 06:34 Hgb 7.6 g/dl (12.0-16.0) L 07/15/22 16:25 Hct 22.2 % (34.1-44.9) L 07/15/22 16:25 MCV 89.0 fL (80.0-100.0) 07/15/22 06:34 MCH 29.8 pg (25.0-34.0) 07/15/22 06:34 MCHC 33.5 g/dL (32.0-36.0) 07/15/22 06:34 RDW Std Deviation 55.9 fL (36.4-46.3) H 07/15/22 06:34 RDW Coeff of Yasmine 17.4 % (11.5-14.5) H 07/15/22 06:34 Plt Count 110 K/uL (130-400) L 07/15/22 06:34 MPV 10.7 fL (9.4-12.3) 07/15/22 06:34 Immature Gran % (Auto) 0.2 % 07/15/22 06:34 Neut % (Auto) 70.0 % 07/15/22 06:34 Lymph % (Auto) 19.3 % 07/15/22 06:34 Hutchinson % (Auto) 8.1 % 07/15/22 06:34 Eos % (Auto) 1.9 % 07/15/22 06:34 Baso % (Auto) 0.5 % 07/15/22 06:34 Neut # (Auto) 2.93 K/uL (1.4-6.5) 07/15/22 06:34 Lymph # (Auto) 0.81 K/uL (1.2-3.4) L 07/15/22 06:34 Hutchinson # (Auto) 0.34 K/uL (0.24-0.82) 07/15/22 06:34 Eos # (Auto) 0.08 K/uL (0-0.50) 07/15/22 06:34 Baso # (Auto) 0.02 K/uL (0-0.2) 07/15/22 06:34 Immature Gran # (Auto) 0.01 K/uL (0.00-0.02) 07/15/22 06:34 RBC Morphology Unremarkable 07/15/22 06:34 Polychromasia 1+ 07/07/22 06:34 Target Cells 1+ 07/09/22 06:44 PT 12.5 Seconds (9.0-12.0) H 06/30/22 12:26 INR 1.2 (0.9-1.1) H 06/30/22 12:26 APTT 32.0 Seconds (21.0-31.0) H 06/30/22 12: PTT Ratio 1.2 06/30/22 12:26 Sodium 143 mmol/L (136-145) 07/16/22 07:26 Potassium 3.3 mmol/L (3.5-5.1) L 07/16/22 07:26 Chloride 110 mmol/L (98-107) H 07/16/22 07:26 Carbon Dioxide 24 mmol/L (21-32) 07/16/22 07:26 Anion Gap 9 (3-11) 07/16/22 07:26 BUN 9 mg/dl (6-23) 07/16/22 07: Creatinine 1.12 mg/dl (0.6-1.2) 07/16/22 07:26 Est Cr Clr Drug Dosing 60.2 ml/min 07/16/22 07:26 Est GFR ( Amer) 73.7 ml/min 07/16/22 07:26 Est GFR (Non-Af Amer) 63.6 ml/min 07/16/22 07:26 BUN/Creatinine Ratio 8.0 (10-20) L 07/16/22 07:26 Glucose 78 mg/dl (70-99(Fasting)) 07/16/22 07:26 POC Glucose 71 mg/dl (70-99) 07/02/22 07:38 Calcium 8.4 mg/dl (8.5-10.1) L 07/16/22 07:26 Phosphorus 4.9 mg/dl (2.5-4.9) 07/11/22 09:50 Magnesium 1.9 mg/dl (1.7-2.4) 07/11/22 09:50 Total Bilirubin 1.7 mg/dl (0.2-1.0) H 07/14/22 10:54 Direct Bilirubin 0.7 mg/dl (0-0.2) H 07/14/22 10:54 AST 37 U/L (13-39) 07/14/22 10:54 ALT 20 U/L (7-52) 07/14/22 10:54 Alkaline Phosphatase 114 U/L (34-104) H 07/14/22 10:54 Ammonia 52.0 umol/L (18-72) 07/02/22 05:48 Troponin I High Sens 5.1 pg/ml (0-14) D 06/30/22 12:26 Total Protein 6.0 gm/dl (6.0-8.3) 07/14/22 10:54 Albumin 3.4 gm/dl (3.4-5.0) 07/14/22 10:54 Globulin 2.4 gm/dl (2.5-4.0) L 07/06/22 04:46 Albumin/Globulin Ratio 1.2 (0.9-2) 07/06/22 04:46 Lipase 16 U/L (11-82) 06/30/22 12:26 Urine Color Yellow 06/30/22 17:00 Urine Appearance Clear (Clear) 06/30/22 17:00 Urine pH 7.0 (4.5-7.5) 06/30/22 17:00 Ur Specific Hubbard 1.010 (1.000-1.030) 06/30/22 17:00 Urine Protein Negative (Negative) 06/30/22 17:00 Urine Glucose (UA) Negative (Negative) 06/30/22 17:00 Urine Ketones Negative (Negative) 06/30/22 17:00 Urine Blood Negative (Negative) 06/30/22 17:00 Urine Nitrite Negative (Negative) 06/30/22 17:00 Urine Bilirubin Negative (Negative) 06/30/22 17:00 Urine Urobilinogen Negative (Negative) 06/30/22 17:00 Ur Leukocyte Esterase Negative (Negative) 06/30/22 17:00 POC Ur Test Cancelled 07/01/22 18:52 Urine Opiates Screen Pos (Neg) H 06/30/22 17:00 U Codeine Confrm GC/MS NEGATIVE ng/mL (<50) 06/30/22 17:00 Ur Morphine (GC/MS) 465 ng/mL (<50) H 06/30/22 17:00 Ur Hydrocodone (GC/MS) NEGATIVE ng/mL (<50) 06/30/22 17:00 Ur Norhydrocodone NEGATIVE ng/mL (<50) 06/30/22 17:00 Ur Noroxycodone NEGATIVE ng/mL (<50) 06/30/22 17:00 Urine Oxycodone (GC/MS) NEGATIVE ng/mL (<50) 06/30/22 17:00 U Oxymorphone GC/MS NEGATIVE ng/mL (<50) 06/30/22 17:00 Ur Methadone, Qual Neg (Neg) 06/30/22 17:00 Ur Hydromorphone (GC/MS) NEGATIVE ng/mL (<50) 06/30/22 17:00 Urine Barbiturates Neg (Neg) 06/30/22 17:00 Ur Phencyclidine (PCP) Neg (Neg) 06/30/22 17:00 U Amphetamin/Meth Scrn Neg (Neg) 06/30/22 17:00 Urine MDEA negative 06/30/22 17:00 MDMA (Ecstasy) Screen Pos (Neg) H 06/30/22 17:00 MDMA negative 06/30/22 17:00 Urine MDMA negative 06/30/22 17:00 U Benzodiazepines Scrn Neg (Neg) 06/30/22 17:00 Ur Cocaine Metabolite Neg (Neg) 06/30/22 17:00 U Marijuana (THC) Screen Neg (Neg) 06/30/22 17:00 Drug Screen Comment SEE NOTE 06/30/22 17:00 Ethyl Alcohol mg/dL 252.9 mg/dl (<10.0) H 06/30/22 12:26 SARS-CoV-2, RNA, NAAT NEGATIVE (NEGATIVE) 06/30/22 15:30 Blood Type O Positive 07/14/22 22:43 Antibody Screen NEGATIVE 07/14/22 22:[address] 06/30/22 13:14 CT chest diagnostic wo con, CT thoracic spine wo con, CT lumbar spine wo con, CT abd pelvis wo con CLINICAL HISTORY: 37 years-old Female with trauma. Acute chest and abdominal trauma status post fall TECHNIQUE: Multiaxial CT images of the chest, abdomen and pelvis, CT and thoracic spine were performed without contrast. A dose lowering technique was utilized adhering to the principles of ALARA. COMPARISON: Chest CT 07/13/21, CT abdomen 04/15/22. FINDINGS: CT CHEST: The lungs are clear. The mediastinal vascular structures are within normal limits. Right IJ [id number]-[id number] catheter distal tip terminates within the mid SVC. No mediastinal or hilar lymphadenopathy. No pleural effusion or pneumothorax. Mild sigmoidal scoliosis of the thoracic spine. No acute fracture identified. CT ABDOMEN/PELVIS: No pneumatosis or pneumoperitoneum. Spleen is enlarged measuring 13.4 cm in length. Unremarkable pancreas with a few punctate calcifications noted within the uncinate process. The adrenal glands are within normal limits. Punctate calcification within the jessica hepatis may represent an adherent gallstone. Mild marginal nodularity of the liver suggestive of cirrhosis. No hepatic mass identified. Unremarkable kidneys, urinary bladder, uterus and adnexa. Aorta and IVC are unremarkable. Abdominal varicosities. There is no lymphadenopathy identified. No bowel obstruction or bowel wall thickening. Moderate fecal retention. Noninflamed appendix. No ascites or mesenteric inflammation. Tiny fat filled umbilical hernia. No acute fracture identified. CT THORACIC SPINE: Upper thoracic levoscoliosis. Mild multilevel spondylitic spurring and facet arthrosis. The intervertebral disc spaces are generally well maintained. Equivocal acute nondisplaced fracture involves the posterior medial aspect of the right ninth and 10th ribs. (Please see image 186 of series 10 and image 21 of the sagittal series. No acute vertebral body fracture identified. CT LUMBAR SPINE: Mild lumbar levoscoliosis. Mild to moderate multilevel facet arthrosis. No acute fracture, subluxation or endplate erosion. The imaged sacrum and iliac bones appear intact. Healed chronic fracture of the right inferior L5 articular facet. IMPRESSION: 1. Suggestion of subtle acute nondisplaced fractures involving the posterior medial aspects of the right ninth and 10th ribs. Correlate with point tenderness. 2. No pneumothorax. 3. No acute posttraumatic intrathoracic, intra-abdominal or intrapelvic abnormality 4. Cirrhosis with splenomegaly and abdominal varicosities compatible with portal venous hypertension. ACT 112: Negative or not required by law. Electronically signed by: Bud Madera M.D. 06/30/2022 3:[address] 06/30/22 13:22 CT chest diagnostic wo con, CT thoracic spine wo con, CT lumbar spine wo con, CT abd pelvis wo con CLINICAL HISTORY: 37 years-old Female with trauma. Acute chest and abdominal trauma status post fall TECHNIQUE: Multiaxial CT images of the chest, abdomen and pelvis, CT and thoracic spine were performed without contrast. A dose lowering technique was utilized adhering to the principles of ALARA. COMPARISON: Chest CT 07/13/21, CT abdomen 04/15/22. FINDINGS: CT CHEST: The lungs are clear. The mediastinal vascular structures are within normal limits. Right IJ Qdethj-u-Oiqa catheter distal tip terminates within the mid SVC. No mediastinal or hilar lymphadenopathy. No pleural effusion or pneumothorax. Mild sigmoidal scoliosis of the thoracic spine. No acute fracture identified. CT ABDOMEN/PELVIS: No pneumatosis or pneumoperitoneum. Spleen is enlarged measuring 13.4 cm in length. Unremarkable pancreas with a few punctate calcifications noted within the uncinate process. The adrenal glands are within normal limits. Punctate calcification within the jessica hepatis may represent an adherent gallstone. Mild marginal nodularity of the liver suggestive of cirrhosis. No hepatic mass identified. Unremarkable kidneys, urinary bladder, uterus and adnexa. Aorta and IVC are unremarkable. Abdominal varicosities. There is no lymphadenopathy identified. No bowel obstruction or bowel wall thickening. Moderate fecal retention. Noninflamed appendix. No ascites or mesenteric inflammation. Tiny fat filled umbilical hernia. No acute fracture identified. CT THORACIC SPINE: Upper thoracic levoscoliosis. Mild multilevel spondylitic spurring and facet arthrosis. The intervertebral disc spaces are generally well maintained. Equivocal acute nondisplaced fracture involves the posterior medial aspect of the right ninth and 10th ribs. (Please see image 186 of series 10 and image 21 of the sagittal series. No acute vertebral body fracture identified. CT LUMBAR SPINE: Mild lumbar levoscoliosis. Mild to moderate multilevel facet arthrosis. No acute fracture, subluxation or endplate erosion. The imaged sacrum and iliac bones appear intact. Healed chronic fracture of the right inferior L5 articular facet. IMPRESSION: 1. Suggestion of subtle acute nondisplaced fractures involving the posterior medial aspects of the right ninth and 10th ribs. Correlate with point tenderness. 2. No pneumothorax. 3. No acute posttraumatic intrathoracic, intra-abdominal or intrapelvic abnormality 4. Cirrhosis with splenomegaly and abdominal varicosities compatible with portal venous hypertension. ACT 112: Negative or not required by law. Electronically signed by: Bud Madera M.D. 06/30/2022 3:[address] 06/30/22 13:22 CT chest diagnostic wo con, CT thoracic spine wo con, CT lumbar spine wo con, CT abd pelvis wo con CLINICAL HISTORY: 37 years-old Female with trauma. Acute chest and abdominal trauma status post fall TECHNIQUE: Multiaxial CT images of the chest, abdomen and pelvis, CT and thoracic spine were performed without contrast. A dose lowering technique was utilized adhering to the principles of ALARA. COMPARISON: Chest CT 07/13/21, CT abdomen 04/15/22. FINDINGS: CT CHEST: The lungs are clear. The mediastinal vascular structures are within normal limits. Right IJ Onenij-z-Qifk catheter distal tip terminates within the mid SVC. No mediastinal or hilar lymphadenopathy. No pleural effusion or pneumothorax. Mild sigmoidal scoliosis of the thoracic spine. No acute fracture identified. CT ABDOMEN/PELVIS: No pneumatosis or pneumoperitoneum. Spleen is enlarged measuring 13.4 cm in length. Unremarkable pancreas with a few punctate calcifications noted within the uncinate process. The adrenal glands are within normal limits. Punctate calcification within the jessica hepatis may represent an adherent gallstone. Mild marginal nodularity of the liver suggestive of cirrhosis. No hepatic mass identified. Unremarkable kidneys, urinary bladder, uterus and adnexa. Aorta and IVC are unremarkable. Abdominal varicosities. There is no lymphadenopathy identified. No bowel obstruction or bowel wall thickening. Moderate fecal retention. Noninflamed appendix. No ascites or mesenteric inflammation. Tiny fat filled umbilical hernia. No acute fracture identified. CT THORACIC SPINE: Upper thoracic levoscoliosis. Mild multilevel spondylitic spurring and facet arthrosis. The intervertebral disc spaces are generally well maintained. Equivocal acute nondisplaced fracture involves the posterior medial aspect of the right ninth and 10th ribs. (Please see image 186 of series 10 and image 21 of the sagittal series. No acute vertebral body fracture identified. CT LUMBAR SPINE: Mild lumbar levoscoliosis. Mild to moderate multilevel facet arthrosis. No acute fracture, subluxation or endplate erosion. The imaged sacrum and iliac bones appear intact. Healed chronic fracture of the right inferior L5 articular facet. IMPRESSION: 1. Suggestion of subtle acute nondisplaced fractures involving the posterior medial aspects of the right ninth and 10th ribs. Correlate with point tenderness. 2. No pneumothorax. 3. No acute posttraumatic intrathoracic, intra-abdominal or intrapelvic abnormality 4. Cirrhosis with splenomegaly and abdominal varicosities compatible with portal venous hypertension. ACT 112: Negative or not required by law. Electronically signed by: Bud Madera M.D. 06/30/2022 3:[address] 06/30/22 13:[address] DOSE: 959.53 mGy.cm HISTORY: fall TECHNIQUE: Multiaxial CT images of the cervical spine were performed and reformatted in the sagittal and coronal plane without the use of contrast. A dose lowering technique was utilized adhering to the principles of ALARA. COMPARISON: Cervical spine CT 07/22/2021. FINDINGS: No fractures. No subluxation. Prevertebral soft tissues and the C1-C2 interval are intact. No pneumothorax. There is a partially visualized right jugular central venous catheter. IMPRESSION: No fractures within the cervical spine. ACT 112: Negative or not required by law. Electronically signed by: Weston Cisneros M.D. 06/30/2022 2:33 PM Abdomen/Pelvis CT 07/03/22 14:[address] WITH IV CONTRAST CT DOSE: 345.53 mGy.cm HISTORY: Acute right lower quadrant abdominal pain R/O Appendicitis TECHNIQUE: Multiaxial CT images of the abdomen and pelvis were performed following the IV administration of 93 cc of Optiray, A dose lowering technique was utilized adhering to the principles of ALARA. COMPARISON STUDY: CT abdomen and pelvis 06/30/2022 FINDINGS: Trace pleural effusions with dependent bibasilar atelectasis. No pneumatosis or pneumoperitoneum. Spleen is enlarged measuring 13.4 cm in length. Unremarkable pancreas with a few punctate calcifications noted within the uncinate process. The adrenal glands are within normal limits. Contracted gallbladder. Mild marginal nodularity of the liver suggestive of cirrhosis. . Liver is diffusely heterogeneous. No hepatic mass identified. Unremarkable kidneys, uterus and adnexa. Mild nonspecific urinary bladder wall thickening. Aorta and IVC are unremarkable. Abdominal varicosities. There is no lymphadenopathy identified. Distended debris-filled stomach suggestive of recent meal. Small volume of abdominal pelvic ascites with diffuse mesenteric edema is new from prior. Moderate to extensive colonic fecal retention as progressed. Noninflamed appendix. Mild colonic diverticulosis. Mild wall thickening of the cecum and ascending colon is new from the prior study. Tiny fat filled umbilical hernia. The previously questioned subtle fractures of the posterior right ninth and 10th ribs are not appreciated. IMPRESSION: 1. Cirrhosis with splenomegaly and abdominal varicosities compatible with portal venous hypertension redemonstrated. There is new small volume of abdominal pelvic ascites with mesenteric edema. 2. Noninflamed appendix. 3. Wall thickening of the cecum and proximal ascending colon is new from the prior exam and may be secondary to portal colopathy. An infectious or inflammatory colitis could appear similarly. 4. Moderate to extensive fecal retention. 5. Trace pleural effusions. ACT 112: Negative or not required by law. The above report was generated using voice recognition software. It may contain grammatical, syntax or spelling errors. Electronically signed by: Bud Madera M.D. 07/03/2022 4:[address] 07/09/22 09:[address] DOSE: 638.56 mGycm HISTORY: s/p fall, head trauma TECHNIQUE: Multiaxial CT images of the head were performed without the use of intravenous contrast. Automated exposure control was utilized for this study. A dose lowering technique was utilized adhering to the principles of ALARA. Comparison: Head CT 06/30/2022. Findings: The paranasal sinuses and mastoid air cells are clear. The calvarium and skull base are intact. The ventricles and sulci are within normal limits. There is no mass, hematoma, midline shift, or acute infarct. Impression: No acute intracranial abnormality. ACT 112: Negative or not required by law. Electronically signed by: Weston Cisneros M.D. 07/09/2022 10:09 AM Ribs w/Chest X-Ray 07/11/22 16:15 PA CHEST WITH RIGHT-SIDED RIB SERIES CLINICAL HISTORY: Follow-up rib fractures. FINDINGS: A PA chest radiograph with 4 additional views from a right sided rib series is compared to radiographs and chest CT dated 06/30/2022. A right internal jugular central medicine infusion port is unchanged in position. The cardiomediastinal silhouette is unremarkable. The lungs and pleural spaces are clear noting bibasilar atelectasis. No pneumothorax is seen. There is no radiographic evidence of acute/displaced right-sided rib fracture on the rib series. There are chronic/healed left-sided rib fractures. There is thoracolumbar scoliosis. IMPRESSION: 1 No active disease in the chest. 2. There is no radiographic evidence of acute/displaced right-sided rib fracture in the rib series. Subtle fractures questioned by CT are not apparent on x-ray. ACT 112: Negative or not required by law. Electronically signed by: Brodie Gillis M.D. 07/11/2022 4:49 PM Abdomen Ultrasound 07/14/22 10:54 ULTRASOUND ASCITES CHECK CLINICAL HISTORY: Ascites. COMPARISON STUDY: Ultrasound ascites check dated 07/07/2022. FINDINGS: Real-time grayscale sonography of all 4 quadrants of the abdomen is performed to assess for abdominal ascites. No abdominal ascites is identified. The liver is cirrhotic in morphology and appears steatotic. The spleen is enlarged measuring 17.7 cm in length. IMPRESSION: No abdominal ascites is identified. Electronically signed by: Brodie Gillis M.D. 07/14/2022 12:02 PM Medications Administered Current Inpatient Medications Acetaminophen (Acetaminophen 500 Mg Tab) 500 mg PO Q6H PRN PRN Reason: pain/fever Stop: 07/31/22 19:39 Last Admin: 07/16/22 06:27 Dose: 500 mg Albuterol (Albuterol Hfa 8 Gm Inhaler) 2 puffs INH BID PRN PRN Reason: Shortness Of Breath Stop: 07/30/22 17:53 Albuterol (Albuterol Hfa 8 Gm Inhaler (Combivent Respimat P&T Subs)) 1 puffs INH BIDR [facility] Stop: 07/30/22 18:59 Last Admin: 07/16/22 05:31 Dose: 1 puffs Amphetamine/Dextroamphetamine (Amphetamine Asp/Sulf/Dextramph 5 Mg Tab) 5 mg PO [id number] [facility] Stop: 07/27/22 13:59 Last Admin: 07/16/22 14:00 Dose: 5 mg Ascorbic Acid (Ascorbic Acid 500 Mg Tab) 500 mg PO QAM [facility] Stop: 07/31/22 08:59 Last Admin: 07/16/22 12:09 Dose: 500 mg Baclofen (Baclofen 10 Mg Tab) 10 mg PO BID [facility] Stop: 08/12/22 04:24 Last Admin: 07/16/22 12:08 Dose: 10 mg Bupropion HCl (Bupropion Sr 150 Mg Tabcr) 150 mg PO DAILY [facility] Stop: 08/13/22 14:29 Last Admin: 07/16/22 12:09 Dose: 150 mg Diclofenac Sodium (Diclofenac Sod 1% Gel 100 Gm Tube) 4 gm EXT TID [facility]; Protocol Stop: 07/31/22 20:59 Last Admin: 07/16/22 14:00 Dose: 4 gm Fluticasone Propionate (Fluticasone Propionate Na Spr 16 Gm Btl) 2 sprays LINETTE BID JUAN Stop: 07/30/22 20:59 Last Admin: 07/16/22 08:09 Dose: 2 sprays Fluticasone/Vilanterol (Fluticasone/Vilanterol 200/25mcg 14 Puffs/Inhaler) 1 puffs INH DAILY JUAN Stop: 07/31/22 08:59 Last Admin: 07/16/22 08:09 Dose: 1 puffs Furosemide (Furosemide 80 Mg Tab) 80 mg PO QAM [facility] Stop: 08/06/22 08:59 Last Admin: 07/16/22 12:09 Dose: 80 mg Gabapentin (Gabapentin 300 Mg Cap) 300 mg PO BID [facility] Stop: 08/09/22 20:59 Last Admin: 07/16/22 12:09 Dose: 300 mg Heparin Sodium (Porcine) (Heparin 100 Unit/Ml 5ml Flush) 5 ml FLUSH PRN PRN PRN Reason: Flush Stop: 08/01/22 00:52 Last Admin: 07/16/22 11:21 Dose: 5 ml Hydroxyzine HCl (Hydroxyzine Hcl 25 Mg Tab) 25 mg PO TID PRN PRN Reason: Anxiety Stop: 07/30/22 17:53 Last Admin: 07/16/22 12:08 Dose: 25 mg Ipratropium Lowell (Ipratropium Hfa Inhaler (Combivent Respimat P&T Subs)) 1 puffs INH BIDR [facility] Stop: 07/30/22 18:59 Last Admin: 07/16/22 05:30 Dose: 1 puffs Lactulose (Lactulose Syrup 20 Gm/30 Ml Udc) 20 gm PO QAM [facility] Stop: 07/31/22 08:59 Last Admin: 07/16/22 12:09 Dose: 20 gm Lidocaine (Lidocaine 5% 1 Patch) 1 patch TD [facility] Stop: 07/30/22 16:29 Last Admin: 07/16/22 08:11 Dose: 1 patch Loratadine (Loratadine 10 Mg Tab) 10 mg PO QAM [facility] Stop: 07/31/22 08:59 Last Admin: 07/16/22 12:09 Dose: 10 mg Lorazepam (Lorazepam 1 Mg Tab) 1 mg PO UD PRN; Protocol PRN Reason: EtOH Withdrawal AWSS Score 6,7 Stop: 07/30/22 16:54 Lorazepam (Lorazepam 1 Mg Tab) 2 mg PO UD PRN; Protocol PRN Reason: EtOH Withdrawal AWSS Score 8,9 Stop: 07/30/22 16:54 Magnesium Oxide (Magnesium Oxide 400 Mg Tab) 400 mg PO BID [facility] Stop: 07/30/22 20:59 Last Admin: 07/16/22 12:09 Dose: 400 mg Melatonin (Melatonin 3 Mg Tab) 3 mg PO HS PRN PRN Reason: Sleep Stop: 07/31/22 23:04 Last Admin: 07/15/22 22:01 Dose: 3 mg Miscellaneous (Remove Lidoderm Patch) 1 each N/A DAILY@2100 [facility] Stop: 07/30/22 20:59 Last Admin: 07/15/22 21:49 Dose: 1 each Miscellaneous (Remove Nicoderm Patch) 1 each N/A QAM [facility] Stop: 07/31/22 08:59 Last Admin: 07/16/22 08:10 Dose: 1 each Montelukast Sodium (Montelukast Sodium 10 Mg Tablet) 10 mg PO HS [facility] Stop: 07/30/22 20:59 Last Admin: 07/15/22 22:04 Dose: 10 mg Multivitamins (Multivitamin Tab) 1 tab PO QAM [facility] Stop: 07/31/22 08:59 Last Admin: 07/16/22 12:09 Dose: 1 tab Nicotine (Nicotine 14 Mg/24 Hr Patch) 14 mg TD QAM [facility] Stop: 07/31/22 08:59 Last Admin: 07/16/22 08:11 Dose: 14 mg Ondansetron HCl (Ondansetron Inj 2 Mg/Ml 2 Ml Vial) 4 mg IV Q6H PRN PRN Reason: Nausea Stop: 07/30/22 19:51 Last Admin: 07/16/22 08:08 Dose: 4 mg Oxycodone HCl (Oxycodone Hcl Ir 5 Mg Tab (Immediate Release)) 7.5 mg PO QID PRN PRN Reason: Pain Stop: 07/28/22 22:06 Last Admin: 07/16/22 12:08 Dose: 7.5 mg Pantoprazole Sodium (Pantoprazole 40 Mg Tab) 40 mg PO BID [facility] Stop: 07/31/22 20:59 Last Admin: 07/16/22 12:09 Dose: 40 mg Polyethylene Glycol (Polyethylene (Miralax) 17 Gm Pack) 17 gm PO DAILY PRN PRN Reason: Constipation Stop: 07/30/22 19:51 Potassium Phosphate (Pot Phosphate Monobasic W/ Sod Tab) 2 tab PO QID [facility] Stop: 07/30/22 20:59 Last Admin: 07/16/22 12:29 Dose: Not Given Sertraline HCl (Sertraline Hcl 50 Mg Tablet) [facility] [place]: 08/13/22 14:29 Last Admin: 07/16/22 12:08 Dose: 50 mg Spironolactone (Spironolactone 100 Mg Tab) [facility] [place] Stop: 08/06/22 08:59 Last Admin: 07/16/22 12:09 Dose: 200 mg Thiamine HCl (Thiamine Hcl 100 Mg Tab) [facility] [place] Stop: 07/31/22 08:59 Last Admin: 07/16/22 12:09 Dose: 100 mg Umeclidinium [place] (Umeclidinium [place] 62.5mcg/Blister 7 Puffs/Inhaler) 1 puffs [facility] Stop: 07/31/22 08:59 Last Admin: 07/16/22 08:10 Dose: 1 puffs Vitamin D (Cholecalciferol 1,000 Units 25 Mcg Tab) 2,000 units PO QAM [facility] Stop: 07/31/22 08:59 Last Admin: 07/16/22 12:09 Dose: 2,000 units (1) Cirrhosis Ascites presence: with ascites Hepatic cirrhosis type: alcoholic cirrhosis Qualified Code(s): K70.31 - Alcoholic cirrhosis of liver with ascites
[2022-07-16] MEDS: MONTELUKAST SODIUM 10 MG TABLET PO SCH (20:13)
[2022-07-16] MEDS: MELATONIN 3 MG TAB PO PRN (20:16)
--- NOTE | 2022-07-16 23:11 | Electrocardiogram Report ---
Test Reason : Blood Pressure : / mmHG Vent. 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
[2022-07-17] MEDS: oxyCODONE HCL IR 5 MG TAB (IMMEDIATE RELEASE) PO PRN ×3 (04:43→21:42)
[2022-07-17] MEDS: hydrOXYzine HCl 25 MG TAB PO PRN ×3 (04:43→21:49)
[2022-07-17] MEDS: Ipratropium HFA Inhaler (Combivent Respimat P&T Subs) INH SCH ×2 (06:12→20:09)
[2022-07-17] MEDS: Albuterol HFA 8 GM Inhaler (Combivent Respimat P&T Subs) INH SCH (06:13)
[2022-07-17] MEDS: AMPHETAMINE ASP/SULF/DEXTRAMPH 5 MG TAB PO SCH ×2 (06:22→13:18)
[2022-07-17 06:30] LABS: Basophils # (auto) 0.02 K/uL (0-0.2); Basophils % (auto) 0.6 %; Eosinophils # (auto) 0.05 K/uL (0-0.50); Eosinophils % (auto) 1.5 %; Hematocrit (blood only) 22.2 % (34.1-44.9); Hemoglobin 7.4 g/dl (12.0-16.0); Immature Granulocytes # (auto) 0.02 K/uL (0.00-0.02); Immature Granulocytes % (auto) 0.6 %; Lymphocytes % (auto) 17.5 %; Monocytes # (auto) 0.36 K/uL (0.24-0.82); Monocytes % (auto) 10.5 %; Neutrophils # (auto) 2.38 K/uL (1.4-6.5); Neutrophils % (auto) 69.3 %; Platelet Count 100 K/uL (130-400); White Blood Count 3.43 K/ul (4.8-10.8)
[2022-07-17 06:36] LABS: INR 1.3 (0.9-1.1); Prothrombin Time 13.7 Seconds (9.0-12.0)
[2022-07-17 07:00] LABS: Mean Corpuscular Hemoglobin 29.4 pg (25.0-34.0); Mean Corpuscular Hgb Conc 33.3 g/dL (32.0-36.0); Mean Corpuscular Volume 88.1 fL (80.0-100.0); Poikilocytosis Present; RDW Coefficient of Variation 17.4 % (11.5-14.5); RDW Standard Deviation 55.1 fL (36.4-46.3); Red Blood Count 2.52 M/uL (3.93-5.22)
[2022-07-17 07:23] LABS: Albumin Globulin Ratio 1.5 (0.9-2); Albumin Level 3.4 gm/dl (3.4-5.0); BUN Creatinine Ratio 8.9 (10-20); Bilirubin,Total 1.9 mg/dl (0.2-1.0); Calcium 8.8 mg/dl (8.5-10.1); Creatinine Clr Calc Pharmacy 54.8 ml/min; Est GFR (African American) 65.8 ml/min; Est GFR (Non-African American) 56.8 ml/min; Globulin 2.3 gm/dl (2.5-4.0); Magnesium 1.6 mg/dl (1.7-2.4); Phosphorus 3.7 mg/dl (2.5-4.9); Potassium 3.9 mmol/L (3.5-5.1); Total Protein 5.7 gm/dl (6.0-8.3)
[2022-07-17] MEDS ORDERED: LACTATED RINGER'S 500 ML IV ONE (08:02)
[2022-07-17] MEDS: ASCORBIC ACID 500 MG TAB PO SCH (08:27)
[2022-07-17] MEDS: CHOLECALCIFEROL 1,000 UNITS 25 MCG TAB PO SCH (08:28)
[2022-07-17] MEDS: buPROPion SR 150 MG TABCR PO SCH (08:28)
[2022-07-17] MEDS: BACLOFEN 10 MG TAB PO SCH ×2 (08:28→21:42)
[2022-07-17] MEDS: DICLOFENAC SOD 1% GEL 100 GM TUBE EXT SCH ×3 (08:28→21:43)
[2022-07-17] MEDS: FLUTICASONE PROPIONATE NA SPR 16 GM BTL NAE SCH ×2 (08:29→21:43)
[2022-07-17] MEDS: UMECLIDINIUM BROMIDE 62.5MCG/BLISTER 7 PUFFS/INHALER INH SCH (08:29)
[2022-07-17] MEDS: FLUTICASONE/VILANTEROL 200/25MCG 14 PUFFS/INHALER INH SCH (08:29)
[2022-07-17] MEDS: FUROSEMIDE 80 MG TAB PO SCH (08:29)
[2022-07-17] MEDS: LIDOCAINE 5% 1 PATCH TD SCH (08:30)
[2022-07-17] MEDS: LACTULOSE SYRUP 20 GM/30 ML UDC PO SCH (08:30)
[2022-07-17] MEDS: MULTIVITAMIN TAB PO SCH (08:31)
[2022-07-17] MEDS: MAGNESIUM OXIDE 400 MG TAB PO SCH ×2 (08:31→21:42)
[2022-07-17] MEDS: LORATADINE 10 MG TAB PO SCH (08:31)
[2022-07-17] MEDS: PANTOprazole 40 MG TAB PO SCH ×2 (08:32→21:42)
[2022-07-17] MEDS: NICOTINE 14 MG/24 HR PATCH TD SCH (08:32)
[2022-07-17] MEDS: POT PHOSPHATE MONOBASIC W/ SOD TAB PO SCH ×4 (08:32→21:42)
[2022-07-17] MEDS: SPIRONOLACTONE 100 MG TAB PO SCH (08:33)
[2022-07-17] MEDS: THIAMINE HCL 100 MG TAB PO SCH (08:33)
[2022-07-17] MEDS: SERTRALINE HCL 50 MG TABLET PO SCH (08:33)
[2022-07-17] MEDS ORDERED: MAGNESIUM OXIDE 400 MG TAB PO SCH (09:00)
[2022-07-17] MEDS ORDERED: GABAPENTIN 300 MG CAP PO SCH (09:00)
[2022-07-17] MEDS ORDERED: LIDOCAINE 5% 1 PATCH TD SCH (10:15)
[2022-07-17] MEDS: KETOROLAC TROMETHAMINE 15 MG/ML VIAL IV PRN ×2 (10:50→16:56)
--- NOTE | 2022-07-17 11:49 | Hospitalist Progress Note ---
Date of Service July 17, 2022 Assessment & Plan (1) Fall: Plan: - s/p fall in shower in setting of possible ETOH intoxication - Head CT, cervical spine, thoracic, lumbar, abd/pelvis, chest CTs performed - evidence of acute nondisplaced fractures involving the posterior medial aspects of the right ninth and 10th ribs. Otherwise no traumatic injuries noted - Has not used IV Dilaudid for the past 3 days now - Pain management consulted: Recommended gabapentin and baclofen - Pain seems to be under control now with as needed oxycodone - will start to wean - We will taper gabapentin now to daily x2 days then stop - last day today - Continue baclofen as this is helping as per patient - will slowly tape - added Toradol and Voltaren to help with weaning opioids (2) Closed rib fracture: Plan: - noted - continue IS (3) Alcohol use disorder: Plan: - patient recently relapsed - stressed importance of abstinence - would like to follow up outpatient rehab programs (4) Generalized anxiety disorder: Plan: - co (5) Cirrhosis: Plan: - Patient with history of cirrhosis, following with Marly VILLAFUERTE - Left 2-month inpatient alcohol treatment facility 4 days [facility] and resumed drinking the day before arrival - 07/14/2022 - Abdominal ultrasound: No ascites - restarted lasix and aldactone now that VAN resolved - Hematochezia reported overnight, 07/15/2022 - s/p for EGD, colonoscopy 07/16/2022 with possible source of bleeding found to have hemorrhoid - hgb stable - Bowel regimen for hemorrhoid (6) Depression: Plan: - Patient reports that she has been taking Zoloft and Wellbutrin prior to admission - Zoloft and Wellbutrin restarted 07/14 - monitor qtc on ECG (7) Asthma: Plan: - continue inhalers Plan DVT Ppx: SCDs - Encouraged to ambulate frequently, patient verbalized understanding Code status: FULL PCP: Ritu Dispo: telemetry Shola Friend MD Hospital Medicine Admission and Anticipated Discharge Date Admission Date: June 30, 2022 Subjective Patient with ETOH cirrhosis with ascites, alcohol use disorder, depression, anxiety who presented after fall in shower with possible ETOH intoxication at that time. Being managed for pain control, weaned off opioids, started on gabapentin and baclofen per pain management. Course complicated by VAN, improved with IVF. Had episode of hematochezia, now s/p EGD and colonoscopy with mild portal hypertensive gastropathy and no source of bleeding on EGD, and polyp and hemorrhoid on colonoscopy. Tolerating regular diet. Patient complains of pain on right flank/shoulder area. Denies n/v/. Denies chest pain, shortness of breath, diarrhea, dysuria. Review of Systems Review of Systems: all noted and negative except for above Physical Exam Physical Exam: General- oriented x 3, not in distress, speaks in sentences with no effort or accessory muscle use Eyes- anicteric Neck- no JVD Lungs- clear breath sounds bilaterally, no crackles Heart- normal rate, regular rhythm; no murmurs Abdomen- normal bowel sounds, not distended, soft, no tenderness Extremities- no pretibial edema, no calf tenderness Neuro- alert, oriented x 3; no gross focal neurologic deficits Skin- warm & dry Results & Data Results & Data ([facility]) Vital Signs (Past 12 Hours) Vital Signs Temp Pulse Resp BP Pulse Ox O2 Del Method 07/17/22 07:20 37.1 C 88 16 113/69 94 Room Air 07/17/22 06:13 90 16 97 Room Air Diagnostic Findings Laboratory Results WBC 3.43 K/ul (4.8-10.8) L 07/17/22 05:36 RBC 2.52 M/uL (3.93-5.22) L 07/17/22 05:36 Hgb 7.4 g/dl (12.0-16.0) L 07/17/22 05:36 Hct 22.2 % (34.1-44.9) L 07/17/22 05:36 MCV 88.1 fL (80.0-100.0) 07/17/22 05:36 MCH 29.4 pg (25.0-34.0) 07/17/22 05:36 MCHC 33.3 g/dL (32.0-36.0) 07/17/22 05:36 RDW Std Deviation 55.1 fL (36.4-46.3) H 07/17/22 05:36 RDW Coeff of Yasmine 17.4 % (11.5-14.5) H 07/17/22 05:36 Plt Count 100 K/uL (130-400) L 07/17/22 05:36 MPV 11.0 fL (9.4-12.3) 07/17/22 05:36 Immature Gran % (Auto) 0.6 % 07/17/22 05:36 Neut % (Auto) 69.3 % 07/17/22 05:36 Lymph % (Auto) 17.5 % 07/17/22 05:36 Graham % (Auto) 10.5 % 07/17/22 05:36 Eos % (Auto) 1.5 % 07/17/22 05:36 Baso % (Auto) 0.6 % 07/17/22 05:36 Neut # (Auto) 2.38 K/uL (1.4-6.5) 07/17/22 05:36 Lymph # (Auto) 0.60 K/uL (1.2-3.4) L 07/17/22 05:36 Graham # (Auto) 0.36 K/uL (0.24-0.82) 07/17/22 05:36 Eos # (Auto) 0.05 K/uL (0-0.50) 07/17/22 05:36 Baso # (Auto) 0.02 K/uL (0-0.2) 07/17/22 05:36 Immature Gran # (Auto) 0.02 K/uL (0.00-0.02) 07/17/22 05:36 RBC Morphology Unremarkable 07/15/22 06:34 Polychromasia 1+ 07/07/22 06:34 Poikilocytosis Present 07/17/22 05:36 Target Cells 1+ 07/09/22 06:44 PT 13.7 Seconds (9.0-12.0) H 07/17/22 05:36 INR 1.3 (0.9-1.1) H 07/17/22 05:36 APTT 32.0 Seconds (21.0-31.0) H 06/30/22 12:26 PTT Ratio 1.2 06/30/22 12:26 Sodium 137 mmol/L (136-145) 07/17/22 05:36 Potassium 3.9 mmol/L (3.5-5.1) 07/17/22 05:36 Chloride 106 mmol/L (98-107) 07/17/22 05:36 Carbon Dioxide 23 mmol/L (21-32) 07/17/22 05:36 Anion Gap 8 (3-11) 07/17/22 05:36 BUN 11 mg/dl (6-23) 07/17/22 05:36 Creatinine 1.23 mg/dl (0.6-1.2) H 07/17/22 05:36 Est Cr Clr Drug Dosing 54.8 ml/min 07/17/22 05:36 Est GFR ( Amer) 65.8 ml/min 07/17/22 05:36 Est GFR (Non-Af Amer) 56.8 ml/min 07/17/22 05:36 BUN/Creatinine Ratio 8.9 (10-20) L 07/17/22 05:36 Glucose 91 mg/dl (70-99(Fasting)) 07/17/22 05:36 POC Glucose 71 mg/dl (70-99) 07/02/22 07:38 Calcium 8.8 mg/dl (8.5-10.1) 07/17/22 05:36 Phosphorus 3.7 mg/dl (2.5-4.9) 07/17/22 05:36 Magnesium 1.6 mg/dl (1.7-2.4) L 07/17/22 05:36 Total Bilirubin 1.9 mg/dl (0.2-1.0) H 07/17/22 05:36 Direct Bilirubin 0.7 mg/dl (0-0.2) H 07/14/22 10:54 AST 29 U/L (13-39) 07/17/22 05:36 ALT 18 U/L (7-52) 07/17/22 05:36 Alkaline Phosphatase 97 U/L (34-104) 07/17/22 05:36 Ammonia 52.0 umol/L (18-72) 07/02/22 05:48 Troponin I High Sens 5.1 pg/ml (0-14) D 06/30/22 12:26 Total Protein 5.7 gm/dl (6.0-8.3) L 07/17/22 05:36 Albumin 3.4 gm/dl (3.4-5.0) 07/17/22 05:36 Globulin 2.3 gm/dl (2.5-4.0) L 07/17/22 05:36 Albumin/Globulin Ratio 1.5 (0.9-2) 07/17/22 05:36 Lipase 16 U/L (11-82) 06/30/22 12:26 Urine Color Yellow 06/30/22 17:00 Urine Appearance Clear (Clear) 06/30/22 17:00 Urine pH 7.0 (4.5-7.5) 06/30/22 17:00 Ur Specific Brogan 1.010 (1.000-1.030) 06/30/22 17:00 Urine Protein Negative (Negative) 06/30/22 17:00 Urine Glucose (UA) Negative (Negative) 06/30/22 17:00 Urine Ketones Negative (Negative) 06/30/22 17:00 Urine Blood Negative (Negative) 06/30/22 17:00 Urine Nitrite Negative (Negative) 06/30/22 17:00 Urine Bilirubin Negative (Negative) 06/30/22 17:00 Urine Urobilinogen Negative (Negative) 06/30/22 17:00 Ur Leukocyte Esterase Negative (Negative) 06/30/22 17:00 POC Ur Test Cancelled 07/01/22 18:52 Urine Opiates Screen Pos (Neg) H 06/30/22 17:00 U Codeine Confrm GC/MS NEGATIVE ng/mL (<50) 06/30/22 17:00 Ur Morphine (GC/MS) 465 ng/mL (<50) H 06/30/22 17:00 Ur Hydrocodone (GC/MS) NEGATIVE ng/mL (<50) 06/30/22 17:00 Ur Norhydrocodone NEGATIVE ng/mL (<50) 06/30/22 17:00 Ur Noroxycodone NEGATIVE ng/mL (<50) 06/30/22 17:00 Urine Oxycodone (GC/MS) NEGATIVE ng/mL (<50) 06/30/22 17:00 U Oxymorphone GC/MS NEGATIVE ng/mL (<50) 06/30/22 17:00 Ur Methadone, Qual Neg (Neg) 06/30/22 17:00 Ur Hydromorphone (GC/MS) NEGATIVE ng/mL (<50) 06/30/22 17:00 Urine Barbiturates Neg (Neg) 06/30/22 17:00 Ur Phencyclidine (PCP) Neg (Neg) 06/30/22 17:00 U Amphetamin/Meth Scrn Neg (Neg) 06/30/22 17:00 Urine MDEA negative 06/30/22 17:00 MDMA (Ecstasy) Screen Pos (Neg) H 06/30/22 17:00 MDMA negative 06/30/22 17:00 Urine MDMA negative 06/30/22 17:00 U Benzodiazepines Scrn Neg (Neg) 06/30/22 17:00 Ur Cocaine Metabolite Neg (Neg) 06/30/22 17:00 U Marijuana (THC) Screen Neg (Neg) 06/30/22 17:00 Drug Screen Comment SEE NOTE 06/30/22 17:00 Ethyl Alcohol mg/dL 252.9 mg/dl (<10.0) H 06/30/22 12:26 SARS-CoV-2, RNA, NAAT NEGATIVE (NEGATIVE) 06/30/22 15:30 Blood Type O Positive 07/14/22 22:43 Antibody Screen NEGATIVE 07/14/22 22:[address] 06/30/22 13:14 CT chest diagnostic wo con, CT thoracic spine wo con, CT lumbar spine wo con, CT abd pelvis wo con CLINICAL HISTORY: 37 years-old Female with trauma. Acute chest and abdominal trauma status post fall TECHNIQUE: Multiaxial CT images of the chest, abdomen and pelvis, CT and thoracic spine were performed without contrast. A dose lowering technique was utilized adhering to the principles of ALARA. COMPARISON: Chest CT 07/13/21, CT abdomen 04/15/22. FINDINGS: CT CHEST: The lungs are clear. The mediastinal vascular structures are within normal limits. Right IJ Nqubku-f-Fvbq catheter distal tip terminates within the mid SVC. No mediastinal or hilar lymphadenopathy. No pleural effusion or pneumothorax. Mild sigmoidal scoliosis of the thoracic spine. No acute fracture identified. CT ABDOMEN/PELVIS: No pneumatosis or pneumoperitoneum. Spleen is enlarged measuring 13.4 cm in length. Unremarkable pancreas with a few punctate calcifications noted within the uncinate process. The adrenal glands are within normal limits. Punctate calcification within the jessica hepatis may represent an adherent gallstone. Mild marginal nodularity of the liver suggestive of cirrhosis. No hepatic mass identified. Unremarkable kidneys, urinary bladder, uterus and adnexa. Aorta and IVC are unremarkable. Abdominal varicosities. There is no lymphadenopathy identified. No bowel obstruction or bowel wall thickening. Moderate fecal retention. Noninflamed appendix. No ascites or mesenteric inflammation. Tiny fat filled umbilical hernia. No acute fracture identified. CT THORACIC SPINE: Upper thoracic levoscoliosis. Mild multilevel spondylitic spurring and facet arthrosis. The intervertebral disc spaces are generally well maintained. Equivocal acute nondisplaced fracture involves the posterior medial aspect of the right ninth and 10th ribs. (Please see image 186 of series 10 and image 21 of the sagittal series. No acute vertebral body fracture identified. CT LUMBAR SPINE: Mild lumbar levoscoliosis. Mild to moderate multilevel facet arthrosis. No acute fracture, subluxation or endplate erosion. The imaged sacrum and iliac bones appear intact. Healed chronic fracture of the right inferior L5 articular facet. IMPRESSION: 1. Suggestion of subtle acute nondisplaced fractures involving the posterior medial aspects of the right ninth and 10th ribs. Correlate with point tenderness. 2. No pneumothorax. 3. No acute posttraumatic intrathoracic, intra-abdominal or intrapelvic abnormality 4. Cirrhosis with splenomegaly and abdominal varicosities compatible with portal venous hypertension. ACT 112: Negative or not required by law. Electronically signed by: Bud Madera M.D. 06/30/2022 3:[address] 06/30/22 13:22 CT chest diagnostic wo con, CT thoracic spine wo con, CT lumbar spine wo con, CT abd pelvis wo con CLINICAL HISTORY: 37 years-old Female with trauma. Acute chest and abdominal trauma status post fall TECHNIQUE: Multiaxial CT images of the chest, abdomen and pelvis, CT and thoracic spine were performed without contrast. A dose lowering technique was utilized adhering to the principles of ALARA. COMPARISON: Chest CT 07/13/21, CT abdomen 04/15/22. FINDINGS: CT CHEST: The lungs are clear. The mediastinal vascular structures are within normal limits. Right IJ Oxufoa-k-Jxpv catheter distal tip terminates within the mid SVC. No mediastinal or hilar lymphadenopathy. No pleural effusion or pneumothorax. Mild sigmoidal scoliosis of the thoracic spine. No acute fracture identified. CT ABDOMEN/PELVIS: No pneumatosis or pneumoperitoneum. Spleen is enlarged measuring 13.4 cm in length. Unremarkable pancreas with a few punctate calcifications noted within the uncinate process. The adrenal glands are within normal limits. Punctate calc ification within the jessica hepatis may represent an adherent gallstone. Mild marginal nodularity of the liver suggestive of cirrhosis. No hepatic mass identified. Unremarkable kidneys, urinary bladder, uterus and adnexa. Aorta and IVC are unremarkable. Abdominal varicosities. There is no lymphadenopathy identified. No bowel obstruction or bowel wall thickening. Moderate fecal retention. Noninfla med appendix. No ascites or mesenteric inflammation. Tiny fat filled umbilical hernia. No acute fracture identified. CT THORACIC SPINE: Upper thoracic levoscoliosis. Mild multilevel spondylitic spurring and facet arthrosis. The intervertebral disc spaces are generally well maintained. Equivocal acute nondisplaced fracture involves the posterior medial aspect of the right ninth and 10th ribs. (Please see image 186 of series 10 and image 21 of the sagittal series. No acute vertebral body fracture identified. CT LUMBAR SPINE: Mild lumbar levoscoliosis. Mild to moderate multilevel facet arthrosis. No acute fracture, subluxation or endplate erosion. The imaged sacrum and iliac bones appear intact. Healed chronic fracture of the right inferior L5 articular facet. IMPRESSION: 1. Suggestion of subtle acute nondisplaced fractures involving the posterior medial aspects of the right ninth and 10th ribs. Correlate with point tenderness. 2. No pneumothorax. 3. No acute posttraumatic intrathoracic, intra-abdominal or intrapelvic abnormality 4. Cirrhosis with splenomegaly and abdominal varicosities compatible with portal venous hypertension. ACT 112: Negative or not required by law. Electronically signed by: Bud Madera M.D. 06/30/2022 3:[address] 06/30/22 13:22 CT chest diagnostic wo con, CT thoracic spine wo con, CT lumbar spine wo con, CT abd pelvis wo con CLINICAL HISTORY: 37 years-old Female with trauma. Acute chest and abdominal trauma status post fall TECHNIQUE: Multiaxial CT images of the chest, abdomen and pelvis, CT and thoracic spine were performed without contrast. A dose lowering technique was utilized adhering to the principles of ALARA. COMPARISON: Chest CT 07/13/21, CT abdomen 04/15/22. FINDINGS: CT CHEST: The lungs are clear. The mediastinal vascular structures are within normal limits. Right IJ Wppcdx-y-Jepx catheter distal tip terminates within the mid SVC. No mediastinal or hilar lymphadenopathy. No pleural effusion or pneumothorax. Mild sigmoidal scoliosis of the thoracic spine. No acute fracture identified. CT ABDOMEN/PELVIS: No pneumatosis or pneumoperitoneum. Spleen is enlarged measuring 13.4 cm in length. Unremarkable pancreas with a few punctate calcifications noted within the uncinate process. The adrenal glands are within normal limits. Punctate calcification within the jessica hepatis may represent an adherent gallstone. Mild marginal nodularity of the liver suggestive of cirrhosis. No hepatic mass identified. Unremarkable kidneys, urinary bladder, uterus and adnexa. Aorta and IVC are unremarkable. Abdominal varicosities. There is no lymphadenopathy identified. No bowel obstruction or bowel wall thickening. Moderate fecal retention. Noninflamed appendix. No ascites or mesenteric inflammation. Tiny fat filled umbilical hernia. No acute fracture identified. CT THORACIC SPINE: Upper thoracic levoscoliosis. Mild multilevel spondylitic spurring and facet arthrosis. The intervertebral disc spaces are generally well maintained. Equivocal acute nondisplaced fracture involves the posterior medial aspect of the right ninth and 10th ribs. (Please see image 186 of series 10 and image 21 of the sagittal series. No acute vertebral body fracture identified. CT LUMBAR SPINE: Mild lumbar levoscoliosis. Mild to moderate multilevel facet arthrosis. No acute fracture, subluxation or endplate erosion. The imaged sacrum and iliac bones appear intact. Healed chronic fracture of the right inferior L5 articular facet. IMPRESSION: 1. Suggestion of subtle acute nondisplaced fractures involving the posterior medial aspects of the right ninth and 10th ribs. Correlate with point tenderness. 2. No pneumothorax. 3. No acute posttraumatic intrathoracic, intra-abdominal or intrapelvic abnormality 4. Cirrhosis with splenomegaly and abdominal varicosities compatible with portal venous hypertension. ACT 112: Negative or not required by law. Electronically signed by: Bud Madera M.D. 06/30/2022 3:[address] 06/30/22 13:[address] DOSE: 959.53 mGy.cm HISTORY: fall TECHNIQUE: Multiaxial CT images of the cervical spine were performed and reformatted in the sagittal and coronal plane without the use of contrast. A dose lowering technique was utilized adhering to the principles of ALARA. COMPARISON: Cervical spine CT 07/22/2021. FINDINGS: No fractures. No subluxation. Prevertebral soft tissues and the C1-C2 interval are intact. No pneumothorax. There is a partially visualized right jugular central venous catheter. IMPRESSION: No fractures within the cervical spine. ACT 112: Negative or not required by law. Electronically signed by: Weston Cisneros M.D. 06/30/2022 2:33 PM Abdomen/Pelvis CT 07/03/22 14:[address] WITH IV CONTRAST CT DOSE: 345.53 mGy.cm HISTORY: Acute right lower quadrant abdominal pain R/O Appendicitis TECHNIQUE: Multiaxial CT images of the abdomen and pelvis were performed following the IV administration of 93 cc of Optiray, A dose lowering technique was utilized adhering to the principles of ALARA. COMPARISON STUDY: CT abdomen and pelvis 06/30/2022 FINDINGS: Trace pleural effusions with dependent bibasilar atelectasis. No pneumatosis or pneumoperitoneum. Spleen is enlarged measuring 13.4 cm in length. Unremarkable pancreas with a few punctate calcifications noted within the uncinate process. The adrenal glands are within normal limits. Contracted gallbladder. Mild marginal nodularity of the liver suggestive of cirrhosis. . Liver is diffusely heterogeneous. No hepatic mass identified. Unremarkable kidneys, uterus and adnexa. Mild nonspecific urinary bladder wall thickening. Aorta and IVC are unremarkable. Abdominal varicosities. There is no lymphadenopathy identified. Distended debris-filled stomach suggestive of recent meal. Small volume of abdominal pelvic ascites with diffuse mesenteric edema is new from prior. Moderate to extensive colonic fecal retention as progressed. Noninflamed appendix. Mild colonic diverticulosis. Mild wall thickening of the cecum and ascending colon is new from the prior study. Tiny fat filled umbilical hernia. The previously questioned subtle fractures of the posterior right ninth and 10th ribs are not appreciated. IMPRESSION: 1. Cirrhosis with splenomegaly and abdominal varicosities compatible with portal venous hypertension redemonstrated. There is new small volume of abdominal pelvic ascites with mesenteric edema. 2. Noninflamed appendix. 3. Wall thickening of the cecum and proximal ascending colon is new from the prior exam and may be secondary to portal colopathy. An infectious or inflammatory colitis could appear similarly. 4. Moderate to extensive fecal retention. 5. Trace pleural effusions. ACT 112: Negative or not required by law. The above report was generated using voice recognition software. It may contain grammatical, syntax or spelling errors. Electronically signed by: Bud Madera M.D. 07/03/2022 4:[address] 07/09/22 09:[address] DOSE: 638.56 mGycm HISTORY: s/p fall, head trauma TECHNIQUE: Multiaxial CT images of the head were performed without the use of intravenous contrast. Automated exposure control was utilized for this study. A dose lowering technique was utilized adhering to the principles of ALARA. Comparison: Head CT 06/30/2022. Findings: The paranasal sinuses and mastoid air cells are clear. The calvarium and skull base are intact. The ventricles and sulci are within normal limits. There is no mass, hematoma, midline shift, or acute infarct. Impression: No acute intracranial abnormality. ACT 112: Negative or not required by law. Electronically signed by: Weston Cisneros M.D. 07/09/2022 10:09 AM Ribs w/Chest X-Ray 07/11/22 16:15 PA CHEST WITH RIGHT-SIDED RIB SERIES CLINICAL HISTORY: Follow-up rib fractures. FINDINGS: A PA chest radiograph with 4 additional views from a right sided rib series is compared to radiographs and chest CT dated 06/30/2022. A right internal jugular central medicine infusion port is unchanged in position. The cardiomediastinal silhouette is unremarkable. The lungs and pleural spaces are clear noting bibasilar atelectasis. No pneumothorax is seen. There is no radiographic evidence of acute/displaced right-sided rib fracture on the rib series. There are chronic/healed left-sided rib fractures. There is thoracolumbar scoliosis. IMPRESSION: 1 No active disease in the chest. 2. There is no radiographic evidence of acute/displaced right-sided rib fracture in the rib series. Subtle fractures questioned by CT are not apparent on x-ray. ACT 112: Negative or not required by law. Electronically signed by: Brodie Gillis M.D. 07/11/2022 4:49 PM Abdomen Ultrasound 07/14/22 10:54 ULTRASOUND ASCITES CHECK CLINICAL HISTORY: Ascites. COMPARISON STUDY: Ultrasound ascites check dated 07/07/2022. FINDINGS: Real-time grayscale sonography of all 4 quadrants of the abdomen is performed to assess for abdominal ascites. No abdominal ascites is identified. The liver is cirrhotic in morphology and appears steatotic. The spleen is enlarged measuring 17.7 cm in length. IMPRESSION: No abdominal ascites is identified. Electronically signed by: Brodie Gillis M.D. 07/14/2022 12:02 PM Medications Administered Current Inpatient Medications Acetaminophen (Acetaminophen 500 Mg Tab) 500 mg PO Q6H PRN PRN Reason: pain/fever Stop: 07/31/22 19:39 Last Admin: 07/16/22 06:27 Dose: 500 mg Albuterol (Albuterol Hfa 8 Gm Inhaler) 2 puffs INH BID PRN PRN Reason: Shortness Of Breath Stop: 07/30/22 17:53 Amphetamine/Dextroamphetamine (Amphetamine Asp/Sulf/Dextramph 5 Mg Tab) 5 mg PO [id number] [facility] Stop: 07/27/22 13:59 Last Admin: 07/17/22 06:22 Dose: 5 mg Ascorbic Acid (Ascorbic Acid 500 Mg Tab) 500 mg PO QAM JUAN Stop: 07/31/22 08:59 Last Admin: 07/17/22 08:27 Dose: 500 mg Baclofen (Baclofen 10 Mg Tab) 5 mg PO BID [facility] Stop: 08/16/22 20:59 Bupropion HCl (Bupropion Sr 150 Mg Tabcr) 150 mg PO DAILY [facility] Stop: 08/13/22 14:29 Last Admin: 07/17/22 08:28 Dose: 150 mg Diclofenac Sodium (Diclofenac Sod 1% Gel 100 Gm Tube) 4 gm EXT TID [facility]; Protocol Stop: 07/31/22 20:59 Last Admin: 07/17/22 08:28 Dose: 4 gm Fluticasone Propionate (Fluticasone Propionate Na Spr 16 Gm Btl) 2 sprays LINETTE BID [facility] Stop: 07/30/22 20:59 Last Admin: 07/17/22 08:29 Dose: 2 sprays Fluticasone/Vilanterol (Fluticasone/Vilanterol 200/25mcg 14 Puffs/Inhaler) 1 puffs INH DAILY JUAN Stop: 07/31/22 08:59 Last Admin: 07/17/22 08:29 Dose: 1 puffs Furosemide (Furosemide 40 Mg Tab) 40 mg PO QAM [facility] Stop: 08/17/22 08:59 Gabapentin (Gabapentin 300 Mg Cap) 300 mg PO DAILY [facility] Stop: 07/17/22 20:59 Last Admin: 07/17/22 08:30 Dose: 300 mg Heparin Sodium (Porcine) (Heparin 100 Unit/Ml 5ml Flush) 5 ml FLUSH PRN PRN PRN Reason: Flush Stop: 08/01/22 00:52 Last Admin: 07/16/22 11:21 Dose: 5 ml Hydroxyzine HCl (Hydroxyzine Hcl 25 Mg Tab) 25 mg PO TID PRN PRN Reason: Anxiety Stop: 07/30/22 17:53 Last Admin: 07/17/22 04:43 Dose: 25 mg Ipratropium Mart (Ipratropium Hfa Inhaler (Combivent Respimat P&T Subs)) 1 puffs INH BIDR [facility] Stop: 07/30/22 18:59 Last Admin: 07/17/22 06:12 Dose: 1 puffs Ketorolac Tromethamine (Ketorolac Tromethamine 15 Mg/Ml Vial) 15 mg IV Q6H PRN PRN Reason: Moderate Pain (4, 5, 6) Stop: 07/22/22 10:01 Last Admin: 07/17/22 10:50 Dose: 15 mg Lactulose (Lactulose Syrup 20 Gm/30 Ml Udc) 20 gm PO QAM [facility] Stop: 07/31/22 08:59 Last Admin: 07/17/22 08:30 Dose: 20 gm Lidocaine (Lidocaine 5% 1 Patch) 1 patch TD QAM [facility] Stop: 07/30/22 16:29 Last Admin: 07/17/22 08:30 Dose: 1 patch Loratadine (Loratadine 10 Mg Tab) 10 mg PO QAM [facility] Stop: 07/31/22 08:59 Last Admin: 07/17/22 08:31 Dose: 10 mg Magnesium Oxide (Magnesium Oxide 400 Mg Tab) 400 mg PO BID [facility] Stop: 07/30/22 20:59 Last Admin: 07/17/22 08:31 Dose: 400 mg Melatonin (Melatonin 3 Mg Tab) 3 mg PO HS PRN PRN Reason: Sleep Stop: 07/31/22 23:04 Last Admin: 07/16/22 20:16 Dose: 3 mg Miscellaneous (Remove Lidoderm Patch) 1 each N/A DAILY@2100 [facility] Stop: 07/30/22 20:59 Last Admin: 07/16/22 20:11 Dose: 1 each Miscellaneous (Remove Nicoderm Patch) 1 each N/A QAM [facility] Stop: 07/31/22 08:59 Last Admin: 07/17/22 08:33 Dose: 1 each Montelukast Sodium (Montelukast Sodium 10 Mg Tablet) 10 mg PO HS [facility] Stop: 07/30/22 20:59 Last Admin: 07/16/22 20:13 Dose: 10 mg Multivitamins (Multivitamin Tab) 1 tab PO QAM [facility] Stop: 07/31/22 08:59 Last Admin: 07/17/22 08:31 Dose: 1 tab Nicotine (Nicotine 14 Mg/24 Hr Patch) 14 mg TD QAM [facility] Stop: 07/31/22 08:59 Last Admin: 07/17/22 08:32 Dose: 14 mg Ondansetron HCl (Ondansetron Inj 2 Mg/Ml 2 Ml Vial) 4 mg IV Q6H PRN PRN Reason: Nausea Stop: 07/30/22 19:51 Last Admin: 07/16/22 08:08 Dose: 4 mg Oxycodone HCl (Oxycodone Hcl Ir 5 Mg Tab (Immediate Release)) 5 - 10 mg PO Q8 PRN PRN Reason: Severe Pain (7, 8, 9, 10) Stop: 07/28/22 22:06 Pantoprazole Sodium (Pantoprazole 40 Mg Tab) 40 mg PO BID [facility] Stop: 07/31/22 20:59 Last Admin: 07/17/22 08:32 Dose: 40 mg Phenylephrine HCl (Anusol Supp 1 Ea) 1 supp [place] Q8 PRN PRN Reason: Hemorrhoids Stop: 08/15/22 15:40 Polyethylene Glycol (Polyethylene (Miralax) 17 Gm Pack) 17 gm PO DAILY PRN PRN Reason: Constipation Stop: 07/30/22 19:51 Potassium Phosphate (Pot Phosphate Monobasic W/ Sod Tab) 2 tab PO QID [facility] Stop: 07/30/22 20:59 Last Admin: 07/17/22 08:32 Dose: 2 tab Sertraline HCl (Sertraline Hcl 50 Mg Tablet) 50 mg PO [facility] Stop: 08/13/22 14:29 Last Admin: 07/17/22 08:33 Dose: 50 mg Spironolactone (Spironolactone 100 Mg Tab) [facility] [place] Stop: 08/06/22 08:59 Last Admin: 07/17/22 08:33 Dose: 200 mg Thiamine HCl (Thiamine Hcl 100 Mg Tab) 100 [facility] [place] Stop: 07/31/22 08:59 Last Admin: 07/17/22 08:33 Dose: 100 mg Umeclidinium Mart (Umeclidinium Mart 62.5mcg/Blister 7 Puffs/Inhaler) 1 puffs INH QAM [facility] Stop: 07/31/22 08:59 Last Admin: 07/17/22 08:29 Dose: 1 puffs Vitamin D (Cholecalciferol 1,000 Units 25 Mcg Tab) 2,000 units PO QAM [facility] Stop: 07/31/22 08:59 Last Admin: 07/17/22 08:28 Dose: 2,000 units (1) Cirrhosis Ascites presence: with ascites Hepatic cirrhosis type: alcoholic cirrhosis Qualified Code(s): K70.31 - Alcoholic cirrhosis of liver with ascites
[2022-07-17] MEDS ORDERED: DICLOFENAC SOD 1% GEL 100 GM TUBE EXT SCH (14:00)
[2022-07-17] MEDS: ALBUTEROL HFA 8 GM INHALER INH PRN (20:09)
[2022-07-17] MEDS: MONTELUKAST SODIUM 10 MG TABLET PO SCH (21:41)
[2022-07-17] MEDS: MELATONIN 3 MG TAB PO PRN (21:42)
[2022-07-18] MEDS: KETOROLAC TROMETHAMINE 15 MG/ML VIAL IV PRN ×4 (01:37→21:04)
[2022-07-18] MEDS: HEPARIN 100 UNIT/ML 5ML FLUSH FLUSH PRN ×4 (01:38→21:10)
[2022-07-18] MEDS: AMPHETAMINE ASP/SULF/DEXTRAMPH 5 MG TAB PO SCH ×2 (06:26→14:12)
[2022-07-18] MEDS: oxyCODONE HCL IR 5 MG TAB (IMMEDIATE RELEASE) PO PRN ×2 (06:29→18:16)
[2022-07-18] MEDS: hydrOXYzine HCl 25 MG TAB PO PRN ×2 (06:29→21:04)
[2022-07-18] MEDS: Ipratropium HFA Inhaler (Combivent Respimat P&T Subs) INH SCH ×2 (07:05→19:28)
[2022-07-18] MEDS: ALBUTEROL HFA 8 GM INHALER INH PRN ×2 (07:05→19:29)
[2022-07-18] MEDS: BACLOFEN 10 MG TAB PO SCH ×2 (08:29→20:02)
[2022-07-18] MEDS: LACTULOSE SYRUP 20 GM/30 ML UDC PO SCH (08:30)
[2022-07-18] MEDS: CHOLECALCIFEROL 1,000 UNITS 25 MCG TAB PO SCH (08:31)
[2022-07-18] MEDS: PANTOprazole 40 MG TAB PO SCH ×2 (08:31→20:03)
[2022-07-18] MEDS: buPROPion SR 150 MG TABCR PO SCH (08:31)
[2022-07-18] MEDS: SPIRONOLACTONE 100 MG TAB PO SCH (08:31)
[2022-07-18] MEDS: ASCORBIC ACID 500 MG TAB PO SCH (08:32)
[2022-07-18] MEDS: NICOTINE 14 MG/24 HR PATCH TD SCH (08:32)
[2022-07-18] MEDS: THIAMINE HCL 100 MG TAB PO SCH (08:32)
[2022-07-18] MEDS: LORATADINE 10 MG TAB PO SCH (08:32)
[2022-07-18] MEDS: MULTIVITAMIN TAB PO SCH (08:32)
[2022-07-18] MEDS: MAGNESIUM OXIDE 400 MG TAB PO SCH ×2 (08:33→20:01)
[2022-07-18] MEDS: SERTRALINE HCL 50 MG TABLET PO SCH (08:34)
[2022-07-18] MEDS: LIDOCAINE 5% 1 PATCH TD SCH (08:35)
[2022-07-18] MEDS: UMECLIDINIUM BROMIDE 62.5MCG/BLISTER 7 PUFFS/INHALER INH SCH (08:35)
[2022-07-18] MEDS: FLUTICASONE PROPIONATE NA SPR 16 GM BTL NAE SCH ×2 (08:35→20:03)
[2022-07-18] MEDS: FLUTICASONE/VILANTEROL 200/25MCG 14 PUFFS/INHALER INH SCH (08:36)
[2022-07-18] MEDS: DICLOFENAC SOD 1% GEL 100 GM TUBE EXT SCH ×3 (08:36→20:01)
[2022-07-18] MEDS ORDERED: FUROSEMIDE 40 MG TAB PO SCH (09:00)
[2022-07-18] MEDS: POT PHOSPHATE MONOBASIC W/ SOD TAB PO SCH ×4 (10:34→20:02)
[2022-07-18] MEDS ORDERED: bisacodyL 5 MG TABEC PO PRN (12:04)
[2022-07-18] MEDS ORDERED: bisacodyL 5 MG TABEC PO ONE (12:04)
--- NOTE | 2022-07-18 12:49 | Hospitalist Progress Note ---
Date of Service July 18, 2022 Assessment & Plan (1) Fall: Plan: - s/p fall in shower in setting of possible ETOH intoxication - Head CT, cervical spine, thoracic, lumbar, abd/pelvis, chest CTs performed - evidence of acute nondisplaced fractures involving the posterior medial aspects of the right ninth and 10th ribs. Otherwise no traumatic injuries noted - Has not used IV Dilaudid for the past 3 days now - gabapentin tapered off - Continue baclofen as this is helping as per patient - will slowly tape - added Toradol and Voltaren to help with weaning opioids - tolerating well - oxycodone down to q12 today - will continue to wean prior to discharge (2) Closed rib fracture: Plan: - noted - continue IS (3) Alcohol use disorder: Plan: - patient recently relapsed - stressed importance of abstinence - would like to follow up outpatient rehab programs (4) Generalized anxiety disorder: Plan: - noted, continue home meds (5) Cirrhosis: Plan: - Patient with history of cirrhosis, following with [facility] - Left 2-month inpatient alcohol treatment facility 4 days [facility] and resumed drinking the day before arrival - 07/14/2022 - Abdominal ultrasound: No ascites - restarted lasix and aldactone now that VAN resolved - Hematochezia reported overnight, 07/15/2022 - s/p for EGD, colonoscopy 07/16/2022 with possible source of bleeding found to have hemorrhoid - hgb stable - Bowel regimen for hemorrhoid (6) Depression: Plan: - Patient reports that she has been taking Zoloft and Wellbutrin prior to admission - Zoloft and Wellbutrin restarted 07/14 - monitor qtc on ECG (7) Asthma: Plan: - continue inhalers Plan DVT Ppx: SCDs - Encouraged to ambulate frequently, patient verbalized understanding Code status: FULL PCP: Ritu Dispo: telemetry Shola Friend MD Hospital Medicine Admission and Anticipated Discharge Date Admission Date: June 30, 2022 Subjective Patient with ETOH cirrhosis with ascites, alcohol use disorder, depression, anxiety who presented after fall in shower with possible ETOH intoxication at that time. Being managed for pain control, weaned off opioids, started on gabapentin and baclofen per pain management. Course complicated by VAN, improved with IVF. Had episode of hematochezia, now s/p EGD and colonoscopy with mild portal hypertensive gastropathy and no source of bleeding on EGD, and polyp and hemorrhoid on colonoscopy. Tolerating regular diet. Patient complains of pain on right flank/shoulder area but having some impr ovement. Denies n/v/. Denies chest pain, shortness of breath, diarrhea. Complaining of some dysuria symptoms today. Review of Systems Review of Systems: all noted and negative except for above Physical Exam Physical Exam: General- oriented x 3, not in distress, speaks in sentences with no effort or accessory muscle use Eyes- anicteric Neck- no JVD Lungs- clear breath sounds bilaterally, no crackles Heart- normal rate, regular rhythm; no murmurs Abdomen- normal bowel sounds, not distended, soft, no tenderness Extremities- no pretibial edema, no calf tenderness Neuro- alert, oriented x 3; no gross focal neurologic deficits Skin- warm & dry Results & Data Results & Data ([facility]) Vital Signs (Past 12 Hours) Vital Signs Temp Pulse Resp BP BP Pulse Ox O2 Del Method 07/18/22 08:30 109/69 07/18/22 07:24 36.8 C 80 14 94/56 L 95 Room Air 07/18/22 07:05 83 17 98 Room Air Diagnostic Findings Laboratory Results WBC 3.43 K/ul (4.8-10.8) L 07/17/22 05:36 RBC 2.52 M/uL (3.93-5.22) L 07/17/22 05:36 Hgb 7.4 g/dl (12.0-16.0) L 07/17/22 05:36 Hct 22.2 % (34.1-44.9) L 07/17/22 05:36 MCV 88.1 fL (80.0-100.0) 07/17/22 05:36 MCH 29.4 pg (25.0-34.0) 07/17/22 05:36 MCHC 33.3 g/dL (32.0-36.0) 07/17/22 05:36 RDW Std Deviation 55.1 fL (36.4-46.3) H 07/17/22 05:36 RDW Coeff of Yasmine 17.4 % (11.5-14.5) H 07/17/22 05:36 Plt Count 100 K/uL (130-400) L 07/17/22 05:36 MPV 11.0 fL (9.4-12.3) 07/17/22 05:36 Immature Gran % (Auto) 0.6 % 07/17/22 05:36 Neut % (Auto) 69.3 % 07/17/22 05:36 Lymph % (Auto) 17.5 % 07/17/22 05:36 [place] % (Auto) 10.5 % 07/17/22 05:36 Eos % (Auto) 1.5 % 07/17/22 05:36 Baso % (Auto) 0.6 % 07/17/22 05:36 Neut # (Auto) 2.38 K/uL (1.4-6.5) 07/17/22 05:36 Lymph # (Auto) 0.60 K/uL (1.2-3.4) L 07/17/22 05:36 [place] # (Auto) 0.36 K/uL (0.24-0.82) 07/17/22 05:36 Eos # (Auto) 0.05 K/uL (0-0.50) 07/17/22 05:36 Baso # (Auto) 0.02 K/uL (0-0.2) 07/17/22 05:36 Immature Gran # (Auto) 0.02 K/uL (0.00-0.02) 07/17/22 05:36 RBC Morphology Unremarkable 07/15/22 06:34 Polychromasia 1+ 07/07/22 06:34 Poikilocytosis Present 07/17/22 05:36 Target Cells 1+ 07/09/22 06:44 PT 13.7 Seconds (9.0-12.0) H 07/17/22 05:36 INR 1.3 (0.9-1.1) H 07/17/22 05:36 APTT 32.0 Seconds (21.0-31.0) H 06/30/22 12:26 PTT Ratio 1.2 06/30/22 12:26 Sodium 137 mmol/L (136-145) 07/17/22 05:36 Potassium 3.9 mmol/L (3.5-5.1) 07/17/22 05:36 Chloride 106 mmol/L (98-107) 07/17/22 05:36 Carbon Dioxide 23 mmol/L (21-32) 07/17/22 05:36 Anion Gap 8 (3-11) 07/17/22 05:36 BUN 11 mg/dl (6-23) 07/17/22 05:36 Creatinine 1.23 mg/dl (0.6-1.2) H 07/17/22 05:36 Est Cr Clr Drug Dosing 54.8 ml/min 07/17/22 05:36 Est GFR ( Amer) 65.8 ml/min 07/17/22 05:36 Est GFR (Non-Af Amer) 56.8 ml/min 07/17/22 05:36 BUN/Creatinine Ratio 8.9 (10-20) L 07/17/22 05:36 Glucose 91 mg/dl (70-99(Fasting)) 07/17/22 05:36 POC Glucose 71 mg/dl (70-99) 07/02/22 07:38 Calcium 8.8 mg/dl (8.5-10.1) 07/17/22 05:36 Phosphorus 3.7 mg/dl (2.5-4.9) 07/17/22 05:36 Magnesium 1.6 mg/dl (1.7-2.4) L 07/17/22 05:36 Total Bilirubin 1.9 mg/dl (0.2-1.0) H 07/17/22 05:36 Direct Bilirubin 0.7 mg/dl (0-0.2) H 07/14/22 10:54 AST 29 U/L (13-39) 07/17/22 05:36 ALT 18 U/L (7-52) 07/17/22 05:36 Alkaline Phosphatase 97 U/L (34-104) 07/17/22 05:36 Ammonia 52.0 umol/L (18-72) 07/02/22 05:48 Troponin I High Sens 5.1 pg/ml (0-14) D 06/30/22 12:26 Total Protein 5.7 gm/dl (6.0-8.3) L 07/17/22 05:36 Albumin 3.4 gm/dl (3.4-5.0) 07/17/22 05:36 Globulin 2.3 gm/dl (2.5-4.0) L 07/17/22 05:36 Albumin/Globulin Ratio 1.5 (0.9-2) 07/17/22 05:36 Lipase 16 U/L (11-82) 06/30/22 12:26 Urine Color Yellow 06/30/22 17:00 Urine Appearance Clear (Clear) 06/30/22 17:00 Urine pH 7.0 (4.5-7.5) 06/30/22 17:00 Ur Specific [place] 1.010 (1.000-1.030) 06/30/22 17:00 Urine Protein Negative (Negative) 06/30/22 17:00 Urine Glucose (UA) Negative (Negative) 06/30/22 17:00 Urine Ketones Negative (Negative) 06/30/22 17:00 Urine Blood Negative (Negative) 06/30/22 17:00 Urine Nitrite Negative (Negative) 06/30/22 17:00 Urine Bilirubin Negative (Negative) 06/30/22 17:00 Urine Urobilinogen Negative (Negative) 06/30/22 17:00 Ur Leukocyte Esterase Negative (Negative) 06/30/22 17:00 POC Ur Test Cancelled 07/01/22 18:52 Urine Opiates Screen Pos (Neg) H 06/30/22 17:00 U Codeine Confrm GC/MS NEGATIVE ng/mL (<50) 06/30/22 17:00 Ur Morphine (GC/MS) 465 ng/mL (<50) H 06/30/22 17:00 Ur Hydrocodone (GC/MS) NEGATIVE ng/mL (<50) 06/30/22 17:00 Ur Norhydrocodone NEGATIVE ng/mL (<50) 06/30/22 17:00 Ur Noroxycodone NEGATIVE ng/mL (<50) 06/30/22 17:00 Urine Oxycodone (GC/MS) NEGATIVE ng/mL (<50) 06/30/22 17:00 U Oxymorphone GC/MS NEGATIVE ng/mL (<50) 06/30/22 17:00 Ur Methadone, Qual Neg (Neg) 06/30/22 17:00 Ur Hydromorphone (GC/MS) NEGATIVE ng/mL (<50) 06/30/22 17:00 Urine Barbiturates Neg (Neg) 06/30/22 17:00 Ur Phencyclidine (PCP) Neg (Neg) 06/30/22 17:00 U Amphetamin/Meth Scrn Neg (Neg) 06/30/22 17:00 Urine MDEA negative 06/30/22 17:00 MDMA (Ecstasy) Screen Pos (Neg) H 06/30/22 17:00 MDMA negative 06/30/22 17:00 Urine MDMA negative 06/30/22 17:00 U Benzodiazepines Scrn Neg (Neg) 06/30/22 17:00 Ur Cocaine Metabolite Neg (Neg) 06/30/22 17:00 U Marijuana (THC) Screen Neg (Neg) 06/30/22 17:00 Drug Screen Comment SEE NOTE 06/30/22 17:00 Ethyl Alcohol mg/dL 252.9 mg/dl (<10.0) H 06/30/22 12:26 SARS-CoV-2, RNA, NAAT NEGATIVE (NEGATIVE) 06/30/22 15:30 Blood Type O Positive 07/14/22 22:43 Antibody Screen NEGATIVE 07/14/22 22:[address] 06/30/22 13:14 CT chest diagnostic wo con, CT thoracic spine wo con, CT lumbar spine wo con, CT abd pelvis wo con CLINICAL HISTORY: 37 years-old Female with trauma. Acute chest and abdominal trauma status post fall TECHNIQUE: Multiaxial CT images of the chest, abdomen and pelvis, CT and thoracic spine were performed without contrast. A dose lowering technique was utilized adhering to the principles of ALARA. COMPARISON: Chest CT 07/13/21, CT abdomen 04/15/22. FINDINGS: CT CHEST: The lungs are clear. The mediastinal vascular structures are within normal limits. Right IJ Qpzwcd-[id number] catheter distal tip terminates within the mid SVC. No mediastinal or hilar lymphadenopathy. No pleural effusion or pneumothorax. Mild sigmoidal scoliosis of the thoracic spine. No acute fracture identified. CT ABDOMEN/PELVIS: No pneumatosis or pneumoperitoneum. Spleen is enlarged measuring 13.4 cm in length. Unremarkable pancreas with a few punctate calcifications noted within the uncinate process. The adrenal glands are within normal limits. Punctate calcification within the jessica hepatis may represent an adherent gallstone. Mild marginal nodularity of the liver suggestive of cirrhosis. No hepatic mass identified. Unremarkable kidneys, urinary bladder, uterus and adnexa. Aorta and IVC are unremarkable. Abdominal varicosities. There is no lymphadenopathy identified. No bowel obstruction or bowel wall thickening. Moderate fecal retention. Noninflamed appendix. No ascites or mesenteric inflammation. Tiny fat filled umbilical hernia. No acute fracture identified. CT THORACIC SPINE: Upper thoracic levoscoliosis. Mild multilevel spondylitic spurring and facet arthrosis. The intervertebral disc spaces are generally well maintained. Equivocal acute nondisplaced fracture involves the posterior medial aspect of the right ninth and 10th ribs. (Please see image 186 of series 10 and image 21 of the sagittal series. No acute vertebral body fracture identified. CT LUMBAR SPINE: Mild lumbar levoscoliosis. Mild to moderate multilevel facet arthrosis. No acute fracture, subluxation or endplate erosion. The imaged sacrum and iliac bones appear intact. Healed chronic fracture of the right inferior L5 articular facet. IMPRESSION: 1. Suggestion of subtle acute nondisplaced fractures involving the posterior medial aspects of the right ninth and 10th ribs. Correlate with point tenderness. 2. No pneumothorax. 3. No acute posttraumatic intrathoracic, intra-abdominal or intrapelvic abnormality 4. Cirrhosis with splenomegaly and abdominal varicosities compatible with portal venous hypertension. ACT 112: Negative or not required by law. Electronically signed by: Bud Madera M.D. 06/30/2022 3:[address] 06/30/22 13:22 CT chest diagnostic wo con, CT thoracic spine wo con, CT lumbar spine wo con, CT abd pelvis wo con CLINICAL HISTORY: 37 years-old Female with trauma. Acute chest and abdominal trauma status post fall TECHNIQUE: Multiaxial CT images of the chest, abdomen and pelvis, CT and thoracic spine were performed without contrast. A dose lowering technique was utilized adhering to the principles of ALARA. COMPARISON: Chest CT 07/13/21, CT abdomen 04/15/22. FINDINGS: CT CHEST: The lungs are clear. The mediastinal vascular structures are within normal limits. Right IJ Rlqlqb-i-Zbmv catheter distal tip terminates within the mid SVC. No mediastinal or hilar lymphadenopathy. No pleural effusion or pneumothorax. Mild sigmoidal scoliosis of the thoracic spine. No acute fracture identified. CT ABDOMEN/PELVIS: No pneumatosis or pneumoperitoneum. Spleen is enlarged measuring 13.4 cm in length. Unremarkable pancreas with a few punctate calcifications noted within the uncinate process. The adrenal glands are within normal limits. Punctate calcification within the jessica hepatis may represent an adherent gallstone. Mild marginal nodularity of the liver suggestive of cirrhosis. No hepatic mass identified. Unremarkable kidneys, urinary bladder, uterus and adnexa. Aorta and IVC are unremarkable. Abdominal varicosities. There is no lymphadenopathy identified. No bowel obstruction or bowel wall thickening. Moderate fecal retention. Noninflamed appendix. No ascites or mesenteric inflammation. Tiny fat filled umbilical hernia. No acute fracture identified. CT THORACIC SPINE: Upper thoracic levoscoliosis. Mild multilevel spondylitic spurring and facet arthrosis. The intervertebral disc spaces are generally well maintained. Equivocal acute nondisplaced fracture involves the posterior medial aspect of the right ninth and 10th ribs. (Please see image 186 of series 10 and image 21 of the sagittal series. No acute vertebral body fracture identified. CT LUMBAR SPINE: Mild lumbar levoscoliosis. Mild to moderate multilevel facet arthrosis. No acute fracture, subluxation or endplate erosion. The imaged sacrum and iliac bones appear intact. Healed chronic fracture of the right inferior L5 articular facet. IMPRESSION: 1. Suggestion of subtle acute nondisplaced fractures involving the posterior medial aspects of the right ninth and 10th ribs. Correlate with point tenderness. 2. No pneumothorax. 3. No acute posttraumatic intrathoracic, intra-abdominal or intrapelvic abnormality 4. Cirrhosis with splenomegaly and abdominal varicosities compatible with portal venous hypertension. ACT 112: Negative or not required by law. Electronically signed by: Bud Madera M.D. 06/30/2022 3:[address] 06/30/22 13:22 CT chest diagnostic wo con, CT thoracic spine wo con, CT lumbar spine wo con, CT abd pelvis wo con CLINICAL HISTORY: 37 years-old Female with trauma. Acute chest and abdominal trauma status post fall TECHNIQUE: Multiaxial CT images of the chest, abdomen and pelvis, CT and thoracic spine were performed without contrast. A dose lowering technique was utilized adhering to the principles of ALARA. COMPARISON: Chest CT 07/13/21, CT abdomen 04/15/22. FINDINGS: CT CHEST: The lungs are clear. The mediastinal vascular structures are within normal limits. Right IJ Wpxqmq-z-Ienb catheter distal tip terminates within the mid SVC. No mediastinal or hilar lymphadenopathy. No pleural effusion or pneumothorax. Mild sigmoidal scoliosis of the thoracic spine. No acute fracture identified. CT ABDOMEN/PELVIS: No pneumatosis or pneumoperitoneum. Spleen is enlarged measuring 13.4 cm in length. Unremarkable pancreas with a few punctate calcifications noted within the uncinate process. The adrenal glands are within normal limits. Punctate calcification within the jessica hepatis may represent an adherent gallstone. Mild marginal nodularity of the liver suggestive of cirrhosis. No hepatic mass identified. Unremarkable kidneys, urinary bladder, uterus and adnexa. Aorta and IVC are unremarkable. Abdominal varicosities. There is no lymphadenopathy identified. No bowel obstruction or bowel wall thickening. Moderate fecal retention. Noninflamed appendix. No ascites or mesenteric inflammation. Tiny fat filled umbilical hernia. No acute fracture identified. CT THORACIC SPINE: Upper thoracic levoscoliosis. Mild multilevel spondylitic spurring and facet arthrosis. The intervertebral disc spaces are generally well maintained. Equivocal acute nondisplaced fracture involves the posterior medial aspect of the right ninth and 10th ribs. (Please see image 186 of series 10 and image 21 of the sagittal series. No acute vertebral body fracture identified. CT LUMBAR SPINE: Mild lumbar levoscoliosis. Mild to moderate multilevel facet arthrosis. No acute fracture, subluxation or endplate erosion. The imaged sacrum and iliac bones appear intact. Healed chronic fracture of the right inferior L5 articular facet. IMPRESSION: 1. Suggestion of subtle acute nondisplaced fractures involving the posterior medial aspects of the right ninth and 10th ribs. Correlate with point tenderness. 2. No pneumothorax. 3. No acute posttraumatic intrathoracic, intra-abdominal or intrapelvic abnormality 4. Cirrhosis with splenomegaly and abdominal varicosities compatible with portal venous hypertension. ACT 112: Negative or not required by law. Electronically signed by: Bud Madera M.D. 06/30/2022 3:[address] 06/30/22 13:[address] DOSE: 959.53 mGy.cm HISTORY: fall TECHNIQUE: Multiaxial CT images of the cervical spine were performed and reformatted in the sagittal and coronal plane without the use of contrast. A dose lowering technique was utilized adhering to the principles of ALARA. COMPARISON: Cervical spine CT 07/22/2021. FINDINGS: No fractures. No subluxation. Prevertebral soft tissues and the C1-C2 interval are intact. No pneumothorax. There is a partially visualized right jugular central venous catheter. IMPRESSION: No fractures within the cervical spine. ACT 112: Negative or not required by law. Electronically signed by: Weston Cisneros M.D. 06/30/2022 2:33 PM Abdomen/Pelvis CT 07/03/22 14:[address] WITH IV CONTRAST CT DOSE: 345.53 mGy.cm HISTORY: Acute right lower quadrant abdominal pain R/O Appendicitis TECHNIQUE: Multiaxial CT images of the abdomen and pelvis were performed following the IV administration of 93 cc of Optiray, A dose lowering technique was utilized adhering to the principles of ALARA. COMPARISON STUDY: CT abdomen and pelvis 06/30/2022 FINDINGS: Trace pleural effusions with dependent bibasilar atelectasis. No pneumatosis or pneumoperitoneum. Spleen is enlarged measuring 13.4 cm in length. Unremarkable pancreas with a few punctate calcifications noted within the uncinate process. The adrenal glands are within normal limits. Contracted gallbladder. Mild marginal nodularity of the liver suggestive of cirrhosis. . Liver is diffusely heterogeneous. No hepatic mass identified. Unremarkable kidneys, uterus and adnexa. Mild nonspecific urinary bladder wall thickening. Aorta and IVC are unremarkable. Abdominal varicosities. There is no lymphadenopathy identified. Distended debris-filled stomach suggestive of recent meal. Small volume of abdominal pelvic ascites with diffuse mesenteric edema is new from prior. Moderate to extensive colonic fecal retention as progressed. Noninflamed appendix. Mild colonic diverticulosis. Mild wall thickening of the cecum and ascending colon is new from the prior study. Tiny fat filled umbilical hernia. The previously questioned subtle fractures of the posterior right ninth and 10th ribs are not appreciated. IMPRESSION: 1. Cirrhosis with splenomegaly and abdominal varicosities compatible with portal venous hypertension redemonstrated. There is new small volume of abdominal pelvic ascites with mesenteric edema. 2. Noninflamed appendix. 3. Wall thickening of the cecum and proximal ascending colon is new from the prior exam and may be secondary to portal colopathy. An infectious or inflammatory colitis could appear similarly. 4. Moderate to extensive fecal retention. 5. Trace pleural effusions. ACT 112: Negative or not required by law. The above report was generated using voice recognition software. It may contain grammatical, syntax or spelling errors. Electronically signed by: Bud Madera M.D. 07/03/2022 4:[address] 07/09/22 09:[address] DOSE: 638.56 mGycm HISTORY: s/p fall, head trauma TECHNIQUE: Multiaxial CT images of the head were performed without the use of intravenous contrast. Automated exposure control was utilized for this study. A dose lowering technique was utilized adhering to the principles of ALARA. Comparison: Head CT 06/30/2022. Findings: The paranasal sinuses and mastoid air cells are clear. The calvarium and skull base are intact. The ventricles and sulci are within normal limits. There is no mass, hematoma, midline shift, or acute infarct. Impression: No acute intracranial abnormality. ACT 112: Negative or not required by law. Electronically signed by: Weston Cisneros M.D. 07/09/2022 10:09 AM Ribs w/Chest X-Ray 07/11/22 16:15 PA CHEST WITH RIGHT-SIDED RIB SERIES CLINICAL HISTORY: Follow-up rib fractures. FINDINGS: A PA chest radiograph with 4 additional views from a right sided rib series is compared to radiographs and chest CT dated 06/30/2022. A right internal jugular central medicine infusion port is unchanged in position. The cardiomediastinal silhouette is unremarkable. The lungs and pleural spaces are clear noting bibasilar atelectasis. No pneumothorax is seen. There is no radiographic evidence of acute/displaced right-sided rib fracture on the rib series. There are chronic/healed left-sided rib fractures. There is thoracolumbar scoliosis. IMPRESSION: 1 No active disease in the chest. 2. There is no radiographic evidence of acute/displaced right-sided rib fracture in the rib series. Subtle fractures questioned by CT are not apparent on x-ray. ACT 112: Negative or not required by law. Electronically signed by: Brodie Gillis M.D. 07/11/2022 4:49 PM Abdomen Ultrasound 07/14/22 10:54 ULTRASOUND ASCITES CHECK CLINICAL HISTORY: Ascites. COMPARISON STUDY: Ultrasound ascites check dated 07/07/2022. FINDINGS: Real-time grayscale sonography of all 4 quadrants of the abdomen is performed to assess for abdominal ascites. No abdominal ascites is identified. The liver is cirrhotic in morphology and appears steatotic. The spleen is enlarged measuring 17.7 cm in length. IMPRESSION: No abdominal ascites is identified. Electronically signed by: Brodie Gillis M.D. 07/14/2022 12:02 PM Medications Administered Current Inpatient Medications Acetaminophen (Acetaminophen 500 Mg Tab) 500 mg PO Q6H PRN PRN Reason: pain/fever Stop: 07/31/22 19:39 Last Admin: 07/16/22 06:27 Dose: 500 mg Albuterol (Albuterol Hfa 8 Gm Inhaler) 2 puffs INH BID PRN PRN Reason: Shortness Of Breath Stop: 07/30/22 17:53 Last Admin: 07/18/22 07:05 Dose: 2 puffs Amphetamine/Dextroamphetamine (Amphetamine Asp/Sulf/Dextramph 5 Mg Tab) 5 mg PO [id number] [facility] Stop: 07/27/22 13:59 Last Admin: 07/18/22 06:26 Dose: 5 mg Ascorbic Acid (Ascorbic Acid 500 Mg Tab) 500 mg PO QAM [facility] Stop: 07/31/22 08:59 Last Admin: 07/18/22 08:32 Dose: 500 mg Baclofen (Baclofen 10 Mg Tab) 5 mg PO BID [facility] Stop: 08/16/22 20:59 Last Admin: 07/18/22 08:29 Dose: 5 mg Bisacodyl (Bisacodyl 5 Mg Tabec) 5 mg PO BID PRN PRN Reason: Constipation Stop: 08/17/22 12:03 Bupropion HCl (Bupropion Sr 150 Mg Tabcr) 150 mg PO DAILY [facility] Stop: 08/13/22 14:29 Last Admin: 07/18/22 08:31 Dose: 150 mg Diclofenac Sodium (Diclofenac Sod 1% Gel 100 Gm Tube) 4 gm EXT TID [facility]; Protocol Stop: 07/31/22 20:59 Last Admin: 07/18/22 08:36 Dose: 4 gm Fluticasone Propionate (Fluticasone Propionate Na Spr 16 Gm Btl) 2 sprays LINETTE BID [facility] Stop: 07/30/22 20:59 Last Admin: 07/18/22 08:35 Dose: 2 sprays Fluticasone/Vilanterol (Fluticasone/Vilanterol 200/25mcg 14 Puffs/Inhaler) 1 puffs INH DAILY [facility] Stop: 07/31/22 08:59 Last Admin: 07/18/22 08:36 Dose: 1 puffs Furosemide (Furosemide 40 Mg Tab) 40 mg PO QAM [facility] Stop: 08/17/22 08:59 Last Admin: 07/18/22 08:37 Dose: 40 mg Heparin Sodium (Porcine) (Heparin 100 Unit/Ml 5ml Flush) 5 ml FLUSH PRN PRN PRN Reason: Flush Stop: 08/01/22 00:52 Last Admin: 07/18/22 08:39 Dose: 5 ml Hydroxyzine HCl (Hydroxyzine Hcl 25 Mg Tab) 25 mg PO TID PRN PRN Reason: Anxiety Stop: 07/30/22 17:53 Last Admin: 07/18/22 06:29 Dose: 25 mg Ipratropium [place] (Ipratropium Hfa Inhaler (Combivent Respimat P&T Subs)) 1 puffs INH BIDR [facility] Stop: 07/30/22 18:59 Last Admin: 07/18/22 07:05 Dose: 1 puffs Ketorolac Tromethamine (Ketorolac Tromethamine 15 Mg/Ml Vial) 15 mg IV Q6H PRN PRN Reason: Moderate Pain (4, 5, 6) Stop: 07/22/22 10:01 Last Admin: 07/18/22 08:34 Dose: 15 mg Lactulose (Lactulose Syrup 20 Gm/30 Ml Udc) 20 gm PO QAM [facility] Stop: 07/31/22 08:59 Last Admin: 07/18/22 08:30 Dose: 20 gm Lidocaine (Lidocaine 5% 1 Patch) 1 patch TD QAM [facility] Stop: 07/30/22 16:29 Last Admin: 07/18/22 08:35 Dose: 1 patch Loratadine (Loratadine 10 Mg Tab) 10 mg PO QAM [facility] Stop: 07/31/22 08:59 Last Admin: 07/18/22 08:32 Dose: 10 mg Magnesium Oxide (Magnesium Oxide 400 Mg Tab) 400 mg PO BID [facility] Stop: 07/30/22 20:59 Last Admin: 07/18/22 08:33 Dose: 400 mg Melatonin (Melatonin 3 Mg Tab) 3 mg PO HS PRN PRN Reason: Sleep Stop: 07/31/22 23:04 Last Admin: 07/17/22 21:42 Dose: 3 mg Miscellaneous (Remove Lidoderm Patch) 1 each N/A DAILY@2100 [facility] Stop: 07/30/22 20:59 Last Admin: 07/17/22 21:43 Dose: 1 each Miscellaneous (Remove Nicoderm Patch) 1 each N/A QAM [facility] Stop: 07/31/22 08:59 Last Admin: 07/18/22 08:34 Dose: 1 each Montelukast Sodium (Montelukast Sodium 10 Mg Tablet) 10 mg PO HS [facility] Stop: 07/30/22 20:59 Last Admin: 07/17/22 21:41 Dose: 10 mg Multivitamins (Multivitamin Tab) 1 tab PO QAM [facility] Stop: 07/31/22 08:59 Last Admin: 07/18/22 08:32 Dose: 1 tab Nicotine (Nicotine 14 Mg/24 Hr Patch) 14 mg TD QAM [facility] Stop: 07/31/22 08:59 Last Admin: 07/18/22 08:32 Dose: 14 mg Ondansetron HCl (Ondansetron Inj 2 Mg/Ml 2 Ml Vial) 4 mg IV Q6H PRN PRN Reason: Nausea Stop: 07/30/22 19:51 Last Admin: 07/16/22 08:08 Dose: 4 mg Oxycodone HCl (Oxycodone Hcl Ir 5 Mg Tab (Immediate Release)) 5 - 10 mg PO Q12 PRN PRN Reason: Severe Pain (7, 8, 9, 10) Stop: 07/31/22 10:03 Pantoprazole Sodium (Pantoprazole 40 Mg Tab) 40 mg PO BID [facility] Stop: 07/31/22 20:59 Last Admin: 07/18/22 08:31 Dose: 40 mg Phenylephrine HCl (Anusol Supp 1 Ea) 1 supp ND Q8 PRN PRN Reason: Hemorrhoids Stop: 08/15/22 15:40 Polyethylene Glycol (Polyethylene (Miralax) 17 Gm Pack) 17 gm PO DAILY PRN PRN Reason: Constipation Stop: 07/30/22 19:51 Potassium Phosphate (Pot Phosphate Monobasic W/ Sod Tab) 2 tab PO QID [facility] Stop: 07/30/22 20:59 Last Admin: 07/18/22 12:27 Dose: 2 tab Sertraline HCl (Sertraline Hcl 50 Mg Tablet) 50 mg PO QAM [facility] Stop: 08/13/22 14:29 Last Admin: 07/18/22 08:34 Dose: 50 mg Spironolactone (Spironolactone 100 Mg Tab) 200 mg PO QAM [facility] Stop: 08/06/22 08:59 Last Admin: 07/18/22 08:31 Dose: 200 mg Thiamine HCl (Thiamine Hcl 100 Mg Tab) [facility]: 07/31/22 08:59 Last Admin: 07/18/22 08:32 Dose: 100 mg Umeclidinium Montezuma (Umeclidinium [place] 62.5mcg/Blister 7 Puffs/Inhaler) 1 puffs INH [facility] Stop: 07/31/22 08:59 Last Admin: 07/18/22 08:35 Dose: 1 puffs Vitamin D (Cholecalciferol 1,000 Units 25 Mcg Tab) 2,000 units [facility] Stop: 07/31/22 08:59 Last Admin: 07/18/22 08:31 Dose: 2,000 units (1) Cirrhosis Ascites presence: with ascites Hepatic cirrhosis type: alcoholic cirrhosis Qualified Code(s): K70.31 - Alcoholic cirrhosis of liver with ascites
[2022-07-18 13:56] LABS: Appearance Urine Clear (Clear); Bilirubin Urine Negative (Negative); Blood Urine Negative (Negative); Color Urine Yellow; Glucose Urine UA Negative (Negative); Ketones Urine Negative (Negative); Leukocyte Esterase Urine Negative (Negative); Nitrite Urine Negative (Negative); Protein Urine Negative (Negative); Specific Gravity Urine 1.013 (1.000-1.030); Urobilinogen Urine Negative (Negative)
[2022-07-18] MEDS: MONTELUKAST SODIUM 10 MG TABLET PO SCH (20:01)
[2022-07-18] MEDS: DOCUSATE SODIUM 100 MG CAP PO SCH (20:01)
[2022-07-18] MEDS: MELATONIN 3 MG TAB PO PRN (21:04)
[2022-07-19] MEDS: oxyCODONE HCL IR 5 MG TAB (IMMEDIATE RELEASE) PO PRN ×3 (00:41→18:08)
[2022-07-19] MEDS: KETOROLAC TROMETHAMINE 15 MG/ML VIAL IV PRN (04:36)
[2022-07-19] MEDS: HEPARIN 100 UNIT/ML 5ML FLUSH FLUSH PRN ×3 (04:37→23:19)
[2022-07-19 06:25] LABS: Basophils # (auto) 0.01 K/uL (0-0.2); Basophils % (auto) 0.2 %; Eosinophils # (auto) 0.08 K/uL (0-0.50); Hematocrit (blood only) 21.5 % (34.1-44.9); Hemoglobin 7.5 g/dl (12.0-16.0); Immature Granulocytes # (auto) 0.02 K/uL (0.00-0.02); Immature Granulocytes % (auto) 0.5 %; Lymphocytes # (auto) 0.97 K/uL (1.2-3.4); Lymphocytes % (auto) 23.8 %; Mean Platelet Volume 9.8 fL (9.4-12.3); Monocytes # (auto) 0.38 K/uL (0.24-0.82); Monocytes % (auto) 9.3 %; Neutrophils # (auto) 2.62 K/uL (1.4-6.5); Neutrophils % (auto) 64.2 %; Platelet Count 94 K/uL (130-400); White Blood Count 4.08 K/ul (4.8-10.8)
[2022-07-19] MEDS: AMPHETAMINE ASP/SULF/DEXTRAMPH 5 MG TAB PO SCH ×2 (06:27→14:00)
[2022-07-19 06:46] LABS: Albumin Globulin Ratio 1.4 (0.9-2); Albumin Level 3.4 gm/dl (3.4-5.0); BUN Creatinine Ratio 10.2 (10-20); Bilirubin,Total 1.6 mg/dl (0.2-1.0); Calcium 8.9 mg/dl (8.5-10.1); Creatinine Clr Calc Pharmacy 40.6 ml/min; Est GFR (African American) 45.8 ml/min; Est GFR (Non-African American) 39.5 ml/min; Globulin 2.5 gm/dl (2.5-4.0); Magnesium 1.8 mg/dl (1.7-2.4); Mean Corpuscular Hemoglobin 30.6 pg (25.0-34.0); Mean Corpuscular Hgb Conc 34.9 g/dL (32.0-36.0); Mean Corpuscular Volume 87.8 fL (80.0-100.0); Phosphorus 6.1 mg/dl (2.5-4.9); Potassium 4.2 mmol/L (3.5-5.1); RBC Morphology Unremarkable; RDW Coefficient of Variation 18.2 % (11.5-14.5); RDW Standard Deviation 56.2 fL (36.4-46.3); Red Blood Count 2.45 M/uL (3.93-5.22); Total Protein 5.9 gm/dl (6.0-8.3)
[2022-07-19] MEDS: ALBUTEROL HFA 8 GM INHALER INH PRN ×2 (07:02→19:01)
[2022-07-19] MEDS: Ipratropium HFA Inhaler (Combivent Respimat P&T Subs) INH SCH ×2 (07:02→19:01)
[2022-07-19] MEDS ORDERED: LACTATED RINGER'S 500 ML IV ONE (07:24)
[2022-07-19] MEDS: FLUTICASONE PROPIONATE NA SPR 16 GM BTL NAE SCH ×2 (08:44→20:46)
[2022-07-19] MEDS: UMECLIDINIUM BROMIDE 62.5MCG/BLISTER 7 PUFFS/INHALER INH SCH (08:45)
[2022-07-19] MEDS: THIAMINE HCL 100 MG TAB PO SCH (08:46)
[2022-07-19] MEDS: NICOTINE 14 MG/24 HR PATCH TD SCH (08:46)
[2022-07-19] MEDS: LORATADINE 10 MG TAB PO SCH (08:46)
[2022-07-19] MEDS: CHOLECALCIFEROL 1,000 UNITS 25 MCG TAB PO SCH (08:46)
[2022-07-19] MEDS: LACTULOSE SYRUP 20 GM/30 ML UDC PO SCH (08:46)
[2022-07-19] MEDS: PANTOprazole 40 MG TAB PO SCH ×2 (08:46→20:43)
[2022-07-19] MEDS: POT PHOSPHATE MONOBASIC W/ SOD TAB PO SCH ×4 (08:46→20:41)
[2022-07-19] MEDS: MULTIVITAMIN TAB PO SCH (08:47)
[2022-07-19] MEDS: buPROPion SR 150 MG TABCR PO SCH (08:47)
[2022-07-19] MEDS: LIDOCAINE 5% 1 PATCH TD SCH (08:47)
[2022-07-19] MEDS: ASCORBIC ACID 500 MG TAB PO SCH (08:48)
[2022-07-19] MEDS: BACLOFEN 10 MG TAB PO SCH ×2 (08:48→20:44)
[2022-07-19] MEDS: SERTRALINE HCL 50 MG TABLET PO SCH (08:48)
[2022-07-19] MEDS: DOCUSATE SODIUM 100 MG CAP PO SCH ×2 (08:49→20:43)
[2022-07-19] MEDS: DICLOFENAC SOD 1% GEL 100 GM TUBE EXT SCH ×3 (08:49→20:45)
[2022-07-19] MEDS: FLUTICASONE/VILANTEROL 200/25MCG 14 PUFFS/INHALER INH SCH (08:49)
[2022-07-19 09:59] LABS: Creatinine Urine Random 62.2 mg/dl
[2022-07-19] MEDS: MAGNESIUM OXIDE 400 MG TAB PO SCH ×2 (10:32→23:14)
[2022-07-19] MEDS ORDERED: CIPROFLOXACIN 500 MG TAB PO SCH (12:00)
--- NOTE | 2022-07-19 12:10 | Hospitalist Progress Note ---
Date of Service July 19, 2022 Assessment & Plan (1) Fall: Plan: - s/p fall in shower in setting of possible ETOH intoxication - Head CT, cervical spine, thoracic, lumbar, abd/pelvis, chest CTs performed - evidence of acute nondisplaced fractures involving the posterior medial aspects of the right ninth and 10th ribs. Otherwise no traumatic injuries noted - Has not used IV Dilaudid for the past 3 days now - gabapentin tapered off - Continue baclofen as this is helping as per patient - will slowly tape - holding Toradol due to VAN - continue Voltaren gel - oxycodone back to q8 due to holding Toradol in setting of VAN (2) VAN (acute kidney injury): Plan: - possibly in the setting of NSAID use with toradol - will hold toradol - IVF - UA indicative of intrinsic injury likely from NSAID - will monitor after IVF - trend Cr - avoid further nephrotoxic medications (3) Hemoptysis: Plan: - unclear if true hemoptysis as patient did not have coughing or regurgitation prior to blood in spit - no obvious lesions noted in oral cavity - denies melena - hgb stable - vitals stable - will monitor for now - INR in AM (4) Closed rib fracture: Plan: - noted - continue IS (5) Alcohol use disorder: Plan: - patient recently relapsed - stressed importance of abstinence - would like to follow up outpatient rehab programs (6) Generalized anxiety disorder: Plan: - noted, continue home meds (7) Cirrhosis: Plan: - Patient with history of cirrhosis, following with [facility] - Left 2-month inpatient alcohol treatment facility 4 days [employer] and resumed drinking the day before arrival - 07/14/2022 - Abdominal ultrasound: No ascites - restarted lasix and aldactone now that VAN resolved - Hematochezia reported overnight, 07/15/2022 - s/p for EGD, colonoscopy 07/16/2022 with possible source of bleeding found to have hemorrhoid - hgb stable - Bowel regimen for hemorrhoid (8) Depression: Plan: - Patient reports that she has been taking Zoloft and Wellbutrin prior to admission - Zoloft and Wellbutrin restarted 07/14 - monitor qtc on ECG (9) Asthma: Plan: - continue inhalers Plan DVT Ppx: SCDs - Encouraged to ambulate frequently, patient verbalized understanding Code status: FULL PCP: Ritu Dispo: telemetry Shola Friend MD Hospital Medicine Admission and Anticipated Discharge Date Admission Date: June 30, 2022 Subjective Patient with ETOH cirrhosis with ascites, alcohol use disorder, depression, anxiety who presented after fall in shower with possible ETOH intoxication at that time. Being managed for pain control, weaned off opioids, started on gabapentin and baclofen per pain management. Course complicated by VAN, improved with IVF. Had episode of hematochezia, now s/p EGD and colonoscopy with mild portal hypertensive gastropathy and no source of bleeding on EGD, and polyp and hemorrhoid on colonoscopy. Tolerating regular diet. Patient complains of pain on right flank/shoulder area but having some improv ement. Denies n/v/. Denies chest pain, shortness of breath, diarrhea. Complaining of some dysuria symptoms today again, UA negative. Had small amount of blood in saliva/spit this morning but did not have episode of coughing or regurgitation prior to blood in saliva. Hgb stable, vitals stable. Review of Systems Review of Systems: all noted and negative except for above Physical Exam Physical Exam: General- oriented x 3, not in distress, speaks in sentences with no effort or accessory muscle use Eyes- anicteric Neck- no JVD Lungs- clear breath sounds bilaterally, no crackles Heart- normal rate, regular rhythm; no murmurs Abdomen- normal bowel sounds, not distended, soft, no tenderness Extremities- no pretibial edema, no calf tenderness Neuro- alert, oriented x 3; no gross focal neurologic deficits Skin- warm & dry Results & Data Results & Data ([facility]) Vital Signs (Past 12 Hours) Vital Signs Temp Pulse Resp BP Pulse Ox O2 Del Method 07/19/22 08:00 36.6 C 74 16 104/65 98 Room Air 07/19/22 07:04 74 16 94 Room Air Diagnostic Findings Laboratory Results WBC 4.08 K/ul (4.8-10.8) L 07/19/22 06:07 RBC 2.45 M/uL (3.93-5.22) L 07/19/22 06:07 Hgb 7.5 g/dl (12.0-16.0) L 07/19/22 06:07 Hct 21.5 % (34.1-44.9) L 07/19/22 06:07 MCV 87.8 fL (80.0-100.0) 07/19/22 06:07 MCH 30.6 pg (25.0-34.0) 07/19/22 06:07 MCHC 34.9 g/dL (32.0-36.0) 07/19/22 06:07 RDW Std Deviation 56.2 fL (36.4-46.3) H 07/19/22 06:07 RDW Coeff of Yasmine 18.2 % (11.5-14.5) H 07/19/22 06:07 Plt Count 94 K/uL (130-400) L 07/19/22 06:07 MPV 9.8 fL (9.4-12.3) 07/19/22 06:07 Immature Gran % (Auto) 0.5 % 07/19/22 06:07 Neut % (Auto) 64.2 % 07/19/22 06:07 Lymph % (Auto) 23.8 % 07/19/22 06:07 [place] % (Auto) 9.3 % 07/19/22 06:07 Eos % (Auto) 2.0 % 07/19/22 06:07 Baso % (Auto) 0.2 % 07/19/22 06:07 Neut # (Auto) 2.62 K/uL (1.4-6.5) 07/19/22 06:07 Lymph # (Auto) 0.97 K/uL (1.2-3.4) L 07/19/22 06:07 [place] # (Auto) 0.38 K/uL (0.24-0.82) 07/19/22 06:07 Eos # (Auto) 0.08 K/uL (0-0.50) 07/19/22 06:07 Baso # (Auto) 0.01 K/uL (0-0.2) 07/19/22 06:07 Immature Gran # (Auto) 0.02 K/uL (0.00-0.02) 07/19/22 06:07 RBC Morphology Unremarkable 07/19/22 06:07 Polychromasia 1+ 07/07/22 06:34 Poikilocytosis Present 07/17/22 05:36 Target Cells 1+ 07/09/22 06:44 PT 13.7 Seconds (9.0-12.0) H 07/17/22 05:36 INR 1.3 (0.9-1.1) H 07/17/22 05:36 APTT 32.0 Seconds (21.0-31.0) H 06/30/22 12:26 PTT Ratio 1.2 06/30/22 12:26 Sodium 139 mmol/L (136-145) 07/19/22 06:07 Potassium 4.2 mmol/L (3.5-5.1) 07/19/22 06:07 Chloride 104 mmol/L (98-107) 07/19/22 06:07 Carbon Dioxide 26 mmol/L (21-32) 07/19/22 06:07 Anion Gap 9 (3-11) 07/19/22 06:07 BUN 17 mg/dl (6-23) 07/19/22 06:07 Creatinine 1.66 mg/dl (0.6-1.2) H 07/19/22 06:07 Est Cr Clr Drug Dosing 40.6 ml/min 07/19/22 06:07 Est GFR ( Amer) 45.8 ml/min 07/19/22 06:07 Est GFR (Non-Af Amer) 39.5 ml/min 07/19/22 06:07 BUN/Creatinine Ratio 10.2 (10-20) 07/19/22 06:07 Glucose 95 mg/dl (70-99(Fasting)) 07/19/22 06:07 POC Glucose 71 mg/dl (70-99) 07/02/22 07:38 Calcium 8.9 mg/dl (8.5-10.1) 07/19/22 06:07 Phosphorus 6.1 mg/dl (2.5-4.9) H 07/19/22 06:07 Magnesium 1.8 mg/dl (1.7-2.4) 07/19/22 06:07 Total Bilirubin 1.6 mg/dl (0.2-1.0) H 07/19/22 06:07 Direct Bilirubin 0.7 mg/dl (0-0.2) H 07/14/22 10:54 AST 26 U/L (13-39) 07/19/22 06:07 ALT 17 U/L (7-52) 07/19/22 06:07 Alkaline Phosphatase 107 U/L (34-104) H 07/19/22 06:07 Ammonia 52.0 umol/L (18-72) 07/02/22 05:48 Troponin I High Sens 5.1 pg/ml (0-14) D 06/30/22 12:26 Total Protein 5.9 gm/dl (6.0-8.3) L 07/19/22 06:07 Albumin 3.4 gm/dl (3.4-5.0) 07/19/22 06:07 Globulin 2.5 gm/dl (2.5-4.0) 07/19/22 06:07 Albumin/Globulin Ratio 1.4 (0.9-2) 07/19/22 06:07 Lipase 16 U/L (11-82) 06/30/22 12:26 Urine Color Yellow 07/18/22 13:40 Urine Appearance Clear (Clear) 07/18/22 13:40 Urine pH 7.0 (4.5-7.5) 07/18/22 13:40 Ur Specific [place] 1.013 (1.000-1.030) 07/18/22 13:40 Urine Protein Negative (Negative) 07/18/22 13:40 Urine Glucose (UA) Negative (Negative) 07/18/22 13:40 Urine Ketones Negative (Negative) 07/18/22 13:40 Urine Blood Negative (Negative) 07/18/22 13:40 Urine Nitrite Negative (Negative) 07/18/22 13:40 Urine Bilirubin Negative (Negative) 07/18/22 13:40 Urine Urobilinogen Negative (Negative) 07/18/22 13:40 Ur Leukocyte Esterase Negative (Negative) 07/18/22 13:40 Ur Random Creatinine 62.2 mg/dl 07/19/22 09:00 Ur Random Sodium 124 mmol/L 07/19/22 09:00 POC Ur Test Cancelled 07/01/22 18:52 Urine Opiates Screen Pos (Neg) H 06/30/22 17:00 U Codeine Confrm GC/MS NEGATIVE ng/mL (<50) 06/30/22 17:00 Ur Morphine (GC/MS) 465 ng/mL (<50) H 06/30/22 17:00 Ur Hydrocodone (GC/MS) NEGATIVE ng/mL (<50) 06/30/22 17:00 Ur Norhydrocodone NEGATIVE ng/mL (<50) 06/30/22 17:00 Ur Noroxycodone NEGATIVE ng/mL (<50) 06/30/22 17:00 Urine Oxycodone (GC/MS) NEGATIVE ng/mL (<50) 06/30/22 17:00 U Oxymorphone GC/MS NEGATIVE ng/mL (<50) 06/30/22 17:00 Ur Methadone, Qual Neg (Neg) 06/30/22 17:00 Ur Hydromorphone (GC/MS) NEGATIVE ng/mL (<50) 06/30/22 17:00 Urine Barbiturates Neg (Neg) 06/30/22 17:00 Ur Phencyclidine (PCP) Neg (Neg) 06/30/22 17:00 U Amphetamin/Meth Scrn Neg (Neg) 06/30/22 17:00 Urine MDEA negative 06/30/22 17:00 MDMA (Ecstasy) Screen Pos (Neg) H 06/30/22 17:00 MDMA negative 06/30/22 17:00 Urine MDMA negative 06/30/22 17:00 U Benzodiazepines Scrn Neg (Neg) 06/30/22 17:00 Ur Cocaine Metabolite Neg (Neg) 06/30/22 17:00 U Marijuana (THC) Screen Neg (Neg) 06/30/22 17:00 Drug Screen Comment SEE NOTE 06/30/22 17:00 Ethyl Alcohol mg/dL 252.9 mg/dl (<10.0) H 06/30/22 12:26 SARS-CoV-2, RNA, NAAT NEGATIVE (NEGATIVE) 06/30/22 15:30 Blood Type O Positive 07/14/22 22:43 Antibody Screen NEGATIVE 07/14/22 22:[address] 06/30/22 13:14 CT chest diagnostic wo con, CT thoracic spine wo con, CT lumbar spine wo con, CT abd pelvis wo con CLINICAL HISTORY: 37 years-old Female with trauma. Acute chest and abdominal trauma status post fall TECHNIQUE: Multiaxial CT images of the chest, abdomen and pelvis, CT and thoracic spine were performed without contrast. A dose lowering technique was utilized adhering to the principles of ALARA. COMPARISON: Chest CT 07/13/21, CT abdomen 04/15/22. FINDINGS: CT CHEST: The lungs are clear. The mediastinal vascular structures are within normal limits. Right IJ Harsxo-q-Vxgd catheter distal tip terminates within the mid SVC. No mediastinal or hilar lymphadenopathy. No pleural effusion or pneumothorax. Mild sigmoidal scoliosis of the thoracic spine. No acute fracture identified. CT ABDOMEN/PELVIS: No pneumatosis or pneumoperitoneum. Spleen is enlarged measuring 13.4 cm in length. Unremarkable pancreas with a few punctate calcifications noted within the uncinate process. The adrenal glands are within normal limits. Punctate calcification within the jessica hepatis may represent an adherent gallstone. Mild marginal nodularity of the liver suggestive of cirrhosis. No hepatic mass identified. Unremarkable kidneys, urinary bladder, uterus and adnexa. Aorta and IVC are unremarkable. Abdominal varicosities. There is no lymphadenopathy identified. No bowel obstruction or bowel wall thickening. Moderate fecal retention. Noninflamed appendix. No ascites or mesenteric inflammation. Tiny fat filled umbilical hernia. No acute fracture identified. CT THORACIC SPINE: Upper thoracic levoscoliosis. Mild multilevel spondylitic spurring and facet arthrosis. The intervertebral disc spaces are generally well maintained. Equivocal acute nondisplaced fracture involves the posterior medial aspect of the right ninth and 10th ribs. (Please see image 186 of series 10 and image 21 of the sagittal series. No acute vertebral body fracture identified. CT LUMBAR SPINE: Mild lumbar levoscoliosis. Mild to moderate multilevel facet arthrosis. No acute fracture, subluxation or endplate erosion. The imaged sacrum and iliac bones appear intact. Healed chronic fracture of the right inferior L5 articular facet. IMPRESSION: 1. Suggestion of subtle acute nondisplaced fractures involving the posterior medial aspects of the right ninth and 10th ribs. Correlate with point tenderness. 2. No pneumothorax. 3. No acute posttraumatic intrathoracic, intra-abdominal or intrapelvic abnormality 4. Cirrhosis with splenomegaly and abdominal varicosities compatible with portal venous hypertension. ACT 112: Negative or not required by law. Electronically signed by: Bud Madera M.D. 06/30/2022 3:[address] 06/30/22 13:22 CT chest diagnostic wo con, CT thoracic spine wo con, CT lumbar spine wo con, CT abd pelvis wo con CLINICAL HISTORY: 37 years-old Female with trauma. Acute chest and abdominal trauma status post fall TECHNIQUE: Multiaxial CT images of the chest, abdomen and pelvis, CT and thoracic spine were performed without contrast. A dose lowering technique was utilized adhering to the principles of ALARA. COMPARISON: Chest CT 07/13/21, CT abdomen 04/15/22. FINDINGS: CT CHEST: The lungs are clear. The mediastinal vascular structures are within normal limits. Right IJ [place]-o-Aubn catheter distal tip terminates within the mid SVC. No mediastinal or hilar lymphadenopathy. No pleural effusion or pneumothorax. Mild sigmoidal scoliosis of the thoracic spine. No acute fracture identified. CT ABDOMEN/PELVIS: No pneumatosis or pneumoperitoneum. Spleen is enlarged measuring 13.4 cm in length. Unremarkable pancreas with a few punctate calcifications noted within the uncinate process. The adrenal glands are within normal limits. Punctate calcification within the jessica hepatis may represent an adherent gallstone. Mild marginal nodularity of the liver suggestive of cirrhosis. No hepatic mass identified. Unremarkable kidneys, urinary bladder, uterus and adnexa. Aorta and IVC are unremarkable. Abdominal varicosities. There is no lymphadenopathy identified. No bowel obstruction or bowel wall thickening. Moderate fecal retention. Noninflamed appendix. No ascites or mesenteric inflammation. Tiny fat filled umbilical hernia. No acute fracture identified. CT THORACIC SPINE: Upper thoracic levoscoliosis. Mild multilevel spondylitic spurring and facet arthrosis. The intervertebral disc spaces are generally well maintained. Equivocal acute nondisplaced fracture involves the posterior medial aspect of the right ninth and 10th ribs. (Please see image 186 of series 10 and image 21 of the sagittal series. No acute vertebral body fracture identified. CT LUMBAR SPINE: Mild lumbar levoscoliosis. Mild to moderate multilevel facet arthrosis. No acute fracture, subluxation or endplate erosion. The imaged sacrum and iliac bones appear intact. Healed chronic fracture of the right inferior L5 articular facet. IMPRESSION: 1. Suggestion of subtle acute nondisplaced fractures involving the posterior medial aspects of the right ninth and 10th ribs. Correlate with point tenderness. 2. No pneumothorax. 3. No acute posttraumatic intrathoracic, intra-abdominal or intrapelvic abnormality 4. Cirrhosis with splenomegaly and abdominal varicosities compatible with portal venous hypertension. ACT 112: Negative or not required by law. Electronically signed by: Bud Madera M.D. 06/30/2022 3:[address] 06/30/22 13:22 CT chest diagnostic wo con, CT thoracic spine wo con, CT lumbar spine wo con, CT abd pelvis wo con CLINICAL HISTORY: 37 years-old Female with trauma. Acute chest and abdominal trauma status post fall TECHNIQUE: Multiaxial CT images of the chest, abdomen and pelvis, CT and thoracic spine were performed without contrast. A dose lowering technique was utilized adhering to the principles of ALARA. COMPARISON: Chest CT 07/13/21, CT abdomen 04/15/22. FINDINGS: CT CHEST: The lungs are clear. The mediastinal vascular structures are within normal limits. Right IJ Bjojjk-j-Glsb catheter distal tip terminates within the mid SVC. No mediastinal or hilar lymphadenopathy. No pleural effusion or pneumothorax. Mild sigmoidal scoliosis of the thoracic spine. No acute fracture identified. CT ABDOMEN/PELVIS: No pneumatosis or pneumoperitoneum. Spleen is enlarged measuring 13.4 cm in length. Unremarkable pancreas with a few punctate calcifications noted within the uncinate process. The adrenal glands are within normal limits. Punctate calcification within the jessica hepatis may represent an adherent gallstone. Mild marginal nodularity of the liver suggestive of cirrhosis. No hepatic mass identified. Unremarkable kidneys, urinary bladder, uterus and adnexa. Aorta and IVC are unremarkable. Abdominal varicosities. There is no lymphadenopathy identified. No bowel obstruction or bowel wall thickening. Moderate fecal retention. Noninflamed appendix. No ascites or mesenteric inflammation. Tiny fat filled umbilical hernia. No acute fracture identified. CT THORACIC SPINE: Upper thoracic levoscoliosis. Mild multilevel spondylitic spurring and facet arthrosis. The intervertebral disc spaces are generally well maintained. Equivocal acute nondisplaced fracture involves the posterior medial aspect of the right ninth and 10th ribs. (Please see image 186 of series 10 and image 21 of the sagittal series. No acute vertebral body fracture identified. CT LUMBAR SPINE: Mild lumbar levoscoliosis. Mild to moderate multilevel facet arthrosis. No acute fracture, subluxation or endplate erosion. The imaged sacrum and iliac bones appear intact. Healed chronic fracture of the right inferior L5 articular facet. IMPRESSION: 1. Suggestion of subtle acute nondisplaced fractures involving the posterior medial aspects of the right ninth and 10th ribs. Correlate with point tenderness. 2. No pneumothorax. 3. No acute posttraumatic intrathoracic, intra-abdominal or intrapelvic abnormality 4. Cirrhosis with splenomegaly and abdominal varicosities compatible with portal venous hypertension. ACT 112: Negative or not required by law. Electronically signed by: Bud Madera M.D. 06/30/2022 3:[address] 06/30/22 13:[address] DOSE: 959.53 mGy.cm HISTORY: fall TECHNIQUE: Multiaxial CT images of the cervical spine were performed and reformatted in the sagittal and coronal plane without the use of contrast. A dose lowering technique was utilized adhering to the principles of ALARA. COMPARISON: Cervical spine CT 07/22/2021. FINDINGS: No fractures. No subluxation. Prevertebral soft tissues and the C1-C2 interval are intact. No pneumothorax. There is a partially visualized right jugular central venous catheter. IMPRESSION: No fractures within the cervical spine. ACT 112: Negative or not required by law. Electronically signed by: Weston Cisneros M.D. 06/30/2022 2:33 PM Abdomen/Pelvis CT 07/03/22 14:[address] WITH IV CONTRAST CT DOSE: 345.53 mGy.cm HISTORY: Acute right lower quadrant abdominal pain R/O Appendicitis TECHNIQUE: Multiaxial CT images of the abdomen and pelvis were performed following the IV administration of 93 cc of Optiray, A dose lowering technique was utilized adhering to the principles of ALARA. COMPARISON STUDY: CT abdomen and pelvis 06/30/2022 FINDINGS: Trace pleural effusions with dependent bibasilar atelectasis. No pneumatosis or pneumoperitoneum. Spleen is enlarged measuring 13.4 cm in length. Unremarkable pancreas with a few punctate calcifications noted within the uncinate process. The adrenal glands are within normal limits. Contracted gallbladder. Mild marginal nodularity of the liver suggestive of cirrhosis. . Liver is diffusely heterogeneous. No hepatic mass identified. Unremarkable kidneys, uterus and adnexa. Mild nonspecific urinary bladder wall thickening. Aorta and IVC are unremarkable. Abdominal varicosities. There is no lymphadenopathy identified. Distended debris-filled stomach suggestive of recent meal. Small volume of abdominal pelvic ascites with diffuse mesenteric edema is new from prior. Moderate to extensive colonic fecal retention as progressed. Noninflamed appendix. Mild colonic diverticulosis. Mild wall thickening of the cecum and ascending colon is new from the prior study. Tiny fat filled umbilical hernia. The previously questioned subtle fractures of the posterior right ninth and 10th ribs are not appreciated. IMPRESSION: 1. Cirrhosis with splenomegaly and abdominal varicosities compatible with portal venous hypertension redemonstrated. There is new small volume of abdominal pelvic ascites with mesenteric edema. 2. Noninflamed appendix. 3. Wall thickening of the cecum and proximal ascending colon is new from the prior exam and may be secondary to portal colopathy. An infectious or inflammatory colitis could appear similarly. 4. Moderate to extensive fecal retention. 5. Trace pleural effusions. ACT 112: Negative or not required by law. The above report was generated using voice recognition software. It may contain grammatical, syntax or spelling errors. Electronically signed by: Bud Madera M.D. 07/03/2022 4:[address] 07/09/22 09:[address] DOSE: 638.56 mGycm HISTORY: s/p fall, head trauma TECHNIQUE: Multiaxial CT images of the head were performed without the use of intravenous contrast. Automated exposure control was utilized for this study. A dose lowering technique was utilized adhering to the principles of ALARA. Comparison: Head CT 06/30/2022. Findings: The paranasal sinuses and mastoid air cells are clear. The calvarium and skull base are intact. The ventricles and sulci are within normal limits. There is no mass, hematoma, midline shift, or acute infarct. Impression: No acute intracranial abnormality. ACT 112: Negative or not required by law. Electronically signed by: Weston Cisneros M.D. 07/09/2022 10:09 AM Ribs w/Chest X-Ray 07/11/22 16:15 PA CHEST WITH RIGHT-SIDED RIB SERIES CLINICAL HISTORY: Follow-up rib fractures. FINDINGS: A PA chest radiograph with 4 additional views from a right sided rib series is compared to radiographs and chest CT dated 06/30/2022. A right internal jugular central medicine infusion port is unchanged in position. The cardiomediastinal silhouette is unremarkable. The lungs and pleural spaces are clear noting bibasilar atelectasis. No pneumothorax is seen. There is no radiographic evidence of acute/displaced right-sided rib fracture on the rib series. There are chronic/healed left-sided rib fractures. There is thoracolumbar scoliosis. IMPRESSION: 1 No active disease in the chest. 2. There is no radiographic evidence of acute/displaced right-sided rib fracture in the rib series. Subtle fractures questioned by CT are not apparent on x-ray. ACT 112: Negative or not required by law. Electronically signed by: Brodie Gillis M.D. 07/11/2022 4:49 PM Abdomen Ultrasound 07/14/22 10:54 ULTRASOUND ASCITES CHECK CLINICAL HISTORY: Ascites. COMPARISON STUDY: Ultrasound ascites check dated 07/07/2022. FINDINGS: Real-time grayscale sonography of all 4 quadrants of the abdomen is performed to assess for abdominal ascites. No abdominal ascites is identified. The liver is cirrhotic in morphology and appears steatotic. The spleen is enlarged measuring 17.7 cm in length. IMPRESSION: No abdominal ascites is identified. Electronically signed by: Brodie Gillis M.D. 07/14/2022 12:02 PM Medications Administered Current Inpatient Medications Acetaminophen (Acetaminophen 500 Mg Tab) 500 mg PO Q6H PRN PRN Reason: pain/fever Stop: 07/31/22 19:39 Last Admin: 07/16/22 06:27 Dose: 500 mg Albuterol (Albuterol Hfa 8 Gm Inhaler) 2 puffs INH BID PRN PRN Reason: Shortness Of Breath Stop: 07/30/22 17:53 Last Admin: 07/19/22 07:02 Dose: 1 puffs Amphetamine/Dextroamphetamine (Amphetamine Asp/Sulf/Dextramph 5 Mg Tab) 5 mg PO [id number] [facility] Stop: 07/27/22 13:59 Last Admin: 07/19/22 06:27 Dose: 5 mg Ascorbic Acid (Ascorbic Acid 500 Mg Tab) 500 mg PO QAM [facility] Stop: 07/31/22 08:59 Last Admin: 07/19/22 08:48 Dose: 500 mg Baclofen (Baclofen 10 Mg Tab) 5 mg PO BID JUAN Stop: 08/16/22 20:59 Last Admin: 07/19/22 08:48 Dose: 5 mg Bisacodyl (Bisacodyl 5 Mg Tabec) 5 mg PO BID PRN PRN Reason: Constipation Stop: 08/17/22 12:03 Bupropion HCl (Bupropion Sr 150 Mg Tabcr) 150 mg PO DAILY [facility] Stop: 08/13/22 14:29 Last Admin: 07/19/22 08:47 Dose: 150 mg Diclofenac Sodium (Diclofenac Sod 1% Gel 100 Gm Tube) 4 gm EXT TID JUAN; Protocol Stop: 07/31/22 20:59 Last Admin: 07/19/22 08:49 Dose: 4 gm Docusate Sodium (Docusate Sodium 100 Mg Cap) 100 mg PO BID JUAN Stop: 08/17/22 20:59 Last Admin: 07/19/22 08:49 Dose: 100 mg Fluticasone Propionate (Fluticasone Propionate Na Spr 16 Gm Btl) 2 sprays LINETTE BID JUAN Stop: 07/30/22 20:59 Last Admin: 07/19/22 08:44 Dose: 2 sprays Fluticasone/Vilanterol (Fluticasone/Vilanterol 200/25mcg 14 Puffs/Inhaler) 1 puffs INH DAILY JUAN Stop: 07/31/22 08:59 Last Admin: 07/19/22 08:49 Dose: 1 puffs Furosemide (Furosemide 40 Mg Tab) 40 mg PO QAM [facility] Stop: 08/17/22 08:59 Last Admin: 07/18/22 08:37 Dose: 40 mg Heparin Sodium (Porcine) (Heparin 100 Unit/Ml 5ml Flush) 5 ml FLUSH PRN PRN PRN Reason: Flush Stop: 08/01/22 00:52 Last Admin: 07/19/22 10:58 Dose: 5 ml Hydroxyzine HCl (Hydroxyzine Hcl 25 Mg Tab) 25 mg PO TID PRN PRN Reason: Anxiety Stop: 07/30/22 17:53 Last Admin: 07/18/22 21:04 Dose: 25 mg Ipratropium [place] (Ipratropium Hfa Inhaler (Combivent Respimat P&T Subs)) 1 puffs INH BIDR [facility] Stop: 07/30/22 18:59 Last Admin: 07/19/22 07:02 Dose: 1 puffs Ketorolac Tromethamine (Ketorolac Tromethamine 15 Mg/Ml Vial) 15 mg IV Q6H PRN PRN Reason: Moderate Pain (4, 5, 6) Stop: 07/22/22 10:01 Last Admin: 07/19/22 04:36 Dose: 15 mg Lactulose (Lactulose Syrup 20 Gm/30 Ml Udc) 20 gm PO QAM [facility] Stop: 07/31/22 08:59 Last Admin: 07/19/22 08:46 Dose: 20 gm Lidocaine (Lidocaine 5% 1 Patch) 1 patch TD QAM [facility] Stop: 07/30/22 16:29 Last Admin: 07/19/22 08:47 Dose: 1 patch Loratadine (Loratadine 10 Mg Tab) 10 mg PO QAM [facility] Stop: 07/31/22 08:59 Last Admin: 07/19/22 08:46 Dose: 10 mg Magnesium Oxide (Magnesium Oxide 400 Mg Tab) 400 mg PO BID [facility] Stop: 07/30/22 20:59 Last Admin: 07/19/22 10:32 Dose: 400 mg Melatonin (Melatonin 3 Mg Tab) 3 mg PO HS PRN PRN Reason: Sleep Stop: 07/31/22 23:04 Last Admin: 07/18/22 21:04 Dose: 3 mg Miscellaneous (Remove Lidoderm Patch) 1 each N/A DAILY@2100 [facility] Stop: 07/30/22 20:59 Last Admin: 07/18/22 20:03 Dose: 1 each Miscellaneous (Remove Nicoderm Patch) 1 each N/A QAM [facility] Stop: 07/31/22 08:59 Last Admin: 07/19/22 08:50 Dose: 1 each Montelukast Sodium (Montelukast Sodium 10 Mg Tablet) 10 mg PO HS [facility] Stop: 07/30/22 20:59 Last Admin: 07/18/22 20:01 Dose: 10 mg Multivitamins (Multivitamin Tab) 1 tab PO QAM [facility] Stop: 07/31/22 08:59 Last Admin: 07/19/22 08:47 Dose: 1 tab Nicotine (Nicotine 14 Mg/24 Hr Patch) [facility] [place] [facility] [place]: 07/31/22 08:59 Last Admin: 07/19/22 08:46 Dose: 14 mg Nitrofurantoin Macrocrystals (Nitrofurantoin Monohydrate 100 Mg Cap) 100 mg PO BID [facility] Stop: 07/24/22 11:59 Ondansetron HCl (Ondansetron Inj 2 Mg/Ml 2 Ml Vial) 4 mg IV Q6H PRN PRN Reason: Nausea Stop: 07/30/22 19:51 Last Admin: 07/16/22 08:08 Dose: 4 mg Oxycodone HCl (Oxycodone Hcl Ir 5 Mg Tab (Immediate Release)) 5 - 10 mg PO Q8 PRN PRN Reason: Severe Pain (7, 8, 9, 10) Stop: 08/01/22 07:31 Last Admin: 07/19/22 10:31 Dose: 10 mg Pantoprazole Sodium (Pantoprazole 40 Mg Tab) 40 mg PO BID [facility] Stop: 07/31/22 20:59 Last Admin: 07/19/22 08:46 Dose: 40 mg Phenylephrine HCl (Anusol Supp 1 Ea) 1 supp NC Q8 PRN PRN Reason: Hemorrhoids Stop: 08/15/22 15:40 Polyethylene Glycol (Polyethylene (Miralax) 17 Gm Pack) 17 gm PO DAILY PRN PRN Reason: Constipation Stop: 07/30/22 19:51 Potassium Phosphate (Pot Phosphate Monobasic W/ Sod Tab) 2 tab PO QID [facility] Stop: 07/30/22 20:59 Last Admin: 07/19/22 08:46 Dose: 2 tab Sertraline HCl (Sertraline Hcl 50 Mg Tablet) 50 mg PO [facility] Stop: 08/13/22 14:29 Last Admin: 07/19/22 08:48 Dose: 50 mg Spironolactone (Spironolactone 100 Mg Tab) 200 mg PO [facility] Stop: 08/06/22 08:59 Last Admin: 07/18/22 08:31 Dose: 200 mg Thiamine HCl (Thiamine Hcl 100 Mg Tab) 100 mg PO [facility] Stop: 07/31/22 08:59 Last Admin: 07/19/22 08:46 Dose: 100 mg Umeclidinium [place] (Umeclidinium [place] 62.5mcg/Blister 7 Puffs/Inhaler) 1 puffs INH [facility] Stop: 07/31/22 08:59 Last Admin: 07/19/22 08:45 Dose: 1 puffs Vitamin D (Cholecalciferol 1,000 Units 25 Mcg Tab) 2,000 units PO [facility] Stop: 07/31/22 08:59 Last Admin: 07/19/22 08:46 Dose: 2,000 units (1) Cirrhosis Ascites presence: with ascites Hepatic cirrhosis type: alcoholic cirrhosis Qualified Code(s): K70.31 - Alcoholic cirrhosis of liver with ascites
[2022-07-19] MEDS: NITROFURANTOIN MONOHYDRATE 100 MG CAP PO SCH ×2 (12:38→20:46)
[2022-07-19] MEDS: MONTELUKAST SODIUM 10 MG TABLET PO SCH (20:42)
--- NOTE | 2022-07-19 21:55 | Electrocardiogram Report ---
Test Reason : Blood Pressure : / mmHG Vent. 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
[2022-07-19] MEDS ORDERED: oxyCODONE HCL IR 5 MG TAB (IMMEDIATE RELEASE) PO STA (22:53)
[2022-07-19] MEDS: ONDANSETRON INJ 2 MG/ML 2 ML VIAL IV PRN (23:14)
[2022-07-19] MEDS: hydrOXYzine HCl 25 MG TAB PO PRN (23:22)
[2022-07-20] MEDS: oxyCODONE HCL IR 5 MG TAB (IMMEDIATE RELEASE) PO PRN ×4 (02:22→22:26)
[2022-07-20] MEDS: AMPHETAMINE ASP/SULF/DEXTRAMPH 5 MG TAB PO SCH ×3 (06:00→14:35)
[2022-07-20] MEDS: Ipratropium HFA Inhaler (Combivent Respimat P&T Subs) INH SCH ×2 (07:30→19:16)
[2022-07-20] MEDS: ALBUTEROL HFA 8 GM INHALER INH PRN ×2 (07:30→19:16)
[2022-07-20] MEDS: POT PHOSPHATE MONOBASIC W/ SOD TAB PO SCH ×5 (07:39→22:13)
[2022-07-20 07:46] LABS: Basophils # (auto) 0.01 K/uL (0-0.2); Basophils % (auto) 0.3 %; Eosinophils # (auto) 0.08 K/uL (0-0.50); Hematocrit (blood only) 22.9 % (34.1-44.9); Hemoglobin 7.7 g/dl (12.0-16.0); Immature Granulocytes # (auto) 0.01 K/uL (0.00-0.02); Immature Granulocytes % (auto) 0.3 %; Lymphocytes % (auto) 22.6 %; Mean Platelet Volume 9.3 fL (9.4-12.3); Monocytes # (auto) 0.37 K/uL (0.24-0.82); Monocytes % (auto) 9.3 %; Neutrophils # (auto) 2.61 K/uL (1.4-6.5); Neutrophils % (auto) 65.5 %; Platelet Count 103 K/uL (130-400); White Blood Count 3.98 K/ul (4.8-10.8)
[2022-07-20 08:07] LABS: INR 1.2 (0.9-1.1)
[2022-07-20] MEDS: FLUTICASONE PROPIONATE NA SPR 16 GM BTL NAE SCH ×2 (08:21→22:18)
[2022-07-20] MEDS: UMECLIDINIUM BROMIDE 62.5MCG/BLISTER 7 PUFFS/INHALER INH SCH (08:22)
[2022-07-20] MEDS: FLUTICASONE/VILANTEROL 200/25MCG 14 PUFFS/INHALER INH SCH (08:22)
[2022-07-20] MEDS: DICLOFENAC SOD 1% GEL 100 GM TUBE EXT SCH ×3 (08:22→22:17)
[2022-07-20] MEDS: NICOTINE 14 MG/24 HR PATCH TD SCH (08:23)
[2022-07-20] MEDS: LIDOCAINE 5% 1 PATCH TD SCH (08:23)
[2022-07-20] MEDS: NITROFURANTOIN MONOHYDRATE 100 MG CAP PO SCH ×2 (08:25→22:15)
[2022-07-20] MEDS: PANTOprazole 40 MG TAB PO SCH ×2 (08:25→22:15)
[2022-07-20] MEDS: ASCORBIC ACID 500 MG TAB PO SCH (08:25)
[2022-07-20] MEDS: buPROPion SR 150 MG TABCR PO SCH (08:26)
[2022-07-20] MEDS: THIAMINE HCL 100 MG TAB PO SCH (08:26)
[2022-07-20] MEDS: BACLOFEN 10 MG TAB PO SCH ×2 (08:26→22:16)
[2022-07-20] MEDS: LORATADINE 10 MG TAB PO SCH (08:26)
[2022-07-20] MEDS: SERTRALINE HCL 50 MG TABLET PO SCH (08:26)
[2022-07-20] MEDS: MAGNESIUM OXIDE 400 MG TAB PO SCH ×2 (08:27→22:14)
[2022-07-20] MEDS: MULTIVITAMIN TAB PO SCH (08:27)
[2022-07-20] MEDS: CHOLECALCIFEROL 1,000 UNITS 25 MCG TAB PO SCH (08:27)
[2022-07-20] MEDS: DOCUSATE SODIUM 100 MG CAP PO SCH ×2 (08:27→22:15)
[2022-07-20] MEDS: LACTULOSE SYRUP 20 GM/30 ML UDC PO SCH (08:27)
[2022-07-20 08:30] LABS: Mean Corpuscular Hemoglobin 29.6 pg (25.0-34.0); Mean Corpuscular Hgb Conc 33.6 g/dL (32.0-36.0); Mean Corpuscular Volume 88.1 fL (80.0-100.0); RBC Morphology Unremarkable; RDW Coefficient of Variation 18.6 % (11.5-14.5); RDW Standard Deviation 58.9 fL (36.4-46.3)
[2022-07-20 08:48] LABS: Albumin Globulin Ratio 1.4 (0.9-2); Albumin Level 3.4 gm/dl (3.4-5.0); BUN Creatinine Ratio 10.6 (10-20); Bilirubin,Total 1.7 mg/dl (0.2-1.0); Calcium 9.1 mg/dl (8.5-10.1); Creatinine Clr Calc Pharmacy 44.6 ml/min; Est GFR (African American) 51.4 ml/min; Est GFR (Non-African American) 44.3 ml/min; Globulin 2.5 gm/dl (2.5-4.0); Magnesium 1.9 mg/dl (1.7-2.4); Potassium 3.9 mmol/L (3.5-5.1); Total Protein 5.9 gm/dl (6.0-8.3)
[2022-07-20] MEDS ORDERED: LACTATED RINGER'S 500 ML IV ONE (09:44)
[2022-07-20] MEDS: hydrOXYzine HCl 25 MG TAB PO PRN (10:10)
--- NOTE | 2022-07-20 12:19 | Hospitalist Progress Note ---
Date of Service July 20, 2022 Assessment & Plan (1) Fall: Plan: - s/p fall in shower in setting of possible ETOH intoxication - Head CT, cervical spine, thoracic, lumbar, abd/pelvis, chest CTs performed - evidence of acute nondisplaced fractures involving the posterior medial aspects of the right ninth and 10th ribs. Otherwise no traumatic injuries noted - Has not used IV Dilaudid for the past 3 days now - gabapentin tapered off - Continue baclofen as this is helping as per patient - will slowly tape - holding Toradol due to VAN - continue Voltaren gel - oxycodone back to q8 due to VAN and stopping toradol (2) VAN (acute kidney injury): Plan: - possibly in the setting of NSAID use with toradol - will stop toradol - IVF - trend Cr - avoid further nephrotoxic medications - Cr improving (3) Hemoptysis: Plan: - unclear if true hemoptysis as patient did not have coughing or regurgitation prior to blood in spit - no obvious lesions noted in oral cavity - denies melena - hgb stable - vitals stable - will monitor for now - INR stable at 1.2 - no more episodes of hemoptysis (4) Closed rib fracture: Plan: - noted - continue IS (5) Alcohol use disorder: Plan: - patient recently relapsed - stressed importance of abstinence - would like to follow up outpatient rehab programs (6) Generalized anxiety disorder: Plan: - noted, continue home meds (7) Cirrhosis: Plan: - Patient with history of cirrhosis, following with [facility] - Left 2-month inpatient alcohol treatment facility 4 days [facility] and resumed drinking the day before arrival - 07/14/2022 - Abdominal ultrasound: No ascites - restarted lasix and aldactone now that VAN resolved - Hematochezia reported overnight, 07/15/2022 - s/p for EGD, colonoscopy 07/16/2022 with possible source of bleeding found to have hemorrhoid - hgb stable - Bowel regimen for hemorrhoid (8) Depression: Plan: - Patient reports that she has been taking Zoloft and Wellbutrin prior to admission - Zoloft and Wellbutrin restarted 07/14 - monitor qtc on ECG (9) Asthma: Plan: - continue inhalers Plan DVT Ppx: SCDs - Encouraged to ambulate frequently, patient verbalized understanding Code status: FULL PCP: Ritu Dispo: telemetry Shola Friend MD [facility] Medicine Admission and Anticipated Discharge Date Admission Date: June 30, 2022 Subjective Patient with ETOH cirrhosis with ascites, alcohol use disorder, depression, anxiety who presented after fall in shower with possible ETOH intoxication at that time. Being managed for pain control, weaned off opioids, started on gabapentin and baclofen per pain management. Course complicated by VAN, improved with IVF. Had episode of hematochezia, now s/p EGD and colonoscopy with mild portal hypertensive gastropathy and no source of bleeding on EGD, and polyp and hemorrhoid on colonoscopy. Tolerating regular diet. Patient complains of pain on right flank/shoulder area but having some improvement. Denies n/v/. Denies chest pain, shortness of breath, diarrhea. Review of Systems Review of Systems: all noted and negative except for above Physical Exam Physical Exam: General- oriented x 3, not in distress, speaks in sentences with no effort or accessory muscle use Eyes- anicteric Neck- no JVD Lungs- clear breath sounds bilaterally, no crackles Heart- normal rate, regular rhythm; no murmurs Abdomen- normal bowel sounds, not distended, soft, no tenderness Extremities- no pretibial edema, no calf tenderness Neuro- alert, oriented x 3; no gross focal neurologic deficits Skin- warm & dry Results & Data Results & Data ([facility]) Vital Signs (Past 12 Hours) Vital Signs Temp Pulse Resp BP Pulse Ox O2 Del Method 07/20/22 07:31 76 16 93 Room Air 07/20/22 07:28 36.4 C L 76 16 105/66 93 Room Air Diagnostic Findings Laboratory Results WBC 3.98 K/ul (4.8-10.8) L 07/20/22 07:31 RBC 2.60 M/uL (3.93-5.22) L 07/20/22 07:31 Hgb 7.7 g/dl (12.0-16.0) L 07/20/22 07:31 Hct 22.9 % (34.1-44.9) L 07/20/22 07:31 MCV 88.1 fL (80.0-100.0) 07/20/22 07:31 MCH 29.6 pg (25.0-34.0) 07/20/22 07:31 MCHC 33.6 g/dL (32.0-36.0) 07/20/22 07:31 RDW Std Deviation 58.9 fL (36.4-46.3) H 07/20/22 07: RDW Coeff of Yasmine 18.6 % (11.5-14.5) H 07/20/22 07:31 Plt Count 103 K/uL (130-400) L 07/20/22 07:31 MPV 9.3 fL (9.4-12.3) L 07/20/22 07:31 Immature Gran % (Auto) 0.3 % 07/20/22 07:31 Neut % (Auto) 65.5 % 07/20/22 07:31 Lymph % (Auto) 22.6 % 07/20/22 07: [place] % (Auto) 9.3 % 07/20/22 07:31 Eos % (Auto) 2.0 % 07/20/22 07:31 Baso % (Auto) 0.3 % 07/20/22 07:31 Neut # (Auto) 2.61 K/uL (1.4-6.5) 07/20/22 07:31 Lymph # (Auto) 0.90 K/uL (1.2-3.4) L 07/20/22 07:31 [place] # (Auto) 0.37 K/uL (0.24-0.82) 07/20/22 07:31 Eos # (Auto) 0.08 K/uL (0-0.50) 07/20/22 07:31 Baso # (Auto) 0.01 K/uL (0-0.2) 07/20/22 07:31 Immature Gran # (Auto) 0.01 K/uL (0.00-0.02) 07/20/22 07:31 RBC Morphology Unremarkable 07/20/22 07:31 Polychromasia 1+ 07/07/22 06:34 Poikilocytosis Present 07/17/22 05:36 Target Cells 1+ 07/09/22 06:44 PT 13.0 Seconds (9.0-12.0) H 07/20/22 07:31 INR 1.2 (0.9-1.1) H 07/20/22 07:31 APTT 32.0 Seconds (21.0-31.0) H 06/30/22 12:26 PTT Ratio 1.2 06/30/22 12:26 Sodium 140 mmol/L (136-145) 07/20/22 07:31 Potassium 3.9 mmol/L (3.5-5.1) 07/20/22 07:31 Chloride 107 mmol/L (98-107) 07/20/22 07:31 Carbon Dioxide 25 mmol/L (21-32) 07/20/22 07:31 Anion Gap 8 (3-11) 07/20/22 07:31 BUN 16 mg/dl (6-23) 07/20/22 07:31 Creatinine 1.51 mg/dl (0.6-1.2) H 07/20/22 07:31 Est Cr Clr Drug Dosing 44.6 ml/min 07/20/22 07:31 Est GFR ( Amer) 51.4 ml/min 07/20/22 07:31 Est GFR (Non-Af Amer) 44.3 ml/min 07/20/22 07:31 BUN/Creatinine Ratio 10.6 (10-20) 07/20/22 07:31 Glucose 85 mg/dl (70-99(Fasting)) 07/20/22 07:31 POC Glucose 71 mg/dl (70-99) 07/02/22 07:38 Calcium 9.1 mg/dl (8.5-10.1) 07/20/22 07:31 Phosphorus 6.0 mg/dl (2.5-4.9) H 07/20/22 07:31 Magnesium 1.9 mg/dl (1.7-2.4) 07/20/22 07:31 Total Bilirubin 1.7 mg/dl (0.2-1.0) H 07/20/22 07:31 Direct Bilirubin 0.7 mg/dl (0-0.2) H 07/14/22 10:54 AST 24 U/L (13-39) 07/20/22 07:31 ALT 16 U/L (7-52) 07/20/22 07:31 Alkaline Phosphatase 94 U/L (34-104) 07/20/22 07:31 Ammonia 52.0 umol/L (18-72) 07/02/22 05:48 Troponin I High Sens 5.1 pg/ml (0-14) D 06/30/22 12:26 Total Protein 5.9 gm/dl (6.0-8.3) L 07/20/22 07:31 Albumin 3.4 gm/dl (3.4-5.0) 07/20/22 07:31 Globulin 2.5 gm/dl (2.5-4.0) 07/20/22 07:31 Albumin/Globulin Ratio 1.4 (0.9-2) 07/20/22 07:31 Lipase 16 U/L (11-82) 06/30/22 12:26 Urine Color Yellow 07/18/22 13:40 Urine Appearance Clear (Clear) 07/18/22 13:40 Urine pH 7.0 (4.5-7.5) 07/18/22 13:40 Ur Specific [place] 1.013 (1.000-1.030) 07/18/22 13:40 Urine Protein Negative (Negative) 07/18/22 13:40 Urine Glucose (UA) Negative (Negative) 07/18/22 13:40 Urine Ketones Negative (Negative) 07/18/22 13:40 Urine Blood Negative (Negative) 07/18/22 13:40 Urine Nitrite Negative (Negative) 07/18/22 13:40 Urine Bilirubin Negative (Negative) 07/18/22 13:40 Urine Urobilinogen Negative (Negative) 07/18/22 13:40 Ur Leukocyte Esterase Negative (Negative) 07/18/22 13:40 Ur Random Creatinine 62.2 mg/dl 07/19/22 09:00 Ur Random Sodium 124 mmol/L 07/19/22 09:00 POC Ur Test Cancelled 07/01/22 18:52 Urine Opiates Screen Pos (Neg) H 06/30/22 17:00 U Codeine Confrm GC/MS NEGATIVE ng/mL (<50) 06/30/22 17:00 Ur Morphine (GC/MS) 465 ng/mL (<50) H 06/30/22 17:00 Ur Hydrocodone (GC/MS) NEGATIVE ng/mL (<50) 06/30/22 17:00 Ur Norhydrocodone NEGATIVE ng/mL (<50) 06/30/22 17:00 Ur Noroxycodone NEGATIVE ng/mL (<50) 06/30/22 17:00 Urine Oxycodone (GC/MS) NEGATIVE ng/mL (<50) 06/30/22 17:00 U Oxymorphone GC/MS NEGATIVE ng/mL (<50) 06/30/22 17:00 Ur Methadone, Qual Neg (Neg) 06/30/22 17:00 Ur Hydromorphone (GC/MS) NEGATIVE ng/mL (<50) 06/30/22 17:00 Urine Barbiturates Neg (Neg) 06/30/22 17:00 Ur Phencyclidine (PCP) Neg (Neg) 06/30/22 17:00 U Amphetamin/Meth Scrn Neg (Neg) 06/30/22 17:00 Urine MDEA negative 06/30/22 17:00 MDMA (Ecstasy) Screen Pos (Neg) H 06/30/22 17:00 MDMA negative 06/30/22 17:00 Urine MDMA negative 06/30/22 17:00 U Benzodiazepines Scrn Neg (Neg) 06/30/22 17:00 Ur Cocaine Metabolite Neg (Neg) 06/30/22 17:00 U Marijuana (THC) Screen Neg (Neg) 06/30/22 17:00 Drug Screen Comment SEE NOTE 06/30/22 17:00 Ethyl Alcohol mg/dL 252.9 mg/dl (<10.0) H 06/30/22 12:26 SARS-CoV-2, RNA, NAAT NEGATIVE (NEGATIVE) 06/30/22 15:30 Blood Type O Positive 07/14/22 22:43 Antibody Screen NEGATIVE 07/14/22 22:[address] 06/30/22 13:14 CT chest diagnostic wo con, CT thoracic spine wo con, CT lumbar spine wo con, CT abd pelvis wo con CLINICAL HISTORY: 37 years-old Female with trauma. Acute chest and abdominal trauma status post fall TECHNIQUE: Multiaxial CT images of the chest, abdomen and pelvis, CT and thoracic spine were performed without contrast. A dose lowering technique was utilized adhering to the principles of ALARA. COMPARISON: Chest CT 07/13/21, CT abdomen 04/15/22. FINDINGS: CT CHEST: The lungs are clear. The mediastinal vascular structures are within normal limits. Right IJ Gsacvy-s-Bxhk catheter distal tip terminates within the mid SVC. No mediastinal or hilar lymphadenopathy. No pleural effusion or pneumothorax. Mild sigmoidal scoliosis of the thoracic spine. No acute fracture identified. CT ABDOMEN/PELVIS: No pneumatosis or pneumoperitoneum. Spleen is enlarged measuring 13.4 cm in length. Unremarkable pancreas with a few punctate calcifications noted within the uncinate process. The adrenal glands are within normal limits. Punctate calcification within the jessica hepatis may represent an adherent gallstone. Mild marginal nodularity of the liver suggestive of cirrhosis. No hepatic mass identified. Unremarkable kidneys, urinary bladder, uterus and adnexa. Aorta and IVC are unremarkable. Abdominal varicosities. There is no lymphadenopathy identified. No bowel obstruction or bowel wall thickening. Moderate fecal retention. Noninflamed appendix. No ascites or mesenteric inflammation. Tiny fat filled umbilical hernia. No acute fracture identified. CT THORACIC SPINE: Upper thoracic levoscoliosis. Mild multilevel spondylitic spurring and facet arthrosis. The intervertebral disc spaces are generally well maintained. Equivocal acute nondisplaced fracture involves the posterior medial aspect of the right ninth and 10th ribs. (Please see image 186 of series 10 and image 21 of the sagittal series. No acute vertebral body fracture identified. CT LUMBAR SPINE: Mild lumbar levoscoliosis. Mild to moderate multilevel facet arthrosis. No acute fracture, subluxation or endplate erosion. The imaged sacrum and iliac bones appear intact. Healed chronic fracture of the right inferior L5 articular facet. IMPRESSION: 1. Suggestion of subtle acute nondisplaced fractures involving the posterior medial aspects of the right ninth and 10th ribs. Correlate with point tenderness. 2. No pneumothorax. 3. No acute posttraumatic intrathoracic, intra-abdominal or intrapelvic abnormality 4. Cirrhosis with splenomegaly and abdominal varicosities compatible with portal venous hypertension. ACT 112: Negative or not required by law. Electronically signed by: Bud Madera M.D. 06/30/2022 3:[address] 06/30/22 13:22 CT chest diagnostic wo con, CT thoracic spine wo con, CT lumbar spine wo con, CT abd pelvis wo con CLINICAL HISTORY: 37 years-old Female with trauma. Acute chest and abdominal trauma status post fall TECHNIQUE: Multiaxial CT images of the chest, abdomen and pelvis, CT and thoracic spine were performed without contrast. A dose lowering technique was utilized adhering to the principles of ALARA. COMPARISON: Chest CT 07/13/21, CT abdomen 04/15/22. FINDINGS: CT CHEST: The lungs are clear. The mediastinal vascular structures are within normal limits. Right IJ Wjxnmg-i-Xniq catheter distal tip terminates within the mid SVC. No mediastinal or hilar lymphadenopathy. No pleural effusion or pneumothorax. Mild sigmoidal scoliosis of the thoracic spine. No acute fracture identified. CT ABDOMEN/PELVIS: No pneumatosis or pneumoperitoneum. Spleen is enlarged measuring 13.4 cm in length. Unremarkable pancreas with a few punctate calcifications noted within the uncinate process. The adrenal glands are within normal limits. Punctate calcification within the jessica hepatis may represent an adherent gallstone. Mild marginal nodularity of the liver suggestive of cirrhosis. No hepatic mass identified. Unremarkable kidneys, urinary bladder, uterus and adnexa. Aorta and IVC are unremarkable. Abdominal varicosities. There is no lymphadenopathy identified. No bowel obstruction or bowel wall thickening. Moderate fecal retention. Noninflamed appendix. No ascites or mesenteric inflammation. Tiny fat filled umbilical hernia. No acute fracture identified. CT THORACIC SPINE: Upper thoracic levoscoliosis. Mild multilevel spondylitic spurring and facet arthrosis. The intervertebral disc spaces are generally well maintained. Equivocal acute nondisplaced fracture involves the posterior medial aspect of the right ninth and 10th ribs. (Please see image 186 of series 10 and image 21 of the sagittal series. No acute vertebral body fracture identified. CT LUMBAR SPINE: Mild lumbar levoscoliosis. Mild to moderate multilevel facet arthrosis. No acute fracture, subluxation or endplate erosion. The imaged sacrum and iliac bones appear intact. Healed chronic fracture of the right inferior L5 articular facet. IMPRESSION: 1. Suggestion of subtle acute nondisplaced fractures involving the posterior medial aspects of the right ninth and 10th ribs. Correlate with point tenderness. 2. No pneumothorax. 3. No acute posttraumatic intrathoracic, intra-abdominal or intrapelvic abnormality 4. Cirrhosis with splenomegaly and abdominal varicosities compatible with portal venous hypertension. ACT 112: Negative or not required by law. Electronically signed by: Bud Madera M.D. 06/30/2022 3:[address] 06/30/22 13:22 CT chest diagnostic wo con, CT thoracic spine wo con, CT lumbar spine wo con, CT abd pelvis wo con CLINICAL HISTORY: 37 years-old Female with trauma. Acute chest and abdominal trauma status post fall TECHNIQUE: Multiaxial CT images of the chest, abdomen and pelvis, CT and thoracic spine were performed without contrast. A dose lowering technique was utilized adhering to the principles of ALARA. COMPARISON: Chest CT 07/13/21, CT abdomen 04/15/22. FINDINGS: CT CHEST: The lungs are clear. The mediastinal vascular structures are within normal limits. Right IJ Uwikod-x-Ersb catheter distal tip terminates within the mid SV C. No mediastinal or hilar lymphadenopathy. No pleural effusion or pneumothorax. Mild sigmoidal scoliosis of the thoracic spine. No acute fracture identified. CT ABDOMEN/PELVIS: No pneumatosis or pneumoperitoneum. Spleen is enlarged measuring 13.4 cm in length. Unremarkable pancreas with a few punctate calcifications noted within the uncinate process. The adrenal glands are within normal limits. Punctate calcification within the jessica hepatis may represent an adherent gallstone. Mild marginal nodularity of the liver suggestive of cirrhosis. No hepatic mass identified. Unremarkable kidneys, urinary bladder, uterus and adnexa. Aorta and IVC are unremarkable. Abdominal varicosities. There is no lymphadenopathy identified. No bowel obstruction or bowel wall thickening. Moderate fecal retention. Noninflamed appendix. No ascites or mesenteric inflammation. Tiny fat filled umbilical hernia. No acute fracture identified. CT THORACIC SPINE: Upper thoracic levoscoliosis. Mild multilevel spondylitic spurring and facet arthrosis. The intervertebral disc spaces are generally well maintained. Equivocal acute nondisplaced fracture involves the posterior medial aspect of the right ninth and 10th ribs. (Please see image 186 of series 10 and image 21 of the sagittal series. No acute vertebral body fracture identified. CT LUMBAR SPINE: Mild lumbar levoscoliosis. Mild to moderate multilevel facet arthrosis. No acute fracture, subluxation or endplate erosion. The imaged sacrum and iliac bones appear intact. Healed chronic fracture of the right inferior L5 articular facet. IMPRESSION: 1. Suggestion of subtle acute nondisplaced fractures involving the posterior medial aspects of the right ninth and 10th ribs. Correlate with point tenderness. 2. No pneumothorax. 3. No acute posttraumatic intrathoracic, intra-abdominal or intrapelvic abnormality 4. Cirrhosis with splenomegaly and abdominal varicosities compatible with portal venous hypertension. ACT 112: Negative or not required by law. Electronically signed by: Bud Madera M.D. 06/30/2022 3:[address] 06/30/22 13:[address] DOSE: 959.53 mGy.cm HISTORY: fall TECHNIQUE: Multiaxial CT images of the cervical spine were performed and reformatted in the sagittal and coronal plane without the use of contrast. A dose lowering technique was utilized adhering to the principles of ALARA. COMPARISON: Cervical spine CT 07/22/2021. FINDINGS: No fractures. No subluxation. Prevertebral soft tissues and the C1-C2 interval are intact. No pneumothorax. There is a partially visualized right jugular central venous catheter. IMPRESSION: No fractures within the cervical spine. ACT 112: Negative or not required by law. Electronically signed by: Weston Cisneros M.D. 06/30/2022 2:33 PM Abdomen/Pelvis CT 07/03/22 14:[address] WITH IV CONTRAST CT DOSE: 345.53 mGy.cm HISTORY: Acute right lower quadrant abdominal pain R/O Appendicitis TECHNIQUE: Multiaxial CT images of the abdomen and pelvis were performed following the IV administration of 93 cc of Optiray, A dose lowering technique was utilized adhering to the principles of ALARA. COMPARISON STUDY: CT abdomen and pelvis 06/30/2022 FINDINGS: Trace pleural effusions with dependent bibasilar atelectasis. No pneumatosis or pneumoperitoneum. Spleen is enlarged measuring 13.4 cm in length. Unremarkable pancreas with a few punctate calcifications noted within the uncinate process. The adrenal glands are within normal limits. Contracted gallbladder. Mild marginal nodularity of the liver suggestive of cirrhosis. . Liver is diffusely heterogeneous. No hepatic mass identified. Unremarkable kidneys, uterus and adnexa. Mild nonspecific urinary bladder wall thickening. Aorta and IVC are unremarkable. Abdominal varicosities. There is no lymphadenopathy identified. Distended debris-filled stomach suggestive of recent meal. Small volume of abdominal pelvic ascites with diffuse mesenteric edema is new from prior. Moderate to extensive colonic fecal retention as progressed. Noninflamed appendix. Mild colonic diverticulosis. Mild wall thickening of the cecum and ascending colon is new from the prior study. Tiny fat filled umbilical hernia. The previously questioned subtle fractures of the posterior right ninth and 10th ribs are not appreciated. IMPRESSION: 1. Cirrhosis with splenomegaly and abdominal varicosities compatible with portal venous hypertension redemonstrated. There is new small volume of abdominal pelvic ascites with mesenteric edema. 2. Noninflamed appendix. 3. Wall thickening of the cecum and proximal ascending colon is new from the prior exam and may be secondary to portal colopathy. An infectious or inflammatory colitis could appear similarly. 4. Moderate to extensive fecal retention. 5. Trace pleural effusions. ACT 112: Negative or not required by law. The above report was generated using voice recognition software. It may contain grammatical, syntax or spelling errors. Electronically signed by: Bud Madera M.D. 07/03/2022 4:[address] 07/09/22 09:[address] DOSE: 638.56 mGycm HISTORY: s/p fall, head trauma TECHNIQUE: Multiaxial CT images of the head were performed without the use of intravenous contrast. Automated exposure control was utilized for this study. A dose lowering technique was utilized adhering to the principles of ALARA. Comparison: Head CT 06/30/2022. Findings: The paranasal sinuses and mastoid air cells are clear. The calvarium and skull base are intact. The ventricles and sulci are within normal limits. There is no mass, hematoma, midline shift, or acute infarct. Impression: No acute intracranial abnormality. ACT 112: Negative or not required by law. Electronically signed by: Weston Cisneros M.D. 07/09/2022 10:09 AM Ribs w/Chest X-Ray 07/11/22 16:15 PA CHEST WITH RIGHT-SIDED RIB SERIES CLINICAL HISTORY: Follow-up rib fractures. FINDINGS: A PA chest radiograph with 4 additional views from a right sided rib series is compared to radiographs and chest CT dated 06/30/2022. A right internal jugular central medicine infusion port is unchanged in position. The cardiomediastinal silhouette is unremarkable. The lungs and pleural spaces are clear noting bibasilar atelectasis. No pneumothorax is seen. There is no radiographic evidence of acute/displaced right-sided rib fracture on the rib series. There are chronic/healed left-sided rib fractures. There is thoracolumbar scoliosis. IMPRESSION: 1 No active disease in the chest. 2. There is no radiographic evidence of acute/displaced right-sided rib fracture in the rib series. Subtle fractures questioned by CT are not apparent on x-ray. ACT 112: Negative or not required by law. Electronically signed by: Brodie Gillis M.D. 07/11/2022 4:49 PM Abdomen Ultrasound 07/14/22 10:54 ULTRASOUND ASCITES CHECK CLINICAL HISTORY: Ascites. COMPARISON STUDY: Ultrasound ascites check dated 07/07/2022. FINDINGS: Real-time grayscale sonography of all 4 quadrants of the abdomen is performed to assess for abdominal ascites. No abdominal ascites is identified. The liver is cirrhotic in morphology and appears steatotic. The spleen is enlarged measuring 17.7 cm in length. IMPRESSION: No abdominal ascites is identified. Electronically signed by: Brodie Gillis M.D. 07/14/2022 12:02 PM Medications Administered Current Inpatient Medications Acetaminophen (Acetaminophen 500 Mg Tab) 500 mg PO Q6H PRN PRN Reason: pain/fever Stop: 07/31/22 19:39 Last Admin: 07/16/22 06:27 Dose: 500 mg Albuterol (Albuterol Hfa 8 Gm Inhaler) 2 puffs INH BID PRN PRN Reason: Shortness Of Breath Stop: 07/30/22 17:53 Last Admin: 07/20/22 07:30 Dose: 1 puffs Amphetamine/Dextroamphetamine (Amphetamine Asp/Sulf/Dextramph 5 Mg Tab) 5 mg PO [id number] [facility] Stop: 07/27/22 13:59 Last Admin: 07/20/22 06:00 Dose: 5 mg Ascorbic Acid (Ascorbic Acid 500 Mg Tab) 500 mg PO QAM JUAN Stop: 07/31/22 08:59 Last Admin: 07/20/22 08:25 Dose: 500 mg Baclofen (Baclofen 10 Mg Tab) 5 mg PO BID JUAN Stop: 08/16/22 20:59 Last Admin: 07/20/22 08:26 Dose: 5 mg Bisacodyl (Bisacodyl 5 Mg Tabec) 5 mg PO BID PRN PRN Reason: Constipation Stop: 08/17/22 12:03 Bupropion HCl (Bupropion Sr 150 Mg Tabcr) 150 mg PO DAILY [facility] Stop: 08/13/22 14:29 Last Admin: 07/20/22 08:26 Dose: 150 mg Diclofenac Sodium (Diclofenac Sod 1% Gel 100 Gm Tube) 4 gm EXT TID [facility]; Protocol Stop: 07/31/22 20:59 Last Admin: 07/20/22 08:22 Dose: 4 gm Docusate Sodium (Docusate Sodium 100 Mg Cap) 100 mg PO BID JUAN Stop: 08/17/22 20:59 Last Admin: 07/20/22 08:27 Dose: 100 mg Fluticasone Propionate (Fluticasone Propionate Na Spr 16 Gm Btl) 2 sprays LINETTE BID JUAN Stop: 07/30/22 20:59 Last Admin: 07/20/22 08:21 Dose: 2 sprays Fluticasone/Vilanterol (Fluticasone/Vilanterol 200/25mcg 14 Puffs/Inhaler) 1 puffs INH DAILY JUAN Stop: 07/31/22 08:59 Last Admin: 07/20/22 08:22 Dose: 1 puffs Furosemide (Furosemide 40 Mg Tab) 40 mg PO QAM [facility] Stop: 08/17/22 08:59 Last Admin: 07/18/22 08:37 Dose: 40 mg Heparin Sodium (Porcine) (Heparin 100 Unit/Ml 5ml Flush) 5 ml FLUSH PRN PRN PRN Reason: Flush Stop: 08/01/22 00:52 Last Admin: 07/19/22 23:19 Dose: 5 ml Hydroxyzine HCl (Hydroxyzine Hcl 25 Mg Tab) 25 mg PO TID PRN PRN Reason: Anxiety Stop: 07/30/22 17:53 Last Admin: 07/20/22 10:10 Dose: 25 mg Lactated Ringer's (Lr) 500 mls @ 125 mls/hr IV .Q4H ONE Stop: 07/20/22 13:43 Last Admin: 07/20/22 10:03 Dose: 125 mls/hr Ipratropium [place] (Ipratropium Hfa Inhaler (Combivent Respimat P&T Subs)) 1 puffs INH BIDR [facility] Stop: 07/30/22 18:59 Last Admin: 07/20/22 07:30 Dose: 1 puffs Ketorolac Tromethamine (Ketorolac Tromethamine 15 Mg/Ml Vial) 15 mg IV Q6H PRN PRN Reason: Moderate Pain (4, 5, 6) Stop: 07/22/22 10:01 Last Admin: 07/19/22 04:36 Dose: 15 mg Lactulose (Lactulose Syrup 20 Gm/30 Ml Udc) 20 gm PO QAM [facility] Stop: 07/31/22 08:59 Last Admin: 07/20/22 08:27 Dose: 20 gm Lidocaine (Lidocaine 5% 1 Patch) 1 patch TD QAM [facility] Stop: 07/30/22 16:29 Last Admin: 07/20/22 08:23 Dose: 1 patch Loratadine (Loratadine 10 Mg Tab) 10 mg PO QAM [facility] Stop: 07/31/22 08:59 Last Admin: 07/20/22 08:26 Dose: 10 mg Magnesium Oxide (Magnesium Oxide 400 Mg Tab) 400 mg PO BID [facility] Stop: 07/30/22 20:59 Last Admin: 07/20/22 08:27 Dose: 400 mg Melatonin (Melatonin 3 Mg Tab) 3 mg PO HS PRN PRN Reason: Sleep Stop: 07/31/22 23:04 Last Admin: 07/18/22 21:04 Dose: 3 mg Miscellaneous (Remove Lidoderm Patch) 1 each N/A DAILY@2100 [facility] Stop: 07/30/22 20:59 Last Admin: 07/19/22 20:45 Dose: 1 each Miscellaneous (Remove Nicoderm Patch) 1 each N/A QAM [facility] Stop: 07/31/22 08:59 Last Admin: 07/20/22 08:23 Dose: 1 each Montelukast Sodium (Montelukast Sodium 10 Mg Tablet) 10 mg PO HS [facility] Stop: 07/30/22 20:59 Last Admin: 07/19/22 20:42 Dose: 10 mg Multivitamins (Multivitamin Tab) 1 tab PO QAM [facility] Stop: 07/31/22 08:59 Last Admin: 07/20/22 08:27 Dose: 1 tab Nicotine (Nicotine 14 Mg/24 Hr Patch) 14 mg TD QAM [facility] Stop: 07/31/22 08:59 Last Admin: 07/20/22 08:23 Dose: 14 mg Nitrofurantoin Macrocrystals (Nitrofurantoin Monohydrate 100 Mg Cap) 100 mg PO BID [facility] Stop: 07/24/22 11:59 Last Admin: 07/20/22 08:25 Dose: 100 mg Ondansetron HCl (Ondansetron Inj 2 Mg/Ml 2 Ml Vial) 4 mg IV Q6H PRN PRN Reason: Nausea Stop: 07/30/22 19:51 Last Admin: 07/19/22 23:14 Dose: 4 mg Oxycodone HCl (Oxycodone Hcl Ir 5 Mg Tab (Immediate Release)) 5 - 10 mg PO Q8 PRN PRN Reason: Severe Pain (7, 8, 9, 10) Stop: 08/01/22 07:31 Last Admin: 07/20/22 10:04 Dose: 10 mg Pantoprazole Sodium (Pantoprazole 40 Mg Tab) 40 mg PO BID [facility] Stop: 07/31/22 20:59 Last Admin: 07/20/22 08:25 Dose: 40 mg Phenylephrine HCl (Anusol Supp 1 Ea) 1 supp AR Q8 PRN PRN Reason: Hemorrhoids Stop: 08/15/22 15:40 Polyethylene Glycol (Polyethylene (Miralax) 17 Gm Pack) 17 gm PO DAILY PRN PRN Reason: Constipation Stop: 07/30/22 19:51 Potassium Phosphate (Pot Phosphate Monobasic W/ Sod Tab) 2 tab PO QID [facility] Stop: 07/30/22 20:59 Last Admin: 07/20/22 07:39 Dose: 2 tab Sertraline HCl (Sertraline Hcl 50 Mg Tablet) 50 mg PO [facility] Stop: 08/13/22 14:29 Last Admin: 07/20/22 08:26 Dose: 50 mg Spironolactone (Spironolactone 100 Mg Tab) 200 mg PO [facility] Stop: 08/06/22 08:59 Last Admin: 07/18/22 08:31 Dose: 200 mg Thiamine HCl (Thiamine Hcl 100 Mg Tab) 100 mg PO [facility] Stop: 07/31/22 08:59 Last Admin: 07/20/22 08:26 Dose: 100 mg Umeclidinium Chamberlain (Umeclidinium Chamberlain 62.5mcg/Blister 7 Puffs/Inhaler) 1 puffs INH [facility] Stop: 07/31/22 08:59 Last Admin: 07/20/22 08:22 Dose: 1 puffs Vitamin D (Cholecalciferol 1,000 Units 25 Mcg Tab) 2,000 units PO QAM [facility] Stop: 07/31/22 08:59 Last Admin: 07/20/22 08:27 Dose: 2,000 units (1) Cirrhosis Ascites presence: with ascites Hepatic cirrhosis type: alcoholic cirrhosis Qualified Code(s): K70.31 - Alcoholic cirrhosis of liver with ascites
[2022-07-20] MEDS: ONDANSETRON INJ 2 MG/ML 2 ML VIAL IV PRN ×2 (13:54→22:26)
[2022-07-20] MEDS: HEPARIN 100 UNIT/ML 5ML FLUSH FLUSH PRN (13:55)
[2022-07-20] MEDS: MONTELUKAST SODIUM 10 MG TABLET PO SCH (22:14)
[2022-07-21] MEDS: oxyCODONE HCL IR 5 MG TAB (IMMEDIATE RELEASE) PO PRN ×4 (06:16→22:07)
[2022-07-21] MEDS: HEPARIN 100 UNIT/ML 5ML FLUSH FLUSH PRN (06:17)
[2022-07-21] MEDS: AMPHETAMINE ASP/SULF/DEXTRAMPH 5 MG TAB PO SCH ×2 (06:17→12:49)
[2022-07-21 06:49] LABS: BUN Creatinine Ratio 10.4 (10-20); Calcium 8.8 mg/dl (8.5-10.1); Creatinine Clr Calc Pharmacy 53.9 ml/min; Est GFR (African American) 64.5 ml/min; Est GFR (Non-African American) 55.7 ml/min; Magnesium 1.9 mg/dl (1.7-2.4); Phosphorus 5.8 mg/dl (2.5-4.9); Potassium 3.6 mmol/L (3.5-5.1)
[2022-07-21] MEDS: Ipratropium HFA Inhaler (Combivent Respimat P&T Subs) INH SCH ×2 (07:13→19:22)
[2022-07-21] MEDS: ALBUTEROL HFA 8 GM INHALER INH PRN ×2 (07:14→19:20)
[2022-07-21] MEDS: CHOLECALCIFEROL 1,000 UNITS 25 MCG TAB PO SCH (07:52)
[2022-07-21] MEDS: MULTIVITAMIN TAB PO SCH (07:52)
[2022-07-21] MEDS: SERTRALINE HCL 50 MG TABLET PO SCH (07:52)
[2022-07-21] MEDS: DOCUSATE SODIUM 100 MG CAP PO SCH ×2 (07:52→20:43)
[2022-07-21] MEDS: MAGNESIUM OXIDE 400 MG TAB PO SCH ×2 (07:52→20:43)
[2022-07-21] MEDS: PANTOprazole 40 MG TAB PO SCH ×2 (07:52→20:46)
[2022-07-21] MEDS: ASCORBIC ACID 500 MG TAB PO SCH (07:53)
[2022-07-21] MEDS: buPROPion SR 150 MG TABCR PO SCH (07:53)
[2022-07-21] MEDS: LORATADINE 10 MG TAB PO SCH ×2 (07:53→20:44)
[2022-07-21] MEDS: NITROFURANTOIN MONOHYDRATE 100 MG CAP PO SCH ×2 (07:53→20:43)
[2022-07-21] MEDS: THIAMINE HCL 100 MG TAB PO SCH (07:53)
[2022-07-21] MEDS: POT PHOSPHATE MONOBASIC W/ SOD TAB PO SCH ×4 (07:54→20:46)
[2022-07-21] MEDS: DICLOFENAC SOD 1% GEL 100 GM TUBE EXT SCH ×3 (07:54→20:45)
[2022-07-21] MEDS: BACLOFEN 10 MG TAB PO SCH ×2 (07:54→20:44)
[2022-07-21] MEDS: FLUTICASONE PROPIONATE NA SPR 16 GM BTL NAE SCH ×2 (07:55→20:46)
[2022-07-21] MEDS: UMECLIDINIUM BROMIDE 62.5MCG/BLISTER 7 PUFFS/INHALER INH SCH (07:55)
[2022-07-21] MEDS: LACTULOSE SYRUP 20 GM/30 ML UDC PO SCH (07:55)
[2022-07-21] MEDS: FLUTICASONE/VILANTEROL 200/25MCG 14 PUFFS/INHALER INH SCH (07:55)
[2022-07-21] MEDS: NICOTINE 14 MG/24 HR PATCH TD SCH (07:56)
[2022-07-21] MEDS: LIDOCAINE 5% 1 PATCH TD SCH (07:56)
[2022-07-21] MEDS: ONDANSETRON INJ 2 MG/ML 2 ML VIAL IV PRN (07:57)
--- NOTE | 2022-07-21 11:02 | Hospitalist Progress Note ---
Date of Service July 21, 2022 Assessment & Plan (1) Fall: Plan: - s/p fall in shower in setting of possible ETOH intoxication - Head CT, cervical spine, thoracic, lumbar, abd/pelvis, chest CTs performed - evidence of acute nondisplaced fractures involving the posterior medial aspects of the right ninth and 10th ribs. Otherwise no traumatic injuries noted - Has not used IV Dilaudid for the past 3 days now - gabapentin tapered off - Continue baclofen as this is helping as per patient - will slowly tape - holding Toradol due to VAN - continue Voltaren gel - oxycodone back to q6 but down to 5mg only due to VAN and risk of VAN will avoid NSAIDs (2) VAN (acute kidney injury): Plan: - possibly in the setting of NSAID use with toradol - will stop toradol - IVF - trend Cr - avoid further nephrotoxic medications - Cr improving (3) Hemoptysis: Plan: - unclear if true hemoptysis as patient did not have coughing or regurgitation prior to blood in spit - no obvious lesions noted in oral cavity - denies melena - hgb stable - vitals stable - will monitor for now - INR stable at 1.2 - no more episodes of hemoptysis (4) Closed rib fracture: Plan: - noted - continue IS (5) Alcohol use disorder: Plan: - patient recently relapsed - stressed importance of abstinence - would like to follow up outpatient rehab programs (6) Generalized anxiety disorder: Plan: - noted, continue home meds (7) Cirrhosis: Plan: - Patient with history of cirrhosis, [facility] - Left 2-month inpatient alcohol treatment facility 4 days [employer] and resumed drinking the day before arrival - 07/14/2022 - Abdominal ultrasound: No ascites - restarted lasix and aldactone now that VAN resolved - Hematochezia reported overnight, 07/15/2022 - s/p for EGD, colonoscopy 07/16/2022 with possible source of bleeding found to have hemorrhoid - hgb stable - Bowel regimen for hemorrhoid (8) Depression: Plan: - Patient reports that she has been taking Zoloft and Wellbutrin prior to admission - Zoloft and Wellbutrin restarted 07/14 - monitor qtc on ECG (9) Asthma: Plan: - continue inhalers Plan DVT Ppx: SCDs - Encouraged to ambulate frequently, patient verbalized understanding Code status: FULL PCP: Ritu Dispo: telemetry Shola Friend MD [facility] Medicine Admission and Anticipated Discharge Date Admission Date: June 30, 2022 Subjective Patient with ETOH cirrhosis with ascites, alcohol use disorder, depression, anxiety who presented after fall in shower with possible ETOH intoxication at that time. Being managed for pain control, weaned off opioids, started on gabapentin and baclofen per pain management. Course complicated by VAN, improved with IVF. Had episode of hematochezia, now s/p EGD and colonoscopy with mild portal hypertensive gastropathy and no source of bleeding on EGD, and polyp and hemorrhoid on colonoscopy. Tolerating regular diet. Patient complains of pain on right flank/shoulder area but having some impr ovement. Denies n/v/. Denies chest pain, shortness of breath, diarrhea. Come left sided abdominal pain. Had a little blood in stool yesterday, hgb stable. Review of Systems Review of Systems: all noted and negative except for above Physical Exam Physical Exam: General- oriented x 3, not in distress, speaks in sentences with no effort or accessory muscle use Eyes- anicteric Neck- no JVD Lungs- clear breath sounds bilaterally, no crackles Heart- normal rate, regular rhythm; no murmurs Abdomen- normal bowel sounds, not distended, soft, no tenderness Extremities- no pretibial edema, no calf tenderness Neuro- alert, oriented x 3; no gross focal neurologic deficits Skin- warm & dry Results & Data Results & Data ([facility]) Vital Signs (Past 12 Hours) Vital Signs Temp Pulse Resp BP Pulse Ox O2 Del Method 07/21/22 07:55 36.9 C 74 16 110/74 97 Room Air 07/21/22 07:14 76 16 97 Room Air Diagnostic Findings Laboratory Results WBC 3.98 K/ul (4.8-10.8) L 07/20/22 07:31 RBC 2.60 M/uL (3.93-5.22) L 07/20/22 07:31 Hgb 7.7 g/dl (12.0-16.0) L 07/20/22 07:31 Hct 22.9 % (34.1-44.9) L 07/20/22 07:31 MCV 88.1 fL (80.0-100.0) 07/20/22 07: MCH 29.6 pg (25.0-34.0) 07/20/22 07: MCHC 33.6 g/dL (32.0-36.0) 07/20/22 07: RDW Std Deviation 58.9 fL (36.4-46.3) H 07/20/22 07: RDW Coeff of Yasmine 18.6 % (11.5-14.5) H 07/20/22 07:31 Plt Count 103 K/uL (130-400) L 07/20/22 07:31 MPV 9.3 fL (9.4-12.3) L 07/20/22 07:31 Immature Gran % (Auto) 0.3 % 07/20/22 07: Neut % (Auto) 65.5 % 07/20/22 07: Lymph % (Auto) 22.6 % 07/20/22 07: [place] % (Auto) 9.3 % 07/20/22 07: Eos % (Auto) 2.0 % 07/20/22 07:31 Baso % (Auto) 0.3 % 07/20/22 07:31 Neut # (Auto) 2.61 K/uL (1.4-6.5) 07/20/22 07:31 Lymph # (Auto) 0.90 K/uL (1.2-3.4) L 07/20/22 07:31 [place] # (Auto) 0.37 K/uL (0.24-0.82) 07/20/22 07: Eos # (Auto) 0.08 K/uL (0-0.50) 07/20/22 07:31 Baso # (Auto) 0.01 K/uL (0-0.2) 07/20/22 07:31 Immature Gran # (Auto) 0.01 K/uL (0.00-0.02) 07/20/22 07:31 RBC Morphology Unremarkable 07/20/22 07:31 Polychromasia 1+ 07/07/22 06:34 Poikilocytosis Present 07/17/22 05:36 Target Cells 1+ 07/09/22 06:44 PT 13.0 Seconds (9.0-12.0) H 07/20/22 07:31 INR 1.2 (0.9-1.1) H 07/20/22 07:31 APTT 32.0 Seconds (21.0-31.0) H 06/30/22 12:26 PTT Ratio 1.2 06/30/22 12:26 Sodium 140 mmol/L (136-145) 07/21/22 06:12 Potassium 3.6 mmol/L (3.5-5.1) 07/21/22 06:12 Chloride 109 mmol/L (98-107) H 07/21/22 06:12 Carbon Dioxide 24 mmol/L (21-32) 07/21/22 06:12 Anion Gap 7 (3-11) 07/21/22 06:12 BUN 13 mg/dl (6-23) 07/21/22 06:12 Creatinine 1.25 mg/dl (0.6-1.2) H 07/21/22 06:12 Est Cr Clr Drug Dosing 53.9 ml/min 07/21/22 06:12 Est GFR ( Amer) 64.5 ml/min 07/21/22 06:12 Est GFR (Non-Af Amer) 55.7 ml/min 07/21/22 06:12 BUN/Creatinine Ratio 10.4 (10-20) 07/21/22 06:12 Glucose 95 mg/dl (70-99(Fasting)) 07/21/22 06:12 POC Glucose 71 mg/dl (70-99) 07/02/22 07:38 Calcium 8.8 mg/dl (8.5-10.1) 07/21/22 06:12 Phosphorus 5.8 mg/dl (2.5-4.9) H 07/21/22 06:12 Magnesium 1.9 mg/dl (1.7-2.4) 07/21/22 06:12 Total Bilirubin 1.7 mg/dl (0.2-1.0) H 07/20/22 07:31 Direct Bilirubin 0.7 mg/dl (0-0.2) H 07/14/22 10:54 AST 24 U/L (13-39) 07/20/22 07:31 ALT 16 U/L (7-52) 07/20/22 07:31 Alkaline Phosphatase 94 U/L (34-104) 07/20/22 07:31 Ammonia 52.0 umol/L (18-72) 07/02/22 05:48 Troponin I High Sens 5.1 pg/ml (0-14) D 06/30/22 12:26 Total Protein 5.9 gm/dl (6.0-8.3) L 07/20/22 07:31 Albumin 3.4 gm/dl (3.4-5.0) 07/20/22 07:31 Globulin 2.5 gm/dl (2.5-4.0) 07/20/22 07:31 Albumin/Globulin Ratio 1.4 (0.9-2) 07/20/22 07:31 Lipase 16 U/L (11-82) 06/30/22 12:26 Urine Color Yellow 07/18/22 13:40 Urine Appearance Clear (Clear) 07/18/22 13:40 Urine pH 7.0 (4.5-7.5) 07/18/22 13:40 Ur Specific [place] 1.013 (1.000-1.030) 07/18/22 13:40 Urine Protein Negative (Negative) 07/18/22 13:40 Urine Glucose (UA) Negative (Negative) 07/18/22 13:40 Urine Ketones Negative (Negative) 07/18/22 13:40 Urine Blood Negative (Negative) 07/18/22 13:40 Urine Nitrite Negative (Negative) 07/18/22 13:40 Urine Bilirubin Negative (Negative) 07/18/22 13:40 Urine Urobilinogen Negative (Negative) 07/18/22 13:40 Ur Leukocyte Esterase Negative (Negative) 07/18/22 13:40 Ur Random Creatinine 62.2 mg/dl 07/19/22 09:00 Ur Random Sodium 124 mmol/L 07/19/22 09:00 POC Ur Test Cancelled 07/01/22 18:52 Urine Opiates Screen Pos (Neg) H 06/30/22 17:00 U Codeine Confrm GC/MS NEGATIVE ng/mL (<50) 06/30/22 17:00 Ur Morphine (GC/MS) 465 ng/mL (<50) H 06/30/22 17:00 Ur Hydrocodone (GC/MS) NEGATIVE ng/mL (<50) 06/30/22 17:00 Ur Norhydrocodone NEGATIVE ng/mL (<50) 06/30/22 17:00 Ur Noroxycodone NEGATIVE ng/mL (<50) 06/30/22 17:00 Urine Oxycodone (GC/MS) NEGATIVE ng/mL (<50) 06/30/22 17:00 U Oxymorphone GC/MS NEGATIVE ng/mL (<50) 06/30/22 17:00 Ur Methadone, Qual Neg (Neg) 06/30/22 17:00 Ur Hydromorphone (GC/MS) NEGATIVE ng/mL (<50) 06/30/22 17:00 Urine Barbiturates Neg (Neg) 06/30/22 17:00 Ur Phencyclidine (PCP) Neg (Neg) 06/30/22 17:00 U Amphetamin/Meth Scrn Neg (Neg) 06/30/22 17:00 Urine MDEA negative 06/30/22 17:00 MDMA (Ecstasy) Screen Pos (Neg) H 06/30/22 17:00 MDMA negative 06/30/22 17:00 Urine MDMA negative 06/30/22 17:00 U Benzodiazepines Scrn Neg (Neg) 06/30/22 17:00 Ur Cocaine Metabolite Neg (Neg) 06/30/22 17:00 U Marijuana (THC) Screen Neg (Neg) 06/30/22 17:00 Drug Screen Comment SEE NOTE 06/30/22 17:00 Ethyl Alcohol mg/dL 252.9 mg/dl (<10.0) H 06/30/22 12:26 SARS-CoV-2, RNA, NAAT NEGATIVE (NEGATIVE) 06/30/22 15:30 Blood Type O Positive 07/14/22 22:43 Antibody Screen NEGATIVE 07/14/22 22:[address] 06/30/22 13:14 CT chest diagnostic wo con, CT thoracic spine wo con, CT lumbar spine wo con, CT abd pelvis wo con CLINICAL HISTORY: 37 years-old Female with trauma. Acute chest and abdominal trauma status post fall TECHNIQUE: Multiaxial CT images of the chest, abdomen and pelvis, CT and thoracic spine were performed without contrast. A dose lowering technique was utilized adhering to the principles of ALARA. COMPARISON: Chest CT 07/13/21, CT abdomen 04/15/22. FINDINGS: CT CHEST: The lungs are clear. The mediastinal vascular structures are within normal limits. Right IJ Eyqyhu-o-Kkbl catheter distal tip terminates within the mid SVC. No mediastinal or hilar lymphadenopathy. No pleural effusion or pn eumothorax. Mild sigmoidal scoliosis of the thoracic spine. No acute fracture identified. CT ABDOMEN/PELVIS: No pneumatosis or pneumoperitoneum. Spleen is enlarged measuring 13.4 cm in length. Unremarkable pancreas with a few punctate calcifications noted within the uncinate process. The adrenal glands are within normal limits. Punctate calcification within the jessica hepatis may represent an adherent gallstone. Mild marginal nodularity of the liver suggestive of cirrhosis. No hepatic mass identified. Unremarkable kidneys, urinary bladder, uterus and adnexa. Aorta and IVC are unremarkable. Abdominal varicosities. There is no lymphadenopathy identified. No bowel obstruction or bowel wall thickening. Moderate fecal retention. Noninflamed appendix. No ascites or mesenteric inflammation. Tiny fat filled umbilical hernia. No acute fracture identified. CT THORACIC SPINE: Upper thoracic levoscoliosis. Mild multilevel spondylitic spurring and facet arthrosis. The intervertebral disc spaces are generally well maintained. Equivocal acute nondisplaced fracture involves the posterior medial aspect of the right ninth and 10th ribs. (Please see image 186 of series 10 and image 21 of the sagittal series. No acute vertebral body fracture identified. CT LUMBAR SPINE: Mild lumbar levoscoliosis. Mild to moderate multilevel facet arthrosis. No acute fracture, subluxation or endplate erosion. The imaged sacrum and iliac bones appear intact. Healed chronic fracture of the right inferior L5 articular facet. IMPRESSION: 1. Suggestion of subtle acute nondisplaced fractures involving the posterior medial aspects of the right ninth and 10th ribs. Correlate with point tenderness. 2. No pneumothorax. 3. No acute posttraumatic intrathoracic, intra-abdominal or intrapelvic abnormality 4. Cirrhosis with splenomegaly and abdominal varicosities compatible with portal venous hypertension. ACT 112: Negative or not required by law. Electronically signed by: Bud Madera M.D. 06/30/2022 3:[address] 06/30/22 13:22 CT chest diagnostic wo con, CT thoracic spine wo con, CT lumbar spine wo con, CT abd pelvis wo con CLINICAL HISTORY: 37 years-old Female with trauma. Acute chest and abdominal trauma status post fall TECHNIQUE: Multiaxial CT images of the chest, abdomen and pelvis, CT and thoracic spine were performed without contrast. A dose lowering technique was utilized adhering to the principles of ALARA. COMPARISON: Chest CT 07/13/21, CT abdomen 04/15/22. FINDINGS: CT CHEST: The lungs are clear. The mediastinal vascular structures are within normal limits. Right IJ Jpdqii-n-Yfji catheter distal tip terminates within the mid SVC. No mediastinal or hilar lymphadenopathy. No pleural effusion or pneumothor ax. Mild sigmoidal scoliosis of the thoracic spine. No acute fracture identified. CT ABDOMEN/PELVIS: No pneumatosis or pneumoperitoneum. Spleen is enlarged measuring 13.4 cm in length. Unremarkable pancreas with a few punctate calcifications noted within the uncinate process. The adrenal glands are within normal limits. Punctate calcification within the jessica hepatis may represent an adherent gallstone. Mild marginal nodularity of the liver suggestive of cirrhosis. No hepatic mass identified. Unremarkable kidneys, urinary bladder, uterus and adnexa. Aorta and IVC are unremarkable. Abdominal varicosities. There is no lymphadenopathy identified. No bowel obstruction or bowel wall thickening. Moderate fecal retention. Noninflamed appendix. No ascites or mesenteric inflammation. Tiny fat filled umbilical hernia. No acute fracture identified. CT THORACIC SPINE: Upper thoracic levoscoliosis. Mild multilevel spondylitic spurring and facet arthrosis. The intervertebral disc spaces are generally well maintained. Equivocal acute nondisplaced fracture involves the posterior medial aspect of the right ninth and 10th ribs. (Please see image 186 of series 10 and image 21 of the sagittal series. No acute vertebral body fracture identified. CT LUMBAR SPINE: Mild lumbar levoscoliosis. Mild to moderate multilevel facet arthrosis. No acute fracture, subluxation or endplate erosion. The imaged sacrum and iliac bones appear intact. Healed chronic fracture of the right inferior L5 articular facet. IMPRESSION: 1. Suggestion of subtle acute nondisplaced fractures involving the posterior medial aspects of the right ninth and 10th ribs. Correlate with point tenderness. 2. No pneumothorax. 3. No acute posttraumatic intrathoracic, intra-abdominal or intrapelvic abnormality 4. Cirrhosis with splenomegaly and abdominal varicosities compatible with portal venous hypertension. ACT 112: Negative or not required by law. Electronically signed by: Bud Madera M.D. 06/30/2022 3:[address] 06/30/22 13:22 CT chest diagnostic wo con, CT thoracic spine wo con, CT lumbar spine wo con, CT abd pelvis wo con CLINICAL HISTORY: 37 years-old Female with trauma. Acute chest and abdominal trauma status post fall TECHNIQUE: Multiaxial CT images of the chest, abdomen and pelvis, CT and thoracic spine were performed without contrast. A dose lowering technique was utilized adhering to the principles of ALARA. COMPARISON: Chest CT 07/13/21, CT abdomen 04/15/22. FINDINGS: CT CHEST: The lungs are clear. The mediastinal vascular structures are within normal limits. Right IJ Nofmsc-d-Cksu catheter distal tip terminates within the mid SVC. No mediastinal or hilar lymphadenopathy. No pleural effusion or pneumothorax. Mild sigmoidal scoliosis of the thoracic spine. No acute fracture identified. CT ABDOMEN/PELVIS: No pneumatosis or pneumoperitoneum. Spleen is enlarged measuring 13.4 cm in length. Unremarkable pancreas with a few punctate calcifications noted within the uncinate process. The adrenal glands are within normal limits. Punctate calcification within the jessica hepatis may represent an adherent gallstone. Mild marginal nodularity of the liver suggestive of cirrhosis. No hepatic mass identified. Unremarkable kidneys, urinary bladder, uterus and adnexa. Aorta and IVC are unremarkable. Abdominal varicosities. There is no lymphadenopathy identified. No bowel obstruction or bowel wall thickening. Moderate fecal retention. Noninflamed appendix. No ascites or mesenteric inflammation. Tiny fat filled umbilical hernia. No acute fracture identified. CT THORACIC SPINE: Upper thoracic levoscoliosis. Mild multilevel spondylitic spurring and facet arthrosis. The intervertebral disc spaces are generally well maintained. Equivocal acute nondisplaced fracture involves the posterior medial aspect of the right ninth and 10th ribs. (Please see image 186 of series 10 and image 21 of the sagittal series. No acute vertebral body fracture identified. CT LUMBAR SPINE: Mild lumbar levoscoliosis. Mild to moderate multilevel facet arthrosis. No acute fracture, subluxation or endplate erosion. The imaged sacrum and iliac bones appear intact. Healed chronic fracture of the right inferior L5 articular facet. IMPRESSION: 1. Suggestion of subtle acute nondisplaced fractures involving the posterior med ial aspects of the right ninth and 10th ribs. Correlate with point tenderness. 2. No pneumothorax. 3. No acute posttraumatic intrathoracic, intra-abdominal or intrapelvic abnormality 4. Cirrhosis with splenomegaly and abdominal varicosities compatible with portal venous hypertension. ACT 112: Negative or not required by law. Electronically signed by: Bud Madera M.D. 06/30/2022 3:[address] 06/30/22 13:[address] DOSE: 959.53 mGy.cm HISTORY: fall TECHNIQUE: Multiaxial CT images of the cervical spine were performed and reformatted in the sagittal and coronal plane without the use of contrast. A dose lowering technique was utilized adhering to the principles of ALARA. COMPARISON: Cervical spine CT 07/22/2021. FINDINGS: No fractures. No subluxation. Prevertebral soft tissues and the C1-C2 interval are intact. No pneumothorax. There is a partially visualized right jugular central venous catheter. IMPRESSION: No fractures within the cervical spine. ACT 112: Negative or not required by law. Electronically signed by: Weston Cisneros M.D. 06/30/2022 2:33 PM Abdomen/Pelvis CT 07/03/22 14:[address] WITH IV CONTRAST CT DOSE: 345.53 mGy.cm HISTORY: Acute right lower quadrant abdominal pain R/O Appendicitis TECHNIQUE: Multiaxial CT images of the abdomen and pelvis were performed following the IV administration of 93 cc of Optiray, A dose lowering technique was utilized adhering to the principles of ALARA. COMPARISON STUDY: CT abdomen and pelvis 06/30/2022 FINDINGS: Trace pleural effusions with dependent bibasilar atelectasis. No pneumatosis or pneumoperitoneum. Spleen is enlarged measuring 13.4 cm in length. Unremarkable pancreas with a few punctate calcifications noted within the uncinate process. The adrenal glands are within normal limits. Contracted gallbladder. Mild marginal nodularity of the liver suggestive of cirrhosis. . Liver is diffusely heterogeneous. No hepatic mass identified. Unremarkable kidneys, uterus and adnexa. Mild nonspecific urinary bladder wall thickening. Aorta and IVC are unremarkable. Abdominal varicosities. There is no lymphadenopathy identified. Distended debris-filled stomach suggestive of recent meal. Small volume of abdominal pelvic ascites with diffuse mesenteric edema is new from prior. Moderate to extensive colonic fecal retention as progressed. Noninflamed appendix. Mild colonic diverticulosis. Mild wall thickening of the cecum and ascending colon is new from the prior study. Tiny fat filled umbilical hernia. The previously questioned subtle fractures of the posterior right ninth and 10th ribs are not appreciated. IMPRESSION: 1. Cirrhosis with splenomegaly and abdominal varicosities compatible with portal venous hypertension redemonstrated. There is new small volume of abdominal pelvic ascites with mesenteric edema. 2. Noninflamed appendix. 3. Wall thickening of the cecum and proximal ascending colon is new from the prior exam and may be secondary to portal colopathy. An infectious or inflammatory colitis could appear similarly. 4. Moderate to extensive fecal retention. 5. Trace pleural effusions. ACT 112: Negative or not required by law. The above report was generated using voice recognition software. It may contain grammatical, syntax or spelling errors. Electronically signed by: Bud Madera M.D. 07/03/2022 4:[address] 07/09/22 09:[address] DOSE: 638.56 mGycm HISTORY: s/p fall, head trauma TECHNIQUE: Multiaxial CT images of the head were performed without the use of intravenous contrast. Automated exposure control was utilized for this study. A dose lowering technique was utilized adhering to the principles of ALARA. Comparison: Head CT 06/30/2022. Findings: The paranasal sinuses and mastoid air cells are clear. The calvarium and skull base are intact. The ventricles and sulci are within normal limits. There is no mass, hematoma, midline shift, or acute infarct. Impression: No acute intracranial abnormality. ACT 112: Negative or not required by law. Electronically signed by: Weston Cisneros M.D. 07/09/2022 10:09 AM Ribs w/Chest X-Ray 07/11/22 16:15 PA CHEST WITH RIGHT-SIDED RIB SERIES CLINICAL HISTORY: Follow-up rib fractures. FINDINGS: A PA chest radiograph with 4 additional views from a right sided rib series is compared to radiographs and chest CT dated 06/30/2022. A right internal jugular central medicine infusion port is unchanged in position. The cardiomediastinal silhouette is unremarkable. The lungs and pleural spaces are clear noting bibasilar atelectasis. No pneumothorax is seen. There is no radiographic evidence of acute/displaced right-sided rib fracture on the rib series. There are chronic/healed left-sided rib fractures. There is thoracolumbar scoliosis. IMPRESSION: 1 No active disease in the chest. 2. There is no radiographic evidence of acute/displaced right-sided rib fracture in the rib series. Subtle fractures questioned by CT are not apparent on x-ray. ACT 112: Negative or not required by law. Electronically signed by: Brodie Gillis M.D. 07/11/2022 4:49 PM Abdomen Ultrasound 07/14/22 10:54 ULTRASOUND ASCITES CHECK CLINICAL HISTORY: Ascites. COMPARISON STUDY: Ultrasound ascites check dated 07/07/2022. FINDINGS: Real-time grayscale sonography of all 4 quadrants of the abdomen is pe rformed to assess for abdominal ascites. No abdominal ascites is identified. The liver is cirrhotic in morphology and appears steatotic. The spleen is enlarged measuring 17.7 cm in length. IMPRESSION: No abdominal ascites is identified. Electronically signed by: Brodie Gillis M.D. 07/14/2022 12:02 PM Medications Administered Current Inpatient Medications Acetaminophen (Acetaminophen 500 Mg Tab) 500 mg PO Q6H PRN PRN Reason: pain/fever Stop: 07/31/22 19:39 Last Admin: 07/16/22 06:27 Dose: 500 mg Albuterol (Albuterol Hfa 8 Gm Inhaler) 2 puffs INH BID PRN PRN Reason: Shortness Of Breath Stop: 07/30/22 17:53 Last Admin: 07/21/22 07:14 Dose: 2 puffs Amphetamine/Dextroamphetamine (Amphetamine Asp/Sulf/Dextramph 5 Mg Tab) 5 mg PO [id number] [facility] Stop: 07/27/22 13:59 Last Admin: 07/21/22 06:17 Dose: 5 mg Ascorbic Acid (Ascorbic Acid 500 Mg Tab) 500 mg PO QAM [facility] Stop: 07/31/22 08:59 Last Admin: 07/21/22 07:53 Dose: 500 mg Baclofen (Baclofen 10 Mg Tab) 5 mg PO BID JUAN Stop: 08/16/22 20:59 Last Admin: 07/21/22 07:54 Dose: 5 mg Bisacodyl (Bisacodyl 5 Mg Tabec) 5 mg PO BID PRN PRN Reason: Constipation Stop: 08/17/22 12:03 Bupropion HCl (Bupropion Sr 150 Mg Tabcr) 150 mg PO DAILY [facility] Stop: 08/13/22 14:29 Last Admin: 07/21/22 07:53 Dose: 150 mg Diclofenac Sodium (Diclofenac Sod 1% Gel 100 Gm Tube) 4 gm EXT TID JUAN; Protocol Stop: 07/31/22 20:59 Last Admin: 07/21/22 07:54 Dose: 4 gm Docusate Sodium (Docusate Sodium 100 Mg Cap) 100 mg PO BID JUAN Stop: 08/17/22 20:59 Last Admin: 07/21/22 07:52 Dose: 100 mg Fluticasone Propionate (Fluticasone Propionate Na Spr 16 Gm Btl) 2 sprays LINETTE BID JUAN Stop: 07/30/22 20:59 Last Admin: 07/21/22 07:55 Dose: 2 sprays Fluticasone/Vilanterol (Fluticasone/Vilanterol 200/25mcg 14 Puffs/Inhaler) 1 puffs INH DAILY JUAN Stop: 07/31/22 08:59 Last Admin: 07/21/22 07:55 Dose: 1 puffs Furosemide (Furosemide 40 Mg Tab) 40 mg PO QAM [facility] Stop: 08/17/22 08:59 Last Admin: 07/18/22 08:37 Dose: 40 mg Heparin Sodium (Porcine) (Heparin 100 Unit/Ml 5ml Flush) 5 ml FLUSH PRN PRN PRN Reason: Flush Stop: 08/01/22 00:52 Last Admin: 07/21/22 06:17 Dose: 5 ml Hydroxyzine HCl (Hydroxyzine Hcl 25 Mg Tab) 25 mg PO TID PRN PRN Reason: Anxiety Stop: 07/30/22 17:53 Last Admin: 07/20/22 10:10 Dose: 25 mg Ipratropium [place] (Ipratropium Hfa Inhaler (Combivent Respimat P&T Subs)) 1 puffs INH BIDR [facility] Stop: 07/30/22 18:59 Last Admin: 07/21/22 07:13 Dose: 1 puffs Ketorolac Tromethamine (Ketorolac Tromethamine 15 Mg/Ml Vial) 15 mg IV Q6H PRN PRN Reason: Moderate Pain (4, 5, 6) Stop: 07/22/22 10:01 Last Admin: 07/19/22 04:36 Dose: 15 mg Lactulose (Lactulose Syrup 20 Gm/30 Ml Udc) 20 gm PO QAM [facility] Stop: 07/31/22 08:59 Last Admin: 07/21/22 07:55 Dose: 20 gm Lidocaine (Lidocaine 5% 1 Patch) 1 patch TD QAM [facility] Stop: 07/30/22 16:29 Last Admin: 07/21/22 07:56 Dose: 1 patch Loratadine (Loratadine 10 Mg Tab) 10 mg PO QAM [facility] Stop: 07/31/22 08:59 Last Admin: 07/21/22 07:53 Dose: 10 mg Magnesium Oxide (Magnesium Oxide 400 Mg Tab) 400 mg PO BID [facility] Stop: 07/30/22 20:59 Last Admin: 07/21/22 07:52 Dose: 400 mg Melatonin (Melatonin 3 Mg Tab) 3 mg PO HS PRN PRN Reason: Sleep Stop: 07/31/22 23:04 Last Admin: 07/18/22 21:04 Dose: 3 mg Miscellaneous (Remove Lidoderm Patch) 1 each N/A DAILY@2100 [facility] Stop: 07/30/22 20:59 Last Admin: 07/20/22 22:18 Dose: 1 each Miscellaneous (Remove Nicoderm Patch) 1 each N/A QAM [facility] Stop: 07/31/22 08:59 Last Admin: 07/21/22 07:57 Dose: 1 each Montelukast Sodium (Montelukast Sodium 10 Mg Tablet) 10 mg PO HS [facility] Stop: 07/30/22 20:59 Last Admin: 07/20/22 22:14 Dose: 10 mg Multivitamins (Multivitamin Tab) 1 tab PO QAM [facility] Stop: 07/31/22 08:59 Last Admin: 07/21/22 07:52 Dose: 1 tab Nicotine (Nicotine 14 Mg/24 Hr Patch) 14 mg TD QAM [facility] Stop: 07/31/22 08:59 Last Admin: 07/21/22 07:56 Dose: 14 mg Nitrofurantoin Macrocrystals (Nitrofurantoin Monohydrate 100 Mg Cap) 100 mg PO BID [facility] Stop: 07/24/22 11:59 Last Admin: 07/21/22 07:53 Dose: 100 mg Ondansetron HCl (Ondansetron Inj 2 Mg/Ml 2 Ml Vial) 4 mg IV Q6H PRN PRN Reason: Nausea Stop: 07/30/22 19:51 Last Admin: 07/21/22 07:57 Dose: 4 mg Oxycodone HCl (Oxycodone Hcl Ir 5 Mg Tab (Immediate Release)) 5 mg PO Q6H PRN PRN Reason: Severe Pain (7, 8, 9, 10) Stop: 08/03/22 13:06 Pantoprazole Sodium (Pantoprazole 40 Mg Tab) 40 mg PO BID [facility] Stop: 07/31/22 20:59 Last Admin: 07/21/22 07:52 Dose: 40 mg Phenylephrine HCl (Anusol Supp 1 Ea) 1 supp NE Q8 PRN PRN Reason: Hemorrhoids Stop: 08/15/22 15:40 Polyethylene Glycol (Polyethylene (Miralax) 17 Gm Pack) 17 gm PO DAILY PRN PRN Reason: Constipation Stop: 07/30/22 19:51 Potassium Phosphate (Pot Phosphate Monobasic W/ Sod Tab) 2 tab PO QID [facility] Stop: 07/30/22 20:59 Last Admin: 07/21/22 07:54 Dose: 2 tab Sertraline HCl (S[facility]ine Hcl 50 Mg Tablet) [facility]: 08/13/22 14:29 Last Admin: 07/21/22 07:52 Dose: 50 mg Spironolactone (Spironolactone 100 Mg Tab) [facility] [place] Stop: 08/06/22 08:59 Last Admin: 07/18/22 08:31 Dose: 200 mg Thiamine HCl (Thiamine Hcl 100 Mg Tab) [facility] Stop: 07/31/22 08:59 Last Admin: 07/21/22 07:53 Dose: 100 mg Umeclidinium [place] (Umeclidinium [place] 62.5mcg/Blister 7 Puffs/Inhaler) 1 puffs [facility] Stop: 07/31/22 08:59 Last Admin: 07/21/22 07:55 Dose: 1 puffs Vitamin D (Cholecalciferol 1,000 Units 25 Mcg Tab) 2,000 [facility] Stop: 07/31/22 08:59 Last Admin: 07/21/22 07:52 Dose: 2,000 units (1) Cirrhosis Ascites presence: with ascites Hepatic cirrhosis type: alcoholic cirrhosis Qualified Code(s): K70.31 - Alcoholic cirrhosis of liver with ascites
[2022-07-21] MEDS: hydrOXYzine HCl 25 MG TAB PO PRN ×2 (13:50→22:07)
[2022-07-21] MEDS: MONTELUKAST SODIUM 10 MG TABLET PO SCH (20:43)
[2022-07-21] MEDS ORDERED: oxyCODONE HCL IR 5 MG TAB (IMMEDIATE RELEASE) PO STA (21:26)
[2022-07-21] MEDS: MELATONIN 3 MG TAB PO PRN (22:07)
[2022-07-22] MEDS: oxyCODONE HCL IR 5 MG TAB (IMMEDIATE RELEASE) PO PRN ×3 (00:44→12:03)
[2022-07-22] MEDS ORDERED: MELATONIN 3 MG TAB PO STA (00:53)
[2022-07-22] MEDS: MELATONIN 3 MG TAB PO PRN (00:58)
[2022-07-22 06:36] LABS: Hematocrit (blood only) 23.4 % (34.1-44.9); Hemoglobin 7.7 g/dl (12.0-16.0); Mean Platelet Volume 10.2 fL (9.4-12.3); Platelet Count 107 K/uL (130-400); White Blood Count 3.82 K/ul (4.8-10.8)
[2022-07-22] MEDS: hydrOXYzine HCl 25 MG TAB PO PRN ×2 (06:37→12:03)
[2022-07-22] MEDS: AMPHETAMINE ASP/SULF/DEXTRAMPH 5 MG TAB PO SCH ×2 (06:37→13:21)
[2022-07-22 07:03] LABS: Mean Corpuscular Hemoglobin 29.5 pg (25.0-34.0); Mean Corpuscular Hgb Conc 32.9 g/dL (32.0-36.0); Mean Corpuscular Volume 89.7 fL (80.0-100.0); RDW Coefficient of Variation 18.6 % (11.5-14.5); RDW Standard Deviation 59.4 fL (36.4-46.3); Red Blood Count 2.61 M/uL (3.93-5.22)
[2022-07-22 07:19] LABS: Albumin Globulin Ratio 1.3 (0.9-2); Albumin Level 3.5 gm/dl (3.4-5.0); BUN Creatinine Ratio 8.9 (10-20); Creatinine Clr Calc Pharmacy 54.8 ml/min; Est GFR (African American) 65.8 ml/min; Est GFR (Non-African American) 56.8 ml/min; Globulin 2.6 gm/dl (2.5-4.0); Magnesium 1.9 mg/dl (1.7-2.4); Phosphorus 5.1 mg/dl (2.5-4.9); Total Protein 6.1 gm/dl (6.0-8.3)
[2022-07-22] MEDS: Ipratropium HFA Inhaler (Combivent Respimat P&T Subs) INH SCH (07:48)
[2022-07-22] MEDS: ALBUTEROL HFA 8 GM INHALER INH PRN (07:48)
[2022-07-22] MEDS: ONDANSETRON INJ 2 MG/ML 2 ML VIAL IV PRN (08:04)
[2022-07-22] MEDS ORDERED: LACTATED RINGER'S 500 ML IV ONE (08:07)
[2022-07-22] MEDS: HEPARIN 100 UNIT/ML 5ML FLUSH FLUSH PRN (08:08)
[2022-07-22] MEDS: LIDOCAINE 5% 1 PATCH TD SCH (08:18)
[2022-07-22] MEDS: NICOTINE 14 MG/24 HR PATCH TD SCH (08:20)
[2022-07-22] MEDS: DICLOFENAC SOD 1% GEL 100 GM TUBE EXT SCH ×2 (08:21→13:21)
[2022-07-22] MEDS: BACLOFEN 10 MG TAB PO SCH (08:40)
[2022-07-22] MEDS: FLUTICASONE PROPIONATE NA SPR 16 GM BTL NAE SCH (08:40)
[2022-07-22] MEDS: LACTULOSE SYRUP 20 GM/30 ML UDC PO SCH (08:40)
[2022-07-22] MEDS: FLUTICASONE/VILANTEROL 200/25MCG 14 PUFFS/INHALER INH SCH (08:40)
[2022-07-22] MEDS: MAGNESIUM OXIDE 400 MG TAB PO SCH (08:41)
[2022-07-22] MEDS: CHOLECALCIFEROL 1,000 UNITS 25 MCG TAB PO SCH (08:41)
[2022-07-22] MEDS: ASCORBIC ACID 500 MG TAB PO SCH (08:41)
[2022-07-22] MEDS: POT PHOSPHATE MONOBASIC W/ SOD TAB PO SCH ×2 (08:41→12:02)
[2022-07-22] MEDS: PANTOprazole 40 MG TAB PO SCH (08:41)
[2022-07-22] MEDS: MULTIVITAMIN TAB PO SCH (08:42)
[2022-07-22] MEDS: buPROPion SR 150 MG TABCR PO SCH (08:42)
[2022-07-22] MEDS: DOCUSATE SODIUM 100 MG CAP PO SCH (08:42)
[2022-07-22] MEDS: LORATADINE 10 MG TAB PO SCH (08:42)
[2022-07-22] MEDS: NITROFURANTOIN MONOHYDRATE 100 MG CAP PO SCH (08:42)
[2022-07-22] MEDS: SERTRALINE HCL 50 MG TABLET PO SCH (08:42)
[2022-07-22] MEDS: THIAMINE HCL 100 MG TAB PO SCH (08:42)
[2022-07-22] MEDS: UMECLIDINIUM BROMIDE 62.5MCG/BLISTER 7 PUFFS/INHALER INH SCH (08:43)
[2022-07-22 13:46] LABS: Urea Nitrogen, Random Urine 273 mg/dL
--- NOTE | 2022-07-22 14:35 | Discharge Summary ---
Date of Service July 22, 2022 Admission HPI Per Admitting Provider This is a 37yo F with a PMH of alcoholic cirrhosis with ascites, continued severe alcohol dependence, ADD, depression, anxiety and other medical problems listed below who presents after fall at home this morning. Patient recently completed 2 months in an inpatient rehab facility and returned home 4 days ago. Began drinking again yesterday and is endorsing two to 16 oz 9% ABV beers this morning before attempting to shower. Patient fell onto right side and hit left frontal and back aspects of head trying to stand back up. eports that she was unconscious for unclear duration but was unwitnessed. Boyfriend came home from work and took to PCP, who sent to ED for further evaluation. Has had worsened nausea and recurrent emesis since admission to alcohol rehab that has persisted. Limited PO intake despite using zofran. Has been taking lasix and spironolactone. Endorsing 2 episodes of vomiting this morning [facility] but no hematemesis. No fever, chills, lightheadedness, CP, SOB, abdominal pain, dysuria or constipation. Follows with [facility] for cirrhosis. During last admission in March 2022, patient was transferred to tertiary care center for liver transplant workup. Admission Exam Per Admitting Provider On examination, patient is agitated and anxious. Complains of headache and right-sided rib cage pain Lungs are clear to auscultation bilaterally, normal cardiac exam with tachycardia Right rib cage is tender, right upper quadrant tenderness, minimal distention of the abdomen which could be due to ascites. Extremity and skin examination is normal Neurological examination is unremarkable Principal Diagnosis right rib fracture Discharge Exam General- oriented x 3, not in distress, speaks in sentences with no effort or accessory muscle use Eyes- anicteric Neck- no JVD Lungs- clear breath sounds bilaterally, no crackles Heart- normal rate, regular rhythm; no murmurs Abdomen- normal bowel sounds, not distended, soft, no tenderness Extremities- no pretibial edema, no calf tenderness Neuro- alert, oriented x 3; no gross focal neurologic deficits Skin- warm & dry Discharge Data Allergies Allergy/AdvReac Type Severity Reaction Status Date / Time banana Allergy Intermediate RASH, Verified 07/16/22 10:00 THROAT SLIGHTLY SWOLLEN Penicillins Allergy Unknown HAPPENED Verified 07/16/22 10:00 A CHILD Consultations 06/30/22 15:15 ED Decision to Admit Stat 06/30/22 17:42 Consult Gastroenterology Routine 07/09/22 14:20 Consult Pain Management Routine Procedures Performed Operation Date: 07/16/22 16:30 Actual Procedures p Esophagogastroduodenoscopy - Anabela Galarza MD s Colonoscopy Polypectomy - Anabela Galarza MD Ordered Studies 06/30/22 12:16 CT head/brain wo con Stat 06/30/22 13:14 CT abd pelvis wo con Stat CT chest diagnostic wo con Stat 06/30/22 13:22 CT lumbar spine wo con Stat CT thoracic spine wo con Stat 06/30/22 13:28 CT cervical spine wo con Stat 07/03/22 14:32 CT abd pelvis IV con only Urgent 07/07/22 07:43 US abdomen ltd ascites Routine 07/09/22 09:15 CT head/brain wo con Stat 07/14/22 10:54 US abdomen ltd ascites Urgent Hospital Course (1) Fall: - s/p fall in shower in setting of possible ETOH intoxication - Head CT, cervical spine, thoracic, lumbar, abd/pelvis, chest CTs performed - evidence of acute nondisplaced fractures involving the posterior medial aspects of the right ninth and 10th ribs. Otherwise no traumatic injuries noted - Has not used IV Dilaudid for the past 3 days now - gabapentin tapered off - Continue baclofen as this is helping as per patient - will slowly tape - holding Toradol due to VAN - continue Voltaren gel - oxycodone back to q6 but down to 5mg only due to VAN and risk of VAN will avoid NSAIDs - discharged with 2 days of oxycodone and close follow up with PCP - strongly advised not to mix alcohol while taking opioids, patient verbalized understanding - has PCP follwo up 07/24/2022 at 11AM (2) VAN (acute kidney injury): - possibly in the setting of NSAID use with toradol - stopped - trend Cr - avoid further nephrotoxic medications - Cr near baseline (3) Hemoptysis: - unclear if true hemoptysis as patient did not have coughing or regurgitation prior to blood in spit - no obvious lesions noted in oral cavity - denies melena - hgb stable - vitals stable - will monitor for now - INR stable at 1.2 - no more episodes of hemoptysis (4) Closed rib fracture: - noted - continue IS (5) Alcohol use disorder: - patient recently relapsed - stressed importance of abstinence - would like to follow up outpatient rehab programs (6) Generalized anxiety disorder: - noted, continue home meds (7) Cirrhosis: - Patient with history of cirrhosis, following with [facility] - Left 2-month inpatient alcohol treatment facility 4 days [facility] and resumed drinking the day before arrival - 07/14/2022 - Abdominal ultrasound: No ascites - restarted lasix and aldactone now that VAN resolved - Hematochezia reported overnight, 07/15/2022 - s/p for EGD, colonoscopy 07/16/2022 with possible source of bleeding found to have hemorrhoid - hgb stable - Bowel regimen for hemorrhoid (8) Depression: - Patient reports that she has been taking Zoloft and Wellbutrin prior to admission - Zoloft and Wellbutrin restarted 07/14 - monitor qtc on ECG (9) Asthma: - continue inhalers Plan DVT Ppx: SCDs - Encouraged to ambulate frequently, patient verbalized understanding Code status: FULL PCP: Ritu Dispo: telemetry Shola Friend MD [facility] Total Time Total Time Spent Total Time Spent (In Minutes): 25 Total Time Includes: Examination of the Patient, Discharge Planning and Medication Reconciliation Discharge Plan Discharge Items Patient Disposition: Home - Self-Care Reason For Visit: FALL, ALCOHOL INTOXICATION, VAN Discharge Diagnosis: right rib fracture Activity: As commented below Activity Comment: as tolerated Non-emergency contact: Primary Care Provider Call non-emergency contact if: you have any medication questions Follow-up/Referrals: Zaina Bunch MD [Primary Care Provider] - 07/24/22 11:00 am (Date & Time 07/24/2022 11:00 AM Provider Zaina Bunch MD Department General Internal Medicine [facility] ) Diet: Low Sodium (2gm) Addtl Attending Provider Instructions: You were admitted after a fall and found to have rib fracture on the right that was nondisplaced and did not require surgical intervention. You were treated for pain management while you were here with multiple types of pain medication. You had Toradol but had issues with your kidney function so this was discontinued. You will be discharged with a small amount of narcotic medications and must be very careful with drinking alcohol while on these pain medications. You will need to follow up closely with your primary care doctor for further discussion of pain management and medications. You should restart your Lasix and Aldactone (spironolactone) medications tomorrow 07/23/2022. Pending Studies at Discharge: No Stand-Alone Forms: My [facility], Smoking Cessation Medications and DC Order Prescriptions: New bupropion HCl 150 mg Tablet Sustained-Release 12 Hr 150 mg PO DAILY Qty: 10 0RF polyethylene glycol 3350 [Miralax] 17 gram Powder In Packet 17 g PO DAILY PRN (Reason: constipation) Qty: 14 0RF baclofen 10 mg Tablet 5 mg PO BID Qty: 6 0RF docusate sodium 100 mg Capsule 100 mg PO BID Qty: 30 0RF bisacodyl [Gentle Laxative (bisacodyl)] 5 mg Tablet,Delayed Release (Dr/Ec) 5 mg PO BID PRN (Reason: constipation) Qty: 30 0RF sertraline 50 mg Tablet 50 mg PO QAM Qty: 10 0RF nicotine 7 mg/24 hr Patch 24 Hour 14 mg transdermal QAM Qty: 7 0RF oxycodone 5 mg Tablet 5 mg PO Q6H PRN (Reason: pain) Qty: 8 0RF nitrofurantoin monohyd/m-cryst 100 mg Capsule 100 mg PO BID Qty: 4 0RF diclofenac sodium [Voltaren Arthritis Pain] 1 % Gel 4 g EXT TID Qty: 100 0RF hydrocortisone acetate [Anusol-HC] 25 mg Suppository 25 mg MN Q8 PRN (Reason: hemorrhoids) Qty: 12 0RF lidocaine 5 % Adhesive Patch,Medicated 1 patch transdermal QAM Qty: 15 0RF Continued albuterol sulfate [ProAir HFA] 90 mcg/actuation Hfa Aerosol Inhaler 2 inh INHALATION BID PRN (Reason: Shortness Of Breath) Rx Instructions: Is ordered 2 puffs q 4hrs prn for wheezing, patient takes 2 puffs bid. omeprazole 20 mg Capsule,Delayed Release(Dr/Ec) 20 mg PO QAM montelukast 10 mg Tablet 10 mg PO HS dextroamphetamine-amphetamine [Adderall] 5 mg Tablet 5 mg PO BID loratadine 10 mg Tablet 10 mg PO QAM budesonide-formoterol [Symbicort] 160-4.5 mcg/actuation Hfa Aerosol Inhaler 2 puff INHALATION BID Combivent Respimat 20-100 mcg/actuation Mist 1 puff INHALATION BID multivitamin Tablet 1 tab PO QAM azelastine 137 mcg (0.1 %) Aerosol,Union 1 spray INTRANASAL BID fluticasone propionate 50 mcg/actuation Union,Suspension 2 spray INTRANASAL BID ascorbic acid (vitamin C) [Vitamin C] 500 mg Tablet 500 mg PO QAM cholecalciferol (vitamin D3) [Vitamin D3] 50 mcg (2,000 unit) Capsule 2,000 mcg PO QAM spironolactone 100 mg tablet 200 mg PO QAM hydroxyzine HCl 25 mg tablet 25 mg PO TID PRN (Reason: Anxiety) Spiriva Respimat 2.5 mcg/actuation mist 2 puff INHALATION BID magnesium oxide 400 mg (241.3 mg magnesium) tablet 400 mg PO BID Rx Instructions: take 2 hours before or after Phospha 250 neutral. potassium chloride 20 mEq tablet extended release 20 meq PO QAM Phospha 250 Neutral 250 mg tablet 2 tab PO QID ondansetron HCl 4 mg Tablet 4 mg PO Q8H PRN (Reason: Nausea) thiamine HCl (vitamin B1) 100 mg Tablet 100 mg PO QAM Qty: 30 0RF lactulose 10 gram/15 mL Solution 30 ml PO QAM nicotine 14 mg/24 hr Patch 24 Hour 1 patch TRANSDERMAL DAILY Changed furosemide [Lasix] 40 mg Tablet 40 mg PO QAM Qty: 30 0RF Discharge Orders: Discharge Order (Routine); Ordered 07/22/22 Ordered By: Shola Friend Admission Data Admit Date/Time: 06/30/22 15:26 Attending Provider: Shola Friend Admit Provider: Stephany Magdaleno Primary Care Provider: Zaina Bunch Other Providers: Barry Rabago ; Hellen Mayfield ; Stephany Magdaleno ; Lavon Salcido ; Mkie Patterson Other Interventions: Discharge Summary Assessment (RN) Last Done: 07/22/22 11:52
== END 2022-07-22 14:31 | disposition home or self-care (01) | DRG 683 ==
LOC: ED 11:53 → SUATTDRO 15:26 → 4W 15:26 → 3E 07-09 20:45

== ENCOUNTER 2023-09-15 21:20 | Observation (INO) ==
[2023-09-15] MEDS ORDERED: ONDANSETRON INJ 2 MG/ML 2 ML VIAL IV STA (21:48)
[2023-09-15 22:03] LABS: Basophils # (auto) 0.04 K/uL (0.00-0.20); Basophils % (auto) 0.6 %; Hematocrit (blood only) 23.3 % (37.0-47.0); Immature Granulocytes # (auto) 0.02 K/uL (0.01-0.20); Immature Granulocytes % (auto) 0.3 %; Lymphocytes # (auto) 1.19 K/uL (1.20-3.40); Lymphocytes % (auto) 17.3 %; Mean Corpuscular Hemoglobin 33.3 pg (25.0-34.0); Mean Corpuscular Hgb Conc 34.3 g/dL (32.0-36.0); Mean Corpuscular Volume 97.1 fL (80.0-100.0); Mean Platelet Volume 12.7 fL (9.4-12.4); Monocytes # (auto) 0.64 K/uL (0.11-0.59); Monocytes % (auto) 9.3 %; Neutrophils # (auto) 4.97 K/uL (1.40-6.50); Neutrophils % (auto) 72.5 %; Nucleated RBC # (auto) 0.02 K/uL (0.00-0.12); Nucleated RBC % (auto) 0.3 %; Platelet Count 44 K/uL (130-400); RDW Coefficient of Variation 15.2 % (11.5-14.5); RDW Standard Deviation 53.9 fL (36.4-46.3); White Blood Count 6.86 K/ul (4.8-10.8)
[2023-09-15] MEDS ORDERED: SODIUM CHLORIDE 0.9% 250 ML IV PRN ×2 (22:18→22:36)
[2023-09-15] MEDS ORDERED: PANTOPRAZOLE BOLUS/DRIP IV STA (22:18)
[2023-09-15] MEDS ORDERED: PANTOprazole 80 MG in DEXTROSE 5% 100 ML IV ONE (22:18)
[2023-09-15 22:20] LABS: Albumin Globulin Ratio 1.2 (0.9-2); Albumin Level 3.6 gm/dl (3.4-5.0); BUN Creatinine Ratio 31.8 (10-20); Bilirubin,Total 3.1 mg/dl (0.2-1.0); Calcium 8.4 mg/dl (8.6-10.3); Creatinine Clr Calc Pharmacy 73.6 ml/min; Est GFR (Non-African American) 84.5 ml/min; Globulin 3.1 gm/dl (2.5-4.0); Potassium 2.8 mmol/L (3.5-5.1); Total Protein 6.7 gm/dl (6.0-8.3)
--- NOTE | 2023-09-15 22:21 | Emergency Department Note ---
Impression & Plan Acute GI bleeding, Alcohol abuse, Symptomatic anemia ED Provider Note NAME: CARMEN BOUCHER AGE: 38 SEX: F : 1985 ARRIVES VIA: Walk-In INFORMANT: Patient, ED PROVIDER(S): Jacob Johnson MD CHIEF COMPLAINT: Vomiting blood MEDICAL DECISION MAKING: Patient presents due to concern for vomiting blood as well as possible blood in the stool. IV was established and blood work was obtained. The patient was noted to be hypotensive and tachycardic. Patient's blood work does show a hemoglobin of 8 which is an acute change. The patient was ordered 1 unit of uncrossed PRBCs to be given emergently. The patient was consented for this blood was ordered 2 additional units. The patient was also ordered PPI bolus and drip in addition to octreotide bolus and drip. Patient was also ordered CIWA protocol and 500 of IV fluids as well as a banana bag. Patient does have thrombocytopenia which is chronic. Patient's kidney function is unremarkable but with prerenal azotemia. Mild hypercalcemia noted. Bilirubin to 3.1. Potassium of 2.8. Magnesium was added and the patient was ordered replete meant. Alcohol negative. Given these concerns I did speak with the on-call hospitalist Dr. Russo and the patient was admitted to the medicine service. Critical Care: I have personally spent 55 minutes of critical care time in direct management of this patient. This includes bedside care, interpretation of diagnostic studies, and testing, discussion with consultants, patient, and family members, and other require inpatient management activities. This 55 minutes is in excess of all separately billable procedures. Discussion w/ other healthcare providers: Dr. Russo inpatient medicine service Prior /Outside records reviewed: I reviewed the EGD from Dr. Bañuelos from October 16, 2022. The patient was seen due to concern for nausea and vomiting. Patient was noted to have grade 1 and small esophageal varices with no bleeding and no stigmata of recent bleeding. Portal hypertensive gastropathy no gastric varices at that time. I also reviewed a discharge summary from Dr. Truong from July 2022. Known history of alcoholic cirrhosis and ascites alcohol dependence. Patient was seen at that time due to concern for a fall. Patient had reported hemoptysis does have a history of cirrhosis. There was some hematochezia that was noted. Status post EGD and colonoscopy on July 16 that time with possible source of bleeding found to have hemorrhoid. Differential diagnosis: Diverticulitis, AVM, coagulopathy, colitis, inflammatory bowel disease, malignancy, esophagitis, peptic ulcer disease, variceal bleed, gastritis, fissure, hemorrhoids, as well as other pathologies. Diagnostics, as interpreted by me: ECG: None Cardiac monitoring: An order was placed for continuous cardiac monitoring. The monitor shows a rate of 102 with tachycardic and right rhythm. Patient was placed on pulse oximetry Medical decision rules: None Imaging studies: None HPI: Patient presents due to concern for vomiting blood as well as blood in the stool. Patient states this began last evening is then been persistent throughout the day. The patient states that she passed . The patient states that she does have a known history of alcoholic cirrhosis but only drinks once per week. The patient denies any chest pains or shortness of breath. The patient has had nausea and associated vomiting. Mild upper abdominal discomfort but she thinks that this is likely related to the vomiting. Patient is also noted some blood in her stool. Patient does not take blood thinning medications. PAST MEDICAL HISTORY: See Below PAST SURGICAL HISTORY: See Below SOCIAL HISTORY: See Below HOME MEDICATIONS: See Below ALLERGIES: See Below VITALS: See Below PHYSICAL EXAMINATION: GENERAL: Mildly ill but nontoxic EYE EXAM: Scleral icterus noted. PERRL, no anisocoria and EOM's grossly intact w/o pain. OROPHARYNX: Moist mucus membranes, grossly normal dentition. NECK: Supple, no nuchal rigidity, no adenopathy, non-tender. No signs of meningismus. FROM of the neck with good chin to chest and neck extension. No stridor. LUNGS: Clear to auscultation. Normal chest wall mechanics. HEART: Tachycardic and regular, no MRG. ABDOMEN: Abdomen soft, non-tender, no masses, no rebound or guarding. BACK: No CVA TTP. SKIN: No rashes and no bruising. UPPER EXTREMITIES: Upper extremities are grossly normal. LOWER EXTREMITIES: Grossly normal, no edema. NEURO EXAM: A&O x3, cranial nerves II-XII grossly intact, normal speech, moves all 4 extremities. Past Med/Surg History Medical History History of COVID-19 early 2019, tested thru hospital at [place], hospitalized during covid; fatigue, body aches, decreased appetite>resolved. Hemoptysis "sometimes still has this" Acute chest wall pain hx-"from a recent fall where she broke some ribs" Fall 06/2022, fx ribs VAN (acute kidney injury) hx Portal hypertension Alcoholic cirrhosis with abn coags Anemia pre-op H&H 04/15/22: 05/15 History of pancreatitis alcoholic 05/2021 per records GERD (gastroesophageal reflux disease) Pneumonia February 2022 treated at [facility]. denies sob currently Thrombocytopenia Jaundice hx-"not very much now" Acute on chronic alcoholic liver disease "currently trying to get on the transplant list" Decompensated hepatic cirrhosis Hypokalemia Acute hyponatremia Hypomagnesemia Hyperbilirubinemia Rectal bleeding "a little when she's constipated" Alcohol abuse with withdrawal Fatty liver Depression Alcoholic hepatitis Anxiety ADD (attention deficit disorder) Asthma well controlled with inhalers Alcohol abuse Surgical History Hx of colonoscopy History of vascular access device 04/2022, [facility] H/O wisdom tooth extraction History of esophagogastroduodenoscopy (EGD) History of abdominal paracentesis Family History Grandmother Breast cancer Grandfather Heart disease Other No family history of adverse response to anesthesia Social History Smoking Status: Never smoker Tobacco Type: Cigarettes Cigarettes Per Day: 1-2; Second Hand Exposure: No; Do You Dip or Chew Tobacco: No; Hx Alcohol Use: Yes Alcohol type: hard liquor Hx Substance Use: No Preferred Language: Amharic 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 Ability: Effective Restoration Officer Required: No Beliefs That Will Affect Care: None marital status: Single Current Living Situation: Family Current Living Situation Comment: Apartment current occupational status: employed How many Children do You have: 0 Feels Safe at Home: Yes Assistive Devices: None Allergies Allergies Allergy/AdvReac Type Severity Reaction Status Date / Time banana Allergy Intermediate RASH, Verified 09/16/23 01:13 THROAT SLIGHTLY SWOLLEN Penicillins Allergy Unknown HAPPENED Verified 09/16/23 01:13 A CHILD Home Meds Home Medications Medication Instructions Recorded Confirmed albuterol sulfate 90 mcg/actuation 2 inh inhalation BID PRN Shortness 06/24/20 09/16/23 aerosol inhaler (ProAir HFA) Of Breath budesonide-formoterol HFA 160 2 puff inhalation BID 06/20/21 09/16/23 mcg-4.5 mcg/actuation aerosol inhaler (Symbicort) dextroamphetamine-amphetamine 5 mg 5 mg PO AMHS 06/20/21 09/16/23 tablet (Adderall) ipratropium 20 mcg-albuterol 100 1 puff inhalation BID 06/20/21 09/16/23 mcg/actuation mist for inhalation (Combivent Respimat) loratadine 10 mg tablet 10 mg PO QAM 06/20/21 09/16/23 montelukast 10 mg tablet 10 mg PO HS 06/20/21 09/16/23 omeprazole 20 mg capsule,delayed 20 mg PO QAM 06/20/21 09/16/23 release fluticasone propionate 50 2 spray intranasal QAM PRN 10/03/21 09/16/23 mcg/actuation nasal allergies spray,suspension multivitamin 1 tab PO QAM 10/03/21 09/16/23 ondansetron HCl 4 mg tablet 4 mg PO Q8H PRN Nausea 10/31/21 09/16/23 ascorbic acid (vitamin C) 500 mg 500 mg PO QAM 01/31/22 09/16/23 tablet (Vitamin C) cholecalciferol (vitamin D3) 50 0 mcg PO QAM 01/31/22 09/16/23 mcg (2,000 unit) capsule (Vitamin D3) hydroxyzine HCl 25 mg tablet 25 mg PO TID PRN Anxiety 01/31/22 09/16/23 magnesium oxide 400 mg (241.3 mg 400 mg PO BID 03/25/22 09/16/23 magnesium) tablet potassium chloride 20 mEq 20 meq PO QAM 03/25/22 09/16/23 tablet,extended release sodium di- and 2 tab PO QID 03/25/22 09/16/23 monophosphate-potassium phos monobasic 250 mg tablet (Phospha Neutral) diclofenac sodium 1 % topical gel 4 g topical TID PRN Pain 10/14/22 09/16/23 (Voltaren Arthritis Pain) metoclopramide HCl 10 mg tablet 10 mg PO AMHS PRN Nausea 01/07/23 09/16/23 folic acid 1 mg tablet 1 mg PO QAM 09/16/23 09/16/23 promethazine 12.5 mg tablet 12.5 mg PO Q6 PRN Nausea 09/16/23 09/16/23 sertraline 100 mg tablet 100 mg PO QAM 09/16/23 09/16/23 tiotropium bromide 2.5 2 puff inhalation QAM 09/16/23 09/16/23 mcg/actuation mist for inhalation (Spiriva Respimat) Previous Rx's Medication Instructions Recorded thiamine HCl (vitamin B1) 100 mg 100 mg PO QAM #30 tabs 03/23/22 tablet Results & Data (ED) Vital Signs Vital Signs - 24 hr 09/15/23 21:23 09/15/23 22:08 09/15/23 22:18 Temperature 36.9 C Temperature Source Temporal Artery Scan Pulse Rate 101 H 120 H Pulse Rate [Finger] 123 H Pulse Rate from SpO2 Sensor Pulse Rhythm Regular Pulse Strength Normal Respiratory Rate 20 18 19 Respiratory Effort / Characteristics Non-Labored Spontaneous Non-Labored Spontaneous Respiratory Depth Normal Normal Respiratory Pattern Regular Regular Blood Pressure Blood Pressure [Right Arm] 77/56 L Blood Pressure Mean Blood Pressure Mean [Right Arm] 63 Blood Pressure Position [Right Arm] Semi-fowlers Pulse Oximetry 95 98 Oxygen Delivery Method Room Air Room Air Sepsis Recent Fever Within 48 Hours No Sepsis New/Unexplained Change in Mental Status No Sepsis Action Taken by Nursing No Action Required 09/15/23 22:20 09/15/23 22:20 09/15/23 22:22 Temperature Temperature Source Pulse Rate 120 H 114 H Pulse Rate [Finger] Pulse Rate from SpO2 Sensor 120 H Pulse Rhythm Pulse Strength Respiratory Rate 17 Respiratory Effort / Characteristics Respiratory Depth Respiratory Pattern Blood Pressure 94/65 L Blood Pressure [Right Arm] Blood Pressure Mean 75 Blood Pressure Mean [Right Arm] Blood Pressure Position [Right Arm] Pulse Oximetry 99 Oxygen Delivery Method Sepsis Recent Fever Within 48 Hours Sepsis New/Unexplained Change in Mental Status Sepsis Action Taken by Nursing 09/15/23 22:30 09/15/23 22:30 09/15/23 22:30 Temperature Temperature Source Pulse Rate 108 H Pulse Rate [Finger] Pulse Rate from SpO2 Sensor 108 H Pulse Rhythm Pulse Strength Respiratory Rate 17 Respiratory Effort / Characteristics Respiratory Depth Respiratory Pattern Blood Pressure 96/67 L 96/67 L Blood Pressure [Right Arm] Blood Pressure Mean 73 73 Blood Pressure Mean [Right Arm] Blood Pressure Position [Right Arm] Pulse Oximetry 100 Oxygen Delivery Method Sepsis Recent Fever Within 48 Hours Sepsis New/Unexplained Change in Mental Status Sepsis Action Taken by Nursing 09/15/23 22:40 09/15/23 22:45 09/15/23 22:45 Temperature Temperature Source Pulse Rate 110 H 103 H Pulse Rate [Finger] Pulse Rate from SpO2 Sensor 112 H 102 H Pulse Rhythm Pulse Strength Respiratory Rate 15 15 Respiratory Effort / Characteristics Respiratory Depth Respiratory Pattern Blood Pressure 90/67 L Blood Pressure [Right Arm] Blood Pressure Mean 73 Blood Pressure Mean [Right Arm] Blood Pressure Position [Right Arm] Pulse Oximetry 99 100 Oxygen Delivery Method Sepsis Recent Fever Within 48 Hours Sepsis New/Unexplained Change in Mental Status Sepsis Action Taken by Nursing 09/15/23 22:46 09/15/23 22:50 09/15/23 23:00 Temperature 37.5 C 37.6 C H Temperature Source Oral Oral Pulse Rate 101 H 102 H 100 H Pulse Rate [Finger] Pulse Rate from SpO2 Sensor 101 H Pulse Rhythm Pulse Strength Respiratory Rate 19 19 15 Respiratory Effort / Characteristics Respiratory Depth Respiratory Pattern Blood Pressure 90/67 L 99/71 L Blood Pressure [Right Arm] Blood Pressure Mean 74 80 Blood Pressure Mean [Right Arm] Blood Pressure Position [Right Arm] Pulse Oximetry 100 100 100 Oxygen Delivery Method Sepsis Recent Fever Within 48 Hours Sepsis New/Unexplained Change in Mental Status Sepsis Action Taken by Nursing 09/15/23 23:00 09/15/23 23:00 09/15/23 23:14 Temperature 37.2 C Temperature Source Oral Pulse Rate 100 H 101 H Pulse Rate [Finger] Pulse Rate from SpO2 Sensor 100 H Pulse Rhythm Pulse Strength Respiratory Rate 13 15 Respiratory Effort / Characteristics Respiratory Depth Respiratory Pattern Blood Pressure 99/71 L 108/71 Blood Pressure [Right Arm] Blood Pressure Mean 82 83 Blood Pressure Mean [Right Arm] Blood Pressure Position [Right Arm] Pulse Oximetry 100 99 Oxygen Delivery Method Sepsis Recent Fever Within 48 Hours Sepsis New/Unexplained Change in Mental Status Sepsis Action Taken by Nursing 09/15/23 23:43 Temperature 37.6 C H Temperature Source Oral Pulse Rate 99 H Pulse Rate [Finger] Pulse Rate from SpO2 Sensor Pulse Rhythm Pulse Strength Respiratory Rate 12 Respiratory Effort / Characteristics Respiratory Depth Respiratory Pattern Blood Pressure 120/80 Blood Pressure [Right Arm] Blood Pressure Mean 93 Blood Pressure Mean [Right Arm] Blood Pressure Position [Right Arm] Pulse Oximetry 100 Oxygen Delivery Method Sepsis Recent Fever Within 48 Hours Sepsis New/Unexplained Change in Mental Status Sepsis Action Taken by Shelter Medications Current Medication List: was personally reviewed by me Laboratory Data Attestation: I reviewed the patient's lab results. 09/16/23 13:17 09/16/23 13:16 Lab Results 09/15/23 09/15/23 Range/Units 21:49 22:42 WBC 6.86 (4.8-10.8) K/ul RBC 2.40 L (4.20-5.40) M/uL Hgb 8.0 L (12.0-16.0) g/dl Hct 23.3 L (37.0-47.0) % MCV 97.1 (80.0-100.0) fL MCH 33.3 (25.0-34.0) pg MCHC 34.3 (32.0-36.0) g/dL RDW Std Deviation 53.9 H (36.4-46.3) fL RDW Coeff of Yasmine 15.2 H (11.5-14.5) % Plt Count 44 L (130-400) K/uL MPV 12.7 H (9.4-12.4) fL Immature Gran % (Auto) 0.3 % Neut % (Auto) 72.5 % Lymph % (Auto) 17.3 % [place] % (Auto) 9.3 % Eos % (Auto) 0.0 % Baso % (Auto) 0.6 % Neut # (Auto) 4.97 (1.40-6.50) K/uL Lymph # (Auto) 1.19 L (1.20-3.40) K/uL [place] # (Auto) 0.64 H (0.11-0.59) K/uL Eos # (Auto) 0.00 (0.00-0.50) K/uL Baso # (Auto) 0.04 (0.00-0.20) K/uL Immature Gran # (Auto) 0.02 (0.01-0.20) K/uL Absolute Nucleated RBC 0.02 (0.00-0.12) K/uL Nucleated RBC % (auto) 0.3 % Sodium 139 (136-145) mmol/L Potassium 2.8 L (3.5-5.1) mmol/L Chloride 95 L (98-107) mmol/L Carbon Dioxide 29 (21-32) mmol/L Anion Gap 15 H (3-11) BUN 28 H (6-23) mg/dl Creatinine 0.88 (0.6-1.2) mg/dl Est Cr Clr Drug Dosing 73.6 ml/min Est GFR ( Amer) 98.0 ml/min Est GFR (Non-Af Amer) 84.5 ml/min BUN/Creatinine Ratio 31.8 H (10-20) Glucose 133 H (70-99(Fasting)) mg/dl Calcium 8.4 L (8.6-10.3) mg/dl Magnesium 1.1 L (1.7-2.4) mg/dl Total Bilirubin 3.1 H (0.2-1.0) mg/dl AST 86 H (13-39) U/L ALT 33 (7-52) U/L Alkaline Phosphatase 384 H (34-104) U/L Total Protein 6.7 (6.0-8.3) gm/dl Albumin 3.6 (3.4-5.0) gm/dl Globulin 3.1 (2.5-4.0) gm/dl Albumin/Globulin Ratio 1.2 (0.9-2) Lipase 22 (11-82) U/L HCG, Qual Negative (Negative) Ethyl Alcohol mg/dL < 10.0 (<10.0) mg/dl Blood Type O Positive Antibody Screen NEGATIVE Crossmatch See Detail Administered Medications Discontinued Medications Albuterol (Albuterol Hfa 8 Gm Inhaler (Combivent Respimat P&T Subs)) 1 puffs INH BIDR JUAN; Protocol Stop: 10/16/23 06:59 Last Admin: 09/16/23 06:56 Dose: 1 puffs Documented By: EM Fentanyl Citrate (Fentanyl Citrate 2,500 Mcg/250 Ml Bag) Confirm Administered Dose 2,500 mcg IV .STK-MED ONE Stop: 09/16/23 13:06 Last Admin: 09/16/23 13:37 Dose: Not Given Documented By: ES Fluticasone/Vilanterol (Fluticasone/Vilanterol 200/25mcg 14 Puffs/Inhaler) 1 puffs INH DAILY JUAN Stop: 10/16/23 08:59 Last Admin: 09/16/23 09:28 Dose: 1 puffs Documented By: WHIT(2) Pantoprazole Sodium 80 mg/ (Dextrose) 120 mls @ 480 mls/hr IV NOW ONE Stop: 09/15/23 22:32 Last Infusion: 09/15/23 22:54 Dose: Infused Documented By: Admin: 09/15/23 22:40 Dose: 480 mls/hr Documented By: YUE Pantoprazole Sodium 40 mg/ (Dextrose) 100 mls @ 20 mls/hr IV Q5H JUAN Stop: 10/15/23 22:44 Last Admin: 09/16/23 13:37 Dose: 8 mg/hr, 20 mls/hr Documented By: Infusion: 09/16/23 12:56 Dose: Infused Documented By: Admin: 09/16/23 07:56 Dose: 8 mg/hr, 20 mls/hr Documented By: Infusion: 09/16/23 07:56 Dose: Infused Documented By: Admin: 09/16/23 03:15 Dose: 8 mg/hr, 20 mls/hr Documented By: Infusion: 09/16/23 03:15 Dose: Infused Documented By: Admin: 09/15/23 22:51 Dose: 8 mg/hr, 20 mls/hr Documented By: YUE Octreotide Acetate 500 mcg/ (Sodium Chloride) 100.5 mls @ 10.05 mls/hr IV .Q10H JUAN Stop: 10/15/23 22:44 Last Admin: 09/16/23 07:58 Dose: 50 mcg/hr, 10.1 mls/hr Documented By: Infusion: 09/16/23 07:58 Dose: Infused Documented By: Admin: 09/15/23 23:18 Dose: 50 mcg/hr, 10.1 mls/hr Documented By: ENRRIQUE Octreotide Acetate 50 mcg/ (Syringe) 9.5 mls @ 3 mls/min IV NOW STA Stop: 09/15/23 22:39 Last Admin: 09/15/23 23:18 Dose: 3 mls/min Documented By: ENRRIQUE Multivitamins 10 ml/ Thiamine HCl 100 mg/ Folic Acid 1 mg/Sodium Chloride 1,011.2 mls @ 500 mls/hr IV .Q2H2M ONE Stop: 09/16/23 00:41 Last Infusion: 09/16/23 02:55 Dose: Infused Documented By: Admin: 09/15/23 23:17 Dose: 500 mls/hr Documented By: ENRRIQUE Lorazepam 1 mg/ Syringe 1 mls @ 2 mls/min IV UD PRN; Protocol PRN Reason: EtOH Withdrawal AWSS Score 6,7 Stop: 10/15/23 23:25 Last Admin: 09/16/23 00:07 Dose: 2 mls/min Documented By: MONSTER Potassium Chloride (K Rivera / Wtr) 10 meq in 100 mls @ 100 mls/hr IV Q1H [facility] Stop: 09/16/23 02:14 Last Infusion: 09/16/23 03:34 Dose: Infused Documented By: Admin: 09/16/23 02:23 Dose: 100 mls/hr Documented By: Infusion: 09/16/23 02:23 Dose: Infused Documented By: Admin: 09/16/23 01:22 Dose: 100 mls/hr Documented By: MONSTER Sodium Chloride (Nss) 1,000 mls @ 50 mls/hr IV .Q20H [facility] Stop: 10/16/23 02:19 Last Admin: 09/16/23 03:15 Dose: 50 mls/hr Documented By: ENRRIQUE Thiamine HCl 100 mg/ Syringe 10 mls @ 2 mls/min IV QAM [facility] Stop: 10/16/23 08:59 Last Admin: 09/16/23 07:59 Dose: 2 mls/min Documented By: LORNA Folic Acid 1 mg/ Syringe 10 mls @ 5 mls/min IV QAM [facility] Stop: 10/16/23 08:59 Last Admin: 09/16/23 07:59 Dose: 5 mls/min Documented By: LORNA Magnesium Sulfate/Dextrose (Magnesium Sulfate / D5w) 1 gm in 100 mls @ 50 mls/hr IV Q2H [facility] Stop: 09/16/23 13:29 Last Infusion: 09/16/23 14:08 Dose: Infused Documented By: Admin: 09/16/23 13:37 Dose: 50 mls/hr Documented By: Infusion: 09/16/23 13:21 Dose: Infused Documented By: Admin: 09/16/23 11:21 Dose: 50 mls/hr Documented By: MARIA EUGENIA Infusion: 09/16/23 11:21 Dose: Infused Documented By: MARIA EUGENIA Admin: 09/16/23 09:31 Dose: 50 mls/hr Documented By: WHIT(2) Infusion: 09/16/23 07:51 Dose: Infused Documented By: Admin: 09/16/23 05:41 Dose: 50 mls/hr Documented By: MONSTER Potassium Chloride (K Rivera / Wtr) 10 meq in 100 mls @ 100 mls/hr IV Q1H JUAN Stop: 09/16/23 08:29 Last Infusion: 09/16/23 09:27 Dose: Infused Documented By: WHIT(2) Admin: 09/16/23 07:55 Dose: 100 mls/hr Documented By: Infusion: 09/16/23 07:52 Dose: Infused Documented By: Admin: 09/16/23 06:50 Dose: 100 mls/hr Documented By: Infusion: 09/16/23 06:49 Dose: Infused Documented By: Admin: 09/16/23 05:50 Dose: 100 mls/hr Documented By: MONSTER Ceftriaxone Sodium 2,000 mg/ (Dextrose) 50 mls @ 100 mls/hr IV Q24H JUAN; Protocol Stop: 09/26/23 07:59 Last Infusion: 09/16/23 08:37 Dose: Infused Documented By: Admin: 09/16/23 08:04 Dose: 100 mls/hr Documented By: LORNA Norepinephrine Bitartrate (Levophed/D5w) 4 mg in 250 mls @ 11.288 mls/hr IV .Q22H9M JUAN; Protocol Stop: 10/16/23 13:14 Last Titration: 09/16/23 15:15 Dose: 0.05 mcg/kg/min, 11.3 mls/hr Documented By: Titration: 09/16/23 14:16 Dose: 0.07 mcg/kg/min, 15.8 mls/hr Documented By: Titration: 09/16/23 14:08 Dose: 0.09 mcg/kg/min, 20.3 mls/hr Documented By: Admin: 09/16/23 13:37 Dose: 0.05 mcg/kg/min, 11.3 mls/hr Documented By: WHIT Co-signed By: NORMAN Potassium Chloride (K Rivera / Wtr) 20 meq in 100 mls @ 50 mls/hr IV Q2H [facility] Stop: 09/16/23 17:14 Last Admin: 09/16/23 15:42 Dose: 50 mls/hr Documented By: Infusion: 09/16/23 15:36 Dose: Infused Documented By: Admin: 09/16/23 13:36 Dose: 50 mls/hr Documented By: WHIT Propofol (Diprivan) 1,000 mg in 100 mls @ 18.06 mls/hr IV .Q5H33M [facility]; Protocol Stop: 09/19/23 13:14 Last Admin: 09/16/23 15:54 Dose: 50 mcg/kg/min, 18.1 mls/hr Documented By: WHIT Co-signed By: HÉCTOR Titration: 09/16/23 15:54 Dose: Infused Documented By: WHIT Co-signed By: HÉCTOR Titration: 09/16/23 14:08 Dose: 50 mcg/kg/min, 18.1 mls/hr Documented By: Admin: 09/16/23 13:38 Dose: 20 mcg/kg/min, 7.2 mls/hr Documented By: WHIT Co-signed By: NORMAN Fentanyl Citrate (Fentanyl Citrate) 2,500 mcg in 250 mls @ 12.5 mls/hr IV .Q20H [facility]; Protocol Stop: 09/30/23 13:14 Last Titration: 09/16/23 15:15 Dose: 125 mcg/hr, 12.5 mls/hr Documented By: WHIT Co-signed By: [facility] Titration: 09/16/23 14:08 Dose: 100 mcg/hr, 10 mls/hr Documented By: WHIT Co-signed By: AMB Admin: 09/16/23 13:38 Dose: 25 mcg/hr, 2.5 mls/hr Documented By: WHIT Co-signed By: DAJulian Ipratropium [place] (Ipratropium Hfa Inhaler (Combivent Respimat P&T Subs)) 1 puffs INH BIDR [facility]; Protocol Stop: 10/16/23 06:59 Last Admin: 09/16/23 06:57 Dose: 1 puffs Documented By: EM Ondansetron HCl (Ondansetron Inj 2 Mg/Ml 2 Ml Vial) 4 mg IV NOW STA Stop: 09/15/23 21:49 Last Admin: 12/26/23 22:10 Dose: 4 mg Documented By: HERNAN Umeclidinium [place] (Umeclidinium [place] 62.5mcg/Blister 7 Puffs/Inhaler) 1 puffs INH DAILY JUAN Stop: 10/16/23 08:59 Last Admin: 09/16/23 09:28 Dose: 1 puffs Documented By: WHIT(2) Discharge Plan Visit Data Chief Complaint: Vomiting Stated Complaint: VOMITING BLOOD, DIZZY ED Provider: Jacob Johnson Discharge Problem: Acute GI bleeding, Alcohol abuse, Symptomatic anemia Patient Disposition: Admitted As Inpatient Discharge Instructions Interventions: ED Discharge Assessment Last Done: 09/16/23 02:21
[2023-09-15 22:28] LABS: Pregnancy Test, Serum Negative (Negative)
[2023-09-15] MEDS ORDERED: OCTREOTIDE ACETATE 100 MCG in SYRINGE 9 ML IV STA (22:36)
[2023-09-15] MEDS ORDERED: OCTREOTIDE ACETATE IV STA (22:36)
[2023-09-15] MEDS ORDERED: STAT IV/IM STA (22:36)
[2023-09-15] MEDS ORDERED: MULTI-VITAMIN INFUSION 10 ML, THIAMINE HCL 100 MG, FOLIC ACID 1 MG in SODIUM CHLORIDE 0... IV ONE (22:40)
[2023-09-15] MEDS: PANTOprazole 40 MG in DEXTROSE 5% MINI-B 100 ML IV SCH (22:51)
[2023-09-15] MEDS: OCTREOTIDE ACETATE 500 MCG in 0.9 % SODIUM CHLORIDE 100 ML IV SCH (23:18)
[2023-09-15] MEDS ORDERED: Ativan IV Alcohol Withdrawal--Active Protocol IV PRN (23:26)
[2023-09-15] MEDS ORDERED: LORazepam 1 MG in SYRINGE 0.5 ML IV PRN (23:26)
[2023-09-15] MEDS ORDERED: LORazepam 3 MG in SYRINGE 1.5 ML IV PRN (23:26)
[2023-09-15] MEDS ORDERED: LORazepam 2 MG in SYRINGE 1 ML IV PRN (23:26)
[2023-09-16 00:56] LABS: Magnesium 1.1 mg/dl (1.7-2.4)
[2023-09-16] MEDS: POTASSIUM CHLORIDE / WTR 10 MEQ/100 ML PLCT IV SCH ×5 (01:22→07:55)
--- NOTE | 2023-09-16 02:02 | History & Physical Report ---
Date of Service September 16, 2023 Assessment & Plan (1) Hematemesis: Plan: 38-year-old female past med significant for mild intermittent asthma, allergic sinusitis, portal hypertension, alcoholic cirrhosis of liver with ascites, history of decompensated hepatic cirrhosis, iron deficiency anemia due to chronic blood loss, thrombocytopenia, ongoing alcoholism, attention deficit disorder, depression, general anxiety disorder presents with hematemesis starting last night and had several episodes. Patient states since last night she reports 6 episodes of bloody vomiting and also some blood in the stools. Yesterday she had 3 shots of vodka. States lately she is not drinking every day but drinking 5 shots of vodka 2 times a week. Has some headache. Some runny nose. Some sore throat. No shortness of breath or chest pain. Has some abdominal discomfort. Resting comfortably and hemodynamically stable. Feeling hot and cold. Hematemesis Hemoglobin 8 Acute blood loss anemia EGD done in September 2022 showed grade 1 small esophageal varices and portal hypertensive gastropathy. No gastric varices. Normal duodenum Ongoing alcoholism History of alcohol liver cirrhosis Platelets 44 Getting 1 unit of PRBC PPI drip and Sandostatin drip Gentle fluids H&H every 6 hours Close monitor telemetry GI consult Alcoholism States currently drinking 5 shots of vodka 2 times a week Had banana bag in the ER IV Ativan alcohol withdrawal protocol Currently patient n.p.o. IV thiamine and folic acid Close monitor for withdrawals Alcoholic liver cirrhosis Total bilirubin 3.1 Thrombocytopenia from cirrhosis Follow labs closely Monitor for volume overload Depression . Anxiety disorder Holding home p.o. medications Asthma Home inhalers DVT prophylaxis SCDs Disposition Telemetry Full code History of Present Illness Chief Complaint: Hematemesis Primary Care Provider: Zaina Bunch MD 38-year-old female past med significant for mild intermittent asthma, allergic sinusitis, portal hypertension, alcoholic cirrhosis of liver with ascites, history of decompensated hepatic cirrhosis, iron deficiency anemia due to chronic blood loss, thrombocytopenia, ongoing alcoholism, attention deficit disorder, depression, general anxiety disorder presents with hematemesis starting last night and had several episodes. Patient states since last night she reports 6 episodes of bloody vomiting and also some blood in the stools. Yesterday she had 3 shots of vodka. States lately she is not drinking every day but drinking 5 shots of vodka 2 times a week. Has some headache. Some runny nose. Some sore throat. No shortness of breath or chest pain. Has some abdominal discomfort. Resting comfortably and hemodynamically stable. Feeling hot and cold. Past medical history. As mentioned above Past surgical history. Colonoscopy and EGD. Family history. Maternal grandmother had breast cancer and melanoma. Paternal uncle had heart attack. Paternal grandfather had lung cancer. Allergies Allergy/AdvReac Type Severity Reaction Status Date / Time banana Allergy Intermediate RASH, Verified 09/16/23 01:13 THROAT SLIGHTLY SWOLLEN Penicillins Allergy Unknown HAPPENED Verified 09/16/23 01:13 A CHILD Home Medications Medication Instructions Recorded Confirmed Type albuterol sulfate 90 mcg/actuation 2 inh inhalation BID PRN Shortness 06/24/20 09/16/23 History aerosol inhaler (ProAir HFA) Of Breath budesonide-formoterol HFA 160 2 puff inhalation BID 06/20/21 09/16/23 History mcg-4.5 mcg/actuation aerosol inhaler (Symbicort) dextroamphetamine-amphetamine 5 mg 5 mg PO AMHS 06/20/21 09/16/23 History tablet (Adderall) ipratropium 20 mcg-albuterol 100 1 puff inhalation BID 06/20/21 09/16/23 History mcg/actuation mist for inhalation (Combivent Respimat) loratadine 10 mg tablet 10 mg PO QAM 06/20/21 09/16/23 History montelukast 10 mg tablet 10 mg PO HS 06/20/21 09/16/23 History omeprazole 20 mg capsule,delayed 20 mg PO QAM 06/20/21 09/16/23 History release fluticasone propionate 50 2 spray intranasal QAM PRN 10/03/21 09/16/23 History mcg/actuation nasal allergies spray,suspension multivitamin 1 tab PO QAM 10/03/21 09/16/23 History ondansetron HCl 4 mg tablet 4 mg PO Q8H PRN Nausea 10/31/21 09/16/23 History ascorbic acid (vitamin C) 500 mg 500 mg PO QAM 01/31/22 09/16/23 History tablet (Vitamin C) cholecalciferol (vitamin D3) 50 0 mcg PO QAM 01/31/22 09/16/23 History mcg (2,000 unit) capsule (Vitamin D3) hydroxyzine HCl 25 mg tablet 25 mg PO TID PRN Anxiety 01/31/22 09/16/23 History thiamine HCl (vitamin B1) 100 mg 100 mg PO QAM #30 tabs 03/23/22 09/16/23 Rx tablet magnesium oxide 400 mg (241.3 mg 400 mg PO BID 03/25/22 09/16/23 History magnesium) tablet potassium chloride 20 mEq 20 meq PO QAM 03/25/22 09/16/23 History tablet,extended release sodium di- and 2 tab PO QID 03/25/22 09/16/23 History monophosphate-potassium phos monobasic 250 mg tablet (Phospha Neutral) diclofenac sodium 1 % topical gel 4 g topical TID PRN Pain 10/14/22 09/16/23 History (Voltaren Arthritis Pain) metoclopramide HCl 10 mg tablet 10 mg PO AMHS PRN Nausea 01/07/23 09/16/23 History folic acid 1 mg tablet 1 mg PO QAM 09/16/23 09/16/23 History promethazine 12.5 mg tablet 12.5 mg PO Q6 PRN Nausea 09/16/23 09/16/23 History sertraline 100 mg tablet 100 mg PO QAM 09/16/23 09/16/23 History tiotropium bromide 2.5 2 puff inhalation QAM 09/16/23 09/16/23 History mcg/actuation mist for inhalation (Spiriva Respimat) Past Med/Surg History Medical History History of COVID-19 early 2019, tested thru hospital at [place], hospitalized during covid; fatigue, body aches, decreased appetite>resolved. Hemoptysis "sometimes still has this" Acute chest wall pain hx-"from a recent fall where she broke some ribs" Fall 06/2022, fx ribs VAN (acute kidney injury) hx Portal hypertension Alcoholic cirrhosis with abn coags Anemia pre-op H&H 04/15/22: 05/15 History of pancreatitis alcoholic 05/2021 per records GERD (gastroesophageal reflux disease) Pneumonia February 2022 treated at [facility]. denies sob currently Thrombocytopenia Jaundice hx-"not very much now" Acute on chronic alcoholic liver disease "currently trying to get on the transplant list" Decompensated hepatic cirrhosis Hypokalemia Acute hyponatremia Hypomagnesemia Hyperbilirubinemia Rectal bleeding "a little when she's constipated" Alcohol abuse with withdrawal Fatty liver Depression Alcoholic hepatitis Anxiety ADD (attention deficit disorder) Asthma well controlled with inhalers Alcohol abuse Surgical History Hx of colonoscopy History of vascular access device 04/2022, [facility] H/O wisdom tooth extraction History of esophagogastroduodenoscopy (EGD) History of abdominal paracentesis Family History Grandmother Breast cancer Grandfather Heart disease Other No family history of adverse response to anesthesia Social History Smoking Status: Never smoker Tobacco Type: Cigarettes Cigarettes Per Day: 1-2; Second Hand Exposure: No; Do You Dip or Chew Tobacco: No; Hx Alcohol Use: Yes Alcohol type: hard liquor Hx Substance Use: No Preferred Language: Danish 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 Ability: Effective Front Desk Manager Required: No Beliefs That Will Affect Care: None marital status: Single Current Living Situation: Family Current Living Situation Comment: Apartment current occupational status: employed How many Children do You have: 0 Other Information That Helps Us Care for You: No Feels Safe at Home: Yes Safety Concerns: Feels Safe At This Time Assistive Devices: None Review of Systems Review of Systems: All systems reviewed & are unremarkable except as noted in HPI & below Physical Exam Physical Exam: General- Not in distress Head- atraumatic Eyes- PERRL, EOMI. ENT- oropharynx clear Neck- supple, no JVD, Lungs- clear to auscultation no wheezing or crackles. Heart- regular rhythm; no murmur, no gallop. Abdomen- normal bowel sounds, soft, nontender, no distension. Extremities- no pretibial edema, no erythema seen Neuro- alert, oriented x 3; PERRL, no facial palsy; no dysarthria; moves extremities. Skin- warm & dry Results & Data Results & Data Vital Signs (Past 12 Hours) Vital Signs Temp Pulse Pulse Resp BP BP Pulse Ox 09/16/23 01:18 36.8 C 09/16/23 01:18 107 H 14 109/77 98 09/16/23 01:00 102/76 09/16/23 01:00 108 H 27 H 98 09/16/23 00:45 109 H 18 110/72 97 09/16/23 00:30 108 H 20 112/73 96 09/16/23 00:29 37.3 C 09/16/23 00:15 106 H 14 96 09/16/23 00:15 120/75 09/16/23 00:00 110/72 09/16/23 00:00 103 H 17 99 09/16/23 00:00 37.3 C 09/15/23 23:45 121/77 09/15/23 23:45 100 H 16 100 09/15/23 23:43 37.6 C H 99 H 12 120/80 100 09/15/23 23:30 120/80 09/15/23 23:30 101 H 18 99 09/15/23 23:15 104 H 16 98 09/15/23 23:15 108/71 09/15/23 23:14 37.2 C 101 H 15 108/71 99 09/15/23 23:00 100 H 13 100 09/15/23 23:00 99/71 L 09/15/23 23:00 37.6 C H 100 H 15 99/71 L 100 09/15/23 22:50 102 H 19 100 09/15/23 22:46 37.5 C 101 H 19 90/67 L 100 09/15/23 22:45 103 H 15 100 09/15/23 22:45 90/67 L 09/15/23 22:40 110 H 15 99 09/15/23 22:30 108 H 17 100 09/15/23 22:30 96/67 L 09/15/23 22:30 96/67 L 09/15/23 22:22 114 H 09/15/23 22:20 120 H 17 99 09/15/23 22:20 94/65 L 09/15/23 22:18 120 H 19 09/15/23 22:08 123 H 18 77/56 L 98 09/15/23 21:23 36.9 C 101 H 20 95 O2 Del Method 09/16/23 01:18 09/16/23 01:18 09/16/23 01:00 09/16/23 01:00 09/16/23 00:45 09/16/23 00:30 09/16/23 00:29 09/16/23 00:15 09/16/23 00:15 09/16/23 00:00 09/16/23 00:00 09/16/23 00:00 09/15/23 23:45 09/15/23 23:45 09/15/23 23:43 09/15/23 23:30 09/15/23 23:30 09/15/23 23:15 09/15/23 23:15 09/15/23 23:14 09/15/23 23:00 09/15/23 23:00 09/15/23 23:00 09/15/23 22:50 09/15/23 22:46 09/15/23 22:45 09/15/23 22:45 09/15/23 22:40 09/15/23 22:30 09/15/23 22:30 09/15/23 22:30 09/15/23 22:22 09/15/23 22:20 09/15/23 22:20 09/15/23 22:18 09/15/23 22:08 Room Air 09/15/23 21:23 Room Air Diagnostic Findings Laboratory Results WBC 6.86 K/ul (4.8-10.8) 09/15/23 21:49 RBC 2.40 M/uL (4.20-5.40) L 09/15/23 21:49 Hgb 8.0 g/dl (12.0-16.0) L 09/15/23 21:49 Hct 23.3 % (37.0-47.0) L 09/15/23 21:49 MCV 97.1 fL (80.0-100.0) 09/15/23 21:49 MCH 33.3 pg (25.0-34.0) 09/15/23 21:49 MCHC 34.3 g/dL (32.0-36.0) 09/15/23 21:49 RDW Std Deviation 53.9 fL (36.4-46.3) H 09/15/23 21:49 RDW Coeff of Yasmine 15.2 % (11.5-14.5) H 09/15/23 21:49 Plt Count 44 K/uL (130-400) L 09/15/23 21:49 MPV 12.7 fL (9.4-12.4) H 09/15/23 21:49 Immature Gran % (Auto) 0.3 % 09/15/23 21:49 Neut % (Auto) 72.5 % 09/15/23 21:49 Lymph % (Auto) 17.3 % 09/15/23 21:49 [place] % (Auto) 9.3 % 09/15/23 21:49 Eos % (Auto) 0.0 % 09/15/23 21:49 Baso % (Auto) 0.6 % 09/15/23 21:49 Neut # (Auto) 4.97 K/uL (1.40-6.50) 09/15/23 21:49 Lymph # (Auto) 1.19 K/uL (1.20-3.40) L 09/15/23 21:49 [place] # (Auto) 0.64 K/uL (0.11-0.59) H 09/15/23 21:49 Eos # (Auto) 0.00 K/uL (0.00-0.50) 09/15/23 21:49 Baso # (Auto) 0.04 K/uL (0.00-0.20) 09/15/23 21:49 Immature Gran # (Auto) 0.02 K/uL (0.01-0.20) 09/15/23 21:49 Absolute Nucleated RBC 0.02 K/uL (0.00-0.12) 09/15/23 21:49 Nucleated RBC % (auto) 0.3 % 09/15/23 21:49 Sodium 139 mmol/L (136-145) 09/15/23 21:49 Potassium 2.8 mmol/L (3.5-5.1) L 09/15/23 21:49 Chloride 95 mmol/L (98-107) L 09/15/23 21:49 Carbon Dioxide 29 mmol/L (21-32) 09/15/23 21:49 Anion Gap 15 (3-11) H 09/15/23 21:49 BUN 28 mg/dl (6-23) H 09/15/23 21:49 Creatinine 0.88 mg/dl (0.6-1.2) 09/15/23 21:49 Est Cr Clr Drug Dosing 73.6 ml/min 09/15/23 21:49 Est GFR ( Amer) 98.0 ml/min 09/15/23 21:49 Est GFR (Non-Af Amer) 84.5 ml/min 09/15/23 21:49 BUN/Creatinine Ratio 31.8 (10-20) H 09/15/23 21:49 Glucose 133 mg/dl (70-99(Fasting)) H 09/15/23 21:49 Calcium 8.4 mg/dl (8.6-10.3) L 09/15/23 21:49 Magnesium 1.1 mg/dl (1.7-2.4) L 09/15/23 21:49 Total Bilirubin 3.1 mg/dl (0.2-1.0) H 09/15/23 21:49 AST 86 U/L (13-39) H 09/15/23 21:49 ALT 33 U/L (7-52) 09/15/23 21:49 Alkaline Phosphatase 384 U/L (34-104) H 09/15/23 21:49 Total Protein 6.7 gm/dl (6.0-8.3) 09/15/23 21:49 Albumin 3.6 gm/dl (3.4-5.0) 09/15/23 21:49 Globulin 3.1 gm/dl (2.5-4.0) 09/15/23 21:49 Albumin/Globulin Ratio 1.2 (0.9-2) 09/15/23 21:49 Lipase 22 U/L (11-82) 09/15/23 21:49 HCG, Qual Negative (Negative) 09/15/23 21:49 Ethyl Alcohol mg/dL < 10.0 mg/dl (<10.0) 09/15/23 21:49 Blood Type O Positive 09/15/23 22:42 Antibody Screen NEGATIVE 09/15/23 22:42 Crossmatch See Detail 09/15/23 22:42 Code Status & VTE Plan VTE Prophylaxis Plan VTE Prophylaxis will be ordered: Yes
[2023-09-16] MEDS ORDERED: PANTOprazole 80 MG in DEXTROSE 5% 100 ML IV ONE (02:20)
[2023-09-16] MEDS ORDERED: ALBUTEROL HFA 8 GM INHALER INH PRN (02:20)
[2023-09-16] MEDS ORDERED: PANTOprazole 40 MG in DEXTROSE 5% MINI-B 100 ML IV SCH (02:20)
[2023-09-16] MEDS ORDERED: SODIUM CHLORIDE 0.9% 1,000 ML IV SCH (02:20)
[2023-09-16] MEDS ORDERED: PANTOPRAZOLE BOLUS/DRIP IV STA (02:20)
[2023-09-16] MEDS ORDERED: NITROGLYCERIN SL 0.4 MG/TAB TAB SL PRN (02:20)
[2023-09-16] MEDS ORDERED: ONDANSETRON INJ 2 MG/ML 2 ML VIAL IV PRN ×3 (02:20→11:45)
[2023-09-16] MEDS: PANTOprazole 40 MG in DEXTROSE 5% MINI-B 100 ML IV SCH ×3 (03:15→13:37)
[2023-09-16 05:16] LABS: Calcium 6.9 mg/dl (8.6-10.3); Creatinine Clr Calc Pharmacy 71.2 ml/min; Est GFR (African American) 94.1 ml/min; Est GFR (Non-African American) 81.2 ml/min; Potassium 3.3 mmol/L (3.5-5.1)
[2023-09-16 05:24] LABS: Albumin Level 2.8 gm/dl (3.4-5.0); Bilirubin Direct 1.6 mg/dl (0-0.2); Bilirubin,Total 3.8 mg/dl (0.2-1.0); Magnesium 0.9 mg/dl (1.7-2.4); Total Protein 5.2 gm/dl (6.0-8.3)
[2023-09-16 05:40] LABS: Basophils # (auto) 0.02 K/uL (0.00-0.20); Basophils % (auto) 0.3 %; Hematocrit (blood only) 25.1 % (37.0-47.0); Hemoglobin 8.5 g/dl (12.0-16.0); Immature Granulocytes # (auto) 0.03 K/uL (0.01-0.20); Immature Granulocytes % (auto) 0.5 %; Lymphocytes # (auto) 0.99 K/uL (1.20-3.40); Lymphocytes % (auto) 16.9 %; Mean Corpuscular Hemoglobin 31.4 pg (25.0-34.0); Mean Corpuscular Hgb Conc 33.9 g/dL (32.0-36.0); Mean Corpuscular Volume 92.6 fL (80.0-100.0); Mean Platelet Volume 12.7 fL (9.4-12.4); Monocytes # (auto) 0.84 K/uL (0.11-0.59); Monocytes % (auto) 14.3 %; Neutrophils # (auto) 3.99 K/uL (1.40-6.50); Platelet Count 26 K/uL (130-400); Platelet Estimate Decreased (Normal); RBC Morphology Unremarkable; RDW Coefficient of Variation 16.8 % (11.5-14.5); RDW Standard Deviation 55.6 fL (36.4-46.3); Red Blood Count 2.71 M/uL (4.20-5.40); White Blood Count 5.87 K/ul (4.8-10.8)
[2023-09-16] MEDS: MAGNESIUM SULFATE / D5W 1 GM/100 ML BAG IV SCH ×4 (05:41→13:37)
[2023-09-16] MEDS ORDERED: Albuterol HFA 8 GM Inhaler (Combivent Respimat P&T Subs) INH SCH (07:00)
[2023-09-16] MEDS ORDERED: Ipratropium HFA Inhaler (Combivent Respimat P&T Subs) INH SCH (07:00)
[2023-09-16] MEDS: OCTREOTIDE ACETATE 500 MCG in 0.9 % SODIUM CHLORIDE 100 ML IV SCH (07:58)
[2023-09-16] MEDS ORDERED: cefTRIAXone SODIUM 2,000 MG in DEXTROSE 5 % MINI-B 50 ML IV SCH (08:00)
--- NOTE | 2023-09-16 08:59 | Gastrointestinal Consultation ---
Date of Consultation September 16, 2023 Assessment & Plan (1) Hematemesis: (2) Alcohol use disorder: (3) Cirrhosis: Pt is a 38 yo female w hx of ETOH hepatitis, cirrhosis (baseline MELD 16, needs updated MELD labs) w esophageal varices, ascites, anemia, thrombocytopenia, who presented with hematemesis & melena x 3 days. Last episode of n/v was last night 9PM. She had been abstinent of ETOh x 1 year but started drinking again in the last month. Next week was supposed to go to [facility] for liver transplant evaluation. - Electrolytes repletion per primary team - Keep NPO - Plan for EGD eval today (s/p 3U PRBC transfusion, needs at least 1U Plt prior to EGD given Plt ct was 26K this AM) - Continue PPI gtt, Octreotide gtt, Ceftriaxone IV coverage - Monitor blood ct closely and transfuse if Hgb <8 - Strict ETOH abstinence advised, avoid marijuana & tobacco products as well - Avoid Nsaids, no APAP >2g daily - Upon DC, f/u w [facility] [place] [facility] (primary provider: TIAN English) Supervising Physician Co-Signing Physician Notes I personally saw and evaluated the patient on 09/16/2023 with TIAN Chavez and agree with her findings and plan of care. 38 y/o F with history of decompensated alcohol cirrhosis c/b esophageal varices and ascites admitted with hematemesis and melena for the past several days. She has been actively abusing alcohol and reports drinking 5 shots of vodka yesterday. Reports she was sober for a year and attending alcohol counseling at [facility] but started drinking again last month. Last EGD 1 year ago with grade I EV. On admission hgb found to be 8 and her baseline runs between 7-8. Platelets low at 26. INR 1.4. She got 3 units of blood last night for a hgb of 8.5 but the repeat is 7.9. Patient reports a bloody bowel movement in the ER last night and reports last episode of hematemesis at 9 pm. We will plan for urgent EGD today given concern for variceal bleed with history of varices and ongoing alcohol abuse. I am concerned that she got 3 units of PRBC and her blood count has actually gone down. Remain NPO. IV PPI gtt, IV octreotide gtt, and IV ceftriaxone for SBP prophylaxis (needs a total of 7 days of SBP prophylaxis in setting of ascites so if discharged before then will need PO cipro). Trend H/H and transfuse for hgb <7. she is getting 2 units of platelets. Please do not over transfuse in the setting of varices which will increase portal pressure and increase the bleeding. CIWA protocol. Strongly advise alcohol cessation and she needs to continue counseling upon discharge. Daily MELD labs. On exam patient AAOx3. Abdomen is soft and non-tender. Saumya Bañuelos, Gastroenterology and Hepatology History of Present Illness Reason for Consultation: Hematemesis Requesting Physician: Dr. Barry Rabago Attending Physician: Dr. Saumya Bañuelos History of Present Illness Pt is a 38 yo female w PMhx of asthma, ETOH hepatitis, cirrhosis, w portal HTN, ascites, Fe deficiency anemia, thrombocytopenia, GERSON/Depression, who presented with hematemesis x 3 days. Last episode of hematemesis was 9PM last night. She denies associated fever, chills, CP, SOB, abd pain. Stools have been dark and tarry, then turned bloody. She had been abstinent of ETOH x 1 year per her report and was attending counseling at [facility]. But admitted within last month she started drinking ETOH again, (5 shots of Vodka 2x a week). Last ETOH ingestion on . Smokes 2cig a week, uses Marijuana intermittently, last used in . VS: HR 90s-100s, BP 96/68 this AM, Afebrile. Labs reviewed - anemic and thrombocytopenic. Hgb 8 (close to baseline), received 3U PRBC transfusion last night. Plt 26, INR pending. K 3.3 on Kr[place], Mg 0.9, BUN 33, cr normal. LFTs: Tbili 1.6, AST 86, ALT 29 ,Alk phos 282. Lipase 22, ETOH <10 Last EGD 09/2022: Grade I esophageal varices, portal HTN Last colonoscopy 06/2022: tubular adenoma colon polyps Allergies Allergy/AdvReac Type Severity Reaction Status Date / Time banana Allergy Intermediate RASH, Verified 09/16/23 01:13 THROAT SLIGHTLY SWOLLEN Penicillins Allergy Unknown HAPPENED Verified 09/16/23 01:13 A CHILD Home Medications Medication Instructions Recorded Confirmed Type albuterol sulfate 90 mcg/actuation 2 inh inhalation BID PRN Shortness 06/24/20 09/16/23 History aerosol inhaler (ProAir HFA) Of Breath budesonide-formoterol HFA 160 2 puff inhalation BID 06/20/21 09/16/23 History mcg-4.5 mcg/actuation aerosol inhaler (Symbicort) dextroamphetamine-amphetamine 5 mg 5 mg PO AMHS 06/20/21 09/16/23 History tablet (Adderall) ipratropium 20 mcg-albuterol 100 1 puff inhalation BID 06/20/21 09/16/23 History mcg/actuation mist for inhalation (Combivent Respimat) loratadine 10 mg tablet 10 mg PO QAM 06/20/21 09/16/23 History montelukast 10 mg tablet 10 mg PO HS 06/20/21 09/16/23 History omeprazole 20 mg capsule,delayed 20 mg PO QAM 06/20/21 09/16/23 History release fluticasone propionate 50 2 spray intranasal QAM PRN 10/03/21 09/16/23 History mcg/actuation nasal allergies spray,suspension multivitamin 1 tab PO QAM 10/03/21 09/16/23 History ondansetron HCl 4 mg tablet 4 mg PO Q8H PRN Nausea 10/31/21 09/16/23 History ascorbic acid (vitamin C) 500 mg 500 mg PO QAM 01/31/22 09/16/23 History tablet (Vitamin C) cholecalciferol (vitamin D3) 50 0 mcg PO QAM 01/31/22 09/16/23 History mcg (2,000 unit) capsule (Vitamin D3) hydroxyzine HCl 25 mg tablet 25 mg PO TID PRN Anxiety 01/31/22 09/16/23 History thiamine HCl (vitamin B1) 100 mg 100 mg PO QAM #30 tabs 03/23/22 09/16/23 Rx tablet magnesium oxide 400 mg (241.3 mg 400 mg PO BID 03/25/22 09/16/23 History magnesium) tablet potassium chloride 20 mEq 20 meq PO QAM 03/25/22 09/16/23 History tablet,extended release sodium di- and 2 tab PO QID 03/25/22 09/16/23 History monophosphate-potassium phos monobasic 250 mg tablet (Phospha Neutral) diclofenac sodium 1 % topical gel 4 g topical TID PRN Pain 10/14/22 09/16/23 History (Voltaren Arthritis Pain) metoclopramide HCl 10 mg tablet 10 mg PO AMHS PRN Nausea 01/07/23 09/16/23 History folic acid 1 mg tablet 1 mg PO QAM 09/16/23 09/16/23 History promethazine 12.5 mg tablet 12.5 mg PO Q6 PRN Nausea 09/16/23 09/16/23 History sertraline 100 mg tablet 100 mg PO QAM 09/16/23 09/16/23 History tiotropium bromide 2.5 2 puff inhalation QAM 09/16/23 09/16/23 History mcg/actuation mist for inhalation (Spiriva Respimat) Patient History Medical History History of COVID-2019, tested thru hospital at [place], hospitalized during covid; fatigue, body aches, decreased appetite>resolved. Hemoptysis "sometimes still has this" Acute chest wall pain hx-"from a recent fall where she broke some ribs" Fall 06/2022, fx ribs VAN (acute kidney injury) hx Portal hypertension Alcoholic cirrhosis with abn coags Anemia pre-op H&H 04/15/22: 05/15 History of pancreatitis alcoholic 05/2021 per records GERD (gastroesophageal reflux disease) Pneumonia February 2022 treated at [facility]. denies sob currently Thrombocytopenia Jaundice hx-"not very much now" Acute on chronic alcoholic liver disease "currently trying to get on the transplant list" Decompensated hepatic cirrhosis Hypokalemia Acute hyponatremia Hypomagnesemia Hyperbilirubinemia Rectal bleeding "a little when she's constipated" Alcohol abuse with withdrawal Fatty liver Depression Alcoholic hepatitis Anxiety ADD (attention deficit disorder) Asthma well controlled with inhalers Alcohol abuse Surgical History Hx of colonoscopy History of vascular access device 04/2022, [facility] H/O wisdom tooth extraction History of esophagogastroduodenoscopy (EGD) History of abdominal paracentesis Family History Grandmother Breast cancer Grandfather Heart disease Other No family history of adverse response to anesthesia Social History Smoking Status: Never smoker Tobacco Type: Cigarettes Cigarettes Per Day: 1-2; Second Hand Exposure: No; Do You Dip or Chew Tobacco: No; Hx Alcohol Use: Yes Alcohol type: hard liquor Hx Substance Use: No Preferred Language: Ukrainian 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 Ability: Effective Legal Entity Controller Required: No Beliefs That Will Affect Care: None marital status: Single Current Living Situation: Family Current Living Situation Comment: Apartment current occupational status: employed How many Children do You have: 0 Other Information That Helps Us Care for You: No Feels Safe at Home: Yes Safety Concerns: Feels Safe At This Time Assistive Devices: None Review of Systems Review of Systems: All systems reviewed & are unremarkable except as noted in HPI & below Physical Exam Constitutional: WD/WN, vitals as above well groomed, cooperative and comfortable Eyes: PERRL, conjunctivae normal, anicteric sclerae ENMT: external ear and nose normal, oropharynx normal Respiratory: normal respiratory effort, lungs clear to auscultation Cardiovascular: RRR, no murmur, no edema Gastrointestinal (Abdomen): normal bowel sounds, soft, nontender, no hepatosplenomegaly Skin: no rashes, warm and dry no jaundice Neurologic: Motor/Sensory: no tremor and no asterixis Psychiatric: slightly stuporous Lymphatic: no lymphedema Results & Data Vital Signs (Past 12 Hours) Vital Signs Temp Pulse Pulse Resp BP BP Pulse Ox 09/16/23 06:55 95 H 14 96 09/16/23 06:03 98 H 17 96 09/16/23 06:03 96/68 L 09/16/23 06:02 102 H 14 98 09/16/23 05:45 107/09/16/23 05:45 99 H 20 95 09/16/23 05:30 97 H 14 96 09/16/23 05:30 108/73 09/16/23 05:15 99 H 26 H 96 09/16/23 05:15 111/71 09/16/23 05:00 108/75 09/16/23 05:00 100 H 14 95 09/16/23 04:45 101 H 14 95 09/16/23 04:45 107/09/16/23 04:30 107/09/16/23 04:30 102 H 20 96 09/16/23 04:15 105/74 09/16/23 04:15 102 H 20 94 09/16/23 04:00 105/72 09/16/23 04:00 105 H 19 94 09/16/23 03:50 106 H 16 95 09/16/23 03:45 111/76 09/16/23 03:45 103 H 27 H 96 09/16/23 03:40 103 H 26 H 95 09/16/23 03:27 104 H 14 100/68 97 09/16/23 03:15 114/81 09/16/23 03:15 105 H 15 94 09/16/23 03:00 100 H 25 H 96 09/16/23 03:00 108/74 09/16/23 02:45 112/74 09/16/23 02:45 106 H 27 H 96 09/16/23 02:38 37.1 C 105 H 18 104/75 95 09/16/23 02:30 104/75 09/16/23 02:30 108 H 19 98 09/16/23 02:27 111 H 09/16/23 02:20 09/16/23 02:00 109 H 29 H 96 09/16/23 02:00 106/73 09/16/23 01:45 103/71 09/16/23 01:45 106 H 28 H 97 09/16/23 01:30 107/73 09/16/23 01:30 106 H 23 100 09/16/23 01:18 36.8 C 09/16/23 01:18 107 H 14 109/77 98 09/16/23 01:15 108 H 28 H 97 09/16/23 01:15 109/77 09/16/23 01:00 102/76 09/16/23 01:00 108 H 27 H 98 09/16/23 00:45 109 H 18 110/72 97 09/16/23 00:30 108 H 20 112/73 96 09/16/23 00:29 37.3 C 09/16/23 00:15 106 H 14 96 09/16/23 00:15 120/75 09/16/23 00:00 110/72 09/16/23 00:00 103 H 17 99 09/16/23 00:00 37.3 C 09/15/23 23:45 121/77 09/15/23 23:45 100 H 16 100 09/15/23 23:43 37.6 C H 99 H 12 120/80 100 09/15/23 23:30 120/80 09/15/23 23:30 101 H 18 99 09/15/23 23:15 104 H 16 98 09/15/23 23:15 108/71 09/15/23 23:14 37.2 C 101 H 15 108/71 99 09/15/23 23:00 100 H 13 100 09/15/23 23:00 99/71 L 09/15/23 23:00 37.6 C H 100 H 15 99/71 L 100 09/15/23 22:50 102 H 19 100 09/15/23 22:46 37.5 C 101 H 19 90/67 L 100 09/15/23 22:45 103 H 15 100 09/15/23 22:45 90/67 L 09/15/23 22:40 110 H 15 99 09/15/23 22:30 108 H 17 100 09/15/23 22:30 96/67 L 09/15/23 22:30 96/67 L 09/15/23 22:22 114 H 09/15/23 22:20 120 H 17 99 09/15/23 22:20 94/65 L 09/15/23 22:18 120 H 19 09/15/23 22:08 123 H 18 77/56 L 98 09/15/23 21:23 36.9 C 101 H 20 95 O2 Del Method 09/16/23 06:55 Room Air 09/16/23 06:03 09/16/23 06:03 09/16/23 06:02 09/16/23 05:45 09/16/23 05:45 09/16/23 05:30 09/16/23 05:30 09/16/23 05:15 09/16/23 05:15 09/16/23 05:00 09/16/23 05:00 09/16/23 04:45 09/16/23 04:45 09/16/23 04:30 09/16/23 04:30 09/16/23 04:15 09/16/23 04:15 09/16/23 04:00 09/16/23 04:00 09/16/23 03:50 09/16/23 03:45 09/16/23 03:45 09/16/23 03:40 09/16/23 03:27 09/16/23 03:15 09/16/23 03:15 09/16/23 03:00 09/16/23 03:00 09/16/23 02:45 09/16/23 02:45 09/16/23 02:38 Room Air 09/16/23 02:30 09/16/23 02:30 09/16/23 02:27 09/16/23 02:20 Room Air 09/16/23 02:00 09/16/23 02:00 09/16/23 01:45 09/16/23 01:45 09/16/23 01:30 09/16/23 01:30 09/16/23 01:18 09/16/23 01:18 09/16/23 01:15 09/16/23 01:15 09/16/23 01:00 09/16/23 01:00 09/16/23 00:45 09/16/23 00:30 09/16/23 00:29 09/16/23 00:15 09/16/23 00:15 09/16/23 00:00 09/16/23 00:00 09/16/23 00:00 09/15/23 23:45 09/15/23 23:45 09/15/23 23:43 09/15/23 23:30 09/15/23 23:30 09/15/23 23:15 09/15/23 23:15 09/15/23 23:14 09/15/23 23:00 09/15/23 23:00 09/15/23 23:00 09/15/23 22:50 09/15/23 22:46 09/15/23 22:45 09/15/23 22:45 09/15/23 22:40 09/15/23 22:30 09/15/23 22:30 09/15/23 22:30 09/15/23 22:22 09/15/23 22:20 09/15/23 22:20 09/15/23 22:18 09/15/23 22:08 Room Air 09/15/23 21:23 Room Air (3) Cirrhosis Ascites presence: with ascites Hepatic cirrhosis type: alcoholic cirrhosis Qualified Code(s): K70.31 - Alcoholic cirrhosis of liver with ascites
[2023-09-16] MEDS ORDERED: FOLIC ACID 1 MG in SYRINGE 9.8 ML IV SCH (09:00)
[2023-09-16] MEDS ORDERED: FLUTICASONE/VILANTEROL 200/25MCG 14 PUFFS/INHALER INH SCH (09:00)
[2023-09-16] MEDS ORDERED: IPRATROPIUM BROMIDE/ALBUTEROL respimat INH INH SCH (09:00)
[2023-09-16] MEDS ORDERED: THIAMINE HCL 100 MG in SYRINGE 9 ML IV SCH (09:00)
[2023-09-16] MEDS ORDERED: UMECLIDINIUM BROMIDE 62.5MCG/BLISTER 7 PUFFS/INHALER INH SCH (09:00)
[2023-09-16 09:06] LABS: Hematocrit (blood only) 22.2 % (37.0-47.0); Hemoglobin 7.9 g/dl (12.0-16.0); Mean Corpuscular Hemoglobin 32.4 pg (25.0-34.0); Mean Corpuscular Hgb Conc 35.6 g/dL (32.0-36.0); Mean Platelet Volume 12.6 fL (9.4-12.4); Nucleated RBC # (auto) 0.03 K/uL (0.00-0.12); Nucleated RBC % (auto) 0.6 %; Platelet Count 26 K/uL (130-400); RDW Coefficient of Variation 17.1 % (11.5-14.5); RDW Standard Deviation 56.7 fL (36.4-46.3); Red Blood Count 2.44 M/uL (4.20-5.40)
[2023-09-16 09:10] LABS: INR 1.4 (0.9-1.1); Prothrombin Time 15.5 Seconds (9.0-12.0)
--- NOTE | 2023-09-16 09:13 | Anesthesiology Consultation ---
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 initiated History Surgery Operation Date: 09/16/23 08:40 Proposed Procedures p Esophagogastroduodenoscopy - Saumya Bañuelos DO Height/Weight Height: 5 ft 1 in Weight: 60.2 kg Allergies Allergy/AdvReac Type Severity Reaction Status Date / Time banana Allergy Intermediate RASH, Verified 09/16/23 01:13 THROAT SLIGHTLY SWOLLEN Penicillins Allergy Unknown HAPPENED Verified 09/16/23 01:13 A CHILD Medications Home Medications Medication Instructions Recorded Confirmed Last Taken albuterol sulfate 90 mcg/actuation 2 inh inhalation BID PRN Shortness 06/24/20 09/16/23 01/06/23 21:00 aerosol inhaler (ProAir HFA) Of Breath budesonide-formoterol HFA 160 2 puff inhalation BID 06/20/21 09/16/23 01/06/23 21:00 mcg-4.5 mcg/actuation aerosol inhaler (Symbicort) dextroamphetamine-amphetamine 5 mg 5 mg PO AMHS 06/20/21 09/16/23 01/06/23 15:00 tablet (Adderall) ipratropium 20 mcg-albuterol 100 1 puff inhalation BID 06/20/21 09/16/23 01/06/23 08:00 mcg/actuation mist for inhalation (Combivent Respimat) loratadine 10 mg tablet 10 mg PO QAM 06/20/21 09/16/23 01/06/23 08:00 montelukast 10 mg tablet 10 mg PO HS 06/20/21 09/16/23 01/06/23 21:00 omeprazole 20 mg capsule,delayed 20 mg PO QAM 06/20/21 09/16/23 01/07/23 06:00 release fluticasone propionate 50 2 spray intranasal QAM PRN 10/03/21 09/16/23 01/06/23 08:00 mcg/actuation nasal allergies spray,suspension multivitamin 1 tab PO QAM 10/03/21 09/16/23 01/06/23 08:00 ondansetron HCl 4 mg tablet 4 mg PO Q8H PRN Nausea 10/31/21 09/16/23 04/20/22 10:00 ascorbic acid (vitamin C) 500 mg 500 mg PO QAM 01/31/22 09/16/23 01/06/23 08:00 tablet (Vitamin C) cholecalciferol (vitamin D3) 50 0 mcg PO QAM 01/31/22 09/16/23 01/06/23 08:00 mcg (2,000 unit) capsule (Vitamin D3) hydroxyzine HCl 25 mg tablet 25 mg PO TID PRN Anxiety 01/31/22 09/16/23 01/06/23 21:00 thiamine HCl (vitamin B1) 100 mg 100 mg PO QAM #30 tabs 03/23/22 09/16/23 01/06/23 08:00 tablet magnesium oxide 400 mg (241.3 mg 400 mg PO BID 03/25/22 09/16/23 01/06/23 08:00 magnesium) tablet potassium chloride 20 mEq 20 meq PO QAM 03/25/22 09/16/23 01/06/23 08:00 tablet,extended release sodium di- and 2 tab PO QID 03/25/22 09/16/23 01/06/23 08:00 monophosphate-potassium phos monobasic 250 mg tablet (Phospha Neutral) diclofenac sodium 1 % topical gel 4 g topical TID PRN Pain 10/14/22 09/16/23 Unknown (Voltaren Arthritis Pain) metoclopramide HCl 10 mg tablet 10 mg PO AMHS PRN Nausea 01/07/23 09/16/23 01/06/23 21:00 folic acid 1 mg tablet 1 mg PO QAM 09/16/23 09/16/23 Unknown promethazine 12.5 mg tablet 12.5 mg PO Q6 PRN Nausea 09/16/23 09/16/23 Unknown sertraline 100 mg tablet 100 mg PO QAM 09/16/23 09/16/23 Unknown tiotropium bromide 2.5 2 puff inhalation QAM 09/16/23 09/16/23 Unknown mcg/actuation mist for inhalation (Spiriva Respimat) Active Medications Generic Name Dose Route Start Last Admin Trade Name Freq PRN Reason Stop Dose Admin Albuterol 1 puffs 09/16/23 07:00 09/16/23 06:56 Albuterol Hfa 8 Gm Inhaler (Combivent Respimat P&T Subs) INH 10/16/23 06:59 1 puffs BIDR JUAN Administration Protocol Pantoprazole Sodium 40 mg/ 100 mls @ 20 mls/hr 09/15/23 22:45 09/16/23 07:56 Dextrose IV 10/15/23 22:44 8 mg/hr Q5H JUAN 20 mls/hr Administration 8 MG/HR Octreotide Acetate 500 mcg/ 100.5 mls @ 10.05 mls/hr 09/15/23 22:45 09/16/23 07:58 Sodium Chloride IV 10/15/23 22:44 50 mcg/hr .Q10H JUAN 10.1 mls/hr Administration 50 MCG/HR Lorazepam 1 mg/ Syringe 1 mls @ 2 mls/min 09/15/23 23:26 09/16/23 00:07 IV 10/15/23 23:25 2 mls/min UD PRN Administration EtOH Withdrawal AWSS Score 6,7 Protocol Sodium Chloride 1,000 mls @ 50 mls/hr 09/16/23 02:20 09/16/23 03:15 Nss IV 10/16/23 02:19 50 mls/hr .Q20H JUAN Administration Thiamine HCl 100 mg/ Syringe 10 mls @ 2 mls/min 09/16/23 09:00 09/16/23 07:59 IV 10/16/23 08:59 2 mls/min QAM JUAN Administration Folic Acid 1 mg/ Syringe 10 mls @ 5 mls/min 09/16/23 09:00 09/16/23 07:59 IV 10/16/23 08:59 5 mls/min QAM JUAN Administration Magnesium Sulfate/Dextrose 1 gm in 100 mls @ 50 mls/hr 09/16/23 05:30 09/16/23 07:51 Magnesium Sulfate / D5w IV 09/16/23 13:29 Infused Q2H JUAN Infusion Ceftriaxone Sodium 2,000 mg/ 50 mls @ 100 mls/hr 09/16/23 08:00 09/16/23 08:37 Dextrose IV 09/26/23 07:59 Infused Q24H JUAN Infusion Protocol Ipratropium [place] 1 puffs 09/16/23 07:00 09/16/23 06:57 Ipratropium Hfa Inhaler (Combivent Respimat P&T Subs) INH 10/16/23 06:59 1 puffs BIDR JUAN Administration Protocol Past Medical History Medical History History of COVID-19 early 2019, tested thru hospital at [place], hospitalized during covid; fatigue, body aches, decreased appetite>resolved. Hemoptysis "sometimes still has this" Acute chest wall pain hx-"from a recent fall where she broke some ribs" Fall 06/2022, fx ribs VAN (acute kidney injury) hx Portal hypertension Alcoholic cirrhosis with abn coags Anemia pre-op H&H 04/15/22: 05/15 History of pancreatitis alcoholic 05/2021 per records GERD (gastroesophageal reflux disease) Pneumonia February 2022 treated at [facility]. denies sob currently Thrombocytopenia Jaundice hx-"not very much now" Acute on chronic alcoholic liver disease "currently trying to get on the transplant list" Decompensated hepatic cirrhosis Hypokalemia Acute hyponatremia Hypomagnesemia Hyperbilirubinemia Rectal bleeding "a little when she's constipated" Alcohol abuse with withdrawal Fatty liver Depression Alcoholic hepatitis Anxiety ADD (attention deficit disorder) Asthma well controlled with inhalers Alcohol abuse Past Family History Family History Grandmother Breast cancer Grandfather Heart disease Other No family history of adverse response to anesthesia Past Surgical History Surgical History Hx of colonoscopy History of vascular access device 04/2022, [facility] H/O wisdom tooth extraction History of esophagogastroduodenoscopy (EGD) History of abdominal paracentesis Social History Smoking Status: Never smoker tobacco type: cigarettes Smoking cigarettes per day: 1-2 Do You Dip or Chew Tobacco: No Hx Alcohol Use: Yes Alcohol type: hard liquor alcohol intake frequency: 3 or more drinks per day Alcohol Intake Frequency Comment: pt previously in rehab, last drink 09/14/2023 Hx Substance Use: No substance use type: does not use Physical Exam Vital Signs Last Vital Signs Temp 98.8 F 09/16/23 02:38 Pulse 95 H 09/16/23 06:55 Resp 14 09/16/23 06:55 BP 96/68 L 09/16/23 06:03 Pulse Ox 96 09/16/23 06:55 O2 Del Method Room Air 09/16/23 06:55 Testing Laboratory Results 09/16/23 08:19 09/16/23 03:59 PT 15.5 Seconds (9.0-12.0) H 09/16/23 08:10 INR 1.4 (0.9-1.1) H 09/16/23 08:10 Blood Type O Positive 09/15/23 22:42 Antibody Screen NEGATIVE 09/15/23 22:42 Electrocardiogram Date: 07/26/23 Normal sinus rhythm with sinus arrhythmia, rate 70 bpm Left axis deviation Low voltage QRS Cannot rule out Anteroseptal infarct (cited on or before 14-JUL-2022) Abnormal ECG When compared with ECG of 17-JUL-2022 13:48, Criteria for Inferior infarct are no longer Present Nonspecific T wave abnormality no longer evident in Inferior leads QT has shortened Confirmed by Trevor Prasad ([id number]) on 07/27/2023 12:59:53 PM
[2023-09-16] MEDS ORDERED: PROPOFOL IV EMULSION 10 MG/ML 20 ML VIAL IV ONE (10:52)
[2023-09-16] MEDS ORDERED: LIDOCAINE 2% 2 ML VIAL/AMP(20MG/ML) INFIL ONE (10:52)
[2023-09-16] MEDS ORDERED: fentaNYL citrate PF 100 MCG/2 ML VIAL IV PRN ×2 (11:42→11:45)
[2023-09-16] MEDS ORDERED: ATROPINE SULFATE 0.1 MG/ML 10ML SYR IV PRN ×2 (11:42→11:45)
[2023-09-16] MEDS ORDERED: ePHEDrine sulfate 50 MG/ML AMP IV PRN ×2 (11:42→11:45)
[2023-09-16] MEDS ORDERED: fentaNYL citrate PF 100 MCG/2 ML VIAL ONE (11:47)
[2023-09-16] MEDS ORDERED: SUCCINYLCHOLINE CHLORIDE 20 MG/ML 10 ML VIAL IV ONE (11:47)
[2023-09-16] MEDS ORDERED: ONDANSETRON INJ 2 MG/ML 2 ML VIAL ONE (11:49)
[2023-09-16] MEDS ORDERED: PHENYLEPHRINE HCL 10 MG/ML VIAL ONE (11:49)
[2023-09-16] MEDS ORDERED: MIDAZOLAM HCL 1 MG/ML 2ML VIAL ONE (12:27)
[2023-09-16] MEDS ORDERED: ePHEDrine sulfate 50 MG/ML AMP ONE (12:38)
[2023-09-16] MEDS ORDERED: fentaNYL BOLUS from BAG IV PRN ×2 (13:01)
[2023-09-16] MEDS ORDERED: STAT IV Infusion **Titration per Protocol STA ×3 (13:01→13:10)
[2023-09-16] MEDS ORDERED: fentaNYL citrate 2,500 MCG/250 ML BAG IV ONE (13:05)
--- NOTE | 2023-09-16 13:05 | GI REPORT ---
Patient Name: Kathie Burr Procedure Date: 09/16/2023 11:54 AM Date of : 1985 Admit Type: Inpatient Age: 38 Gender: Female Attending MD: Saumya Bañuelos DO, Procedure: Upper GI endoscopy Providers: Saumya Bañuelos DO Referring MD: Barry Rabago Md Indications: Hematemesis, Melena Patient Profile: This is a 38 year old female. Refer to note in patient chart for documentation of history and physical. Medicines: General Anesthesia Complications: No immediate complications. Estimated Blood Loss: Estimated blood loss was minimal. Procedure: Pre-Anesthesia Assessment: - Prior to the procedure, a History and Physical was performed, and patient medications and allergies were reviewed. The risks and benefits of the procedure and the sedation options and risks were discussed with the patient. All questions were answered and informed consent was obtained. Patient identification and proposed procedure were verified by the physician, the nurse, the anesthesiologist and the utility bill collector in the procedure room. Mental Status Examination: alert and oriented. Airway Examination: Mallampati Class II (the uvula but not tonsillar pillars visualized). Respiratory Examination: clear to auscultation. CV Examination: RRR, no murmurs, no S3 or S4. Prophylactic Antibiotics: The patient does not require prophylactic antibiotics. Prior Anticoagulants: The patient has taken no anticoagulant or antiplatelet agents. ASA Grade Assessment: IV - A patient with severe systemic disease that is a constant threat to life. After reviewing the risks and benefits, the patient was deemed in satisfactory condition to undergo the procedure. The anesthesia plan was to use general anesthesia. Immediately prior to administration of medications, the patient was re-assessed for adequacy to receive sedatives. The physical status of the patient was re-assessed after the procedure. After obtaining informed consent, the endoscope was passed under direct vision. Throughout the procedure, the patient's blood pressure, pulse, and oxygen saturations were monitored continuously. The Endoscope was introduced through the mouth, and advanced to the second part of duodenum. The upper GI endoscopy was accomplished without difficulty. The patient tolerated the procedure well. Findings: Two columns of large (> 5 mm) varices with stigmata of recent bleeding were found in the lower third of the esophagus. Red bozena signs were present. Two bands were successfully placed with complete eradication, resulting in deflation of varices. There was no bleeding at the end of the procedure. Red blood was found in the cardia and in the gastric fundus. Portal hypertensive gastropathy was found in the entire examined stomach. The duodenal bulb and second portion of the duodenum were normal. Impression: - Large (> 5 mm) esophageal varices with red bozena signs but no nipple signs were appreciated. 2 bands were placed with what appeared to be complete eradication however the banding was very difficult as blood and thick clots were refluxing up the entire esophagus interfering with visualization. There was also oozing in the esophagus from scope passage and this is likely due to patient's platelet count of 26. Tissue was extremely friable. - The entire cardia, fundus, and portions of the body were filled with fresh blood clot. I was not able to clear the cardia or fundus given the thick clot so there is a chance there are gastric varices under there but the stomach could not be cleared. There was no active bleeding seen. - Portal hypertensive gastropathy. - Normal duodenal bulb and second portion of the duodenum. - No specimens collected. Recommendation: - Return patient to ICU for ongoing care. - NPO. - IV PPI gtt, IV octreotide gtt, and IV ceftriaxone - Would recommend transfer to [facility]. She is high risk for re-bleeding and she should undergo a TIPS evaluation. There is no IR capability here at [facility]. At this time the bleeding is presently controlled and the bands were placed on the esophageal varices which were the likely source of bleeding. As the fundus and cardia could not be cleared there is still a chance this was a gastric variceal bleed as well. I spoke with Dr. Hudson ICU at [place] and they are accepting patient for transfer. Will notify hepatology/GI at [place] as well. Her MELD-Na is 15 today based on labs from this AM. - Trend H/H and transfuse for hgb <7, try to aim to maintain platelets above 50, maintain INR <2 Saumya Bañuelos DO 09/16/2023 1:04:39 PM Note Initiated On: 09/16/2023 11:54 AM Number of Addenda: 0 I attest to the content of the Intraoperative Record and orders documented therein, exceptions below {[id number]}
--- NOTE | 2023-09-16 13:09 | Anesthesiology Progress Note ---
Date of Service September 16, 2023 Anesthesia Post Procedure Vital Signs Vital Signs: Temp Pulse Pulse Resp BP BP Pulse Ox 09/16/23 11:56 36.7 C 93 H 20 87/54 L 95 09/16/23 11:36 36.9 C 91 H 16 92/50 L 94 09/16/23 11:28 37.5 C 93 H 16 94/56 L 95 09/16/23 11:00 91 H 21 93/55 L 95 09/16/23 10:30 94 H 16 102/54 L 95 09/16/23 10:00 95 H 12 91/51 L 92 09/16/23 09:55 37.1 C 94 H 12 91/51 L 93 09/16/23 09:40 37.2 C 96 H 21 92/58 L 95 09/16/23 09:25 37.0 C 94 H 20 83/62 L 98 09/16/23 08:30 91/53 L 09/16/23 06:55 95 H 14 96 09/16/23 06:03 98 H 17 96 09/16/23 06:03 96/68 L 09/16/23 06:02 102 H 14 98 09/16/23 05:45 107/71 09/16/23 05:45 99 H 20 95 09/16/23 05:30 97 H 14 96 09/16/23 05:30 108/73 09/16/23 05:15 99 H 26 H 96 09/16/23 05:15 111/71 09/16/23 05:00 108/75 09/16/23 05:00 100 H 14 95 09/16/23 04:45 101 H 14 95 09/16/23 04:45 107/71 09/16/23 04:30 107/73 09/16/23 04:30 102 H 20 96 09/16/23 04:15 105/74 09/16/23 04:15 102 H 20 94 09/16/23 04:00 105/72 09/16/23 04:00 105 H 19 94 09/16/23 03:50 106 H 16 95 09/16/23 03:45 111/76 09/16/23 03:45 103 H 27 H 96 09/16/23 03:40 103 H 26 H 95 09/16/23 03:27 104 H 14 100/68 97 09/16/23 03:15 114/81 09/16/23 03:15 105 H 15 94 09/16/23 03:00 100 H 25 H 96 09/16/23 03:00 108/74 09/16/23 02:45 112/74 09/16/23 02:45 106 H 27 H 96 09/16/23 02:38 37.1 C 105 H 18 104/75 95 09/16/23 02:30 104/75 09/16/23 02:30 108 H 19 98 09/16/23 02:27 111 H 09/16/23 02:20 09/16/23 02:00 109 H 29 H 96 09/16/23 02:00 106/73 09/16/23 01:45 103/71 09/16/23 01:45 106 H 28 H 97 09/16/23 01:30 107/73 09/16/23 01:30 106 H 23 100 09/16/23 01:18 36.8 C 09/16/23 01:18 107 H 14 109/77 98 09/16/23 01:15 108 H 28 H 97 09/16/23 01:15 109/77 09/16/23 01:05 37.2 C 95 H 15 92/58 L 94 09/16/23 01:00 102/76 09/16/23 01:00 108 H 27 H 98 09/16/23 00:45 109 H 18 110/72 97 09/16/23 00:30 108 H 20 112/73 96 09/16/23 00:29 37.3 C 09/16/23 00:15 106 H 14 96 09/16/23 00:15 120/75 09/16/23 00:00 110/72 09/16/23 00:00 103 H 17 99 09/16/23 00:00 37.3 C 09/15/23 23:45 121/77 09/15/23 23:45 100 H 16 100 09/15/23 23:43 37.6 C H 99 H 12 120/80 100 09/15/23 23:30 120/80 09/15/23 23:30 101 H 18 99 09/15/23 23:15 104 H 16 98 09/15/23 23:15 108/71 09/15/23 23:14 37.2 C 101 H 15 108/71 99 09/15/23 23:00 100 H 13 100 09/15/23 23:00 99/71 L 09/15/23 23:00 37.6 C H 100 H 15 99/71 L 100 09/15/23 22:50 102 H 19 100 09/15/23 22:46 37.5 C 101 H 19 90/67 L 100 09/15/23 22:45 103 H 15 100 09/15/23 22:45 90/67 L 09/15/23 22:40 110 H 15 99 09/15/23 22:30 108 H 17 100 09/15/23 22:30 96/67 L 09/15/23 22:30 96/67 L 09/15/23 22:22 114 H 09/15/23 22:20 120 H 17 99 09/15/23 22:20 94/65 L 09/15/23 22:18 120 H 19 09/15/23 22:08 123 H 18 77/56 L 98 09/15/23 21:23 36.9 C 101 H 20 95 O2 Del Method 09/16/23 11:56 09/16/23 11:36 09/16/23 11:28 Room Air 09/16/23 11:00 09/16/23 10:30 09/16/23 10:00 Room Air 09/16/23 09:55 09/16/23 09:40 09/16/23 09:25 09/16/23 08:30 09/16/23 06:55 Room Air 09/16/23 06:03 09/16/23 06:03 09/16/23 06:02 09/16/23 05:45 09/16/23 05:45 09/16/23 05:30 09/16/23 05:30 09/16/23 05:15 09/16/23 05:15 09/16/23 05:00 09/16/23 05:00 09/16/23 04:45 09/16/23 04:45 09/16/23 04:30 09/16/23 04:30 09/16/23 04:15 09/16/23 04:15 09/16/23 04:00 09/16/23 04:00 09/16/23 03:50 09/16/23 03:45 09/16/23 03:45 09/16/23 03:40 09/16/23 03:27 09/16/23 03:15 09/16/23 03:15 09/16/23 03:00 09/16/23 03:00 09/16/23 02:45 09/16/23 02:45 09/16/23 02:38 Room Air 09/16/23 02:30 09/16/23 02:30 09/16/23 02:27 09/16/23 02:20 Room Air 09/16/23 02:00 09/16/23 02:00 09/16/23 01:45 09/16/23 01:45 09/16/23 01:30 09/16/23 01:30 09/16/23 01:18 09/16/23 01:18 09/16/23 01:15 09/16/23 01:15 09/16/23 01:05 09/16/23 01:00 09/16/23 01:00 09/16/23 00:45 09/16/23 00:30 09/16/23 00:29 09/16/23 00:15 09/16/23 00:15 09/16/23 00:00 09/16/23 00:00 09/16/23 00:00 09/15/23 23:45 09/15/23 23:45 09/15/23 23:43 09/15/23 23:30 09/15/23 23:30 09/15/23 23:15 09/15/23 23:15 09/15/23 23:14 09/15/23 23:00 09/15/23 23:00 09/15/23 23:00 09/15/23 22:50 09/15/23 22:46 09/15/23 22:45 09/15/23 22:45 09/15/23 22:40 09/15/23 22:30 09/15/23 22:30 09/15/23 22:30 09/15/23 22:22 09/15/23 22:20 09/15/23 22:20 09/15/23 22:18 09/15/23 22:08 Room Air 09/15/23 21:23 Room Air Transfer of Care Handoff Completed per policy Notes Mental Status: see notes below Patient Amnestic to Procedure: Yes Nausea / Vomiting: adequately controlled Pain: adequately controlled Airway Patency, RR, SpO2: stable & adequate BP & HR: stable & adequate Hydration State: stable & adequate Anesthetic Complications: no major complications apparent and Pt Satisfied with anesthetic care Notes: Patient transported sedated and intubated to ICU given active gastric vs esophageal ulcer with reflux. Patient to be transferred to another facility for furhter evaluation.
[2023-09-16] MEDS ORDERED: PROPOFOL BOLUS FROM BAG IV PRN (13:10)
[2023-09-16] MEDS ORDERED: fentaNYL citrate 2,500 MCG/250 ML BAG IV SCH (13:15)
[2023-09-16] MEDS ORDERED: NOREPINEPHRINE/D5W 4 MG/250 ML PLCT IV SCH (13:15)
--- NOTE | 2023-09-16 13:25 | Critical Care Consultation ---
Date of Consultation September 16, 2023 Assessment & Plan (1) Hematemesis: (2) Shock circulatory: (3) Cirrhosis: (4) Tobacco use: (5) Hypomagnesemia: (6) Hypokalemia: (7) Generalized anxiety disorder: (8) Depression: (9) Asthma: (10) Alcohol abuse: (11) ADD (attention deficit disorder): (12) Coagulopathy: Plan Reason Critically Ill: 38-year-old female presented to the hospital for hematemesis. Was found to have significant variceal bleed as well as questionable gastric bleed. Sent to the ICU for further management while awaiting transfer for TIPS Neuro - [facility] ICU: Negative On fentanyl for sedation Cardiac - -- Tachycardia Likely from acute GI loss Continue to monitor Respiratory - --Vent dependent For airway protection secondary to hematemesis Continue with ventilatory support Keep RASS -1 --History of asthma Not in any exacerbation GI - -- Acute variceal bleed S/p 3 units PRBC Got 2 single donor platelets Continue with Rocephin for SBP prophylaxis --Acute decompensated liver cirrhosis with ascites Plan for TIPS awaiting transfer RENAL/LYTES - -- Monitor BUNs/creatinine Avoid nephrotoxic medications ENDO - ICU hypoglycemia protocol HEME - -- Acute blood loss anemia Despite 3 units PRBC and 2 single donor platelets on 09/16/2023 Monitor H&H and transfuse if hemoglobin less than 7 --Thrombocytopenia Likely from chronic liver cirrhosis Given active bleeding would like the platelets to be greater than 50 --Coagulopathy Likely from underlying liver cirrhosis ID - -- No clear source of infection --Prophylaxis VTE: IPC GI: Protonix drip Lines: Right-sided port and peripheral Diet: N.p.o. Plan: CBC with differential as well as CMP, fibrinogen and lactic acid to be done stat If fibrinogen is low then cryo plus FFP could be thought of. Fentanyl to be started for sedation. Levophed might be needed if the blood pressure starts to go down with sedation Hypokalemia and hypomagnesemia being replaced Place Talbot catheter I have personally spent 68 minutes of critical care time in the direct management of this patient. This is a life/limb threatening event. This includes time spent evaluating patient, direct bedside care, chart review, placing orders, interpretation of diagnostic studies, discussion with consultants, patient, and family members, as well as other required patient management activities. This time is exclusive of all separately billable procedures, and teaching time and separate from and in addition to any other critical care service time. History of Present Illness Attending Physician: Barry Rabago MD History of Present Illness 38-year-old female presented to the hospital for hematemesis Past medical history: Alcoholic liver cirrhosis, anxiety, asthma, heavy drinker Transferred to ICU for further management while awaiting transfer to [place] Patient was taken to endoscopy where significant bleeding was appreciated, 2 bands were placed at the varices, there was a lot of blood in the gastrum. No active bleeding was found, everything seems to be clotted as per nurse orthopedic who did discuss the case with me At the time of examination patient was on octreotide as well as pantoprazole drip Her MAP was in the low 80s systolic in the mid 100s. She was breathing over the vent. Saturation was 100% on 100% FiO2, I went down to 60% FiO2. She was fighting the vent. Extremities were warm to touch. Belly was distended. Rest of the history was obtained from previous chart Allergies Allergy/AdvReac Type Severity Reaction Status Date / Time banana Allergy Intermediate RASH, Verified 09/16/23 01:13 THROAT SLIGHTLY SWOLLEN Penicillins Allergy Unknown HAPPENED Verified 09/16/23 01:13 A CHILD Home Medications Medication Instructions Recorded Confirmed Type albuterol sulfate 90 mcg/actuation 2 inh inhalation BID PRN Shortness 06/24/20 09/16/23 History aerosol inhaler (ProAir HFA) Of Breath budesonide-formoterol HFA 160 2 puff inhalation BID 06/20/21 09/16/23 History mcg-4.5 mcg/actuation aerosol inhaler (Symbicort) dextroamphetamine-amphetamine 5 mg 5 mg PO AMHS 06/20/21 09/16/23 History tablet (Adderall) ipratropium 20 mcg-albuterol 100 1 puff inhalation BID 06/20/21 09/16/23 History mcg/actuation mist for inhalation (Combivent Respimat) loratadine 10 mg tablet 10 mg PO QAM 06/20/21 09/16/23 History montelukast 10 mg tablet 10 mg PO HS 06/20/21 09/16/23 History omeprazole 20 mg capsule,delayed 20 mg PO QAM 06/20/21 09/16/23 History release fluticasone propionate 50 2 spray intranasal QAM PRN 10/03/21 09/16/23 History mcg/actuation nasal allergies spray,suspension multivitamin 1 tab PO QAM 10/03/21 09/16/23 History ondansetron HCl 4 mg tablet 4 mg PO Q8H PRN Nausea 10/31/21 09/16/23 History ascorbic acid (vitamin C) 500 mg 500 mg PO QAM 01/31/22 09/16/23 History tablet (Vitamin C) cholecalciferol (vitamin D3) 50 0 mcg PO QAM 01/31/22 09/16/23 History mcg (2,000 unit) capsule (Vitamin D3) hydroxyzine HCl 25 mg tablet 25 mg PO TID PRN Anxiety 01/31/22 09/16/23 History thiamine HCl (vitamin B1) 100 mg 100 mg PO QAM #30 tabs 03/23/22 09/16/23 Rx tablet magnesium oxide 400 mg (241.3 mg 400 mg PO BID 03/25/22 09/16/23 History magnesium) tablet potassium chloride 20 mEq 20 meq PO QAM 03/25/22 09/16/23 History tablet,extended release sodium di- and 2 tab PO QID 03/25/22 09/16/23 History monophosphate-potassium phos monobasic 250 mg tablet (Phospha Neutral) diclofenac sodium 1 % topical gel 4 g topical TID PRN Pain 10/14/22 09/16/23 History (Voltaren Arthritis Pain) metoclopramide HCl 10 mg tablet 10 mg PO AMHS PRN Nausea 01/07/23 09/16/23 History folic acid 1 mg tablet 1 mg PO QAM 09/16/23 09/16/23 History promethazine 12.5 mg tablet 12.5 mg PO Q6 PRN Nausea 09/16/23 09/16/23 History sertraline 100 mg tablet 100 mg PO QAM 09/16/23 09/16/23 History tiotropium bromide 2.5 2 puff inhalation QAM 09/16/23 09/16/23 History mcg/actuation mist for inhalation (Spiriva Respimat) Patient History Medical History History of COVID-19 2019, tested thru hospital at [place], hospitalized during covid; fatigue, body aches, decreased appetite>resolved. Hemoptysis "sometimes still has this" Acute chest wall pain hx-"from a recent fall where she broke some ribs" Fall 06/2022, fx ribs VAN (acute kidney injury) hx Portal hypertension Alcoholic cirrhosis with abn coags Anemia pre-op H&H 04/15/22: 05/15 History of pancreatitis alcoholic 05/2021 per records GERD (gastroesophageal reflux disease) Pneumonia February 2022 treated at [facility]. denies sob currently Thrombocytopenia Jaundice hx-"not very much now" Acute on chronic alcoholic liver disease "currently trying to get on the transplant list" Decompensated hepatic cirrhosis Hypokalemia Acute hyponatremia Hypomagnesemia Hyperbilirubinemia Rectal bleeding "a little when she's constipated" Alcohol abuse with withdrawal Fatty liver Depression Alcoholic hepatitis Anxiety ADD (attention deficit disorder) Asthma well controlled with inhalers Alcohol abuse Surgical History Hx of colonoscopy History of vascular access device 04/2022, [facility] H/O wisdom tooth extraction History of esophagogastroduodenoscopy (EGD) History of abdominal paracentesis Family History Grandmother Breast cancer Grandfather Heart disease Other No family history of adverse response to anesthesia Social History Smoking Status: Never smoker Tobacco Type: Cigarettes Cigarettes Per Day: 1-2; Second Hand Exposure: No; Do You Dip or Chew Tobacco: No; Hx Alcohol Use: Yes Alcohol type: hard liquor Hx Substance Use: No Preferred Language: French 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 Ability: Effective 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 Beliefs That Will Affect Care: None marital status: Single Current Living Situation: Family Current Living Situation Comment: Apartment current occupational status: employed How many Children do You have: 0 Other Information That Helps Us Care for You: No Feels Safe at Home: Yes Safety Concerns: Feels Safe At This Time Assistive Devices: None Review of Systems 2 Review of Systems: Unobtainable due to endotracheal tube Physical Exam 2 Physical Exam: Constitutional: No acute distress HEENT: PERRLA, positive ETT Respiratory system: Good air entry bilaterally, no wheeze, no rhonchi, no crackles CVS: S1-S2 positive, no murmurs or gallops, tachycardia Abdomen: Soft, nontender, distended, decreased bowel sounds x4, obese Extremities: +2 pulses bilaterally radialis/ dorsalis pedis, no cyanosis, no edema, warm extremities Neuro: Intubated and sedated, breathing over the vent Psych: Able to assess G/U: No Talbot Results & Data Results & Data Vital Signs (Past 12 Hours) Vital Signs Temp Pulse Pulse Resp BP BP Pulse Ox 09/16/23 11:56 36.7 C 93 H 20 87/54 L 95 09/16/23 11:36 36.9 C 91 H 16 92/50 L 94 09/16/23 11:28 37.5 C 93 H 16 94/56 L 95 09/16/23 11:00 91 H 21 93/55 L 95 09/16/23 10:30 94 H 16 102/54 L 95 09/16/23 10:00 95 H 12 91/51 L 92 09/16/23 09:55 37.1 C 94 H 12 91/51 L 93 09/16/23 09:40 37.2 C 96 H 21 92/58 L 95 09/16/23 09:25 37.0 C 94 H 20 83/62 L 98 09/16/23 08:30 91/53 L 09/16/23 06:55 95 H 14 96 09/16/23 06:03 98 H 17 96 09/16/23 06:03 96/68 L 09/16/23 06:02 102 H 14 98 09/16/23 05:45 107/71 09/16/23 05:45 99 H 20 95 09/16/23 05:30 97 H 14 96 09/16/23 05:30 108/73 09/16/23 05:15 99 H 26 H 96 09/16/23 05:15 111/71 09/16/23 05:00 108/75 09/16/23 05:00 100 H 14 95 09/16/23 04:45 101 H 14 95 09/16/23 04:45 107/71 09/16/23 04:30 107/73 09/16/23 04:30 102 H 20 96 09/16/23 04:15 105/74 09/16/23 04:15 102 H 20 94 09/16/23 04:00 105/72 09/16/23 04:00 105 H 19 94 09/16/23 03:50 106 H 16 95 09/16/23 03:45 111/76 09/16/23 03:45 103 H 27 H 96 09/16/23 03:40 103 H 26 H 95 09/16/23 03:27 104 H 14 100/68 97 09/16/23 03:15 114/81 09/16/23 03:15 105 H 15 94 09/16/23 03:00 100 H 25 H 96 09/16/23 03:00 108/74 09/16/23 02:45 112/74 09/16/23 02:45 106 H 27 H 96 09/16/23 02:38 37.1 C 105 H 18 104/75 95 09/16/23 02:30 104/75 09/16/23 02:30 108 H 19 98 09/16/23 02:27 111 H 09/16/23 02:20 09/16/23 02:00 109 H 29 H 96 09/16/23 02:00 106/73 09/16/23 01:45 103/71 09/16/23 01:45 106 H 28 H 97 09/16/23 01:30 107/73 09/16/23 01:30 106 H 23 100 09/16/23 01:18 36.8 C 09/16/23 01:18 107 H 14 109/77 98 09/16/23 01:15 108 H 28 H 97 09/16/23 01:15 109/77 09/16/23 01:05 37.2 C 95 H 15 92/58 L 94 O2 Del Method 09/16/23 11:56 09/16/23 11:36 09/16/23 11:28 Room Air 09/16/23 11:00 09/16/23 10:30 09/16/23 10:00 Room Air 09/16/23 09:55 09/16/23 09:40 09/16/23 09:25 09/16/23 08:30 09/16/23 06:55 Room Air 09/16/23 06:03 09/16/23 06:03 09/16/23 06:02 09/16/23 05:45 09/16/23 05:45 09/16/23 05:30 09/16/23 05:30 09/16/23 05:15 09/16/23 05:15 09/16/23 05:00 09/16/23 05:00 09/16/23 04:45 09/16/23 04:45 09/16/23 04:30 09/16/23 04:30 09/16/23 04:15 09/16/23 04:15 09/16/23 04:00 09/16/23 04:00 09/16/23 03:50 09/16/23 03:45 09/16/23 03:45 09/16/23 03:40 09/16/23 03:27 09/16/23 03:15 09/16/23 03:15 09/16/23 03:00 09/16/23 03:00 09/16/23 02:45 09/16/23 02:45 09/16/23 02:38 Room Air 09/16/23 02:30 09/16/23 02:30 09/16/23 02:27 09/16/23 02:20 Room Air 09/16/23 02:00 09/16/23 02:00 09/16/23 01:45 09/16/23 01:45 09/16/23 01:30 09/16/23 01:30 09/16/23 01:18 09/16/23 01:18 09/16/23 01:15 09/16/23 01:15 09/16/23 01:05 Laboratory Results 09/16/23 08:19 09/16/23 03:59 Coding Level of Care Code 90764 CRITICAL CARE 1ST 30-74M Diagnoses Hematemesis K92.0 Shock circulatory R57.9 Cirrhosis K70.31 Ascites presence: with ascites Hepatic cirrhosis type: alcoholic cirrhosis Tobacco use Z72.0 Hypomagnesemia E83.42 Hypokalemia E87.6 Generalized anxiety disorder F41.1 Depression F32.A Asthma J45.909 Alcohol abuse F10.10 ADD (attention deficit disorder) F98.8 Coagulopathy D68.9 Time Spent (min) 68 (3) Cirrhosis Ascites presence: with ascites Hepatic cirrhosis type: alcoholic cirrhosis Qualified Code(s): K70.31 - Alcoholic cirrhosis of liver with ascites
[2023-09-16] MEDS: POTASSIUM CHLORIDE / WTR 20 MEQ/100 ML PLCT IV SCH ×2 (13:36→15:42)
[2023-09-16] MEDS: propofoL 1,000 MG/100 ML VIAL IV SCH ×2 (13:38→15:54)
[2023-09-16 13:52] LABS: Albumin Globulin Ratio 1.2 (0.9-2); Albumin Level 2.6 gm/dl (3.4-5.0); BUN Creatinine Ratio 30.9 (10-20); Calcium 6.4 mg/dl (8.6-10.3); Creatinine Clr Calc Pharmacy 66.8 ml/min; Est GFR (African American) 87.1 ml/min; Est GFR (Non-African American) 75.1 ml/min; Globulin 2.1 gm/dl (2.5-4.0); Phosphorus 4.1 mg/dl (2.5-4.9); Potassium 3.4 mmol/L (3.5-5.1); Total Protein 4.7 gm/dl (6.0-8.3)
[2023-09-16 14:05] LABS: Fibrinogen 155 mg/dl (184-400)
--- NOTE | 2023-09-16 14:27 | XRay Report ---
XR chest 1V portable CLINICAL HISTORY: f/u COMPARISON STUDY: Chest CT June 30, 2022. Chest radiograph July 26, 2023. FINDINGS: Tip of endotracheal tube is 2.7 cm above the aldair. Right internal jugular [id number] r emains in place. Low lung volumes are again noted. There is no pneumothorax or pleural effusion. Card iomediastinal silhouette is stable. Mild left basilar opacity is present. IMPRESSION: 1. Satisfactory positioning of the endotracheal tube. 2. No pneumothorax. 3. Mild left basilar opacity which could reflect atelectasis or consolidation. ACT 112: Negative or not required by law. Electronically signed by: Luis Zarate M.D. 09/16/2023 2:26 PM
--- NOTE | 2023-09-16 14:45 | Hospitalist Progress Note ---
Date of Service September 16, 2023 Assessment & Plan (1) Hematemesis: Plan: 38-year-old female w/ PMH of mild intermittent asthma, allergic sinusitis, portal hypertension, alcoholic cirrhosis of liver with ascites, history of decompensated hepatic cirrhosis, iron deficiency anemia due to chronic blood loss, thrombocytopenia, ongoing alcoholism, attention deficit disorder, depression, general anxiety disorder admitted 09/16 with hematemesis that started last night CONE RUNNER and had several episodes since then. Pt had both hematemesis and black stool. Pt reported being sober for about a year up until 2 months ago when she started drinking vodka again, about 3 shots at a time, 3 nights a week. No shortness of breath or chest pain. She is being managed for the following: Variceal bleed Hematemesis Acute blood loss anemia: Secondary to above. Patient presented with hematemesis and black stool. EGD done in September 2022 showed grade 1 small esophageal varices and portal hypertensive gastropathy. No gastric varices. Normal duodenum Admitting hemoglobin of 8, transfused 3 units PRBC so far. Status post EGD scope 09/16/23. 2 esophageal varices were banded, concern for gastric varices bleeding. Need for TIPS evaluation/IR capability and hence recommended transfer to tertiary center. Continue with IV PPI, IV octreotide, IV Rocephin, n.p.o. d/w gi, transfer recommended, icu transfer until then. Patient transferred to ICU, patient being managed in ICU. Paperwork for transfer completed, awaiting bed availability. Ongoing alcoholism History of alcohol liver cirrhosis Thrombocytopenia Patient has been counseled in detail the need for abstinence from alcohol. Patient being worked up for liver transplant as an outpatient. Patient aware that her transplant status may be affected due to her ongoing alcohol use. Patient received platelet transfusion due to low platelets and need for scope. Due to acute blood loss anemia/variceal bleeding, patient is being transferred to tertiary center. Continue with FRANCI S protocol, thiamine and folic acid. Depression Anxiety disorder Holding home p.o. medications Asthma: Home inhalers DVT prophylaxis: SCDs, Re: gi bleed Disposition: transfer initiated to [place], await bed and transport arrangement. Full code Admission and Anticipated Discharge Date Admission Date: September 16, 2023 Subjective Patient was seen and examined at bedside. Patient was lying in bed, alert and oriented x 3, reported no abdominal pain, 1 dark black vomitus and 2 bloody bowel movement after coming to the hospital. Patient reports being sober for about a year up until 2 months ago when she started drinking again. She reports drinking 3 shots of vodka on night and for about 3 nights a week. Patient has been counseled in detail the need for alcohol abstinence, she voices understanding. Discussed with GI after patient underwent upper scope, due to complicated variceal bleeding patient is transfer to tertiary center. Paperwork completed. Patient again seen at bedside, at this time patient was intubated. Patient's significant other Artis was given a phone call and updated about patient's intubated status and need for transfer to tertiary center. He voiced understanding and was agreeable to plan of care. Physical Exam Physical Exam: GENERAL: intubated, sedated. HEENT: No pallor, + icterus. Pupils equal, round and reactive to light. Oral mucosa dry. NECK: No JVD, no neck masses. HEART: S1 and S2 heard. Regular rate and rhythm. No murmur, no gallop. RESPIRATORY SYSTEM: Normal AP diameter. No accessory muscle use. No wheezing, no crackles. ABDOMEN: Soft, bowel sounds present, nontender, no distention. CENTRAL NERVOUS SYSTEM: No facial droop. Speech is clear CONE RUNNER intubation. Obeys simple commands. Moves extremities. EXTREMITIES: No edema, no erythema seen. Results & Data Results & Data Vital Signs (Past 12 Hours) Vital Signs Temp Pulse Pulse Resp BP BP Pulse Ox 09/16/23 14:20 09/16/23 14:15 37.2 C 88 15 99 09/16/23 14:04 87 09/16/23 14:00 37.2 C 88 15 99 09/16/23 14:00 109/68 09/16/23 13:45 93/56 L 09/16/23 13:45 37.4 C 93 H 15 98 09/16/23 13:30 97/54 L 09/16/23 13:30 37.3 C 108 H 20 97 09/16/23 13:25 99 H 18 96 09/16/23 13:25 92/48 L 09/16/23 13:20 94/51 L 09/16/23 13:20 99 H 18 96 09/16/23 13:15 97 H 18 95 09/16/23 13:15 88/49 L 09/16/23 13:10 111/61 100 09/16/23 13:08 100 H 27 H 100 09/16/23 13:05 99 H 18 103/54 L 100 09/16/23 13:05 99 H 18 103/54 L 96 09/16/23 13:00 101 H 16 98/52 L 100 09/16/23 12:50 102 H 15 54/43 L 98 09/16/23 11:56 36.7 C 93 H 20 87/54 L 95 09/16/23 11:36 36.9 C 91 H 16 92/50 L 94 09/16/23 11:28 37.5 C 93 H 16 94/56 L 95 09/16/23 11:00 91 H 21 93/55 L 95 09/16/23 10:30 94 H 16 102/54 L 95 09/16/23 10:00 95 H 12 91/51 L 92 09/16/23 09:55 37.1 C 94 H 12 91/51 L 93 09/16/23 09:40 37.2 C 96 H 21 92/58 L 95 09/16/23 09:25 37.0 C 94 H 20 83/62 L 98 09/16/23 08:30 91/53 L 09/16/23 06:55 95 H 14 96 09/16/23 06:03 98 H 17 96 09/16/23 06:03 96/68 L 09/16/23 06:02 102 H 14 98 09/16/23 05:45 107/71 09/16/23 05:45 99 H 20 95 09/16/23 05:30 97 H 14 96 09/16/23 05:30 108/73 09/16/23 05:15 99 H 26 H 96 09/16/23 05:15 111/71 09/16/23 05:00 108/75 09/16/23 05:00 100 H 14 95 09/16/23 04:45 101 H 14 95 09/16/23 04:45 107/71 09/16/23 04:30 107/73 09/16/23 04:30 102 H 20 96 09/16/23 04:15 105/74 09/16/23 04:15 102 H 20 94 09/16/23 04:00 105/72 09/16/23 04:00 105 H 19 94 12/27/23 03:50 106 H 16 95 09/16/23 03:45 111/76 09/16/23 03:45 103 H 27 H 96 09/16/23 03:40 103 H 26 H 95 09/16/23 03:27 104 H 14 100/68 97 09/16/23 03:15 114/81 09/16/23 03:15 105 H 15 94 09/16/23 03:00 100 H 25 H 96 09/16/23 03:00 108/74 09/16/23 02:45 112/74 09/16/23 02:45 106 H 27 H 96 09/16/23 02:38 37.1 C 105 H 18 104/75 95 09/16/23 02:30 104/75 09/16/23 02:30 108 H 19 98 O2 Del Method FiO2 09/16/23 14:20 Mechanical Vent 40 09/16/23 14:15 09/16/23 14:04 09/16/23 14:00 09/16/23 14:00 09/16/23 13:45 09/16/23 13:45 09/16/23 13:30 09/16/23 13:30 09/16/23 13:25 09/16/23 13:25 09/16/23 13:20 09/16/23 13:20 09/16/23 13:15 09/16/23 13:15 09/16/23 13:10 Mechanical Vent 40 09/16/23 13:08 40 09/16/23 13:05 Mechanical Vent 40 09/16/23 13:05 Mechanical Vent 40 09/16/23 13:00 Mechanical Vent 40 09/16/23 12:50 Mechanical Vent 40 09/16/23 11:56 09/16/23 11:36 09/16/23 11:28 Room Air 09/16/23 11:00 09/16/23 10:30 09/16/23 10:00 Room Air 09/16/23 09:55 09/16/23 09:40 09/16/23 09:25 09/16/23 08:30 09/16/23 06:55 Room Air 09/16/23 06:03 09/16/23 06:03 09/16/23 06:02 09/16/23 05:45 09/16/23 05:45 09/16/23 05:30 09/16/23 05:30 09/16/23 05:15 09/16/23 05:15 09/16/23 05:00 09/16/23 05:00 09/16/23 04:45 09/16/23 04:45 09/16/23 04:30 09/16/23 04:30 09/16/23 04:15 09/16/23 04:15 09/16/23 04:00 09/16/23 04:00 09/16/23 03:50 09/16/23 03:45 09/16/23 03:45 09/16/23 03:40 09/16/23 03:27 09/16/23 03:15 09/16/23 03:15 09/16/23 03:00 09/16/23 03:00 09/16/23 02:45 09/16/23 02:45 09/16/23 02:38 Room Air 09/16/23 02:30 09/16/23 02:30
[2023-09-16 14:54] LABS: Hematocrit (blood only) 20.6 % (37.0-47.0); Mean Corpuscular Hemoglobin 32.4 pg (25.0-34.0); Mean Corpuscular Volume 95.4 fL (80.0-100.0); Nucleated RBC # (auto) 0.04 K/uL (0.00-0.12); Nucleated RBC % (auto) 0.7 %; Platelet Count 44 K/uL (130-400); RDW Coefficient of Variation 17.8 % (11.5-14.5); RDW Standard Deviation 61.3 fL (36.4-46.3); Red Blood Count 2.16 M/uL (4.20-5.40); White Blood Count 6.14 K/ul (4.8-10.8)
[2023-09-16] MEDS ORDERED: SODIUM CHLORIDE 0.9% 250 ML IV PRN (15:25)
[2023-09-16 15:31] LABS: Anisocytosis Present; Basophils # (auto) 0.05 K/uL (0.00-0.20); Basophils % (auto) 0.8 %; Eosinophils # (auto) 0.09 K/uL (0.00-0.50); Eosinophils % (auto) 1.5 %; Immature Granulocytes # (auto) 0.03 K/uL (0.01-0.20); Immature Granulocytes % (auto) 0.5 %; Lymphocytes # (auto) 1.08 K/uL (1.20-3.40); Lymphocytes % (auto) 17.6 %; Monocytes # (auto) 0.46 K/uL (0.11-0.59); Monocytes % (auto) 7.5 %; Neutrophils # (auto) 4.43 K/uL (1.40-6.50); Neutrophils % (auto) 72.1 %
[2023-09-16] MEDS ORDERED: STAT IV/IM STA (16:12)
[2023-09-16] MEDS ORDERED: CALCIUM GLUCONATE 10% 1,000 MG in SODIUM CHLOR 0.9% MINI-B 50 ML IV STA (16:15)
--- NOTE | 2023-09-16 16:53 | Discharge Summary ---
Date of Service September 16, 2023 Admission HPI Per Admitting Provider 38-year-old female past med significant for mild intermittent asthma, allergic sinusitis, portal hypertension, alcoholic cirrhosis of liver with ascites, history of decompensated hepatic cirrhosis, iron deficiency anemia due to chronic blood loss, thrombocytopenia, ongoing alcoholism, attention deficit disorder, depression, general anxiety disorder presents with hematemesis starting last night and had several episodes. Patient states since last night she reports 6 episodes of bloody vomiting and also some blood in the stools. Yesterday she had 3 shots of vodka. States lately she is not drinking every day but drinking 5 shots of vodka 2 times a week. Has some headache. Some runny nose. Some sore throat. No shortness of breath or chest pain. Has some abdominal discomfort. Resting comfortably and hemodynamically stable. Feeling hot and cold. Past medical history. As mentioned above Past surgical history. Colonoscopy and EGD. Family history. Maternal grandmother had breast cancer and melanoma. Paternal uncle had heart attack. Paternal grandfather had lung cancer. Admission Exam Per Admitting Provider General- Not in distress Head- atraumatic Eyes- PERRL, EOMI. ENT- oropharynx clear Neck- supple, no JVD, Lungs- clear to auscultation no wheezing or crackles. Heart- regular rhythm; no murmur, no gallop. Abdomen- normal bowel sounds, soft, nontender, no distension. Extremities- no pretibial edema, no erythema seen Neuro- alert, oriented x 3; PERRL, no facial palsy; no dysarthria; moves extremities. Skin- warm & dry Principal Diagnosis variceal bleed Discharge Exam GENERAL: intubated, sedated. HEENT: No pallor, + icterus. Pupils equal, round and reactive to light. Oral mucosa dry. NECK: No JVD, no neck masses. HEART: S1 and S2 heard. Regular rate and rhythm. No murmur, no gallop. RESPIRATORY SYSTEM: Normal AP diameter. No accessory muscle use. No wheezing, no crackles. ABDOMEN: Soft, bowel sounds present, nontender, no distention. CENTRAL NERVOUS SYSTEM: No facial droop. Speech is clear WEAVER NEEDLE LOOM intubation. Obeys simple commands. Moves extremities. EXTREMITIES: No edema, no erythema seen. Discharge Data Allergies Allergy/AdvReac Type Severity Reaction Status Date / Time banana Allergy Intermediate RASH, Verified 12/27/23 01:13 THROAT SLIGHTLY SWOLLEN Penicillins Allergy Unknown HAPPENED Verified 09/16/23 01:13 A CHILD Consultations 09/15/23 22:42 ED Decision to Admit Stat 09/16/23 08:00 Consult Gastroenterology Routine 09/16/23 12:52 Burn CD for patient Stat 09/16/23 14:35 Consult Grape Cutter Routine Procedures Performed Operation Date: 09/16/23 08:40 Actual Procedures p EGD Hemostasis - Saumya Bañuelos DO Hospital Course (1) Hematemesis: 38-year-old female w/ PMH of mild intermittent asthma, allergic sinusitis, portal hypertension, alcoholic cirrhosis of liver with ascites, history of decompensated hepatic cirrhosis, iron deficiency anemia due to chronic blood loss, thrombocytopenia, ongoing alcoholism, attention deficit disorder, depression, general anxiety disorder admitted 09/16 with hematemesis that started last night WEAVER NEEDLE LOOM and had several episodes since then. Pt had both hematemesis and black stool. Pt reported being sober for about a year up until 2 months ago when she started drinking vodka again, about 3 shots at a time, 3 nights a week. No shortness of breath or chest pain. She was being managed for the following: Variceal bleed Hematemesis Acute blood loss anemia: Secondary to above. Patient presented with hematemesis and black stool. EGD done in September 2022 showed grade 1 small esophageal varices and portal hypertensive gastropathy. No gastric varices. Normal duodenum Admitting hemoglobin of 8, transfused 3 units PRBC so far. Status post EGD scope 09/16/23. 2 esophageal varices were banded, concern for gastric varices bleeding. Need for TIPS evaluation/IR capability and hence recommended transfer to tertiary center. Continue with IV PPI, IV octreotide, IV Rocephin, n.p.o. d/w gi, transfer recommended, icu transfer until then. Patient transferred to ICU, patient being managed in ICU. Paperwork for transfer completed, awaiting bed availability. Ongoing alcoholism History of alcohol liver cirrhosis Thrombocytopenia Patient has been counseled in detail the need for abstinence from alcohol. Patient being worked up for liver transplant as an outpatient. Patient aware that her transplant status may be affected due to her ongoing alcohol use. Patient received platelet transfusion due to low platelets and need for scope. Due to acute blood loss anemia/variceal bleeding, patient is being transferred to tertiary center. Continue with FRANCI S protocol, thiamine and folic acid. Depression Anxiety disorder Holding home p.o. medications Asthma: Home inhalers DVT prophylaxis: SCDs, Re: gi bleed Disposition: transfer initiated to [place], await bed and transport arrangement. Full code Patient being transferred to [facility]. Home Health Attestation I certify that this patient is under my care and that I, or a physicians property assistant working with me, had a face to-face encounter that meets the home health [id number] encounter requirements with this patient. The encounter with the patient was in whole, or in part, for the following medical condition, which is the primary reason for home health care (list medical condition): I certify that, based on my findings, the following services are medically necessary home health services: My clinical findings support the need for the above services because: Further, I certify that my clinical findings support that this patient is homebound (i.e. absences from home require considerable and taxing effort and are for medical reasons or restoration services or infrequently or of short duration when for other reasons) because: Certification for Home Health Services: Based on the above findings, I certify that this patient is confined to the home and needs intermittent longterm care, physical therapy and/or speech therapy or continues to need occupational therapy. The patient is under my care, and I have initiated the establishment of the plan of care. This patient will be followed by a physician who will periodically review the plan of care. Total Time Total Time Spent Total Time Spent (In Minutes): 45 Discharge Plan Discharge Items Patient Disposition: Transfer Acute Care Hospital Reason For Visit: HEMATEMESIS, ANEMIA Discharge Diagnosis: Variceal bleeding Activity: As commented below Activity Comment: Per tertiary care center recommendation. Non-emergency contact: Primary Care Provider Call non-emergency contact if: you have any medication questions, your symptoms worsen and your temperature is above 101 Follow-up/Referrals: Zaina Bunch MD [Primary Care Provider] - Diet: Other - See Diet Comment Diet Comment: NPO Addtl Attending Provider Instructions: Your prior to arrival medications are reconciled as it is on discharge med rec. Current inpatient medications are copied and pasted here for the sake of comparison. Current Inpatient Medications Albuterol (Albuterol Hfa 8 Gm Inhaler) 2 puffs INH BID PRN PRN Reason: Shortness Of Breath Stop: 10/16/23 02:19 Albuterol (Albuterol Hfa 8 Gm Inhaler (Combivent Respimat P&T Subs)) 1 puffs INH BIDR JUAN; Protocol Stop: 10/16/23 06:59 Last Admin: 09/16/23 06:56 Dose: 1 puffs Atropine Sulfate (Atropine Sulfate 0.1 Mg/Ml 10ml Syr) 0.5 mg IV Q1M PRN PRN Reason: PACU Use-HR<40 &/or Bradycardi Stop: 09/16/23 19:42 Ephedrine Sulfate (Ephedrine Sulfate 50 Mg/Ml Amp) 5 mg IV Q5M PRN PRN Reason: PACU Use Only-SBP<90 mmHg Stop: 09/16/23 19:42 Fentanyl Citrate (Fentanyl Citrate Pf 100 Mcg/2 Ml Vial) 25 mcg IV Q5M PRN PRN Reason: PACU Use Only-Pain Stop: 09/16/23 19:42 Fentanyl Citrate (Fentanyl Bolus From Bag) 50 mcg IV Q60M PRN PRN Reason: Pain or Agitation Stop: 09/30/23 13:00 Fluticasone/Vilanterol (Fluticasone/Vilanterol 200/25mcg 14 Puffs/Inhaler) 1 puffs INH DAILY JUAN Stop: 10/16/23 08:59 Last Admin: 09/16/23 09:28 Dose: 1 puffs Pantoprazole Sodium 40 mg/ (Dextrose) 100 mls @ 20 mls/hr IV Q5H [facility] Stop: 10/15/23 22:44 Last Admin: 09/16/23 13:37 Dose: 8 mg/hr, 20 mls/hr Octreotide Acetate 500 mcg/ (Sodium Chloride) 100.5 mls @ 10.05 mls/hr IV .Q10H [facility] Stop: 10/15/23 22:44 Last Admin: 09/16/23 07:58 Dose: 50 mcg/hr, 10.1 mls/hr Lorazepam 1 mg/ Syringe 1 mls @ 2 mls/min IV UD PRN; Protocol PRN Reason: EtOH Withdrawal AWSS Score 6,7 Stop: 10/15/23 23:25 Last Admin: 09/16/23 00:07 Dose: 2 mls/min Lorazepam 2 mg/ Syringe 2 mls @ 2 mls/min IV UD PRN; Protocol PRN Reason: EtOH Withdrawal AWSS Score 8,9 Stop: 10/15/23 23:25 Lorazepam 3 mg/ Syringe 3 mls @ 2 mls/min IV ONCE PRN; Protocol PRN Reason: EtOH Withdrawal AWSS Score 10+ Sodium Chloride (Nss) 1,000 mls @ 50 mls/hr IV .Q20H JUAN Stop: 10/16/23 02:19 Last Admin: 09/16/23 03:15 Dose: 50 mls/hr Thiamine HCl 100 mg/ Syringe 10 mls @ 2 mls/min IV QAM JUAN Stop: 10/16/23 08:59 Last Admin: 09/16/23 07:59 Dose: 2 mls/min Folic Acid 1 mg/ Syringe 10 mls @ 5 mls/min IV QAM JUAN Stop: 10/16/23 08:59 Last Admin: 09/16/23 07:59 Dose: 5 mls/min Ceftriaxone Sodium 2,000 mg/ (Dextrose) 50 mls @ 100 mls/hr IV Q24H [facility]; Protocol Stop: 09/26/23 07:59 Last Infusion: 09/16/23 08:37 Dose: Infused Norepinephrine Bitartrate (Levophed/D5w) 4 mg in 250 mls @ 15.803 mls/hr IV .[id number] JUAN; Protocol Stop: 10/16/23 13:14 Last Titration: 09/16/23 14:16 Dose: 0.07 mcg/kg/min, 15.8 mls/hr Potassium Chloride (K Rivera / Wtr) 20 meq in 100 mls @ 50 mls/hr IV Q2H JUAN Stop: 09/16/23 17:14 Last Admin: 09/16/23 13:36 Dose: 50 mls/hr Propofol (Diprivan) 1,000 mg in 100 mls @ 18.06 mls/hr IV .[id number] JUAN; Protocol Stop: 09/19/23 13:14 Last Titration: 09/16/23 14:08 Dose: 50 mcg/kg/min, 18.1 mls/hr Fentanyl Citrate (Fentanyl Citrate) 2,500 mcg in 250 mls @ 10 mls/hr IV .Q25H JUAN; Protocol Stop: 09/30/23 13:14 Last Titration: 09/16/23 14:08 Dose: 100 mcg/hr, 10 mls/hr Ipratropium [place] (Ipratropium Hfa Inhaler (Combivent Respimat P&T Subs)) 1 puffs INH BIDR JUAN; Protocol Stop: 10/16/23 06:59 Last Admin: 09/16/23 06:57 Dose: 1 puffs Miscellaneous (Ativan Iv Alcohol Withdrawal--Active Protocol) 1 each IV UD PRN; Protocol PRN Reason: EtoH Withdrawal AWSS 6-10+ Stop: 10/15/23 23:25 Nitroglycerin (Nitroglycerin Sl 0.4 Mg/Tab Tab) 0.4 mg SL Q5M PRN PRN Reason: Chest Pain Stop: 10/16/23 02:19 Ondansetron HCl (Ondansetron Inj 2 Mg/Ml 2 Ml Vial) 4 mg IV Q6H PRN PRN Reason: Nausea Stop: 10/16/23 02:19 Ondansetron HCl (Ondansetron Inj 2 Mg/Ml 2 Ml Vial) 4 mg IV ONCE PRN PRN Reason: PACU Use Only-Nausea/Vomiting Stop: 09/16/23 19:42 Propofol (Propofol Bolus From Bag) 20 mg IV Q5M PRN PRN Reason: Sedation Stop: 09/19/23 13:09 Umeclidinium [place] (Umeclidinium [place] 62.5mcg/Blister 7 Puffs/Inhaler) 1 puffs INH DAILY [facility] Stop: 10/16/23 08:59 Last Admin: 09/16/23 09:28 Dose: 1 puffs Pending Studies at Discharge: No Stand-Alone Forms: My [facility] Skilled Items Patient informed of condition?: Yes DNR: No Discharge Level of Care: Other Communicable Disease: No Discharge Prognosis: Other Lines: Peripheral IV Urinary Catheter: Yes Medications and DC Order Prescriptions: Continued albuterol sulfate [ProAir HFA] 90 mcg/actuation Hfa Aerosol Inhaler 2 inh INHALATION BID PRN (Reason: Shortness Of Breath) Rx Instructions: Is ordered 2 puffs q 4hrs prn for wheezing, patient takes 2 puffs bid. omeprazole 20 mg Capsule,Delayed Release(Dr/Ec) 20 mg PO QAM montelukast 10 mg Tablet 10 mg PO HS dextroamphetamine-amphetamine [Adderall] 5 mg Tablet 5 mg PO AMHS loratadine 10 mg Tablet 10 mg PO QAM budesonide-formoterol [Symbicort] 160-4.5 mcg/actuation Hfa Aerosol Inhaler 2 puff INHALATION BID Combivent Respimat 20-100 mcg/actuation Mist 1 puff INHALATION BID multivitamin Tablet 1 tab PO QAM fluticasone propionate 50 mcg/actuation [place],Suspension 2 spray INTRANASAL QAM PRN (Reason: allergies) ascorbic acid (vitamin C) [Vitamin C] 500 mg Tablet 500 mg PO QAM cholecalciferol (vitamin D3) [Vitamin D3] 50 mcg (2,000 unit) Capsule 0 mcg PO QAM hydroxyzine HCl 25 mg tablet 25 mg PO TID PRN (Reason: Anxiety) magnesium oxide 400 mg (241.3 mg magnesium) tablet 400 mg PO BID Rx Instructions: take 2 hours before or after Phospha 250 neutral. potassium chloride 20 mEq tablet extended release 20 meq PO QAM Phospha 250 Neutral 250 mg tablet 2 tab PO QID metoclopramide HCl 10 mg Tablet 10 mg PO AMHS PRN (Reason: Nausea) Rx Instructions: administer 30 minutes before meals promethazine 12.5 mg tablet 12.5 mg PO Q6 PRN (Reason: Nausea) sertraline 100 mg tablet 100 mg PO QAM folic acid 1 mg tablet 1 mg PO QAM Spiriva Respimat 2.5 mcg/actuation mist 2 puff INHALATION QAM ondansetron HCl 4 mg Tablet 4 mg PO Q8H PRN (Reason: Nausea) thiamine HCl (vitamin B1) 100 mg Tablet 100 mg PO QAM Qty: 30 0RF diclofenac sodium [Voltaren Arthritis Pain] 1 % gel 4 g topical TID PRN (Reason: Pain) Discharge Orders: Discharge Order (Routine); Ordered 09/16/23 Ordered By: Barry Rabago Admission Data Admit Date/Time: 09/16/23 01:38 Attending Provider: Barry Rabago Admit Provider: Yossi Russo Primary Care Provider: Zaina Bunch Other Providers: Yossi Russo; Deanne Vazquez; Vlad Taylor; Nicole Roper; Isabelle Riddle; Amanda Lind; Huber Zamorano; Junior Holder; Sharon Hamilton; Lavon Salcido; Sachi Lisa; Arik Byrne; Rajni Navarro; Mari Sharpe; Janki Tomlinson; Anabela Galarza; Sweetie Acosta; Shankar Callaway; Jas Monroe; Saumya Bañuelos; Lucía Alba Jr; Mukul Hancock
[2023-09-17 01:17] LABS: iSTAT Allen Test Pass; iSTAT Art Bld Gas pCO2 Correct 34 mmHg (35-46); iSTAT Art Bld Gas pH Corrected 7.493 (7.35-7.45); iSTAT Arterial Blood Gas HCO3 26 meg/L (19-24); iSTAT Arterial Blood Gas pCO2 33 mmHg (35-46); iSTAT Arterial Blood Gas pO2 86 mmHg (80-95); iSTAT Arterial Blood Gas pO2 C 88; iSTAT Carbon Dioxide 27 mmol/L (24-31); iSTAT FiO2 40 %; iSTAT Hematocrit 18 % (37-47); iSTAT Hemoglobin 6.1 g/dl (12.0-16.0); iSTAT Potassium 3.4 mmol/L (3.3-5.0); iSTAT Site L Radial; iSTAT Sodium 137 mmol/L (135-144)
== END 2023-09-16 16:41 | disposition short-term general hospital (02) | DRG 441 ==
LOC: ED 21:20 → INTOOBSV 09-16 01:38 → EDINP 09-16 01:38 → 1E 09-16 12:49

== ENCOUNTER 2024-01-26 14:41 | Inpatient (IN) ==
--- NOTE | 2024-01-26 15:15 | Emergency Department Note ---
Impression & Plan Acute GI bleeding, Cirrhosis of liver, Anemia, Weakness ED Provider Note NAME: CARMEN BOUCHER AGE: 38 SEX: F : 1985 ARRIVES VIA: Walk-In INFORMANT: Patient, ED PROVIDER(S): Trevor Sainz DO CHIEF COMPLAINT: Weakness HPI: The patient is a 38-year-old female who presented to the emergency department for an evaluation of weakness. The patient has a history of cirrhosis. The patient is a history of alcohol abuse in the past. She did relapse and use alcohol recently. She states that she is been noticing dark stool. 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 She had laboratory studies done which showed a significant drop in her hemoglobin. The patient presented to the emergency department for further evaluation. She was sent by her gastroenterology group. The patient is noticing dark stool. She denies having any hematemesis. She had a recent TIPS procedure done at [facility] in September of this year. ROS: See above HPI for pertinent positives & negatives. A total of 10 systems reviewed and were otherwise negative. PAST MEDICAL HISTORY: See Below PAST SURGICAL HISTORY: See Below FAMILY HISTORY: See Below SOCIAL HISTORY: See Below HOME MEDICATIONS: See Below ALLERGIES: See Below VITALS: See Below PHYSICAL EXAMINATION: GENERAL: Patient is awake alert in no acute distress patient is resting comfortably and showing no signs of anxiety EYES: The conjunctivae are icteric. The pupils are round and reactive. EARS, NOSE, MOUTH AND THROAT: The nose is without any evidence of any deformity. NECK: The neck is nontender and supple. RESPIRATORY: Normal respiratory effort is noted there is no evidence of wheezing rhonchi or rales CARDIOVASCULAR: Regular rate and rhythm noted there no murmurs rubs or gallops normal S1 normal S2. GASTROINTESTINAL: The abdomen is distended. The liver is below the costovertebral angle. There is no tenderness guarding rigidity. Rectal exam revealed dark stool that was strongly positive. MUSCULOSKELETAL/EXTREMITIES: There is no evidence of gross deformity full range of motion is noted in the hips and shoulders. SKIN: There is no obvious evidence of any rash. There are no petechiae, pallor or cyanosis noted. NEUROLOGIC: Patient is awake alert and oriented x3 MEDICAL DECISION MAKING: The patient is a 38-year-old female who presented to the emergency department for an evaluation of generalized weakness. She had outpatient laboratory studies that showed she was very anemic. She does have a history of alcoholic cirrhosis. She has been drinking again. The patient was noted to have a very elevated bilirubin as well as anemia. She notices dark stool. She has a history of esophageal varices as well as a recent TIPS procedure with revision. The patient was seen by her family doctor recently. She was sent to the emergency department because of abnormal labs. The patient was found to have significant anemia. She was started on proton pump inhibitor H2 chencho as well as octreotide. She was also given IV antibiotics. I did order transfusion on the patient. I consented the patient for blood. I discussed the patient's laboratory and radiographic studies with her. [facility]. [facility] have agreed to evaluate the patient in the emergency department for further management and disposition. Triage Nursing notes reviewed. Prior medical records reviewed Vital Signs: reviewed and remarkable for tachycardia. Differential diagnosis: Infection, dehydration, metabolic abnormality, hypo/hyperglycemia, electrolyte disturbance, anemia, hypoxia, cardiac sources, intracerebral event, toxicologic, neurologic, as well as other pathologies. ER treatment provided: See below Diagnostics interpreted by me: ECG: EKG was obtained in the emergency department. My interpretation is normal sinus rhythm at [address] segment abnormalities noted. This was compared to a tracing from August 05, 2023. No specific changes were noted. Cardiac Monitoring: An order was placed for continuous cardiac monitoring. The monitor shows a rate of 86 bpm with sinus rhythm. Laboratory studies: As stated above and show below. Imaging studies: See below. Radiographic imaging was reviewed by myself Consultation(s): I discussed this case with Amy who is on-call for the [facility] hospitalist group. ED COURSE: Procedures: none Critical Care: I have personally spent greater than 45 minutes of critical care time in the direct management of this patient. This includes bedside care, interpretation of diagnostic studies, and testing, discussion with consultants, patient, and family members, and other required patient management activities. This 45 minutes is in excess of all separately billable procedures. Past Med/Surg History Medical History History of COVID-2019, tested thru hospital at [place], hospitalized during covid; fatigue, body aches, decreased appetite>resolved. Hemoptysis "sometimes still has this" Acute chest wall pain hx-"from a recent fall where she broke some ribs" Fall 06/2022, fx ribs VAN (acute kidney injury) hx Portal hypertension Alcoholic cirrhosis with abn coags Anemia pre-op H&H 04/15/22: 05/15 History of pancreatitis alcoholic 05/2021 per records GERD (gastroesophageal reflux disease) Pneumonia February 2022 treated at [facility]. denies sob currently Thrombocytopenia Jaundice hx-"not very much now" Acute on chronic alcoholic liver disease "currently trying to get on the transplant list" Decompensated hepatic cirrhosis Hypokalemia Acute hyponatremia Hypomagnesemia Hyperbilirubinemia Rectal bleeding "a little when she's constipated" Alcohol abuse with withdrawal Fatty liver Depression Alcoholic hepatitis Anxiety ADD (attention deficit disorder) Asthma well controlled with inhalers Alcohol abuse Surgical History Hx of colonoscopy History of vascular access device 04/2022, [facility] H/O wisdom tooth extraction History of esophagogastroduodenoscopy (EGD) History of abdominal paracentesis Family History Grandmother Breast cancer Grandfather Heart disease Other No family history of adverse response to anesthesia Social History Smoking Status: Current every day smoker Tobacco Type: Cigarettes Cigarettes Per Day: 1-2; Second Hand Exposure: No; Do You Dip or Chew Tobacco: No; Hx Alcohol Use: Yes Alcohol type: hard liquor Hx Substance Use: No Preferred Language: [place] Islander 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 Ability: Effective 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 Beliefs That Will Affect Care: None marital status: Single Current Living Situation: Family Current Living Situation Comment: Apartment current occupational status: employed How many Children do You have: 0 Feels Safe at Home: Yes Assistive Devices: None Allergies Allergies Allergy/AdvReac Type Severity Reaction Status Date / Time banana Allergy Intermediate RASH, Verified 09/16/23 01:13 THROAT SLIGHTLY SWOLLEN Penicillins Allergy Unknown HAPPENED Verified 09/16/23 01:13 A CHILD Home Meds Home Medications Medication Instructions Recorded Confirmed albuterol sulfate 90 mcg/actuation 2 inh inhalation BID PRN Shortness 06/24/20 01/26/24 aerosol inhaler (ProAir HFA) Of Breath budesonide-formoterol HFA 160 2 puff inhalation BID 06/20/21 01/26/24 mcg-4.5 mcg/actuation aerosol inhaler (Symbicort) dextroamphetamine-amphetamine 5 mg 5 mg PO AMPM 06/20/21 01/26/24 tablet (Adderall) ipratropium 20 mcg-albuterol 100 1 puff inhalation BID 06/20/21 01/26/24 mcg/actuation mist for inhalation (Combivent Respimat) loratadine 10 mg tablet 10 mg PO QAM 06/20/21 01/26/24 montelukast 10 mg tablet 10 mg PO HS 06/20/21 01/26/24 omeprazole 20 mg capsule,delayed 20 mg PO QAM 06/20/21 01/26/24 release fluticasone propionate 50 2 spray intranasal QAM PRN 10/03/21 01/26/24 mcg/actuation nasal allergies spray,suspension multivitamin 1 tab PO QAM 10/03/21 01/26/24 ascorbic acid (vitamin C) 500 mg 500 mg PO QAM 01/31/22 01/26/24 tablet (Vitamin C) cholecalciferol (vitamin D3) 50 0 mcg PO QAM 01/31/22 01/26/24 mcg (2,000 unit) capsule (Vitamin D3) magnesium oxide 400 mg (241.3 mg 400 mg PO BID 03/25/22 01/26/24 magnesium) tablet potassium chloride 20 mEq 20 meq PO QAM 03/25/22 01/26/24 tablet,extended release diclofenac sodium 1 % topical gel 4 g topical TID PRN Pain 10/14/22 01/26/24 (Voltaren Arthritis Pain) metoclopramide HCl 10 mg tablet 10 mg PO AMHS PRN Nausea 01/07/23 01/26/24 folic acid 1 mg tablet 1 mg PO QAM 09/16/23 01/26/24 promethazine 12.5 mg tablet 12.5 mg PO Q6 PRN Nausea 09/16/23 01/26/24 lactulose 10 gram/15 mL oral 10 g PO QID 01/26/24 01/26/24 solution Previous Rx's Medication Instructions Recorded thiamine HCl (vitamin B1) 100 mg 100 mg PO QAM #30 tabs 03/23/22 tablet Results & Data (ED) Vital Signs Vital Signs - 24 hr 01/26/24 14:52 Temperature 36.9 C Temperature Source Oral Pulse Rate 96 H Respiratory Rate 14 Blood Pressure 103/64 Blood Pressure Mean 77 Pulse Oximetry 98 Oxygen Delivery Method Room Air Sepsis Recent Fever Within 48 Hours No Sepsis New/Unexplained Change in Mental Status N/A Sepsis Action Taken by Nursing No Action Required Home Medications Current Medication List: was personally reviewed by me Laboratory Data Attestation: I reviewed the patient's lab results. 01/26/24 15:19 01/26/24 15:19 Lab Results 01/26/24 01/26/24 Range/Units 15:19 15:39 WBC 2.40 L (4.8-10.8) K/ul RBC 1.62 L (4.20-5.40) M/uL Hgb 5.8 L* (12.0-16.0) g/dl POC Hgb 5.4 L* (12.0-16.0) g/dl Hct 18.7 L* (37.0-47.0) % POC Hct 16 L* (37-47) % MCV 115.4 H (80.0-100.0) fL MCH 35.8 H (25.0-34.0) pg MCHC 31.0 L (32.0-36.0) g/dL RDW Std Deviation 63.9 H (36.4-46.3) fL RDW Coeff of Yasmine 15.1 H (11.5-14.5) % Plt Count 39 L (130-400) K/uL MPV 11.2 (9.4-12.4) fL Immature Gran % (Auto) 0.4 % Neut % (Auto) 75.4 % Lymph % (Auto) 9.6 % Nolan % (Auto) 12.9 % Eos % (Auto) 1.3 % Baso % (Auto) 0.4 % Neut # (Auto) 1.81 (1.40-6.50) K/uL Lymph # (Auto) 0.23 L (1.20-3.40) K/uL Nolan # (Auto) 0.31 (0.11-0.59) K/uL Eos # (Auto) 0.03 (0.00-0.50) K/uL Baso # (Auto) 0.01 (0.00-0.20) K/uL Immature Gran # (Auto) 0.01 (0.01-0.20) K/uL Macrocytosis Present PT 20.1 H (9.0-12.0) Seconds INR 2.0 H (0.9-1.1) APTT 39 H (21-31) Seconds PTT Ratio 1.4 POC Sodium 136 (135-144) mmol/L Sodium 131 L (136-145) mmol/L POC Potassium 3.0 L (3.3-5.0) mmol/L Potassium 3.0 L (3.5-5.1) mmol/L POC Chloride 108 (101-112) mmol/L Chloride 109 H (98-107) mmol/L Carbon Dioxide 15 L (21-32) mmol/L POC Total CO2 13 L (24-31) mmol/L Anion Gap 7 (3-11) POC Anion Gap 20.0 (16-25) mmol/L POC BUN 8 (7-18) mg/dl BUN TNP Creatinine TNP POC Creatinine 1.1 (0.6-1.3) mg/dl Est Cr Clr Drug Dosing TNP Est GFR ( Amer) TNP Est GFR (Non-Af Amer) TNP BUN/Creatinine Ratio TNP Glucose 109 H (70-99(Fasting)) mg/dl POC Glucose (other) 99 (70-99) mg/dl Calcium 7.0 L (8.6-10.3) mg/dl POC Ioniz Calcium Liz 1.05 L (1.12-1.32) mmol/l Total Bilirubin 32.1 H (0.2-1.0) mg/dl Direct Bilirubin 19.3 H (0-0.2) mg/dl AST 136 H (13-39) U/L ALT 25 (7-52) U/L Alkaline Phosphatase TNP Troponin I High Sens 3.9 (0-14) pg/ml Total Protein 6.7 (6.0-8.3) gm/dl Albumin 2.5 L (3.4-5.0) gm/dl Globulin 4.2 H (2.5-4.0) gm/dl Albumin/Globulin Ratio 0.6 L (0.9-2) Lipase TNP HCG, Qual Negative (Negative) Ethyl Alcohol mg/dL < 10.0 (<10.0) mg/dl Blood Type O Positive Antibody Screen NEGATIVE Crossmatch See Detail Administered Medications Discontinued Medications Sodium Chloride (Nss) 500 mls @ 999 mls/hr IV .Q31M STA Stop: 01/26/24 15:35 Last Infusion: 01/26/24 16:04 Dose: Infused Documented By: Admin: 01/26/24 15:40 Dose: 999 mls/hr Documented By: MARITZA Pantoprazole Sodium 40 mg/ (Syringe) 10 mls @ 5 mls/min IV NOW ONE Stop: 01/26/24 15:40 Last Admin: 01/26/24 16:01 Dose: 5 mls/min Documented By: MARITZA Famotidine (Pepcid 20mg Iv Push) 20 mg in 5 mls @ 2.5 mls/min IV NOW STA Stop: 01/26/24 15:40 Last Admin: 01/26/24 16:01 Dose: 2.5 mls/min Documented By: MARITZA Octreotide Acetate 100 mcg/ (Syringe) 10 mls @ 3 mls/min IV NOW STA Stop: 01/26/24 15:42 Last Admin: 01/26/24 16:01 Dose: 3 mls/min Documented By: MARITZA Ceftriaxone Sodium (Rocephin) 2,000 mg in 50 mls @ 100 mls/hr IV NOW STA Stop: 01/26/24 16:08 Last Admin: 01/26/24 16:06 Dose: 100 mls/hr Documented By: MARITZA Ondansetron HCl (Ondansetron Inj 2 Mg/Ml 2 Ml Vial) 4 mg IV NOW STA Stop: 01/26/24 16:16 Last Admin: 01/26/24 16:28 Dose: 4 mg Documented By: MARITZA Imaging Data Attestation: I personally reviewed and interpreted this imaging study as follows: My Impression: 1 view chest x-ray and KUB were obtained in the emergency department. My interpretation is no free air or signs of definite bowel obstruction, final report below. Radiologist's Impression: Chest X-Ray 01/26/24 15:05 XR chest 1V portable CLINICAL HISTORY: GI bleed. COMPARISON STUDY: Chest CT June 30, 2022. Chest radiograph September 16, 2023. FINDINGS: Right internal jugular [id number]-Hdhr is in place. Lung volumes are normal. Lungs are clear. There is no pneumothorax or pleural effusion. Cardiac size is normal. Mediastinal contours are normal. There is no evidence for pulmonary edema. IMPRESSION: No acute cardiopulmonary findings. ACT 112: Negative or not required by law. Electronically signed by: Luis Zarate M.D. 01/26/2024 4:01 PM KUB X-Ray 01/26/24 15:05 XR KUB/Abdomen 1 view CLINICAL HISTORY: GIB TECHNIQUE: 1 view of the abdomen was obtained. Comparison: Comparison is made to abdomen radiograph 03/17/2022 FINDINGS: Vascular stent is noted in the right upper quadrant, likely TIPS stent. The osseous structures are grossly unremarkable. The bowel gas pattern is nonobstructive. Small stool burden is seen. IMPRESSION: Nonobstructive bowel gas pattern. ACT 112: Negative or not required by law. Electronically signed by: Carlos Sullivan M.D. 01/26/2024 4:03 PM Discharge Plan Visit Data Chief Complaint: Abnormal Labs/Diagnostic Testing Stated Complaint: BLOOD TRANSFUSION ED Provider: Trevor Sainz Discharge Problem: Acute GI bleeding, Cirrhosis of liver, Anemia, Weakness Patient Disposition: Being Evaluated by Hospitalist Forms Stand Alone Forms: My [facility] Prescriptions Prescriptions: No Action albuterol sulfate [ProAir HFA] 90 mcg/actuation Hfa Aerosol Inhaler 2 inh INHALATION BID PRN (Reason: Shortness Of Breath) Rx Instructions: Is ordered 2 puffs q 4hrs prn for wheezing, patient takes 2 puffs bid. omeprazole 20 mg Capsule,Delayed Release(Dr/Ec) 20 mg PO QAM montelukast 10 mg Tablet 10 mg PO HS dextroamphetamine-amphetamine [Adderall] 5 mg Tablet 5 mg PO AMPM Rx Instructions: am and 4p.m. loratadine 10 mg Tablet 10 mg PO QAM budesonide-formoterol [Symbicort] 160-4.5 mcg/actuation Hfa Aerosol Inhaler 2 puff INHALATION BID Combivent Respimat 20-100 mcg/actuation Mist 1 puff INHALATION BID multivitamin Tablet 1 tab PO QAM fluticasone propionate 50 mcg/actuation [place],Suspension 2 spray INTRANASAL QAM PRN (Reason: allergies) ascorbic acid (vitamin C) [Vitamin C] 500 mg Tablet 500 mg PO QAM cholecalciferol (vitamin D3) [Vitamin D3] 50 mcg (2,000 unit) Capsule 0 mcg PO QAM magnesium oxide 400 mg (241.3 mg magnesium) tablet 400 mg PO BID Rx Instructions: take 2 hours before or after Phospha 250 neutral. potassium chloride 20 mEq tablet extended release 20 meq PO QAM metoclopramide HCl 10 mg Tablet 10 mg PO AMHS PRN (Reason: Nausea) Rx Instructions: administer 30 minutes before meals promethazine 12.5 mg tablet 12.5 mg PO Q6 PRN (Reason: Nausea) folic acid 1 mg tablet 1 mg PO QAM thiamine HCl (vitamin B1) 100 mg Tablet 100 mg PO QAM Qty: 30 0RF diclofenac sodium [Voltaren Arthritis Pain] 1 % gel 4 g topical TID PRN (Reason: Pain) lactulose 10 gram/15 mL solution 10 g PO QID Referrals Referrals: Zaina Bunch MD [Primary Care Provider] - Discharge Problem: Cirrhosis of liver Qualifiers: Hepatic cirrhosis type: unspecified hepatic cirrhosis Ascites presence: u nspecified Qualified Code(s): K74.60 - Unspecified cirrhosis of liver Anemia Qualifiers: Anemia type: unspecified type Qualified Code(s): D64.9 - Anemia, unspecified
[2024-01-26] MEDS: SODIUM CHLORIDE 0.9% 500 ML IV STA (15:40)
[2024-01-26] MEDS ORDERED: SODIUM CHLORIDE 0.9% 250 ML IV PRN (15:41)
[2024-01-26 15:47] LABS: Hematocrit (blood only) 18.7 % (37.0-47.0); Hemoglobin 5.8 g/dl (12.0-16.0); Mean Corpuscular Hemoglobin 35.8 pg (25.0-34.0); Mean Corpuscular Volume 115.4 fL (80.0-100.0); Mean Platelet Volume 11.2 fL (9.4-12.4); Platelet Count 39 K/uL (130-400); RDW Coefficient of Variation 15.1 % (11.5-14.5); RDW Standard Deviation 63.9 fL (36.4-46.3); Red Blood Count 1.62 M/uL (4.20-5.40)
[2024-01-26 15:49] LABS: Partial Thromboplastin Ratio 1.4; Partial Thromboplastin Time 39 Seconds (21-31); Prothrombin Time 20.1 Seconds (9.0-12.0)
[2024-01-26 15:52] LABS: iSTAT Creatinine 1.1 mg/dl (0.6-1.3); iSTAT Hemoglobin 5.4 g/dl (12.0-16.0); iSTAT Ionized Calcium 1.05 mmol/l (1.12-1.32)
[2024-01-26 15:59] LABS: Basophils # (auto) 0.01 K/uL (0.00-0.20); Basophils % (auto) 0.4 %; Eosinophils # (auto) 0.03 K/uL (0.00-0.50); Eosinophils % (auto) 1.3 %; Immature Granulocytes # (auto) 0.01 K/uL (0.01-0.20); Immature Granulocytes % (auto) 0.4 %; Lymphocytes # (auto) 0.23 K/uL (1.20-3.40); Lymphocytes % (auto) 9.6 %; Macrocytosis Present; Monocytes # (auto) 0.31 K/uL (0.11-0.59); Monocytes % (auto) 12.9 %; Neutrophils # (auto) 1.81 K/uL (1.40-6.50); Neutrophils % (auto) 75.4 %
[2024-01-26] MEDS: OCTREOTIDE ACETATE 100 MCG in SYRINGE 9 ML IV STA (16:01)
[2024-01-26] MEDS: FAMOTIDINE 20MG IV PUSH 20 MG/5 ML SYR IV STA (16:01)
[2024-01-26] MEDS: PANTOprazole 40 MG in SYRINGE 0 ML IV ONE (16:01)
--- NOTE | 2024-01-26 16:02 | XRay Report ---
XR chest 1V portable CLINICAL HISTORY: GI bleed. COMPARISON STUDY: Chest CT June 30, 2022. Chest radiograph September 16, 2023. FINDINGS: Right internal jugular Cucorf-m-Yxit is in place. Lung volumes are normal. Lungs are clear. There is no pneumothorax or pleural effusion. Cardiac size is normal. Mediastinal contours are logan l. There is no evidence for pulmonary edema. IMPRESSION: No acute cardiopulmonary findings. ACT 112: Negative or not required by law. Electronically signed by: Luis Zarate M.D. 01/26/2024 4:01 PM
--- NOTE | 2024-01-26 16:04 | XRay Report ---
XR KUB/Abdomen 1 view CLINICAL HISTORY: GIB TECHNIQUE: 1 view of the abdomen was obtained. Comparison: Comparison is made to abdomen radiograph 03/17/2022 FINDINGS: Vascular stent is noted in the right upper quadrant, likely TIPS stent. The osseous structures are gr ossly unremarkable. The bowel gas pattern is nonobstructive. Small stool burden is seen. IMPRESSION: Nonobstructive bowel gas pattern. ACT 112: Negative or not required by law. Electronically signed by: Carlos Sullivan M.D. 01/26/2024 4:03 PM
[2024-01-26] MEDS: cefTRIAXone SODIUM 2,000 MG/50 ML BAG IV STA (16:06)
[2024-01-26 16:07] LABS: Pregnancy Test, Serum Negative (Negative)
[2024-01-26 16:13] LABS: Alanine Aminotransferase 25 U/L (7-52); Albumin Globulin Ratio 0.6 (0.9-2); Albumin Level 2.5 gm/dl (3.4-5.0); Anion Gap 7 (3-11); Aspartate Aminotransferase 136 U/L (13-39); Bilirubin,Total 32.1 mg/dl (0.2-1.0); Carbon Dioxide 15 mmol/L (21-32); Chloride 109 mmol/L (98-107); Globulin 4.2 gm/dl (2.5-4.0); Glucose 109 mg/dl (70-99(Fasting)); Sodium 131 mmol/L (136-145); Total Protein 6.7 gm/dl (6.0-8.3); Troponin I High Sensitivity 3.9 pg/ml (0-14)
[2024-01-26 16:17] LABS: Bilirubin Direct 19.3 mg/dl (0-0.2)
[2024-01-26] MEDS: ONDANSETRON INJ 2 MG/ML 2 ML VIAL IV STA (16:28)
[2024-01-26] MEDS ORDERED: PANTOPRAZOLE BOLUS/DRIP IV STA (16:38)
[2024-01-26] MEDS ORDERED: STAT IV/IM STA (16:38)
[2024-01-26] MEDS: OPTIRAY 320 100ml IV ONE (16:45)
[2024-01-26] MEDS: POTASSIUM CHLORIDE CRTAB 20 MEQ TABCR PO STA (16:54)
[2024-01-26] MEDS ORDERED: PANTOprazole 80 MG in DEXTROSE 5% 100 ML IV ONE (17:00)
--- NOTE | 2024-01-26 17:12 | CT Scan Report ---
CT OF THE ABDOMEN AND PELVIS WITH CONTRAST CLINICAL HISTORY: GI bleed. COMPARISON STUDY: CT of the abdomen and pelvis June 03, 2022. KUB performed earlier today. TECHNIQUE: Following IV administration of 91 mL of Optiray, axial images of the abdomen and pelvis we re obtained from the lung bases to the proximal femurs. Images were reviewed in the axial, sagittal, and coronal planes. IV contrast was administered without complication. Automated exposure control wa s utilized for the study. A dose lowering technique was utilized adhering to the principles of ALARA . CT DOSE: 973.52 mGy.cm FINDINGS: Lung bases are unremarkable. No pneumatosis, free air or portal venous gas is present. Nodu larity of the liver surface has increased since CT of July 03, 2022 and is consistent with cirrhos is. There is a small amount of perihepatic ascites. The TIPS is patent. The liver is markedly heterog eneous in appearance with numerous hypodense foci. Hepatic vessels extend through these foci. There i s no biliary or pancreatic ductal dilatation. Stones within the gallbladder are present. The gallblad edith is not distended. There is trace perisplenic ascites. Abdominal varices are present. These includ e paraesophageal varices. Hyperdense material within the lumen of the body of the stomach is noted. T here is moderate splenomegaly. Adrenal glands, kidneys are unremarkable. Multifocal calcifications wi thin the uncinate process are present. There is no peripancreatic infiltration. There is no evidence for a bowel obstruction. There is sigmoid diverticulosis without evidence for acute diverticulitis. T here is diffuse colonic and rectal wall thickening with mild adjacent stranding. The appendix is norm al. There are no urinary calculi. Main, left and right portal veins are patent. IMPRESSION: 1. Cirrhotic liver. Heterogeneous liver with innumerable hypodense foci. Hepatic vessels extend throu gh these foci. Although nonspecific, the appearance favors multifocal hepatic steatosis. A neoplastic etiology is considered less likely however the findings could be correlated with alpha-fetoprotein l evel and nonemergent liver MRI. 2. Evidence for portal hypertension with abdominal varices, splenomegaly and a small amount of ascite s. Patent TIPS. 3. Intraluminal hyperdense material within the stomach. This favors ingested contents. However, intra luminal contrast in the setting of a GI bleed could appear similar. 4. Diffuse colorectal wall thickening. This may be related to portal hypertension or represent a nons pecific proctocolitis. 5. Cholelithiasis. 6. Multifocal calcifications within the uncinate process of the pancreas. This could be seen in the s etting of chronic pancreatitis. ACT 112: Negative or not required by law. Electronically signed by: Luis Zarate M.D. 01/26/2024 5:10 PM
[2024-01-26] MEDS: PANTOprazole 40 MG in DEXTROSE 5% MINI-B 100 ML IV SCH (17:28)
--- NOTE | 2024-01-26 17:41 | History & Physical Report ---
Date of Service January 26, 2024 Assessment & Plan (1) Decompensated hepatic cirrhosis: (2) Symptomatic anemia: (3) Acute GI bleeding: (4) Pancytopenia: Plan This is a 38-year-old female who has a significant past medical history of alcoholic cirrhosis of liver, portal hypertension with history of TIPS procedure in August 2023 and revision in , esophageal varices, pancytopenia in setting of alcohol use, alcohol use disorder, ADHD, GERSON, major depressive disorder, central venous access in place and right anterior chest wall and asthma who presents to ED at the referral of outpatient provider due to abnormal labs. Symptomatic anemia hx of esophageal varices Thrombocytopenia Probable GI bleeding Admit to PCU Discussed case with on-call [employer] clerk Dr. Taylor It was recommended patient be transferred to tertiary center due to complexity of patient Patient adamantly refused transfer despite risks of worsened anemia, further bleeding requiring emergent endoscopy, lack of interventional radiology services but persisted to refuse transfer She has known esophageal varices and underwent TIPS procedure as well Current hemoglobin 5.8 Transfer 2 units of packed red blood cells Platelet count 39, will hold on transfusion of platelets to prioritize PRBCs Reevaluate in a.m. if need for further transfusion or transfusion of platelets Will repeat hemoglobin at 2200 --CT scan abdomen pelvis:1. Cirrhotic liver. Heterogeneous liver with innumerable hypodense foci. Hepatic vessels extend through these foci. Although nonspecific, the appearance favors multifocal hepatic steatosis. A neoplastic etiology is considered less likely however the findings could be correlated with alpha-fetoprotein level and nonemergent liver MRI. 2. Evidence for portal hypertension with abdominal varices, splenomegaly and a small amount of ascites. Patent TIPS. 3. Intraluminal hyperdense material within the stomach. This favors ingested contents. However, intraluminal contrast in the setting of a GI bleed could appear similar. cycle H/H, PT/INR Decompensated alcoholic liver cirrhosis Acute on chronic liver failure Portal HTN S/P TIPS 09/12 with revision 10/2023 Madrey score 74, MELD 28 Discussed with gastroenterology Started on IV methylprednisolone 40 mg daily Reduce lactulose to 3 times daily as she is moving her bowels 6 times daily No signs of hepatic encephalopathy CT show patency of TIPS Pt needs Strong counseling on abstinence of alcohol, Continue thiamine and folic acid Hypokalemia replace, repeat bmp in a.m. Tobacco abuse Nicotine patch Depression with anxiety ADHD Continue meds, mood stable Asthma no acute exac continue inhalers DVT ppx: none for now in setting of Thrombocytopenia and bruising to lower extremity Dispo: Admit to PCU, GI is aware of patient, she is adamantly refusing transfer despite being educated on risk including FULL CODE PCP: Julio C Pt was seen and examined in collaboration with Dr. Winn, please see addendum A total of 95 minutes was spent coordinating, documenting, and providing care for this patient excluding time spent in the performance of separately billed services. This included personally viewing all current laboratories and imaging studies, medication reconciliation, outpatient chart review, and discussion with specialists. History of Present Illness Chief Complaint: Referred by outpatient provider due to low hemoglobin. Primary Care Provider: Zaina Bunch MD This is a 38-year-old female who has a significant past medical history of alcoholic cirrhosis of liver, portal hypertension with history of TIPS procedure in August 2023 and revision in , esophageal varices, pancytopenia in setting of alcohol use, alcohol use disorder, ADHD, GERSON, major depressive disorder, central venous access in place and right anterior chest wall and asthma who presents to ED at the referral of outpatient provider due to abnormal labs. She reports that she had a relapse in alcohol approximately 2 weeks ago. She drank hard liquor for 2 days straight. Ever since this episode she has been on a gradual decline. She states that she had increased fatigue, easy bruising, bleeding gums and increased jaundice and icterus. She has not had further alcohol since that event. She also reports having black tarry stool over the last 2 weeks. She feels over the last 3 days it has been getting less. She also reports having blood blisters that ruptured in her mouth but have since healed. She still has a small blood blister on her lip. She denies any nausea, vomiting or hematemesis. She denies any fever, chills, sweats, lightheadedness, dizziness, chest pain, shortness breath, cough, hemoptysis. She denies any dysuria or increased urgency or frequency with urination. She is having approximately 6 bowel movements daily. She has been compliant with her lactulose. In ED patient was found to have severe anemia with a hemoglobin of 5.8 and 18.7 as well as a significant thrombocytopenia at 39. Her INR was elevated at 2.0. Her CMP was abnormal with a total bilirubin of 32.1, sodium of 131, potassium 3.0 and AST of 136. Her at the alcohol level is normal. Case was discussed with [employer] clerk and recommendation was made for patient to be transferred to [place] due to her medical complexly. She is refusing transfer to [place] and is requesting to stay here for transfusion purposes. Allergies Allergy/AdvReac Type Severity Reaction Status Date / Time banana Allergy Intermediate RASH, Verified 09/16/23 01:13 THROAT SLIGHTLY SWOLLEN Penicillins Allergy Unknown HAPPENED Verified 09/16/23 01:13 A CHILD Home Medications Medication Instructions Recorded Confirmed Type albuterol sulfate 90 mcg/actuation 2 inh inhalation BID PRN Shortness 06/24/20 01/26/24 History aerosol inhaler (ProAir HFA) Of Breath budesonide-formoterol HFA 160 2 puff inhalation BID 06/20/21 01/26/24 History mcg-4.5 mcg/actuation aerosol inhaler (Symbicort) dextroamphetamine-amphetamine 5 mg 5 mg PO AMPM 06/20/21 01/26/24 History tablet (Adderall) ipratropium 20 mcg-albuterol 100 1 puff inhalation BID 06/20/21 01/26/24 History mcg/actuation mist for inhalation (Combivent Respimat) loratadine 10 mg tablet 10 mg PO QAM 06/20/21 01/26/24 History montelukast 10 mg tablet 10 mg PO HS 06/20/21 01/26/24 History omeprazole 20 mg capsule,delayed 20 mg PO QAM 06/20/21 01/26/24 History release fluticasone propionate 50 2 spray intranasal QAM PRN 10/03/21 01/26/24 History mcg/actuation nasal allergies spray,suspension multivitamin 1 tab PO QAM 10/03/21 01/26/24 History ascorbic acid (vitamin C) 500 mg 500 mg PO QAM 01/31/22 01/26/24 History tablet (Vitamin C) cholecalciferol (vitamin D3) 50 50 mcg PO QAM 01/31/22 01/26/24 History mcg (2,000 unit) capsule (Vitamin D3) thiamine HCl (vitamin B1) 100 mg 100 mg PO QAM #30 tabs 03/23/22 01/26/24 Rx tablet magnesium oxide 400 mg (241.3 mg 400 mg PO BID 03/25/22 01/26/24 History magnesium) tablet potassium chloride 20 mEq 20 meq PO QAM 03/25/22 01/26/24 History tablet,extended release diclofenac sodium 1 % topical gel 4 g topical TID PRN Pain 10/14/22 01/26/24 History (Voltaren Arthritis Pain) metoclopramide HCl 10 mg tablet 10 mg PO AMHS PRN Nausea 01/07/23 01/26/24 History folic acid 1 mg tablet 1 mg PO QAM 09/16/23 01/26/24 History promethazine 12.5 mg tablet 12.5 mg PO Q6 PRN Nausea 09/16/23 01/26/24 History lactulose 10 gram/15 mL oral 10 g PO QID 01/26/24 01/26/24 History solution Past Med/Surg History Medical History Decompensated hepatic cirrhosis History of COVID-2019, tested thru hospital at [place], hospitalized during covid; fatigue, body aches, decreased appetite>resolved. Hemoptysis "sometimes still has this" Acute chest wall pain hx-"from a recent fall where she broke some ribs" Fall 06/2022, fx ribs VAN (acute kidney injury) hx Portal hypertension Alcoholic cirrhosis with abn coags Anemia pre-op H&H 04/15/22: 05/15 History of pancreatitis alcoholic 05/2021 per records GERD (gastroesophageal reflux disease) Pneumonia February 2022 treated at [facility]. denies sob currently Thrombocytopenia Jaundice hx-"not very much now" Acute on chronic alcoholic liver disease "currently trying to get on the transplant list" Hypokalemia Acute hyponatremia Hypomagnesemia Hyperbilirubinemia Rectal bleeding "a little when she's constipated" Alcohol abuse with withdrawal Fatty liver Depression Alcoholic hepatitis Anxiety ADD (attention deficit disorder) Asthma well controlled with inhalers Alcohol abuse Surgical History Hx of colonoscopy History of vascular access device 04/2022, [facility] H/O wisdom tooth extraction History of esophagogastroduodenoscopy (EGD) History of abdominal paracentesis Family History Grandmother Breast cancer Grandfather Heart disease Other No family history of adverse response to anesthesia Social History Smoking Status: Current every day smoker Tobacco Type: Cigarettes Cigarettes Per Day: 1-2; Second Hand Exposure: No; Do You Dip or Chew Tobacco: No; Hx Alcohol Use: Yes Alcohol type: hard liquor Hx Substance Use: No Preferred Language: Gabonese 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 Ability: Effective Mouthpiece Maker Required: No Beliefs That Will Affect Care: None marital status: Single Current Living Situation: Family Current Living Situation Comment: Apartment current occupational status: employed How many Children do You have: 0 Feels Safe at Home: Yes Assistive Devices: None Review of Systems Review of Systems: All systems reviewed & are unremarkable except as noted in HPI & below Physical Exam Physical Exam: Please refer to Dr. Winn addendum for physical exam finding Results & Data Results & Data Vital Signs (Past 12 Hours) Vital Signs Temp Pulse Pulse Resp BP BP Pulse Ox 01/26/24 17:15 83 01/26/24 17:14 83 14 103/59 L 100 01/26/24 14:52 36.9 C 96 H 14 103/64 98 O2 Del Method 01/26/24 17:15 01/26/24 17:14 Room Air 01/26/24 14:52 Room Air Diagnostic Findings Chest X-Ray 01/26/24 15:05 XR chest 1V portable CLINICAL HISTORY: GI bleed. COMPARISON STUDY: Chest CT June 30, 2022. Chest radiograph September 16, 2023. FINDINGS: Right internal jugular [id number] is in place. Lung volumes are normal. Lungs are clear. There is no pneumothorax or pleural effusion. Cardiac size is normal. Mediastinal contours are normal. There is no evidence for pulmonary edema. IMPRESSION: No acute cardiopulmonary findings. ACT 112: Negative or not required by law. Electronically signed by: Luis Zarate M.D. 01/26/2024 4:01 PM KUB X-Ray 01/26/24 15:05 XR KUB/Abdomen 1 view CLINICAL HISTORY: GIB TECHNIQUE: 1 view of the abdomen was obtained. Comparison: Comparison is made to abdomen radiograph 03/17/2022 FINDINGS: Vascular stent is noted in the right upper quadrant, likely TIPS stent. The osseous structures are grossly unremarkable. The bowel gas pattern is nonobstructive. Small stool burden is seen. IMPRESSION: Nonobstructive bowel gas pattern. ACT 112: Negative or not required by law. Electronically signed by: Carlos Sullivan M.D. 01/26/2024 4:03 PM Abdomen/Pelvis CT 01/26/24 16:40 CT OF THE ABDOMEN AND PELVIS WITH CONTRAST CLINICAL HISTORY: GI bleed. COMPARISON STUDY: CT of the abdomen and pelvis June 03, 2022. KUB performed earlier today. TECHNIQUE: Following IV administration of 91 mL of Optiray, axial images of the abdomen and pelvis were obtained from the lung bases to the proximal femurs. Images were reviewed in the axial, sagittal, and coronal planes. IV contrast was administered without complication. Automated exposure control was utilized for the study. A dose lowering technique was utilized adhering to the principles of ALARA. CT DOSE: 973.52 mGy.cm FINDINGS: Lung bases are unremarkable. No pneumatosis, free air or portal venous gas is present. Nodularity of the liver surface has increased since CT of July 03, 2022 and is consistent with cirrhosis. There is a small amount of perihepatic ascites. The TIPS is patent. The liver is markedly heterogeneous in appearance with numerous hypodense foci. Hepatic vessels extend through these foci. There is no biliary or pancreatic ductal dilatation. Stones within the gallbladder are present. The gallbladder is not distended. There is trace perisplenic ascites. Abdominal varices are present. These include paraesophageal varices. Hyperdense material within the lumen of the body of the stomach is noted. There is moderate splenomegaly. Adrenal glands, kidneys are unremarkable. Multifocal calcifications within the uncinate process are present. There is no peripancreatic infiltration. There is no evidence for a bowel obstruction. There is sigmoid diverticulosis without evidence for acute diverticulitis. There is diffuse colonic and rectal wall thickening with mild adjacent stranding. The appendix is normal. There are no urinary calculi. Main, left and right portal veins are patent. IMPRESSION: 1. Cirrhotic liver. Heterogeneous liver with innumerable hypodense foci. Hepatic vessels extend through these foci. Although nonspecific, the appearance favors multifocal hepatic steatosis. A neoplastic etiology is considered less likely however the findings could be correlated with alpha-fetoprotein level and nonemergent liver MRI. 2. Evidence for portal hypertension with abdominal varices, splenomegaly and a s mall amount of ascites. Patent TIPS. 3. Intraluminal hyperdense material within the stomach. This favors ingested contents. However, intraluminal contrast in the setting of a GI bleed could appear similar. 4. Diffuse colorectal wall thickening. This may be related to portal hypertension or represent a nonspecific proctocolitis. 5. Cholelithiasis. 6. Multifocal calcifications within the uncinate process of the pancreas. This could be seen in the setting of chronic pancreatitis. ACT 112: Negative or not required by law. Electronically signed by: Luis Zarate M.D. 01/26/2024 5:10 PM Medications Administered Medication List Pantoprazole Sodium 40 mg/ (Dextrose) 100 mls @ 20 mls/hr IV Q5H JUAN Stop: 02/25/24 16:59 Last Admin: 01/26/24 17:28 Dose: 8 mg/hr, 20 mls/hr Documented By: MR Discontinued Medications Sodium Chloride (Nss) 500 mls @ 999 mls/hr IV .Q31M STA Stop: 01/26/24 15:35 Last Infusion: 01/26/24 16:04 Dose: Infused Documented By: Admin: 01/26/24 15:40 Dose: 999 mls/hr Documented By: MARITZA Pantoprazole Sodium 40 mg/ (Syringe) 10 mls @ 5 mls/min IV NOW ONE Stop: 01/26/24 15:40 Last Admin: 01/26/24 16:01 Dose: 5 mls/min Documented By: MARITZA Famotidine (Pepcid 20mg Iv Push) 20 mg in 5 mls @ 2.5 mls/min IV NOW STA Stop: 01/26/24 15:40 Last Admin: 01/26/24 16:01 Dose: 2.5 mls/min Documented By: MARITZA Octreotide Acetate 100 mcg/ (Syringe) 10 mls @ 3 mls/min IV NOW STA Stop: 01/26/24 15:42 Last Admin: 01/26/24 16:01 Dose: 3 mls/min Documented By: MARITZA Ceftriaxone Sodium (Rocephin) 2,000 mg in 50 mls @ 100 mls/hr IV NOW STA Stop: 01/26/24 16:08 Last Infusion: 01/26/24 16:28 Dose: Infused Documented By: Admin: 01/26/24 16:06 Dose: 100 mls/hr Documented By: MARITZA Ioversol (Optiray 320 100ml) 91 ml IV ONCE ONE Stop: 01/26/24 16:46 Last Admin: 01/26/24 16:45 Dose: 91 ml Documented By: CHINTAN Ondansetron HCl (Ondansetron Inj 2 Mg/Ml 2 Ml Vial) 4 mg IV NOW STA Stop: 01/26/24 16:16 Last Admin: 01/26/24 16:28 Dose: 4 mg Documented By: MARITZA Potassium Chloride (Potassium Chloride Crtab 20 Meq Tabcr) 40 meq PO NOW STA Stop: 01/26/24 16:36 Last Admin: 01/26/24 16:54 Dose: 40 meq Documented By: MARITZA COVID-19 Results Results COVID-19 Adm Lab Results: RBC 1.62 M/uL (4.20-5.40) L 01/26/24 WBC 2.40 K/ul (4.8-10.8) L 01/26/24 Hgb 5.8 g/dl (12.0-16.0) L* 01/26/24 Hct 18.7 % (37.0-47.0) L* 01/26/24 Plt Count 39 K/uL (130-400) L 01/26/24 Neutrophils (%) (Auto) 75.4 % 01/26/24 Lymphocytes (%) (Auto) 9.6 % 01/26/24 Monocytes # (Auto) 0.31 K/uL (0.11-0.59) 01/26/24 Eosinophils # (Auto) 0.03 K/uL (0.00-0.50) 01/26/24 Immature Granulocyte % (Auto) 0.4 % 01/26/24 Neutrophils # (Auto) 1.81 K/uL (1.40-6.50) 01/26/24 Lymphocytes # (Auto) 0.23 K/uL (1.20-3.40) L 01/26/24 Monocytes # (Auto) 0.31 K/uL (0.11-0.59) 01/26/24 Eosinophils # (Auto) 0.03 K/uL (0.00-0.50) 01/26/24 Basophils # (Auto) 0.01 K/uL (0.00-0.20) 01/26/24 Immature Granulocyte # (Auto) 0.01 K/uL (0.01-0.20) 4 Macrocytosis Present 01/26/24 Na 131 mmol/L (136-145) L 01/26/24 K 3.0 mmol/L (3.5-5.1) L 01/26/24 Cl 109 mmol/L (98-107) H 01/26/24 CO2 15 mmol/L (21-32) L 01/26/24 Anion Gap 7 (3-11) 01/26/24 BUN TNP 01/26/24 Creatinine TNP 01/26/24 BUN/Creatinine Ratio TNP 01/26/24 Glucose Level 109 mg/dl (70-99(Fasting)) H 01/26/24 Ca 7.0 mg/dl (8.6-10.3) L 01/26/24 Total Bilirubin 32.1 mg/dl (0.2-1.0) H 01/26/24 Direct Bilirubin 19.3 mg/dl (0-0.2) H 01/26/24 AST/SGOT 136 U/L (13-39) H 01/26/24 ALT/SGPT 25 U/L (7-52) 01/26/24 Alkaline Phosphatase TNP 01/26/24 Total Protein 6.7 gm/dl (6.0-8.3) 01/26/24 Albumin 2.5 gm/dl (3.4-5.0) L 01/26/24 Globulin 4.2 gm/dl (2.5-4.0) H 01/26/24 Albumin/Globulin Ratio 0.6 (0.9-2) L 01/26/24 PTT 39 Seconds (21-31) H 01/26/24 INR 2.0 (0.9-1.1) H 01/26/24 Chest X-Ray 01/26/24 Code Status & VTE Plan Code Status FULL CODE VTE Prophylaxis Plan VTE Prophylaxis will be ordered: No Reason for no VTE drug order: Contraindicated Supervising Physician Co-Signing Physician Notes I have seen and discussed the case with the collaborating advanced practitioner. I agree with the above H&P. I have reviewed and confirmed the patients medical history, the findings on physical examination, and the patients diagnosis and treatment plan with Alize MEYERS and agree with the information documented. In short, Ms. Burr is a 38 year old woman with etoh cirrhosis s/p TIPS 08/2024 who presents at behest of her PCP due to acute on chronic anemia. Patient reports 2 weeks earlier she was drinking for 48 hours heavily--then noticed that her jaundice worsened and she experienced some vague abdominal discomfort. She experienced mouth lesions and gingival bleeding, which have since improved. She denies vomiting or hematemesis, but she reports darks stool. She denies any emesis or nausea. When discussing transfer given medical complexity and acuity, patient adamantly declined stating she "would like to just get [her] transfusion and see what happens." Patient verbalized understanding of risks. Imagin. Cirrhotic liver. Heterogeneous liver with innumerable hypodense foci. Hepatic vessels extend through these foci. Although nonspecific, the appearance favors multifocal hepatic steatosis. A neoplastic etiology is considered less likely however the findings could be correlated with alpha-fetoprotein level and nonemergent liver MRI. 2. Evidence for portal hypertension with abdominal varices, splenomegaly and a small amount of ascites. Patent TIPS. 3. Intraluminal hyperdense material within the stomach. This favors ingested contents. However, intraluminal contrast in the setting of a GI bleed could appear similar. 4. Diffuse colorectal wall thickening. This may be related to portal hypertensio n or represent a nonspecific proctocolitis. 5. Cholelithiasis. 6. Multifocal calcifications within the uncinate process of the pancreas. This could be seen in the setting of chronic pancreatitis. GENERAL APPEARANCE: AxOx4, diffuse jaundice, no acute distress. HEENT: NC, AT. MMM. EOMI, scleral icterus, oropharynx clear. NECK: Supple without lymphadenopathy. No stiffness or restricted ROM. HEART: tachycardic LUNGS: CTAB, moving air well. No crackles or wheezes are heard. ABDOMEN: Soft, nontender, nondistended with good bowel sounds heard. EXTREMITIES: Without cyanosis, clubbing or edema. NEUROLOGICAL: Grossly nonfocal. Alert and oriented, moving all 4 extremities. CN not formally tested but appear grossly intact. Observed to ambulate with normal gait. Skin: jaundice of head torso all extremities, palms/soles, ecchymosis of BLE, #Acute on chronic anemia #Thrombocytopenia, iso cirrhosis -Hgb 5.[address] with ?GIB--discussed with GI, CTM at this time 2 U PRBC NPO Octreotide/PPI drip as below 20 minutes was spent with patient discussing the need for transfer to tertiary center given medical complexity, patient declined multiple times #Hypokalemia IV K #Acute Alcoholic hepatitis #Cirrhosis 2/2 EtOH decompensated - MELD-Na: 28 on admission - Last EGD 08/2023 - PSE: h/o HE, no evidence of HE on exam, c/w lactulose (titrated to 3-4BM / day) - Ascites: small amount of ascites, not on diuretics - EV: c/w octreotide gtt, PPI gtt, CTX x5 d -TIPS patent on imaging - HRS: Cr at baseline Maddrey: 74 -Start IV methylprednisolone 40mg daily, transition to prednisolone 40mg for 28 days when cleared for PO - Daily CMP + INR, coags to calculate MELD - GI consult Rest of plan as above I spent a total of 35 minutes coordinating, documenting, and providing care for this patient excluding time spent in the performance of separately billed services. All of the aforementioned completed outside of collaborating with the assigned advanced practitioner for a full treatment plan. I have reviewed the advanced practitioner's documentation, and I agree with, and take responsibility for the plan of care
[2024-01-26 17:54] LABS: Appearance Urine Clear (Clear); Bacteria Urine Automated 4+ (None Seen); Bilirubin Urine 3+ (Negative); Blood Urine Negative (Negative); Cast Urine Automated 0-2 /lpf (0-2); Color Urine Dark Yellow; Epithelial Cell Urine Auto 0-2 /hpf (0-2); Glucose Urine UA Negative (Negative); Ketones Urine Negative (Negative); Leukocyte Esterase Urine 2+ (Negative); Nitrite Urine Positive (Negative); Protein Urine Trace (Negative); Specific Gravity Urine 1.017 (1.000-1.030); Urobilinogen Urine Negative (Negative); pH Urine 6.5 (4.5-7.5)
[2024-01-26] MEDS: OCTREOTIDE ACETATE 500 MCG in 0.9 % SODIUM CHLORIDE 100 ML IV SCH (18:21)
[2024-01-26] MEDS: POTASSIUM CHLORIDE / WTR 10 MEQ/100 ML PLCT IV SCH (20:45)
[2024-01-26] MEDS ORDERED: ALBUTEROL HFA 8 GM INHALER INH PRN (21:33)
[2024-01-26] MEDS ORDERED: methylPREDNISolone 125 MG/2 ML VIAL IV SCH (21:33)
[2024-01-26] MEDS ORDERED: IPRATROPIUM BROMIDE/ALBUTEROL respimat INH INH SCH (21:33)
[2024-01-26] MEDS ORDERED: ALUMINUM/MAGNESIUM SUSP 30 ML UDC PO PRN (21:33)
[2024-01-26] MEDS: MONTELUKAST SODIUM 10 MG TABLET PO SCH (23:10)
[2024-01-26] MEDS: LACTULOSE SYRUP 20 GM/30 ML UDC PO SCH (23:10)
[2024-01-26] MEDS: MAGNESIUM OXIDE 400 MG TAB PO SCH (23:10)
[2024-01-26] MEDS: DEXTROAMPHETAMINE/AMPHETAMIME IR 5 MG TAB PO SCH (23:10)
[2024-01-26] MEDS: POTASSIUM CHLORIDE CRTAB 20 MEQ TABCR PO ONE (23:11)
[2024-01-26 23:26] LABS: INR 1.9 (0.9-1.1); Prothrombin Time 19.7 Seconds (9.0-12.0)
[2024-01-26] MEDS: NICOTINE 7 MG/24 HR TDSY TD SCH (23:47)
[2024-01-26] MEDS: methylPREDNISolone 40 MG in SYRINGE 0 ML IV SCH (23:47)
[2024-01-26 23:52] LABS: Hematocrit (blood only) 23.9 % (37.0-47.0); Hemoglobin 7.5 g/dl (12.0-16.0)
[2024-01-27] MEDS: MELATONIN 3 MG TAB PO PRN (02:10)
[2024-01-27 02:47] LABS: INR 2.1 (0.9-1.1); Prothrombin Time 20.9 Seconds (9.0-12.0)
--- NOTE | 2024-01-27 04:15 | Electrocardiogram Report ---
Test Reason : Blood Pressure : / mmHG Vent. Rate : 087 BPM Atrial Rate : 087 BPM P-R Int : 204 ms QRS Dur : 080 ms QT Int : 390 ms P-R-T Axes : 009 -20 020 degrees QTc Int : 469 ms Normal sinus rhythm Inferior infarct , age undetermined Cannot rule out Anteroseptal infarct (cited on or before 14-JUL-2022) Abnormal ECG When compared with ECG of 26-JUL-2023 19:13, No significant change was found Confirmed by Elliot Knight ([id number]) on 01/27/2024 4:14:45 AM Referred By: Confirmed By:Elliot Knight
[2024-01-27 06:59] LABS: Prothrombin Time 20.8 Seconds (9.0-12.0)
[2024-01-27] MEDS: Albuterol HFA 8 GM Inhaler (Combivent Respimat P&T Subs) INH SCH (07:13)
[2024-01-27 07:16] LABS: Hematocrit (blood only) 24.9 % (37.0-47.0); Hemoglobin 7.8 g/dl (12.0-16.0); Mean Corpuscular Hemoglobin 32.8 pg (25.0-34.0); Mean Corpuscular Hgb Conc 31.3 g/dL (32.0-36.0); Mean Corpuscular Volume 104.6 fL (80.0-100.0); Mean Platelet Volume 11.5 fL (9.4-12.4); Platelet Count 47 K/uL (130-400); Red Blood Count 2.38 M/uL (4.20-5.40); White Blood Count 2.19 K/ul (4.8-10.8)
[2024-01-27 07:19] LABS: Anisocytosis Present; Basophils # (auto) 0.01 K/uL (0.00-0.20); Basophils % (auto) 0.5 %; Eosinophils # (auto) 0.02 K/uL (0.00-0.50); Eosinophils % (auto) 0.9 %; Immature Granulocytes # (auto) 0.04 K/uL (0.01-0.20); Immature Granulocytes % (auto) 1.8 %; Lymphocytes # (auto) 0.24 K/uL (1.20-3.40); Monocytes # (auto) 0.14 K/uL (0.11-0.59); Monocytes % (auto) 6.4 %; Neutrophils # (auto) 1.74 K/uL (1.40-6.50); Neutrophils % (auto) 79.4 %; Polychromasia 2+
[2024-01-27 07:32] LABS: Alanine Aminotransferase 23 U/L (7-52); Albumin Globulin Ratio 0.7 (0.9-2); Albumin Level 2.3 gm/dl (3.4-5.0); Anion Gap 5 (3-11); Aspartate Aminotransferase 106 U/L (13-39); Bilirubin,Total 28.4 mg/dl (0.2-1.0); Carbon Dioxide 13 mmol/L (21-32); Chloride 114 mmol/L (98-107); Globulin 3.5 gm/dl (2.5-4.0); Glucose 133 mg/dl (70-99(Fasting)); Sodium 132 mmol/L (136-145); Total Protein 5.8 gm/dl (6.0-8.3)
[2024-01-27] MEDS: Ipratropium HFA Inhaler (Combivent Respimat P&T Subs) INH SCH (09:04)
[2024-01-27] MEDS: LORATADINE 10 MG TAB PO SCH (09:20)
[2024-01-27] MEDS: THIAMINE HCL 100 MG TAB PO SCH (09:21)
[2024-01-27] MEDS: FOLIC ACID 1 MG TAB PO SCH (09:21)
[2024-01-27] MEDS: ASCORBIC ACID 500 MG TAB PO SCH (09:21)
[2024-01-27] MEDS: MULTIVITAMIN TAB PO SCH (09:21)
[2024-01-27] MEDS: CHOLECALCIFEROL 25 MCG (1000 UNITS) TAB PO SCH (09:22)
[2024-01-27] MEDS: ONDANSETRON INJ 2 MG/ML 2 ML VIAL IV PRN (09:34)
[2024-01-27] MEDS: FLUTICASONE/VILANTEROL 200/25MCG 14 PUFFS/INHALER INH SCH (09:35)
--- NOTE | 2024-01-27 09:57 | Anesthesiology Consultation ---
Date of Service January 27, 2024 Assessment & Plan Chart Review Chart Review: Acceptable Risk for Surgery, Patient NOT seen in Pre Admission Testing and entry level sales consultant initiated Consults Requested none Proposed Anesthesia Anesthesia Type: MAC History Surgery Operation Date: 01/27/24 16:30 Proposed Procedures p Esophagogastroduodenoscopy Dr Taylor - Vlad Ortega Case, DO Height/Weight Height: 5 ft 1 in Weight: 61.2 kg Allergies Allergy/AdvReac Type Severity Reaction Status Date / Time banana Allergy Intermediate RASH, Verified 09/16/23 01:13 THROAT SLIGHTLY SWOLLEN Penicillins Allergy Unknown HAPPENED Verified 09/16/23 01:13 A CHILD Medications Home Medications Medication Instructions Recorded Confirmed Last Taken albuterol sulfate 90 mcg/actuation 2 inh inhalation BID PRN Shortness 06/24/20 01/26/24 01/06/23 21:00 aerosol inhaler (ProAir HFA) Of Breath budesonide-formoterol HFA 160 2 puff inhalation BID 06/20/21 01/26/24 01/06/23 21:00 mcg-4.5 mcg/actuation aerosol inhaler (Symbicort) dextroamphetamine-amphetamine 5 mg 5 mg PO AMPM 06/20/21 01/26/24 01/06/23 15:00 tablet (Adderall) ipratropium 20 mcg-albuterol 100 1 puff inhalation BID 06/20/21 01/26/24 01/06/23 08:00 mcg/actuation mist for inhalation (Combivent Respimat) loratadine 10 mg tablet 10 mg PO QAM 06/20/21 01/26/24 01/06/23 08:00 montelukast 10 mg tablet 10 mg PO HS 06/20/21 01/26/24 01/06/23 21:00 omeprazole 20 mg capsule,delayed 20 mg PO QAM 06/20/21 01/26/24 01/07/23 06:00 release fluticasone propionate 50 2 spray intranasal QAM PRN 10/03/21 01/26/24 01/06/23 08:00 mcg/actuation nasal allergies spray,suspension multivitamin 1 tab PO QAM 10/03/21 01/26/24 01/06/23 08:00 ascorbic acid (vitamin C) 500 mg 500 mg PO QAM 01/31/22 01/26/24 01/06/23 08:00 tablet (Vitamin C) cholecalciferol (vitamin D3) 50 50 mcg PO QAM 01/31/22 01/26/24 01/06/23 08:00 mcg (2,000 unit) capsule (Vitamin D3) thiamine HCl (vitamin B1) 100 mg 100 mg PO QAM #30 tabs 03/23/22 01/26/24 01/06/23 08:00 tablet magnesium oxide 400 mg (241.3 mg 400 mg PO BID 03/25/22 01/26/24 01/06/23 08:00 magnesium) tablet potassium chloride 20 mEq 20 meq PO QAM 03/25/22 01/26/24 01/06/23 08:00 tablet,extended release diclofenac sodium 1 % topical gel 4 g topical TID PRN Pain 10/14/22 01/26/24 Unknown (Voltaren Arthritis Pain) metoclopramide HCl 10 mg tablet 10 mg PO AMHS PRN Nausea 01/07/23 01/26/24 01/06/23 21:00 folic acid 1 mg tablet 1 mg PO QAM 09/16/23 01/26/24 Unknown promethazine 12.5 mg tablet 12.5 mg PO Q6 PRN Nausea 09/16/23 01/26/24 Unknown lactulose 10 gram/15 mL oral 10 g PO QID 01/26/24 01/26/24 Unknown solution Active Medications Generic Name Dose Route Start Last Admin Trade Name Freq PRN Reason Stop Dose Admin Albuterol 1 puffs 01/27/24 09:00 01/27/24 07:13 Albuterol Hfa 8 Gm Inhaler (Combivent Respimat P&T Subs) INH 02/26/24 08:59 Not Given BID [facility] Protocol Amphetamine/Dextroamphetamine 5 mg 01/26/24 21:45 01/27/24 09:34 Dextroamphetamine/Amphetamime Ir 5 Mg Tab PO 02/09/24 21:44 5 mg BID JUAN Administration Ascorbic Acid 500 mg 01/27/24 09:00 01/27/24 09:21 Ascorbic Acid 500 Mg Tab PO 02/26/24 08:59 500 mg QAM JUAN Administration Fluticasone/Vilanterol 1 puffs 01/27/24 09:00 01/27/24 09:35 Fluticasone/Vilanterol 200/25mcg 14 Puffs/Inhaler INH 02/26/24 08:59 1 puffs DAILY JUAN Administration Protocol Folic Acid 1 mg 01/27/24 09:00 01/27/24 09:21 Folic Acid 1 Mg Tab PO 02/26/24 08:59 1 mg QAM JUAN Administration Octreotide Acetate 500 mcg/ 100.5 mls @ 10.05 mls/hr 01/26/24 17:00 01/27/24 03:09 Sodium Chloride IV 02/25/24 16:59 50 mcg/hr .Q10H JUAN 10.1 mls/hr Administration 50 MCG/HR Pantoprazole Sodium 40 mg/ 100 mls @ 20 mls/hr 01/26/24 17:00 01/27/24 09:17 Dextrose IV 02/25/24 16:59 8 mg/hr Q5H JUAN 20 mls/hr Administration 8 MG/HR Methylprednisolone 40 mg/ 0.64 mls @ 1.5 mls/min 01/26/24 21:45 01/27/24 09:22 Syringe IV 02/25/24 21:44 1.5 mls/min DAILY JUAN Administration Lactulose 10 gm 01/26/24 22:00 01/27/24 06:26 Lactulose Syrup 20 Gm/30 Ml Udc PO 02/25/24 21:59 10 gm Q8H JUAN Administration Loratadine 10 mg 01/27/24 09:00 01/27/24 09:20 Loratadine 10 Mg Tab PO 02/26/24 08:59 10 mg QAM JUAN Administration Magnesium Oxide 400 mg 01/26/24 21:33 01/27/24 09:20 Magnesium Oxide 400 Mg Tab PO 02/25/24 21:32 400 mg BID JUAN Administration Melatonin 3 mg 01/27/24 01:52 01/27/24 02:10 Melatonin 3 Mg Tab PO 02/26/24 01:51 3 mg HS PRN Administration Sleep Miscellaneous 1 each 01/27/24 08:59 01/27/24 09:20 Remove Nicoderm Patch N/A 02/26/24 08:58 1 each DAILY@2058 JUAN Administration Montelukast Sodium 10 mg 01/26/24 21:33 01/26/24 23:10 Montelukast Sodium 10 Mg Tablet PO 02/25/24 21:32 10 mg HS JUAN Administration Multivitamins 1 tab 01/27/24 09:00 01/27/24 09:21 Multivitamin Tab PO 02/26/24 08:59 1 tab QAM JUAN Administration Nicotine 1 patch 01/26/24 21:33 01/26/24 23:47 Nicotine 7 Mg/24 Hr Tdsy TD 02/25/24 21:32 1 patch HS JUAN Administration Ondansetron HCl 4 mg 01/26/24 21:33 01/27/24 09:34 Ondansetron Inj 2 Mg/Ml 2 Ml Vial IV 02/25/24 21:32 4 mg Q6H PRN Administration Nausea Thiamine HCl 100 mg 01/27/24 09:00 01/27/24 09:21 Thiamine Hcl 100 Mg Tab PO 02/26/24 08:59 100 mg QAM JUAN Administration Vitamin D 50 mcg 01/27/24 09:00 01/27/24 09:22 Cholecalciferol 25 Mcg (1000 Units) Tab PO 02/26/24 08:59 50 mcg QAM JUAN Administration Past Medical History Medical History Decompensated hepatic cirrhosis History of COVID-19 early 2019, tested thru hospital at [place], hospitalized during covid; fatigue, body aches, decreased appetite>resolved. Hemoptysis "sometimes still has this" Acute chest wall pain hx-"from a recent fall where she broke some ribs" Fall 06/2022, fx ribs VAN (acute kidney injury) hx Portal hypertension Alcoholic cirrhosis with abn coags Anemia pre-op H&H 04/15/22: 05/15 History of pancreatitis alcoholic 05/2021 per records GERD (gastroesophageal reflux disease) Pneumonia February 2022 treated at [facility]. denies sob currently Thrombocytopenia Jaundice hx-"not very much now" Acute on chronic alcoholic liver disease "currently trying to get on the transplant list" Hypokalemia Acute hyponatremia Hypomagnesemia Hyperbilirubinemia Rectal bleeding "a little when she's constipated" Alcohol abuse with withdrawal Fatty liver Depression Alcoholic hepatitis Anxiety ADD (attention deficit disorder) Asthma well controlled with inhalers Alcohol abuse Past Family History Family History Grandmother Breast cancer Grandfather Heart disease Other No family history of adverse response to anesthesia Past Surgical History Surgical History Hx of colonoscopy History of vascular access device 04/2022, [facility] H/O wisdom tooth extraction History of esophagogastroduodenoscopy (EGD) History of abdominal paracentesis Social History Smoking Status: Current every day smoker tobacco type: cigarettes Smoking cigarettes per day: 1-2 Do You Dip or Chew Tobacco: No Hx Alcohol Use: Yes Alcohol type: hard liquor alcohol intake frequency: 3 or more drinks per day Hx Substance Use: Yes substance use type: marijuana Last Used Substance Other:: 2 months Physical Exam Vital Signs Last Vital Signs Temp 37 C 01/26/24 22:19 Pulse 77 01/27/24 07:27 Resp 18 01/27/24 07:13 BP 109/58 L 01/27/24 07:30 Pulse Ox 99 01/27/24 07:13 O2 Del Method Room Air 01/27/24 07:13 O2 Flow Rate 0 01/26/24 18:20 Testing Laboratory Results 01/27/24 06:25 01/27/24 06:25 PT 20.8 Seconds (9.0-12.0) H 01/27/24 06:25 INR 2.0 (0.9-1.1) H 01/27/24 06:25 APTT 39 Seconds (21-31) H 01/26/24 15:19 Urine Color Dark Yellow 01/26/24 17:05 Urine Appearance Clear (Clear) 01/26/24 17:05 Urine pH 6.5 (4.5-7.5) 01/26/24 17:05 Ur Specific Arley 1.017 (1.000-1.030) 01/26/24 17:05 Urine Protein Trace (Negative) H 01/26/24 17:05 Urine Glucose (UA) Negative (Negative) 01/26/24 17:05 Urine Ketones Negative (Negative) 01/26/24 17:05 Urine Nitrite Positive (Negative) A 01/26/24 17:05 Ur Leukocyte Esterase 2+ (Negative) H 01/26/24 17:05 Urine WBC (Auto) 6-10 /hpf (0-5) H 01/26/24 17:05 Urine RBC (Auto) 3-5 /hpf (0-2) H 01/26/24 17:05 U Hyaline Cast (Auto) 0-2 /lpf (0-2) 01/26/24 17:05 U Epithel Cells (Auto) 0-2 /hpf (0-2) 01/26/24 17:05 Urine Bacteria (Auto) 4+ (None Seen) H 01/26/24 17:05 Blood Type O Positive 01/26/24 15:19 Antibody Screen NEGATIVE 01/26/24 15:19 Electrocardiogram Date: 01/26/24 Normal sinus rhythm Inferior infarct , age undetermined Cannot rule out Anteroseptal infarct (cited on or before 14-JUL-2022) Abnormal ECG When compared with ECG of 26-JUL-2023 19:13, No significant change was found Confirmed by Elliot Knight ([id number]) on 01/27/2024 4:14:45 AM Chest X-Ray Date: 01/26/24 CLINICAL HISTORY: GI bleed. COMPARISON STUDY: Chest CT June 30, 2022. Chest radiograph September 16, 2023. FINDINGS: Right internal jugular [id number] is in place. Lung volumes are normal. Lungs are clear. There is no pneumothorax or pleural effusion. Cardiac size is normal. Mediastinal contours are normal. There is no evidence for pulmonary edema. IMPRESSION: No acute cardiopulmonary findings. Echocardiogram Date: 03/28/22 EF: 50-54 LV Function: normal RWMA: + none small pericardial effusion
--- NOTE | 2024-01-27 10:08 | Gastrointestinal Consultation ---
Date of Consultation January 27, 2024 Assessment & Plan (1) Decompensated hepatic cirrhosis: (2) Acute GI bleeding: Plan Patient is a 38 y.o. female with a history of decompensated ETOH cirrhosis admitted with weakness and acute blood loss anemia with melena beginning 2 weeks [employer]. Last EGD 09/16/23 with 2 large columns of varices with red bozena signs requiring banding. 1. Unable to calculate MELD due to hyperbilirubinuria. 2. NPO. 3. Continue IV Ceftriaxone and PPI/Octreotide ggts. 4. EGD by Dr. Taylor today. 5. Further reccs pending results of testing. Supervising Physician Co-Signing Physician Notes Agree with TIAN Carmona as above Interviewed and examined patient and agree with above Abd: Soft, NT, distended, +BS Continue current therapy and supportive care EGD Now History of Present Illness Reason for Consultation: GIB Requesting Physician: Amy Herrmann PA-C Attending Physician: Hellen Mayfield MD History of Present Illness Patient is a 38 y.o. female with a history of ETOH decompensated cirrhosis with portal HTN s/p TIPS with revision, varices, and portal gastropathy admitted with weakness and melena x 2 weeks beginning after an alcohol relapse of hard alcohol x 2 days [employer]. She is followed by [facility] hepatology. H&H on admission was noted to be 5.4/16. She has received 2 units PRBCs and repeat H&H this morning was noted to be 7.8/24.9. Patient has been started on IV Ceftriaxone as well as PPI/Octreotide ggts. Denies any current melena, hematochezia, hematemesis, abdominal pain or nausea. No confusion, withdrawal sx or tremor. She remains on neutropenic precautions due to pancytopenia and white blood cell count of 2.19. CT demonstrated only small amount of ascites and patent TIPS. Also findings of probable rectal varices, and chronic pancreatitis. Last EGD was performed by Dr. Bañuelos with findings of 2 large variceal columns with red bozena sign s/p banding as well as portal gastropathy. Was recommended to be transferred to [facility] to her transplant facility but patient refused transfer. Allergies Allergy/AdvReac Type Severity Reaction Status Date / Time banana Allergy Intermediate RASH, Verified 09/16/23 01:13 THROAT SLIGHTLY SWOLLEN Penicillins Allergy Unknown HAPPENED Verified 09/16/23 01:13 A CHILD Home Medications Medication Instructions Recorded Confirmed Type albuterol sulfate 90 mcg/actuation 2 inh inhalation BID PRN Shortness 06/24/20 01/26/24 History aerosol inhaler (ProAir HFA) Of Breath budesonide-formoterol HFA 160 2 puff inhalation BID 06/20/21 01/26/24 History mcg-4.5 mcg/actuation aerosol inhaler (Symbicort) dextroamphetamine-amphetamine 5 mg 5 mg PO AMPM 06/20/21 01/26/24 History tablet (Adderall) ipratropium 20 mcg-albuterol 100 1 puff inhalation BID 06/20/21 01/26/24 History mcg/actuation mist for inhalation (Combivent Respimat) loratadine 10 mg tablet 10 mg PO QAM 06/20/21 01/26/24 History montelukast 10 mg tablet 10 mg PO HS 06/20/21 01/26/24 History omeprazole 20 mg capsule,delayed 20 mg PO QAM 06/20/21 01/26/24 History release fluticasone propionate 50 2 spray intranasal QAM PRN 10/03/21 01/26/24 History mcg/actuation nasal allergies spray,suspension multivitamin 1 tab PO QAM 10/03/21 01/26/24 History ascorbic acid (vitamin C) 500 mg 500 mg PO QAM 01/31/22 01/26/24 History tablet (Vitamin C) cholecalciferol (vitamin D3) 50 50 mcg PO QAM 01/31/22 01/26/24 History mcg (2,000 unit) capsule (Vitamin D3) thiamine HCl (vitamin B1) 100 mg 100 mg PO QAM #30 tabs 03/23/22 01/26/24 Rx tablet magnesium oxide 400 mg (241.3 mg 400 mg PO BID 03/25/22 01/26/24 History magnesium) tablet potassium chloride 20 mEq 20 meq PO QAM 03/25/22 01/26/24 History tablet,extended release diclofenac sodium 1 % topical gel 4 g topical TID PRN Pain 10/14/22 01/26/24 History (Voltaren Arthritis Pain) metoclopramide HCl 10 mg tablet 10 mg PO AMHS PRN Nausea 01/07/23 01/26/24 History folic acid 1 mg tablet 1 mg PO QAM 09/16/23 01/26/24 History promethazine 12.5 mg tablet 12.5 mg PO Q6 PRN Nausea 09/16/23 01/26/24 History lactulose 10 gram/15 mL oral 10 g PO QID 01/26/24 01/26/24 History solution Patient History Medical History Decompensated hepatic cirrhosis History of COVID-19 early 2019, tested thru hospital at [place], hospitalized during covid; fatigue, body aches, decreased appetite>resolved. Hemoptysis "sometimes still has this" Acute chest wall pain hx-"from a recent fall where she broke some ribs" Fall 06/2022, fx ribs VAN (acute kidney injury) hx Portal hypertension Alcoholic cirrhosis with abn coags Anemia pre-op H&H 04/15/22: 05/15 History of pancreatitis alcoholic 05/2021 per records GERD (gastroesophageal reflux disease) Pneumonia February 2022 treated at [facility]. denies sob currently Thrombocytopenia Jaundice hx-"not very much now" Acute on chronic alcoholic liver disease "currently trying to get on the transplant list" Hypokalemia Acute hyponatremia Hypomagnesemia Hyperbilirubinemia Rectal bleeding "a little when she's constipated" Alcohol abuse with withdrawal Fatty liver Depression Alcoholic hepatitis Anxiety ADD (attention deficit disorder) Asthma well controlled with inhalers Alcohol abuse Surgical History Hx of colonoscopy History of vascular access device 04/2022, [facility] H/O wisdom tooth extraction History of esophagogastroduodenoscopy (EGD) History of abdominal paracentesis Family History Grandmother Breast cancer Grandfather Heart disease Other No family history of adverse response to anesthesia Social History Smoking Status: Current every day smoker Tobacco Type: Cigarettes Cigarettes Per Day: 1-2; Second Hand Exposure: No; Do You Dip or Chew Tobacco: No; Hx Alcohol Use: Yes Alcohol type: hard liquor Hx Substance Use: Yes Last Used Substance Other:: 2 months Preferred Language: Citizen Of [place] 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 Ability: Effective [employer]er Required: No Beliefs That Will Affect Care: None marital status: Single Current Living Situation: Significant Other Current Living Situation Comment: Apartment current occupational status: employed How many Children do You have: 0 Other Information That Helps Us Care for You: No Feels Safe at Home: Yes Safety Concerns: Feels Safe At This Time Assistive Devices: None Review of Systems Constitutional: as per Subjective / HPI Respiratory: no problem reported Cardiovascular: no problem reported Gastrointestinal: as per Subjective / HPI Musculoskeletal: as per Subjective / HPI Physical Exam Constitutional: WD/WN, vitals as above Eyes: + scleral abnormality bilateral icterus Respiratory: normal respiratory effort, lungs clear to auscultation Cardiovascular: RRR, no murmur, no edema Gastrointestinal (Abdomen): Inspection/Auscultation: normal bowel sounds Percussion/Palpation: abdomen soft; abdomen nontender and no ascites Skin: + jaundice Psychiatric: A+Ox3, euthymic affect Results & Data Vital Signs (Past 12 Hours) Vital Signs Temp Pulse Pulse Resp BP BP Pulse Ox 01/27/24 07:30 109/58 L 01/27/24 07:27 77 01/27/24 07:13 89 18 99 01/27/24 07:09 75 20 98 01/27/24 05:00 74 18 113/72 98 01/27/24 04:00 78 19 109/68 99 01/27/24 03:00 76 16 103/61 97 01/27/24 02:00 67 22 114/65 98 01/27/24 00:32 80 20 100 01/26/24 23:45 93/55 L 01/26/24 23:45 100 01/26/24 23:15 100 01/26/24 23:15 98/63 L 01/26/24 23:00 100 01/26/24 23:00 104/68 01/26/24 23:00 79 18 104/68 99 01/26/24 22:45 83 22 99 01/26/24 22:45 98/54 L 01/26/24 22:30 100/61 01/26/24 22:30 79 29 H 100 01/26/24 22:19 37 C 78 22 108/64 99 01/26/24 22:15 81 26 H 99 01/26/24 22:15 108/64 O2 Del Method 01/27/24 07:30 01/27/24 07:27 01/27/24 07:13 Room Air 01/27/24 07:09 01/27/24 05:00 Room Air 01/27/24 04:00 Room Air 01/27/24 03:00 Room Air 01/27/24 02:00 Room Air 01/27/24 00:32 01/26/24 23:45 01/26/24 23:45 01/26/24 23:15 01/26/24 23:15 01/26/24 23:00 01/26/24 23:00 01/26/24 23:00 Room Air 01/26/24 22:45 01/26/24 22:45 01/26/24 22:30 01/26/24 22:30 01/26/24 22:19 01/26/24 22:15 01/26/24 22:15 Diagnostic Findings Laboratory Results WBC 2.19 K/ul (4.8-10.8) L 01/27/24 06:25 RBC 2.38 M/uL (4.20-5.40) L 01/27/24 06:25 Hgb 7.8 g/dl (12.0-16.0) L 01/27/24 06:25 POC Hgb 5.4 g/dl (12.0-16.0) L* 01/26/24 15:39 Hct 24.9 % (37.0-47.0) L 01/27/24 06:25 POC Hct 16 % (37-47) L* 01/26/24 15:39 MCV 104.6 fL (80.0-100.0) H D 01/27/24 06:25 MCH 32.8 pg (25.0-34.0) 01/27/24 06:25 MCHC 31.3 g/dL (32.0-36.0) L 01/27/24 06:25 RDW Std Deviation 63.9 fL (36.4-46.3) H 01/26/24 15:19 RDW Coeff of Yasmine 15.1 % (11.5-14.5) H 01/26/24 15:19 Plt Count 47 K/uL (130-400) L 01/27/24 06:25 MPV 11.5 fL (9.4-12.4) 01/27/24 06:25 Immature Gran % (Auto) 1.8 % 01/27/24 06:25 Neut % (Auto) 79.4 % 01/27/24 06:25 Lymph % (Auto) 11.0 % 01/27/24 06:25 Jewell % (Auto) 6.4 % 01/27/24 06:25 Eos % (Auto) 0.9 % 01/27/24 06:25 Baso % (Auto) 0.5 % 01/27/24 06:25 Neut # (Auto) 1.74 K/uL (1.40-6.50) 01/27/24 06:25 Lymph # (Auto) 0.24 K/uL (1.20-3.40) L 01/27/24 06:25 Jewell # (Auto) 0.14 K/uL (0.11-0.59) 01/27/24 06:25 Eos # (Auto) 0.02 K/uL (0.00-0.50) 01/27/24 06:25 Baso # (Auto) 0.01 K/uL (0.00-0.20) 01/27/24 06:25 Immature Gran # (Auto) 0.04 K/uL (0.01-0.20) 01/27/24 06:25 Polychromasia 2+ 01/27/24 06:25 Anisocytosis Present 01/27/24 06:25 Macrocytosis Present 01/26/24 15:19 PT 20.8 Seconds (9.0-12.0) H 01/27/24 06:25 INR 2.0 (0.9-1.1) H 01/27/24 06:25 APTT 39 Seconds (21-31) H 01/26/24 15:19 PTT Ratio 1.4 01/26/24 15:19 POC Sodium 136 mmol/L (135-144) 01/26/24 15:39 Sodium 132 mmol/L (136-145) L 01/27/24 06:25 POC Potassium 3.0 mmol/L (3.3-5.0) L 01/26/24 15:39 Potassium 5.0 mmol/L (3.5-5.1) D 01/27/24 06:25 POC Chloride 108 mmol/L (101-112) 01/26/24 15:39 Chloride 114 mmol/L (98-107) H 01/27/24 06:25 Carbon Dioxide 13 mmol/L (21-32) L 01/27/24 06:25 POC Total CO2 13 mmol/L (24-31) L 01/26/24 15:39 Anion Gap 5 (3-11) 01/27/24 06:25 POC Anion Gap 20.0 mmol/L (16-25) 01/26/24 15:39 POC BUN 8 mg/dl (7-18) 01/26/24 15:39 BUN TNP 01/27/24 06:25 Creatinine TNP 01/27/24 06:25 POC Creatinine 1.1 mg/dl (0.6-1.3) 01/26/24 15:39 Est Cr Clr Drug Dosing TNP 01/27/24 06:25 Est GFR ( Amer) Not Reportable 01/27/24 06:25 Est GFR (Non-Af Amer) Not Reportable 01/27/24 06:25 BUN/Creatinine Ratio TNP 01/27/24 06:25 Glucose 133 mg/dl (70-99(Fasting)) H 01/27/24 06:25 POC Glucose (other) 99 mg/dl (70-99) 01/26/24 15:39 Calcium 6.0 mg/dl (8.6-10.3) L 01/27/24 06:25 POC Ioniz Calcium Liz 1.05 mmol/l (1.12-1.32) L 01/26/24 15:39 Magnesium TNP 01/27/24 06:25 Total Bilirubin 28.4 mg/dl (0.2-1.0) H 01/27/24 06:25 Direct Bilirubin 19.3 mg/dl (0-0.2) H 01/26/24 15:19 AST 106 U/L (13-39) H 01/27/24 06:25 ALT 23 U/L (7-52) 01/27/24 06:25 Alkaline Phosphatase TNP 01/27/24 06:25 Ammonia TNP 01/27/24 06:25 Troponin I High Sens 3.9 pg/ml (0-14) 01/26/24 15:19 Total Protein 5.8 gm/dl (6.0-8.3) L 01/27/24 06:25 Albumin 2.3 gm/dl (3.4-5.0) L 01/27/24 06:25 Globulin 3.5 gm/dl (2.5-4.0) 01/27/24 06:25 Albumin/Globulin Ratio 0.7 (0.9-2) L 01/27/24 06:25 Lipase TNP 01/26/24 17:05 HCG, Qual Negative (Negative) 01/26/24 15:19 Urine Color Dark Yellow 01/26/24 17:05 Urine Appearance Clear (Clear) 01/26/24 17:05 Urine pH 6.5 (4.5-7.5) 01/26/24 17:05 Ur Specific [place] 1.017 (1.000-1.030) 01/26/24 17:05 Urine Protein Trace (Negative) H 01/26/24 17:05 Urine Glucose (UA) Negative (Negative) 01/26/24 17:05 Urine Ketones Negative (Negative) 01/26/24 17:05 Urine Blood Negative (Negative) 01/26/24 17:05 Urine Nitrite Positive (Negative) A 01/26/24 17:05 Urine Bilirubin 3+ (Negative) H 01/26/24 17:05 Urine Urobilinogen Negative (Negative) 01/26/24 17:05 Ur Leukocyte Esterase 2+ (Negative) H 01/26/24 17:05 Urine WBC (Auto) 6-10 /hpf (0-5) H 01/26/24 17:05 Urine RBC (Auto) 3-5 /hpf (0-2) H 01/26/24 17:05 U Hyaline Cast (Auto) 0-2 /lpf (0-2) 01/26/24 17:05 U Epithel Cells (Auto) 0-2 /hpf (0-2) 01/26/24 17:05 Urine Bacteria (Auto) 4+ (None Seen) H 01/26/24 17:05 Ethyl Alcohol mg/dL < 10.0 mg/dl (<10.0) 01/26/24 15:19 Blood Type O Positive 01/26/24 15:19 Antibody Screen NEGATIVE 01/26/24 15:19 Crossmatch See Detail 01/26/24 15:19 Impressions Chest X-Ray 01/26/24 15:05 XR chest 1V portable CLINICAL HISTORY: GI bleed. COMPARISON STUDY: Chest CT June 30, 2022. Chest radiograph September 16, 2023. FINDINGS: Right internal jugular [id number] is in place. Lung volumes are normal. Lungs are clear. There is no pneumothorax or pleural effusion. Cardiac size is normal. Mediastinal contours are normal. There is no evidence for pulmonary edema. IMPRESSION: No acute cardiopulmonary findings. ACT 112: Negative or not required by law. Electronically signed by: Luis Zarate M.D. 01/26/2024 4:01 PM KUB X-Ray 01/26/24 15:05 XR KUB/Abdomen 1 view CLINICAL HISTORY: GIB TECHNIQUE: 1 view of the abdomen was obtained. Comparison: Comparison is made to abdomen radiograph 03/17/2022 FINDINGS: Vascular stent is noted in the right upper quadrant, likely TIPS stent. The osseous structures are grossly unremarkable. The bowel gas pattern is nonobstructive. Small stool burden is seen. IMPRESSION: Nonobstructive bowel gas pattern. ACT 112: Negative or not required by law. Electronically signed by: Carlos Sullivan M.D. 01/26/2024 4:03 PM Abdomen/Pelvis CT 01/26/24 16:40 CT OF THE ABDOMEN AND PELVIS WITH CONTRAST CLINICAL HISTORY: GI bleed. COMPARISON STUDY: CT of the abdomen and pelvis June 03, 2022. KUB performed earlier today. TECHNIQUE: Following IV administration of 91 mL of Optiray, axial images of the abdomen and pelvis were obtained from the lung bases to the proximal femurs. Images were reviewed in the axial, sagittal, and coronal planes. IV contrast was administered without complication. Automated exposure control was utilized for the study. A dose lowering technique was utilized adhering to the principles of ALARA. CT DOSE: 973.52 mGy.cm FINDINGS: Lung bases are unremarkable. No pneumatosis, free air or portal venous gas is present. Nodularity of the liver surface has increased since CT of July 03, 2022 and is consistent with cirrhosis. There is a small amount of perihepatic ascites. The TIPS is patent. The liver is markedly heterogeneous in appearance with numerous hypodense foci. Hepatic vessels extend through these foci. There is no biliary or pancreatic ductal dilatation. Stones within the gallbladder are present. The gallbladder is not distended. There is trace perisplenic ascites. Abdominal varices are present. These include paraesophageal varices. Hyperdense material within the lumen of the body of the stomach is noted. There is moderate splenomegaly. Adrenal glands, kidneys are unremarkable. Multifocal calcifications within the uncinate process are present. There is no peripancreatic infiltration. There is no evidence for a bowel obstruction. There is sigmoid diverticulosis without evidence for acute diverticulitis. There is diffuse colonic and rectal wall thickening with mild adjacent stranding. The appendix is normal. There are no urinary calculi. Main, left and right portal veins are patent. IMPRESSION: 1. Cirrhotic liver. Heterogeneous liver with innumerable hypodense foci. Hepatic vessels extend through these foci. Although nonspecific, the appearance favors multifocal hepatic steatosis. A neoplastic etiology is considered less likely however the findings could be correlated with alpha-fetoprotein level and nonemergent liver MRI. 2. Evidence for portal hypertension with abdominal varices, splenomegaly and a small amount of ascites. Patent TIPS. 3. Intraluminal hyperdense material within the stomach. This favors ingested con tents. However, intraluminal contrast in the setting of a GI bleed could appear similar. 4. Diffuse colorectal wall thickening. This may be related to portal hypertension or represent a nonspecific proctocolitis. 5. Cholelithiasis. 6. Multifocal calcifications within the uncinate process of the pancreas. This could be seen in the setting of chronic pancreatitis. ACT 112: Negative or not required by law. Electronically signed by: Luis Zarate M.D. 01/26/2024 5:10 PM PG Care Time/CCT Total # of Minutes Spent Total Time Spent with Patient: Total time spent is greater than 50% in coordination of care (as documented) at patient's floor/unit and/or counseling patient: Coding Level of Care Code 23295 INT INP/OBS CARE 3/75MIN Diagnoses Decompensated hepatic cirrhosis K72.90; K74.60 Acute GI bleeding K92.2
[2024-01-27 10:31] LABS: INR 2.1 (0.9-1.1); Prothrombin Time 21.1 Seconds (9.0-12.0)
--- NOTE | 2024-01-27 13:19 | GI REPORT ---
Patient Name: Kathie Burr Procedure Date: 01/27/2024 12:47 PM Date of : 1985 Admit Type: Inpatient Age: 38 Gender: Female Attending MD: Vlad Taylor DO, Procedure: Upper GI endoscopy Providers: Vlad Taylor DO Referring MD: Hellen Carlos Indications: Melena Medicines: Monitored Anesthesia Care Complications: No immediate complications. Estimated Blood Loss: Estimated blood loss: none. Procedure: Pre-Anesthesia Assessment: - Prior to the procedure, a History and Physical was performed, and patient medications and allergies were reviewed. The patient's tolerance of previous anesthesia was also reviewed. The risks and benefits of the procedure and the sedation options and risks were discussed with the patient. All questions were answered, and informed consent was obtained. Prior Anticoagulants: The patient has taken no anticoagulant or antiplatelet agents. ASA Grade Assessment: III - A patient with severe systemic disease. After reviewing the risks and benefits, the patient was deemed in satisfactory condition to undergo the procedure. After obtaining informed consent, the endoscope was passed under direct vision. Throughout the procedure, the patient's blood pressure, pulse, and oxygen saturations were monitored continuously. The Endoscope was introduced through the mouth, and advanced to the second part of duodenum. The upper GI endoscopy was accomplished without difficulty. The patient tolerated the procedure well. Findings: Mildly severe esophagitis with no bleeding was found 38 cm from the incisors. No evidence of esophageal varices. A small hiatal hernia was present. No gastric varices noted Moderate portal hypertensive gastropathy was found in the entire examined stomach. The examined duodenum was normal. Impression: - Mildly severe reflux esophagitis with no bleeding. - Small hiatal hernia. - Portal hypertensive gastropathy. - Normal examined duodenum. - No specimens collected. Recommendation: - [facility]. - Resume previous diet. - OK to stop Protonix gtt. - Place on Prtonix 40 mg IV BID, and discharge on twice daily PPI therapy. - OK to stop Octreotide gtt. Vlad Taylor DO 01/27/2024 1:18:48 PM This report has been signed electronically. Note Initiated On: 01/27/2024 12:47 PM Number of Addenda: 0 I attest to the content of the Intraoperative Record and orders documented therein, exceptions below {[id number]}
--- NOTE | 2024-01-27 13:48 | Anesthesiology Progress Note ---
Date of Service January 27, 2024 Anesthesia Post Procedure Vital Signs Vital Signs: Temp Pulse Pulse Resp BP BP Pulse Ox 01/27/24 13:30 70 16 93/60 L 100 01/27/24 13:15 70 18 91/57 L 95 01/27/24 11:09 36.6 C 75 20 99/69 L 100 01/27/24 07:30 109/58 L 01/27/24 07:27 77 01/27/24 07:13 89 18 99 01/27/24 07:09 75 20 98 01/27/24 05:00 74 18 113/72 98 01/27/24 04:00 78 19 109/68 99 01/27/24 03:00 76 16 103/61 97 01/27/24 02:00 67 22 114/65 98 01/27/24 00:32 80 20 100 01/26/24 23:45 93/55 L 01/26/24 23:45 100 01/26/24 23:15 100 01/26/24 23:15 98/63 L 01/26/24 23:00 100 01/26/24 23:00 104/68 01/26/24 23:00 79 18 104/68 99 01/26/24 22:45 83 22 99 01/26/24 22:45 98/54 L 01/26/24 22:30 100/61 01/26/24 22:30 79 29 H 100 01/26/24 22:19 37 C 78 22 108/64 99 01/26/24 22:15 81 26 H 99 01/26/24 22:15 108/64 01/26/24 22:00 80 27 H 100 01/26/24 22:00 113/66 01/26/24 21:43 37 C 82 15 106/52 L 100 01/26/24 21:40 01/26/24 21:40 37 C 79 16 106/52 L 100 01/26/24 21:32 37 C 80 22 106/52 L 100 01/26/24 21:30 78 27 H 100 01/26/24 21:30 103/57 L 01/26/24 21:15 86 24 100 01/26/24 21:15 110/57 L 01/26/24 21:09 80 01/26/24 21:02 106/57 L 01/26/24 21:02 80 21 100 01/26/24 21:02 36.9 C 79 20 106/57 L 100 01/26/24 21:00 80 19 100 01/26/24 21:00 99/56 L 01/26/24 20:47 36.8 C 80 16 99/56 L 100 01/26/24 20:45 82 20 100 01/26/24 20:45 106/58 L 01/26/24 20:31 37.0 C 83 20 124/71 100 01/26/24 20:30 124/71 01/26/24 20:30 18 100 01/26/24 20:06 36.8 C 81 21 106/58 L 100 01/26/24 20:05 79 26 H 100 01/26/24 20:05 118/66 01/26/24 20:05 37 C 79 22 118/66 100 01/26/24 20:00 80 22 100 01/26/24 20:00 118/71 01/26/24 19:53 87 21 100 01/26/24 19:53 112/62 01/26/24 19:50 36.8 C 81 18 112/62 100 01/26/24 19:30 86 23 99 01/26/24 19:30 107/63 01/26/24 19:00 81 29 H 100 01/26/24 19:00 112/61 01/26/24 18:50 36.7 C 80 16 105/59 L 100 01/26/24 18:48 105/59 L 01/26/24 18:48 81 26 H 100 01/26/24 18:45 107/58 L 01/26/24 18:45 83 24 100 01/26/24 18:30 83 28 H 99 01/26/24 18:30 110/59 L 01/26/24 18:20 37.0 C 83 22 105/56 L 100 01/26/24 18:15 105/56 L 01/26/24 18:15 82 22 100 01/26/24 18:05 37.0 C 82 21 106/53 L 99 01/26/24 18:04 106/53 L 01/26/24 18:04 81 20 100 01/26/24 18:02 01/26/24 18:01 86 16 99 01/26/24 17:48 36.9 C 82 14 103/59 L 100 01/26/24 17:15 83 01/26/24 17:14 83 14 103/59 L 100 01/26/24 14:52 36.9 C 96 H 14 103/64 98 Pulse Ox O2 Del Method O2 Flow Rate 01/27/24 13:30 Room Air 01/27/24 13:15 Room Air 01/27/24 11:09 Room Air 01/27/24 07:30 01/27/24 07:27 01/27/24 07:13 Room Air 01/27/24 07:09 01/27/24 05:00 Room Air 01/27/24 04:00 Room Air 01/27/24 03:00 Room Air 01/27/24 02:00 Room Air 01/27/24 00:32 01/26/24 23:45 01/26/24 23:45 01/26/24 23:15 01/26/24 23:15 01/26/24 23:00 01/26/24 23:00 01/26/24 23:00 Room Air 01/26/24 22:45 01/26/24 22:45 01/26/24 22:30 01/26/24 22:30 01/26/24 22:19 01/26/24 22:15 01/26/24 22:15 01/26/24 22:00 01/26/24 22:00 01/26/24 21:43 Room Air 01/26/24 21:40 100 01/26/24 21:40 Room Air 01/26/24 21:32 01/26/24 21:30 01/26/24 21:30 01/26/24 21:15 01/26/24 21:15 01/26/24 21:09 01/26/24 21:02 01/26/24 21:02 01/26/24 21:02 01/26/24 21:00 01/26/24 21:00 01/26/24 20:47 01/26/24 20:45 01/26/24 20:45 01/26/24 20:31 01/26/24 20:30 01/26/24 20:30 01/26/24 20:06 01/26/24 20:05 01/26/24 20:05 01/26/24 20:05 01/26/24 20:00 01/26/24 20:00 01/26/24 19:53 01/26/24 19:53 01/26/24 19:50 01/26/24 19:30 01/26/24 19:30 01/26/24 19:00 01/26/24 19:00 01/26/24 18:50 01/26/24 18:48 01/26/24 18:48 01/26/24 18:45 01/26/24 18:45 01/26/24 18:30 01/26/24 18:30 01/26/24 18:20 0 01/26/24 18:15 01/26/24 18:15 01/26/24 18:05 0 01/26/24 18:04 01/26/24 18:04 01/26/24 18:02 Room Air 01/26/24 18:01 01/26/24 17:48 0 01/26/24 17:15 01/26/24 17:14 Room Air 01/26/24 14:52 Room Air Transfer of Care Handoff Completed per policy Notes Mental Status: alert / awake / arousable and participated in evaluation Patient Amnestic to Procedure: Yes Nausea / Vomiting: adequately controlled Pain: adequately controlled Airway Patency, RR, SpO2: stable & adequate BP & HR: stable & adequate Hydration State: stable & adequate Anesthetic Complications: no major complications apparent
[2024-01-27] MEDS: PROPOFOL IV EMULSION 10 MG/ML 20 ML VIAL IV ONE (14:47)
[2024-01-27] MEDS: LIDOCAINE 2% 2 ML VIAL/AMP(20MG/ML) INFIL ONE (14:47)
[2024-01-27] MEDS: STAT IV/IM STA (15:14)
[2024-01-27] MEDS: cefTRIAXone SODIUM 2,000 MG/50 ML BAG IV SCH (16:13)
[2024-01-27] MEDS: PANTOprazole 40 MG in SYRINGE 0 ML IV SCH (21:04)
[2024-01-28] MEDS ORDERED: prednisoLONE sod phosphate 15 MG/5 ML PO SCH
[2024-01-28 07:18] LABS: INR 1.9 (0.9-1.1); Prothrombin Time 19.8 Seconds (9.0-12.0)
[2024-01-28 07:39] LABS: Basophils # (auto) 0.01 K/uL (0.00-0.20); Basophils % (auto) 0.3 %; Eosinophils # (auto) 0.01 K/uL (0.00-0.50); Eosinophils % (auto) 0.3 %; Hemoglobin 7.9 g/dl (12.0-16.0); Immature Granulocytes # (auto) 0.04 K/uL (0.01-0.20); Immature Granulocytes % (auto) 1.3 %; Lymphocytes # (auto) 0.33 K/uL (1.20-3.40); Mean Corpuscular Hemoglobin 32.6 pg (25.0-34.0); Mean Corpuscular Hgb Conc 31.6 g/dL (32.0-36.0); Mean Corpuscular Volume 103.3 fL (80.0-100.0); Monocytes # (auto) 0.36 K/uL (0.11-0.59); Neutrophils # (auto) 2.25 K/uL (1.40-6.50); Neutrophils % (auto) 75.1 %; Platelet Count 72 K/uL (130-400); Red Blood Count 2.42 M/uL (4.20-5.40)
[2024-01-28 07:46] LABS: Alanine Aminotransferase 27 U/L (7-52); Albumin Globulin Ratio 0.7 (0.9-2); Albumin Level 2.3 gm/dl (3.4-5.0); Anion Gap 8 (3-11); Aspartate Aminotransferase 114 U/L (13-39); Bilirubin,Total 29.2 mg/dl (0.2-1.0); Calcium 6.2 mg/dl (8.6-10.3); Carbon Dioxide 14 mmol/L (21-32); Chloride 116 mmol/L (98-107); Globulin 3.4 gm/dl (2.5-4.0); Glucose 166 mg/dl (70-99(Fasting)); Potassium 3.9 mmol/L (3.5-5.1); Sodium 138 mmol/L (136-145); Total Protein 5.7 gm/dl (6.0-8.3)
[2024-01-28 08:01] LABS: Anisocytosis Present; Polychromasia 1+
--- NOTE | 2024-01-28 08:15 | Hospitalist Progress Note ---
Date of Service Delayed note for the service of 01/27/2024 January 27, 2024 Assessment & Plan (1) Decompensated hepatic cirrhosis: (2) Symptomatic anemia: (3) Acute GI bleeding: (4) Pancytopenia: Plan This is a 38-year-old female who has a significant past medical history of alcoholic cirrhosis of liver, portal hypertension with history of TIPS procedure in August 2023 and revision in , esophageal varices, pancytopenia in setting of alcohol use, alcohol use disorder, ADHD, GERSON, major depressive disorder, central venous access in place and right anterior chest wall and asthma who presents to ED at the referral of outpatient provider due to abnormal labs. Symptomatic anemia hx of esophageal varices Thrombocytopenia Probable GI bleeding Discussed case with on-call filter bed placer Dr. Taylor It was recommended patient be transferred to tertiary center due to complexity of patient Patient adamantly refused transfer despite risks of worsened anemia, further bleeding requiring emergent endoscopy, lack of interventional radiology services but persisted to refuse transfer She has known esophageal varices and underwent TIPS procedure as well Hemoglobin on admission was 5.8 Received 2 units of packed red blood cells Platelet count 39, will hold on transfusion of platelets to prioritize PRBCs Status post EGD with negative evidence of active bleeding Octreotide and Protonix infusion were discontinued Has been getting Protonix IV push twice a day Hemoglobin remained stable at 7.8 on 01/27/2024 Will monitor CBC She wants to go home --CT scan abdomen pelvis:1. Cirrhotic liver. Heterogeneous liver with innumerable hypodense foci. Hepatic vessels extend through these foci. Although nonspecific, the appearance favors multifocal hepatic steatosis. A neoplastic etiology is considered less likely however the findings could be correlated with alpha-fetoprotein level and nonemergent liver MRI. 2. Evidence for portal hypertension with abdominal varices, splenomegaly and a small amount of ascites. Patent TIPS. 3. Intraluminal hyperdense material within the stomach. This favors ingested contents. However, intraluminal contrast in the setting of a GI bleed could appear similar. cycle H/H, PT/INR Decompensated alcoholic liver cirrhosis-very high bilirubin of 29 and INR of 1.9 Acute on chronic liver failure Portal HTN S/P TIPS 09/12 with revision 10/2023 Madrey score 74, MELD 28 Discussed with gastroenterology Started on IV methylprednisolone 40 mg daily Reduce lactulose to 3 times daily as she is moving her bowels 6 times daily No signs of hepatic encephalopathy CT show patency of TIPS Pt needs Strong counseling on abstinence of alcohol, Continue thiamine and folic acid She refused to go to tertiary care center Hypokalemia replace, repeat bmp in a.m. Tobacco abuse Nicotine patch Depression with anxiety ADHD Continue meds, mood stable Asthma no acute exac continue inhalers DVT ppx: none for now in setting of Thrombocytopenia and bruising to lower extremity Dispo: Admit to PCU, GI is aware of patient, she is adamantly refusing transfer despite being educated on risk including FULL CODE [facility] Admission and Anticipated Discharge Date Admission Date: January 26, 2024 Subjective 01/27/2024 The patient was seen and examined in the emergency room She was admitted with melena and profound yellowness of the skin Status post EGD without any evidence of bleeding Review of Systems Review of Systems: All systems reviewed and unremarkable except as noted below Physical Exam Physical Exam: Lying in bed without any acute distress Constitutional: well developed, well nourished and + ill appearing Eyes: Yellow discoloration of the sclera ENMT: external ear and nose normal, oropharynx normal Neck: trachea midline, no thyromegaly Respiratory: no respiratory distress Auscultation: lungs clear to auscultation bilaterally Cardiovascular: Rate/Rhythm: regular rate and regular rhythm; not tachycardic Heart Sounds: normal S1 and normal S2; no murmur Extremities: + edema (Trace edema bilaterally) Gastrointestinal (Abdomen): Inspection/Auscultation: + abdomen distended and normal bowel sounds Percussion/Palpation: abdomen soft; abdomen nontender Musculoskeletal: No acute arthritis involving any of the joint Skin: Profound yellow discoloration of the skin Neurologic: normal touch/pain/proprioception and moves all extremities; no focal motor deficits Lymphatic: no cervical or axillary lymphadenopathy Results & Data Results & Data Vital Signs (Past 12 Hours) Vital Signs Temp Pulse Pulse Resp BP BP Pulse Ox 01/28/24 07:36 87 12 99 01/28/24 03:12 36.6 C 78 16 100/69 98 01/28/24 00:03 75 01/27/24 23:50 36.6 C 77 18 112/69 98 01/27/24 23:00 72 24 106/57 L 97 01/27/24 22:00 69 23 119/70 99 01/27/24 21:00 74 19 94/68 L 99 01/27/24 20:25 71 18 98 01/27/24 20:15 68 21 112/60 97 O2 Del Method FiO2 01/28/24 07:36 Room Air 21 01/28/24 03:12 Room Air 01/28/24 00:03 01/27/24 23:50 Room Air 01/27/24 23:00 Room Air 01/27/24 22:00 Room Air 01/27/24 21:00 Room Air 01/27/24 20:25 Room Air 01/27/24 20:15 Room Air Medications Administered Current Inpatient Medications Al Hydrox/Mg Hydrox/Simethicone (Aluminum/Magnesium Susp 30 Ml Udc) 15 ml PO Q4H PRN PRN Reason: Dyspepsia Stop: 02/25/24 21:32 Albuterol (Albuterol Hfa 8 Gm Inhaler) 2 puffs INH BID PRN PRN Reason: Shortness Of Breath Stop: 02/25/24 21:32 Albuterol (Albuterol Hfa 8 Gm Inhaler (Combivent Respimat P&T Subs)) 1 puffs INH BID [facility]; Protocol Stop: 02/26/24 08:59 Last Admin: 01/28/24 07:34 Dose: 1 puffs Amphetamine/Dextroamphetamine (Dextroamphetamine/Amphetamime Ir 5 Mg Tab) 5 mg PO BID [facility] Stop: 02/09/24 21:44 Last Admin: 01/27/24 21:03 Dose: 5 mg Ascorbic Acid (Ascorbic Acid 500 Mg Tab) 500 mg PO QAM [facility] Stop: 02/26/24 08:59 Last Admin: 01/27/24 09:21 Dose: 500 mg Fluticasone/Vilanterol (Fluticasone/Vilanterol 200/25mcg 14 Puffs/Inhaler) 1 puffs INH DAILY [facility]; Protocol Stop: 02/26/24 08:59 Last Admin: 01/27/24 09:35 Dose: 1 puffs Folic Acid (Folic Acid 1 Mg Tab) 1 mg PO QAM [facility] Stop: 02/26/24 08:59 Last Admin: 01/27/24 09:21 Dose: 1 mg Ceftriaxone Sodium (Rocephin) 2,000 mg in 50 mls @ 100 mls/hr IV Q24H [facility] Stop: 02/06/24 15:59 Last Infusion: 01/27/24 16:45 Dose: Infused Methylprednisolone 40 mg/ (Syringe) 0.64 mls @ 1.5 mls/min IV DAILY [facility] Stop: 02/25/24 21:44 Last Admin: 01/27/24 09:22 Dose: 1.5 mls/min Pantoprazole Sodium 40 mg/ (Syringe) 10 mls @ 5 mls/min IV BID [facility] Stop: 02/26/24 20:59 Last Admin: 01/27/24 21:04 Dose: 5 mls/min Ipratropium [place] (Ipratropium Hfa Inhaler (Combivent Respimat P&T Subs)) 1 puffs INH BID [facility]; Protocol Stop: 02/26/24 08:59 Last Admin: 01/28/24 07:33 Dose: 1 puffs Lactulose (Lactulose Syrup 20 Gm/30 Ml Udc) 10 gm PO Q8H [facility] Stop: 02/25/24 21:59 Last Admin: 01/28/24 06:03 Dose: 10 gm Loratadine (Loratadine 10 Mg Tab) 10 mg PO QAM [facility] Stop: 02/26/24 08:59 Last Admin: 01/27/24 09:20 Dose: 10 mg Magnesium Oxide (Magnesium Oxide 400 Mg Tab) 400 mg PO BID [facility] Stop: 02/25/24 21:32 Last Admin: 01/27/24 21:03 Dose: 400 mg Melatonin (Melatonin 3 Mg Tab) 3 mg PO HS PRN PRN Reason: Sleep Stop: 02/26/24 01:51 Last Admin: 01/27/24 02:10 Dose: 3 mg Miscellaneous (Remove Nicoderm Patch) 1 each N/A DAILY@2058 [facility] Stop: 02/26/24 08:58 Last Admin: 01/27/24 21:16 Dose: 1 each Montelukast Sodium (Montelukast Sodium 10 Mg Tablet) 10 mg PO HS [facility] Stop: 02/25/24 21:32 Last Admin: 01/27/24 21:03 Dose: 10 mg Multivitamins (Multivitamin Tab) 1 tab PO QAM [facility] Stop: 02/26/24 08:59 Last Admin: 01/27/24 09:21 Dose: 1 tab Nicotine (Nicotine 7 Mg/24 Hr Tdsy) 1 patch TD HS [facility] Stop: 02/25/24 21:32 Last Admin: 01/27/24 21:00 Dose: 1 patch Ondansetron HCl (Ondansetron Inj 2 Mg/Ml 2 Ml Vial) 4 mg IV Q6H PRN PRN Reason: Nausea Stop: 02/25/24 21:32 Last Admin: 01/27/24 09:34 Dose: 4 mg Thiamine HCl (Thiamine Hcl 100 Mg Tab) [address] [facility] Stop: 02/26/24 08:59 Last Admin: 01/27/24 09:21 Dose: 100 mg Vitamin D (Cholecalciferol 25 Mcg (1000 Units) Tab) [address] [facility] Stop: 02/26/24 08:59 Last Admin: 01/27/24 09:22 Dose: 50 mcg
[2024-01-28 10:33] LABS: Alkaline Phosphatase 197 U/L (34-104); Blood Urea Nitrogen 10 mg/dl (6-23); Magnesium 2.3 mg/dl (1.7-2.4)
--- NOTE | 2024-01-28 13:08 | Hospitalist Progress Note ---
Date of Service January 28, 2024 Assessment & Plan (1) Decompensated hepatic cirrhosis: (2) Symptomatic anemia: (3) Acute GI bleeding: (4) Pancytopenia: Plan This is a 38-year-old female who has a significant past medical history of alcoholic cirrhosis of liver, portal hypertension with history of TIPS procedure in August 2023 and revision in , esophageal varices, pancytopenia in setting of alcohol use, alcohol use disorder, ADHD, GERSON, major depressive disorder, central venous access in place and right anterior chest wall and asthma who presents to ED at the referral of outpatient provider due to abnormal labs. Symptomatic anemia hx of esophageal varices Thrombocytopenia Probable GI bleeding Discussed case with on-call snowmaker Dr. Taylor It was recommended patient be transferred to tertiary center due to complexity of patient Patient adamantly refused transfer despite risks of worsened anemia, further bleeding requiring emergent endoscopy, lack of interventional radiology services but persisted to refuse transfer She has known esophageal varices and underwent TIPS procedure as well Hemoglobin on admission was 5.8 Received 2 units of packed red blood cells Platelet count 39, will hold on transfusion of platelets to prioritize PRBCs Status post EGD with negative evidence of active bleeding Octreotide and Protonix infusion were discontinued Has been getting Protonix IV push twice a day Hemoglobin remained stable at 7.8 on 01/27/2024 Hemoglobin remained stable at 7.9 as of 01/28/2024 Discussed with the GI-she can be discharged home today on Protonix twice a day and also prednisolone 40 mg daily --CT scan abdomen pelvis:1. Cirrhotic liver. Heterogeneous liver with innumerable hypodense foci. Hepatic vessels extend through these foci. Although nonspecific, the appearance favors multifocal hepatic steatosis. A neoplastic etiology is considered less likely however the findings could be correlated with alpha-fetoprotein level and nonemergent liver MRI. 2. Evidence for portal hypertension with abdominal varices, splenomegaly and a small amount of ascites. Patent TIPS. 3. Intraluminal hyperdense material within the stomach. This favors ingested contents. However, intraluminal contrast in the setting of a GI bleed could appear similar. cycle H/H, PT/INR Decompensated alcoholic liver cirrhosis-very high bilirubin of 29 and INR of 1.9 Acute on chronic liver failure Portal HTN S/P TIPS 09/12 with revision 10/2023 Madrey score 74, MELD 28 Discussed with gastroenterology Started on IV methylprednisolone 40 mg daily Reduce lactulose to 3 times daily as she is moving her bowels 6 times daily No signs of hepatic encephalopathy CT show patency of TIPS Pt needs Strong counseling on abstinence of alcohol, Continue thiamine and folic acid She refused to go to tertiary care center She will need to see her snowmaker in [place] as soon as possible for her profound hyperbilirubinemia Hypokalemia replace, repeat bmp in a.m. Tobacco abuse Nicotine patch Depression with anxiety ADHD Continue meds, mood stable Asthma no acute exac continue inhalers DVT ppx: none for now in setting of Thrombocytopenia and bruising to lower extremity Dispo: Admit to PCU, GI is aware of patient, she is adamantly refusing transfer despite being educated on risk including FULL CODE PCP: [facility] Admission and Anticipated Discharge Date Admission Date: January 26, 2024 Subjective 01/27/2024 The patient was seen and examined in the emergency room She was admitted with melena and profound yellowness of the skin Status post EGD without any evidence of bleeding 01/28/2024 The patient was seen and examined in telemetry unit She has been weak but denies any more black stool, nausea and/or vomiting She remained profoundly jaundiced with yellow discoloration of the skin and the sclera Denies any abdominal pain Review of Systems Review of Systems: All systems reviewed and unremarkable except as noted below Physical Exam Physical Exam: Lying in bed without any acute distress Constitutional: well developed, well nourished and + ill appearing ENMT: external ear and nose normal, oropharynx normal Neck: trachea midline, no thyromegaly Respiratory: no respiratory distress Auscultation: lungs clear to auscultation bilaterally Cardiovascular: Rate/Rhythm: regular rate and regular rhythm; not tachycardic Heart Sounds: normal S1 and normal S2; no murmur Extremities: + edema (Trace edema bilaterally) Gastrointestinal (Abdomen): Inspection/Auscultation: + abdomen distended and normal bowel sounds Percussion/Palpation: abdomen soft; abdomen nontender Musculoskeletal: No acute arthritis involving any of the joint Neurologic: normal touch/pain/proprioception and moves all extremities; no focal motor deficits Lymphatic: no cervical or axillary lymphadenopathy Results & Data Results & Data Vital Signs (Past 12 Hours) Vital Signs Temp Pulse Pulse Resp BP Pulse Ox O2 Del Method 01/28/24 11:16 36.5 C 72 19 105/69 96 Room Air 01/28/24 08:00 77 01/28/24 07:47 36.5 C 79 21 114/72 99 Room Air 01/28/24 07:36 87 12 99 Room Air 01/28/24 03:12 36.6 C 78 16 100/69 98 Room Air FiO2 01/28/24 11:16 01/28/24 08:00 01/28/24 07:47 01/28/24 07:36 21 01/28/24 03:12 Laboratory Results Short CBC 01/28/24 Range/Units 06:33 WBC 3.00 L (4.8-10.8) K/ul Hgb 7.9 L (12.0-16.0) g/dl Hct 25.0 L (37.0-47.0) % Plt Count 72 L D (130-400) K/uL BMP 01/28/24 06:33 Sodium 138 Potassium 3.9 D Chloride 116 H Carbon Dioxide 14 L BUN 10 Creatinine TNP Glucose 166 H Calcium 6.2 L Liver Function 01/28/24 Range/Units 06:33 Total Bilirubin 29.2 H (0.2-1.0) mg/dl AST 114 H (13-39) U/L ALT 27 (7-52) U/L Alkaline Phosphatase 197 H (34-104) U/L Albumin 2.3 L (3.4-5.0) gm/dl Medications Administered Current Inpatient Medications Al Hydrox/Mg Hydrox/Simethicone (Aluminum/Magnesium Susp 30 Ml Udc) 15 ml PO Q4H PRN PRN Reason: Dyspepsia Stop: 02/25/24 21:32 Albuterol (Albuterol Hfa 8 Gm Inhaler) 2 puffs INH BID PRN PRN Reason: Shortness Of Breath Stop: 02/25/24 21:32 Albuterol (Albuterol Hfa 8 Gm Inhaler (Combivent Respimat P&T Subs)) 1 puffs INH BID [facility]; Protocol Stop: 02/26/24 08:59 Last Admin: 01/28/24 07:34 Dose: 1 puffs Amphetamine/Dextroamphetamine (Dextroamphetamine/Amphetamime Ir 5 Mg Tab) 5 mg PO BID [facility] Stop: 02/09/24 21:44 Last Admin: 01/28/24 09:20 Dose: 5 mg Ascorbic Acid (Ascorbic Acid 500 Mg Tab) 500 mg PO QAM [facility] Stop: 02/26/24 08:59 Last Admin: 01/28/24 09:00 Dose: 500 mg Fluticasone/Vilanterol (Fluticasone/Vilanterol 200/25mcg 14 Puffs/Inhaler) 1 puffs INH DAILY [facility]; Protocol Stop: 02/26/24 08:59 Last Admin: 01/28/24 08:59 Dose: 1 puffs Folic Acid (Folic Acid 1 Mg Tab) 1 mg PO QAM [facility] Stop: 02/26/24 08:59 Last Admin: 01/28/24 09:00 Dose: 1 mg Ceftriaxone Sodium (Rocephin) 2,000 mg in 50 mls @ 100 mls/hr IV Q24H [facility] Stop: 02/06/24 15:59 Last Infusion: 01/27/24 16:45 Dose: Infused Methylprednisolone 40 mg/ (Syringe) 0.64 mls @ 1.5 mls/min IV DAILY [facility] Stop: 02/25/24 21:44 Last Admin: 01/28/24 09:00 Dose: 1.5 mls/min Pantoprazole Sodium 40 mg/ (Syringe) 10 mls @ 5 mls/min IV BID [facility] Stop: 02/26/24 20:59 Last Admin: 01/28/24 09:00 Dose: 5 mls/min Ipratropium [place] (Ipratropium Hfa Inhaler (Combivent Respimat P&T Subs)) 1 puffs INH BID [facility]; Protocol Stop: 02/26/24 08:59 Last Admin: 01/28/24 07:33 Dose: 1 puffs Lactulose (Lactulose Syrup 20 Gm/30 Ml Udc) 10 gm PO Q8H [facility] Stop: 02/25/24 21:59 Last Admin: 01/28/24 06:03 Dose: 10 gm Loratadine (Loratadine 10 Mg Tab) 10 mg PO QAM [facility] Stop: 02/26/24 08:59 Last Admin: 01/28/24 09:00 Dose: 10 mg Magnesium Oxide (Magnesium Oxide 400 Mg Tab) 400 mg PO BID [facility] Stop: 02/25/24 21:32 Last Admin: 01/28/24 09:00 Dose: 400 mg Melatonin (Melatonin 3 Mg Tab) 3 mg PO HS PRN PRN Reason: Sleep Stop: 02/26/24 01:51 Last Admin: 01/27/24 02:10 Dose: 3 mg Miscellaneous (Remove Nicoderm Patch) 1 each N/A DAILY@2058 [facility] Stop: 02/26/24 08:58 Last Admin: 01/27/24 21:16 Dose: 1 each Montelukast Sodium (Montelukast Sodium 10 Mg Tablet) 10 mg PO [facility] Stop: 02/25/24 21:32 Last Admin: 01/27/24 21:03 Dose: 10 mg Multivitamins ([facility]ivitamin Tab) [facility]: 02/26/24 08:59 Last Admin: 01/28/24 09:00 Dose: 1 tab Nicotine (Nicotine 7 Mg/24 Hr Tdsy) 1 patch TD [facility] Stop: 02/25/24 21:32 Last Admin: 01/27/24 21:00 Dose: 1 patch Ondansetron HCl (Ondansetron Inj 2 Mg/Ml 2 Ml Vial) 4 mg IV Q6H PRN PRN Reason: Nausea Stop: 02/25/24 21:32 Last Admin: 01/28/24 09:03 Dose: 4 mg Thiamine HCl (Thiamine Hcl 100 Mg Tab) [facility] Stop: 02/26/24 08:59 Last Admin: 01/28/24 09:00 Dose: 100 mg Vitamin D (Cholecalciferol 25 Mcg (1000 Units) Tab) 50 mcg PO QAM [facility] Stop: 02/26/24 08:59 Last Admin: 01/28/24 08:59 Dose: 50 mcg
[2024-01-28] MEDS: DEXTROAMPHETAMINE/AMPHETAMIME IR 5 MG TAB PO SCH (14:11)
[2024-01-29] MEDS ORDERED: prednisoLONE sod phosphate 15 MG/5 ML PO SCH (09:00)
== END 2024-01-28 15:15 | disposition home or self-care (01) | DRG 432 ==
LOC: ED 14:41 → SUATTDRO 16:44 → EDINP 16:44 → 2E 21:34

== ENCOUNTER 2024-06-02 19:12 | Inpatient (IN) ==
[2024-06-02 20:11] LABS: Basophils # (auto) 0.03 K/uL (0.00-0.20); Basophils % (auto) 0.6 %; Eosinophils # (auto) 0.01 K/uL (0.00-0.50); Eosinophils % (auto) 0.2 %; Hematocrit (blood only) 27.7 % (37.0-47.0); Hemoglobin 9.7 g/dl (12.0-16.0); Immature Granulocytes # (auto) 0.04 K/uL (0.01-0.20); Immature Granulocytes % (auto) 0.8 %; Lymphocytes % (auto) 16.7 %; Mean Corpuscular Hemoglobin 30.5 pg (25.0-34.0); Mean Corpuscular Volume 87.1 fL (80.0-100.0); Mean Platelet Volume 12.1 fL (9.4-12.4); Monocytes # (auto) 0.41 K/uL (0.11-0.59); Monocytes % (auto) 8.6 %; Neutrophils % (auto) 73.1 %; Nucleated RBC # (auto) 0.02 K/uL (0.00-0.12); Nucleated RBC % (auto) 0.4 %; Platelet Count 45 K/uL (130-400); RDW Coefficient of Variation 12.9 % (11.5-14.5); RDW Standard Deviation 40.7 fL (36.4-46.3); Red Blood Count 3.18 M/uL (4.20-5.40); White Blood Count 4.79 K/ul (4.8-10.8)
[2024-06-02 20:36] LABS: Pregnancy Test, Serum Negative (Negative)
[2024-06-02 20:46] LABS: INR 1.3 (0.9-1.1); Prothrombin Time 14.1 Seconds (9.0-12.0)
[2024-06-02 20:50] LABS: Albumin Globulin Ratio 1.4 (0.9-2); Albumin Level 3.9 gm/dl (3.4-5.0); BUN Creatinine Ratio 4.4 (10-20); Bilirubin,Total 3.8 mg/dl (0.2-1.0); Calcium 8.3 mg/dl (8.6-10.3); Creatinine Clr Calc Pharmacy 67.7 ml/min; Est GFR (African American) 94.7 ml/min; Est GFR (Non-African American) 81.7 ml/min; Globulin 2.8 gm/dl (2.5-4.0); Potassium 2.5 mmol/L (3.5-5.1); Total Protein 6.7 gm/dl (6.0-8.3)
[2024-06-02] MEDS: SODIUM CHLORIDE 0.9% 1,000 ML IV ONE (21:01)
[2024-06-02] MEDS: POTASSIUM CHLORIDE / WTR 10 MEQ/100 ML PLCT IV SCH (21:02)
[2024-06-02] MEDS: ONDANSETRON INJ 2 MG/ML 2 ML VIAL IV STA (21:02)
--- NOTE | 2024-06-02 21:07 | Emergency Department Note ---
Impression & Plan Acute hypokalemia, Hypomagnesemia, Thrombocytopenia, Liver disease, Alcohol intoxication ED Provider Note Diagnosis: Intoxication, thrombocytopenia, hypokalemia, hypomagnesia Disposition: Admission CHIEF COMPLAINT: Nausea vomiting HPI: Patient 39-year-old female with stage IV liver disease presenting with nausea vomiting. Patient states she has been having symptoms for about 3 to 4 days time. Patient states no overt nausea medications are working. Patient states that due to her significant discomfort she relapsed and started drinking today. Patient had been sober since November. Patient states that she has not been able to keep down any of her lactulose. Patient denies any significant abdominal pain at this time. PAST MEDICAL HISTORY: See Below PAST SURGICAL HISTORY: See Below SOCIAL HISTORY: See Below HOME MEDICATIONS: See Below ALLERGIES: See Below VITALS: See Below PHYSICAL EXAMINATION: GENERAL: Well appearing, well nourished, NAD, non-toxic. EYE EXAM: Normal conjunctiva. OROPHARYNX: Moist mucus membranes. Grossly normal dentition. NECK: Supple, LUNGS: Clear to auscultation. Normal chest wall mechanics. HEART: NSR ABDOMEN: Abdomen soft, non-tender, normo-active bowel sounds, no masses, no rebound or guarding BACK: No CVA TTP. SKIN: No rashes and no bruising. UPPER EXTREMITIES: Upper extremities are grossly normal LOWER EXTREMITIES: Grossly normal, no edema. NEURO EXAM: A&O x3,, normal speech, moves all 4 extremities PSYCH: Cooperative MEDICAL DECISION MAKING: Reviewed external documents: History obtained from: Patient, mother ER Course: Patient is a 39-year-old female stage IV liver disease. Patient states she has been having nausea vomiting for past 4 days time. Patient not able to keep her medications down due to vomiting. Patient states she was feeling bad and started drinking alcohol and relapsed when she had been sober for over 6 months time. Patient had on blood work found to have significant hypokalemia and low magnesium level and both were ordered for repletion. Patient's alcohol level 350. Patient's abdomen soft nontender nondistended. Patient's lactate level was elevated but I believe this is due to her vomiting and her dehydration status. Will order procalcitonin and blood cultures for hospitalist team to follow-up but will not start antibiotics will defer to hospitalist team for further decision. Patient is found to have low platelets but no active bleeding at this time. Labs (independently interpreted) are significant for: Hypokalemia, hypomagnesia, thrombocytopenia Medications given: Normal saline, Zofran, potassium, Reglan, magnesium Consultants: Hospitalist service Triage Nursing notes reviewed and agree them. Vital Signs: reviewed and remarkable for: no significant abnormalities Past Med/Surg History Problem List (Updated 06/03/24 @ 01:04 by Yossi Russo MD) Intractable nausea and vomiting Pancytopenia Decompensated hepatic cirrhosis Weakness (Acute) Anemia (Acute) Cirrhosis of liver (Acute) Acute GI bleeding (Acute) Symptomatic anemia (Acute) Acute GI bleeding (Acute) Coagulopathy Shock circulatory Hematemesis Nausea & vomiting Alcoholic pancreatitis (Acute) 05/2021 treated at [facility] Abnormal CT of the abdomen Acute appendicitis with localized peritonitis Acute appendicitis (Acute) Lab test negative for COVID-19 virus (Acute) Abdominal pain Generalized anxiety disorder Alcohol use disorder Electrolyte abnormality Hyperbilirubinemia (Acute) Abdominal distention Hypokalemia Hypomagnesemia Hyponatremia Tobacco use Cirrhosis (Acute) Hyperbilirubinemia (Acute) Hypomagnesemia (Acute) Hypocalcemia (Acute) Encounter for pre-operative examination Closed rib fracture (Acute) Acute chest wall pain hx-"from a recent fall where she broke some ribs" Depression Asthma well controlled with inhalers Alcohol abuse (Acute) Anxiety ADD (attention deficit disorder) Medical History Decompensated hepatic cirrhosis History of COVID-19 early 2019, tested thru hospital at [place], hospitalized during covid; fatigue, body aches, decreased appetite>resolved. Hemoptysis "sometimes still has this" Acute chest wall pain hx-"from a recent fall where she broke some ribs" Fall 06/2022, fx ribs VAN (acute kidney injury) hx Portal hypertension Alcoholic cirrhosis with abn coags Anemia pre-op H&H 04/15/22: 05/15 History of pancreatitis alcoholic 05/2021 per records GERD (gastroesophageal reflux disease) Pneumonia February 2022 treated at [facility]. denies sob currently Thrombocytopenia Jaundice hx-"not very much now" Acute on chronic alcoholic liver disease "currently trying to get on the transplant list" Hypokalemia Acute hyponatremia Hypomagnesemia Hyperbilirubinemia Rectal bleeding "a little when she's constipated" Alcohol abuse with withdrawal Fatty liver Depression Alcoholic hepatitis Anxiety ADD (attention deficit disorder) Asthma well controlled with inhalers Alcohol abuse Surgical History Hx of colonoscopy History of vascular access device 04/2022, [facility] H/O wisdom tooth extraction History of esophagogastroduodenoscopy (EGD) History of abdominal paracentesis Family History Grandmother Breast cancer Grandfather Heart disease Other No family history of adverse response to anesthesia Social History Smoking Status: Current some day smoker Tobacco Type: Cigarettes Cigarettes Per Day: 1-2; Second Hand Exposure: No; Do You Dip or Chew Tobacco: No; Hx Alcohol Use: Yes Alcohol type: hard liquor Hx Substance Use: Yes Last Used Substance Other:: 2 months Preferred Language: Lao 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 Ability: Effective Chaplain Resident Required: No Beliefs That Will Affect Care: None marital status: Single Current Living Situation: Significant Other Current Living Situation Comment: Apartment current occupational status: employed How many Children do You have: 0 Feels Safe at Home: Yes Assistive Devices: None Allergies Allergies Allergy/AdvReac Type Severity Reaction Status Date / Time banana Allergy Intermediate RASH, Verified 06/02/24 22:41 THROAT SLIGHTLY SWOLLEN Penicillins Allergy Unknown HAPPENED Verified 06/02/24 22:41 A CHILD Home Meds Home Medications Medication Instructions Recorded Confirmed budesonide-formoterol HFA 160 2 puff inhalation BID 06/20/21 06/02/24 mcg-4.5 mcg/actuation aerosol inhaler (Symbicort) dextroamphetamine-amphetamine 5 mg 5 mg PO AMPM 06/20/21 06/02/24 tablet (Adderall) loratadine 10 mg tablet 10 mg PO QAM 06/20/21 06/02/24 montelukast 10 mg tablet 10 mg PO HS 06/20/21 06/02/24 fluticasone propionate 50 2 spray intranasal QAM PRN 10/03/21 06/02/24 mcg/actuation nasal allergies spray,suspension multivitamin 1 tab PO QAM 10/03/21 06/02/24 ascorbic acid (vitamin C) 500 mg 500 mg PO QAM 01/31/22 06/02/24 tablet (Vitamin C) cholecalciferol (vitamin D3) 50 50 mcg PO QAM 01/31/22 06/02/24 mcg (2,000 unit) capsule (Vitamin D3) magnesium oxide 400 mg (241.3 mg 400 mg PO BID 03/25/22 06/02/24 magnesium) tablet potassium chloride 20 mEq 20 meq PO QID 03/25/22 06/02/24 tablet,extended release diclofenac sodium 1 % topical gel 4 g topical TID PRN Pain 10/14/22 06/02/24 (Voltaren Arthritis Pain) metoclopramide HCl 10 mg tablet 10 mg PO AMHS PRN Nausea 01/07/23 06/02/24 folic acid 1 mg tablet 1 mg PO QAM 09/16/23 06/02/24 promethazine 12.5 mg tablet 12.5 mg PO Q6 PRN Nausea 09/16/23 06/02/24 lactulose 10 gram/15 mL oral 10 g PO QID 01/26/24 06/02/24 solution albuterol sulfate 90 mcg/actuation 2 puff inhalation Q4 PRN cough or 06/02/24 06/02/24 aerosol inhaler wheeze furosemide 40 mg tablet 40 mg PO DAILY 06/02/24 06/02/24 ondansetron HCl 4 mg tablet 4 mg PO Q8 PRN Nausea 06/02/24 06/02/24 rifaximin 550 mg tablet (Xifaxan) 550 mg PO AMHS 06/02/24 06/02/24 spironolactone 100 mg tablet 100 mg PO QAM 06/02/24 06/02/24 Previous Rx's Medication Instructions Recorded thiamine HCl (vitamin B1) 100 mg 100 mg PO QAM #30 tabs 03/23/22 tablet pantoprazole 40 mg tablet,delayed 40 mg PO BID #60 tabs 01/28/24 release (Protonix) Results & Data (ED) Vital Signs Vital Signs - 24 hr 06/02/24 19:15 06/02/24 19:39 06/02/24 19:50 Temperature 36.8 C Temperature Source Temporal Artery Scan Pulse Rate 119 H 107 H Pulse Rate [Apical] Pulse Rhythm [Apical] Pulse Strength [Apical] Respiratory Rate 18 Respiratory Effort / Characteristics Non-Labored Respiratory Depth Normal Respiratory Pattern Regular Blood Pressure 136/81 Blood Pressure [Left Arm] Blood Pressure Mean 99 Blood Pressure Mean [Left Arm] Blood Pressure Position Sitting Pulse Oximetry 98 97 Oxygen Delivery Method Room Air Room Air Sepsis Recent Fever Within 48 Hours No Sepsis New/Unexplained Change in Mental Status N/A Sepsis Action Taken by Nursing No Action Required 06/02/24 21:00 06/02/24 23:37 Temperature Temperature Source Pulse Rate 108 H Pulse Rate [Apical] 118 H Pulse Rhythm [Apical] Regular Pulse Strength [Apical] Normal Respiratory Rate 18 Respiratory Effort / Characteristics Non-Labored Respiratory Depth Normal Respiratory Pattern Blood Pressure Blood Pressure [Left Arm] 125/69 Blood Pressure Mean Blood Pressure Mean [Left Arm] 87 Blood Pressure Position Pulse Oximetry 96 Oxygen Delivery Method Room Air Sepsis Recent Fever Within 48 Hours Sepsis New/Unexplained Change in Mental Status Sepsis Action Taken by Nursing Laboratory Data 06/02/24 19:34 06/02/24 19:34 Lab Results 06/02/24 06/02/24 06/02/24 Range/Units 19:34 20:08 21:45 WBC 4.79 L (4.8-10.8) K/ul RBC 3.18 L (4.20-5.40) M/uL Hgb 9.7 L (12.0-16.0) g/dl Hct 27.7 L (37.0-47.0) % MCV 87.1 (80.0-100.0) fL MCH 30.5 (25.0-34.0) pg MCHC 35.0 (32.0-36.0) g/dL RDW Std Deviation 40.7 (36.4-46.3) fL RDW Coeff of Yasmine 12.9 (11.5-14.5) % Plt Count 45 L (130-400) K/uL MPV 12.1 (9.4-12.4) fL Immature Gran % (Auto) 0.8 % Neut % (Auto) 73.1 % Lymph % (Auto) 16.7 % [place] % (Auto) 8.6 % Eos % (Auto) 0.2 % Baso % (Auto) 0.6 % Neut # (Auto) 3.50 (1.40-6.50) K/uL Lymph # (Auto) 0.80 L (1.20-3.40) K/uL [place] # (Auto) 0.41 (0.11-0.59) K/uL Eos # (Auto) 0.01 (0.00-0.50) K/uL Baso # (Auto) 0.03 (0.00-0.20) K/uL Immature Gran # (Auto) 0.04 (0.01-0.20) K/uL Absolute Nucleated RBC 0.02 (0.00-0.12) K/uL Nucleated RBC % (auto) 0.4 % PT 14.1 H (9.0-12.0) Seconds INR 1.3 H (0.9-1.1) Sodium 134 L (136-145) mmol/L Potassium 2.5 L* (3.5-5.1) mmol/L Chloride 92 L (98-107) mmol/L Carbon Dioxide 25 (21-32) mmol/L Anion Gap 17 H (3-11) BUN 4 L (6-23) mg/dl Creatinine 0.90 (0.6-1.2) mg/dl Est Cr Clr Drug Dosing 67.7 ml/min Est GFR ( Amer) 94.7 ml/min Est GFR (Non-Af Amer) 81.7 ml/min BUN/Creatinine Ratio 4.4 L (10-20) Glucose 155 H (70-99(Fasting)) mg/dl Lactate 4.1 H* (0.4-2.0) mmol/L Calcium 8.3 L (8.6-10.3) mg/dl Magnesium 1.2 L (1.7-2.4) mg/dl Total Bilirubin 3.8 H (0.2-1.0) mg/dl AST 107 H (13-39) U/L ALT 36 (7-52) U/L Alkaline Phosphatase 257 H (34-104) U/L Ammonia 52.0 (18-72) umol/L Total Protein 6.7 (6.0-8.3) gm/dl Albumin 3.9 (3.4-5.0) gm/dl Globulin 2.8 (2.5-4.0) gm/dl Albumin/Globulin Ratio 1.4 (0.9-2) Lipase 32 (11-82) U/L Procalcitonin 0.08 (0-0.5) ng/ml HCG, Qual Negative (Negative) Urine Color Yellow Urine Appearance Clear (Clear) Urine pH 7.0 (4.5-7.5) Ur Specific [place] 1.006 (1.000-1.030) Urine Protein Negative (Negative) Urine Glucose (UA) Negative (Negative) Urine Ketones Negative (Negative) Urine Blood Negative (Negative) Urine Nitrite Negative (Negative) Urine Bilirubin Negative (Negative) Urine Urobilinogen Positive H (Negative) Ur Leukocyte Esterase 2+ H (Negative) Urine WBC (Auto) 11-20 H (0-5) /hpf Urine RBC (Auto) 0-2 (0-2) /hpf U Hyaline Cast (Auto) 0-2 (0-2) /lpf U Epithel Cells (Auto) 3-5 H (0-2) /hpf Urine Bacteria (Auto) 4+ H (None Seen) Ethyl Alcohol mg/dL 353.2 H (<10.0) mg/dl 06/02/24 Range/Units 22:48 WBC (4.8-10.8) K/ul RBC (4.20-5.40) M/uL Hgb (12.0-16.0) g/dl Hct (37.0-47.0) % MCV (80.0-100.0) fL MCH (25.0-34.0) pg MCHC (32.0-36.0) g/dL RDW Std Deviation (36.4-46.3) fL RDW Coeff of Yasmine (11.5-14.5) % Plt Count (130-400) K/uL MPV (9.4-12.4) fL Immature Gran % (Auto) % Neut % (Auto) % Lymph % (Auto) % [place] % (Auto) % Eos % (Auto) % Baso % (Auto) % Neut # (Auto) (1.40-6.50) K/uL Lymph # (Auto) (1.20-3.40) K/uL [place] # (Auto) (0.11-0.59) K/uL Eos # (Auto) (0.00-0.50) K/uL Baso # (Auto) (0.00-0.20) K/uL Immature Gran # (Auto) (0.01-0.20) K/uL Absolute Nucleated RBC (0.00-0.12) K/uL Nucleated RBC % (auto) % PT (9.0-12.0) Seconds INR (0.9-1.1) Sodium (136-145) mmol/L Potassium (3.5-5.1) mmol/L Chloride (98-107) mmol/L Carbon Dioxide (21-32) mmol/L Anion Gap (3-11) BUN (6-23) mg/dl Creatinine (0.6-1.2) mg/dl Est Cr Clr Drug Dosing ml/min Est GFR ( Amer) ml/min Est GFR (Non-Af Amer) ml/min BUN/Creatinine Ratio (10-20) Glucose (70-99(Fasting)) mg/dl Lactate 4.4 H* (0.4-2.0) mmol/L Calcium (8.6-10.3) mg/dl Magnesium (1.7-2.4) mg/dl Total Bilirubin (0.2-1.0) mg/dl AST (13-39) U/L ALT (7-52) U/L Alkaline Phosphatase (34-104) U/L Ammonia (18-72) umol/L Total Protein (6.0-8.3) gm/dl Albumin (3.4-5.0) gm/dl Globulin (2.5-4.0) gm/dl Albumin/Globulin Ratio (0.9-2) Lipase (11-82) U/L Procalcitonin (0-0.5) ng/ml HCG, Qual (Negative) Urine Color Urine Appearance (Clear) Urine pH (4.5-7.5) Ur Specific [place] (1.000-1.030) Urine Protein (Negative) Urine Glucose (UA) (Negative) Urine Ketones (Negative) Urine Blood (Negative) Urine Nitrite (Negative) Urine Bilirubin (Negative) Urine Urobilinogen (Negative) Ur Leukocyte Esterase (Negative) Urine WBC (Auto) (0-5) /hpf Urine RBC (Auto) (0-2) /hpf U Hyaline Cast (Auto) (0-2) /lpf U Epithel Cells (Auto) (0-2) /hpf Urine Bacteria (Auto) (None Seen) Ethyl Alcohol mg/dL (<10.0) mg/dl Administered Medications Discontinued Medications Sodium Chloride (Nss) 1,000 mls @ 999 mls/hr IV .Q1H1M ONE Stop: 06/02/24 21:53 Last Infusion: 06/02/24 22:45 Dose: Infused Documented By: Admin: 06/02/24 21:01 Dose: 999 mls/hr Documented By: DOMINICK Potassium Chloride (K Rivera / Wtr) 10 meq in 100 mls @ 100 mls/hr IV Q1H JUAN Stop: 06/03/24 00:59 Last Admin: 06/03/24 00:05 Dose: 100 mls/hr Documented By: Infusion: 06/03/24 00:03 Dose: Infused Documented By: Admin: 06/02/24 23:03 Dose: 100 mls/hr Documented By: Infusion: 06/02/24 23:02 Dose: Infused Documented By: Admin: 06/02/24 22:02 Dose: 100 mls/hr Documented By: Infusion: 06/02/24 22:02 Dose: Infused Documented By: Admin: 06/02/24 21:02 Dose: 100 mls/hr Documented By: DOMINICK Magnesium Sulfate/Dextrose (Magnesium Sulfate / D5w) 1 gm in 100 mls @ 200 mls/hr IV Q30M JUAN Stop: 06/02/24 23:13 Last Infusion: 06/02/24 23:40 Dose: Infused Documented By: Admin: 06/02/24 23:03 Dose: 200 mls/hr Documented By: Infusion: 06/02/24 23:03 Dose: Infused Documented By: Admin: 06/02/24 22:36 Dose: 200 mls/hr Documented By: DOMINICK Aztreonam 2,000 mg/ Dextrose 100 mls @ 100 mls/hr IV NOW STA Stop: 06/03/24 00:30 Last Admin: 06/03/24 00:27 Dose: 100 mls/hr Documented By: DOMINICK Metoclopramide HCl (Metoclopramide Hcl Inj 5 Mg/Ml 2 Ml Vial) 10 mg IV NOW STA Stop: 06/02/24 21:57 Last Admin: 06/02/24 22:02 Dose: 10 mg Documented By: DOMINICK Ondansetron HCl (Ondansetron Inj 2 Mg/Ml 2 Ml Vial) 4 mg IV NOW STA Stop: 06/02/24 20:54 Last Admin: 06/02/24 21:02 Dose: 4 mg Documented By: DOMINICK Discharge Plan Visit Data Chief Complaint: Vomiting Stated Complaint: BLOOD LEVELS ALL OFF, OX DOWN, VOMIT ED Provider: Jayme Ortiz Discharge Problem: Acute hypokalemia, Hypomagnesemia, Thrombocytopenia, Liver disease, Alcohol intoxication Forms Stand Alone Forms: My [facility] Prescriptions Prescriptions: No Action montelukast 10 mg Tablet 10 mg PO HS dextroamphetamine-amphetamine [Adderall] 5 mg Tablet 5 mg PO AMPM Rx Instructions: am and 4p.m. loratadine 10 mg Tablet 10 mg PO QAM budesonide-formoterol [Symbicort] 160-4.5 mcg/actuation Hfa Aerosol Inhaler 2 puff INHALATION BID multivitamin Tablet 1 tab PO QAM fluticasone propionate 50 mcg/actuation [place],Suspension 2 spray INTRANASAL QAM PRN (Reason: allergies) ascorbic acid (vitamin C) [Vitamin C] 500 mg Tablet 500 mg PO QAM cholecalciferol (vitamin D3) [Vitamin D3] 50 mcg (2,000 unit) Capsule 50 mcg PO QAM magnesium oxide 400 mg (241.3 mg magnesium) tablet 400 mg PO BID Rx Instructions: take 2 hours before or after Phospha 250 neutral. potassium chloride 20 mEq tablet extended release 20 meq PO QID metoclopramide HCl 10 mg Tablet 10 mg PO AMHS PRN (Reason: Nausea) Rx Instructions: administer 30 minutes before meals promethazine 12.5 mg tablet 12.5 mg PO Q6 PRN (Reason: Nausea) folic acid 1 mg tablet 1 mg PO QAM thiamine HCl (vitamin B1) 100 mg Tablet 100 mg PO QAM Qty: 30 0RF diclofenac sodium [Voltaren Arthritis Pain] 1 % gel 4 g topical TID PRN (Reason: Pain) lactulose 10 gram/15 mL solution 10 g PO QID pantoprazole [Protonix] 40 mg tablet,delayed release (DR/EC) 40 mg PO BID Qty: 60 0RF ondansetron HCl 4 mg tablet 4 mg PO Q8 PRN (Reason: Nausea) furosemide 40 mg tablet 40 mg PO DAILY spironolactone 100 mg tablet 100 mg PO QAM Xifaxan 550 mg tablet 550 mg PO AMHS albuterol sulfate 90 mcg/actuation HFA aerosol inhaler 2 puff INHALATION Q4 PRN (Reason: cough or wheeze) Referrals Referrals: Zaina Bunch MD [Primary Care Provider] -
[2024-06-02 21:56] LABS: Magnesium 1.2 mg/dl (1.7-2.4)
[2024-06-02] MEDS: METOCLOPRAMIDE HCL INJ 5 MG/ML 2 ML VIAL IV STA (22:02)
[2024-06-02 22:29] LABS: Appearance Urine Clear (Clear); Bacteria Urine Automated 4+ (None Seen); Bilirubin Urine Negative (Negative); Blood Urine Negative (Negative); Cast Urine Automated 0-2 /lpf (0-2); Color Urine Yellow; Glucose Urine UA Negative (Negative); Ketones Urine Negative (Negative); Leukocyte Esterase Urine 2+ (Negative); Nitrite Urine Negative (Negative); Protein Urine Negative (Negative); RBC Urine Automated 0-2 /hpf (0-2); Specific Gravity Urine 1.006 (1.000-1.030); Urobilinogen Urine Positive (Negative)
[2024-06-02] MEDS: MAGNESIUM SULFATE / D5W 1 GM/100 ML BAG IV SCH (22:36)
[2024-06-02] MEDS ORDERED: CIPROFLOXACIN / D5W 400 MG/200 ML BAG IV SCH (23:30)
[2024-06-03] MEDS: AZTREONAM 2,000 MG in DEXTROSE 5% MINI-B 100 ML IV STA (00:27)
--- NOTE | 2024-06-03 01:09 | History & Physical Report ---
Date of Service June 03, 2024 Assessment & Plan (1) Intractable nausea and vomiting: Plan: 39-year-old female with past medical history significant for alcoholic cirrhosis of liver, portal hypertension, history of TIPS in August 2023 and revision in October 2023, esophageal varices, pancytopenia, alcoholism, ADHD, GERSON, depression, s/p a port comes because of persistent nausea and vomiting going on since last 1 week. Patient states since last 1 week she cannot eat anything because of nausea. She did move her bowels last 1 week. Has feeling of hot and cold. Denies any chest pain or shortness of breath. States there is no blood in the vomiting. Denies any recent blood in the stools. She states she has occasional nosebleeds and also bleeding from her gums. Denies any headache. Vision is okay. No fevers. Hemodynamics are okay. Patient states since he was discharged in January of this year she did not drink alcohol except once last week and once today. Intractable nausea and vomiting Going on for the last 1 week Will get KUB IV fluids IV antiemetics GI consult in a.m. for further recommendations Hypokalemia Potassium 2.5 Mostly from nausea vomiting and alcoholism Will replace and follow labs Alcoholism Alcohol level 353 Will do alcohol withdrawal protocol with gabapentin and IV Ativan as needed Banana bag Continue home p.o. thiamine and folic acid UTI Possibly contributing her symptoms IV Azactam .Patient is allergic to penicillin Will follow the cultures Elevated lactic acid Most from liver cirrhosis and dehydration Will follow repeat levels History of alcoholic liver cirrhosis Total bilirubin 3.8, improved from last admission when total bilirubin was 29 S/p TIPS procedure continue lactulose and Xifaxan Will hold Lasix and spironolactone. But will continue p.o. potassium supplements as patient is currently hypokalemic Getting fluids Monitor for volume overload History of asthma Continue home inhalers History of ADHD GERSON Depression Continue home medications Pancytopenia WBC 4.7, hemoglobin 9.7 and platelets 45 Mostly from alcohol liver cirrhosis Follow labs DVT prophylaxis SCDs Disposition Telemetry Full code History of Present Illness Chief Complaint: Persistent nausea and vomiting, hypokalemia and alcoholism Primary Care Provider: Zaina Bunch MD 39-year-old female with past medical history significant for alcoholic cirrhosis of liver, portal hypertension, history of TIPS in August 2023 and revision in October 2023, esophageal varices, pancytopenia, alcoholism, ADHD, GERSON, depression, s/p a port comes because of persistent nausea and vomiting going on since last 1 week. Patient states since last 1 week she cannot eat anything because of nausea. She did move her bowels last 1 week. Has feeling of hot and cold. Denies any chest pain or shortness of breath. States there is no blood in the vomiting. Denies any recent blood in the stools. She states she has occasional nosebleeds and also bleeding from her gums. Denies any headache. Vision is okay. No fevers. Hemodynamics are okay. Patient states since she was discharged in January of this year she did not drink alcohol except once last week and once today. Past medical history. As mentioned above Past surgical history. Colonoscopy and EGD. TIPS procedure Social history. Quit smoking 2021 is smoked 0.5 pack a day for 10 years. History of alcohol abuse. Smokes marijuana once a week. Family history. Maternal grandmother had bone and breast cancer and melanoma. Paternal grandfather had heart attack. Lung cancer. Prostate cancer. Brother has irritable bowel syndrome. Paternal grandmother had pacemaker. Allergies Allergy/AdvReac Type Severity Reaction Status Date / Time banana Allergy Intermediate RASH, Verified 06/02/24 22:41 THROAT SLIGHTLY SWOLLEN Penicillins Allergy Unknown HAPPENED Verified 06/02/24 22:41 A CHILD Home Medications Medication Instructions Recorded Confirmed Type budesonide-formoterol HFA 160 2 puff inhalation BID 06/20/21 06/02/24 History mcg-4.5 mcg/actuation aerosol inhaler (Symbicort) dextroamphetamine-amphetamine 5 mg 5 mg PO AMPM 06/20/21 06/02/24 History tablet (Adderall) loratadine 10 mg tablet 10 mg PO QAM 06/20/21 06/02/24 History montelukast 10 mg tablet 10 mg PO HS 06/20/21 06/02/24 History fluticasone propionate 50 2 spray intranasal QAM PRN 10/03/21 06/02/24 History mcg/actuation nasal allergies spray,suspension multivitamin 1 tab PO QAM 10/03/21 06/02/24 History ascorbic acid (vitamin C) 500 mg 500 mg PO QAM 01/31/22 06/02/24 History tablet (Vitamin C) cholecalciferol (vitamin D3) 50 50 mcg PO QAM 01/31/22 06/02/24 History mcg (2,000 unit) capsule (Vitamin D3) thiamine HCl (vitamin B1) 100 mg 100 mg PO QAM #30 tabs 03/23/22 06/02/24 Rx tablet magnesium oxide 400 mg (241.3 mg 400 mg PO BID 03/25/22 06/02/24 History magnesium) tablet potassium chloride 20 mEq 20 meq PO QID 03/25/22 06/02/24 History tablet,extended release diclofenac sodium 1 % topical gel 4 g topical TID PRN Pain 10/14/22 06/02/24 History (Voltaren Arthritis Pain) metoclopramide HCl 10 mg tablet 10 mg PO AMHS PRN Nausea 01/07/23 06/02/24 History folic acid 1 mg tablet 1 mg PO QAM 09/16/23 06/02/24 History promethazine 12.5 mg tablet 12.5 mg PO Q6 PRN Nausea 09/16/23 06/02/24 History lactulose 10 gram/15 mL oral 10 g PO QID 01/26/24 06/02/24 History solution pantoprazole 40 mg tablet,delayed 40 mg PO BID #60 tabs 01/28/24 06/02/24 Rx release (Protonix) albuterol sulfate 90 mcg/actuation 2 puff inhalation Q4 PRN cough or 06/02/24 06/02/24 History aerosol inhaler wheeze furosemide 40 mg tablet 40 mg PO DAILY 06/02/24 06/02/24 History ondansetron HCl 4 mg tablet 4 mg PO Q8 PRN Nausea 06/02/24 06/02/24 History rifaximin 550 mg tablet (Xifaxan) 550 mg PO AMHS 06/02/24 06/02/24 History spironolactone 100 mg tablet 100 mg PO QAM 06/02/24 06/02/24 History Past Med/Surg History Problem List (Updated 06/03/24 @ 01:04 by Yossi Russo MD) Intractable nausea and vomiting Pancytopenia Decompensated hepatic cirrhosis Weakness (Acute) Anemia (Acute) Cirrhosis of liver (Acute) Acute GI bleeding (Acute) Symptomatic anemia (Acute) Acute GI bleeding (Acute) Coagulopathy Shock circulatory Hematemesis Nausea & vomiting Alcoholic pancreatitis (Acute) 05/2021 treated at [facility] Abnormal CT of the abdomen Acute appendicitis with localized peritonitis Acute appendicitis (Acute) Lab test negative for COVID-19 virus (Acute) Abdominal pain Generalized anxiety disorder Alcohol use disorder Electrolyte abnormality Hyperbilirubinemia (Acute) Abdominal distention Hypokalemia Hypomagnesemia Hyponatremia Tobacco use Cirrhosis (Acute) Hyperbilirubinemia (Acute) Hypomagnesemia (Acute) Hypocalcemia (Acute) Encounter for pre-operative examination Closed rib fracture (Acute) Acute chest wall pain hx-"from a recent fall where she broke some ribs" Depression Asthma well controlled with inhalers Alcohol abuse (Acute) Anxiety ADD (attention deficit disorder) Medical History Decompensated hepatic cirrhosis History of COVID-19 early 2019, tested thru hospital at [place], hospitalized during covid; fat igue, body aches, decreased appetite>resolved. Hemoptysis "sometimes still has this" Acute chest wall pain hx-"from a recent fall where she broke some ribs" Fall 06/2022, fx ribs VAN (acute kidney injury) hx Portal hypertension Alcoholic cirrhosis with abn coags Anemia pre-op H&H 04/15/22: 05/15 History of pancreatitis alcoholic 05/2021 per records GERD (gastroesophageal reflux disease) Pneumonia February 2022 treated at [facility]. denies sob currently Thrombocytopenia Jaundice hx-"not very much now" Acute on chronic alcoholic liver disease "currently trying to get on the transplant list" Hypokalemia Acute hyponatremia Hypomagnesemia Hyperbilirubinemia Rectal bleeding "a little when she's constipated" Alcohol abuse with withdrawal Fatty liver Depression Alcoholic hepatitis Anxiety ADD (attention deficit disorder) Asthma well controlled with inhalers Alcohol abuse Surgical History Hx of colonoscopy History of vascular access device 04/2022, [facility] H/O wisdom tooth extraction History of esophagogastroduodenoscopy (EGD) History of abdominal paracentesis Family History Grandmother Breast cancer Grandfather Heart disease Other No family history of adverse response to anesthesia Social History Smoking Status: Current some day smoker Tobacco Type: Cigarettes Cigarettes Per Day: 1-2; Second Hand Exposure: No; Do You Dip or Chew Tobacco: No; Hx Alcohol Use: Yes Alcohol type: hard liquor Hx Substance Use: Yes Last Used Substance: Unknown Last Used Substance Other:: 2 months Preferred Language: Indonesian 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 Ability: Effective [employer] Required: No Beliefs That Will Affect Care: None marital status: Single Current Living Situation: Significant Other Current Living Situation Comment: Apartment current occupational status: employed How many Children do You have: 0 Feels Safe at Home: Yes Safety Concerns: Feels Safe At This Time Assistive Devices: Glasses Review of Systems Review of Systems: All systems reviewed & are unremarkable except as noted in HPI & below Physical Exam Physical Exam: General- Not in distress Head- atraumatic Eyes- PERRL, ENT- oropharynx clear Neck- supple, no JVD, Lungs- clear to auscultation no wheezing or crackles Heart- regular rate and rhythm; no murmur, no gallop. Abdomen- normal bowel sounds, soft, nontender, no distension Extremities- no pretibial edema, no erythema seen. Neuro- alert, oriented PERRL, no facial palsy; no dysarthria; moves extremities Results & Data Results & Data Vital Signs (Past 12 Hours) Vital Signs Temp Pulse Pulse Resp BP BP Pulse Ox 06/02/24 23:37 108 H 06/02/24 21:00 118 H 18 125/69 96 06/02/24 19:50 97 06/02/24 19:39 107 H 06/02/24 19:15 36.8 C 119 H 18 136/81 98 O2 Del Method 06/02/24 23:37 06/02/24 21:00 Room Air 06/02/24 19:50 Room Air 06/02/24 19:39 06/02/24 19:15 Room Air Diagnostic Findings Laboratory Results WBC 4.79 K/ul (4.8-10.8) L 06/02/24 19:34 RBC 3.18 M/uL (4.20-5.40) L 06/02/24 19:34 Hgb 9.7 g/dl (12.0-16.0) L 06/02/24 19:34 Hct 27.7 % (37.0-47.0) L 06/02/24 19:34 MCV 87.1 fL (80.0-100.0) 06/02/24 19: MCH 30.5 pg (25.0-34.0) 06/02/24: MCHC 35.0 g/dL (32.0-36.0) 06/02/24: RDW Std Deviation 40.7 fL (36.4-46.3) 06/02/24: RDW Coeff of Yasmine 12.9 % (11.5-14.5) 06/02/24: Plt Count 45 K/uL (130-400) L 06/02/24 19:34 MPV 12.1 fL (9.4-12.4) 06/02/24: Immature Gran % (Auto) 0.8 % 06/02/24: Neut % (Auto) 73.1 % 06/02/24 19:34 Lymph % (Auto) 16.7 % 06/02/24:34 [place] % (Auto) 8.6 % 06/02/24:34 Eos % (Auto) 0.2 % 06/02/24:34 Baso % (Auto) 0.6 % 06/02/24:34 Neut # (Auto) 3.50 K/uL (1.40-6.50) 06/02/24 19:34 Lymph # (Auto) 0.80 K/uL (1.20-3.40) L 06/02/24:34 [place] # (Auto) 0.41 K/uL (0.11-0.59) 06/02/24: Eos # (Auto) 0.01 K/uL (0.00-0.50) 06/02/24:34 Baso # (Auto) 0.03 K/uL (0.00-0.20) 06/02/24: Immature Gran # (Auto) 0.04 K/uL (0.01-0.20) 06/02/24:34 Absolute Nucleated RBC 0.02 K/uL (0.00-0.12) 06/02/24:34 Nucleated RBC % (auto) 0.4 % 06/02/24: PT 14.1 Seconds (9.0-12.0) H 06/02/24:34 INR 1.3 (0.9-1.1) H 06/02/24 19:34 Sodium 134 mmol/L (136-145) L 06/02/24 19:34 Potassium 2.5 mmol/L (3.5-5.1) L* 06/02/24 19:34 Chloride 92 mmol/L (98-107) L 06/02/24 19:34 Carbon Dioxide 25 mmol/L (21-32) 06/02/24 19:34 Anion Gap 17 (3-11) H 06/02/24 19:34 BUN 4 mg/dl (6-23) L 06/02/24 19:34 Creatinine 0.90 mg/dl (0.6-1.2) 06/02/24 19:34 Est Cr Clr Drug Dosing 67.7 ml/min 06/02/24 19:34 Est GFR ( Amer) 94.7 ml/min 06/02/24 19:34 Est GFR (Non-Af Amer) 81.7 ml/min 06/02/24 19:34 BUN/Creatinine Ratio 4.4 (10-20) L 06/02/24 19:34 Glucose 155 mg/dl (70-99(Fasting)) H 06/02/24 19:34 Lactate 4.4 mmol/L (0.4-2.0) H* 06/02/24 22:48 Calcium 8.3 mg/dl (8.6-10.3) L 06/02/24 19:34 Magnesium 1.2 mg/dl (1.7-2.4) L 06/02/24 19:34 Total Bilirubin 3.8 mg/dl (0.2-1.0) H 06/02/24 19:34 AST 107 U/L (13-39) H 06/02/24 19:34 ALT 36 U/L (7-52) 06/02/24 19:34 Alkaline Phosphatase 257 U/L (34-104) H 06/02/24 19:34 Ammonia 52.0 umol/L (18-72) 06/02/24 20:08 Total Protein 6.7 gm/dl (6.0-8.3) 06/02/24 19:34 Albumin 3.9 gm/dl (3.4-5.0) 06/02/24 19:34 Globulin 2.8 gm/dl (2.5-4.0) 06/02/24 19:34 Albumin/Globulin Ratio 1.4 (0.9-2) 06/02/24 19:34 Lipase 32 U/L (11-82) 06/02/24 19:34 Procalcitonin 0.08 ng/ml (0-0.5) 06/02/24 19:34 HCG, Qual Negative (Negative) 06/02/24 19:34 Urine Color Yellow 06/02/24 21:45 Urine Appearance Clear (Clear) 06/02/24 21:45 Urine pH 7.0 (4.5-7.5) 06/02/24 21:45 Ur Specific [place] 1.006 (1.000-1.030) 06/02/24 21:45 Urine Protein Negative (Negative) 06/02/24 21:45 Urine Glucose (UA) Negative (Negative) 06/02/24 21:45 Urine Ketones Negative (Negative) 06/02/24 21:45 Urine Blood Negative (Negative) 06/02/24 21:45 Urine Nitrite Negative (Negative) 06/02/24 21:45 Urine Bilirubin Negative (Negative) 06/02/24 21:45 Urine Urobilinogen Positive (Negative) H 06/02/24 21:45 Ur Leukocyte Esterase 2+ (Negative) H 06/02/24 21:45 Urine WBC (Auto) 11-20 /hpf (0-5) H 06/02/24 21:45 Urine RBC (Auto) 0-2 /hpf (0-2) 06/02/24 21:45 U Hyaline Cast (Auto) 0-2 /lpf (0-2) 06/02/24 21:45 U Epithel Cells (Auto) 3-5 /hpf (0-2) H 06/02/24 21:45 Urine Bacteria (Auto) 4+ (None Seen) H 06/02/24 21:45 Ethyl Alcohol mg/dL 353.2 mg/dl (<10.0) H 06/02/24 19:34 Code Status & VTE Plan VTE Prophylaxis Plan VTE Prophylaxis will be ordered: Yes
[2024-06-03] MEDS ORDERED: ALBUTEROL HFA 8 GM INHALER INH PRN (01:17)
[2024-06-03] MEDS ORDERED: NITROGLYCERIN SL 0.4 MG/TAB TAB SL PRN (01:17)
[2024-06-03] MEDS ORDERED: DICLOFENAC SOD 1% GEL 100 GM TUBE EXT PRN (01:17)
[2024-06-03] MEDS ORDERED: Ativan IV Alcohol Withdrawal--Active Protocol IV PRN (01:17)
[2024-06-03] MEDS ORDERED: ONDANSETRON INJ 2 MG/ML 2 ML VIAL IV PRN (01:17)
[2024-06-03] MEDS ORDERED: FLUTICASONE PROPIONATE NA SPR 16 GM BTL PRN (01:17)
[2024-06-03] MEDS ORDERED: LORazepam 2 MG/1 ML VIAL IV PRN ×2 (01:17)
[2024-06-03] MEDS ORDERED: GABAPENTIN 1200MG ALCOHOL WITHDRAWAL LOAD PO STA (01:17)
[2024-06-03] MEDS: GABAPENTIN 600 MG TAB PO ONE (02:01)
[2024-06-03] MEDS: POTASSIUM CHLORIDE / WTR 10 MEQ/100 ML PLCT IV SCH ×2 (03:17→07:26)
[2024-06-03] MEDS: MULTI-VITAMIN INFUSION 10 ML, THIAMINE HCL 100 MG, FOLIC ACID 1 MG in SODIUM CHLORIDE 0... IV ONE (03:20)
[2024-06-03] MEDS: MAGNESIUM SULFATE / D5W 1 GM/100 ML BAG IV SCH (03:23)
[2024-06-03 05:11] LABS: Albumin Level 3.3 gm/dl (3.4-5.0); BUN Creatinine Ratio 4.9 (10-20); Bilirubin Direct 1.4 mg/dl (0-0.2); Bilirubin,Total 2.9 mg/dl (0.2-1.0); Calcium 7.3 mg/dl (8.6-10.3); Creatinine Clr Calc Pharmacy 75.2 ml/min; Est GFR (African American) 107.5 ml/min; Est GFR (Non-African American) 92.8 ml/min; Magnesium 1.9 mg/dl (1.7-2.4); Potassium 2.9 mmol/L (3.5-5.1); Total Protein 5.6 gm/dl (6.0-8.3)
[2024-06-03 05:41] LABS: Hematocrit (blood only) 26.8 % (37.0-47.0); Hemoglobin 9.5 g/dl (12.0-16.0); Mean Corpuscular Hemoglobin 30.7 pg (25.0-34.0); Mean Corpuscular Hgb Conc 35.4 g/dL (32.0-36.0); Mean Corpuscular Volume 86.7 fL (80.0-100.0); Mean Platelet Volume 10.8 fL (9.4-12.4); Platelet Count 27 K/uL (130-400); RDW Coefficient of Variation 13.1 % (11.5-14.5); RDW Standard Deviation 40.8 fL (36.4-46.3); Red Blood Count 3.09 M/uL (4.20-5.40)
[2024-06-03 06:00] LABS: Basophils # (auto) 0.02 K/uL (0.00-0.20); Basophils % (auto) 0.9 %; Eosinophils # (auto) 0.03 K/uL (0.00-0.50); Eosinophils % (auto) 1.3 %; Immature Granulocytes # (auto) 0.02 K/uL (0.01-0.20); Immature Granulocytes % (auto) 0.9 %; Lymphocytes % (auto) 26.1 %; Monocytes # (auto) 0.23 K/uL (0.11-0.59); Neutrophils % (auto) 60.8 %; Platelet Estimate Signific. Decreased (Normal)
[2024-06-03] MEDS ORDERED: PROMETHAZINE 12.5 MG/50.5 ML BAG IV PRN (06:43)
--- NOTE | 2024-06-03 07:20 | XRay Report ---
XR chest 1V portable CLINICAL HISTORY: elevated lactate COMPARISON STUDY: Chest CT June 30, 2022. Chest radiograph January 26, 2024. FINDINGS: Right internal jugular [id number] is in place. Lung volumes are normal. Lungs are clear. There is no pneumothorax or pleural effusion. Cardiac size is normal. Mediastinal contours are logan l. There is no evidence for pulmonary edema. IMPRESSION: No acute cardiopulmonary findings. ACT 112: Negative or not required by law. Electronically signed by: Luis Zarate M.D. 06/03/2024 7:18 AM
[2024-06-03] MEDS: D5NSS + 20MEQ KCL 20 MEQ/1,000 ML BAG IV SCH (07:25)
[2024-06-03 07:32] VITALS: RESP 18; TEMP 98.6
[2024-06-03] MEDS: THIAMINE HCL 100 MG TAB PO SCH (08:15)
[2024-06-03] MEDS: FOLIC ACID 1 MG TAB PO SCH (08:16)
[2024-06-03] MEDS: rifAXIMin 550 MG TABLET PO SCH (08:16)
[2024-06-03] MEDS: PANTOprazole 40 MG TAB PO SCH (08:16)
[2024-06-03] MEDS: LORATADINE 10 MG TAB PO SCH (08:16)
[2024-06-03] MEDS: GABAPENTIN 600 MG TAB PO SCH (08:16)
[2024-06-03] MEDS: MAGNESIUM OXIDE 400 MG TAB PO SCH (08:16)
[2024-06-03] MEDS: MULTIVITAMIN TAB PO SCH (08:16)
[2024-06-03] MEDS: CHOLECALCIFEROL 25 MCG (1000 UNITS) TAB PO SCH (08:16)
[2024-06-03] MEDS: ASCORBIC ACID 500 MG TAB PO SCH (08:16)
[2024-06-03] MEDS: LACTULOSE SYRUP 10 GM/15 ML BTL 960 ML PO SCH (08:17)
[2024-06-03] MEDS: FLUTICASONE/VILANTEROL 200/25MCG 14 PUFFS/INHALER INH SCH (08:17)
[2024-06-03] MEDS: DEXTROAMPHETAMINE/AMPHETAMIME IR 5 MG TAB PO SCH (08:21)
[2024-06-03] MEDS: POTASSIUM CHLORIDE 20 MEQ/15 ML UDC PO STA (08:28)
[2024-06-03] MEDS: POTASSIUM CHLORIDE CRTAB 20 MEQ TABCR PO SCH (08:29)
[2024-06-03] MEDS: LORazepam 2 MG/1 ML VIAL IV PRN (08:38)
[2024-06-03] MEDS: AZTREONAM 2,000 MG in DEXTROSE 5% MINI-B 100 ML IV SCH (09:37)
--- NOTE | 2024-06-03 09:46 | XRay Report ---
XR KUB/Abdomen 1 view CLINICAL HISTORY: n/v TECHNIQUE: 1 view of the abdomen was obtained. Comparison: Comparison is made to abdomen radiograph 01/26/2024 FINDINGS: TIPS catheter is seen. Degenerative changes are seen in the visualized skeleton. The bowel gas patter n is nonobstructive. Small stool burden is seen. IMPRESSION: Nonobstructive bowel gas pattern. ACT 112: Negative or not required by law. Electronically signed by: Carlos Sullivan M.D. 06/03/2024 9:45 AM
--- NOTE | 2024-06-03 10:58 | Gastrointestinal Consultation ---
Date of Consultation June 03, 2024 Assessment & Plan (1) Intractable nausea and vomitin39 year old female with history of decompensated ETOH cirrhosis MELD 13with portal HTN s/p TIPS with revision, varices, and portal gastropathy admitted through the ED for evaluation of nausea/vomiting without report of black or bloody emesis. She does report chronic intermittent bleeding from her gums. Nausea/vomiting in the setting of ETOH abuse - Improved, tolerating liquid diet - KUB without ileus or obstruction - ETOH avoidance again discussed - ETOH withdrawal protocol - Last use was on 06/02/24 - Scheduled antiemetics - May advance diet to low sodium as tolerated Electrolytes abnormalities - Appreciate management per primary team Oral cavity bleeding - Suspect this is related to the platelet dysfunction - Management per primary team Cirrhosis management - Continued care directed by transplant team at [facility] - Continue home dose lactulose, xifaxan - Continue home dose lasix/aldactone - MELD labs every 6 months - ABD imaging w/ AFP every 6 months - EGD every 1-2 years - No ETOH - No NSAIDs - Avoid hepatotoxin - Low NA diet, less than 2G daily - Less than 2G acetaminophen containing products daily Thank you for allowing us to participate in the care of this patient. Please call with any acute changes, questions or concerns. Please see addendum below with additional recommendation from my supervising physician. I spent a total of 60 minutes on the date of service in review of patient's record, and previously obtained information in person and appropriate medical visit, discussion and education of plan, with patient and/or caregiver, placing orders for tests/referral/procedures as medically necessary and documentation of pertinent clinical information in patient's medical records for their visit today. Supervising Physician Co-Signing Physician Notes Patient seen and examined. Case discussed with Melanie OVERTON. Patient had recurrence of ETOH abuse on top of chronic ETOH liver disease. Now with UTI. She has decompensated cirrhosis with portal hypertension with TIPS and previous ascites. She should again abstain from ETOH and get back into OP rehab and f/u with her private social insurance adviser. Agree with observing for ETOH withdrawal. IP GI Service will sign off. History of Present Illness Reason for Consultation: nausea Requesting Physician: Syd Crockett DO Attending Physician: Syd Crockett DO History of Present Illness 39 year old female followed by [facility] hepatology w/ decompensated ETOH cirrhosis with portal HTN s/p TIPS with revision, varices, and portal gastropathy admitted through the ED for evaluation of nausea/vomiting. Suggests ongoing and increased ETOH intake over the last week or so. Suggests last week she consumed 30 mini shot bottles of liquor. This was estimated to take place over a day. Suggests she developed discomfort nausea/vomiting and food aversion. Had ETOH again yesterday about 5/6 liquor shooters. Sought ED care. On my arrival to the ED she is eating a clear liquid tray. Denies any hematemesis, coffee ground emesis. No report of black or bloody stools. Cirrhosis has been complicated by: Ascites:Yes, not since TIPS placed Encephalopathy:Yes, managed on lactulose and rifaximin GI Varices:Yes, banded 09/16/23 Variceal Bleeding:Yes, s/p TIPS on 09/18/2023 Hepatocellular cancer: No KUB 2023: TIPS catheter is seen. Degenerative changes are seen in the visualized skeleton. The bowel gas pattern is nonobstructive. Small stool burden is seen. EGD 2023: - Mildly severe reflux esophagitis with no bleeding. - Small hiatal hernia. - Portal hypertensive gastropathy. - Normal examined duodenum. - No specimens collected. Allergies Allergy/AdvReac Type Severity Reaction Status Date / Time banana Allergy Intermediate RASH, Verified 06/02/24 22:41 THROAT SLIGHTLY SWOLLEN Penicillins Allergy Unknown HAPPENED Verified 06/02/24 22:41 A CHILD Home Medications Medication Instructions Recorded Confirmed Type budesonide-formoterol HFA 160 2 puff inhalation BID 06/20/21 06/02/24 History mcg-4.5 mcg/actuation aerosol inhaler (Symbicort) dextroamphetamine-amphetamine 5 mg 5 mg PO AMPM 06/20/21 06/02/24 History tablet (Adderall) loratadine 10 mg tablet 10 mg PO QAM 06/20/21 06/02/24 History montelukast 10 mg tablet 10 mg PO HS 06/20/21 06/02/24 History fluticasone propionate 50 2 spray intranasal QAM PRN 10/03/21 06/02/24 History mcg/actuation nasal allergies spray,suspension multivitamin 1 tab PO QAM 10/03/21 06/02/24 History ascorbic acid (vitamin C) 500 mg 500 mg PO QAM 01/31/22 06/02/24 History tablet (Vitamin C) cholecalciferol (vitamin D3) 50 50 mcg PO QAM 01/31/22 06/02/24 History mcg (2,000 unit) capsule (Vitamin D3) thiamine HCl (vitamin B1) 100 mg 100 mg PO QAM #30 tabs 03/23/22 06/02/24 Rx tablet magnesium oxide 400 mg (241.3 mg 400 mg PO BID 03/25/22 06/02/24 History magnesium) tablet potassium chloride 20 mEq 20 meq PO QID 03/25/22 06/02/24 History tablet,extended release diclofenac sodium 1 % topical gel 4 g topical TID PRN Pain 10/14/22 06/02/24 History (Voltaren Arthritis Pain) metoclopramide HCl 10 mg tablet 10 mg PO AMHS PRN Nausea 01/07/23 06/02/24 History folic acid 1 mg tablet 1 mg PO QAM 09/16/23 06/02/24 History promethazine 12.5 mg tablet 12.5 mg PO Q6 PRN Nausea 09/16/23 06/02/24 History lactulose 10 gram/15 mL oral 10 g PO QID 01/26/24 06/02/24 History solution pantoprazole 40 mg tablet,delayed 40 mg PO BID #60 tabs 01/28/24 06/02/24 Rx release (Protonix) albuterol sulfate 90 mcg/actuation 2 puff inhalation Q4 PRN cough or 06/02/24 06/02/24 History aerosol inhaler wheeze furosemide 40 mg tablet 40 mg PO DAILY 06/02/24 06/02/24 History ondansetron HCl 4 mg tablet 4 mg PO Q8 PRN Nausea 06/02/24 06/02/24 History rifaximin 550 mg tablet (Xifaxan) 550 mg PO AMHS 06/02/24 06/02/24 History spironolactone 100 mg tablet 100 mg PO QAM 06/02/24 06/02/24 History nitrofurantoin 100 mg PO BID 5 days #10 caps 06/03/24 Rx monohydrate/macrocrystals 100 mg capsule (Macrobid) Patient History Medical History Decompensated hepatic cirrhosis History of COVID-19 early 2019, tested thru hospital at [place], hospitalized during covid; fatigue, body aches, decreased appetite>resolved. Hemoptysis "sometimes still has this" Acute chest wall pain hx-"from a recent fall where she broke some ribs" Fall 06/2022, fx ribs VAN (acute kidney injury) hx Portal hypertension Alcoholic cirrhosis with abn coags Anemia pre-op H&H 04/15/22: 05/15 History of pancreatitis alcoholic 05/2021 per records GERD (gastroesophageal reflux disease) Pneumonia February [address] [facility]. denies sob currently Thrombocytopenia Jaundice hx-"not very much now" Acute on chronic alcoholic liver disease "currently trying to get on the transplant list" Hypokalemia Acute hyponatremia Hypomagnesemia Hyperbilirubinemia Rectal bleeding "a little when she's constipated" Alcohol abuse with withdrawal Fatty liver Depression Alcoholic hepatitis Anxiety ADD (attention deficit disorder) Asthma well controlled with inhalers Alcohol abuse Surgical History Hx of colonoscopy History of vascular access device 04/2022, [facility] H/O wisdom tooth extraction History of esophagogastroduodenoscopy (EGD) History of abdominal paracentesis Family History Grandmother Breast cancer Grandfather Heart disease Other No family history of adverse response to anesthesia Social History Smoking Status: Current some day smoker Tobacco Type: Cigarettes Cigarettes Per Day: 1-2; Second Hand Exposure: No; Do You Dip or Chew Tobacco: No; Hx Alcohol Use: Yes Alcohol type: hard liquor Hx Substance Use: Yes Last Used Substance: Unknown Last Used Substance Other:: 2 months Preferred Language: Azeri 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 Ability: Effective Vinyl Dipper Required: No Beliefs That Will Affect Care: None marital status: Single Current Living Situation: Significant Other Current Living Situation Comment: Apartment current occupational status: employed How many Children do You have: 0 Feels Safe at Home: Yes Safety Concerns: Feels Safe At This Time Assistive Devices: Glasses Review of Systems Review of Systems: All systems reviewed & are unremarkable except as noted in HPI & below Physical Exam Constitutional: WD/WN, vitals as above Respiratory: normal respiratory effort, lungs clear to auscultation Cardiovascular: RRR, no murmur, no edema Gastrointestinal (Abdomen): normal bowel sounds, soft, nontender, no hepatosplenomegaly Skin: no rashes, warm and dry Results & Data Vital Signs (Past 12 Hours) Vital Signs Temp Pulse Pulse Resp BP BP Pulse Ox 06/03/24 07:31 37.0 C 90 18 100/60 98 06/03/24 07:11 91 H 06/03/24 05:00 89 16 103/57 L 97 06/03/24 03:34 94 H 20 99/61 L 100 06/03/24 03:33 94 H 20 100 06/03/24 03:31 98 H 20 99/61 L 100 06/03/24 01:57 93 H 18 123/69 97 06/03/24 01:06 92 H 33 H 98/57 L 98 06/03/24 00:30 95 H 14 98/59 L 96 06/02/24 23:37 108 H 06/02/24 23:00 92 H 24 106/64 98 O2 Del Method 06/03/24 07:31 Room Air 06/03/24 07:11 06/03/24 05:00 Room Air 06/03/24 03:34 Room Air 06/03/24 03:33 Nasal Cannula 06/03/24 03:31 Room Air 06/03/24 01:57 06/03/24 01:06 06/03/24 00:30 06/02/24 23:37 06/02/24 23:00 Laboratory Results 06/03/24 06/03/24 06/02/24 Range/Units 07:02 04:25 22:48 WBC 2.30 L (4.8-10.8) K/ul RBC 3.09 L (4.20-5.40) M/uL Hgb 9.5 L (12.0-16.0) g/dl Hct 26.8 L (37.0-47.0) % MCV 86.7 (80.0-100.0) fL MCH 30.7 (25.0-34.0) pg MCHC 35.4 (32.0-36.0) g/dL RDW Std Deviation 40.8 (36.4-46.3) fL RDW Coeff of Yasmine 13.1 (11.5-14.5) % Plt Count 27 L* (130-400) K/uL MPV 10.8 (9.4-12.4) fL Immature Gran % (Auto) 0.9 % Neut % (Auto) 60.8 % Lymph % (Auto) 26.1 % [place] % (Auto) 10.0 % Eos % (Auto) 1.3 % Baso % (Auto) 0.9 % Neut # (Auto) 1.40 (1.40-6.50) K/uL Lymph # (Auto) 0.60 L (1.20-3.40) K/uL [place] # (Auto) 0.23 (0.11-0.59) K/uL Eos # (Auto) 0.03 (0.00-0.50) K/uL Baso # (Auto) 0.02 (0.00-0.20) K/uL Immature Gran # (Auto) 0.02 (0.01-0.20) K/uL Absolute Nucleated RBC (0.00-0.12) K/uL Nucleated RBC % (auto) % Platelet Estimate Signific. Decreased L (Normal) PT (9.0-12.0) Seconds INR (0.9-1.1) Sodium 138 (136-145) mmol/L Potassium 2.9 L (3.5-5.1) mmol/L Chloride 103 (98-107) mmol/L Carbon Dioxide 24 (21-32) mmol/L Anion Gap 11 (3-11) BUN 4 L (6-23) mg/dl Creatinine 0.81 (0.6-1.2) mg/dl Est Cr Clr Drug Dosing 75.2 ml/min Est GFR ( Amer) 107.5 ml/min Est GFR (Non-Af Amer) 92.8 ml/min BUN/Creatinine Ratio 4.9 L (10-20) Glucose 83 (70-99(Fasting)) mg/dl Lactate 2.5 H* 4.4 H* (0.4-2.0) mmol/L Calcium 7.3 L (8.6-10.3) mg/dl Magnesium 1.9 (1.7-2.4) mg/dl Total Bilirubin 2.9 H (0.2-1.0) mg/dl Direct Bilirubin 1.4 H (0-0.2) mg/dl AST 96 H (13-39) U/L ALT 32 (7-52) U/L Alkaline Phosphatase 215 H (34-104) U/L Ammonia (18-72) umol/L Total Protein 5.6 L (6.0-8.3) gm/dl Albumin 3.3 L (3.4-5.0) gm/dl Globulin (2.5-4.0) gm/dl Albumin/Globulin Ratio (0.9-2) Lipase (11-82) U/L Vitamin B12 1400 H (180-914) pg/ml Procalcitonin (0-0.5) ng/ml HCG, Qual (Negative) Urine Color Urine Appearance (Clear) Urine pH (4.5-7.5) Ur Specific [place] (1.000-1.030) Urine Protein (Negative) Urine Glucose (UA) (Negative) Urine Ketones (Negative) Urine Blood (Negative) Urine Nitrite (Negative) Urine Bilirubin (Negative) Urine Urobilinogen (Negative) Ur Leukocyte Esterase (Negative) Urine WBC (Auto) (0-5) /hpf Urine RBC (Auto) (0-2) /hpf U Hyaline Cast (Auto) (0-2) /lpf U Epithel Cells (Auto) (0-2) /hpf Urine Bacteria (Auto) (None Seen) Ethyl Alcohol mg/dL (<10.0) mg/dl 06/02/24 06/02/24 06/02/24 Range/Units 21:45 20:08 19:34 WBC 4.79 L (4.8-10.8) K/ul RBC 3.18 L (4.20-5.40) M/uL Hgb 9.7 L (12.0-16.0) g/dl Hct 27.7 L (37.0-47.0) % MCV 87.1 (80.0-100.0) fL MCH 30.5 (25.0-34.0) pg MCHC 35.0 (32.0-36.0) g/dL RDW Std Deviation 40.7 (36.4-46.3) fL RDW Coeff of Yasmine 12.9 (11.5-14.5) % Plt Count 45 L (130-400) K/uL MPV 12.1 (9.4-12.4) fL Immature Gran % (Auto) 0.8 % Neut % (Auto) 73.1 % Lymph % (Auto) 16.7 % [place] % (Auto) 8.6 % Eos % (Auto) 0.2 % Baso % (Auto) 0.6 % Neut # (Auto) 3.50 (1.40-6.50) K/uL Lymph # (Auto) 0.80 L (1.20-3.40) K/uL [place] # (Auto) 0.41 (0.11-0.59) K/uL Eos # (Auto) 0.01 (0.00-0.50) K/uL Baso # (Auto) 0.03 (0.00-0.20) K/uL Immature Gran # (Auto) 0.04 (0.01-0.20) K/uL Absolute Nucleated RBC 0.02 (0.00-0.12) K/uL Nucleated RBC % (auto) 0.4 % Platelet Estimate (Normal) PT 14.1 H (9.0-12.0) Seconds INR 1.3 H (0.9-1.1) Sodium 134 L (136-145) mmol/L Potassium 2.5 L* (3.5-5.1) mmol/L Chloride 92 L (98-107) mmol/L Carbon Dioxide 25 (21-32) mmol/L Anion Gap 17 H (3-11) BUN 4 L (6-23) mg/dl Creatinine 0.90 (0.6-1.2) mg/dl Est Cr Clr Drug Dosing 67.7 ml/min Est GFR ( Amer) 94.7 ml/min Est GFR (Non-Af Amer) 81.7 ml/min BUN/Creatinine Ratio 4.4 L (10-20) Glucose 155 H (70-99(Fasting)) mg/dl Lactate 4.1 H* (0.4-2.0) mmol/L Calcium 8.3 L (8.6-10.3) mg/dl Magnesium 1.2 L (1.7-2.4) mg/dl Total Bilirubin 3.8 H (0.2-1.0) mg/dl Direct Bilirubin (0-0.2) mg/dl AST 107 H (13-39) U/L ALT 36 (7-52) U/L Alkaline Phosphatase 257 H (34-104) U/L Ammonia 52.0 (18-72) umol/L Total Protein 6.7 (6.0-8.3) gm/dl Albumin 3.9 (3.4-5.0) gm/dl Globulin 2.8 (2.5-4.0) gm/dl Albumin/Globulin Ratio 1.4 (0.9-2) Lipase 32 (11-82) U/L Vitamin B12 (180-914) pg/ml Procalcitonin 0.08 (0-0.5) ng/ml HCG, Qual Negative (Negative) Urine Color Yellow Urine Appearance Clear (Clear) Urine pH 7.0 (4.5-7.5) Ur Specific [place] 1.006 (1.000-1.030) Urine Protein Negative (Negative) Urine Glucose (UA) Negative (Negative) Urine Ketones Negative (Negative) Urine Blood Negative (Negative) Urine Nitrite Negative (Negative) Urine Bilirubin Negative (Negative) Urine Urobilinogen Positive H (Negative) Ur Leukocyte Esterase 2+ H (Negative) Urine WBC (Auto) 11-20 H (0-5) /hpf Urine RBC (Auto) 0-2 (0-2) /hpf U Hyaline Cast (Auto) 0-2 (0-2) /lpf U Epithel Cells (Auto) 3-5 H (0-2) /hpf Urine Bacteria (Auto) 4+ H (None Seen) Ethyl Alcohol mg/dL 353.2 H (<10.0) mg/dl PG Care Time/CCT Total # of Minutes Spent Total Time Spent with Patient: Total time spent is greater than 50% in coordination of care (as documented) at patient's floor/unit and/or counseling patient: Coding Level of Care Code 13886 INT INP/OBS CARE 2MIN Diagnoses Intractable nausea and vomiting R11.2
[2024-06-03 11:53] VITALS: O2SAT 97
--- NOTE | 2024-06-03 12:50 | Discharge Summary ---
Discharge Summary Date of Service June 03, 2024 Principal Dx & Hospital Course #1 = Principal Diagnosis (1) Alcohol intoxication delirium with moderate or severe use disorder: (2) Intractable nausea and vomiting: (3) Hypokalemia: (4) Hypomagnesemia: (5) Pancytopenia: (6) Cirrhosis of liver: (7) Alcohol abuse: Plan Patient presents to the emergency room with intractable nausea and vomiting in setting of alcohol intoxication with a history of severe addiction and abuse. Also noted to be hypokalemic and hypomagnesemic. Patient was cared for in the hospital. Given IV fluid resuscitation. Her electrolytes were aggressively replaced. As her intoxication improved nausea and vomiting improved. She was tolerating a diet. Had extensive discussion with the patient about her plans to manage her ongoing alcohol addiction. She states that she has counselors and 2 groups that she is participating in. She is not interested in starting naltrexone reporting that it has not worked for her in the past. Long discuss ion the patient stating that she is significantly affected her body with her alcohol misuse with extensive cirrhosis and bone marrow suppression as evidenced by her pancytopenia and coagulopathy. She reports that she is already a patient of the [facility] liver transplant census. Also following with cardiology is anticipating possible transplantation at some point. Patient had abnormal urinalysis at time of admission. Urine culture is pending. She was started on a aztreonam based on urine culture greater than 2 years ago. Unclear if patient truly symptomatic from UTI and whether the nausea and vomiting is from UTI or her alcohol intoxication. Will empirically continue treatment with Macrobid. Can follow cultures outpatient and adjust antibiotics if needed. Patient's diet was advanced. She tolerated clear liquids without any problems. Electrolytes were repleted to normal ranges. She was not displaying any significant symptoms of alcohol withdrawal. She be discharged home to continue advancing her diet at home and follow-up with her outpatient providers. Notes For Next Care Provider Consider checking BMP and magnesium level in 5 to 10 days Follow urine culture sensitivities continue to encourage patient to abstain from alcohol and participate in her counseling and group sessions. Patient should continue to follow-up with outpatient specialist as previously arranged Medication Changes From Visit Potassium and magnesium supplements increased Admission HPI Per Admitting Provider 39-year-old female with past medical history significant for alcoholic cirrhosis of liver, portal hypertension, history of TIPS in August 2023 and revision in October 2023, esophageal varices, pancytopenia, alcoholism, ADHD, GERSON, depression, s/p a port comes because of persistent nausea and vomiting going on since last 1 week. Patient states since last 1 week she cannot eat anything because of nausea. She did move her bowels last 1 week. Has feeling of hot and cold. Denies any chest pain or shortness of breath. States there is no blood in the vomiting. Denies any recent blood in the stools. She states she has occasional nosebleeds and also bleeding from her gums. Denies any headache. Vision is okay. No fevers. Hemodynamics are okay. Patient states since she was discharged in January of this year she did not drink alcohol except once last week and once today. Past medical history. As mentioned above Past surgical history. Colonoscopy and EGD. TIPS procedure Social history. Quit smoking 2021 is smoked 0.5 pack a day for 10 years. History of alcohol abuse. Smokes marijuana once a week. Family history. Maternal grandmother had bone and breast cancer and melanoma. Paternal grandfather had heart attack. Lung cancer. Prostate cancer. Brother has irritable bowel syndrome. Paternal grandmother had pacemaker. Discharge Exam Constitutional: Drowsy but does awaken HEENT: Mucous membranes moist. Lungs: Clear to auscultation, decreased, no wheezes rales or rhonchi CV: S1-S2, regular Abdomen: Soft, nontender, nondistended Extremities: No significant edema Neuro: No focal deficits Psych: Drowsy, depressed affect Updated Medication List Medication Instructions Recorded Confirmed Type budesonide-formoterol HFA 160 2 puff inhalation BID 06/20/21 06/02/24 History mcg-4.5 mcg/actuation aerosol inhaler (Symbicort) dextroamphetamine-amphetamine 5 mg 5 mg PO AMPM 06/20/21 06/02/24 History tablet (Adderall) loratadine 10 mg tablet 10 mg PO QAM 06/20/21 06/02/24 History montelukast 10 mg tablet 10 mg PO HS 06/20/21 06/02/24 History fluticasone propionate 50 2 spray intranasal QAM PRN 10/03/21 06/02/24 History mcg/actuation nasal allergies spray,suspension multivitamin 1 tab PO QAM 10/03/21 06/02/24 History ascorbic acid (vitamin C) 500 mg 500 mg PO QAM 01/31/22 06/02/24 History tablet (Vitamin C) cholecalciferol (vitamin D3) 50 50 mcg PO QAM 01/31/22 06/02/24 History mcg (2,000 unit) capsule (Vitamin D3) thiamine HCl (vitamin B1) 100 mg 100 mg PO QAM #30 tabs 03/23/22 06/02/24 Rx tablet magnesium oxide 400 mg (241.3 mg 400 mg PO BID 03/25/22 06/02/24 History magnesium) tablet potassium chloride 20 mEq 20 meq PO QID 03/25/22 06/02/24 History tablet,extended release diclofenac sodium 1 % topical gel 4 g topical TID PRN Pain 10/14/22 06/02/24 History (Voltaren Arthritis Pain) metoclopramide HCl 10 mg tablet 10 mg PO AMHS PRN Nausea 01/07/23 06/02/24 History folic acid 1 mg tablet 1 mg PO QAM 09/16/23 06/02/24 History promethazine 12.5 mg tablet 12.5 mg PO Q6 PRN Nausea 09/16/23 06/02/24 History lactulose 10 gram/15 mL oral 10 g PO QID 01/26/24 06/02/24 History solution pantoprazole 40 mg tablet,delayed 40 mg PO BID #60 tabs 01/28/24 06/02/24 Rx release (Protonix) albuterol sulfate 90 mcg/actuation 2 puff inhalation Q4 PRN cough or 06/02/24 06/02/24 History aerosol inhaler wheeze furosemide 40 mg tablet 40 mg PO DAILY 06/02/24 06/02/24 History ondansetron HCl 4 mg tablet 4 mg PO Q8 PRN Nausea 06/02/24 06/02/24 History rifaximin 550 mg tablet (Xifaxan) 550 mg PO AMHS 06/02/24 06/02/24 History spironolactone 100 mg tablet 100 mg PO QAM 06/02/24 06/02/24 History nitrofurantoin 100 mg PO BID 5 days #10 caps 06/03/24 Rx monohydrate/macrocrystals 100 mg capsule (Macrobid) Hospital Stay Data Consultations 06/02/24 22:09 ED Decision to Admit Stat 06/03/24 08:00 Consult Gastroenterology Routine Diagnostic Imagining Performed Reviewed imaging, laboratory and diagnostic studies. Pertinent findings as below. CBC showing pancytopenia at baseline Magnesium 1.9, improved Urinalysis noted, urine culture pending Pending Results Patient Have Any Pending Studies at Discharge: Yes Discharge Instructions Given to Patient (Per Discharging Provider) Strongly recommend you not drink any beer or alcohol in the future. Strongly recommend you reach out to your counselors and support groups for your alcohol addiction Follow-up with your outpatient specialist as already arranged Total Time Total Time Spent Total Time Spent (In Minutes): 37
[2024-06-03 13:50] LABS: BUN Creatinine Ratio 4.8 (10-20); Calcium 7.4 mg/dl (8.6-10.3); Creatinine Clr Calc Pharmacy 73.4 ml/min; Est GFR (African American) 104.4 ml/min; Est GFR (Non-African American) 90.1 ml/min; Potassium 4.1 mmol/L (3.5-5.1)
--- NOTE | 2024-06-03 13:51 | Electrocardiogram Report ---
Test Reason : Blood Pressure : */* mmHG Vent. Rate : 91 BPM Atrial Rate : 91 BPM P-R Int : 166 ms QRS Dur : 86 ms QT Int : 416 ms P-R-T Axes : 76 -1 45 degrees QTcB Int : 511 ms Normal sinus rhythm Possible Inferior infarct (cited on or before 30-Jun-2022) Poor R wave progression, consider anterior FL vs. lead placement vs. LVH Prolonged QT Abnormal ECG When compared with ECG of 26-Jan-2024 15:27, T wave amplitude has increased in Lateral leads Confirmed by Trevor Prasad ([id number]) on 06/03/2024 1:50:59 PM Referred By: REFERRED SELF Confirmed By: Trevor Prasad
[2024-06-03] MEDS: HEPARIN 100 UNIT/ML 5ML FLUSH ONE (14:19)
[2024-06-03 14:30] VITALS: BP 102/64; PULSE 97
[2024-06-03] MEDS ORDERED: MONTELUKAST SODIUM 10 MG TABLET PO SCH (21:00)
[2024-06-03] MEDS ORDERED: GABAPENTIN 600 MG TAB PO SCH (22:00)
[2024-06-05] MEDS ORDERED: GABAPENTIN 600 MG TAB PO SCH (02:00)
[2024-06-06] MEDS ORDERED: GABAPENTIN 600 MG TAB PO SCH (14:00)
== END 2024-06-03 14:28 | disposition home or self-care (01) | DRG 433 ==
LOC: ED 19:12 → EDINP 06-03 00:42

== ENCOUNTER 2024-07-30 21:51 | Inpatient (IN) ==
[2024-07-30 22:41] LABS: Basophils # (auto) 0.09 K/uL (0.00-0.20); Basophils % (auto) 1.2 %; Eosinophils # (auto) 0.13 K/uL (0.00-0.50); Eosinophils % (auto) 1.8 %; Hemoglobin 12.9 g/dl (12.0-16.0); Immature Granulocytes # (auto) 0.02 K/uL (0.01-0.20); Immature Granulocytes % (auto) 0.3 %; Lymphocytes # (auto) 2.25 K/uL (1.20-3.40); Lymphocytes % (auto) 31.2 %; Mean Corpuscular Hemoglobin 33.7 pg (25.0-34.0); Mean Corpuscular Hgb Conc 35.8 g/dL (32.0-36.0); Mean Platelet Volume 10.5 fL (9.4-12.4); Monocytes # (auto) 0.36 K/uL (0.11-0.59); Neutrophils # (auto) 4.37 K/uL (1.40-6.50); Neutrophils % (auto) 60.5 %; Platelet Count 119 K/uL (130-400); RDW Coefficient of Variation 16.2 % (11.5-14.5); RDW Standard Deviation 56.2 fL (36.4-46.3); Red Blood Count 3.83 M/uL (4.20-5.40); White Blood Count 7.22 K/ul (4.8-10.8)
--- NOTE | 2024-07-30 22:45 | Emergency Department Note ---
Impression & Plan Alcohol intoxication, Alcohol abuse, Depression, Hypokalemia ED Provider Note NAME: CARMEN BOUCHER AGE: 39 SEX: F : 1985 ARRIVES VIA: Ambulance INFORMANT: Patient, ED PROVIDER(S): Trevor Sainz DO CHIEF COMPLAINT: Health evaluation HPI: The patient is a 39-year-old female who has a history of chronic alcohol abuse and liver failure who presented to the emergency department for an evaluation of mental health issues. The patient has not been doing well recently with her liver issues. The patient was recently told that she could not be a candidate for liver transplant. The patient has been drinking daily. The patient denies having any hematemesis. She denies have any black or tarry stools. She made comments to her boyfriend that she did not want to live anymore. She does not not have any active suicidal ideation. She denies having any chest pain or difficulty breathing. ROS: See above HPI for pertinent positives & negatives. A total of 10 systems reviewed and were otherwise negative. PAST MEDICAL HISTORY: See Below PAST SURGICAL HISTORY: See Below FAMILY HISTORY: See Below SOCIAL HISTORY: See Below HOME MEDICATIONS: See Below ALLERGIES: See Below VITALS: See Below PHYSICAL EXAMINATION: GENERAL: The patient is awake and alert. The patient is anxious and tearful. EYES: The conjunctivae are clear. The pupils are round and reactive. EARS, NOSE, MOUTH AND THROAT: The nose is without any evidence of any deformity. NECK: The neck is nontender and supple. RESPIRATORY: Normal respiratory effort is noted there is no evidence of wheezing rhonchi or rales CARDIOVASCULAR: Regular rate and rhythm noted there no murmurs rubs or gallops normal S1 normal S2. GASTROINTESTINAL: The abdomen is soft. Abdomen is nontender. MUSCULOSKELETAL/EXTREMITIES: There is no evidence of gross deformity full range of motion is noted in the hips and shoulders. SKIN: There is no obvious evidence of any rash. There are no petechiae, pallor or cyanosis noted. NEUROLOGIC: Patient is awake alert and oriented x3 PSYCH: The patient is tearful. The patient makes poor eye contact. Affect is flat. The patient is currently denying any suicidal homicidal ideation. MEDICAL DECISION MAKING: The patient is a 39-year-old female who presented to the emergency department for mental health evaluation. The patient was having significant anxiety and depression. She recently found out that she would not be able to get a liver transplant. She started drinking again. The patient was clinically intoxicated. She arrived under a 302 petition. I discussed the patient's laboratory results with her. She was not able to be medically cleared for the 302 evaluation. I discussed her condition with the on-call [facility] hospitalist. The patient may require further inpatient management and then evaluation by our mental health staff as an inpatient to determine if the 302 would need to be upheld. The patient was treated with medication for anxiety. Her laboratory results are reassuring and appear to be improved compared to previous. Triage Nursing notes reviewed. Prior medical records reviewed Vital Signs: reviewed and remarkable for no significant abnormalities Differential diagnosis: Mood disorder, infection, hypoglycemia, electrolyte abnormalities, cardiac sources, intracerebral event, toxicologic, trauma, neurologic, as well as other pathologies. ER treatment provided: See below Diagnostics interpreted by me: ECG: EKG was obtained in the emergency department. My interpretation is normal sinus rhythm at 72 bpm. There is no ectopy. Poor R wave progression was noted. This was compared to a tracing from June 03, 2024. No changes were noted. Cardiac Monitoring: An order was placed for continuous cardiac monitoring. The monitor shows a rate of 82 bpm with rhythm. Laboratory studies: As stated above and show below. Imaging studies: See below. Radiographic imaging was reviewed by myself Consultation(s): I discussed this case with Dr. [facility] Past Med/Surg History Problem List (Updated 07/30/24 @ 23:30 by Trevor Sainz DO) Hypokalemia (Acute) Depression (Acute) Alcohol intoxication (Acute) Alcohol intoxication delirium with moderate or severe use disorder Intractable nausea and vomiting Pancytopenia Decompensated hepatic cirrhosis Weakness (Acute) Anemia (Acute) Cirrhosis of liver (Acute) Acute GI bleeding (Acute) Symptomatic anemia (Acute) Acute GI bleeding (Acute) Coagulopathy Shock circulatory Hematemesis Nausea & vomiting Alcoholic pancreatitis (Acute) 05/2021 treated at [facility] Abnormal CT of the abdomen Acute appendicitis with localized peritonitis Acute appendicitis (Acute) Lab test negative for COVID-19 virus (Acute) Abdominal pain Generalized anxiety disorder Alcohol use disorder Electrolyte abnormality Hyperbilirubinemia (Acute) Abdominal distention Hypokalemia Hypomagnesemia Hyponatremia Tobacco use Cirrhosis (Acute) Hyperbilirubinemia (Acute) Hypomagnesemia (Acute) Hypocalcemia (Acute) Encounter for pre-operative examination Closed rib fracture (Acute) Acute chest wall pain hx-"from a recent fall where she broke some ribs" Depression Asthma well controlled with inhalers Alcohol abuse (Acute) Anxiety ADD (attention deficit disorder) Medical History History of COVID-19 early 2019, tested thru hospital at [place], hospitalized during covid; fatigue, body aches, decreased appetite>resolved. Hemoptysis "sometimes still has this" Fall 06/2022, fx ribs VAN (acute kidney injury) hx Portal hypertension Alcoholic cirrhosis with abn coags Anemia pre-op H&H 04/15/22: 05/15 History of pancreatitis alcoholic 05/2021 per records GERD (gastroesophageal reflux disease) Pneumonia February 2022 treated at [facility]. denies sob currently Thrombocytopenia Jaundice hx-"not very much now" Acute on chronic alcoholic liver disease "currently trying to get on the transplant list" Hypokalemia Acute hyponatremia Hypomagnesemia Hyperbilirubinemia Rectal bleeding "a little when she's constipated" Alcohol abuse with withdrawal Fatty liver Alcoholic hepatitis Surgical History Hx of colonoscopy History of vascular access device 04/2022, [facility] H/O wisdom tooth extraction History of esophagogastroduodenoscopy (EGD) History of abdominal paracentesis Family History Grandmother Breast cancer Grandfather Heart disease Other No family history of adverse response to anesthesia Social History Smoking Status: Current every day smoker Tobacco Type: Cigarettes Cigarettes Per Day: 1-2; Second Hand Exposure: No; Do You Dip or Chew Tobacco: No; Hx Alcohol Use: Yes Alcohol type: hard liquor Hx Substance Use: Yes Last Used Substance: Unknown Last Used Substance Other:: 2 months Preferred Language: Indonesian 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 Ability: Effective Marketing Services Specialist Required: No Beliefs That Will Affect Care: None marital status: Single Current Living Situation: Significant Other Current Living Situation Comment: Apartment current occupational status: employed How many Children do You have: 0 Feels Safe at Home: Yes Assistive Devices: Glasses Allergies Allergies Allergy/AdvReac Type Severity Reaction Status Date / Time banana Allergy Intermediate RASH, Verified 06/02/24 22:41 THROAT SLIGHTLY SWOLLEN Penicillins Allergy Unknown HAPPENED Verified 06/02/24 22:41 A CHILD Home Meds Home Medications Medication Instructions Recorded Confirmed budesonide-formoterol HFA 160 2 puff inhalation BID 06/20/21 07/31/24 mcg-4.5 mcg/actuation aerosol inhaler (Symbicort) dextroamphetamine-amphetamine 5 mg 5 mg PO AMPM 06/20/21 07/31/24 tablet (Adderall) loratadine 10 mg tablet 10 mg PO QAM 06/20/21 07/31/24 montelukast 10 mg tablet 10 mg PO HS 06/20/21 07/31/24 fluticasone propionate 50 2 spray intranasal QAM PRN 10/03/21 07/31/24 mcg/actuation nasal allergies spray,suspension multivitamin 1 tab PO QAM 10/03/21 07/31/24 ascorbic acid (vitamin C) 500 mg 500 mg PO QAM 01/31/22 07/31/24 tablet (Vitamin C) cholecalciferol (vitamin D3) 50 50 mcg PO QAM 01/31/22 07/31/24 mcg (2,000 unit) capsule (Vitamin D3) diclofenac sodium 1 % topical gel 4 g topical TID PRN Pain 10/14/22 07/31/24 (Voltaren Arthritis Pain) metoclopramide HCl 10 mg tablet 10 mg PO AMHS PRN Nausea 01/07/23 07/31/24 folic acid 1 mg tablet 1 mg PO QAM 09/16/23 07/31/24 promethazine 12.5 mg tablet 12.5 mg PO Q6 PRN Nausea 09/16/23 07/31/24 lactulose 10 gram/15 mL oral 10 g PO QID 01/26/24 07/31/24 solution albuterol sulfate 90 mcg/actuation 2 puff inhalation Q4 PRN cough or 06/02/24 07/31/24 aerosol inhaler wheeze furosemide 40 mg tablet 40 mg PO DAILY 06/02/24 07/31/24 ondansetron HCl 4 mg tablet 4 mg PO Q8 PRN Nausea 06/02/24 07/31/24 rifaximin 550 mg tablet (Xifaxan) 550 mg PO AMHS 06/02/24 07/31/24 spironolactone 100 mg tablet 100 mg PO QAM 06/02/24 07/31/24 acamprosate 333 mg tablet,delayed See Rx Instructions .Route .COMPLEX 07/31/24 07/31/24 release gabapentin 100 mg capsule 100 mg PO 3XD 07/31/24 07/31/24 nicotine 14 mg/24 hr daily 1 patch topical 1XD 07/31/24 07/31/24 transdermal patch omeprazole 40 mg capsule,delayed 40 mg PO 2XD 07/31/24 07/31/24 release ursodiol 500 mg tablet 500 mg PO 2XD 07/31/24 07/31/24 Previous Rx's Medication Instructions Recorded magnesium oxide 400 mg (241.3 mg 800 mg (2 x 400 mg (241.3 mg 06/03/24 magnesium) tablet magnesium)) PO BID 30 days #120 tabs potassium chloride 20 mEq 40 meq (2 x 20 mEq) PO TID 30 days 06/03/24 tablet,extended release #180 tabs Results & Data (ED) Vital Signs Vital Signs - 24 hr 07/30/24 22:08 Temperature 36.7 C Temperature Source Oral Pulse Rate 78 Respiratory Rate 16 Respiratory Effort / Characteristics Non-Labored Spontaneous Respiratory Depth Normal Respiratory Pattern Regular Blood Pressure 124/77 Blood Pressure Mean 92 Pulse Oximetry 96 Oxygen Delivery Method Room Air Sepsis Recent Fever Within 48 Hours No Sepsis New/Unexplained Change in Mental Status N/A Sepsis Action Taken by Nursing No Action Required Home Medications Current Medication List: was personally reviewed by me Laboratory Data Attestation: I reviewed the patient's lab results. 07/30/24 22:15 07/30/24 22:15 Lab Results 07/30/24 07/30/24 07/30/24 Range/Units 22:15 22:30 22:47 WBC 7.22 (4.8-10.8) K/ul RBC 3.83 L (4.20-5.40) M/uL Hgb 12.9 (12.0-16.0) g/dl Hct 36.0 L (37.0-47.0) % MCV 94.0 (80.0-100.0) fL MCH 33.7 (25.0-34.0) pg MCHC 35.8 (32.0-36.0) g/dL RDW Std Deviation 56.2 H (36.4-46.3) fL RDW Coeff of Yasmine 16.2 H (11.5-14.5) % Plt Count 119 L (130-400) K/uL MPV 10.5 (9.4-12.4) fL Immature Gran % (Auto) 0.3 % Neut % (Auto) 60.5 % Lymph % (Auto) 31.2 % [place] % (Auto) 5.0 % Eos % (Auto) 1.8 % Baso % (Auto) 1.2 % Neut # (Auto) 4.37 (1.40-6.50) K/uL Lymph # (Auto) 2.25 (1.20-3.40) K/uL [place] # (Auto) 0.36 (0.11-0.59) K/uL Eos # (Auto) 0.13 (0.00-0.50) K/uL Baso # (Auto) 0.09 (0.00-0.20) K/uL Immature Gran # (Auto) 0.02 (0.01-0.20) K/uL PT 11.9 (9.0-12.0) Seconds INR 1.1 (0.9-1.1) Sodium 140 (136-145) mmol/L Potassium 3.0 L (3.5-5.1) mmol/L Chloride 103 (98-107) mmol/L Carbon Dioxide 25 (21-32) mmol/L Anion Gap 12 H (3-11) BUN 5 L (6-23) mg/dl Creatinine 1.07 (0.6-1.2) mg/dl Est Cr Clr Drug Dosing Not Reportable eGFR 68.61 BUN/Creatinine Ratio 4.7 L (10-20) Glucose 101 H (70-99(Fasting)) mg/dl POC Glucose 104 H (70-99) mg/dl Calcium 8.6 (8.6-10.3) mg/dl Magnesium 1.6 L (1.7-2.4) mg/dl Total Bilirubin 4.4 H (0.2-1.0) mg/dl AST 94 H (13-39) U/L ALT 20 (7-52) U/L Alkaline Phosphatase 343 H (34-104) U/L Total Protein 7.3 (6.0-8.3) gm/dl Albumin 3.8 (3.4-5.0) gm/dl Globulin 3.5 (2.5-4.0) gm/dl Albumin/Globulin Ratio 1.1 (0.9-2) TSH 4.416 (0.300-4.500) uIu/ml HCG, Qual Negative (Negative) Urine Color Urine Appearance (Clear) Urine pH (4.5-7.5) Ur Specific [place] (1.000-1.030) Urine Protein (Negative) Urine Glucose (UA) (Negative) Urine Ketones (Negative) Urine Blood (Negative) Urine Nitrite (Negative) Urine Bilirubin (Negative) Urine Urobilinogen (Negative) Ur Leukocyte Esterase (Negative) Urine WBC (Auto) (0-5) /hpf Urine RBC (Auto) (0-2) /hpf U Hyaline Cast (Auto) (0-2) /lpf U Epithel Cells (Auto) (0-2) /hpf Urine Bacteria (Auto) (None Seen) Salicylates < 3.0 L (3.0-30) mg/dl Urine Opiates Screen (Neg) Ur Methadone, Qual (Neg) Urine Fentanyl Screen (Neg) Acetaminophen < 3 L (10-30) ug/ml Urine Barbiturates (Neg) Ur Phencyclidine (PCP) (Neg) U Amphetamin/Meth Scrn (Neg) MDMA (Ecstasy) Screen (Neg) U Benzodiazepines Scrn (Neg) Ur Cocaine Metabolite (Neg) U Marijuana (THC) Screen (Neg) Ethyl Alcohol mg/dL 473.3 H (<10.0) mg/dl SARS-CoV-2, RNA, NAAT NEGATIVE (NEGATIVE) 07/30/24 Range/Units 22:59 WBC (4.8-10.8) K/ul RBC (4.20-5.40) M/uL Hgb (12.0-16.0) g/dl Hct (37.0-47.0) % MCV (80.0-100.0) fL MCH (25.0-34.0) pg MCHC (32.0-36.0) g/dL RDW Std Deviation (36.4-46.3) fL RDW Coeff of Yasmine (11.5-14.5) % Plt Count (130-400) K/uL MPV (9.4-12.4) fL Immature Gran % (Auto) % Neut % (Auto) % Lymph % (Auto) % [place] % (Auto) % Eos % (Auto) % Baso % (Auto) % Neut # (Auto) (1.40-6.50) K/uL Lymph # (Auto) (1.20-3.40) K/uL [place] # (Auto) (0.11-0.59) K/uL Eos # (Auto) (0.00-0.50) K/uL Baso # (Auto) (0.00-0.20) K/uL Immature Gran # (Auto) (0.01-0.20) K/uL PT (9.0-12.0) Seconds INR (0.9-1.1) Sodium (136-145) mmol/L Potassium (3.5-5.1) mmol/L Chloride (98-107) mmol/L Carbon Dioxide (21-32) mmol/L Anion Gap (3-11) BUN (6-23) mg/dl Creatinine (0.6-1.2) mg/dl Est Cr Clr Drug Dosing eGFR BUN/Creatinine Ratio (10-20) Glucose (70-99(Fasting)) mg/dl POC Glucose (70-99) mg/dl Calcium (8.6-10.3) mg/dl Magnesium (1.7-2.4) mg/dl Total Bilirubin (0.2-1.0) mg/dl AST (13-39) U/L ALT (7-52) U/L Alkaline Phosphatase (34-104) U/L Total Protein (6.0-8.3) gm/dl Albumin (3.4-5.0) gm/dl Globulin (2.5-4.0) gm/dl Albumin/Globulin Ratio (0.9-2) TSH (0.300-4.500) uIu/ml HCG, Qual (Negative) Urine Color Yellow Urine Appearance Cloudy A (Clear) Urine pH 6.5 (4.5-7.5) Ur Specific [place] 1.006 (1.000-1.030) Urine Protein Negative (Negative) Urine Glucose (UA) Negative (Negative) Urine Ketones Negative (Negative) Urine Blood Trace H (Negative) Urine Nitrite Negative (Negative) Urine Bilirubin Negative (Negative) Urine Urobilinogen Negative (Negative) Ur Leukocyte Esterase Trace H (Negative) Urine WBC (Auto) 6-10 H (0-5) /hpf Urine RBC (Auto) 0-2 (0-2) /hpf U Hyaline Cast (Auto) 0-2 (0-2) /lpf U Epithel Cells (Auto) >20 H (0-2) /hpf Urine Bacteria (Auto) 2+ H (None Seen) Salicylates (3.0-30) mg/dl Urine Opiates Screen Neg (Neg) Ur Methadone, Qual Neg (Neg) Urine Fentanyl Screen Neg (Neg) Acetaminophen (10-30) ug/ml Urine Barbiturates Pos H (Neg) Ur Phencyclidine (PCP) Neg (Neg) U Amphetamin/Meth Scrn Neg (Neg) MDMA (Ecstasy) Screen Neg (Neg) U Benzodiazepines Scrn Neg (Neg) Ur Cocaine Metabolite Neg (Neg) U Marijuana (THC) Screen Pos H (Neg) Ethyl Alcohol mg/dL (<10.0) mg/dl SARS-CoV-2, RNA, NAAT (NEGATIVE) Administered Medications Magnesium Sulfate/Dextrose (Magnesium Sulfate / D5w) 1 gm in 100 mls @ 50 mls/hr IV ONE ONE Stop: 07/31/24 02:30 Last Admin: 07/31/24 01:00 Dose: 50 mls/hr Documented By: HB Potassium Chloride 20 meq/ (Lactated Ringer's) 1,010 mls @ 60 mls/hr IV .[id number] [facility] Stop: 08/01/24 00:44 Last Admin: 07/31/24 01:00 Dose: 60 mls/hr Documented By: HB Discontinued Medications Thiamine HCl 100 mg/ Syringe 10 mls @ 2 mls/min IV NOW STA Stop: 07/30/24 23:58 Last Admin: 07/31/24 00:59 Dose: 2 mls/min Documented By: HB Lorazepam (Lorazepam 2 Mg/1 Ml Vial) 1 mg IV ONE PRN; Protocol PRN Reason: EtoH Withdrawal AWSS 6-10 Last Admin: 07/31/24 00:05 Dose: 1 mg Documented By: NRB Lorazepam (Lorazepam 1 Mg Tab) 1 mg PO NOW STA Stop: 07/31/24 00:01 Last Admin: 07/31/24 00:14 Dose: Not Given Documented By: NRB Potassium Chloride (Potassium Chloride 10 Meq Tabcr) 20 meq PO NOW STA Stop: 07/30/24 23:30 Last Admin: 07/31/24 01:10 Dose: Not Given Documented By: NRB Discharge Plan Visit Data Chief Complaint: Mental Health Evaluation Stated Complaint: MHMR, ETOH, end stage liver cir. ED Provider: Trevor Sainz Discharge Problem: Alcohol intoxication, Alcohol abuse, Depression, Hypokalemia Patient Disposition: Being Evaluated by Hospitalist Discharge Instructions Interventions: ED Discharge Assessment Last Done: 07/31/24 00:55 Discharge Problem: Alcohol intoxication Qualifiers: Complication of substance-induced condition: with unspecified complication Q ualified Code(s): F10.929 - Alcohol use, unspecified with intoxication, unspecified Depression Qualifiers: Depression Type: unspecified Qualified Code(s): F32.A - Depression, unspecified
[2024-07-30 22:52] LABS: Alanine Aminotransferase 20 U/L (7-52); Albumin Globulin Ratio 1.1 (0.9-2); Albumin Level 3.8 gm/dl (3.4-5.0); Alkaline Phosphatase 343 U/L (34-104); Anion Gap 12 (3-11); Aspartate Aminotransferase 94 U/L (13-39); BUN Creatinine Ratio 4.7 (10-20); Bilirubin,Total 4.4 mg/dl (0.2-1.0); Blood Urea Nitrogen 5 mg/dl (6-23); Calcium 8.6 mg/dl (8.6-10.3); Carbon Dioxide 25 mmol/L (21-32); Chloride 103 mmol/L (98-107); Globulin 3.5 gm/dl (2.5-4.0); Glucose 101 mg/dl (70-99(Fasting)); Sodium 140 mmol/L (136-145); Total Protein 7.3 gm/dl (6.0-8.3)
[2024-07-30 22:54] LABS: Acetaminophen < 3 ug/ml (10-30); Salicylate < 3.0 mg/dl (3.0-30)
[2024-07-30 22:57] LABS: Pregnancy Test, Serum Negative (Negative)
[2024-07-30 23:07] LABS: Thyroid Stimulating Hormone 4.416 uIu/ml (0.300-4.500)
[2024-07-30 23:27] LABS: Appearance Urine Cloudy (Clear); Bacteria Urine Automated 2+ (None Seen); Bilirubin Urine Negative (Negative); Blood Urine Trace (Negative); Cast Urine Automated 0-2 /lpf (0-2); Color Urine Yellow; Epithelial Cell Urine Auto >20 /hpf (0-2); Glucose Urine UA Negative (Negative); Ketones Urine Negative (Negative); Leukocyte Esterase Urine Trace (Negative); Nitrite Urine Negative (Negative); Protein Urine Negative (Negative); RBC Urine Automated 0-2 /hpf (0-2); Specific Gravity Urine 1.006 (1.000-1.030); Urobilinogen Urine Negative (Negative); pH Urine 6.5 (4.5-7.5)
[2024-07-30 23:44] LABS: Amphetamines+Metham, Urine Neg (Neg); Barbiturates, Urine Pos (Neg); Benzodiazepine, Urine Neg (Neg); Cocaine, Urine Neg (Neg); Fentanyl, Urine Neg (Neg); MDMA (Ecstacy), Urine Neg (Neg); Marijuana, Urine Pos (Neg); Methadone, Urine Neg (Neg); Opiate, Urine Neg (Neg); Phencyclidine, Urine Neg (Neg)
--- NOTE | 2024-07-30 23:51 | History & Physical Report ---
Date of Service July 30, 2024 Assessment & Plan (1) Hypokalemia: Plan: Secondary to home diuretic Rx History of alcoholic cirrhosis Suicidal ideations Alcoholic hepatitis, good prognosis with Madrey's DF score of 3.9 points portal hypertension status post TIPS prolactinoma, medical management contemplated as per [facility] neuroendocrine note from 3 months ago ADD, on Adderall asthma, stable anxiety disorder ongoing tobacco/alcohol abuse Medical telemetry Replace electrolytes IVF, resume home diuretic Rx once patient euvolemic Psych consult re: suicidal ideations Suicide precautions until further recommendations from specialty Nicotine replacement therapy as needed DVT prophylaxis. SCDs Re: Thrombocytopenia Full code Patient request for mother to be given periodic updates regarding care. Ms. Sayra Burr, contact #[phone]. Text document was generated using DraftMix voice recognition software. It may contain grammatical or spelling errors. Kindly contact undersigned for clarification of any documentation item in question. History of Present Illness Chief Complaint: Upset Primary Care Provider: Zaina Bunch MD History obtained from patient and records. Medical history significant for alcoholic cirrhosis, portal hypertension status post TIPS, prolactinoma, ADD, asthma, anxiety disorder, cervical dysplasia as per records, ongoing tobacco/alcohol abuse. Last confinement May 2024 for electrolyte abnormalities in the setting of alcohol intoxication. Patient drinking heavily since last week after finding out that she was to be taken off [facility] transplant list for liver transplantation. Patient too high risk for transplant listing due to recurrent relapses as per documentation. Patient upset over [facility] transplant committee decision and verbalized to boyfriend that she did not want to live anymore. Denies unusual headache, chest pain, SOB, abdominal pain. Patient brought to ER for evaluation. Medical History as above Surgical History : Vascular procedures, TIPS Family History : Lung cancer, breast cancer, melanoma, lung cancer, heart disease Personal/Social history : Non-smoker, alcohol abuse, [employer] employee Allergies Allergy/AdvReac Type Severity Reaction Status Date / Time banana Allergy Intermediate RASH, Verified 06/02/24 22:41 THROAT SLIGHTLY SWOLLEN Penicillins Allergy Unknown HAPPENED Verified 06/02/24 22:41 A CHILD Home Medications Medication Instructions Recorded Confirmed Type budesonide-formoterol HFA 160 2 puff inhalation BID 06/20/21 07/31/24 History mcg-4.5 mcg/actuation aerosol inhaler (Symbicort) dextroamphetamine-amphetamine 5 mg 5 mg PO AMPM 06/20/21 07/31/24 History tablet (Adderall) loratadine 10 mg tablet 10 mg PO QAM 06/20/21 07/31/24 History montelukast 10 mg tablet 10 mg PO HS 06/20/21 07/31/24 History fluticasone propionate 50 2 spray intranasal QAM PRN 10/03/21 07/31/24 History mcg/actuation nasal allergies spray,suspension multivitamin 1 tab PO QAM 10/03/21 07/31/24 History ascorbic acid (vitamin C) 500 mg 500 mg PO QAM 01/31/22 07/31/24 History tablet (Vitamin C) cholecalciferol (vitamin D3) 50 50 mcg PO QAM 01/31/22 07/31/24 History mcg (2,000 unit) capsule (Vitamin D3) diclofenac sodium 1 % topical gel 4 g topical TID PRN Pain 10/14/22 07/31/24 History (Voltaren Arthritis Pain) metoclopramide HCl 10 mg tablet 10 mg PO AMHS PRN Nausea 01/07/23 07/31/24 History folic acid 1 mg tablet 1 mg PO QAM 09/16/23 07/31/24 History promethazine 12.5 mg tablet 12.5 mg PO Q6 PRN Nausea 09/16/23 07/31/24 History lactulose 10 gram/15 mL oral 10 g PO QID 01/26/24 07/31/24 History solution albuterol sulfate 90 mcg/actuation 2 puff inhalation Q4 PRN cough or 06/02/24 07/31/24 History aerosol inhaler wheeze furosemide 40 mg tablet 40 mg PO DAILY 06/02/24 07/31/24 History ondansetron HCl 4 mg tablet 4 mg PO Q8 PRN Nausea 06/02/24 07/31/24 History rifaximin 550 mg tablet (Xifaxan) 550 mg PO AMHS 06/02/24 07/31/24 History spironolactone 100 mg tablet 100 mg PO QAM 06/02/24 07/31/24 History magnesium oxide 400 mg (241.3 mg 800 mg (2 x 400 mg (241.3 mg 06/03/24 07/31/24 Rx magnesium) tablet magnesium)) PO BID 30 days #120 tabs potassium chloride 20 mEq 40 meq (2 x 20 mEq) PO TID 30 days 06/03/24 07/31/24 Rx tablet,extended release #180 tabs acamprosate 333 mg tablet,delayed See Rx Instructions .Route .COMPLEX 07/31/24 07/31/24 History release gabapentin 100 mg capsule 100 mg PO 3XD 07/31/24 07/31/24 History nicotine 14 mg/24 hr daily 1 patch topical 1XD 07/31/24 07/31/24 History transdermal patch omeprazole 40 mg capsule,delayed 40 mg PO 2XD 07/31/24 07/31/24 History release ursodiol 500 mg tablet 500 mg PO 2XD 07/31/24 07/31/24 History Past Med/Surg History Problem List (Updated 07/30/24 @ 23:30 by Trevor Sainz DO) Hypokalemia (Acute) Depression (Acute) Alcohol intoxication (Acute) Alcohol intoxication delirium with moderate or severe use disorder Intractable nausea and vomiting Pancytopenia Decompensated hepatic cirrhosis Weakness (Acute) Anemia (Acute) Cirrhosis of liver (Acute) Acute GI bleeding (Acute) Symptomatic anemia (Acute) Acute GI bleeding (Acute) Coagulopathy Shock circulatory Hematemesis Nausea & vomiting Alcoholic pancreatitis (Acute) 05/2021 treated at [facility] Abnormal CT of the abdomen Acute appendicitis with localized peritonitis Acute appendicitis (Acute) Lab test negative for COVID-19 virus (Acute) Abdominal pain Generalized anxiety disorder Alcohol use disorder Electrolyte abnormality Hyperbilirubinemia (Acute) Abdominal distention Hypokalemia Hypomagnesemia Hyponatremia Tobacco use Cirrhosis (Acute) Hyperbilirubinemia (Acute) Hypomagnesemia (Acute) Hypocalcemia (Acute) Encounter for pre-operative examination Closed rib fracture (Acute) Acute chest wall pain hx-"from a recent fall where she broke some ribs" Depression Asthma well controlled with inhalers Alcohol abuse (Acute) Anxiety ADD (attention deficit disorder) Medical History History of COVID-19 early 2019, tested thru hospital at [place], hospitalized during covid; fatigue, body aches, decreased appetite>resolved. Hemoptysis "sometimes still has this" Fall 06/2022, fx ribs VAN (acute kidney injury) hx Portal hypertension Alcoholic cirrhosis with abn coags Anemia pre-op H&H 04/15/22: 05/15 History of pancreatitis alcoholic 05/2021 per records GERD (gastroesophageal reflux disease) Pneumonia February 2022 treated at [facility]. denies sob currently Thrombocytopenia Jaundice hx-"not very much now" Acute on chronic alcoholic liver disease "currently trying to get on the transplant list" Hypokalemia Acute hyponatremia Hypomagnesemia Hyperbilirubinemia Rectal bleeding "a little when she's constipated" Alcohol abuse with withdrawal Fatty liver Alcoholic hepatitis Surgical History Hx of colonoscopy History of vascular access device 04/2022, [facility] H/O wisdom tooth extraction History of esophagogastroduodenoscopy (EGD) History of abdominal paracentesis Family History Grandmother Breast cancer Grandfather Heart disease Other No family history of adverse response to anesthesia Social History Smoking Status: Current every day smoker Tobacco Type: Cigarettes Cigarettes Per Day: 1-2; Second Hand Exposure: No; Do You Dip or Chew Tobacco: No; Hx Alcohol Use: Yes Alcohol type: hard liquor Hx Substance Use: Yes Last Used Substance: Unknown Last Used Substance Other:: 2 months Preferred Language: Brazilian 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 Ability: Effective Sales Contractor Required: No Beliefs That Will Affect Care: None marital status: Single Current Living Situation: Significant Other Current Living Situation Comment: Apartment current occupational status: employed How many Children do You have: 0 Feels Safe at Home: Yes Assistive Devices: Glasses Review of Systems Review of Systems: As per HPI, all other systems reviewed and negative Physical Exam Physical Exam: GENERAL: intoxicated, looks older than stated age, no respiratory distress SKIN: Normal color, warm HEENT: [place] palpebral conjunctivae, no ptosis, dry buccal mucosa NECK : Supple, no tenderness CHEST : CTA, no tenderness HEART : Tachycardic, no obvious murmurs ABDOMEN: distention,no tenderness EXTREMITIES : No LE swelling/tenderness, no other conspicuous deformities noted NEUROLOGIC : Coherent, no facial asymmetry, no other gross focality Results & Data Results & Data Vital Signs (Past 12 Hours) Vital Signs Temp Pulse Resp BP Pulse Ox O2 Del Method 07/30/24 22:08 36.7 C 78 16 124/77 96 Room Air Laboratory Results Laboratory Results WBC 7.22 K/ul (4.8-10.8) 07/30/24 22:15 RBC 3.83 M/uL (4.20-5.40) L 07/30/24 22:15 Hgb 12.9 g/dl (12.0-16.0) 07/30/24 22:15 Hct 36.0 % (37.0-47.0) L 07/30/24 22:15 MCV 94.0 fL (80.0-100.0) 07/30/24 22:15 MCH 33.7 pg (25.0-34.0) 07/30/24 22:15 MCHC 35.8 g/dL (32.0-36.0) 07/30/24 22:15 RDW Std Deviation 56.2 fL (36.4-46.3) H 07/30/24 22:15 RDW Coeff of Yasmine 16.2 % (11.5-14.5) H 07/30/24 22:15 Plt Count 119 K/uL (130-400) L 07/30/24 22:15 MPV 10.5 fL (9.4-12.4) 07/30/24 22:15 Immature Gran % (Auto) 0.3 % 07/30/24 22:15 Neut % (Auto) 60.5 % 07/30/24 22:15 Lymph % (Auto) 31.2 % 07/30/24 22:15 Irion % (Auto) 5.0 % 07/30/24 22:15 Eos % (Auto) 1.8 % 07/30/24 22:15 Baso % (Auto) 1.2 % 07/30/24 22:15 Neut # (Auto) 4.37 K/uL (1.40-6.50) 07/30/24 22:15 Lymph # (Auto) 2.25 K/uL (1.20-3.40) 07/30/24 22:15 Irion # (Auto) 0.36 K/uL (0.11-0.59) 07/30/24 22:15 Eos # (Auto) 0.13 K/uL (0.00-0.50) 07/30/24 22:15 Baso # (Auto) 0.09 K/uL (0.00-0.20) 07/30/24 22:15 Immature Gran # (Auto) 0.02 K/uL (0.01-0.20) 07/30/24 22:15 Sodium 140 mmol/L (136-145) 07/30/24 22:15 Potassium 3.0 mmol/L (3.5-5.1) L 07/30/24 22:15 Chloride 103 mmol/L (98-107) 07/30/24 22:15 Carbon Dioxide 25 mmol/L (21-32) 07/30/24 22:15 Anion Gap 12 (3-11) H 07/30/24 22:15 BUN 5 mg/dl (6-23) L 07/30/24 22:15 Creatinine 1.07 mg/dl (0.6-1.2) 07/30/24 22:15 Est Cr Clr Drug Dosing Not Reportable 07/30/24 22:15 eGFR 68.61 07/30/24 22:15 BUN/Creatinine Ratio 4.7 (10-20) L 07/30/24 22:15 Glucose 101 mg/dl (70-99(Fasting)) H 07/30/24 22:15 POC Glucose 104 mg/dl (70-99) H 07/30/24 22:47 Calcium 8.6 mg/dl (8.6-10.3) 07/30/24 22:15 Total Bilirubin 4.4 mg/dl (0.2-1.0) H 07/30/24 22:15 AST 94 U/L (13-39) H 07/30/24 22:15 ALT 20 U/L (7-52) 07/30/24 22:15 Alkaline Phosphatase 343 U/L (34-104) H 07/30/24 22:15 Total Protein 7.3 gm/dl (6.0-8.3) 07/30/24 22:15 Albumin 3.8 gm/dl (3.4-5.0) 07/30/24 22:15 Globulin 3.5 gm/dl (2.5-4.0) 07/30/24 22:15 Albumin/Globulin Ratio 1.1 (0.9-2) 07/30/24 22:15 TSH 4.416 uIu/ml (0.300-4.500) 07/30/24 22:15 HCG, Qual Negative (Negative) 07/30/24 22:15 Urine Color Yellow 07/30/24 22:59 Urine Appearance Cloudy (Clear) A 07/30/24 22:59 Urine pH 6.5 (4.5-7.5) 07/30/24 22:59 Ur Specific [place] 1.006 (1.000-1.030) 07/30/24 22:59 Urine Protein Negative (Negative) 07/30/24 22:59 Urine Glucose (UA) Negative (Negative) 07/30/24 22:59 Urine Ketones Negative (Negative) 07/30/24 22:59 Urine Blood Trace (Negative) H 07/30/24 22:59 Urine Nitrite Negative (Negative) 07/30/24 22:59 Urine Bilirubin Negative (Negative) 07/30/24 22:59 Urine Urobilinogen Negative (Negative) 07/30/24 22:59 Ur Leukocyte Esterase Trace (Negative) H 07/30/24 22:59 Urine WBC (Auto) 6-10 /hpf (0-5) H 07/30/24 22:59 Urine RBC (Auto) 0-2 /hpf (0-2) 07/30/24 22:59 U Hyaline Cast (Auto) 0-2 /lpf (0-2) 07/30/24 22:59 U Epithel Cells (Auto) >20 /hpf (0-2) H 07/30/24 22:59 Urine Bacteria (Auto) 2+ (None Seen) H 07/30/24 22:59 Salicylates < 3.0 mg/dl (3.0-30) L 07/30/24 22:15 Urine Opiates Screen Neg (Neg) 07/30/24 22:59 Ur Methadone, Qual Neg (Neg) 07/30/24 22:59 Urine Fentanyl Screen Neg (Neg) 07/30/24 22:59 Acetaminophen < 3 ug/ml (10-30) L 07/30/24 22:15 Urine Barbiturates Pos (Neg) H 07/30/24 22:59 Ur Phencyclidine (PCP) Neg (Neg) 07/30/24 22:59 U Amphetamin/Meth Scrn Neg (Neg) 07/30/24 22:59 MDMA (Ecstasy) Screen Neg (Neg) 07/30/24 22:59 U Benzodiazepines Scrn Neg (Neg) 07/30/24 22:59 Ur Cocaine Metabolite Neg (Neg) 07/30/24 22:59 U Marijuana (THC) Screen Pos (Neg) H 07/30/24 22:59 Ethyl Alcohol mg/dL 473.3 mg/dl (<10.0) H 07/30/24 22:15 SARS-CoV-2, RNA, NAAT NEGATIVE (NEGATIVE) 07/30/24 22:30
[2024-07-31 00:04] LABS: INR 1.1 (0.9-1.1); Prothrombin Time 11.9 Seconds (9.0-12.0)
[2024-07-31] MEDS: LORazepam 2 MG/1 ML VIAL IV PRN (00:05)
[2024-07-31 00:09] LABS: Magnesium 1.6 mg/dl (1.7-2.4)
[2024-07-31] MEDS: LORazepam 1 MG TAB PO STA (00:14)
[2024-07-31] MEDS ORDERED: NICOTINE POLACRILEX 2 MG GUM MT PRN (00:31)
[2024-07-31] MEDS ORDERED: oxyCODONE HCL IR 5 MG TAB (IMMEDIATE RELEASE) PO PRN (00:33)
[2024-07-31] MEDS ORDERED: ACETAMINOPHEN 500 MG TAB PO PRN (00:33)
[2024-07-31] MEDS: THIAMINE HCL 100 MG in SYRINGE 9 ML IV STA (00:59)
[2024-07-31] MEDS: POTASSIUM CHLORIDE 20 MEQ in LACTATED RINGER'S 1,000 ML IV SCH (01:00)
[2024-07-31] MEDS: MAGNESIUM SULFATE / D5W 1 GM/100 ML BAG IV ONE ×2 (01:00→14:16)
[2024-07-31] MEDS: POTASSIUM CHLORIDE 10 MEQ TABCR PO STA (01:10)
[2024-07-31] MEDS: POTASSIUM CHLORIDE CRTAB 20 MEQ TABCR PO ONE (03:18)
[2024-07-31 07:44] LABS: Basophils # (auto) 0.05 K/uL (0.00-0.20); Basophils % (auto) 1.1 %; Eosinophils # (auto) 0.13 K/uL (0.00-0.50); Eosinophils % (auto) 2.9 %; Hematocrit (blood only) 29.8 % (37.0-47.0); Hemoglobin 10.4 g/dl (12.0-16.0); Immature Granulocytes # (auto) 0.01 K/uL (0.01-0.20); Immature Granulocytes % (auto) 0.2 %; Lymphocytes # (auto) 1.33 K/uL (1.20-3.40); Lymphocytes % (auto) 30.1 %; Mean Corpuscular Hemoglobin 32.4 pg (25.0-34.0); Mean Corpuscular Hgb Conc 34.9 g/dL (32.0-36.0); Mean Corpuscular Volume 92.8 fL (80.0-100.0); Mean Platelet Volume 9.1 fL (9.4-12.4); Monocytes # (auto) 0.24 K/uL (0.11-0.59); Monocytes % (auto) 5.4 %; Neutrophils # (auto) 2.66 K/uL (1.40-6.50); Neutrophils % (auto) 60.3 %; Platelet Count 71 K/uL (130-400); RDW Standard Deviation 54.7 fL (36.4-46.3); Red Blood Count 3.21 M/uL (4.20-5.40); White Blood Count 4.42 K/ul (4.8-10.8)
[2024-07-31 08:00] LABS: Alanine Aminotransferase 17 U/L (7-52); Albumin Globulin Ratio 1.1 (0.9-2); Albumin Level 3.2 gm/dl (3.4-5.0); Alkaline Phosphatase 271 U/L (34-104); Anion Gap 12 (3-11); Aspartate Aminotransferase 79 U/L (13-39); BUN Creatinine Ratio 7.1 (10-20); Bilirubin,Total 3.3 mg/dl (0.2-1.0); Blood Urea Nitrogen 6 mg/dl (6-23); Calcium 7.9 mg/dl (8.6-10.3); Carbon Dioxide 24 mmol/L (21-32); Chloride 106 mmol/L (98-107); Glucose 75 mg/dl (70-99(Fasting)); Magnesium 1.7 mg/dl (1.7-2.4); Potassium 3.2 mmol/L (3.5-5.1); Sodium 142 mmol/L (136-145); Total Protein 6.2 gm/dl (6.0-8.3)
[2024-07-31] MEDS: LORazepam 0.5 MG TAB PO PRN (09:56)
[2024-07-31] MEDS: FLUTICASONE/VILANTEROL 200/25MCG 14 PUFFS/INHALER INH SCH (09:56)
[2024-07-31] MEDS: FOLIC ACID 1 MG TAB PO SCH (09:57)
[2024-07-31] MEDS: LORATADINE 10 MG TAB PO SCH (09:57)
[2024-07-31] MEDS: MULTIVITAMIN TAB PO SCH (09:57)
[2024-07-31] MEDS: MAGNESIUM OXIDE 400 MG TAB PO SCH (09:57)
[2024-07-31] MEDS: POTASSIUM CHLORIDE CRTAB 20 MEQ TABCR PO SCH (09:57)
[2024-07-31] MEDS: rifAXIMin 550 MG TABLET PO SCH (09:58)
[2024-07-31] MEDS: PANTOprazole 40 MG TAB PO SCH (09:58)
[2024-07-31] MEDS: LACTULOSE SYRUP 10 GM/15 ML BTL 960 ML PO SCH (09:58)
[2024-07-31] MEDS: PROMETHAZINE 6.25 MG/50.25 ML BAG IV PRN (11:28)
[2024-07-31] MEDS ORDERED: GABAPENTIN 600MG ALCOHOL WITHDRAWAL LOAD PO SCH (11:30)
--- NOTE | 2024-07-31 11:30 | Hospitalist Progress Note ---
Date of Service July 31, 2024 Assessment & Plan (1) Hypokalemia: Plan: Secondary to home diuretic Rx History of alcoholic cirrhosis Medical telemetry Replace electrolytes replace K and monitor IVF, resume home diuretic Rx once patient euvolemic Suicidal ideations Psychiatry consulted and discussed with Suicide precautions Etoh abuse, Etoh withdrawal - intoxicated in the ED - alcohol level on admission 473 - pt reportedly drinks liquor daily - placed on gabapentin withdrawal protocol and iv prn ativan Alcoholic hepatitis, good prognosis with Madrey's DF score of 3.9 points portal hypertension status post TIPS prolactinoma, medical management contemplated as per [facility] [place] neuroendocrine note from 3 months ago ADD, on Adderall asthma, stable anxiety disorder ongoing tobacco/alcohol abuse, Nicotine replacement therapy as needed DVT prophylaxis. SCDs Re: Thrombocytopenia Full code Patient's mother - Ms. Sayra Burr, contact #[phone]. Admission and Anticipated Discharge Date Admission Date: July 30, 2024 Subjective Pt seen in follow up of SI, etoh abuse, etoh withdrawal Currently laying in bed in NAD Denies any fevers chills chest pain shortness of breath, palpitations, Denies abdominal pain nausea or vomiting She is tachycardic Discussed with RN, patient received Ativan Patient reports that her mother and boyfriend called police on her because she was drinking. She denies any SI. She reports working with liver transplant team, and when questioned If she wants to be considered for transplant, she reported yes - If it was going to prolong her life. I discussed her drinking - As this would certainly prevent her from being considered for transplant, she reported that she knows that and that many people already told her that and was upset about the conversation. Psychiatry consulted and discussed with. Alcohol withdrawal protocol with gabapentin and as needed Ativan ordered. Review of Systems Review of Systems: All systems reviewed & are unremarkable except as noted in Subjective Physical Exam Physical Exam: GENERAL: young F WD/WN in NAD HEEN T: NC/AT, EOMI N SYED : Supple CHES T : CTA, no tender ness HEART : Tach ycardic, no obviou s murmurs ABDOMEN : soft, distentio n,no tenderness E XTREMITIES : No LE swelling/tenderne ss, moves extremit ies NEUROLOGIC : awake, alert, no f acial asymmetry, a ble to answer simp le questions, move s extremities SKI N: warm, dry Results & Data Results & Data Vital Signs (Past 12 Hours) Vital Signs Temp Pulse Pulse Pulse Resp BP BP 07/31/24 11:20 36.7 C 102 H 18 106/61 07/31/24 09:40 07/31/24 08:28 36.7 C 100 H 20 115/72 07/31/24 07:36 36.6 C 98 H 15 98/54 L 07/31/24 07:05 82 07/31/24 05:53 07/31/24 05:53 91 H 14 94/50 L 07/31/24 01:59 80 07/31/24 01:07 82 07/31/24 01:00 78 18 07/31/24 00:00 36.6 C 103 H 18 116/70 Pulse Ox Pulse Ox O2 Del Method O2 Del Method 07/31/24 11:20 99 Room Air 07/31/24 09:40 Room Air 07/31/24 08:28 97 Room Air 07/31/24 07:36 97 Room Air 07/31/24 07:05 07/31/24 05:53 93 Room Air 07/31/24 05:53 93 Room Air 07/31/24 01:59 07/31/24 01:07 07/31/24 01:00 95 Room Air 07/31/24 00:00 95 Room Air Laboratory Results 07/31/24 07/31/24 07/30/24 Range/Units 11:12 07:24 22:59 WBC 4.42 L (4.8-10.8) K/ul RBC 3.21 L (4.20-5.40) M/uL Hgb 10.4 L (12.0-16.0) g/dl Hct 29.8 L (37.0-47.0) % MCV 92.8 (80.0-100.0) fL MCH 32.4 (25.0-34.0) pg MCHC 34.9 (32.0-36.0) g/dL RDW Std Deviation 54.7 H (36.4-46.3) fL RDW Coeff of Yasmine 16.0 H (11.5-14.5) % Plt Count 71 L (130-400) K/uL MPV 9.1 L (9.4-12.4) fL Immature Gran % (Auto) 0.2 % Neut % (Auto) 60.3 % Lymph % (Auto) 30.1 % [place] % (Auto) 5.4 % Eos % (Auto) 2.9 % Baso % (Auto) 1.1 % Neut # (Auto) 2.66 (1.40-6.50) K/uL Lymph # (Auto) 1.33 (1.20-3.40) K/uL [place] # (Auto) 0.24 (0.11-0.59) K/uL Eos # (Auto) 0.13 (0.00-0.50) K/uL Baso # (Auto) 0.05 (0.00-0.20) K/uL Immature Gran # (Auto) 0.01 (0.01-0.20) K/uL PT (9.0-12.0) Seconds INR (0.9-1.1) Sodium 142 (136-145) mmol/L Potassium 3.2 L (3.5-5.1) mmol/L Chloride 106 (98-107) mmol/L Carbon Dioxide 24 (21-32) mmol/L Anion Gap 12 H (3-11) BUN 6 (6-23) mg/dl Creatinine 0.84 (0.6-1.2) mg/dl Est Cr Clr Drug Dosing Not Reportable eGFR 91.73 BUN/Creatinine Ratio 7.1 L (10-20) Glucose 75 (70-99(Fasting)) mg/dl POC Glucose 140 H (70-99) mg/dl Calcium 7.9 L (8.6-10.3) mg/dl Magnesium 1.7 (1.7-2.4) mg/dl Total Bilirubin 3.3 H (0.2-1.0) mg/dl AST 79 H (13-39) U/L ALT 17 (7-52) U/L Alkaline Phosphatase 271 H (34-104) U/L Total Protein 6.2 (6.0-8.3) gm/dl Albumin 3.2 L (3.4-5.0) gm/dl Globulin 3.0 (2.5-4.0) gm/dl Albumin/Globulin Ratio 1.1 (0.9-2) TSH (0.300-4.500) uIu/ml HCG, Qual (Negative) Urine Color Yellow Urine Appearance Cloudy A (Clear) Urine pH 6.5 (4.5-7.5) Ur Specific [place] 1.006 (1.000-1.030) Urine Protein Negative (Negative) Urine Glucose (UA) Negative (Negative) Urine Ketones Negative (Negative) Urine Blood Trace H (Negative) Urine Nitrite Negative (Negative) Urine Bilirubin Negative (Negative) Urine Urobilinogen Negative (Negative) Ur Leukocyte Esterase Trace H (Negative) Urine WBC (Auto) 6-10 H (0-5) /hpf Urine RBC (Auto) 0-2 (0-2) /hpf U Hyaline Cast (Auto) 0-2 (0-2) /lpf U Epithel Cells (Auto) >20 H (0-2) /hpf Urine Bacteria (Auto) 2+ H (None Seen) Urine Butalbital Pending Salicylates (3.0-30) mg/dl Urine Opiates Screen Neg (Neg) Ur Methadone, Qual Neg (Neg) Urine Fentanyl Screen Neg (Neg) Acetaminophen (10-30) ug/ml Urine Barbiturates Pos H (Neg) Ur Phencyclidine (PCP) Neg (Neg) U Amphetamin/Meth Scrn Neg (Neg) MDMA (Ecstasy) Screen Neg (Neg) Urine Amobarbital Pending Urine Pentobarbital Pending Urine Phenobarbital Pending Urine Secobarbital Pending U Benzodiazepines Scrn Neg (Neg) Ur Cocaine Metabolite Neg (Neg) U Marijuana (THC) Screen Pos H (Neg) U Marijuana THC Carboxy Pending Drug Screen Comment Pending Ethyl Alcohol mg/dL (<10.0) mg/dl SARS-CoV-2, RNA, NAAT (NEGATIVE) 07/30/24 07/30/24 07/30/24 Range/Units 22:47 22:30 22:15 WBC 7.22 (4.8-10.8) K/ul RBC 3.83 L (4.20-5.40) M/uL Hgb 12.9 (12.0-16.0) g/dl Hct 36.0 L (37.0-47.0) % MCV 94.0 (80.0-100.0) fL MCH 33.7 (25.0-34.0) pg MCHC 35.8 (32.0-36.0) g/dL RDW Std Deviation 56.2 H (36.4-46.3) fL RDW Coeff of Yasmine 16.2 H (11.5-14.5) % Plt Count 119 L (130-400) K/uL MPV 10.5 (9.4-12.4) fL Immature Gran % (Auto) 0.3 % Neut % (Auto) 60.5 % Lymph % (Auto) 31.2 % [place] % (Auto) 5.0 % Eos % (Auto) 1.8 % Baso % (Auto) 1.2 % Neut # (Auto) 4.37 (1.40-6.50) K/uL Lymph # (Auto) 2.25 (1.20-3.40) K/uL [place] # (Auto) 0.36 (0.11-0.59) K/uL Eos # (Auto) 0.13 (0.00-0.50) K/uL Baso # (Auto) 0.09 (0.00-0.20) K/uL Immature Gran # (Auto) 0.02 (0.01-0.20) K/uL PT 11.9 (9.0-12.0) Seconds INR 1.1 (0.9-1.1) Sodium 140 (136-145) mmol/L Potassium 3.0 L (3.5-5.1) mmol/L Chloride 103 (98-107) mmol/L Carbon Dioxide 25 (21-32) mmol/L Anion Gap 12 H (3-11) BUN 5 L (6-23) mg/dl Creatinine 1.07 (0.6-1.2) mg/dl Est Cr Clr Drug Dosing Not Reportable eGFR 68.61 BUN/Creatinine Ratio 4.7 L (10-20) Glucose 101 H (70-99(Fasting)) mg/dl POC Glucose 104 H (70-99) mg/dl Calcium 8.6 (8.6-10.3) mg/dl Magnesium 1.6 L (1.7-2.4) mg/dl Total Bilirubin 4.4 H (0.2-1.0) mg/dl AST 94 H (13-39) U/L ALT 20 (7-52) U/L Alkaline Phosphatase 343 H (34-104) U/L Total Protein 7.3 (6.0-8.3) gm/dl Albumin 3.8 (3.4-5.0) gm/dl Globulin 3.5 (2.5-4.0) gm/dl Albumin/Globulin Ratio 1.1 (0.9-2) TSH 4.416 (0.300-4.500) uIu/ml HCG, Qual Negative (Negative) Urine Color Urine Appearance (Clear) Urine pH (4.5-7.5) Ur Specific [place] (1.000-1.030) Urine Protein (Negative) Urine Glucose (UA) (Negative) Urine Ketones (Negative) Urine Blood (Negative) Urine Nitrite (Negative) Urine Bilirubin (Negative) Urine Urobilinogen (Negative) Ur Leukocyte Esterase (Negative) Urine WBC (Auto) (0-5) /hpf Urine RBC (Auto) (0-2) /hpf U Hyaline Cast (Auto) (0-2) /lpf U Epithel Cells (Auto) (0-2) /hpf Urine Bacteria (Auto) (None Seen) Urine Butalbital Salicylates < 3.0 L (3.0-30) mg/dl Urine Opiates Screen (Neg) Ur Methadone, Qual (Neg) Urine Fentanyl Screen (Neg) Acetaminophen < 3 L (10-30) ug/ml Urine Barbiturates (Neg) Ur Phencyclidine (PCP) (Neg) U Amphetamin/Meth Scrn (Neg) MDMA (Ecstasy) Screen (Neg) Urine Amobarbital Urine Pentobarbital Urine Phenobarbital Urine Secobarbital U Benzodiazepines Scrn (Neg) Ur Cocaine Metabolite (Neg) U Marijuana (THC) Screen (Neg) U Marijuana THC Carboxy Drug Screen Comment Ethyl Alcohol mg/dL 473.3 H (<10.0) mg/dl SARS-CoV-2, RNA, NAAT NEGATIVE (NEGATIVE) Medications Administered Current Inpatient Medications Acetaminophen (Acetaminophen 500 Mg Tab) 500 mg PO Q6H PRN PRN Reason: fever/pain Stop: 08/30/24 00:32 Amphetamine/Dextroamphetamine (Dextroamphetamine/Amphetamime Ir 5 Mg Tab) 5 mg PO BID@0900,1600 JUAN Stop: 08/14/24 08:59 Last Admin: 07/31/24 11:33 Dose: Not Given Diclofenac Sodium (Diclofenac Sod 1% Gel 100 Gm Tube) 4 gm EXT TID PRN; Protocol PRN Reason: Pain Stop: 08/30/24 00:46 Fluticasone/Vilanterol (Fluticasone/Vilanterol 200/25mcg 14 Puffs/Inhaler) 1 puffs INH DAILY [facility]; Protocol Stop: 08/30/24 08:59 Last Admin: 07/31/24 09:56 Dose: 1 puffs Folic Acid (Folic Acid 1 Mg Tab) 1 mg PO QAM [facility] Stop: 08/30/24 08:59 Last Admin: 07/31/24 09:57 Dose: 1 mg Gabapentin (Gabapentin 100 Mg Cap) 100 mg PO Q6H [facility] Stop: 07/31/24 23:31 Gabapentin (Gabapentin 600 Mg Tab) 600 mg PO Q24H [facility] Stop: 08/01/24 23:31 Gabapentin (Gabapentin 400 Mg Cap) 400 mg PO Q24H [facility] Stop: 08/02/24 23:31 Gabapentin (Gabapentin 100 Mg Cap) 200 mg PO Q24H [facility] Stop: 08/03/24 23:31 Potassium Chloride 20 meq/ (Lactated Ringer's) 1,010 mls @ 60 mls/hr IV .[id number] [facility] Stop: 08/01/24 00:44 Last Admin: 07/31/24 01:00 Dose: 60 mls/hr Promethazine HCl (Phenergan) 6.25 mg in 50.25 mls @ 201 mls/hr IV Q6H PRN PRN Reason: Nausea And Vomiting Stop: 08/30/24 00:32 Last Admin: 07/31/24 11:28 Dose: 201 mls/hr Thiamine HCl 100 mg/ Syringe 10 mls @ 2 mls/min IV [id number] Stop: 08/31/24 08:59 Lactulose (Lactulose Syrup 10 Gm/15 Ml Btl 960 Ml) 10 gm PO QID [facility] Stop: 08/30/24 08:59 Last Admin: 07/31/24 09:58 Dose: 10 gm Loratadine (Loratadine 10 Mg Tab) 10 mg PO QAM [facility] Stop: 08/30/24 08:59 Last Admin: 07/31/24 09:57 Dose: 10 mg Lorazepam (Lorazepam 0.5 Mg Tab) 0.5 mg PO TID PRN PRN Reason: Anxiety Stop: 08/30/24 00:32 Last Admin: 07/31/24 09:56 Dose: 0.5 mg Lorazepam (Lorazepam 2 Mg/1 Ml Vial) 1 mg IV UD PRN; Protocol PRN Reason: EtOH Withdrawal AWSS Score 6,7 Stop: 08/30/24 11:37 Lorazepam (Lorazepam 2 Mg/1 Ml Vial) 2 mg IV UD PRN; Protocol PRN Reason: EtOH Withdrawal AWSS Score 8,9 Stop: 08/30/24 11:37 Lorazepam (Lorazepam 2 Mg/1 Ml Vial) 3 mg IV ONCE PRN; Protocol PRN Reason: EtOH Withdrawal AWSS Score 10+ Magnesium Oxide (Magnesium Oxide 400 Mg Tab) 800 mg PO BID JUAN Stop: 08/30/24 08:59 Last Admin: 07/31/24 09:57 Dose: 800 mg Miscellaneous (Acamprosate 333 Mg - Order Awaiting Action) 1 each N/A QS JUAN Stop: 08/30/24 07:59 Last Admin: 07/31/24 08:50 Dose: Not Given Miscellaneous (Ursodiol 500 Mg - Order Awaiting Action) 1 each N/A QS JUAN Stop: 08/30/24 07:59 Last Admin: 07/31/24 08:50 Dose: Not Given Montelukast Sodium (Montelukast Sodium 10 Mg Tablet) 10 mg PO HS JUAN Stop: 08/30/24 20:59 Multivitamins (Multivitamin Tab) 1 tab PO QAM JUAN Stop: 08/30/24 08:59 Last Admin: 07/31/24 09:57 Dose: 1 tab Nicotine Polacrilex (Nicotine Polacrilex 2 Mg Gum) 1 piece MT PRN PRN PRN Reason: smoking urge Stop: 08/30/24 00:30 Oxycodone HCl (Oxycodone Hcl Ir 5 Mg Tab (Immediate Release)) 5 mg PO Q4H PRN PRN Reason: Pain Stop: 08/14/24 00:32 Pantoprazole Sodium (Pantoprazole 40 Mg Tab) 40 mg PO BID JUAN Stop: 08/30/24 08:59 Last Admin: 07/31/24 09:58 Dose: 40 mg Potassium Chloride (Potassium Chloride Crtab 20 Meq Tabcr) 40 meq PO TID JUAN Stop: 08/30/24 08:59 Last Admin: 07/31/24 09:57 Dose: 40 meq Rifaximin (Rifaximin 550 Mg Tablet) 550 mg PO BID JUAN Stop: 08/30/24 08:59 Last Admin: 07/31/24 09:58 Dose: 550 mg
[2024-07-31] MEDS: DEXTROAMPHETAMINE/AMPHETAMIME IR 5 MG TAB PO SCH (11:33)
[2024-07-31] MEDS ORDERED: Ativan IV Alcohol Withdrawal--Active Protocol IV PRN (11:38)
[2024-07-31] MEDS ORDERED: LORazepam 2 MG/1 ML VIAL IV PRN ×2 (11:38)
--- NOTE | 2024-07-31 11:46 | Psychiatric Consultation ---
Date of Consultation July 31, 2024 Impression / Recommendations Impression Diagnostically consistent with unspecified mood disorder suspect combination of major depressive disorder and alcohol-induced depression. While today she is denying suicidal ideation she appears to be significantly minimizing recent history, statements and current symptoms and despite denying making any of these statements presents as severely depressed during our interview and unable to tolerate attempts to engage in safety planning or options for additional supports in a less restrictive setting. Given reported statements made to her boyfriend and mother about suicidal ideation with plan to drink herself to & acting on this by drinking large quantities of hard liquor, wanting to say goodbye to family, collateral from boyfriend noting recent escalating symptoms of depression with statements of hopelessness & worthlessness, difficulty naming reasons for living or interests concerning for anhedonia & lack of future- orientation, inability to engage in any safety plan discussions, and recent distressing news of not being eligible for a liver transplant she is deemed at ongoing high risk of suicide and felt to meet 302 commitment criteria. The patient is hospitalized on a completed 302 involuntary commitment, which if not extended, will on 08/04/2024 at 2214. This patient must remain on safety precautions with a 1-on-1 and is unable to leave the hospital AMA. Overall, I spent a total of 60 minutes with this case including review of chart records, review of labwork, direct evaluation of the patient at bedside, counseling the patient, discussion of the patient with the Nurse and with the hospitalist provider, discussion with the psychiatric liason during clinical rounds, review of collateral historian information from the family and document ation in the electronic health record. 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: (3) Alcohol use disorder, severe, dependence: (4) Hypokalemia: (5) Decompensated hepatic cirrhosis: (6) Depression with suicidal ideation: Plan -On completed 302 commitment, must remain on 1-on-1, cannot leave AMA -Continue suicide precautions -AWSS with ativan for scoring, thiamine, folic acid; consider gabapentin as well for further seizure prevention -For behavioral emergency: ativan 1mg IV or IM q6h prn -Will consider antidepressant options once risk for seizures in acute withdrawal lessens and as she is hopefully willing to consider treatment options Psych History Identifying Data 39 yo woman with a history of alcoholic cirrhosis, portal hypertension status post TIPS, prolactinoma, ADD, asthma, anxiety disorder, cervical dysplasia admitted medically on a 302 warrant for suicidal statements and intoxication and hypokalemia. Psychiatry consulted for risk assessment, assessment of 302. Chief Complaint "I want to go home". History of Present Illness Kathie was brought to the hospital via police and presented with intoxication and after making statements of suicide to her boyfriend and mother. She was placed on a 302 warrant after she demanded to leave and concerns remained about her safety. She was unable to be assessed for 302 commitment in the ED due to her level of intoxication and was admitted medically on 302 warrant. 302 petitioning statements made by ED CM and patient's boyfriend. Patient's boyfriend described that Kathie has been making statements of feeling worthless and hopeless and that she is going to drink herself to with alcohol. She asked her boyfriend to call her mother so that she could say goodbye as she considers this likely given her end-stage liver disease and recent worsening of her medical status with seizures. She was apparently taken off the transplant li st at [facility] recently. Today at 10:05am she was alert and oriented x4 with the nurse and evaluated shortly after by me around 10:30am and she remained A&Ox4, was no longer showing symptoms of acute intoxication, and able to be assessed for 302 commitment criteria. She presents with poor eye contact, flat and depressed affect and significant irritability. She states her desire to go home and denies having ever made statements regarding depression or suicide. However, she then struggles to describe any reasons for living, becomes very irritable with questions, and struggles to speak to any interests or future desires. She is not interested in any outpatient supports or attempts to consider alternative treatment options or supports due to concern for her depression with hopelessness. Describes ongoing alcohol use of "however much I want to" typically 15-20 bottles of 50ml, 99 apples schnapps per day. She denies any history of inpatient psychiatric treatment, denies past attempts, no access to guns, two prior residential substance use tx stays (did not complete them), no current therapist, no current medications, past use of Campral (she reports taking this currently but last script not filled since February). Allergies Allergy/AdvReac Type Severity Reaction Status Date / Time banana Allergy Intermediate RASH, Verified 06/02/24 22:41 THROAT SLIGHTLY SWOLLEN Penicillins Allergy Unknown HAPPENED Verified 06/02/24 22:41 A CHILD Home Medications Medication Instructions Recorded Confirmed Type budesonide-formoterol HFA 160 2 puff inhalation BID 06/20/21 07/31/24 History mcg-4.5 mcg/actuation aerosol inhaler (Symbicort) dextroamphetamine-amphetamine 5 mg 5 mg PO AMPM 06/20/21 07/31/24 History tablet (Adderall) loratadine 10 mg tablet 10 mg PO QAM 06/20/21 07/31/24 History montelukast 10 mg tablet 10 mg PO HS 06/20/21 07/31/24 History fluticasone propionate 50 2 spray intranasal QAM PRN 10/03/21 07/31/24 History mcg/actuation nasal allergies spray,suspension multivitamin 1 tab PO QAM 10/03/21 07/31/24 History ascorbic acid (vitamin C) 500 mg 500 mg PO QAM 01/31/22 07/31/24 History tablet (Vitamin C) cholecalciferol (vitamin D3) 50 50 mcg PO QAM 01/31/22 07/31/24 History mcg (2,000 unit) capsule (Vitamin D3) diclofenac sodium 1 % topical gel 4 g topical TID PRN Pain 10/14/22 07/31/24 History (Voltaren Arthritis Pain) metoclopramide HCl 10 mg tablet 10 mg PO AMHS PRN Nausea 01/07/23 07/31/24 History folic acid 1 mg tablet 1 mg PO QAM 09/16/23 07/31/24 History promethazine 12.5 mg tablet 12.5 mg PO Q6 PRN Nausea 09/16/23 07/31/24 History lactulose 10 gram/15 mL oral 10 g PO QID 01/26/24 07/31/24 History solution albuterol sulfate 90 mcg/actuation 2 puff inhalation Q4 PRN cough or 06/02/24 07/31/24 History aerosol inhaler wheeze furosemide 40 mg tablet 40 mg PO DAILY 06/02/24 07/31/24 History ondansetron HCl 4 mg tablet 4 mg PO Q8 PRN Nausea 06/02/24 07/31/24 History rifaximin 550 mg tablet (Xifaxan) 550 mg PO AMHS 06/02/24 07/31/24 History spironolactone 100 mg tablet 100 mg PO QAM 06/02/24 07/31/24 History magnesium oxide 400 mg (241.3 mg 800 mg (2 x 400 mg (241.3 mg 06/03/24 07/31/24 Rx magnesium) tablet magnesium)) PO BID 30 days #120 tabs potassium chloride 20 mEq 40 meq (2 x 20 mEq) PO TID 30 days 06/03/24 07/31/24 Rx tablet,extended release #180 tabs acamprosate 333 mg tablet,delayed See Rx Instructions .Route .COMPLEX 07/31/24 07/31/24 History release gabapentin 100 mg capsule 100 mg PO 3XD 07/31/24 07/31/24 History nicotine 14 mg/24 hr daily 1 patch topical 1XD 07/31/24 07/31/24 History transdermal patch omeprazole 40 mg capsule,delayed 40 mg PO 2XD 07/31/24 07/31/24 History release ursodiol 500 mg tablet 500 mg PO 2XD 07/31/24 07/31/24 History Patient History Medical History History of COVID-19 early 2019, tested thru hospital at [place], hospitalized during covid; fatigue, body aches, decreased appetite>resolved. Hemoptysis "sometimes still has this" Fall 06/2022, fx ribs VAN (acute kidney injury) hx Portal hypertension Alcoholic cirrhosis with abn coags Anemia pre-op H&H 04/15/22: 05/15 History of pancreatitis alcoholic 05/2021 per records GERD (gastroesophageal reflux disease) Pneumonia February 2022 treated at [facility]. denies sob currently Thrombocytopenia Jaundice hx-"not very much now" Acute on chronic alcoholic liver disease "currently trying to get on the transplant list" Hypokalemia Acute hyponatremia Hypomagnesemia Hyperbilirubinemia Rectal bleeding "a little when she's constipated" Alcohol abuse with withdrawal Fatty liver Alcoholic hepatitis Surgical History Hx of colonoscopy History of vascular access device 04/2022, [facility] H/O wisdom tooth extraction History of esophagogastroduodenoscopy (EGD) History of abdominal paracentesis Family History Grandmother Breast cancer Grandfather Heart disease Other No family history of adverse response to anesthesia Social History Smoking Status: Current some day smoker Tobacco Type: Cigarettes Cigarettes Per Day: 1-2; Second Hand Exposure: No; Do You Dip or Chew Tobacco: No; Hx Alcohol Use: Yes Alcohol type: hard liquor Hx Substance Use: Yes Last Used Substance: Days (ago) Last Used Substance Other:: 07/30/2024 Preferred Language: Uzbek 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 Ability: Effective Traffic Control Technician Required: No Beliefs That Will Affect Care: None marital status: Single Current Living Situation: Significant Other Current Living Situation Comment: Apartment current occupational status: employed How many Children do You have: 0 Feels Safe at Home: Yes Safety Concerns: Feels Safe At This Time Assistive Devices: Glasses Physical Exam Psychiatric: Orientation: alert and oriented x 3 Apperance: appropriately dressed and + disheveled Eye Contact: + poor eye contact Motor Behavior: no abnormal motor movements Speech: + loud speech and normal rate/rhythm/volume of speech Affect: + depressed affect and + flat affect Mood: + irritable mood Thought Process: + concrete thought process Thought Content: reality based without delusions Suicidal Thoughts: denies suicidal thoughts (but reportedly making statements to boyfriend and mother last evening) Homicidal Thoughts: denies homicidal thoughts Hallucinations: no auditory hallucinations and no visual hallucinations Cognition: attention grossly intact and language grossly intact Insight: + poor insight Judgment: + poor judgement Vital Signs (Past 24 Hours): Last Vital Signs Temp 36.7 C 07/31/24 11:20 Pulse 102 H 07/31/24 11:20 Resp 18 07/31/24 11:20 BP 106/61 07/31/24 11:20 Pulse Ox 99 07/31/24 11:20 O2 Del Method Room Air 07/31/24 11:20 Results & Data (PSY) Medications Administered Amphetamine/Dextroamphetamine (Dextroamphetamine/Amphetamime Ir 5 Mg Tab) 5 mg PO BID@0900,1600 JUAN Stop: 08/14/24 08:59 Last Admin: 07/31/24 11:33 Dose: Not Given Documented By: TMP Fluticasone/Vilanterol (Fluticasone/Vilanterol 200/25mcg 14 Puffs/Inhaler) 1 puffs INH DAILY [facility]; Protocol Stop: 08/30/24 08:59 Last Admin: 07/31/24 09:56 Dose: 1 puffs Documented By: TMP Folic Acid (Folic Acid 1 Mg Tab) 1 mg PO QAM [facility] Stop: 08/30/24 08:59 Last Admin: 07/31/24 09:57 Dose: 1 mg Documented By: TMP Potassium Chloride 20 meq/ (Lactated Ringer's) 1,010 mls @ 60 mls/hr IV .[id number] [facility] Stop: 08/01/24 00:44 Last Admin: 07/31/24 01:00 Dose: 60 mls/hr Documented By: HB Promethazine HCl (Phenergan) 6.25 mg in 50.25 mls @ 201 mls/hr IV Q6H PRN PRN Reason: Nausea And Vomiting Stop: 08/30/24 00:32 Last Admin: 07/31/24 11:28 Dose: 201 mls/hr Documented By: TMP Lactulose (Lactulose Syrup 10 Gm/15 Ml Btl 960 Ml) 10 gm PO QID [facility] Stop: 08/30/24 08:59 Last Admin: 07/31/24 09:58 Dose: 10 gm Documented By: TMP Loratadine (Loratadine 10 Mg Tab) 10 mg PO QAM [facility] Stop: 08/30/24 08:59 Last Admin: 07/31/24 09:57 Dose: 10 mg Documented By: TMP Lorazepam (Lorazepam 0.5 Mg Tab) 0.5 mg PO TID PRN PRN Reason: Anxiety Stop: 08/30/24 00:32 Last Admin: 07/31/24 09:56 Dose: 0.5 mg Documented By: TMP Magnesium Oxide (Magnesium Oxide 400 Mg Tab) 800 mg PO BID [facility] Stop: 08/30/24 08:59 Last Admin: 07/31/24 09:57 Dose: 800 mg Documented By: TMP Miscellaneous (Acamprosate 333 Mg - Order Awaiting Action) 1 each N/A QS [facility] Stop: 08/30/24 07:59 Last Admin: 07/31/24 08:50 Dose: Not Given Documented By: TMP Miscellaneous (Ursodiol 500 Mg - Order Awaiting Action) 1 each N/A QS JUAN Stop: 08/30/24 07:59 Last Admin: 07/31/24 08:50 Dose: Not Given Documented By: TMP Multivitamins (Multivitamin Tab) 1 tab PO QAM [facility]UAN Stop: 08/30/24 08:59 Last Admin: 07/31/24 09:57 Dose: 1 tab Documented By: TMP Pantoprazole Sodium (Pantoprazole 40 Mg Tab) 40 mg PO BID JUAN Stop: 08/30/24 08:59 Last Admin: 07/31/24 09:58 Dose: 40 mg Documented By: TMP Potassium Chloride (Potassium Chloride Crtab 20 Meq Tabcr) 40 meq PO TID JUAN Stop: 08/30/24 08:59 Last Admin: 07/31/24 09:57 Dose: 40 meq Documented By: TMP Rifaximin (Rifaximin 550 Mg Tablet) 550 mg PO BID JUAN Stop: 08/30/24 08:59 Last Admin: 07/31/24 09:58 Dose: 550 mg Documented By: TMP Coding Level of Care Code 39241 IN/OBS CONSULT LVL 4,60M Diagnoses Major depression F32.9 Alcohol-induced depressive disorder with moderate or severe use disorder F10.24 Alcohol use disorder, severe, dependence F10.20 Hypokalemia E87.6 Decompensated hepatic cirrhosis K72.90; K74.60 Depression with suicidal ideation F32.A; R45.851
[2024-07-31] MEDS: GABAPENTIN 600 MG TAB PO ONE (12:17)
[2024-07-31] MEDS: POTASSIUM CHLORIDE CRTAB 20 MEQ TABCR PO STA (12:17)
[2024-07-31] MEDS: POTASSIUM CHLORIDE / WTR 10 MEQ/100 ML PLCT IV SCH (14:16)
[2024-07-31] MEDS: LORazepam 2 MG/1 ML VIAL IV STA (14:16)
[2024-07-31] MEDS: GABAPENTIN 100 MG CAP PO SCH (17:11)
[2024-07-31] MEDS: MONTELUKAST SODIUM 10 MG TABLET PO SCH (20:30)
[2024-07-31] MEDS: ONDANSETRON INJ 2 MG/ML 2 ML VIAL IV PRN (20:34)
[2024-08-01] MEDS: HEPARIN 100 UNIT/ML 5ML FLUSH FLUSH PRN (04:10)
--- NOTE | 2024-08-01 07:47 | Hospitalist Progress Note ---
Date of Service August 01, 2024 Assessment & Plan (1) Hypokalemia: Plan: Secondary to home diuretic Rx History of alcoholic cirrhosis Medical telemetry Replace electrolytes replace K and monitor received IVF on admission, resume home diuretic Rx once patient euvolemic Suicidal ideations Psychiatry consulted and discussed with Suicide precautions , 302 -Start Effexor XR 37.5mg tomorrow morning -Start acamprosate 333mg TID if family able to bring in outpatient supply (not on hospital formulary), if tolerated can increase to 666mg TID po in 3-5 days Etoh abuse, Etoh withdrawal - intoxicated in the ED - alcohol level on admission 473 - pt reportedly drinks liquor daily - placed on gabapentin withdrawal protocol and iv prn ativan Alcoholic hepatitis, good prognosis with Madrey's DF score of 3.9 points on admission portal hypertension status post TIPS prolactinoma, medical management contemplated as per [facility] neuroendocrine note from 3 months ago ADD, on Adderall asthma, stable anxiety disorder ongoing tobacco/alcohol abuse, Nicotine replacement therapy as needed DVT prophylaxis. SCDs Re: Thrombocytopenia Full code Patient's mother - Ms. Sayra Burr, contact #[phone]. Admission and Anticipated Discharge Date Admission Date: July 30, 2024 Subjective Pt seen in follow up of SI, etoh abuse, etoh withdrawal Currently laying in bed in NAD Denies any fevers chills chest pain shortness of breath, palpitations, Denies abdominal pain nausea or vomiting She is mildly tachycardic Today she is much more calm and apologizes about her behavior previous day. Says she follows w/ Dr. Walker - hematology, and needed platelet transfusion. Also reports hx of withdrawal seizure. Psychiatry consulted and discussed with. Alcohol withdrawal protocol with gabapentin and as needed Ativan ordered. Review of Systems Review of Systems: All systems reviewed & are unremarkable except as noted in Subjective Physical Exam Physical Exam: GENERAL: young F WD/WN in NAD HEEN T: NC/AT, EOMI N SYED : Supple CHES T : CTA, no tender ness HEART : mild ly tachycardic, no obvious murmurs ABDOMEN: soft, di stention,no tender ness EXTREMITIES : No LE swelling/t enderness, moves e xtremities NEUROL OGIC : awake, aler t, no facial asymm etry, able to answ er simple question s, moves extremiti es SKIN: warm, dr myrtle Results & Data Results & Data Vital Signs (Past 12 Hours) Vital Signs Temp Pulse Pulse Resp BP BP Pulse Ox 08/01/24 07:29 91 H 08/01/24 07:24 91 H 08/01/24 07:15 36.8 C 90 16 101/63 96 08/01/24 05:00 08/01/24 03:13 37.1 C 93 H 14 105/67 97 08/01/24 00:00 07/31/24 23:08 37.2 C 94 H 16 104/65 97 07/31/24 22:01 96 H 07/31/24 20:08 37.4 C 100 H 16 119/74 97 O2 Del Method O2 Del Method 08/01/24 07:29 08/01/24 07:24 08/01/24 07:15 Room Air 08/01/24 05:00 Room Air 08/01/24 03:13 Room Air 08/01/24 00:00 Room Air 07/31/24 23:08 Room Air 07/31/24 22:01 07/31/24 20:08 Room Air Laboratory Results 08/01/24 Range/Units 07:02 WBC 1.87 L (4.8-10.8) K/ul RBC 2.69 L (4.20-5.40) M/uL Hgb 8.5 L (12.0-16.0) g/dl Hct 26.2 L (37.0-47.0) % MCV 97.4 (80.0-100.0) fL MCH 31.6 (25.0-34.0) pg MCHC 32.4 (32.0-36.0) g/dL RDW Std Deviation 57.0 H (36.4-46.3) fL RDW Coeff of Yasmine 15.9 H (11.5-14.5) % Plt Count 32 L D (130-400) K/uL MPV 10.7 (9.4-12.4) fL Immature Gran % (Auto) 0.5 % Neut % (Auto) 61.1 % Lymph % (Auto) 31.0 % [place] % (Auto) 5.3 % Eos % (Auto) 1.6 % Baso % (Auto) 0.5 % Neut # (Auto) 1.14 L (1.40-6.50) K/uL Lymph # (Auto) 0.58 L (1.20-3.40) K/uL [place] # (Auto) 0.10 L (0.11-0.59) K/uL Eos # (Auto) 0.03 (0.00-0.50) K/uL Baso # (Auto) 0.01 (0.00-0.20) K/uL Immature Gran # (Auto) 0.01 (0.01-0.20) K/uL Platelet Estimate Decreased L (Normal) RBC Morphology Unremarkable Sodium 141 (136-145) mmol/L Potassium 3.8 (3.5-5.1) mmol/L Chloride 109 H (98-107) mmol/L Carbon Dioxide 26 (21-32) mmol/L Anion Gap 6 (3-11) BUN 4 L (6-23) mg/dl Creatinine 0.80 (0.6-1.2) mg/dl Est Cr Clr Drug Dosing 76.1 ml/min eGFR 97.26 BUN/Creatinine Ratio 5.0 L (10-20) Glucose 75 (70-99(Fasting)) mg/dl Calcium 7.3 L (8.6-10.3) mg/dl Phosphorus 1.9 L (2.5-4.9) mg/dl Magnesium 1.8 (1.7-2.4) mg/dl Total Bilirubin 3.7 H (0.2-1.0) mg/dl AST 67 H (13-39) U/L ALT 15 (7-52) U/L Alkaline Phosphatase 249 H (34-104) U/L Total Protein 5.3 L (6.0-8.3) gm/dl Albumin 2.8 L (3.4-5.0) gm/dl Globulin 2.5 (2.5-4.0) gm/dl Albumin/Globulin Ratio 1.1 (0.9-2) Medications Administered Current Inpatient Medications Acetaminophen (Acetaminophen 500 Mg Tab) 500 mg PO Q6H PRN PRN Reason: fever/pain Stop: 08/30/24 00:32 Amphetamine/Dextroamphetamine (Dextroamphetamine/Amphetamime Ir 5 Mg Tab) 5 mg PO BID@0900,1600 JUAN Stop: 08/14/24 08:59 Last Admin: 08/01/24 15:22 Dose: 5 mg Diclofenac Sodium (Diclofenac Sod 1% Gel 100 Gm Tube) 4 gm EXT TID PRN; Protocol PRN Reason: Pain Stop: 08/30/24 00:46 Fluticasone/Vilanterol (Fluticasone/Vilanterol 200/25mcg 14 Puffs/Inhaler) 1 puffs INH DAILY [facility]; Protocol Stop: 08/30/24 08:59 Last Admin: 08/01/24 08:52 Dose: 1 puffs Folic Acid (Folic Acid 1 Mg Tab) 1 mg PO QAM [facility] Stop: 08/30/24 08:59 Last Admin: 08/01/24 08:53 Dose: 1 mg Gabapentin (Gabapentin 1200mg Alcohol Withdrawal Load) 1 each PO NOW STA; Protocol Stop: 08/01/24 15:58 Gabapentin (Gabapentin 600 Mg Tab) 1,200 mg PO NOW ONE Stop: 08/01/24 15:58 Gabapentin (Gabapentin 600 Mg Tab) 600 mg PO Q6H [facility] Stop: 08/02/24 04:01 Gabapentin (Gabapentin 600 Mg Tab) 600 mg PO Q8H [facility] Stop: 08/03/24 04:01 Gabapentin (Gabapentin 600 Mg Tab) 600 mg PO Q12H [facility] Stop: 08/04/24 04:01 Gabapentin (Gabapentin 600 Mg Tab) 600 mg PO Q24H [facility] Stop: 08/05/24 04:01 Heparin Sodium (Porcine) (Heparin 100 Unit/Ml 5ml Flush) 5 ml FLUSH PRN PRN PRN Reason: Flush Stop: 08/31/24 03:25 Last Admin: 08/01/24 04:10 Dose: 5 ml Promethazine HCl (Phenergan) 6.25 mg in 50.25 mls @ 201 mls/hr IV Q6H PRN PRN Reason: Nausea And Vomiting Stop: 08/30/24 00:32 Last Infusion: 07/31/24 11:51 Dose: Infused Thiamine HCl 100 mg/ Syringe 10 mls @ 2 mls/min IV QAM [facility] Stop: 08/31/24 08:59 Last Admin: 08/01/24 09:06 Dose: 2 mls/min Lactulose (Lactulose Syrup 10 Gm/15 Ml Btl 960 Ml) 10 gm PO QID [facility] Stop: 08/30/24 08:59 Last Admin: 08/01/24 12:32 Dose: 10 gm Loratadine (Loratadine 10 Mg Tab) 10 mg PO QAM JUAN Stop: 08/30/24 08:59 Last Admin: 08/01/24 08:53 Dose: 10 mg Lorazepam (Lorazepam 0.5 Mg Tab) 0.5 mg PO TID PRN PRN Reason: Anxiety Stop: 08/30/24 00:32 Last Admin: 08/01/24 03:19 Dose: 0.5 mg Lorazepam (Lorazepam 2 Mg/1 Ml Vial) 1 mg IV UD PRN; Protocol PRN Reason: EtOH Withdrawal AWSS Score 6,7 Stop: 08/30/24 11:37 Lorazepam (Lorazepam 2 Mg/1 Ml Vial) 2 mg IV UD PRN; Protocol PRN Reason: EtOH Withdrawal AWSS Score 8,9 Stop: 08/30/24 11:37 Last Admin: 08/01/24 12:47 Dose: 2 mg Lorazepam (Lorazepam 2 Mg/1 Ml Vial) 3 mg IV ONCE PRN; Protocol PRN Reason: EtOH Withdrawal AWSS Score 10+ Magnesium Oxide (Magnesium Oxide 400 Mg Tab) 800 mg PO BID JUAN Stop: 08/30/24 08:59 Last Admin: 08/01/24 08:53 Dose: 800 mg Miscellaneous (Acamprosate 333 Mg - Order Awaiting Action) 1 each N/A QS [facility] Stop: 08/30/24 07:59 Last Admin: 08/01/24 14:37 Dose: Not Given Miscellaneous (Ursodiol 500 Mg - Order Awaiting Action) 1 each N/A QS [facility] Stop: 08/30/24 07:59 Last Admin: 08/01/24 14:37 Dose: Not Given Montelukast Sodium (Montelukast Sodium 10 Mg Tablet) 10 mg PO HS JUAN Stop: 08/30/24 20:59 Last Admin: 07/31/24 20:30 Dose: 10 mg Multivitamins (Multivitamin Tab) 1 tab PO QAM [facility]UAN Stop: 08/30/24 08:59 Last Admin: 08/01/24 08:53 Dose: 1 tab Nicotine Polacrilex (Nicotine Polacrilex 2 Mg Gum) 1 piece MT PRN PRN PRN Reason: smoking urge Stop: 08/30/24 00:30 Ondansetron HCl (Ondansetron Inj 2 Mg/Ml 2 Ml Vial) 4 mg IV Q6H PRN PRN Reason: Nausea And Vomiting Stop: 08/30/24 13:27 Last Admin: 07/31/24 20:34 Dose: 4 mg Oxycodone HCl (Oxycodone Hcl Ir 5 Mg Tab (Immediate Release)) 5 mg PO Q4H PRN PRN Reason: Pain Stop: 08/14/24 00:32 Pantoprazole Sodium (Pantoprazole 40 Mg Tab) 40 mg PO BID [facility] Stop: 08/30/24 08:59 Last Admin: 08/01/24 08:54 Dose: 40 mg Potassium Chloride (Potassium Chloride Crtab 20 Meq Tabcr) 40 meq PO QAM [facility] Stop: 09/01/24 08:59 Potassium Phosphate (Pot Phosphate Monobasic W/ Sod Tab) 1 tab PO Q8 [facility] Stop: 08/02/24 14:01 Last Admin: 08/01/24 13:38 Dose: 1 tab Rifaximin (Rifaximin 550 Mg Tablet) 550 mg PO BID [facility] Stop: 08/30/24 08:59 Last Admin: 08/01/24 08:53 Dose: 550 mg
[2024-08-01 07:55] LABS: Albumin Globulin Ratio 1.1 (0.9-2); Albumin Level 2.8 gm/dl (3.4-5.0); Bilirubin,Total 3.7 mg/dl (0.2-1.0); Calcium 7.3 mg/dl (8.6-10.3); Creatinine Clr Calc Pharmacy 76.1 ml/min; Globulin 2.5 gm/dl (2.5-4.0); Magnesium 1.8 mg/dl (1.7-2.4); Phosphorus 1.9 mg/dl (2.5-4.9); Potassium 3.8 mmol/L (3.5-5.1); Total Protein 5.3 gm/dl (6.0-8.3)
[2024-08-01 08:04] LABS: Hematocrit (blood only) 26.2 % (37.0-47.0); Hemoglobin 8.5 g/dl (12.0-16.0); Mean Corpuscular Hemoglobin 31.6 pg (25.0-34.0); Mean Corpuscular Hgb Conc 32.4 g/dL (32.0-36.0); Mean Corpuscular Volume 97.4 fL (80.0-100.0); Mean Platelet Volume 10.7 fL (9.4-12.4); Platelet Count 32 K/uL (130-400); RDW Coefficient of Variation 15.9 % (11.5-14.5); Red Blood Count 2.69 M/uL (4.20-5.40); White Blood Count 1.87 K/ul (4.8-10.8)
[2024-08-01 08:05] LABS: Basophils # (auto) 0.01 K/uL (0.00-0.20); Basophils % (auto) 0.5 %; Eosinophils # (auto) 0.03 K/uL (0.00-0.50); Eosinophils % (auto) 1.6 %; Immature Granulocytes # (auto) 0.01 K/uL (0.01-0.20); Immature Granulocytes % (auto) 0.5 %; Lymphocytes # (auto) 0.58 K/uL (1.20-3.40); Monocytes % (auto) 5.3 %; Neutrophils # (auto) 1.14 K/uL (1.40-6.50); Neutrophils % (auto) 61.1 %; Platelet Estimate Decreased (Normal); RBC Morphology Unremarkable
[2024-08-01] MEDS: THIAMINE HCL 100 MG in SYRINGE 9 ML IV SCH (09:06)
--- NOTE | 2024-08-01 11:34 | Psychiatric Progress Note ---
Date of Service August 01, 2024 Impression / Recommendations Impression Diagnostically consistent with unspecified mood disorder suspect combination of major depressive disorder and alcohol-induced depression. While today she is denying suicidal ideation she appears to be significantly minimizing recent history, statements and current symptoms and despite denying making any of these statements presents as severely depressed during our interview and unable to tolerate attempts to engage in safety planning or options for additional supports in a less restrictive setting. Given reported statements made to her boyfriend and mother about suicidal ideation with plan to drink herself to & acting on this by drinking large quantities of hard liquor, wanting to say goodbye to family, collateral from boyfriend noting recent escalating symptoms of depression with statements of hopelessness & worthlessness, difficulty naming reasons for living or interests concerning for anhedonia & lack of future- orientation, inability to engage in any safety plan discussions, and recent di stressing news of not being eligible for a liver transplant she is deemed at ongoing high risk of suicide and felt to meet 302 commitment criteria. The patient is hospitalized on a completed 302 involuntary commitment, which if not extended, will on 08/04/2024 at 2214. This patient must remain on safety precautions with a 1-on-1 and is unable to leave the hospital AMA. A: Mood improving a bit today, continues to deny SI but less minimizing of recent events and able to discuss recent challenges in regards to her substance use and anxiety. Able to tolerate discussion about potential treatment options and willing to start some safety planning and exploration of outpatient therapy options. Discussed medication treatment options in detail. Discussed risks, be nefits and alternatives. Patient would like to start and consented to Effexor XR for anxiety and depression. Reviewed side effects including but not limited to: GI, LLOYD, sexual side effects, and potential for liver effects (need to utilize lower dose). If anxiety persists would consider trial of discontinuation of Adderall in the future as this could be contributing to anxiety. Overall, I spent a total of 45 minutes with this case including review of chart records, review of labwork, direct evaluation of the patient at bedside, counseling the patient, discussion of the patient with the Nurse and with the hospitalist provider, discussion with the psychiatric liason during clinical rounds, and documentation in the electronic health record. 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: (3) Alcohol use disorder, severe, dependence: (4) Hypokalemia: (5) Decompensated hepatic cirrhosis: (6) Depression with suicidal ideation: (7) Anxiety disorder, unspecified: Plan -On completed 302 commitment, must remain on 1-on-1, cannot leave AMA -Continue suicide precautions -AWSS with ativan for scoring, thiamine, folic acid; consider gabapentin as well for further seizure prevention -For behavioral emergency: ativan 1mg IV or IM q6h prn -Start Effexor XR 37.5mg tomorrow morning -Start acamprosate 333mg TID if family able to bring in outpatient supply (not on hospital formulary), if tolerated can increase to 666mg TID po in 3-5 days Interval History Identifying Information 39 yo woman with a history of alcoholic cirrhosis, portal hypertension status post TIPS, prolactinoma, ADD, asthma, anxiety disorder, cervical dysplasia admitted medically on a 302 warrant for suicidal statements and intoxication and hypokalemia. Psychiatry consulted for risk assessment, assessment of 302. Chief Complaint "I feel better, clearer, not so angry". Subjective Subjective Patient was seen & assessed and interval progress reviewed. No overnight events. Scoring on AWSS. Today reports improving mood, feels less angry today. Able to reflect on her alcohol use and mood symptoms, she feels depression has not been a big issue but feels anxiety has been and is what leads her to drink alcohol as "I like it and it helps calm my anxiety". Engaged in motivational interviewing, she feels her desire to stop drinking alcohol is 9/10 and confidence in being able to do this is 8/10. She is willing to engage in some safety planning today, and agreeable to psych liason exploring possible outpatient therapy options for dual diagnosis. She is not interested in residential substance use treatment. She wants to restart acamproasate and thinks she has a home supply her boyfriend could bring in as not on hospital formulary. She recalls past SSRI trials that offered no benefit, she's open to SNRI trial. Physical Exam Psychiatric Orientation: alert and oriented x 3 Apperance: appropriately dressed and + disheveled Eye Contact: + fair eye contact Motor Behavior: no abnormal motor movements Speech: normal rate/rhythm/volume of speech Affect: + constricted affect Mood: + depressed mood and + anxious mood Thought Process: + concrete thought process Thought Content: reality based without delusions Suicidal Thoughts: denies suicidal thoughts Homicidal Thoughts: denies homicidal thoughts Hallucinations: no auditory hallucinations and no visual hallucinations Cognition: attention grossly intact and language grossly intact Insight: + limited insight Judgment: + limited judgement Vital Signs (Past 24 Hours) Last Vital Signs Temp 36.6 C 08/01/24 11:20 Pulse 100 H 08/01/24 11:20 Resp 16 08/01/24 11:20 BP 120/68 08/01/24 11:20 Pulse Ox 99 08/01/24 11:20 O2 Del Method Room Air 08/01/24 11:20 Results & Data ([facility]) Laboratory Results Laboratory Results - last 24 hr 08/01/24 07:02 WBC 1.87 L RBC 2.69 L Hgb 8.5 L Hct 26.2 L MCV 97.4 MCH 31.6 MCHC 32.4 RDW Std Deviation 57.0 H RDW Coeff of Yasmine 15.9 H Plt Count 32 L D MPV 10.7 Immature Gran % (Auto) 0.5 Neut % (Auto) 61.1 Lymph % (Auto) 31.0 [place] % (Auto) 5.3 Eos % (Auto) 1.6 Baso % (Auto) 0.5 Neut # (Auto) 1.14 L Lymph # (Auto) 0.58 L [place] # (Auto) 0.10 L Eos # (Auto) 0.03 Baso # (Auto) 0.01 Immature Gran # (Auto) 0.01 Platelet Estimate Decreased L RBC Morphology Unremarkable Sodium 141 Potassium 3.8 Chloride 109 H Carbon Dioxide 26 Anion Gap 6 BUN 4 L Creatinine 0.80 Est Cr Clr Drug Dosing 76.1 eGFR 97.26 BUN/Creatinine Ratio 5.0 L Glucose 75 Calcium 7.3 L Phosphorus 1.9 L Magnesium 1.8 Total Bilirubin 3.7 H AST 67 H ALT 15 Alkaline Phosphatase 249 H Total Protein 5.3 L Albumin 2.8 L Globulin 2.5 Albumin/Globulin Ratio 1.1 Current Inpatient Medications Current Inpatient Medications: Current Inpatient Medications Acetaminophen (Acetaminophen 500 Mg Tab) 500 mg PO Q6H PRN PRN Reason: fever/pain Stop: 08/30/24 00:32 Amphetamine/Dextroamphetamine (Dextroamphetamine/Amphetamime Ir 5 Mg Tab) 5 mg PO BID@0900,1600 [facility] Stop: 08/14/24 08:59 Last Admin: 08/01/24 09:06 Dose: 5 mg Diclofenac Sodium (Diclofenac Sod 1% Gel 100 Gm Tube) 4 gm EXT TID PRN; Protocol PRN Reason: Pain Stop: 08/30/24 00:46 Fluticasone/Vilanterol (Fluticasone/Vilanterol 200/25mcg 14 Puffs/Inhaler) 1 puffs INH DAILY [facility]; Protocol Stop: 08/30/24 08:59 Last Admin: 08/01/24 08:52 Dose: 1 puffs Folic Acid (Folic Acid 1 Mg Tab) 1 mg PO QAM [facility] Stop: 08/30/24 08:59 Last Admin: 08/01/24 08:53 Dose: 1 mg Gabapentin (Gabapentin 600 Mg Tab) 600 mg PO Q24H [facility] Stop: 08/01/24 23:31 Gabapentin (Gabapentin 400 Mg Cap) 400 mg PO Q24H [facility] Stop: 08/02/24 23:31 Gabapentin (Gabapentin 100 Mg Cap) 200 mg PO Q24H [facility] Stop: 08/03/24 23:31 Heparin Sodium (Porcine) (Heparin 100 Unit/Ml 5ml Flush) 5 ml FLUSH PRN PRN PRN Reason: Flush Stop: 08/31/24 03:25 Last Admin: 08/01/24 04:10 Dose: 5 ml Promethazine HCl (Phenergan) 6.25 mg in 50.25 mls @ 201 mls/hr IV Q6H PRN PRN Reason: Nausea And Vomiting Stop: 08/30/24 00:32 Last Infusion: 07/31/24 11:51 Dose: Infused Thiamine HCl 100 mg/ Syringe 10 mls @ 2 [facility] [place] Stop: 08/31/24 08:59 Last Admin: 08/01/24 09:06 Dose: 2 mls/min Lactulose (Lactulose Syrup 10 Gm/15 Ml Btl 960 Ml) 10 gm PO QID [facility] Stop: 08/30/24 08:59 Last Admin: 08/01/24 08:54 Dose: 10 gm Loratadine (Loratadine 10 Mg Tab) 10 mg PO QAM [facility] Stop: 08/30/24 08:59 Last Admin: 08/01/24 08:53 Dose: 10 mg Lorazepam (Lorazepam 0.5 Mg Tab) 0.5 mg PO TID PRN PRN Reason: Anxiety Stop: 08/30/24 00:32 Last Admin: 08/01/24 03:19 Dose: 0.5 mg Lorazepam (Lorazepam 2 Mg/1 Ml Vial) 1 mg IV UD PRN; Protocol PRN Reason: EtOH Withdrawal AWSS Score 6,7 Stop: 08/30/24 11:37 Lorazepam (Lorazepam 2 Mg/1 Ml Vial) 2 mg IV UD PRN; Protocol PRN Reason: EtOH Withdrawal AWSS Score 8,9 Stop: 08/30/24 11:37 Lorazepam (Lorazepam 2 Mg/1 Ml Vial) 3 mg IV ONCE PRN; Protocol PRN Reason: EtOH Withdrawal AWSS Score 10+ Magnesium Oxide (Magnesium Oxide 400 Mg Tab) 800 mg PO BID [facility] Stop: 08/30/24 08:59 Last Admin: 08/01/24 08:53 Dose: 800 mg Miscellaneous (Acamprosate 333 Mg - Order Awaiting Action) 1 each N/A QS [facility] Stop: 08/30/24 07:59 Last Admin: 08/01/24 08:50 Dose: Not Given Miscellaneous (Ursodiol 500 Mg - Order Awaiting Action) 1 each N/A QS [facility] Stop: 08/30/24 07:59 Last Admin: 08/01/24 08:51 Dose: Not Given Montelukast Sodium (Montelukast Sodium 10 Mg Tablet) 10 mg PO HS [facility] Stop: 08/30/24 20:59 Last Admin: 07/31/24 20:30 Dose: 10 mg Multivitamins (Multivitamin Tab) 1 tab PO QAM [facility] Stop: 08/30/24 08:59 Last Admin: 08/01/24 08:53 Dose: 1 tab Nicotine Polacrilex (Nicotine Polacrilex 2 Mg Gum) 1 piece MT PRN PRN PRN Reason: smoking urge Stop: 08/30/24 00:30 Ondansetron HCl (Ondansetron Inj 2 Mg/Ml 2 Ml Vial) 4 mg IV Q6H PRN PRN Reason: Nausea And Vomiting Stop: 08/30/24 13:27 Last Admin: 07/31/24 20:34 Dose: 4 mg Oxycodone HCl (Oxycodone Hcl Ir 5 Mg Tab (Immediate Release)) 5 mg PO Q4H PRN PRN Reason: Pain Stop: 08/14/24 00:32 Pantoprazole Sodium (Pantoprazole 40 Mg Tab) 40 mg PO BID [facility] Stop: 08/30/24 08:59 Last Admin: 08/01/24 08:54 Dose: 40 mg Potassium Chloride (Potassium Chloride Crtab 20 Meq Tabcr) 40 meq PO TID [facility] Stop: 08/30/24 08:59 Last Admin: 08/01/24 08:58 Dose: 40 meq Rifaximin (Rifaximin 550 Mg Tablet) 550 mg PO BID [facility] Stop: 08/30/24 08:59 Last Admin: 08/01/24 08:53 Dose: 550 mg
[2024-08-01] MEDS: LORazepam 2 MG/1 ML VIAL IV PRN (12:47)
[2024-08-01] MEDS ORDERED: POTASSIUM PHOS 3 MMOL/1 ML INFUSION IV STA (12:53)
[2024-08-01] MEDS: MAGNESIUM SULFATE / D5W 1 GM/100 ML BAG IV ONE (13:27)
[2024-08-01] MEDS: POT PHOSPHATE MONOBASIC W/ SOD TAB PO SCH (13:38)
[2024-08-01] MEDS ORDERED: GABAPENTIN 1200MG ALCOHOL WITHDRAWAL LOAD PO STA (15:57)
[2024-08-01] MEDS: GABAPENTIN 600 MG TAB PO ONE (16:25)
[2024-08-01] MEDS: MELATONIN 3 MG TAB PO PRN (20:29)
[2024-08-01] MEDS: ACAMPROSATE CALCIUM 333 MG PO SCH (20:30)
[2024-08-01] MEDS: GABAPENTIN 600 MG TAB PO SCH (20:34)
[2024-08-01] MEDS: DICLOFENAC SOD 1% GEL 100 GM TUBE EXT PRN (21:18)
[2024-08-01] MEDS ORDERED: GABAPENTIN 600 MG TAB PO SCH (23:30)
[2024-08-02 08:05] VITALS: RESP 18
[2024-08-02 08:18] LABS: Hematocrit (blood only) 25.3 % (37.0-47.0); Hemoglobin 8.5 g/dl (12.0-16.0); Mean Corpuscular Hemoglobin 32.7 pg (25.0-34.0); Mean Corpuscular Hgb Conc 33.6 g/dL (32.0-36.0); Mean Corpuscular Volume 97.3 fL (80.0-100.0); Mean Platelet Volume 11.6 fL (9.4-12.4); Platelet Count 29 K/uL (130-400); RDW Coefficient of Variation 15.9 % (11.5-14.5); RDW Standard Deviation 56.3 fL (36.4-46.3); White Blood Count 2.05 K/ul (4.8-10.8)
[2024-08-02] MEDS: VENLAFAXINE HCL 37.5 MG TAB PO SCH (08:27)
[2024-08-02] MEDS: POTASSIUM CHLORIDE CRTAB 20 MEQ TABCR PO SCH (08:30)
[2024-08-02 08:35] LABS: Albumin Globulin Ratio 1.1 (0.9-2); Albumin Level 2.7 gm/dl (3.4-5.0); BUN Creatinine Ratio 3.8 (10-20); Bilirubin,Total 3.3 mg/dl (0.2-1.0); Calcium 7.6 mg/dl (8.6-10.3); Globulin 2.5 gm/dl (2.5-4.0); Magnesium 1.8 mg/dl (1.7-2.4); Phosphorus 3.4 mg/dl (2.5-4.9); Potassium 3.7 mmol/L (3.5-5.1); Total Protein 5.2 gm/dl (6.0-8.3)
[2024-08-02 08:36] LABS: Basophils # (auto) 0.01 K/uL (0.00-0.20); Basophils % (auto) 0.5 %; Eosinophils # (auto) 0.05 K/uL (0.00-0.50); Eosinophils % (auto) 2.4 %; Lymphocytes # (auto) 0.43 K/uL (1.20-3.40); Monocytes # (auto) 0.12 K/uL (0.11-0.59); Monocytes % (auto) 5.9 %; Neutrophils # (auto) 1.44 K/uL (1.40-6.50); Neutrophils % (auto) 70.2 %
--- NOTE | 2024-08-02 10:57 | Psychiatric Progress Note ---
Date of Service August 02, 2024 Impression / Recommendations Impression Diagnostically consistent with unspecified mood disorder suspect combination of major depressive disorder and alcohol-induced depression. While today she is denying suicidal ideation she appears to be significantly minimizing recent history, statements and current symptoms and despite denying making any of these statements presents as severely depressed during our interview and unable to tolerate attempts to engage in safety planning or options for additional supports in a less restrictive setting. Given reported statements made to her boyfriend and mother about suicidal ideation with plan to drink herself to & acting on this by drinking large quantities of hard liquor, wanting to say goodbye to family, collateral from boyfriend noting recent escalating symptoms of depression with statements of hopelessness & worthlessness, difficulty naming reasons for living or interests concerning for anhedonia & lack of future- orientation, inability to engage in any safety plan discussions, and recent di stressing news of not being eligible for a liver transplant she is deemed at ongoing high risk of suicide and felt to meet 302 commitment criteria. The patient is hospitalized on a completed 302 involuntary commitment, which if not extended, will on 08/04/2024 at 2214. This patient must remain on safety precautions with a 1-on-1 and is unable to leave the hospital AMA. A: Mood continues to improve, continues to deny SI. Appears less depressed today, agreeable to working on safety planning. Increasingly suspect mood symptoms are due to alcohol use. Tolerating initial dose of Effexor XR so far. Overall, I spent a total of 40 minutes with this case including review of chart records, review of labwork, direct evaluation of the patient at bedside, counseling the patient, discussion of the patient with the Nurse and with the hospitalist provider, discussion with the psychiatric liason during clinical rounds, and documentation in the electronic health record. 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: (3) Alcohol use disorder, severe, dependence: (4) Hypokalemia: (5) Decompensated hepatic cirrhosis: (6) Depression with suicidal ideation: (7) Anxiety disorder, unspecified: Plan -On completed 302 commitment, must remain on 1-on-1, cannot leave AMA -Continue suicide precautions -AWSS with ativan for scoring, thiamine, folic acid; consider gabapentin as well for further seizure prevention -For behavioral emergency: ativan 1mg IV or IM q6h prn -Continue Effexor XR 37.5mg qd -Start acamprosate 333mg TID if family able to bring in outpatient supply (not on hospital formulary), if tolerated can increase to 666mg TID po in 3-5 days Interval History Identifying Information 39 yo woman with a history of alcoholic cirrhosis, portal hypertension status po st TIPS, prolactinoma, ADD, asthma, anxiety disorder, cervical dysplasia admitted medically on a 302 warrant for suicidal statements and intoxication and hypokalemia. Psychiatry consulted for risk assessment, assessment of 302. Chief Complaint "Good". Subjective Subjective Patient was seen & assessed and interval progress reviewed. Requiring only limited ativan. Today reports her mood is "good". Reports ongoing anxiety. Reflected on possible contribution from Adderall IR, she feels Adderall has lessened her anxiety by helping with focus and concentration. Remains agreeable for outpatient referrals for dual diagnosis treatment. Tolerated initial dose of Effexor XR so far today. Denies SI, willing to work on safety plan today. Physical Exam Psychiatric Orientation: alert and oriented x 3 Apperance: appropriately dressed and appropriately groomed Eye Contact: + fair eye contact Motor Behavior: no abnormal motor movements Speech: normal rate/rhythm/volume of speech Affect: + constricted affect Mood: + anxious mood Thought Process: + concrete thought process Thought Content: reality based without delusions Suicidal Thoughts: denies suicidal thoughts Homicidal Thoughts: denies homicidal thoughts Hallucinations: no auditory hallucinations and no visual hallucinations Cognition: attention grossly intact and language grossly intact Insight: + limited insight Judgment: + limited judgement Vital Signs (Past 24 Hours) Last Vital Signs Temp 36.7 C 08/02/24 08:04 Pulse 88 08/02/24 08:04 Resp 18 08/02/24 08:04 BP 108/69 08/02/24 08:04 Pulse Ox 95 08/02/24 08:04 O2 Del Method Room Air 08/02/24 08:04 Results & Data ([facility]) Laboratory Results Laboratory Results - last 24 hr 08/02/24 07:12 WBC 2.05 L RBC 2.60 L Hgb 8.5 L Hct 25.3 L MCV 97.3 MCH 32.7 MCHC 33.6 RDW Std Deviation 56.3 H RDW Coeff of Yasmine 15.9 H Plt Count 29 L* MPV 11.6 Immature Gran % (Auto) 0.0 Neut % (Auto) 70.2 Lymph % (Auto) 21.0 [place] % (Auto) 5.9 Eos % (Auto) 2.4 Baso % (Auto) 0.5 Neut # (Auto) 1.44 Lymph # (Auto) 0.43 L [place] # (Auto) 0.12 Eos # (Auto) 0.05 Baso # (Auto) 0.01 Immature Gran # (Auto) 0.00 L Sodium 141 Potassium 3.7 Chloride 113 H Carbon Dioxide 22 Anion Gap 6 BUN 3 L Creatinine 0.79 Est Cr Clr Drug Dosing 86.0 eGFR 98.74 BUN/Creatinine Ratio 3.8 L Glucose 74 Calcium 7.6 L Phosphorus 3.4 D Magnesium 1.8 Total Bilirubin 3.3 H AST 57 H ALT 14 Alkaline Phosphatase 248 H Total Protein 5.2 L Albumin 2.7 L Globulin 2.5 Albumin/Globulin Ratio 1.1 Current Inpatient Medications Current Inpatient Medications: Current Inpatient Medications Acamprosate (Pom - Acamprosate Calcium 333 Mg Tab) 666 mg PO TID [facility] Stop: 08/31/24 20:59 Last Admin: 08/02/24 08:27 Dose: 666 mg Acetaminophen (Acetaminophen 500 Mg Tab) 500 mg PO Q6H PRN PRN Reason: fever/pain Stop: 08/30/24 00:32 Amphetamine/Dextroamphetamine (Dextroamphetamine/Amphetamime Ir 5 Mg Tab) 5 mg PO BID@0900,1600 [facility] Stop: 08/14/24 08:59 Last Admin: 08/02/24 09:01 Dose: 5 mg Diclofenac Sodium (Diclofenac Sod 1% Gel 100 Gm Tube) 4 gm EXT TID PRN; Protocol PRN Reason: Pain Stop: 08/30/24 00:46 Last Admin: 08/01/24 21:18 Dose: 4 gm Fluticasone/Vilanterol (Fluticasone/Vilanterol 200/25mcg 14 Puffs/Inhaler) 1 puffs INH DAILY [facility]; Protocol Stop: 08/30/24 08:59 Last Admin: 08/02/24 08:28 Dose: 1 puffs Folic Acid (Folic Acid 1 Mg Tab) 1 mg PO QAM [facility] Stop: 08/30/24 08:59 Last Admin: 08/02/24 08:26 Dose: 1 mg Gabapentin (Gabapentin 600 Mg Tab) 600 mg PO Q8H [facility] Stop: 08/03/24 06:01 Gabapentin (Gabapentin 600 Mg Tab) 600 mg PO Q12H [facility] Stop: 08/04/24 06:01 Gabapentin (Gabapentin 600 Mg Tab) 600 mg PO Q24H [facility] Stop: 08/05/24 06:01 Heparin Sodium (Porcine) (Heparin 100 Unit/Ml 5ml Flush) 5 ml FLUSH PRN PRN PRN Reason: Flush Stop: 08/31/24 03:25 Last Admin: 08/01/24 20:29 Dose: 5 ml Promethazine HCl (Phenergan) 6.25 mg in 50.25 mls @ 201 mls/hr IV Q6H PRN PRN Reason: Nausea And Vomiting Stop: 08/30/24 00:32 Last Infusion: 07/31/24 11:51 Dose: Infused Thiamine HCl 100 mg/ Syringe 10 mls @ 2 mls/min IV QAM [facility] Stop: 08/31/24 08:59 Last Admin: 08/02/24 08:27 Dose: 2 mls/min Lactulose (Lactulose Syrup 10 Gm/15 Ml Btl 960 Ml) 10 gm PO QID [facility] Stop: 08/30/24 08:59 Last Admin: 08/02/24 08:28 Dose: 10 gm Loratadine (Loratadine 10 Mg Tab) 10 mg PO QAM [facility] Stop: 08/30/24 08:59 Last Admin: 08/02/24 08:26 Dose: 10 mg Lorazepam (Lorazepam 0.5 Mg Tab) 0.5 mg PO TID PRN PRN Reason: Anxiety Stop: 08/30/24 00:32 Last Admin: 08/02/24 08:30 Dose: 0.5 mg Lorazepam (Lorazepam 2 Mg/1 Ml Vial) 1 mg IV UD PRN; Protocol PRN Reason: EtOH Withdrawal AWSS Score 6,7 Stop: 08/30/24 11:37 Lorazepam (Lorazepam 2 Mg/1 Ml Vial) 2 mg IV UD PRN; Protocol PRN Reason: EtOH Withdrawal AWSS Score 8,9 Stop: 08/30/24 11:37 Last Admin: 08/01/24 12:47 Dose: 2 mg Lorazepam (Lorazepam 2 Mg/1 Ml Vial) 3 mg IV ONCE PRN; Protocol PRN Reason: EtOH Withdrawal AWSS Score 10+ Magnesium Oxide (Magnesium Oxide 400 Mg Tab) 800 mg PO BID [facility] Stop: 08/30/24 08:59 Last Admin: 08/02/24 08:26 Dose: 800 mg Melatonin (Melatonin 3 Mg Tab) 3 mg PO HS PRN PRN Reason: Sleep Stop: 08/31/24 19:53 Last Admin: 08/01/24 20:29 Dose: 3 mg Miscellaneous (Ursodiol 500 Mg - Order Awaiting Action) 1 each N/A QS [facility] Stop: 08/30/24 07:59 Last Admin: 08/02/24 08:31 Dose: Not Given Montelukast Sodium (Montelukast Sodium 10 Mg Tablet) 10 mg PO HS [facility] Stop: 08/30/24 20:59 Last Admin: 08/01/24 20:33 Dose: 10 mg Multivitamins (Multivitamin Tab) 1 tab PO QAM [facility] Stop: 08/30/24 08:59 Last Admin: 08/02/24 08:26 Dose: 1 tab Nicotine Polacrilex (Nicotine Polacrilex 2 Mg Gum) 1 piece MT PRN PRN PRN Reason: smoking urge Stop: 08/30/24 00:30 Ondansetron HCl (Ondansetron Inj 2 Mg/Ml 2 Ml Vial) 4 mg IV Q6H PRN PRN Reason: Nausea And Vomiting Stop: 08/30/24 13:27 Last Admin: 08/02/24 09:59 Dose: 4 mg Oxycodone HCl (Oxycodone Hcl Ir 5 Mg Tab (Immediate Release)) 5 mg PO Q4H PRN PRN Reason: Pain Stop: 08/14/24 00:32 Pantoprazole Sodium (Pantoprazole 40 Mg Tab) 40 mg PO BID [facility] Stop: 08/30/24 08:59 Last Admin: 08/02/24 08:26 Dose: 40 mg Potassium Chloride (Potassium Chloride Crtab 20 Meq Tabcr) 40 meq PO QAM [facility] Stop: 09/01/24 08:59 Last Admin: 08/02/24 08:30 Dose: 40 meq Potassium Phosphate (Pot Phosphate Monobasic W/ Sod Tab) 1 tab PO Q8 [facility] Stop: 08/02/24 14:01 Last Admin: 08/02/24 05:40 Dose: 1 tab Rifaximin (Rifaximin 550 Mg Tablet) 550 mg PO BID [facility] Stop: 08/30/24 08:59 Last Admin: 08/02/24 08:26 Dose: 550 mg Venlafaxine HCl (Venlafaxine Hcl 37.5 Mg Tab) 37.5 mg PO QAM [facility] Stop: 09/01/24 08:59 Last Admin: 08/02/24 08:27 Dose: 37.5 mg
--- NOTE | 2024-08-02 12:02 | Electrocardiogram Report ---
Test Reason : Blood Pressure : */* mmHG Vent. Rate : 72 BPM Atrial Rate : 72 BPM P-R Int : 168 ms QRS Dur : 84 ms QT Int : 406 ms P-R-T Axes : 76 -41 77 degrees QTcB Int : 444 ms Poor data quality, interpretation may be adversely affected Normal sinus rhythm Left axis deviation Low voltage QRS Cannot rule out Anterior infarct (cited on or before 12-Mar-2022) Cannot rule out Anterior injury pattern Abnormal ECG When compared with ECG of 03-Jun-2024 01:16, QRS axis Shifted left QT has shortened Possible changes in anterior leads Confirmed by Ba Kumar ([id number] on 08/02/2024 12:01:57 PM Referred By: REFERRED SELF Confirmed By: Ba Kumar
[2024-08-02] MEDS: GABAPENTIN 600 MG TAB PO SCH (13:15)
--- NOTE | 2024-08-02 16:42 | Hospitalist Progress Note ---
Date of Service August 02, 2024 Assessment & Plan (1) Alcohol use disorder, severe, dependence: (2) Alcohol withdrawal: (3) Pancytopenia: (4) Alcohol-induced depressive disorder with moderate or severe use disorder: (5) Decompensated hepatic cirrhosis: (6) Depression with suicidal ideation: (7) Anxiety disorder, unspecified: (8) Alcohol intoxication: (9) Major depression: Plan Patient stabilizing from alcohol withdrawal aspect, Continue Acamprosate Continue gabapentin taper Discontinue IV Ativan, has not needed any the last 24 hours, continue oral Ativan as needed for anxiety or mild withdrawal symptoms 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 with psychiatry, anticipate will most likely be discharged from her 302 as she is medically cleared Reviewed with patient indications for platelet transfusions, no evidence of active bleeding, continue to monitor Patient reports she follows closely with [facility] liver transplant team, aware that her recurrent alcohol use decreases her priority for liver transplant. Admission and Anticipated Discharge Date Admission Date: July 30, 2024 Subjective Patient states having minimal withdrawal symptoms, more anxiety than withdrawal. Concerned with her liver Physical Exam Physical Exam: Constitutional: Alert HEENT: Mucous membranes moist. Lungs: Clear to auscultation, decreased, no wheezes rales or rhonchi CV: S1-S2, regular Abdomen: Soft, nontender, nondistended Extremities: No significant edema Neuro: No focal deficits, minimal tremor Psych: Cooperative, anxious Derm: Bruising, petechiae over upper arms and wrists Results & Data Results & Data Vital Signs (Past 12 Hours) Vital Signs Temp Pulse Pulse Resp BP Pulse Ox O2 Del Method 08/02/24 16:11 36.6 C 93 H 18 122/78 97 Room Air 08/02/24 11:49 36.7 C 94 H 18 120/75 97 Room Air 08/02/24 08:04 36.7 C 88 18 108/69 95 Room Air 08/02/24 07:29 96 H Laboratory Results Reviewed imaging, laboratory and diagnostic studies. Pertinent findings as below. Pancytopenia, platelets decreasing (8) Alcohol intoxication Complication of substance-induced condition: with unspecified complication Qualified Code(s): F10.929 - Alcohol use, unspecified with intoxication, unspecified
[2024-08-02] MEDS: LORazepam 0.5 MG TAB PO PRN (21:15)
[2024-08-02] MEDS ORDERED: GABAPENTIN 400 MG CAP PO SCH (23:30)
[2024-08-03 07:25] VITALS: BP 118/71; TEMP 98.2; O2SAT 98
--- NOTE | 2024-08-03 13:36 | Psychiatric Progress Note ---
Date of Service August 03, 2024 Impression / Recommendations Impression Diagnostically consistent with unspecified mood disorder suspect combination of major depressive disorder and alcohol-induced depression. A: Mood improved, continues to deny SI, no longer meets 302 criteria. Engaged in safety planning and has outpatient dual diagnosis therapy scheduled and tolerating Effexor XR to treat anxiety and depression. Ongoing motivational interviewing regarding substance use treatment, declines residential, agreeable to outpatient dual diagnosis IOP. Suicide risk assessment: Acute risk is low given improvement in mood and denial of SI, lack of access to lethal means, plan to avoid substance use, hopefulness. Chronic risk is moderate given some non-modifiable risk factors: psychiatric co-morbid diagnoses, chronic illness but also with protective factors including good social support, sense of responsibility to family and social supports, outpatient care in place, positive problem solving, willingness to engage with treatment and self-observation. Counseled on ways to reduce acute and chronic risk including engaging with outpatient providers, using safety plan if needed, utilizing supports, taking medication, avoiding substance use and engaging in dual diagnosis treatment. Modifiable risk factors of SI, alcohol use and depression were addressed during hospitalization through safety planning, medication adjustment, addition of outpatient therapy. Provided education and recommendations of treatment options and behavioral strategies including avoiding substance use, alternative coping skills for anxiety which can help to reduce their acute and chronic risk which they were receptive to trying as an outpatient with their new therapist. Also discussed resources and ways to add additional protective factors and positive supports to their life to reduce elements of chronic risk. Recommended residential substance use treatment which she declines at this time. Overall, I spent a total of 60 minutes with this case including review of chart records, review of labwork, direct evaluation of the patient at bedside, counseling the patient, discussion of the patient with the hospitalist provider, discussion with the psychiatric liason during clinical rounds, and documentation in the electronic health record. 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 Psychiatry consulted for risk assessment, assessment of 302. Chief Complaint "I'm good". Subjective Subjective Patient was seen & assessed and interval progress reviewed. Reports her mood is "good". Had a positive visit with her mother this morning. Continues to deny SI. Affect is bright. Completed safety plan and engaged in discussion about this and reviewed crisis resources/warning signs/reasons to return to the hospital. She is aware of [facility] appointment and plans to engage with [facility] for dual diagnosis treatment. Reviewed additional resources should she desire these in the future including case management. She continues to tolerate initiation of Effexor XR, denies any side effects from this, she wants to continue with this. Plans to continue acamprosate. Physical Exam Psychiatric Orientation: alert and oriented x 3 Apperance: appropriately dressed and appropriately groomed Eye Contact: good eye contact Motor Behavior: no abnormal motor movements Speech: normal rate/rhythm/volume of speech Affect: euthymic affect Mood: no depressed mood and no anxious mood Thought Process: goal directed thought process Thought Content: reality based without delusions Suicidal Thoughts: denies suicidal thoughts Homicidal Thoughts: denies homicidal thoughts Hallucinations: no auditory hallucinations and no visual hallucinations Cognition: attention grossly intact and language grossly intact Insight: + limited insight Judgment: + limited judgement Vital Signs (Past 24 Hours) Last Vital Signs Temp 36.8 C 08/03/24 07:25 Pulse 85 08/03/24 07:25 Resp 18 08/03/24 07:25 BP 118/71 08/03/24 07:25 Pulse Ox 98 08/03/24 07:25 O2 Del Method Room Air 08/03/24 11:20 Results & Data ([facility]) Current Inpatient Medications Current Inpatient Medications: Current Inpatient Medications Acamprosate (Pom - Acamprosate Calcium 333 Mg Tab) 666 mg PO TID [facility] Stop: 08/31/24 20:59 Last Admin: 08/03/24 12:53 Dose: 666 mg Acetaminophen (Acetaminophen 500 Mg Tab) 500 mg PO Q6H PRN PRN Reason: fever/pain Stop: 08/30/24 00:32 Amphetamine/Dextroamphetamine (Dextroamphetamine/Amphetamime Ir 5 Mg Tab) 5 mg PO BID@0900,1600 [facility] Stop: 08/14/24 08:59 Last Admin: 08/03/24 07:49 Dose: 5 mg Diclofenac Sodium (Diclofenac Sod 1% Gel 100 Gm Tube) 4 gm EXT TID PRN; Protocol PRN Reason: Pain Stop: 08/30/24 00:46 Last Admin: 08/01/24 21:18 Dose: 4 gm Fluticasone/Vilanterol (Fluticasone/Vilanterol 200/25mcg 14 Puffs/Inhaler) 1 puffs INH DAILY [facility]; Protocol Stop: 08/30/24 08:59 Last Admin: 08/03/24 07:37 Dose: 1 puffs Folic Acid (Folic Acid 1 Mg Tab) [facility] Stop: 08/30/24 08:59 Last Admin: 08/03/24 07:38 Dose: 1 mg Gabapentin (Gabapentin 600 Mg Tab) 600 mg PO Q12H [facility] Stop: 08/04/24 06:01 Gabapentin (Gabapentin 600 Mg Tab) 600 mg PO Q24H [facility] Stop: 08/05/24 06:01 Heparin Sodium (Porcine) (Heparin 100 Unit/Ml 5ml Flush) 5 ml FLUSH PRN PRN PRN Reason: Flush Stop: 08/31/24 03:25 Last Admin: 08/03/24 05:20 Dose: 5 ml Promethazine HCl (Phenergan) 6.25 mg in 50.25 mls @ 201 mls/hr IV Q6H PRN PRN Reason: Nausea And Vomiting Stop: 08/30/24 00:32 Last Infusion: 07/31/24 11:51 Dose: Infused Thiamine HCl 100 mg/ Syringe 10 mls @ 2 mls/[facility] Stop: 08/31/24 08:59 Last Admin: 08/03/24 09:55 Dose: 2 mls/min Lactulose (Lactulose Syrup 10 Gm/15 Ml Btl 960 Ml) 10 gm PO QID [facility] Stop: 08/30/24 08:59 Last Admin: 08/03/24 12:51 Dose: 10 gm Loratadine (Loratadine 10 Mg Tab) 10 mg PO QAM [facility] Stop: 08/30/24 08:59 Last Admin: 08/03/24 07:38 Dose: 10 mg Lorazepam (Lorazepam 0.5 Mg Tab) 0.5 mg PO Q4H PRN PRN Reason: Anxiety, withdraw symptoms Stop: 08/30/24 00:32 Last Admin: 08/03/24 07:49 Dose: 0.5 mg Magnesium Oxide (Magnesium Oxide 400 Mg Tab) 800 mg PO BID [facility] Stop: 08/30/24 08:59 Last Admin: 08/03/24 07:38 Dose: 800 mg Melatonin (Melatonin 3 Mg Tab) 3 mg PO HS PRN PRN Reason: Sleep Stop: 08/31/24 19:53 Last Admin: 08/02/24 21:12 Dose: 3 mg Miscellaneous (Ursodiol 500 Mg - Order Awaiting Action) 1 each N/A QS [facility] Stop: 08/30/24 07:59 Last Admin: 08/03/24 07:37 Dose: Not Given Montelukast Sodium (Montelukast Sodium 10 Mg Tablet) 10 mg PO HS [facility] Stop: 08/30/24 20:59 Last Admin: 08/02/24 21:13 Dose: 10 mg Multivitamins (Multivitamin Tab) 1 tab PO QAM [facility] Stop: 08/30/24 08:59 Last Admin: 08/03/24 07:38 Dose: 1 tab Nicotine Polacrilex (Nicotine Polacrilex 2 Mg Gum) 1 piece MT PRN PRN PRN Reason: smoking urge Stop: 08/30/24 00:30 Ondansetron HCl (Ondansetron Inj 2 Mg/Ml 2 Ml Vial) 4 mg IV Q6H PRN PRN Reason: Nausea And Vomiting Stop: 08/30/24 13:27 Last Admin: 08/03/24 05:20 Dose: 4 mg Oxycodone HCl (Oxycodone Hcl Ir 5 Mg Tab (Immediate Release)) 5 mg PO Q4H PRN PRN Reason: Pain Stop: 08/14/24 00:32 Pantoprazole Sodium (Pantoprazole 40 Mg Tab) 40 mg PO BID [facility] Stop: 08/30/24 08:59 Last Admin: 08/03/24 07:38 Dose: 40 mg Potassium Chloride (Potassium Chloride Crtab 20 Meq Tabcr) 40 meq PO QAM [facility] Stop: 09/01/24 08:59 Last Admin: 08/03/24 07:49 Dose: 40 meq Rifaximin (Rifaximin 550 Mg Tablet) 550 mg PO BID [facility] Stop: 08/30/24 08:59 Last Admin: 08/03/24 07:38 Dose: 550 mg Venlafaxine HCl (Venlafaxine Hcl 37.5 Mg Tab) 37.5 mg PO QAM [facility] Stop: 09/01/24 08:59 Last Admin: 08/03/24 07:39 Dose: 37.5 mg
--- NOTE | 2024-08-03 14:13 | Discharge Summary ---
Discharge Summary Date of Service August 03, 2024 Principal Dx & Hospital Course #1 = Principal Diagnosis (1) Alcohol use disorder, severe, dependence: (2) Alcohol withdrawal: (3) Pancytopenia: (4) Alcohol-induced depressive disorder with moderate or severe use disorder: (5) Decompensated hepatic cirrhosis: (6) Depression with suicidal ideation: (7) Anxiety disorder, unspecified: (8) Alcohol intoxication: (9) Major depression: Plan Patient presented to the emergency room with known history of alcohol misuse she presented intoxicated and significant electrolyte abnormalities. Patient was admitted to the hospital. She was placed on gabapentin taper to manage withdrawal symptoms. Her potassium was replaced. She had expressed suicidal ideation. Psychiatry consultation was obtained. 302 was initiated. She re mained on the medical floor while she was being treated for her alcohol withdrawal and one-to-one observation. She was seen by psychiatry on a daily basis. Her potassium was stabilized. As she got through her alcohol intoxication and detoxification her mental status significantly improved. She was no longer suicidal. On the day of discharge she contracted for safety with psychiatry and was cleared for discharge from her 302 by psychiatry. Patient has significant cirrhosis from her alcohol use. She follows with transplant team at [facility]. Has chronic pancytopenia. These levels were monitored throughout her hospitalization and remained relatively stable. On the day of discharge she was doing well. No significant withdrawal symptoms. She has been given significant information for outpatient counseling. She already has established relationships with [facility] and [facility]. She is committed to continuing her abstinence. She will also will continue her acamprosate. Effexor was started for her anxiety as recommended by psychiatry. She will follow-up with her outpatient providers. Notes For Next Care Provider Continue to encourage abstinence from alcohol Continue to have her follow-up with her transplant team Medication Changes From Visit Effexor added for anxiety management Admission HPI Per Admitting Provider History obtained from patient and records. Medical history significant for alcoholic cirrhosis, portal hypertension status post TIPS, prolactinoma, ADD, asthma, anxiety disorder, cervical dysplasia as per records, ongoing tobacco/alcohol abuse. Last confinement May 2024 for electrolyte abnormalities in the setting of alcohol intoxication. Patient drinking heavily since last week after finding out that she was to be taken off [facility] transplant list for liver transplantation. Patient too high risk for transplant listing due to recurrent relapses as per documentation. Patient upset over [facility] transplant committee decision and verbalized to boyfriend that she did not want to live anymore. Denies unusual headache, chest pain, SOB, abdominal pain. Patient brought to ER for evaluation. Medical History as above Surgical History : Vascular procedures, TIPS Family History : Lung cancer, breast cancer, melanoma, lung cancer, heart disease Personal/Social history : Non-smoker, alcohol abuse, [employer] employee Admission Exam Per Admitting Provider See H&P Discharge Exam Constitutional: Alert HEENT: Mucous membranes moist., Sclera chronically icteric Lungs: Clear to auscultation, decreased, no wheezes rales or rhonchi CV: S1-S2, regular Abdomen: Soft, nontender, nondistended, no significant fluid wave Extremities: No significant edema Neuro: No focal deficits Psych: Cooperative, normal mood Updated Medication List Medication Instructions Recorded Confirmed Type budesonide-formoterol HFA 160 2 puff inhalation BID 06/20/21 07/31/24 History mcg-4.5 mcg/actuation aerosol inhaler (Symbicort) dextroamphetamine-amphetamine 5 mg 5 mg PO AMPM 06/20/21 07/31/24 History tablet (Adderall) loratadine 10 mg tablet 10 mg PO QAM 06/20/21 07/31/24 History montelukast 10 mg tablet 10 mg PO HS 06/20/21 07/31/24 History fluticasone propionate 50 2 spray intranasal QAM PRN 10/03/21 07/31/24 History mcg/actuation nasal allergies spray,suspension multivitamin 1 tab PO QAM 10/03/21 07/31/24 History ascorbic acid (vitamin C) 500 mg 500 mg PO QAM 01/31/22 07/31/24 History tablet (Vitamin C) cholecalciferol (vitamin D3) 50 50 mcg PO QAM 01/31/22 07/31/24 History mcg (2,000 unit) capsule (Vitamin D3) diclofenac sodium 1 % topical gel 4 g topical TID PRN Pain 10/14/22 07/31/24 History (Voltaren Arthritis Pain) metoclopramide HCl 10 mg tablet 10 mg PO AMHS PRN Nausea 01/07/23 07/31/24 History folic acid 1 mg tablet 1 mg PO QAM 09/16/23 07/31/24 History promethazine 12.5 mg tablet 12.5 mg PO Q6 PRN Nausea 09/16/23 07/31/24 History lactulose 10 gram/15 mL oral 10 g PO QID 01/26/24 07/31/24 History solution albuterol sulfate 90 mcg/actuation 2 puff inhalation Q4 PRN cough or 06/02/24 07/31/24 History aerosol inhaler wheeze furosemide 40 mg tablet 40 mg PO DAILY 06/02/24 07/31/24 History ondansetron HCl 4 mg tablet 4 mg PO Q8 PRN Nausea 06/02/24 07/31/24 History rifaximin 550 mg tablet (Xifaxan) 550 mg PO AMHS 06/02/24 07/31/24 History spironolactone 100 mg tablet 100 mg PO QAM 06/02/24 07/31/24 History magnesium oxide 400 mg (241.3 mg 800 mg (2 x 400 mg (241.3 mg 06/03/24 07/31/24 Rx magnesium) tablet magnesium)) PO BID 30 days #120 tabs potassium chloride 20 mEq 40 meq (2 x 20 mEq) PO TID 30 days 06/03/24 07/31/24 Rx tablet,extended release #180 tabs acamprosate 333 mg tablet,delayed See Rx Instructions .Route .COMPLEX 07/31/24 07/31/24 History release gabapentin 100 mg capsule 100 mg PO 3XD 07/31/24 07/31/24 History nicotine 14 mg/24 hr daily 1 patch topical 1XD 07/31/24 07/31/24 History transdermal patch omeprazole 40 mg capsule,delayed 40 mg PO 2XD 07/31/24 07/31/24 History release ursodiol 500 mg tablet 500 mg PO 2XD 07/31/24 07/31/24 History venlafaxine 37.5 mg 37.5 mg PO DAILY #30 caps 08/03/24 Rx capsule,extended release 24 hr (Effexor XR) Hospital Stay Data Consultations 07/30/24 23:43 ED Decision to Admit Stat 07/31/24 00:55 Consult Psychiatry Routine Diagnostic Imagining Performed Reviewed imaging, laboratory and diagnostic studies. Pertinent findings as below. WBCs 2.0 Hemoglobin 8.5, baseline Platelets 29, baseline Sodium 141 Potassium 3.7 Chloride 113 Creatinine 0.79 Total bilirubin 3.3 AST 57 ALT 14 Alk phos 248 Total protein 5.2 Pending Results Patient Have Any Pending Studies at Discharge: No Discharge Instructions Given to Patient (Per Discharging Provider) Follow-up with your various specialists as previously arranged including your liver team at [facility]. Strongly recommend you stop all alcohol and beer Total Time Total Time Spent Total Time Spent (In Minutes): 38
[2024-08-03 14:44] VITALS: PULSE 98
[2024-08-03 15:17] LABS: Amobarbital, Urine Conf NEGATIVE ng/mL (<100); Butalbital, Urine NEGATIVE ng/mL (<100); Marijuana Quant, GCMS Urine 46 ng/mL (<5); Pentobarbital, Urine Conf NEGATIVE ng/mL (<100); Phenobarbital, Urine 3660 ng/mL (<100); Secobarbital, Urine Conf NEGATIVE ng/mL (<100)
[2024-08-03] MEDS ORDERED: GABAPENTIN 600 MG TAB PO SCH (18:00)
[2024-08-03] MEDS ORDERED: GABAPENTIN 100 MG CAP PO SCH (23:30)
[2024-08-05] MEDS ORDERED: GABAPENTIN 600 MG TAB PO SCH (06:00)
--- NOTE | 2024-08-08 18:21 | Coding Query ---
CODING QUERY To promote full compliance with coding requirements relating to patient care, provider participation is requested in all cases of cutter head sharpener uncertainty. Please assist us with the question(s) below: Coding Question(s): Alcohol intoxication was documented as POA, but the alcohol withdrawal was not mentioned until the first progress note. Was the withdrawal POA or not? Physician's Response(s): Patient initially presented with an alcohol intoxication is present on admission as she cleared her alcohol intoxication she started to have withdrawal symptoms. Thank you Briseida Joseph Principal Diagnosis: "that condition established after study, to be chiefly responsible for occasioning the admission of the patient to the hospital for care." Co-Existing Principal Diagnosis: "when two or more diagnoses equally meet the criteria for principal diagnosis as determined by the circumstances of admission, diagnostic work up, and/or therapy provided, and the Alphabetic Index, Tabular List, or another coding guideline does not provide sequencing direction, any one of the diagnoses may be sequenced first." "When the physician has documented what appears to be a current diagnosis in the body of the record, but has not included the diagnosis in the final diagnostic statement, the physician should be asked whether the diagnosis should be added." (Source Coding [facility] 2 QTR90. p3-4) PATRICIA
== END 2024-08-03 15:09 | disposition home or self-care (01) | DRG 897 ==
LOC: ED 21:51 → EDINP 23:52 → SUATTDRO 23:52 → 2W 07-31 00:55

== ENCOUNTER 2024-08-10 09:35 | Inpatient (IN) ==
[2024-08-10] MEDS: diazePAM 5 MG/ML 10ML VIAL IV STA ×2 (11:02→14:08)
[2024-08-10 11:16] LABS: Basophils # (auto) 0.03 K/uL (0.00-0.20); Basophils % (auto) 0.9 %; Eosinophils # (auto) 0.05 K/uL (0.00-0.50); Eosinophils % (auto) 1.5 %; Hematocrit (blood only) 25.7 % (37.0-47.0); Hemoglobin 8.8 g/dl (12.0-16.0); Lymphocytes # (auto) 0.84 K/uL (1.20-3.40); Lymphocytes % (auto) 24.8 %; Mean Corpuscular Hemoglobin 32.1 pg (25.0-34.0); Mean Corpuscular Hgb Conc 34.2 g/dL (32.0-36.0); Mean Corpuscular Volume 93.8 fL (80.0-100.0); Mean Platelet Volume 10.1 fL (9.4-12.4); Monocytes # (auto) 0.39 K/uL (0.11-0.59); Monocytes % (auto) 11.5 %; Neutrophils # (auto) 2.08 K/uL (1.40-6.50); Neutrophils % (auto) 61.3 %; Platelet Count 67 K/uL (130-400); RDW Coefficient of Variation 15.6 % (11.5-14.5); RDW Standard Deviation 54.2 fL (36.4-46.3); Red Blood Count 2.74 M/uL (4.20-5.40); White Blood Count 3.39 K/ul (4.8-10.8)
[2024-08-10 11:50] LABS: Albumin Level 3.3 gm/dl (3.4-5.0); BUN Creatinine Ratio 5.3 (10-20); Bilirubin Direct 1.5 mg/dl (0-0.2); Bilirubin,Total 3.6 mg/dl (0.2-1.0); Creatinine Clr Calc Pharmacy 81.2 ml/min; Potassium 2.9 mmol/L (3.5-5.1); Total Protein 6.6 gm/dl (6.0-8.3)
--- NOTE | 2024-08-10 13:28 | Emergency Department Note ---
Impression & Plan Alcohol withdrawal, Alcohol abuse, Hypokalemia ED Provider Note NAME: CARMEN BOUCHER AGE: 39 SEX: F : 1985 ARRIVES VIA: Walk-In INFORMANT: Patient, ED PROVIDER(S): Siomara Walker MD CHIEF COMPLAINT: Alcohol withdrawal HPI: This is a 39-year-old female presenting for alcohol withdrawal. Patient has been here previously for alcohol withdrawal. Patient states that she last drank at around 3 AM, 99 apples. Her mother states that she did have a seizure about 1 day ago, 2 different episodes. Patient continue to drink after this and did not have any recurrent episodes since then. She states she does feel she is going to withdrawal at this time. ROS: See above HPI for pertinent positives & negatives. A total of 10 systems reviewed and were otherwise negative. PAST MEDICAL HISTORY: See Below PAST SURGICAL HISTORY: See Below FAMILY HISTORY: See Below SOCIAL HISTORY: See Below HOME MEDICATIONS: See Below ALLERGIES: See Below VITALS: See Below PHYSICAL EXAMINATION: General: resting comfortably in no acute distress Head: Normocephalic and atraumatic Eyes: Normal inspection, extraocular muscles intact, scleral icterus Ear, nose, throat: Normal external exam Neck: Normal range of motion Respiratory: lungs clear to auscultation bilaterally Cardiovascular: Regular rate/rhythm, no murmur GI: soft, nontender, no guarding or rebound Extremities: nontender, moves all extremities Neuro: The patient awake and alert, appropriately conversive, no focal deficits, symmetric faces Skin: Warm, dry, and intact MEDICAL DECISION MAKING: This is a 39-year-old female sent for alcohol withdrawal. Patient has cirrhosis of the liver, denies any current HI or SI. She does appear to have a longstanding history of alcohol use disorder. At this time she is amenable to inpatient treatment. Initial heart rate was elevated in the 140s, now downtrending to 93. -Will start with IV Valium, 20 mg for loading dose -Bloodwork reviewed showing pancytopenia, likely from liver cirrhosis. Hypokalemia as well as noted. Total bilirubin 3.6 direct is 1.5. Alcohol level 212. -Patient requires second dose of Valium at this time -Discussed care with hospital service for admission Differential diagnosis: Alcohol withdrawal, cirrhosis ER treatment provided: See below Independent History obtained from: Mother Diagnostics interpreted by me: ECG: ECG independently interpreted by me with normal sinus rhythm, left axis deviation, rate 88, normal FL, normal QRS, normal QTc, no ST segment elevations consistent with STEMI criteria Cardiac Monitoring: An order was placed for continuous cardiac monitoring. The monitor shows a rate of 93 with sinus rhythm. Laboratory studies: As stated above and show below. Imaging studies: See below. Critical Care Note: I have personally spent 35 minutes of critical care time in the direct management of this patient. This includes bedside care, interpretation of diagnostic studies, and testing, discussion with consultants, patient, and family members, and other required patient management activities. This 35 minutes is in excess of all separately billable procedures. Past Med/Surg History Problem List (Updated 08/10/24 @ 15:52 by Siomara Walker MD) Elevated liver enzymes (Acute) Alcohol intoxication (Acute) Pancytopenia (Acute) Alcohol abuse (Acute) Alcohol withdrawal (Acute) Anxiety disorder, unspecified Depression with suicidal ideation Alcohol use disorder, severe, dependence Alcohol-induced depressive disorder with moderate or severe use disorder Major depression Hypokalemia (Acute) Depression (Acute) Alcohol intoxication (Acute) Alcohol intoxication delirium with moderate or severe use disorder Intractable nausea and vomiting Pancytopenia Decompensated hepatic cirrhosis Weakness (Acute) Anemia (Acute) Cirrhosis of liver (Acute) Acute GI bleeding (Acute) Symptomatic anemia (Acute) Acute GI bleeding (Acute) Coagulopathy Shock circulatory Hematemesis Nausea & vomiting Alcoholic pancreatitis (Acute) 05/2021 treated at [facility] Abnormal CT of the abdomen Acute appendicitis with localized peritonitis Acute appendicitis (Acute) Lab test negative for COVID-19 virus (Acute) Abdominal pain Generalized anxiety disorder Alcohol use disorder Electrolyte abnormality Hyperbilirubinemia (Acute) Abdominal distention Hypokalemia Hypomagnesemia Hyponatremia Tobacco use Cirrhosis (Acute) Hyperbilirubinemia (Acute) Hypomagnesemia (Acute) Hypocalcemia (Acute) Encounter for pre-operative examination Closed rib fracture (Acute) Acute chest wall pain hx-"from a recent fall where she broke some ribs" Depression Asthma well controlled with inhalers Alcohol abuse (Acute) Anxiety ADD (attention deficit disorder) Medical History History of COVID-19 early 2019, tested thru hospital at [place], hospitalized during covid; fatigue, body aches, decreased appetite>resolved. Hemoptysis "sometimes still has this" Fall 06/2022, fx ribs VAN (acute kidney injury) hx Portal hypertension Alcoholic cirrhosis with abn coags Anemia pre-op H&H 04/15/22: 05/15 History of pancreatitis alcoholic 05/2021 per records GERD (gastroesophageal reflux disease) Pneumonia February 2022 treated at [facility]. denies sob currently Thrombocytopenia Jaundice hx-"not very much now" Acute on chronic alcoholic liver disease "currently trying to get on the transplant list" Hypokalemia Acute hyponatremia Hypomagnesemia Hyperbilirubinemia Rectal bleeding "a little when she's constipated" Alcohol abuse with withdrawal Fatty liver Alcoholic hepatitis Surgical History Hx of colonoscopy History of vascular access device 04/2022, [facility] H/O wisdom tooth extraction History of esophagogastroduodenoscopy (EGD) History of abdominal paracentesis Family History Grandmother Breast cancer Grandfather Heart disease Other No family history of adverse response to anesthesia Social History Smoking Status: Never smoker Tobacco Type: Cigarettes Cigarettes Per Day: 1-2; Second Hand Exposure: No; Do You Dip or Chew Tobacco: No; Hx Alcohol Use: Yes Alcohol type: hard liquor Hx Substance Use: Yes Last Used Substance: Days (ago) Last Used Substance Other:: 07/30/2024 Preferred Language: Azerbaijani 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 Ability: Effective Business Process Architect Required: No Beliefs That Will Affect Care: None marital status: Single Current Living Situation: Significant Other Current Living Situation Comment: Apartment current occupational status: employed How many Children do You have: 0 Feels Safe at Home: Yes Assistive Devices: Glasses Allergies Allergies Allergy/AdvReac Type Severity Reaction Status Date / Time banana Allergy Intermediate RASH, Verified 08/01/24 09:36 THROAT SLIGHTLY SWOLLEN Penicillins Allergy Unknown HAPPENED Verified 08/01/24 09:36 A CHILD Home Meds Home Medications Medication Instructions Recorded Confirmed budesonide-formoterol HFA 160 2 puff inhalation BID 06/20/21 08/10/24 mcg-4.5 mcg/actuation aerosol inhaler (Symbicort) dextroamphetamine-amphetamine 5 mg 5 mg PO AMPM 06/20/21 08/10/24 tablet (Adderall) loratadine 10 mg tablet 10 mg PO QAM 06/20/21 08/10/24 montelukast 10 mg tablet 10 mg PO HS 06/20/21 08/10/24 fluticasone propionate 50 2 spray intranasal QAM PRN 10/03/21 08/10/24 mcg/actuation nasal allergies spray,suspension multivitamin 1 tab PO QAM 10/03/21 08/10/24 ascorbic acid (vitamin C) 500 mg 500 mg PO QAM 01/31/22 08/10/24 tablet (Vitamin C) cholecalciferol (vitamin D3) 50 50 mcg PO QAM 01/31/22 08/10/24 mcg (2,000 unit) capsule (Vitamin D3) diclofenac sodium 1 % topical gel 4 g topical TID PRN Pain 10/14/22 08/10/24 (Voltaren Arthritis Pain) metoclopramide HCl 10 mg tablet 10 mg PO AMHS PRN Nausea 01/07/23 08/10/24 folic acid 1 mg tablet 1 mg PO QAM 09/16/23 08/10/24 promethazine 12.5 mg tablet 12.5 mg PO Q6 PRN Nausea 09/16/23 08/10/24 lactulose 10 gram/15 mL oral 10 g PO QID 01/26/24 08/10/24 solution albuterol sulfate 90 mcg/actuation 2 puff inhalation Q4 PRN cough or 06/02/24 08/10/24 aerosol inhaler wheeze furosemide 40 mg tablet 40 mg PO DAILY 06/02/24 08/10/24 ondansetron HCl 4 mg tablet 4 mg PO Q8 PRN Nausea 06/02/24 08/10/24 rifaximin 550 mg tablet (Xifaxan) 550 mg PO AMHS 06/02/24 08/10/24 spironolactone 100 mg tablet 100 mg PO QAM 06/02/24 08/10/24 gabapentin 100 mg capsule 100 mg PO 3XD 07/31/24 08/10/24 nicotine 14 mg/24 hr daily 1 patch topical 1XD 07/31/24 08/10/24 transdermal patch omeprazole 40 mg capsule,delayed 40 mg PO 2XD 07/31/24 08/10/24 release ursodiol 500 mg tablet 500 mg PO 2XD 07/31/24 08/10/24 Previous Rx's Medication Instructions Recorded magnesium oxide 400 mg (241.3 mg 800 mg (2 x 400 mg (241.3 mg 06/03/24 magnesium) tablet magnesium)) PO BID 30 days #120 tabs potassium chloride 20 mEq 40 meq (2 x 20 mEq) PO TID 30 days 06/03/24 tablet,extended release #180 tabs acamprosate 333 mg tablet,delayed See Rx Instructions .Route 08/03/24 release .COMPLEX #0 tabs venlafaxine 37.5 mg 37.5 mg PO DAILY #30 caps 08/03/24 capsule,extended release 24 hr (Effexor XR) Results & Data (ED) Vital Signs Vital Signs - 24 hr 08/10/24 09:52 08/10/24 10:34 08/10/24 10:47 Temperature 36.7 C Temperature Source Temporal Artery Scan Pulse Rate 141 H 93 H Pulse Rate [Apical] Respiratory Rate 20 Respiratory Effort / Characteristics Non-Labored Spontaneous Respiratory Depth Normal Blood Pressure 144/98 H Blood Pressure [Right Arm] Blood Pressure Mean 113 Blood Pressure Mean [Right Arm] Blood Pressure Position Sitting Blood Pressure Position [Right Arm] Pulse Oximetry 98 Oxygen Delivery Method Room Air Room Air Sepsis Recent Fever Within 48 Hours No Sepsis New/Unexplained Change in Mental Status No Sepsis Action Taken by Nursing No Action Required 08/10/24 11:30 08/10/24 13:13 08/10/24 14:43 Temperature 37.1 C Temperature Source Oral Pulse Rate 93 H Pulse Rate [Apical] 79 91 H Respiratory Rate 21 20 Respiratory Effort / Characteristics Non-Labored Spontaneous Non-Labored Spontaneous Respiratory Depth Normal Normal Blood Pressure Blood Pressure [Right Arm] 111/63 125/70 Blood Pressure Mean Blood Pressure Mean [Right Arm] 79 88 Blood Pressure Position Blood Pressure Position [Right Arm] Lying Lying Pulse Oximetry 97 97 Oxygen Delivery Method Room Air Room Air Sepsis Recent Fever Within 48 Hours Sepsis New/Unexplained Change in Mental Status Sepsis Action Taken by Nursing 08/10/24 14:45 Temperature 36.9 C Temperature Source Oral Pulse Rate Pulse Rate [Apical] 93 H Respiratory Rate 18 Respiratory Effort / Characteristics Non-Labored Spontaneous Respiratory Depth Normal Blood Pressure Blood Pressure [Right Arm] 111/72 Blood Pressure Mean Blood Pressure Mean [Right Arm] 85 Blood Pressure Position Blood Pressure Position [Right Arm] Pulse Oximetry 96 Oxygen Delivery Method Room Air Sepsis Recent Fever Within 48 Hours Sepsis New/Unexplained Change in Mental Status Sepsis Action Taken by Nursing Laboratory Data 08/10/24 10:40 08/10/24 10:40 Lab Results 08/10/24 08/10/24 Range/Units 10:40 12:45 WBC 3.39 L (4.8-10.8) K/ul RBC 2.74 L (4.20-5.40) M/uL Hgb 8.8 L (12.0-16.0) g/dl Hct 25.7 L (37.0-47.0) % MCV 93.8 (80.0-100.0) fL MCH 32.1 (25.0-34.0) pg MCHC 34.2 (32.0-36.0) g/dL RDW Std Deviation 54.2 H (36.4-46.3) fL RDW Coeff of Yasmine 15.6 H (11.5-14.5) % Plt Count 67 L (130-400) K/uL MPV 10.1 (9.4-12.4) fL Immature Gran % (Auto) 0.0 % Neut % (Auto) 61.3 % Lymph % (Auto) 24.8 % Whiteside % (Auto) 11.5 % Eos % (Auto) 1.5 % Baso % (Auto) 0.9 % Neut # (Auto) 2.08 (1.40-6.50) K/uL Lymph # (Auto) 0.84 L (1.20-3.40) K/uL Whiteside # (Auto) 0.39 (0.11-0.59) K/uL Eos # (Auto) 0.05 (0.00-0.50) K/uL Baso # (Auto) 0.03 (0.00-0.20) K/uL Immature Gran # (Auto) 0.00 L (0.01-0.20) K/uL Sodium 144 (136-145) mmol/L Potassium 2.9 L (3.5-5.1) mmol/L Chloride 106 (98-107) mmol/L Carbon Dioxide 27 (21-32) mmol/L Anion Gap 11 (3-11) BUN 4 L (6-23) mg/dl Creatinine 0.75 (0.6-1.2) mg/dl Est Cr Clr Drug Dosing 81.2 ml/min eGFR 105.09 BUN/Creatinine Ratio 5.3 L (10-20) Glucose 84 (70-99(Fasting)) mg/dl Calcium 8.0 L (8.6-10.3) mg/dl Total Bilirubin 3.6 H (0.2-1.0) mg/dl Direct Bilirubin 1.5 H (0-0.2) mg/dl AST 107 H (13-39) U/L ALT 22 (7-52) U/L Alkaline Phosphatase 265 H (34-104) U/L Total Protein 6.6 (6.0-8.3) gm/dl Albumin 3.3 L (3.4-5.0) gm/dl Lipase 30 (11-82) U/L Ethyl Alcohol mg/dL 212.1 H (<10.0) mg/dl Administered Medications Potassium Chloride (K Rviera / Wtr) 10 meq in 100 mls @ 100 mls/hr IV Q1H JUAN; Protocol Stop: 08/10/24 16:14 Last Admin: 08/10/24 14:50 Dose: 100 mls/hr Documented By: Infusion: 08/10/24 14:50 Dose: Infused Documented By: Admin: 08/10/24 14:50 Dose: 100 mls/hr Documented By: Discontinued Medications Diazepam (Diazepam 5 Mg/Ml 10ml Vial) 20 mg IV NOW STA Stop: 08/10/24 10:54 Last Admin: 08/10/24 11:02 Dose: 20 mg Documented By: KENNETH Diazepam (Diazepam 5 Mg/Ml 10ml Vial) 10 mg IV NOW STA Stop: 08/10/24 13:51 Last Admin: 08/10/24 14:08 Dose: 10 mg Documented By: KENNETH Lorazepam (Lorazepam 2 Mg/1 Ml Vial) 1 mg IV ONE PRN; Protocol PRN Reason: EtoH Withdrawal AWSS 6-10 Last Admin: 08/10/24 15:46 Dose: 1 mg Documented By: LINDSEY Potassium Chloride (Potassium Chloride Crtab 20 Meq Tabcr) 40 meq PO NOW STA Stop: 08/10/24 13:58 Last Admin: 08/10/24 14:08 Dose: 40 meq Documented By: TNK Discharge Plan Visit Data Chief Complaint: Detox Request Stated Complaint: DETOX REQUEST ED Provider: Siomara Walker Discharge Problem: Alcohol withdrawal, Alcohol abuse, Hypokalemia Forms Stand Alone Forms: My [facility], Suicide Prevention Resources Prescriptions Prescriptions: No Action montelukast 10 mg Tablet 10 mg PO HS dextroamphetamine-amphetamine [Adderall] 5 mg Tablet 5 mg PO AMPM Rx Instructions: am and 4p.m. loratadine 10 mg Tablet 10 mg PO QAM budesonide-formoterol [Symbicort] 160-4.5 mcg/actuation Hfa Aerosol Inhaler 2 puff INHALATION BID multivitamin Tablet 1 tab PO QAM fluticasone propionate 50 mcg/actuation [place],Suspension 2 spray INTRANASAL QAM PRN (Reason: allergies) ascorbic acid (vitamin C) [Vitamin C] 500 mg Tablet 500 mg PO QAM cholecalciferol (vitamin D3) [Vitamin D3] 50 mcg (2,000 unit) Capsule 50 mcg PO QAM metoclopramide HCl 10 mg Tablet 10 mg PO AMHS PRN (Reason: Nausea) Rx Instructions: administer 30 minutes before meals promethazine 12.5 mg tablet 12.5 mg PO Q6 PRN (Reason: Nausea) folic acid 1 mg tablet 1 mg PO QAM diclofenac sodium [Voltaren Arthritis Pain] 1 % gel 4 g topical TID PRN (Reason: Pain) lactulose 10 gram/15 mL solution 10 g PO QID ondansetron HCl 4 mg tablet 4 mg PO Q8 PRN (Reason: Nausea) furosemide 40 mg tablet 40 mg PO DAILY spironolactone 100 mg tablet 100 mg PO QAM Xifaxan 550 mg tablet 550 mg PO AMHS albuterol sulfate 90 mcg/actuation HFA aerosol inhaler 2 puff INHALATION Q4 PRN (Reason: cough or wheeze) magnesium oxide 400 mg (241.3 mg magnesium) tablet 800 mg PO BID 30 Days Qty: 120 0RF Rx Instructions: take 2 hours before or after Phospha 250 neutral. potassium chloride 20 mEq tablet extended release 40 meq PO TID 30 Days Qty: 180 0RF omeprazole 40 mg capsule,delayed release(DR/EC) 40 mg PO 2XD ursodiol 500 mg tablet 500 mg PO 2XD nicotine 14 mg/24 hr patch 24 hour 1 patch topical 1XD gabapentin 100 mg capsule 100 mg PO 3XD acamprosate 333 mg tablet,delayed release (DR/EC) See Rx Instructions .ROUTE .COMPLEX Qty: 0 0RF Rx Instructions: TAKE 2 TABLETS BY MOUTH IN THE MORNING AND 2 TABLETS AT NOON AND 2 TABLETS BEFORE BEDTIME. venlafaxine [Effexor XR] 37.5 mg capsule,extended release 24hr 37.5 mg PO DAILY Qty: 30 0RF Referrals Referrals: Zaina Bunch MD [Primary Care Provider] -
[2024-08-10] MEDS: POTASSIUM CHLORIDE CRTAB 20 MEQ TABCR PO STA (14:08)
[2024-08-10] MEDS ORDERED: GABAPENTIN 1200MG ALCOHOL WITHDRAWAL LOAD PO STA (14:35)
[2024-08-10] MEDS ORDERED: GABAPENTIN 800MG ALCOHOL WITHDRAWAL LOAD PO STA (14:35)
[2024-08-10] MEDS: POTASSIUM CHLORIDE / WTR 10 MEQ/100 ML PLCT IV SCH (14:50)
--- NOTE | 2024-08-10 15:01 | History & Physical Report ---
Date of Service August 10, 2024 Assessment & Plan (1) Alcohol intoxication: Plan: Known history of Eliquis use disorder, severe and dependence Has been drinking a lot recently and has had mostly yesterday night Questionable seizures as per mother due to exacerbation Very drowsy during examination other distress No signs of withdrawal yet She was started with gabapentin withdrawal protocol (2) Alcohol use disorder, severe, dependence: Plan: As above (3) Intractable nausea and vomiting: Plan: Has had intractable nausea vomiting last night Likely secondary to alcoholism with history of gastroparesis Will have symptomatic management (4) Cirrhosis of liver: Plan: History of cirrhosis of liver from alcohol abuse Status post TIPS resume or decompensated cirrhosis in the past Has an appointment with administrative office specialist in near future Strongly advised to keep her appointment in epic Abnormal LFTs due to cirrhosis Will monitor liver function (5) Hypokalemia: Plan: Secondary to nausea and vomiting Will replace and monitor (6) Pancytopenia: Plan: Mild pancytopenia secondary to alcoholism Will monitor (7) Anxiety disorder, unspecified: Plan: History of major depression with anxiety and suicidal ideation Anxiety is playing a major part of her ongoing alcoholism Will continue her current medications and most likely asked for psychiatric evaluation while in the hospital. Patient surgery History of Present Illness Chief Complaint: Questionable seizure-like activity following alcohol intake she. Primary Care Provider: Zaina Bunch MD She is a 39-year-old female with significant past medical history of with cirrhosis and status post TIPS, pituitary microadenoma, attention deficit disorder without hyperactivity, mild intermittent asthma, recurrent major depressive disorder with anxiety, mild diffuse anemia, history of GI bleed secondary to alcoholic gastritis, gastroparesis, and status post right-sided port placement in July 13 has been complaining of increasing alcohol intake recently and has had questionable seizure-like activity as per mother yesterday. Now she wants to have detox and previously she was denied for inpatient alcoholic rehab and she has been trying to go to inpatient rehab through her primary care physician. Has been very drowsy during examination as because she received multiple doses of intravenous Valium in the emergency room but denies any seizure activity or any suicidal ideation. She mentioned to have patient profound anxiety and wanted to have some help for that. Denies any fever, any pain, but has been having nausea and vomiting since last night. Does not have any chest pain or palpitation or any shortness of Allergies Allergy/AdvReac Type Severity Reaction Status Date / Time banana Allergy Intermediate RASH, Verified 08/01/24 09:36 THROAT SLIGHTLY SWOLLEN Penicillins Allergy Unknown HAPPENED Verified 08/01/24 09:36 A CHILD Home Medications Medication Instructions Recorded Confirmed Type budesonide-formoterol HFA 160 2 puff inhalation BID 06/20/21 08/10/24 History mcg-4.5 mcg/actuation aerosol inhaler (Symbicort) dextroamphetamine-amphetamine 5 mg 5 mg PO AMPM 06/20/21 08/10/24 History tablet (Adderall) loratadine 10 mg tablet 10 mg PO QAM 06/20/21 08/10/24 History montelukast 10 mg tablet 10 mg PO HS 06/20/21 08/10/24 History fluticasone propionate 50 2 spray intranasal QAM PRN 10/03/21 08/10/24 History mcg/actuation nasal allergies spray,suspension multivitamin 1 tab PO QAM 10/03/21 08/10/24 History ascorbic acid (vitamin C) 500 mg 500 mg PO QAM 01/31/22 08/10/24 History tablet (Vitamin C) cholecalciferol (vitamin D3) 50 50 mcg PO QAM 01/31/22 08/10/24 History mcg (2,000 unit) capsule (Vitamin D3) diclofenac sodium 1 % topical gel 4 g topical TID PRN Pain 10/14/22 08/10/24 History (Voltaren Arthritis Pain) metoclopramide HCl 10 mg tablet 10 mg PO AMHS PRN Nausea 01/07/23 08/10/24 History folic acid 1 mg tablet 1 mg PO QAM 09/16/23 08/10/24 History promethazine 12.5 mg tablet 12.5 mg PO Q6 PRN Nausea 09/16/23 08/10/24 History lactulose 10 gram/15 mL oral 10 g PO QID 01/26/24 08/10/24 History solution albuterol sulfate 90 mcg/actuation 2 puff inhalation Q4 PRN cough or 06/02/24 08/10/24 History aerosol inhaler wheeze furosemide 40 mg tablet 40 mg PO DAILY 06/02/24 08/10/24 History ondansetron HCl 4 mg tablet 4 mg PO Q8 PRN Nausea 06/02/24 08/10/24 History rifaximin 550 mg tablet (Xifaxan) 550 mg PO AMHS 06/02/24 08/10/24 History spironolactone 100 mg tablet 100 mg PO QAM 06/02/24 08/10/24 History magnesium oxide 400 mg (241.3 mg 800 mg (2 x 400 mg (241.3 mg 06/03/24 08/10/24 Rx magnesium) tablet magnesium)) PO BID 30 days #120 tabs potassium chloride 20 mEq 40 meq (2 x 20 mEq) PO TID 30 days 06/03/24 08/10/24 Rx tablet,extended release #180 tabs gabapentin 100 mg capsule 100 mg PO 3XD 07/31/24 08/10/24 History nicotine 14 mg/24 hr daily 1 patch topical 1XD 07/31/24 08/10/24 History transdermal patch omeprazole 40 mg capsule,delayed 40 mg PO 2XD 07/31/24 08/10/24 History release ursodiol 500 mg tablet 500 mg PO 2XD 07/31/24 08/10/24 History acamprosate 333 mg tablet,delayed See Rx Instructions .Route 08/03/24 08/10/24 Rx release .COMPLEX #0 tabs venlafaxine 37.5 mg 37.5 mg PO DAILY #30 caps 08/03/24 08/10/24 Rx capsule,extended release 24 hr (Effexor XR) Past Med/Surg History Problem List (Updated 08/10/24 @ 15:52 by Siomara Walker MD) Elevated liver enzymes (Acute) Alcohol intoxication (Acute) Pancytopenia (Acute) Alcohol abuse (Acute) Alcohol withdrawal (Acute) Anxiety disorder, unspecified Depression with suicidal ideation Alcohol use disorder, severe, dependence Alcohol-induced depressive disorder with moderate or severe use disorder Major depression Hypokalemia (Acute) Depression (Acute) Alcohol intoxication (Acute) Alcohol intoxication delirium with moderate or severe use disorder Intractable nausea and vomiting Pancytopenia Decompensated hepatic cirrhosis Weakness (Acute) Anemia (Acute) Cirrhosis of liver (Acute) Acute GI bleeding (Acute) Symptomatic anemia (Acute) Acute GI bleeding (Acute) Coagulopathy Shock circulatory Hematemesis Nausea & vomiting Alcoholic pancreatitis (Acute) 05/2021 treated at [facility] Abnormal CT of the abdomen Acute appendicitis with localized peritonitis Acute appendicitis (Acute) Lab test negative for COVID-19 virus (Acute) Abdominal pain Generalized anxiety disorder Alcohol use disorder Electrolyte abnormality Hyperbilirubinemia (Acute) Abdominal distention Hypokalemia Hypomagnesemia Hyponatremia Tobacco use Cirrhosis (Acute) Hyperbilirubinemia (Acute) Hypomagnesemia (Acute) Hypocalcemia (Acute) Encounter for pre-operative examination Closed rib fracture (Acute) Acute chest wall pain hx-"from a recent fall where she broke some ribs" Depression Asthma well controlled with inhalers Alcohol abuse (Acute) Anxiety ADD (attention deficit disorder) Medical History History of COVID-19 early 2019, tested thru hospital at [place], hospitalized during covid; fatigue, body aches, decreased appetite>resolved. Hemoptysis "sometimes still has this" Fall 06/2022, fx ribs VAN (acute kidney injury) hx Portal hypertension Alcoholic cirrhosis with abn coags Anemia pre-op H&H 04/15/22: 05/15 History of pancreatitis alcoholic 05/2021 per records GERD (gastroesophageal reflux disease) Pneumonia February 2022 treated at [facility]. denies sob currently Thrombocytopenia Jaundice hx-"not very much now" Acute on chronic alcoholic liver disease "currently trying to get on the transplant list" Hypokalemia Acute hyponatremia Hypomagnesemia Hyperbilirubinemia Rectal bleeding "a little when she's constipated" Alcohol abuse with withdrawal Fatty liver Alcoholic hepatitis Surgical History Hx of colonoscopy History of vascular access device 04/2022, [facility] H/O wisdom tooth extraction History of esophagogastroduodenoscopy (EGD) History of abdominal paracentesis Family History Grandmother Breast cancer Grandfather Heart disease Other No family history of adverse response to anesthesia Social History Smoking Status: Never smoker Tobacco Type: Cigarettes Cigarettes Per Day: 1-2; Second Hand Exposure: No; Do You Dip or Chew Tobacco: No; Hx Alcohol Use: Yes Alcohol type: hard liquor Hx Substance Use: Yes Last Used Substance: Days (ago) Last Used Substance Other:: 07/30/2024 Preferred Language: Omani 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 Ability: Effective Filbert Grower Required: No Beliefs That Will Affect Care: None marital status: Single Current Living Situation: Significant Other Current Living Situation Comment: Apartment current occupational status: employed How many Children do You have: 0 Feels Safe at Home: Yes Assistive Devices: Glasses Review of Systems Review of Systems: All systems reviewed and are unremarkable except as noted below Physical Exam Physical Exam: Lying in bed with drowsiness without any apparent distress Constitutional: + ill appearing and average body habitus Eyes: PERRL, conjunctivae normal, anicteric sclerae ENMT: external ear and nose normal, oropharynx normal Neck: trachea midline, no thyromegaly Respiratory: no respiratory distress Auscultation: lungs clear to auscultation bilaterally Cardiovascular: Rate/Rhythm: regular rate and regular rhythm; not tachycardic Heart Sounds: normal S1 and normal S2; no murmur Extremities: no edema Gastrointestinal (Abdomen): Inspection/Auscultation: normal bowel sounds; abdomen not distended Percussion/Palpation: abdomen soft; abdomen nontender Musculoskeletal: No acute arthritis involving any of the joint Neurologic: normal touch/pain/proprioception and moves all extremities; no focal motor deficits Psychiatric: Apperance: appropriately dressed Mood: + depressed mood and + anxious mood Lymphatic: no cervical or axillary lymphadenopathy Results & Data Results & Data Vital Signs (Past 12 Hours) Vital Signs Temp Pulse Pulse Resp BP BP Pulse Ox 08/10/24 13:13 37.1 C 91 H 20 125/70 97 08/10/24 11:30 79 21 111/63 97 08/10/24 10:47 93 H 08/10/24 10:34 08/10/24 09:52 36.7 C 141 H 20 144/98 H 98 O2 Del Method 08/10/24 13:13 Room Air 08/10/24 11:30 Room Air 08/10/24 10:47 08/10/24 10:34 Room Air 08/10/24 09:52 Room Air Laboratory Results Short CBC 08/10/24 Range/Units 10:40 WBC 3.39 L (4.8-10.8) K/ul Hgb 8.8 L (12.0-16.0) g/dl Hct 25.7 L (37.0-47.0) % Plt Count 67 L (130-400) K/uL BMP 08/10/24 10:40 Sodium 144 Potassium 2.9 L Chloride 106 Carbon Dioxide 27 BUN 4 L Creatinine 0.75 Glucose 84 Calcium 8.0 L Liver Function 08/10/24 Range/Units 10:40 Total Bilirubin 3.6 H (0.2-1.0) mg/dl Direct Bilirubin 1.5 H (0-0.2) mg/dl AST 107 H (13-39) U/L ALT 22 (7-52) U/L Alkaline Phosphatase 265 H (34-104) U/L Albumin 3.3 L (3.4-5.0) gm/dl Medications Administered Current Inpatient Medications Gabapentin (Gabapentin 400 Mg Cap) 400 mg PO Q6H JUAN Stop: 08/11/24 02:46 Gabapentin (Gabapentin 400 Mg Cap) 400 mg PO Q8H JUAN Stop: 08/12/24 02:46 Gabapentin (Gabapentin 400 Mg Cap) 400 mg PO Q12H JUAN Stop: 08/13/24 02:46 Gabapentin (Gabapentin 400 Mg Cap) 400 mg PO Q24H JUAN Stop: 08/14/24 02:46 Potassium Chloride (K Rivera / Wtr) 10 meq in 100 mls @ 100 mls/hr IV Q1H JUAN; Protocol Stop: 08/10/24 16:14 Last Admin: 08/10/24 14:50 Dose: 100 mls/hr Lorazepam (Lorazepam 2 Mg/1 Ml Vial) 1 mg IV ONE PRN; Protocol PRN Reason: EtoH Withdrawal AWSS 6-10 Code Status & VTE Plan VTE Prophylaxis Plan VTE Prophylaxis will be ordered: Yes (1) Alcohol intoxication Complication of substance-induced condition: with unspecified complication Qualified Code(s): F10.929 - Alcohol use, unspecified with intoxication, unspecified (4) Cirrhosis of liver Ascites presence: unspecified Hepatic cirrhosis type: unspecified hepatic cirrhosis Qualified Code(s): K74.60 - Unspecified cirrhosis of liver
[2024-08-10] MEDS: LORazepam 2 MG/1 ML VIAL IV PRN ×2 (15:46→21:29)
[2024-08-10] MEDS: GABAPENTIN 400 MG CAP PO ONE (16:04)
[2024-08-10] MEDS ORDERED: ALBUTEROL HFA 8 GM INHALER INH PRN (17:20)
[2024-08-10] MEDS ORDERED: FLUTICASONE PROPIONATE NA SPR 16 GM BTL PRN (17:20)
[2024-08-10] MEDS ORDERED: DICLOFENAC SOD 1% GEL 100 GM TUBE EXT PRN (17:20)
[2024-08-10] MEDS: NICOTINE 14 MG/24 HR PATCH TD SCH (19:02)
[2024-08-10] MEDS ORDERED: MAGNESIUM OXIDE 400 MG TAB PO SCH (21:00)
[2024-08-10] MEDS: GABAPENTIN 400 MG CAP PO SCH (21:09)
[2024-08-10] MEDS ORDERED: LORazepam 2 MG/1 ML VIAL IV PRN (21:11)
[2024-08-10] MEDS ORDERED: Ativan IV Alcohol Withdrawal--Active Protocol IV PRN (21:11)
--- NOTE | 2024-08-10 21:18 | Electrocardiogram Report ---
Test Reason : Blood Pressure : */* mmHG Vent. Rate : 88 BPM Atrial Rate : 88 BPM P-R Int : 178 ms QRS Dur : 86 ms QT Int : 400 ms P-R-T Axes : 43 -35 37 degrees QTcB Int : 484 ms Normal sinus rhythm Left axis deviation Inferior infarct (cited on or before 30-Jun-2022) Poor R wave progression, consider anterior ME vs. lead placement vs. LVH Prolonged QT Abnormal ECG When compared with ECG of 03-Aug-2024 23:03, No significant change was found Confirmed by Ellito Knight ([id number]) on 08/10/2024 9:18:07 PM Referred By: Confirmed By: Elliot Knight
[2024-08-10] MEDS: PROMETHAZINE HCL 25 MG TAB PO PRN (22:43)
[2024-08-10] MEDS: POTASSIUM CHLORIDE CRTAB 20 MEQ TABCR PO SCH (22:43)
[2024-08-10] MEDS: PANTOprazole 40 MG TAB PO SCH (22:44)
[2024-08-10] MEDS: LACTULOSE SYRUP 10 GM/15 ML BTL 960 ML PO SCH (22:44)
[2024-08-10] MEDS: FLUTICASONE/VILANTEROL 200/25MCG 14 PUFFS/INHALER INH SCH (22:44)
[2024-08-10] MEDS: MAGNESIUM OXIDE 400 MG TAB PO SCH (22:44)
[2024-08-10] MEDS: rifAXIMin 550 MG TABLET PO SCH (22:44)
[2024-08-10] MEDS: MONTELUKAST SODIUM 10 MG TABLET PO SCH (22:44)
[2024-08-11] MEDS: HYDROmorphone INJ 0.5 MG/0.5 ML SYR IV STA (06:22)
[2024-08-11] MEDS: VENLAFAXINE HCL XR 37.5 MG CAPXR PO SCH (08:46)
[2024-08-11] MEDS: FOLIC ACID 1 MG TAB PO SCH (08:46)
[2024-08-11] MEDS: MULTIVITAMIN TAB PO SCH (08:46)
[2024-08-11] MEDS: CHOLECALCIFEROL 25 MCG (1000 UNITS) TAB PO SCH (08:46)
[2024-08-11] MEDS: DEXTROAMPHETAMINE/AMPHETAMIME IR 5 MG TAB PO SCH (08:46)
[2024-08-11] MEDS: ASCORBIC ACID 500 MG TAB PO SCH (08:47)
[2024-08-11] MEDS: LORATADINE 10 MG TAB PO SCH (08:47)
[2024-08-11] MEDS: SPIRONOLACTONE 100 MG TAB PO SCH (08:47)
[2024-08-11 08:53] LABS: Albumin Level 2.9 gm/dl (3.4-5.0); BUN Creatinine Ratio 5.6 (10-20); Bilirubin,Total 3.9 mg/dl (0.2-1.0); Calcium 7.8 mg/dl (8.6-10.3); Creatinine Clr Calc Pharmacy 85.8 ml/min; Magnesium 1.2 mg/dl (1.7-2.4); Potassium 3.9 mmol/L (3.5-5.1); Total Protein 5.9 gm/dl (6.0-8.3)
[2024-08-11 08:55] LABS: Basophilic Stippling 1+; Basophils # (auto) 0.01 K/uL (0.00-0.20); Basophils % (auto) 0.7 %; Eosinophils # (auto) 0.02 K/uL (0.00-0.50); Eosinophils % (auto) 1.3 %; Hematocrit (blood only) 26.5 % (37.0-47.0); Hemoglobin 8.9 g/dl (12.0-16.0); Lymphocytes # (auto) 0.54 K/uL (1.20-3.40); Lymphocytes % (auto) 35.3 %; Mean Corpuscular Hemoglobin 32.5 pg (25.0-34.0); Mean Corpuscular Hgb Conc 33.6 g/dL (32.0-36.0); Mean Corpuscular Volume 96.7 fL (80.0-100.0); Mean Platelet Volume 10.3 fL (9.4-12.4); Monocytes # (auto) 0.18 K/uL (0.11-0.59); Monocytes % (auto) 11.8 %; Neutrophils # (auto) 0.78 K/uL (1.40-6.50); Neutrophils % (auto) 50.9 %; Platelet Count 26 K/uL (130-400); Platelet Estimate Decreased (Normal); RDW Coefficient of Variation 15.3 % (11.5-14.5); RDW Standard Deviation 54.1 fL (36.4-46.3); Red Blood Count 2.74 M/uL (4.20-5.40); White Blood Count 1.53 K/ul (4.8-10.8)
[2024-08-11] MEDS: LORazepam 2 MG/1 ML VIAL IV PRN (08:55)
--- NOTE | 2024-08-11 09:09 | Hospitalist Progress Note ---
Date of Service August 11, 2024 Assessment & Plan (1) Alcohol intoxication: (2) Alcohol use disorder, severe, dependence: Plan: Patient has a known history of Eliquis use disorder; reports not Reports her last drink was 08/10 at 0300; reports she drinks eight liquor shooters daily (99 proof) Reports having seizure last month during detox She is drowsy, but arousable to have full conversation appropriately. Reports that she is generally anxious about detox, but has been trying to get established with [facility] rehab, but exceeds their care capabilities with her advanced cirrhosis Very drowsy during examination other distress No signs of withdrawal yet; no tremulous activity She received Valium in the ED; reports requiring phenobarbitol during an admission in [place] MELD score 16 AWSS score has been hovering around 3 today; she has received a total of 1.5 mg of Ativan today so far. (3) Intractable nausea and vomiting: Plan: Has had intractable nausea vomiting last night as a withdrawal symptom; no active nausea or vomiting this AM Likely secondary to alcoholism with history of gastroparesis Continue with symptomatic treatment PRN for nausea. (4) Cirrhosis of liver: Plan: History of cirrhosis of liver from alcohol abuse; reportedly is stage IV Status post TIPS (September 2023) Has an appointment with mechanical engineering lecturer in near future Strongly advised to keep her appointment in [facility] Pt has been actively attempting to be enrolled in an inpatient rehab center, but thus far is unable to be placed due to her advanced liver cirrhosis. MELD score 16 Abnormal LFTs due to cirrhosis: AST: 107 Alk Phos: 265 Lipase 30 Trend LFT's (5) Hypokalemia: (6) Hypomagnesemia: (7) Hypophosphatemia: Plan: Likely secondary to N/V K+ on admission was 2.9; given 40 mEq PO and started on K+ 40 mEq PO TID; K+ this AM: 3.9 Mg+ 1.2; replaced with 2G IV. She takes Mg+ Ox at home Phos+ 2.0; replace with Neutrophos 2 tab once No ectopy on monitor; is tachycardic Trend BMP, Mg+, Phos+ this evening or sooner if she would have N/V (8) Pancytopenia: Plan: Mild pancytopenia secondary to alcoholism Has a history of splenomegaly: spleen measuring 17 cm Labile platelet count; was 60--> 26. Ranges from 20's-110's. Type and Screen ordered Hold on transfusion unless signs of active bleeding or if plt drop < 10; placing patient at risk for spontaneous hemorrhage Will place on bedrest for extra precaution (9) Anxiety disorder, unspecified: Plan: History of major depression with anxiety and suicidal ideation Anxiety is playing a major part of her ongoing alcoholism Will continue her current medications and patient is receptive for inpatient psych/[facility] evaluation Of note, was recently started on Effexor for which she states has been effective. Admission and Anticipated Discharge Date Admission Date: August 10, 2024 Supervising Physician Co-Signing Physician Notes Patient seen and examined Agree with findings and plans as detailed by Yecenia OVERTON and take full responsibility Subjective Pt sitting in her hospital bed in no apparent distress. Her last drink was 08/10 at 0300; reports she drinks eight liquor shooters daily (99 proof) Pt reports blurry vision. No current N/V; experienced numerous > 10 episodes of vomiting since admission; reports small amount of blood in vomit, but this is not continuing. denies new ecchymosis. Does not have an aura prior to seizure activity. Complaints of mandibular pain; suspect related to vomiting; encouraged conservative treatment with ice/heat alteration vs narcotic Denies current SI/SA since this admission. Reports being receptive to seeing [facility] - see below for their recommendations/note Discussed her previous admissions as outlined below. Review of Systems Review of Systems: Neuro: (-) Falls, trauma, slurred speech HEENT: (+) [place], dizziness, dysphagia, auditory changes CV: (-) CP, palpitations, swelling Resp: (-) SOB GI: (-) appetite changes, (+) N/V (-) D, bowel changes : (-) urinary changes Skin: (-) rashes Psych: (+) anxiety, depression (-) SI/SA Physical Exam Physical Exam: Neuro: AAOx4, PERRLA, no aphagia, memory changes, CNII-XII grossly intact HEENT: head normocephalic, moist mucus membranes. (-) oral ulcers CV: S1/S2, tachycardic, (-) M/G/R, (-) edema, cap refill < 3 seconds Resp: Lungs CTA in all fuentes. On RA GI: Abdomen S/NT/ND, Ax4 bowel sounds, (-) CVA tenderness Musculoskeletal: 4/5 B/L UE strength, 4/5 B/L LE strength. Generally weak. Skin: (-) rashes , (-) erythema. Psych: tired/flat mood Results & Data Results & Data Vital Signs (Past 12 Hours) Vital Signs Temp Pulse Pulse Pulse Resp BP BP 08/11/24 08:00 37.3 C 105 H 20 104/66 08/11/24 05:50 109 H 08/11/24 02:28 37 C 115 H 16 101/65 08/10/24 23:29 37.1 C 105 H 16 117/69 08/10/24 21:18 96 H Pulse Ox O2 Del Method 08/11/24 08:00 94 Room Air 08/11/24 05:50 08/11/24 02:28 93 Room Air 08/10/24 23:29 93 Room Air 08/10/24 21:18 Laboratory Results Short CBC 08/10/24 08/11/24 Range/Units 10:40 08:00 WBC 3.39 L 1.53 L (4.8-10.8) K/ul Hgb 8.8 L 8.9 L (12.0-16.0) g/dl Hct 25.7 L 26.5 L (37.0-47.0) % Plt Count 67 L 26 L* D (130-400) K/uL BMP 08/10/24 08/11/24 10:40 08:00 Sodium 144 141 Potassium 2.9 L 3.9 D Chloride 106 109 H Carbon Dioxide 27 26 BUN 4 L 4 L Creatinine 0.75 0.71 Glucose 84 79 Calcium 8.0 L 7.8 L Liver Function 08/10/24 08/11/24 Range/Units 10:40 08:00 Total Bilirubin 3.6 H 3.9 H (0.2-1.0) mg/dl Direct Bilirubin 1.5 H (0-0.2) mg/dl AST 107 H 88 H (13-39) U/L ALT 22 20 (7-52) U/L Alkaline Phosphatase 265 H 239 H (34-104) U/L Albumin 3.3 L 2.9 L (3.4-5.0) gm/dl (1) Alcohol intoxication Complication of substance-induced condition: with unspecified complication Qualified Code(s): F10.929 - Alcohol use, unspecified with intoxication, unspecified (4) Cirrhosis of liver Ascites presence: unspecified Hepatic cirrhosis type: unspecified hepatic cirrhosis Qualified Code(s): K74.60 - Unspecified cirrhosis of liver
[2024-08-11] MEDS: MAGNESIUM SULFATE / D5W 1 GM/100 ML BAG IV SCH (09:28)
[2024-08-11 10:03] LABS: INR 1.3 (0.9-1.1); Prothrombin Time 14.2 Seconds (9.0-12.0)
[2024-08-11] MEDS: GABAPENTIN 400 MG CAP PO SCH (11:01)
[2024-08-11] MEDS: POT PHOSPHATE MONOBASIC W/ SOD TAB PO ONE (11:16)
[2024-08-11] MEDS: LORazepam 2 MG/1 ML VIAL IV STA (15:58)
[2024-08-11 17:03] LABS: BUN Creatinine Ratio 3.9 (10-20); Calcium 8.1 mg/dl (8.6-10.3); Creatinine Clr Calc Pharmacy 80.2 ml/min
[2024-08-11] MEDS: diazePAM 5 MG/ML 10ML VIAL IV STA (22:50)
--- NOTE | 2024-08-12 07:09 | Hospitalist Progress Note ---
Date of Service August 12, 2024 Assessment & Plan (1) Alcohol intoxication: (2) Alcohol use disorder, severe, dependence: Plan: Patient has a known history of Eliquis use disorder; reports not Reports her last drink was 08/10 at 0300; reports she drinks eight liquor shooters daily (99 proof) Reports having seizure last month during detox She is drowsy, but arousable to have full conversation appropriately. Reports that she is generally anxious about detox, but has been trying to get established with [facility] rehab, but exceeds their care capabilities with her advanced cirrhosis Reports requiring phenobarbital during an admission in [place] with intubation 08/11-08/12 overnight: AWSS ranged 4-6; received Ativan 1mg x1, Ativan 2mg x2 and Valium 5mg x1. Ordered additional Valium 5 mg this AM (3) Hemoptysis: Plan: Overnight started to have hemoptysis (with clots); oral cavity clean of active ulcers/bleeding; suspect r/t esophageal varices d/t history. (-) new ecchymosis on limbs Reports that she does have intermittent hemoptysis CXR negative No signs of respiratory distress (4) Intractable nausea and vomiting: Plan: Has had intractable nausea vomiting last night as a withdrawal symptom; no active nausea or vomiting this AM Likely secondary to alcoholism with history of gastroparesis Continue with symptomatic treatment PRN for nausea. (5) Cirrhosis of liver: Plan: History of cirrhosis of liver from alcohol abuse; reportedly is stage IV Status post TIPS (September 2023) Has an appointment with dog license officer supervisor in near future Strongly advised to keep her appointment in epic Mandibular pain improving; suspect related to vomiting; encouraged conservative treatment with ice/heat alteration Confirmed she is receptive to inpatient rehab when stable MELD score 16 08/11 Abnormal LFTs due to cirrhosis: AST: 107 Alk Phos: 265 Lipase 30 Trend LFT's (6) Hypokalemia: (7) Hypomagnesemia: (8) Hypophosphatemia: Plan: Likely secondary to N/V Required K+ replacement on admission; 08/12 K+ 4.5 Mg+ 1.5 this AM; replace with 2G IV Required Phos+ replacement on 08/11; 08/12 Phos 2.6 No ectopy on monitor; is tachycardic as expected low 100's Trend BMP, Mg+, Phos+ in AM (9) Pancytopenia: Plan: Mild pancytopenia secondary to alcoholism Has a history of splenomegaly: spleen measuring 17 cm Labile platelet count; was 60--> 26. Ranges from 20's-110's. 08/12: plt 25, Hgb 8.7 Type and Screen ordered Hold on transfusion unless signs of active bleeding or if plt drop < 10; placing patient at risk for spontaneous hemorrhage Will place on bedrest for extra precaution (10) Anxiety disorder, unspecified: Plan: History of major depression with anxiety and suicidal ideation Anxiety is playing a major part of her ongoing alcoholism Will continue her current medications and patient is receptive for inpatient psych/[facility] evaluation Of note, was recently started on Effexor for which she states has been effective Denies current SI/SA; notes that her triggers to drink include challenges with family and money frustrations reports that she is willing to go to inpatient rehab when able Admission and Anticipated Discharge Date Admission Date: August 10, 2024 Supervising Physician Co-Signing Physician Notes Patient seen and examined Agree with plans as detailed by Yecenia OVERTON Subjective Pt resting in her hospital bed with her eyes shut; awakened easily to verbal stimuli. No current N/V; experienced numerous > 10 episodes of vomiting since admission. Overnight started to have hemoptysis (with clots); oral cavity clean of active u lcers/bleeding; suspect r/t esophageal varices d/t history. (-) new ecchymosis No delirium/AMS noted. Mandibular pain improving; suspect related to vomiting; encouraged conservative treatment with ice/heat alteration Denies current SI/SA; notes that her triggers to drink include challenges with family and money frustrations Confirmed she is receptive to inpatient rehab when stable Discussed her previous admissions as outlined below. Review of Systems Review of Systems: Neuro: (-) Falls, trauma, slurred speech HEENT: (+) [place], dizziness, dysphagia, auditory changes CV: (-) CP, palpitations, swelling Resp: (-) SOB GI: (-) appetite changes, (+) N/V (-) D, bowel changes(+) intermittent hemoptysis (with clots) : (-) urinary changes Skin: (-) rashes Psych: (+) anxiety, depression (-) SI/SA Physical Exam Physical Exam: Neuro: AAOx4, PERRLA, no aphagia, memory changes, CNII-XII grossly intact HEENT: head normocephalic, moist mucus membranes. (-) oral ulcers CV: S1/S2, tachycardic, (-) M/G/R, (-) edema, cap refill < 3 seconds Resp: Lungs CTA in all fuentes. On RA GI: Abdomen S/NT/ND, Ax4 bowel sounds, (-) CVA tenderness Musculoskeletal: 4/5 B/L UE strength, 4/5 B/L LE strength. Generally weak. Skin: (-) rashes , (-) erythema. Psych: tired/flat mood Results & Data Results & Data Vital Signs (Past 12 Hours) Vital Signs Temp Pulse Pulse Resp BP Pulse Ox O2 Del Method 08/12/24 05:41 36.8 C 111 H 18 122/78 93 Room Air 08/12/24 03:15 37.0 C 110 H 18 119/78 96 Room Air 08/12/24 02:54 37 C 110 H 16 119/78 96 Room Air 08/12/24 00:34 36.7 C 111 H 18 124/80 95 Room Air 08/11/24 22:58 36.9 C 78 18 115/74 96 Room Air 08/11/24 21:45 114 H 08/11/24 19:50 37.2 C 76 18 119/75 94 Room Air Laboratory Results Short CBC 08/11/24 Range/Units 08:00 WBC 1.53 L (4.8-10.8) K/ul Hgb 8.9 L (12.0-16.0) g/dl Hct 26.5 L (37.0-47.0) % Plt Count 26 L* D (130-400) K/uL BMP 08/11/24 08/11/24 08:00 15:54 Sodium 141 136 Potassium 3.9 D 4.0 Chloride 109 H 107 Carbon Dioxide 26 24 BUN 4 L 3 L Creatinine 0.71 0.76 Glucose 79 127 H Calcium 7.8 L 8.1 L Liver Function 08/11/24 Range/Units 08:00 Total Bilirubin 3.9 H (0.2-1.0) mg/dl AST 88 H (13-39) U/L ALT 20 (7-52) U/L Alkaline Phosphatase 239 H (34-104) U/L Albumin 2.9 L (3.4-5.0) gm/dl (1) Alcohol intoxication Complication of substance-induced condition: with unspecified complication Qualified Code(s): F10.929 - Alcohol use, unspecified with intoxication, unspecified (5) Cirrhosis of liver Ascites presence: unspecified Hepatic cirrhosis type: unspecified hepatic cirrhosis Qualified Code(s): K74.60 - Unspecified cirrhosis of liver
[2024-08-12] MEDS: diazePAM 5 MG/ML 10ML VIAL IV ONE (08:33)
[2024-08-12 08:39] LABS: Hemoglobin 8.7 g/dl (12.0-16.0); Mean Corpuscular Hemoglobin 32.5 pg (25.0-34.0); Mean Corpuscular Hgb Conc 33.5 g/dL (32.0-36.0); Mean Platelet Volume 11.5 fL (9.4-12.4); Platelet Count 25 K/uL (130-400); RDW Coefficient of Variation 14.8 % (11.5-14.5); RDW Standard Deviation 52.7 fL (36.4-46.3); Red Blood Count 2.68 M/uL (4.20-5.40); White Blood Count 2.01 K/ul (4.8-10.8)
[2024-08-12 08:40] LABS: Magnesium 1.5 mg/dl (1.7-2.4); Phosphorus 2.6 mg/dl (2.5-4.9)
[2024-08-12 08:41] LABS: BUN Creatinine Ratio 3.2 (10-20); Calcium 7.7 mg/dl (8.6-10.3); Creatinine Clr Calc Pharmacy 96.7 ml/min; Potassium 4.5 mmol/L (3.5-5.1)
[2024-08-12 08:57] LABS: INR 1.5 (0.9-1.1); Prothrombin Time 15.8 Seconds (9.0-12.0)
[2024-08-12] MEDS: MAGNESIUM SULFATE / D5W 1 GM/100 ML BAG IV SCH (09:48)
--- NOTE | 2024-08-12 11:11 | XRay Report ---
XR chest 1V portable HISTORY: 39 years-old Female hemoptysis COMPARISON: 06/02/2024 TECHNIQUE: AP view of the chest FINDINGS: Cardiac silhouette is unchanged. Right IJ Oukcgc-[id number] catheter appears stable. No pneumothorax, ple ural effusion, airspace consolidation or pulmonary edema. Mild sigmoidal scoliosis of the spine redem onstrated. The bones appear grossly intact. IMPRESSION: No acute process. ACT 112: Negative or not required by law. The above report was generated using voice recognition software. It may contain grammatical, syntax o r spelling errors. Electronically signed by: Bud Madera M.D. 08/12/2024 11:08 AM
[2024-08-12] MEDS: THIAMINE HCL 100 MG in SYRINGE 9 ML IV SCH (13:04)
[2024-08-12] MEDS: diazePAM 5 MG/ML 10ML VIAL IV STA (15:47)
[2024-08-12] MEDS: GABAPENTIN 400 MG CAP PO SCH (15:50)
[2024-08-12 15:55] LABS: Hematocrit (blood only) 26.8 % (37.0-47.0); Hemoglobin 8.9 g/dl (12.0-16.0); Mean Corpuscular Hemoglobin 32.2 pg (25.0-34.0); Mean Corpuscular Hgb Conc 33.2 g/dL (32.0-36.0); Mean Corpuscular Volume 97.1 fL (80.0-100.0); Mean Platelet Volume 12.3 fL (9.4-12.4); Platelet Count 30 K/uL (130-400); RDW Coefficient of Variation 14.8 % (11.5-14.5); RDW Standard Deviation 53.3 fL (36.4-46.3); Red Blood Count 2.76 M/uL (4.20-5.40); White Blood Count 2.62 K/ul (4.8-10.8)
[2024-08-13 06:48] LABS: Hematocrit (blood only) 27.3 % (37.0-47.0); Hemoglobin 9.1 g/dl (12.0-16.0); Mean Corpuscular Hemoglobin 32.3 pg (25.0-34.0); Mean Corpuscular Hgb Conc 33.3 g/dL (32.0-36.0); Mean Corpuscular Volume 96.8 fL (80.0-100.0); Mean Platelet Volume 12.3 fL (9.4-12.4); Platelet Count 28 K/uL (130-400); RDW Coefficient of Variation 14.8 % (11.5-14.5); RDW Standard Deviation 52.3 fL (36.4-46.3); Red Blood Count 2.82 M/uL (4.20-5.40); White Blood Count 3.34 K/ul (4.8-10.8)
[2024-08-13 06:58] LABS: Bilirubin,Total 3.9 mg/dl (0.2-1.0); Calcium 8.1 mg/dl (8.6-10.3); Creatinine Clr Calc Pharmacy 81.2 ml/min; Magnesium 1.6 mg/dl (1.7-2.4); Phosphorus 3.3 mg/dl (2.5-4.9); Potassium 4.6 mmol/L (3.5-5.1)
[2024-08-13 08:12] VITALS: RESP 18
[2024-08-13] MEDS: MAGNESIUM SULFATE / D5W 1 GM/100 ML BAG IV ONE (08:54)
--- NOTE | 2024-08-13 09:30 | Hospitalist Progress Note ---
Date of Service August 13, 2024 Assessment & Plan (1) Alcohol intoxication: (2) Alcohol withdrawal: (3) Alcohol use disorder, severe, dependence: Plan Kathie Burr is a 39y/o F with PMHx significant for alcohol use disorder, advanced alcoholic cirrhosis with ascites s/p TIPS procedure, portal hypertension, alcoholic gastritis, history of port catheter placement, pituitary microadenoma, asthma, ADD, depression/anxiety, iron deficiency anemia, gastroparesis and thrombocytopenia who presented to the ED on 08/10/2024 secondary to acute alcohol intoxication with request to detox. Alcohol Use Disorder/Alcohol Withdrawal & Alcoholic Cirrhosis S/P TIPS Procedu re: Patient has a known history of alcohol use disorder - last reported drink was on 08/10/2024 at 03:00 (mentions she drinks eight liquor shooters daily - 99 proof). Reports she had a seizure last month during a previous detox. She is still somewhat drowsy but arousable to have full conversation appropriately. Reports requiring phenobarbital during an admission at [facility] with hernandez bsequent intubation. Continue to monitor AWSS score. Continue PRN antiemetics. Abnormal LFTs 2/2 cirrhosis, continue monitor liver function. 08/12-08/13 overnight: AWSS ranged from 2-8 -> Received IV Ativan 1mg x 3, IV Ativan 2mg x 3. Had IV Valium 5mg yesterday afternoon. On gabapentin withdrawal protocol. Electrolyte Abnormalities: Mag 1.6 today, repleted with IV Mag x 1 bag; other electrolyte levels stable for now. Continue to closely monitor her electrolytes and manage PRN. Pancytopenia: Mild pancytopenia secondary to alcoholism/cirrhosis. Platelet count ranges from 20s-110ks per chart review, 28k today. Bedrest precautions. Type/screen ordered. Hold on transfusion unless signs of active bleeding or if plt ct drops < 10 - placing patient at risk for spontaneous hemorrhage. Anxiety/Depression: History of major depression with anxiety and suicidal ideation. Anxiety is playing a major part of her ongoing alcoholism. Will continue her current medications. Of note, was recently started on Effexor for which she states has been effective. Denies current SI/SA; notes that her triggers to drink include challenges with family and money frustrations. Reports that she is willing to go to inpatient rehab when able. DVT Prophylaxis: SCDs/TEDs for now ISO anemia/thrombocytopenia. Code Status: FULL CODE PCP: Zaina Bunch MD Disposition: Admitted in PCU/Telemetry - Due to the patient's medical history, the only 2 locations that will accept her for rehab placement are [facility] and [facility]. Patient currently refusing to go to [facility] but is agreeable to [facility] if a bed becomes available. Patient has an addiction coordinator, Armando Saez, whom CM has been in touch with. Patient seen in collaboration with Dr. Palumbo. Please see addendum. I spent a total of 55 minutes coordinating, documenting, and providing care for this patient excluding time spent in the performance of separately billed services. This included personally reviewing all current laboratories and imaging studies, medical reconciliation, outpatient chart review and discussion with specialists. This chart was completed in part utilizing Speech Voice Recognition Software. Grammatical errors, random word insertions, pronoun errors, and incomplete sentences are an occasional consequence of this system due to software limitations, ambient noise, and hardware issues. Any formal questions or concerns about the content, text, or information contained within the body of this dictation should be directly addressed to the provider for clarification. Admission and Anticipated Discharge Date Admission Date: August 10, 2024 Supervising Physician Co-Signing Physician Notes Patient seen and examined Agree with plans as detailed by Margi Alvarado PA-C Subjective Patient seen and examined at bedside this morning. She was asleep in her hospital bed when I entered the room but was easily awaken to verbal stimuli. Reports that she slept very well overnight. No nausea or vomiting overnight, denies any ongoing hemoptysis. No delirium/AMS noted. Denies any current suicidal or homicidal ideations. Denies any tremors this morning. She is receptive to inpatient alcohol rehabilitation. She has received IV 1mg Ativan x 3 doses and IV 2mg Ativan x 1 dose today so far. Her AWSS score has ranged between 3-7 today. Review of Systems Review of Systems: At least ten systems reviewed and negative, except as noted in the subjective section. Physical Exam Physical Exam: General: NAD, laying down in bed, sleepy but easily arousable, looks quite tired, pleasant conversing appropriately. A+Ox3, flat affect. HEENT: Normocephalic, atraumatic. Conjunctivae normal, anicteric sclerae. External ear and nose normal, oropharynx normal. Respiratory: Normal respiratory effort, lungs clear to auscultation, no wheeze/rales/rhonchi. No accessory muscle use. Cardiovascular: Tachycardic rate, regular rhythm, normal peripheral pulses, no BLE edema. Vessels: No JVD. Abdomen/GI: Active bowel sounds, soft, nondistended, nontender to palpation in all quadrants. Extremities/Musculoskeletal: No cyanosis or clubbing, extremities motor strength not tested, moves all extremities. Neurologic: No overt focal deficits, CN's II-XI not formally tested but appear grossly intact bilaterally. No tremulous behavior on exam. Skin: No rashes, normal color, warm/dry. Results & Data Results & Data Vital Signs (Past 12 Hours) Vital Signs Temp Pulse Pulse Resp BP Pulse Ox O2 Del Method 08/13/24 08:11 36.9 C 90 18 99/61 L 97 Room Air 08/13/24 07:20 97 H 08/13/24 05:24 36.8 C 111 H 21 100/65 96 Room Air 08/13/24 04:15 36.8 C 93 H 18 116/82 98 Room Air 08/13/24 00:12 99 H 08/12/24 23:38 36.8 C 109 H 21 117/79 98 Room Air 08/12/24 23:16 36.7 C 95 H 20 104/64 98 Room Air Laboratory Results Short CBC 08/13/24 Range/Units 05:57 WBC 3.34 L (4.8-10.8) K/ul Hgb 9.1 L (12.0-16.0) g/dl Hct 27.3 L (37.0-47.0) % Plt Count 28 L* (130-400) K/uL BMP 08/13/24 05:57 Sodium 137 Potassium 4.6 Chloride 113 H Carbon Dioxide 19 L BUN 3 L Creatinine 0.75 Glucose 75 Calcium 8.1 L Liver Function 08/13/24 Range/Units 05:57 Total Bilirubin 3.9 H (0.2-1.0) mg/dl AST 78 H (13-39) U/L ALT 19 (7-52) U/L Alkaline Phosphatase 227 H (34-104) U/L Albumin 3.0 L (3.4-5.0) gm/dl (1) Alcohol intoxication Complication of substance-induced condition: with unspecified complication Qualified Code(s): F10.929 - Alcohol use, unspecified with intoxication, unspecified (2) Alcohol withdrawal Complication of substance-induced condition: uncomplicated Qualified Code(s): F10.930 - Alcohol use, unspecified with withdrawal, uncomplicated
[2024-08-14] MEDS: diazePAM 2 MG TABLET PO ONE (01:14)
[2024-08-14] MEDS: GABAPENTIN 400 MG CAP PO SCH (03:38)
[2024-08-14 06:24] LABS: Hematocrit (blood only) 27.6 % (37.0-47.0); Hemoglobin 9.4 g/dl (12.0-16.0); Mean Corpuscular Hemoglobin 33.1 pg (25.0-34.0); Mean Corpuscular Hgb Conc 34.1 g/dL (32.0-36.0); Mean Corpuscular Volume 97.2 fL (80.0-100.0); Mean Platelet Volume 11.7 fL (9.4-12.4); Platelet Count 39 K/uL (130-400); RDW Coefficient of Variation 15.1 % (11.5-14.5); RDW Standard Deviation 52.9 fL (36.4-46.3); Red Blood Count 2.84 M/uL (4.20-5.40); White Blood Count 3.99 K/ul (4.8-10.8)
[2024-08-14 06:54] LABS: Albumin Level 3.1 gm/dl (3.4-5.0); BUN Creatinine Ratio 5.6 (10-20); Bilirubin,Total 3.6 mg/dl (0.2-1.0); Calcium 8.4 mg/dl (8.6-10.3); Creatinine Clr Calc Pharmacy 84.6 ml/min; Globulin 3.2 gm/dl (2.5-4.0); Magnesium 1.5 mg/dl (1.7-2.4); Phosphorus 4.3 mg/dl (2.5-4.9); Potassium 4.5 mmol/L (3.5-5.1); Total Protein 6.3 gm/dl (6.0-8.3)
[2024-08-14] MEDS: MAGNESIUM SULFATE / D5W 1 GM/100 ML BAG IV SCH (09:33)
[2024-08-14] MEDS: diazePAM 2 MG TABLET PO PRN (10:52)
--- NOTE | 2024-08-14 14:10 | Hospitalist Progress Note ---
Date of Service August 14, 2024 Assessment & Plan (1) Alcohol intoxication: (2) Alcohol withdrawal: (3) Alcohol use disorder, severe, dependence: Plan Kathie Burr is a 39y/o F with PMHx significant for alcohol use disorder, advanced alcoholic cirrhosis with ascites s/p TIPS procedure, portal hypertension, alcoholic gastritis, history of port catheter placement, pituitary microadenoma, asthma, ADD, depression/anxiety, iron deficiency anemia, gastroparesis and thrombocytopenia who presented to the ED on 08/10/2024 secondary to acute alcohol intoxication with request to detox. Alcohol Use Disorder/Alcohol Withdrawal & Alcoholic Cirrhosis S/P TIPS Procedu re: Patient has a known history of alcohol use disorder - last reported drink was on 08/10/2024 at 03:00 (mentions she drinks eight liquor shooters daily - 99 proof). Reports she had a seizure last month during a previous detox. She is still somewhat drowsy but arousable to have full conversation appropriately. Reports requiring phenobarbital during an admission at [facility] with hernandez bsequent intubation. Continue to monitor AWSS score. Continue PRN antiemetics. Abnormal LFTs 2/2 cirrhosis, continue monitor liver function. 08/13-08/14 overnight: AWSS ranged from 2-6 -> Received IV Ativan 1mg x 1. Also received po Valium 2mg around 1AM 2/2 worsening anxiety overnight. PRN po Valium 2mg TID added on today 2/2 increasing anxiety and hallucinations. She may have a bed available at [facility] per discussion with patient's significant other, Zeb Roebrts - need to check with CM regarding this. Patient has an addiction coordinator through [facility]. Due to patient's medical conditions, the only 2 places that will accept her for rehab are [facility] and [facility]. Patient refusing to go to [facility] but agreeable to [facility]. she would benefit from direct inpatient rehab placement upon discharge. Electrolyte Abnormalities: Mag 1.5 today, repleted with IV Mag x 2 bags; other electrolyte levels stable for now. Continue to closely monitor her electrolytes and manage PRN. Pancytopenia: Mild pancytopenia secondary to alcoholism/cirrhosis. Platelet count ranges from 20s-110ks per chart review, 39k today. Bedrest precautions. Does have some mild bleeding gums this morning. Type/screen previously ordered. Hold on transfusion unless signs of active bleeding or if plt ct drops < 10 - placing patient at risk for spontaneous hemorrhage. Anxiety/Depression: History of major depression with anxiety and suicidal ideation. Anxiety is playing a major part of her ongoing alcoholism. Will continue her current medications. Of note, was recently started on Effexor for which she states has been effective. Denies current SI/SA; notes that her triggers to drink include challenges with family and money frustrations. Reports that she is willing to go to inpatient rehab when able. DVT Prophylaxis: SCDs/TEDs for now ISO anemia/thrombocytopenia. Code Status: FULL CODE PCP: Zaina Bunch MD Disposition: Admitted in PCU/Telemetry - Working on alcohol rehab placement; CM will contact patient's addiction counselor tomorrow to coordinate inpatient rehab. Patient seen in collaboration with Dr. Palumbo. Please see addendum. I spent a total of 50 minutes coordinating, documenting, and providing care for this patient excluding time spent in the performance of separately billed services. This included personally reviewing all current laboratories and imaging studies, medical reconciliation, outpatient chart review and discussion with specialists. This chart was completed in part utilizing Speech Voice Recognition Software. Grammatical errors, random word insertions, pronoun errors, and incomplete sentences are an occasional consequence of this system due to software limitations, ambient noise, and hardware issues. Any formal questions or concerns about the content, text, or information contained within the body of this dictation should be directly addressed to the provider for clarification. Admission and Anticipated Discharge Date Admission Date: August 10, 2024 Subjective Patient seen and examined at bedside. Reports she had 1 episode of vomiting this morning. No hemoptysis but notes her gums have been bleeding intermittently. She has also been experiencing some visual hallucinations since last night. She mentions that she hallucinates someone sitting in the chair in her room and also walking outside of her window. She did not sleep very well last night as has been feeling more anxious but denies any tremulous behavior. Nursing staff reports patient does seem more anxious this morning and that she required a dose of oral Valium overnight. Patient was agreeable to staying another day during our conversation earlier this morning. I was then contacted by nursing staff via [email or web address] around noon because the patient was requesting to be discharged home. Her boyfriend, Zeb Roberts, was present in the room at that time and encouraged her to stay at least another day in order to be discharged directly to inpatient rehabilitation versus going home first then to rehab. Patient changed her mind and decided that she will stay another day upon further discussion. She is still agreeable to inpatient alcohol rehabilitation but still unsure if she wants to be directly discharged to rehab versus going home first. Her nausea is significantly improved this afternoon however she does continue to have hallucinations - which Zeb Roberts did witness in the room. Patient had not mentioned any hallucinations to nursing staff this morning. Review of Systems Review of Systems: At least ten systems reviewed and negative, except as noted in the subjective section. Physical Exam Physical Exam: General: NAD, sitting up in bed, appears quite tired, conversing appropriately, no tremulous behavior, A+Ox3. HEENT: Normocephalic, atraumatic. Conjunctivae normal. External ear and nose normal, oropharynx little dry. Respiratory: Normal respiratory effort, lungs clear to auscultation, no wheeze/rales/rhonchi. No accessory muscle use. Cardiovascular: Tachycardic rate, regular rhythm, normal peripheral pulses, no BLE edema. Vessels: No JVD. Abdomen/GI: Active bowel sounds, soft, nondistended, nontender to palpation in all quadrants. Extremities/Musculoskeletal: No cyanosis or clubbing, extremities motor strength intact, moves all extremities. Neurologic: No overt focal deficits, CN's II-XI not formally tested but appear grossly intact bilaterally. Skin: No rashes, normal color, warm/dry. Results & Data Results & Data Vital Signs (Past 12 Hours) Vital Signs Temp Pulse Resp BP Pulse Ox O2 Del Method 08/14/24 11:18 36.7 C 95 H 18 104/67 94 Room Air 08/14/24 07:17 36.7 C 98 H 18 111/71 99 Room Air 08/14/24 03:42 36.5 C 97 H 18 119/84 98 Room Air Laboratory Results Short CBC 08/14/24 Range/Units 05:52 WBC 3.99 L (4.8-10.8) K/ul Hgb 9.4 L (12.0-16.0) g/dl Hct 27.6 L (37.0-47.0) % Plt Count 39 L (130-400) K/uL BMP 08/14/24 05:52 Sodium 136 Potassium 4.5 Chloride 110 H Carbon Dioxide 19 L BUN 4 L Creatinine 0.72 Glucose 78 Calcium 8.4 L Liver Function 08/14/24 Range/Units 05:52 Total Bilirubin 3.6 H (0.2-1.0) mg/dl AST 58 H (13-39) U/L ALT 17 (7-52) U/L Alkaline Phosphatase 246 H (34-104) U/L Albumin 3.1 L (3.4-5.0) gm/dl (1) Alcohol intoxication Complication of substance-induced condition: with unspecified complication Qualified Code(s): F10.929 - Alcohol use, unspecified with intoxication, unspecified (2) Alcohol withdrawal Complication of substance-induced condition: uncomplicated Qualified Code(s): F10.930 - Alcohol use, unspecified with withdrawal, uncomplicated
[2024-08-14 16:23] VITALS: BP 110/71; PULSE 96; TEMP 97.3; O2SAT 97
--- NOTE | 2024-08-14 19:32 | 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 Note ---
Date of Service: August 14, 2024 Was alerted via [employer] from nursing staff that the patient left AMA this evening around 18:50. Dr. Palumbo made aware via [employer]. AMA paperwork was completed by nursing staff. AMA discharge order also completed.
--- NOTE | 2024-08-14 19:39 | Discharge Summary ---
Discharge Summary Date of Service August 14, 2024 Principal Dx & Hospital Course #1 = Principal Diagnosis (1) Alcohol intoxication: (2) Alcohol withdrawal: (3) Alcohol use disorder, severe, dependence: (4) Left against medical advice: Dewayne Burr is a 39y/o F with PMHx significant for alcohol use disorder, advanced alcoholic cirrhosis with ascites s/p TIPS procedure, portal hypertension, alcoholic gastritis, history of port catheter placement, pituitary microadenoma, asthma, ADD, depression/anxiety, iron deficiency anemia, gastroparesis and thrombocytopenia who presented to the ED on 08/10/2024 secondary to acute alcohol intoxication with request to detox. Alcohol Use Disorder/Alcohol Withdrawal & Alcoholic Cirrhosis S/P TIPS Procedure: Patient has a known history of alcohol use disorder - last reported drink was on 08/10/2024 at 03:00 (mentions she drinks eight liquor shooters daily - 99 proof). Reports she had a seizure last month during a previous detox. Reports requiring phenobarbital during an admission at [facility] with subsequent intubation. Patient unfortunately left AMA this evening around 18:50. Please refer to previous admission documentation for prior clinical course. PCP: Zaina Bunch MD Disposition: Patient left AGAINST MEDICAL ADVICE this evening as per above. Patient seen in collaboration with Dr. Palumbo. Please see addendum. I spent a total of 35 minutes coordinating, documenting, and providing care for this patient excluding time spent in the performance of separately billed services. Notes For Next Care Provider Patient left AMA on 08/14/2024. No inpatient alcohol rehab placement was established prior to her leaving. Medication Changes From Visit N/A - No medication changes were made during this admission. Admission HPI Per Admitting Provider She is a 39-year-old female with significant past medical history of with cirrhosis and status post TIPS, pituitary microadenoma, attention deficit disorder without hyperactivity, mild intermittent asthma, recurrent major depressive disorder with anxiety, mild diffuse anemia, history of GI bleed secondary to alcoholic gastritis, gastroparesis, and status post right-sided port placement in July 13 has been complaining of increasing alcohol intake recently and has had questionable seizure-like activity as per mother yesterday. Now she wants to have detox and previously she was denied for inpatient alcoholic rehab and she has been trying to go to inpatient rehab through her primary care physician. Has been very drowsy during examination as because she received multiple doses of intravenous Valium in the emergency room but denies any seizure activity or any suicidal ideation. She mentioned to have patient profound anxiety and wanted to have some help for that. Denies any fever, any pain, but has been having nausea and vomiting since last night. Does not have any chest pain or palpitation or any shortness of breath. Admission Exam Per Admitting Provider Physical Exam: Lying in bed with drowsiness without any apparent distress Constitutional: + ill appearing and average body habitus Eyes: PERRL, conjunctivae normal, anicteric sclerae ENMT: external ear and nose normal, oropharynx normal Neck: trachea midline, no thyromegaly Respiratory: no respiratory distress Auscultation: lungs clear to auscultation bilaterally Cardiovascular: Rate/Rhythm: regular rate and regular rhythm; not tachycardic Heart Sounds: normal S1 and normal S2; no murmur Extremities: no edema Gastrointestinal (Abdomen): Inspection/Auscultation: normal bowel sounds; abdomen not distended Percussion/Palpation: abdomen soft; abdomen nontender Musculoskeletal: No acute arthritis involving any of the joint Neurologic: normal touch/pain/proprioception and moves all extremities; no focal motor deficits Psychiatric: Apperance: appropriately dressed Mood: + depressed mood and + anxious mood Lymphatic: no cervical or axillary lymphadenopathy Discharge Exam No additional physical exam was performed prior to her leaving AMA; last documented physical exam in today's progress note. Updated Medication List Medication Instructions Recorded Confirmed Type budesonide-formoterol HFA 160 2 puff inhalation BID 06/20/21 08/10/24 History mcg-4.5 mcg/actuation aerosol inhaler (Symbicort) dextroamphetamine-amphetamine 5 mg 5 mg PO AMPM 06/20/21 08/10/24 History tablet (Adderall) loratadine 10 mg tablet 10 mg PO QAM 06/20/21 08/10/24 History montelukast 10 mg tablet 10 mg PO HS 06/20/21 08/10/24 History fluticasone propionate 50 2 spray intranasal QAM PRN 10/03/21 08/10/24 History mcg/actuation nasal allergies spray,suspension multivitamin 1 tab PO QAM 10/03/21 08/10/24 History ascorbic acid (vitamin C) 500 mg 500 mg PO QAM 01/31/22 08/10/24 History tablet (Vitamin C) cholecalciferol (vitamin D3) 50 50 mcg PO QAM 01/31/22 08/10/24 History mcg (2,000 unit) capsule (Vitamin D3) diclofenac sodium 1 % topical gel 4 g topical TID PRN Pain 10/14/22 08/10/24 History (Voltaren Arthritis Pain) metoclopramide HCl 10 mg tablet 10 mg PO AMHS PRN Nausea 01/07/23 08/10/24 History folic acid 1 mg tablet 1 mg PO QAM 09/16/23 08/10/24 History promethazine 12.5 mg tablet 12.5 mg PO Q6 PRN Nausea 09/16/23 08/10/24 History lactulose 10 gram/15 mL oral 10 g PO QID 01/26/24 08/10/24 History solution albuterol sulfate 90 mcg/actuation 2 puff inhalation Q4 PRN cough or 06/02/24 08/10/24 History aerosol inhaler wheeze furosemide 40 mg tablet 40 mg PO DAILY 06/02/24 08/10/24 History ondansetron HCl 4 mg tablet 4 mg PO Q8 PRN Nausea 06/02/24 08/10/24 History rifaximin 550 mg tablet (Xifaxan) 550 mg PO AMHS 06/02/24 08/10/24 History spironolactone 100 mg tablet 100 mg PO QAM 06/02/24 08/10/24 History magnesium oxide 400 mg (241.3 mg 800 mg (2 x 400 mg (241.3 mg 06/03/24 08/10/24 Rx magnesium) tablet magnesium)) PO BID 30 days #120 tabs potassium chloride 20 mEq 40 meq (2 x 20 mEq) PO TID 30 days 06/03/24 08/10/24 Rx tablet,extended release #180 tabs gabapentin 100 mg capsule 100 mg PO 3XD 07/31/24 08/10/24 History nicotine 14 mg/24 hr daily 1 patch topical 1XD 07/31/24 08/10/24 History transdermal patch omeprazole 40 mg capsule,delayed 40 mg PO 2XD 07/31/24 08/10/24 History release ursodiol 500 mg tablet 500 mg PO 2XD 07/31/24 08/10/24 History acamprosate 333 mg tablet,delayed See Rx Instructions .Route 08/03/24 08/10/24 Rx release .COMPLEX #0 tabs venlafaxine 37.5 mg 37.5 mg PO DAILY #30 caps 08/03/24 08/10/24 Rx capsule,extended release 24 hr (Effexor XR) Hospital Stay Data Consultations 08/10/24 13:58 ED Decision to Admit Stat 08/11/24 10:13 Consult Behavioral Health Liaison Routine Pending Results Patient Have Any Pending Studies at Discharge: No Total Time Total Time Spent Total Time Spent (In Minutes): 35
== END 2024-08-14 19:00 | disposition left against medical advice (07) | DRG 894 ==
LOC: ED 09:35 → SUATTDRO 14:39 → EDINP 14:39 → 2W 20:19 → 4W 08-11 14:31